=== PATIENT | female | born 1955 | race Caucasian/White ===

== ENCOUNTER 2022-09-15 17:52 | Inpatient (IN) | payer OTHER ==
[2022-09-15 18:30] LABS: Absolute Lymphocytes (CBC) 1.2 K/uL (0.7-4.9); Lymphocytes % 11.6 % (15.3-44.8); MCV 96.9 fL (80-100); MPV 9.4 fL (7.6-11.3)
[2022-09-15 18:31] LABS: Protime INR 0.99
--- NOTE | 2022-09-15 18:42 | RAD REPORT ---
EXAM DESCRIPTION: RAD - Chest Single View - 09/15/2022 6:25 pm CLINICAL HISTORY: COUGH COMPARISON: None TECHNIQUE: AP portable chest image was obtained 09/15/2022 6:25 pm . FINDINGS: Lung volumes are low. Bilateral small a moderate sized pleural effusions are present obscu ring the heart borders and hemidiaphragms. Interstitial opacification is present. Heart size appears to be within range of normal. Upper lobe vasculature also within range of normal. No pneumothorax. No acute bony abnormality seen. No acute aortic findings suspected. IMPRESSION: Small to moderate bilateral pleural effusions with interstitial edema and some patchy al veolar opacification. Pattern is typically failure/volume overload. The heart is not abnormally enlarged and this could be noncardiogenic edema process.
[2022-09-15] MEDS ORDERED: FUROSEMIDE 40 MG/4 ML VIAL ONE (18:49)
[2022-09-15 18:54] LABS: Albumin 3.2 g/dL (3.4-5.0); Bilirubin Direct 0.1 mg/dL (0-0.2); Bilirubin Total 0.4 mg/dL (0.2-1.0); Magnesium 1.9 mg/dL (1.8-2.4); Potassium 4.6 mmol/L (3.5-5.1); Protein, Total 6.3 g/dL (6.4-8.2)
[2022-09-15 18:56] LABS: Troponin High Sensitivity 153.4 pg/mL (<58.9)
[2022-09-15] MEDS ORDERED: FUROSEMIDE 20 MG/ 2ML VIAL ONE (18:59)
--- NOTE | 2022-09-15 19:05 | EDPHYS ---
Physician Documentation [facility] Name: Josselin Rowley Age: 67 yrs Sex: Female : 1955 Arrival Date: 09/15/2022 Time: 17:54 Bed 3 Private MD: Juan Luis Nugent C ED Physician Mj Porter HPI: 09/15 18:32 This 67 yrs old Female presents to ER via Wheelchair with complaints of concepcion Breathing Difficulty, Leg Swelling. 18:32 The patient has shortness of breath at rest, with light activity. Onset: The concepcion symptoms/episode began/occurred 3 day(s) ago. Duration: The symptoms are continuous, and are steadily getting worse. The patient's shortness of breath is aggravated by exertion, light activity, supine position. Associated signs and symptoms: Pertinent positives: non-productive cough, dizziness. Severity of symptoms: At their worst the symptoms were moderate in the emergency department the symptoms are unchanged. The patient has experienced similar episodes in the past, a few times. Historical: - Allergies: 17:57 Sulfa (Sulfonamide Antibiotics); aa5 - PMHx: 17:57 Diabetes mellitus; Kidney problem; Hypertensive disorder; aa5 - Immunization history:: Adult Immunizations unknown. - Social history:: Smoking status: Patient denies any tobacco usage or history of. - Family history:: not pertinent. ROS: 18:35 Constitutional: Negative for fever, chills, and weight loss, Eyes: Negative for injury, concepcion pain, redness, and discharge, ENT: Negative for injury, pain, and discharge, Neck: Negative for injury, pain, and swelling, Abdomen/GI: Negative for abdominal pain, nausea, vomiting, diarrhea, and constipation, Back: Negative for injury and pain, : Negative for injury, bleeding, discharge, and swelling, Skin: Negative for injury, rash, and discoloration, Neuro: Negative for headache, weakness, numbness, tingling, and seizure, Psych: Negative for depression, anxiety, suicide ideation, homicidal ideation, and hallucinations, Allergy/Immunology: Negative for hives, rash, and allergies, Endocrine: Negative for neck swelling, polydipsia, polyuria, polyphagia, and marked weight changes, Hematologic/Lymphatic: Negative for swollen nodes, abnormal bleeding, and unusual bruising. 18:35 Cardiovascular: Positive for edema, palpitations. 18:35 Respiratory: Positive for cough, dyspnea on exertion, orthopnea, shortness of breath, on exertion. 18:35 MS/extremity: Positive for swelling, tenderness. 18:35 Skin: Positive for pallor. Exam: 18:35 Constitutional: This is a well developed, well nourished patient who is awake, alert, concepcion and in no acute distress. Head/Face: Normocephalic, atraumatic. Eyes: Pupils equal round and reactive to light, extra-ocular motions intact. Lids and lashes normal. Conjunctiva and sclera are non-icteric and not injected. Cornea within normal limits. Periorbital areas with no swelling, redness, or edema. ENT: Nares patent. No nasal discharge, no septal abnormalities noted. Tympanic membranes are normal and external auditory canals are clear. Oropharynx with no redness, swelling, or masses, exudates, or evidence of obstruction, uvula midline. Mucous membranes moist. Neck: Trachea midline, no thyromegaly or masses palpated, and no cervical lymphadenopathy. Supple, full range of motion without nuchal rigidity, or vertebral point tenderness. No Meningismus. Chest/axilla: Normal chest wall appearance and motion. Nontender with no deformity. No lesions are appreciated. Cardiovascular: Regular rate and rhythm with a normal S1 and S2. No gallops, murmurs, or rubs. Normal PMI, no JVD. No pulse deficits. Abdomen/GI: Soft, non-tender, with normal bowel sounds. No distension or tympany. No guarding or rebound. No evidence of tenderness throughout. Back: No spinal tenderness. No costovertebral tenderness. Full range of motion. Female : Normal external genitalia. Neuro: Awake and alert, GCS 15, oriented to person, place, time, and situation. Cranial nerves II-XII grossly intact. Motor strength 5/5 in all extremities. Sensory grossly intact. Cerebellar exam normal. Normal gait. Psych: Awake, alert, with orientation to person, place and time. Behavior, mood, and affect are within normal limits. 18:35 ECG was reviewed by the Attending Physician. 18:35 Respiratory: the patient does not display signs of respiratory distress, Respirations: labored breathing, that is mild, Breath sounds: decreased breath sounds, that are moderate, are located in both bases, rhonchi, that are mild, are scattered, stridor, is not appreciated, + upper airway congestion. Respiratory rate: 30 Vital Signs: 17:57 BP 133 / 55; Pulse 81; Resp 34 S; Temp 97.7(TE); Pulse Ox 74% on R/A; Weight 79.38 kg aa5 (R); Height 4 ft. 11 in. (149.86 cm) (R); 17:58 Resp 30 S; Pulse Ox 98% on Non-rebreather mask; aa5 18:00 BP 133 / 50; Pulse 79; Resp 28; Pulse Ox 100% on 15% Non-rebreather mask; mb9 18:30 BP 109 / 71; Pulse 80; Resp 26; Pulse Ox 100% on 15% Non-rebreather mask; mb9 18:53 BP 113 / 69; Pulse 79; Resp 24; Pulse Ox 100% on 15% Non-rebreather mask; mb9 19:00 BP 101 / 63; Pulse 76; Resp 29; Pulse Ox 100% on 15% Non-rebreather mask; mb9 19:32 BP 119 / 58; Pulse 74; Resp 20 A; Pulse Ox 99% on BiPAP; Pain 0/10; aa9 17:57 Body Mass Index 35.35 (79.38 kg, 149.86 cm) aa5 MDM: 17:57 Patient medically screened. concepcion 18:38 Differential diagnosis: Anemia Anxiety Reaction asthma, Bronchitis CHF exacerbation, concepcion Myocardial Infarction pneumonia, Pneumothorax pulmonary edema, reactive airway disease. Antibiotic administration: Not indicated, the patient does not have an appreciated infiltrate. The patient's Wells Deep Vein Thrombosis Score was calculated as follows: Total Score: 0-2 Pts- Low Risk. The patient's pulmonary embolism risk score was calculated as follows: Total Score: 0-2 points. This patient was found to be at low risk for a pulmonary embolism by using the Well's assessment criteria. Immunization status: Pneumococcal vaccine: Influenza vaccine: Data reviewed: vital signs, nurses notes, lab test result(s), EKG, radiologic studies, CT scan, plain films. Data interpreted: surveillance monitor: rate is 30 beats/min, rhythm is regular, Pulse oximetry: on room air is 98 %. Test interpretation: by ED physician or midlevel provider: ECG, plain radiologic studies. Counseling: I had a detailed discussion with the patient and/or guardian regarding: the historical points, exam findings, and any diagnostic results supporting the discharge/admit diagnosis, lab results, radiology results, the need for further work-up and treatment in the hospital. 09/15 18:11 Order name: Basic Metabolic Panel; Complete Time: 18:57 [facility] 09/15 18:11 Order name: CBC with Diff; Complete Time: 18:57 [facility] 09/15 18:11 Order name: LFT's; Complete Time: 18:57 [facility] 09/15 18:11 Order name: Magnesium; Complete Time: 18:57 [facility] 09/15 18:11 Order name: NT PRO-BNP; Complete Time: 18:57 [facility] 09/15 18:11 Order name: PT-INR; Complete Time: 18:57 [facility] 09/15 18:11 Order name: Troponin HS; Complete Time: 18:57 [facility] 09/15 18:11 Order name: XRAY Chest (1 view); Complete Time: 18:57 [facility] 09/15 18:11 Order name: SARS-COV-2 RT PCR (Document "Date of Onset" if Symptomatic); Complete Time: [facility] 20:25 09/15 18:11 Order name: Lipase; Complete Time: 18:57 [facility] 09/15 18:57 Order name: BIPAP [facility] 09/15 18:11 Order name: EKG; Complete Time: 18:12 [facility] 09/15 18:11 Order name: Cardiac monitoring; Complete Time: 18:22 [facility] 09/15 18:11 Order name: EKG - Nurse/Tech; Complete Time: 18:31 [facility] 09/15 18:11 Order name: IV Saline Lock; Complete Time: 18:22 [facility] 09/15 18:11 Order name: Labs collected and sent; Complete Time: 18:22 [facility] 09/15 18:11 Order name: O2 Per Protocol; Complete Time: 18:22 [facility] 09/15 18:11 Order name: O2 Sat Monitoring; Complete Time: 18:22 [facility] 09/15 18:32 Order name: [place]; Complete Time: 18:58 [facility] 09/15 19:19 Order name: CONS Physician Consult EDMS EC:35 Rate is 78 beats/min. Rhythm is regular. QRS [place] is Normal. ID interval is normal. QRS concepcion interval is normal. QT interval is normal. No Q waves. T waves are Normal. No ST changes noted. Clinical impression: NSR w/ Non-specific ST/T Changes and No evidence of ischemia. Interpreted by me. Reviewed by me. Administered Medications: 19:12 Drug: Lasix (furosemide) 40 mg Route: IVP; Site: left antecubital; mb9 19:19 Follow up: Response: No adverse reaction mb9 19:12 CANCELLED (Physician Discretion): Lasix (furosemide) 20 mg IVP once; give over 2 minutesmb9 20:06 Drug: Lovenox (enoxaparin) 40 mg Route: Sub-Q; Site: right lower abdomen; jb4 Disposition Summary: 09/15/22 19:05 Hospitalization Ordered Hospitalization Status: Inpatient Admission concepcion Provider: Juan Luis Nugent cha Location: Telemetry/MedSurg (Inpatient) concepcion Condition: Fair concepcion Problem: new concepcion Symptoms: have improved concepcion Bed/Room Type: Standard concepcion Room Assignment: 208(09/15/22 20:46) vc1 Diagnosis - Dyspnea concepcion - Unspecified combined systolic (congestive) and diastolic (congestive) heart failure concepcion - Hypoxemia concepcion - Acute kidney failure, unspecified concepcion - Anemia, unspecified concepcion - Type 1 diabetes mellitus with hyperglycemia concepcion - Essential (primary) hypertension concepcion - Abnormal serum enzyme level, unspecified - ELEVATED TROPONIN concepcion Forms: - Medication Reconciliation Form concepcion - SBAR form concepcion Signatures: Dispatcher [employer] EDMj Donohue MD MD cha Nieto, Roman, MD MD rn Calderon, Audri, RN RN aa5 Dario Delgado RN RN jb4 Pearl Spicer RN RN vc1 Mee Hsu PA-C PA-C sb4 Keeley Preston RN RN mb9 Corrections: (The following items were deleted from the chart) 19:12 18:57 Lasix (furosemide) 20 mg IVP once; give over 2 minutes ordered. concepcion mb9 20:46 19:05 concepcion vc1
--- NOTE | 2022-09-15 19:05 | ER ---
Nurse's Notes [facility] Name: Josselin Rowley Age: 67 yrs Sex: Female : 1955 Arrival Date: 09/15/2022 Time: 17:54 Bed 3 Private MD: Juan Luis Nugent C Diagnosis: Dyspnea;Unspecified combined systolic (congestive) and diastolic (congestive) heart failure;Hypoxemia;Acute kidney failure, unspecified;Anemia, unspecified;Type 1 diabetes mellitus with hyperglycemia;Essential (primary) hypertension;Abnormal serum enzyme level, unspecified-ELEVATED TROPONIN Presentation: 09/15 17:57 Acuity: DAVID 1 aa5 17:57 Chief complaint: Patient states: SOB "for a few days", pt states "I saw Dr. Nugent a few aa5 days ago and he put me on Lasix". Pt 74% O2 sat. Pt reports slight dry cough, denies fever. Swelling to christiana legs noted. Coronavirus screen: shortness of breath. Ebola Screen: Patient denies travel to an Ebola-affected area in the 21 days before illness onset. Initial Sepsis Screen: Does the patient meet any 2 criteria? No. Patient's initial sepsis screen is negative. Does the patient have a suspected source of infection? No. Patient's initial sepsis screen is negative. Risk Assessment: Do you want to hurt yourself or someone else? Patient reports no desire to harm self or others. Onset of symptoms was September 2022. 17:57 Method Of Arrival: Wheelchair aa5 Historical: - Allergies: 17:57 Sulfa (Sulfonamide Antibiotics); aa5 - PMHx: 17:57 Diabetes mellitus; Kidney problem; Hypertensive disorder; aa5 - Immunization history:: Adult Immunizations unknown. - Social history:: Smoking status: Patient denies any tobacco usage or history of. - Family history:: not pertinent. Screenin:47 Abuse screen: Denies threats or abuse. Nutritional screening: No deficits noted. vc1 Tuberculosis screening: No symptoms or risk factors identified. Fall Risk None identified. Assessment: 18:00 General: Appears distressed, uncomfortable, Behavior is cooperative, appropriate for mb9 age, anxious. 18:00 Pain: Denies pain. Neuro: Level of Consciousness is awake, alert, obeys commands, mb9 Oriented to person, place, time, situation, Appropriate for age Plater Supervisor are equal bilaterally. Cardiovascular: Reports fatigue, shortness of breath, Heart tones S1 S2 present Rhythm is regular Chest pain is denied. Respiratory: Airway is patent Respiratory effort is labored, Respiratory pattern is tachypnea Breath sounds are clear bilaterally. Parent/caregiver reports the patient having shortness of breath cough that is since the past couple days. GI: Abdomen is round Bowel sounds present X 4 quads. Abd is soft and non tender X 4 quads. Reports nausea. : No signs and/or symptoms were reported regarding the genitourinary system. EENT: No signs and/or symptoms were reported regarding the EENT system. Derm: Skin is intact, Skin is clammy, Skin is pale, Skin temperature is cool. Musculoskeletal: Range of motion: intact in all extremities. 18:00 Reassessment: pt placed on non-rebreather 15 L/min. mb9 19:06 Reassessment: RT at bedside placing pt on bipap. 9 19:18 Reassessment: gave report to oncoming nurse EMMA Pollock. mb9 19:28 General: Appears uncomfortable, obese, Behavior is calm, cooperative, appropriate for aa9 age. Pain: Denies pain. Neuro: Level of Consciousness is awake, alert, obeys commands, Oriented to person, place, time, situation, Appropriate for age. Cardiovascular: Patient's skin is warm and dry. Edema is 1+ to left midcalf, left ankle, left foot, left toes, right midcalf, right ankle, right foot and right toes. Respiratory: Airway is patent Respiratory effort is even, unlabored, Patient placed on BiPAP:. GI: Abdomen is obese. : Corado in place. EENT: No signs and/or symptoms were reported regarding the EENT system. Derm: Skin is intact. Musculoskeletal: Range of motion: intact in all extremities. Vital Signs: 17:57 BP 133 / 55; Pulse 81; Resp 34 S; Temp 97.7(TE); Pulse Ox 74% on R/A; Weight 79.38 kg aa5 (R); Height 4 ft. 11 in. (149.86 cm) (R); 17:58 Resp 30 S; Pulse Ox 98% on Non-rebreather mask; aa5 18:00 BP 133 / 50; Pulse 79; Resp 28; Pulse Ox 100% on 15% Non-rebreather mask; mb9 18:30 BP 109 / 71; Pulse 80; Resp 26; Pulse Ox 100% on 15% Non-rebreather mask; mb9 18:53 BP 113 / 69; Pulse 79; Resp 24; Pulse Ox 100% on 15% Non-rebreather mask; mb9 19:00 BP 101 / 63; Pulse 76; Resp 29; Pulse Ox 100% on 15% Non-rebreather mask; mb9 19:32 BP 119 / 58; Pulse 74; Resp 20 A; Pulse Ox 99% on BiPAP; Pain 0/10; aa9 17:57 Body Mass Index 35.35 (79.38 kg, 149.86 cm) aa5 ED Course: 17:54 Patient arrived in ED. am2 17:55 Juan Luis Nugent MD is Private Physician. am2 17:57 Mj Porter MD is Attending Physician. concepcion 17:57 Arm band placed on. aa5 17:57 Patient has correct armband on for positive identification. Placed in gown. Bed in low aa5 position. Call light in reach. Side rails up X2. Client placed on continuous cardiac and pulse oximetry monitoring. NIBP monitoring applied. 18:21 Triage completed. aa5 18:21 Keeley Preston, RN is Primary Nurse. mb9 18:21 Inserted saline lock: 20 gauge in left antecubital area, using aseptic technique. Blood mb9 collected. 18:22 Basic Metabolic Panel Sent. mb9 18:22 CBC with Diff Sent. mb9 18:22 LFT's Sent. mb9 18:22 Magnesium Sent. mb9 18:22 NT PRO-BNP Sent. mb9 18:22 PT-INR Sent. mb9 18:22 Troponin HS Sent. mb9 18:22 Lipase Sent. mb9 18:27 XRAY Chest (1 view) In Process Unspecified. EDMS 18:37 EKG done, by ED staff, reviewed by Mj Porter MD. mb9 19:01 Corado cath inserted, using sterile technique, 16 Fr., by ak, balloon inflated, to mb9 gravity drainage, clamped. returned clear yellow urine. Patient tolerated well. 19:03 Juna Luis Nugent MD is Hospitalizing Provider. concepcion 19:19 SARS-COV-2 RT PCR (Document "Date of Onset" if Symptomatic) Sent. mb9 19:19 BIPAP Sent. 9 21:47 No provider procedures requiring assistance completed. Patient admitted, IV remains in vc1 place. Administered Medications: 19:12 Drug: Lasix (furosemide) 40 mg Route: IVP; Site: left antecubital; mb9 19:19 Follow up: Response: No adverse reaction 9 19:12 CANCELLED (Physician Discretion): Lasix (furosemide) 20 mg IVP once; give over 2 minutes9 20:06 Drug: Lovenox (enoxaparin) 40 mg Route: Sub-Q; Site: right lower abdomen; jb4 Medication: 21:48 VIS not applicable for this client. 1 Outcome: 19:05 Decision to Hospitalize by Provider. concepcion 21:47 Admitted to Med/surg accompanied by tech, via stretcher, room 208, Report called to 1 EMMA Vargas 21:47 Condition: good 21:47 Instructed on the need for admit. 21:48 Patient left the ED. [facility] Signatures: Dispatcher [employer] EDMS Mj Porter MD MD cha Calderon, Audri, RN RN connie5 Dario Delgado RN RN jb4 Lima Moreira Vanessa, RN RN vc1 Maia Brice RN RN connie9 Keeley Preston RN RN mb9 Corrections: (The following items were deleted from the chart) 18:28 17:54 Chief complaint: Patient states: SOB "for a few days", pt states "I saw Dr. Jovanna sood a few days ago and he put me on Lasix". Pt 74% O2 sat. aa5 18:31 17:54 Acuity: DAVID 1 aa5 aa5 18:31 17:54 Chief complaint: Patient states: SOB "for a few days", pt states "I saw Dr. Jovanna sood a few days ago and he put me on Lasix". Pt 74% O2 sat. Pt reports slight dry cough, denies fever. Swelling to christiana legs noted. aa5 18:31 17:54 Risk Assessment: Do you want to hurt yourself or someone else? Patient reports no aa5 desire to harm self or others. aa5 18:31 17:54 Initial Sepsis Screen: Does the patient meet any 2 criteria? No. Patient's aa5 initial sepsis screen is negative. Does the patient have a suspected source of infection? No. Patient's initial sepsis screen is negative. [facility] 18: 17:54 Onset of symptoms was September 2022 [place] [id number] : 17:54 Ebola Screen: Patient denies travel to an Ebola-affected area in the 21 days [facility] before illness onset. [facility] 18: 17:54 Coronavirus screen: shortness of breath, [place] [id number] 18: 17:54 Method Of Arrival: Wheelchair [place] [id number] 18: 17:54 BP 133 / 55; Pulse 81bpm; Resp 34bpm; Spontaneous; Pulse Ox 74% RA; Temp 97.7F [facility] Temporal; 79.38 kg Reported; Height 4 ft. 11 in. Reported; BMI: 35.3; [facility] : 17:55 Resp 30bpm; Spontaneous; Pulse Ox 98% Non-rebreather mask; [place] [address] 18: 17:57 Resp 30bpm; Spontaneous; Pulse Ox 98% Non-rebreather mask; [place] [address] 19:04 19:01 General: Appears distressed, uncomfortable, Behavior is cooperative, appropriate mb9 for age, anxious, mb9 19:06 19:01 General: Appears distressed, uncomfortable, Behavior is cooperative, appropriate mb9 for age, anxious, mb9 19: 19:02 Pain: Denies pain. mb9 mb9 19: 19:02 Neuro: Level of Consciousness is awake, alert, obeys commands, Oriented to mb9 person, place, time, situation, Appropriate for age Plater Supervisor are equal bilaterally mb9 19: 19:02 Cardiovascular: Heart tones S1 S2 present Rhythm is regular Chest pain is denied mb9 mb9 19:06 19:02 Respiratory: Airway is patent Respiratory effort is labored, Respiratory pattern mb9 is tachypnea Breath sounds are clear bilaterally. Parent/caregiver reports the patient having shortness of breath cough that is since the past couple days mb9 19: 19:02 GI: Abdomen is round Bowel sounds present X 4 quads. Abd is soft and non tender X mb9 4 quads. Reports nausea, mb9 19: 19:02 : No signs and/or symptoms were reported regarding the genitourinary system. [id number] 19: 19:02 EENT: No signs and/or symptoms were reported regarding the EENT system. [place] [address] 19:02 Derm: Skin is intact, Skin is clammy, Skin is pale, Skin temperature is cool [place] [address] 19:02 Musculoskeletal: Range of motion: intact in all extremities, [place] [address] 18:00 Cardiovascular: Heart tones S1 S2 present Rhythm is regular Chest pain is denied [place] [id number]
[2022-09-15] MEDS ORDERED: ENOXAPARIN 40 MG/0.4 ML SQ ONE (20:04)
[2022-09-15] MEDS ORDERED: ALBUTEROL 2.5 MG/3 ML NEB SOL NEB PRN (22:32)
[2022-09-15] MEDS ORDERED: GLUCAGON 1 MG/VIAL IM PRN (22:32)
[2022-09-15] MEDS: lisinopriL 5 MG TAB PO SCH (22:32)
[2022-09-15] MEDS ORDERED: ACETAMINOPHEN 500 MG TAB PO PRN (22:32)
[2022-09-15] MEDS: INSULIN -REGULAR HUMAN 50 UNIT/0.5 ML ML SQ SCH (22:32)
[2022-09-15] MEDS ORDERED: D50W 25 GM/50 ML SYRINGE IV PRN (22:32)
[2022-09-15] MEDS ORDERED: IPRATROPIUM BROM 0.5MG/2.5ML NEB PRN (22:32)
[2022-09-15] MEDS ORDERED: D10W 125 ML IV PRN (22:47)
[2022-09-15] MEDS ORDERED: FAMOTIDINE 20 MG/2 ML VIAL IV ONE (23:00)
[2022-09-16] MEDS: ACETAMINOPHEN 325 MG TABLET PO PRN ×2 (00:09→21:17)
[2022-09-16 04:11] LABS: Absolute Lymphocytes (CBC) 1.3 K/uL (0.7-4.9); Hematocrit 29.1 % (36.0-45.0); Lymphocytes % 13.7 % (15.3-44.8); MCV 97.7 fL (80-100); RBC Red Blood Cell Count 2.98 M/uL (3.86-4.86)
[2022-09-16 04:26] LABS: Potassium 4.5 mmol/L (3.5-5.1)
[2022-09-16] MEDS: carvediloL 12.5 MG TAB PO SCH ×2 (06:00→17:27)
[2022-09-16] MEDS: INSULIN -REGULAR HUMAN 50 UNIT/0.5 ML ML SQ SCH ×4 (07:30→21:00)
[2022-09-16 07:48] LABS: Ferritin 37.1 ng/mL (8-388); Folic Acid, (Folate) 16.4 ng/mL (3.1-17.5); Thyroid Stimulating Hormone 1.89 uIU/mL (0.360-3.740)
[2022-09-16 07:51] LABS: Troponin High Sensitivity 690.9 pg/mL (<58.9)
--- NOTE | 2022-09-16 07:55 | RAD REPORT ---
EXAM DESCRIPTION: RAD - Chest Single View - 09/16/2022 6:37 am CLINICAL HISTORY: Chest Pain COMPARISON: Portable 09/15/2022 TECHNIQUE: AP portable chest image was obtained 09/16/2022 6:37 am . FINDINGS: Lung volumes remain low. Bilateral pleural effusions are still present. Interstitial edema or infiltrate pattern has improved. Heart size remains normal range. No pneumothorax. IMPRESSION: Interval decrease in the interstitial edema or infiltrate pattern seen on prior day imag ing. Bilateral pleural effusions remain.
[2022-09-16] MEDS ORDERED: FAMOTIDINE 20 MG/2 ML VIAL IV SCH (09:00)
[2022-09-16] MEDS ORDERED: FUROSEMIDE 20 MG/ 2ML VIAL IV SCH (09:00)
[2022-09-16] MEDS: lisinopriL 5 MG TAB PO SCH ×2 (09:05→21:14)
[2022-09-16] MEDS: ENOXAPARIN 30 MG/0.3 ML SQ SCH (09:05)
[2022-09-16] MEDS: POTASSIUM 25 MEQ EFFERV TAB PO SCH (09:05)
[2022-09-16] MEDS: FUROSEMIDE 40 MG/4 ML VIAL IV SCH ×2 (09:05→16:39)
[2022-09-16] MEDS: AMLODIPINE 5 MG TAB PO SCH (09:05)
[2022-09-16] MEDS ORDERED: ASPIRIN EC 81 MG TAB PO ONE (11:22)
--- NOTE | 2022-09-16 14:15 | EKG ---
Test Date: 2022-09-16 Test Time: 09:21:50 [employer] Head: LULY MEASUREMENT RESULTS: Intervals: Rate: 79 PA: 124 QRSD: 82 QT: 370 QTc: 424 [place]: P: 53 PA: 124 QRS: 48 T: 36 INTERPRETIVE STATEMENTS: Normal sinus rhythm Nonspecific ST and T wave abnormality Abnormal ECG Compared to ECG 09/15/2022 18:32:10 No significant changes Electronically Signed On 09-16-22 14:14:58 CDT by Jaxson Grover
--- NOTE | 2022-09-16 14:17 | EKG ---
Test Date: 2022-09-15 Test Time: 18:32:10 Contact Center Director: MB MEASUREMENT RESULTS: Intervals: Rate: 78 NH: 136 QRSD: 82 QT: 388 QTc: 442 [place]: P: 52 NH: 136 QRS: 52 T: 35 INTERPRETIVE STATEMENTS: Normal sinus rhythm Nonspecific ST and T wave abnormality Abnormal ECG Compared to ECG 02/24/2009 09:27:15 ST (T wave) deviation now present Electronically Signed On 09-16-22 14:16:14 CDT by Jaxson Grover
[2022-09-16] MEDS ORDERED: IPRATROPIUM BROM 0.5MG/2.5ML NEB PRN (15:00)
[2022-09-16] MEDS ORDERED: ALBUTEROL 2.5 MG/3 ML NEB SOL NEB PRN (15:00)
[2022-09-16] MEDS: ATORVASTATIN 80 MG TAB PO SCH (21:14)
[2022-09-17 06:05] LABS: Magnesium 2.3 mg/dL (1.8-2.4); Potassium 4.1 mmol/L (3.5-5.1)
[2022-09-17 06:08] LABS: Troponin High Sensitivity 529.9 pg/mL (<58.9)
[2022-09-17] MEDS: carvediloL 12.5 MG TAB PO SCH ×2 (06:08→17:04)
--- NOTE | 2022-09-17 06:54 | ECHO ---
HEIGHT: 4 ft 11 in WEIGHT: 175 lb 0 oz DATE OF STUDY: 09/16/[address]: Mj Porter MD 2-DIMENSIONAL: YES M.MODE: YES DOPPLER: YES COLOR FLOW: YES TDS: PORTABLE: YES DEFINITY: BUBBLE STUDY: DIAGNOSIS: CONGESTIVE HEART FAILURE CARDIAC HISTORY: CATHERIZATION: SURGERY: PROSTHETIC VALVE: PACEMAKER: MEASUREMENTS (cm) DIASTOLIC (NORMALS) SYSTOLIC (NORMALS) IVSd 1.1 (0.6-1.2) LA Diam 3.9 (1.9-4.0) LVEF 59% LVIDd 4.5 (3.5-5.7) LVIDs 3.1 (2.0-3.5) %FS 31% LVPWd 1.1 (0.6-1.2) Ao Diam 2.5 (2.0-3.7) 2 DIMENSIONAL ASSESSMENT: RIGHT ATRIUM: NORMAL LEFT ATRIUM: ENLARGED RIGHT VENTRICLE: NORMAL LEFT VENTRICLE: NORMAL TRICUSPID VALVE: NORMAL MITRAL VALVE: MODERATE MITRAL REGURGITATION PULMONIC VALVE: NORMAL AORTIC VALVE: NORMAL PERICARDIAL EFFUSION: NONE AORTIC ROOT: NORMAL LEFT VENTRICULAR WALL MOTION: NORMAL DOPPLER/COLOR FLOW: SEE BELOW COMMENTS: NORMAL LEFT VENTRICULAR EJECTION FRACTION 55-60% WITH NORMAL WALL MOTION. LEFT ATRIAL ENLARGEMENT. MODERATE MITRAL REGURGITATION. MODERATE DIASTOLIC DYSFUNCTION. TECHNOLOGIST: MIRZA LOPEZ
[2022-09-17] MEDS: INSULIN -REGULAR HUMAN 50 UNIT/0.5 ML ML SQ SCH ×4 (07:30→20:23)
[2022-09-17] MEDS: POTASSIUM 25 MEQ EFFERV TAB PO SCH (08:43)
[2022-09-17] MEDS: FUROSEMIDE 40 MG/4 ML VIAL IV SCH ×2 (08:43→17:04)
[2022-09-17] MEDS: ASPIRIN EC 81 MG TAB PO SCH (08:43)
[2022-09-17] MEDS: AMLODIPINE 5 MG TAB PO SCH (08:44)
[2022-09-17] MEDS: lisinopriL 5 MG TAB PO SCH ×2 (08:44→20:18)
[2022-09-17] MEDS: ENOXAPARIN 30 MG/0.3 ML SQ SCH (08:45)
--- NOTE | 2022-09-17 14:00 | PN ---
Date of Progress Note: 09/17/2022 Subjective: Patient was seen this morning for followup. No new complaints, problems reported by her . She was on BiPAP all night until this morning. It was changed to nasal cannula oxygen and when I saw her, she was on 5 L/minute nasal cannula oxygen. She was maintaining adequate oxygenation around 95% to 96% while I was in the room with her. Patient overall feels better. She has a Corado cathete r, which is draining clear yellow urine. Objective: Vital Signs: Reviewed. HEENT: Unremarkable. Lungs: Bilateral good equal air entry with diminished air entry in the lower lung merlos, not using any accessory muscles of respiration. Heart: Sounds normal. Abdomen: Soft. Bowel sounds normal. No guarding, rigidity, tenderness, distention. Extremities: Bilateral leg edema, less today compared to yesterday. Laboratory Data: Sodium 134, potassium 4.1, chloride 103, bicarb 24, BUN 44, creatinine 2.30. Tropo maria luisa today 529, yesterday was 690. Upon admission was 153. Her triglyceride today 117, total cholest sunny 152, LDL 83, HDL 46. Her vitamin B12 from yesterday was 280, folic acid 16.4. TSH 1.89 and her hemoglobin A1c was 6.5. Echocardiogram shows normal ejection fraction with diastolic dysfunction. Impression: 1.Chronic diastolic heart failure, with acute exacerbation. 2.Acute pulmonary edema. 3.Chronic kidney disease, stage 4. 4.Insulin-dependent diabetes mellitus. 5.Anemia due to chronic kidney disease. 6.Hypertension. Plan: I did review echocardiogram and lab findings with the patient. Her baseline creatinine is asaf und 1.5-1.6 and current hospital admission creatinine is ranging between 2.0-2.3. Her troponin level today looks better compared to yesterday, so we really believe that this is demand ischemia and not necessarily myocardial infarction at this point. We will continue to follow up with tool maker apprentice. Luma matos likely has probably some underlying coronary artery disease in view of her longstanding histor y of diabetes mellitus and other comorbidities including hypertension, hyperlipidemia, and chronic ki dney disease, so we did discuss about all those details today and we talked about 2 different ways to evaluate it. One is to do nuclear stress test, which is not most accurate or 100% sure way to deter mine the extent of the problem which is coronary artery disease that we are concerned about, that daphney ht be safer option for her instead of doing coronary angiogram, which puts her at risk of worsening o f the renal failure, but again decide all details that we have discussed with her today. I did discu ss all those details with Dr. Momin and we will continue to follow with tool maker apprentice to get recomme ndation as the time goes on. We will continue current diuretic therapy. Remove Corado catheter and w e will repeat blood work tomorrow. I will see her tomorrow for followup. GURJIT/MODL Voice ID: [id number] Report ID: [id number]
[2022-09-17] MEDS: ACETAMINOPHEN 325 MG TABLET PO PRN (15:59)
[2022-09-17] MEDS: ONDANSETRON 4 MG/2 ML VIAL IV PRN (15:59)
[2022-09-17] MEDS: ATORVASTATIN 80 MG TAB PO SCH (20:19)
--- NOTE | 2022-09-17 21:20 | CON ---
Date of Consultation: 09/16/2022 Reason For Consultation: Shortness of breath. History Of Present Illness: Ms. Rowley is 67 and has had a history of hypertension, diabetes, and ch ronic renal disease. Came in with congestive heart failure and she follows up with Dr. Nugent for her primary care. She also sees Dr. Gaytan for her renal failure. Came in with dyspnea on exertion. No chest pain reported, some diaphoresis. No nausea or vomiting. Has had some PND, orthopnea, and peda l edema. When I saw her, she had 99% O2 saturation, on CPAP, and she is already feeling better after gentle diuresis. Past Medical History: As stated above. Allergies: BACTRIM. Review of Systems: Negative. Social History: Negative. Family History: Noncontributory. Medications: At home include aspirin, Norvasc, Lipitor, Coreg, and Zestril. Physical Examination: General: She was very pleasant, in no acute distress. Sinus rhythm. Adequate O2 saturation, on gopal al cannula now. HEENT: Negative. Neck: Supple without any bruit, lymphadenopathy, JVD, or thyromegaly. Chest: Reveals some mild crackles. Cardiac: Regular rhythm and rate with S4 gallop. No murmurs or rubs. Abdomen: Benign. Extremities: Trace edema. Diagnostic Data: Showed her EKG was nonspecific. Chest x-ray showed mild failure. Hemoglobin is 9. 8. Sodium is 131. BNP was 11,000. Troponin was 153. Impression And Plan: 1.Acute congestive heart failure on chronic diastolic. Echocardiogram is pending. Continue present regimen. 2.Elevated troponin, probably secondary to demand ischemia from renal failure and congestive heart f ailure. 3.Hyponatremia, secondary to congestive heart failure. 4.Elevated BNP, secondary to congestive heart failure. 5.Mild anemia. 6.Chronic renal disease. 7.Diabetes, controlled. 8.Hypertension. She is presently now on inhalers, Norvasc, Coreg, Lovenox, Lasix, lisinopril, and p otassium. Echocardiogram is pending. I agree with her present regimen. The case was discussed with Dr. Nugent. If her creatinine is greater than 2 to see how she does with diuresis case was discussed with Dr. Nugent. I will continue to follow her. I will see what her echocardiogram shows. NB/NAN Voice ID: [id number] Report ID: [id number]
[2022-09-18 05:59] LABS: Absolute Lymphocytes (CBC) 1.3 K/uL (0.7-4.9); Hematocrit 27.6 % (36.0-45.0); Lymphocytes % 14.5 % (15.3-44.8); MCV 97.9 fL (80-100); MPV 9.3 fL (7.6-11.3); RBC Red Blood Cell Count 2.82 M/uL (3.86-4.86)
[2022-09-18 06:13] LABS: Magnesium 2.1 mg/dL (1.8-2.4); Potassium 4.7 mmol/L (3.5-5.1)
[2022-09-18] MEDS: carvediloL 12.5 MG TAB PO SCH ×2 (06:16→17:00)
[2022-09-18] MEDS: INSULIN -REGULAR HUMAN 50 UNIT/0.5 ML ML SQ SCH ×4 (07:30→20:48)
[2022-09-18] MEDS: ASPIRIN EC 81 MG TAB PO SCH (08:22)
[2022-09-18] MEDS: POTASSIUM 25 MEQ EFFERV TAB PO SCH (08:22)
[2022-09-18] MEDS: FUROSEMIDE 40 MG/4 ML VIAL IV SCH ×2 (08:23→17:00)
[2022-09-18] MEDS: AMLODIPINE 5 MG TAB PO SCH (08:23)
[2022-09-18] MEDS: ENOXAPARIN 30 MG/0.3 ML SQ SCH (08:23)
[2022-09-18] MEDS: lisinopriL 5 MG TAB PO SCH ×2 (08:23→20:44)
[2022-09-18] MEDS ORDERED: METOLAZONE 5 MG TABLET PO SCH (10:00)
[2022-09-18] MEDS: FLUTICASONE 50MCG NASAL SPRAY NAS SCH ×2 (10:13→20:44)
--- NOTE | 2022-09-18 10:57 | PN ---
Date of Progress Note: 09/17/2022 Ms. Rowley is a patient of Dr. Nugent, who came in with acute congestive heart failure, chronic diastol ic. Elevated troponin, presumably secondary to demand ischemia from renal failure and congestive hea rt failure. She also had hyponatremia, anemia, diabetes, hypertension, elevated BNP. Echocardiogram showed normal left ventricular ejection fraction with normal left ventricular size, moderate mitral regurgitation, and moderate diastolic dysfunction. Her ejection fraction was 59%. On 09/17/2022, al l vital signs were stable she was afebrile. Her last glucose was 172. O2 saturation was 94% on the nasal cannula. Creatinine, however, had gone up to 2.3. Her last troponin had come down from 690 to 529. Last medical regimen includes amlodipine, aspirin, Lipitor, Lovenox, Lasix, carvedilol, lisino pril. I will discuss the case further with Dr. Nugent, but I agree with her present regimen for now. Again, we may consider stopping the lisinopril because of her renal function. Again, I feel more com fortable down the road to do a Lexiscan and only do a heart catheterization if it is absolutely neces josue because of her renal function, but I will discuss the case further with Dr. Nugent. She can go ho me whenever it is okay with him. JARRELL/NAN Voice ID: [id number] Report ID: [id number]
--- NOTE | 2022-09-18 12:09 | PN ---
Date of Progress Note: 09/18/2022 Subjective: Patient was seen this morning for followup. No new complaints or problems reported. Reji nixon has not used any BiPAP since night before last. All day yesterday and last night, she remained on nasal cannula oxygen at 5 L/minute. Patient says last night while she was sleeping, respiratory ther apist and nurse woke her up because her oxygen saturation was around 83% and after asking her to take some deep breaths, her oxygen saturation did come back up. This morning when I saw her, she was sit ting in the chair with nasal cannula oxygen at 5 L/minute and throughout the time while I was in the room talking to her, her oxygen saturation has remained anywhere between 95% to 97% Physical Examination: Vital Signs: Reviewed. Weight: Today, her weight is 167 pounds. HEENT: Unremarkable. Lungs: Bilateral good equal air entry. Not using any accessory muscles of respiration. Diminished air entry with rales noted in lower lung merlos unchanged from yesterday. Heart: Sounds normal. Abdomen: Soft. Bowel sounds normal. No guarding, rigidity, tenderness, distention. Extremities: Bilateral leg edema, which is better compared to before. It is now about grade 1 pedal edema and about grade 2 edema of the dorsum feet. Laboratory Data: White count 9, hemoglobin 9.3, platelets 305. Sodium 134, potassium 4.7, chloride 102, bicarb 25, BUN 46, creatinine 2.21, glucose 200. Magnesium 2.1. Impression: 1.Congestive heart failure, chronic, diastolic, with acute exacerbation. 2.Chronic kidney disease, stage 4. 3.Insulin-dependent diabetes mellitus. 4.Hypertension. 5.Hyperlipidemia. 6.Anemia due to chronic kidney disease. 7.Probable coronary artery disease. Plan: We will go ahead and continue to follow with cake knocker. Continue aspirin. Continue curren t Lovenox for DVT prophylaxis. We will discontinue potassium. Continue IV Lasix 40 mg 2 times a day and give 1 dose of metolazone 2.5 mg p.o. x1 dose today. We will see her tomorrow for followup. Po ssible discharge to go home on Tuesday and by that time, we will decide whether she needs to go home w ith oxygen or not. We will repeat blood work tomorrow morning. GURJIT/MODL Voice ID: [id number] Report ID: [id number]
[2022-09-18] MEDS: ACETAMINOPHEN 325 MG TABLET PO PRN (15:49)
[2022-09-18] MEDS: ATORVASTATIN 80 MG TAB PO SCH (20:44)
[2022-09-19] MEDS: ACETAMINOPHEN 325 MG TABLET PO PRN (01:00)
[2022-09-19] MEDS: carvediloL 12.5 MG TAB PO SCH ×2 (05:26→17:13)
[2022-09-19 06:30] LABS: Magnesium 2.3 mg/dL (1.8-2.4); Potassium 4.3 mmol/L (3.5-5.1)
[2022-09-19] MEDS: INSULIN -REGULAR HUMAN 50 UNIT/0.5 ML ML SQ SCH ×4 (07:30→21:00)
[2022-09-19] MEDS: FLUTICASONE 50MCG NASAL SPRAY NAS SCH ×2 (08:19→21:34)
[2022-09-19] MEDS: ENOXAPARIN 30 MG/0.3 ML SQ SCH (08:19)
[2022-09-19] MEDS: lisinopriL 5 MG TAB PO SCH ×2 (08:20→21:38)
[2022-09-19] MEDS: FUROSEMIDE 40 MG/4 ML VIAL IV SCH ×2 (08:20→17:13)
[2022-09-19] MEDS: AMLODIPINE 5 MG TAB PO SCH (08:20)
[2022-09-19] MEDS: ASPIRIN EC 81 MG TAB PO SCH (08:20)
[2022-09-19] MEDS ORDERED: METOLAZONE 5 MG TABLET PO SCH (10:00)
--- NOTE | 2022-09-19 12:38 | PN ---
Date of Progress Note: 09/19/2022 Subjective: Patient was seen this morning for followup. Overall, she feels better. She is on nasal cannula oxygen at 3 L/minute as of yesterday morning and maintaining adequate oxygenation. When I w as in the room visiting her today, her oxygen saturation remained between 97% to 98% on 3 L nasal can nula oxygen. She reports that with fluticasone nasal spray, her nasal congestion problem has improve d. Intake and output records reviewed. Objective: Vital Signs: Reviewed. HEENT: Unremarkable. Lungs: Bilateral good equal air entry. No rales. Diminished air entry in the lung bases, but overa ll lung findings are better than before. Heart: Sounds normal. Abdomen: Soft. Bowel sounds normal. No guarding, rigidity, tenderness, distention. Extremities: Bilateral leg edema, unchanged from yesterday. Laboratory Data: Sodium 133, potassium 4.3, chloride 99, bicarb 27, BUN 48, creatinine 2.35, glucose 204. Magnesium 2.3. Impression: 1.Congestive heart failure, chronic, diastolic, with acute exacerbation. 2.Probable coronary artery disease. 3.Chronic kidney disease, stage 4. 4.Hypertension. 5.Type 1 diabetes mellitus. Plan: We will go ahead and continue current IV Lasix. Patient received 1 dose of metolazone 2.5 mg yesterday and we will give second dose today. Monitor intake, output, daily weight. We will repeat blood work tomorrow morning. I did lower her oxygen from 3 L down to 2 L/minute nasal cannula and in formed nurse that in about an hour or so as long as her oxygen saturation is more than 90%, try to we an off the oxygen today if possible. I will see her tomorrow morning for followup. Our plan is to p ossibly discharge her to go home tomorrow. Patient informed me that she is really not interested in any further cardiac intervention when I started talking to her about concern about underlying coronar y artery disease concerns. I informed her that Dr. Momin is planning to do stress test on an elect smiley outpatient basis, but she tells me that she really does not want to undergo any kind of further c ardiac intervention like stent placement or bypass surgery and I did inform her that obviously, she h as time to think about all those things and if she has normal stress test, that will give us more com fort, but if her stress test comes back abnormal, obviously she is left with 3 choices, one is medica l management trial with medications alone. Second option will be to do cardiac cath, which is defini tely riskier in her case because of the kidney disorder and there is a possibility that IV dye can ca use worsening of the chronic kidney disease including worsening to the extent that may require dialys is, but on other hand, if we do not do any of intervention and if she has underlying significant [place] artery disease and if she does not undergo any intervention like stent placement or bypass surge ry, then that in itself carries a risk of myocardial infarction or sudden cardiac . All these d etails were discussed with her and I informed her that ultimately she is the one who has to decide wh ich treatment she wants to go through and we will have to respect her decision. But, I want her to m deo informed decision and that is why all the details were provided to her today in presence of her kimmie dunlap. I will see her tomorrow for followup. GURJIT/MODL Voice ID: [id number] Report ID: [id number]
[2022-09-19] MEDS: ATORVASTATIN 80 MG TAB PO SCH (21:34)
[2022-09-20] MEDS: ACETAMINOPHEN 325 MG TABLET PO PRN (01:56)
[2022-09-20 04:13] LABS: Magnesium 2.2 mg/dL (1.8-2.4); Potassium 4.1 mmol/L (3.5-5.1)
[2022-09-20] MEDS: carvediloL 12.5 MG TAB PO SCH (06:37)
[2022-09-20] MEDS: ONDANSETRON 4 MG/2 ML VIAL IV PRN (06:38)
[2022-09-20] MEDS: INSULIN -REGULAR HUMAN 50 UNIT/0.5 ML ML SQ SCH ×2 (07:30→11:30)
[2022-09-20] MEDS: AMLODIPINE 5 MG TAB PO SCH (08:06)
[2022-09-20] MEDS: ASPIRIN EC 81 MG TAB PO SCH (08:06)
[2022-09-20] MEDS: ENOXAPARIN 30 MG/0.3 ML SQ SCH (08:06)
[2022-09-20] MEDS: lisinopriL 5 MG TAB PO SCH (08:06)
[2022-09-20] MEDS: FUROSEMIDE 40 MG/4 ML VIAL IV SCH (08:06)
[2022-09-20] MEDS: FLUTICASONE 50MCG NASAL SPRAY NAS SCH (08:07)
--- NOTE | 2022-09-20 08:39 | HP ---
Date of Admission: 09/16/2022 Chief Complaint: Shortness of breath. History Of Present Illness: This is a 67-year-old female patient who came into office on 09/14/2022 with 2 weeks history of leg swelling and about 5 days' history of shortness of breath with activity and at times having shortness of breath at rest as well. Denies any chest pain. After she was evaluated at the office, she was diagnosed as having congestive heart failure problem and I requested her to be admitted to the hospital, but the patient refused, so she was started on Lasix 40 mg daily and plan was to do outpatient workup including echocardiogram, Cardiology consult, and she was advised to come back to see me in 1 week and instruction to go to the emergency room if she feels worse. Yesterday, she called office and reported that she was not feeling any better with her symptoms and she was advised to come to emergency room. After she was evaluated in the ER, she was admitted to the hospital. Her oxygen saturation was in the 80% range in the emergency room and she was started on BiPAP for acute respiratory failure with hypoxia and she was admitted to the hospital. This morning, I saw her and her was present with her at bedside. Allergies: TO SULFA, CAUSING SHORTNESS OF BREATH. Medications: Atorvastatin 40 mg daily at bedtime, amlodipine 10 mg daily, aspirin 81 mg daily, Caltrate plus D 1 tablet 2 times a day, furosemide 40 mg daily, carvedilol 25 mg 2 times a day, NovoLog insulin, lisinopril 5 mg 2 times a day. Review of Systems: Respiratory: As mentioned above. Cardiovascular: As mentioned above. All other systems reviewed and negative. Past Medical History: Significant for glaucoma, diabetic retinopathy, type 1 diabetes diagnosed in 1962 when she was 8 years old, hypertension, hyperlipidemia, peripheral vascular disease, chronic kidney disease with baseline creatinine around 1.5. Past Surgical History: Cataract surgeries and hysterectomy. Family History: Father had diabetes and cancer of esophagus. Mother, heart disease. Social History: Negative for smoking. No alcohol use. Physical Examination: Vital Signs: Height 4 feet 11 inches, weight 175 pounds. Temperature 97.5, pulse 77, respiratory rate 18, blood pressure 136/54, oxygen saturation 97% on 40% FiO2, on BiPAP. General: Awake, alert, oriented, not in distress. HEENT: Head atraumatic, normocephalic. Conjunctivae nonerythematous. Sclerae white. Mouth, no thrush or edema noted. Ears/Nose, no mass, lesion, discharge noted. Neck: Supple. No JVD, lymph nodes, bruit, thyromegaly noted. Lungs: Bilateral good equal air entry. Not using any accessory muscles of respiration. The patient has diminished air entry with some rales in lower lung merlos. Heart: Normal heart sounds, no murmur or gallop. Abdomen: Soft, bowel sounds normal. No guarding, rigidity, tenderness, mass, hepatosplenomegaly, distention, or bruit noted. Extremities: Bilateral 2+ leg edema. Skin: No rash, ulcer, cellulitis. Lymphatics: No lymph node enlargement in neck, supraclavicular, infraclavicular region. Neuro: No focal neurological deficit. Chest: Unremarkable. External Genitalia: Deferred. Rectal: Deferred. Laboratory Data: Yesterday white count 10.10, hemoglobin is 10.5, platelets 354. This morning white count 9.2, hemoglobin 9.8, platelets 320. Yesterday sodium 131, potassium 4.6, chloride 101, bicarb 21, BUN 31, creatinine 2.09, glucose 180. Liver function tests unremarkable. Troponin 153. ProBNP 9603 and this morning, ProBNP 11,102. Sodium 131, potassium 4.5, chloride 100, bicarb 19, BUN 36, creatinine 2.09, glucose 193. Troponin 600. Chest x-ray shows [id number] bilateral pleural effusion with interstitial edema and patchy alveolar opacification. Impression: 1. Pulmonary edema. 2. Congestive heart failure. 3. Chronic kidney disease, stage 4. 4. Anemia due to chronic kidney disease. 5. Hypertension. 6. Type 1 diabetes mellitus with diabetic retinopathy. 7. Type 1 diabetes mellitus with diabetic chronic kidney disease. 8. Hyperlipidemia. 9. Peripheral vascular disease. Plan: We will go ahead and admit the patient to hospital for further evaluation and management of this problem. The patient is appropriate for inpatient and is expected to spend 2 midnights in hospital. We will consult triage nurse, Dr. Momin, and I did discuss details with him. We will continue aspirin. Patient is on Lovenox 40 mg subcutaneous injection daily and at this time, Dr. Momin, will decide further cardiac intervention whether to do cardiac cath or stress test depending on patient's condition, but at this point, he has asked me not to start any Plavix. In case, if patient needs any bypass surgery or any intervention like that, then, she will have to wait for about 10 days in case if she is on Plavix and he does not suggest any higher dose of Lovenox at this point, so we will continue current medical management per order. Continue high- dose statin therapy aspirin, IV Lasix will be given at 40 mg 2 times a day per order. Monitor intake, output, daily weight. We will monitor electrolyte, renal function. Diabetes will be managed with sliding scale insulin. Echo with Doppler will be done. We will follow up on that. I will see her tomorrow for followup. Plan of treatment discussed with her who was at bedside. GURJIT/NAN Voice ID: [id number]
[2022-09-20] MEDS ORDERED: METOLAZONE 2.5 MG TABLET PO SCH (10:00)
[2022-09-20 10:59] VITALS: BMI 34.2
[2022-09-20 12:09] VITALS: BP 117/52; TEMP 97.6
[2022-09-20 13:09] VITALS: O2SAT 92
--- NOTE | 2022-09-21 08:41 | DS ---
Date of Discharge: 09/20/2022 Disposition: Discharged to go home. Physical Examination: HEENT: Unremarkable. Lungs: Clear to auscultation. No wheezing. No rales. Heart: Sounds normal. Abdomen: Soft. Bowel sounds normal. No guarding, rigidity, tenderness, distention. Extremities: Bilateral trace to grade 1 pedal edema. Laboratory Data: Echocardiogram done during this hospitalization shows ejection fraction 59%. Initi al CBC upon admission; white count was 10.10, hemoglobin was 10.5, platelets 354. Last CBC from 03/2022; white count 9, hemoglobin 9.3, platelets 305. Initial chemistry upon admission; sodium 131, potassium 4.6, chloride 101, bicarb 21, BUN 31, creatinine 2.09, glucose 180. Liver function tests u nremarkable. Initial troponin 153.4, second troponin 690.9, third troponin 529.9. Last chemistry to day; sodium 133, potassium 4.1, chloride 98, bicarb 28, BUN 51, creatinine 2.36, glucose 207, magnesi um 2.2. Hospital Course: This is a 67-year-old pleasant female patient, came into emergency room with compla ints of shortness of breath and leg swelling. Please see dictated H and P for more information. Aft er the patient was evaluated in the emergency room, she was admitted to the hospital with congestive heart failure. Her cardiac enzyme was elevated and this cardiac enzyme was followed up and second se t was higher than the first set, but then third set started to show improvement. Cardiology consulta tion was requested. The patient did not have any chest pain and this elevated cardiac enzyme was lik bebo due to demand ischemia. The patient has a history of type 1 diabetes mellitus ever since she was 8 years old and in view of that, she probably does have underlying coronary artery disease and Dr. Angela cat evaluated her at this point. He has suggested medical management and on outpatient basis he w ill do stress test at his office. The patient was started on IV Lasix. Intake, output, and daily we ight were monitored. Overall, her condition has improved, shortness of breath is improved. The mima ent continued to require oxygen replacement therapy and we tried to wean her off the oxygen, but her oxygen saturation as I was talking to her today on room air was going down to as low as 86% while she was sitting and talking to me. Social Service was consulted to make arrangements for home oxygen. Once all these arrangements completed today, she was discharged [facility] medications and instructions. Discharge Medications: 1.Continue all prior home medications except change furosemide 40 mg, take 1 tablet by mouth 2 times a day. 2.Follow up at my office next week. 3.Follow with Dr. Momin in 1-2 weeks. Final Diagnoses: 1.Congestive heart failure, chronic, diastolic, with acute exacerbation. 2.Acute respiratory failure with hypoxia. 3.Probable coronary artery disease. 4.Hypertension. 5.Type 1 diabetes mellitus. 6.Chronic kidney disease, stage 4. 7.Anemia due to chronic kidney disease. 8.Hyponatremia. GURJIT/MODL Voice ID: [id number] Report ID: [id number]
== END 2022-09-20 14:01 | disposition home or self-care (01) | DRG 291 ==
LOC: ER 17:52 → ERHOLD 19:14 → 2ND 22:02
PROVIDERS: ADMIT Internal Medicine; ATTEND Internal Medicine
PROC: 5A09557 Assistance with Respiratory Ventilation, Greater than 96 Consecutive Hours, Continuous Positive Airway Pressure (ICD-10-PCS; principal; 2022-09-15)
DX: I13.0 Hypertensive heart and chronic kidney disease with heart failure and stage 1 through stage 4 chronic kidney disease, or unspecified chronic kidney disease (principal); I50.33 Acute on chronic diastolic (congestive) heart failure; J96.01 Acute respiratory failure with hypoxia; N17.9 Acute kidney failure, unspecified; E87.1 Hypo-osmolality and hyponatremia; N18.4 Chronic kidney disease, stage 4 (severe); I24.8 Other forms of acute ischemic heart disease; E10.22 Type 1 diabetes mellitus with diabetic chronic kidney disease; E10.319 Type 1 diabetes mellitus with unspecified diabetic retinopathy without macular edema; E10.51 Type 1 diabetes mellitus with diabetic peripheral angiopathy without gangrene; E10.69 Type 1 diabetes mellitus with other specified complication; E78.5 Hyperlipidemia, unspecified; I25.10 Atherosclerotic heart disease of native coronary artery without angina pectoris; D63.1 Anemia in chronic kidney disease; R77.8 Other specified abnormalities of plasma proteins; Z88.1 Allergy status to other antibiotic agents; Z79.4 Long term (current) use of insulin; Z79.82 Long term (current) use of aspirin; Z79.899 Other long term (current) drug therapy; Z90.710 Acquired absence of both cervix and uterus; Z20.822 Contact with and (suspected) exposure to COVID-19
CPT/HCPCS: 36415; 51702; 71045; 80048; 80061; 80076; 82607; 82728; 82746; 83036; 83540; 83690; 83735; 83880; 84132; 84443; 84466; 84484; 85025; 85610; 93005; 93306; 94660; 94760; 96372; 96374; 99291; J1650; J1940; J2405; U0003

== ENCOUNTER 2022-10-07 08:15 | Inpatient (IN) | payer OTHER ==
--- OUTSIDE RECORDS SUMMARY | 2022-10-07 08:20 | XMS REPORT | Continuity of Care Document ---
:1955 Author Organization [facility] t Address [address] [place] [address] [address]. [address] [place] [address] Care Team Providers Name Role Phone Benito Nugent Corby Primary Care Physician Alessandro Yeboah MD Attending Clinician Doctor Unassigned, [place] Attending Clinician Unavailable ALESSANDRO YEBOAH Attending Clinician Unavailable [facility]- DNP, Sylvester Coker Attending Clinician [phone] Elida ADEN, Paty Mitchell Attending Clinician Unavailable Payers Payer Name Policy Type Policy Number Effective Date Expiration Date S ource [facility] - [id number] 2012 00:00:00 OUT OF STATE Problems Condition Condition Condition Status Onset Resolution Last Treating Co mments Source Name Details Category Date Date Treatment Clinician Date Hypoglycem Hypoglycem Disease Active U nivers ia ia 9-28 ity of 00:00: [address] Vitamin D Vitamin D Disease Active Uni vers deficiency deficiency 2-20 it y of 00:00: [address] Insulin Insulin Disease Active 2015-11 Univers pump pump 2-05 ity of titration titration 00:00: [facility] [address] [place] [address] Insulin Insulin Disease Active 2015-11 Univers pump pump 2-05 ity of status status 00:00: [address] CKD CKD Disease Active 2015-11 Univers (chronic (chronic 2-05 ity of kidney kidney 00:00: [place] disease) disease) 00 Medica l stage 3, stage 3, Branch GFR 30-59 GFR 30-59 ml/min ml/min Hyperkalem Hyperkalem Disease Active 2015-11 U nivers ia ia 2-05 ity of 00:00: [place] 00 Medical Branch CKD CKD Disease Active Univers (chronic (chronic 9-29 ity of kidney kidney 00:00: [place] disease) disease) 00 Medica l Branch Cough Cough Disease Active Univers 3-02 ity of 00:00: [place] 00 Medical Branch Renal Renal Disease Active Univers insufficie insufficie 5-13 it y of ncy ncy 00:00: [place] 00 Medical Branch Diabetes Diabetes Disease Active Overview: Un krishan mellitus mellitus 18 Formattin ity of with with 00:00: g of this [place] background background 00 note Me dical retinopath retinopath might be Branch y y different from the original. ICD10 Diagnosis Term Test Skein Winder Utility Type I Type I Disease Active Overview: Univer s diabetes diabetes 08-01 Formattin ity of mellitus mellitus 00:00: g of this [place] as with with 00 note Medical ophthalmic ophthalmic might be Branch manifestat manifestat different ions, ions, from the uncontroll uncontroll original. ed ed Dx in 1961 Essential Essential Disease Active Uni vers hypertensi hypertensi it y of on, benign [place], benign [place] [facility] HLD HLD Disease Active Overview: Univer s (hyperlipi (hyperlipi Formattin ity of demia) demia) g of this [place] note Medical might be Branch different from the original. ICD10 Diagnosis Term Test Skein Winder Utility Allergies, Adverse Reactions, Alerts Allergy Allergy Status Severity Reaction(s) Onset Inactive Treating Comm ents Source Name Type Date Date Clinician Codeine Propensi Active Nausea Only Un krishan ty to 9-18 ity of adverse 00:00: [place] reaction 00 Medical s Branch Sulfa Propensi Active Shortness of swelling Univers (Sulfona ty to Breath -18 ity of mide adverse 00:00: [place] Antibiot reaction 00 Medica l ics) s Branch Social History Social Habit Start Date Stop Date Quantity Comments Source Exposure to 2022-05-30 2022-06-09 Not sure University of SARS-CoV-2 00:00:00 09:09:00 [place] [facility] (event) Branch Alcohol intake 2022-06-09 2022-06-09 Current University of 00:00:00 00:00:00 non-drinker of [facility] alcohol (finding) [place] Tobacco use and 2022-06-09 2022-06-09 Smokeless tobacco Un iversity of exposure 00:00:00 00:00:00 non-user [facility] History of 1994-08-01 Cigarette Smoker Universi ty of tobacco use 00:00:00 [facility] Sex [birth year] Universit y of 00:00:00 00:00:00 [facility] Smoking Status Start Date Stop Date Source Ex-smoker 2022-06-09 00:00:00 2022-06-09 00:00:00 [facility] Medications Ordered Filled Start Stop Current Ordering Indication Dosage Frequency Signature Comments Components Source Medication Medication Date Date Medication? Clinician (SIG) Name Name insulin 2021-11 Yes [id number] USE IN [facility] ers aspart 0-17 INSULIN ity of RAPID 00:00: PUMP, [facility] (NOVOLOG 00 TO 50 Medical U-100 UNITS [place] INSULIN DAILY ASPART) 100 unit/mL injection insulin 2021-11 Yes [id number] USE IN [facility] ers aspart 0-17 INSULIN ity of RAPID 00:00: PUMP, [facility] (NOVOLOG 00 TO 50 Medical U-100 UNITS [place] INSULIN DAILY ASPART) 100 unit/mL injection insulin Yes 1{each} inject 1 Uni vers pump 8-10 Each under ity of cart,auto,B 00:00: [place] [facility] 00 SEE-INSTRU Medical (OMNIPOD 5 CTIONS. Branch G6 INTRO KIT, GEN 5,) Crtg insulin Yes 1{each} inject 1 Uni vers pump 8-10 Each under ity of cart,automa 00:00: [place] merlene,BT 00 every 72 Medical (OMNIPOD 5 (seventy-t Bra nch G6 POD, GEN wo) hours. 5,) Crtg insulin Yes 1{each} inject 1 Uni vers pump 8-10 Each under ity of cart,auto,B 00:00: the skin [place] [facility] 00 SEE-INSTRU Medical (OMNIPOD 5 CTIONS. Branch G6 INTRO KIT, GEN 5,) Crtg insulin Yes 1{each} inject 1 Uni vers pump 8-10 Each under ity of cart,automa 00:00: [place] merlene,BT 00 every 72 Medical (OMNIPOD 5 (seventy-t Bra nch G6 POD, GEN wo) hours. 5,) Crtg insulin Yes 1{each} inject 1 Uni vers pump 8-10 Each under ity of cart,auto,B 00:00: the skin [place] [facility] 00 SEE-INSTRU Medical (OMNIPOD 5 CTIONS. Branch G6 INTRO KIT, GEN 5,) Crtg insulin Yes 1{each} inject 1 Uni vers pump 8-10 Each under ity of cart,automa 00:00: [place] skin [place] merlene,BT 00 every 72 Medical (OMNIPOD 5 (seventy-t Bra sdh G6 POD, GEN wo) hours. 5,) Crtg insulin Yes 1{each} inject 1 Uni vers pump 8-10 Each under ity of cart,auto,B 00:00: the skin [place] [facility] 00 SEE-INSTRU Medical (OMNIPOD 5 CTIONS. Branch G6 INTRO KIT, GEN 5,) Crtg insulin Yes 1{each} inject 1 Uni vers pump 8-10 Each under ity of cart,automa 00:00: [place] skin [place] emrlene,BT 00 every 72 Medical (OMNIPOD 5 (seventy-t Bra sdh G6 POD, GEN wo) hours. 5,) Crtg insulin Yes 1{each} inject 1 Uni vers pump 8-10 Each under ity of cart,auto,B 00:00: the skin [place] [facility] 00 SEE-INSTRU Medical (OMNIPOD 5 CTIONS. Branch G6 INTRO KIT, GEN 5,) Crtg insulin Yes 1{each} inject 1 Uni vers pump 8-10 Each under ity of cart,automa 00:00: the skin [place] merlene,BT 00 every 72 Medical (OMNIPOD 5 (seventy-t Bra nch G6 POD, GEN wo) hours. 5,) Crtg FREESTYLE Yes [id number] 1{each} Apply 1 Univers FABIENNE 2 7-27 Each to ity of SENSOR Kit 00:00: skin every [place] 00 14 Medical (fourteen) Branch days. Dx E11.65 FREESTYLE 2021-0 Yes [id number] 1{each} Apply 1 Univers FABIENNE 2 7-27 Each to ity of SENSOR Kit 00:00: skin every [place] 00 14 Medical (fourteen) Branch days. Dx E11.65 FREESTYLE 2021-0 Yes [id number] 1{each} Apply 1 Univers FABIENNE 2 7-27 Each to ity of SENSOR Kit 00:00: skin every [place] 00 14 Medical (fourteen) Branch days. Dx E11.65 FREESTYLE 2022-0 Yes [id number] 1{each} Apply 1 Univers FABIENNE 2 7-27 Each to ity of SENSOR Kit 00:00: skin every [place] 00 14 Medical (fourteen) Branch days. Dx E11.65 FREESTYLE 2021-0 Yes [id number] 1{each} Apply 1 Univers FABIENNE 2 7-27 Each to ity of SENSOR Kit 00:00: skin every [place] 00 14 Medical (fourteen) Branch days. Dx E11.65 insulin 2021-0 Yes [id number] USE IN Univ ers aspart 4-26 INSULIN ity of RAPID 00:00: PUMP, UP [place] (NOVOLOG 00 TO 50 Medical U-100 UNITS Branch INSULIN DAILY ASPART) 100 unit/mL injection insulin 2021-0 Yes [id number] USE IN Univ ers aspart 4-26 INSULIN ity of RAPID 00:00: PUMP, UP [place] (NOVOLOG 00 TO 50 Medical U-100 UNITS Branch INSULIN DAILY ASPART) 100 unit/mL injection insulin 2021-0 Yes [id number] USE IN Univ ers aspart 4-26 INSULIN ity of RAPID 00:00: PUMP, UP [place] (NOVOLOG 00 TO 50 Medical U-100 UNITS Branch INSULIN DAILY ASPART) 100 unit/mL injection insulin 2021-0 Yes [id number] USE IN Univ ers aspart 4-26 INSULIN ity of RAPID 00:00: PUMP, UP [place] (NOVOLOG 00 TO 50 Medical U-100 UNITS Branch INSULIN DAILY ASPART) 100 unit/mL injection insulin 2021-0 2021- No [id number] USE IN Uni vers aspart 4-26 10-17 INSULIN ity of RAPID 00:00: 00:00 PUMP, UP [place] (NOVOLOG 00 :00 TO 50 Medical U-100 UNITS Branch INSULIN DAILY ASPART) 100 unit/mL injection blood sugar 2020-11 Yes [id number] USE Univers diagnostic 2-07 DIRECTED ity o f (FREESTYLE 00:00: [place] TEST) strip 00 [facility] blood sugar 2020-11 Yes [id number] USE Univers diagnostic 2-07 DIRECTED ity o f (FREESTYLE 00:00: [place] TEST) strip 00 [facility] blood sugar 2020-11 Yes [id number] USE Univers diagnostic 2-07 DIRECTED ity o f (FREESTYLE 00:00: [place] TEST) strip 00 [facility] blood sugar 2020-11 Yes [id number] USE Univers diagnostic 2-07 DIRECTED ity o f (FREESTYLE 00:00: [place] TEST) strip 00 [facility] blood sugar 2020-11 Yes [id number] USE Univers diagnostic 2-07 DIRECTED ity o f (FREESTYLE 00:00: [place] TEST) strip 00 [facility] blood sugar 2020-11 Yes [id number] USE Univers diagnostic 2-07 DIRECTED ity o f (FREESTYLE 00:00: [place] TEST) strip 00 [facility] blood sugar 2020-11 Yes [id number] USE Univers diagnostic 2-07 DIRECTED ity o f (FREESTYLE 00:00: [place] TEST) strip 00 [facility] Diclofenac 0 Yes APPLY TO Uni vers Sodium 1 % 9-21 AFFECTED ity o f gel 00:00: JOINT [place] 00 THREE Medical TIMES A Branch DAY NEEDED Diclofenac 2020-0 Yes APPLY TO Uni vers Sodium 1 % 9-21 AFFECTED ity o f gel 00:00: JOINT [place] 00 THREE Medical TIMES A Branch DAY NEEDED Diclofenac 0 Yes APPLY TO Uni vers Sodium 1 % 9-21 AFFECTED ity o f gel 00:00: JOINT [place] 00 THREE Medical TIMES A Branch DAY NEEDED Diclofenac 2020-0 Yes APPLY TO Uni vers Sodium 1 % 9-21 AFFECTED ity o f gel 00:00: JOINT [place] 00 THREE Medical TIMES A Branch DAY NEEDED Diclofenac 2020-0 Yes APPLY TO Uni vers Sodium 1 % 9-21 AFFECTED ity o f gel 00:00: JOINT [place] 00 THREE Medical TIMES A Branch DAY NEEDED Diclofenac 2020-0 Yes APPLY TO Uni vers Sodium 1 % 9-21 AFFECTED ity o f gel 00:00: JOINT [place] 00 THREE Medical TIMES A Branch DAY NEEDED Diclofenac 2020-0 Yes APPLY TO Uni vers Sodium 1 % 9-21 AFFECTED ity o f gel 00:00: JOINT [place] 00 THREE Medical TIMES A Branch DAY NEEDED carvediloL 1-0 Yes 25mg Take 25 mg U nivers 25 mg 8-02 by mouth 2 ity of tablet 00:00: (two) [place] 00 times Medical daily. Branch carvediloL 2021-0 Yes 25mg Take 25 mg U nivers 25 mg 8-02 by mouth 2 ity of tablet 00:00: (two) [place] 00 times Medical daily. Branch carvediloL 2021-0 Yes 25mg Take 25 mg U nivers 25 mg 8-02 by mouth 2 ity of tablet 00:00: (two) [place] 00 times Medical daily. Branch carvediloL 2021-0 Yes 25mg Take 25 mg U nivers 25 mg 8-02 by mouth 2 ity of tablet 00:00: (two) [place] 00 times Medical daily. Branch carvediloL 2021-0 Yes 25mg Take 25 mg U nivers 25 mg 8-02 by mouth 2 ity of tablet 00:00: (two) [place] 00 times Medical daily. Branch carvediloL 1-0 Yes 25mg Take 25 mg U nivers 25 mg 8-02 by mouth 2 ity of tablet 00:00: (two) [place] 00 times Medical daily. Branch carvediloL 1-0 Yes 25mg Take 25 mg U nivers 25 mg 8-02 by mouth 2 ity of tablet 00:00: (two) [place] 00 times Medical daily. Branch flash 2020-0 Yes 1{each} 1 Each Univers glucose 6-02 SEE-INSTRU ity of scanning 00:00: CTIONS. [place] reader 00 Medical (FREESTYLE Branch FABIENNE 2 READER) Misc flash 2020-0 Yes 1{each} 1 Each Univers glucose 6-02 SEE-INSTRU ity of scanning 00:00: CTIONS. [place] reader 00 Medical (FREESTYLE Branch FABIENNE 2 READER) Misc flash 2020-0 Yes 1{each} 1 Each Univers glucose 6-02 SEE-INSTRU ity of scanning 00:00: CTIONS. [place] reader 00 Medical (FREESTYLE Branch FABIENNE 2 READER) Misc flash 2020-0 Yes 1{each} 1 Each Univers glucose 6-02 SEE-INSTRU ity of scanning 00:00: CTIONS. [place] reader 00 Medical (FREESTYLE Branch FABIENNE 2 READER) [facility] [place] [facility] flash 0 Yes 1{each} 1 Each Univers glucose 6-02 SEE-INSTRU ity of scanning 00:00: CTIONS. [place] reader 00 Medical (FREESTYLE Branch FABIENNE 2 READER) [facility] [place] [facility] flash 0 Yes 1{each} 1 Each Univers glucose 6-02 SEE-INSTRU ity of scanning 00:00: CTIONS. [place] reader 00 Medical (FREESTYLE Branch FABIENNE 2 READER) [facility] [place] [facility] flash Yes 1{each} 1 Each Univers glucose 6-02 SEE-INSTRU ity of scanning 00:00: CTIONS. [place] reader 00 Medical (FREESTYLE Branch FABIENNE 2 READER) [facility] [place] [facility] aspirin 81 2019-11 Yes 81mg Take 81 mg U nivers mg chewable 2-22 by mouth ity of tablet 11:48: daily. Medical Branch methazolami 2019-11 Yes 50mg Take 50 mg Univers de 2-22 by mouth ity of (NEPTAZANE) 11:48: daily. [place] 50 mg 00 Medical tablet Branch dorzolamide 2019-[address] in Un krishan HCl 2-22 each eye. ity of (DORZOLAMID 11:48: [place] E 00 Medical OPHTHALMIC) Branch aspirin 81 2019-11 Yes 81mg Take 81 mg U nivers mg chewable 2-22 by mouth ity of tablet 11:48: daily. Medical Branch methazolami 2019-11 Yes 50mg Take 50 mg Univers de 2-22 by mouth ity of (NEPTAZANE) 11:48: daily. [place] 50 mg 00 Medical tablet Branch dorzolamide 2019-[address] in Un krishan HCl 2-22 each eye. ity of (DORZOLAMID 11:48: [place] E 00 Medical OPHTHALMIC) Branch aspirin 81 2019-11 Yes 81mg Take 81 mg U nivers mg chewable 2-22 by mouth ity of tablet 11:48: daily. Medical Branch methazolami 2019-11 Yes 50mg Take 50 mg Univers de 2-22 by mouth ity of (NEPTAZANE) 11:48: daily. [place] 50 mg 00 Medical tablet Branch dorzolamide 2019-[address] in Un krishan HCl 2-22 each eye. ity of (DORZOLAMID 11:48: [place] E Medical OPHTHALMIC) Branch aspirin 81 2019-11 Yes 81mg Take 81 mg U nivers mg chewable 2-22 by mouth ity of tablet 11:48: daily. Medical Branch methazolami 2019-11 Yes 50mg Take 50 mg Univers de 2-22 by mouth ity of (NEPTAZANE) 11:48: daily. [place] 50 mg 00 Medical tablet Branch dorzolamide 2019-[address] in Un krishan HCl 2-22 each eye. ity of (DORZOLAMID 11:48: Medical OPHTHALMIC) Branch aspirin 81 2019-11 Yes 81mg Take 81 mg U nivers mg chewable 2-22 by mouth ity of tablet 11:48: daily. Medical Branch methazolami 2019-11 Yes 50mg Take 50 mg Univers de 2-22 by mouth ity of (NEPTAZANE) 11:48: daily. [place] 50 mg 00 Medical tablet Branch dorzolamide 2019-[address] in Un krishan HCl 2-22 each eye. ity of (DORZOLAMID 11:48: Medical OPHTHALMIC) Branch aspirin 81 2019-11 Yes 81mg Take 81 mg U nivers mg chewable 2-22 by mouth ity of tablet 11:48: daily. Medical Branch methazolami 2019-11 Yes 50mg Take 50 mg Univers de 2-22 by mouth ity of (NEPTAZANE) 11:48: daily. [place] 50 mg 00 Medical tablet Branch dorzolamide 2019-[address] in Un krishan HCl 2-22 each eye. ity of (DORZOLAMID 11:48: Medical OPHTHALMIC) Branch aspirin 81 2019-11 Yes 81mg Take 81 mg U nivers mg chewable 2-22 by mouth ity of tablet 11:48: daily. Medical Branch methazolami 2019-11 Yes 50mg Take 50 mg Univers de 2-22 by mouth ity of (NEPTAZANE) 11:48: daily. [place] 50 mg 00 Medical tablet Branch dorzolamide 2019-[address] in Un krishan HCl 2-22 each eye. ity of (DORZOLAMID 11:48: Medical OPHTHALMIC) Branch glucagon 2020-0 Yes [id number] 1mg 1 mg by U nivers (GLUCAGON 8-18 Intramuscu ity of EMERGENCY 00:00: lar route [place] KIT, 00 as needed Medical HUMAN,) 1 (hypoglyce Bran ch mg padma and injection unconsciou s). glucagon 2020-0 Yes [id number] 1mg 1 mg by U nivers (GLUCAGON 8-18 Intramuscu ity of EMERGENCY 00:00: lar route [place] KIT, 00 as needed Medical HUMAN,) 1 (hypoglyce Bran ch mg padma and injection unconsciou s). glucagon 2020-0 Yes [id number] 1mg 1 mg by U nivers (GLUCAGON 8-18 Intramuscu ity of EMERGENCY 00:00: lar route [place] KIT, 00 as needed Medical HUMAN,) 1 (hypoglyce Bran ch mg padma and injection unconsciou s). glucagon 2020-0 Yes [id number] 1mg 1 mg by U nivers (GLUCAGON 8-18 Intramuscu ity of EMERGENCY 00:00: lar route [place] KIT, 00 as needed Medical HUMAN,) 1 (hypoglyce Bran ch mg padma and injection unconsciou s). glucagon 2020-0 Yes [id number] 1mg 1 mg by U nivers (GLUCAGON 8-18 Intramuscu ity of EMERGENCY 00:00: lar route [place] KIT, 00 as needed Medical HUMAN,) 1 (hypoglyce Bran ch mg padma and injection unconsciou s). glucagon 2020-0 Yes [id number] 1mg 1 mg by U nivers (GLUCAGON 8-18 Intramuscu ity of EMERGENCY 00:00: lar route [place] KIT, 00 as needed Medical HUMAN,) 1 (hypoglyce Bran ch mg padma and injection unconsciou s). glucagon 2020-0 Yes [id number] 1mg 1 mg by U nivers (GLUCAGON 8-18 Intramuscu ity of EMERGENCY 00:00: lar route [place] KIT, 00 as needed Medical HUMAN,) 1 (hypoglyce Bran ch mg padma and injection unconsciou s). TRAVATAN Z Yes PUT 1 DROP U nivers 0.004 % 2-05 INTO BOTH ity of ophthalmic 00:00: EYES AT [place] drops 00 BEDTIME Medical Branch TRAVATAN Z Yes PUT 1 DROP U nivers 0.004 % 2-05 INTO BOTH ity of ophthalmic 00:00: EYES AT [place] drops 00 BEDTIME Medical Branch TRAVATAN Z Yes PUT 1 DROP U nivers 0.004 % 2-05 INTO BOTH ity of ophthalmic 00:00: EYES AT [place] drops 00 BEDTIME Medical Branch TRAVJIMN Z Yes PUT 1 DROP U nivers 0.004 % 2-05 INTO BOTH ity of ophthalmic 00:00: EYES AT [place] drops 00 BEDTIME Medical Branch TRAVJIMN Z Yes PUT 1 DROP U nivers 0.004 % 2-05 INTO BOTH ity of ophthalmic 00:00: EYES AT [place] drops 00 BEDTIME Medical Branch TRAVJIMN Z Yes PUT 1 DROP U nivers 0.004 % 2-05 INTO BOTH ity of ophthalmic 00:00: EYES AT [place] drops 00 BEDTIME Medical Branch TRAVJIMN Z Yes PUT 1 DROP U nivers 0.004 % 2-05 INTO BOTH ity of ophthalmic 00:00: [place] [facility] Blood 2015-11 Yes Use as Univers Glucose 2-20 directed, ity of Control, 00:00: DX:E11.9 [place] Normal 00 Medical (GLUCOSE Branch CONTROL) Sol Blood 2015-11 Yes Use as Univers Glucose 2-20 directed, ity of Control, 00:00: DX:E11.9 [facility] 00 Medical (GLUCOSE Branch CONTROL) Sol Blood 2015-11 Yes Use as Univers Glucose 2-20 directed, ity of Control, 00:00: DX:E11.9 [place] Normal 00 Medical (GLUCOSE Branch CONTROL) Soln Blood 2016 Yes Use as Univers Glucose 2-20 directed, ity of Control, 00:00: DX:E11.9 [place] Normal 00 Medical (GLUCOSE Branch CONTROL) Soln Blood 2015-11 Yes Use as Univers Glucose 2-20 directed, ity of Control, 00:00: DX:E11.9 [place] Normal 00 Medical (GLUCOSE Branch CONTROL) Soln Blood 2016- Yes Use as Univers Glucose 2-20 directed, ity of Control, 00:00: DX:E11.9 [facility] 00 Medical (GLUCOSE Branch CONTROL) Soln Blood 2015- Yes Use as Univers Glucose 2-20 directed, ity of Control, 00:00: DX:E11.9 [facility] 00 Medical (GLUCOSE Branch CONTROL) Soln atorvastati 2015- Yes [id number] 40mg Take 1 Univers n (LIPITOR) 2-05 tablet by ity of 40 mg 00:00: mouth at [place] tablet 00 bedtime. Medical Branch atorvastati 2015-11 Yes [id number] 40mg Take 1 Univers n (LIPITOR) 2-05 tablet by ity of 40 mg 00:00: mouth at [place] tablet 00 bedtime. Medical Branch atorvastati 2015-11 Yes [id number] 40mg Take 1 Univers n (LIPITOR) 2-05 tablet by ity of 40 mg 00:00: mouth at [place] tablet 00 bedtime. Medical Branch atorvastati 2015-11 Yes [id number] 40mg Take 1 Univers n (LIPITOR) 2-05 tablet by ity of 40 mg 00:00: mouth at [place] tablet 00 bedtime. Medical Branch atorvastati 2015-11 Yes [id number] 40mg Take 1 Univers n (LIPITOR) 2-05 tablet by ity of 40 mg 00:00: mouth at [place] tablet 00 bedtime. Medical Branch atorvastati 2015-11 Yes [id number] 40mg Take 1 Univers n (LIPITOR) 2-05 tablet by ity of 40 mg 00:00: mouth at [place] tablet 00 bedtime. Medical Branch atorvastati 2015-11 Yes [id number] 40mg Take 1 Univers n (LIPITOR) 2-05 tablet by ity of 40 mg 00:00: mouth at [place] tablet 00 bedtime. Medical Branch amLODIPine 2015-11 Yes [id number] 10mg Take 1 U nivers (NORVASC) 0-26 tablet by ity o f 10 mg 00:00: mouth [place] tablet 00 daily. Medical Branch amLODIPine 2015-11 Yes [id number] 10mg Take 1 U nivers (NORVASC) 0-26 tablet by ity o f 10 mg 00:00: mouth [place] tablet 00 daily. Medical Branch amLODIPine 2015-11 Yes [id number] 10mg Take 1 U nivers (NORVASC) 0-26 tablet by ity o f 10 mg 00:00: mouth [place] tablet 00 daily. Medical Branch amLODIPine 2015-11 Yes [id number] 10mg Take 1 U nivers (NORVASC) 0-26 tablet by ity o f 10 mg 00:00: mouth [place] tablet 00 daily. Medical Branch amLODIPine 2015-11 Yes [id number] 10mg Take 1 U nivers (NORVASC) 0-26 tablet by ity o f 10 mg 00:00: mouth [place] tablet 00 daily. Medical Branch amLODIPine 2015-11 Yes [id number] 10mg Take 1 U nivers (NORVASC) 0-26 tablet by ity o f 10 mg 00:00: mouth [place] tablet 00 daily. Medical Branch amLODIPine 2015-11 Yes [id number] 10mg Take 1 U nivers (NORVASC) 0-26 tablet by ity o f 10 mg 00:00: mouth [place] tablet [address] [facility] lisinopril Yes [id number] 20mg Take 1 U nivers (PRINIVIL,Z 9-07 tablet by ity of ESTRIL) 20 00:00: mouth [place] mg tablet [address] [facility] lisinopril Yes [id number] 20mg Take 1 U nivers (PRINIVIL,Z 9-07 tablet by ity of ESTRIL) 20 00:00: mouth [place] mg tablet 00 daily. Medical Branch lisinopril Yes [id number] 20mg Take 1 U nivers (PRINIVIL,Z 9-07 tablet by ity of ESTRIL) 20 00:00: mouth [place] mg tablet [address] [facility] lisinopril Yes [id number] 20mg Take 1 U nivers (PRINIVIL,Z 9-07 tablet by ity of ESTRIL) 20 00:00: mouth [place] mg tablet [address] [facility] lisinopril Yes [id number] 20mg Take 1 U nivers (PRINIVIL,Z 9-07 tablet by ity of ESTRIL) 20 00:00: mouth [place] mg tablet [address] [facility] lisinopril Yes [id number] 20mg Take 1 U nivers (PRINIVIL,Z 9-07 tablet by ity of ESTRIL) 20 00:00: mouth [place] mg tablet [address] [facility] lisinopril Yes [id number] 20mg Take 1 U nivers (PRINIVIL,Z 9-07 tablet by ity of ESTRIL) 20 00:00: mouth [place] mg tablet [address] [facility] DIABETIC Yes use 5-6 Univer s SUPPLIES, 3-01 times ity of MISCELLAN. 00:00: daily as [place] IN VITRO 00 directed. Medica l SOL Branch DIABETIC Yes use 5-6 Univer s SUPPLIES, 3-01 times ity of MISCELLAN. 00:00: daily as [place] IN VITRO 00 directed. [facility] DIABETIC Yes use 5-6 Univer s SUPPLIES, 3-01 times ity of MISCELLAN. 00:00: daily as [place] IN VITRO 00 directed. [facility] DIABETIC Yes use 5-6 Univer s SUPPLIES, 3-01 times ity of MISCELLAN. 00:00: daily as [place] IN VITRO 00 directed. [facility] DIABETIC Yes use 5-6 Univer s SUPPLIES, 3-01 times ity of MISCELLAN. 00:00: daily as [place] as IN VITRO 00 directed. [facility] DIABETIC Yes use 5-6 Univer s SUPPLIES, 3-01 times ity of MISCELLAN. 00:00: daily as [place] as IN VITRO 00 directed. [facility] DIABETIC Yes use 5-6 Univer s SUPPLIES, 3-01 times ity of MISCELLAN. 00:00: daily as [place] IN VITRO 00 directed. [facility] Immunizations Ordered Filled Immunization Date Status Comments [facility] e Immunization Name Name SARS-COV-2 COVID-19 2021-01-17 Completed Unive rsity of MODERNA VACCINE 00:00:00 [facility] SARS-COV-2 COVID-19 2021-01-17 Completed Unive rsity of MODERNA VACCINE 00:00:00 [facility] SARS-COV-2 COVID-19 2021-01-17 Completed Unive rsity of MODERNA VACCINE 00:00:00 [facility] ical Branch SARS-COV-2 COVID-19 2021-01-17 Completed Unive rsity of MODERNA VACCINE 00:00:[address] [facility] [place] SARS-COV-2 COVID-19 2021-01-17 Completed Unive rsity of MODERNA VACCINE 00:00:00 [facility] ical [place] SARS-COV-2 COVID-19 2021-01-17 Completed Unive rsity of MODERNA 12+ YRS 00:00:00 [facility] SARS-COV-2 COVID-19 2021-01-17 Completed Unive rsity of MODERNA 12+ YRS 00:00:00 [facility] VACCINE Branch SARS-COV-2 COVID-19 2020-12-20 Completed Unive rsity of [place] VACCINE 00:00:00 [facility] Branch SARS-COV-2 COVID-19 2020-12-20 Completed Unive rsity of [place] VACCINE 00:00:00 [facility] SARS-COV-2 COVID-19 2020-12-20 Completed Unive rsity of [place] VACCINE 00:00:00 [facility] Branch SARS-COV-2 COVID-19 2020-12-20 Completed Unive rsity of [place] VACCINE 00:00:00 [facility] SARS-COV-2 COVID-19 2020-12-20 Completed Unive rsity of [place] VACCINE 00:00:00 [facility] SARS-COV-2 COVID-19 2020-12-20 Completed Unive rsity of MODERNA 12+ YRS 00:00:00 [facility] VACCINE Branch SARS-COV-2 COVID-19 2020-12-20 Completed Unive rsity of MODERNA 12+ YRS 00:00:00 [facility] VACCINE Branch Influenza Virus 2020-07-02 Completed Universit y of Vaccine Quad .5 mL 00:00:00 [facility] 6+ MO Branch Influenza Virus 2020-07-02 Completed Universit y of Vaccine Quad .5 mL 00:00:00 [facility] 6+ MO Branch Influenza Virus 2020-07-02 Completed Universit y of Vaccine Quad .5 mL 00:00:00 [facility] 6+ MO Branch Influenza Virus 2020-07-02 Completed Universit y of Vaccine Quad .5 mL 00:00:00 [facility] 6+ MO Branch Influenza Virus 2020-07-02 Completed Universit y of Vaccine Quad .5 mL 00:00:00 [facility] 6+ MO Branch Influenza Virus 2020-07-02 Completed Universit y of Vaccine Quad .5 mL 00:00:00 [facility] 6+ MO Branch Influenza Virus 2020-07-02 Completed Universit y of Vaccine Quad .5 mL 00:00:00 [facility] 6+ MO Branch Procedures Procedure Date / Time Performing Clinician Source Performed INSURANCE CORRESPONDENCE 2022-06-24 05:01:00 Doctor Unassigned, [facility] [place] [facility] SCANNED LAB RESULTS 2022-04-05 05:01:00 Enid Sherman [facility] [place] [facility] SCANNED LAB RESULTS 2022-03-04 05:01:00 Enid Sherman [facility] [place] [facility] Encounters Start End Encounter Admission Attending Care Care Encounter Source Date/Time Date/Time Type Type Clinicians Facility Department ID 2022-09-09 2022-09-09 Telephone Alfonso [facility] [id number] Univers 00:00:00 00:00:00 NullPointer 350.1.13.10 it y of [place] 4.2.7.2.686 Pablo as NICOLAS?BLEA [phone] [address] MEDICAL OFFICE BUILDING 2022-08-29 2022-08-29 Refill Alfonso [facility] 1.2.840.114 [id number] Univers 00:00:00 00:00:00 ITDatabasekennan [employer] 350.1.13.10 it y of [place] 4.2.7.2.686 Pablo as NICOLAS?BLEA [phone] [address] MEDICAL OFFICE BUILDING 2022-07-08 2022-07-08 Patient Alfonso [facility] 1.2.840.114 [id number] Univers 00:00:00 00:00:00 Secure Msg [facility] MULTISPEC 350.1.13.10 [place] [id number] [address] [facility]ETES CLINIC 2022-06-24 2022-06-24 Orders Doctor OWEN 1.2.840.114 [id number] Univers 00:00:00 00:00:00 Only Unassigned, CIERRA 350.1.13.10 ity of [place] [facility] 4.2.7.2.686 Pablo as [phone] [place] [address] Branch 2022-06-23 2022-06-23 Patient Alfonso ARRAJI 1.2.840.114 [id number] Univers 00:00:00 00:00:00 Secure Msg Wentong MULTISPEC 350.1.13.10 [place] [id number] [address] DIABETES CLINIC 2022-06-09 2022-06-[address] [facility] [id number] Univers 09:30:00 10:46:39 [facility] 2022-06-09 2022-06-09 [facility] 1.2.840.114 [id number] Univers 09:30:00 10:46:39 Visit [facility] 350.1.13.10 it y of [place] 4.2.7.2.686 Pablo as NICOLAS?BLEA [phone] [address] MEDICAL OFFICE BUILDING 2022-06-09 2022-06-09 [facility] [id number] Univers 09:30:00 09:30:00 [facility] 2022-06-09 2022-06-09 Orders Doctor BRAYDEN 1.2.840.114 [id number] Univers 00:00:00 00:00:00 Only Unassigned, CIERRA 350.1.13.10 ity of [place] [facility] 4.2.7.2.686 Pablo as [id number] [place] [address] Branch 2022-04-22 2022-04-22 Telephone [facility] 1.2.954.876 [id number] Univers 00:00:00 00:00:00 [facility] HEALTH 350.1.13.10 it y of [place] 4.2.7.2.686 Pablo as NICOLAS?BLEA [phone] [address] MEDICAL OFFICE [facility] 2022-04-16 2022-04-16 [facility] 1.2.122.442 [id number] Univers 00:00:00 00:00:00 [facility] HEALTH 350.1.13.10 it y of [place] 4.2.7.2.686 Pablo as NICOLAS?BLEA [phone] [address] MEDICAL OFFICE BUILDING 2022-04-05 2022-04-05 Orders Doctor BRAYDEN 1.2.840.114 [id number] Univers 00:00:00 00:00:00 Only Unassigned, CIERRA 350.1.13.10 ity of [place] [facility] 4.2.7.2.686 Pablo as [phone] [facility] 009 Branch 2022-03-29 2022-03-29 Patient Yeboah, [facility] 1.2.840.114 [id number] Univers 00:00:00 00:00:00 Secure Msg Jennyong MULTISPEC 350.1.13.10 [place] [id number] [address] DIABETES CLINIC 2022-03-29 2022-03-29 Telephone Yeboah, [facility] 1.2.628.531 [id number] Univers 00:00:00 00:00:00 Wentong HEALTH 350.1.13.10 it y of [place] 4.2.7.2.686 Pablo as NICOLAS?BLEA [id number] [address] MEDICAL OFFICE [facility] 2022-03-29 2022-03-29 Patient Yeboah, [facility] 1.2.840.114 [id number] Univers 00:00:00 00:00:00 Secure Msg Jennyong MULTISPEC 350.1.13.10 [place] [phone] [address] DIABETES CLINIC 2022-03-16 2022-03-16 Telephone Yeboah, [facility] 1.2.254.684 [id number] Univers 00:00:00 00:00:00 ITDatabaseong HEALTH 350.1.13.10 it y of [place] 4.2.7.2.686 Pablo as NICOLAS?BLEA [phone] [address] MEDICAL OFFICE [facility] 2022-03-09 2022-03-09 Refill Yeboah, [facility] 1.2.840.114 [id number] Univers 00:00:00 00:00:00 Wentong [place] 350.1.13.10 i ty of [place].7.2.[place] [id number] [address] 2022-03-09 2022-03-09 Refill Yeboah, [facility] 1.2.840.114 [id number] Univers 00:00:00 00:00:00 Wentong [place] 350.1.13.10 i ty of [place] 4.2.7.2.[place] [id number] [address] 2022-03-09 2022-03-09 Refill Alfonso [facility] 1.2.840.114 [id number] Univers 00:00:00 00:00:00 Wentmaria teresa [place] 350.1.13.10 i ty of [place] 4.2.7.2.[place] [id number] [address] 2022-03-09 2022-03-09 [facility] 1.2.840.114 [id number] Univers 00:00:00 00:00:00 [facility] 350.1.13.10 i ty of [place] 4.2.7.2.[place] [phone] [address] 2022-03-04 2022-03-04 Orders Doctor BRAYDEN 1.2.840.114 [id number] Univers 00:00:00 00:00:00 Only Unassigned, CIERRA 350.1.13.10 ity of [place] [facility] 4.2.7.2.686 Pablo as [phone] [address] 2021-12-22 2021-12-22 Outpatient R ALFONSO [facility] [id number] Univers 12:00:00 13:18:36 [facility] 2021-12-22 2021-12-22 [facility] 1.2.840.114 [id number] Univers 12:00:00 13:18:36 Visit [facility] 350.1.13.10 it y of [place] 4.2.7.2.686 Pablo as NICOLAS?BLEA [phone] [address] MEDICAL OFFICE BUILDING 2021-12-22 2021-12-22 Orders Doctor BRAYDEN 1.2.840.114 [id number] Univers 00:00:00 00:00:00 Only Unassigned, CIERRA 350.1.13.10 ity of [place] [facility] 4.2.7.2.686 Pablo as [phone] [address] 2021-10-20 2021-10-20 Andria Montenegro [facility] 1.2.840.114 [id number] Univers 00:00:00 00:00:00 Sylvester TORRES 350.1.13.10 ity of [place]2.7.2.[place] [id number] [facility] AND [address] DIABETES CLINIC 2021-09-25 2021-09-25 Refthierno Yeboah [facility] 1.2.840.114 [id number] Univers 00:00:00 00:00:00 Alessandro [place] 350.1.13.10 i ty of [facility] 4.2.7.2.686 [place] [id number] [address] 2021-09-25 2021-09-25 Andria Yeboah [facility] 1.2.840.114 [id number] Univers 00:00:00 00:00:00 Alessandro [place] 350.1.13.10 i ty of [facility] 4.2.7.2.686 [place] [id number] [address] 2021-09-22 2021-09-22 [facility] 1.2.840.114 [id number] Univers 00:00:00 00:00:00 Alessandro [place] 350.1.13.10 i ty of [place] 4.2.7.2.686 [place] [phone] [address] 2021-08-11 2021-08-11 Outpatient R ALFONSO [facility] [id number] Univers 16:00:00 16:00:00 [facility] ity [facility] 2021-08-11 2021-08-11 [facility] 1.2.840.114 [id number] Univers 12:47:49 14:19:45 Visit [facility] 350.1.13.10 it y of [place] 4.2.7.2.686 Pablo as Nicolas?Blea [phone] [address] Medical Office Building 2021-08-11 2021-08-11 Orders Doctor OWEN 1.2.840.114 [id number] Univers 00:00:00 00:00:00 Only Unassigned, CIERRA 350.1.13.10 ity of [place] [facility] 4.2.7.2.686 Pablo as [phone] [facility] 009 Branch 2021-08-11 2021-08-11 [facility] 1.2.883.363 [id number] Univers 00:00:00 00:00:00 Wentong [facility] 350.1.13.10 it y of [place] 4.2.7.2.686 Pablo as Nicolas?Blea [id number] [address] Medical Office Building 2021-07-28 2021-07-28 Outpatient R ALFONSO [facility] [id number] Univers 10:30:00 10:30:00 WENTONG ity of [facility] 2021-05-08 2021-05-08 [facility] 1.2.840.114 [id number] Univers 00:00:00 00:00:00 Secure Msg Wentong MULTISPEC 350.1.13.10 it[place] 4[place]2.7.2.686 [place] [phone] [facility] AND [address] DIABETES CLINIC 2021-04-09 2021-04-09 Orders Doctor BRAYDEN 1.2.840.114 [id number] Univers 00:00:00 00:00:00 Only Unassigned, CIERRA 350.1.13.10 ity of [place] [facility] 4.2.7.2.686 Pablo as [id number] [address] 2021-04-06 2021-04-06 [facility] 1.2.010.103 [id number] Univers 00:00:00 00:00:00 Wentong [place] 350.1.13.10 i ty of [place].2.[place].2.[place] [phone] [facility] 220 Branch [facility] 2021-04-01 2021-04-01 [facility] 1.2.840.114 [id number] Univers 00:00:00 00:00:00 Secure Msg Wentong [place] 350.1.13.10 ity of [place] 4.2.7.2.[place] [phone] [address] 2021-03-30 2021-03-30 [facility] 1.2.840.114 [id number] Univers 00:00:00 00:00:00 Alessandro Castro 350.1.13.10 i ty of [place] 4[place]2.7.2.[place] [id number] [address] 2021-03-27 2021-03-27 [facility] 1.2.840.114 [id number] Univers 00:00:00 00:00:00 Secure Msg Jennymaria teresa MULTISPEC 350.1.13.10 [facility] 4.2.7.2.[place] [phone] [facility] AND [address] DIABETES CLINIC 2021-03-26 2021-03-26 [facility] 1.2.840.114 [id number] Univers 00:00:00 00:00:00 Alessandro [place] 350.1.13.10 i ty of [place] 4.2.7.2.[place] [phone] [address] 2021-03-26 2021-03-26 [facility] 1.2.623.401 [id number] Univers 00:00:00 00:00:00 Alessandro [place] 350.1.13.10 i ty of [place] 4.2.7.2.[place] [phone] [address] 2021-03-25 2021-03-25 [facility] 1.2.840.114 [id number] Univers 10:45:02 12:10:14 Visit Alessandro [place] 350.1.13.10 i ty of [place] 4.2.7.2.[place] [phone] [address] 2021-03-25 2021-03-25 [facility] [id number] Univers 11:00:00 11:00:00 WENTONG ity of [facility] 2021-03-25 2021-03-25 Orders Doctor OWEN 1.2.840.114 [id number] Univers 00:00:00 00:00:00 Only Unassigned, CIERRA 350.1.13.10 ity of [place] [facility] 4.2.7.2.686 Pablo as [phone] [place] [address] Branch 2021-03-13 2021-03-13 Orders Doctor BRAYDEN 1.2.840.114 [id number] Univers 00:00:00 00:00:00 Only Unassigned, CIERRA 350.1.13.10 ity of [place] [facility] 4.2.7.2.686 Pablo as [phone] [place] [address] Branch 2021-03-12 2021-03-12 [facility] 1.2.948.415 [id number] Univers 00:00:00 00:00:00 Wentong MULTISPEC 350.1.13.10 [place] of [place]2.[place].2.[place] [phone] [facility] AND [place] [address] DIABETES CLINIC 2021-01-17 2021-01-17 Outpatient [facility] [id number] Univers 08:10:00 08:10:00 ity of [facility] 2020-12-20 2020-12-20 Outpatient [facility] [id number] Univers 08:00:00 08:00:00 ity of [facility] 2020-11-04 2020-11-04 [facility] 1.2.840.114 [id number] Univers 11:20:30 12:25:53 Visit Alessandro Castro 350.1.13.10 i ty of [place]2.[place].2.[place] [phone] [facility] 2020-11-04 2020-11-04 Outpatient [facility] [id number] Univers 11:30:00 11:30:00 JENNYONG ity of [facility] 2020-11-04 2020-11-04 Orders Doctor BRAYDEN 1.2.840.114 [id number] Univers 00:00:00 00:00:00 Only Unassigned, CIERRA 350.1.13.10 ity of [place] [facility] 4.2.7.2.686 Pablo as [id number] [address] 2020-10-31 2020-10-31 Telephone [facility] 1.2.150.542 [id number] Univers 00:00:00 00:00:00 Wentong [place] 350.1.13.10 i ty of [place] 4.2.7.2.[place] [phone] [address] 2020-10-29 2020-10-29 [facility] 1.2.840.114 [id number] Univers 00:00:00 00:00:00 Wentong [place] 350.1.13.10 i ty of [place] 4.2.7.2.[place] [phone] [address] 2020-10-17 2020-10-17 [facility] 1.2.840.114 [id number] Univers 00:00:00 00:00:00 Wentong [place] 350.1.13.10 i ty of [place] 4.2.7.2.[place] [phone] [address] 2020-07-01 2020-07-01 Outpatient [facility] [id number] Univers 11:00:00 11:00:00 WENTONG ity [facility] 2020-07-01 2020-07-01 Telemedici [facility] 1.2.840.114 [id number] Univers 08:08:16 08:38:16 ne Visit Alessandro [place] 350.1.13.10 ity of [place] 4.2.7.2.[place] [phone] [address] 2020-07-01 2020-07-01 Orders Doctor BRAYDEN 1.2.840.114 [id number] Univers 00:00:00 00:00:00 Only Unassigned, CIERRA 350.1.13.10 ity of [place] [facility] 4.2.7.2.686 Pablo as [id number] [address] 2020-05-07 2020-05-07 [facility] 1.2.553.465 [id number] Univers 00:00:00 00:00:00 Wentong [place] 350.1.13.10 i ty of [place] 4.2.7.2.[place] [phone] [address] 2020-03-25 2020-03-26 Telemedici [facility] 1.2.840.114 [id number] Univers 08:07:43 08:25:32 ne Visit Alessandro Castro 350.1.13.10 ity of [place] 4.2.7.2.[place] [phone] [address] 2020-03-26 2020-03-26 Telephone [facility] 1.2.417.472 [id number] Univers 00:00:00 00:00:00 Alessandro [place] 350.1.13.10 i ty of [place] 4.2.7.2.[place] [phone] [address] 2020-03-26 2020-03-26 Orders Doctor BRAYDEN 1.2.840.114 [id number] Univers 00:00:00 00:00:00 Only Unassigned, CIERRA 350.1.13.10 ity of [place] [facility] 4.2.7.2.686 Pablo as [id number] [address] 2020-03-25 2020-03-25 Outpatient [facility] [id number] Univers 15:30:00 15:30:00 WENTONG ity [facility] 2020-03-12 2020-03-12 Telephone [facility] 1.2.373.657 [id number] Univers 00:00:00 00:00:00 Alessandro [place] 350.1.13.10 i ty of [place] 4[place]2.[place].2.[place] [phone] [address] 2020-03-11 2020-03-11 Telephone [facility] 1.2.642.535 [id number] Univers 00:00:00 00:00:00 Jennyong [place] 350.1.13.10 i ty of [place] 4.2.7.2.[place] [phone] [address] 2020-03-10 2020-03-10 Orders Doctor BRAYDEN 1.2.840.114 [id number] Univers 00:00:00 00:00:00 Only Unassigned, CIERRA 350.1.13.10 ity of [place] [facility] 4.2.7.2.686 Pablo as [phone] [facility] 009 Branch 2020-03-06 2020-03-06 Telephone Yeboah, [facility] 1.2.392.036 [id number] Univers 00:00:00 00:00:00 Wentong [place] 350.1.13.10 i ty of [place] 4[place]2.7.2.[place] [phone] [facility] 2020-03-04 2020-03-04 Telephone Yeboah, [facility] 1.2.546.670 [id number] Univers 00:00:00 00:00:00 Wentong [place] 350.1.13.10 i ty of [place] 4.2.7.2.[place] [phone] [facility] 220 [facility] 2020-02-28 2020-02-28 Refill Doctor [facility] 1.2.840.114 [id number] Univers 00:00:00 00:00:00 Unassigned, [place] 350.1.13.10 [place]y of [place] 4.2.7.2.[place] [phone] [facility] 220 [facility] 2020-01-22 2020-01-22 Refill Elida [facility] 1.2.840.114 [id number] Univers 00:00:00 00:00:00 Paty MULTISPEC 350.1.13.10 ity of [place] 4[place]2.7.2.[place] [phone] [facility] AND ALVARADO [address] DIABETES CLINIC 2020-01-22 2020-01-22 Refill Alfonso, [facility] 1.2.840.114 [id number] Univers 00:00:00 00:00:00 Wentong [place] 350.1.13.10 i ty of [place] 4.2.7.2.[place] [phone] [facility] 2019-12-18 2019-12-18 Refill Alfonso, [facility] 1.2.840.114 [id number] Univers 00:00:00 00:00:00 Alessandro [place] 350.1.13.10 i ty of [place]2.7.2.[place] [phone] Ia dical nal 220 [address] Building 2019-07-12 2019-07-12 Andria Marrero [facility] 1.2.840.114 [id number] Univers 00:00:00 00:00:00 Paty [place] 350.1.13.10 i ty of [place] [phone] [facility] 220 Branch [facility] Results This patient has no known results.
[2022-10-07] MEDS ORDERED: FUROSEMIDE 40 MG/4 ML VIAL ONE (08:37)
[2022-10-07] MEDS ORDERED: ONDANSETRON 4 MG/2 ML VIAL ONE ×3 (08:43→16:47)
[2022-10-07 08:49] LABS: Absolute Lymphocytes (CBC) 0.7 K/uL (0.7-4.9); Hematocrit 29.1 % (36.0-45.0); Lymphocytes % 7.7 % (15.3-44.8); MCV 95.6 fL (80-100); MPV 9.6 fL (7.6-11.3); RBC Red Blood Cell Count 3.04 M/uL (3.86-4.86)
[2022-10-07] MEDS ORDERED: FENTANYL CITR 100 MCG/2 ML ONE ×2 (09:03→19:53)
[2022-10-07] MEDS ORDERED: IPRATROPIUM BROM 0.5MG/2.5ML ONE ×3 (09:22→10:17)
[2022-10-07] MEDS ORDERED: ALBUTEROL 2.5 MG/3 ML NEB SOL ONE ×3 (09:22→10:17)
[2022-10-07] MEDS ORDERED: MAGNESIUM SULFATE 1 gm IVPB 1 GM/100 ML BAG IV ONE ×2 (09:22→09:27)
[2022-10-07] MEDS ORDERED: NA CHLORIDE 0.9% 1,000 ML ONE (09:26)
--- NOTE | 2022-10-07 09:38 | ER ---
Nurse's Notes [facility] Name: Josselin Rowley Age: 67 yrs Sex: Female : 1955 Arrival Date: 10/07/2022 Time: 08:19 Bed 15 Private MD: Diagnosis: Unspecified combined systolic (congestive) and diastolic (congestive) heart failure;Hypoxia;Hyponatremia;Acute on chronic renal failure Presentation: 10/07 08:20 Chief complaint: Patient states: shortness of breath that began 1 month ago, but became ss worse over the past 3 days. Also reports increased leg swelling x 3 days. Coronavirus screen: Client denies travel out of the [place] in the last 14 days. Ebola Screen: Patient denies exposure to infectious person. Patient denies travel to an Ebola-affected area in the 21 days before illness onset. 08:20 Method Of Arrival: Ambulatory ss 08:34 Initial Sepsis Screen: Does the patient meet any 2 criteria? No. Patient's initial ss sepsis screen is negative. Does the patient have a suspected source of infection? No. Patient's initial sepsis screen is negative. 08:34 Risk Assessment: Do you want to hurt yourself or someone else? Patient reports no ss desire to harm self or others. Onset of symptoms was October 04, 2022. 08:34 Acuity: DAVID 2 ss Triage Assessment: 08:20 General: Appears distressed, uncomfortable, Behavior is cooperative, anxious, restless. jl7 Respiratory: Respiratory: the patient has moderate shortness of breath. Historical: - Allergies: 08:34 Sulfa (Sulfonamide Antibiotics); ss 08:34 Codeine; ss - PMHx: 08:34 diabetes mellitus; Hypertensive disorder; kidney problem; ss - Immunization history:: Client reports receiving the 2nd dose of the Covid vaccine. - Social history:: Smoking status: Patient denies any tobacco usage or history of. Screenin:55 Abuse screen: Denies threats or abuse. Denies injuries from another. Nutritional jl7 screening: No deficits noted. Tuberculosis screening: No symptoms or risk factors identified. Fall Risk IV access (20 points). Total Sahu Fall Scale indicates No Risk (0-24 pts). Assessment: 08:30 General: Appears distressed, uncomfortable, Behavior is cooperative, appropriate for jl7 age, anxious, restless. Pain: Complains of pain in right upper quadrant and left upper quadrant and ESCOBEDO Pain currently is 10 out of 10 on a pain scale. Pain began 0200 this morning Is continuous. Neuro: Level of Consciousness is awake, alert, obeys commands, Oriented to person, place, time, situation. Cardiovascular: Reports shortness of breath, Denies chest pain, Rhythm is regular. Respiratory: Reports shortness of breath Airway is patent Respiratory effort is even, labored, with retractions, Respiratory pattern is symmetrical, tachypnea Breath sounds are diminished bilaterally. GI: Abdomen is round non-distended. Derm: Skin is dry, Skin is pale, Skin temperature is warm. 09:11 Reassessment: Pt reports continued nausea and is requesting pain medication for ESCOBEDO and jl7 abdominal pain, CONSUMER LENDER Rekha notified, VO for 25 mcg fentanyl and 4 mg Zofran IVP, pt medicated as ordered. 09:40 Reassessment: Pt reports pain is decreased to 8/10 and is still very uncomfortable, jl7 pt's BP is 99/52, ERP notified. Due to BP no new orders received at this time. Pt updated and verbalizes understanding. 10:38 Reassessment: Patient appears in no apparent distress at this time. Patient and/or jl7 family updated on plan of care and expected duration. Pain level reassessed. Pt continues to have headache, ERP notified, VO for 25 mcg Fentanyl IVP, pt medicated as ordered. 10:45 Reassessment: Dr. Nugent at bedside discussing POC. jl7 12:05 Reassessment: Pt assisted to bedside commode, pt voided, when assisting pt back to bed, aa5 pt c/o increased SOB and generalized weakness, O2 sat noted to be 80% via 4 L NC, pt placed back in bed and SOB improved, O2 sat currently 92% via 4 L NC. . 13:07 Reassessment: Pt moved from ED room 4 to ED room 6 and put in hospital bed for comfort. jl7 Vital Signs: 08:20 BP 133 / 69; Pulse 71; Resp 20; Temp 97.0; Pulse Ox 84% 3 lpm ; Weight 77.11 kg; Height ss 4 ft. 11 in. (149.86 cm); Pain 10/10; 08:34 Pulse Ox 93% on 4 lpm NC; ss 08:41 BP 92 / 58; Pulse 69; Resp 24; Pulse Ox 98% 4 lpm ; mb9 08:55 BP 102 / 53; Pulse 69; Resp 21; Pulse Ox 91% ; jl7 09:42 BP 99 / 52; Pulse 65; Resp 24; Pulse Ox 93% on 4 lpm NC; Pain 8/10; jl7 10:25 BP 111 / 72; Pulse 68; Resp 20; Pulse Ox 93% ; Pain 8/10; jl7 11:00 BP 105 / 54; Pulse 64; Resp 26; Pulse Ox 97% on 4 lpm NC; Pain 7/10; jl7 11:30 BP 105 / 55; Pulse 65; Resp 19; Pulse Ox 94% on 4 lpm NC; jl7 08:20 Body Mass Index 34.34 (77.11 kg, 149.86 cm) ED Course: 08:19 Patient arrived in ED. rg4 08:20 Rekha Altamirano FNP-C is PHCP. kb 08:20 Shiva Lind DO is Attending Physician. kb 08:20 Placed in gown. Bed in low position. Call light in reach. Side rails up X 1. Client mb9 placed on continuous cardiac and pulse oximetry monitoring. NIBP monitoring applied. monitor car operator on. 08:22 Saulo Alejandro, RN is Primary Nurse. jl7 08:25 Missed attempt(s): 20 gauge in left antecubital area. Bleeding controlled, band aid jl7 applied, catheter tip intact. 08:30 Initial lab(s) drawn, by oh, sent to lab. jl7 08:34 Triage completed. ss 08:34 Arm band placed on right wrist. ss 08:37 EKG done, by ED staff, reviewed by Saulo Alejandro RN. mb9 08:37 Inserted saline lock: 20 gauge in left antecubital area, using aseptic technique. Blood mb9 collected. done by EMMA Vernon. 08:38 Basic Metabolic Panel Sent. mb9 08:38 CBC with Diff Sent. mb9 08:38 NT PRO-BNP Sent. mb9 08:38 Troponin HS Sent. mb9 08:56 XRAY Chest (1 view) In Process Unspecified. EDMS 09:37 Benito Nugent MD is Hospitalizing Provider. kb 09:52 COVID swab sent to lab. jl7 13:00 No provider procedures requiring assistance completed. Patient admitted, IV remains in jl7 place. intact, No redness/swelling at site. 10/08 00:25 Notified Nurse Practitioner and/or Physician Scoop Machine Operator of a critical lab result(s), PTT tw5 156. Administered Medications: 10/07 08:35 Drug: Lasix (furosemide) 40 mg Route: IVP; Site: right antecubital; jl7 10:40 Follow up: Response: No adverse reaction jl7 08:50 Drug: Zofran (Ondansetron) 4 mg Route: IVP; Site: right antecubital; jl7 09:05 Follow up: Response: No adverse reaction; Nausea unchanged jl7 09:06 Drug: Zofran (Ondansetron) 4 mg Route: IVP; Site: right antecubital; jl7 09:30 Follow up: Response: No adverse reaction; Nausea is decreased jl7 09:08 Drug: fentaNYL (PF) 25 mcg Route: IVP; Site: right antecubital; jl7 09:30 Follow up: Response: No adverse reaction; Pain is decreased jl7 10:40 Drug: fentaNYL (PF) 25 mcg Route: IVP; Site: right antecubital; jl7 11:00 Follow up: Response: No adverse reaction; Pain is decreased jl7 Medication: 08:30 VIS not applicable for this client. jl7 Outcome: 09:38 Decision to Hospitalize by Provider. kb 13:00 Admitted to ER Hold. Please see [facility] for further documentation. jl7 13:00 Condition: stable 13:00 Discharge instructions given to patient, Instructed on the need for admit, Demonstrated understanding of instructions. 10/09 13:14 Admitted to ICU accompanied by nurse, accompanied by tech, family with patient, via bp stretcher, room 6, with oxygen, on monitor, with chart, Report called to JAMESON CARTER 13:50 Patient left the ED. kj1 Signatures: Dispatcher [employer] EDMS Rekha Altamirano, MAX REID-Sharmila Diop, RN RN aa5 Zeny Francis RN RN Jeannie Luke4 Saulo Alejandro RN RN jl7 Marco Antonio Child RN RN bp Jackson, Kandis kj1 Loyda Yan tw5 Keeley Preston, RN RN mb9 Corrections: (The following items were deleted from the chart) 10/08 00:26 00:25 Notified Nurse Practitioner and/or Physician Scoop Machine Operator of a critical lab tw5 result(s), PTT tw5
--- NOTE | 2022-10-07 09:38 | EDPHYS ---
Physician Documentation [facility] Name: Josselin Rowley Age: 67 yrs Sex: Female : 1955 Arrival Date: 10/07/2022 Time: 08:19 Bed 15 Private MD: ED Physician Shiva Lind HPI: 10/07 08:58 This 67 yrs old Female presents to ER via Ambulatory with complaints of Leg Swelling, kb Breathing Difficulty. 08:58 The patient has shortness of breath at rest. Onset: The symptoms/episode began/occurred kb 1 month(s) ago, and became worse 3 day(s) ago. Duration: The symptoms are continuous. The patient's shortness of breath is aggravated by exertion, light activity, supine position, is alleviated by nothing. Associated signs and symptoms: Pertinent positives: lower extremity edema. Severity of symptoms: At their worst the symptoms were severe in the emergency department the symptoms are unchanged. The patient has experienced similar episodes in the past. The patient has been recently seen by a physician:. 09:12 Pt reports shortness of breath for the month of September, worse over the last [address] Nugent started her on lasix 40mg daily at the beginning of the month. She took 2 last night because the swelling and shortness of breath was so bad, but it didn't improve symptoms. Historical: - Allergies: 08:34 Sulfa (Sulfonamide Antibiotics); ss 08:34 Codeine; ss - PMHx: 08:34 diabetes mellitus; Hypertensive disorder; kidney problem; ss - Immunization history:: Client reports receiving the 2nd dose of the Covid vaccine. - Social history:: Smoking status: Patient denies any tobacco usage or history of. ROS: 08:46 Constitutional: Negative for fever, chills, and weight loss. kb 08:46 Cardiovascular: Positive for edema. 08:46 Respiratory: Positive for dyspnea on exertion, shortness of breath. 08:46 All other systems are negative. Exam: 08:36 ECG was reviewed by the Attending Physician. kb 08:46 Constitutional: This is a well developed, well nourished patient who is awake, alert, kb and in no acute distress. Head/Face: Normocephalic, atraumatic. ENT: Moist Mucous membranes Cardiovascular: Regular rate and rhythm with a normal S1 and S2. No gallops, murmurs, or rubs. No pulse deficits. Abdomen/GI: Soft, non-tender. No distention Skin: Warm, dry with normal turgor. Normal color. MS/ Extremity: Pulses equal, no cyanosis. Neurovascular intact. Full, normal range of motion. Neuro: Awake and alert, GCS 15, oriented to person, place, time, and situation. Moves all extremities. Normal gait. 08:46 Cardiovascular: Edema: 3+ edema to level of left foot and right foot. 08:46 Respiratory: moderate respiratory distress is noted, Respirations: labored breathing, Breath sounds: decreased breath sounds, are located in both bases. Vital Signs: 08:20 BP 133 / 69; Pulse 71; Resp 20; Temp 97.0; Pulse Ox 84% 3 lpm ; Weight 77.11 kg; Height ss 4 ft. 11 in. (149.86 cm); Pain 10/10; 08:34 Pulse Ox 93% on 4 lpm NC; ss 08:41 BP 92 / 58; Pulse 69; Resp 24; Pulse Ox 98% 4 lpm ; mb9 08:55 BP 102 / 53; Pulse 69; Resp 21; Pulse Ox 91% ; jl7 09:42 BP 99 / 52; Pulse 65; Resp 24; Pulse Ox 93% on 4 lpm NC; Pain 8/10; jl7 10:25 BP 111 / 72; Pulse 68; Resp 20; Pulse Ox 93% ; Pain 8/10; jl7 11:00 BP 105 / 54; Pulse 64; Resp 26; Pulse Ox 97% on 4 lpm NC; Pain 7/10; jl7 11:30 BP 105 / 55; Pulse 65; Resp 19; Pulse Ox 94% on 4 lpm NC; jl7 08:20 Body Mass Index 34.34 (77.11 kg, 149.86 cm) MDM: 08:29 Patient medically screened. kb 08:51 Data reviewed: vital signs, nurses notes. Data interpreted: Pulse oximetry: on 3L(s) kb per nasal canula, home o2 is 84 %. Interpretation: hypoxia. 08:51 Counseling: I had a detailed discussion with the patient and/or guardian regarding: the kb historical points, exam findings, and any diagnostic results supporting the discharge/admit diagnosis, the need for further work-up and treatment in the hospital. 10:01 Physician consultation: Benito Nugent MD was contacted at 10:02, regarding admission, to the ICU, patient's condition, and will see patient in unit. 10:11 Physician consultation: Jaxson Grover MD was contacted at 10:11, regarding consult, patient's condition. 10:11 Physician consultation: Dia Ann MD was contacted at 10:12, regarding consult, patient's condition, and will see patient in ED, shortly. 10/07 08:30 Order name: Basic Metabolic Panel; Complete Time: 10:34 kb 10/07 08:30 Order name: CBC with Diff; Complete Time: 08:52 kb 10/07 08:30 Order name: NT PRO-BNP; Complete Time: 10:34 kb 10/07 08:30 Order name: Troponin HS; Complete Time: 10:34 kb 10/07 09:19 Order name: COVID-19 SARS RT PCR; Complete Time: 10:53 kj1 10/07 10:02 Order name: SARS RAPID 10/07 10:29 Order name: COVID-19/FLU A+B 10/07 10:56 Order name: COVID-19/FLU A+B; Complete Time: 10:57 EDMS 10/07 14:10 Order name: Uric Acid; Complete Time: 14:11 EDMS 10/07 14:14 Order name: Electrolytes; Complete Time: 14:21 EDMS 10/07 14:25 Order name: PTH Intact; Complete Time: 14:29 EDMS 10/07 14:58 Order name: Vitamin D, 25 (OH), TOTAL EDMS 10/07 15:01 Order name: Osmolality, Serum EDMS 10/07 16:03 Order name: UR SODIUM EDMS 10/07 16:03 Order name: UR POTASSIUM EDMS 10/07 16:16 Order name: Urinalysis W/Microscopic EDMS 10/07 16:17 Order name: Creatine Phosphokinase EDMS 10/07 16:17 Order name: Troponin High Sensitivity EDMS 10/07 16:31 Order name: Glucose, Ancillary Testing EDMS 10/07 16:50 Order name: Osmolality, Urine EDMS 10/07 19:16 Order name: PTT, Activated Partial Thromb EDMS 10/07 21:38 Order name: Glucose, Ancillary Testing EDMS 10/07 23:45 Order name: Ptt, Activated wm 10/08 00:20 Order name: Electrolytes EDMS 10/08 00:25 Order name: PTT, Activated Partial Thromb EDMS 10/08 00:35 Order name: Phosphorus EDMS 10/08 00:35 Order name: Troponin High Sensitivity EDMS 10/08 00:35 Order name: Magnesium EDMS 10/08 06:54 Order name: CBC with Automated Diff EDMS 10/08 06:57 Order name: PTT, Activated Partial Thromb EDMS 10/07 08:30 Order name: XRAY Chest (1 view); Complete Time: 10:48 kb 10/07 08:30 Order name: EKG; Complete Time: 08:30 kb 10/07 08:30 Order name: Cardiac monitoring; Complete Time: 08:35 kb 10/07 08:30 Order name: EKG - Nurse/Tech; Complete Time: 08:35 kb 10/08 07:10 Order name: Electrolytes EDMS 10/08 07:10 Order name: Liver (Hepatic) Function EDMS 10/08 07:13 Order name: Basic Metabolic Panel EDMS 10/08 07:13 Order name: NT PRO-BNP EDMS 10/08 07:13 Order name: Magnesium EDMS 10/08 08:19 Order name: Glucose, Ancillary Testing EDMS 10/08 09:21 Order name: US EDAR 10/08 12:49 Order name: PTT, Activated Partial Thromb EDMS 10/08 15:48 Order name: Electrolytes EDMS 10/08 16:07 Order name: Glucose, Ancillary Testing EDMS 10/08 18:32 Order name: PTT, Activated Partial Thromb EDMS 10/08 18:44 Order name: Electrolytes EDMS 10/08 19:17 Order name: Troponin High Sensitivity EDMS 10/08 22:59 Order name: PTT, Activated Partial Thromb EDMS 10/08 23:01 Order name: Electrolytes EDMS 10/09 04:34 Order name: PTT, Activated Partial Thromb EDMS 10/09 04:47 Order name: Renal Panel EDMS 10/09 04:47 Order name: Magnesium EDMS 10/09 07:46 Order name: Urine Culture EDMS 10/09 08:17 Order name: Glucose, Ancillary Testing EDMS 10/09 12:05 Order name: PTT, Activated Partial Thromb EDMS 10/09 12:19 Order name: Troponin High Sensitivity EDMS 10/09 12:24 Order name: Electrolytes EDMS 10/07 08:30 Order name: IV Saline Lock; Complete Time: 08:38 kb 10/07 08:30 Order name: Labs collected and sent; Complete Time: 08:38 kb 10/07 08:30 Order name: O2 Per Protocol; Complete Time: 08:35 kb 10/07 08:30 Order name: O2 Sat Monitoring; Complete Time: 08:36 kb EC:36 Rate is 69 beats/min. Rhythm is regular. QRS [place] is Normal. DE interval is normal at kb 126 msec. QRS interval is normal at 88 msec. QT interval is normal at 430 msec. Administered Medications: 08:35 Drug: Lasix (furosemide) 40 mg Route: IVP; Site: right antecubital; jl7 10:40 Follow up: Response: No adverse reaction jl7 08:50 Drug: Zofran (Ondansetron) 4 mg Route: IVP; Site: right antecubital; jl7 09:05 Follow up: Response: No adverse reaction; Nausea unchanged jl7 09:06 Drug: Zofran (Ondansetron) 4 mg Route: IVP; Site: right antecubital; jl7 09:30 Follow up: Response: No adverse reaction; Nausea is decreased jl7 09:08 Drug: fentaNYL (PF) 25 mcg Route: IVP; Site: right antecubital; jl7 09:30 Follow up: Response: No adverse reaction; Pain is decreased jl7 10:40 Drug: fentaNYL (PF) 25 mcg Route: IVP; Site: right antecubital; jl7 11:00 Follow up: Response: No adverse reaction; Pain is decreased jl7 Disposition: 08:30 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 HPI: 67-year-old female ms3 presents for 1 month of swelling and shortness of breath. Patient states her shortness of breath became worse over the last 3 days and patient states she was unable to sleep last night. Patient states she increased her oxygen to 3 L nasal cannula. My personal exam of patient reveals: Patient is alert and oriented x4, in no apparent distress, nontoxic appearing. Heart rate and rhythm are regular without murmurs rubs or gallops. Lung sounds are diminished posteriorly. Patient with bilateral pedal edema. No rashes, no diaphoresis. 15:15 Co-signature as Attending Physician, Shiva Lind DO. ms3 Disposition Summary: 11/24/22 09:38 Hospitalization Ordered Hospitalization Status: Inpatient Admission kb Provider: Benito Nugent Condition: Fair kb Problem: an acute exacerbation kb Symptoms: are unchanged kb Bed/Room Type: Standard kb Location: Intensive Care Unit(10/09/22 12:46) kj1 Room Assignment: 6-(10/09/22 12:46) kj1 Diagnosis - Unspecified combined systolic (congestive) and diastolic (congestive) heart failure kb - Hypoxia kb - Hyponatremia kb - Acute on chronic renal failure kb Forms: - Medication Reconciliation Form kb - SBAR form kb Signatures: Dispatcher [employer] EDMS Rekha Altamirano, Zeny Haro RN RN ss Saulo Alejandro RN RN jl7 Danyell Altamirano kj1 Shiva Lind DO DO ms3 Corrections: (The following items were deleted from the chart) 09:30 09:12 Pt reports shortness of breath for the month of September, worse over the last 3 kb days. kb 10:13 09:38 Telemetry/MedSurg (Inpatient) kb kb 10:13 09:38 kb kb 14:22 10:13 Intensive Care Unit kb jl7 14:22 10:13 kb jl7 15:16 15:15 Critical Care: ms3 ms3 15:16 15:15 Critical care time: Bedside Care: 35 minutes, Consultation: 10 minutes. Total ms3 time: 45 minutes ms3 10/09 12:46 10/07 14:22 [facility] ER HOLD jl7 kj1 10/09 12:46 11 14:22 ERHOLD- jl7 kj1
[2022-10-07 10:31] LABS: Potassium 4.8 mmol/L (3.5-5.1)
[2022-10-07 10:34] LABS: Troponin High Sensitivity 1066.7 (<58.9)
--- NOTE | 2022-10-07 10:41 | P.CNS ---
Date of Consult: 10/07/22 Reason for Consult: Hyponatremia Requesting Physician: Benito Nugent History of Present Illness: 67F w/ PMHx of chronic hyponatremia, CKD 3-4, recent SCr 2.1 as of 09/16/2022, Htn, DM2, chronic diastolic HF, who p/w worsening BLE edema + SOB, found to have severe hyponatremia 120. She reports current symptoms have been ongoing for a month, & worse over the past couple of days. She has been taking salt tablets at home for her low serum Na. She is admitted for acute on chronic CHF w/ severe hyponatremia. She has 1+ BLE edema on exam. CXR +pulmo edema, +B/L pleural effusion. She is started on IV lasix. Urine chem showed secondary hyperaldosteronism physiology. SCr increased to 3.1 on adm. Allergies Sulfa (Sulfonamide Antibiotics) Allergy (Verified 09/15/22 22:27) Shortness of breath sulfamethoxazole [From Bactrim] Allergy (Verified 09/15/22 22:27) Shortness of breath trimethoprim [From Bactrim] Allergy (Verified 09/15/22 22:27) Shortness of breath Home Medications: Amlodipine [Norvasc] 10 mg PO DAILY 09/15/22 Aspirin [Vazalore] 81 mg PO DAILY 09/15/22 Atorvastatin Calcium 40 mg PO BID 09/15/22 Carvedilol [Coreg] 25 mg PO BID 09/15/22 Dorzolamide HCl/Timolol Maleat [Dorzolamide-Timolol Eye Drops] 1 ml OPTH BID 09/15/22 Flaxseed Oil 1,400 mg pe DAILY 09/15/22 Lisinopril [Zestril] 5 mg PO BID 09/15/22 Travoprost 2.5 ml OP DAILY 09/15/22 - Past Medical/Surgical History Diabetic: Yes - Social History Smoking Status: Never smoker Alcohol use: No CD- Drugs: No Caffeine use: Yes Review of Systems General: Weakness Eyes: Unremarkable ENT: Unremarkable Respiratory: Shortness of Breath, SOB with Excertion Cardiovascular: Unremarkable Gastrointestinal: Unremarkable Genitourinary: Unremarkable Musculoskeletal: Pedal edema Integumentary: Unremarkable Neurological: Unremarkable Lymphatics: Unremarkable Physical Examination General: Mild distress HEENT: Atraumatic, Normocephalic Neck: Supple Respiratory: Other (Symmetric chest expansion) Cardiovascular: No rubs, No murmurs Gastrointestinal: Soft and benign, No guarding Integumentary: No warmth Neurological: Normal speech, Normal tone Urinary: Other (No bladder distention) External genitalia: Deferred Rectal: Deferred Laboratory Data (last 24 hrs) 10/07/22 08:38: WBC 9.40, Hgb 9.8 L, Hct 29.1 L, Plt Count 378 10/07/22 08:38: Sodium 120 L, Potassium 4.8, BUN 43 H, Creatinine 3.10 H, Glucose 243 H Conclusions/Impression: # Hypotonic, hypervolemic, chronic, symptomatic, severe hyponatremia 2/2 high ADH state from acute cardiorespiratory issues + renal dysfxn +/- low solute state Serum Na 120 on adm F/u serum uric acid + osmolality Urine chem showed secondary hyperaldosteronism, high ADH physiology likely hiding in the background. Unable to start deborah bernadette / jordin d/t high normal serum K from renal failure. Give Tolvaptan 15 mg po x 1 now. Start Demeclocycline 150 mg po bid, as Tolvaptan is not immediately available She is already very Na overloaded. Avoid further Na load po or IV. Avoid NaCl tabs. Avoid LR, NS or any other Na-containing IV fluid. Fluid restriction 1.2L/d until serum Na consistently > 130 meq/L BNP sig elevated, CXR +pulmo edema +B/L pleural effusion L>R Lasix 80 mg IV q6 Keep serum K at 4.0 or higher Avoid hypoMg Check electrolyte profile q6h Long-term serum Na goal > 130 meq/L, to prevent imbalance/falls # OTONIEL 2/2 CRS1, on CKD 3-4 Serum Cr 3.1 on admission Recent SCr 2.1 as of 09/16/2022, F/u urinalysis, random urine chem, upcr, CPK, renal US Lasix IV as above # Acute on chronic diastolic HF Recent TTE showed normal LVEF, +DD, mod mitral regurg 1+ BLE edema CXR +pulmo edema, +B/L pleural effusion BNP sig elevated Lasix IV as above On O2 support Insert babcock now # Htn BP variable, monitor # DM2 Mngt per primary team
--- NOTE | 2022-10-07 10:45 | RAD REPORT ---
EXAM DESCRIPTION: Corey Single View10/07/2022 8:54 am CLINICAL HISTORY: sob COMPARISON: September FINDINGS: Small to moderate bilateral pleural effusions with bibasilar atelectasis Mild bilateral interstitial lung opacities. Heart is enlarged IMPRESSION: These findings probably indicate CHF
[2022-10-07 10:56] LABS: SARS-COV-2 RT PCR NEGATIVE (NEGATIVE)
[2022-10-07] MEDS ORDERED: AZITHROMYCIN 500 MG INJ IVPB ONE (11:11)
[2022-10-07] MEDS ORDERED: NA CHLORIDE 0.9% 250 ML ONE (11:11)
[2022-10-07] MEDS ORDERED: CEFTRIAXONE 1000 MG/VIAL ONE (11:11)
[2022-10-07] MEDS ORDERED: ALBUTEROL 2.5 MG/3 ML NEB SOL NEB PRN (13:07)
[2022-10-07] MEDS ORDERED: IPRATROPIUM BROM 0.5MG/2.5ML NEB PRN (13:07)
[2022-10-07] MEDS ORDERED: GLUCAGON 1 MG/VIAL IM PRN (13:24)
[2022-10-07] MEDS ORDERED: D10W 250 ML BAG IV PRN (13:35)
[2022-10-07] MEDS ORDERED: ASPIRIN EC 81 MG TAB PO ONE (14:00)
[2022-10-07] MEDS ORDERED: FUROSEMIDE 100 MG/10 ML VIAL IV ONE ×2 (14:03→20:28)
[2022-10-07 14:14] LABS: Potassium 4.8 mmol/L (3.5-5.1)
[2022-10-07] MEDS: FUROSEMIDE 40 MG/4 ML VIAL IV SCH ×2 (14:18→20:36)
[2022-10-07] MEDS ORDERED: ASPIRIN 81 MG CHEWABLE TABLET ONE (14:28)
[2022-10-07 15:57] LABS: Renal Epithelial <5 /HPF (None Seen); Specific Gravity 1.013 (1.005-1.030); Urine Bacteria >50 /HPF (<20); Urine Bilirubin NEGATIVE (Negative); Urine Blood Trace (Negative); Urine Clarity Turbid (Clear); Urine Color Yellow (Yellow); Urine Glucose NEGATIVE (Negative); Urine Mucus Slight /HPF (None Seen); Urine Protein 2+ (Negative); Urine Urobilinogen Normal (Normal); Urine WBC Clump Moderate /HPF (None Seen); Urine pH 5.5 (5.0-7.0)
[2022-10-07 16:17] LABS: Troponin High Sensitivity 1516.9 pg/mL (<58.9)
[2022-10-07] MEDS: INSULIN -REGULAR HUMAN 50 UNIT/0.5 ML ML SQ SCH ×2 (16:30→21:00)
[2022-10-07] MEDS ORDERED: FUROSEMIDE 20 MG/ 2ML VIAL IV SCH (17:00)
--- NOTE | 2022-10-07 18:06 | HP ---
Date of Admission: 10/07/2022 Chief Complaint: Shortness of breath, headache, and nausea. History Of Present Illness: This is a 67-year-old female patient who came into emergency room today with worsening shortness of breath, worsening leg swelling. She has been having some nausea lately which has not gotten any worse. No vomiting. She is also having some headache and nasal congestion. She takes her medications regularly, and last night, the patient says that she really had hard time breathing. She could not sleep at all. Every time she would try to lie down, she would have more shortness of breath, so she spent most of the night either sitting upright or standing. Early this morning, she came into emergency room. After she was evaluated in the ER, she was admitted to the hospital, and I saw her in the emergency room. Her was with her at bedside. Allergies: TO SULFA, CAUSING SHORTNESS OF BREATH. Medications: Atorvastatin 40 mg daily at bedtime, amlodipine 10 mg daily, aspirin 81 mg daily, Caltrate Plus D 1 tablet 2 times a day, furosemide 40 mg daily, carvedilol 25 mg 2 times a day, NovoLog insulin. She is also taking sodium bicarbonate 1 tablet daily 325 mg, fluticasone nasal spray 1 spray each nostril 2 times a day, azelastine nasal spray 1 spray each nostril 2 times a day, and Zofran 4 mg tablet 4 times a day as needed for nausea. Review of Systems: Cardiovascular: Has leg swelling, shortness of breath, paroxysmal nocturnal dyspnea and orthopnea. GI: Has some nausea. 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 ENT: Has a nasal and sinus congestion. All other systems reviewed and negative. Past Medical History: Significant for glaucoma, diabetic retinopathy, type 1 diabetes mellitus which was diagnosed in 1962 when she was 8 years old, hypertension, hyperlipidemia, peripheral vascular disease, probable coronary artery disease, chronic kidney disease. Her baseline creatinine used to be around 1.5, but as of this month, her creatinine is around 2.3-2.5 range. Past Surgical History: Cataract surgery, hysterectomy. Family History: Father had diabetes, cancer of esophagus. Mother had heart disease. Social History: Negative for smoking and alcohol use. Physical Examination: Vital signs: Temperature 97, pulse 71, respiratory rate 20, blood pressure 133/69, oxygen saturation was 84% on 3 L nasal cannula oxygen when she first arrived, and she was given 4 L nasal cannula oxygen and her oxygen saturation now is adequate around 93-94%. Height 4 feet 8 inches, weight 170 pounds. General: The patient appears weaker than normal, tired, not using accessory muscles of respiration at rest, but she has some difficulty breathing when she talks. HEENT: Head atraumatic, normocephalic. Conjunctivae nonerythematous. Sclerae white. Mouth, no thrush or edema noted. Ears/Nose, no mass, lesion, discharge noted. Neck: Supple. No JVD, lymph nodes, bruit, thyromegaly noted. Lungs: Bilateral equal air entry with diminished air entry in the lower lung merlos with presence of rales in lower lung merlos. Heart: JVD present. Heart sounds normal. No gallop. Abdomen: Soft, bowel sounds normal. No guarding, rigidity, tenderness, mass, hepatosplenomegaly, distention, or bruit noted. Extremities: Bilateral grade 2 to grade 3 pedal edema. Skin: No rash, ulcer, cellulitis. Lymphatics: No lymph node enlargement in neck, supraclavicular, infraclavicular region. Neuro: No focal neurological deficit. Chest: Unremarkable. External Genitalia: Deferred. Rectal: Deferred. Laboratory Data: White count 9.4, hemoglobin 9.8, platelets 378. Sodium 120, potassium 4.8, chloride 85, bicarb 25, BUN 43, creatinine 3.10, glucose 243. Calcium 9. Troponin 1066. ProBNP 13,570. The patient had echocardiogram done during last hospital admission on September 16, 2022, showed moderate diastolic dysfunction. Ejection fraction of 59%, left atrial enlargement with moderate mitral regurgitation. Impression: 1. Chronic diastolic heart failure with acute exacerbation. 2. Hyponatremia. 3. Chronic kidney disease stage 4. 4. Probable coronary artery disease. 5. Anemia due to chronic kidney disease. 6. Hypertension. 7. Type 1 diabetes mellitus with diabetic retinopathy. 8. Type 1 diabetes mellitus with diabetic chronic kidney disease. 9. Hyperlipidemia. 10. Peripheral vascular disease. Plan: We will admit the patient to hospital for further evaluation and management of this problem. The patient is appropriate for inpatient and is expected to spend 2 midnights in hospital. For her hypertension, we will continue her antihypertensive medications amlodipine and carvedilol per order. For her hyperlipidemia, continue her statin therapy. The patient probably has underlying coronary artery disease which has never been studied as for long time I kept on asking her to visit flask cleaner and she was not willing to do that and now her renal function is lot worse than the baseline, so doing cardiac cath will definitely put her at risk of permanent renal failure requiring hemodialysis, so noninvasive way of investigating and medical management is probably the best way to handle it at this point unless flask cleaner has different recommendation. We will consult flask cleaner for their input. Continue aspirin therapy. We will also give her heparin 5000 units subcutaneous injection 2 times a day for DVT prophylaxis. For renal failure and hyponatremia, we will consult her linoleum layer helper, Dr. Solano. 40 mg Lasix IV was given in the emergency room for her congestive heart failure, and we will continue that 2 times a day. Monitor intake, output, daily weight, and we will monitor renal function and electrolytes on a daily basis. Our plan is to admit her to intensive care unit for close monitoring, and I also discussed with her in presence of her regarding advance directives. She has not given any thoughts about it. Has not made any decision, so I did encourage her that she should communicate with her regarding this important decision and she was told that as a default, she will remain full code unless she has different decisions or different opinion, and then, she needs to inform me about that. Overall, prognosis is poor. I will see her tomorrow for followup. GURJIT/MODL Voice ID: [id number] ADITHYA
[2022-10-07] MEDS ORDERED: MAGNESIUM HYDROXIDE 8% 30 ML PO ONE (18:08)
[2022-10-07] MEDS: DEMECLOCYCLINE HCL 150 MG TABLET PO SCH ×2 (18:41→21:00)
[2022-10-07] MEDS ORDERED: HEPARIN/D5W 25,000 UNIT/500 ML BAG IV SCH ×2 (19:00)
[2022-10-07] MEDS ORDERED: ATORVASTATIN 20 MG TAB ONE (19:53)
[2022-10-07] MEDS ORDERED: HEPARIN/D5W 25,000 UNIT/500 ML BAG IV ONE (19:54)
[2022-10-07] MEDS ORDERED: MAGNESIUM HYDROXIDE 8% 30 ML ONE (19:54)
[2022-10-07] MEDS ORDERED: DIAZEPAM 10 MG/2 ML INJ SYRINGE ONE (19:57)
[2022-10-07] MEDS ORDERED: HEPARIN 5000 UNIT/ML 1 ML VIAL ONE (20:28)
[2022-10-07] MEDS: carvediloL 12.5 MG TAB PO SCH (20:36)
[2022-10-07] MEDS: AMLODIPINE 5 MG TAB PO SCH (20:37)
[2022-10-07] MEDS: ATORVASTATIN 40 MG TAB PO SCH (21:00)
[2022-10-07] MEDS ORDERED: HEPARIN 5000 UNIT/ML 1 ML VIAL SQ SCH (21:00)
[2022-10-07] MEDS: FLUTICASONE 50MCG NASAL SPRAY NAS SCH (21:00)
[2022-10-07] MEDS: AZELASTINE NASAL SPRAY 30 ML NAS SCH (21:00)
[2022-10-07] MEDS: FENTANYL CITR 100 MCG/2 ML IV PRN (21:00)
[2022-10-08 00:20] LABS: Potassium 4.7 mmol/L (3.5-5.1)
[2022-10-08 00:30] LABS: Magnesium 2.3 mg/dL (1.8-2.4); Phosphorus 5.9 mg/dL (2.5-4.9)
[2022-10-08 00:35] LABS: Troponin High Sensitivity 1762.8 pg/mL (<58.9)
[2022-10-08] MEDS ORDERED: ALBUTEROL 2.5 MG/3 ML NEB SOL ONE (03:40)
[2022-10-08] MEDS ORDERED: IPRATROPIUM BROM 0.5MG/2.5ML ONE (03:41)
[2022-10-08] MEDS ORDERED: FUROSEMIDE 100 MG/10 ML VIAL IV ONE (03:54)
[2022-10-08] MEDS: FUROSEMIDE 40 MG/4 ML VIAL IV SCH ×4 (03:59→22:00)
[2022-10-08 06:53] LABS: Absolute Lymphocytes (CBC) 0.6 K/uL (0.7-4.9); Hematocrit 27.9 % (36.0-45.0); Lymphocytes % 5.5 % (15.3-44.8); MCV 94.9 fL (80-100); MPV 9.6 fL (7.6-11.3); RBC Red Blood Cell Count 2.94 M/uL (3.86-4.86)
[2022-10-08 07:10] LABS: Albumin 3.3 g/dL (3.4-5.0); Bilirubin Direct 0.2 mg/dL (0-0.2); Bilirubin Total 0.4 mg/dL (0.2-1.0); Potassium 4.6 mmol/L (3.5-5.1)
[2022-10-08 07:13] LABS: Magnesium 2.6 mg/dL (1.8-2.4); Potassium 4.6 mmol/L (3.5-5.1)
[2022-10-08] MEDS: INSULIN -REGULAR HUMAN 50 UNIT/0.5 ML ML SQ SCH ×4 (07:30→21:00)
[2022-10-08] MEDS ORDERED: PNEUMOCOCCAL VACCINE 0.5 ML IMVAC ONE ×2 (08:00→08:52)
[2022-10-08] MEDS ORDERED: ASPIRIN EC 81 MG TAB PO ONE (08:41)
[2022-10-08] MEDS: AZELASTINE NASAL SPRAY 30 ML NAS SCH ×2 (08:58→21:00)
[2022-10-08] MEDS: ASPIRIN EC 81 MG TAB PO SCH (08:58)
[2022-10-08] MEDS: carvediloL 12.5 MG TAB PO SCH ×2 (08:58→21:00)
[2022-10-08] MEDS: FLUTICASONE 50MCG NASAL SPRAY NAS SCH ×2 (08:59→21:00)
[2022-10-08] MEDS: AMLODIPINE 5 MG TAB PO SCH ×2 (08:59→21:00)
--- NOTE | 2022-10-08 09:20 | RAD REPORT ---
EXAM DESCRIPTION: US - Renal Ultrasound-Complete - 10/08/2022 8:43 am CLINICAL HISTORY: Acute renal failure COMPARISON: 2020 FINDINGS: The right kidney measures 10 cm with an increased echotexture. Mild renal cortical thinnin g. The left kidney measures 11 cm with an increased echotexture. Hydronephrosis is not seen. Corado catheter is present within a collapsed bladder IMPRESSION: Mildly increased renal echotexture may indicate parenchymal disease No hydronephrosis
[2022-10-08] MEDS: ONDANSETRON 4 MG/2 ML VIAL IV PRN ×2 (10:45→20:06)
[2022-10-08] MEDS: FENTANYL CITR 100 MCG/2 ML IV PRN ×2 (10:45→21:42)
[2022-10-08] MEDS ORDERED: ONDANSETRON 4 MG/2 ML VIAL ONE ×2 (10:49→20:00)
[2022-10-08] MEDS ORDERED: FENTANYL CITR 100 MCG/2 ML ONE ×2 (10:49→21:30)
[2022-10-08] MEDS ORDERED: TOLVAPTAN 15 MG TABLET PO ONE (12:00)
[2022-10-08] MEDS ORDERED: FUROSEMIDE 40 MG/4 ML VIAL ONE ×2 (12:28→17:44)
--- NOTE | 2022-10-08 14:44 | P.PN ---
Subjective Date of Service: 10/08/22 Subjective: Other (Reports having SOB.) Physical Examination - Vital Signs Temperature: 98 F Blood Pressure: 108/82 Pulse: 70 Respirations: 18 Pulse Ox (%): 96 - Physical Exam General: Mild distress HEENT: Atraumatic, Normocephalic Neck: Supple Respiratory: Other (Symmetric chest expansion) Cardiovascular: No rubs, No murmurs Gastrointestinal: Soft and benign, No guarding Musculoskeletal: Swelling Integumentary: No warmth Neurological: Normal speech, Normal tone Urinary: Babcock catheter, Other (No bladder distention) External genitalia: Deferred Rectal: Deferred Assessment And Plan - Plan # Hypotonic, hypervolemic, chronic, symptomatic, severe hyponatremia 2/2 high ADH state from acute cardiorespiratory issues + renal dysfxn +/- low solute st ate Serum Na 120 on adm, at 121 today Urine chem showed secondary hyperaldosteronism, high ADH physiology likely hiding in the background. Unable to start deborah bernadette / jordin d/t high normal serum K from renal failure. Give Tolvaptan 15 mg po x 1 now. Received tolvaptan this pm Start Demeclocycline 150 mg po bid, as Tolvaptan is not easily available She is already very Na overloaded. Avoid further Na load po or IV. Avoid NaCl tabs. Avoid LR, NS or any other Na-containing IV fluid. Cont fluid restriction 1.2L/d until serum Na consistently > 130 meq/L BNP sig elevated, CXR +pulmo edema +B/L pleural effusion L>R Lasix 40 mg IV q6 x 4 doses Keep serum K at 4.0 or higher Avoid hypoMg Check electrolyte profile q6h Long-term serum Na goal > 130 meq/L, to prevent imbalance/falls # OTONIEL 2/2 CRS1, on CKD 3-4 Serum Cr 3.1 on admission Recent SCr 2.1 as of 09/16/2022, Urinalysis +proteinuria/hematuria/pyuria random urine chem +secondary hyperaldo Renal US unremarkable CPK wnl, no rhabdo Lasix IV as above # Acute on chronic diastolic HF Recent TTE showed normal LVEF, +DD, mod mitral regurg 1+ BLE edema CXR +pulmo edema, +B/L pleural effusion BNP sig elevated Lasix IV as above On O2 support Cont babcock # Htn BP variable, monitor # DM2 Mngt per primary team # Hyperuricemia Monitor for now
[2022-10-08 15:45] LABS: Potassium 5.1 mmol/L (3.5-5.1)
[2022-10-08 18:42] LABS: Potassium 4.9 mmol/L (3.5-5.1)
--- NOTE | 2022-10-08 19:17 | CON ---
Date of Consultation: 10/07/2022 Reason For Consultation: Shortness of breath. History Of Present Illness: This 67-year-old female presented to the emergency room with worsening s hortness of breath, lower extremity edema as well as orthopnea and nausea. No chest pain. The patie nt is not known to have any history of cardiac disease. Denies having any exertional chest pain or d iaphoresis or dysuria. There are no other complaints. Past Medical History: As outlined above in the HPI. She has a history off diabetes type 1 that was diagnosed in 1962, hypertension, dyslipidemia, peripheral vascular disease, coronary artery disease, and chronic kidney disease. Medications: Refer to reconciliation sheet for detailed list. Allergies: SULFA AND BACTRIM. Family History: No premature coronary artery disease or cancer. Social History: She does not smoke or drink. Does not use any drugs. Review of Systems: All systems reviewed and they were negative except for mentioned in HPI. Physical Examination: Vital Signs: Reviewed. Head And Neck: Pupils are equal and reactive to light. Positive JVD. No cervical lymphadenopathy. Neck is supple. Thyroid is not enlarged. Lungs: Clear to auscultation bilaterally. No rhonchi, wheezing, or crackles. No accessory muscle u se. Heart: Regular rate and rhythm. No extra sounds. Abdomen: Soft, nontender. Bowel sounds positive. No organomegaly. No masses or hernia. No rigidi ty or rebound. Extremities: No clubbing or cyanosis. Intact pulses. Positive edema. Skin: No rash. No nodules. Neurologic: Alert, awake, and oriented x3. No acute focal deficits appreciated. Lymph Nodes. No cervical or axillary lymphadenopathy. Investigations: Troponins 17 and 62. BUN is 49, creatinine 3.35, sodium is 121. Chest x-ray with C HF. Assessment And Recommendation: 1.Acute congestive heart failure and fluid overload with advanced kidney disease. I agree with Lasi x IV and monitor electrolytes, BUN, and creatinine. Likely her sodium level is low due to significan t fluid retention status. Nephrology is on board and I will follow the patient with you. 2.Elevated troponin. There is no chest pain. Definitely coronary artery disease and ischemia is a possibility; however, patient does not have any chest pain, but she has diabetes for a long time, so this could be still an acute coronary syndrome. I recommend to start her on IV heparin and baby aspi rin and obtain an echocardiogram. This patient will need coronary angiogram as soon as her fluid sta tus is more stable. 3.Advanced kidney disease, likely due to longstanding diabetes history. Nephrology is on board. At this point, my recommendation for ischemia workup would be a stress test due to advanced kidney fail ure and coronary angiogram, only if the stress test is abnormal. I will discuss this further with Dr Telma Nugent and Nephrology. /JOHNL Voice ID: [id number] Report ID: [id number]
--- NOTE | 2022-10-08 19:56 | PN ---
Date of Progress Note: 10/08/2022 Subjective: Seen by bedside. She is clinically slightly better, requiring BiPAP while asleep. Review of Systems: Positive for shortness of breath, orthopnea, and lower extremity edema. No nausea, vomiting, or diar spencer. No dysuria, polyuria, or urinary urgency. All other systems reviewed and they are negative. Physical Examination: Vital signs: Reviewed. Head and Neck: Pupils are equal and reactive to light. Intact eye movements. Positive JVD. No cer vical lymphadenopathy. Neck is supple. Thyroid is not enlarged. Lungs: Decreased breathing sounds with crackles in both bases. No accessory muscle use or muscle re traction. Heart: Irregular. No extra sounds. Abdomen: Soft, nontender. Bowel sounds positive. No organomegaly. No masses or hernia. No rigidi ty or rebound. Extremities: 1 to 2+ pitting edema bilaterally. No clubbing or cyanosis. Intact pulses. Skin: No rashes. Neurologic: Alert and awake. No acute focal deficits appreciated. Investigations: Sodium 121, BUN 49, and creatinine 3.35. Assessment And Recommendation: 1.Acute decompensated congestive heart failure, improving slowly. I agree with BiPAP and aggressive diuresis. This patient has advanced kidney disease, however, and she might require dialysis in the near future. 2.Elevated troponin. This could be acute coronary syndrome. Please trend troponin further until it trends down and obtain echocardiogram. Continue IV heparin and aspirin. Obtain a nuclear stress te st once feasible to determine the further workup plan, trying to avoid left heart catheterization unless she has grossly abnormal stress test and that is du e to advanced kidney disease. /JOHNL Voice ID: [id number] Report ID: [id number]
[2022-10-08] MEDS: ATORVASTATIN 40 MG TAB PO SCH (21:00)
[2022-10-08] MEDS ORDERED: DEMECLOCYCLINE HCL 150 MG TABLET PO SCH (21:00)
[2022-10-08] MEDS ORDERED: ATORVASTATIN 20 MG TAB ONE (22:17)
[2022-10-09] MEDS ORDERED: FUROSEMIDE 40 MG/4 ML VIAL ONE ×2 (00:53→05:13)
[2022-10-09] MEDS: DEMECLOCYCLINE HCL 150 MG TABLET PO SCH ×3 (01:00→21:29)
[2022-10-09] MEDS ORDERED: FENTANYL CITR 100 MCG/2 ML ONE ×2 (02:28→09:30)
[2022-10-09] MEDS: FENTANYL CITR 100 MCG/2 ML IV PRN ×3 (02:34→15:18)
[2022-10-09 04:46] LABS: Albumin 3.2 g/dL (3.4-5.0); Magnesium 2.4 mg/dL (1.8-2.4); Phosphorus 5.6 mg/dL (2.5-4.9); Potassium 4.8 mmol/L (3.5-5.1)
[2022-10-09] MEDS ORDERED: HEPARIN/D5W 25,000 UNIT/500 ML BAG IV ONE (05:13)
[2022-10-09] MEDS: FUROSEMIDE 40 MG/4 ML VIAL IV SCH ×4 (05:15→21:29)
[2022-10-09] MEDS: INSULIN -REGULAR HUMAN 50 UNIT/0.5 ML ML SQ SCH ×4 (07:30→20:48)
[2022-10-09] MEDS ORDERED: ASPIRIN EC 81 MG TAB PO ONE (08:51)
[2022-10-09] MEDS: FLUTICASONE 50MCG NASAL SPRAY NAS SCH ×2 (08:58→20:47)
[2022-10-09] MEDS: ASPIRIN EC 81 MG TAB PO SCH (08:58)
[2022-10-09] MEDS: AZELASTINE NASAL SPRAY 30 ML NAS SCH ×2 (08:58→20:46)
[2022-10-09] MEDS: ONDANSETRON 4 MG/2 ML VIAL IV PRN ×3 (09:30→18:54)
[2022-10-09] MEDS ORDERED: ONDANSETRON 4 MG/2 ML VIAL ONE (09:36)
--- NOTE | 2022-10-09 09:41 | P.CNS ---
Date of Consult: 10/09/22 Reason for Consult: Respiratory failure bilateral effusions Chief Complaint: Hypoxemia shortness of breath History of Present Illness: Patient is 67 years of age with end-stage renal disease and diastolic heart failure admitted with worsening dyspnea has severe bilateral pleural effusion was recently discharged on oxygen Allergies Sulfa (Sulfonamide Antibiotics) Allergy (Verified 09/15/22 22:27) Shortness of breath sulfamethoxazole [From Bactrim] Allergy (Verified 09/15/22 22:27) Shortness of breath trimethoprim [From Bactrim] Allergy (Verified 09/15/22 22:27) Shortness of breath Home Medications: Amlodipine [Norvasc] 10 mg PO DAILY 09/15/22 Aspirin [Vazalore] 81 mg PO DAILY 09/15/22 Atorvastatin Calcium 40 mg PO BID 09/15/22 Carvedilol [Coreg] 25 mg PO BID 09/15/22 Dorzolamide HCl/Timolol Maleat [Dorzolamide-Timolol Eye Drops] 1 ml OPTH BID 09/15/22 Flaxseed Oil 1,400 mg pe DAILY 09/15/22 Lisinopril [Zestril] 5 mg PO BID 09/15/22 Travoprost 2.5 ml OP DAILY 09/15/22 - Past Medical/Surgical History Diabetic: Yes -: DM -: HTN -: Renal Failure - Social History Smoking Status: Never smoker Alcohol use: No CD- Drugs: No Caffeine use: Yes Place of Residence: Home Review of Systems General: Weakness Respiratory: Shortness of Breath Physical Examination Temp Pulse Resp BP Pulse Ox 98 F 75 27 H 126/71 92 10/09/22 06:22 10/09/22 09:00 10/09/22 09:00 10/09/22 09:00 10/09/22 09:00 General: Alert, Oriented x3, Mild distress Respiratory: Crackles/rales Cardiovascular: No edema, Regular rate/rhythm, Normal S1 S2 Gastrointestinal: Normal bowel sounds, Soft and benign - Problems (1) Respiratory failure Current Visit: Yes Status: Acute Plan: Patient is 67 years of age admitted with acute on chronic diastolic heart failure stage renal disease in addition patient also has hyponatremia currently seen by nephrology is on demeclocycline and Lasix T scan shows bilateral pleural effusion patient is troponins were in the thousands we will order an arterial blood gas continue with diuresis patient has symmetrical bilateral pleural effusions no indications for thoracentesis right now continue with high flow oxygen Qualifiers: Chronicity: acute on chronic
[2022-10-09 12:24] LABS: Potassium 4.8 mmol/L (3.5-5.1)
--- NOTE | 2022-10-09 14:05 | P.PN ---
Subjective Date of Service: 10/09/22 Chief Complaint: Hypoxemia shortness of breath Subjective: Other (C/o persistent SOB.) Physical Examination - Vital Signs Temperature: 98 F Blood Pressure: 124/65 Pulse: 70 Respirations: 19 Pulse Ox (%): 99 - Physical Exam General: Mild distress HEENT: Atraumatic, Normocephalic Neck: Supple Respiratory: Other (Symmetric chest expansion) Cardiovascular: No rubs, No murmurs Gastrointestinal: Soft and benign, No guarding Musculoskeletal: Swelling Integumentary: No warmth Neurological: Normal speech, Normal tone Urinary: Other (No bladder distention) External genitalia: Deferred Rectal: Deferred Assessment And Plan - Plan # Hypotonic, hypervolemic, chronic, symptomatic, severe hyponatremia 2/2 high ADH state from acute cardiorespiratory issues + renal dysfxn +/- low solute state Serum Na 120 on adm Serum Na unimproved at 120. Given ongoing secondary hyperaldo & low GFR, would be difficult to correct hypoNa w/ tolvaptan or demeclocycline alone & unable to give jordin. Insert PICC. Start 3% saline gtt 50 cc/hr. Check lytes q4h Resume IV lasix 40 mg IV q6h x 8 doses to avoid further Na overload from hypertonic saline Keep serum K at 4.0 or higher Avoid hypoMg Encourage po solid food intake Start Demeclocycline 150 mg po bid, plan long-term Check electrolyte profile q6h Long-term serum Na goal > 130 meq/L, to prevent imbalance/falls # OTONIEL 2/2 CRS1, on CKD 3-4 Serum Cr 3.1 on admission, at 3.5 today Recent SCr 2.1 as of 09/16/2022, Urinalysis +proteinuria/hematuria/pyuria random urine chem +secondary hyperaldo Renal US unremarkable CPK wnl, no rhabdo Lasix IV as above # Acute on chronic diastolic HF Recent TTE showed normal LVEF, +DD, mod mitral regurg 1+ BLE edema CXR +pulmo edema, +B/L pleural effusion BNP sig elevated Lasix IV as above On O2 support Cont babcock # Htn BP variable, monitor # DM2 Mngt per primary team # Hyperuricemia Monitor for now
[2022-10-09] MEDS: NA CHLORIDE 3% 500 ML IV SCH ×2 (14:45→17:00)
[2022-10-09] MEDS ORDERED: INSULIN GLARGINE 100 UNIT/ML SQ ONE (15:00)
--- NOTE | 2022-10-09 15:24 | RAD REPORT ---
EXAM DESCRIPTION: CTAbdomen Pelvis Wo Contrast - 10/09/2022 3:06 pm CLINICAL HISTORY: Abdominal Pain COMPARISON: Renal Ultrasound-Complete dated 10/08/2022; Renal Ultrasound-Complete dated 06/17/2021 TECHNIQUE: CT of the abdomen and pelvis was performed. All CT scans are performed using dose optimization technique as appropriate and may include automated exposure control or mA/KV adjustment according to patient size. FINDINGS: Lower chest: Mild to moderate pleural effusions. Underlying atelectasis. Coronary artery c alcifications. Liver: Hypoattenuating lesion in the right hepatic lobe measuring 3.4 cm. Biliary: No biliary ductal dilatation. Cholelithiasis. Stomach: No significant focal abnormality. Duodenum: No significant focal abnormality. Pancreas: No significant abnormality. Spleen: No significant abnormality. Adrenal: No suspicious lesions. Kidney/ureter: No hydronephrosis. No renal calculi. Renal cortical thinning. Retroperitoneum: No retroperitoneal adenopathy. Vascular: No aneurysm. Advanced atherosclerosis. Bowel: No significant focal abnormality. Peritoneum: Small volume of ascites. Body wall edema. Hypoattenuating structure with anterior to the right hepatic lobe measuring 1.7 cm is of uncertain etiology. Bladder: Grossly unremarkable. Reproductive: No adnexal masses. Bones: No acute fracture. Multilevel degenerative changes are present in the spine. Other: n/a IMPRESSION: 1. Anasarca with effusions and ascites. 2. Right hepatic lobe lesion that is indeterminate. If the patient cannot have contrast, recommend ul trasound further evaluation. 3. Hypoattenuating structure along the anterior aspect of the right hepatic lobe. This is of uncertai n etiology. It has a similar density to gallstones in the gallbladder but does not appear contiguous. Correlate with LFTs. It may be of little clinical significance.
[2022-10-09 16:19] LABS: Potassium 5.4 mmol/L (3.5-5.1)
--- NOTE | 2022-10-09 17:12 | RAD REPORT ---
EXAM DESCRIPTION: RAD - Chest Single View - 10/09/2022 5:03 pm CLINICAL HISTORY: central line placement COMPARISON: Chest Single View dated 10/07/2022; Chest Single View dated 09/16/2022; Chest Single View dated 09/15/2022; Thorax Wo Con dated 10/09/2022 FINDINGS: Lines: PICC with tip overlying the right atrium. Lungs: Probable edema. Atelectasis as a result of the effusions. Pleural: Moderate pleural effusions. Cardiac: Cardiomegaly. Mediastinum: Within normal limits. Bones: No acute fractures. Other: None IMPRESSION: 1. Pulmonary edema with moderate effusions. 2. PICC tip overlying the low right atrium. Suggest retracting by 4.5 cm for more optimal positioning .
[2022-10-09] MEDS ORDERED: NA CHLORIDE 3% 500 ML IV SCH ×2 (17:13→21:20)
[2022-10-09 18:29] LABS: Blood O2 Saturation 92.2 % (92-98.5)
[2022-10-09] MEDS: ATORVASTATIN 40 MG TAB PO SCH (20:46)
--- NOTE | 2022-10-09 21:45 | PN ---
Date of Progress Note: 10/09/2022 Subjective: Patient was seen this morning for followup. She was lying in bed in emergency room, sti ll waiting for ICU bed to be available and her was with her. Today, she was not feeling good . Yesterday, she requested as her breathing got worse, after I saw her, to be placed on BiPAP, which initially she had refused it when she first came into the hospital, but after she agreed yesterday a nd her difficulty breathing got worse, she was placed on BiPAP. This morning when I saw her, she was back on nasal cannula oxygen. She appeared very uncomfortable, not using any accessory muscles of r espiration, but just reported that she is just not feeling good and has generalized aches and pain. Has nausea, but no vomiting. Objective: Vital Signs: Reviewed. HEENT: Unremarkable. Lungs: Bilateral equal air entry with diminished to absent breath sounds in lower lung merlos. Heart: Sounds normal. Abdomen: Soft. Bowel sounds normal. No guarding, rigidity, tenderness, or distention. Extremity: Trace leg edema. Laboratory Data: Sodium 121, potassium 4.8, chloride 82, bicarb 26, BUN 55, creatinine 3.45, estimat ed GFR 14, and glucose 224. Impression: 1.Chronic diastolic heart failure with acute exacerbation. 2.Probable coronary artery disease. 3.Chronic kidney disease stage 4. 4.Hypertension. 5.Diabetes mellitus, type 1. 6.Acute respiratory failure with hypoxia. Plan: We will go ahead and continue oxygen replacement therapy. Continue to use BiPAP as needed. W e will continue heparin drip per order of outreach liaison and follow up with outreach liaison. We will also continue to follow with bath mixer. When I saw the patient, her glucose level was 119 as checked by the patient's with her glucometer and the patient's and the patient as well as I w as concerned about further drop in the glucose level because she really has very poor appetite and th is morning before I saw her, she only had couple of spoons of food and after that she refused to eat. The patient is on continuous insulin pump, which is being managed by her secretary administrative assistant, Dr. Yeboah. I reviewed her basal insulin rate setting on the pump and as I was there in the room, subsequently d ropped down to 97. Today her insulin pump was due to be changed and she changes it every 3 days. So after talking to patient's and the patient, my concern was hypoglycemia in view of continuou s use of insulin pump and poor oral intake, so we decided to discontinue insulin pump and plan was to manage her diabetes with subcutaneous insulin injection. Subsequently as ICU bed became available, the patient was transferred upstairs to ICU and her sugars started to go up, so this afternoon we gav e her 10 units of Lantus insulin subcutaneous injection x1 dose and she did have some Glucerna late t his morning, early afternoon and her glucose went up to 297 around 04:30 to 5 p.m. and the patient wa s not feeling comfortable not going back on insulin and I agreed to put her back on insulin pump and her brought her insulin pump from home and the patient will place her new pump today with bas al rate only, no bolus to be given. Overall prognosis is guarded in view of her kidney failure and h eart disease that we are concerned about along with congestive heart failure. She may run into troub le with IV access so I have asked nursing staff to communicate with the bath mixer to see what kind of central access the bath mixer would prefer in case if they plan to start hemodialysis in future . GURJIT/MODL Voice ID: [id number] Report ID: [id number]
--- NOTE | 2022-10-09 21:48 | PN ---
Date of Progress Note: 10/08/2022 Subjective: Patient was seen this morning for followup. No new complaints or problems reported by marcelo shawna except she was just not comfortable. She has generalized discomfort and obviously shortness o f breath, which has actually improved compared to yesterday and she overall looks a little better tod ay compared to yesterday and not in any respiratory distress. Objective: Vital Signs: Reviewed. HEENT: Unremarkable. Lungs: Bilateral equal air entry with diminished air entry to absent breath sounds in lower lung fie lds. Not using any accessory muscles of respiration. Heart: Sounds normal. Abdomen: Soft. Bowel sounds normal. No guarding, rigidity, tenderness, or distention. Extremities: Bilateral trace leg edema. Laboratory Data: White count 11.6, hemoglobin 9.3, and platelets 332. Sodium 121, potassium 4.6, ch loride 85, bicarb 24, BUN 49, creatinine 3.35, estimated GFR 15, and glucose 172. Impression: 1.Congestive heart failure, chronic, diastolic, with acute exacerbation. 2.Chronic kidney disease stage 4. 3.Type 1 diabetes mellitus. 4.Hyponatremia. 5.Hypertension. 6.Probable coronary artery disease. Plan: We will go ahead and continue to follow up with early childhood lead teacher, who is managing patient's hypona tremia and renal failure problem. The patient is on IV Lasix per early childhood lead teacher and we will continue t hat. She is also on IV heparin drip and we will continue to follow up with Cardiology Service. [facility] patient's electrolyte and renal function. For diabetes management, she is on insulin pump and we will continue that. She is still in the emergency room as we are waiting for ICU room. GURJIT/MODL Voice ID: [id number] Report ID: [id number]
[2022-10-10 00:41] LABS: Potassium 4.9 mmol/L (3.5-5.1)
--- NOTE | 2022-10-10 01:48 | PN ---
Date of Progress Note: 10/09/2022 Subjective: Seen by bedside. Doing slightly better. Review of Systems: No chest pain, but has shortness of breath. Some lower extremity edema that is gradually improving. Physical Examination: Vital Signs: Reviewed. Head and Neck: Pupils are equal, reactive to light. Intact eye movements. Positive JVD. No cervic al lymphadenopathy. Neck is supple. Thyroid is not enlarged. Lungs: Rhonchi bilaterally with faint crackles in bases. No accessory muscle use or muscle retracti on. Heart: Irregular. No extra sounds. Abdomen: Soft, nontender. Bowel sounds positive. No organomegaly. No masses or hernia. No rigidi ty or rebound. Extremities: Edema bilaterally. No clubbing or cyanosis. Intact pulses. Skin: No rash. Neurologic: Alert, awake. No acute focal deficits appreciated. Investigations: Labs were reviewed. Assessment And Recommendations: 1.Non-ST elevation myocardial infarction versus demand ischemia. Recommend to continue IV heparin d rip for therapeutic PTT and continue aspirin. Once her condition is stable, the patient will need co ronary angiogram. 2.Acute hypoxic respiratory failure with congestive heart failure likely a cause. The patient will need diuresis; however, her sodium is very low, so tolvaptan will probably be a good option. We will check with the pharmacy and see if the medication and plan for starting it along with IV diuresis. 3.Advanced kidney failure, probably her and the congestive heart failure. Nephrology is on board and the patient might require dialysis. SR/MODL Voice ID: [id number] Report ID: [id number]
[2022-10-10] MEDS ORDERED: NA CHLORIDE 3% 500 ML ONE (02:06)
[2022-10-10] MEDS ORDERED: NA CHLORIDE 3% 500 ML IV SCH ×2 (03:13→07:19)
[2022-10-10] MEDS: FUROSEMIDE 40 MG/4 ML VIAL IV SCH ×4 (03:20→21:17)
[2022-10-10 06:32] LABS: Absolute Lymphocytes (CBC) 0.6 K/uL (0.7-4.9); Hematocrit 25.6 % (36.0-45.0); Lymphocytes % 6.2 % (15.3-44.8); MCV 95.1 fL (80-100); MPV 9.9 fL (7.6-11.3); RBC Red Blood Cell Count 2.69 M/uL (3.86-4.86)
[2022-10-10 06:46] LABS: Albumin 2.7 g/dL (3.4-5.0); Magnesium 2.5 mg/dL (1.8-2.4); Phosphorus 4.8 mg/dL (2.5-4.9); Potassium 4.3 mmol/L (3.5-5.1)
[2022-10-10] MEDS: INSULIN -REGULAR HUMAN 50 UNIT/0.5 ML ML SQ SCH ×4 (07:30→21:00)
--- NOTE | 2022-10-10 08:05 | P.PN ---
Subjective Date of Service: 10/10/22 Chief Complaint: Hypoxemia shortness of breath Subjective: Other (Reports no inc in SOB.) Physical Examination - Vital Signs Temperature: 98 F Blood Pressure: 124/65 Pulse: 70 Respirations: 19 Pulse Ox (%): 99 - Physical Exam General: Mild distress, Other (Appears as her stated age) HEENT: Atraumatic, Normocephalic Neck: Supple Respiratory: Other (Symmetric chest expansion) Cardiovascular: No rubs, No murmurs Gastrointestinal: Soft and benign, No guarding Musculoskeletal: No clubbing Integumentary: No warmth Neurological: Normal speech, Normal tone Urinary: Babcock catheter, Other (No bladder distention) External genitalia: Deferred Rectal: Deferred Assessment And Plan - Plan # Hypotonic, hypervolemic, chronic, symptomatic, severe hyponatremia 2/2 high ADH state from acute cardiorespiratory issues + renal dysfxn +/- low solute state Serum Na 120 on adm, improved to 132 today Dc hypertonic saline gtt Resume IV lasix 40 mg IV q6h x 5 more doses Keep serum K at 4.0 or higher Avoid hypoMg Encourage po solid food intake Advised on drinking fluid via 'obey your thirst' strategy Start Demeclocycline 150 mg po bid, plan long-term Long-term serum Na goal > 130 meq/L, to prevent imbalance/falls # OTONIEL 2/2 CRS1, on CKD 3-4 Serum Cr 3.1 on admission, at 3.5 today, improved to 3.2 today Recent SCr 2.1 as of 09/16/2022 Urinalysis +proteinuria/hematuria/pyuria random urine chem +secondary hyperaldo Renal US unremarkable CPK wnl, no rhabdo Lasix IV as above # Acute respi failure 2/2 acute on chronic diastolic HF w/ bilateral pleural effusion Recent TTE showed normal LVEF, +DD, mod mitral regurg 1+ BLE edema CXR +pulmo edema, +B/L pleural effusion Chest CT on 10/08 showed pulmo edema, mod bilat pleural effusion, no pulmo fibrosis, no pulmo htn Recommend incentive/diagnostic thoracentesis L or R if it can be arranged Incentive spirometry q2h when awake BNP sig elevated Lasix IV as above On O2 support Cont babcock # HyperMg Monitor # E coli UTI On ceftriaxone # Htn BP variable, monitor # DM2 Mngt per primary team # Hyperuricemia Monitor for now
[2022-10-10] MEDS: ASPIRIN EC 81 MG TAB PO SCH (08:45)
[2022-10-10] MEDS: DEMECLOCYCLINE HCL 150 MG TABLET PO SCH ×2 (08:45→21:17)
[2022-10-10] MEDS: AZELASTINE NASAL SPRAY 30 ML NAS SCH ×2 (08:46→21:17)
[2022-10-10] MEDS: FLUTICASONE 50MCG NASAL SPRAY NAS SCH ×2 (08:46→21:17)
[2022-10-10] MEDS: ONDANSETRON 4 MG/2 ML VIAL IV PRN ×2 (09:54→15:29)
[2022-10-10] MEDS: CEFTRIAXONE 1,000 MG in NA CHLORIDE 0.9% 50 ML IVPB SCH (09:57)
--- NOTE | 2022-10-10 12:00 | RAD REPORT ---
EXAM DESCRIPTION: CT - Thorax Wo Bhupinder - 10/09/2022 6:54 am CLINICAL HISTORY: 67 years, Female, SOB, assess for pulmo edema, pleural effusion COMPARISON: None. FINDINGS: Multiple transaxial tomograms of the chest were obtained from the lung apices through the adrenal glands, utilizing 5 mm slice thickness at 5 mm interval reconstruction without the administra tion of IV contrast. Multiplanar reformats in the sagittal and coronal plane were generated and reviewed. This exam was performed according to our departmental dose-optimization protocol, which includes auto mated exposure control, adjustment of the mA and/or kV according to patient size and/or use of iterat smiley reconstruction technique. The lungs parenchyma demonstrate small to moderate bilateral pleural effusions with compressive atele ctatic changes/or infiltrates. Otherwise the lung demonstrate to be clear. The trachea mainstem bronchus demonstrate to be normal. There is no significant pleural and/or perica rdial effusions. The thoracic aorta demonstrate minimal intimal calcification of the aortic arch and descending thorac ic aorta. The heart is not enlarged. There are coronary artery calcifications. The pulmonary vasculat ure is normal distribution. There is no significant mediastinal and/or hilar lymphadenopathy. The axillary regions demonstrate to be clear. The bone windows demonstrate no significant skeletal lesions. Visualized portions of the upper abdomen demonstrate to be unremarkable. IMPRESSION: Small to moderate bilateral pleural effusions with compressive atelectatic changes/or in filtrates. Coronary artery calcifications. Electronically signed by: Frantz Gallagher MD 10/09/2022 3:16 AM MOVIE PRODUCER Due to temporary technical issues with the PACS/Fluency reporting system, reports are being signed by the in house radiologists without review as a courtesy to insure prompt reporting. The interpreting radiologist is fully responsible for the content of the report.
[2022-10-10 12:56] LABS: Potassium 4.6 mmol/L (3.5-5.1)
[2022-10-10] MEDS: HEPARIN/D5W 25,000 UNIT/500 ML BAG IV PRN (16:42)
[2022-10-10] MEDS: ATORVASTATIN 40 MG TAB PO SCH (21:16)
--- NOTE | 2022-10-10 22:30 | PN ---
Date of Progress Note: 10/10/2022 Subjective: Patient was seen this morning for followup. She was in ICU, lying in bed, not in any di stress. Overall, she feels slightly better today than yesterday. Objective: Vital Signs: Reviewed. Intake and output records reviewed. General: Her was present with her at bedside. HEENT: Examination unremarkable. Lungs: Diminished air entry in approximately lower half of both lower lung merlos. Not using access ory muscles of respiration at rest. Heart: Sounds normal. Abdomen: Soft. Bowel sounds normal. No guarding, rigidity, tenderness, or distention. Extremities: Bilateral trace leg edema. Laboratory Data: White count 9.2, hemoglobin 8.6, platelets 310. Sodium 131, potassium 4.3, chlorid e 95, bicarb 28, BUN 62, creatinine 3.23. Glucose 219. Impression: 1.Congestive heart failure, chronic, diastolic, with acute exacerbation. 2.Hypertension. 3.Type 1 diabetes mellitus. 4.Acute kidney injury. 5.Hyponatremia. 6.Anemia, unspecified. 7.Urinary tract infection. Plan: Patient's urine culture is growing E coli and it is sensitive to ceftriaxone and we will start her on that antibiotic. Continue to follow with Skip Load Driver. Her CAT scan of the abdomen and pelv is done yesterday was unremarkable except it shows anasarca with bilateral pleural effusion and ascit es. Right hepatic lobe has about 3.4 cm hypoattenuating lesion, etiology unknown and possibility of gallstone. We will get a right upper quadrant abdominal ultrasound for further evaluation of these 2 abnormalities. Patient will continue to receive Lasix per Skip Load Driver. She is on demeclocycline. I will start her on IV ceftriaxone. She has some underlying coronary artery disease as we are franky rned about on basis of clinical picture as well as CAT scan of the abdomen and pelvis has shown some coronary artery calcification consistent with coronary artery disease. Patient is at high risk from cardiac cath type of procedure as it will push her into renal failure, requiring hemodialysis. So ca rdiologist is trying to evaluate her with noninvasive testing like stress test. Details and plan of treatment discussed with the patient and patient's . I will see her tomorrow for followup. GURJIT/MODL Voice ID: [id number] Report ID: [id number]
[2022-10-11] MEDS: FUROSEMIDE 40 MG/4 ML VIAL IV SCH ×3 (03:09→14:29)
[2022-10-11 05:25] LABS: Absolute Lymphocytes (CBC) 0.7 K/uL (0.7-4.9); Hematocrit 26.3 % (36.0-45.0); Lymphocytes % 6.3 % (15.3-44.8); MPV 9.7 fL (7.6-11.3); RBC Red Blood Cell Count 2.73 M/uL (3.86-4.86)
[2022-10-11 05:32] LABS: Magnesium 2.8 mg/dL (1.8-2.4); Phosphorus 4.4 mg/dL (2.5-4.9); Potassium 4.3 mmol/L (3.5-5.1)
[2022-10-11] MEDS: INSULIN -REGULAR HUMAN 50 UNIT/0.5 ML ML SQ SCH ×4 (07:30→21:00)
[2022-10-11] MEDS: AZELASTINE NASAL SPRAY 30 ML NAS SCH ×2 (08:34→20:41)
[2022-10-11] MEDS: FLUTICASONE 50MCG NASAL SPRAY NAS SCH ×2 (08:35→20:41)
[2022-10-11] MEDS: ASPIRIN EC 81 MG TAB PO SCH (08:36)
[2022-10-11] MEDS: DEMECLOCYCLINE HCL 150 MG TABLET PO SCH ×2 (08:36→20:43)
--- NOTE | 2022-10-11 08:42 | RAD REPORT ---
EXAM DESCRIPTION: US - Liver Only - 10/11/2022 5:18 am CLINICAL HISTORY: abdominal distention COMPARISON: Abdomen Pelvis Wo Contrast dated 10/09/2022 FINDINGS: Mildly heterogenous liver parenchymal pattern is seen. Liver size is small.Small hypoechoi c lesions seen in the liver presumably related to assess but somewhat difficult to fully assess but u ltrasound.No evidence of portal vein thrombosis. Mild ascites. Cholelithiasis. IMPRESSION: Heterogenous liver parenchymal pattern is observed. This is potentially related to under lying cirrhosis or fatty infiltration. Vague hypoechoic lesions in the liver parenchyma are nonspeci fic but may represent cysts. Cholelithiasis.
[2022-10-11] MEDS: CEFTRIAXONE 1,000 MG in NA CHLORIDE 0.9% 50 ML IVPB SCH (09:21)
--- NOTE | 2022-10-11 09:27 | RAD REPORT ---
EXAM DESCRIPTION: RAD - Chest Single View - 10/11/2022 6:00 am CLINICAL HISTORY: resassess pleural effusion's Chest pain. COMPARISON: Chest Single View dated 10/09/2022; Chest Single View dated 10/07/2022; Chest Single Vie w dated 09/16/2022; Chest Single View dated 09/15/2022; Liver Only dated 10/11/2022 FINDINGS: Portable technique limits examination quality. Right-sided PICC line has tip in the SVC. Hazy opacification in both lung bases with moderate bibasil ar pleural effusions noted. Overall, basilar lung aeration appears similar to the prior study. The he art is mildly enlarged in size.
--- NOTE | 2022-10-11 12:39 | P.PN ---
Subjective Date of Service: 10/11/22 Chief Complaint: Hypoxemia shortness of breath Subjective: Improving (Patient is improving renal function is also improving patient requesting BiPAP) Review of Systems General: Weakness Respiratory: Shortness of Breath Physical Examination - Vital Signs Temperature: 98 F Blood Pressure: 116/42 Pulse: 70 Respirations: 19 Pulse Ox (%): 99 - Physical Exam General: Alert, Oriented x3, Mild distress Respiratory: Crackles/rales (Crackles at the bases) Cardiovascular: Regular rate/rhythm, Normal S1 S2, Edema Assessment And Plan - Current Problems (Diagnosis) (1) Respiratory failure Current Visit: Yes Status: Acute Plan: And admitted with respiratory failure suspect is from diastolic dysfunction bilateral pleural effusions chest x-ray still shows bilateral pleural effusions patient is on ceftriaxone hyponatremia is also improved urine culture shows E. coli which is pansensitive continue to wean down on the oxygen and use high flow instead of BiPAP thoracentesis not indicated right now Qualifiers: Chronicity: acute on chronic
--- NOTE | 2022-10-11 12:59 | EKG ---
Test Date: 2022-10-07 Test Time: 08:33:07 Machine Records Units Supervisor: MB MEASUREMENT RESULTS: Intervals: Rate: 69 CT: 126 QRSD: 88 QT: 402 QTc: 430 [place]: P: 55 CT: 126 QRS: 68 T: -90 INTERPRETIVE STATEMENTS: Normal sinus rhythm ST & T wave abnormality, consider inferolateral ischemia Abnormal ECG Compared to ECG 09/16/2022 09:21:50 Possible ischemia now present ST (T wave) deviation still present Electronically Signed On 10-11-22 12:53:[address] by Jaxson Grover
--- NOTE | 2022-10-11 13:50 | ECHO ---
HEIGHT: 4 ft 8 in WEIGHT: 170 lb 9.6 oz DATE OF STUDY: 10/11/[address]: Jaxson Grover 2-DIMENSIONAL: YES M.MODE: YES DOPPLER: YES COLOR FLOW: YES TDS: PORTABLE: YES DEFINITY: BUBBLE STUDY: DIAGNOSIS: ELEVATED TROPONIN CARDIAC HISTORY: CATHERIZATION: NO SURGERY: NO PROSTHETIC VALVE: NO PACEMAKER: NO MEASUREMENTS (cm) DIASTOLIC (NORMALS) SYSTOLIC (NORMALS) IVSd 1.0 (0.6-1.2) LA Diam 2.7 (1.9-4.0) LVEF 55-60% LVIDd 5.3 (3.5-5.7) LVIDs 3.9 (2.0-3.5) %FS 26% LVPWd 1.0 (0.6-1.2) Ao Diam 2.3 (2.0-3.7) 2 DIMENSIONAL ASSESSMENT: RIGHT ATRIUM: NORMAL LEFT ATRIUM: ENLARGED RIGHT VENTRICLE: NORMAL LEFT VENTRICLE: NORMAL TRICUSPID VALVE: MILD TRICUSPID REGURGITATION MITRAL VALVE: MODERATE MITRAL REGURGITATION PULMONIC VALVE: NORMAL AORTIC VALVE: NORMAL PERICARDIAL EFFUSION: NONE AORTIC ROOT: NORMAL LEFT VENTRICULAR WALL MOTION: NORMAL DOPPLER/COLOR FLOW: SEE BELOW COMMENTS: [*] 1. NORMAL LEFT VENTRICULAR EJECTION FRACTION 55-60% WITH NORMAL WALL MOTION 2. MODERATE TO SEVERE MITRAL REGURGITATION 3. DIASTOLIC DYSFUNCTION 4. LEFT ATRIAL ENLARGEMENT 5. MILD TRICUSPID REGURGITATION 6. SEVERE PULMONARY HYPERTENSION WITH RIGHT VENTRICULAR SYSTOLIC PRESSURE GREATER THAN 60 mmHg TECHNOLOGIST: SUMIT BERGERON
--- NOTE | 2022-10-11 20:21 | PN ---
Date of Progress Note: 10/11/2022 Subjective: Seen by bedside. She appears to be more stable. Review of Systems: No chest pain. She has shortness of breath, orthopnea, and lower extremity edema. No nausea, vomiti ng, diarrhea. No dysuria, polyuria, or urinary urgency. All other systems reviewed are negative. Physical Examination: Vital Signs: Reviewed. Head and Neck: Pupils are equal, reactive to light. Intact eye movements. Mild JVD. No cervical l ymphadenopathy. Neck is supple. Thyroid is not enlarged. Lungs: Crackles in both bases. No accessory muscle use. Heart: Regular rate and rhythm. No extra sounds. Abdomen: Soft, nontender. Bowel sounds positive. No organomegaly. No masses or hernia. No rigidi ty or rebound. Extremities: 3+ pitting edema bilaterally. No clubbing, cyanosis. Intact pulses. Skin: No rash. Neurologic: Alert, awake, and oriented x3. No acute focal deficits appreciated. Investigations: BUN 62, creatinine 2.73. Assessment And Recommendations: 1.Elevated troponin, which could be demand versus inr-FS-[id number] myocardial infarction. Her eject ion fraction on echo was normal. No wall motion abnormalities. Recommend a Lexiscan nuclear stress test once her condition is stable and determine the need for a coronary angiogram. We will try to av oid coronary angiogram due to advanced chronic kidney disease unless the stress test is grossly abnor mal. Meanwhile, continue current medications with aspirin and diuresis. 2.Advanced kidney failure with fluid retention and acute exacerbation of heart failure on echo. Her filling blood pressures are very high. This patient will need aggressive diuretics. 3.Dyslipidemia. Continue statin. SR/MODL Voice ID: [id number] Report ID: [id number]
[2022-10-11] MEDS: ATORVASTATIN 40 MG TAB PO SCH ×2 (20:41→20:42)
[2022-10-12] MEDS: HEPARIN/D5W 25,000 UNIT/500 ML BAG IV PRN (00:08)
--- NOTE | 2022-10-12 00:17 | PN ---
Date of Progress Note: 10/11/2022 Chief Complaint: Qylca-oi-hwgizxo kidney injury. Subjective: Patient is admitted to this hospital for hypoxemic respiratory failure. Review of Systems: Unobtainable due to patient's condition. Physical Examination: Lungs: Coarse breath sounds bilaterally. Heart: S1, S2. Abdomen: Soft. Extremities: No edema. Assessment And Plan: The patient has multiple medical problems. 1.She was found to have hyponatremia. On presentation to the hospital, sodium level was 120 and gra dually improved. Over last 24 hours, sodium level improved from 131 to 135. The patient was found t o have severe hyponatremia secondary to high ADH state from acute cardiorespiratory condition with un derlying renal dysfunction and low solutes. Serum sodium level on admission was 120 and it has gradu ally improved. The patient primarily was started on hypertonic saline drip. Patient was resumed on Lasix 40 mg IV every 6 hours. Patient will continue potassium and magnesium replacement. The patien t was advised to avoid excessive p.o. fluid intake. The patient was started on demeclocycline 150 mg twice a day. Continue to monitor electrolytes and advised about p.o. fluid intake according to sodi um level. 2.Acute kidney injury secondary to cardiorenal syndrome on advanced chronic kidney disease stage 3. Serum creatinine is somewhat improved over last 24 hours. Urinalysis showed proteinuria, hematuria, and pyuria. Patient had renal ultrasound, which did not show hydronephrosis. CPK was within normal limits and rhabdomyolysis was ruled out. 3.Acute respiratory failure secondary to gxyfc-vr-cddgeuo diastolic congestive heart failure associa merlene with bilateral pleural effusion and edema fluid overload. CT scan of the chest showed pulmonary edema, moderate bilateral pleural effusion, and now fibrosis and pulmonary hypertension. Patient may need diagnostic paracenteses to rule out empyema. The patient will continue IV Lasix for volume ove rload. 4.Urinary tract infection with Escherichia coli, continue ceftriaxone and monitor urine culture. 5.Diabetes mellitus. Avoid metformin. Continue to adjust medication. EB/MODL Voice ID: [id number] Report ID: [id number]
[2022-10-12 06:17] LABS: Magnesium 2.5 mg/dL (1.8-2.4); Potassium 3.9 mmol/L (3.5-5.1)
--- NOTE | 2022-10-12 06:21 | PN ---
Date of Progress Note: 10/11/2022 Subjective: Patient was seen this morning for followup. She was in ICU, lying in bed, not in any di stress. Overall feels a little better today, compared to yesterday. Intake, output records reviewed . Objective: Vital Signs: Reviewed. HEENT: Unremarkable. Lungs: Bilateral equal air entry with diminished air entry in the lower lung merlos. Not using acce ssory muscles of respiration at rest. Heart: Sounds normal. Abdomen: Soft. Bowel sounds normal. No guarding, rigidity, tenderness, distention. Extremities: Trace leg edema. Laboratory Data: White count 11.1, hemoglobin 8.6, platelets 299. Sodium 135, potassium 4.3, chlori de 99, bicarb 30, BUN 62, creatinine 2.73, which is slightly better today than yesterday. Glucose 16 2. Impression: 1.Congestive heart failure, chronic, diastolic, with acute exacerbation. 2.Coronary artery disease. 3.Acute kidney injury. 4.Hypertension. 5.Type 1 diabetes mellitus. 6.Anemia, unspecified. 7.Generalized weakness. 8.Debility. Plan: We will go ahead and continue current antibiotic for urinary tract infection. Continue to mon itor intake, output, electrolyte, renal function. Continue to follow up with sand molder. Patient is getting IV Lasix per sand molder. The patient is also on heparin and I will see her tomorrow for yue alicia. GURJIT/MODL Voice ID: [id number] Report ID: [id number]
[2022-10-12] MEDS: INSULIN -REGULAR HUMAN 50 UNIT/0.5 ML ML SQ SCH ×4 (07:30→21:00)
[2022-10-12] MEDS: CEFTRIAXONE 1,000 MG in NA CHLORIDE 0.9% 50 ML IVPB SCH (08:39)
[2022-10-12] MEDS: ASPIRIN EC 81 MG TAB PO SCH (08:40)
[2022-10-12] MEDS: FLUTICASONE 50MCG NASAL SPRAY NAS SCH ×2 (08:41→20:59)
[2022-10-12] MEDS: AZELASTINE NASAL SPRAY 30 ML NAS SCH ×2 (08:41→20:58)
[2022-10-12] MEDS: DEMECLOCYCLINE HCL 150 MG TABLET PO SCH ×2 (08:41→20:59)
--- NOTE | 2022-10-12 11:55 | P.PN ---
Subjective Date of Service: 10/12/22 Chief Complaint: Respiratory failure requiring BiPAP Subjective: Improving (Patient is feeling better not tolerate high flow) Review of Systems General: Weakness Respiratory: Shortness of Breath Physical Examination - Vital Signs Temperature: 97.7 F Blood Pressure: 116/52 Pulse: 74 Respirations: 17 Pulse Ox (%): 93 - Physical Exam General: Alert, In no apparent distress, Mild distress Respiratory: Diminished (Bilateral) Cardiovascular: Regular rate/rhythm, Normal S1 S2, Edema Assessment And Plan - Current Problems (Diagnosis) (1) Respiratory failure Current Visit: Yes Status: Acute Plan: Patient admitted with respiratory failure renal function is steadily improving patient tolerates a bubbler instead of a high flow requests BiPAP White count is mildly elevated troponins are still elevated patient is on Rocephin hyponatremia corrected Qualifiers: Chronicity: acute on chronic
[2022-10-12] MEDS: FUROSEMIDE 40 MG/4 ML VIAL IV SCH ×2 (14:13→20:59)
--- NOTE | 2022-10-12 18:42 | PN ---
Date of Progress Note: 10/12/2022 Subjective: The patient was admitted with acute kidney injury, anasarca. Her acute kidney injury was to cardiorenal syndrome. The patient was started on diuresis. The patient responded very well. Kidney function started being improving. Physical Examination: Vital Signs: Blood pressure 115/58, pulse of 81, afebrile. Chest: Crackles bilateral. Heart: S1, S2. Systolic murmur. Abdomen: Soft, nontender. Extremities: +2 edema. Neurologic: Alert, no focality. Lab Data: Sodium 136, potassium 3.9, bicarb 32, BUN 63, creatinine 2.3. Continue to improve. Calcium 8.8, phosphorus 4.4, magnesium 2.2, albumin 2.7, corrected calcium 9.6. Urinalysis: wbc's more than 50, +2 protein. PTH 176. Renal ultrasound normal size kidney 08/24, increased echogenicity. Current Medications: The patient on ceftriaxone, demeclocycline, Lasix 40 mg every 6 hours, atorvastatin, Zofran, fentanyl. Assessment And Plan: 1. Acute kidney injury secondary to cardiorenal syndrome. I am going to continue the patient on the diuresis. The patient being nonoliguric responding very well with negative balance, but still significant over volume. I am going to continue current diuresis dose. If possible we will need to switch her to Lasix drip to achieve better fluid status on the patient. 2. Hyponatremia dilutional. Sodium has been trending up nicely. We will continue demeclocycline. No need for any salt tablet. No need for any tolvaptan for the time being. 3. Anasarca secondary to cardiorenal. I am going to go ahead and send for protein creatinine and we will send for TSH. Continue diuresis. We will try to optimize fluid status. 4. Secondary hyperparathyroidism. No need for any calcitriol. I am going to send for vitamin D. 5. Congestive heart failure with exacerbation. We will try to establish better volume control on the patient. Time spent examining the patient [id number], reviewing data, lab and radiology, discussing the case with the patient, discussing the case with steam and gas turbines assembler including nursing and hospitalist more than 35 minutes KENDY Voice ID: [id number] Report ID: [id number] MTDRaymond
[2022-10-13] MEDS: FUROSEMIDE 40 MG/4 ML VIAL IV SCH ×4 (01:52→20:27)
[2022-10-13 05:24] LABS: Hematocrit 25.1 % (36.0-45.0); Lymphocytes % 11.3 % (15.3-44.8); MCV 96.5 fL (80-100); MPV 9.4 fL (7.6-11.3)
[2022-10-13 05:44] LABS: Albumin 2.2 g/dL (3.4-5.0); Magnesium 2.3 mg/dL (1.8-2.4); Phosphorus 4.5 mg/dL (2.5-4.9); Potassium 4.2 mmol/L (3.5-5.1); Thyroid Stimulating Hormone 2.02 uIU/mL (0.360-3.740)
[2022-10-13] MEDS: INSULIN -REGULAR HUMAN 50 UNIT/0.5 ML ML SQ SCH ×4 (07:30→20:52)
[2022-10-13] MEDS: DEMECLOCYCLINE HCL 150 MG TABLET PO SCH ×2 (07:49→20:28)
[2022-10-13] MEDS: CEFTRIAXONE 1,000 MG in NA CHLORIDE 0.9% 50 ML IVPB SCH (07:49)
[2022-10-13] MEDS: ASPIRIN EC 81 MG TAB PO SCH (07:49)
[2022-10-13] MEDS: AZELASTINE NASAL SPRAY 30 ML NAS SCH ×2 (07:50→20:26)
[2022-10-13] MEDS: FLUTICASONE 50MCG NASAL SPRAY NAS SCH ×2 (07:51→20:26)
[2022-10-13] MEDS ORDERED: ACETAMINOPHEN 500 MG TAB PO PRN (08:17)
[2022-10-13] MEDS ORDERED: HEPARIN 5000 UNIT/ML 1 ML VIAL IV SCH (09:00)
--- NOTE | 2022-10-13 10:33 | PN ---
Date of Progress Note: 10/12/2022 Subjective: The patient was seen this morning for followup. She was lying in bed in ICU. Denies an y new complaints. No nausea, vomiting, abdominal pain. Remains on oxygen replacement per nasal [place]ia adarsh. Intake, output records reviewed. Vital signs reviewed. Physical Examination: HEENT: Unremarkable. Lungs: Bilateral good equal air entry and air entry in the lower lung merlos better compared to befo re. Diminished air entry in the lung bases, but overall it is better than before. Heart: Sounds normal. Abdomen: Soft. Bowel sounds normal. No guarding, rigidity, tenderness, distention. Extremities: Trace leg edema. Laboratory Data: Sodium 136, potassium 3.9, chloride 99, bicarb 32, BUN 63, creatinine 2.37, glucose 138. Impression: 1.Congestive heart failure, chronic, diastolic, with acute exacerbation. 2.Coronary artery disease. 3.Acute kidney injury. 4.Type 1 diabetes mellitus. 5.Anemia. 6.Generalized weakness. 7.Debility. Plan: We will go ahead and continue to follow with workforce management coordinator and quality control operator. The patient remai ns on ceftriaxone for urinary tract infection and she remains on heparin. Drier Take Off Tender is managing t he patient's diuretic therapy. Renal function has improved compared to a few days ago. I will see her tomorrow for followup. GURJIT/MODL Voice ID: [id number] Report ID: [id number]
--- NOTE | 2022-10-13 13:36 | RAD REPORT ---
EXAM DESCRIPTION: RAD - Chest Single View - 10/13/2022 1:19 pm CLINICAL HISTORY: COPD COMPARISON: <Comparisons> FINDINGS: Lines: PICC with tip overlying the SVC. Lungs: Bilateral interstitial and airspace disease. Pleural: Small effusions. Cardiac: Cardiomegaly. Mediastinum: Within normal limits. Bones: No acute fractures. Other: None IMPRESSION: Bilateral interstitial and airspace disease that may represent either edema or multifoca l pneumonia.
--- NOTE | 2022-10-13 16:39 | PN ---
Date of Progress Note: 10/13/2022 Subjective: The patient was admitted to the hospital with acute kidney injury, anasarca. Her acute kidney injury is secondary to cardiorenal. The patient was started on diuresis. Yesterday, we resumed diuresis as every 6 hours. The patient had more significant urine output yesterday. The patient down today, has been taking of BiPAP, started eating. Physical Examination: Vital Signs: Blood pressure 115/41, pulse of 71, afebrile. The patient had good urine output of 1700, negative of 500. Today morning has already 1400 in the last 7 hours. Chest: Faint crackles bilateral. Heart: S1, S2. Systolic murmur. Abdomen: Soft, nontender. Extremity: +1 edema. Neurological: Alert, oriented x3. No focal. Laboratory Data: WBC 8.8, H and H 8.4/25.1. Sodium 136, potassium 4.2, bicarb 29, BUN 61, creatinine down to 2.1, GFR of 25, calcium 8.5, phosphorus 4.5, magnesium 2.3, albumin 2.2. Corrected calcium is 10.1. Current Medications: The patient on include ceftriaxone, demeclocycline, breathing treatment, atorvastatin, Lasix 40 every 6 hours, Zofran, fentanyl. Assessment And Plan: 1. Acute kidney injury secondary to cardiorenal. The patient still looked to me on the over volume side. Started responding better on current dose of Lasix. Blood pressure still maintained okay. I am going to go ahead and continue Lasix every 6 hours for the time being and we will follow up response. 2. Dilutional hyponatremia secondary to congestive heart failure. Continue diuresis. 3. Anasarca secondary to cardiorenal. Hypothyroidism has been ruled out. Still pending PC ratio. I am going to continue current diuresis dose. 4. Congestive heart failure with exacerbation as above. We will follow up with Cardiology. Time spent examining the patient [id number], reviewing data, lab and radiology, discussing the case with the patient, discussing the case with steamer blocker including nursing and hospitalist more than 35 minutes KENDY Voice ID: [id number] Report ID: [id number] ADITHYA
[2022-10-13] MEDS: HEPARIN/D5W 25,000 UNIT/500 ML BAG IV PRN (19:06)
[2022-10-13 20:05] LABS: UR PROTEIN 36.7 mg/dL (<11.9); Urine Protein/Creatinine Ratio 1.05 ratio (<0.15)
[2022-10-13] MEDS: ATORVASTATIN 40 MG TAB PO SCH (20:28)
[2022-10-13] MEDS ORDERED: HOME MED 1 EA UNK (Dorzolamide Hcl/Timolol Maleat [Dorzolamide-Timolol Eye Drops] 10 ML Dr OPTH SCH (21:00)
[2022-10-13] MEDS ORDERED: TRAVOPROST 0.004% 2.5ML OPTH OPTH SCH (21:00)
--- NOTE | 2022-10-13 22:00 | PN ---
Date of Progress Note: 10/13/2022 Subjective: Patient was seen this morning for followup. She was in ICU on BiPAP, feeling a lot bett er and actually she looks a lot better. This is the best that I have seen her for this hospital admi ssion. Her voice appears lot more stronger. She appears lot more awake, alert; not tired-looking at all. Objective: Vital Signs: Reviewed. Intake and output records reviewed. HEENT: Unremarkable. Lungs: Clear to auscultation. Diminished air entry in the lung bases. Overall, lung findings are b mathew than before. Heart: Sounds normal. Abdomen: Soft. Bowel sounds normal. No guarding, rigidity, tenderness, distention. Extremities: Trace leg edema. Laboratory Data: White count 8.8, hemoglobin 8.4, platelets 290. Sodium 136, potassium 4.2, chlorid e 102, bicarb 29, BUN 61, creatinine 2.16, glucose 191. Impression: 1.Congestive heart failure, chronic, diastolic, with acute exacerbation. 2.Acute kidney injury. 3.Acute respiratory failure with hypoxia. 4.Type 1 diabetes mellitus. 5.Anemia. Plan: We will go ahead and continue to followup with agricultural engineering technician. The patient is on IV Lasix per n ephrologist. The patient is also on IV heparin per sheet heater orders. She probably does have unde rlying coronary artery disease on basis of the clinical picture that we are dealing with right now. We will continue to monitor her renal function and electrolytes. Continue current antibiotic for uri nary tract infection. The patient is medically stable for transfer out of ICU to regular medical floor and see copy of transfer order for more details. I will see her tomorro w for followup. GURJIT/MODL Voice ID: [id number] Report ID: [id number]
[2022-10-14] MEDS: FUROSEMIDE 40 MG/4 ML VIAL IV SCH ×4 (03:53→20:55)
[2022-10-14 05:14] LABS: Albumin 2.1 g/dL (3.4-5.0); Phosphorus 4.2 mg/dL (2.5-4.9); Potassium 3.9 mmol/L (3.5-5.1)
[2022-10-14 07:07] VITALS: BMI 35.4
[2022-10-14] MEDS: INSULIN -REGULAR HUMAN 50 UNIT/0.5 ML ML SQ SCH ×4 (07:30→21:00)
[2022-10-14] MEDS: CEFTRIAXONE 1,000 MG in NA CHLORIDE 0.9% 50 ML IVPB SCH (08:09)
[2022-10-14] MEDS: ASPIRIN EC 81 MG TAB PO SCH (08:10)
[2022-10-14] MEDS: DEMECLOCYCLINE HCL 150 MG TABLET PO SCH (08:10)
[2022-10-14] MEDS: AZELASTINE NASAL SPRAY 30 ML NAS SCH ×2 (08:10→20:56)
[2022-10-14] MEDS: FLUTICASONE 50MCG NASAL SPRAY NAS SCH ×2 (08:11→20:56)
[2022-10-14] MEDS: LACTOSE-REDUCED FOOD 330 ML LIQUID PO SCH (09:00)
[2022-10-14] MEDS: HEPARIN 5000 UNIT/ML 1 ML VIAL SQ SCH ×2 (09:00→16:41)
[2022-10-14] MEDS: HOME MED 1 EA UNK (Dorzolamide Hcl/Timolol Maleat [Dorzolamide-Timolol Eye Drops] 10 ML Dr OPTH SCH ×2 (09:14→17:58)
--- NOTE | 2022-10-14 12:23 | P.PN ---
Subjective Date of Service: 10/14/22 Chief Complaint: Respiratory failure requiring BiPAP Subjective: Improving (Patient is improving doing better renal function is improving swelling decreased) Review of Systems General: Weakness Respiratory: Shortness of Breath Physical Examination - Vital Signs Temperature: 98.1 F Blood Pressure: 127/48 Pulse: 74 Respirations: 25 Pulse Ox (%): 97 - Physical Exam General: Alert, In no apparent distress, Oriented x3 Neck: Supple Respiratory: Clear to auscultation bilaterally, Diminished Assessment And Plan - Current Problems (Diagnosis) (1) Respiratory failure Current Visit: Yes Status: Acute Plan: Patient's condition is steadily improved renal function improving negative fluid balance oxygenation satisfactory she feels better on BiPAP at night night we will try her off the BiPAP to observe for desaturation patient is on high dose of Lasix can DC Rocephin as she has been on 7 days of IV antibiotics for UTI Qualifiers: Chronicity: acute on chronic
[2022-10-14] MEDS ORDERED: FUROSEMIDE 40 MG/4 ML VIAL IV ONE (14:00)
[2022-10-14] MEDS ORDERED: FUROSEMIDE 40 MG/4 ML VIAL IV SCH (15:00)
--- NOTE | 2022-10-14 17:43 | PN ---
Date of Progress Note: 10/14/2022 Subjective: The patient was admitted with acute kidney injury secondary to cardiorenal, over volume. The patient was being diuresed aggressively. The patient had good urine output. Kidney function started being improving. Physical Examination: Vital Signs: When I saw the patient; blood pressure 132/50, pulse of 75, afebrile. The patient had good urine output of 2400, negative of 1700. Chest: Crackles bilateral base. Heart: S1, S2. Systolic murmur. Abdomen: Soft, nontender. Extremities: +2 edema. Neurologic: Alert. No focality. Laboratory Data: Hemoglobin 8.5, WBC 8.8. Sodium 139, potassium 3.9, bicarb 35, BUN 61, creatinine down to 1.9, GFR 28, calcium 8.7, phosphorus 4.2. Current Medications: The patient on include; 1. Aspirin. 2. Ceftriaxone. 3. Demeclocycline. 4. Heparin. 5. Atorvastatin. 6. Lasix 40 every 6. 7. Lactulose. 8. Flucytosine. 9. Zofran. 10. Insulin. 11. Fentanyl. Laboratory Data: Chest x-ray; cardiomegaly with congestion bilateral. No significant improvement. Assessment And Plan: 1. Acute kidney injury secondary to cardiorenal. The patient still looked to me on the over volume side. I am going to go ahead and increase Lasix to 60 mg and every 6 hours, we will give this next dose 80 mg and I am going to add metolazone to synergize diuresis for the patient. I am going to go ahead and discontinue demeclocycline and we will follow up. 2. Hypertension. We will continue to utilize blood pressure for more diuresis. 3. Hyponatremia, dilutional, improving, recovered, resolved. Discontinue demeclocycline. 4. Congestive heart failure with exacerbation as above. 5. Respiratory failure, multifactorial secondary to congestive heart failure exacerbation/pneumonia/pulmonary hypertension. We are going to try to continue optimizing fluid status for the patient. We added metolazone. I am going to add Aldactone. We will consider adding calcium channel bernadette also, and we will follow up the patient closely. Time spent examining the patient [id number], reviewing data, lab and radiology, discussing the case with the patient, discussing the case with steamfitter supervisor including nursing and hospitalist more than 35 minutes KENDY Voice ID: [id number] Report ID: [id number] ADITHYA
[2022-10-14] MEDS: ATORVASTATIN 40 MG TAB PO SCH (20:56)
[2022-10-14] MEDS: TRAVOPROST OPTH SCH (20:56)
[2022-10-15] MEDS: FUROSEMIDE 40 MG/4 ML VIAL IV SCH ×4 (01:45→21:09)
[2022-10-15] MEDS: HEPARIN 5000 UNIT/ML 1 ML VIAL SQ SCH ×3 (01:45→17:00)
[2022-10-15 05:03] LABS: Absolute Lymphocytes (CBC) 1.6 K/uL (0.7-4.9); Hematocrit 26.5 % (36.0-45.0); Lymphocytes % 21.9 % (15.3-44.8); MCV 95.7 fL (80-100); MPV 9.1 fL (7.6-11.3); RBC Red Blood Cell Count 2.77 M/uL (3.86-4.86)
[2022-10-15 05:19] LABS: Albumin 2.3 g/dL (3.4-5.0); Phosphorus 4.2 mg/dL (2.5-4.9); Potassium 3.5 mmol/L (3.5-5.1)
--- NOTE | 2022-10-15 06:06 | PN ---
Date of Progress Note: 10/14/2022 Subjective: The patient was seen this morning for followup. No new complaints or problems reported by patient. She was lying in bed, not in distress in ICU, waiting for her medical floor bed to be av ailable in order for her to get transferred. Feeling much better on nasal cannula oxygen. Objective: Vital Signs: Reviewed. HEENT: Examination unremarkable. Lungs: Bilateral good equal air entry. Clear to auscultation, except diminished air entry with some rales in the lower lung merlos. Not using accessory muscles of respiration. Cardiac: Heart sounds normal. Abdomen: Soft, bowel sounds normal. No guarding, rigidity, tenderness, distention. Extremities: On exam, trace leg edema. Laboratory Data: Sodium 139, potassium 3.9, chloride 98, bicarb 35, BUN 61, creatinine 1.94, glucose 207. Impression: 1.Acute kidney injury. 2.Chronic kidney disease, stage 3A. 3.Diastolic heart failure, chronic, with acute exacerbation. 4.Insulin-dependent diabetes mellitus. 5.Hypertension. 6.Coronary artery disease. 7.Urinary tract infection. Plan: We will go ahead and continue current antibiotic and continue current Lasix. The patient is o n IV heparin drip, and I have lost nurse to communicate with metal hanging supervisor to see whether he wants to still continue IV heparin drip or discontinue that and start her on Lovenox 40 mg subcutaneous inject ion daily. We will continue to follow with body recall instructor and metal hanging supervisor. I will see her tomorrow f or followup. We will repeat blood work tomorrow morning, and the patient will be transferred to the medical floor as soon as a bed becomes available. GURJIT/MODL Voice ID: [id number] Report ID: [id number]
[2022-10-15] MEDS ORDERED: HYDROCODONE/APAP 5/325 MG TAB PO PRN (06:52)
[2022-10-15] MEDS: INSULIN -REGULAR HUMAN 50 UNIT/0.5 ML ML SQ SCH ×4 (07:30→21:00)
[2022-10-15] MEDS: LACTOSE-REDUCED FOOD 330 ML LIQUID PO SCH (08:55)
[2022-10-15] MEDS: HOME MED 1 EA UNK (Dorzolamide Hcl/Timolol Maleat [Dorzolamide-Timolol Eye Drops] 10 ML Dr OPTH SCH ×2 (09:00→21:11)
[2022-10-15] MEDS: CEFTRIAXONE 1,000 MG in NA CHLORIDE 0.9% 50 ML IVPB SCH (09:09)
[2022-10-15] MEDS: ASPIRIN EC 81 MG TAB PO SCH (09:09)
[2022-10-15] MEDS: SPIRONOLACTONE 25 MG TABLET PO SCH (09:09)
[2022-10-15] MEDS: METOLAZONE 2.5 MG TABLET PO SCH (09:09)
[2022-10-15] MEDS: AZELASTINE NASAL SPRAY 30 ML NAS SCH ×2 (09:11→21:10)
[2022-10-15] MEDS: FLUTICASONE 50MCG NASAL SPRAY NAS SCH ×2 (09:11→21:10)
--- NOTE | 2022-10-15 14:00 | P.PN ---
Subjective Date of Service: 10/15/22 Chief Complaint: Respiratory failure requiring BiPAP Physical Examination - Vital Signs Temperature: 98.2 F Blood Pressure: 127/59 Pulse: 76 Respirations: 16 Pulse Ox (%): 97 Assessment And Plan - Plan # Hypotonic, hypervolemic, chronic, symptomatic, severe hyponatremia 2/2 high ADH state from acute cardiorespiratory issues + renal dysfxn +/- low solute state Serum Na 120 on adm, improved to 139 [place] po fluid intake Encourage po solid food intake Long-term serum Na goal > 130 meq/L, to prevent imbalance/falls # OTONIEL 2/2 CRS1, on CKD 3b Serum Cr 3.1 on admission, improved to 1.7 today Recent SCr 2.1 as of 09/16/2022 Urinalysis +proteinuria/hematuria/pyuria random urine chem +secondary hyperaldo Renal US unremarkable CPK wnl, no rhabdo Lasix IV as above # Acute respi failure 2/2 acute on chronic diastolic HF w/ bilateral pleural effusion Recent TTE showed normal LVEF, +DD, mod mitral regurg Cont diuretics. Switch lasix to 80 mg po bid starting tomorrow. Incentive spirometry q2h when awake # HyperMg Improved, monitor # E coli UTI Received abx # Htn BP variable, monitor # DM2 Mngt per primary team # Hyperuricemia Monitor for now
--- NOTE | 2022-10-15 20:27 | PN ---
Date of Progress Note: 10/15/2022 Subjective: Patient was seen this morning for followup. She was lying in bed on medical floor on nasal cannula oxygen at 7 L/minute. Overall, feels a lot better and started asking me when she can go home. Objective: Vital Signs: Reviewed. HEENT: Unremarkable. Lungs: Bilateral good equal air entry. Clear to auscultation except lower 1/3 to lower 1/4 of both lungs with diminished air entry and some rales. Overall lung findings are better than before. Not using any accessory muscles of respiration. Heart: Sounds normal. Abdomen: Soft. Bowel sounds normal. No guarding, rigidity, tenderness, distention. Extremities: Trace leg edema. Laboratory Data: White count 7.4, hemoglobin 9.1, platelets 261. Sodium 139, potassium 3.5, chloride 97, bicarb 36, BUN 61, creatinine 1.74. Impression: 1. Acute kidney injury. 2. Anemia. 3. Hypertension. 4. Type 1 diabetes mellitus. 5. Coronary artery disease. 6. Urinary tract infection. Plan: We will continue current antibiotic. Continue to follow up with jewel hole finish opener and lumber bearer. She is on heparin 5000 unit 3 times a day for DVT prophylaxis now. We will continue to follow with jewel hole finish opener who is managing her diuretic therapy. Currently she is on Lasix IV 40 mg every 6 hours as well as oral metolazone. I will see her tomorrow for followup. The patient was made aware that we might discharge her over next 2 to 3 days, but it will not be possible today and she understands that. I will see her tomorrow morning for followup. We will repeat blood work in the morning. GURJIT/MODL Voice ID: [id number] Report ID: [id number] ADITHYA
[2022-10-15] MEDS: ATORVASTATIN 40 MG TAB PO SCH (21:08)
[2022-10-15] MEDS: TRAVOPROST OPTH SCH (21:11)
[2022-10-16] MEDS: HEPARIN 5000 UNIT/ML 1 ML VIAL SQ SCH ×2 (01:40→08:41)
[2022-10-16] MEDS: FUROSEMIDE 40 MG/4 ML VIAL IV SCH (01:44)
[2022-10-16 05:08] LABS: Albumin 2.6 g/dL (3.4-5.0); Phosphorus 5.1 mg/dL (2.5-4.9); Potassium 3.4 mmol/L (3.5-5.1)
[2022-10-16] MEDS ORDERED: FUROSEMIDE 40 MG TABLET PO SCH (06:00)
[2022-10-16] MEDS: INSULIN -REGULAR HUMAN 50 UNIT/0.5 ML ML SQ SCH ×2 (07:30→11:30)
[2022-10-16] MEDS: CEFTRIAXONE 1,000 MG in NA CHLORIDE 0.9% 50 ML IVPB SCH (08:41)
[2022-10-16] MEDS: SPIRONOLACTONE 25 MG TABLET PO SCH (08:42)
[2022-10-16] MEDS: METOLAZONE 2.5 MG TABLET PO SCH (08:42)
[2022-10-16] MEDS: ASPIRIN EC 81 MG TAB PO SCH (08:42)
[2022-10-16] MEDS: AZELASTINE NASAL SPRAY 30 ML NAS SCH (08:43)
[2022-10-16] MEDS: LACTOSE-REDUCED FOOD 330 ML LIQUID PO SCH (08:44)
[2022-10-16] MEDS: FLUTICASONE 50MCG NASAL SPRAY NAS SCH (08:44)
[2022-10-16] MEDS: HOME MED 1 EA UNK (Dorzolamide Hcl/Timolol Maleat [Dorzolamide-Timolol Eye Drops] 10 ML Dr OPTH SCH (08:45)
[2022-10-16 08:53] VITALS: BP 116/57
[2022-10-16 09:15] VITALS: TEMP 97.7
--- NOTE | 2022-10-16 12:49 | P.PN ---
Subjective Date of Service: 10/16/22 Chief Complaint: Respiratory failure requiring BiPAP Subjective no overnight events cr stable cleared for discharge from nehrology point of view Physical exam General: AAOx3, NAD, HEENT PERRLA, moist mucose membrane neck: supple, no elevated JVD CHEST; mild basal rales HEART : RRR. Normal S1,2 no murmur or rub Abd: soft, Nt Ext: no edema Skin : No rash # Hypotonic, hypervolemic, chronic, symptomatic, severe hyponatremia 2/2 high ADH state from acute cardiorespiratory issues + renal dysfxn +/- low solute state Serum Na 120 on adm, improved to 139 [place] po fluid intake Encourage po solid food intake Long-term serum Na goal > 130 meq/L, to prevent imbalance/falls # OTONIEL 2/2 CRS1, on CKD 3b Serum Cr 3.1 on admission, improved to 1.7 Recent SCr 2.1 as of 09/16/2022 Urinalysis +proteinuria/hematuria/pyuria random urine chem +secondary hyperaldo Renal US unremarkable CPK wnl, no rhabdo Lasix IV as above # Acute respi failure 2/2 acute on chronic diastolic HF w/ bilateral pleural effusion Recent TTE showed normal LVEF, +DD, mod mitral regurg Cont diuretics. Switch lasix to 80 mg po bid starting tomorrow. Incentive spirometry q2h when awake # HyperMg Improved, monitor # E coli UTI Received abx # Htn BP variable, monitor # DM2 Mngt per primary team # Hyperuricemia Monitor for now Total time spent 45 minutes including documentation, reviewing labs , placing orders and discussing with medical team Cleared for discharge from Nephrology point of view Physical Examination - Vital Signs Temperature: 97.7 F Blood Pressure: 116/57 Pulse: 76 Respirations: 18 Pulse Ox (%): 96
[2022-10-16 14:18] LABS: Vitamin D 1,25-Dihydroxy Total 29 pg/mL (18-72); Vitamin D,1,25-OH2, D2 <8 pg/mL
[2022-10-16 16:26] VITALS: O2SAT 99
--- NOTE | 2022-10-16 17:45 | DS ---
Date of Discharge: 10/16/2022 Disposition: Discharged to go home. Physical Examination: HEENT: Unremarkable. Lungs: Clear to auscultation. No wheezing. No rales. Not in any respiratory distress. Heart: Sounds normal. Abdomen: Soft. Bowel sounds normal. No guarding, rigidity, tenderness, distention. Extremities: No leg edema. Discharge Medications And Instructions: 1.The patient was given instruction to use her oxygen that she has at home 2 L/minute nasal cannula all the time and to eat low-salt diet as advised by regional hr manager and to continue to eat her diabetic diet. 2.Take medications as below: a.Atorvastatin 40 mg, 1 tablet daily at bedtime. b.Aspirin 81 mg, take 1 tablet by mouth daily with food. c.Caltrate plus D, take 1 tablet by mouth 2 times a day. d.Furosemide 40 mg, take 2 tablets by mouth 2 times a day. e.Metolazone 2.5 mg, take 1 tablet by mouth daily. f.Continue insulin pump and eyedrops as prescribed by a specialist. g.Fluticasone nasal spray 1 spray each nostril 2 times a day as needed for nasal congestion. h.Azelastine nasal spray 1 spray each nostril 2 times a day as needed for nasal congestion. i.Zofran 4 mg take 1 tablet by mouth 4 times a day as needed for nausea. j.Spironolactone 25 mg take 1 tablet by mouth daily. k.Cipro 250 mg take 1 tablet by mouth 2 times a day for 5 days. 3.Stop following medications: a.Amlodipine. b.Carvedilol. c.Sodium bicarbonate. 4.Follow up at my office next week on Tuesday or Tuesday and patient will call for appointment. 5.Follow up with Dr. Sierra in [address] Momin in 2 weeks. Laboratory Data: Last CBC yesterday; white count 7.4, hemoglobin 9.1, platelets 261 and when she was admitted to the hospital; white count 9.4, hemoglobin 9.8, platelets 378. Urine culture grew E coli and it is sensitive to Cipro and ceftriaxone. Her initial creatinine was 3.1. The highest creatini ne during this hospitalization was 3.4 and yesterday creatinine was 1.7. Today, it is 1.8. Her init ial sodium level was low, but now her sodium level has been normal during this hospitalization. Hospital Course: This is a 67-year-old very pleasant female patient admitted to the hospital with co mplaints of shortness of breath and nausea. Please see dictated H and P for more information. The p atient also had some associated headache. She was admitted to intensive care unit for further evalua tion and management of this problem. Nephrology and Cardiology consultation were obtained. Oxygen r eplacement therapy was used for her respiratory failure with hypoxia problem. The patient's hyponatr emia was thought to be due to underlying congestive heart failure. She was given very aggressive IV diuretic therapy. Intake/output records were monitored and overall her condition started to improve. Once she was stable, then she was transferred out of ICU to regular room. She does have urinary tr act infection and she was given ceftriaxone. Outsole Compressor will perform stress test on outpatient bas is for further evaluation of coronary artery disease and depending on stress test results, they will determine further plan of treatment, but goal is to try to avoid cardiac catheterization if possible because of her renal dysfunction problem and concerns about iodine dye causing worsening of the renal failure requiring hemodialysis. All these details were discussed with her. Overall, her condition has improved so well that last couple of days she has felt very well and today she denies any complai nts at all. No nausea. No headache and patient will be discharged to go home in stable condition. Final Diagnoses: 1.Chronic diastolic heart failure with acute exacerbation. 2.Hyponatremia. 3.Chronic kidney disease stage 3B. 4.Acute kidney injury. 5.Coronary artery disease. 6.Anemia due to chronic kidney disease. 7.Hypertension. 8.Diabetes mellitus with diabetic retinopathy. 9.Diabetes mellitus with diabetic chronic kidney disease. 10.Hyperlipidemia. 11.Peripheral vascular disease. 12.Urinary tract infection. GURJIT/MODL Voice ID: [id number] Report ID: [id number]
== END 2022-10-16 12:52 | disposition home or self-care (01) | DRG 291 ==
LOC: ER 08:15 → ERHOLD 10:03 → 3RD-ICU 10-09 13:14 → 4TH 10-14 21:52
PROVIDERS: ADMIT Internal Medicine; ATTEND Internal Medicine
PROC: 5A09557 Assistance with Respiratory Ventilation, Greater than 96 Consecutive Hours, Continuous Positive Airway Pressure (ICD-10-PCS; principal; 2022-10-08)
PROC: 02H633Z Insertion of Infusion Device into Right Atrium, Percutaneous Approach (ICD-10-PCS; 2022-10-09)
DX: I13.0 Hypertensive heart and chronic kidney disease with heart failure and stage 1 through stage 4 chronic kidney disease, or unspecified chronic kidney disease (principal); I50.33 Acute on chronic diastolic (congestive) heart failure; J96.21 Acute and chronic respiratory failure with hypoxia; E87.1 Hypo-osmolality and hyponatremia; N17.9 Acute kidney failure, unspecified; N39.0 Urinary tract infection, site not specified; N18.32 Chronic kidney disease, stage 3b; E11.22 Type 2 diabetes mellitus with diabetic chronic kidney disease; E11.51 Type 2 diabetes mellitus with diabetic peripheral angiopathy without gangrene; E11.319 Type 2 diabetes mellitus with unspecified diabetic retinopathy without macular edema; E26.1 Secondary hyperaldosteronism; E78.5 Hyperlipidemia, unspecified; I27.20 Pulmonary hypertension, unspecified; I25.10 Atherosclerotic heart disease of native coronary artery without angina pectoris; B96.20 Unspecified Escherichia coli [E. coli] as the cause of diseases classified elsewhere; R31.9 Hematuria, unspecified; R53.81 Other malaise; R77.8 Other specified abnormalities of plasma proteins; Z23 Encounter for immunization; Z79.4 Long term (current) use of insulin; Z88.1 Allergy status to other antibiotic agents; Z79.82 Long term (current) use of aspirin; Z79.899 Other long term (current) drug therapy; Z90.710 Acquired absence of both cervix and uterus; Z20.822 Contact with and (suspected) exposure to COVID-19
CPT/HCPCS: 0240U; 36415; 36569; 71045; 71250; 74176; 76705; 76770; 80048; 80051; 80069; 80076; 81001; 82306; 82550; 82570; 82627; 82652; 82805; 82947; 83735; 83880; 83930; 83935; 83970; 84100; 84132; 84156; 84300; 84443; 84484; 84550; 85025; 85730; 87077; 87086; 87088; 87186; 90471; 90732; 93005; 93306; 94002; 94010; 94640; 94660; 96374; 96375; 97116; 97161; 97165; 97530; 99285; J0456; J1644; J1815; J1940; J2405; J3010; J3360; J3475; J7030; J7050; J7131; J7613; J7644; J8499

== ENCOUNTER 2022-10-26 09:21 | Inpatient (IN) | payer OTHER ==
--- OUTSIDE RECORDS SUMMARY | 2022-10-26 09:26 | XMS REPORT | Continuity of Care Document ---
:1955 Author Organization Formerly [facility] t Address [address] [place] [address] Dr. Jones [address] [place] [address] Care Team Providers Name Role Phone Benito Nugent Corby Primary Care Physician Alessandro Yeboah MD Attending Clinician Doctor Unassigned, [place] Attending Clinician Unavailable ALESSANDRO YEBOAH Attending Clinician Unavailable [facility]- DNP, Sylvester Coker Attending Clinician [phone] Elida ADEN, Paty Mitchell Attending Clinician Unavailable Payers Payer Name Policy Type Policy Number Effective Date Expiration Date S ource [facility] - [id number] 2012 00:00:00 OUT OF STATE Problems Condition Condition Condition Status Onset Resolution Last Treating Co mments Source Name Details Category Date Date Treatment Clinician Date Hypoglycem Hypoglycem Disease Active U nivers ia ia 9-28 ity of 00:00: [address] Vitamin D Vitamin D Disease Active Uni vers deficiency deficiency 2-20 it y of 00:00: [address] Insulin Insulin Disease Active 2015-11 Univers pump pump 2-05 ity [facility] tit[facility] [address] [place] [address] Insulin Insulin Disease Active 2015-11 Univers pump pump 2-05 ity of status status 00:00: [address] CKD CKD Disease Active 2015-11 Univers (chronic (chronic 2-05 ity of kidney kidney 00:00: [place] disease) disease) 00 Medica l stage 3, [...] of with with 00:00: g of this [place] background background 00 note Me dical retinopath retinopath might be Branch y y different from the original. ICD10 Diagnosis Term Acting Instructor Utility Type I Type I Disease Active [...] different from the original. ICD10 Diagnosis Term Acting Instructor Utility Allergies, Adverse Reactions, Alerts Allergy Allergy [...] Not sure University of SARS-CoV-2 00:00:00 09:09:00 [place] Medical (event) Branch Alcohol intake 2022-06-09 2022-06-09 Current University of 00:00:00 00:00:00 non-drinker of [facility] [place] [facility] alcohol (finding) [place] Tobacco use and 2022-06-09 2022-06-09 Smokeless tobacco Un iversity of exposure 00:00:00 00:00:00 non-user [facility] History of 1994-08-01 Cigarette Smoker Universi ty of tobacco use 00:00:00 [facility] Sex [birth year] Universit y of 00:00:00 00:00:00 [facility] Smoking Status Start Date Stop Date Source Ex-smoker 2022-06-09 00:00:00 2022-06-09 00:00:00 [facility] Medications Ordered Filled Start Stop Current Ordering Indication Dosage Frequency Signature Comments Components Source Medication Medication Date Date Medication? Clinician (SIG) Name Name insulin 2021-11 Yes [id number] USE IN [facility] ers aspart 0-17 INSULIN ity of RAPID 00:00: PUMP, [facility] (NOVOLOG 00 TO 50 Medical U-100 UNITS [place] INSULIN DAILY ASPART) 100 unit/mL injection insulin 2021-11 Yes [id number] USE IN [facility] ers aspart 0-17 INSULIN ity of RAPID 00:00: PUMP, [facility] (NOVOLOG 00 TO 50 Medical U-100 UNITS [place] INSULIN DAILY ASPART) 100 unit/mL injection insulin [...] every 72 Medical (OMNIPOD 5 (seventy-t Bra wyh G6 POD, GEN wo) hours. 5,) Crtg [...] every 72 Medical (OMNIPOD 5 (seventy-t Bra wyh G6 POD, GEN wo) hours. 5,) Crtg [...] GEN wo) hours. 5,) Crtg FREESTYLE Yes [id number] 1{each} Apply 1 Univers FABIENNE 2 7-27 Each to ity of SENSOR Kit 00:00: skin every [place] 00 14 Medical (fourteen) Branch days. Dx E11.65 FREESTYLE 2021-0 Yes [id number] 1{each} Apply 1 Univers FABIENNE 2 7-27 Each to ity of SENSOR Kit 00:00: skin every [place] 00 14 Medical (fourteen) Branch days. Dx E11.65 FREESTYLE 2021-0 Yes [id number] 1{each} Apply 1 Univers FABIENNE 2 7-27 Each to ity of SENSOR Kit 00:00: skin every [place] 00 14 Medical (fourteen) Branch days. Dx E11.65 FREESTYLE 2022-0 Yes [id number] 1{each} Apply 1 Univers FABIENNE 2 7-27 Each to ity of SENSOR Kit 00:00: skin every [place] 00 14 Medical (fourteen) Branch days. Dx E11.65 FREESTYLE 2021-0 Yes [id number] 1{each} Apply 1 Univers FABIENNE 2 7-27 Each to ity of SENSOR Kit 00:00: skin every [place] 00 14 Medical (fourteen) Branch days. Dx E11.65 insulin 2021-0 Yes [id number] USE IN Univ ers aspart 4-26 INSULIN ity of RAPID 00:00: PUMP, UP [place] (NOVOLOG 00 TO 50 Medical U-100 UNITS Branch INSULIN DAILY ASPART) 100 unit/mL injection insulin 2021-0 Yes [id number] USE IN Univ ers aspart 4-26 INSULIN ity of RAPID 00:00: PUMP, UP [place] (NOVOLOG 00 TO 50 Medical U-100 UNITS Branch INSULIN DAILY ASPART) 100 unit/mL injection insulin 2021-0 Yes [id number] USE IN Univ ers aspart 4-26 INSULIN ity of RAPID 00:00: PUMP, UP [place] (NOVOLOG 00 TO 50 Medical U-100 UNITS Branch INSULIN DAILY ASPART) 100 unit/mL injection insulin 2021-0 Yes [id number] USE IN Univ ers aspart 4-26 INSULIN ity of RAPID 00:00: PUMP, UP [place] (NOVOLOG 00 TO 50 Medical U-100 UNITS Branch INSULIN DAILY ASPART) 100 unit/mL injection insulin 2021-0 2021- No [id number] USE IN Uni vers aspart 4-26 10-17 INSULIN ity of RAPID 00:00: 00:00 PUMP, UP [place] (NOVOLOG 00 :00 TO 50 Medical U-100 UNITS Branch INSULIN DAILY ASPART) 100 unit/mL injection blood sugar 2020-11 Yes [id number] USE Univers diagnostic 2-07 DIRECTED ity o f (FREESTYLE 00:00: [place] TEST) strip [address] [facility] blood sugar 2020-11 Yes [id number] USE Univers diagnostic 2-07 DIRECTED ity o f (FREESTYLE 00:00: [place] TEST) strip [address] [facility] blood sugar 2020-11 Yes [id number] USE Univers diagnostic 2-07 DIRECTED ity o f (FREESTYLE 00:00: [place] TEST) strip [address] [facility] blood sugar 2020-11 Yes [id number] USE Univers diagnostic 2-07 DIRECTED ity o f (FREESTYLE 00:00: [place] TEST) strip [address] [facility] blood sugar 2020-11 Yes [id number] USE Univers diagnostic 2-07 DIRECTED ity o f (FREESTYLE 00:00: [place] TEST) strip [address] [facility] blood sugar 2020-11 Yes [id number] USE Univers diagnostic 2-07 DIRECTED ity o f (FREESTYLE 00:00: [place] TEST) strip [address] [facility] blood sugar 2020-11 Yes [id number] USE Univers diagnostic 2-07 DIRECTED ity o f (FREESTYLE 00:00: [place] TEST) strip 00 [facility] Branch Diclofenac 0 Yes APPLY TO Uni [...] AFFECTED ity o f gel 00:00: JOINT [place] 00 THREE Medical TIMES A Branch DAY NEEDED carvediloL 1-0 Yes 25mg Take 25 mg U nivers 25 mg 8-02 by mouth 2 ity of tablet 00:00: (two) [place] 00 times Medical daily. Branch carvediloL 2021-0 Yes 25mg Take 25 mg U nivers 25 mg 8-02 by mouth 2 ity of tablet 00:00: (two) [place] 00 times Medical daily. Branch carvediloL 2021-0 Yes 25mg Take 25 mg U nivers 25 mg 8-02 by mouth 2 ity of tablet 00:00: (two) [place] 00 times Medical daily. Branch carvediloL 2021-0 Yes 25mg Take 25 mg U nivers 25 mg 8-02 by mouth 2 ity of tablet 00:00: (two) [place] 00 times Medical daily. Branch carvediloL 2021-0 Yes 25mg Take 25 mg U nivers 25 mg 8-02 by mouth 2 ity of tablet 00:00: (two) [place] 00 times Medical daily. Branch carvediloL 1-0 Yes 25mg Take 25 mg U nivers 25 mg 8-02 by mouth 2 ity of tablet 00:00: (two) [place] 00 times Medical daily. Branch carvediloL 1-0 Yes 25mg Take 25 mg U nivers 25 mg 8-02 by mouth 2 ity of tablet 00:00: (two) [place] 00 times Medical daily. Branch flash 2020-0 [...] 00 Medical (FREESTYLE Branch FABIENNE 2 READER) [facility] flash 0 Yes 1{each} 1 Each Univers glucose 6-02 SEE-INSTRU ity of scanning 00:00: CTIONS. [place] reader 00 Medical (FREESTYLE Branch FABIENNE 2 READER) [facility] flash 0 Yes 1{each} 1 Each Univers glucose 6-02 SEE-INSTRU ity of scanning 00:00: CTIONS. [place] reader 00 Medical (FREESTYLE Branch FABIENNE 2 READER) [facility] flash Yes 1{each} 1 Each Univers glucose 6-02 SEE-INSTRU ity of scanning 00:00: CTIONS. [place] reader 00 Medical (FREESTYLE Branch FABIENNE 2 READER) [facility] aspirin 81 2019-11 Yes 81mg Take 81 [...] 11:48: Medical OPHTHALMIC) Branch glucagon 2020-0 Yes [id number] 1mg 1 mg by U nivers (GLUCAGON 8-18 Intramuscu ity of EMERGENCY 00:00: lar route [place] as KIT, 00 as needed Medical HUMAN,) 1 (hypoglyce Bran ch mg padma and injection unconsciou s). glucagon 2020-0 Yes [id number] 1mg 1 mg by U nivers (GLUCAGON 8-18 Intramuscu ity of EMERGENCY 00:00: lar route [place] KIT, 00 as needed Medical HUMAN,) 1 (hypoglyce Bran ch mg padma and injection unconsciou s). glucagon 2020-0 Yes [id number] 1mg 1 mg by U nivers (GLUCAGON 8-18 Intramuscu ity of EMERGENCY 00:00: lar route [place] KIT, 00 as needed Medical HUMAN,) 1 (hypoglyce Bran ch mg padma and injection unconsciou s). glucagon 2020-0 Yes [id number] 1mg 1 mg by U nivers (GLUCAGON 8-18 Intramuscu ity of EMERGENCY 00:00: lar route [place] KIT, 00 as needed Medical HUMAN,) 1 (hypoglyce Bran ch mg padma and injection unconsciou s). glucagon 2020-0 Yes [id number] 1mg 1 mg by U nivers (GLUCAGON 8-18 Intramuscu ity of EMERGENCY 00:00: lar route [place] KIT, 00 as needed Medical HUMAN,) 1 (hypoglyce Bran ch mg padma and injection unconsciou s). glucagon 2020-0 Yes [id number] 1mg 1 mg by U nivers (GLUCAGON 8-18 Intramuscu ity of EMERGENCY 00:00: lar route [place] KIT, 00 as needed Medical HUMAN,) 1 (hypoglyce Bran ch mg padma and injection unconsciou s). glucagon 2020-0 Yes [id number] 1mg 1 mg by U nivers (GLUCAGON [...] 00:00: [place] drops 00 [facility] Medical Branch Blood 2015-11 Yes Use as Univers Glucose 2-20 directed, ity of Control, 00:00: DX:E11.9 [place] Normal 00 Medical (GLUCOSE Branch CONTROL) Sol Blood 2015-11 Yes Use as Univers Glucose 2-20 directed, ity of Control, 00:00: DX:E11.9 [facility] 00 Medical (GLUCOSE Branch CONTROL) Sol Blood 2015-11 Yes Use as Univers Glucose 2-20 directed, ity of Control, 00:00: DX:E11.9 [place] Normal 00 Medical (GLUCOSE Branch CONTROL) Soln Blood 2016 Yes Use as Univers Glucose 2-20 directed, ity of Control, 00:00: DX:E11.9 [place] Normal 00 Medical (GLUCOSE Branch CONTROL) Soln Blood 2015-11 Yes Use as Univers Glucose 2-20 directed, ity of Control, 00:00: DX:E11.9 [place] Normal 00 Medical (GLUCOSE Branch CONTROL) Soln Blood 2016- Yes Use as Univers Glucose 2-20 directed, ity of Control, 00:00: DX:E11.9 [facility] 00 Medical (GLUCOSE Branch CONTROL) Soln Blood 2015- Yes Use as Univers Glucose 2-20 directed, ity of Control, 00:00: DX:E11.9 [facility] 00 Medical (GLUCOSE Branch CONTROL) Soln atorvastati 2015- Yes [id number] 40mg Take 1 Univers n (LIPITOR) 2-05 tablet by ity of 40 mg 00:00: mouth at [place] tablet 00 bedtime. Medical Branch atorvastati 2015-11 Yes [id number] 40mg Take 1 Univers n (LIPITOR) 2-05 tablet by ity of 40 mg 00:00: mouth at [place] tablet 00 bedtime. Medical Branch atorvastati 2015-11 Yes [id number] 40mg Take 1 Univers n (LIPITOR) 2-05 tablet by ity of 40 mg 00:00: mouth at [place] tablet 00 bedtime. Medical Branch atorvastati 2015-11 Yes [id number] 40mg Take 1 Univers n (LIPITOR) 2-05 tablet by ity of 40 mg 00:00: mouth at [place] tablet 00 bedtime. Medical Branch atorvastati 2015-11 Yes [id number] 40mg Take 1 Univers n (LIPITOR) 2-05 tablet by ity of 40 mg 00:00: mouth at [place] tablet 00 bedtime. Medical Branch atorvastati 2015-11 Yes [id number] 40mg Take 1 Univers n (LIPITOR) 2-05 tablet by ity of 40 mg 00:00: mouth at [place] tablet 00 bedtime. Medical Branch atorvastati 2015-11 Yes [id number] 40mg Take 1 Univers n (LIPITOR) 2-05 tablet by ity of 40 mg 00:00: mouth at [place] tablet 00 bedtime. Medical Branch amLODIPine 2015-11 Yes [id number] 10mg Take 1 U nivers (NORVASC) 0-26 tablet by ity o f 10 mg 00:00: mouth [place] tablet 00 daily. Medical Branch amLODIPine 2015-11 Yes [id number] 10mg Take 1 U nivers (NORVASC) 0-26 tablet by ity o f 10 mg 00:00: mouth [place] tablet 00 daily. Medical Branch amLODIPine 2015-11 Yes [id number] 10mg Take 1 U nivers (NORVASC) 0-26 tablet by ity o f 10 mg 00:00: mouth [place] tablet 00 daily. Medical Branch amLODIPine 2015-11 Yes [id number] 10mg Take 1 U nivers (NORVASC) 0-26 tablet by ity o f 10 mg 00:00: mouth [place] tablet 00 daily. Medical Branch amLODIPine 2015-11 Yes [id number] 10mg Take 1 U nivers (NORVASC) 0-26 tablet by ity o f 10 mg 00:00: mouth [place] tablet 00 daily. Medical Branch amLODIPine 2015-11 Yes [id number] 10mg Take 1 U nivers (NORVASC) 0-26 tablet by ity o f 10 mg 00:00: mouth [place] tablet 00 daily. Medical Branch amLODIPine 2015-11 Yes [id number] 10mg Take 1 U nivers (NORVASC) 0-26 tablet by ity o f 10 mg 00:00: mouth [place] tablet 00 daily. [facility] Branch lisinopril Yes [id number] 20mg Take 1 U nivers (PRINIVIL,Z 9-07 tablet by ity of ESTRIL) 20 00:00: mouth [place] mg tablet 00 daily. [facility] Branch lisinopril Yes [id number] 20mg Take 1 U nivers (PRINIVIL,Z 9-07 tablet by ity of ESTRIL) 20 00:00: mouth [place] mg tablet 00 daily. Medical Branch lisinopril Yes [id number] 20mg Take 1 U nivers (PRINIVIL,Z 9-07 tablet by ity of ESTRIL) 20 00:00: mouth [place] mg tablet 00 daily. [facility] Branch lisinopril Yes [id number] 20mg Take 1 U nivers (PRINIVIL,Z 9-07 tablet by ity of ESTRIL) 20 00:00: mouth [place] mg tablet 00 daily. [facility] Branch lisinopril Yes [id number] 20mg Take 1 U nivers (PRINIVIL,Z 9-07 tablet by ity of ESTRIL) 20 00:00: mouth [place] mg tablet 00 daily. [facility] Branch lisinopril Yes [id number] 20mg Take 1 U nivers (PRINIVIL,Z 9-07 tablet by ity of ESTRIL) 20 00:00: mouth [place] mg tablet 00 daily. [facility] Branch lisinopril Yes [id number] 20mg Take 1 U nivers (PRINIVIL,Z 9-07 tablet by ity of ESTRIL) 20 00:00: mouth [place] mg tablet 00 daily. [facility] Branch DIABETIC Yes use 5-6 Univer s SUPPLIES, 3-01 times ity of MISCELLAN. 00:00: daily as [place] as IN VITRO 00 directed. Medica l SOL Branch DIABETIC Yes use 5-6 Univer s SUPPLIES, 3-01 times ity of MISCELLAN. 00:00: daily as [place] IN VITRO [address] [facility] DIABETIC Yes use 5-6 Univer s SUPPLIES, 3-01 times ity of MISCELLAN. 00:00: daily as [place] as IN VITRO [address] [facility] DIABETIC Yes use 5-6 Univer s SUPPLIES, 3-01 times ity of MISCELLAN. 00:00: daily as [place] as IN VITRO [address] [facility] DIABETIC Yes use 5-6 Univer s SUPPLIES, 3-01 times ity of MISCELLAN. 00:00: daily as [place] as IN VITRO [address] [facility] DIABETIC Yes use 5-6 Univer s SUPPLIES, 3-01 times ity of MISCELLAN. 00:00: daily as [place] as IN VITRO [address] [facility] DIABETIC Yes use 5-6 Univer s SUPPLIES, 3-01 times ity of MISCELLAN. 00:00: daily as [place] IN VITRO [address] [facility] Immunizations Ordered Filled Immunization Date Status Comments [facility] Immunization Name Name SARS-COV-2 COVID-19 2021-01-17 Completed Unive rsity of MODERNA VACCINE 00:00:00 [facility] SARS-COV-2 COVID-19 2021-01-17 Completed Unive rsity of MODERNA VACCINE 00:00:00 [facility] SARS-COV-2 COVID-19 2021-01-17 Completed Unive rsity of MODERNA VACCINE 00:00:00 [facility] ical Branch SARS-COV-2 COVID-19 2021-01-17 Completed Unive rsity of MODERNA VACCINE 00:00:00 [facility] [place] SARS-COV-2 COVID-19 2021-01-17 Completed Unive rsity of MODERNA VACCINE 00:00:00 [facility] ical [place] SARS-COV-2 COVID-19 2021-01-17 Completed Unive rsity of MODERNA 12+ YRS 00:00:00 [facility] Branch SARS-COV-2 COVID-19 2021-01-17 Completed Unive rsity of MODERNA 12+ YRS 00:00:[address] [facility] VACCINE Branch SARS-COV-2 COVID-19 2020-12-20 Completed Unive rsity of MODERNA VACCINE 00:00:[address] [facility] Branch SARS-COV-2 COVID-19 2020-12-20 Completed Unive rsity of MODERNA VACCINE 00:00:00 [facility] SARS-COV-2 COVID-19 2020-12-20 Completed Unive rsity of MODERNA VACCINE 00:00:[address] [facility] Branch SARS-COV-2 COVID-19 2020-12-20 Completed Unive rsity of MODERNA VACCINE 00:00:00 [facility] SARS-COV-2 COVID-19 2020-12-20 Completed Unive rsity of MODERNA VACCINE 00:00:00 [facility] SARS-COV-2 COVID-19 2020-12-20 Completed Unive rsity of MODERNA 12+ YRS 00:00:[address] [facility] VACCINE Branch SARS-COV-2 COVID-19 2020-12-20 Completed Unive rsity of MODERNA 12+ YRS 00:00:[address] [facility] VACCINE Branch Influenza Virus 2020-07-02 Completed Universit y of Vaccine Quad .5 mL 00:00:00 [facility] 6+ MO Branch Influenza Virus 2020-07-02 Completed Universit y of Vaccine [place] .5 mL 00:00:00 [facility] 6+ MO Branch Influenza Virus 2020-07-02 Completed Universit y of Vaccine [place] .5 mL 00:00:00 [facility] 6+ MO Branch Influenza Virus 2020-07-02 Completed Universit y of Vaccine [place] .5 mL 00:00:00 [facility] 6+ MO Branch Influenza Virus 2020-07-02 Completed Universit y of Vaccine [place] .5 mL 00:00:00 [facility] 6+ MO Branch Influenza Virus 2020-07-02 Completed Universit y of Vaccine [place] .5 mL 00:00:00 [facility] 6+ MO Branch Influenza Virus 2020-07-02 Completed Universit y of Vaccine [place] .5 mL 00:00:00 [facility] 6+ MO Branch Procedures Procedure Date / Time Performing Clinician Source Performed INSURANCE CORRESPONDENCE 2022-06-24 05:01:00 Doctor Unassigned, [facility] [place] Medical Branch SCANNED LAB RESULTS 2022-04-05 05:01:00 Enid Sherman [facility] [place] Medical Branch SCANNED LAB RESULTS 2022-03-04 05:01:00 Enid Sherman [facility] [place] Medical Branch Encounters Start End Encounter Admission Attending Care Care Encounter Source Date/Time Date/Time Type Type Clinicians Facility Department ID 2022-09-09 2022-09-09 Telephone Alfonso [facility] [id number] Univers 00:00:00 00:00:00 Factual 350.1.13.10 it y of [place] 4.2.7.2.686 [place] as NICOLAS?BLEA [phone] [address] MEDICAL OFFICE BUILDING 2022-08-29 2022-08-29 Refill Alfonso [facility] [id number] Univers 00:00:00 00:00:00 Sopsy.commount [facility] Unified Inbox 350.1.13.10 it y of [place] 4.2.7.2.686 [place] as NICOLAS?BLEA [phone] [address] MEDICAL OFFICE BUILDING 2022-07-08 2022-07-08 Patient Alfonso [facility] [id number] Univers 00:00:00 00:00:00 Secure Msg [facility] MULTISPEC [id number] ity of [place] 4[place]2.[place]2.686 [place] [phone] [address] DIABETES CLINIC 2022-06-24 2022-06-24 Orders Doctor OWEN [id number] Univers 00:00:00 00:00:00 Only Unassigned, CIERRA 350.1.13.10 ity of [place] [facility] 4.2.7.2.686 [place] as [phone] [place] [address] Branch 2022-06-23 2022-06-23 Patient Alfonso MORAJI [id number] Univers 00:00:00 00:00:00 Secure Msg [place] MULTISPEC 350.1.13.10 ity of [place]2.[place] [phone] [address] DIABETES CLINIC 2022-06-09 2022-06-09 Outpatient R [facility] [id number] Univers 09:30:00 10:46:39 [facility] 2022-06-09 2022-06-09 [facility] [id number] Univers 09:30:00 10:46:39 Visit [facility] 350.1.13.10 it y of [place] 4.2.7.2.686 [place] as NICOLAS?BLEA [id number] [address] MEDICAL OFFICE BUILDING 2022-06-09 2022-06-09 [facility] [id number] Univers 09:30:00 09:30:00 [facility] 2022-06-09 2022-06-09 Orders Doctor BRAYDEN [id number] Univers 00:00:00 00:00:00 Only Unassigned, CIERRA 350.1.13.10 ity of [place] [facility] 4.2.7.2.686 [place] as [phone] [place] [address] Branch 2022-04-22 2022-04-22 Telephone [facility] [id number] Univers 00:00:00 00:00:00 [facility] HEALTH 350.1.13.10 it y of [place] 4.2.7.2.686 [place] as NICOLAS?BLEA [id number] [address] MEDICAL OFFICE [facility] 2022-04-16 2022-04-16 [facility] [id number] Univers 00:00:00 00:00:00 [facility] HEALTH 350.1.13.10 it y of [place] 4.2.7.2.686 [place] as NICOLAS?BLEA [phone] [address] MEDICAL OFFICE BUILDING 2022-04-05 2022-04-05 Orders Doctor BRAYDEN [id number] Univers 00:00:00 00:00:00 Only Unassigned, CIERRA 350.1.13.10 ity of [place] [facility] 4.2.7.2.686 [place] as [id number] [facility] 009 Branch 2022-03-29 2022-03-29 Patient Yeboah, MOMB [id number] Univers 00:00:00 00:00:00 Secure Msg [place] MULTISPEC 350.1.13.10 ity [place] [id number] [address] DIABETES CLINIC 2022-03-29 2022-03-29 Telephone Yeboah, [facility] [id number] Univers 00:00:00 00:00:00 [place] HEALTH 350.1.13.10 it y of [place] 4.2.7.2.686 [place] as NICOLAS?BLEA [phone] [address] MEDICAL OFFICE [facility] 2022-03-29 2022-03-29 Patient Yeboah, MOMB [id number] Univers 00:00:00 00:00:00 Secure Msg [place] MULTISPEC 350.1.13.10 ity [place].2.[place] [id number] [address] DIABETES CLINIC 2022-03-16 2022-03-16 Telephone Yeboah, [facility] [id number] Univers 00:00:00 00:00:00 Sopsy.comong HEALTH 350.1.13.10 it y of [place] 4.2.7.2.686 [place] as NICOLAS?BLEA [id number] [address] MEDICAL OFFICE [facility] 2022-03-09 2022-03-09 Refill Yeboah, [facility] [id number] Univers 00:00:00 00:00:00 [place] 350.1.13.10 i ty of [place] 4.2.7.2.686 [place] PROFESS[place] [phone] [address] 2022-03-09 2022-03-09 Refill Yeboah, [facility] 1.2.840.114 [id number] Univers 00:00:00 00:00:00 [place] 350.1.13.10 i ty of [place] 4.2.7.2.686 [place] PROFESS[place] [id number] [address] 2022-03-09 2022-03-09 Refill Alfonso [facility] 1.2.840.114 [id number] Univers 00:00:00 00:00:00 Went[place]ia teresa [place] 350.1.13.10 i ty [place] 4.2.7.2.686 [place] PROFESS[place] [phone] [address] 2022-03-09 2022-03-09 [facility] 1.2.840.114 [id number] Univers 00:00:00 00:00:00 [facility] 350.1.13.10 i ty of [place] 4.2.7.2.[place] PROFESS[place] [id number] [address] 2022-03-04 2022-03-04 Orders Doctor BRAYDEN [id number] [id number] Univers 00:00:00 00:00:00 Only Unassigned, CI[place] 350.1.13.10 ity of [place] [facility] 4.2.7.2.686 Pablo as [phone] [address] 2021-12-22 2021-12-22 Outpatient R ALFONSO [facility] [id number] Univers 12:00:00 13:18:36 [facility] 2021-12-22 2021-12-22 [facility] 1.2.840.114 [id number] Univers 12:00:00 13:18:36 Visit [facility] 350.1.13.10 it y of [place] 4.2.7.2.686 [place] as NICOLAS?BLEA [phone] [address] MEDICAL OFFICE BUILDING 2021-12-22 2021-12-22 Orders Doctor BRAYDEN 1.2.840.114 [id number] Univers 00:00:00 00:00:00 Only Unassigned, CIERRA 350.1.13.10 ity of [place] [facility] 4.2.7.2.686 [place] as [id number] [address] 2021-10-20 2021-10-20 Andria Montenegro [facility] 1.2.840.114 [id number] Univers 00:00:00 00:00:00 Sylvester TORRES 350.1.13.10 ity of [place] 4.2.7.2.686 [place] CENTER [phone] [facility] AND [address] DIABETES CLINIC 2021-09-25 2021-09-25 Refthierno Yeboah [facility] 1.2.840.114 [id number] Univers 00:00:00 00:00:00 Alessandro RIVERSIDE 350.1.13.10 i ty of [facility] [place] [phone] [address] 2021-09-25 2021-09-25 Andria Yeboah [facility] 1.2.840.114 [id number] Univers 00:00:00 00:00:00 Alessandro RIVERSIDE 350.1.13.10 i ty of [facility] [place] [phone] [address] 2021-09-22 2021-09-22 [facility] 1.2.840.114 [id number] Univers 00:00:00 00:00:00 Alessandro RIVERSIDE 350.1.13.10 [place] [phone] [address] 2021-08-11 2021-08-11 Outpatient R ALFONSO [facility] [id number] Univers 16:00:00 16:00:00 [facility] ity [facility] 2021-08-11 2021-08-11 Office [facility] 1.2.840.114 [id number] Univers 12:47:49 14:19:45 Visit [facility] 350.1.13.10 it y of [place] 4.2.7.2.686 Pablo as Nicolas?Blea [phone] [address] Medical Office Building 2021-08-11 2021-08-11 Orders Doctor OWEN 1.2.840.114 [id number] Univers 00:00:00 00:00:00 Only Unassigned, CIERRA 350.1.13.10 ity of [place] [facility] 4.2.7.2.686 Pablo as [phone] [facility] [address] 2021-08-11 2021-08-11 Telephone [facility] 1.2.456.912 [id number] Univers 00:00:00 00:00:00 [facility] 350.1.13.10 it y of [place] 4.2.7.2.686 Pablo as Nicolas?Blea [phone] [address] Medical Office Building 2021-07-28 2021-07-28 Outpatient R ALFONSO [facility] [id number] Univers 10:30:00 10:30:00 WENTONG ity of [facility] 2021-05-08 2021-05-08 [facility] 1.2.840.114 [id number] Univers 00:00:00 00:00:00 Secure Msg Wentong MULTISPEC 350.1.13.10 ity [place] [phone] [facility] AND [address] DIABETES CLINIC 2021-04-09 2021-04-09 Orders Doctor BRAYDEN 1.2.840.114 [id number] Univers 00:00:00 00:00:00 Only Unassigned, CIERRA 350.1.13.10 ity of [place] [facility] 4.2.7.2.686 Pablo as [phone] [address] 2021-04-06 2021-04-06 [facility] 1.2.180.508 [id number] Univers 00:00:00 00:00:00 [place] 350.1.13.10 i [place] [phone] [facility] [address] [facility] 2021-04-01 2021-04-01 [facility] 1.2.840.114 [id number] Univers 00:00:00 00:00:00 Secure Msg Went[place] 350.1.13.10 it[place] [phone] [address] 2021-03-30 2021-03-30 [facility] 1.2.840.114 [id number] Univers 00:00:00 00:00:00 Alessandro Castro 350.1.13.10 i [place] [phone] [address] 2021-03-27 2021-03-27 [facility] 1.2.840.114 [id number] Univers 00:00:00 00:00:00 Secure Msg Jennymaria teresa MULTISPEC 350.1.13.10 it[facility] 4.2.7.2.[place] [phone] [facility] AND [address] DIABETES CLINIC 2021-03-26 2021-03-26 [facility] 1.2.840.114 [id number] Univers 00:00:00 00:00:00 Alessandro Castro 350.1.13.10 [place] [phone] [address] 2021-03-26 2021-03-26 [facility] 1.2.385.516 [id number] Univers 00:00:00 00:00:00 Alessandro Castro 350.1.13.10 [place] [phone] [address] 2021-03-25 2021-03-25 [facility] 1.2.840.114 [id number] Univers 10:45:02 12:10:14 Visit Alessandro Castro 350.1.13.10 i [place] [phone] [address] 2021-03-25 2021-03-25 [facility] [id number] Univers 11:00:00 11:00:00 WENTONG ity of [facility] 2021-03-25 2021-03-25 Orders Doctor OWEN 1.2.840.114 [id number] Univers 00:00:00 00:00:00 Only Unassigned, CIERRA 350.1.13.10 ity of [place] [facility] 4.2.7.2.686 Pablo as [phone] [place] [address] [address] 2021-03-13 2021-03-13 Orders Doctor BRAYDEN 1.2.840.114 [id number] Univers 00:00:00 00:00:00 Only Unassigned, CIERRA 350.1.13.10 ity of [place] [facility] 4.2.7.2.686 Pablo as [phone] [place] [address] [address] 2021-03-12 2021-03-12 [facility] [id number] Univers 00:00:00 00:00:00 Wentong MULTISPEC 350.1.13.10 ity [place] [phone] [facility] AND MOBILE [address] [place] DIABETES CLINIC 2021-01-17 2021-01-17 Outpatient [facility] [id number] Univers 08:10:00 08:10:00 ity of [facility] 2020-12-20 2020-12-20 Outpatient [facility] [id number] Univers 08:00:00 08:00:00 ity of [facility] 2020-11-04 2020-11-04 Office [facility] 1.2.840.114 [id number] Univers 11:20:30 12:25:53 Visit Alessandro Castro 350.1.13.10 i [place] Profess[place] [phone] [facility] 2020-11-04 2020-11-04 [facility] [id number] Univers 11:30:00 11:30:00 JENNYONG ity of [facility] 2020-11-04 2020-11-04 Orders Doctor BRAYDEN 1.2.840.114 [id number] Univers 00:00:00 00:00:00 Only Unassigned, CIERRA 350.1.13.10 ity of [place] [facility] 4.2.7.2.686 Pablo as [phone] [address] 2020-10-31 2020-10-31 [facility] 1.2.149.505 [id number] Univers 00:00:00 00:00:00 [place] 350.1.13.10 i [place] [phone] [address] 2020-10-29 2020-10-29 [facility] 1.2.840.114 [id number] Univers 00:00:00 00:00:00 Went[place] 350.1.13.10 i ty [place]2.[place] [phone] [address] 2020-10-17 2020-10-17 [facility] 1.2.840.114 [id number] Univers 00:00:00 00:00:00 Went[place] 350.1.13.10 i ty [place]2.[place].2.[place] Profess[place] [phone] [address] 2020-07-01 2020-07-01 Outpatient [facility] [id number] Univers 11:00:00 11:00:00 WENTONG ity [facility] 2020-07-01 2020-07-01 Telemedici [facility] 1.2.840.114 [id number] Univers 08:08:16 08:38:16 ne Visit Alessandro [place] 350.1.13.10 ity [place] [phone] [address] 2020-07-01 2020-07-01 Orders Doctor BRAYDEN 1.2.840.114 [id number] Univers 00:00:00 00:00:00 Only Unassigned, CIERRA 350.1.13.10 ity of [place] [facility] 4.2.7.2.686 Pablo as [phone] [address] 2020-05-07 2020-05-07 [facility] 1.2.713.576 [id number] Univers 00:00:00 00:00:00 Wentong [place] 350.1.13.10 i ty [place]2.[place] [phone] [address] 2020-03-25 2020-03-26 [facility]ici [facility] 1.2.840.114 [id number] Univers 08:07:43 08:25:32 ne Visit Alessandro Castro 350.1.13.10 ity of [place]2.[place] [phone] [address] 2020-03-26 2020-03-26 Telephone [facility] 1.2.034.592 [id number] Univers 00:00:00 00:00:00 Alessandro [place] 350.1.13.10 i [place] [phone] [address] 2020-03-26 2020-03-26 Orders Doctor BRAYDEN 1.2.840.114 [id number] Univers 00:00:00 00:00:00 Only Unassigned, CIERRA 350.1.13.10 ity of [place] [facility] 4.2.7.2.686 Pablo as [phone] [address] 2020-03-25 2020-03-25 Outpatient [facility] [id number] Univers 15:30:00 15:30:00 WENTONG ity [facility] 2020-03-12 2020-03-12 Telephone [facility] [id number] Univers 00:00:00 00:00:00 Alessandro Castro 350.1.13.10 i [place] [phone] [address] 2020-03-11 2020-03-11 [facility] 1.2.236.402 [id number] Univers 00:00:00 00:00:00 Jennyong [place] 350.1.13.10 i ty [place]2.[place].2.[place] [phone] [address] 2020-03-10 2020-03-10 Orders Doctor BRAYDEN 1.2.840.114 [id number] Univers 00:00:00 00:00:00 Only Unassigned, CIERRA 350.1.13.10 ity of [place] [facility] 4.2.7.2.686 Pablo as [phone] [facility] [address] 2020-03-06 2020-03-06 Telephone Yeboah, [facility] 1.2.012.468 [id number] Univers 00:00:00 00:00:00 Wentong [place] 350.1.13.10 [place]2.[place] [phone] [facility] 2020-03-04 2020-03-04 Telephone Yeboah, [facility] 1.2.429.336 [id number] Univers 00:00:00 00:00:00 Went[place] 350.1.13.10 i [place]2.[place] [phone] [facility] 220 [facility] 2020-02-28 2020-02-28 Refill Doctor [facility] 1.2.840.114 [id number] Univers 00:00:00 00:00:00 Unassigned, [place] 350.1.13.10 ity of [place]2.7.2.[place] Profess[place] [phone] [facility] 220 [facility] 2020-01-22 2020-01-22 Refill Elida [facility] 1.2.840.114 [id number] Univers 00:00:00 00:00:00 Paty MULTISPEC 350.1.13.10 ity of [place]2.[place] C[place] [phone] [facility] AND ALVARADO [address] DIABETES CLINIC 2020-01-22 2020-01-22 Refill Alfonso, [facility] 1.2.840.114 [id number] Univers 00:00:00 00:00:00 Went[place] 350.1.13.10 i ty [place].2.[place] [phone] [facility] 2019-12-18 2019-12-18 Refill Alfonso, [facility] 1.2.840.114 [id number] Univers 00:00:00 00:00:00 Alessnadro Castro 350.1.13.10 i ty of [place].2.[place] [phone] Ak dical nal [address] Building 2019-07-12 2019-07-12 Andria Marrero [facility] 1.2.840.114 [id number] Univers 00:00:00 00:00:00 Paty Castro 350.1.13.10 i ty of [place] [phone] [facility] [address] [facility] Results This patient has no known results.
[2022-10-26 10:19] LABS: Absolute Lymphocytes (CBC) 1.2 K/uL (0.7-4.9); Hematocrit 31.2 % (36.0-45.0); Lymphocytes % 14.7 % (15.3-44.8); MCV 91.4 fL (80-100); MPV 10.7 fL (7.6-11.3); RBC Red Blood Cell Count 3.42 M/uL (3.86-4.86)
[2022-10-26 10:27] LABS: Protime INR 0.91
[2022-10-26] MEDS ORDERED: NA CHLORIDE 0.9% 1,000 ML ONE ×2 (10:28→16:42)
[2022-10-26] MEDS ORDERED: NA CHLORIDE 0.9% 500 ML ONE (10:28)
--- NOTE | 2022-10-26 10:55 | RAD REPORT ---
EXAM DESCRIPTION: CT - Abdomen Pelvis Wo Contrast - 10/26/2022 10:36 am CLINICAL HISTORY: renal failure , multiple falls, vomiting COMPARISON: Abdomen Pelvis Wo Contrast dated 10/09/2022; Liver Only dated 10/11/2022 TECHNIQUE: Axial [address] imaging of the abdomen and pelvis was performed without IV contrast. No IV contrast was given because of allergy, abnormal renal function, patient refusal or physician re quest. No oral contrast administered. All CT scans are performed using dose optimization technique as appropriate and may include automated exposure control or mA/KV adjustment according to patient size. FINDINGS: Small left-sided and trace right-sided pleural effusions. No cardiomegaly or pericardial e ffusion. In the midline left lobe a vague 16 x 16 rounded low-density masses seen. In the inferior right lobe a 3.4 cm AP x 2.4 cm TR low-density mass is present. These were present on the recent October 09 daryn dy. These do not have simple cyst characteristics. A more aggressive liver lesion cannot be excluded. The patient has a slightly mottled attenuation pattern on this noncontrast study. No splenomegaly or focal splenic finding. No pancreatic or peripancreatic acute process. Gallbladder is filled with multiple gallstones. Acute gallbladder process is not seen. No biliary tr ee dilatation. No hydronephrosis or suspicious renal mass. Bilateral adrenal gland fullness matches recent imaging. Isodense renal masses and pyelonephritis cannot be excluded in the absence of IV contrast. The urina ry bladder is without significant finding. Hysterectomy status is uncertain. There is a 2.6 centimete r focus of soft tissue along the right-side of what appears to be the vaginal cuff. An 18 millimeter cyst is present at this site as well. This could be atrophic uterus. Right ovary with ovarian cyst is possible. Left ovary is not identified and may be atrophic or surgically absent. Small hiatal hernia is present. No acute gastric finding identifiable. No outlet obstruction. Small b owel is unremarkable. No appendicitis findings. Patient has a mobile cecum configuration. There is a large amount of stool distending the colon from cecum to splenic flexure. Stool volume is more modera te in the descending colon with the sigmoid colon decompressed. Rectal stool is minimal. A primary co rolando process is not suspected. The trace pleural effusion in the subcutaneous fatty tissue fluid retention seen in September is no l onger present. Pleural effusions have decreased substantially since October 09 imaging. No free air, free fluid or inflammatory stranding. No hernia, mass or bulky lymphadenopathy. No suspicious bony findings. IMPRESSION: Non-contrast enhanced CT abdomen and pelvis imaging show no acute or emergent finding. The patient has rounded low-density lesion in the midline left lobe and an irregularly-shaped 3.4 gee timeter mass in the inferior right lobe. These are stable from short interval October 09 study. Liver lesions are nonspecific. Neoplastic process cannot be excluded. Large amount of stool is present distending the colon from cecum to splenic flexure.
--- NOTE | 2022-10-26 10:58 | RAD REPORT ---
EXAM DESCRIPTION: CT - CTHCSPWOC - 10/26/2022 10:36 am CLINICAL HISTORY: fall, head and neck injury COMPARISON: No comparisons TECHNIQUE: Axial 5 mm thick images of the head were obtained. Axial 2 mm thick images of the cervic al spine were obtained with sagittal and coronal reconstruction images generated and reviewed. All CT scans are performed using dose optimization technique as appropriate and may include automated exposure control or mA/KV adjustment according to patient size. FINDINGS: No intracranial hemorrhage, mass, edema or acute intracranial finding. No suspicion for ac redding infarction. Mild atrophy and chronic ischemic changes seen. Ventricles are normal the amount of v olume loss. Arterial and physiologic calcifications are present. Mastoid air cells are clear. Chronic right maxillary sinusitis present. No globe or orbit abnormality seen. No skull fracture. Cervical body height and alignment are normal. C6-7 disc space narrowing present with endplate spurri ng. No fracture or acute bony abnormality. No pathologic bone process. Arterial calcifications are pr esent. Mild bony foraminal encroachment at C6-7. Central canal detail is inherently limited. No paraspinal mass or hematoma. IMPRESSION: Negative CT head examination for acute or significant finding. Negative CT cervical spine examination for acute or significant finding. Incidental note of chronic right maxillary sinusitis.
--- NOTE | 2022-10-26 10:59 | RAD REPORT ---
EXAM DESCRIPTION: RAD - Chest Single View - 10/26/2022 10:46 am CLINICAL HISTORY: SOB COMPARISON: Portable 10/13/2022 TECHNIQUE: AP portable chest image was obtained 10/26/2022 10:46 am . FINDINGS: No focal mass or consolidation. No failure or volume overload finding seen. Right-side PIC C line has been removed since the prior examination. Heart and vasculature are normal. No pneumothora x is present. No large pleural effusion. Minimal or small bilateral pleural effusions cannot be exclu ded. Posterior gutter assessment is limited on portable imaging. No acute bony abnormality seen. No a cute aortic findings suspected. IMPRESSION: No acute cardiopulmonary process.
[2022-10-26 11:12] LABS: Albumin 3.4 g/dL (3.4-5.0); Bilirubin Total 0.6 mg/dL (0.2-1.0); Magnesium 2.4 mg/dL (1.6-2.4); Phosphorus 4.1 mg/dL (2.5-4.9); Protein, Total 6.4 g/dL (6.4-8.2); Troponin High Sensitivity 34.4 pg/mL (<58.9)
[2022-10-26 11:19] LABS: Albumin 3.4 g/dL (3.4-5.0); Bilirubin Direct 0.2 mg/dL (0-0.2); Bilirubin Total 0.5 mg/dL (0.2-1.0); Protein, Total 6.4 g/dL (6.4-8.2)
[2022-10-26 11:27] LABS: Ferritin 113.7 ng/mL (8-388); Thyroid Stimulating Hormone 2.62 uIU/mL (0.358-3.740)
[2022-10-26 11:50] LABS: Urine Blood Negative (Negative); Urine Glucose Negative (Negative); Urine Protein 2+ (Negative); Urine Specific Gravity 1.015 (1.005-1.030)
--- NOTE | 2022-10-26 13:35 | ER ---
Nurse's Notes [facility] Name: Josselin Rowley Age: 67 yrs Sex: Female : 1955 Arrival Date: 10/26/2022 Time: 09:25 Bed 8 Private MD: Diagnosis: Hypo-osmolality and hyponatremia;Diastolic (congestive) heart failure;Chronic kidney disease, stage 4 (severe) Presentation: 10/26 09:38 Chief complaint: Patient states: sent by due to abnormal labs; cant hold jh5 anything down food coronel and doesn't want to eat since she was discharged...has been falling multiple times over the last couple days. Coronavirus screen: Vaccine status: Patient reports receiving the 2nd dose of the covid vaccine. Client denies travel out of the [place] in the last 14 days. Ebola Screen: Patient negative for fever greater than or equal to 101.5 degrees Fahrenheit, and additional compatible Ebola Virus Disease symptoms Patient denies exposure to infectious person. Patient denies travel to an Ebola-affected area in the 21 days before illness onset. Initial Sepsis Screen: Does the patient meet any 2 criteria? No. Patient's initial sepsis screen is negative. Does the patient have a suspected source of infection? No. Patient's initial sepsis screen is negative. Risk Assessment: Do you want to hurt yourself or someone else? Patient reports no desire to harm self or others. 09:38 Method Of Arrival: Wheelchair [facility] er 09:38 Acuity: DAVID 2 5 Triage Assessment: 09:39 General: Appears uncomfortable, Behavior is calm, cooperative, appropriate for age. 5 Pain: Denies pain. Historical: - Allergies: 09:39 Codeine; jh5 09:39 Sulfa (Sulfonamide Antibiotics); jh5 - PMHx: 09:39 diabetes mellitus; Hypertensive disorder; kidney problem; 5 - Immunization history:: Adult Immunizations up to date. - Social history:: Smoking status: Patient/guardian denies using tobacco. Screenin:11 Abuse screen: Denies threats or abuse. Denies injuries from another. Nutritional iw screening: No deficits noted. Tuberculosis screening: No symptoms or risk factors identified. Assessment: 11:11 General: Appears in no apparent distress. Behavior is calm, cooperative. Neuro: Level iw of Consciousness is awake, alert, obeys commands, Oriented to person, place, time, situation, Moves all extremities. Cardiovascular: Patient's skin is warm and dry. Respiratory: Respiratory effort is even, unlabored, Respiratory pattern is regular. 11:50 Reassessment: Patient appears in no apparent distress at this time. babcock in place, iw warm blankets given, placed back on monitor, call light in reach. 13:25 Reassessment: Patient appears in no apparent distress at this time. pt repositioned in iw bed, warm blanket given. 14:37 Reassessment: Patient appears in no apparent distress at this time. Patient and/or iw family updated on plan of care and expected duration. Pain level reassessed. Patient is alert, oriented x 3, equal unlabored respirations, skin warm/dry/pink. pt given wilbur crackers and water , potassium infusing to LAC. Vital Signs: 09:38 BP 98 / 44; Pulse 78; Resp 16; Temp 98.6; Pulse Ox 100% ; Weight 69.4 kg; Height 4 ft. jh5 8 in. (142.24 cm); 11:11 BP 130 / 65; Pulse 72; Resp 16; Pulse Ox 100% on R/A; iw 12:03 BP 119 / 47; Pulse 82; Resp 16; Pulse Ox 99% on R/A; iw 14:37 BP 121 / 50; Pulse 89; Resp 16; Pulse Ox 100% on R/A; iw 09:38 Body Mass Index 34.30 (69.40 kg, 142.24 cm) jh5 ED Course: 09:25 Patient arrived in ED. rg4 09:37 Shiva Lind DO is Attending Physician. ms3 09:39 Triage completed. jh5 09:39 Arm band placed on right wrist. jh5 09:54 Amber Dyer FNP-C is PHCP. ms3 10:00 Alana Boyer, RN is Primary Nurse. iw 10:38 CT Abd/Pelvis - Without Contrast In Process Unspecified. EDMS 10:38 Head C Spine Mpr Wo Con In Process Unspecified. EDMS 10:46 Chest Single View XRAY In Process Unspecified. EDMS 11:22 No provider procedures requiring assistance completed. iw 11:51 Babcock cath inserted, using sterile technique, 16 Fr., by front tender, balloon inflated, iw returned clear yellow urine. Patient tolerated well. 13:33 Juan Luis Nugent MD is Hospitalizing Provider. snw Administered Medications: 11:00 Drug: NS 0.9% 500 ml Volume: 500 ml; Route: IV; Rate: 1 bolus; Site: right antecubital; iw 11:15 Drug: NS 0.9% 1000 ml Route: IV; Rate: 75 ml/hr; Site: right antecubital; iw 11:45 Drug: NS 0.9% 500 ml Route: IV; Rate: bolus; Site: right antecubital; iw 14:04 CANCELLED (Physician Discretion): NS 0.9% with KCl 40 mEq/L 1000 ml IV at 80 ml/hr snw continuous 14:30 Drug: Potassium Effervescent Tablet 50 mEq Route: PO; iw 14:30 Drug: Potassium Chloride 20 mEq Route: IV; Rate: calculated rate; Site: right iw antecubital; 17:06 Drug: Potassium Chloride 20 mEq Route: IV; Rate: calculated rate; Site: right iw antecubital; Outcome: 13:34 Decision to Hospitalize by Provider. snw 18:31 Patient left the ED. iw Signatures: Dispatcher [employer] EDMS Amber Dyer, COLLEGE INSTRUCTOR-C COLLEGE INSTRUCTOR-Csnw Alana Boyer RN RN iw Jeannie Alvarez rg4 Shiva Lind DO DO ms3 Keyonna Grijalva, EMMA RN jh5 Corrections: (The following items were deleted from the chart) 09:39 09:38 Chief complaint: Patient states: sent by due to abnormal labs [place] [id number]
--- NOTE | 2022-10-26 13:35 | EDPHYS ---
Physician Documentation [facility] Name: Josselin Rowley Age: 67 yrs Sex: Female : 1955 Arrival Date: 10/26/2022 Time: 09:25 Bed 8 Private MD: ED Physician Shiva Lind HPI: 10/26 10:15 This 67 yrs old Female presents to ER via Wheelchair with complaints of Abnormal Lab snw Results. 10:[address] Nugent, she has a history of diastolic heart failure, renal failure, DM, snw hyponatremia. Pt had an extensive workup last month. For the past two days pt has had N/V, weakness, has fallen at least twice. Outpatient labs reveal sodium of 114 and a creatinine close to 4. Dr. Momin was consulted in the ED today prior to pt's arrival. Dr. Grover consulted on her last month and ECHO was performed. . Onset: The symptoms/episode began/occurred acutely. Severity of symptoms: At their worst the symptoms were moderate in the emergency department the symptoms are unchanged. The patient has experienced a previous episode. as ntoed. Historical: - Allergies: 09:39 Codeine; jh5 09:39 Sulfa (Sulfonamide Antibiotics); jh5 - PMHx: 09:39 diabetes mellitus; Hypertensive disorder; kidney problem; jh5 - Immunization history:: Adult Immunizations up to date. - Social history:: Smoking status: Patient/guardian denies using tobacco. ROS: 10:12 Eyes: Negative for injury, pain, redness, and discharge, ENT: Negative for injury, snw pain, and discharge, Neck: Negative for injury, pain, and swelling, Cardiovascular: Negative for chest pain, palpitations, and edema, Respiratory: Negative for shortness of breath, cough, wheezing, and pleuritic chest pain. 10:12 Back: Negative for injury and pain, : Negative for injury, bleeding, discharge, and swelling, MS/Extremity: Negative for injury and deformity, Skin: Negative for injury, rash, and discoloration. 10:12 Constitutional: Positive for body aches, poor PO intake, generalized weakness. 10:12 Abdomen/GI: Positive for nausea, vomiting. 10:12 Neuro: Positive for weakness, pt's Spouse states pt does semi okay in the mornings and then by the afternoon she appears weak, drunk. Exam: 10:11 Head/Face: Normocephalic, atraumatic. Eyes: Pupils equal round and reactive to light, snw extra-ocular motions intact. Lids and lashes normal. Conjunctiva and sclera are non-icteric and not injected. Cornea within normal limits. Periorbital areas with no swelling, redness, or edema. ENT: Nares patent. No nasal discharge, no septal abnormalities noted. Tympanic membranes are normal and external auditory canals are clear. Oropharynx with no redness, swelling, or masses, exudates, or evidence of obstruction, uvula midline. Mucous membranes moist. Neck: Trachea midline, no thyromegaly or masses palpated, and no cervical lymphadenopathy. Supple, full range of motion without nuchal rigidity, or vertebral point tenderness. No Meningismus. Chest/axilla: Normal chest wall appearance and motion. Nontender with no deformity. No lesions are appreciated. Cardiovascular: Regular rate and rhythm with a normal S1 and S2. No gallops, murmurs, or rubs. Normal PMI, no JVD. No pulse deficits. Respiratory: Lungs have equal breath sounds bilaterally, clear to auscultation and percussion. No rales, rhonchi or wheezes noted. No increased work of breathing, no retractions or nasal flaring. Abdomen/GI: Soft, non-tender, with normal bowel sounds. No distension or tympany. No guarding or rebound. No evidence of tenderness throughout. Back: No spinal tenderness. No costovertebral tenderness. Full range of motion. MS/ Extremity: Pulses equal, no cyanosis. Neurovascular intact. Full, normal range of motion. 10:11 Constitutional: The patient appears awake, frail, obviously ill. 10:11 Skin: Appearance: Color: dusky. 10:11 Neuro: Orientation: is normal, Mentation: slow to respond, mildly slurred speech. 11:49 ECG was reviewed by the Attending Physician. snw Vital Signs: 09:38 BP 98 / 44; Pulse 78; Resp 16; Temp 98.6; Pulse Ox 100% ; Weight 69.4 kg; Height 4 ft. jh5 8 in. (142.24 cm); 11:11 BP 130 / 65; Pulse 72; Resp 16; Pulse Ox 100% on R/A; iw 12:03 BP 119 / 47; Pulse 82; Resp 16; Pulse Ox 99% on R/A; iw 14:37 BP 121 / 50; Pulse 89; Resp 16; Pulse Ox 100% on R/A; iw 09:38 Body Mass Index 34.30 (69.40 kg, 142.24 cm) jh5 MDM: 09:30 Physician consultation: Dmitriy Momin MD was contacted at 09:30, Dr Momin consulted snw on pt condition and will see pt in inpatient unit. 09:54 Patient medically screened. ms3 13:34 Data reviewed: vital signs, nurses notes. Data interpreted: Pulse oximetry: on room air snw is 99 %. Interpretation: normal. Counseling: I had a detailed discussion with the patient and/or guardian regarding: the historical points, exam findings, and any diagnostic results supporting the discharge/admit diagnosis, lab results, radiology results, the need for further work-up and treatment in the hospital. Physician consultation: A Jovanna ADEN regarding admission, to the ICU, would like consultation with Dr. Dr. Momin for CHF, done from ED. Dr. Sierra for management of renal failure and hyponatremia. 10/26 09:51 Order name: CBC with Diff; Complete Time: 10:38 snw 10/26 09:51 Order name: CMP; Complete Time: 11:32 snw 10/26 09:51 Order name: Phosphorus; Complete Time: 11:32 snw 10/26 09:51 Order name: Magnesium; Complete Time: 11:32 snw 10/26 09:51 Order name: Hepatitis Panel snw 10/26 09:51 Order name: Osmolality, Serum; Complete Time: 11:36 snw 10/26 09:51 Order name: Urine Potassium Random; Complete Time: 12:21 snw 10/26 09:51 Order name: Urine Sodium Random; Complete Time: 12:21 snw 10/26 09:51 Order name: Urine Osmolality; Complete Time: 12:57 snw 10/26 09:51 Order name: Lipid Profile; Complete Time: 11:32 snw 10/26 09:51 Order name: CK; Complete Time: 11:32 snw 10/26 09:51 Order name: Troponin High Sensitivity; Complete Time: 11:32 snw 10/26 09:51 Order name: BNP; Complete Time: 11:32 snw 10/26 09:59 Order name: TSH; Complete Time: 11:29 snw 10/26 09:59 Order name: Ferritin; Complete Time: 11:29 snw 10/26 09:59 Order name: PT-INR; Complete Time: 10:38 snw 10/26 09:59 Order name: Ptt, Activated; Complete Time: 10:38 snw 10/26 10:15 Order name: LFT's; Complete Time: 11:20 snw 10/26 11:51 Order name: Urine Dipstick-Ancillary; Complete Time: 11:52 EDMS 10/26 12:59 Order name: Chem 7; Complete Time: 14:03 snw 10/26 13:11 Order name: SARS RAPID; Complete Time: 13:42 aa5 10/26 15:49 Order name: CBC with Automated Diff EDMS 10/26 15:49 Order name: Magnesium EDMS 10/26 15:49 Order name: Phosphorus EDMS 10/26 15:49 Order name: Basic Metabolic Panel EDMS 10/26 15:49 Order name: Basic Metabolic Panel; Complete Time: 18:41 EDMS 10/26 15:49 Order name: Basic Metabolic Panel EDMS 10/26 09:44 Order name: EKG; Complete Time: 09:44 [facility] 10/26 09:44 Order name: Cardiac monitoring; Complete Time: 10:17 [facility] 10/26 09:44 Order name: EKG - Nurse/Tech; Complete Time: 10:24 [facility] 10/26 09:44 Order name: IV Saline Lock; Complete Time: 10:17 [facility] 10/26 09:44 Order name: Labs collected and sent; Complete Time: 10:17 [facility] 10/26 09:44 Order name: O2 Per Protocol; Complete Time: 10:17 [facility] 10/26 09:44 Order name: O2 Sat Monitoring; Complete Time: 10:17 [facility] 10/26 09:51 Order name: [place]; Complete Time: 11:51 snw 10/26 09:51 Order name: EKG; Complete Time: 09:52 w 10/26 10:10 Order name: CT Abd/Pelvis - Without Contrast; Complete Time: 10:58 snw 10/26 10:11 Order name: CT Head C Spine snw 10/26 10:14 Order name: Chest Single View XRAY; Complete Time: 11:03 snw 10/26 10:16 Order name: Head C Spine Mpr Wo Con; Complete Time: 11:03 EDMS 10/26 15:49 Order name: CONS Physician Consult EDMS 10/26 15:49 Order name: CONS Physician Consult EDMS 10/26 15:49 Order name: Full Liquid EDMS 10/26 15:49 Order name: Basic Metabolic Panel EDMS 10/26 16:42 Order name: Glucose, Ancillary Testing; Complete Time: 16:43 EDMS EC:49 Rate is 76 beats/min. Rhythm is regular. QRS [place] is Normal. IA interval is normal. QRS snw interval is normal. QT interval is normal. Clinical impression: Normal ECG. Administered Medications: 11:00 Drug: NS 0.9% 500 ml Volume: 500 ml; Route: IV; Rate: 1 bolus; Site: right antecubital; iw 11:15 Drug: NS 0.9% 1000 ml Route: IV; Rate: 75 ml/hr; Site: right antecubital; iw 11:45 Drug: NS 0.9% 500 ml Route: IV; Rate: bolus; Site: right antecubital; iw 14:04 CANCELLED (Physician Discretion): NS 0.9% with KCl 40 mEq/L 1000 ml IV at 80 ml/hr snw continuous 14:30 Drug: Potassium Effervescent Tablet 50 mEq Route: PO; iw 14:30 Drug: Potassium Chloride 20 mEq Route: IV; Rate: calculated rate; Site: right iw antecubital; 17:06 Drug: Potassium Chloride 20 mEq Route: IV; Rate: calculated rate; Site: right iw antecubital; Disposition: 12:42 Co-signature as Attending Physician, Shiva TENA was immediately available onsite ms3 in the emergency department for consultation in the care of the patient. Disposition Summary: 10/26/22 13:34 Hospitalization Ordered Hospitalization Status: Inpatient Admission snw Provider: Juan Luis Nugent Location: Intensive Care Unit snw Condition: Stable snw Problem: an acute exacerbation snw Symptoms: have worsened snw Bed/Room Type: Standard snw Room Assignment: 3-(10/26/22 16:54) bd Diagnosis - Hypo-osmolality and hyponatremia snw - Diastolic (congestive) heart failure snw - Chronic kidney disease, stage 4 (severe) snw Forms: - Medication Reconciliation Form snw - SBAR form snw Signatures: Dispatcher [employer] EDMS Kacy Rod bd Amber Dyer, GRADE FOREMAN-C GRADE FOREMAN-Csnw Alana Boyer, RN RN iw Shiva Lind, DO ms3 Keyonna Grijalva RN RN jh5 Corrections: (The following items were deleted from the chart) 10:17 09:51 EKG - Nurse/Tech ordered. snw iw 10: 09:44 BASIC METABOLIC PANEL+C.LAB.BRZ ordered. EDMS EDMS 10: 09:44 CBC+H.LAB.BRZ ordered. EDMS EDMS 10: 09:44 Troponin High Sensitivity+C.LAB.BRZ ordered. EDMS EDMS 14:04 14:03 NS 0.9% with KCl 40 mEq/L 1000 ml IV at 80 ml/hr continuous ordered. snw snw 16:54 13:34 snw bd
[2022-10-26 13:41] LABS: SARS-CoV-2 Antigen Rapid Res Negative (Negative)
[2022-10-26 14:02] LABS: Potassium 2.9 mmol/L (3.5-5.1)
[2022-10-26] MEDS ORDERED: KCL 20 MEQ/100 mL IVPB 100 ML IV ONE ×2 (14:20→16:57)
[2022-10-26] MEDS ORDERED: POTASSIUM CL SA 10 MEQ TAB PO ONE (14:20)
--- NOTE | 2022-10-26 14:34 | EKG ---
Test Date: 2022-10-26 Test Time: 10:20:58 Brewery Pumper: RYLAN MEASUREMENT RESULTS: Intervals: Rate: 76 DE: 138 QRSD: 90 QT: 412 QTc: 463 [place]: P: 74 DE: 138 QRS: 24 T: 68 INTERPRETIVE STATEMENTS: Normal sinus rhythm Normal ECG Compared to ECG 10/07/2022 08:33:07 ST (T wave) deviation no longer present Possible ischemia no longer present Electronically Signed On 10-26-22 14:33:18 TICKET BROKER by Jaxson Grover
[2022-10-26] MEDS ORDERED: PROMETHAZINE 25 MG/SUPP PR PRN (15:36)
[2022-10-26] MEDS: INSULIN -REGULAR HUMAN 50 UNIT/0.5 ML ML SQ SCH ×2 (16:30→20:07)
[2022-10-26] MEDS: NA CHLORIDE 0.9% 1,000 ML IV SCH (17:10)
[2022-10-26 18:32] LABS: Potassium 3.6 mmol/L (3.5-5.1)
[2022-10-26] MEDS: ATORVASTATIN 40 MG TAB PO SCH (20:06)
[2022-10-26] MEDS: CALCIUM CARB 500MG/VIT D 200 IU TAB PO SCH (20:06)
[2022-10-26 20:49] LABS: Specific Gravity 1.005 (1.005-1.030); Urine Bacteria <20 /HPF (<20); Urine Bilirubin NEGATIVE (Negative); Urine Blood Negative (Negative); Urine Clarity Clear (Clear); Urine Color Colorless (Yellow); Urine Glucose NEGATIVE (Negative); Urine Protein TRACE (Negative); Urine RBC <5 /HPF (None Seen); Urine Urobilinogen Normal (Normal)
[2022-10-26 21:02] LABS: Potassium 3.9 mmol/L (3.5-5.1); Uric Acid 13.9 mg/dL (2.6-6.0)
[2022-10-26 22:08] VITALS: BMI 34.7
[2022-10-27 01:56] LABS: Absolute Lymphocytes (CBC) 1.2 K/uL (0.7-4.9); Lymphocytes % 18.5 % (15.3-44.8); MCV 92.5 fL (80-100); MPV 10.6 fL (7.6-11.3)
[2022-10-27 02:05] LABS: Magnesium 2.2 mg/dL (1.6-2.4); Phosphorus 3.7 mg/dL (2.5-4.9)
[2022-10-27] MEDS: NA CHLORIDE 0.9% 1,000 ML IV SCH ×4 (04:04→20:13)
--- NOTE | 2022-10-27 07:04 | HP ---
Date of Admission: 10/26/2022 Chief Complaint: Abnormal blood test, nausea, vomiting. History Of Present Illness: This is a 67-year-old very pleasant female patient, who has multiple com orbidities, recently has been in hospital couple of times, with diastolic heart failure and renal juvenal lure and hyponatremia problem. During her last hospital admission, she was treated aggressively with diuretic therapy and Nephrology and Cardiology consultation was obtained. The patient responded tiffanie y well to diuretic therapy and she was discharged to go home on Lasix 80 mg twice a day, metolazone 2 .5 mg daily, and spironolactone 25 mg daily, and she was doing very well on this combination of treat ment while she was in the hospital and in fact that is what provided her clinical improvement during her last hospital stay. After she went home, I saw her at office for followup and outpatient labs do ne over a week ago showed creatinine went up from her baseline around 1.5 to 2 range up to 3.1 and so dium level had dropped down to 125 or so, so at that time we discontinued her metolazone, spironolact one, and reduced her Lasix from 80 mg b.i.d. to 40 mg b.i.d., and patient was instructed to get repea t blood work done in 1 week, which was done on 10/25/2022, and that blood work showed sodium level 114 with creatinine 4.1, and early this morning patient was contacted with this abnormal labs a nd she was instructed to come to emergency room. The patient also reported that for last 2 days, she has stopped taking her Lasix completely because she was having nausea and vomiting. After I talked to her, details were discussed with her ER provider and the patient was evaluated in the emergency ro om and admitted to the hospital to ICU with Nephrology and Cardiology consultation. I have discussed details with schedule checker, Dr. Momin. Allergies: TO SULFA, CAUSING SHORTNESS OF BREATH. Medications: Aspirin 81 mg daily, atorvastatin 40 mg daily at bedtime, famotidine 40 mg daily at bed time, fluticasone nasal spray 1 spray each nostril 2 times a day, Azelastine nasal spray 1 spray each nostril 2 times a day, Zofran 4 mg 4 times a day as needed for nausea and vomiting. She uses insuli n pump for her diabetes management. She uses eyedrops for her glaucoma. Other medication includes C altrate plus D, 1 tablet 2 times a day. Review of Systems: GI: As mentioned above. All other systems reviewed and negative. Past Medical History: Significant for glaucoma, diabetic retinopathy, type 1 diabetes mellitus diagn osed at age 8 years in 1963, hypertension, hyperlipidemia, peripheral vascular disease, probable [place]ary artery disease, chronic kidney disease. Past Surgical History: Cataract surgery, vitrectomy, and hysterectomy. Family History: Father had cancer of esophagus and diabetes and mother had heart disease. Social History: Negative for smoking and alcohol use. Physical Examination: Vital Signs: When she first came to emergency room, temperature 98.6, pulse 78, respiratory rate 16, blood pressure 98/44, oxygen saturation 100%, height 4 feet 8 inches, weight 155 pounds. General: Awake, alert, oriented, not in distress. HEENT: Head atraumatic, normocephalic. Conjunctivae nonerythematous. Sclerae white. Mouth, no thr ush or edema noted. Ears/Nose, no mass, lesion, discharge noted. Neck: Supple. No JVD, lymph nodes, bruit, thyromegaly noted. Lungs: Bilateral good equal air entry. Clear to auscultation. No rhonchi. No rales. Heart: Normal heart sounds, no murmur or gallop. Abdomen: Soft, bowel sounds normal. No guarding, rigidity, tenderness, mass, hepatosplenomegaly, dis tention, or bruit noted. Extremities: No leg edema. No calf tenderness. Skin: No rash, ulcer, cellulitis. Lymphatics: No lymph node enlargement in neck, supraclavicular, infraclavicular region. Neuro: No focal neurological deficit. Chest: Unremarkable. External Genitalia: Deferred. Rectal: Deferred. Laboratory Data: White count 8.2, hemoglobin 11, platelets 454. COVID-19 test negative. Sodium 112 , potassium 3, chloride 70, bicarb 30, BUN 82, creatinine 3.97, glucose 218. Liver function tests un remarkable. Serum osmolality 272, and urine osmolality 207. Urine sodium 25. TSH 2.6. Troponin 34 .4. BNP 9522. Chest x-ray, no acute cardiopulmonary changes. CAT scan of the head and cervical spi ne no acute intracranial or cervical spine changes. CAT scan of the abdomen and pelvis was unremarka ble except 2 lesions in the liver, 3.4 cm and 2.4 cm, unchanged from the prior CAT scan, which was ab out 2 weeks ago and during last hospital stay, we also did a liver ultrasound for further evaluation of this abnormal liver lesion. Definite etiology of this liver lesion is unknown, but as per radiolo gist report, a more aggressive process cannot be ruled out. Impression: 1.Acute kidney injury. 2.Volume depletion. 3.Hyponatremia. 4.Hypokalemia. 5.Anemia due to chronic kidney disease. 6.Probable coronary artery disease. 7.Chronic diastolic heart failure. 8.Hypertension. 9.Hyperlipidemia. 10.Peripheral vascular disease. 11.Type 1 diabetes mellitus. Plan: We will go ahead and admit the patient to hospital for further evaluation and management of th is problem. The patient is appropriate for inpatient and is [facility]. Nephrology and Cardiology consultation will be requested. Details were discussed with Dr. Jazmín an. Her echocardiogram was done during her past admission, so no need to repeat another echocardiogra m. She has diastolic dysfunction and mitral regurgitation and will continue to follow with cardiolog ist for further recommendation. At this time, there is no evidence of any congestive heart failure o n clinical exam and on basis of current lab finding, it appears that she is more volume depleted than anything else at this point. Nephrology consultation is appreciated and hammer mill operator is managing he r hyponatremia and volume status. She is currently getting IV fluid and we will continue to monitor electrolytes and renal function closely. She does not seem to have any difficulty breathing at all. No evidence of leg swelling, but at some point, if she shows any signs or symptoms of congestive hea rt failure, then we will have to initiate diuretic therapy at that time. Her liver lesion will need to be evaluated on an elective outpatient basis, but at this time, we will keep her in ICU. I will s ee her tomorrow morning for followup. Details were discussed with the patient's , who was at bedside. We will continue her symptomatic treatment for nausea. Continue famotidine per order and c ontinue her statin therapy. For diabetes, we will continue her insulin pump that she is using. GURJIT/MODL Voice ID: [id number]
[2022-10-27] MEDS: INSULIN -REGULAR HUMAN 50 UNIT/0.5 ML ML SQ SCH ×4 (07:30→20:14)
[2022-10-27] MEDS ORDERED: ACETAMINOPHEN 500 MG TAB PO PRN (07:30)
[2022-10-27 08:33] LABS: Potassium 3.7 mmol/L (3.5-5.1)
[2022-10-27] MEDS: ASPIRIN EC 81 MG TAB PO SCH (08:57)
[2022-10-27] MEDS: FAMOTIDINE 20 MG TAB PO SCH (08:57)
[2022-10-27] MEDS: HEPARIN 5000 UNIT/ML 1 ML VIAL SQ SCH ×2 (08:57→20:14)
[2022-10-27] MEDS ORDERED: AMLODIPINE 10 MG TAB PO SCH (09:00)
[2022-10-27] MEDS ORDERED: FUROSEMIDE 40 MG TABLET PO SCH (09:00)
[2022-10-27] MEDS: CALCIUM CARB 500MG/VIT D 200 IU TAB PO SCH ×2 (09:35→20:18)
[2022-10-27] MEDS ORDERED: POTASSIUM CL SA 10 MEQ TAB PO ONE (11:09)
--- NOTE | 2022-10-27 12:45 | CON ---
Date of Consultation: 10/27/2022 Reason For Consultation: Acute kidney injury, hyponatremia. 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 The patient recently admitted to the hospital, was released from the hospital almost 2 weeks ago. At that time, the patient was discharged on Lasix 80 mg b.i.d., spironolactone, and metolazone 2.5 daily. The patient was doing very well, discharged with good kidney function, good sodium. Her admission was also for hyponatremia and acute kidney injury with anasarca. Her hyponatremia was secondary to dilutional secondary to cardiorenal syndrome, also her acute kidney injury. The patient released from the hospital on that regimen, was doing very well, but apparently the patient started feeling sick gradually, followed up with Dr. Nugent at that time because of elevation in BUN and creatinine, and hyponatremia. Her Lasix has been decreased to 40 b.i.d. Metolazone and spironolactone were discontinued. The patient advised to follow up in 1 week. Repeated chemistry showed worsening kidney function, creatinine up to 4.1, and her sodium down to 114. For that reason, the patient was called to be admitted to the hospital. Since this Tuesday because she started feeling sick with nausea and vomiting, she stopped also the Lasix completely. The patient mentioned that she had been intentionally drinking plenty of water more than 64 ounces daily. The patient denied any diarrhea. Denied taking any nonsteroidal. No other changes in her medication. The patient denied any shortness of breath. Denied any chest pain. Denied any orthopnea. Denies any leg swelling. Over the night, the patient when arrived to the hospital; sodium 112, creatinine was elevated up to 3.9 with GFR down to the 12. The patient was started on IV hydration of the normal saline at 100 per hour. Over the last 22 hours, the patient's sodium nelson to 123, which is 11 point and creatinine dropped to 3, GFR of 17. The patient still feeling well. No shortness of breath. Past Medical History: Includes; 1. Diabetes complicated with neuropathy, retinopathy, and nephropathy. 2. Chronic kidney disease, stage 3B/4, proteinuric, nonnephrotic, normal size kidney, secondary to diabetes nephropathy and cardiorenal syndrome. 3. Hypertension. 4. Hyperlipidemia. 5. Glaucoma. 6. CAD complicated with congestive heart failure, diastolic dysfunction with preserved ejection fraction. Has echocardiogram in September 2022. 7. Pulmonary hypertension, severe. 8. Hypertension. 9. Hyperlipidemia. Past Surgical History: Includes cataract vitrectomy, hysterectomy. Family History: Positive for cancer, diabetes. Social History: Denied smoking, denied drinking, denied drugs abuse. Allergies: TO SULFA. Home Medications: Include aspirin, atorvastatin, Pepcid, Flonase, Zofran. As I mentioned, spironolactone and metolazone were discontinued 1 week ago. Lasix was decreased to 40 mg b.i.d., then was stopped since Tuesday. Review of Systems: Head and Neck: No red eye. No ear pain. Has headache. GI: Has nausea, vomiting, poor intake. : No polyuria. No dysuria. No hematuria. Glue Machine Operator: No vaginal discharge. Respiratory: No shortness of breath. Cardiovascular: No orthopnea. No leg swelling. Endocrine: No polydipsia. Skin: No rash. Neuro: Has neuropathy. Musculoskeletal: Generalized fatigue. Physical Examination: Vital Signs: Upon admission to the hospital; blood pressure was down to 98, currently blood pressure 134/43, pulse of 81, afebrile. The patient had good urine output of 800. Chest: Clear to auscultation. Heart: S1, S2. Systolic murmur. Abdomen: Soft, nontender. Extremity: No edema. Neurologic: Alert, oriented x3. No focal. No tremor. Laboratory Data: Yesterday upon admission to the hospital at 10 o'clock in the morning; sodium 112, potassium 3, bicarb 30, BUN 82, creatinine 3.9, GFR of 12. Latest lab data at 8 o'clock; sodium 123, potassium 3.7, bicarb 28, BUN 68, creatinine 3, GFR of 17, calcium 8.2, phosphorus 3.7, uric acid 13.5, PTH before was 176. Urinalysis yesterday; specific gravity 1.015, currently specific gravity 1.005, sodium 29, and potassium of 10. Current Medications: The patient on include aspirin, promethazine, calcium carbonate, atorvastatin, Pepcid, insulin, normal saline at 100 per hour. Assessment And Plan: 1. Hyponatremia, depletional secondary to over diuresis, superimposed with polydipsia. Has appropriate correction since yesterday. Over the last 24 hours, the patient nelson around 11 point, which is appropriate correction. I am going to go ahead and decrease IV fluid to 50 per hour. I had long discussion with the patient in the presence of the about fluid restriction to decrease to maximum between 25 to 30 ounces daily. The patient verbalized understanding. We will follow up. I agree with holding the diuresis for the time being and we will follow up the patient. I am going to go ahead and repeat lab in 6 hours including sodium serum and UA with urine sodium and potassium. We will continue fluid restriction and I's and O's for the patient. 2. Hypertension, currently hypotension. Because it was depleted, we will hold all diuresis for the time being. We will monitor the patient closely. 3. Hypokalemia. I will supplement. 4. Acute kidney injury on advanced chronic kidney disease, mostly secondary to prerenal, over diuresis secondary to the use of the diuretic, superimposed with poor intake. Currently, the patient looked to me still on the dry side given the history of diastolic congestive heart failure. I am going to go ahead and keep holding the diuresis. We will decrease IV fluid to 50 and we will continue to monitor the patient cautiously. 5. Hypotension/shock secondary to hypovolemic shock. As I mentioned above, we decreased IV fluid. Currently blood pressure stabilized. Keep holding blood pressure medications holding diuresis, decrease IV fluid to 50 per hour and we will monitor. 6. Diabetes as by primary. 7. Secondary hyperparathyroidism, stable. No need for vitamin D analog, calcitriol for the time being. 8. Congestive heart failure, currently the patient on the normal to dry side. Hold diuresis. Thank you, Dr. Nugent for allowing us to participate in the care of your patient. Time spent examining the patient [id number], reviewing data, discussing the case with the patient, reviewing lab and radiology, discussing the case with the steam clothes press operator including nursing staff, discussing the case with hospitalist more than 65 minutes. KENDY Voice ID: [id number] Report ID: [id number] ADITHYA
[2022-10-27 18:09] LABS: Specific Gravity < 1.005 (1.005-1.030); Urine Bacteria <20 /HPF (<20); Urine Bilirubin NEGATIVE (Negative); Urine Blood Negative (Negative); Urine Clarity Clear (Clear); Urine Color Colorless (Yellow); Urine Glucose 1+ (Negative); Urine Protein TRACE (Negative); Urine RBC <5 /HPF (None Seen); Urine Urobilinogen Normal (Normal)
[2022-10-27 18:10] LABS: Potassium 4.1 mmol/L (3.5-5.1)
[2022-10-27] MEDS: ATORVASTATIN 40 MG TAB PO SCH (20:14)
[2022-10-28 05:28] LABS: Albumin 2.6 g/dL (3.4-5.0); Phosphorus 2.7 mg/dL (2.5-4.9); Potassium 4.1 mmol/L (3.5-5.1); Uric Acid 11.6 mg/dL (2.6-6.0)
[2022-10-28] MEDS: NA CHLORIDE 0.9% 1,000 ML IV SCH (06:46)
[2022-10-28] MEDS: INSULIN -REGULAR HUMAN 50 UNIT/0.5 ML ML SQ SCH ×4 (07:30→21:59)
[2022-10-28] MEDS: CALCIUM CARB 500MG/VIT D 200 IU TAB PO SCH (08:10)
[2022-10-28] MEDS: FAMOTIDINE 20 MG TAB PO SCH (08:10)
[2022-10-28] MEDS: HEPARIN 5000 UNIT/ML 1 ML VIAL SQ SCH ×2 (08:11→21:56)
[2022-10-28] MEDS: ASPIRIN EC 81 MG TAB PO SCH (08:11)
--- NOTE | 2022-10-28 10:28 | PN ---
Date of Progress Note: 10/27/2022 Subjective: The patient was seen this morning for followup. No new complaints or problems reported. No shortness of breath. Objective: Vital Signs: Reviewed. HEENT: Unremarkable. Lungs: Clear to auscultation. Heart: Sounds normal. Abdomen: Soft. Bowel sounds normal. No guarding, rigidity, tenderness, distention. Extremities: No leg edema. Laboratory Data: White count 6.4, hemoglobin 8.3, platelets 347. Sodium 119, potassium 4, chloride 85, bicarb 26, BUN 73, creatinine 3.11, glucose 278. Impression: 1.Acute kidney injury. 2.Volume depletion. 3.Chronic diastolic heart failure. 4.Mitral regurgitation. 5.Hypertension. 6.Diabetes mellitus, type 1. 7.Anemia due to chronic kidney disease. Plan: We will go ahead and continue IV fluid, continue to monitor electrolyte and renal function, an d talent development manager is managing volume status as well as the patient's renal function as well as electroly nelson. We will continue to follow with anchor tacker. I will see her tomorrow for followup and the pat iegenaro does not have any signs or symptoms of any congestive heart failure at this time. Continue to manage diabetes with insulin p ump that she is using. GURJIT/MODL Voice ID: [id number] Report ID: [id number]
--- NOTE | 2022-10-28 13:16 | PN ---
Date of Progress Note: 10/28/2022 Subjective: The patient doing better, more awake, eating well. No nausea. No vomiting. The patient was admitted with acute kidney injury. The patient denied any nausea, any vomiting. Admitted with acute kidney injury and hyponatremia, recovered. The patient follows up with her fluid restriction. Physical Examination: Vital Signs: Blood pressure 107/54, pulse of 85. The patient had good urine output of 3900. The patient negative of 900. The patient doing well. Chest: Clear to auscultation. Heart: S1, S2. Regular. Abdomen: Soft, nontender. Extremities: No edema. Neurologic: Alert. No focality. Laboratory Data: Hemoglobin 8.3. Sodium 131, potassium 4.1, bicarb 26, BUN 54, creatinine 2.4, GFR of 21, uric acid still elevated at 11.6, calcium 8.9, phosphorus 2.7, magnesium of 2, albumin 2.6. Corrected calcium is 10.1. Current Medications: The patient on include aspirin, promethazine, atorvastatin, calcium carbonate with vitamin D, Pepcid, IV fluid of normal saline at 75 per hour, KCl. Assessment And Plan: 1. Acute kidney injury secondary to prerenal, over diurese. Continued to recover, looked to me normal volume. I am going to go ahead and discontinue IV fluid to avoid any for further worsening volume status and we will watch the patient in the next 24 hours to evaluate the patient. Continue fluid restriction of 30 ounce a day. I am going to go ahead and repeat the urine electrolyte to evaluate the sodium clearance again for the patient as the patient is still polyuric with diluted urine up to yesterday. We will follow up. 2. Hypertension, controlled, optimal. Continue current medication. Keep holding diuresis for the time being. 3. Congestive heart failure, currently normal volume. I am going to keep holding the diuresis. 4. Hypokalemia, status post supplement, resolved. 5. Acute kidney injury secondary to prerenal, on advanced chronic kidney disease secondary to diabetes nephropathy. The patient currently normal volume, as above discontinue IV fluid. 6. Hypotension with shock secondary to hypovolemic shock, recovered. Time spent examining the patient [id number], placing orders, reviewing data, lab and radiology, discussing the case with the patient and by bedside, discussing the case with the java development team lead including ICU, nursing and hospitalist more than 35 minutes. KENDY Voice ID: [id number] Report ID: [id number] ADITHYA
[2022-10-28 13:19] LABS: Potassium 4.4 mmol/L (3.5-5.1)
[2022-10-28 14:08] LABS: Specific Gravity 1.009 (1.005-1.030); Transitional Epithelial <5 /HPF (None Seen); Urine Bacteria <20 /HPF (<20); Urine Bilirubin NEGATIVE (Negative); Urine Blood Negative (Negative); Urine Clarity Clear (Clear); Urine Color Light-Yellow (Yellow); Urine Glucose 2+ (Negative); Urine Mucus Slight /HPF (None Seen); Urine Protein 1+ (Negative); Urine Urobilinogen Normal (Normal); Urine pH 5.5 (5.0-7.0)
[2022-10-28] MEDS: ATORVASTATIN 40 MG TAB PO SCH (21:59)
[2022-10-29 05:32] LABS: Albumin 2.7 g/dL (3.4-5.0); Magnesium 1.9 mg/dL (1.6-2.4); Phosphorus 3.2 mg/dL (2.5-4.9); Potassium 4.2 mmol/L (3.5-5.1)
[2022-10-29] MEDS: INSULIN -REGULAR HUMAN 50 UNIT/0.5 ML ML SQ SCH (07:25)
[2022-10-29] MEDS: ASPIRIN EC 81 MG TAB PO SCH (07:59)
[2022-10-29] MEDS: HEPARIN 5000 UNIT/ML 1 ML VIAL SQ SCH (07:59)
[2022-10-29] MEDS: FAMOTIDINE 20 MG TAB PO SCH (07:59)
--- NOTE | 2022-10-29 08:15 | RAD REPORT ---
EXAM DESCRIPTION: Corey Single View10/29/2022 8:09 am CLINICAL HISTORY: COPD COMPARISON: October 26, 2022 FINDINGS: The lungs appear clear of acute infiltrate. The heart is normal size IMPRESSION: No acute abnormalities displayed
[2022-10-29 09:58] VITALS: O2SAT 97
[2022-10-29 11:44] VITALS: BP 128/57; TEMP 97.3
--- NOTE | 2022-10-29 18:16 | PN ---
Date of Progress Note: 10/28/2022 Subjective: The patient was seen this morning for followup. She was lying in bed on room air, not u sing any oxygen and maintaining oxygen saturation around 99%. Denies any chest pain or shortness of breath. Nausea is better. Overall, she feels better. Intake, output records reviewed. Objective: Vital Signs: Reviewed. HEENT: Unremarkable. Lungs: Clear to auscultation. No wheezing. No rales. Heart: Sounds normal. Abdomen: Soft. Bowel sounds normal. No guarding, rigidity, tenderness, distention. Extremities: No leg edema. Laboratory Data: Sodium 131, potassium 4.1, chloride 101, bicarb 26, BUN 54, creatinine 2.44, glucos e 177. Impression: 1.Acute kidney injury. 2.Chronic diastolic heart failure. 3.Diabetes mellitus, insulin dependent. 4.Hyponatremia. 5.Acute kidney injury. Plan: The patient's renal function has improved very well. Hyponatremia also has improved. Overall , she is feeling much better. So far, there has not been any signs of volume overload or congestive heart failure and she has responded well to IV fluid. We will repeat another blood work this afterno on. Possible discharge to go home either later today or tomorrow. Currently, she is getting IV flui d at 75 cc/hour. Details and plan of treatment discussed with her. We will continue her diabetes management with her insulin pump. The patient does not require any antihy pertensive medication. GURJIT/MODL Voice ID: [id number] Report ID: [id number]
--- NOTE | 2022-10-31 08:34 | DS ---
Date of Discharge: 10/29/2022 Disposition: Discharged to go home. Physical Examination: HEENT: Unremarkable. Lungs: Clear to auscultation. No wheezing. No rales. Not in respiratory distress. Heart: Sounds normal. Abdomen: Soft. Bowel sounds normal. No guarding, rigidity, tenderness, distention. Extremities: No leg edema. Discharge Medications And Instructions: Take medications as below; 1.Atorvastatin 40 mg, take 1 tablet by mouth daily at bedtime. 2.Aspirin 81 mg, take 1 tablet by mouth daily with food. 3.Caltrate plus D, take 1 tablet by mouth 2 times a day. 4.Furosemide 40 mg, take 1 tablet by mouth daily as needed for shortness of breath or leg swelling. 5.Continue insulin pump and eye drops as prescribed by your specialist. 6.Fluticasone nasal spray, take 1 spray in each nostril 2 times a day as needed for nasal congestion . 7.Azelastine nasal spray, take 1 spray in each nostril 2 times a day as needed for nasal congestion. 8.Zofran 4 mg, take 1 tablet by mouth 4 times a day as needed for nausea. 9.Famotidine 40 mg, take 1 tablet by mouth daily at bedtime. 10.Do not take metolazone and spironolactone. 11.Come to Dr. Nugent's office next week on Tuesday for blood test. No need for fasting. 12.Follow up with Dr. Nugent during first week of November 2022. 13.Follow with Dr. Sierra next month as per your appointment. 14.Follow up with Dr. Momin in 1-2 weeks. Laboratory Data: Upon admission on 10/26/2022; white count was 8.2, hemoglobin 11, platelets 454. D ay after admission; white count 6.4, hemoglobin 8.3, platelets 347. Last chemistry today; sodium 136 , potassium 4.2, chloride 104, bicarb 26, BUN 50, creatinine 2.34, glucose 239. Upon admission; sodi um 112, potassium 3, chloride 70, bicarb 30, BUN 82, creatinine 3.97, glucose 218. Liver function te sts unremarkable. ProBNP 9522. Hospital Course: This is a 67-year-old female patient, who had abnormal blood test on outpatient bas is and she was advised to come to emergency room. Please see dictated H and P for more information. After the patient arrived into emergency room, further evaluation was done, blood test was repeated and the patient was admitted to intensive care unit with acute kidney injury, volume depletion, low s odium, low potassium. Nephrology and Cardiology consultation were requested. Movement Assembler started t he patient on IV fluid normal saline at 100 cc/hour and monitored her electrolytes and renal function closely and over a period of this hospitalization, the patient's condition improved. Yesterday, her IV fluid was discontinued and in the last 24 hours prior to discharge, she has not received any IV f luid. Her renal function has steadily improved during this hospitalization. Last time when she was discharged from the hospital, her creatinine was 1.8. She has not shown any signs symptoms of conges tive heart failure. Knowing how she behaved with her diuretic therapy after her last hospital discha rge, we will not give any diuretic therapy on a daily basis and the patient to use her furosemide onl y as needed for signs symptoms of either leg swelling or shortness of breath and all these details we re discussed with her. Final Diagnoses: 1.Acute kidney injury. 2.Volume depletion. 3.Hyponatremia. 4.Hypokalemia. 5.Anemia due to chronic kidney disease. 6.Probable coronary artery disease. 7.Chronic diastolic heart failure. 8.Hypertension. 9.Hyperlipidemia. 10.Peripheral vascular disease. 11.Type 1 diabetes mellitus. GURJIT/MODL Voice ID: [id number] Report ID: [id number]
[2022-11-01 03:06] LABS: HBsAG Nonreactive (Nonreactive)
== END 2022-10-29 11:45 | disposition home or self-care (01) | DRG 683 ==
LOC: ER 09:21 → ERHOLD 15:35 → 3RD-ICU 17:58
PROVIDERS: ADMIT Internal Medicine; ATTEND Internal Medicine
DX: N17.9 Acute kidney failure, unspecified (principal); E87.1 Hypo-osmolality and hyponatremia; I13.0 Hypertensive heart and chronic kidney disease with heart failure and stage 1 through stage 4 chronic kidney disease, or unspecified chronic kidney disease; I50.32 Chronic diastolic (congestive) heart failure; E10.51 Type 1 diabetes mellitus with diabetic peripheral angiopathy without gangrene; E10.319 Type 1 diabetes mellitus with unspecified diabetic retinopathy without macular edema; D63.1 Anemia in chronic kidney disease; E10.22 Type 1 diabetes mellitus with diabetic chronic kidney disease; N18.4 Chronic kidney disease, stage 4 (severe); E87.6 Hypokalemia; I25.10 Atherosclerotic heart disease of native coronary artery without angina pectoris; E78.5 Hyperlipidemia, unspecified; Z20.822 Contact with and (suspected) exposure to COVID-19
CPT/HCPCS: 36415; 51702; 70450; 71045; 72125; 74176; 80048; 80053; 80061; 80069; 80074; 80076; 81001; 81003; 82550; 82728; 82947; 83735; 83880; 83930; 83935; 84100; 84132; 84300; 84443; 84484; 84550; 85025; 85610; 85730; 87086; 87088; 87811; 93005; 96374; 99284; J1644; J3480; J7030; J7040

== ENCOUNTER 2022-11-05 12:55 | Inpatient (IN) | payer OTHER ==
--- OUTSIDE RECORDS SUMMARY | 2022-11-05 13:01 | XMS REPORT | Continuity of Care Document ---
:1955 Author Organization [facility] t Address [address] [place] [address] [address]. [address] [place] [address] Care Team Providers Name Role Phone IVONNE LOMELI Primary Care Physician Unavailable ALESSANDRO YEBOAH Attending Clinician Unavailable Alfonso ADEN, Alessandro Attending Clinician Doctor Unassigned, [place] Attending Clinician Unavailable Lan [facility]- Sylvester ONEILL Attending Clinician Elida ADEN, Paty Mitchell Attending Clinician Unavailable Payers Payer Name Policy Type Policy Number Effective Date Expiration Date S mercy MEDICARE PART A [id number] 2022 \\T\\ B 00:00:00 [employer] INDEMNITY [id number] 2022 00:00:00 BCBS [facility] - [id number] 2012 OUT OF STATE 00:00:00 Problems Condition Condition Condition Status Onset Resolution Last Treating Co mments Source Name Details Category Date Date Treatment Clinician Date Hypoglycem Hypoglycem Disease Active U nivers ia ia 9-28 ity of 00:00: [address] Vitamin D Vitamin D Disease Active Uni vers deficiency deficiency 2-20 it y of 00:00: [address] Insulin Insulin Disease Active 2015-11 Univers pump pump 2-05 ity [facility] Insulin Insulin Disease Active 2015-11 Univers pump pump 2-05 ity of status status 00:00: [place] 00 Medical Branch CKD CKD Disease Active 2015-11 Univers (chronic (chronic 2-05 ity of kidney kidney 00:00: [place] disease) disease) 00 Medica l stage 3, [...] Disease Active Overview: Un krishan mellitus mellitus 08-01 Formattin ity of with with 00:00: g of this [place] background background 00 note Me dical retinopath retinopath might be Branch y y different from the original. ICD10 Diagnosis Term Plumbing Service Technician Utility Type I Type I Disease Active [...] different from the original. ICD10 Diagnosis Term Plumbing Service Technician Utility Allergies, Adverse Reactions, Alerts Allergy Allergy Status Severity Reaction(s) Onset Inactive Treating Comm ents Source Name Type Date Date Clinician Codeine Propensi Active Nausea Only Un krishan ty to 9-18 ity of adverse 00:00: [place] reaction 00 Medical s Branch Sulfa Propensi Active Shortness of swelling Univers (Sulfona ty to Breath 18 ity of mide adverse 00:00: [place] Antibiot reaction 00 Medica l ics) s Branch CODEINE DRUG Active NAUSEA ONLY Univ ers INGREDI 9-18 ity of 00:00: [place] 00 Medical Branch SULFA Drug Active SOB 2008- Univers (SULFONA Class 9-18 ity of MIDE 00:00: [place] ANTIBIOT 00 Medical ICS) Branch Social History Social Habit Start Date Stop Date Quantity Comments Source Exposure to 2022-10-23 2022-11-02 Not sure [facility] SARS-CoV-2 00:00:00 12:53:00 [facility] (event) Branch Alcohol intake 2022-06-09 2022-06-09 Current University 00:00:00 00:00:00 non-drinker of [facility] alcohol (finding) Branch Tobacco use and 2022-06-09 2022-06-09 Smokeless tobacco Un iversity of exposure 00:00:00 00:00:00 non-user [facility] History of 1994-08-01 Cigarette Smoker Universi ty of tobacco use 00:00:00 [facility] Sex [birth year] Universit y of 00:00:00 00:00:00 [facility] Smoking Status Start Date Stop Date Source Ex-smoker 2022-06-09 00:00:00 2022-06-09 00:00:00 Universi ty of [facility] Medications Ordered Filled Start Stop Current Ordering Indication Dosage Frequency Signature Comments Components Source Medication Medication Date Date Medication? Clinician (SIG) Name Name insulin 2021-11 Yes [id number] 1{each} inject 1 Univers pump 2-20 Each under ity of cart,cont 00:00: [place] inf,RF 00 every 72 Medical (OMNIPOD (seventy-t Branc h CLASSIC wo) hours. PODS, GEN E10.65 3,) Crtg insulin 2021-11 Yes [id number] 1{each} inject 1 Univers pump 2-20 Each under ity of cart,cont 00:00: [place] inf,RF 00 every 72 Medical (OMNIPOD (seventy-t Branc h CLASSIC wo) hours. PODS, GEN E10.65 3,) Crtg TOUJEO 2021-11 Yes [id number] 16U inject 16 Un krishan SOLOSTAR 2-17 Units ity of U-300 00:00: under the [place] INSULIN 300 00 skin in Medic al unit/mL the Branch (1.5 mL) morning. InPn E10.65 insulin 2021-11 Yes [id number] Take Univer s aspart 2-17 novolog ity of U-100 00:00: 4-6 units [place] (NOVOLOG 00 before Medical FLEXPEN each meal Branch U-100 per INSULIN) sliding 100 unit/mL scale up (3 mL) to 20 injection units per day Insulin 2021-11 Yes [id number] Use as Univ ers [place], 2-17 directed 4 ity o f Disposable, 00:00: times a [place] as (BD FIORELLA Medic al 2ND GEN PEN Branch NEEDLE) 32 gauge x 5/32" Ndle flash 2021-11 Yes 1{each} Apply 1 Univer s glucose 2-17 Each to ity of sensor 00:00: skin every (FREESTYLE 00 14 Medical FABIENNE 2 (fourteen) Branch SENSOR) Kit days. Dx UJEO 2021-11 Yes [id number] 16U inject 16 Un krishan SOLOSTAR 2-17 Units ity of U-300 00:00: under the [place] INSULIN 300 00 skin in Medic al unit/mL the Branch (1.5 mL) morning. InPn insulin 2021-11 Yes [id number] Take Univer s aspart 2-17 novolog ity of U-100 00:00: 4-6 units [place] (NOVOLOG 00 before Medical FLEXPEN each meal Branch U-100 per INSULIN) sliding 100 unit/mL scale up (3 mL) to 20 injection units per day Insulin 2021-11 Yes [id number] Use as Univ ers [place], 2-17 directed 4 ity o f Disposable, 00:00: times a [place] as (BD FIORELLA Medic al 2ND GEN PEN Branch NEEDLE) 32 gauge x 5/32" Ndle flash 2021-11 Yes 1{each} Apply 1 Univer s glucose 2-17 Each to ity of sensor 00:00: skin every [place] (FREESTYLE 00 14 Medical FABIENNE 2 (fourteen) Branch SENSOR) Kit days. Dx [id number] 2021-11 Yes [id number] 16U inject 16 Un krishan SOLOSTAR 2-17 Units ity of U-300 00:00: under the [place] INSULIN 300 00 skin in Medic al unit/mL the Branch (1.5 mL) morning. InPn insulin 2021-11 Yes [id number] Take Univer s aspart 2-17 novolog ity of U-100 00:00: 4-6 units [place] (NOVOLOG 00 before Medical FLEXPEN each meal Branch U-100 per INSULIN) sliding 100 unit/mL scale up (3 mL) to 20 injection units per day Insulin 2021-11 Yes [id number] Use as Univ ers [place], 2-17 directed 4 ity o f Disposable, 00:00: times a [place] as (BD FIORELLA Medic al 2ND GEN PEN Branch NEEDLE) 32 gauge x 5/32" Ndle flash 2021-11 Yes 1{each} Apply 1 Univer s glucose 2-17 Each to ity of sensor 00:00: skin every (FREESTYLE 00 14 Medical FABIENNE 2 (fourteen) Branch SENSOR) Kit days. Dx E11 TOUJEO 2021-11 Yes [id number] 16U inject 16 Un krishan SOLOSTAR 2-17 Units ity of U-300 00:00: under the [place] INSULIN 300 00 skin in Medic al unit/mL the Branch (1.5 mL) morning. InPn insulin 2021-11 Yes [id number] Take Univer s aspart 2-17 novolog ity of U-100 00:00: 4-6 units [place] (NOVOLOG 00 before Medical FLEXPEN each meal Branch U-100 per INSULIN) sliding 100 unit/mL scale up (3 mL) to 20 injection units per day Insulin 2021-11 Yes [id number] Use as Univ ers [place], 2-17 directed 4 ity o f Disposable, 00:00: times a [place] (BD FIORELLA Medic al 2ND GEN PEN Branch NEEDLE) 32 gauge x 5/32" Ndle flash 2021-11 Yes 1{each} Apply 1 Univer s glucose 2-17 Each to ity of sensor 00:00: skin every [place] (FREESTYLE 00 14 Medical FABIENNE 2 (fourteen) Branch SENSOR) Kit days. Dx E11 insulin 2021-11 Yes [id number] USE IN Univ ers aspart 0-17 INSULIN ity of RAPID 00:00: PUMP, UP [place] (NOVOLOG 00 TO 50 Medical U-100 UNITS Branch INSULIN DAILY ASPART) 100 unit/mL injection insulin 2021-11 Yes [id number] USE IN Univ ers aspart 0-17 INSULIN ity of RAPID 00:00: PUMP, UP [place] (NOVOLOG 00 TO 50 Medical U-100 UNITS Branch INSULIN DAILY ASPART) 100 unit/mL injection insulin 2021-11 Yes [id number] USE IN Univ ers aspart 0-17 INSULIN ity of RAPID 00:00: PUMP, UP [place] (NOVOLOG 00 TO 50 Medical U-100 UNITS Branch INSULIN DAILY ASPART) 100 unit/mL injection insulin 2021-11 Yes [id number] USE IN Univ ers aspart 0-17 INSULIN ity of RAPID 00:00: PUMP, UP [place] (NOVOLOG 00 TO 50 Medical U-100 UNITS Branch INSULIN DAILY ASPART) 100 unit/mL injection insulin 2021-11 Yes [id number] USE IN Univ ers aspart 0-17 INSULIN ity of RAPID 00:00: PUMP, UP [place] (NOVOLOG 00 TO 50 Medical U-100 UNITS Branch INSULIN DAILY ASPART) 100 unit/mL injection insulin 2021-11 Yes [id number] USE IN Univ ers aspart 0-17 INSULIN ity of RAPID 00:00: PUMP, UP [place] (NOVOLOG 00 TO 50 Medical U-100 UNITS Branch INSULIN DAILY ASPART) 100 unit/mL injection insulin 2021-11 Yes [id number] USE IN Univ ers aspart 0-17 INSULIN ity of RAPID 00:00: PUMP, UP [place] (NOVOLOG 00 TO 50 Medical U-100 UNITS Branch INSULIN DAILY ASPART) 100 unit/mL injection insulin 2021-11 Yes [id number] USE IN Univ ers aspart 0-17 INSULIN ity of RAPID 00:00: PUMP, UP [place] (NOVOLOG 00 TO 50 Medical U-100 UNITS Branch INSULIN DAILY ASPART) 100 unit/mL injection insulin 2021-11 Yes [id number] USE IN Univ ers aspart 0-17 INSULIN ity of RAPID 00:00: PUMP, UP [place] (NOVOLOG 00 TO 50 Medical U-100 UNITS Branch INSULIN DAILY ASPART) 100 unit/mL injection insulin 2021-11 Yes [id number] USE IN Univ ers aspart 0-17 INSULIN ity of RAPID 00:00: PUMP, UP [place] (NOVOLOG 00 TO 50 Medical U-100 UNITS Branch INSULIN DAILY ASPART) 100 unit/mL injection insulin 2021-11 Yes [id number] USE IN Univ ers aspart 0-17 INSULIN ity of RAPID 00:00: PUMP, UP [place] (NOVOLOG 00 TO 50 Medical U-100 UNITS Branch INSULIN DAILY ASPART) 100 unit/mL injection insulin Yes 1{each} inject 1 Uni vers pump 8-10 Each under ity of cart,auto,B 00:00: [place] skin [place] T-cntr 00 SEE-INSTRU Medical (OMNIPOD 5 CTIONS. Branch G6 INTRO KIT, GEN 5,) Crtg insulin 0 Yes 1{each} inject 1 Uni vers pump 8-10 Each under ity of cart,automa 00:00: [place] merlene,BT 00 every 72 Medical (OMNIPOD 5 (seventy-t [facility] G6 POD, GEN wo) hours. 5,) Crtg insulin 2021-0 Yes 1{each} inject 1 Uni vers pump 8-10 Each under ity of cart,auto,B 00:00: the skin [place] T-cntr 00 SEE-INSTRU Medical (OMNIPOD 5 CTIONS. Branch G6 INTRO KIT, GEN 5,) Crtg insulin Yes 1{each} inject 1 Uni vers pump 8-10 Each under ity of cart,automa 00:00: the skin [place] merlene,BT 00 every 72 Medical (OMNIPOD 5 (seventy-t [facility] G6 POD, GEN wo) hours. 5,) Crtg [...] every 72 Medical (OMNIPOD 5 (seventy-t [facility] G6 POD, GEN wo) hours. 5,) Crtg insulin 2021-0 Yes 1{each} inject 1 Uni vers pump [...] every 72 Medical (OMNIPOD 5 (seventy-t [facility] G6 POD, GEN wo) hours. 5,) Crtg [...] every 72 Medical (OMNIPOD 5 (seventy-t [facility] G6 POD, GEN wo) hours. 5,) Crtg [...] every 72 Medical (OMNIPOD 5 (seventy-t [facility] G6 POD, GEN wo) hours. 5,) Crtg insulin Yes 1{each} inject 1 Uni vers pump 8-10 Each under ity of cart,auto,B 00:00: the skin [place] T-cntr 00 SEE-INSTRU Medical (OMNIPOD 5 CTIONS. Branch G6 INTRO KIT, GEN 5,) Crtg insulin 0 Yes 1{each} inject 1 Uni vers pump 8-10 Each under ity of cart,automa 00:00: the skin [place] merlene,BT 00 every 72 Medical (OMNIPOD 5 (seventy-t Bra nch G6 POD, GEN wo) hours. 5,) Crtg insulin 2021-0 Yes 1{each} inject 1 Uni vers pump 8-10 Each under ity of cart,auto,B 00:00: the skin [place] T-cntr 00 SEE-INSTRU Medical (OMNIPOD 5 CTIONS. Branch G6 INTRO KIT, GEN 5,) Crtg insulin 2021-0 Yes 1{each} inject 1 Uni vers pump 8-10 Each under ity of cart,automa 00:00: the skin [place] merlene,BT 00 every 72 Medical (OMNIPOD 5 (seventy-t Bra txh G6 POD, GEN wo) hours. 5,) Crtg insulin 2021- Yes 1{each} inject 1 Uni vers pump 8-10 Each under ity of cart,auto,B 00:00: the skin [place] T-cntr 00 SEE-INSTRU Medical (OMNIPOD 5 CTIONS. Branch G6 INTRO KIT, GEN 5,) Crtg insulin 2021-0 Yes 1{each} inject 1 Uni vers pump 8-10 Each under ity of cart,automa 00:00: the skin [place] merlene,BT 00 every 72 Medical (OMNIPOD 5 (seventy-t Bra txh G6 POD, GEN wo) hours. 5,) Crtg insulin 2021-0 Yes 1{each} inject 1 Uni vers pump 8-10 Each under ity of cart,auto,B 00:00: the skin [place] T-cntr 00 SEE-INSTRU Medical (OMNIPOD 5 CTIONS. Branch G6 INTRO KIT, GEN 5,) Crtg insulin 2021-0 Yes 1{each} inject 1 Uni vers pump 8-10 Each under ity of cart,automa 00:00: the skin [place] merlene,BT 00 every 72 Medical (OMNIPOD 5 (seventy-t Bra nch G6 POD, GEN wo) hours. 5,) Crtg insulin 0 Yes 1{each} inject 1 Uni vers pump [...] POD, GEN wo) hours. 5,) Crtg insulin 2021- No 1{each} inject 1 Un krishan pump 8-10 12-20 Each under ity of cart,auto,B 00:00: 00:00 [place] skin [place] T-cntr 00 :00 SEE-INSTRU Medical (OMNIPOD 5 CTIONS. Branch G6 INTRO KIT, GEN 5,) Crtg insulin 2021- No 1{each} inject 1 Un krishan pump 8-10 12-20 Each under ity of cart,automa 00:00: 00:00 [place] skin [place] merlene,BT 00 :00 every 72 Medical (OMNIPOD 5 (seventy-t Bra nch G6 POD, GEN wo) hours. 5,) Crtg insulin 2021- No 1{each} inject 1 Un krishan pump 8-10 12-20 Each under ity of cart,auto,B 00:00: 00:00 the skin [place] T-cntr 00 :00 SEE-INSTRU Medical (OMNIPOD 5 CTIONS. Branch G6 INTRO KIT, GEN 5,) Crtg insulin 2021- No 1{each} inject 1 Un krishan pump 8-10 12-20 Each under ity of cart,automa 00:00: 00:00 the skin [place] merlene,BT 00 :00 every 72 Medical (OMNIPOD 5 (seventy-t Bra nch G6 POD, GEN wo) hours. 5,) Crtg FREESTYLE 2021-0 Yes [id number] 1{each} Apply 1 Univers FABIENNE 2 7-27 Each to ity of SENSOR Kit 00:00: skin every [place] 00 14 Medical (fourteen) Branch days. Dx E11.65 FREESTYLE 2021-0 Yes [id number] 1{each} Apply 1 Univers FABIENNE 2 7-27 Each to ity of SENSOR Kit 00:00: skin every [place] 00 14 Medical (fourteen) Branch days. Dx E11.65 FREESTYLE 2022-0 Yes [id number] 1{each} Apply 1 Univers FABIENNE 2 7-27 Each to ity of SENSOR Kit 00:00: skin every [place] 00 14 Medical (fourteen) Branch days. Dx E11.65 FREESTYLE 2022-0 Yes [id number] 1{each} Apply 1 Univers FABIENNE 2 7-27 Each to ity of SENSOR Kit 00:00: skin every [place] 00 14 Medical (fourteen) Branch days. Dx E11.65 FREESTYLE 2022-0 Yes [id number] 1{each} Apply 1 Univers FABIENNE 2 7-27 Each to ity of SENSOR Kit 00:00: skin every [place] 00 14 Medical (fourteen) Branch days. Dx E11.65 FREESTYLE 2022-0 Yes [id number] 1{each} Apply 1 Univers FABIENNE 2 7-27 Each to ity of SENSOR Kit 00:00: skin every [place] 00 14 Medical (fourteen) Branch days. Dx E11.65 FREESTYLE 2022-0 Yes [id number] 1{each} Apply 1 Univers FABIENNE 2 7-27 Each to ity of SENSOR Kit 00:00: skin every [place] 00 14 Medical (fourteen) Branch days. Dx E11.65 FREESTYLE 2022-0 Yes [id number] 1{each} Apply 1 Univers FABIENNE 2 7-27 Each to ity of SENSOR Kit 00:00: skin every [place] 00 14 Medical (fourteen) Branch days. Dx E11.65 FREESTYLE 2022-0 Yes [id number] 1{each} Apply 1 Univers FABIENNE 2 7-27 Each to ity of SENSOR Kit 00:00: skin every [place] 00 14 Medical (fourteen) Branch days. Dx E11.65 FREESTYLE 2022-0 Yes [id number] 1{each} Apply 1 Univers FABIENNE 2 7-27 Each to ity of SENSOR Kit 00:00: skin every [place] 00 14 Medical (fourteen) Branch days. Dx E11.65 FREESTYLE 2022-0 2022- No [id number] 1{each} Apply 1 Univers FABIENNE 2 7-27 12-17 Each to ity of SENSOR Kit 00:00: 00:00 skin every [place] 00 :00 14 Medical (fourteen) Branch days. Dx E11.65 insulin Yes [id number] USE IN Univ ers aspart 4-26 INSULIN ity of RAPID 00:00: PUMP, UP [place] (NOVOLOG 00 TO 50 Medical U-100 UNITS Branch INSULIN DAILY ASPART) 100 unit/mL injection insulin Yes [id number] USE IN Univ ers aspart 4-26 INSULIN ity of RAPID 00:00: PUMP, UP [place] (NOVOLOG 00 TO 50 Medical U-100 UNITS Branch INSULIN DAILY ASPART) 100 unit/mL injection insulin Yes [id number] USE IN Univ ers aspart 4-26 INSULIN ity of RAPID 00:00: PUMP, UP [place] (NOVOLOG 00 TO 50 Medical U-100 UNITS Branch INSULIN DAILY ASPART) 100 unit/mL injection insulin Yes [id number] USE IN Univ ers aspart 4-26 INSULIN ity of RAPID 00:00: PUMP, UP [place] (NOVOLOG 00 TO 50 Medical U-100 UNITS Branch INSULIN DAILY ASPART) 100 unit/mL injection insulin 2021- No [id number] USE IN Uni vers aspart -08 09-17 INSULIN ity of RAPID 00:00: 00:00 PUMP, UP [place] (NOVOLOG 00 :00 TO 50 Medical U-100 UNITS Branch INSULIN DAILY ASPART) 100 unit/mL injection blood sugar 2020-11 Yes [id number] USE Univers diagnostic 2-07 DIRECTED ity o f (FREESTYLE 00:00: [place] TEST) strip [facility] Branch blood sugar 2020-11 Yes [id number] USE Univers diagnostic 2-07 DIRECTED ity o f (FREESTYLE 00:00: [place] TEST) strip [facility] Branch blood sugar 2020-11 Yes [id number] USE Univers diagnostic 2-07 DIRECTED ity o f (FREESTYLE 00:00: [place] TEST) strip Medical Branch blood sugar 2020-11 Yes [id number] USE Univers diagnostic 2-07 DIRECTED ity o f (FREESTYLE 00:00: [place] TEST) strip [facility] Branch blood sugar 2020-11 Yes [id number] USE Univers diagnostic 2-07 DIRECTED ity o f (FREESTYLE 00:00: [place] TEST) strip [facility] Branch blood sugar 2020-11 Yes [id number] USE Univers diagnostic 2-07 DIRECTED ity o f (FREESTYLE 00:00: [place] TEST) strip [facility] Branch blood sugar 2020-11 Yes [id number] USE Univers diagnostic 2-07 DIRECTED ity o f (FREESTYLE 00:00: [place] TEST) strip 00 Medical Branch blood sugar 2020-11 Yes [id number] USE Univers diagnostic 2-07 DIRECTED ity o f (FREESTYLE 00:00: [place] TEST) strip 00 Medical Branch blood sugar 2020-11 Yes [id number] USE Univers diagnostic 2-07 DIRECTED ity o f (FREESTYLE 00:00: [place] TEST) strip 00 Medical Branch blood sugar 2020-11 Yes [id number] USE Univers diagnostic 2-07 DIRECTED ity o f (FREESTYLE 00:00: [place] TEST) strip 00 Medical Branch blood sugar 2020-11 Yes [id number] USE Univers diagnostic 2-07 DIRECTED ity o f (FREESTYLE 00:00: [place] TEST) strip 00 Medical Branch blood sugar 2020-11 Yes [id number] USE Univers diagnostic 2-07 DIRECTED ity o f (FREESTYLE 00:00: [place] TEST) strip 00 Medical Branch blood sugar 2020-11 Yes [id number] USE Univers diagnostic 2-07 DIRECTED ity o f (FREESTYLE 00:00: [place] TEST) strip 00 Medical Branch blood sugar 2020-11 Yes [id number] USE Univers diagnostic 2-07 DIRECTED ity o f (FREESTYLE 00:00: [place] TEST) strip 00 Medical Branch blood sugar 2020-11 Yes [id number] USE Univers diagnostic 2-07 DIRECTED ity o f (FREESTYLE 00:00: [place] TEST) strip 00 Medical Branch blood sugar 2020-11 Yes [id number] USE Univers diagnostic 2-07 DIRECTED ity o f (FREESTYLE 00:00: [place] TEST) strip 00 Medical Branch Diclofenac Yes APPLY TO Uni vers Sodium 1 % 9-21 AFFECTED ity o f gel 00:00: JOINT [place] 00 THREE Medical TIMES A Branch DAY NEEDED Diclofenac Yes APPLY TO Uni vers Sodium 1 % 9-21 AFFECTED ity o f gel 00:00: JOINT [place] 00 THREE Medical TIMES A Branch DAY NEEDED Diclofenac Yes APPLY TO Uni vers Sodium 1 % 9-21 AFFECTED ity o f gel 00:00: JOINT [place] 00 THREE Medical TIMES A Branch DAY NEEDED Diclofenac Yes APPLY TO Uni vers Sodium 1 [...] TIMES A Branch DAY NEEDED Diclofenac 2020-0 2021- No APPLY TO Un krishan Sodium 1 % 9-21 12-20 AFFECTED ity of gel 00:00: 00:00 JOINT [place] 00 :00 THREE Medical TIMES A Branch DAY NEEDED Diclofenac 2020-0 2021- No APPLY TO Un krishan Sodium 1 % 9-21 12-20 AFFECTED ity of gel 00:00: 00:00 JOINT [place] 00 :00 THREE Medical TIMES A Branch DAY NEEDED carvediloL 2020-0 Yes 25mg Take 25 mg U nivers 25 mg 8-02 by mouth 2 ity of tablet 00:00: (two) [place] 00 times Medical daily. Branch carvediloL 2021-0 Yes 25mg Take 25 mg U nivers 25 mg 8-02 by mouth 2 ity of tablet 00:00: (two) [place] 00 times Medical daily. Branch carvediloL 2021-0 Yes 25mg Take 25 mg U nivers 25 mg 8-02 by mouth 2 ity of tablet 00:00: (two) [place] 00 times Medical daily. Branch carvediloL 2021-0 Yes 25mg Take 25 mg U nivers 25 mg 8-02 by mouth 2 ity of tablet 00:00: (two) [place] 00 times Medical daily. Branch carvediloL 2021-0 Yes 25mg Take 25 mg U nivers 25 mg 8-02 by mouth 2 ity of tablet 00:00: (two) [place] 00 times Medical daily. Branch carvediloL 2021-0 Yes 25mg Take 25 mg U nivers 25 mg 8-02 by mouth 2 ity of tablet 00:00: (two) [place] 00 times Medical daily. Branch carvediloL 2021-0 Yes 25mg Take 25 mg U nivers 25 mg 8-02 by mouth 2 ity of tablet 00:00: (two) [place] 00 times Medical daily. Branch carvediloL 2021-0 Yes 25mg Take 25 mg U nivers 25 mg 8-02 by mouth 2 ity of tablet 00:00: (two) [place] 00 times Medical daily. Branch carvediloL 2021-0 Yes 25mg Take 25 mg U nivers 25 mg 8-02 by mouth 2 ity of tablet 00:00: (two) [place] 00 times Medical daily. Branch carvediloL 2021-0 Yes 25mg Take 25 mg U nivers 25 mg 8-02 by mouth 2 ity of tablet 00:00: (two) [place] 00 times Medical daily. Branch carvediloL 2021-0 Yes 25mg Take 25 mg U nivers 25 mg 8-02 by mouth 2 ity of tablet 00:00: (two) [place] 00 times Medical daily. Branch carvediloL 2021-0 Yes 25mg Take 25 mg U nivers 25 mg 8-02 by mouth 2 ity of tablet 00:00: (two) [place] 00 times Medical daily. Branch carvediloL 1-0 Yes 25mg Take 25 mg U nivers 25 mg 8-02 by mouth 2 ity of tablet 00:00: (two) 00 times Medical daily. Branch carvediloL 2021-0 Yes 25mg Take 25 mg U nivers 25 mg 8-02 by mouth 2 ity of tablet 00:00: (two) 00 times Medical daily. Branch carvediloL 2021-0 Yes 25mg Take 25 mg U nivers 25 mg 8-02 by mouth 2 ity of tablet 00:00: (two) [place] 00 times Medical daily. Branch carvediloL 2021-0 Yes 25mg Take 25 mg U nivers 25 mg 8-02 by mouth 2 ity of tablet 00:00: (two) [place] 00 times Medical daily. Branch flash 0 Yes 1{each} 1 Each Univers glucose 6-02 SEE-INSTRU ity of scanning 00:00: CTIONS. [place] reader 00 Medical (FREESTYLE Branch FABIENNE 2 READER) Misc flash 2020- Yes 1{each} 1 Each Univers glucose 6-02 [...] (FREESTYLE Branch FABIENNE 2 READER) Misc flash Yes 1{each} 1 Each Univers glucose 6-02 SEE-INSTRU ity of scanning 00:00: CTIONS. [place] reader 00 Medical (FREESTYLE Branch FABIENNE 2 READER) Misc flash Yes 1{each} 1 Each Univers glucose 6-02 SEE-INSTRU ity of scanning 00:00: CTIONS. [place] reader 00 Medical (FREESTYLE Branch FABIENNE 2 READER) Misc flash Yes 1{each} 1 Each Univers glucose 6-02 SEE-INSTRU ity of scanning 00:00: CTIONS. [place] reader 00 Medical (FREESTYLE Branch FABIENNE 2 READER) Misc flash Yes 1{each} 1 Each Univers glucose 6-02 SEE-INSTRU ity of scanning 00:00: CTIONS. [place] reader 00 Medical (FREESTYLE Branch FABIENNE 2 READER) Misc flash Yes 1{each} 1 Each Univers glucose 6-02 SEE-INSTRU ity of scanning 00:00: CTIONS. [place] reader 00 Medical (FREESTYLE Branch FABIENNE 2 READER) Misc flash Yes 1{each} 1 Each Univers glucose 6-02 SEE-INSTRU ity of scanning 00:00: CTIONS. [place] reader 00 Medical (FREESTYLE Branch FABIENNE 2 READER) Misc flash Yes 1{each} 1 Each Univers glucose 6-02 SEE-INSTRU ity of scanning 00:00: CTIONS. [place] reader 00 Medical (FREESTYLE Branch FABIENNE 2 READER) Misc flash Yes 1{each} 1 Each Univers glucose 6-02 SEE-INSTRU ity of scanning 00:00: CTIONS. [place] reader 00 Medical (FREESTYLE Branch FABIENNE 2 READER) Misc flash Yes 1{each} 1 Each Univers glucose 6-02 SEE-INSTRU ity of scanning 00:00: CTIONS. [place] reader 00 Medical (FREESTYLE Branch FABIENNE 2 READER) Mis aspirin 81 2019-11 Yes 81mg Take 81 mg U nivers mg chewable 2-22 by mouth ity of tablet 11:48: daily. [place] 00 Medical Branch methazolami 2019-11 Yes 50mg Take [...] of tablet 11:48: daily. Medical Branch methazolami 2019- Yes 50mg Take 50 mg Univers de 2-22 by mouth ity of (NEPTAZANE) 11:48: daily. [place] 50 mg 00 Medical tablet Branch dorzolamide 2019-[address] krishan HCl 2-22 each eye. ity of (DORZOLAMID 11:48: E Medical OPHTHALMIC) Branch aspirin 81 2019-11 [...] of (DORZOLAMID 11:48: Medical OPHTHALMIC) Branch glucagon 2019-0 Yes [id number] 1mg 1 mg by U nivers (GLUCAGON 8-18 Intramuscu ity of EMERGENCY 00:00: lar route [place] KIT, 00 as needed Medical HUMAN,) 1 (hypoglyce Bran ch mg padma and injection unconsciou s). glucagon 2019-0 Yes [id number] 1mg 1 mg by U nivers (GLUCAGON 8-18 Intramuscu ity of EMERGENCY 00:00: lar route [place] KIT, 00 as needed Medical HUMAN,) 1 (hypoglyce Bran ch mg padma and injection unconsciou s). glucagon 2019-0 Yes [id number] 1mg 1 mg by U nivers (GLUCAGON 8-18 Intramuscu ity of EMERGENCY 00:00: lar route [place] KIT, 00 as needed Medical HUMAN,) 1 (hypoglyce Bran ch mg padma and injection unconsciou s). glucagon 2020-0 Yes [id number] 1mg 1 mg by U nivers (GLUCAGON 8-18 Intramuscu ity of EMERGENCY 00:00: lar route [place] as KIT, 00 as needed Medical HUMAN,) 1 (hypoglyce Bran ch mg padma and injection unconsciou s). glucagon 2020-0 Yes [id number] 1mg 1 mg by U nivers (GLUCAGON 8-18 Intramuscu ity of EMERGENCY 00:00: lar route [place] KIT, 00 as needed Medical HUMAN,) 1 (hypoglyce Bran ch mg padma and injection unconsciou s). glucagon 2020-0 Yes [id number] 1mg 1 mg by U nivers (GLUCAGON 8-18 Intramuscu ity of EMERGENCY 00:00: lar route [place] KIT, 00 as needed Medical HUMAN,) 1 (hypoglyce Bran ch mg padma and injection unconsciou s). glucagon 2020-0 Yes [id number] 1mg 1 mg by U nivers (GLUCAGON 8-18 Intramuscu ity of EMERGENCY 00:00: lar route [place] KIT, 00 as needed Medical HUMAN,) 1 (hypoglyce Bran ch mg padma and injection unconsciou s). glucagon 2020-0 Yes [id number] 1mg 1 mg by U nivers (GLUCAGON 8-18 Intramuscu ity of EMERGENCY 00:00: lar route [place] KIT, 00 as needed Medical HUMAN,) 1 (hypoglyce Bran ch mg padma and injection unconsciou s). glucagon 2020-0 Yes [id number] 1mg 1 mg by U nivers (GLUCAGON 8-18 Intramuscu ity of EMERGENCY 00:00: lar route [place] KIT, 00 as needed Medical HUMAN,) 1 (hypoglyce Bran ch mg padma and injection unconsciou s). glucagon 2020-0 Yes [id number] 1mg 1 mg by U nivers (GLUCAGON 8-18 Intramuscu ity of EMERGENCY 00:00: lar route [place] KIT, 00 as needed Medical HUMAN,) 1 (hypoglyce Bran ch mg padma and injection unconsciou s). glucagon 2020-0 Yes [id number] 1mg 1 mg by U nivers (GLUCAGON 8-18 Intramuscu ity of EMERGENCY 00:00: lar route [place] KIT, 00 as needed Medical HUMAN,) 1 (hypoglyce Bran ch mg padma and injection unconsciou s). glucagon 2020-0 Yes [id number] 1mg 1 mg by U nivers (GLUCAGON 8-18 Intramuscu ity of EMERGENCY 00:00: lar route [place] KIT, 00 as needed Medical HUMAN,) 1 (hypoglyce Bran ch mg padma and injection unconsciou s). glucagon 2020-0 Yes [id number] 1mg 1 mg by U nivers (GLUCAGON 8-18 Intramuscu ity of EMERGENCY 00:00: lar route [place] KIT, 00 as needed Medical HUMAN,) 1 (hypoglyce Bran ch mg padma and injection unconsciou s). glucagon 2020-0 Yes [id number] 1mg 1 mg by U nivers (GLUCAGON 8-18 Intramuscu ity of EMERGENCY 00:00: lar route [place] KIT, 00 as needed Medical HUMAN,) 1 (hypoglyce Bran ch mg padma and injection unconsciou s). glucagon 2020-0 Yes [id number] 1mg 1 mg by U nivers (GLUCAGON 8-18 Intramuscu ity of EMERGENCY 00:00: lar route [place] KIT, 00 as needed Medical HUMAN,) 1 (hypoglyce Bran ch mg padma and injection unconsciou s). glucagon 2020-0 Yes [id number] 1mg 1 mg by U nivers (GLUCAGON [...] drops 00 BEDTIME Medical Branch TRAVATAN Z 2018-0 Yes PUT 1 DROP U nivers 0.004 % 2-05 INTO BOTH it[place] of ophthalmic [place] [facility] Yes PUT 1 DROP U nivers 0.004 % 2-05 INTO BOTH ity of ophthalmic 00:[place] [facility] Yes PUT 1 DROP U nivers 0.004 % 2-05 INTO BOTH ity of ophthalmic 00:[place] [facility] Yes PUT 1 DROP U nivers 0.004 % 2-05 INTO BOTH ity of ophthalmic 00:[place] [facility] Yes PUT 1 DROP U nivers 0.004 % 2-05 INTO BOTH ity of ophthalmic 00:[place] [facility] Yes PUT 1 DROP U nivers 0.004 % 2-05 INTO BOTH ity of ophthalmic 00:00[place] 00 [facility] Yes PUT 1 DROP U nivers 0.004 % 2-05 INTO BOTH ity of ophthalmic 00:00[place] 00 [facility] Yes PUT 1 DROP U nivers 0.004 % 2-05 INTO BOTH ity of ophthalmic 00:00: [place] 00 [facility] Yes PUT 1 DROP U nivers 0.004 % 2-05 INTO BOTH ity of ophthalmic 00:00: [place] 00 [facility] Yes PUT 1 DROP U nivers 0.004 % 2-05 INTO BOTH ity of ophthalmic 00:00: [place] 00 [facility] Yes PUT 1 DROP U nivers 0.004 % 2-05 INTO BOTH ity of ophthalmic 00:00: [place] 00 [facility] Yes PUT 1 DROP U nivers 0.004 % 2-05 INTO BOTH ity of ophthalmic 00:00: [place] drops 00 [facility] Blood 2015-1 Yes Use as Univers Glucose 2-20 directed, ity of Control, 00:00: DX:E11.9 [facility] Medical (GLUCOSE Branch CONTROL) Soln Blood 2016- Yes Use as Univers Glucose 2-20 directed, ity of Control, 00:00: DX:E11.9 [facility] Medical (GLUCOSE Branch CONTROL) Soln Blood 2016- Yes Use as Univers Glucose 2-20 directed, ity of Control, 00:00: DX:E11.9 [facility] Medical (GLUCOSE Branch CONTROL) Soln Blood 2016- Yes Use as Univers Glucose 2-20 directed, ity of Control, 00:00: DX:E11.9 [facility] Medical (GLUCOSE Branch CONTROL) Soln Blood 2016- Yes Use as Univers Glucose 2-20 directed, ity of Control, 00:00: DX:E11.9 [facility] Medical (GLUCOSE Branch CONTROL) Soln Blood 2016- Yes Use as Univers Glucose 2-20 directed, ity of Control, 00:00: DX:E11.9 [facility] Medical (GLUCOSE Branch CONTROL) Soln Blood 2016- Yes Use as Univers Glucose 2-20 directed, ity of Control, 00:00: DX:E11.9 [facility] Medical (GLUCOSE Branch CONTROL) Soln Blood 2016- Yes Use as Univers Glucose 2-20 directed, ity of Control, 00:00: DX:E11.9 [facility] Medical (GLUCOSE Branch CONTROL) Soln Blood 2016- Yes Use as Univers Glucose 2-20 directed, ity of Control, 00:00: DX:E11.9 [facility] Medical (GLUCOSE Branch CONTROL) Soln Blood 2016- Yes Use as Univers Glucose 2-20 directed, ity of Control, 00:00: DX:E11.9 [facility] Medical (GLUCOSE Branch CONTROL) Soln Blood 2016- Yes Use as Univers Glucose 2-20 directed, ity of Control, 00:00: DX:E11.9 [facility] Medical (GLUCOSE Branch CONTROL) Soln Blood 2016- Yes Use as Univers Glucose 2-20 directed, ity of Control, 00:00: DX:E11.9 [facility] Medical (GLUCOSE Branch CONTROL) Soln Blood 2016- Yes Use as Univers Glucose 2-20 directed, ity of Control, 00:00: DX:E11.9 [facility] Medical (GLUCOSE Branch CONTROL) Soln Blood 2016- Yes Use as Univers Glucose 2-20 directed, ity of Control, 00:00: DX:E11.9 [place] Normal 00 Medical (GLUCOSE Branch CONTROL) [facility] Blood 2015-11 Yes Use as Univers Glucose 2-20 directed, ity of Control, 00:00: DX:E11.9 [place] Normal 00 Medical (GLUCOSE Branch CONTROL) [facility] Blood 2015-11 Yes Use as Univers Glucose 2-20 directed, ity of Control, 00:00: DX:E11.9 [place] Normal 00 Medical (GLUCOSE Branch CONTROL) [facility] atorvastati 2015-11 Yes [id number] 40mg Take 1 Univers n (LIPITOR) 2-05 tablet by ity of 40 mg 00:00: mouth at [place] tablet 00 bedtime. [facility] atorvastati 2015-11 Yes [id number] 40mg Take 1 Univers n (LIPITOR) 2-05 tablet by ity of 40 mg 00:00: mouth at [place] tablet 00 bedtime. [facility] atorvastati 2015-11 Yes [id number] 40mg Take 1 Univers n (LIPITOR) 2-05 tablet by ity of 40 mg 00:00: mouth at [place] tablet 00 bedtime. [facility] atorvasta 2015-11 Yes [id number] 40mg Take 1 Univers n (LIPITOR) 2-05 tablet by ity of 40 mg 00:00: mouth at [place] tablet 00 bedtime. [facility] atorvasta 2015-11 Yes [id number] 40mg Take 1 Univers n (LIPITOR) 2-05 tablet by ity of 40 mg 00:00: mouth at [place] tablet 00 bedtime. [facility] atorvastati 2015-11 Yes [id number] 40mg Take 1 Univers n (LIPITOR) 2-05 tablet by ity of 40 mg 00:00: mouth at [place] tablet 00 bedtime. [facility] atorvasta 2015-11 Yes [id number] 40mg Take 1 Univers n (LIPITOR) 2-05 tablet by ity of 40 mg 00:00: mouth at [place] tablet 00 bedtime. [facility] atorvasta 2015-11 Yes [id number] 40mg Take 1 Univers n (LIPITOR) 2-05 tablet by ity of 40 mg 00:00: mouth at [place] tablet 00 bedtime. [facility] atorvastati 2015-11 Yes [id number] 40mg Take 1 Univers n (LIPITOR) 2-05 tablet by ity of 40 mg 00:00: mouth at [place] tablet 00 bedtime. Medical Branch atorvastati 2015-11 Yes [id number] 40mg Take 1 Univers n (LIPITOR) 2-05 tablet by ity of 40 mg 00:00: mouth at [place] tablet 00 bedtime. Medical Branch atorvastati 2015-11 Yes [id number] 40mg Take 1 Univers n (LIPITOR) 2-05 tablet by ity of 40 mg 00:00: mouth at [place] tablet 00 bedtime. Medical Branch atorvastati 2015-11 Yes [id number] 40mg Take 1 Univers n (LIPITOR) 2-05 tablet by ity of 40 mg 00:00: mouth at [place] tablet 00 bedtime. Medical Branch atorvastati 2015-11 Yes [id number] 40mg Take 1 Univers n (LIPITOR) 2-05 tablet by ity of 40 mg 00:00: mouth at [place] tablet 00 bedtime. Medical Branch atorvastati 2015-11 Yes [id number] 40mg Take 1 Univers n (LIPITOR) 2-05 tablet by ity of 40 mg 00:00: mouth at [place] tablet 00 bedtime. Medical Branch atorvastati 2015-11 Yes [id number] 40mg Take 1 Univers n (LIPITOR) 2-05 tablet by ity of 40 mg 00:00: mouth at [place] tablet 00 bedtime. Medical Branch atorvastati 2015-11 Yes [id number] 40mg Take 1 Univers n (LIPITOR) 2-05 tablet by ity of 40 mg 00:00: mouth at [place] tablet 00 bedtime. Medical Branch amLODIPine 2015-11 Yes [id number] 10mg Take 1 U nivers (NORVASC) 0-26 tablet by ity o f 10 mg 00:00: mouth [place] tablet 00 daily. Medical Branch amLODIPine 2015-11 Yes [id number] 10mg Take 1 U nivers (NORVASC) 0-26 tablet by ity o f 10 mg 00:00: mouth [place] tablet 00 daily. Medical Branch amLODIPine 2015-11 Yes [id number] 10mg Take 1 U nivers (NORVASC) 0-26 tablet by ity o f 10 mg 00:00: mouth [place] tablet 00 daily. Medical Branch amLODIPine 2015-11 Yes [id number] 10mg Take 1 U nivers (NORVASC) 0-26 tablet by ity o f 10 mg 00:00: mouth [place] tablet 00 daily. Medical Branch amLODIPine 2015-11 Yes [id number] 10mg Take 1 U nivers (NORVASC) 0-26 tablet by ity o f 10 mg 00:00: mouth [place] tablet 00 daily. Medical Branch amLODIPine 2015-11 Yes [id number] 10mg Take 1 U nivers (NORVASC) 0-26 tablet by ity o f 10 mg 00:00: mouth [place] tablet 00 daily. Medical Branch amLODIPine 2015-11 Yes [id number] 10mg Take 1 U nivers (NORVASC) 0-26 tablet by ity o f 10 mg 00:00: mouth [place] tablet 00 daily. Medical Branch amLODIPine 2015-11 Yes [id number] 10mg Take 1 U nivers (NORVASC) 0-26 tablet by ity o f 10 mg 00:00: mouth [place] tablet 00 daily. Medical Branch amLODIPine 2015-11 Yes [id number] 10mg Take 1 U nivers (NORVASC) 0-26 tablet by ity o f 10 mg 00:00: mouth [place] tablet 00 daily. Medical Branch amLODIPine 2015-11 Yes [id number] 10mg Take 1 U nivers (NORVASC) 0-26 tablet by ity o f 10 mg 00:00: mouth [place] tablet 00 daily. Medical Branch amLODIPine 2015-11 Yes [id number] 10mg Take 1 U nivers (NORVASC) 0-26 tablet by ity o f 10 mg 00:00: mouth [place] tablet 00 daily. Medical Branch amLODIPine 2015-11 Yes [id number] 10mg Take 1 U nivers (NORVASC) 0-26 tablet by ity o f 10 mg 00:00: mouth [place] tablet 00 daily. Medical Branch amLODIPine 2015-11 Yes [id number] 10mg Take 1 U nivers (NORVASC) 0-26 tablet by ity o f 10 mg 00:00: mouth [place] tablet 00 daily. Medical Branch amLODIPine 2015-11 Yes [id number] 10mg Take 1 U nivers (NORVASC) 0-26 tablet by ity o f 10 mg 00:00: mouth [place] tablet 00 daily. Medical Branch amLODIPine 2015-11- No [id number] 10mg Take 1 Univers (NORVASC) 0-26 12-20 tablet by ity of 10 mg 00:00: 00:00 mouth [place] tablet 00 :00 daily. Medical Branch amLODIPine 2015-11- No [id number] 10mg Take 1 Univers (NORVASC) 0-26 12-20 tablet by ity of 10 mg 00:00: 00:00 mouth [place] tablet 00 :00 daily. Medical Branch lisinopril 2015-0 Yes [id number] 20mg Take 1 U nivers (PRINIVIL,Z 9-07 tablet by ity of ESTRIL) 20 00:00: mouth [place] mg tablet 00 daily. Medical Branch lisinopril 0 Yes [id number] 20mg Take 1 U nivers (PRINIVIL,Z 9-07 tablet by ity of ESTRIL) 20 00:00: mouth [place] mg tablet 00 daily. Medical Branch lisinopril Yes [id number] 20mg Take 1 U nivers (PRINIVIL,Z 9-07 tablet by ity of ESTRIL) 20 00:00: mouth [place] mg tablet 00 daily. Medical Branch lisinopril Yes [id number] 20mg Take 1 U nivers (PRINIVIL,Z 9-07 tablet by ity of ESTRIL) 20 00:00: mouth [place] mg tablet 00 daily. Medical Branch lisinopril Yes [id number] 20mg Take 1 U nivers (PRINIVIL,Z 9-07 tablet by ity of ESTRIL) 20 00:00: mouth [place] mg tablet 00 daily. Medical Branch lisinopril 2015- Yes [id number] 20mg Take 1 U nivers (PRINIVIL,Z 9-07 tablet by ity of ESTRIL) 20 00:00: mouth [place] mg tablet 00 daily. Medical Branch lisinopril 0 Yes [id number] 20mg Take 1 U nivers (PRINIVIL,Z 9-07 tablet by ity of ESTRIL) 20 00:00: mouth [place] mg tablet 00 daily. Medical Branch lisinopril 2015-0 Yes [id number] 20mg Take 1 U nivers (PRINIVIL,Z 9-07 tablet by ity of ESTRIL) 20 00:00: mouth [place] mg tablet 00 daily. Medical Branch lisinopril 2015-0 Yes [id number] 20mg Take 1 U nivers (PRINIVIL,Z 9-07 tablet by ity of ESTRIL) 20 00:00: mouth [place] mg tablet 00 daily. [facility] lisinopril Yes [id number] 20mg Take 1 U nivers (PRINIVIL,Z 9-07 tablet by ity of ESTRIL) 20 00:00: mouth [place] mg tablet 00 daily. [facility] lisinopril Yes [id number] 20mg Take 1 U nivers (PRINIVIL,Z 9-07 tablet by ity of ESTRIL) 20 00:00: mouth [place] mg tablet 00 daily. [facility] lisinopril Yes [id number] 20mg Take 1 U nivers (PRINIVIL,Z 9-07 tablet by ity of ESTRIL) 20 00:00: mouth [place] mg tablet 00 daily. [facility] lisinopril Yes [id number] 20mg Take 1 U nivers (PRINIVIL,Z 9-07 tablet by ity of ESTRIL) 20 00:00: mouth [place] mg tablet 00 daily. [facility] lisinopril Yes [id number] 20mg Take 1 U nivers (PRINIVIL,Z 9-07 tablet by ity of ESTRIL) 20 00:00: mouth [place] mg tablet 00 daily. [facility] lisinopril 2022- No [id number] 20mg Take 1 Univers (PRINIVIL,Z 9-07 12-20 tablet by it y of ESTRIL) 20 00:00: 00:00 mouth [place] mg tablet 00 :00 daily. [facility] lisinopril 2022- No [id number] 20mg Take 1 Univers (PRINIVIL,Z 9-07 12-20 tablet by it y of ESTRIL) 20 00:00: 00:00 mouth [place] mg tablet 00 :00 daily. [facility] DIABETIC Yes use 5-6 Univer s SUPPLIES, 3-01 times ity of MISCELLAN. 00:00: daily as [place] as IN VITRO 00 directed. [facility]ica l [facility] DIABETIC Yes use 5-6 Univer s SUPPLIES, 3-01 times ity of MISCELLAN. 00:00: daily as [place] as IN VITRO 00 directed. [facility]ica l [facility] DIABETIC Yes use 5-6 Univer s SUPPLIES, 3-01 times ity of MISCELLAN. 00:00: daily as [place] as IN VITRO 00 directed. [facility] DIABETIC Yes use 5-6 Univer s SUPPLIES, 3-01 times ity of MISCELLAN. 00:00: daily as [place] as IN VITRO 00 directed. Medica l [facility] DIABETIC Yes use 5-6 Univer s SUPPLIES, 3-01 times ity of MISCELLAN. 00:00: daily as [place] as IN VITRO 00 [facility]. [facility] Univer s SUPPLIES, 3-01 times ity of MISCELLAN. 00:00: daily as [place] as IN VITRO 00 [facility]. [facility] use [facility]-6 Univer s SUPPLIES, 3-01 times ity of MISCELLAN. 00:00: daily as [place] as IN VITRO 00 [facility]. [facility] use 5-6 Univer s SUPPLIES, 3-01 times ity of MISCELLAN. 00:00: daily as [place] as IN VITRO 00 directed. [facility] DIABETIC Yes use 5-6 Univer s SUPPLIES, 3-01 times ity of MISCELLAN. 00:00: daily as [place] as IN VITRO 00 [facility]. [facility] use [facility]-6 Univer s SUPPLIES, 3-01 times ity of MISCELLAN. 00:00: daily as [place] as IN VITRO 00 directed. [facility] DIABETIC Yes use 5-6 Univer s SUPPLIES, 3-01 times ity of MISCELLAN. 00:00: daily as [place] as IN VITRO 00 [facility]. [facility] use 5-6 Univer s SUPPLIES, 3-01 times ity of MISCELLAN. 00:00: daily as [place] as IN VITRO 00 directed. [facility] DIABETIC Yes use 5-6 Univer s SUPPLIES, 3-01 times ity of MISCELLAN. 00:00: daily as [place] as IN VITRO 00 directed. [facility] DIABETIC Yes use 5-6 Univer s SUPPLIES, 3-01 times ity of MISCELLAN. 00:00: daily as [place] as IN VITRO 00 [facility]. [facility] use 5-6 Univer s SUPPLIES, 3-01 times ity of MISCELLAN. 00:00: daily as [place] as IN VITRO 00 directed. [facility] DIABETIC 2010-0 Yes use 5-6 Univer s SUPPLIES, 3-01 times ity of MISCELLAN. 00:00: daily as [place] as IN VITRO 00 directed. [facility] Immunizations Ordered Filled Immunization Date Status Comments [facility] e Immunization Name Name SARS-COV-2 COVID-19 [...] Unive rsity of MODERNA VACCINE 00:00:00 [place] [facility] ical Branch SARS-COV-2 COVID-19 2021-01-17 Completed Unive rsity of MODERNA 12+ YRS 00:00:00 [place] Med ical VACCINE Branch SARS-COV-2 COVID-19 2021-01-17 Completed Unive rsity of MODERNA 12+ YRS 00:00:00 [place] Med ical VACCINE Branch SARS-COV-2 COVID-19 2021-01-17 Completed Unive rsity of MODERNA 12+ YRS 00:00:00 [place] Med ical VACCINE Branch SARS-COV-2 COVID-19 2021-01-17 Completed Unive rsity of MODERNA 12+ YRS 00:00:00 [place] Med ical VACCINE Branch SARS-COV-2 COVID-19 2021-01-17 Completed Unive rsity of MODERNA 12+ YRS 00:00:00 [place] Med ical VACCINE Branch SARS-COV-2 COVID-19 2021-01-17 Completed Unive rsity of MODERNA 12+ YRS 00:00:00 [place] Med ical VACCINE Branch SARS-COV-2 COVID-19 2021-01-17 Completed Unive rsity of MODERNA 12+ YRS 00:00:00 [place] Med ical VACCINE Branch SARS-COV-2 COVID-19 2021-01-17 Completed Unive rsity of MODERNA 12+ YRS 00:00:00 [place] Med ical VACCINE Branch SARS-COV-2 COVID-19 2021-01-17 Completed Unive rsity of MODERNA 12+ YRS 00:00:00 [place] Med ical VACCINE Branch SARS-COV-2 COVID-19 2021-01-17 Completed Unive rsity of MODERNA 12+ YRS 00:00:00 [place] Med ical VACCINE Branch SARS-COV-2 COVID-19 2021-01-17 Completed Unive rsity of MODERNA 12+ YRS 00:00:00 [place] Med ical VACCINE Branch SARS-COV-2 COVID-19 2020-12-20 Completed Unive rsity of MODERNA VACCINE 00:00:00 [place] [facility] ical Branch SARS-COV-2 COVID-19 2020-12-20 Completed Unive rsity of MODERNA VACCINE 00:00:00 [place] [facility] ical Branch SARS-COV-2 COVID-19 2020-12-20 Completed Unive rsity of MODERNA VACCINE 00:00:00 [place] [facility] ical Branch SARS-COV-2 COVID-19 2020-12-20 Completed Unive rsity of MODERNA VACCINE 00:00:00 [place] [facility] ical Branch SARS-COV-2 COVID-19 2020-12-20 Completed Unive rsity of MODERNA VACCINE 00:00:00 [place] [facility] ical Branch SARS-COV-2 COVID-19 2020-12-20 Completed Unive rsity of MODERNA 12+ YRS 00:00:00 [place] Med ical VACCINE Branch SARS-COV-2 COVID-19 2020-12-20 Completed Unive rsity of MODERNA 12+ YRS 00:00:00 [place] Med ical VACCINE Branch SARS-COV-2 COVID-19 2020-12-20 Completed Unive rsity of MODERNA 12+ YRS 00:00:00 [place] Med ical VACCINE Branch SARS-COV-2 COVID-19 2020-12-20 Completed Unive rsity of MODERNA 12+ YRS 00:00:00 [place] Med ical VACCINE Branch SARS-COV-2 COVID-19 2020-12-20 Completed Unive rsity of MODERNA 12+ YRS 00:00:00 [place] Med ical VACCINE Branch SARS-COV-2 COVID-19 2020-12-20 Completed Unive rsity of MODERNA 12+ YRS 00:00:00 [place] Med ical VACCINE Branch SARS-COV-2 COVID-19 2020-12-20 Completed Unive rsity of MODERNA 12+ YRS 00:00:00 [place] Med ical VACCINE Branch SARS-COV-2 COVID-19 2020-12-20 Completed Unive rsity of MODERNA 12+ YRS 00:00:00 [place] Med ical VACCINE Branch SARS-COV-2 COVID-19 2020-12-20 Completed Unive rsity of MODERNA 12+ YRS 00:00:00 [place] Med ical VACCINE Branch SARS-COV-2 COVID-19 2020-12-20 Completed Unive rsity of MODERNA 12+ YRS 00:00:00 [place] Med ical VACCINE Branch SARS-COV-2 COVID-19 2020-12-20 Completed Unive rsity of MODERNA 12+ YRS 00:00:00 [place] [facility] ical VACCINE Branch Influenza Virus 2020-07-02 Completed Universit y of Vaccine Quad .5 mL 00:00:00 [place] [facility] IM 6+ MO Branch Influenza Virus 2020-07-02 Completed Universit y of Vaccine Quad .5 mL 00:00:00 [place] [facility] IM 6+ MO Branch Influenza Virus 2020-07-02 Completed Universit y of Vaccine Quad .5 mL 00:00:00 [place] [facility] IM 6+ MO Branch Influenza Virus 2020-07-02 Completed Universit y of Vaccine Quad .5 mL 00:00:00 [place] [facility] IM 6+ MO Branch Influenza Virus 2020-07-02 Completed Universit y of Vaccine Quad .5 mL 00:00:00 [place] [facility] IM 6+ MO Branch Influenza Virus 2020-07-02 Completed Universit y of Vaccine Quad .5 mL 00:00:00 [place] [facility] IM 6+ MO Branch Influenza Virus 2020-07-02 Completed Universit y of Vaccine Quad .5 mL 00:00:00 [place] [facility] IM 6+ MO Branch Influenza Virus 2020-07-02 Completed Universit y of Vaccine [place] .5 mL 00:00:00 [place] [facility] IM 6+ MO Branch Influenza Virus 2020-07-02 Completed Universit y of Vaccine Quad .5 mL 00:00:00 [place] [facility] IM 6+ MO Branch Influenza Virus 2020-07-02 Completed Universit y of Vaccine Quad .5 mL 00:00:00 [place] [facility] IM 6+ MO Branch Influenza Virus 2020-07-02 Completed Universit y of Vaccine Quad .5 mL 00:00:00 [place] [facility] IM 6+ MO Branch Influenza Virus 2020-07-02 Completed Universit y of Vaccine Quad .5 mL 00:00:00 [place] [facility] IM 6+ MO Branch Influenza Virus 2020-07-02 Completed Universit y of Vaccine [facility] .5 mL 00:00:00 [place] [facility] IM 6+ MO Branch Influenza Virus 2020-07-02 Completed Universit y of Vaccine [facility] .5 mL 00:00:00 [place] [facility] IM 6+ MO Branch Influenza Virus 2020-07-02 Completed Universit y of Vaccine Quad .5 mL 00:00:00 [place] [facility] IM 6+ MO Branch Influenza Virus 2020-07-02 Completed Universit y of Vaccine Quad .5 mL 00:00:00 [facility] IM 6+ MO Branch Vital Signs Vital Name Observation Time Observation Value Comments Source Systolic blood 2022-11-02 19:17:00 92 mm[Hg] [facility] pressure [facility] Diastolic blood 2022-11-02 19:17:00 62 mm[Hg] [facility] pressure [facility] Heart rate 2022-11-02 19:17:00 87 /min [facility] Body height 2022-11-02 19:17:00 142.2 cm [facility] Body weight 2022-11-02 19:17:00 71.215 kg [facility] BMI 2022-11-02 19:17:00 35.20 kg/m2 [facility] Oxygen saturation 2022-11-02 19:17:00 96 /min [facility] in Arterial blood Medical Br anch by Pulse oximetry Procedures Procedure Date / Time Performing Clinician Source Performed POCT HEMOGLOBIN A1C TEST 2022-11-02 19:22:00 Alessandro Yeboah Uni [facility] [place] [facility] INSURANCE CORRESPONDENCE 2022-06-24 05:01:00 Doctor Unassigned, [facility] SCANNED LAB RESULTS 2022-04-05 05:01:00 Doctor Unasukhdeep [facility] Name [facility] [place] SCANNED LAB RESULTS 2022-03-04 05:01:00 Doctor UnassignedEnid [facility] Encounters Start End Encounter Admission Attending Care Care Encounter Source Date/Time Date/Time Type Type Clinicians Facility Department ID 2022-11-02 2022-11-02 Outpatient R ALFONSO IDRAJI [facility] [id number] Univers 13:30:00 14:17:35 WENTMULLIKEN ity of [facility] 2022-11-02 2022-11-02 Office Alfonso [facility] [id number] Univers 13:30:00 14:17:35 Visit [facility] [employer] [id number] it y of [place] [id number] [place] as NICOLAS?BLEA [phone] [address] MEDICAL OFFICE BUILDING 2022-10-30 2022-10-30 Patient Alfonso [facility] [id number] Univers 00:00:00 00:00:00 Secure [facility] [id number] ity of [place] [id number] [place] as NICOLAS?BLEA [phone] [address] MEDICAL OFFICE BUILDING 2022-10-30 2022-10-30 Patient Alfonso [facility] [id number] Univers 00:00:00 00:00:00 Secure [facility] [id number] ity of [place] [id number] [place] as NICOLAS?BLEA [id number] [address] MEDICAL OFFICE BUILDING 2022-10-30 2022-10-30 Refill Alfonso [facility] [id number] Univers 00:00:00 00:00:00 [facility] [employer] 350.1.13.10 it y of [place] 4.2.7.2.686 Pablo as NICOLAS?BLEA [phone] [address] MEDICAL OFFICE BUILDING 2022-10-28 2022-10-28 Patient Alfonso [facility] 1.2.840.114 [id number] Univers 00:00:00 00:00:00 Secure [facility] 350.1.13.10 ity of [place] 4.2.7.2.686 Pablo as NICOLAS?BLEA [phone] Ia janie ARMSTRONG [address] MEDICAL OFFICE BUILDING 2022-10-15 2022-10-15 Telephone Yeboah, [facility] 1.2.018.880 [id number] Univers 00:00:00 00:00:00 [employer] 350.1.13.10 it y of [place] 4.2.7.2.686 Pablo as NICOLAS?BLEA [phone] Ia janie ARMSTRONG [address] MEDICAL OFFICE [facility] 2022-09-09 2022-09-09 Telephone Yeboah, [facility] 1.2.230.454 [id number] Univers 00:00:00 00:00:00 [employer] 350.1.13.10 it y of [place] 4.2.7.2.686 Pablo as NICOLAS?BLEA [phone] Ia janie ARMSTRONG [address] [facility] OFFICE [facility] 2022-08-29 2022-08-29 Refill Yeboah, [facility] 1.2.840.114 [id number] Univers 00:00:00 00:00:00 [employer] 350.1.13.10 it y of [place] 4.2.7.2.686 Pablo as NICOLAS?BLEA [phone] [facility] [address] [facility] OFFICE [facility] 2022-07-08 2022-07-08 Patient Yeboah, [facility] 1.2.840.114 [id number] Univers 00:00:00 00:00:00 Secure Msg RUSBASEong MULTISPEC 350.1.13.10 ity [facility] [place].2.[place].2.[place] [phone] [facility] AND ALVARADO [address] [facility] 2022-06-24 2022-06-24 Orders Doctor BRAYDEN 1.2.840.114 [id number] Univers 00:00:00 00:00:00 Only Unassigned, CIERRA 350.1.13.[address] [place] [facility] 4.2.7.2.686 Pablo as [phone] [facility] [address] 2022-06-23 2022-06-23 Patient Yeboah, [facility] 1.2.840.114 [id number] Univers 00:00:00 00:00:00 Secure Msg Wentong MULTISPEC 350.1.13.10 [place] [phone] [facility] [place] [address] [facility] 2022-06-09 2022-06-09 Outpatient R [facility] [id number] Univers 09:30:00 10:46:39 [facility] ity [facility] 2022-06-09 2022-06-09 Office [facility] 1.2.840.114 [id number] Univers 09:30:00 10:46:39 Visit [facility] 350.1.13.10 it y of [place] 4.2.7.2.686 Pablo as NICOLAS?BLEA [phone] [address] OFFICE [facility] 2022-06-09 2022-06-09 [facility] [id number] Univers 09:30:00 09:30:00 [facility] ity [facility] 2022-06-09 2022-06-09 Orders Doctor OWEN 1.2.840.114 [id number] Univers 00:00:00 00:00:00 Only Unassigned, CIERRA 350.1.13.[address] [place] [facility] 4.2.7.2.686 Pablo as [phone] [address] 2022-04-22 2022-04-22 Telephone [facility] 1.2.865.679 [id number] Univers 00:00:00 00:00:00 [facility] 350.1.13.10 it y of [place] 4.2.7.2.686 Pablo as NICOLAS?BLEA [phone] [address] MEDICAL OFFICE [facility] 2022-04-16 2022-04-16 Telephone [facility] 1.2.177.856 [id number] Univers 00:00:00 00:00:00 [facility] 350.1.13.10 it y of [place] 4.2.7.2.686 Pablo as NICOLAS?BLEA [phone] [address] MEDICAL OFFICE BUILDING 2022-04-05 2022-04-05 Orders Doctor OWEN 1.2.840.114 [id number] Univers 00:00:00 00:00:00 Only Unassigned, CIERRA 350.1.13.[address] [place] [facility] 4.2.7.2.686 Pablo as [phone] [place] [address] [address] 2022-03-29 2022-03-29 Patient Yeboah, [facility] 1.2.840.114 [id number] Univers 00:00:00 00:00:00 Secure Msg Wentong MULTISPEC 350.1.13.10 [place].2.[place] [phone] [address] [facility] 2022-03-29 2022-03-29 Telephone Yeboah, [facility] 1.2.843.707 [id number] Univers 00:00:00 00:00:00 [facility] HEALTH 350.1.13.10 [facility] 4.2.7.2.686 [place] as NICOLAS?BLEA [phone] [address] MEDICAL OFFICE BUILDING 2022-03-29 2022-03-29 Patient Yeboah, [facility] 1.2.840.114 [id number] Univers 00:00:00 00:00:00 Secure Msg [facility] MULTISPEC 350.1.13.10 [place] [phone] [address] [facility] 2022-03-16 2022-03-16 Telephone Yeboah, [facility] 1.2.108.738 [id number] Univers 00:00:00 00:00:00 [facility] HEALTH 350.1.13.10 it [facility] 4.2.7.2.686 [place] as NICOLAS?BLEA [phone] [address] MEDICAL OFFICE BUILDING 2022-03-09 2022-03-09 Refill Yeboah, [facility] 1.2.840.114 [id number] Univers 00:00:00 00:00:00 Wentong [place] 350.1.13.10 i ty of [place] 4.2.7.2.686 [place] PROF[place] [phone] [address] 2022-03-09 2022-03-09 Refill Yeboah, [facility] 1.2.840.114 [id number] Univers 00:00:00 00:00:00 Davidong [place] 350.1.13.10 i ty of [place] 4.2.7.2.686 [place] [phone] [address] 2022-03-09 2022-03-09 [facility] 1.2.840.114 [id number] Univers 00:00:00 00:00:00 [facility] 350.1.13.10 i ty [place] 4.2.7.2.[place] [phone] [address] 2022-03-09 2022-03-09 [facility] 1.2.840.114 [id number] Univers 00:00:00 00:00:00 Wentong [place] 350.1.13.10 i ty of [place] 4.2.7.2.[place] [phone] [address] 2022-03-04 2022-03-04 Orders Doctor BRAYDEN 1.2.840.114 [id number] Univers 00:00:00 00:00:00 Only Unassigned, CIERRA 350.1.13.10 [place] of [place] [facility] 4.2.7.2.686 Pablo as [phone] [address] 2021-12-22 2021-12-22 Outpatient R ALFONSO [facility] [id number] Univers 12:00:00 13:18:36 [facility] 2021-12-22 2021-12-22 Office [facility] 1.2.840.114 [id number] Univers 12:00:00 13:18:36 Visit [facility] 350.1.13.10 it y of [place] 4.2.7.2.686 Pablo as NICOLAS?BLEA [phone] [address] 2021-12-22 2021-12-22 Orders Doctor BRAYDEN 1.2.840.114 [id number] Univers 00:00:00 00:00:00 Only Unassigned, CIERRA 350.1.13.10 [place] of [place] [facility] 4.2.7.2.686 Pablo as [phone] [facility] [address] 2021-10-20 2021-10-20 Refthierno Montenegro [facility] 1.2.840.114 [id number] Univers 00:00:00 00:00:00 Sylvesterrayray TORRES 350.1.13.10 ity of [facility] 4.2.7.2.686 [place] [phone] [facility] [place] [address] [facility] 2021-09-25 2021-09-25 Refthierno Yeboah [facility] 1.2.840.114 [id number] Univers 00:00:00 00:00:00 Alessandro [place] 350.1.13.10 i ty of [place] 4.2.7.2.686 [place] [phone] [address] 2021-09-25 2021-09-25 Refthierno Yeboah [facility] 1.2.840.114 [id number] Univers 00:00:00 00:00:00 [facility] 350.1.13.10 i ty of [place] 4.2.7.2.686 [place] [phone] [address] 2021-09-22 2021-09-22 Andria Yeboah [facility] 1.2.840.114 [id number] Univers 00:00:00 00:00:00 Alessandro [place] 350.1.13.10 i ty of [place] 4.2.7.2.686 [place] [phone] [address] 2021-08-11 2021-08-11 Outpatient R ALFONSO [facility] [id number] Univers 16:00:00 16:00:00 [facility] of [facility] 2021-08-11 2021-08-11 Office [facility] 1.2.840.114 [id number] Univers 12:47:49 14:19:45 Visit [facility] 350.1.13.10 it y of [place] 4.2.7.2.686 Pablo as Nicolas?Blea [phone] [address] Medical Office Building 2021-08-11 2021-08-11 Orders Doctor BRAYDEN 1.2.840.114 [id number] Univers 00:00:00 00:00:00 Only Unassigned, CIERRA 350.1.13.10 [place] of [place] [facility] 4.2.7.2.686 Pablo as [phone] [address] 2021-08-11 2021-08-11 Telephone [facility] 1.2.289.038 [id number] Univers 00:00:00 00:00:00 [facility] 350.1.13.10 it y of [place] 4.2.7.2.686 Pablo as Nicolas?Blea [phone] [address] Medical Office Building 2021-07-28 2021-07-28 Outpatient [facility] [id number] Univers 10:30:00 10:30:00 WENTONG ity of [facility] 2021-05-08 2021-05-08 Patient [facility] 1.2.840.114 [id number] Univers 00:00:00 00:00:00 [facility] 350.1.13.10 ity of [facility] 4.2.7.2.[place] [phone] [facility] AND CHRISTIANO [address] [facility] 2021-04-09 2021-04-09 Orders Doctor BRAYDEN 1.2.840.114 [id number] Univers 00:00:00 00:00:00 Only Unassigned, CIERRA 350.1.13.10 [place] of [place] [facility] 4.2.7.2.686 Pablo as [phone] [address] 2021-04-06 2021-04-06 Telephone [facility] 1.2.506.644 [id number] Univers 00:00:00 00:00:00 Wentong [place] 350.1.13.10 i ty of [place] 4.2.7.2.686 [place] [phone] [facility] [address] Building 2021-04-01 2021-04-01 Patient Alfonso, [facility] 1.2.840.114 [id number] Univers 00:00:00 00:00:00 Secure Msg Wentong [place] 350.1.13.10 ity of [place] 4.2.7.2.686 [place] [phone] Ia dical nal 220 [facility] 2021-03-30 2021-03-30 Refill [facility] 1.2.840.114 [id number] Univers 00:00:00 00:00:00 Davidong [place] 350.1.13.10 i ty of [place] 4.2.7.2.686 [place] [phone] Ia dical nal 220 [facility] 2021-03-27 2021-03-27 Patient [facility] 1.2.840.114 [id number] Univers 00:00:00 00:00:00 Secure Msg Alessandro MULTISPEC 350.1.13.10 ity of [place]2.7.2.686 [place] [phone] [facility] [place] [address] [facility] 2021-03-26 2021-03-26 Refill [facility] 1.2.840.114 [id number] Univers 00:00:00 00:00:00 Alessandro [place] 350.1.13.10 i ty of [place] 4.2.7.2.[place] [phone] Ia dical nal [address] [place] [address] 2021-03-26 2021-03-26 Telephone [facility] 1.2.881.334 [id number] Univers 00:00:00 00:00:00 Alessandro Castro 350.1.13.10 i ty of [place] 4.2.7.2.[place] [phone] Ia dical nal 220 [facility] 2021-03-25 2021-03-25 Office [facility] 1.2.840.114 [id number] Univers 10:45:02 12:10:14 Visit Alessandro Castro 350.1.13.10 i ty of [place] 4.2.7.2.686 [place] [phone] Ia dical nal 220 [facility] 2021-03-25 2021-03-25 Outpatient R ALFONSO [facility] [id number] Univers 11:00:00 11:00:00 ALESSANDRO ity of [facility] 2021-03-25 2021-03-25 Orders Doctor BRAYDEN 1.2.840.114 [id number] Univers 00:00:00 00:00:00 Only Unassigned, CIERRA 350.1.13.10 ity of [place] [facility] 4.2.7.2.686 Pablo as [phone] [facility] [address] 2021-03-13 2021-03-13 Orders Doctor BRAYDEN 1.2.840.114 [id number] Univers 00:00:00 00:00:00 Only Unassigned, CIERRA 350.1.13.10 ity of [place] [facility] 4.2.7.2.686 Pablo as [phone] [facility] [address] 2021-03-12 2021-03-12 Telephone Alfonso IDRAJI 1.2.651.685 [id number] Univers 00:00:00 00:00:00 [facility] MULTISPEC 350.1.13.10 ity of [facility] 4.2.7.2.686 [place] [phone] [facility] [place] [address] [facility]IC 2021-01-17 2021-01-17 Outpatient [facility] [id number] Univers 08:10:00 08:10:00 ity of [facility] 2020-12-20 2020-12-20 Outpatient [facility] [id number] Univers 08:00:00 08:00:00 ity of [facility] 2020-11-04 2020-11-04 Office Alfonso IDRAJI 1.2.840.114 [id number] Univers 11:20:30 12:25:53 Visit Alessandro Castro 350.1.13.10 i ty of [place] 4.2.7.2.686 [place] [facility] [phone] [address] 2020-11-04 2020-11-04 Outpatient R ALFONSO [facility] [id number] Univers 11:30:00 11:30:00 [facility] 2020-11-04 2020-11-04 Orders Doctor OWEN 1.2.840.114 [id number] Univers 00:00:00 00:00:00 Only Unassigned, CIERRA 350.1.13.10 ity of [place] [facility] 4.2.7.2.686 Pablo as [phone] [address] 2020-10-31 2020-10-31 Telephone [facility] 1.2.329.252 [id number] Univers 00:00:00 00:00:00 Davidong [place] 350.1.13.10 i ty of [place] 4.2.7.2.[place] [phone] [address] 2020-10-29 2020-10-29 Refill [facility] 1.2.840.114 [id number] Univers 00:00:00 00:00:00 Wentong [place] 350.1.13.10 i ty of [place] 4.2.7.2.686 [place] [phone] [address] 2020-10-17 2020-10-17 Refill [facility] 1.2.840.114 [id number] Univers 00:00:00 00:00:00 Davidong [place] 350.1.13.10 i ty of [place] 4.2.7.2.686 [place] [phone] [address] 2020-07-01 2020-07-01 Outpatient R ALFONSO [facility] [id number] Univers 11:00:00 11:00:00 WENTONG ity of [facility] 2020-07-01 2020-07-01 Telemedici [facility] 1.2.840.114 [id number] Univers 08:08:16 08:38:16 ne Visit Davidmaria teresa [place] 350.1.13.10 ity of [place] 4.2.7.2.686 [place] [phone] [address] 2020-07-01 2020-07-01 Orders Doctor BRAYDEN 1.2.840.114 [id number] Univers 00:00:00 00:00:00 Only Unassigned, CIERRA 350.1.13.10 ity of [place] [facility] 4.2.7.2.686 Pablo as [phone] [address] 2020-05-07 2020-05-07 Telephone [facility] 1.2.146.944 [id number] Univers 00:00:00 00:00:00 Wentong [place] 350.1.13.10 i ty of [place] 4.2.7.2.686 [place] [phone] [address] 2020-03-25 2020-03-26 Telemedici [facility] 1.2.840.114 [id number] Univers 08:07:43 08:25:32 ne Visit Wentong [place] 350.1.13.10 ity of [place] 4.2.7.2.686 [place] [phone] [address] 2020-03-26 2020-03-26 Telephone [facility] 1.2.960.655 [id number] Univers 00:00:00 00:00:00 Wentong [place] 350.1.13.10 i ty of [place] 4.2.7.2.686 [place] [phone] [address] 2020-03-26 2020-03-26 Orders Doctor BRAYDEN 1.2.840.114 [id number] Univers 00:00:00 00:00:00 Only Unassigned, CIERRA 350.1.13.[address] [place] [facility] 4.2.7.2.686 Pablo as [phone] [address] 2020-03-25 2020-03-25 Outpatient [facility] [id number] Univers 15:30:00 15:30:[address] [facility] 2020-03-12 2020-03-12 Telephone [facility] 1.2.039.185 [id number] Univers 00:00:00 00:00:00 Wentong [place] 350.1.13.10 i ty of [place] 4.2.7.2.686 [place] [phone] [address] 2020-03-11 2020-03-11 Telephone [facility] 1.2.246.699 [id number] Univers 00:00:00 00:00:00 Wentong [place] 350.1.13.10 i ty of [place] 4.2.7.2.[place] [phone] Ia dical [facility] 220 [facility] 2020-03-10 2020-03-10 Orders Doctor BRAYDEN 1.2.840.114 [id number] Univers 00:00:00 00:00:00 Only Unassigned, CIERRA 350.1.13.[address] [place] [facility] 4.2.7.2.686 Pablo as [phone] [facility] [address] 2020-03-06 2020-03-06 Telephone [facility] 1.2.682.767 [id number] Univers 00:00:00 00:00:00 Wentong [place] 350.1.13.10 i ty of [place] 4.2.7.2.[place] [phone] [facility] 220 [facility] 2020-03-04 2020-03-04 Telephone Yeboah, [facility] 1.2.270.045 [id number] Univers 00:00:00 00:00:00 Wentong [place] 350.1.13.10 i ty of [place] 4.2.7.2.[place] [phone] [facility] 220 [facility] 2020-02-28 2020-02-28 Refill Doctor [facility] 1.2.840.114 [id number] Univers 00:00:00 00:00:00 Unassigned, [place] 350.1.13.10 [place] 4.2.7.2.[place] [phone] [address] 2020-01-22 2020-01-22 Refill Elida [facility] 1.2.840.114 [id number] Univers 00:00:00 00:00:00 Paty MULTISPEC 350.1.13.10 ity of [place] 4.2.7.2.686 [place] [phone] [facility] [address] [facility] 2020-01-22 2020-01-22 Refill Alfonso, [facility] 1.2.840.114 [id number] Univers 00:00:00 00:00:00 Wentong [place] 350.1.13.10 i ty of [place] 4.2.7.2.[place] [phone] [address] 2019-12-18 2019-12-18 Refthierno [facility] 1.2.840.114 [id number] Univers 00:00:00 00:00:00 Alessandro Castro 350.1.13.10 i ty of [place] 4[place]2.7.2.686 [place] [phone] [address] 2019-07-12 2019-07-12 Refthierno [facility] 1.2.840.114 [id number] Univers 00:00:00 00:00:00 Paty Castro 350.1.13.10 i ty of [place] 4.2.7.2.686 [place] [phone] [address] Results Test Description Test Time Test Comments Results Result Comments Source POCT HEMOGLOBIN A1C TEST 2022-11-02 19:22:00 Test Item Value Reference Range Interpretation Comme nts POCT HBA1C (test code = 4548-4) 7.4 % 4-6 A Lab Interpretation (test code = 30966-7) [facility] [id number] 19:22:00 Test Item Value Reference Range Interpretation Comments POCT HBA1C (test code = 4548-4) 7.4 % 4-6 A Lab Interpretation (test code = Abnormal 40561-7) [facility]
[2022-11-05 13:45] LABS: Absolute Lymphocytes (CBC) 1.3 K/uL (0.7-4.9); Hematocrit 27.5 % (36.0-45.0); Lymphocytes % 14.2 % (15.3-44.8); MCV 94.3 fL (80-100); MPV 8.8 fL (7.6-11.3); RBC Red Blood Cell Count 2.91 M/uL (3.86-4.86)
[2022-11-05 13:53] LABS: Potassium 4.2 mmol/L (3.5-5.1)
[2022-11-05] MEDS ORDERED: ONDANSETRON 4 MG/2 ML VIAL ONE (14:17)
--- NOTE | 2022-11-05 14:45 | EDPHYS ---
Physician Documentation [facility] Name: Josselin Rowley Age: 67 yrs Sex: Female : 1955 Arrival Date: 11/05/2022 Time: 12:58 Bed 5 Private MD: ED Physician Shiva Lind HPI: 11/05 13:38 This 67 yrs old Female presents to ER via Wheelchair with complaints of Abnormal Lab ms3 Results. 13:39 Patient states her labs were drawn yesterday showing hyponatremia and an elevated ms3 creatinine. Onset: The symptoms/episode began/occurred 1 day(s) ago. Severity of symptoms: At their worst the symptoms were mild in the emergency department the symptoms are unchanged Pain is currently a 0 / 10. The patient has experienced similar episodes in the past, 3 recent admissions. The patient has been recently seen by a physician: the patient's primary care provider, Dr. Nugent. Historical: - Allergies: 13:16 Codeine; kb3 13:16 Sulfa (Sulfonamide Antibiotics); kb3 - Home Meds: 13:16 Cholesterol medication [Active]; aspirin 81 mg Oral chew 1 tab once daily [Active]; kb3 Calcium [Active]; - PMHx: 13:16 diabetes mellitus; Hypertensive disorder; Hypercholesterolemia; Kidney disease; kb3 - PSHx: 13:16 None; kb3 - Immunization history:: Adult Immunizations up to date, Client reports receiving the 2nd dose of the Covid vaccine, Last tetanus immunization: > 10 years ago. - Social history:: Smoking status: Patient denies any tobacco usage or history of. ROS: 13:39 Constitutional: Negative for fever, and chills. Neck: Negative for injury, pain, and ms3 swelling, Cardiovascular: Negative for chest pain, and palpitations. Respiratory: Negative for shortness of breath, cough, wheezing, and pleuritic chest pain, Abdomen/GI: Negative for abdominal pain, nausea, vomiting, diarrhea, and constipation, MS/Extremity: Negative for injury and deformity, Skin: Negative for injury, rash, and discoloration, Neuro: Negative for headache, weakness, numbness, tingling. 13:39 All other systems are negative. Exam: 13:39 Constitutional: This is a well developed, well nourished patient who is awake, alert, ms3 and in no acute distress. Head/Face: Normocephalic, atraumatic. Neck: Trachea midline, no cervical lymphadenopathy. Supple, full range of motion without nuchal rigidity, or vertebral point tenderness. No Meningismus. Chest/axilla: Normal chest wall appearance and motion. Nontender with no deformity. Cardiovascular: Regular rate and rhythm with a normal S1 and S2. No gallops, murmurs, or rubs. Normal PMI, no JVD. No pulse deficits. Respiratory: Lungs have equal breath sounds bilaterally, clear to auscultation and percussion. No rales, rhonchi or wheezes noted. No increased work of breathing, no retractions or nasal flaring. Abdomen/GI: Soft, non-tender, with normal bowel sounds. No distension or tympany. No guarding or rebound. No evidence of tenderness throughout. Skin: Warm, dry with normal turgor. Normal color with no rashes, no lesions, and no evidence of cellulitis. MS/ Extremity: Pulses equal, no cyanosis. Neurovascular intact. Full, normal range of motion. Vital Signs: 13:15 BP 114 / 49; Pulse 96; Resp 18; Temp 98; Pulse Ox 100% ; Weight 70.31 kg; Height 4 ft. kb3 8 in. (142.24 cm); Pain 0/10; 15:00 BP 124 / 60; Pulse 91; Resp 19; Pulse Ox 96% on R/A; ld1 16:00 BP 126 / 60; Pulse 90; Resp 20; Pulse Ox 97% on R/A; vg1 13:15 Body Mass Index 34.75 (70.31 kg, 142.24 cm) kb3 MDM: 13:13 Patient medically screened. ms3 13:39 Differential Diagnosis hyponatremia vs otoniel vs anemia. ms3 14:54 Data reviewed: vital signs, nurses notes, lab test result(s), and as a result, I will ms3 admit patient. Counseling: I had a detailed discussion with the patient and/or guardian regarding: the historical points, exam findings, and any diagnostic results supporting the discharge/admit diagnosis, lab results, the need for further work-up and treatment in the hospital. ED course: Discussed case with Dr Angulo and he accepts patient. All questions answered. Patient and her understand/ agree with plan.. 11/05 13:12 Order name: CBC with Diff; Complete Time: 14:03 ms3 11/05 13:12 Order name: BMP; Complete Time: 14:03 ms3 11/05 14:56 Order name: SARS RAPID eb Administered Medications: 14:23 Drug: Zofran (Ondansetron) 4 mg Route: IVP; Site: right antecubital; vg1 16:19 Follow up: Response: No adverse reaction vg1 Disposition Summary: 11/05/22 14:44 Hospitalization Ordered Hospitalization Status: Inpatient Admission ms3 Provider: Jorge Angulo ms3 Location: Telemetry/[facility] (Inpatient) ms3 Condition: Stable ms3 Problem: new ms3 Symptoms: are unchanged ms3 Bed/Room Type: Standard ms3 Room Assignment: 221(11/05/22 15:52) eb Diagnosis - Hyponatremia ms3 - OTONIEL on CKD ms3 - Anemia, unspecified ms3 Forms: - Medication Reconciliation Form ms3 - SBAR form ms3 Signatures: Dispatcher [employer] EDMargaux Andrew Victoria, RN RN vg1 Shiva Lind DO DO ms3 Doreen Zamora, RN RN kb3 Corrections: (The following items were deleted from the chart) 13:18 13:16 PMHx: kidney problem; kb3 kb3 13:18 13:16 PMHx: Hypertensive disorder; kb3 kb3 15:52 14:44 ms3 eb
--- NOTE | 2022-11-05 14:45 | ER ---
Nurse's Notes [facility] Name: Josselin Rowley Age: 67 yrs Sex: Female : 1955 Arrival Date: 11/05/2022 Time: 12:58 Bed 5 Private MD: Diagnosis: Hyponatremia;OTONIEL on CKD;Anemia, unspecified Presentation: 11/05 13:15 Chief complaint: Patient states: she was sent by Dr Nugent for low sodium level from [place] routine lab draw yesterday. Coronavirus screen: Vaccine status: Patient reports receiving the 2nd dose of the covid vaccine. Client denies travel out of the [place] in the last 14 days. Ebola Screen: Patient negative for fever greater than or equal to 101.5 degrees Fahrenheit, and additional compatible Ebola Virus Disease symptoms Patient denies exposure to infectious person. Patient denies travel to an Ebola-affected area in the 21 days before illness onset. No symptoms or risks identified at this time. Initial Sepsis Screen: Does the patient meet any 2 criteria? No. Patient's initial sepsis screen is negative. Does the patient have a suspected source of infection? No. Patient's initial sepsis screen is negative. Risk Assessment: Do you want to hurt yourself or someone else? Patient reports no desire to harm self or others. Onset of symptoms was November 04, 2022. 13:15 Method Of Arrival: Wheelchair banner 13:15 Acuity: DAVID 3 kb3 Triage Assessment: 13:16 General: Appears in no apparent distress. Behavior is calm, cooperative. Pain: Denies kb3 pain. Historical: - Allergies: 13:16 Codeine; kb3 13:16 Sulfa (Sulfonamide Antibiotics); kb3 - Home Meds: 13:16 Cholesterol medication [Active]; aspirin 81 mg Oral chew 1 tab once daily [Active]; kb3 Calcium [Active]; - PMHx: 13:16 diabetes mellitus; Hypertensive disorder; Hypercholesterolemia; Kidney disease; kb3 - PSHx: 13:16 None; kb3 - Immunization history:: Adult Immunizations up to date, Client reports receiving the 2nd dose of the Covid vaccine, Last tetanus immunization: > 10 years ago. - Social history:: Smoking status: Patient denies any tobacco usage or history of. Screenin:24 [facility] ED Fall Risk Assessment (Adult) History of falling in the last 3 months, vg1 including since admission No falls in past 3 months (0 pts) Confusion or Disorientation No (0 pts) Intoxicated or Sedated No (0 pts) Impaired Gait No (0 pts) Mobility Assist Device Used No (0 pt) Altered Elimination No (0 pt) Score/Fall Risk Level 0 - 2 = Low Risk Oriented to surroundings, Maintained a safe environment, Educated pt \T\ family on fall prevention, incl call for assistance when getting out of bed, Assessed \T\ reinforced patient's understanding of fall precautions. Abuse screen: Denies threats or abuse. Nutritional screening: No deficits noted. Tuberculosis screening: No symptoms or risk factors identified. Assessment: 13:24 General: Appears in no apparent distress. comfortable, Behavior is calm, cooperative. vg1 Pain: Denies pain. Neuro: Level of Consciousness is awake, alert, obeys commands, Oriented to person, place, time, situation. Cardiovascular: Capillary refill < 3 seconds in bilateral fingers Patient's skin is warm and dry. Respiratory: Airway is patent Respiratory effort is even, unlabored. GI: Abdomen is flat, non-distended, Reports nausea, Patient currently denies diarrhea, vomiting. : No signs and/or symptoms were reported regarding the genitourinary system. EENT: No signs and/or symptoms were reported regarding the EENT system. Derm: Skin is pink, warm \T\ dry. Musculoskeletal: Circulation, motion, and sensation intact. 15:00 Reassessment: Patient appears in no apparent distress at this time. No changes from ld1 previously documented assessment. Patient and/or family updated on plan of care and expected duration. Pain level reassessed. Patient is alert, oriented x 3, equal unlabored respirations, skin warm/dry/pink. Vital Signs: 13:15 BP 114 / 49; Pulse 96; Resp 18; Temp 98; Pulse Ox 100% ; Weight 70.31 kg; Height 4 ft. kb3 8 in. (142.24 cm); Pain 0/10; 15:00 BP 124 / 60; Pulse 91; Resp 19; Pulse Ox 96% on R/A; ld1 16:00 BP 126 / 60; Pulse 90; Resp 20; Pulse Ox 97% on R/A; vg1 13:15 Body Mass Index 34.75 (70.31 kg, 142.24 cm) kb3 ED Course: 12:58 Patient arrived in ED. as 13:02 Oksana Alvarez, RN is Primary Nurse. vg1 13:03 Shiva Lind DO is Attending Physician. ms3 13:16 Triage completed. kb3 13:16 Arm band placed on right wrist. Patient placed in an exam room, on a stretcher. kb3 13:22 Initial lab(s) drawn, by me, sent to lab. Inserted saline lock: 20 gauge in right vg1 antecubital area, using aseptic technique. Blood collected. 13:24 Patient has correct armband on for positive identification. Placed in gown. Bed in low vg1 position. Call light in reach. Side rails up X 1. Adult w/ patient. 14:43 Jorge Angulo MD is Hospitalizing Provider. ms3 16:17 No provider procedures requiring assistance completed. Patient admitted, IV remains in vg1 place. Administered Medications: 14:23 Drug: Zofran (Ondansetron) 4 mg Route: IVP; Site: right antecubital; vg1 16:19 Follow up: Response: No adverse reaction vg1 Medication: 13:24 VIS not applicable for this client. vg1 Outcome: 14:44 Decision to Hospitalize by Provider. ms3 16:16 Admitted to Med/surg accompanied by tech, room 221, with chart, Report called to 1 Ami CARTER 16:16 Condition: good 16:16 Instructed on the need for admit. 16:23 Patient left the ED. eb Signatures: Felicita Tomlinson Elizabeth eb Garcia, Victoria, RN RN vg1 Shiva Lind DO DO ms3 Roshni Mcallister, RN RN ld1 Doreen Zamora, RN RN kb3 Corrections: (The following items were deleted from the chart) 13:18 13:16 PMHx: kidney problem; kb3 kb3 13:18 13:16 PMHx: Hypertensive disorder; kb3 kb3
[2022-11-05] MEDS ORDERED: ACETAMINOPHEN 500 MG TAB PO PRN (15:12)
[2022-11-05 15:41] LABS: SARS-CoV-2 Antigen Rapid Res Negative (Negative)
[2022-11-05 16:48] VITALS: BMI 34.7
[2022-11-05] MEDS: ONDANSETRON 4 MG/2 ML VIAL IV PRN (18:41)
[2022-11-05 19:36] LABS: Specific Gravity 1.007 (1.005-1.030); Urine Bacteria <20 /HPF (<20); Urine Bilirubin NEGATIVE (Negative); Urine Blood Negative (Negative); Urine Clarity Clear (Clear); Urine Color Light-Yellow (Yellow); Urine Glucose NEGATIVE (Negative); Urine Protein 1+ (Negative); Urine RBC <5 /HPF (None Seen); Urine Urobilinogen Normal (Normal)
--- NOTE | 2022-11-05 19:48 | CON ---
Date of Consultation: 11/05/2022 Reason For Consultation: Congestive heart failure management and low sodium. History Of Present Illness: This is a 67-year-old female with past medical history of diastolic hear t failure, diabetes, hypertension, dyslipidemia, chronic kidney disease, and peripheral vascular dise ase who was sent by primary care physician due to low sodium. I evaluated her by bedside. She said she feels generally weak. She does not have necessarily any shortness of breath or lower extremity e brittney or orthopnea or any chest pain. No other complaints. The patient is being followed by Nephrolo gy. Past Medical History: As outlined above in the HPI. Medications: Refer to reconciliation sheet for detailed list. Allergies: SULFA ANTIBIOTICS. Family History: No premature coronary artery disease or cancer. Social History: Does not smoke or drink. Does not use any drugs. Review of Systems: All systems reviewed and they were negative except as mentioned in HPI. Physical Examination: Vital Signs: Temperature is 97.6, pulse 97, breathing at 18, blood pressure is 131/66, and saturatin g 95% on room air. General: Pleasant middle-aged female, in no apparent distress. Head and Neck: Pupils are equal and reactive to light. Intact eye movements. No JVD. No cervical lymphadenopathy. Neck is supple. Thyroid is not enlarged. Lungs: Clear to auscultation bilaterally. No rhonchi, wheezing, or crackles. No accessory muscle u se. Heart: Regular. No extra sounds. Abdomen: Soft, nontender. Bowel sounds positive. No organomegaly. No masses or hernia. No rigidi ty or rebound. Extremities: No edema, clubbing, or cyanosis. Intact pulses. Skin: No rash. Neurologic: Alert, awake, and oriented x3. No acute focal deficits appreciated. Investigations: Sodium 122, BUN is 60, and creatinine 3.24. Hemoglobin is 9. Assessment And Recommendations: 1.Congestive heart failure, chronic history and she has diastolic dysfunction. There are no signs o f fluid overload clinically at this point. Continue home medications. 2.Hyponatremia. Definitely this is related to advanced kidney disease. Recommend to consult Nephro logy. Thank you for the consult. /NAN Voice ID: [id number] Report ID: [id number]
--- NOTE | 2022-11-05 20:05 | P.HP ---
Certification for Inpatient Patient admitted to: Inpatient With expected LOS: >2 Midnights Patient will require the following post-hospital care: None Practitioner: I am a practitioner with admitting privileges, knowledge of patient current condition, hospital course, and medical plan of care. Services: Services provided to patient in accordance with Admission requirements found in Title 42 Section 412.3 of the Code of Federal Regulations <Kelechi Graves - Last Filed: 11/05/22 20:00> Patient History Date of Service: 11/05/22 Primary Care Provider: Jovanna Reason for admission: Hyponatremia, elevated creatinine History of Present Illness: This is a 67-year-old with past medical history of HTN, DM type 1 insulin dependen, renal failure and CHF. Patient presents to the ER for abnormal lab results. Patient states that she had lab work done yesterday and her PCP, Dr. Nugent, instructed her to go to the ER due to abnormal results. Patient was recently discharged from the hospital on 10/26/22 for CHF exacerbation, hyponatremia and hypokalemia. She had multiple recent admissions with similar symptoms. Her lab work showed sodium of 122, creatinine 3.24, BUN 60, GFR 15. Patient denies any contributory symptoms except for nausea and diarrhea. She reports having diarrhea for 4-5 days with 5 small stools per day. Patient also states that she stopped taking her Lasix a week ago per her PCPs recommendation. The patient was evaluated in the emergency room and admitted to the hospital with Nephrology and Cardiology consultation. - Past Medical/Surgical History Has patient received pneumonia vaccine in the past: Yes Diabetic: Yes -: DM -: HTN -: Renal Failure -: CHF -: Eye surgery - Family History Father -: Diabetes Mother -: Heart disease - Social History Smoking Status: Never smoker Alcohol use: No CD- Drugs: No Caffeine use: Yes Place of Residence: Home <Kelechi Graves - Last Filed: 11/05/22 20:00> Date of Service: 11/05/22 <Jorge Angulo - Last Filed: 11/05/22 20:37> Allergies Sulfa (Sulfonamide Antibiotics) Allergy (Verified 10/10/22 10:09) Anaphylaxis sulfamethoxazole [From Bactrim] Allergy (Verified 10/10/22 10:09) Anaphylaxis trimethoprim [From Bactrim] Allergy (Verified 09/15/22 22:27) Shortness of breath codeine Adverse Reaction (Verified 10/10/22 10:09) nausea Home Medications: Aspirin [Vazalore] 81 mg PO BEDTIME 09/15/22 Atorvastatin Calcium 40 mg PO BEDTIME 09/15/22 Calcium Carbonate/Vitamin D3 [Caltrate 600 Plus D3 Tablet] 1 tab PO BID 10/26/22 Ondansetron [Zofran] 4 mg PO Q6H PRN 10/26/22 Review of Systems 10-point ROS is otherwise unremarkable Gastrointestinal: Nausea, Diarrhea <Kelechi Graves - Last Filed: 11/05/22 20:00> Physical Examination - Vital Signs Temperature: 97.6 F Blood Pressure: 124/60 Pulse: 90 Respirations: 20 Pulse Ox (%): 98 - Physical Exam General: Alert, In no apparent distress, Oriented x3 HEENT: Atraumatic, PERRLA, Mucous membr. moist/pink, EOMI, Sclerae nonicteric Neck: Supple, 2+ carotid pulse no bruit, JVD not distended, No LAD, Without JVD or thyroid abnormality Respiratory: Clear to auscultation bilaterally, Normal air movement Cardiovascular: Normal pulses, Regular rate/rhythm, Normal S1 S2, Edema Capillary refill: <2 Seconds Gastrointestinal: Normal bowel sounds, No tenderness Musculoskeletal: No tenderness, Swelling Integumentary: No rashes Neurological: Normal speech, Normal strength at 5/5 x4 extr, Normal tone, Normal affect Lymphatics: No axilla or inguinal lymphadenopathy - Studies Laboratory Data (last 24 hrs) 11/05/22 13:22: Sodium 122 L, Potassium 4.2, BUN 60 H, Creatinine 3.24 H, Glucose 251 H 11/05/22 13:22: WBC 9.50, Hgb 9.0 L, Hct 27.5 L, Plt Count 519 H <Kelechi Graves - Last Filed: 11/05/22 20:00> - Studies Laboratory Data (last 24 hrs) 11/05/22 13:22: Sodium 122 L, Potassium 4.2, BUN 60 H, Creatinine 3.24 H, Glucose 251 H 11/05/22 13:22: WBC 9.50, Hgb 9.0 L, Hct 27.5 L, Plt Count 519 H <Jorge Angulo - Last Filed: 11/05/22 20:37> Assessment and Plan - Plan Assessment Hypervolemic Hyponatremia 2/2 renal dysfunction Acute on Chronic Diastolic CHF OTONIEL on CKD3 DM type 1- insulin dependent Nausea HLD Plan Hypervolemic Hyponatremia 2/2 renal dysfunction -Sodium 122 -Nephrology consulted- follow recommendations - Urine osmolality, creatinine, sodium, potassium, BMP -Gently hydration Acute on Chronic Diastolic CHF -ECHO on 10/11/22 1. NORMAL LEFT VENTRICULAR EJECTION FRACTION 55-60% WITH NORMAL WALL MOTION 2. MODERATE TO SEVERE MITRAL REGURGITATION 3. DIASTOLIC DYSFUNCTION 4. LEFT ATRIAL ENLARGEMENT 5. MILD TRICUSPID REGURGITATION 6. SEVERE PULMONARY HYPERTENSION WITH RIGHT VENTRICULAR SYSTOLIC PRESSURE -Cardiology consulted- follow recommendations -Patient stopped her Lasix regimen 1 week ago -BNP ordered -1+ BLE edema OTONIEL on CKD3 -Creatinine 3.24, BUN 60, GFR 15 - Nephrology consulted, follow up with recommendations - Avoid nephrotoxic agents, pharmacy to renally dose medications DM type 1- insulin dependent -Patient with insulin pump, continue -Continue Freestyle Rachid for glucose monitoring Nausea- Zofran PRN HLD- continue statin Discharge Plan: Home Plan to discharge in: Greater than 2 days - Advance Directives Does patient have a Living Will: No Does patient have a Durable POA for Healthcare: Yes - Code Status/Comfort Care Code Status Assessed: Yes (Full code) Time Spent Managing Pts Care (In Minutes): 55 <Kelechi Graves - Last Filed: 11/05/22 20:00> Physician Review: Patient Assessed, Agree with Above Assessment and Plan <Jorge Angulo - Last Filed: 11/05/22 20:37>
[2022-11-05] MEDS: CALCIUM CARB 500MG/VIT D 200 IU TAB PO SCH (20:14)
[2022-11-05] MEDS: ATORVASTATIN 40 MG TAB PO SCH (20:14)
[2022-11-05] MEDS ORDERED: PANTOPRAZOLE 40 MG INJ IVP ONE (20:36)
[2022-11-05] MEDS ORDERED: SODIUM CHLORIDE 0.9% 10ML INJ IV PRN (20:36)
[2022-11-05] MEDS ORDERED: CALCIUM CARBONATE CHEW 500MG TAB PO PRN (20:36)
[2022-11-06 04:29] LABS: Absolute Lymphocytes (CBC) 1.8 K/uL (0.7-4.9); Hematocrit 26.3 % (36.0-45.0); Lymphocytes % 19.3 % (15.3-44.8); MCV 94.5 fL (80-100); MPV 8.7 fL (7.6-11.3); RBC Red Blood Cell Count 2.79 M/uL (3.86-4.86)
[2022-11-06 04:48] LABS: Magnesium 2.2 mg/dL (1.6-2.4); Phosphorus 4.3 mg/dL (2.5-4.9); Potassium 3.7 mmol/L (3.5-5.1)
[2022-11-06] MEDS: ONDANSETRON 4 MG/2 ML VIAL IV PRN ×3 (06:05→20:28)
[2022-11-06] MEDS: ASPIRIN EC 81 MG TAB PO SCH (08:27)
[2022-11-06] MEDS: CALCIUM CARB 500MG/VIT D 200 IU TAB PO SCH ×2 (08:27→20:23)
[2022-11-06] MEDS ORDERED: POTASSIUM CL SA 10 MEQ TAB PO ONE (09:00)
[2022-11-06 10:06] LABS: UR PROTEIN 18.8 mg/dL (<11.9); Urine Protein/Creatinine Ratio 0.4 ratio (<0.15)
--- NOTE | 2022-11-06 10:22 | RAD REPORT ---
EXAM DESCRIPTION: US - Renal Ultrasound-Complete - 11/06/2022 9:33 am CLINICAL HISTORY: brando, ckd, assess for hydronephrosis, ckd changes COMPARISON: Renal Ultrasound-Complete dated 10/08/2022; Chest Single View dated 10/29/2022 FINDINGS: There is renal cortical thinning bilaterally. Mild increased echogenicity of both kidneys. The right kidney measures 8.3 x 4.8 x 4.0 cm. No hydronephrosis, focal mass or perinephric fluid. The left kidney measures 8.9 x 4.5 x 4.3 cm.. No hydronephrosis, focal mass or perinephric fluid. The urinary bladder is incompletely distended without gross abnormality seen. IMPRESSION: Echogenic kidneys bilaterally with thin cortex compatible with underlying medical renal disease.
[2022-11-06] MEDS: FAMOTIDINE 20 MG TAB PO SCH (10:50)
[2022-11-06 11:56] LABS: Magnesium 2.1 mg/dL (1.6-2.4); Potassium 4.9 mmol/L (3.5-5.1)
--- NOTE | 2022-11-06 13:19 | P.PN ---
Subjective Date of Service: 11/06/22 Primary Care Provider: Jovanna Chief Complaint: Hyponatremia, elevated creatinine No acute events overnight. She denies any chest pain, shortness of breath, orthopnea, or palpitations. She denies any noticeable change in urine output. Review of Systems 10-point ROS is otherwise unremarkable Physical Examination - Vital Signs Temperature: 97.4 F Blood Pressure: 109/59 Pulse: 82 Respirations: 18 Pulse Ox (%): 94 - Physical Exam General: Alert, In no apparent distress, Oriented x3 HEENT: Atraumatic, Mucous membr. moist/pink, EOMI, Sclerae nonicteric Neck: JVD not distended Respiratory: Clear to auscultation bilaterally, Normal air movement Cardiovascular: Regular rate/rhythm, Normal S1 S2, No gallops, No rubs, No murmurs, Edema (trace BLE) Gastrointestinal: Normal bowel sounds, Soft and benign, Non-distended, No tenderness, No rebound, No guarding Musculoskeletal: No clubbing Integumentary: No rashes Neurological: Normal speech, Cranial nerves 3-12 intact, Normal affect - Studies Laboratory Data (last 24 hrs) 11/05/22 13:22: Sodium 122 L, Potassium 4.2, BUN 60 H, Creatinine 3.24 H, Glucose 251 H 11/05/22 13:22: WBC 9.50, Hgb 9.0 L, Hct 27.5 L, Plt Count 519 H Assessment And Plan - Plan # Suspect Euvolemic vs Hypovolemic Hyponatremia Differential diagnoses include, but are not limited to euvolemic hyponatremia (i.e. syndrome of inappropriate anti-diuretic hormone secretion [SIADH], hypothyroidism) or hypovolemic hyponatremia (i.e. inadequate oral intake). - Nephrology consulted - recommendations appreciated - Sodium: 122 -> 125 -> 126 - Ordered TSH, urine osmolality - Serum osmolality = 277 - Urine sodium = 22 - IV fluids vs fluid restriction based on above results # KDIGO Stage I Acute Kidney Injury on Chronic Kidney Disease Stage III - Nephrology consulted - recommendations appreciated - Creatinine = 3.24 -> 3.17 (creatinine as low as 1.74 on 10/15/2022) - Urinalysis = 25 leukocyte esterase, 1+ protein, trace yeast - Renal ultrasound = "echogenic kidneys bilaterally with thin cortex compatible with underlying medical renal disease." - Monitor creatinine and urine output - Renally dose medications # Type I Diabetes Mellitus on Insulin Pump - Discussed with Dr. Nugent - he reports that she is very reliable managing her own insulin pump. He advised to keep her insulin pump on her as she has had poor glycemic control in the past once the pump was discontinued. - Monitor glucose levels # Chronic Compensated Diastolic Congestive Heart Failure with Preserved Ejection Fraction # Hypertension She does not appear to be in an acute CHF exacerbation. - Cardiology consulted - recommendations appreciated - Diuresis per Nephrology - Resume home medications once verified - Daily weights - Strict I/O # Hyperlipidemia - Continue home atorvastatin Jorge Angulo M.D.
--- NOTE | 2022-11-06 15:25 | P.CNS ---
Date of Consult: 11/06/22 Reason for Consult: OTONIEL , Hyponatremia Primary Care Provider: Jovanna Chief Complaint: Hyponatremia, elevated creatinine History of Present Illness: 67F w/ PMHx of chronic hyponatremia, CKD 3-4, recent SCr 2.3 , Htn, DM2, chronic diastolic HF, and pulmonary HTN Pt was sent for abnormal labs pt had multiple hospitalization over last 2 months , on september admitted for CHF exacerbation and hyponatremia, symptoms improved on diuretcs , then readmitted again for OTONIEL Cr 3.9 and hyponatremia NA 112 , that improved on IVF , pt was not feeling well recently , reported poor oral intake and diarrhea, Dr Nugent instructed pt to hold diuretics, labs showed low Na 121 and Cr 3.2 , pt instructed to come to ER ROS General : denies fever, chills, WT change weakness, insomnia HEENT: Denies dry, vision changes and headache Resp: denies SOB, cough or wheezes Cardiovascular: : denies chest pain, palpitation GI: nausea, diarrhea : denies dysuria, urgency, foamy urine or blood tinged urine Muscloskeltal: denies muscle aches, joint pain Endo: denies polyuria and and polydipsia Extre: denies pain numbness and swelling Physical exam General: AAOx3, NAD, obese CHEST; CTAB, no wheezes or rales HEART : RRR. Normal S1,2 no murmur or rub Abd: soft, Nt Ext: no edema Skin : No rash #Hyponatremia possibly due to poor solute intake High uric acid will order urine lytes and Osmol will start gentle hydration will add gulcerna #OTONIEL possibly due to drhydration US no hydronephrosis cont to hold lasix renal diet renal dose medications avoid NSAID and contrast #DM SSI #HTN BP controlled time spend exam the patient face to face , discussing with patient , reviewing la and radiology date, placing order , discussing the case with staff and with other team consultan and hospitalist 65 min. Allergies Sulfa (Sulfonamide Antibiotics) Allergy (Verified 10/10/22 10:09) Anaphylaxis sulfamethoxazole [From Bactrim] Allergy (Verified 10/10/22 10:09) Anaphylaxis trimethoprim [From Bactrim] Allergy (Verified 09/15/22 22:27) Shortness of breath codeine Adverse Reaction (Verified 10/10/22 10:09) nausea Home Medications: Aspirin [Vazalore] 81 mg PO BEDTIME 09/15/22 Atorvastatin Calcium 40 mg PO BEDTIME 09/15/22 Calcium Carbonate/Vitamin D3 [Caltrate 600 Plus D3 Tablet] 1 tab PO BID 10/26/22 Ondansetron [Zofran] 4 mg PO Q6H PRN 10/26/22 - Past Medical/Surgical History Diabetic: Yes -: DM -: HTN -: Renal Failure -: CHF -: Eye surgery - Family History Father Medical History: Diabetes Mother Medical History: Heart disease - Social History Smoking Status: Never smoker Alcohol use: No CD- Drugs: No Caffeine use: Yes Place of Residence: Home Physical Examination Temp Pulse Resp BP Pulse Ox 97.4 F 82 18 109/59 L 94 11/06/22 13:35 11/06/22 13:35 11/06/22 13:35 11/06/22 13:35 11/06/22 13:35
[2022-11-06] MEDS: NA CHLORIDE 0.9% 1,000 ML IV SCH (16:29)
[2022-11-06] MEDS: ATORVASTATIN 40 MG TAB PO SCH (20:23)
[2022-11-07] MEDS: ONDANSETRON 4 MG/2 ML VIAL IV PRN ×3 (01:42→20:48)
[2022-11-07 05:11] LABS: Potassium 4.3 mmol/L (3.5-5.1); Thyroid Stimulating Hormone 3.28 uIU/mL (0.358-3.740)
[2022-11-07] MEDS: ASPIRIN EC 81 MG TAB PO SCH (08:42)
[2022-11-07] MEDS: CALCIUM CARB 500MG/VIT D 200 IU TAB PO SCH ×2 (08:42→20:48)
[2022-11-07] MEDS: FAMOTIDINE 20 MG TAB PO SCH (08:43)
[2022-11-07] MEDS ORDERED: CALCIUM CARBONATE CHEW 500MG TAB PO ONE (13:20)
[2022-11-07] MEDS: NA CHLORIDE 0.9% 1,000 ML IV SCH (13:27)
--- NOTE | 2022-11-07 15:19 | P.PN ---
Subjective Date of Service: 11/07/22 Primary Care Provider: Jovanna Chief Complaint: Hyponatremia, elevated creatinine No acute events overnight. This morning, she reports that her primary concern is indigestion. She tried famotidine with partial relief. She is requesting Tums. She denies any chest pain, shortness of breath, orthopnea, or palpitations. Review of Systems 10-point ROS is otherwise unremarkable Gastrointestinal: Other (indigestion) Physical Examination - Vital Signs Temperature: 97.4 F Blood Pressure: 114/57 Pulse: 87 Respirations: 18 Pulse Ox (%): 96 Assessment And Plan - Plan - Physical Exam General: Alert, In no apparent distress, Oriented x3 HEENT: Atraumatic, Mucous membr. moist/pink, EOMI, Sclerae nonicteric Neck: JVD not distended Respiratory: Clear to auscultation bilaterally, Normal air movement Cardiovascular: Regular rate/rhythm, Normal S1 S2, No gallops, No rubs, No murmurs, Edema (trace BLE) Gastrointestinal: Normal bowel sounds, Soft and benign, Non-distended, No tenderness, No rebound, No guarding Musculoskeletal: No clubbing Integumentary: No rashes Neurological: Normal speech, Cranial nerves 3-12 intact, Normal affect # Suspect Euvolemic vs Hypovolemic Hyponatremia Differential diagnoses include, but are not limited to euvolemic hyponatremia vs hypovolemic hyponatremia (i.e. inadequate oral intake). - Nephrology consulted and spoke with Dr. Siddiqui - recommendations appreciated - He states volume status is difficult to determine, but he suspects hypovolemia - so will fluid challenge and re-assess - Sodium: 122 -> 125 -> 126 -> 127 - Evaluation thus far: - Serum osmolality = 277 - Urine osmolality = 188 - Urine sodium = 22 - TSH = 3.28 # KDIGO Stage I Acute Kidney Injury on Chronic Kidney Disease Stage III - Nephrology consulted - recommendations appreciated - Creatinine = 3.24 -> 3.17 -> 2.96 (creatinine as low as 1.74 on 10/15/2022) - Urinalysis = 25 leukocyte esterase, 1+ protein, trace yeast - Renal ultrasound = "echogenic kidneys bilaterally with thin cortex compatible with underlying medical renal disease." - Monitor creatinine and urine output - Renally dose medications # Type I Diabetes Mellitus on Insulin Pump - Discussed with Dr. Nugent - he reports that she is very reliable managing her own insulin pump. He advised to keep her insulin pump on her as she has had poor glycemic control in the past once the pump was discontinued. - Monitor glucose levels # Chronic Compensated Diastolic Congestive Heart Failure with Preserved Ejection Fraction # Hypertension She does not appear to be in an acute CHF exacerbation. - Cardiology consulted - recommendations appreciated - Diuresis per Nephrology - Resume home medications once verified - Daily weights - Strict I/O # Hyperlipidemia - Continue home atorvastatin Jorge Angulo M.D.
--- NOTE | 2022-11-07 15:21 | P.PN ---
Subjective Date of Service: 11/07/22 Primary Care Provider: Jovanna Chief Complaint: Hyponatremia, elevated creatinine 67F w/ PMHx of chronic hyponatremia, CKD 3-4, recent SCr 2.3 , Htn, DM2, chronic diastolic HF, and pulmonary HTN Pt was sent for abnormal labs pt had multiple hospitalization over last 2 months , on september admitted for CHF exacerbation and hyponatremia, symptoms improved on diuretcs , then readmitted again for OTONIEL Cr 3.9 and hyponatremia NA 112 , that improved on IVF , pt was not feeling well recently , reported poor oral intake and diarrhea, Dr Nugent instructed pt to hold diuretics, labs showed low Na 121 and Cr 3.2 , pt instructed to come to ER Today no overnight events pt showing signs of fluid overload will dc IVF ,will start LAsix will add glucerna Physical exam General: AAOx3, NAD, obese CHEST; CTAB, no wheezes or rales HEART : RRR. Normal S1,2 no murmur or rub Abd: soft, Nt Ext: edema Skin : No rash #Hyponatremia possibly due to poor solute intake and fluid overload , mildly elevated urine osmol , with low urine sodium and serum osmol of 188 High uric acid did not improve on IVF and showing signs of fluid overload mildly elevated urine osmol , with low urine sodium and serum osmol of 188 gulcerna will start on laaisx will add glucerna F/U SPEP , UPEP #OTONIEL possibly due to cardiorenal renal syndome US no hydronephrosis cont to hold lasix renal diet renal dose medications avoid NSAID and contrast #DM SSI #HTN BP controlled time spend exam the patient face to face , discussing with patient , reviewing la and radiology date, placing order , discussing the case with staff and with other team consultan and hospitalist 45 min. Physical Examination - Vital Signs Temperature: 97.4 F Blood Pressure: 114/57 Pulse: 87 Respirations: 18 Pulse Ox (%): 96 Assessment And Plan Physician Review: Patient Assessed, Agree with Above Assessment and Plan
[2022-11-07] MEDS: PANTOPRAZOLE 40MG TABLET PO SCH (17:03)
[2022-11-07] MEDS: FUROSEMIDE 40 MG/4 ML VIAL IV SCH ×2 (17:03→20:49)
--- NOTE | 2022-11-07 17:47 | RAD REPORT ---
EXAM DESCRIPTION: RAD - Chest Single View - 11/07/2022 5:21 pm CLINICAL HISTORY: CHF Chest pain. COMPARISON: Chest Single View dated 10/29/2022; Chest Single View dated 10/26/2022; Chest Single Vie w dated 10/13/2022; Chest Single View dated 10/11/2022 FINDINGS: Portable technique limits examination quality. Mild pulmonary edema is present. Small bilateral pleural effusions noted. The heart is moderately enl arged. No displaced fractures. IMPRESSION: Mild to moderate CHF versus volume overload pattern.
[2022-11-07] MEDS: GLUCERNA SHAKE 237 ML CAN PO SCH (20:48)
[2022-11-07] MEDS: ATORVASTATIN 40 MG TAB PO SCH (20:48)
[2022-11-08] MEDS ORDERED: PROMETHAZINE INJ 25 MG/ML AMP IV ONE (02:07)
[2022-11-08 04:13] LABS: Potassium 4.4 mmol/L (3.5-5.1)
[2022-11-08] MEDS: PANTOPRAZOLE 40MG TABLET PO SCH (06:33)
[2022-11-08] MEDS: CALCIUM CARB 500MG/VIT D 200 IU TAB PO SCH ×2 (08:40→21:19)
[2022-11-08] MEDS: ASPIRIN EC 81 MG TAB PO SCH (08:40)
[2022-11-08] MEDS: FAMOTIDINE 20 MG TAB PO SCH (08:41)
[2022-11-08] MEDS: GLUCERNA SHAKE 237 ML CAN PO SCH ×2 (08:41→21:00)
[2022-11-08] MEDS: FUROSEMIDE 40 MG/4 ML VIAL IV SCH ×2 (08:41→21:00)
[2022-11-08] MEDS: ATORVASTATIN 40 MG TAB PO SCH (21:18)
--- NOTE | 2022-11-08 21:40 | PN ---
Date of Progress Note: 11/08/2022 Chief Complaint: Hyponatremia, elevated serum creatinine level. Subjective: The patient has history of chronic hyponatremia. She presented to the hospital because of generalized weakness. Patient has history of CKD 3 advancing to stage 4. Recent serum creatinine level was 2.3. Patient has underlying history of hypertension, diabetes mellitus type 2, chronic di astolic congestive heart failure, pulmonary hypertension. Patient was sent to the hospital because o f abnormal labs. She was complaining of generalized weakness. She was found to have CHF exacerbatio n and hyponatremia. Symptoms improved on diuretic. Patient was admitted for acute kidney injury wit h serum creatinine of 3.9 and at that time, serum sodium level was 112 and patient received IV fluids for hyponatremia. In the recent past, lab work showed sodium was 121 and serum creatinine of 3.2. Patient was instructed to come to the emergency room. Review of Systems: Patient denies complaints. Physical Examination: Lungs: Clear to auscultation bilaterally. Heart: S1 and S2. Abdomen: Soft, benign. Extremities: No edema. Impression And Plan: 1.Hyponatremia, hypoosmolar. Patient had poor solute intake and fluid overload, mildly elevated uri ne osmolality with low urine sodium and serum osmolality of 188 as per labs on admission. There is h igh uric acid level. There is combination factors causing hyponatremia including congestive heart fa ilure exacerbation and low solute intake and hypervolemia. The patient was started on Lasix. Patien t will start high-protein diet to improve control of hyponatremia. 2.Acute kidney injury, possible due to cardiorenal syndrome in combination of low solute intake. Rosalio ugarte will continue Lasix. Plan is to avoid HCTZ. Continue renal dose of medication. Avoid nonster oidal anti-inflammatory medication. Avoid IV contrast due to acute and chronic kidney injury and car diorenal syndrome. 3.Diabetes mellitus. Continue insulin. 4.Hypertension. Blood pressure controlled. EB/MODL Voice ID: [id number] Report ID: [id number]
[2022-11-09] MEDS: PANTOPRAZOLE 40MG TABLET PO SCH (05:58)
[2022-11-09 06:18] LABS: Potassium 4.5 mmol/L (3.5-5.1)
[2022-11-09 06:43] LABS: Absolute Lymphocytes (CBC) 1.6 K/uL (0.7-4.9); Hematocrit 30.5 % (36.0-45.0); Lymphocytes % 20.9 % (15.3-44.8); MCV 94.7 fL (80-100); MPV 8.2 fL (7.6-11.3); RBC Red Blood Cell Count 3.22 M/uL (3.86-4.86)
[2022-11-09] MEDS: GLUCERNA SHAKE 237 ML CAN PO SCH ×2 (09:57→21:00)
[2022-11-09] MEDS: CALCIUM CARB 500MG/VIT D 200 IU TAB PO SCH ×2 (09:57→21:43)
[2022-11-09] MEDS: FUROSEMIDE 40 MG/4 ML VIAL IV SCH ×2 (09:57→21:42)
[2022-11-09] MEDS: ASPIRIN EC 81 MG TAB PO SCH (09:57)
[2022-11-09] MEDS ORDERED: LOPERAMIDE HCL 2 MG CAPSULE PO STA (10:15)
--- NOTE | 2022-11-09 10:43 | P.PN ---
Subjective Date of Service: 11/09/22 Primary Care Provider: Jovanna Chief Complaint: Hyponatremia, elevated creatinine 67F w/ PMHx of chronic hyponatremia, CKD 3-4, recent SCr 2.3 , Htn, DM2, chronic diastolic HF, and pulmonary HTN Pt was sent for abnormal labs pt had multiple hospitalization over last 2 months , on september admitted for CHF exacerbation and hyponatremia, symptoms improved on diuretcs , then readmitted again for OTONIEL Cr 3.9 and hyponatremia NA 112 , that improved on IVF , pt was not feeling well recently , reported poor oral intake and diarrhea, Dr Nugent instructed pt to hold diuretics, labs showed low Na 121 and Cr 3.2 , pt instructed to come to ER Today no overnight events na dropped to 127 pt receiveing lasix once daily , skipped night dose due to hypotension will start midodrine will start lamotil and cholyesteramine Physical exam General: AAOx3, NAD, obese CHEST; CTAB, no wheezes or rales HEART : RRR. Normal S1,2 no murmur or rub Abd: soft, Nt Ext: edema Skin : No rash #Hyponatremia possibly due to poor solute intake and fluid overload , mildly elevated urine osmol , with low urine sodium and serum osmol of 188 High uric acid did not improve on IVF and showing signs of fluid overload mildly elevated urine osmol , with low urine sodium and serum osmol of 188 gulcerna will start on laaisx will add glucerna F/U SPEP , UPEP #OTONIEL possibly due to cardiorenal renal syndome US no hydronephrosis cont to hold lasix renal diet renal dose medications avoid NSAID and contrast #DM SSI #HTN BP controlled #Diarrhea will send for C.Diff will start Imodium and cholyesteramine time spend exam the patient face to face , discussing with patient , reviewing la and radiology date, placing order , discussing the case with staff and with other team consultan and hospitalist 45 min. Physical Examination - Vital Signs Temperature: 97 F Blood Pressure: 119/58 Pulse: 94 Respirations: 14 Pulse Ox (%): 98 Assessment And Plan Physician Review: Patient Assessed, Agree with Above Assessment and Plan
[2022-11-09] MEDS: MIDODRINE HCL 5 MG TABLET PO SCH ×2 (14:17→21:43)
[2022-11-09] MEDS: CHOLESTYRAMINE/ASP 4 GM/PKT PO SCH (16:19)
[2022-11-09] MEDS ORDERED: FAMOTIDINE 20 MG/2 ML VIAL IV ONE (21:29)
[2022-11-09] MEDS: ATORVASTATIN 40 MG TAB PO SCH (21:43)
[2022-11-10] MEDS: ONDANSETRON 4 MG/2 ML VIAL IV PRN (01:00)
[2022-11-10 06:06] VITALS: O2SAT 95
[2022-11-10] MEDS: PANTOPRAZOLE 40MG TABLET PO SCH (06:11)
[2022-11-10] MEDS: CALCIUM CARB 500MG/VIT D 200 IU TAB PO SCH ×2 (08:42→20:21)
[2022-11-10] MEDS: CHOLESTYRAMINE/ASP 4 GM/PKT PO SCH ×2 (08:42→16:47)
[2022-11-10] MEDS: ASPIRIN EC 81 MG TAB PO SCH (08:42)
[2022-11-10] MEDS: MIDODRINE HCL 5 MG TABLET PO SCH ×3 (08:42→20:21)
[2022-11-10] MEDS: FUROSEMIDE 40 MG/4 ML VIAL IV SCH ×2 (08:42→20:21)
[2022-11-10] MEDS: GLUCERNA SHAKE 237 ML CAN PO SCH ×2 (08:43→19:45)
[2022-11-10 11:28] LABS: Absolute Lymphocytes (CBC) 1.2 K/uL (0.7-4.9); Hematocrit 27.7 % (36.0-45.0); Lymphocytes % 12.2 % (15.3-44.8); MCV 93.6 fL (80-100); MPV 7.8 fL (7.6-11.3); RBC Red Blood Cell Count 2.96 M/uL (3.86-4.86)
[2022-11-10 11:42] LABS: Potassium 4.6 mmol/L (3.5-5.1)
--- NOTE | 2022-11-10 13:57 | P.PN ---
Subjective Date of Service: 11/10/22 Primary Care Provider: Jovanna Chief Complaint: Hyponatremia, elevated creatinine 67F w/ PMHx of chronic hyponatremia, CKD 3-4, recent SCr 2.3 , Htn, DM2, chronic diastolic HF, and pulmonary HTN Pt was sent for abnormal labs pt had multiple hospitalization over last 2 months , on september admitted for CHF exacerbation and hyponatremia, symptoms improved on diuretcs , then readmitted again for OTONIEL Cr 3.9 and hyponatremia NA 112 , that improved on IVF , pt was not feeling well recently , reported poor oral intake and diarrhea, Dr Nugent instructed pt to hold diuretics, labs showed low Na 121 and Cr 3.2 , pt instructed to come to ER Today no overnight events Corectd sodium ~130 Cr stable Cont fluid restriction 40-50oz daily Pt can be discharged tomorrow from nephrology point of view , if sodium and cr remains stable to be discharged on lasix 80mg bid and midodrine monitor wt at home and incrase lasix to tid if wt gain > 4lbs Physical exam General: AAOx3, NAD, obese CHEST; CTAB, no wheezes or rales HEART : RRR. Normal S1,2 no murmur or rub Abd: soft, Nt Ext: edema Skin : No rash #Hyponatremia possibly due to poor solute intake and fluid overload , mildly elevated urine osmol , with low urine sodium and serum osmol of 188 High uric acid did not improve on IVF and showing signs of fluid overload mildly elevated urine osmol , with low urine sodium and serum osmol of 188 gulcerna Cont lasix and glucerna Cont Midodrine F/U SPEP , UPEP #OTONIEL possibly due to cardiorenal renal syndome US no hydronephrosis cont to hold lasix renal diet renal dose medications avoid NSAID and contrast #DM SSI #HTN BP controlled #Diarrhea F/U C.Diff Cont Imodium and cholyesteramine time spend exam the patient face to face , discussing with patient , reviewing la and radiology date, placing order , discussing the case with staff and with other team consultan and hospitalist 45 min. Physical Examination - Vital Signs Temperature: 97.9 F Blood Pressure: 113/53 Pulse: 86 Respirations: 14 Pulse Ox (%): 97 Assessment And Plan Physician Review: Patient Assessed, Agree with Above Assessment and Plan
[2022-11-10] MEDS ORDERED: LOPERAMIDE HCL 2 MG CAPSULE PO STA ×2 (16:33→20:44)
[2022-11-10] MEDS ORDERED: ALBUMIN HUMAN 25% 100 ML IV ONE (17:00)
[2022-11-10] MEDS: ATORVASTATIN 40 MG TAB PO SCH (20:21)
[2022-11-11] MEDS: PANTOPRAZOLE 40MG TABLET PO SCH (05:40)
[2022-11-11 06:30] LABS: Absolute Lymphocytes (CBC) 1.5 K/uL (0.7-4.9); MCV 94.2 fL (80-100); MPV 7.8 fL (7.6-11.3); RBC Red Blood Cell Count 2.55 M/uL (3.86-4.86)
[2022-11-11 06:50] LABS: Albumin 3.2 g/dL (3.4-5.0); Bilirubin Total 0.5 mg/dL (0.2-1.0); Magnesium 2.1 mg/dL (1.6-2.4); Potassium 3.8 mmol/L (3.5-5.1); Protein, Total 5.8 g/dL (6.4-8.2)
[2022-11-11] MEDS: FUROSEMIDE 40 MG/4 ML VIAL IV SCH (09:05)
[2022-11-11] MEDS: ASPIRIN EC 81 MG TAB PO SCH (09:06)
[2022-11-11] MEDS: CALCIUM CARB 500MG/VIT D 200 IU TAB PO SCH (09:06)
[2022-11-11] MEDS: MIDODRINE HCL 5 MG TABLET PO SCH (09:06)
[2022-11-11] MEDS: GLUCERNA SHAKE 237 ML CAN PO SCH (09:07)
[2022-11-11] MEDS: CHOLESTYRAMINE/ASP 4 GM/PKT PO SCH (09:07)
--- NOTE | 2022-11-11 10:17 | P.PN ---
Subjective Date of Service: 11/08/22 She states that she is feeling a little bit better. Having some diarrhea which is minimal. Denies any other complaints. She is just trying to figure out why her kidneys suddenly decompensated while she is developed a really low sodium level. Review of Systems 10-point ROS is otherwise unremarkable Physical Examination - Vital Signs Temperature: 97.7 F Blood Pressure: 131/57 Pulse: 59 Respirations: 16 Pulse Ox (%): 96 - Physical Exam General: Alert, In no apparent distress, Oriented x3 Respiratory: Clear to auscultation bilaterally, Normal air movement Cardiovascular: Regular rate/rhythm, Normal S1 S2, No murmurs Gastrointestinal: Normal bowel sounds, Soft and benign, Non-distended, No tenderness Musculoskeletal: No clubbing, No swelling, No tenderness Neurological: Sensation intact, Cranial nerves 3-12 intact - Studies Medications List Reviewed: Yes Assessment & Plan - Problems (Diagnosis) (1) OTONIEL (acute kidney injury) Current Visit: Yes Status: Acute (2) CKD (chronic kidney disease) stage 3, GFR 30-59 ml/min Current Visit: Yes Status: Acute (3) Hyponatremia Current Visit: Yes Status: Acute (4) Type 1 diabetes mellitus Current Visit: Yes Status: Acute (5) Neuropathy Current Visit: Yes Status: Acute (6) Diarrhea Current Visit: Yes Status: Acute (7) Diastolic CHF Current Visit: Yes Status: Acute (8) Severe pulmonary hypertension Current Visit: Yes Status: Acute (9) Moderate to severe mitral regurgitation Current Visit: Yes Status: Acute (10) Cardiorenal syndrome with renal failure Current Visit: Yes Status: Acute - Plan 1. Monitor volume status closely 2. Check sodium level 3. Monitor renal function 4. Blood sugar control 5. Cardiology follow-up for multiple cardiac issues including diastolic heart failure, severe pulmonary hypertension, and moderate to severe mitral regurgitation 6. Monitor labs closely 7. Out of bed and ambulate 8. GI and DVT prophylaxis Discharge Plan: Home Plan to discharge in: Greater than 2 days - Advance Directives Does patient have a Living Will: No Does patient have a Durable POA for Healthcare: Yes - Code Status/Comfort Care Code Status Assessed: Yes Code Status: Full Code Physician Review: Patient Assessed, Agree with Above Assessment and Plan Critical Care: No Time Spent Managing PTS Care (In Minutes): 35
--- NOTE | 2022-11-11 10:20 | P.PN ---
Date of Service: 11/09/22 Subjective Continues to improve. Diarrhea has gotten a little worse. Sodium level has fluctuated as his renal function. Appreciate nephrology consultation. Physical Examination - Vital Signs Reviewed - Physical Exam General: Alert, In no apparent distress, Oriented x3 Respiratory: Clear to auscultation bilaterally, Normal air movement Cardiovascular: Regular rate/rhythm, Normal S1 S2, No murmurs Gastrointestinal: Normal bowel sounds, Soft and benign, Non-distended, No tenderness Musculoskeletal: No clubbing, No swelling, No tenderness Neurological: Sensation intact, Cranial nerves 3-12 intact Assessment & Plan - Problems (Diagnosis) (1) OTONIEL (acute kidney injury) Current Visit: Yes Status: Acute (2) CKD (chronic kidney disease) stage 3, GFR 30-59 ml/min Current Visit: Yes Status: Acute (3) Hyponatremia Current Visit: Yes Status: Acute (4) Type 1 diabetes mellitus Current Visit: Yes Status: Acute (5) Neuropathy Current Visit: Yes Status: Acute (6) Diarrhea Current Visit: Yes Status: Acute (7) Diastolic CHF Current Visit: Yes Status: Acute (8) Severe pulmonary hypertension Current Visit: Yes Status: Acute (9) Moderate to severe mitral regurgitation Current Visit: Yes Status: Acute (10) Cardiorenal syndrome with renal failure Current Visit: Yes Status: Acute - Plan Continue with plan of care as mentioned below: 1. Monitor hydration 2. Monitor sodium level 3. Monitor renal function 4. Strict blood sugar control 5. Cardiology follow-up for multiple cardiac issues including diastolic heart failure, severe pulmonary hypertension, and moderate to severe mitral regurgitation 6. Monitor labs closely 7. Out of bed and ambulate 8. GI and DVT prophylaxis
--- NOTE | 2022-11-11 10:21 | P.PN ---
Date of Service: 11/10/22 Subjective Physical Examination - Vital Signs Reviewed - Physical Exam General: Alert, In no apparent distress, Oriented x3 Respiratory: Clear to auscultation bilaterally, Normal air movement Cardiovascular: Regular rate/rhythm, Normal S1 S2, No murmurs Gastrointestinal: Normal bowel sounds, Soft and benign, Non-distended, No t enderness Musculoskeletal: No clubbing, No swelling, No tenderness Neurological: Sensation intact, Cranial nerves 3-12 intact Assessment & Plan - Problems (Diagnosis) (1) OTONIEL (acute kidney injury) Current Visit: Yes Status: Acute (2) CKD (chronic kidney disease) stage 3, GFR 30-59 ml/min Current Visit: Yes Status: Acute (3) Hyponatremia Current Visit: Yes Status: Acute (4) Type 1 diabetes mellitus Current Visit: Yes Status: Acute (5) Neuropathy Current Visit: Yes Status: Acute (6) Diarrhea Current Visit: Yes Status: Acute (7) Diastolic CHF Current Visit: Yes Status: Acute (8) Severe pulmonary hypertension Current Visit: Yes Status: Acute (9) Moderate to severe mitral regurgitation Current Visit: Yes Status: Acute (10) Cardiorenal syndrome with renal failure Current Visit: Yes Status: Acute - Plan Continue with plan of care as mentioned below: 1. Monitor hydration 2. Monitor sodium level 3. Monitor renal function 4. Strict blood sugar control 5. Cardiology follow-up for multiple cardiac issues including diastolic heart failure, severe pulmonary hypertension, and moderate to severe mitral regurgitation 6. Monitor labs closely 7. Out of bed and ambulate 8. GI and DVT prophylaxis
[2022-11-11 13:08] VITALS: BP 125/56; TEMP 97.1
== END 2022-11-11 13:41 | disposition home health service (06) | DRG 682 ==
LOC: ER 12:55 → ERHOLD 14:48 → 2ND 16:17
PROVIDERS: ADMIT Internal Medicine; ATTEND Hospitalist
DX: N17.9 Acute kidney failure, unspecified (principal); I50.33 Acute on chronic diastolic (congestive) heart failure; I13.0 Hypertensive heart and chronic kidney disease with heart failure and stage 1 through stage 4 chronic kidney disease, or unspecified chronic kidney disease; E87.1 Hypo-osmolality and hyponatremia; E10.29 Type 1 diabetes mellitus with other diabetic kidney complication; E10.40 Type 1 diabetes mellitus with diabetic neuropathy, unspecified; E10.22 Type 1 diabetes mellitus with diabetic chronic kidney disease; I27.20 Pulmonary hypertension, unspecified; N18.30 Chronic kidney disease, stage 3 unspecified; E78.5 Hyperlipidemia, unspecified; R19.7 Diarrhea, unspecified; I34.0 Nonrheumatic mitral (valve) insufficiency; Z96.41 Presence of insulin pump (external) (internal); Z20.822 Contact with and (suspected) exposure to COVID-19
CPT/HCPCS: 36415; 71045; 76770; 80048; 80051; 80053; 80061; 81001; 82570; 83735; 83880; 83930; 83935; 84100; 84132; 84156; 84300; 84443; 84550; 85025; 86334; 87811; 96374; 99285; C9113; J1940; J2405; J2550; J7030; P9047

== ENCOUNTER 2023-06-23 09:00 | Day surgery (SDC) | payer OTHER ==
[2023-06-21 12:09] LABS: Absolute Lymphocytes (CBC) 1.3 K/uL (0.7-4.9); Hematocrit 35.5 % (36.0-45.0); Lymphocytes % 14.8 % (15.3-44.8); MCV 102.8 fL (80-100); MPV 8.3 fL (7.6-11.3); Platelets 459 thou/uL (152-406); RBC Red Blood Cell Count 3.45 M/uL (3.86-4.86)
[2023-06-21 12:19] LABS: Protime INR 0.98
--- NOTE | 2023-06-21 12:23 | RAD REPORT ---
EXAM DESCRIPTION: RAD - Chest Pa And Lat (2 Views) - 06/21/2023 12:15 pm CLINICAL HISTORY: pre op pending heart cath/abdominal angiogram Chest pain. COMPARISON: Chest Single View dated 02/13/2023; Chest Single View dated 02/11/2023; Chest Single View d ated 02/09/2023; Chest Single View dated 11/07/2022 FINDINGS: The lungs are clear. The heart is normal in size. No displaced fractures. Right-sided veno us catheter tip in the SVC. IMPRESSION: No acute or concerning finding suspected. The USPSTF recommends annual screening for lung cancer with low-dose CT (LDCT) in adults aged 50 to 8 0 years who have a 20 pack-year smoking history and currently smoke or have quit within the past 15 y ears.
--- NOTE | 2023-06-22 18:11 | EKG ---
Test Date: 2023-06-21 Test Time: 11:55:40 Ironer Hand: MIKAELA MEASUREMENT RESULTS: Intervals: Rate: 75 NH: 142 QRSD: 82 QT: 388 QTc: 433 [place]: P: 66 NH: 142 QRS: 60 T: -85 INTERPRETIVE STATEMENTS: Normal sinus rhythm ST & T wave abnormality, consider inferolateral ischemia Abnormal ECG Compared to ECG 10/26/2022 10:20:58 ST (T wave) deviation now present Possible ischemia now present Electronically Signed On 06-22-23 18:09:59 CDT by Jaxson Grover
[2023-06-23] MEDS ORDERED: NA CHLORIDE 0.9% 500 ML ONE (09:37)
[2023-06-23 10:01] VITALS: BP 111/68; TEMP 97.5; O2SAT 100
[2023-06-23] MEDS ORDERED: LIDOCAINE 1% 20 ML MDV ONE (10:42)
[2023-06-23] MEDS ORDERED: HEPARIN 5000 UNIT/ML 1 ML VIAL ONE (10:42)
[2023-06-23] MEDS ORDERED: HEPA 1000U/500MLS 2,000 UNIT/1,000 ML BAG IV ONE (10:42)
[2023-06-23] MEDS ORDERED: MIDAZOLAM HCL 2 MG/2 ML INJ ONE (10:42)
[2023-06-23] MEDS ORDERED: ASPIRIN 325 MG TAB ONE (10:43)
[2023-06-23] MEDS ORDERED: ATROPINE SULF 1 MG/10 ML SYR IV ONE (10:43)
[2023-06-23] MEDS ORDERED: CLOPIDOGREL 75 MG TABLET ONE (10:43)
[2023-06-23] MEDS ORDERED: VERAPAMIL HCL 10 MG/4 ML VIAL IV ONE (10:43)
[2023-06-23] MEDS ORDERED: TICAGRELOR 90 MG TABLET PO ONE (10:43)
[2023-06-23] MEDS ORDERED: HEPARIN 10,000 UNIT/10 ML VIAL IV ONE (10:43)
[2023-06-23] MEDS ORDERED: FENTANYL CITR 100 MCG/2 ML ONE (10:44)
[2023-06-23] MEDS ORDERED: HEPA 1000U/500MLS 1,000 UNIT/500 ML BAG IV ONE (11:32)
== END 2023-06-23 12:15 | disposition home or self-care (01) ==
LOC: CCL 09:00
PROVIDERS: ATTEND Internal Medicine
DX: R94.39 Abnormal result of other cardiovascular function study (principal); I70.223 Atherosclerosis of native arteries of extremities with rest pain, bilateral legs; Z53.8 Procedure and treatment not carried out for other reasons
CPT/HCPCS: 36415; 71046; 80048; 85025; 85610; 85730; 93005; J0461; J1644; J2001; J2250; J3010; J7040

== ENCOUNTER 2023-06-29 10:00 | Day surgery (SDC) | payer OTHER ==
[2023-06-29 11:25] VITALS: TEMP 98.2
[2023-06-29] MEDS ORDERED: LIDOCAINE 1% 20 ML MDV ONE (11:39)
[2023-06-29] MEDS ORDERED: HEPARIN 5000 UNIT/ML 1 ML VIAL ONE (11:39)
[2023-06-29] MEDS ORDERED: MIDAZOLAM HCL 2 MG/2 ML INJ ONE (11:39)
[2023-06-29] MEDS ORDERED: FENTANYL CITR 100 MCG/2 ML ONE (11:39)
[2023-06-29] MEDS ORDERED: HEPA 1000U/500MLS 2,000 UNIT/1,000 ML BAG IV ONE (11:39)
[2023-06-29] MEDS ORDERED: VERAPAMIL HCL 10 MG/4 ML VIAL IV ONE (11:39)
[2023-06-29] MEDS ORDERED: ATROPINE SULF 1 MG/10 ML SYR IV ONE (11:40)
[2023-06-29] MEDS ORDERED: NITROGLYCERIN 100 MCG/ML SYR (for cath lab use only) IV ONE (11:40)
[2023-06-29 15:54] VITALS: BP 130/59; O2SAT 99
--- NOTE | 2023-06-29 20:12 | OP ---
Date of Procedure: 06/29/2023 Surgeon: MILLIE BENNETT Procedures Planned: Coronary angiogram and peripheral angiogram. Description Of Procedure: After risks, benefits, alternatives were explained, patient agreed to proc eed, and signed informal consent. Patient was brought into the cardiac catheterization laboratory, p repped and draped in a sterile fashion and then I tried to get a radial access. She has heavily calc ified artery and I could not pass any catheter through and also she has severe peripheral vascular di sease in both common femoral arteries, I accessed the right one and I could not pass any wires, so pr ocedure was canceled due to inability to obtain an adequate access. /NAN Voice ID: [id number] Report ID: [id number]
== END 2023-06-29 15:41 | disposition home or self-care (01) ==
LOC: CCL 10:00
PROVIDERS: ATTEND Internal Medicine
DX: I25.10 Atherosclerotic heart disease of native coronary artery without angina pectoris (principal); I73.9 Peripheral vascular disease, unspecified; Z53.8 Procedure and treatment not carried out for other reasons; Z88.2 Allergy status to sulfonamides; Z88.3 Allergy status to other anti-infective agents; Z88.5 Allergy status to narcotic agent
CPT/HCPCS: 75630; 93458; 76937; C1893; Q9966; J1644; J2001; J2250; J3010; J0461

== ENCOUNTER 2024-03-26 21:22 | Emergency (ER) | payer OTHER ==
--- OUTSIDE RECORDS SUMMARY | 2024-03-26 21:29 | XMS REPORT | Continuity of Care Document ---
Author Name Unknown Address [address] [facility] [place] [address] [facility] thconnect Address [address] [facility] [address] [place] [address] Care Team Providers Care Clutch Mechanic Name Role Phone Benito Nugent Primary Care Physician [phone] ALESSANDRO YEBOAH Attending Clinician Unavailable Luis Carlos Huggins Attending Clinician UnavailAlessandro Shah MD Attending Clinician [phone] Doctor Unassigned, [place] Chip Attending Clinician Luis Eduardo Montenegro [facility] Sylvester ONEILL Attending Clinician Donna Tam Attending Clinician Unavailable Tanvir Prasad Attending Clinician Unavailable Paty Marrero MD Attending Clinician Benito Cevallos Admitting Clinician Unavailable Donna Tam Admitting Clinician Unavailable Tanvir Prasad Admitting Clinician Unavailable Payers Payer Name Policy Type Policy Number Effective Date Expirati on Date Source [employer] MANAGED MEDICARE [id number] 2022 00:00:00 BC[facility] [id number] 2012 00:00:00 Problems Condition Name Condition Details Condition Category Status Onset Date Resolution Date Last Treatment Date Treating Clinician Comments Source Hypoglycem ia Hypoglycem ia Disease Active 08-11 00:00: 00 [facility] Vitamin D deficiency Vitamin D deficiency Disease Active 01-03 00:00: 00 [facility] Insulin pump titration Insulin pump titration Disease Active 2015-11 00:00: 00 [facility] Insulin pump status Insulin pump status Disease Active 2015-11 00:00: 00 [facility] CKD (chronic kidney disease) stage 3, GFR 30-59 ml/min CKD (chronic kidney disease) stage 3, GFR 30-59 ml/min Disease Active 2015-11 00:00: 00 [facility] Hyperkalem ia Hyperkalem ia Disease Active 2015-11 00:00: 00 [facility] CKD (chronic kidney disease) CKD (chronic kidney disease) Disease Active 08-12 00:00: 00 [facility] Cough Cough Disease Active 01-13 00:00: 00 [facility] Renal insufficie ncy Renal insufficie ncy Disease Active 03-26 00:00: 00 [facility] Diabetes mellitus with background retinopath y Diabetes mellitus with background retinopath y Disease Active 08-01 00:00: 00 Overview: Formattin g of this note might be different from the original. 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 Dx in 1961 [facility] Essential hypertensi on, benign Essential hypertensi on, benign Disease Active [facility] HLD (hyperlipi demia) HLD (hyperlipi demia) Disease Active Overview: Formattin g of this note might be different from the original. ICD10 Diagnosis Term V[employer]er [employer] Utility [facility] Allergies, Adverse Reactions, Alerts Allergy Name Allergy Type Status Severity Reaction(s) Onset Date Inactive Date Treating Clinician Comments Source codeine DA Active PR NAUSEA 2022-11 0 00:00: 00 [facility] sulfamet hoxazole DA Active SV ANAPHYLAXIS 2022-11 0 00:00: 00 [facility] trimetho prim DA Active SV ANAPHYLAXIS 2022-11 0 00:00: 00 [facility] Sulfa (Sulfona mide Antibiot ics) DA Active SV rash 07-11 00:00: 00 [facility] codeine DA Active MO NAUSEA 07-11 00:00: 00 [facility] Codeine Propensi ty to adverse reaction s Active Nausea Only 08-01 00:00: 00 [facility] Sulfa (Sulfona mide Antibiot ics) Propensi ty to adverse reaction s Active Shortness of Breath 08-01 00:00: 00 swelling [facility] CODEINE DRUG INGREDI Active NAUSEA ONLY 08-01 00:00: 00 [facility] SULFA (SULFONA MIDE ANTIBIOT ICS) Drug Class Active SOB 08-01 00:00: 00 [facility] Social History Social Habit Start Date Stop Date Quantity Comments Source Gender identity [facility] Alcohol intake 2024-02-21 00:00:00 2024-02-21 00:00:00 Current non-drinker of alcohol (finding) [facility] History of Social function 2024-02-21 00:00:00 2024-02-21 00:00:00 [facility] Exposure to SARS-CoV-2 (event) 2023-03-12 00:00:00 2023-03-22 11:32:00 Not sure [facility] Tobacco use and exposure 2022-06-09 00:00:00 2022-06-09 00:00:00 Smokeless tobacco non-user [facility] History of tobacco use 1994-08-01 00:00:00 Cigarette Smoker [facility] Sex Assigned At 1955 00:00:00 1955 00:00:00 [facility] Smoking Status Start Date Stop Date Source Ex-smoker 2022-06-09 00:00:00 2022-06-09 00:00:[address] [facility] Medications Ordered Medication Name Filled Medication Name Start Date Stop Date Current Medication? Ordering Clinician Indication Dosage Frequency Signature (SIG) Comments Components Source insulin pump cart,cont inf,RF (OMNIPOD CLASSIC PODS, GEN 3,) [facility] 02-20 00:00: 00 Yes [id number] 1{kit} inject 1 Kit under the skin every 72 (seventy-t wo) hours. [facility] Blood-Gluco se Sensor (FREESTYLE FABIENNE 3 SENSOR) Alayna 02-20 00:00: 00 Yes [id number] Use as directed every 2 weeks E10.65 [facility] Blood-Gluco se Meter,Dieudonne nuous (FREESTYLE FABIENNE 3 READER) Misc 02-20 00:00: 00 02-21 04:59 :00 Yes [id number] 1{each} inject 1 Each under the skin once now for 1 dose. Use as directed with sensor E10.65 [facility] insulin aspart, niacinamide , (FIASP U-100 INSULIN) 100 unit/mL Soln 11-16 00:00: 00 Yes [id number] 50U inject 50 Units under the skin in the morning. Use via insulin pump. Max daily dose 50 units [facility] blood sugar diagnostic (FREESTYLE TEST) strip 2022-11 00:00: 00 Yes [id number] USE DIRECTED TIDAC DX:E10.39 [facility] flash glucose sensor (FREESTYLE FABIENNE 2 SENSOR) Kit 2022-11 00:00: 00 02-20 00:00 :00 No 1{each} Apply 1 Each to skin every 14 (fourteen) days. Dx E11.65 [facility] insulin pump cart,cont inf,RF (OMNIPOD CLASSIC PODS, GEN 3,) [facility] 2022-11 0- 00:00: 02-20 00:00 :00 No [id number] 1{kit} inject 1 Kit under the skin every 72 (seventy-t wo) hours. [facility] flash glucose sensor (FREESTYLE FABIENNE 2 SENSOR) Kit -04 00:00: 00 10-24 00:00 :00 No 1{each} Apply 1 Each to skin every 14 (fourteen) days. Dx E11.65 [facility] insulin lispro, human, (HUMALOG U-100 INSULIN) 100 unit/mL injection 03-27 00:00: 00 11-16 00:00 :00 No [id number] Use via insulin pump. Max daily dose 50 units [facility] insulin aspart RAPID (NOVOLOG U-100 INSULIN ASPART) 100 unit/mL injection 03-22 00:00: 00 03-27 00:00 :00 No [id number] USE IN INSULIN PUMP, UP TO 50 UNITS DAILY [facility] OMNIPOD CLASSIC PODS, GEN 3, Crtg 03-09 00:00: 00 Yes [id number] USE 1 POD SUBCUTANEO USLY EVERY 72 HOURS [facility] OMNIPOD CLASSIC PODS, GEN 3, Crtg 03-09 00:00: 00 09-13 00:00 :00 No [id number] USE 1 POD SUBCUTANEO USLY EVERY 72 HOURS [facility] insulin aspart RAPID (NOVOLOG U-100 INSULIN ASPART) 100 unit/mL injection 03-06 00:00: 00 03-22 00:00 :00 No [id number] USE IN INSULIN PUMP, UP TO 50 UNITS DAILY [facility] insulin aspart RAPID (NOVOLOG U-100 INSULIN ASPART) 100 unit/mL injection 02-21 00:00: 00 03-06 00:00 :00 No [id number] USE IN INSULIN PUMP, UP TO 50 UNITS DAILY [facility] famotidine 40 mg tablet 4-07 00:00: 00 Yes 40mg Take 1 tablet by mouth at bedtime. [facility] bumetanide 2 mg tablet 01-25 00:00: 00 Yes TAKE 1.5 TABLET TWICE DAILY [facility] midodrine 5 mg tablet 01-25 00:00: 00 Yes 5mg Take 1 tablet by mouth in the morning and 1 tablet at noon and 1 tablet in the evening. [facility] flash glucose scanning reader (FREESTYLE FABIENNE 2 READER) Misc 11-20 00:00: 00 02-20 00:00 :00 No 1{each} 1 Each SEE-INSTRU CTIONS. [facility] flash glucose sensor (FREESTYLE FABIENNE 2 SENSOR) Kit 11-20 00:00: 00 04-17 00:00 :00 No 1{each} Apply 1 Each to skin every 14 (fourteen) days. Dx E11.65 [facility] insulin pump cart,cont inf,RF (OMNIPOD CLASSIC PODS, GEN 3,) Crtg 2021-11 00:00: 00 03-09 00:00 :00 No [id number] 1{each} inject 1 Each under the skin every 72 (seventy-t wo) hours. E10.65 [facility] TOUJEO SOLOSTAR U-300 INSULIN 300 unit/mL (1.5 mL) InPn 2021-11 00:00: 00 Yes [id number] 16U inject 16 Units under the skin in the morning. E10.65 [facility] Insulin [place], Disposable, (BD FIORELLA 2ND GEN PEN NEEDLE) 32 gauge x 5/32" Ndle 2021-11 00:00: 00 Yes [id number] Use as directed 4 times a day E10.65 [facility] Insulin [place], Disposable, (BD FIORELLA 2ND GEN PEN NEEDLE) 32 gauge x 5/32" Ctle 2021-11 00:00: 00 Yes [id number] Use as directed 4 times a day E10.65 [facility] insulin aspart U-100 (NOVOLOG FLEXPEN U-100 INSULIN) 100 unit/mL (3 mL) injection 2021-11 00:00: 00 03-27 00:00 :00 No [id number] Take novolog 4-6 units before each meal per sliding scale up to 20 units per day E10.65 [facility] flash glucose sensor (FREESTYLE FABIENNE 2 SENSOR) Kit 2021-11 00:00: 00 11-20 00:00 :00 No 1{each} Apply 1 Each to skin every 14 (fourteen) days. Dx E11.65 [facility] insulin aspart RAPID (NOVOLOG U-100 INSULIN ASPART) 100 unit/mL injection 2021-11 00:00: 00 02-21 00:00 :00 No [id number] USE IN INSULIN PUMP, UP TO 50 UNITS DAILY [facility] insulin pump cart,auto,B T-cntr (OMNIPOD 5 G6 INTRO KIT, GEN 5,) [facility] 8 00:00: 00 11-02 00:00 :00 No 1{each} inject 1 Each under the skin SEE-INSTRU CTIONS. [facility] insulin pump cart,automa merlene,BT (OMNIPOD 5 G6 POD, GEN 5,) [facility] 06-23 00:00: 00 11-02 00:00 :00 No 1{each} inject 1 Each under the skin every 72 (seventy-t wo) hours. [facility] FREESTYLE FABIENNE 2 SENSOR Kit 7-27 00:00: 00 10-30 00:00 :00 No [id number] 1{each} Apply 1 Each to skin every 14 (fourteen) days. Dx E11.65 [facility] insulin aspart RAPID (NOVOLOG U-100 INSULIN ASPART) 100 unit/mL injection 4-26 00:00: 00 08-30 00:00 :00 No [id number] USE IN INSULIN PUMP, UP TO 50 UNITS DAILY [facility] blood sugar diagnostic (FREESTYLE TEST) strip 2020-11 00:00: 00 Yes [id number] USE DIRECTED [facility] blood sugar diagnostic (FREESTYLE TEST) strip 2020-11 00:00: 00 10-24 00:00 :00 No [id number] USE DIRECTED [facility] Diclofenac Sodium 1 % gel 9 00:00: 00 11-02 00:00 :00 No APPLY TO AFFECTED JOINT THREE TIMES A DAY NEEDED [facility] carvediloL 25 mg tablet 06-15 00:00: 00 02-20 00:00 :00 No 25mg Take 25 mg by mouth 2 (two) times daily. [facility] flash glucose scanning reader (FREESTYLE FABIENNE 2 READER) Misc 04-15 00:00: 00 11-20 00:00 :00 No 1{each} 1 Each SEE-INSTRU CTIONS. [facility] flash glucose sensor (FREESTYLE FABIENNE 2 SENSOR) Kit 04-15 00:00: 00 09-25 00:00 :00 No 1{each} 1 Each every 14 (fourteen) days. [facility] insulin aspart RAPID (NOVOLOG U-100 INSULIN ASPART) 100 unit/mL injection 03-27 00:00: 00 09-25 00:00 :00 No [id number] US IN INSULIN PUMP, UP TO 50 UNITS DAILY [facility] DEXCOM G6 SENSOR Alayna 03-25 00:00: 00 06-09 00:00 :00 No [id number] Use as directed one for 10 days [facility] DEXCOM G6 TRANSMITTER Alayna 03-25 00:00: 00 06-09 00:00 :00 No [id number] Use as directed One for 3 months [facility] aspirin 81 mg chewable tablet 2019-11 11:48: 00 Yes 81mg Take 81 mg by mouth daily. [facility] methazolami de (NEPTAZANE) 50 mg tablet 2019-11 11:48: 00 Yes 50mg Take 50 mg by mouth daily. [facility] dorzolamide HCl (DORZOLAMID E OPHTHALMIC) 2019-11 11:48: [address] in each eye. [facility] glucagon (GLUCAGON EMERGENCY KIT, HUMAN,) 1 mg injection 07-01 00:00: 00 Yes [id number] 1mg 1 mg by Intramuscu lar route as needed (hypoglyce padma and unconsciou s). [facility] blood sugar diagnostic (FREESTYLE TEST) strip 01-22 00:00: 00 10-20 00:00 :00 No [id number] Use as directed [facility] TRAVATAN Z 0.004 % ophthalmic drops 12-19 00:00: 00 Yes PUT 1 DROP INTO BOTH EYES AT BEDTIME [facility] Blood Glucose Control, Normal (GLUCOSE CONTROL) [facility] 2015-11 00:00: 00 Yes Use as directed, DX:E11.9 [facility] Blood Glucose Control, Normal (GLUCOSE CONTROL) [facility] 2015-11 00:00: 00 Yes Use as directed, DX:E11.9 [facility] atorvastati n (LIPITOR) 40 mg tablet 2015-11 00:00: 00 Yes [id number] 40mg Take 1 tablet by mouth at bedtime. [facility] amLODIPine (NORVASC) 10 mg tablet 2015-11 00:00: 00 11-02 00:00 :00 No [id number] 10mg Take 1 tablet by mouth daily. [facility] lisinopril (PRINIVIL,Z ESTRIL) 20 mg tablet 07-21 00:00: 00 11-02 00:00 :00 No [id number] 20mg Take 1 tablet by mouth daily. [facility] DIABETIC SUPPLIES, MISCELLAN. IN VITRO SOLN 01-12 00:00: 00 Yes use 5-6 times daily as directed. [facility] DIABETIC SUPPLIES, MISCELLAN. IN VITRO SOLN 01-12 00:00: 00 Yes use 5-6 times daily as directed. [facility] Immunizations Ordered Immunization Name Filled Immunization Name Date Status Comments Source SARS-COV-2 COVID-19 MODERNA VACCINE 2021-01-17 00:00:00 Completed [facility] SARS-COV-2 COVID-19 MODERNA VACCINE 2021-01-17 00:00:00 Completed [facility] SARS-COV-2 COVID-19 MODERNA VACCINE 2021-01-17 00:00:00 Completed [facility] SARS-COV-2 COVID-19 MODERNA VACCINE 2021-01-17 00:00:00 Completed [facility] SARS-COV-2 COVID-19 MODERNA VACCINE 2021-01-17 00:00:00 Completed [facility] SARS-COV-2 COVID-19 MODERNA 12+ YRS VACCINE 2021-01-17 00:00:00 Completed [facility] SARS-COV-2 COVID-19 MODERNA 12+ YRS VACCINE 2021-01-17 00:00:00 Completed [facility] SARS-COV-2 COVID-19 MODERNA 12+ YRS VACCINE 2021-01-17 00:00:00 Completed [facility] SARS-COV-2 COVID-19 MODERNA 12+ YRS VACCINE 2021-01-17 00:00:00 Completed [facility] SARS-COV-2 COVID-19 MODERNA 12+ YRS VACCINE 2021-01-17 00:00:00 Completed [facility] SARS-COV-2 COVID-19 MODERNA 12+ YRS VACCINE 2021-01-17 00:00:00 Completed [facility] SARS-COV-2 COVID-19 MODERNA 12+ YRS VACCINE 2021-01-17 00:00:00 Completed [facility] SARS-COV-2 COVID-19 MODERNA 12+ YRS VACCINE 2021-01-17 00:00:00 Completed [facility] SARS-COV-2 COVID-19 MODERNA 12+ YRS VACCINE 2021-01-17 00:00:00 Completed [facility] SARS-COV-2 COVID-19 MODERNA 12+ YRS VACCINE 2021-01-17 00:00:00 Completed [facility] SARS-COV-2 COVID-19 MODERNA 12+ YRS VACCINE 2021-01-17 00:00:00 Completed [facility] SARS-COV-2 COVID-19 MODERNA 12+ YRS VACCINE 2021-01-17 00:00:00 Completed [facility] SARS-COV-2 COVID-19 MODERNA 12+ YRS VACCINE 2021-01-17 00:00:00 Completed [facility] SARS-COV-2 COVID-19 MODERNA 12+ YRS VACCINE 2021-01-17 00:00:00 Completed [facility] SARS-COV-2 COVID-19 MODERNA 12+ YRS VACCINE 2021-01-17 00:00:00 Completed [facility] SARS-COV-2 COVID-19 MODERNA 12+ YRS VACCINE 2021-01-17 00:00:00 Completed [facility] SARS-COV-2 COVID-19 MODERNA 12+ YRS VACCINE 2021-01-17 00:00:00 Completed [facility] SARS-COV-2 COVID-19 MODERNA 12+ YRS VACCINE 2021-01-17 00:00:00 Completed [facility] SARS-COV-2 COVID-19 MODERNA 12+ YRS VACCINE 2021-01-17 00:00:00 Completed [facility] SARS-COV-2 COVID-19 MODERNA 12+ YRS VACCINE 2021-01-17 00:00:00 Completed [facility] SARS-COV-2 COVID-19 MODERNA 12+ YRS VACCINE 2021-01-17 00:00:00 Completed [facility] SARS-COV-2 COVID-19 MODERNA 12+ YRS VACCINE 2021-01-17 00:00:00 Completed [facility] SARS-COV-2 COVID-19 MODERNA 12+ YRS VACCINE 2021-01-17 00:00:00 Completed [facility] SARS-COV-2 COVID-19 MODERNA 12+ YRS VACCINE 2021-01-17 00:00:00 Completed [facility] SARS-COV-2 COVID-19 MODERNA 12+ YRS VACCINE 2021-01-17 00:00:00 Completed [facility] SARS-COV-2 COVID-19 MODERNA 12+ YRS VACCINE 2021-01-17 00:00:00 Completed [facility] SARS-COV-2 COVID-19 MODERNA 12+ YRS VACCINE 2021-01-17 00:00:00 Completed [facility] SARS-COV-2 COVID-19 MODERNA 12+ YRS VACCINE 2021-01-17 00:00:00 Completed [facility] SARS-COV-2 COVID-19 MODERNA 12+ YRS VACCINE 2021-01-17 00:00:00 Completed [facility] SARS-COV-2 COVID-19 MODERNA VACCINE 2020-12-20 00:00:00 Completed [facility] SARS-COV-2 COVID-19 MODERNA VACCINE 2020-12-20 00:00:00 Completed [facility] SARS-COV-2 COVID-19 MODERNA VACCINE 2020-12-20 00:00:00 Completed [facility] SARS-COV-2 COVID-19 MODERNA VACCINE 2020-12-20 00:00:00 Completed [facility] SARS-COV-2 COVID-19 MODERNA VACCINE 2020-12-20 00:00:00 Completed [facility] SARS-COV-2 COVID-19 MODERNA 12+ YRS VACCINE 2020-12-20 00:00:00 Completed [facility] SARS-COV-2 COVID-19 MODERNA 12+ YRS VACCINE 2020-12-20 00:00:00 Completed [facility] SARS-COV-2 COVID-19 MODERNA 12+ YRS VACCINE 2020-12-20 00:00:00 Completed [facility] SARS-COV-2 COVID-19 MODERNA 12+ YRS VACCINE 2020-12-20 00:00:00 Completed [facility] SARS-COV-2 COVID-19 MODERNA 12+ YRS VACCINE 2020-12-20 00:00:00 Completed [facility] SARS-COV-2 COVID-19 MODERNA 12+ YRS VACCINE 2020-12-20 00:00:00 Completed [facility] SARS-COV-2 COVID-19 MODERNA 12+ YRS VACCINE 2020-12-20 00:00:00 Completed [facility] SARS-COV-2 COVID-19 MODERNA 12+ YRS VACCINE 2020-12-20 00:00:00 Completed [facility] SARS-COV-2 COVID-19 MODERNA 12+ YRS VACCINE 2020-12-20 00:00:00 Completed [facility] SARS-COV-2 COVID-19 MODERNA 12+ YRS VACCINE 2020-12-20 00:00:00 Completed [facility] SARS-COV-2 COVID-19 MODERNA 12+ YRS VACCINE 2020-12-20 00:00:00 Completed [facility] SARS-COV-2 COVID-19 MODERNA 12+ YRS VACCINE 2020-12-20 00:00:00 Completed [facility] SARS-COV-2 COVID-19 MODERNA 12+ YRS VACCINE 2020-12-20 00:00:00 Completed [facility] SARS-COV-2 COVID-19 MODERNA 12+ YRS VACCINE 2020-12-20 00:00:00 Completed [facility] SARS-COV-2 COVID-19 MODERNA 12+ YRS VACCINE 2020-12-20 00:00:00 Completed [facility] SARS-COV-2 COVID-19 MODERNA 12+ YRS VACCINE 2020-12-20 00:00:00 Completed [facility] SARS-COV-2 COVID-19 MODERNA 12+ YRS VACCINE 2020-12-20 00:00:00 Completed [facility] SARS-COV-2 COVID-19 MODERNA 12+ YRS VACCINE 2020-12-20 00:00:00 Completed [facility] SARS-COV-2 COVID-19 MODERNA 12+ YRS VACCINE 2020-12-20 00:00:00 Completed [facility] SARS-COV-2 COVID-19 MODERNA 12+ YRS VACCINE 2020-12-20 00:00:00 Completed [facility] SARS-COV-2 COVID-19 MODERNA 12+ YRS VACCINE 2020-12-20 00:00:00 Completed [facility] SARS-COV-2 COVID-19 MODERNA 12+ YRS VACCINE 2020-12-20 00:00:00 Completed [facility] SARS-COV-2 COVID-19 MODERNA 12+ YRS VACCINE 2020-12-20 00:00:00 Completed [facility] SARS-COV-2 COVID-19 MODERNA 12+ YRS VACCINE 2020-12-20 00:00:00 Completed [facility] SARS-COV-2 COVID-19 MODERNA 12+ YRS VACCINE 2020-12-20 00:00:00 Completed [facility] SARS-COV-2 COVID-19 MODERNA 12+ YRS VACCINE 2020-12-20 00:00:00 Completed [facility] SARS-COV-2 COVID-19 MODERNA 12+ YRS VACCINE 2020-12-20 00:00:00 Completed [facility] SARS-COV-2 COVID-19 MODERNA 12+ YRS VACCINE 2020-12-20 00:00:00 Completed [facility] SARS-COV-2 COVID-19 MODERNA 12+ YRS VACCINE 2020-12-20 00:00:00 Completed [facility] Influenza Virus Vaccine Quad .5 mL IM 6+ MO 2020-07-02 00:00:00 Completed [facility] Influenza Virus Vaccine Quad .5 mL IM 6+ MO 2020-07-02 00:00:00 Completed [facility] Influenza Virus Vaccine Quad .5 mL IM 6+ MO 2020-07-02 00:00:00 Completed [facility] Influenza Virus Vaccine Quad .5 mL IM 6+ MO 2020-07-02 00:00:00 Completed [facility] Influenza Virus Vaccine Quad .5 mL IM 6+ MO 2020-07-02 00:00:00 Completed [facility] Influenza Virus Vaccine Quad .5 mL IM 6+ MO 2020-07-02 00:00:00 Completed [facility] Influenza Virus Vaccine Quad .5 mL IM 6+ MO 2020-07-02 00:00:00 Completed [facility] Influenza Virus Vaccine Quad .5 mL IM 6+ MO 2020-07-02 00:00:00 Completed [facility] Influenza Virus Vaccine Quad .5 mL IM 6+ MO 2020-07-02 00:00:00 Completed [facility] Influenza Virus Vaccine Quad .5 mL IM 6+ MO 2020-07-02 00:00:00 Completed [facility] Influenza Virus Vaccine Quad .5 mL IM 6+ MO 2020-07-02 00:00:00 Completed [facility] Influenza Virus Vaccine Quad .5 mL IM 6+ MO 2020-07-02 00:00:00 Completed [facility] Influenza Virus Vaccine Quad .5 mL IM 6+ MO 2020-07-02 00:00:00 Completed [facility] Influenza Virus Vaccine Quad .5 mL IM 6+ MO 2020-07-02 00:00:00 Completed [facility] Influenza Virus Vaccine Quad .5 mL IM 6+ MO 2020-07-02 00:00:00 Completed [facility] Influenza Virus Vaccine Quad .5 mL IM 6+ MO 2020-07-02 00:00:00 Completed [facility] Influenza Virus Vaccine Quad .5 mL IM 6+ MO 2020-07-02 00:00:00 Completed [facility] Influenza Virus Vaccine Quad .5 mL IM 6+ MO 2020-07-02 00:00:00 Completed [facility] Influenza Virus Vaccine Quad .5 mL IM 6+ MO 2020-07-02 00:00:00 Completed [facility] Influenza Virus Vaccine Quad .5 mL IM 6+ MO 2020-07-02 00:00:00 Completed [facility] Influenza Virus Vaccine Quad .5 mL IM 6+ MO 2020-07-02 00:00:00 Completed [facility] Influenza Virus Vaccine Quad .5 mL IM 6+ MO 2020-07-02 00:00:00 Completed [facility] Influenza Virus Vaccine Quad .5 mL IM 6+ MO 2020-07-02 00:00:00 Completed [facility] Influenza Virus Vaccine Quad .5 mL IM 6+ MO 2020-07-02 00:00:00 Completed [facility] Influenza Virus Vaccine Quad .5 mL IM 6+ MO 2020-07-02 00:00:00 Completed [facility] Influenza Virus Vaccine Quad .5 mL IM 6+ MO 2020-07-02 00:00:00 Completed [facility] Influenza Virus Vaccine Quad .5 mL IM 6+ MO 2020-07-02 00:00:00 Completed [facility] Influenza Virus Vaccine Quad .5 mL IM 6+ MO 2020-07-02 00:00:00 Completed [facility] Influenza Virus Vaccine Quad .5 mL IM 6+ MO 2020-07-02 00:00:00 Completed [facility] Influenza Virus Vaccine Quad .5 mL IM 6+ MO 2020-07-02 00:00:00 Completed [facility] Influenza Virus Vaccine Quad .5 mL IM 6+ MO 2020-07-02 00:00:00 Completed [facility] Influenza Virus Vaccine Quad .5 mL IM 6+ MO 2020-07-02 00:00:00 Completed [facility] Influenza Virus Vaccine Quad .5 mL IM 6+ MO 2020-07-02 00:00:00 Completed [facility] Influenza Virus Vaccine Quad .5 mL IM 6+ MO 2020-07-02 00:00:00 Completed [facility] Influenza Virus Vaccine Quad .5 mL IM 6+ MO (FLUZONE/FLULAVAL/F LUARIX) Unknown Completed [facility] SARS-COV-2 COVID-19 MODERNA 12+ YRS VACCINE Unknown Completed [facility] SARS-COV-2 COVID-19 MODERNA 12+ YRS VACCINE Unknown Completed [facility] Influenza Virus Vaccine Quad .5 mL IM 6+ MO (FLUZONE/FLULAVAL/F LUARIX) Unknown Completed [facility] SARS-COV-2 COVID-19 MODERNA 12+ YRS VACCINE Unknown Completed [facility] SARS-COV-2 COVID-19 MODERNA 12+ YRS VACCINE Unknown Completed [facility] Influenza Virus Vaccine Quad .5 mL IM 6+ MO (FLUZONE/FLULAVAL/F LUARIX) Unknown Completed [facility] SARS-COV-2 COVID-19 MODERNA 12+ YRS VACCINE Unknown Completed [facility] SARS-COV-2 COVID-19 MODERNA 12+ YRS VACCINE Unknown Completed [facility] Influenza Virus Vaccine Quad .5 mL IM 6+ MO (FLUZONE/FLULAVAL/F LUARIX) Unknown Completed [facility] SARS-COV-2 COVID-19 MODERNA 12+ YRS VACCINE Unknown Completed [facility] SARS-COV-2 COVID-19 MODERNA 12+ YRS VACCINE Unknown Completed [facility] Influenza Virus Vaccine Quad .5 mL IM 6+ MO (FLUZONE/FLULAVAL/F LUARIX) Unknown Completed [facility] SARS-COV-2 COVID-19 MODERNA 12+ YRS VACCINE Unknown Completed [facility] SARS-COV-2 COVID-19 MODERNA 12+ YRS VACCINE Unknown Completed [facility] Influenza Virus Vaccine Quad .5 mL IM 6+ MO (FLUZONE/FLULAVAL/F LUARIX) Unknown Completed [facility] SARS-COV-2 COVID-19 MODERNA 12+ YRS VACCINE Unknown Completed [facility] SARS-COV-2 COVID-19 MODERNA 12+ YRS VACCINE Unknown Completed [facility] Influenza Virus Vaccine Quad .5 mL IM 6+ MO (FLUZONE/FLULAVAL/F LUARIX) Unknown Completed [facility] SARS-COV-2 COVID-19 MODERNA 12+ YRS VACCINE Unknown Completed [facility] SARS-COV-2 COVID-19 MODERNA 12+ YRS VACCINE Unknown Completed [facility] Influenza Virus Vaccine Quad .5 mL IM 6+ MO (FLUZONE/FLULAVAL/F LUARIX) Unknown Completed [facility] SARS-COV-2 COVID-19 MODERNA 12+ YRS VACCINE Unknown Completed [facility] SARS-COV-2 COVID-19 MODERNA 12+ YRS VACCINE Unknown Completed [facility] Influenza Virus Vaccine Quad .5 mL IM 6+ MO (FLUZONE/FLULAVAL/F LUARIX) Unknown Completed [facility] SARS-COV-2 COVID-19 MODERNA 12+ YRS VACCINE Unknown Completed [facility] SARS-COV-2 COVID-19 MODERNA 12+ YRS VACCINE Unknown Completed [facility] Influenza Virus Vaccine Quad .5 mL IM 6+ MO (FLUZONE/FLULAVAL/F LUARIX) Unknown Completed [facility] SARS-COV-2 COVID-19 MODERNA 12+ YRS VACCINE Unknown Completed [facility] SARS-COV-2 COVID-19 MODERNA 12+ YRS VACCINE Unknown Completed [facility] Influenza Virus Vaccine Quad .5 mL IM 6+ MO (FLUZONE/FLULAVAL/F LUARIX) Unknown Completed [facility] SARS-COV-2 COVID-19 MODERNA 12+ YRS VACCINE Unknown Completed [facility] SARS-COV-2 COVID-19 MODERNA 12+ YRS VACCINE Unknown Completed [facility] Influenza Virus Vaccine Quad .5 mL IM 6+ MO (FLUZONE/FLULAVAL/F LUARIX) Unknown Completed [facility] SARS-COV-2 COVID-19 MODERNA 12+ YRS VACCINE Unknown Completed [facility] SARS-COV-2 COVID-19 MODERNA 12+ YRS VACCINE Unknown Completed [facility] Influenza Virus Vaccine Quad .5 mL IM 6+ MO (FLUZONE/FLULAVAL/F LUARIX) Unknown Completed [facility] SARS-COV-2 COVID-19 MODERNA 12+ YRS VACCINE Unknown Completed [facility] SARS-COV-2 COVID-19 MODERNA 12+ YRS VACCINE Unknown Completed [facility] Influenza Virus Vaccine Quad .5 mL IM 6+ MO (FLUZONE/FLULAVAL/F LUARIX) Unknown Completed [facility] SARS-COV-2 COVID-19 MODERNA 12+ YRS VACCINE Unknown Completed [facility] SARS-COV-2 COVID-19 MODERNA 12+ YRS VACCINE Unknown Completed [facility] Influenza Virus Vaccine Quad .5 mL IM 6+ MO (FLUZONE/FLULAVAL/F LUARIX) Unknown Completed [facility] SARS-COV-2 COVID-19 MODERNA 12+ YRS VACCINE Unknown Completed [facility] SARS-COV-2 COVID-19 MODERNA 12+ YRS VACCINE Unknown Completed [facility] Vital Signs Vital Name Observation Time Observation Value Comments S ource Systolic blood pressure 2024-02-21 17:36:00 100 mm[Hg] [facility] Diastolic blood pressure 2024-02-21 17:36:00 63 mm[Hg] [facility] Heart rate 2024-02-21 17:36:00 73 /min Unive [facility] Respiratory rate 2024-02-21 17:36:00 18 /min [facility] Body height 2024-02-21 17:36:00 142.2 cm [facility] Body weight 2024-02-21 17:36:00 59.966 kg [facility] BMI 2024-02-21 17:36:00 29.64 kg/m2 [facility] Oxygen saturation in Arterial blood by Pulse oximetry 2024-02-21 17:36:00 100 /min [facility] Systolic blood pressure 2023-09-13 16:25:00 115 mm[Hg] [facility] Diastolic blood pressure 2023-09-13 16:25:00 69 mm[Hg] [facility] Heart rate 2023-09-13 16:25:00 74 /min [facility] Body weight 2023-09-13 16:25:00 58.242 kg [facility] BMI 2023-09-13 16:25:00 28.79 kg/m2 [facility] Oxygen saturation in Arterial blood by Pulse oximetry 2023-09-13 16:25:00 100 /min [facility] Systolic blood pressure 2023-03-22 16:49:00 103 mm[Hg] [facility] Diastolic blood pressure 2023-03-22 16:49:00 66 mm[Hg] [facility] Heart rate 2023-03-22 16:49:00 85 /min Unive [facility] Respiratory rate 2023-03-22 16:49:00 17 /min [facility] Body height 2023-03-22 16:49:00 142.2 cm [facility] Body weight 2023-03-22 16:49:00 60.691 kg [facility] BMI 2023-03-22 16:49:00 30.00 kg/m2 [facility] Oxygen saturation in Arterial blood by Pulse oximetry 2023-03-22 16:49:00 100 /min [facility] Systolic blood pressure 2022-11-02 19:17:00 92 mm[Hg] [facility] Diastolic blood pressure 2022-11-02 19:17:00 62 mm[Hg] [facility] Heart rate 2022-11-02 19:17:00 87 /min Unive [facility] Body height 2022-11-02 19:17:00 142.2 cm [facility] Body weight 2022-11-02 19:17:00 71.215 kg [facility] BMI 2022-11-02 19:17:00 35.20 kg/m2 [facility] Oxygen saturation in Arterial blood by Pulse oximetry 2022-11-02 19:17:00 96 /min [facility] Procedures Procedure Date / Time Performed Performing Clinician Source POCT HEMOGLOBIN A1C TEST 2024-02-21 17:52:00 David Yeboah [facility] POCT HEMOGLOBIN A1C TEST 2023-09-13 16:25:00 David Yeboah [facility] CONSENT/REFUSAL FOR DIAGNOSIS AND TREATMENT 2023-09-13 16:00:41 Doctor Unassigned, [place] [facility] [id number] 2023-07-25 00:00:00 [facility] [id number] 2023-07-22 00:00:00 CHAAB.01 [facility] [id number] 2023-07-22 00:00:00 CHAAB.01 [facility] [id number] 2023-07-22 00:00:00 [facility] [id number] 2023-07-22 00:00:00 CHAAB.01 [facility] [id number] 2023-07-21 00:00:00 ALDMO [facility] [id number] 2023-07-21 00:00:00 [facility] [id number] 2023-07-21 00:00:00 ALDMO [facility] [id number] 2023-07-21 00:00:00 CHAAB.01 [facility] [id number] 2023-07-21 00:00:00 CHAAB.01 [facility] [id number] 2023-07-20 00:00:00 [facility] [id number] 2023-07-18 00:00:00 [facility] [id number] 2023-07-16 00:00:00 [facility] [id number] 2023-07-15 00:00:00 [facility] [id number] 2023-07-14 00:00:00 [facility] [id number] 2023-07-12 00:00:00 [facility] [id number] 2023-07-12 00:00:00 [facility] [id number] 2023-07-12 00:00:00 [facility] [id number] 2023-07-12 00:00:00 [facility] EXTERNAL PROVIDER RECORDS 2023-05-18 05:01:00 Do ctor Unassigned, [place] [facility] POCT HEMOGLOBIN A1C TEST 2023-03-22 17:03:00 David Yeboah [facility] DIABETES TESTING REPORTS 2023-03-22 05:01:00 Doc kamar Unassigned, [place] [facility] INSURANCE CORRESPONDENCE 2022-11-06 06:01:00 Doc kamar Unassigned, [place] [facility] POCT HEMOGLOBIN A1C TEST 2022-11-02 19:22:00 David Yeboah [facility] INSURANCE CORRESPONDENCE 2022-06-24 05:01:00 Doc kamar Unassigned, [place] [facility] SCANNED LAB RESULTS 2022-04-05 05:01:00 Doctor Luis Eduardo cornelius, [place] [facility] SCANNED LAB RESULTS 2022-03-04 05:01:00 Doctor Luis Eduardo cornelius, [place] [facility] Encounters Start Date/Time End Date/Time Encounter Type Admission Type Attending [facility] Care Department Encounter ID Source 2024-03-22 05:12:00 2024-03-22 05:12:00 Outpatient Luis Carlos Grover [facility] DAYS [id number] [facility] 2024-02-21 13:00:00 2024-02-21 15:30:49 [id number] 2024-02-21 13:00:00 2024-02-21 15:30:49 [facility] 1.2.840.114 350.1.13.10 4.2.7.2.686 [id number] 220 [id number] [facility] 2024-01-26 05:16:00 2024-01-26 05:16:00 Outpatient Luis Carlos Grover [facility] DAYS [id number] [facility] 2023-11-12 00:00:00 2023-11-12 00:00:00 Patient Secure Msg Doctor Unassigned, [place] [facility] 1.2.840.114 350.1.13.10 4.2.7.2.686 [id number] 220 [id number] [facility] 2023-11-02 00:00:00 2023-11-02 00:00:00 [facility] 1.2.840.114 350.1.13.10 4.2.7.2.686 [id number] 220 [id number] [facility] 2023-11-01 00:00:00 2023-11-01 00:00:00 Telephone [facility] NICOLAS?[facility]ARGARITA [facility] 1.2.840.114 350.1.13.10 4.2.7.2.686 [id number] 220 [id number] [facility] 2023-10-27 00:00:00 2023-10-27 00:00:00 [facility] 1.2.840.114 350.1.13.10 4.2.7.2.686 [id number] [facility] 2023-10-24 00:00:00 2023-10-24 00:00:00 Refill [facility] 1.2.840.114 350.1.13.10 4.2.7.2.686 [id number] [id number] [facility] 2023-10-24 00:00:00 2023-10-24 00:00:00 RefSylvester Ashton [facility] 1.2.840.114 350.1.13.10 4.2.7.2.686 [id number] 220 [id number] [facility] 2023-09-15 05:29:00 2023-09-15 05:29:00 Outpatient Luis Carlos Grover [facility] DAYS [id number] [facility] 2023-09-14 00:00:00 2023-09-14 00:00:00 Refill Ob[place]na [facility] 1.84114 350.1.13.10 4.2.7.2.686 [id number] 220 [id number] [facility] 2023-09-14 00:00:00 2023-09-14 00:00:00 Patient Secure Msg Obinna [facility] 1.114 350.1.13.10 4.2.7.2.686 [id number] 220 [id number] [facility] 2023-09-13 11:30:00 2023-09-13 12:25:13 Outpatient R OBINNA [facility] [id number] [facility] 2023-09-13 11:30:00 2023-09-13 12:25:13 Office Visit Obinna [facility] 1.84.114 350.1.13.10 4.2.7.2.686 [id number] 220 [id number] [facility] 2023-09-13 00:00:00 2023-09-13 00:00:00 Orders Only Doctor Unassigned, [place] [facility] 1.114 350.1.13.10 4.2.7.2.686 [id number] [id number] [facility] 2023-09-01 05:28:00 2023-09-02 09:43:00 Inpatient Donna Ramirez [facility] MEDI.01 [id number] [facility] 2023-07-12 12:07:00 2023-07-26 11:20:00 Inpatient Tanvir Bacon [facility] INTE [id number] [facility] 2023-05-31 00:00:00 2023-05-31 00:00:00 Patient Secure Msg Doctor Unassigned, [place] [facility] 1.2.840.114 350.1.13.10 4.2.7.2.686 [id number] 220 [id number] [facility] 2023-05-18 00:00:00 2023-05-18 00:00:00 Orders Only Doctor Unassigned, [place] [facility] 1.2840.114 350.1.13.10 4.2.7.2.686 [id number] [id number] [facility] 2023-04-17 00:00:00 2023-04-17 00:00:00 [facility] 1.2840.114 350.1.13.10 4.2.7.2.686 [id number] [facility] 2023-03-22 12:00:00 2023-03-22 13:02:19 Outpatient R YEBOAH [facility] [id number] [facility] 2023-03-22 12:00:00 2023-03-22 13:02:19 Office Visit Obinna [facility] 1.2840.114 350.1.13.10 4.2.7.2.686 [id number] 220 [id number] [facility] 2023-03-22 00:00:00 2023-03-22 00:00:00 Refill Obinna [facility] 1.2840.114 350.1.13.10 4.2.7.2.686 [id number] 220 [id number] [facility] 2023-03-22 00:00:00 2023-03-22 00:00:00 Orders Only Doctor Unassigned, [place] [facility] 1.2840.114 350.1.13.10 4.2.7.2.686 [id number] [facility] 2023-03-08 00:00:00 2023-03-08 00:00:00 Refill [facility]ICOL[facility]ARGARITA [facility] BUILDING 1.2840.114 350.1.13.10 4.2.7.2.686 [id number] 220 [id number] [facility] 2023-03-06 00:00:00 2023-03-06 00:00:00 Patient Secure Msg [facility] NICOLAS?[facility] 1.2840.114 350.1.13.10 4.2.7.2.686 [id number] 220 [id number] [facility] 2023-03-01 00:00:00 2023-03-01 00:00:00 Refill [facility] 1.840.114 350.1.13.10 4.2.7.2.686 [id number] 220 [id number] [facility] 2023-03-01 00:00:00 2023-03-01 00:00:00 Patient Secure Msg Doctor Unassigned, [place] [facility] 1.840.114 350.1.13.10 4.2.7.2.686 [id number] [facility] 2023-02-23 00:00:00 2023-02-23 00:00:00 Refill [facility] 1.284.114 350.1.13.10 4.2.7.2.686 [id number] [facility] 2023-02-21 00:00:00 2023-02-21 00:00:00 Telephone [facility] N[facility]OL[facility] 1.2840.114 350.1.13.10 4.2.7.2.686 [id number] 220 [id number] [facility] 2022-11-20 00:00:00 2022-11-20 00:00:00 Refill [facility] 1.2.840.114 350.1.13.10 4.2.7.2.686 [id number] [facility] 2022-11-20 00:00:00 2022-11-20 00:00:00 Refill [facility] 1.2.840.114 350.1.13.10 4.2.7.2.686 [id number] 220 [id number] [facility] 2022-11-20 00:00:00 2022-11-20 00:00:00 Patient Secure Msg [facility] 1.2840.114 350.1.13.10 4.2.7.2.686 [id number] 220 [id number] [facility] 2022-11-16 00:00:00 2022-11-16 00:00:00 Telephone [facility] 1.2840.114 350.1.13.10 4.2.7.2.686 [id number] 220 [id number] [facility] 2022-11-06 00:00:00 2022-11-06 00:00:00 Patient [facility] 1.2840.114 350.1.13.10 4.2.7.2.686 [id number] 220 [id number] [facility] 2022-11-06 00:00:00 2022-11-06 00:00:00 Orders Only Doctor Unassigned, [place] [facility] 1.2840.114 350.1.13.10 4.2.7.2.686 [id number] [id number] [facility] 2022-11-02 13:30:00 2022-11-02 14:17:35 Outpatient R OBINNA [facility] [id number] [facility] 2022-11-02 13:30:00 2022-11-02 14:17:35 [facility] BUILD[facility] 1.2.840.114 350.1.13.10 4.2.7.2.686 [id number] 220 [id number] [facility] 2022-10-30 00:00:00 2022-10-30 00:00:00 Patient Secure Msg [facility] NICOLAS?[facility]ILD[facility] 1.2840.114 350.1.13.10 4.2.7.2.686 [id number] 220 [id number] [facility] 2022-10-30 00:00:00 2022-10-30 00:00:00 Patient Secure M[facility] 1.2840.114 350.1.13.10 4.2.7.2.686 [id number] 220 [id number] [facility] 2022-10-30 00:00:00 2022-10-30 00:00:00 [facility] 1.2840.114 350.1.13.10 4.2.7.2.686 [id number] 220 [id number] [facility] 2022-10-28 00:00:00 2022-10-28 00:00:00 Patient Secure M[facility] 1.2840.114 350.1.13.10 4.2.7.2.686 [id number] [facility] 2022-10-15 00:00:00 2022-10-15 00:00:00 [facility] 1.2.840.114 350.1.13.10 4.2.7.2.686 [id number] 220 [id number] [facility] 2022-09-09 00:00:00 2022-09-09 00:00:00 Telephone Obinna [facility] OFF[facility] BUILDING 1.2840.114 350.1.13.10 4.2.7.2.686 [id number] 220 [id number] [facility] 2022-08-29 00:00:00 2022-08-29 00:00:00 Refill Obinna [facility] 1.0.114 350.1.13.10 4.2.7.2.686 [id number] 220 [id number] [facility] 2022-07-08 00:00:00 2022-07-08 00:00:00 [facility] 1.840.114 350.1.13.10 4.2.7.2.686 [id number] [facility] 2022-06-24 00:00:00 2022-06-24 00:00:00 Orders Only Doctor Unassigned, [place] [facility] 1.2.840.114 350.1.13.10 4.2.7.2.686 [id number] [facility] 2022-06-23 00:00:00 2022-06-23 00:00:00 [facility] 1.0.114 350.1.13.10 4.2.7.2.686 [id number] 220 [id number] [facility] 2022-06-09 09:30:00 2022-06-09 10:46:39 [facility] [id number] [facility] 2022-06-09 09:30:00 2022-06-09 10:46:39 Office Visit Obinna [facility] 1.2840.114 350.1.13.10 4.2.7.2.686 [id number] [facility] 2022-06-09 09:30:00 2022-06-09 09:30:00 Outpatient R OBINNA [facility] [id number] [facility] 2022-06-09 00:00:00 2022-06-09 00:00:00 Orders Only Doctor Unassigned, [place] [facility] 1.2840.114 350.1.13.10 4.2.7.2.686 [id number] [facility] 2022-04-22 00:00:00 2022-04-22 00:00:00 Telephone Ob[place]na [facility]ILD[facility] 1.2840.114 350.1.13.10 4.2.7.2.686 [id number] 220 [id number] [facility] 2022-04-16 00:00:00 2022-04-16 00:00:00 Telephone Ob[place]na [facility] 1.2840.114 350.1.13.10 4.2.7.2.686 [id number] 220 [id number] [facility] 2022-04-05 00:00:00 2022-04-05 00:00:00 Orders Only Doctor Unassigned, [place] [facility] 1.2840.114 350.1.13.10 4.2.7.2.686 [id number] [facility] 2022-03-29 00:00:00 2022-03-29 00:00:00 [facility] 1.0.114 350.1.13.10 4.2.7.2.686 [id number] [facility] 2022-03-29 00:00:00 2022-03-29 00:00:00 Telephone Ob[place]na [facility] OFF[facility] BUILD[facility] 1.2.840.114 350.1.13.10 4.2.7.2.686 [id number] [facility] 2022-03-29 00:00:00 2022-03-29 00:00:00 Patient Secure Msg Obinna, [facility] 1.2.840.114 350.1.13.10 4.2.7.2.686 [id number] 220 [id number] [facility] 2022-03-16 00:00:00 2022-03-16 00:00:00 Telephone Ob[place]na [facility]ARGARITA [facility] OFF[facility]ILD[facility] 1.2.840.114 350.1.13.10 4.2.7.2.686 [id number] 220 [id number] [facility] 2022-03-09 00:00:00 2022-03-09 00:00:00 Refill Obinna [facility] BUILDING 1.2.840.114 350.1.13.10 4.2.7.2.686 [id number] 220 [id number] [facility] 2022-03-09 00:00:00 2022-03-09 00:00:00 Refill Obinna [facility] BUILDING 1.2.840.114 350.1.13.10 4.2.7.2.686 [id number] 220 [id number] [facility] 2022-03-09 00:00:00 2022-03-09 00:00:00 Refill Obinna [facility] BUILDING 1.2.840.114 350.1.13.10 4.2.7.2.686 [id number] 220 [id number] [facility] 2022-03-09 00:00:00 2022-03-09 00:00:00 Refill Yeboah [facility] BUILDING 1.114 350.1.13.10 4.2.7.2.686 [id number] 220 [id number] [facility] 2022-03-04 00:00:00 2022-03-04 00:00:00 Orders Only Doctor Unassigned, [place] [facility] 1.114 350.1.13.10 4.2.7.2.686 [id number] [facility] 2021-12-22 12:00:00 2021-12-22 13:18:36 Outpatient [facility] [id number] [facility] 2021-12-22 12:00:00 2021-12-22 13:18:36 Office Visit Obinna [facility]?MARGARITA [facility] 1.114 350.1.13.10 4.2.7.2.686 [id number] 220 [id number] [facility] 2021-12-22 00:00:00 2021-12-22 00:00:00 Orders Only Doctor Unassigned, [place] [facility] 1.114 350.1.13.10 4.2.7.2.686 [id number] [facility] 2021-10-20 00:00:00 2021-10-20 00:00:00 Refill Sylvester Montenegro [facility] 1.114 350.1.13.10 4.2.7.2.686 [id number] 220 [id number] [facility] 2021-09-25 00:00:00 2021-09-25 00:00:00 Refill Obinna [facility] BUILDING 1.2.840.114 350.1.13.10 4.2.7.2.686 [id number] 220 [id number] [facility] 2021-09-25 00:00:00 2021-09-25 00:00:00 Refill Obinna [facility] N[facility] BUILDING 1.2.840.114 350.1.13.10 4.2.7.2.686 [id number] 220 [id number] [facility] 2021-09-22 00:00:00 2021-09-22 00:00:00 Refill Obinna [facility] BUILDING 1.2.840.114 350.1.13.10 4.2.7.2.686 [id number] 220 [id number] [facility] 2021-08-11 16:00:00 2021-08-11 16:00:00 Outpatient R OBINNA [facility] [id number] [facility] 2021-08-11 12:47:49 2021-08-11 14:19:45 Office Visit Obinna [facility] Medical [facility] Building 1.2.840.114 350.1.13.10 4.2.7.2.686 [id number] 220 [id number] [facility] 2021-08-11 00:00:00 2021-08-11 00:00:00 Orders Only Doctor Unassigned, [place] [facility] 1.2840.114 350.1.13.10 4.2.7.2.686 [id number] 009 [id number] [facility] 2021-08-11 00:00:00 2021-08-11 00:00:00 Telephone Obinna [facility] Medical Office Building 1.2.840.114 350.1.13.10 4.2.7.2.686 [id number] 220 [id number] [facility] 2021-07-28 10:30:2021-07-28 10:30:00 Outpatient R ALESSANDRO YEBOAH [facility] [id number] [facility] 2021-05-08 00:00:00 2021-05-08 00:00:00 Patient Secure Msg Obinna [facility] BUILDING 1.2.840.114 350.1.13.10 4.2.7.2.686 [id number] 220 [id number] [facility] 2021-05-08 00:00:00 2021-05-08 00:00:00 Patient Secure Msg Obinna [facility] 1.2.840.114 350.1.13.10 4.2.7.2.686 [id number] 220 [id number] [facility] 2021-04-09 00:00:00 2021-04-09 00:00:00 Orders Only Doctor Unassigned, [place] [facility] 1.2.840.114 350.1.13.10 4.2.7.2.686 [id number] 009 [id number] [facility] 2021-04-06 00:00:00 2021-04-06 00:00:00 Telephone Obinna [facility] Building 1.2.840.114 350.1.13.10 4.2.7.2.686 [id number] 220 [id number] [facility] 2021-04-01 00:00:00 2021-04-01 00:00:00 Patient Secure Msg Obinna [facility] Building 1.2.840.114 350.1.13.10 4.2.7.2.686 [id number] 220 [id number] [facility] 2021-03-30 00:00:00 2021-03-30 00:00:00 Refill Obinna [facility] Building 1.2.840.114 350.1.13.10 4.2.7.2.686 [id number] 220 [id number] [facility] 2021-03-27 00:00:00 2021-03-27 00:00:00 Patient Secure Msg Obinna [facility] 1.2.840.114 350.1.13.10 4.2.7.2.686 [id number] 220 [id number] [facility] 2021-03-26 00:00:00 2021-03-26 00:00[facility] 1.2.840.114 350.1.13.10 4.2.7.2.686 [id number] 220 [id number] [facility] 2021-03-26 00:00:00 2021-03-26 00:00:00 [facility] 1.2.840.114 350.1.13.10 4.2.7.2.686 [id number] 220 [id number] [facility] 2021-03-25 10:45:02 2021-03-25 12:10:14 [facility] 1.2.840.114 350.1.13.10 4.2.7.2.686 [id number] 220 [id number] [facility] 2021-03-25 11:00:00 2021-03-25 11:00:00 Outpatient R OBINNA [facility] [id number] [facility] 2021-03-25 00:00:00 2021-03-25 00:00:00 Orders Only Doctor Unassigned, [place] [facility] 1.2.840.114 350.1.13.10 4.2.7.2.686 [id number] 009 [id number] [facility] 2021-03-13 00:00:00 2021-03-13 00:00:00 Orders Only Doctor Unassigned, [place] [facility] 1.2.840.114 350.1.13.10 4.2.7.2.686 [id number] 009 [id number] [facility] 2021-03-12 00:00:00 2021-03-12 00:00:00 Telephone Alessandro [facility]eb[facility] 1.2840.114 350.1.13.10 4.2.7.2.686 [id number] 220 [id number] [facility] 2021-01-17 08:10:00 2021-01-17 08:10:00 Outpatient [facility] [id number] [facility] 2020-12-20 08:00:00 2020-12-20 08:00:00 Outpatient [facility] [id number] [facility] 2020-11-04 11:20:30 2020-11-04 12:25:53 [facility] 1.840.114 350.1.13.10 4.2.7.2.686 [id number] 220 [id number] [facility] 2020-11-04 11:30:00 2020-11-04 11:30:00 Outpatient R OBINNA [facility] [id number] [facility] 2020-11-04 00:00:00 2020-11-04 00:00:00 Orders Only Doctor Unassigned, [place] [facility] 1.20.114 350.1.13.10 4.2.7.2.686 [id number] 009 [id number] [facility] 2020-10-31 00:00:00 2020-10-31 00:00:00 [facility] 1.2840.114 350.1.13.10 4.2.7.2.686 [id number] 220 [id number] [facility] 2020-10-29 00:00:00 2020-10-29 00:00:00 Refill Obinna [facility] 1.2.840.114 350.1.13.10 4.2.7.2.686 [id number] 220 [id number] [facility] 2020-10-17 00:00:00 2020-10-17 00:00:00 Refill Obinna [facility] 1.2.840.114 350.1.13.10 4.2.7.2.686 [id number] 220 [id number] [facility] 2020-07-01 11:00:00 2020-07-01 11:00:00 Outpatient R OBINNA [facility] [id number] [facility] 2020-07-01 08:08:16 2020-07-01 08:38:16 Telemedici ne Visit Obinna [facility] 1.2.840.114 350.1.13.10 4.2.7.2.686 [id number] 220 [id number] [facility] 2020-07-01 00:00:00 2020-07-01 00:00:00 Orders Only Doctor Unassigned, [place] [facility] 1.2.840.114 350.1.13.10 4.2.7.2.686 [id number] 009 [id number] [facility] 2020-05-07 00:00:00 2020-05-07 00:00:00 Telephone Obinna [facility] 1.2.840.114 350.1.13.10 4.2.7.2.686 [id number] 220 [id number] [facility] 2020-03-25 08:07:43 2020-03-26 08:25:32 Telemedici ne Visit Obinna [facility] 1.2.840.114 350.1.13.10 4.2.7.2.686 [id number] 220 [id number] [facility] 2020-03-26 00:00:00 2020-03-26 00:00:00 Telephone Obinna [facility] 1.2.840.114 350.1.13.10 4.2.7.2.686 [id number] 220 [id number] [facility] 2020-03-26 00:00:00 2020-03-26 00:00:00 Orders Only Doctor Unassigned, [place] [facility] 1.2.840.114 350.1.13.10 4.2.7.2.686 [id number] 009 [id number] [facility] 2020-03-25 15:30:00 2020-03-25 15:30:00 Outpatient R OBINNA [facility] [id number] [facility] 2020-03-12 00:00:00 2020-03-12 00:00:00 Telephone Yeboah [facility] 1.2.840.114 350.1.13.10 4.2.7.2.686 [id number] 220 [id number] [facility] 2020-03-11 00:00:00 2020-03-11 00:00:00 Telephone Obinna [facility] 1.2.840.114 350.1.13.10 4.2.7.2.686 [id number] 220 [id number] [facility] 2020-03-10 00:00:00 2020-03-10 00:00:00 Orders Only Doctor Unassigned, [place] [facility] 1.2.840.114 350.1.13.10 4.2.7.2.686 [id number] 009 [id number] [facility] 2020-03-06 00:00:00 2020-03-06 00:00:00 Telephone Obinna [facility] 1.2.840.114 350.1.13.10 4.2.7.2.686 [id number] 220 [id number] [facility] 2020-03-04 00:00:00 2020-03-04 00:00:00 Telephone Alessandro Yeboah [facility] 1.2.840.114 350.1.13.10 4.2.7.2.686 [id number] 220 [id number] [facility] 2020-02-28 00:00:00 2020-02-28 00:00:00 Refill Doctor Unassigned, [place] [facility] 1.2.840.114 350.1.13.10 4.2.7.2.686 [id number] 220 [id number] [facility] 2020-01-22 00:00:00 2020-01-22 00:00:00 Refill Pat[facility] 1.2.840.114 350.1.13.10 4.2.7.2.686 [id number] 220 [id number] [facility] 2020-01-22 00:00:00 2020-01-22 00:00:00 [facility] 1.2.840.114 350.1.13.10 4.2.7.2.686 [id number] 220 [id number] [facility] 2019-12-18 00:00:00 2019-12-18 00:00:00 Refill Alessandro Yeboah [facility] 1.2.840.114 350.1.13.10 4.2.7.2.686 [id number] 220 [id number] [facility] 2019-07-12 00:00:00 2019-07-12 00:00:00 Refill Paty Marrero [facility] 1.2.840.114 350.1.13.10 4.2.7.2.686 [id number] 220 [id number] [facility] Results Test Description Test Time Test Comments Results Result Co mments Source BASIC METABOLIC [id number] 11:05:00* Test Item Value Reference Range Interpretation Comme nts SODIUM (test code = NA) 134 mEq/L 134-147 N POTASSIUM (test code = K) 4.6 mEq/L 3.4-5.0 N CHLORIDE (test code = CL) 99 mEq/L 100-108 L CARBON DIOXIDE (test code = CO2) 26 mEq/l 21-33 N ANION GAP (test code = GAP) 14 0-20 N GLUCOSE (test code = GLU) 221 mg/dL 77-141 H BLOOD UREA NITROGEN (test code = BUN) 25 mg/dL 7-25 N GLOMERULAR FILTRATION RATE (test code = GFR) 12.1 80-90 L The Glomerular Filtration Rate is a calculated parameterbased on serum Creatinine, patient age and sex. GFR valuesless than 60 mL/min/1.73 square meters are indicative ofChronic Kidney Disease. Values less than 15 mL/min/1.73square meters indicate Kidney failure. The calculation forGFR is based on the CKD-EPI (202) calculation. This formulais race indifferent and is the recommended formula for GFRby the National Kidney Foundation for Adults.The GFR will not calculate if the sex is unknown or if thepatient's age is <18 years. CREATININE (test code = CREAT) 3.9 mg/dL 0.6-1.3 H CALCIUM (test code = CA) 10.4 mg/dL 8.0-10.5 N CBC W/AUTO [id number] 10:44:00* Test Item Value Reference Range Interpretation Comme nts WHITE BLOOD CELL (test code = WBC) 7.7 x10 3/uL 4.5-11.0 N RED BLOOD CELL (test code = RBC) 3.74 x10 6/uL 3.54-5.02 N HEMOGLOBIN (test code = HGB) 13.0 g/dL 11.0-15.0 N HEMATOCRIT (test code = HCT) 42.5 % 33.0-45.0 N MEAN CELL VOLUME (test code = MCV) 113.6 fL 81.0-99.0 H MEAN CELL HGB (test code = MCH) 34.8 pg 27.0-33.0 H MEAN CELL HGB CONCETRATION (test code = MCHC) 30.6 g/dL 33.0-37.0 L RED CELL DISTRIBUTION WIDTH CV (test code = RDW) 15.8 % 11.5-14.5 H RED CELL DISTRIBUTION WIDTH SD (test code = RDW-SD) 67.0 fL 37.0-54.0 H PLATELET COUNT (test code = PLT) 333 x10 3/uL 150-400 N MEAN PLATELET VOLUME (test c ode = MPV) 10.6 fL 7.0-9.0 H NEUTROPHIL % (test code = NT%) 68.7 % 56.0-77.0 N IMMATURE GRANULOCYTE % (test code = IG%) 0.3 % 0.0-2.0 N LYMPHOCYTE % (test code = LY%) 18.1 % 14.0-32.0 N MONOCYTE % (test code = MO%) 11.1 % 4.8-9.0 H EOSINOPHIL % (test code = EO%) 1.3 % 0.3-3.7 N BASOPHIL % (test code = BA%) 0.5 % 0.0-2.0 N NUCLEATED RBC % (test code = NRBC%) 0.0 % 0-0 N NEUTROPHIL # (test code = NT#) 5.30 x10 3/uL 2.0-7.6 N IMMATURE GRANULOCYTE # (test code = IG#) 0.02 x10 3/uL 0.00-0.03 N LYMPHOCYTE # (test code = LY#) 1.40 x10 3/uL 1.0-3.8 N MONOCYTE # (test code = MO#) 0.86 x10 3/uL 0.1-0.8 H EOSINOPHIL # (test code = EO#) 0.10 x10 3/uL 0.0-0.2 N BASOPHIL # (test code = BA#) 0.04 x10 3/uL 0.0-0.2 N NUCLEATED RBC # (test code = NRBC#) 0.00 x10 3/uL 0.0-0.1 N GLUCOSE [id number] 10:44:00* Test Item Value Reference Range Interpretation Comme nts GLUCOSE BEDSIDE (test code = GLUBED) 204 MG/DL 70-110 H Performed by cer tified cad operator at [facility] BASIC METABOLIC [id number] 12:41:00* Test Item Value Reference Range Interpretation Comme nts SODIUM (test code = NA) 134 mEq/L 134-147 N POTASSIUM (test code = K) 3.9 mEq/L 3.4-5.0 N CHLORIDE (test code = CL) 98 mEq/L 100-108 L CARBON DIOXIDE (test code = CO2) 26 mEq/l 21-33 N ANION GAP (test code = GAP) 14 0-20 N GLUCOSE (test code = GLU) 160 mg/dL 77-141 H BLOOD UREA NITROGEN (test code = BUN) 24 mg/dL 7-25 N GLOMERULAR FILTRATION RATE (test code = GFR) 11.0 80-90 L The Glomerular Filtration Rate is a calculated parameterbased on serum Creatinine, patient age and sex. GFR valuesless than 60 mL/min/1.73 square meters are indicative ofChronic Kidney Disease. Values less than 15 mL/min/1.73square meters indicate Kidney failure. The calculation forGFR is based on the CKD-EPI (2020) calculation. This formulais race indifferent and is the recommended formula for GFRby the National Kidney Foundation for Adults.The GFR will not calculate if the sex is unknown or if thepatient's age is <18 years. CREATININE (test code = CREAT) 4.2 mg/dL 0.6-1.3 H CALCIUM (test code = CA) 9.8 mg/dL 8.0-10.5 N CBC W/AUTO [id number] 12:37:00* Test Item Value Reference Range Interpretation Comme nts WHITE BLOOD CELL (test code = WBC) 6.0 x10 3/uL 4.5-11.0 N RED BLOOD CELL (test code = RBC) 3.39 x10 6/uL 3.54-5.02 L HEMOGLOBIN (test code = HGB) 11.9 g/dL 11.0-15.0 N HEMATOCRIT (test code = HCT) 37.9 % 33.0-45.0 N MEAN CELL VOLUME (test code = MCV) 111.8 fL 81.0-99.0 H MEAN CELL HGB (test code = MCH) 35.1 pg 27.0-33.0 H MEAN CELL HGB CONCETRATION (test code = MCHC) 31.4 g/dL 33.0-37.0 L RED CELL DISTRIBUTION WIDTH CV (test code = RDW) 15.8 % 11.5-14.5 H RED CELL DISTRIBUTION WIDTH SD (test code = RDW-SD) 63.8 fL 37.0-54.0 H PLATELET COUNT (test code = PLT) 323 x10 3/uL 150-400 N MEAN PLATELET VOLUME (test c ode = MPV) 11.0 fL 7.0-9.0 H NEUTROPHIL % (test code = NT%) 66.9 % 56.0-77.0 N IMMATURE GRANULOCYTE % (test code = IG%) 0.3 % 0.0-2.0 N LYMPHOCYTE % (test code = LY%) 17.6 % 14.0-32.0 N MONOCYTE % (test code = MO%) 13.5 % 4.8-9.0 H EOSINOPHIL % (test code = EO%) 1.2 % 0.3-3.7 N BASOPHIL % (test code = BA%) 0.5 % 0.0-2.0 N NUCLEATED RBC % (test code = NRBC%) 0.0 % 0-0 N NEUTROPHIL # (test code = NT#) 4.00 x10 3/uL 2.0-7.6 N IMMATURE GRANULOCYTE # (test code = IG#) 0.02 x10 3/uL 0.00-0.03 N LYMPHOCYTE # (test code = LY#) 1.05 x10 3/uL 1.0-3.8 N MONOCYTE # (test code = MO#) 0.81 x10 3/uL 0.1-0.8 H EOSINOPHIL # (test code = EO#) 0.07 x10 3/uL 0.0-0.2 N BASOPHIL # (test code = BA#) 0.03 x10 3/uL 0.0-0.2 N NUCLEATED RBC # (test code = NRBC#) 0.00 x10 3/uL 0.0-0.1 N RBC [id number] 12:37:00* Test Item Value Reference Range Interpretation Comme nts ANISOCYTOSIS (test code = ANISO) 1+ POLYCHROMASIA (test code = POLC) 2+ MACROCYTOSIS (test code = MACR) 2+ PROTHROMBIN [id number] 12:07:00* Test Item Value Reference Range Interpretation Comme nts PROTHROMBIN TIME PATIENT (test code = PTP) 12.0 SECONDS 9.3-12.9 N INTERNATIONAL NORMAL RATIO (test code = INR) 1.1 0.8-1.2 N TARGET INR BY INDICATION Indication INR1. Prophylaxis of venous thrombosis 2.0 - 3.0 (orthopedic surgery), Prophylaxis of venous thrombosis (other than high-risk surgery), Treatment of Deep Vein Thrombosis/Pulmonary Embolism, Prevention of systemic embolism - Tissue heart valves, Acute Myocardial Infarction (to prevent systemic embolism), Valvular heart disease, Atrial Fibrillation, Bileaflet mechanical valve in aortic position.2. Mechanical prosthetic valves (high risk), 2.5 - 3.5 Presence of Lupus Anticoagulant or Antiphospholipid Antibodies, Prevention of systemic embolism - Acute Myocardial Infarction (to prevent recurrent infarct). POCT Hemoglobin A1C [id number] 17:52:00* Test Item Value Reference Range Interpretation Comme [facility] POCT HBA1C (test code = 4548-4) 6.7 % 4-6 A Lab Interpretation (test cod e = 94175-8) [facility] [id number] 17:52:00* Test Item Value Reference Range Interpretation Comme [facility] POCT HBA1C (test code = 4548-4) 6.7 % 4-6 A Lab Interpretation (test cod e = 38611-6) [facility] [id number] 12:01:00* Test Item Value Reference Range Interpretation Comme [facility] GLUCOSE BEDSIDE (test code = GLUBED) 242 MG/DL 70-110 H Performed by cer tified cad operator at [facility] GLUCOSE [id number] 11:29:00* Test Item Value Reference Range Interpretation Comme [facility] GLUCOSE BEDSIDE (test code = GLUBED) 220 MG/DL 70-110 H Performed by [employer]oma Pharm[employer]ied cad operator at [facility] GLUCOSE [id number] 07:05:00* Test Item Value Reference Range Interpretation Comme [facility] GLUCOSE BEDSIDE (test code = GLUBED) 251 MG/DL 70-110 H Performed by [employer] cad operator at [facility] BASIC METABOLIC [id number] 07:00:00* Test Item Value Reference Range Interpretation Comme nts SODIUM (test code = NA) 134 mEq/L 134-147 N POTASSIUM (test code = K) 4.4 mEq/L 3.4-5.0 N CHLORIDE (test code = CL) 101 mEq/L 100-108 N CARBON DIOXIDE (test code = CO2) 23 mEq/l 21-33 N ANION GAP (test code = GAP) 14 0-20 N GLUCOSE (test code = GLU) 253 mg/dL 77-141 H BLOOD UREA NITROGEN (test code = BUN) 21 mg/dL 7-25 N GLOMERULAR FILTRATION RATE (test code = GFR) 13.7 80-90 L The Glomerular Filtration Rate is a calculated parameterbased on serum Creatinine, patient age and sex. GFR valuesless than 60 mL/min/1.73 square meters are indicative ofChronic Kidney Disease. Values less than 15 mL/min/1.73square meters indicate Kidney failure. The calculation forGFR is based on the CKD-EPI (2020) calculation. This formulais race indifferent and is the recommended formula for GFRby the National Kidney Foundation for Adults.The GFR will not calculate if the sex is unknown or if thepatient's age is <18 years. CREATININE (test code = CREAT) 3.5 mg/dL 0.6-1.3 H CALCIUM (test code = CA) 9.6 mg/dL 8.0-10.5 N CBC W/AUTO [id number] 06:44:00* Test Item Value Reference Range Interpretation Comme nts WHITE BLOOD CELL (test code = WBC) 10.0 x10 3/uL 4.5-11.0 N RED BLOOD CELL (test code = RBC) 3.15 x10 6/uL 3.54-5.02 L HEMOGLOBIN (test code = HGB) 10.9 g/dL 11.0-15.0 L HEMATOCRIT (test code = HCT) 35.5 % 33.0-45.0 N MEAN CELL VOLUME (test code = MCV) 112.7 fL 81.0-99.0 H MEAN CELL HGB (test code = MCH) 34.6 pg 27.0-33.0 H MEAN CELL HGB CONCETRATION (test code = MCHC) 30.7 g/dL 33.0-37.0 L RED CELL DISTRIBUTION WIDTH CV (test code = RDW) 13.0 % 11.5-14.5 N RED CELL DISTRIBUTION WIDTH SD (test code = RDW-SD) 54.2 fL 37.0-54.0 H PLATELET COUNT (test code = PLT) 350 x10 3/uL 150-400 N MEAN PLATELET VOLUME (test c ode = MPV) 10.3 fL 7.0-9.0 H NEUTROPHIL % (test code = NT%) 71.9 % 56.0-77.0 N IMMATURE GRANULOCYTE % (test code = IG%) 0.3 % 0.0-2.0 N LYMPHOCYTE % (test code = LY%) 16.0 % 14.0-32.0 N MONOCYTE % (test code = MO%) 9.9 % 4.8-9.0 H EOSINOPHIL % (test code = EO%) 1.5 % 0.3-3.7 N BASOPHIL % (test code = BA%) 0.4 % 0.0-2.0 N NUCLEATED RBC % (test code = NRBC%) 0.0 % 0-0 N NEUTROPHIL # (test code = NT#) 7.17 x10 3/uL 2.0-7.6 N IMMATURE GRANULOCYTE # (test code = IG#) 0.03 x10 3/uL 0.00-0.03 N LYMPHOCYTE # (test code = LY#) 1.60 x10 3/uL 1.0-3.8 N MONOCYTE # (test code = MO#) 0.99 x10 3/uL 0.1-0.8 H EOSINOPHIL # (test code = EO#) 0.15 x10 3/uL 0.0-0.2 N BASOPHIL # (test code = BA#) 0.04 x10 3/uL 0.0-0.2 N NUCLEATED RBC # (test code = NRBC#) 0.00 x10 3/uL 0.0-0.1 N CBC W/AUTO [id number] 21:30:00* Test Item Value Reference Range Interpretation Comme nts WHITE BLOOD CELL (test code = WBC) 8.7 x10 3/uL 4.5-11.0 N RED BLOOD CELL (test code = RBC) 3.36 x10 6/uL 3.54-5.02 L HEMOGLOBIN (test code = HGB) 11.9 g/dL 11.0-15.0 N HEMATOCRIT (test code = HCT) 38.7 % 33.0-45.0 N MEAN CELL VOLUME (test code = MCV) 115.2 fL 81.0-99.0 H MEAN CELL HGB (test code = MCH) 35.4 pg 27.0-33.0 H MEAN CELL HGB CONCETRATION (test code = MCHC) 30.7 g/dL 33.0-37.0 L RED CELL DISTRIBUTION WIDTH CV (test code = RDW) 13.2 % 11.5-14.5 N RED CELL DISTRIBUTION WIDTH SD (test code = RDW-SD) 56.4 fL 37.0-54.0 H PLATELET COUNT (test code = PLT) 417 x10 3/uL 150-400 H MEAN PLATELET VOLUME (test c ode = MPV) 10.6 fL 7.0-9.0 H NEUTROPHIL % (test code = NT%) 72.7 % 56.0-77.0 N IMMATURE GRANULOCYTE % (test code = IG%) 0.2 % 0.0-2.0 N LYMPHOCYTE % (test code = LY%) 15.2 % 14.0-32.0 N MONOCYTE % (test code = MO%) 10.1 % 4.8-9.0 H EOSINOPHIL % (test code = EO%) 1.5 % 0.3-3.7 N BASOPHIL % (test code = BA%) 0.3 % 0.0-2.0 N NUCLEATED RBC % (test code = NRBC%) 0.0 % 0-0 N NEUTROPHIL # (test code = NT#) 6.31 x10 3/uL 2.0-7.6 N IMMATURE GRANULOCYTE # (test code = IG#) 0.02 x10 3/uL 0.00-0.03 N LYMPHOCYTE # (test code = LY#) 1.32 x10 3/uL 1.0-3.8 N MONOCYTE # (test code = MO#) 0.88 x10 3/uL 0.1-0.8 H EOSINOPHIL # (test code = EO#) 0.13 x10 3/uL 0.0-0.2 N BASOPHIL # (test code = BA#) 0.03 x10 3/uL 0.0-0.2 N NUCLEATED RBC # (test code = NRBC#) 0.00 x10 3/uL 0.0-0.1 N RBC [id number] 21:30:00* Test Item Value Reference Range Interpretation Comme nts ANISOCYTOSIS (test code = ANISO) 1+ MACROCYTOSIS (test code = MACR) 1+ BASIC METABOLIC [id number] 14:44:00* Test Item Value Reference Range Interpretation Comme nts SODIUM (test code = NA) 137 mEq/L 134-147 N POTASSIUM (test code = K) 3.9 mEq/L 3.4-5.0 N CHLORIDE (test code = CL) 99 mEq/L 100-108 L CARBON DIOXIDE (test code = CO2) 26 mEq/l 21-33 N ANION GAP (test code = GAP) 16 0-20 N GLUCOSE (test code = GLU) 244 mg/dL 77-141 H BLOOD UREA NITROGEN (test code = BUN) 30 mg/dL 7-25 H GLOMERULAR FILTRATION RATE (test code = GFR) 13.3 80-90 L The Glomerular Filtration Rate is a calculated parameterbased on serum Creatinine, patient age and sex. GFR valuesless than 60 mL/min/1.73 square meters are indicative ofChronic Kidney Disease. Values less than 15 mL/min/1.73square meters indicate Kidney failure. The calculation forGFR is based on the CKD-EPI (2020) calculation. This formulais race indifferent and is the recommended formula for GFRby the National Kidney Foundation for Adults.The GFR will not calculate if the sex is unknown or if thepatient's age is <18 years. CREATININE (test code = CREAT) 3.6 mg/dL 0.6-1.3 H CALCIUM (test code = CA) 9.7 mg/dL 8.0-10.5 N PROTHROMBIN [id number] 14:44:00* Test Item Value Reference Range Interpretation Comme nts PROTHROMBIN TIME PATIENT (test code = PTP) 10.9 SECONDS 9.3-12.9 N INTERNATIONAL NORMAL RATIO (test code = INR) 1.0 0.8-1.2 N TARGET INR BY INDICATION Indication INR1. Prophylaxis of venous thrombosis 2.0 - 3.0 (orthopedic surgery), Prophylaxis of venous thrombosis (other than high-risk surgery), Treatment of Deep Vein Thrombosis/Pulmonary Embolism, Prevention of systemic embolism - Tissue heart valves, Acute Myocardial Infarction (to prevent systemic embolism), Valvular heart disease, Atrial Fibrillation, Bileaflet mechanical valve in aortic position.2. Mechanical prosthetic valves (high risk), 2.5 - 3.5 Presence of Lupus Anticoagulant or Antiphospholipid Antibodies, Prevention of systemic embolism - Acute Myocardial Infarction (to prevent recurrent infarct). - XR CHEST 2 [id number] 13:52:00 [facility] SYLWIA ISAACSName: JOSEPH ROWLEY : 1955 Sex: F FAX: Benito Jeronimo MD [phone] [place]: St: PRE FAX: Luis Carlos Hernandez [phone] FAX: Tawnya Guidry Name: JOSEPH ROWLEY [facility] Sylwia Isaacs : 1955 Age/S: 69/F [address] [place] [address] Unit #: [id number] Loc: [place] [address] Phys: Tawnya Guidry [employer] Acct: [id number] Dis Date: Status: PRE [facility] [place] PHONE #: [phone] Exam Date: 01/24/2024 1253 FAX #: [phone] Reason: PRE OP EXAMS: CPT CODE: [id number] XR CHEST 2 V [id number] Location Code: S17 EXAMINATION: - XR CHEST 2 V CLINICAL INDICATION: Female, 69 years year old with PRE OP COMPARISON: Chest x-ray July 21, 2023. FINDINGS: 2 view(s) of the chest submitted. Support Devices: Right-sided central venous catheter tip is projected over the cavoatrial junction. Heart: Cardiac silhouette is stable in size. Mediastinum: Mediastinalcontours are unchanged. Lungs: Pulmonary vessels are normal in size. No evidence of focal consolidation. 1 Pleura: No pleural effusion is identified. No pneumothorax is present. Bones: Visualized skeleton is stable in appearance. IMPRESSION: No acute cardiopulmonary disease. at 1352 Reported and signed by: Eric Vallecillo M.D. CC: Benito Nugent MD; Luis Carlos Huggins MD; Tawnya Guidry NP Technologist: RT Bar(R) TrnscrdDate/Time/By: 01/24/2024 (6522) : By: [email or web address] Orig Print D/T: S: 01/24/2024 (9096) PAGE 1 SignedReportBASIC METABOLIC [id number] 14:45:00* Test Item Value Reference Range Interpretation Comme nts SODIUM (test code = NA/ABG) 136 mmol/L 134-147 N POTASSIUM (test code = K/ABG) 3.8 mmol/L 3.4-5.0 N CHLORIDE (test code = CL/ABG) 104 mmol/L 100-108 N CREATININE ABG (test code = CREAABG) 3.1 mg/dL 0.6-1.0 H POC IONIZED CALCIUM (test co de = POCCA) 1.14 MMOL/L 1.12-1.32 N POC GLUCOSE (test code = POCGLU) 178 MG/DL 70-110 H HEMOGLOBIN [id number] 14:45:00* Test Item Value Reference Range Interpretation Comme nts HEMOGLOBIN ABG (test code = HGB/ABG) 16.6 G/DL 11.0-15.0 H [id number] 14:45:00* Test Item Value Reference Range Interpretation Comme nts HEMATOCRIT (test code = HCT/ABG) 49 % 33.0-45.0 H POC LACTIC [id number] 14:45:00* Test Item Value Reference Range Interpretation Comme nts POC LACTIC ACID (test code = POCLAC) 0.9 mmol/l 0.9-1.7 N POC VENOUS BLOOD [id number] 14:45:00* Test Item Value Reference Range Interpretation Comme nts POC VENOUS BLOOD GAS PH (nelson t code = POCPHV) 7.359 7.33-7.45 N POC VENOUS BLOOD GAS PCO2 (t est code = VZNVFA2B) 43.5 mmHg 43-47 N POC VENOUS BLOOD GAS PO2 (te st code = OBLKU6R) 44.8 mmHG 10-50 N POC TCO2 VENOUS (test code = WBAWCX8O) 25.8 POC HCO3 VENOUS (test code = ROIGXH0U) 24.5 MMOL/L 22-27 N POC BASE EXCESS VENOUS (test code = POCBEV) -1.3 MMOL/L -4.0-4.0 N POC O2 SATURATION VENOUS (te st code = ZIUC3ML) 78.4 % 60-80 N GLUCOSE [id number] 18:11:00* Test Item Value Reference Range Interpretation Comme nts GLUCOSE BEDSIDE (test code = GLUBED) 229 MG/DL 70-110 H Performed by cer [place] cad operator at [facility] CBC W/AUTO [id number] 08:39:00* Test Item Value Reference Range Interpretation Comme nts WHITE BLOOD CELL (test code = WBC) 7.6 x10 3/uL 4.5-11.0 N RED BLOOD CELL (test code = RBC) 4.22 x10 6/uL 3.54-5.02 N HEMOGLOBIN (test code = HGB) 14.5 g/dL 11.0-15.0 N HEMATOCRIT (test code = HCT) 46.6 % 33.0-45.0 H MEAN CELL VOLUME (test code = MCV) 110.4 fL 81.0-99.0 H MEAN CELL HGB (test code = MCH) 34.4 pg 27.0-33.0 H MEAN CELL HGB CONCETRATION (test code = MCHC) 31.1 g/dL 33.0-37.0 L RED CELL DISTRIBUTION WIDTH CV (test code = RDW) 18.2 % 11.5-14.5 H RED CELL DISTRIBUTION WIDTH SD (test code = RDW-SD) 71.4 fL 37.0-54.0 H PLATELET COUNT (test code = PLT) 234 x10 3/uL 150-400 N MEAN PLATELET VOLUME (test c ode = MPV) 10.6 fL 7.0-9.0 H NEUTROPHIL % (test code = NT%) 64.2 % 56.0-77.0 N IMMATURE GRANULOCYTE % (test code = IG%) 0.3 % 0.0-2.0 N LYMPHOCYTE % (test code = LY%) 22.8 % 14.0-32.0 N MONOCYTE % (test code = MO%) 10.3 % 4.8-9.0 H EOSINOPHIL % (test code = EO%) 1.9 % 0.3-3.7 N BASOPHIL % (test code = BA%) 0.5 % 0.0-2.0 N NUCLEATED RBC % (test code = NRBC%) 0.0 % 0-0 N NEUTROPHIL # (test code = NT#) 4.86 x10 3/uL 2.0-7.6 N IMMATURE GRANULOCYTE # (test code = IG#) 0.02 x10 3/uL 0.00-0.03 N LYMPHOCYTE # (test code = LY#) 1.72 x10 3/uL 1.0-3.8 N MONOCYTE # (test code = MO#) 0.78 x10 3/uL 0.1-0.8 N EOSINOPHIL # (test code = EO#) 0.14 x10 3/uL 0.0-0.2 N BASOPHIL # (test code = BA#) 0.04 x10 3/uL 0.0-0.2 N NUCLEATED RBC # (test code = NRBC#) 0.00 x10 3/uL 0.0-0.1 N BASIC METABOLIC [id number] 07:57:00* Test Item Value Reference Range Interpretation Comme nts SODIUM (test code = NA) 133 mEq/L 134-147 L POTASSIUM (test code = K) 4.5 mEq/L 3.4-5.0 N CHLORIDE (test code = CL) 96 mEq/L 100-108 L CARBON DIOXIDE (test code = CO2) 22 mEq/l 21-33 N ANION GAP (test code = GAP) 19 0-20 N GLUCOSE (test code = GLU) 159 mg/dL 77-141 H NOTE: NEW NORMAL RANGE BLOOD UREA NITROGEN (test code = BUN) 21 mg/dL 7-25 N NOTE: NEW NORM AL RANGE GLOMERULAR FILTRATION RATE (test code = GFR) 16.6 80-90 L The Glomerular Filtration Rate is a calculated parameterbased on serum Creatinine, patient age and sex. GFR valuesless than 60 mL/min/1.73 square meters are indicative ofChronic Kidney Disease. Values less than 15 mL/min/1.73square meters indicate Kidney failure. The calculation forGFR is based on the CKD-EPI (2020) calculation. This formulais race indifferent and is the recommended formula for GFRby the National Kidney Foundation for Adults.The GFR will not calculate if the sex is unknown or if thepatient's age is <18 years. CREATININE (test code = CREAT) 3.0 mg/dL 0.6-1.3 H CALCIUM (test code = CA) 10.2 mg/dL 8.0-10.5 N POCT HEMOGLOBIN A1C [id number] 16:26:00* Test Item Value Reference Range Interpretation Comme [facility] POCT HBA1C (test code = 4548-4) 6.7 % 4-6 A Lab Interpretation (test cod e = 28241-5) Abnormal [facility] HEMOGLOBIN A1C [id number] 16:26:00* Test Item Value Reference Range Interpretation Comme [facility] POCT HBA1C (test code = 4548-4) 6.7 % 4-6 A Lab Interpretation (test cod e = 01264-7) [facility] [id number] 06:12:00* Test Item Value Reference Range Interpretation Comme [facility] AB HEPATITIS B SURFACE (test code = HBSAB) < 3.1 mIU/mL See_Comment L Status of Immuni ty Anti-HBs Level Inconsi stent with Immunity 0.0 - 9.9Consistent with Immunity >9.9Performed At: [facility] [address] [id number] Kyle L MD Ph:[phone] [Automated message] The system which generated this result transmitted reference range: Immunity>9.9. The reference range was not used to interpret this result as normal/abnormal. GLUCOSE [id number] 08:06:00* Test Item Value Reference Range Interpretation Comme [facility] GLUCOSE BEDSIDE (test code = GLUBED) 198 MG/DL 70-110 H Performed by cer [place] cad operator at [facility] BASIC METABOLIC [id number] 04:28:00* Test Item Value Reference Range Interpretation Comme nts SODIUM (test code = NA) 134 mEq/L 134-147 N POTASSIUM (test code = K) 3.9 mEq/L 3.4-5.0 N CHLORIDE (test code = CL) 97 mEq/L 100-108 L CARBON DIOXIDE (test code = CO2) 24 mEq/l 21-33 N ANION GAP (test code = GAP) 16 0-20 N GLUCOSE (test code = GLU) 454 mg/dL 77-141 HH Critical result called to JOSEPH Roe.[facility].KAF at 0428 09/02/23Nurse read back resut and tech confirmed it's correct? YNOTE: NEW NORMAL RANGE BLOOD UREA NITROGEN (test code = BUN) 31 mg/dL 7-25 H NOTE: NEW NORM AL RANGE GLOMERULAR FILTRATION RATE (test code = GFR) 22.9 80-90 L The Glomerular Filtration Rate is a calculated parameterbased on serum Creatinine, patient age and sex. GFR valuesless than 60 mL/min/1.73 square meters are indicative ofChronic Kidney Disease. Values less than 15 mL/min/1.73square meters indicate Kidney failure. The calculation forGFR is based on the CKD-EPI (202) calculation. This formulais race indifferent and is the recommended formula for GFRby the National Kidney Foundation for Adults.The GFR will not calculate if the sex is unknown or if thepatient's age is <18 years. CREATININE (test code = CREAT) 2.3 mg/dL 0.6-1.3 H CALCIUM (test code = CA) 8.7 mg/dL 8.0-10.5 N CBC W/AUTO [id number] 03:58:00* Test Item Value Reference Range Interpretation Comme nts WHITE BLOOD CELL (test code = WBC) 10.6 x10 3/uL 4.5-11.0 N RED BLOOD CELL (test code = RBC) 3.28 x10 6/uL 3.54-5.02 L HEMOGLOBIN (test code = HGB) 11.0 g/dL 11.0-15.0 N HEMATOCRIT (test code = HCT) 36.0 % 33.0-45.0 N MEAN CELL VOLUME (test code = MCV) 109.8 fL 81.0-99.0 H MEAN CELL HGB (test code = MCH) 33.5 pg 27.0-33.0 H MEAN CELL HGB CONCETRATION (test code = MCHC) 30.6 g/dL 33.0-37.0 L RED CELL DISTRIBUTION WIDTH CV (test code = RDW) 17.9 % 11.5-14.5 H RED CELL DISTRIBUTION WIDTH SD (test code = RDW-SD) 74.3 fL 37.0-54.0 H PLATELET COUNT (test code = PLT) 329 x10 3/uL 150-400 N MEAN PLATELET VOLUME (test c ode = MPV) 11.2 fL 7.0-9.0 H NEUTROPHIL % (test code = NT%) 74.8 % 56.0-77.0 N IMMATURE GRANULOCYTE % (test code = IG%) 0.3 % 0.0-2.0 N LYMPHOCYTE % (test code = LY%) 9.8 % 14.0-32.0 L MONOCYTE % (test code = MO%) 14.2 % 4.8-9.0 H EOSINOPHIL % (test code = EO%) 0.6 % 0.3-3.7 N BASOPHIL % (test code = BA%) 0.3 % 0.0-2.0 N NUCLEATED RBC % (test code = NRBC%) 0.0 % 0-0 N NEUTROPHIL # (test code = NT#) 7.90 x10 3/uL 2.0-7.6 H IMMATURE GRANULOCYTE # (test code = IG#) 0.03 x10 3/uL 0.00-0.03 N LYMPHOCYTE # (test code = LY#) 1.04 x10 3/uL 1.0-3.8 N MONOCYTE # (test code = MO#) 1.50 x10 3/uL 0.1-0.8 H EOSINOPHIL # (test code = EO#) 0.06 x10 3/uL 0.0-0.2 N BASOPHIL # (test code = BA#) 0.03 x10 3/uL 0.0-0.2 N NUCLEATED RBC # (test code = NRBC#) 0.00 x10 3/uL 0.0-0.1 N GLUCOSE [id number] 20:55:00* Test Item Value Reference Range Interpretation Comme nts GLUCOSE BEDSIDE (test code = GLUBED) 254 MG/DL 70-110 H Performed by cer tified cad operator at [facility] GLUCOSE [id number] 19:56:00* Test Item Value Reference Range Interpretation Comme nts GLUCOSE BEDSIDE (test code = GLUBED) 405 MG/DL 70-110 H Performed by cer tified cad operator at [facility] GLUCOSE [id number] 19:56:00* Test Item Value Reference Range Interpretation Comme nts GLUCOSE BEDSIDE (test code = GLUBED) 347 MG/DL 70-110 H Performed by cer tified cad operator at [facility] GLUCOSE [id number] 17:26:00* Test Item Value Reference Range Interpretation Comme nts GLUCOSE BEDSIDE (test code = GLUBED) 149 MG/DL 70-110 H Performed by cer tified cad operator at [facility] ACUTE HEPATITIS [id number] 16:31:00* Test Item Value Reference Range Interpretation Comme nts AB HEPATITIS A IGM (test code = HAVMAB) NON REACTIVE INDEX NON REACT. AG HEPATITIS B SURFACE (test code = HBSAG) NON REACTIVE INDEX NonReactive AB HEPATITIS B CORE IGM (test code = HBCMAB) NON REACTIVE INDEX NON REACT. AB HEPATITIS C (test code = HCVAB) NON REACTIVE INDEX NON REACT. PROTHROMBIN [id number] 15:49:00* Test Item Value Reference Range Interpretation Comme [facility] PROTHROMBIN TIME PATIENT (test code = PTP) 11.8 SECONDS 9.3-12.9 N INTERNATIONAL NORMAL RATIO (test code = INR) 1.1 0.8-1.2 N TARGET INR BY INDICATION Indication INR1. Prophylaxis of venous thrombosis 2.0 - 3.0 (orthopedic surgery), Prophylaxis of venous thrombosis (other than high-risk surgery), Treatment of Deep Vein Thrombosis/Pulmonary Embolism, Prevention of systemic embolism - Tissue heart valves, Acute Myocardial Infarction (to prevent systemic embolism), Valvular heart disease, Atrial Fibrillation, Bileaflet mechanical valve in aortic position.2. Mechanical prosthetic valves (high risk), 2.5 - 3.5 Presence of Lupus Anticoagulant or Antiphospholipid Antibodies, Prevention of systemic embolism - Acute Myocardial Infarction (to prevent recurrent infarct). CBC W/AUTO [id number] 15:39:00* Test Item Value Reference Range Interpretation Comme nts WHITE BLOOD CELL (test code = WBC) 8.2 x10 3/uL 4.5-11.0 N RED BLOOD CELL (test code = RBC) 3.50 x10 6/uL 3.54-5.02 L HEMOGLOBIN (test code = HGB) 12.0 g/dL 11.0-15.0 N HEMATOCRIT (test code = HCT) 39.1 % 33.0-45.0 N MEAN CELL VOLUME (test code = MCV) 111.7 fL 81.0-99.0 H MEAN CELL HGB (test code = MCH) 34.3 pg 27.0-33.0 H MEAN CELL HGB CONCETRATION (test code = MCHC) 30.7 g/dL 33.0-37.0 L RED CELL DISTRIBUTION WIDTH CV (test code = RDW) 18.1 % 11.5-14.5 H RED CELL DISTRIBUTION WIDTH SD (test code = RDW-SD) 74.6 fL 37.0-54.0 H PLATELET COUNT (test code = PLT) 326 x10 3/uL 150-400 N MEAN PLATELET VOLUME (test c ode = MPV) 10.9 fL 7.0-9.0 H NEUTROPHIL % (test code = NT%) 95.4 % 56.0-77.0 H IMMATURE GRANULOCYTE % (test code = IG%) 0.4 % 0.0-2.0 N LYMPHOCYTE % (test code = LY%) 3.4 % 14.0-32.0 L MONOCYTE % (test code = MO%) 0.7 % 4.8-9.0 L EOSINOPHIL % (test code = EO%) 0.0 % 0.3-3.7 L BASOPHIL % (test code = BA%) 0.1 % 0.0-2.0 N NUCLEATED RBC % (test code = NRBC%) 0.0 % 0-0 N NEUTROPHIL # (test code = NT#) 7.78 x10 3/uL 2.0-7.6 H IMMATURE GRANULOCYTE # (test code = IG#) 0.03 x10 3/uL 0.00-0.03 N LYMPHOCYTE # (test code = LY#) 0.28 x10 3/uL 1.0-3.8 L MONOCYTE # (test code = MO#) 0.06 x10 3/uL 0.1-0.8 L EOSINOPHIL # (test code = EO#) 0.00 x10 3/uL 0.0-0.2 N BASOPHIL # (test code = BA#) 0.01 x10 3/uL 0.0-0.2 N NUCLEATED RBC # (test code = NRBC#) 0.00 x10 3/uL 0.0-0.1 N BASIC METABOLIC [id number] 08:00:00* Test Item Value Reference Range Interpretation Comme nts SODIUM (test code = NA/ABG) 140 mmol/L 134-147 N POTASSIUM (test code = K/ABG) 3.6 mmol/L 3.4-5.0 N CHLORIDE (test code = CL/ABG) 103 mmol/L 100-108 N CREATININE ABG (test code = CREAABG) 3.2 mg/dL 0.6-1.0 H POC IONIZED CALCIUM (test co de = POCCA) 1.20 MMOL/L 1.12-1.32 N POC GLUCOSE (test code = POCGLU) 219 MG/DL 70-110 H HEMOGLOBIN [id number] 08:00:00* Test Item Value Reference Range Interpretation Comme nts HEMOGLOBIN ABG (test code = HGB/ABG) 14.4 G/DL 11.0-15.0 N [id number] 08:00:00* Test Item Value Reference Range Interpretation Comme nts HEMATOCRIT (test code = HCT/ABG) 42 % 33.0-45.0 N POC LACTIC [id number] 08:00:00* Test Item Value Reference Range Interpretation Comme nts POC LACTIC ACID (test code = POCLAC) 0.7 mmol/l 0.9-1.7 L POC VENOUS BLOOD [id number] 08:00:00* Test Item Value Reference Range Interpretation Comme nts POC VENOUS BLOOD GAS PH (nelson t code = POCPHV) 7.383 7.33-7.45 N POC VENOUS BLOOD GAS PCO2 (t est code = NFDCUX2V) 44.1 mmHg 43-47 N POC VENOUS BLOOD GAS PO2 (te st code = JJCTK0J) 43.7 mmHG 10-50 N POC TCO2 VENOUS (test code = VSQCEM1O) 27.6 POC HCO3 VENOUS (test code = NXCVEF6N) 26.3 MMOL/L 22-27 N POC BASE EXCESS VENOUS (test code = POCBEV) 0.8 MMOL/L -4.0-4.0 N POC O2 SATURATION VENOUS (te st code = XFIT7MF) 78.3 % 60-80 N BASIC METABOLIC [id number] 07:55:00* Test Item Value Reference Range Interpretation Comme nts SODIUM (test code = NA) 135 mEq/L 134-147 N POTASSIUM (test code = K) 4.4 mEq/L 3.4-5.0 N CHLORIDE (test code = CL) 100 mEq/L 100-108 N CARBON DIOXIDE (test code = CO2) 23 mEq/l 21-33 N ANION GAP (test code = GAP) 16 0-20 N GLUCOSE (test code = GLU) 210 mg/dL 77-141 H NOTE: NEW NORMAL RANGE BLOOD UREA NITROGEN (test code = BUN) 28 mg/dL 7-25 H NOTE: NEW NORM AL RANGE GLOMERULAR FILTRATION RATE (test code = GFR) 17.3 80-90 L The Glomerular Filtration Rate is a calculated parameterbased on serum Creatinine, patient age and sex. GFR valuesless than 60 mL/min/1.73 square meters are indicative ofChronic Kidney Disease. Values less than 15 mL/min/1.73square meters indicate Kidney failure. The calculation forGFR is based on the CKD-EPI (2020) calculation. This formulais race indifferent and is the recommended formula for GFRby the National Kidney Foundation for Adults.The GFR will not calculate if the sex is unknown or if thepatient's age is <18 years. CREATININE (test code = CREAT) 2.9 mg/dL 0.6-1.3 H CALCIUM (test code = CA) 9.5 mg/dL 8.0-10.5 N CBC W/AUTO [id number] 16:04:00* Test Item Value Reference Range Interpretation Comme nts WHITE BLOOD CELL (test code = WBC) 8.2 x10 3/uL 4.5-11.0 N RED BLOOD CELL (test code = RBC) 3.94 x10 6/uL 3.54-5.02 N HEMOGLOBIN (test code = HGB) 13.4 g/dL 11.0-15.0 N HEMATOCRIT (test code = HCT) 44.2 % 33.0-45.0 N MEAN CELL VOLUME (test code = MCV) 112.2 fL 81.0-99.0 H MEAN CELL HGB (test code = MCH) 34.0 pg 27.0-33.0 H MEAN CELL HGB CONCETRATION (test code = MCHC) 30.3 g/dL 33.0-37.0 L RED CELL DISTRIBUTION WIDTH CV (test code = RDW) 18.5 % 11.5-14.5 H RED CELL DISTRIBUTION WIDTH SD (test code = RDW-SD) 78.5 fL 37.0-54.0 H PLATELET COUNT (test code = PLT) 334 x10 3/uL 150-400 N MEAN PLATELET VOLUME (test c ode = MPV) 10.7 fL 7.0-9.0 H NEUTROPHIL % (test code = NT%) 70.1 % 56.0-77.0 N IMMATURE GRANULOCYTE % (test code = IG%) 0.1 % 0.0-2.0 N LYMPHOCYTE % (test code = LY%) 17.1 % 14.0-32.0 N MONOCYTE % (test code = MO%) 10.5 % 4.8-9.0 H EOSINOPHIL % (test code = EO%) 1.8 % 0.3-3.7 N BASOPHIL % (test code = BA%) 0.4 % 0.0-2.0 N NUCLEATED RBC % (test code = NRBC%) 0.0 % 0-0 N NEUTROPHIL # (test code = NT#) 5.73 x10 3/uL 2.0-7.6 N IMMATURE GRANULOCYTE # (test code = IG#) 0.01 x10 3/uL 0.00-0.03 N LYMPHOCYTE # (test code = LY#) 1.40 x10 3/uL 1.0-3.8 N MONOCYTE # (test code = MO#) 0.86 x10 3/uL 0.1-0.8 H EOSINOPHIL # (test code = EO#) 0.15 x10 3/uL 0.0-0.2 N BASOPHIL # (test code = BA#) 0.03 x10 3/uL 0.0-0.2 N NUCLEATED RBC # (test code = NRBC#) 0.00 x10 3/uL 0.0-0.1 N RBC [id number] 16:04:00* Test Item Value Reference Range Interpretation Comme nts ANISOCYTOSIS (test code = ANISO) 1+ MACROCYTOSIS (test code = MACR) 1+ BASIC METABOLIC [id number] 14:45:00* Test Item Value Reference Range Interpretation Comme nts SODIUM (test code = NA) 134 mEq/L 134-147 N POTASSIUM (test code = K) 4.1 mEq/L 3.4-5.0 N CHLORIDE (test code = CL) 100 mEq/L 100-108 N CARBON DIOXIDE (test code = CO2) 21 mEq/l 21-33 N ANION GAP (test code = GAP) 18 0-20 N GLUCOSE (test code = GLU) 288 mg/dL 77-141 H NOTE: NEW NORMAL RANGE BLOOD UREA NITROGEN (test code = BUN) 37 mg/dL 7-25 H NOTE: NEW NORM AL RANGE GLOMERULAR FILTRATION RATE (test code = GFR) 13.8 80-90 L The Glomerular Filtration Rate is a calculated parameterbased on serum Creatinine, patient age and sex. GFR valuesless than 60 mL/min/1.73 square meters are indicative ofChronic Kidney Disease. Values less than 15 mL/min/1.73square meters indicate Kidney failure. The calculation forGFR is based on the CKD-EPI (2020) calculation. This formulais race indifferent and is the recommended formula for GFRby the National Kidney Foundation for Adults.The GFR will not calculate if the sex is unknown or if thepatient's age is <18 years. CREATININE (test code = CREAT) 3.5 mg/dL 0.6-1.3 H CALCIUM (test code = CA) 9.5 mg/dL 8.0-10.5 N PROTHROMBIN [id number] 14:34:00* Test Item Value Reference Range Interpretation Comme nts PROTHROMBIN TIME PATIENT (test code = PTP) 11.0 SECONDS 9.3-12.9 N INTERNATIONAL NORMAL RATIO (test code = INR) 1.0 0.8-1.2 N TARGET INR BY INDICATION Indication INR1. Prophylaxis of venous thrombosis 2.0 - 3.0 (orthopedic surgery), Prophylaxis of venous thrombosis (other than high-risk surgery), Treatment of Deep Vein Thrombosis/Pulmonary Embolism, Prevention of systemic embolism - Tissue heart valves, Acute Myocardial Infarction (to prevent systemic embolism), Valvular heart disease, Atrial Fibrillation, Bileaflet mechanical valve in aortic position.2. Mechanical prosthetic valves (high risk), 2.5 - 3.5 Presence of Lupus Anticoagulant or Antiphospholipid Antibodies, Prevention of systemic embolism - Acute Myocardial Infarction (to prevent recurrent infarct). BASIC METABOLIC [id number] 04:15:00* Test Item Value Reference Range Interpretation Comme nts SODIUM (test code = NA) 135 mEq/L 134-147 N POTASSIUM (test code = K) 3.7 mEq/L 3.4-5.0 CHLORIDE (test code = CL) 100 mEq/L 100-108 N CARBON DIOXIDE (test code = CO2) 30 mEq/l 21-33 N ANION GAP (test code = GAP) 9 0-20 N GLUCOSE (test code = GLU) 140 mg/dL 77-141 N NOTE: NEW NORMAL RANGE BLOOD UREA NITROGEN (test code = BUN) 20 mg/dL 7-25 N NOTE: NEW NORM AL RANGE GLOMERULAR FILTRATION RATE (test code = GFR) 22.9 80-90 L The Glomerular Filtration Rate is a calculated parameterbased on serum Creatinine, patient age and sex. GFR valuesless than 60 mL/min/1.73 square meters are indicative ofChronic Kidney Disease. Values less than 15 mL/min/1.73square meters indicate Kidney failure. The calculation forGFR is based on the CKD-EPI (2020) calculation. This formulais race indifferent and is the recommended formula for GFRby the National Kidney Foundation for Adults.The GFR will not calculate if the sex is unknown or if thepatient's age is <18 years. CREATININE (test code = CREAT) 2.3 mg/dL 0.6-1.3 H CALCIUM (test code = CA) 8.1 mg/dL 8.0-10.5 N [id number] 04:15:00* Test Item Value Reference Range Interpretation Comme nts PHOSPHOROUS (test code = PHOS) 3.1 MG/DL 2.5-4.9 [id number] 04:15:00* Test Item Value Reference Range Interpretation Comme nts MAGNESIUM (test code = MAG) 2.08 mg/dL 1.6-2.6 N NOTE: NEW NORMAL RANGE CALCIUM [id number] 04:15:00* Test Item Value Reference Range Interpretation Comme nts CALCIUM IONIZED (test code = ALONZO) 1.09 MMOL/L 1.09-1.30 N CBC W/AUTO [id number] 03:24:00* Test Item Value Reference Range Interpretation Comme nts WHITE BLOOD CELL (test code = WBC) 12.9 x10 3/uL 4.5-11.0 H RED BLOOD CELL (test code = RBC) 2.86 x10 6/uL 3.54-5.02 L HEMOGLOBIN (test code = HGB) 9.3 g/dL 11.0-15.0 L HEMATOCRIT (test code = HCT) 29.2 % 33.0-45.0 L MEAN CELL VOLUME (test code = MCV) 102.1 fL 81.0-99.0 H MEAN CELL HGB (test code = MCH) 32.5 pg 27.0-33.0 N MEAN CELL HGB CONCETRATION (test code = MCHC) 31.8 g/dL 33.0-37.0 L RED CELL DISTRIBUTION WIDTH CV (test code = RDW) 25.4 % 11.5-14.5 H RED CELL DISTRIBUTION WIDTH SD (test code = RDW-SD) 78.1 fL 37.0-54.0 H PLATELET COUNT (test code = PLT) 217 x10 3/uL 150-400 N MEAN PLATELET VOLUME (test c ode = MPV) 12.0 fL 7.0-9.0 H NEUTROPHIL % (test code = NT%) 76.4 % 56.0-77.0 N IMMATURE GRANULOCYTE % (test code = IG%) 0.3 % 0.0-2.0 N LYMPHOCYTE % (test code = LY%) 8.6 % 14.0-32.0 L MONOCYTE % (test code = MO%) 13.6 % 4.8-9.0 H EOSINOPHIL % (test code = EO%) 0.9 % 0.3-3.7 N BASOPHIL % (test code = BA%) 0.2 % 0.0-2.0 N NUCLEATED RBC % (test code = NRBC%) 0.2 % 0-0 H NEUTROPHIL # (test code = NT#) 9.86 x10 3/uL 2.0-7.6 H IMMATURE GRANULOCYTE # (test code = IG#) 0.04 x10 3/uL 0.00-0.03 H LYMPHOCYTE # (test code = LY#) 1.11 x10 3/uL 1.0-3.8 N MONOCYTE # (test code = MO#) 1.76 x10 3/uL 0.1-0.8 H EOSINOPHIL # (test code = EO#) 0.12 x10 3/uL 0.0-0.2 N BASOPHIL # (test code = BA#) 0.03 x10 3/uL 0.0-0.2 N NUCLEATED RBC # (test code = NRBC#) 0.03 x10 3/uL 0.0-0.1 N MANUAL DIFF REQUIRED (test c ode = MDIFF) NO - DUP VEIN UNI/[id number] 14:23:00 [facility] : 1955 Sex: F Name: JOSEPH ROWLEY [facility] : 1955 Age/S: 68 / F [address] [place] [address] Unit #: [id number] Loc: [place] [address] Phys: Darrel Jang MD Acct: [id number] Dis Date: Status: ADM IN PHONE #: [phone] Exam Date: 07/25/2023 1415 FAX #: [phone] Reason: R/O DVT/ARTERIAL CLOT RIGHT ARM EXAMS: CPT CODE: [id number] DUP VEIN UNI/LTD [id number] EXAM: Right upper extremity duplex venous ultrasound Dictation location: C3 INDICATION: Peripheral arterial disease, CHF, coronary artery disease, rule out DVT/retroclival and right arm COMPARISON: None DISCUSSION: Cormier scale, color Doppler,and spectral waveform analysis images of the right upper extremity deep venous system were performed. The right subclavian artery is unable to be visualized due to bandaging. The cephalic vein is unable to be visualized. The right basilic vein appears thrombosed. The internal jugular vein, axillary, brachial, radial, and ulnar veins are patent and compressible where appropriate. IMPRESSION: 1. Superficial venous thrombosis in the right basilic vein. 2. No evidence of deep venous thrombosis inthe right upper extremity. The right subclavian vein is unable to be evaluated due to overlying bandaging. at 1423 Reported and signed by: Marco Antonio Jenkins M.D. CC: Tanvir Prasad MD; Benito Nugent MD; Darrel Jang MD; Jaxson Grover MD Technologist: Roshni Ramirez [facility] Date/Time: 07/25/2023 (1423) [id number] Orig PrintD/T: S: 07/25/2023 (2442) Probe: PAGE 1 Signed ReportBASIC METABOLIC PANEL 2023-07-25 08:48:00* Test Item Value Reference Range Interpretation Comme nts SODIUM (test code = NA) 127 mEq/L 134-147 L POTASSIUM (test code = K) 5.2 mEq/L 3.4-5.0 H CHLORIDE (test code = CL) 95 mEq/L 100-108 L CARBON DIOXIDE (test code = CO2) 27 mEq/l 21-33 N ANION GAP (test code = GAP) 10 0-20 N GLUCOSE (test code = GLU) 127 mg/dL 77-141 N NOTE: NEW NORMAL RANGE BLOOD UREA NITROGEN (test code = BUN) 32 mg/dL 7-25 H NOTE: NEW NORM AL RANGE GLOMERULAR FILTRATION RATE (test code = GFR) 15.4 80-90 L The Glomerular Filtration Rate is a calculated parameterbased on serum Creatinine, patient age and sex. GFR valuesless than 60 mL/min/1.73 square meters are indicative ofChronic Kidney Disease. Values less than 15 mL/min/1.73square meters indicate Kidney failure. The calculation forGFR is based on the CKD-EPI (2020) calculation. This formulais race indifferent and is the recommended formula for GFRby the National Kidney Foundation for Adults.The GFR will not calculate if the sex is unknown or if thepatient's age is <18 years. CREATININE (test code = CREAT) 3.2 mg/dL 0.6-1.3 H CALCIUM (test code = CA) 8.6 mg/dL 8.0-10.5 N [id number] 08:48:00* Test Item Value Reference Range Interpretation Comme nts PHOSPHOROUS (test code = PHOS) 5.3 MG/DL 2.5-4.9 H [id number] 08:48:00* Test Item Value Reference Range Interpretation Comme nts MAGNESIUM (test code = MAG) 2.25 mg/dL 1.6-2.6 N NOTE: NEW NORMAL RANGE CALCIUM [id number] 08:48:00* Test Item Value Reference Range Interpretation Comme nts CALCIUM IONIZED (test code = ALONZO) 1.08 MMOL/L 1.09-1.30 L CBC W/AUTO [id number] 03:43:00* Test Item Value Reference Range Interpretation Comme nts WHITE BLOOD CELL (test code = WBC) 12.8 x10 3/uL 4.5-11.0 H RED BLOOD CELL (test code = RBC) 2.92 x10 6/uL 3.54-5.02 L HEMOGLOBIN (test code = HGB) 9.0 g/dL 11.0-15.0 L HEMATOCRIT (test code = HCT) 29.8 % 33.0-45.0 L MEAN CELL VOLUME (test code = MCV) 102.1 fL 81.0-99.0 H MEAN CELL HGB (test code = MCH) 30.8 pg 27.0-33.0 N MEAN CELL HGB CONCETRATION (test code = MCHC) 30.2 g/dL 33.0-37.0 L RED CELL DISTRIBUTION WIDTH CV (test code = RDW) 24.6 % 11.5-14.5 H RED CELL DISTRIBUTION WIDTH SD (test code = RDW-SD) 77.5 fL 37.0-54.0 H PLATELET COUNT (test code = PLT) 204 x10 3/uL 150-400 N MEAN PLATELET VOLUME (test c ode = MPV) 12.1 fL 7.0-9.0 H NEUTROPHIL % (test code = NT%) 76.3 % 56.0-77.0 N IMMATURE GRANULOCYTE % (test code = IG%) 0.8 % 0.0-2.0 N LYMPHOCYTE % (test code = LY%) 9.9 % 14.0-32.0 L MONOCYTE % (test code = MO%) 12.7 % 4.8-9.0 H EOSINOPHIL % (test code = EO%) 0.2 % 0.3-3.7 L BASOPHIL % (test code = BA%) 0.1 % 0.0-2.0 N NUCLEATED RBC % (test code = NRBC%) 0.8 % 0-0 H NEUTROPHIL # (test code = NT#) 9.77 x10 3/uL 2.0-7.6 H IMMATURE GRANULOCYTE # (test code = IG#) 0.10 x10 3/uL 0.00-0.03 H LYMPHOCYTE # (test code = LY#) 1.27 x10 3/uL 1.0-3.8 N MONOCYTE # (test code = MO#) 1.63 x10 3/uL 0.1-0.8 H EOSINOPHIL # (test code = EO#) 0.03 x10 3/uL 0.0-0.2 N BASOPHIL # (test code = BA#) 0.01 x10 3/uL 0.0-0.2 N NUCLEATED RBC # (test code = NRBC#) 0.10 x10 3/uL 0.0-0.1 N MANUAL DIFF REQUIRED (test c ode = MDIFF) NO GLUCOSE [id number] 17:18:00* Test Item Value Reference Range Interpretation Comme [facility] GLUCOSE BEDSIDE (test code = GLUBED) 84 MG/DL 70-110 N Performed by cer tified cad operator at [facility] GLUCOSE [id number] 17:18:00* Test Item Value Reference Range Interpretation Comme [facility] GLUCOSE BEDSIDE (test code = GLUBED) 70 MG/DL 70-110 N Performed by cer tified cad operator at [facility] BASIC METABOLIC [id number] 07:44:00* Test Item Value Reference Range Interpretation Comme nts SODIUM (test code = NA) 130 mEq/L 134-147 L POTASSIUM (test code = K) 4.4 mEq/L 3.4-5.0 N CHLORIDE (test code = CL) 96 mEq/L 100-108 L CARBON DIOXIDE (test code = CO2) 28 mEq/l 21-33 N ANION GAP (test code = GAP) 11 0-20 N GLUCOSE (test code = GLU) 142 mg/dL 77-141 H NOTE: NEW NORMAL RANGE BLOOD UREA NITROGEN (test code = BUN) 23 mg/dL 7-25 NOTE: NEW NORM AL RANGE GLOMERULAR FILTRATION RATE (test code = GFR) 18.9 80-90 L The Glomerular Filtration Rate is a calculated parameterbased on serum Creatinine, patient age and sex. GFR valuesless than 60 mL/min/1.73 square meters are indicative ofChronic Kidney Disease. Values less than 15 mL/min/1.73square meters indicate Kidney failure. The calculation forGFR is based on the CKD-EPI (202) calculation. This formulais race indifferent and is the recommended formula for GFRby the National Kidney Foundation for Adults.The GFR will not calculate if the sex is unknown or if thepatient's age is <18 years. CREATININE (test code = CREAT) 2.7 mg/dL 0.6-1.3 H CALCIUM (test code = CA) 8.6 mg/dL 8.0-10.5 N [id number] 07:44:00* Test Item Value Reference Range Interpretation Comme nts PHOSPHOROUS (test code = PHOS) 4.6 MG/DL 2.5-4.9 N [id number] 07:44:00* Test Item Value Reference Range Interpretation Comme nts MAGNESIUM (test code = MAG) 2.16 mg/dL 1.6-2.6 N NOTE: NEW NORMAL RANGE CALCIUM [id number] 07:44:00* Test Item Value Reference Range Interpretation Comme nts CALCIUM IONIZED (test code = ALONZO) 1.10 MMOL/L 1.09-1.30 N CBC W/AUTO [id number] 07:26:00* Test Item Value Reference Range Interpretation Comme nts WHITE BLOOD CELL (test code = WBC) 16.3 x10 3/uL 4.5-11.0 H RED BLOOD CELL (test code = RBC) 2.60 x10 6/uL 3.54-5.02 L HEMOGLOBIN (test code = HGB) 8.3 g/dL 11.0-15.0 L HEMATOCRIT (test code = HCT) 25.8 % 33.0-45.0 L MEAN CELL VOLUME (test code = MCV) 99.2 fL 81.0-99.0 H MEAN CELL HGB (test code = MCH) 31.9 pg 27.0-33.0 N MEAN CELL HGB CONCETRATION (test code = MCHC) 32.2 g/dL 33.0-37.0 L RED CELL DISTRIBUTION WIDTH CV (test code = RDW) 24.0 % 11.5-14.5 H RED CELL DISTRIBUTION WIDTH SD (test code = RDW-SD) 75.2 fL 37.0-54.0 H PLATELET COUNT (test code = PLT) 194 x10 3/uL 150-400 N MEAN PLATELET VOLUME (test code = MPV) 12.4 fL 7.0-9.0 H NEUTROPHIL % (test code = NT%) 84.7 % 56.0-77.0 H IMMATURE GRANULOCYTE % (test code = IG%) 0.7 % 0.0-2.0 N LYMPHOCYTE % (test code = LY%) 6.1 % 14.0-32.0 L MONOCYTE % (test code = MO%) 8.4 % 4.8-9.0 N EOSINOPHIL % (test code = EO%) 0.0 % 0.3-3.7 L BASOPHIL % (test code = BA%) 0.1 % 0.0-2.0 N NUCLEATED RBC % (test code = NRBC%) 0.9 % 0-0 H NEUTROPHIL # (test code = NT#) 13.81 x10 3/uL 2.0-7.6 H IMMATURE GRANULOCYTE # (test code = IG#) 0.11 x10 3/uL 0.00-0.03 H LYMPHOCYTE # (test code = LY#) 1.00 x10 3/uL 1.0-3.8 N MONOCYTE # (test code = MO#) 1.37 x10 3/uL 0.1-0.8 H EOSINOPHIL # (test code = EO#) 0.00 x10 3/uL 0.0-0.2 N BASOPHIL # (test code = BA#) 0.01 x10 3/uL 0.0-0.2 N NUCLEATED RBC # (test code = NRBC#) 0.15 x10 3/uL 0.0-0.1 H MANUAL DIFF REQUIRED (test code = MDIFF) NO GLUCOSE [id number] 09:39:00* Test Item Value Reference Range Interpretation Comme nts GLUCOSE BEDSIDE (test code = GLUBED) 205 MG/DL 70-110 H Performed by cer tified cad operator at [facility] BASIC METABOLIC [id number] 04:37:00* Test Item Value Reference Range Interpretation Comme nts SODIUM (test code = NA) 134 mEq/L 134-147 N POTASSIUM (test code = K) 4.1 mEq/L 3.4-5.0 N CHLORIDE (test code = CL) 98 mEq/L 100-108 L CARBON DIOXIDE (test code = CO2) 29 mEq/l 21-33 N ANION GAP (test code = GAP) 11 0-20 N GLUCOSE (test code = GLU) 215 mg/dL 77-141 H NOTE: NEW NORMAL RANGE BLOOD UREA NITROGEN (test code = BUN) 15 mg/dL 7-25 N NOTE: NEW NORM AL RANGE GLOMERULAR FILTRATION RATE (test code = GFR) 28.8 80-90 L The Glomerular Filtration Rate is a calculated parameterbased on serum Creatinine, patient age and sex. GFR valuesless than 60 mL/min/1.73 square meters are indicative ofChronic Kidney Disease. Values less than 15 mL/min/1.73square meters indicate Kidney failure. The calculation forGFR is based on the CKD-EPI (202) calculation. This formulais race indifferent and is the recommended formula for GFRby the National Kidney Foundation for Adults.The GFR will not calculate if the sex is unknown or if thepatient's age is <18 years. CREATININE (test code = CREAT) 1.9 mg/dL 0.6-1.3 H CALCIUM (test code = CA) 8.4 mg/dL 8.0-10.5 N [id number] 04:37:00* Test Item Value Reference Range Interpretation Comme nts PHOSPHOROUS (test code = PHOS) 3.7 MG/DL 2.5-4.9 N [id number] 04:37:00* Test Item Value Reference Range Interpretation Comme nts MAGNESIUM (test code = MAG) 1.95 mg/dL 1.6-2.6 N NOTE: NEW NORMAL RANGE CALCIUM [id number] 04:37:00* Test Item Value Reference Range Interpretation Comme nts CALCIUM IONIZED (test code = ALONZO) 1.11 MMOL/L 1.09-1.30 N CBC W/AUTO [id number] 04:24:00* Test Item Value Reference Range Interpretation Comme nts WHITE BLOOD CELL (test code = WBC) 14.0 x10 3/uL 4.5-11.0 H RED BLOOD CELL (test code = RBC) 2.84 x10 6/uL 3.54-5.02 L HEMOGLOBIN (test code = HGB) 9.0 g/dL 11.0-15.0 L HEMATOCRIT (test code = HCT) 28.0 % 33.0-45.0 L MEAN CELL VOLUME (test code = MCV) 98.6 fL 81.0-99.0 N MEAN CELL HGB (test code = MCH) 31.7 pg 27.0-33.0 N MEAN CELL HGB CONCETRATION (test code = MCHC) 32.1 g/dL 33.0-37.0 L RED CELL DISTRIBUTION WIDTH CV (test code = RDW) 23.7 % 11.5-14.5 H RED CELL DISTRIBUTION WIDTH SD (test code = RDW-SD) 75.8 fL 37.0-54.0 H PLATELET COUNT (test code = PLT) 203 x10 3/uL 150-400 N MEAN PLATELET VOLUME (test code = MPV) 12.3 fL 7.0-9.0 H NEUTROPHIL % (test code = NT%) 88.9 % 56.0-77.0 H IMMATURE GRANULOCYTE % (test code = IG%) 0.5 % 0.0-2.0 N LYMPHOCYTE % (test code = LY%) 5.8 % 14.0-32.0 L MONOCYTE % (test code = MO%) 4.6 % 4.8-9.0 L EOSINOPHIL % (test code = EO%) 0.1 % 0.3-3.7 L BASOPHIL % (test code = BA%) 0.1 % 0.0-2.0 N NUCLEATED RBC % (test code = NRBC%) 0.4 % 0-0 H NEUTROPHIL # (test code = NT#) 12.44 x10 3/uL 2.0-7.6 H IMMATURE GRANULOCYTE # (test code = IG#) 0.07 x10 3/uL 0.00-0.03 H LYMPHOCYTE # (test code = LY#) 0.81 x10 3/uL 1.0-3.8 L MONOCYTE # (test code = MO#) 0.64 x10 3/uL 0.1-0.8 N EOSINOPHIL # (test code = EO#) 0.01 x10 3/uL 0.0-0.2 N BASOPHIL # (test code = BA#) 0.02 x10 3/uL 0.0-0.2 N NUCLEATED RBC # (test code = NRBC#) 0.05 x10 3/uL 0.0-0.1 N MANUAL DIFF REQUIRED (test code = MDIFF) NO CBC W/AUTO [id number] 13:56:00* Test Item Value Reference Range Interpretation Comme nts WHITE BLOOD CELL (test code = WBC) 11.8 x10 3/uL 4.5-11.0 H RED BLOOD CELL (test code = RBC) 2.71 x10 6/uL 3.54-5.02 L HEMOGLOBIN (test code = HGB) 8.6 g/dL 11.0-15.0 L HEMATOCRIT (test code = HCT) 26.3 % 33.0-45.0 L MEAN CELL VOLUME (test code = MCV) 97.0 fL 81.0-99.0 MEAN CELL HGB (test code = MCH) 31.7 pg 27.0-33.0 N MEAN CELL HGB CONCETRATION (test code = MCHC) 32.7 g/dL 33.0-37.0 L RED CELL DISTRIBUTION WIDTH CV (test code = RDW) 22.6 % 11.5-14.5 H RED CELL DISTRIBUTION WIDTH SD (test code = RDW-SD) 71.6 fL 37.0-54.0 H PLATELET COUNT (test code = PLT) 173 x10 3/uL 150-400 N MEAN PLATELET VOLUME (test c ode = MPV) 11.9 fL 7.0-9.0 H NEUTROPHIL % (test code = NT%) 73.6 % 56.0-77.0 N IMMATURE GRANULOCYTE % (test code = IG%) 0.5 % 0.0-2.0 N LYMPHOCYTE % (test code = LY%) 8.8 % 14.0-32.0 L MONOCYTE % (test code = MO%) 13.4 % 4.8-9.0 H EOSINOPHIL % (test code = EO%) 3.4 % 0.3-3.7 N BASOPHIL % (test code = BA%) 0.3 % 0.0-2.0 N NUCLEATED RBC % (test code = NRBC%) 0.3 % 0-0 H NEUTROPHIL # (test code = NT#) 8.65 x10 3/uL 2.0-7.6 H IMMATURE GRANULOCYTE # (test code = IG#) 0.06 x10 3/uL 0.00-0.03 H LYMPHOCYTE # (test code = LY#) 1.03 x10 3/uL 1.0-3.8 N MONOCYTE # (test code = MO#) 1.58 x10 3/uL 0.1-0.8 H EOSINOPHIL # (test code = EO#) 0.40 x10 3/uL 0.0-0.2 H BASOPHIL # (test code = BA#) 0.03 x10 3/uL 0.0-0.2 N NUCLEATED RBC # (test code = NRBC#) 0.04 x10 3/uL 0.0-0.1 N MANUAL DIFF REQUIRED (test c ode = MDIFF) NO THROMBOPLASTIN TIME [id number] 09:58:00* Test Item Value Reference Range Interpretation Comme [facility] THROMBOPLASTIN TIME PARTIAL (test code = PTT) 29.7 Seconds 25.0-39.5 N Therapeutic Rang e: 50.4 - 88.3 Seconds Effective 02/27/2019 THROMBOPLASTIN TIME [id number] 04:51:00* Test Item Value Reference Range Interpretation Comme nts THROMBOPLASTIN TIME PARTIAL (test code = PTT) 32.6 Seconds 25.0-39.5 N Therapeutic Rang e: 50.4 - 88.3 Seconds Effective 02/27/2019 BASIC METABOLIC [id number] 04:47:00* Test Item Value Reference Range Interpretation Comme nts SODIUM (test code = NA) 129 mEq/L 134-147 L POTASSIUM (test code = K) 4.1 mEq/L 3.4-5.0 N CHLORIDE (test code = CL) 93 mEq/L 100-108 L CARBON DIOXIDE (test code = CO2) 28 mEq/l 21-33 N ANION GAP (test code = GAP) 12 0-20 N GLUCOSE (test code = GLU) 176 mg/dL 77-141 H NOTE: NEW NORMAL RANGE BLOOD UREA NITROGEN (test code = BUN) 26 mg/dL 7-25 H NOTE: NEW NORM AL RANGE GLOMERULAR FILTRATION RATE (test code = GFR) 18.9 80-90 L The Glomerular Filtration Rate is a calculated parameterbased on serum Creatinine, patient age and sex. GFR valuesless than 60 mL/min/1.73 square meters are indicative ofChronic Kidney Disease. Values less than 15 mL/min/1.73square meters indicate Kidney failure. The calculation forGFR is based on the CKD-EPI (202) calculation. This formulais race indifferent and is the recommended formula for GFRby the National Kidney Foundation for Adults.The GFR will not calculate if the sex is unknown or if thepatient's age is <18 years. CREATININE (test code = CREAT) 2.7 mg/dL 0.6-1.3 H CALCIUM (test code = CA) 7.7 mg/dL 8.0-10.5 L [id number] 04:47:00* Test Item Value Reference Range Interpretation Comme nts PHOSPHOROUS (test code = PHOS) 4.1 MG/DL 2.5-4.9 [id number] 04:47:00* Test Item Value Reference Range Interpretation Comme nts MAGNESIUM (test code = MAG) 1.84 mg/dL 1.6-2.6 N NOTE: NEW NORMAL RANGE CALCIUM [id number] 04:47:00* Test Item Value Reference Range Interpretation Comme nts CALCIUM IONIZED (test code = ALONZO) 1.05 MMOL/L 1.09-1.30 L CBC W/AUTO [id number] 04:29:00* Test Item Value Reference Range Interpretation Comme nts WHITE BLOOD CELL (test code = WBC) 12.5 x10 3/uL 4.5-11.0 H RED BLOOD CELL (test code = RBC) 1.73 x10 6/uL 3.54-5.02 L HEMOGLOBIN (test code = HGB) 5.8 g/dL 11.0-15.0 LL Critical result called to INDIRA OWENS at 0425 07/22/23Nurse read back resut and tech confirmed it's correct? Y HEMATOCRIT (test code = HCT) 18.8 % 33.0-45.0 L MEAN CELL VOLUME (test code = MCV) 108.7 fL 81.0-99.0 H MEAN CELL HGB (test code = MCH) 33.5 pg 27.0-33.0 H MEAN CELL HGB CONCETRATION (test code = MCHC) 30.9 g/dL 33.0-37.0 L RED CELL DISTRIBUTION WIDTH CV (test code = RDW) 18.8 % 11.5-14.5 H RED CELL DISTRIBUTION WIDTH SD (test code = RDW-SD) 65.4 fL 37.0-54.0 H PLATELET COUNT (test code = PLT) 190 x10 3/uL 150-400 N MEAN PLATELET VOLUME (test code = MPV) 12.0 fL 7.0-9.0 H NEUTROPHIL % (test code = NT%) 78.1 % 56.0-77.0 H IMMATURE GRANULOCYTE % (test code = IG%) 0.7 % 0.0-2.0 N LYMPHOCYTE % (test code = LY%) 9.4 % 14.0-32.0 L MONOCYTE % (test code = MO%) 9.8 % 4.8-9.0 H EOSINOPHIL % (test code = EO%) 1.8 % 0.3-3.7 N BASOPHIL % (test code = BA%) 0.2 % 0.0-2.0 N NUCLEATED RBC % (test code = NRBC%) 0.4 % 0-0 H NEUTROPHIL # (test code = NT#) 9.78 x10 3/uL 2.0-7.6 H IMMATURE GRANULOCYTE # (test code = IG#) 0.09 x10 3/uL 0.00-0.03 H LYMPHOCYTE # (test code = LY#) 1.18 x10 3/uL 1.0-3.8 N MONOCYTE # (test code = MO#) 1.23 x10 3/uL 0.1-0.8 H EOSINOPHIL # (test code = EO#) 0.23 x10 3/uL 0.0-0.2 H BASOPHIL # (test code = BA#) 0.02 x10 3/uL 0.0-0.2 N NUCLEATED RBC # (test code = NRBC#) 0.05 x10 3/uL 0.0-0.1 N MANUAL DIFF REQUIRED (test code = MDIFF) NO THROMBOPLASTIN TIME [id number] 01:02:00* Test Item Value Reference Range Interpretation Comme nts THROMBOPLASTIN TIME PARTIAL (test code = PTT) 34.4 Seconds 25.0-39.5 Therapeutic Rang e: 50.4 - 88.3 Seconds Effective 02/27/2019 THROMBOPLASTIN TIME [id number] 23:04:00* Test Item Value Reference Range Interpretation Comme nts THROMBOPLASTIN TIME PARTIAL (test code = PTT) 55.1 Seconds 25.0-39.5 H Therapeutic Rang e: 50.4 - 88.3 Seconds Effective 02/27/2019 - XR CHEST 1 [id number] 21:53:00 [facility] : 1955 Sex: F FAX: Tanvir Ann MD [phone] Ranger: St: ADM FAX: Benito Jeronimo MD [phone] FAX: Fanny Chawla AP FAX: Jaxson Woody MD [phone] Name: JOSEPH ROWLEY [facility] : 1955 Age/S: 68/F [address] [place] [address] Unit #: [id number] Loc: [address] [place] [address] Phys: Fanny Chawla APRNNP Acct: [id number] Dis Date: Status: ADM IN PHONE #: [phone] Exam Date: 07/21/20232034 FAX #: [phone] Reason: SOB EXAMS: CPT CODE: [id number] XR CHEST 1 V [id number] EXAM: - XR CHEST 1 V COMPARISON: 07/11/2023 LOCATION: H47 HISTORY: SOB FINDINGS: Single view of the chest. The ventricular assistdevice noted. The right IJ CVC tip overlies the cavoatrial junction. No pneumothorax. Trace bilateral pleural effusions. Mild central pulmonary edema. The mediastinal contours are unremarkable/unchanged. No acute osseous findings are present. IMPRESSION: As above. at 2153 Reported and signed by: Jorgito Novak M.D. CC: Tanvir Barrett MD; Benito Nugent MD; Fanny Chawla; Jaxson Grover MD Technologist: Natasha Casas,RT(R); Jensen Addison RT(R) Trnscrd Date/Time/By: 07/21/2023 (2152) : By: [email or web address] Orig Print D/T: S: 07/21/2023 (2155) PAGE 1 Signed ReportTHROMBOPLASTIN TIME [id number] 21:52:00* Test Item Value Reference Range Interpretation Comme nts THROMBOPLASTIN TIME PARTIAL (test code = PTT) 126.9 Seconds 25.0-39.5 H Therapeutic Rang e: 50.4 - 88.3 Seconds Effective 02/27/2019 PROTHROMBIN [id number] 21:52:00* Test Item Value Reference Range Interpretation Comme nts PROTHROMBIN TIME PATIENT (test code = PTP) 19.4 SECONDS 9.3-12.9 H INTERNATIONAL NORMAL RATIO (test code = INR) 1.7 0.8-1.2 H TARGET INR BY INDICATION Indication INR1. Prophylaxis of venous thrombosis 2.0 - 3.0 (orthopedic surgery), Prophylaxis of venous thrombosis (other than high-risk surgery), Treatment of Deep Vein Thrombosis/Pulmonary Embolism, Prevention of systemic embolism - Tissue heart valves, Acute Myocardial Infarction (to prevent systemic embolism), Valvular heart disease, Atrial Fibrillation, Bileaflet mechanical valve in aortic position.2. Mechanical prosthetic valves (high risk), 2.5 - 3.5 Presence of Lupus Anticoagulant or Antiphospholipid Antibodies, Prevention of systemic embolism - Acute Myocardial Infarction (to prevent recurrent infarct). HGB [id number] 21:13:00* Test Item Value Reference Range Interpretation Comme nts HEMOGLOBIN (test code = HGB) 7.2 g/dL 11.0-15.0 L HEMATOCRIT (test code = HCT) 22.2 % 33.0-45.0 L LACTIC ACID [id number] 20:42:00* Test Item Value Reference Range Interpretation Comme nts LACTIC ACID REPEAT (test cod e = LACTR) 1.5 mmol/l 0.4-1.9 N BASIC METABOLIC [id number] 20:32:00* Test Item Value Reference Range Interpretation Comme nts SODIUM (test code = NA) 128 mEq/L 134-147 L POTASSIUM (test code = K) 4.4 mEq/L 3.4-5.0 N CHLORIDE (test code = CL) 93 mEq/L 100-108 L CARBON DIOXIDE (test code = CO2) 25 mEq/l 21-33 N ANION GAP (test code = GAP) 14 0-20 N GLUCOSE (test code = GLU) 187 mg/dL 77-141 H NOTE: NEW NORMAL RANGE BLOOD UREA NITROGEN (test code = BUN) 21 mg/dL 7-25 N NOTE: NEW NORM AL RANGE GLOMERULAR FILTRATION RATE (test code = GFR) 20.7 80-90 L The Glomerular Filtration Rate is a calculated parameterbased on serum Creatinine, patient age and sex. GFR valuesless than 60 mL/min/1.73 square meters are indicative ofChronic Kidney Disease. Values less than 15 mL/min/1.73square meters indicate Kidney failure. The calculation forGFR is based on the CKD-EPI (2020) calculation. This formulais race indifferent and is the recommended formula for GFRby the National Kidney Foundation for Adults.The GFR will not calculate if the sex is unknown or if thepatient's age is <18 years. CREATININE (test code = CREAT) 2.5 mg/dL 0.6-1.3 H CALCIUM (test code = CA) 7.6 mg/dL 8.0-10.5 L [id number] 20:32:00* Test Item Value Reference Range Interpretation Comme nts PHOSPHOROUS (test code = PHOS) 3.2 MG/DL 2.5-4.9 N [id number] 20:32:00* Test Item Value Reference Range Interpretation Comme nts MAGNESIUM (test code = MAG) 1.88 mg/dL 1.6-2.6 N NOTE: NEW NORMAL RANGE CALCIUM [id number] 20:32:00* Test Item Value Reference Range Interpretation Comme nts CALCIUM IONIZED (test code = ALONZO) 1.01 MMOL/L 1.09-1.30 L CBC W/AUTO [id number] 18:36:00* Test Item Value Reference Range Interpretation Comme nts WHITE BLOOD CELL (test code = WBC) 13.4 x10 3/uL 4.5-11.0 H RED BLOOD CELL (test code = RBC) 2.28 x10 6/uL 3.54-5.02 L HEMOGLOBIN (test code = HGB) 7.8 g/dL 11.0-15.0 L HEMATOCRIT (test code = HCT) 24.5 % 33.0-45.0 L MEAN CELL VOLUME (test code = MCV) 107.5 fL 81.0-99.0 H MEAN CELL HGB (test code = MCH) 34.2 pg 27.0-33.0 H MEAN CELL HGB CONCETRATION (test code = MCHC) 31.8 g/dL 33.0-37.0 L RED CELL DISTRIBUTION WIDTH CV (test code = RDW) 18.6 % 11.5-14.5 H RED CELL DISTRIBUTION WIDTH SD (test code = RDW-SD) 66.3 fL 37.0-54.0 H PLATELET COUNT (test code = PLT) 248 x10 3/uL 150-400 N MEAN PLATELET VOLUME (test code = MPV) 12.2 fL 7.0-9.0 H NEUTROPHIL % (test code = NT%) 78.6 % 56.0-77.0 H IMMATURE GRANULOCYTE % (test code = IG%) 1.1 % 0.0-2.0 N LYMPHOCYTE % (test code = LY%) 9.8 % 14.0-32.0 L MONOCYTE % (test code = MO%) 9.3 % 4.8-9.0 H EOSINOPHIL % (test code = EO%) 1.1 % 0.3-3.7 N BASOPHIL % (test code = BA%) 0.1 % 0.0-2.0 N NUCLEATED RBC % (test code = NRBC%) 1.0 % 0-0 H NEUTROPHIL # (test code = NT#) 10.56 x10 3/uL 2.0-7.6 H IMMATURE GRANULOCYTE # (test code = IG#) 0.15 x10 3/uL 0.00-0.03 H LYMPHOCYTE # (test code = LY#) 1.31 x10 3/uL 1.0-3.8 N MONOCYTE # (test code = MO#) 1.25 x10 3/uL 0.1-0.8 H EOSINOPHIL # (test code = EO#) 0.15 x10 3/uL 0.0-0.2 N BASOPHIL # (test code = BA#) 0.01 x10 3/uL 0.0-0.2 N NUCLEATED RBC # (test code = NRBC#) 0.13 x10 3/uL 0.0-0.1 H MANUAL DIFF REQUIRED (test code = MDIFF) NO LACTIC [id number] 18:29:00* Test Item Value Reference Range Interpretation Comme nts LACTIC ACID (test code = LACT) 2.4 mmol/L 0.4-1.9 H PROTHROMBIN [id number] 18:28:00* Test Item Value Reference Range Interpretation Comme [facility] PROTHROMBIN TIME PATIENT (test code = PTP) 20.2 SECONDS 9.3-12.9 H INTERNATIONAL NORMAL RATIO (test code = INR) 1.8 0.8-1.2 H TARGET INR BY INDICATION Indication INR1. Prophylaxis of venous thrombosis 2.0 - 3.0 (orthopedic surgery), Prophylaxis of venous thrombosis (other than high-risk surgery), Treatment of Deep Vein Thrombosis/Pulmonary Embolism, Prevention of systemic embolism - Tissue heart valves, Acute Myocardial Infarction (to prevent systemic embolism), Valvular heart disease, Atrial Fibrillation, Bileaflet mechanical valve in aortic position.2. Mechanical prosthetic valves (high risk), 2.5 - 3.5 Presence of Lupus Anticoagulant or Antiphospholipid Antibodies, Prevention of systemic embolism - Acute Myocardial Infarction (to prevent recurrent infarct). POC ARTERIAL BLOOD [id number] 16:08:00* Test Item Value Reference Range Interpretation Comme [facility] POC ARTERIAL BLOOD GAS PH (test code = POCPHA) 7.556 7.35-7.45 HH POC ARTERIAL BLOOD GAS PCO2 (test code = [id number]) 29.3 mmHg 35.0-45 LL POC TCO2 ARTERIAL (test code = POCTCO2) 26.9 POC ARTERIAL BLOOD GAS PO2 (test code = IICBT1O) 451.3 mmHg 80-100.0 HH POC HCO3 ARTERIAL (test code = SOUMZW0S) 26.0 MMOL/L 22.0-26.0 N POC BASE EXCESS (test code = POCBEA) 3.7 MMOL/L -4.0-4.0 N POC O2 SATURATION (test code = POCO2S) 100.0 % 90-100 N FIO2 (test code = FIO2A) 100 % PaO2/FiO2 (test code = [id number]) 451.30 mm/Hg ABG DELIVERY (test code = AKASH) Adult Vent ABG VENT MODE (test code = MODEA) anesthesia vent. ABG SITE (test code = SITEA) Central Line [id number] 16:03:00* Test Item Value Reference Range Interpretation Comme nts ACT-ISTAT (test code = ACTI) 287 SEC [id number] H Performed by cer tified cad operator at [facility] [id number] 15:20:00* Test Item Value Reference Range Interpretation Comme nts ACT-ISTAT (test code = ACTI) 329 SEC 74-137 H Performed by cer tified cad operator at [facility] [id number] 15:20:00* Test Item Value Reference Range Interpretation Comme nts ACT-ISTAT (test code = ACTI) 299 SEC 74-137 H Performed by cer tified cad operator at [facility] [id number] 15:20:00* Test Item Value Reference Range Interpretation Comme nts ACT-ISTAT (test code = ACTI) 263 SEC 74-137 H Performed by cer tified cad operator at [facility] [id number] 14:42:00* Test Item Value Reference Range Interpretation Comme nts ACT-ISTAT (test code = ACTI) 203 SEC 74-137 H Performed by cer tified cad operator at [facility] GLUCOSE [id number] 10:56:00* Test Item Value Reference Range Interpretation Comme nts GLUCOSE BEDSIDE (test code = GLUBED) 141 MG/DL 70-110 H Performed by cer [place] cad operator at [facility] BASIC METABOLIC [id number] 10:14:00* Test Item Value Reference Range Interpretation Comme nts SODIUM (test code = NA) 131 mEq/L 134-147 L POTASSIUM (test code = K) 3.8 mEq/L 3.4-5.0 N CHLORIDE (test code = CL) 94 mEq/L 100-108 L CARBON DIOXIDE (test code = CO2) 30 mEq/l 21-33 N ANION GAP (test code = GAP) 11 0-20 N GLUCOSE (test code = GLU) 143 mg/dL 77-141 H NOTE: NEW NORMAL RANGE BLOOD UREA NITROGEN (test code = BUN) 19 mg/dL 7-25 N NOTE: NEW NORM AL RANGE GLOMERULAR FILTRATION RATE (test code = GFR) 20.7 80-90 L The Glomerular Filtration Rate is a calculated parameterbased on serum Creatinine, patient age and sex. GFR valuesless than 60 mL/min/1.73 square meters are indicative ofChronic Kidney Disease. Values less than 15 mL/min/1.73square meters indicate Kidney failure. The calculation forGFR is based on the CKD-EPI (202) calculation. This formulais race indifferent and is the recommended formula for GFRby the National Kidney Foundation for Adults.The GFR will not calculate if the sex is unknown or if thepatient's age is <18 years. CREATININE (test code = CREAT) 2.5 mg/dL 0.6-1.3 H CALCIUM (test code = CA) 8.4 mg/dL 8.0-10.5 N COMMENTS: To be done morning of Heart CathCBC W/AUTO [id number] 10:11:00* Test Item Value Reference Range Interpretation Comme nts WHITE BLOOD CELL (test code = WBC) 11.7 x10 3/uL 4.5-11.0 H RED BLOOD CELL (test code = RBC) 2.67 x10 6/uL 3.54-5.02 L HEMOGLOBIN (test code = HGB) 9.0 g/dL 11.0-15.0 L HEMATOCRIT (test code = HCT) 28.8 % 33.0-45.0 L MEAN CELL VOLUME (test code = MCV) 107.9 fL 81.0-99.0 H MEAN CELL HGB (test code = MCH) 33.7 pg 27.0-33.0 H MEAN CELL HGB CONCETRATION (test code = MCHC) 31.3 g/dL 33.0-37.0 L RED CELL DISTRIBUTION WIDTH CV (test code = RDW) 18.7 % 11.5-14.5 H RED CELL DISTRIBUTION WIDTH SD (test code = RDW-SD) 66.5 fL 37.0-54.0 H PLATELET COUNT (test code = PLT) 248 x10 3/uL 150-400 N MEAN PLATELET VOLUME (test c ode = MPV) 12.3 fL 7.0-9.0 H NEUTROPHIL % (test code = NT%) 73.3 % 56.0-77.0 N IMMATURE GRANULOCYTE % (test code = IG%) 0.6 % 0.0-2.0 N LYMPHOCYTE % (test code = LY%) 12.6 % 14.0-32.0 L MONOCYTE % (test code = MO%) 11.2 % 4.8-9.0 H EOSINOPHIL % (test code = EO%) 2.1 % 0.3-3.7 N BASOPHIL % (test code = BA%) 0.2 % 0.0-2.0 N NUCLEATED RBC % (test code = NRBC%) 0.9 % 0-0 H NEUTROPHIL # (test code = NT#) 8.58 x10 3/uL 2.0-7.6 H IMMATURE GRANULOCYTE # (test code = IG#) 0.07 x10 3/uL 0.00-0.03 H LYMPHOCYTE # (test code = LY#) 1.48 x10 3/uL 1.0-3.8 N MONOCYTE # (test code = MO#) 1.31 x10 3/uL 0.1-0.8 H EOSINOPHIL # (test code = EO#) 0.24 x10 3/uL 0.0-0.2 H BASOPHIL # (test code = BA#) 0.02 x10 3/uL 0.0-0.2 N NUCLEATED RBC # (test code = NRBC#) 0.10 x10 3/uL 0.0-0.1 N MANUAL DIFF REQUIRED (test c ode = MDIFF) NO COMMENTS: To be done morning of Heart CathGLUCOSE [id number] 16:57:00* Test Item Value Reference Range Interpretation Comme nts GLUCOSE BEDSIDE (test code = GLUBED) 91 MG/DL 70-110 N Performed by cer tified cad operator at [facility] GLUCOSE [id number] 17:01:00* Test Item Value Reference Range Interpretation Comme nts GLUCOSE BEDSIDE (test code = GLUBED) 96 MG/DL 70-110 N Performed by cer tified cad operator at [facility] BASIC METABOLIC [id number] 12:57:00* Test Item Value Reference Range Interpretation Comme nts SODIUM (test code = NA) 128 mEq/L 134-147 L POTASSIUM (test code = K) 4.6 mEq/L 3.4-5.0 N CHLORIDE (test code = CL) 93 mEq/L 100-108 L CARBON DIOXIDE (test code = CO2) 20 mEq/l 21-33 L ANION GAP (test code = GAP) 20 0-20 N GLUCOSE (test code = GLU) 160 mg/dL 77-141 H NOTE: NEW NORMAL RANGE BLOOD UREA NITROGEN (test code = BUN) 32 mg/dL 7-25 H NOTE: NEW NORM AL RANGE GLOMERULAR FILTRATION RATE (test code = GFR) 11.1 80-90 L The Glomerular Filtration Rate is a calculated parameterbased on serum Creatinine, patient age and sex. GFR valuesless than 60 mL/min/1.73 square meters are indicative ofChronic Kidney Disease. Values less than 15 mL/min/1.73square meters indicate Kidney failure. The calculation forGFR is based on the CKD-EPI (202) calculation. This formulais race indifferent and is the recommended formula for GFRby the National Kidney Foundation for Adults.The GFR will not calculate if the sex is unknown or if thepatient's age is <18 years. CREATININE (test code = CREAT) 4.2 mg/dL 0.6-1.3 H CALCIUM (test code = CA) 9.1 mg/dL 8.0-10.5 N [id number] 12:57:00* Test Item Value Reference Range Interpretation Comme nts PHOSPHOROUS (test code = PHOS) 4.5 MG/DL 2.5-4.9 N CBC W/AUTO [id number] 12:37:00* Test Item Value Reference Range Interpretation Comme nts WHITE BLOOD CELL (test code = WBC) 13.0 x10 3/uL 4.5-11.0 H RED BLOOD CELL (test code = RBC) 2.47 x10 6/uL 3.54-5.02 L HEMOGLOBIN (test code = HGB) 8.3 g/dL 11.0-15.0 L HEMATOCRIT (test code = HCT) 27.8 % 33.0-45.0 L MEAN CELL VOLUME (test code = MCV) 112.6 fL 81.0-99.0 H MEAN CELL HGB (test code = MCH) 33.6 pg 27.0-33.0 H MEAN CELL HGB CONCETRATION (test code = MCHC) 29.9 g/dL 33.0-37.0 L RED CELL DISTRIBUTION WIDTH CV (test code = RDW) 17.2 % 11.5-14.5 H RED CELL DISTRIBUTION WIDTH SD (test code = RDW-SD) 68.8 fL 37.0-54.0 H PLATELET COUNT (test code = PLT) 271 x10 3/uL 150-400 N MEAN PLATELET VOLUME (test c ode = MPV) 12.3 fL 7.0-9.0 H NEUTROPHIL % (test code = NT%) 76.0 % 56.0-77.0 N IMMATURE GRANULOCYTE % (test code = IG%) 0.9 % 0.0-2.0 N LYMPHOCYTE % (test code = LY%) 9.2 % 14.0-32.0 L MONOCYTE % (test code = MO%) 11.8 % 4.8-9.0 H EOSINOPHIL % (test code = EO%) 1.7 % 0.3-3.7 N BASOPHIL % (test code = BA%) 0.4 % 0.0-2.0 N NUCLEATED RBC % (test code = NRBC%) 0.4 % 0-0 H NEUTROPHIL # (test code = NT#) 9.87 x10 3/uL 2.0-7.6 H IMMATURE GRANULOCYTE # (test code = IG#) 0.12 x10 3/uL 0.00-0.03 H LYMPHOCYTE # (test code = LY#) 1.20 x10 3/uL 1.0-3.8 N MONOCYTE # (test code = MO#) 1.54 x10 3/uL 0.1-0.8 H EOSINOPHIL # (test code = EO#) 0.22 x10 3/uL 0.0-0.2 H BASOPHIL # (test code = BA#) 0.05 x10 3/uL 0.0-0.2 N NUCLEATED RBC # (test code = NRBC#) 0.05 x10 3/uL 0.0-0.1 N MANUAL DIFF REQUIRED (test c ode = MDIFF) NO GLUCOSE [id number] 19:42:00* Test Item Value Reference Range Interpretation Comme nts GLUCOSE BEDSIDE (test code = GLUBED) 91 MG/DL 70-110 N Performed by cer tified cad operator at [facility] GLUCOSE [id number] 17:56:00* Test Item Value Reference Range Interpretation Comme nts GLUCOSE BEDSIDE (test code = GLUBED) 45 MG/DL 70-110 L Performed by cer tified cad operator at [facility] GLUCOSE [id number] 12:34:00* Test Item Value Reference Range Interpretation Comme nts GLUCOSE BEDSIDE (test code = GLUBED) 163 MG/DL 70-110 H Performed by cer tified cad operator at [facility] B-TYPE NATRIURETIC [id number] 09:00:00* Test Item Value Reference Range Interpretation Comme [facility] B-TYPE NATRIURETIC PEPTIDE (test code = BNP) > 5000.0 PG/ML 0-100 H HGBA1C%2023-07-17 08:22:00* Test Item Value Reference Range Interpretation Comme [facility] HGBA1C% (test code = HGBA1C%) 7.5 %A1C 4.8-6.0 H BASIC METABOLIC [id number] 08:16:00* Test Item Value Reference Range Interpretation Comme nts SODIUM (test code = NA) 134 mEq/L 134-147 N POTASSIUM (test code = K) 4.5 mEq/L 3.4-5.0 N CHLORIDE (test code = CL) 96 mEq/L 100-108 L CARBON DIOXIDE (test code = CO2) 21 mEq/l 21-33 N ANION GAP (test code = GAP) 21 0-20 H GLUCOSE (test code = GLU) 241 mg/dL 77-141 H NOTE: NEW NORMAL RANGE BLOOD UREA NITROGEN (test code = BUN) 21 mg/dL 7-25 N NOTE: NEW NORM AL RANGE GLOMERULAR FILTRATION RATE (test code = GFR) 18.9 80-90 L The Glomerular Filtration Rate is a calculated parameterbased on serum Creatinine, patient age and sex. GFR valuesless than 60 mL/min/1.73 square meters are indicative ofChronic Kidney Disease. Values less than 15 mL/min/1.73square meters indicate Kidney failure. The calculation forGFR is based on the CKD-EPI (2020) calculation. This formulais race indifferent and is the recommended formula for GFRby the National Kidney Foundation for Adults.The GFR will not calculate if the sex is unknown or if thepatient's age is <18 years. CREATININE (test code = CREAT) 2.7 mg/dL 0.6-1.3 H CALCIUM (test code = CA) 9.3 mg/dL 8.0-10.5 N LIPID PROFILE (CORONARY RISK)2023-07-17 08:16:00* Test Item Value Reference Range Interpretation Comme nts TRIGLYCERIDES (test code = TRIG) 158 mg/dL 40-150 H CHOLESTEROL (test code = CHOL) 122 mg/dL <200 CHOLESTEROL/HDL RATIO (test code = CHOLHDL) 5.30 RATIO 3.27-4.44 H RISK ASSOCIATED WITH CHOL/HDL RATIOS: RISK MALE FEMALE1/2 AVERAGE 3.43 3.27AVERAGE 4.97 4.442X AVERAGE 9.55 7.053X AVERAGE 23.39 11.04 NOTE THAT THE REFERENCE VALUE IS RELATEDTO RISK LEVELS RECOMMENDED BY THE NATL.HEART, LUNG, AND BLOOD INST. HDL CHOLESTEROL (test code = HDL) 23.0 MG/DL 40-60 L Note change in REFERENCE RANGE due to change in REAGENT.HDL Interpretation < 40.0 mg/dL Low (undesirable, high risk)> 60.0 mg/dL High (desirable, low risk) Reference interval for healthy adults was established by theNational Cholesterol Education Program (NCEP). LIPOPROTEIN LDL (test code = LDL) 77.0 mg/dL 0-100 N <100 XPHOPMK01 0-129 NEAR OPTIMAL/ABOVE [id number] HIGH>VD=836 VERY HIGH*Guidelines provided by the National Cholesterol EducationProgram Adult Treatment Panel III [id number] 08:16:00* Test Item Value Reference Range Interpretation Comme nts MAGNESIUM (test code = MAG) 2.09 mg/dL 1.6-2.6 N NOTE: NEW NORMAL RANGE CBC W/AUTO [id number] 07:07:00* Test Item Value Reference Range Interpretation Comme nts WHITE BLOOD CELL (test code = WBC) 11.6 x10 3/uL 4.5-11.0 H RED BLOOD CELL (test code = RBC) 2.48 x10 6/uL 3.54-5.02 L HEMOGLOBIN (test code = HGB) 8.2 g/dL 11.0-15.0 L HEMATOCRIT (test code = HCT) 26.4 % 33.0-45.0 L MEAN CELL VOLUME (test code = MCV) 106.5 fL 81.0-99.0 H MEAN CELL HGB (test code = MCH) 33.1 pg 27.0-33.0 H MEAN CELL HGB CONCETRATION (test code = MCHC) 31.1 g/dL 33.0-37.0 L RED CELL DISTRIBUTION WIDTH CV (test code = RDW) 16.9 % 11.5-14.5 H RED CELL DISTRIBUTION WIDTH SD (test code = RDW-SD) 65.3 fL 37.0-54.0 H PLATELET COUNT (test code = PLT) 279 x10 3/uL 150-400 N MEAN PLATELET VOLUME (test c ode = MPV) 11.9 fL 7.0-9.0 H NEUTROPHIL % (test code = NT%) 78.3 % 56.0-77.0 H IMMATURE GRANULOCYTE % (test code = IG%) 0.3 % 0.0-2.0 N LYMPHOCYTE % (test code = LY%) 11.4 % 14.0-32.0 L MONOCYTE % (test code = MO%) 9.5 % 4.8-9.0 H EOSINOPHIL % (test code = EO%) 0.3 % 0.3-3.7 N BASOPHIL % (test code = BA%) 0.2 % 0.0-2.0 N NUCLEATED RBC % (test code = NRBC%) 0.0 % 0-0 N NEUTROPHIL # (test code = NT#) 9.07 x10 3/uL 2.0-7.6 H IMMATURE GRANULOCYTE # (test code = IG#) 0.04 x10 3/uL 0.00-0.03 H LYMPHOCYTE # (test code = LY#) 1.32 x10 3/uL 1.0-3.8 N MONOCYTE # (test code = MO#) 1.10 x10 3/uL 0.1-0.8 H EOSINOPHIL # (test code = EO#) 0.03 x10 3/uL 0.0-0.2 N BASOPHIL # (test code = BA#) 0.02 x10 3/uL 0.0-0.2 N NUCLEATED RBC # (test code = NRBC#) 0.00 x10 3/uL 0.0-0.1 N MANUAL DIFF REQUIRED (test c ode = MDIFF) NO GLUCOSE [id number] 19:15:00* Test Item Value Reference Range Interpretation Comme nts GLUCOSE BEDSIDE (test code = GLUBED) 98 MG/DL 70-110 N Performed by cer tified cad operator at [facility] GLUCOSE [id number] 08:35:00* Test Item Value Reference Range Interpretation Comme nts GLUCOSE BEDSIDE (test code = GLUBED) 226 MG/DL 70-110 H Performed by cer tified cad operator at [facility] - CTA ABD PEL W [id number] 21:58:00 [facility] 1955 Sex: F Name: JOSEPH ROWLEY [facility] : 1955 Age/S: 68 / F [address] [address] Unit #: [id number] Loc: LALI Perez [address] Phys: Kimberly Pak MD Acct: [id number] Dis Date: Status: ADM IN PHONE #: [phone] Exam Date: 07/15/2023 1156 FAX #: [phone] Reason: MESENTRIC ARTERIES. EXAMS:CPT CODE: [id number] CTA ABD PEL W CONT 85994 H 20 TIME OF STUDY: 07/15/2023 10:04 AM REASON FOR EXAM: CHECK SUBCLAVIAN and mesenteric ARTERIES COMPARISON: None TECHNIQUE: Pre and postcontrast enhanced thin section helical images were obtained through the chest, abdomen and pelvis with the bolus of contrast timed for the optimal opacification of the arterial structures per departmental CTA protocol; Post- processing, retro reconstruction, and interpretation of angiographic images of the vessels was performed. MIP reconstructions were performed on an independent workstation and reviewed One or more of the following radiation dose reduction techniques was used: automated exposure control, adjustment of mA and/or KV according to patient size, and/or utilization of iterative reconstruction techn ique. FINDINGS: CTA chest: The thoracic aorta is normal in course and caliber. There is mild to moderate diffuse atherosclerotic intimal calcification seen. However, there is no evidence of aneurysm or dissection. Ascending aorta, descending aorta, and pulmonary artery are normal in course and caliber. The arch vessels are unremarkable. There is no evidence of subclavian stenosis. Retropharyngealcourse of the common carotid arteries noted. A right chest tunneled dialysis catheter is in place. The heart size is within normal limits. There is coronary atherosclerosis. No pericardial effusion is seen. There is pleural effusions are present. There is no axillary, mediastinal, or hilar adenopathy. Lung windows demonstrate no consolidation, nodules, or other parenchymal abnormality. Osseous structures demonstrate age appropriate changes without focal lytic or blastic lesions. PAGE 1 Signed Report (CONTINUED) Name: JOSEPH ROWLEY [facility] : 1955 Age/S: 68 / F [address] [place] [address] Unit #: [id number] Loc: LALI Perez [address] Phys: Kimberly Pak MD Acct: [id number] Dis Date: Status: ADM IN PHONE #: [phone] Exam Date: 07/15/2023 1156 FAX #: [phone] Reason: MESENTRIC ARTERIES. EXAMS: CPT CODE: [id number] CTA ABD PEL W CONT 03181 (Continued) CTA abdomen: There is atherosclerosis of the abdominal aorta without aneurysm or dissection. The celiac axis, the superior and inferior mesenteric arteries are patent. There are single renal arteries bilaterally. There is no evidence of stones, hydronephrosis, or other parenchymal abnormality . Small atherosclerotic plaques are noted at the origins of the renal arteries bilaterally. There is however, no significant stenosis. There is cholelithiasis present. No retroperitoneal mass or fluid collection is seen. Thereis no adenopathy. The liver, spleen, pancreas and adrenal glands are unremarkable. There is no bowel obstruction or free intraperitoneal air. CTA of pelvis: There is calcific atherosclerosis of the i liac arteries. 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 The bilateral internal iliac arteries are patent. There is reconstitution of the common femoral arteries bilaterally via collaterals from the internal iliac arteries, circumflex iliac arteries, and inferior epigastric arteries. IMPRESSION: 1. No evidence of aneurysm or dissection involving the thoracic or abdominal aorta. 2. No evidence of carotid or subclavian stenosis. 3. 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 4. Cholelithiasis. at 2158 Reported and signed by: Jordy Mitchell M.D. CC: Kimberly Pak MD; Tanvir Prasad MD; Benito Nugent MD; Cinthya Leiva MD; Jaxson Grover MD Technologist:Christiano Coburn Jr, RT(R)(CT) CTDI: DLP: Trnscb Date/Time: 07/15/2023 (2157) [email or web address] Orig Print D/T: S: 07/15/2023 (2200) PAGE 2 Signed Report- CT ANGIO [id number] 21:58:00 [facility] : 1955 Sex: F Name: JOSEPH ROWLEY : 1955 Age/S: 68 / F [address] [place] [address] Unit #: [id number] Loc: LALI Perez [address] Phys: Kimberly Pak MD Acct: [id number] Dis Date: Status: ADM IN PHONE #: [phone] Exam Date: 07/15/2023 1156 FAX #: [phone] Reason: CHECK SUBCLAVIAN ARTERIESEXAMS: CPT CODE: [id number] CT ANGIO CHEST 32417 H 20 TIME OF STUDY: 07/15/2023 10:04 AM REASON FOR EXAM: CHECK SUBCLAVIAN and mesenteric ARTERIES COMPARISON: None TECHNIQUE: Pre and postcontrast enhanced thin section helical images were obtained through the chest, abdomen and pelvis with the bolus ofcontrast timed for the optimal opacification of the arterial structures per departmental CTA protocol; Post- processing, retro reconstruction, and interpretation of angiographic images of the vessels was performed. MIP reconstructions were performed on an independent workstation and reviewed One or more of the following radiation dose reduction techniques was used: automated exposure control, adjustment of mA and/or KV according to patient size, and/or utilization of iterative reconstruction tech nique. FINDINGS: CTA chest: The thoracic aorta is normal in course and caliber. There is mild to moderate diffuse atherosclerotic intimal calcification seen. However, there is no evidence of aneurysmor dissection. Ascending aorta, descending aorta, and pulmonary artery are normal in course and caliber. The arch vessels are unremarkable. There is no evidence of subclavian stenosis. Retropharyngeal course of the common carotid arteries noted. A right chest tunneled dialysis catheter is in place. The heart size is within normal limits. There is coronary atherosclerosis. No pericardial effusionis seen. There is pleural effusions are present. There is no axillary, mediastinal, or hilar adenopathy. Lung windows demonstrate no consolidation, nodules, or other parenchymal abnormality. Osseous structures demonstrate age appropriate changes without focal lytic or blastic lesions. PAGE 1 SignedReport (CONTINUED) Name: JOSEPH ROWLEY : 1955 Age/S: 68 / F [address] [place] [address] Unit #: [id number] Loc: LALI Perez [address] Phys: Kimberly Pak MD Acct: [id number] Dis Date: Status: ADM IN PHONE #: [phone] Exam Date: 07/15/2023 1156 FAX #: [phone] Reason: CHECK SUBCLAVIAN ARTERIES EXAMS: CPT CODE: [id number] CT ANGIO CHEST 21150 (Continued) CTA abdomen: There is atherosclerosis of the abdominal aorta without aneurysm or dissection. The celiac axis, the superior and inferior mesenteric arteries are patent. There are single renal arteries bilaterally. There is no evidence of stones, hydronephrosis, or other parenchymal abnormality . Small atherosclerotic plaques are noted at the origins of the renal arteries bilaterally. There is however, no significant stenosis. There is cholelithiasis present. No retroperitoneal mass or fluid collection is seen. There is no adenopathy. The liver, spleen, pancreas and adrenal glands are unremarkable. There is no bowel obstruction or free intraperitoneal air. CTA of pelvis: There is calcific atherosclerosis of the iliac arteries. 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 The bilateral internal iliac arteries are patent. There is reconstitution of the common femoral arteries bilaterally via collaterals from the internal iliacarteries, circumflex iliac arteries, and inferior epigastric arteries. IMPRESSION: 1. No evidence of aneurysm or dissection involving the thoracic or abdominal aorta. 2. No evidence of carotid or subclavian stenosis. 3. 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 4. Cholelithiasis. at 2158 Reported and signed by: Jordy Mitchell M.D. CC: Kimberly Pak MD; Tanvir Prasad MD; Benito Nugent MD; Cinthya Leiva MD; Jaxson Grover MD Technologist:Christiano Coburn Jr, RT(R)(CT) CTDI: DLP: Trnscb Date/Time: 07/15/2023 (2157) [email or web address] Orig Print D/T: S: 07/15/2023(2200) PAGE 2 Signed Report- CT ANGIO [id number] 21:12:00 [facility] SYLWIA ISAACSName: JOSEPH ROWLEY : 1955 Sex: F Name: JOSEPH ROWLEY [facility] : 1955 Age/S: 68 / F [address] Unit #: [id number] Loc: ChrisLALI [address] Phys: Kimberly Pak MD Acct: [id number] Dis Date: Status: ADM IN PHONE #: [phone] Exam Date: 07/15/2023 115 FAX #: [phone] Reason: CAROTID STENOSIS ReportHas Been Amended EXAMS: CPT CODE: [id number] CT ANGIO NECK 17509 Addendum - 07/15/2023 SIGNED 07/15/2023 ADDENDUM: [id number] CT/CTANNKWWO Addendum: Findings were discussed with Kimberly Pak MD on 07/15/2023 9:11 PM approximately. FOR INTERNAL CODING PURPOSES ONLY RESULT CODE: CVR at 2112 Reported and signed by: Jordy Mitchell M.D. Report H 20 EXAM: - CTA HEAD, - CT ANGIO NECK HISTORY: CAROTID STENOSIS TECHNIQUE: CTA head: Axial CT images were obtained from the skull base to the vertex after intravenous contrast utilizing CTA protocol. Coronal and sagittal maximum intensity projection images areprovided. CTA neck: Axial CT images were obtained from the aortic arch to the skull base after intravenous contrast utilizing CTA protocol. Coronal and sagittal maximum intensity projection images are provided. There is significant motion degradation of images. One or more of the following radiation dose reduction techniques was used: automated exposure control, adjustment of mA and/or KV according to patient size, and/or utilization of iterative reconstruction technique. COMPARISON: None available time of interpretation. FINDINGS: PAGE 1 Signed Report (CONTINUED) Name: JOSEPH ROWLEY : 1955 Age/S: 68 / F [address] [place] [address] Unit #: [id number] Loc: [place] [address] Phys: Kimberly Pak MD Acct: [id number] Dis Date: Status: ADM IN PHONE #: [phone] Exam Date: 07/15/2023 1157 FAX #: [phone] Reason: CAROTID STENOSIS Report Has Been Amended EXAMS: CPT CODE: [id number] CT ANGIO NECK 11265 (Continued) For the purposes of this dictation, hemodynamically significant stenosis is characterized as greater than 50%. CTA head: The petrous, cavernous,and clinoid internal carotid arteries do not demonstrate hemodynamically significant stenoses. The anterior and left middle cerebral arteries do not demonstrate hemodynamically significant stenoses. There are multiple filling defects noted in the right M1. [place] of both vertebral arteries intothe basilar. Basilar artery and posterior cerebral arteries are do not demonstrate hemodynamically s ignificant stenoses. The dural venous sinuses are patent. CTA neck: The origins of the great vessels from the aortic arch do not demonstrate hemodynamically significant stenoses. The bilateral common carotid arteries and bulbs are without hemodynamically significant stenosis. The internal carotid arteries do not demonstrate hemodynamically significant stenosis. The left vertebral artery is dominant. No incidental soft tissue findings. IMPRESSION: 1. Multiple filling defects in the right M1 segment suspicious for thrombus. These are of uncertain chronicity. Correlate with symptoms and consider further evaluation with conventional angiogram and MRI of the brain. 2. No evidence of carotid st enosis. PAGE 2 Signed Report (CONTINUED) Name: JOSEPH ROWLEY : 1955 Age/S: 68 / F [address] [place] [address] Unit #: [id number] Loc: [place] [address] Phys: Kimberly Pak MD Acct: [id number] Dis Date: Status: ADM IN PHONE #: [phone] Exam Date: 07/15/20231156 FAX #: [phone] Reason: CAROTID STENOSIS Report Has Been Amended EXAMS: CPT CODE: [id number] CT ANGIO NECK 05786 (Continued) at 2054 Reported and signed by: Jordy Mitchell M.D. CC: Kimberly Pak MD; Tanvir Prasad MD; Benito Nugent MD; Cinthya Leiva MD; Jaxson Grover MD Technologist:Christiano Coburn Jr, RT(R)(CT) CTDI: DLP: Trnscb Date/Time: 07/15/2023 (2054) [email or web address] Orig Print D/T: S: 07/15/2023 (2058) PAGE 3 Signed Report- CTA [id number] 21:12:00 [facility] : 1955 Sex: F Name: JOSEPH ROWLEY [facility] : 1955 Age/S: 68 / F [address] [place] [address] Unit #: [id number] Loc: [place] [address] Phys: Kimberly Pak MD Acct: [id number] Dis Date: Status: ADM IN PHONE #: [phone] Exam Date: 07/15/20231156 FAX #: [phone] Reason: CAROTID STENOSIS Report Has Been Amended EXAMS: CPT CODE: [id number] CTA HEAD 63058 Addendum - 07/15/2023 SIGNED 07/15/2023 ADDENDUM: [id number] CT/CTANHDWWO Addendum: Findings were discussed with Kimberly Pak MD on 07/15/2023 9:11 PM approximately. FOR INTERNAL CODING PURPOSES ONLY RESULT CODE: CVR at 2112 Reported and signed by: Jordy Mitchell M.D. Report H 20 EXAM: - CTA HEAD, - CT ANGIO NECK HISTORY: CAROTID STENOSIS T ECHNIQUE: CTA head: Axial CT images were obtained from the skull base to the vertex after intravenous contrast utilizing CTA protocol. Coronal and sagittal maximum intensity projection images are provided. CTA neck: Axial CT images were obtained from the aortic arch to the skull base after intravenous contrast utilizing CTA protocol. Coronal and sagittal maximum intensity projection images are provided. There is significant motion degradation of images. One or more of the following radiation dose reduction techniques was used: automated exposure control, adjustment of mA and/or KV according to patient size, and/or utilization of iterative reconstruction technique. COMPARISON: None available time of interpretation. FINDINGS: PAGE 1 Signed Report (CONTINUED) Name: JOSEPH ROWLEY [facility] : 1955 Age/S: 68 / F [address] [place] [address] Unit #: [id number] Loc: [place] [address] Phys: [place]ly Pak MD Acct: [id number] Dis Date: Status: ADM IN PHONE #: [phone] Exam Date: 07/15/2023 1157 FAX #: [phone] Reason: CAROTID STENOSIS Report Has Been Amended EXAMS:CPT CODE: [id number] CTA HEAD 78171 (Continued) For the purposes of this dictation, hemodynamically significant stenosis is characterized as greater than 50%. CTA head: The petrous, cavernous, and clinoid internal carotid arteries do not demonstrate hemodynamically significant stenoses. The anterior and left middle cerebral arteries do not demonstrate hemodynamically significant stenoses. There are multiple filling defects noted in the right M1. [place] of both vertebral arteries into the basilar. Basilar artery and posterior cerebral arteries are do not demonstrate hemodynamically significant stenoses. The dural venous sinuses are patent. CTA neck: The origins of the great vessels from the aortic arch do not demonstrate hemodynamically significant stenoses. The bilateral common carotidarteries and bulbs are without hemodynamically significant stenosis. The internal carotid arteries do not demonstrate hemodynamically significant stenosis. The left vertebral artery is dominant. No incidental soft tissue findings. IMPRESSION: 1. Multiple filling defects in the right M1 segment suspicious for thrombus. These are of uncertain chronicity. Correlate with symptoms and consider furtherevaluation with conventional angiogram and MRI of the brain. 2. No evidence of carotid stenosis. PAGE 2 Signed Report (CONTINUED) Name: JOSEPH ROWLEY [facility] : 1955 Age/S: 68 / F [address] [place] [address] Unit #: [id number] Loc: [place] [address] Phys: [place]ly Pak MD Acct: [id number] Dis Date: Status: ADM IN PHONE #: [phone] Exam Date: 07/15/2023 1157 FAX #: [phone]: CAROTID STENOSIS Report Has Been Amended EXAMS: CPT CODE: [id number] CTA HEAD 10433 (Continued) at 2054 Reported and signedby: Jordy Mitchell M.D. CC: [place]ly Pak MD; Tanvir Prasad MD; Benito Nugent MD; Cinthya Leiva MD; Jaxson Grover MD Technologist:Christiano Coburn Jr, RT(R)(CT) CTDI: DLP: Trnscb Date/Time: 07/15/2023 (2054) t.SDR.SI1 Orig Print D/T: S: 07/15/2023 (2058) PAGE 3 Signed ReportCB W/AUTO [id number] 08:11:00* Test Item Value Reference Range Interpretation Comme nts WHITE BLOOD CELL (test code = WBC) 10.8 x10 3/uL 4.5-11.0 N RED BLOOD CELL (test code = RBC) 2.69 x10 6/uL 3.54-5.02 L HEMOGLOBIN (test code = HGB) 8.9 g/dL 11.0-15.0 L HEMATOCRIT (test code = HCT) 28.5 % 33.0-45.0 L MEAN CELL VOLUME (test code = MCV) 105.9 fL 81.0-99.0 H MEAN CELL HGB (test code = MCH) 33.1 pg 27.0-33.0 H MEAN CELL HGB CONCETRATION (test code = MCHC) 31.2 g/dL 33.0-37.0 L RED CELL DISTRIBUTION WIDTH CV (test code = RDW) 17.0 % 11.5-14.5 H RED CELL DISTRIBUTION WIDTH SD (test code = RDW-SD) 65.1 fL 37.0-54.0 H PLATELET COUNT (test code = PLT) 337 x10 3/uL 150-400 N MEAN PLATELET VOLUME (test c ode = MPV) 11.4 fL 7.0-9.0 H NEUTROPHIL % (test code = NT%) 71.8 % 56.0-77.0 N IMMATURE GRANULOCYTE % (test code = IG%) 0.4 % 0.0-2.0 N LYMPHOCYTE % (test code = LY%) 13.7 % 14.0-32.0 L MONOCYTE % (test code = MO%) 13.4 % 4.8-9.0 H EOSINOPHIL % (test code = EO%) 0.5 % 0.3-3.7 N BASOPHIL % (test code = BA%) 0.2 % 0.0-2.0 N NUCLEATED RBC % (test code = NRBC%) 0.0 % 0-0 N NEUTROPHIL # (test code = NT#) 7.79 x10 3/uL 2.0-7.6 H IMMATURE GRANULOCYTE # (test code = IG#) 0.04 x10 3/uL 0.00-0.03 H LYMPHOCYTE # (test code = LY#) 1.48 x10 3/uL 1.0-3.8 N MONOCYTE # (test code = MO#) 1.45 x10 3/uL 0.1-0.8 H EOSINOPHIL # (test code = EO#) 0.05 x10 3/uL 0.0-0.2 N BASOPHIL # (test code = BA#) 0.02 x10 3/uL 0.0-0.2 N NUCLEATED RBC # (test code = NRBC#) 0.00 x10 3/uL 0.0-0.1 N MANUAL DIFF REQUIRED (test c ode = MDIFF) NO BASIC METABOLIC [id number] 07:12:00* Test Item Value Reference Range Interpretation Comme nts SODIUM (test code = NA) 135 mEq/L 134-147 N POTASSIUM (test code = K) 3.5 mEq/L 3.4-5.0 N CHLORIDE (test code = CL) 98 mEq/L 100-108 L CARBON DIOXIDE (test code = CO2) 28 mEq/l 21-33 N ANION GAP (test code = GAP) 13 0-20 N GLUCOSE (test code = GLU) 82 mg/dL 77-141 NOTE: NEW NORMAL RANGE BLOOD UREA NITROGEN (test code = BUN) 23 mg/dL 7-25 N NOTE: NEW NORM AL RANGE GLOMERULAR FILTRATION RATE (test code = GFR) 17.3 80-90 L The Glomerular Filtration Rate is a calculated parameterbased on serum Creatinine, patient age and sex. GFR valuesless than 60 mL/min/1.73 square meters are indicative ofChronic Kidney Disease. Values less than 15 mL/min/1.73square meters indicate Kidney failure. The calculation forGFR is based on the CKD-EPI (2020) calculation. This formulais race indifferent and is the recommended formula for GFRby the National Kidney Foundation for Adults.The GFR will not calculate if the sex is unknown or if thepatient's age is <18 years. CREATININE (test code = CREAT) 2.9 mg/dL 0.6-1.3 H CALCIUM (test code = CA) 9.3 mg/dL 8.0-10.5 N [id number] 07:12:00* Test Item Value Reference Range Interpretation Comme nts MAGNESIUM (test code = MAG) 2.09 mg/dL 1.6-2.6 N NOTE: NEW NORMAL RANGE AB HEPATITIS B [id number] 06:12:00* Test Item Value Reference Range Interpretation Comme nts AB HEPATITIS B SURFACE (test code = HBSAB) < 3.1 mIU/mL See_Comment L Status of Immuni ty Anti-HBs Level Inconsi stent with Immunity 0.0 - 9.9Consistent with Immunity >9.9Performed At: [facility] [address] [place], [place] [id number] Skip Carter MD Ph:[phone] [Automated message] The system which generated this result transmitted reference range: Immunity>9.9. The reference range was not used to interpret this result as normal/abnormal. BASIC METABOLIC [id number] 05:21:00* Test Item Value Reference Range Interpretation Comme nts SODIUM (test code = NA) 130 mEq/L 134-147 L POTASSIUM (test code = K) 3.9 mEq/L 3.4-5.0 N CHLORIDE (test code = CL) 95 mEq/L 100-108 L CARBON DIOXIDE (test code = CO2) 24 mEq/l 21-33 N ANION GAP (test code = GAP) 15 0-20 N GLUCOSE (test code = GLU) 144 mg/dL 77-141 H NOTE: NEW NORMAL RANGE BLOOD UREA NITROGEN (test code = BUN) 41 mg/dL 7-25 H NOTE: NEW NORM AL RANGE GLOMERULAR FILTRATION RATE (test code = GFR) 10.5 80-90 L The Glomerular Filtration Rate is a calculated parameterbased on serum Creatinine, patient age and sex. GFR valuesless than 60 mL/min/1.73 square meters are indicative ofChronic Kidney Disease. Values less than 15 mL/min/1.73square meters indicate Kidney failure. The calculation forGFR is based on the CKD-EPI (2020) calculation. This formulais race indifferent and is the recommended formula for GFRby the National Kidney Foundation for Adults.The GFR will not calculate if the sex is unknown or if thepatient's age is <18 years. CREATININE (test code = CREAT) 4.4 mg/dL 0.6-1.3 H CALCIUM (test code = CA) 9.4 mg/dL 8.0-10.5 N [id number] 05:21:00* Test Item Value Reference Range Interpretation Comme nts MAGNESIUM (test code = MAG) 2.09 mg/dL 1.6-2.6 N NOTE: NEW NORMAL RANGE CBC W/AUTO [id number] 04:59:00* Test Item Value Reference Range Interpretation Comme nts WHITE BLOOD CELL (test code = WBC) 13.3 x10 3/uL 4.5-11.0 H RED BLOOD CELL (test code = RBC) 2.86 x10 6/uL 3.54-5.02 L HEMOGLOBIN (test code = HGB) 9.6 g/dL 11.0-15.0 L HEMATOCRIT (test code = HCT) 30.5 % 33.0-45.0 L MEAN CELL VOLUME (test code = MCV) 106.6 fL 81.0-99.0 H MEAN CELL HGB (test code = MCH) 33.6 pg 27.0-33.0 H MEAN CELL HGB CONCETRATION (test code = MCHC) 31.5 g/dL 33.0-37.0 L RED CELL DISTRIBUTION WIDTH CV (test code = RDW) 16.3 % 11.5-14.5 H RED CELL DISTRIBUTION WIDTH SD (test code = RDW-SD) 62.7 fL 37.0-54.0 H PLATELET COUNT (test code = PLT) 385 x10 3/uL 150-400 N MEAN PLATELET VOLUME (test code = MPV) 11.5 fL 7.0-9.0 H NEUTROPHIL % (test code = NT%) 78.5 % 56.0-77.0 H IMMATURE GRANULOCYTE % (test code = IG%) 0.6 % 0.0-2.0 N LYMPHOCYTE % (test code = LY%) 11.4 % 14.0-32.0 L MONOCYTE % (test code = MO%) 9.2 % 4.8-9.0 H EOSINOPHIL % (test code = EO%) 0.1 % 0.3-3.7 L BASOPHIL % (test code = BA%) 0.2 % 0.0-2.0 N NUCLEATED RBC % (test code = NRBC%) 0.0 % 0-0 N NEUTROPHIL # (test code = NT#) 10.40 x10 3/uL 2.0-7.6 H IMMATURE GRANULOCYTE # (test code = IG#) 0.08 x10 3/uL 0.00-0.03 H LYMPHOCYTE # (test code = LY#) 1.51 x10 3/uL 1.0-3.8 N MONOCYTE # (test code = MO#) 1.22 x10 3/uL 0.1-0.8 H EOSINOPHIL # (test code = EO#) 0.01 x10 3/uL 0.0-0.2 N BASOPHIL # (test code = BA#) 0.03 x10 3/uL 0.0-0.2 N NUCLEATED RBC # (test code = NRBC#) 0.00 x10 3/uL 0.0-0.1 N MANUAL DIFF REQUIRED (test code = MDIFF) NO CBC W/AUTO [id number] 06:59:00* Test Item Value Reference Range Interpretation Comme nts WHITE BLOOD CELL (test code = WBC) 13.6 x10 3/uL 4.5-11.0 H RED BLOOD CELL (test code = RBC) 2.68 x10 6/uL 3.54-5.02 L HEMOGLOBIN (test code = HGB) 9.0 g/dL 11.0-15.0 L HEMATOCRIT (test code = HCT) 28.2 % 33.0-45.0 L MEAN CELL VOLUME (test code = MCV) 105.2 fL 81.0-99.0 H MEAN CELL HGB (test code = MCH) 33.6 pg 27.0-33.0 H MEAN CELL HGB CONCETRATION (test code = MCHC) 31.9 g/dL 33.0-37.0 L RED CELL DISTRIBUTION WIDTH CV (test code = RDW) 16.0 % 11.5-14.5 H RED CELL DISTRIBUTION WIDTH SD (test code = RDW-SD) 62.0 fL 37.0-54.0 H PLATELET COUNT (test code = PLT) 351 x10 3/uL 150-400 N MEAN PLATELET VOLUME (test code = MPV) 11.2 fL 7.0-9.0 H NEUTROPHIL % (test code = NT%) 81.7 % 56.0-77.0 H IMMATURE GRANULOCYTE % (test code = IG%) 0.6 % 0.0-2.0 N LYMPHOCYTE % (test code = LY%) 9.0 % 14.0-32.0 L MONOCYTE % (test code = MO%) 8.5 % 4.8-9.0 N EOSINOPHIL % (test code = EO%) 0.1 % 0.3-3.7 L BASOPHIL % (test code = BA%) 0.1 % 0.0-2.0 N NUCLEATED RBC % (test code = NRBC%) 0.0 % 0-0 N NEUTROPHIL # (test code = NT#) 11.07 x10 3/uL 2.0-7.6 H IMMATURE GRANULOCYTE # (test code = IG#) 0.08 x10 3/uL 0.00-0.03 H LYMPHOCYTE # (test code = LY#) 1.22 x10 3/uL 1.0-3.8 N MONOCYTE # (test code = MO#) 1.15 x10 3/uL 0.1-0.8 H EOSINOPHIL # (test code = EO#) 0.01 x10 3/uL 0.0-0.2 N BASOPHIL # (test code = BA#) 0.02 x10 3/uL 0.0-0.2 N NUCLEATED RBC # (test code = NRBC#) 0.00 x10 3/uL 0.0-0.1 N MANUAL DIFF REQUIRED (test code = MDIFF) NO UA RFLX MICR CULT IF [id number] 02:01:00* Test Item Value Reference Range Interpretation Comme nts UA COLOR (test code = COLU) YELLOW YEL/STRAW UA APPEARANCE (test code = APPU) CLOUDY CLEAR A UA GLUCOSE DIPSTICK (test co de = DGLUU) NEGATIVE NEGATIVE UA BILIRUBIN DIPSTICK (test code = BILU) NEGATIVE NEGATIVE UA KETONE DIPSTICK (test cod e = KETU) NEGATIVE NEGATIVE UA SPECIFIC GRAVITY (test co de = SGU) 1.010 1.005-1.030 N UA BLOOD DIPSTICK (test code = MARIA T) 4+ NEGATIVE A UA PH DIPSTICK (test code = ALEJANDRO) 6.0 5.0-7.0 N UA PROTEIN DIPSTICK (test co de = PROU) 3+ NEGATIVE A UA UROBILINIOGEN DIPSTICK (t est code = URO) 0.2 mg/dL 0.2-1.0 UA NITRITE DIPSTICK (test co de = KACEY) NEGATIVE NEGATIVE UA LEUKOCYTE ESTERASE DIPSTI CK (test code = LEUU) 3+ NEGATIVE A UA WBC (test code = WBCU) >50 WBC/HPF 0-3 A UA RBC (test code = RBCU) 21-50 RBC/HPF 0-3 UA WBC NO REFLEX (test code = WBCUCL) >50 WBC/HPF 0-3 A UA BACTERIA (test code = BACU) TRACE /HPF NONE SEEN UA SQUAMOUS CELLS (test code = SQU) 0-5 /HPF NONE SEEN Indication for culture: Temperature > 100.4 FSpecimen Description: MID STREAM- DUP VEIN [id number] 00:00:00 [facility] 1955 Sex: F Name: JOSEPH ROWLEY [facility] : 1955 Age/S: 68 / F [address] [place], [place] [address] Unit #: [id number] Loc: [place] [address] Phys: Trudy Colindres Acct: [id number] Dis Date: Status: ADM IN PHONE #: [phone] Exam Date: 07/13/2023 0656 FAX #: [phone] Reason: BLE EXAMS: CPT CODE:[id number] DUP VEIN SHEKHAR 08436 PROCEDURE INFORMATION: Exam: US Duplex Lower Extremity Veins; Vein mapping Exam date and time: 07/13/2023 4:52 AM Age: 68 years old Clinical indication: Screening exam; Pre op for cabg; Additional info: Ble TECHNIQUE: Imaging protocol: Real-time duplex ultrasound of theextremities with 2-D cormier scale, color Doppler flow and spectral waveform analysis including responses to compression and other maneuvers (when performed) with image documentation. Complete exam focused on the bilateral lower extremity veins for vein mapping. COMPARISON: No relevant prior studies available. FINDINGS: Right superficial veins: Normal compressibility. Greater saphenous vein is patent. Right greater saphenous vein-upper thigh: 4.2 mm Right greater saphenous vein-mid thigh: 3 mm Right greater saphenous vein-lower thigh: 2.7 mm Right greater saphenous vein- upper le.6 mm Right greater saphenous vein-mid le.6 mm Right greater saphenous vein-lower le.1 mm Left superficial veins: Normal compressibility. Greater saphenous vein is patent. Left greater saphenous vein-upper thigh: 3.3 mm Left greater saphenous vein-mid thigh: 3.6 mm Left greater saphenous vein- lower thigh: 3.3 mm Left greater saphenous vein-upper le mm Left greater saphenous vein-mid le.4 mm Left greater saphenous vein-lower le mm Soft tissues: Unremarkable. IMPRESSION: Greater saphenous vein is patent. Vein mapping as described. Electronically Signed by Wai Martell on at 0719 Reported and signed by: Leonardo Martell M.D. CC: Tanvir Prasad MD; Benito Nugent MD; Jaxson Grover MD; Trudy Colindres Technologist: Cici Valentine RDMS(AB)(OB) Trnscb Date/Time:07/13/2023 (718) [email or web address].[email or web address].[email or web address] Orig Print D/T: S: 07/13/2023 (718) Probe: PAGE 1 Signed Report- DUP EXTRACRANIAL SHEKHAR 2023-07-13 00:00:00 [facility] : 1955 Sex: F Name: JOSEPH ROWLEY [facility] : 1955 Age/S: 68 / F [address] [place] [address] Unit #: [id number] Loc: [place] [address] Phys: Trudy Colindres Physic Acct: [id number] Dis Date: Status: ADM IN PHONE #: [phone] Exam Date: 07/13/2023 0611 FAX #: [phone] Reason: R/O Carotid stenosisEXAMS: CPT CODE: [id number] DUP EXTRACRANIAL SHEKHAR 00489 PROCEDURE INFORMATION: Exam: US Duplex Bilateral Extracranial Arteries; Complete; Carotid Arteries Exam date and time: 07/13/2023 4:43 AM Age: 68 years old Clinical indication: Screening exam; Patient HX: Pre op for cabg; Additional info: R/O carotid stenosis TECHNIQUE: Imaging protocol: Real-time duplex ultrasound scan of the bilateral extracranial arteries combining cormier scale, color Doppler and spectral waveform analysis with image documentation. Complete exam. Exam focused on the carotid arteries. COMPARISON: No relevant prior studies available. TECHNIQUE: Cormier-scale, color Doppler and spectral Doppler of the carotid arteries was performed. Any reported ICA stenoses indirectly reference the distal internal carotid diameter as the denominator for the stenosis measurement, utilizing consensus panel criteria. FINDINGS: RIGHT: No significant plaque ICA PSV 65 cm/sec CCA PSV 47 cm/sec ICA/CCA ratio 1.4 Vertebral flow is antegrade . External carotid artery is patent. LEFT: No significant plaque ICA PSV 62 cm/sec CCA PSV 75 cm/sec ICA/CCA ratio 0.8 Vertebral flow is antegrade . External carotid artery is patent. IMPRESSION: 1. No ultrasound evidence for hemodynamically significant stenosis to either carotid artery. Consensus panel Doppler US criteria for diagnosis of ICA stenosis: Stenosis (%) ICA PSV (cm/sec) ICA/CCA ratio --- <50 <180 <2.050-69 180-230 2.0-4.0 >70 but less than >230 >4.0 near occlusion PAGE 1 Signed Report (CONTINUED) Name: JOSEPH ROWLEY [facility] : 1955 Age/S: 68 / F [address] [place] [address] Blvd Unit #: [id number] Loc: [place] [address] Phys: Trudy Colindres Acct: [id number] Dis Date: Status: ADM IN PHONE #: [phone] Exam Date: 07/13/2023 0656 FAX #: [phone] Reason: R/O Carotid stenosis EXAMS: CPT CODE: [id number] DUP EXTRACRANIAL SHEKHAR 12585 (Continued) Near occlusion High, low, or Variable undetectable at 0948 Reported and signed by: David Liao M.D. CC: Tanvir Prasad MD; Benito Nugent MD; Jaxson Grover MD; Trudy Colindres Technologist: Cici Valentine RDMS(AB)(OB) Trnwvb Date/Time: 07/13/2023 (947) IqraR.CS18 Orig Print D/T: S: 07/13/2023 (947) Probe: PAGE 2 Signed Report- CT CHEST W/O [id number] 00:00:00[facility] : 1955 Sex: F Name: JOSEPH ROWLEY [facility] : 1955 Age/S: 68 / F [address] [place] [address] Unit #: [id number] Loc: [place] [address] Phys: Trudy Colindres Physic Acct: [id number] Dis Date: Status: ADM IN PHONE #: [phone] Exam Date: 07/13/2023 1446 FAX #: [phone] Reason: CAD, PVD EXAMS: CPT CODE: [id number] CT CHEST W/O CONTRAST 99228 PROCEDURE INFORMATION: Exam: CT Chest Without Contrast; Diagnostic Exam date and time: 07/13/2023 2:31 PM Age: 68 years old Clinical indication: Other: Cad, pvd TECHNIQUE: Imaging protocol: Diagnostic computed tomography of the chest without contrast. Radiation optimization: All CT scans at this facility use at least one of these dose optimization technique s: automated exposure control; mA and/or kV adjustment per patient size (includes targeted exams where dose is matched to clinical indication); or iterative reconstruction. REPORTING DATA: Count of CT and Cardiac NM exams in prior 12 months: This patient has received 0 known CTs and 0 known cardiac nuclear medicine studies in the 12 months prior to the current study. COMPARISON: DX XR CHEST 2 V 07/11/2023 11:57 AM FINDINGS: Tubes, catheters and devices: Right dialysis catheter tip at the atrialcaval junction. Trachea: Central bronchi are patent. Lungs: Bilateral lower lobe atelectasis. Mucous plugging and inflammation posterior right upper lobe. Nonspecific 3 mm right upper lobe pulmonary nodule (series 4, image 20). Pleural spaces: No pneumothorax. Bilateral small pleural effusions. Heart: Heart size is enlarged. No pericardial effusion. Coronary arteries: Severe coronary artery calcif ication. Lymph nodes: No enlarged lymph nodes. Vasculature: Moderate atherosclerotic calcification of the aortic arch and descending thoracic aorta. Atherosclerotic calcification at the origins of the great vessels of the aortic arch. No thoracic aortic aneurysm. Severe abdominal vascular calcification. Bones/joints: Degenerative changes of the spine. Soft tissues: Unremarkable. IMPRESSION: 1. Right upper lobe inflammatory changes. 2. Nonspecific 3 mm right upper lobe pulmonary nodule for patients at low risk (minimal or absent history of smoking and of other known risk factors), no routine follow-up is indicated. For patients at high risk (history of smoking or of other known risk factors), consider optional CT Chest at 12 months. PAGE 1 Signed Report (CONTINUED) Name: JOSEPH ROWLEY [facility] : 1955 Age/S: 68 / F [address] [place] [address] Unit #: [id number] Loc: [place] [address] Phys: Trudy Colindres Physic Acct: [id number] Dis Date: Status: ADM IN PHONE #: [phone] Exam Date: 07/13/2023 1448 FAX #: [phone] Reason: CAD, PVD EXAMS: CPT CODE: [id number] CT CHEST W/O CONTRAST 92992 (Continued) (Reference: Tony) 3. Atherosclerotic disease. 4. Bilateral small pleural effusions. REFERENCES: Tony Angel et al. Guidelines for Management of Incidental Pulmonary Nodules Detected on CT Images: From the Fleischner Society 2017. Radiology. 2017;284(1):228-243. at 1740 Reported and signed by: Francesca Meyer M.D. CC: Tanvir Prasad MD; Benito Nugent MD; Jaxson Grover MD; Trudy Colindres Technologist:Christiano Coburn Jr, RT(R)(CT) CTDI: DLP: Trnscb Date/Time: 07/13/2023 (174) [id number].[id number] Orig Print D/T: S: 07/13/2023 (174) PAGE 2 Signed ReportACUTE HEPATITIS PANEL 2023-07-12 19:16:00* Test Item Value Reference Range Interpretation Comme nts AB HEPATITIS A IGM (test code = HAVMAB) NON REACTIVE INDEX NON REACT. AG HEPATITIS B SURFACE (test code = HBSAG) NON REACTIVE INDEX NonReactive AB HEPATITIS B CORE IGM (test code = HBCMAB) NON REACTIVE INDEX NON REACT. AB HEPATITIS C (test code = HCVAB) NON REACTIVE INDEX NON REACT. BASIC METABOLIC [id number] 18:40:00* Test Item Value Reference Range Interpretation Comme nts SODIUM (test code = NA) 133 mEq/L 134-147 L POTASSIUM (test code = K) 3.5 mEq/L 3.4-5.0 N CHLORIDE (test code = CL) 99 mEq/L 100-108 L CARBON DIOXIDE (test code = CO2) 25 mEq/l 21-33 N ANION GAP (test code = GAP) 13 0-20 N GLUCOSE (test code = GLU) 149 mg/dL 77-141 H NOTE: NEW NORMAL RANGE BLOOD UREA NITROGEN (test code = BUN) 52 mg/dL 7-25 H NOTE: NEW NORM AL RANGE GLOMERULAR FILTRATION RATE (test code = GFR) 14.3 80-90 L The Glomerular Filtration Rate is a calculated parameterbased on serum Creatinine, patient age and sex. GFR valuesless than 60 mL/min/1.73 square meters are indicative ofChronic Kidney Disease. Values less than 15 mL/min/1.73square meters indicate Kidney failure. The calculation forGFR is based on the CKD-EPI (2021) calculation. This formulais race indifferent and is the recommended formula for GFRby the National Kidney Foundation for Adults.The GFR will not calculate if the sex is unknown or if thepatient's age is <18 years. CREATININE (test code = CREAT) 3.4 mg/dL 0.6-1.3 H CALCIUM (test code = CA) 9.2 mg/dL 8.0-10.5 N [id number] 14:05:00* Test Item Value Reference Range Interpretation Comme [facility] ACT-ISTAT (test code = ACTI) 119 SEC 74-137 N Performed by cer tified cad operator at [facility] [id number] 12:39:00* Test Item Value Reference Range Interpretation Comme [facility] ACT-ISTAT (test code = ACTI) 161 SEC 74-137 H Performed by cer tified cad operator at [facility] GLUCOSE [id number] 08:46:00* Test Item Value Reference Range Interpretation Comme [facility] GLUCOSE BEDSIDE (test code = GLUBED) 164 MG/DL 70-110 H Performed by cer tified cad operator at [facility] CBC W/AUTO [id number] 14:10:00* Test Item Value Reference Range Interpretation Comme [facility] WHITE BLOOD CELL (test code = WBC) 16.4 x10 3/uL 4.5-11.0 H RED BLOOD CELL (test code = RBC) 2.82 x10 6/uL 3.54-5.02 L HEMOGLOBIN (test code = HGB) 9.6 g/dL 11.0-15.0 L HEMATOCRIT (test code = HCT) 30.6 % 33.0-45.0 L MEAN CELL VOLUME (test code = MCV) 108.5 fL 81.0-99.0 H MEAN CELL HGB (test code = MCH) 34.0 pg 27.0-33.0 H MEAN CELL HGB CONCETRATION (test code = MCHC) 31.4 g/dL 33.0-37.0 L RED CELL DISTRIBUTION WIDTH CV (test code = RDW) 15.9 % 11.5-14.5 H RED CELL DISTRIBUTION WIDTH SD (test code = RDW-SD) 62.9 fL 37.0-54.0 H PLATELET COUNT (test code = PLT) 364 x10 3/uL 150-400 N MEAN PLATELET VOLUME (test code = MPV) 11.0 fL 7.0-9.0 H NEUTROPHIL % (test code = NT%) 84.7 % 56.0-77.0 H IMMATURE GRANULOCYTE % (test code = IG%) 0.7 % 0.0-2.0 N LYMPHOCYTE % (test code = LY%) 7.1 % 14.0-32.0 L MONOCYTE % (test code = MO%) 7.1 % 4.8-9.0 N EOSINOPHIL % (test code = EO%) 0.2 % 0.3-3.7 L BASOPHIL % (test code = BA%) 0.2 % 0.0-2.0 N NUCLEATED RBC % (test code = NRBC%) 0.0 % 0-0 N NEUTROPHIL # (test code = NT#) 13.89 x10 3/uL 2.0-7.6 H IMMATURE GRANULOCYTE # (test code = IG#) 0.12 x10 3/uL 0.00-0.03 H LYMPHOCYTE # (test code = LY#) 1.16 x10 3/uL 1.0-3.8 N MONOCYTE # (test code = MO#) 1.17 x10 3/uL 0.1-0.8 H EOSINOPHIL # (test code = EO#) 0.04 x10 3/uL 0.0-0.2 N BASOPHIL # (test code = BA#) 0.03 x10 3/uL 0.0-0.2 N NUCLEATED RBC # (test code = NRBC#) 0.00 x10 3/uL 0.0-0.1 N MANUAL DIFF REQUIRED (test code = MDIFF) NO RBC WNQZLUOPKZ0304-80-64 14:10:00* Test Item Value Reference Range Interpretation Comme nts ANISOCYTOSIS (test code = ANISO) 2+ MACROCYTOSIS (test code = MACR) 2+ BASIC METABOLIC [id number] 12:07:00* Test Item Value Reference Range Interpretation Comme nts SODIUM (test code = NA) 130 mEq/L 134-147 L POTASSIUM (test code = K) 4.1 mEq/L 3.4-5.0 N CHLORIDE (test code = CL) 95 mEq/L 100-108 L CARBON DIOXIDE (test code = CO2) 25 mEq/l 21-33 N ANION GAP (test code = GAP) 14 0-20 N GLUCOSE (test code = GLU) 221 mg/dL 77-141 H NOTE: NEW NORMAL RANGE BLOOD UREA NITROGEN (test code = BUN) 47 mg/dL 7-25 H NOTE: NEW NORM AL RANGE GLOMERULAR FILTRATION RATE (test code = GFR) 11.8 80-90 L The Glomerular Filtration Rate is a calculated parameterbased on serum Creatinine, patient age and sex. GFR valuesless than 60 mL/min/1.73 square meters are indicative ofChronic Kidney Disease. Values less than 15 mL/min/1.73square meters indicate Kidney failure. The calculation forGFR is based on the CKD-EPI (2020) calculation. This formulais race indifferent and is the recommended formula for GFRby the National Kidney Foundation for Adults.The GFR will not calculate if the sex is unknown or if thepatient's age is <18 years. CREATININE (test code = CREAT) 4.0 mg/dL 0.6-1.3 H CALCIUM (test code = CA) 9.6 mg/dL 8.0-10.5 N PROTHROMBIN [id number] 11:59:00* Test Item Value Reference Range Interpretation Comme nts PROTHROMBIN TIME PATIENT (test code = PTP) 12.5 SECONDS 9.3-12.9 N INTERNATIONAL NORMAL RATIO (test code = INR) 1.1 0.8-1.2 N TARGET INR BY INDICATION Indication INR1. Prophylaxis of venous thrombosis 2.0 - 3.0 (orthopedic surgery), Prophylaxis of venous thrombosis (other than high-risk surgery), Treatment of Deep Vein Thrombosis/Pulmonary Embolism, Prevention of systemic embolism - Tissue heart valves, Acute Myocardial Infarction (to prevent systemic embolism), Valvular heart disease, Atrial Fibrillation, Bileaflet mechanical valve in aortic position.2. Mechanical prosthetic valves (high risk), 2.5 - 3.5 Presence of Lupus Anticoagulant or Antiphospholipid Antibodies, Prevention of systemic embolism - Acute Myocardial Infarction (to prevent recurrent infarct). - XR CHEST 2 [id number] 00:00:00 [facility] [place] : 1955 Sex: F FAX: Benito Jeronimo MD [phone] Ranger: St: PRE FAX: Jaxson Woody MD [phone] Name: JOSEPH ROWLEY [facility] : 1955 Age/S: 68/F [address] [place] [address] Unit #: [id number] Loc: [place] [address] Phys: Jaxson Grover MD Acct: [id number] Dis Date: Status: PRE [facility] PHONE #: [phone] Exam Date: 07/11/2023 1223 FAX #: [phone] Reason: PREOP EXAMS: CPT CODE: [id number] XR CHEST 2 V 11419 PROCEDURE INFORMATION: Exam: XR Chest Exam date and time: 07/11/2023 11:57 AM Age: 68 years old Clinical indication: Screening exam; Pre-operative exam; Cardiovascular screening; Additional info: Preop TECHNIQUE: Imaging protocol: Radiologic exam of the chest. Views: 2 views. PA and Lateral COMPARISON: No relevant prior studies available. FINDINGS: Lungs: There are normal lung volumes without consolidation or interstitial opacities. A right IJ dialysis catheter is present with tip in the region of the distal SVC. Pleural spaces: There is a very small left pleural effusion. No pneumothorax. Heart/Mediastinum: The heart size is normal. The pulmonary vasculature is normal. The mediastinal contour is normal. The trachea is midline. Bones/joints: No acute abnormality seen. IMPRESSION: Findings consistent with a very small left pleural effusion. at 1243 Reported and signed by: Christopher Vines M.D. CC: Benito Nugent MD; Jaxson Grover MD Technologist: RT Hugo(R) Trnscrd Date/Time/By: 07/11/2023 (975) : By: Jeet Orig Print D/T: S: 07/11/2023 (7081) PAGE 1 Signed ReportPOCT HEMOGLOBIN A1C [id number] 17:03:00* Test Item Value Reference Range Interpretation Comme [facility] POCT HBA1C (test code = 4548-4) 6.3 % 4-6 A Lab Interpretation (test cod e = 53717-0) Abnormal [facility] HEMOGLOBIN A1C [id number] 17:03:00* Test Item Value Reference Range Interpretation Comme [facility] POCT HBA1C (test code = 4548-4) 6.3 % 4-6 A Lab Interpretation (test cod e = 48420-9) Abnormal [facility] HEMOGLOBIN A1C [id number] 19:22:00* Test Item Value Reference Range Interpretation Comme [facility] POCT HBA1C (test code = 4548-4) 7.4 % 4-6 A Lab Interpretation (test cod e = 74911-6) Abnormal [facility] HEMOGLOBIN A1C [id number] 19:22:00* Test Item Value Reference Range Interpretation Comme [facility] POCT HBA1C (test code = 4548-4) 7.4 % 4-6 A Lab Interpretation (test cod e = 55651-9) Abnormal [facility] Notes Date/Time Note Provider Source 2024-03-22 15:41:00 [id number]4A jBe/PI NcKp6pWHr4ovf94qlR0O8paTx8qyDE4270-01-39Z86:41 :00 [facility] ([facility])Operative Note - FullREPORT#:[id number] REPORT STATUS: SignedREPORT INITIALIZATION DATE:03/22/24 TIME: 154 PATIENT: JOSEPH ROWLEY UNIT #: [id number]#: [id number] ROOM/BED:: 57 AGE: 69 SEX: F ATTEND: Luis Carlos Huggins MDADM AUTHOR: Luis Carlos Huggins MDREPT SERVICE DT/TIME: 03/22/24 1541* ALL edits or amendments must be made on the electronic/computer document * Operative ReportORM Surgeries: Surgery Date and Time: 03/22/2024 1100 Primary Procedure: LUE CREATION AV GRAFT CEPHALIC Start date: 03/22/24Start time: 1330Pre-procedure diagnosis:End-stage renal diseasePost-procedure diagnosis:SameProcedures performed:End-stage renal diseaseTechnique/Procedure:The patient was brought into the operative room and prepped and draped in the usual sterile manner. Ultrasound evaluation was completed of the left upper extremity. This demonstrated an outflow brachial vein that was adequate for distal anastomosis. Incision was made overlying the brachial artery and brachial vein just before the axilla and carried down with sharp section electrocautery. The brachial artery was controlled proximal and distal to the previous anastomosis to her occluded basilic vein transposition. The incision before the axilla was carried down with sharp dissection and electrocautery and the brachial vein was isolated and controlled proximally distally with bulldogs. A 4 mm to 7 mm propatent tapered graft was then tunneled between the 2 incisions through the lateral subdermal space. The 4 mm portion was beveled andanastomosed to the arteriotomy made to the previous anastomosis along for a venous cath. Patient was heparinized with 3000 units of heparin. 6-0 Prolene stitch was then used to anastomose the graft to the artery and vein cuff in running fashion. Good flows noted on completion. Gelfoam and thrombin was usedadjunctively for hemostasis as needed. The outflow graft was then anastomosed to the venotomy in the outflow brachial vein after was beveled with a running 6-0 Prolene stitch. This was flushed before completion. Hemostasis was obtained. Gelfoam thrombin was used adjunctively for hemostasis. Wounds were then copiously irrigated. Surgicel was placed in the antecubital wound. Subcutaneous patient then closed with 3-0 Vicryl stitch in running fashion for both incisions. The skin was closed with 4-0 Monocryl stitch in a subcuticular fashion. The patient taught the procedure well. There are no complications. The patient was stable and discharged to the PACU.Primary Surgeon: Dr. Luis Carlos HugginsAssistant(s): noneAnesthesia: combined spinal/epiOperative findings:Good flow through the graft on completionComplications: noneEstimated blood loss in ml's: 100 ccSpecimens removed/altered: noneImplant(s): propaten at 1548 RPT #:[id number] OF REPORTOPOperative icboul5546-89-63D46:41:00G.[id number] Available for patient vrlfSEDCXAADLQPIMK6369-41-71L16:48:17 [facility] 2024-03-22 15:39:00 [id number]/pTspf/FbYM/im56AcrQ5/Focwb zmXxJt rfriJxzWcH1zCklWuNqRjd53FUHN2B3484-39-11L10:39 :00 [facility]rief Op NoteREPORT#:[id number] REPORT STATUS: SignedREPORT INITIALIZATION DATE:03/22/24 TIME: 1538 PATIENT: JOSEPH ROWLEY UNIT #: [id number]#: [id number] ROOM/BED:: 57 AGE: 69 SEX: F ATTEND: Luis Carlos Huggins MDADM AUTHOR: Luis Carlos Huggins MDREPT SERVICE DT/TIME: 03/22/241538* ALL edits or amendments must be made on the electronic/computer document * Op/Inv Proc Note - BriefORM Surgeries: Surgery Date and Time: 03/22/2024 1100 Primary Procedure: LUE CREATION AV GRAFT CEPHALIC Pre-procedure diagnosis:End-stage renal diseasePost-procedure diagnosis: same as pre procedure dxProcedures performed:Creation of left upper arm arteriovenous graft with ptfe, propaten creation, brachial brachial 50339Jmkreuq Surgeon:Dr. Luis Carlos HugginsAssistant(s): noneAnesthesia: general anesthesiaFindings:Good flow through the graft on completionComplications: noneEstimated blood loss in ml's: 100 ccSpecimens removed/altered: none at 1548 RPT #:[id number] OF REPORTOPOperative mtzkqt9028-67-88Q54:39:00G.[id number] Available for patient dnrfMACFRTHEXAZIJB7275-59-60P25:48:27 [facility] 2024-03-22 12:16:00 [id number] CkQpVy qCjRIq6fpwBJS1FnBbqYbyPNytGcIk7374-74-33A82:16 :00 [facility] ([facility])Brief Discharge Note w/Med RecREPORT#:[id number] REPORT STATUS: SignedREPORT INITIALIZATION DATE:03/22/24 TIME: 1216 PATIENT: JOSEPH ROWLEY UNIT #: [id number]#: [id number] ROOM/BED:: 57 AGE: 69 SEX: F ATTEND: Luis Carlos Huggins MDADM AUTHOR: Luis Carlos Huggins MDREPT SERVICE DT/TIME: 03/22/24 1216* ALL edits or amendments must be made on the electronic/computer document * Med Rec Med RecDischarge meds:Continue taking these medications:TRAVOPROST (TRAVOPROST 0.004% OPHTH) 0.004 % OPHTH.SOLN 1 DROPS LEFT EYE BEDTIME. DORZOLAMIDE/TIMOLOL (COSOPT 2%-0.5% OPHTH) 22.3 MG-6.8 MG/ML OPHTH.SOLN 1 DROPS EACH EYE EVERY 12 HOURS. CLOPIDOGREL (PLAVIX) 75 MG TAB 75 MILLIGRAM ORAL DAILY. MIDODRINE (PROAMATINE) 5 MG TAB 5 MILLIGRAM ORAL THREE TIMES A DAY. [FIASP INSULIN PUMP] (Unknown Strength) Unknown Dose SUBCUTANEOUS NETARSUDIL (RHOPRESSA 0.02% OPHTH) 0.02 % DROPS 1 DROPS EACH EYE EVERY EVENING. [AZOLAMIDE] 250 MILLIGRAM ORAL M,W,F Instructions: PT SAYS SHE TAKES AFTER DIALYSIS FOR GLAUCOMA. ATORVASTATIN (LIPITOR) 40 MG TAB 40 MILLIGRAM ORAL BEDTIME. FAMOTIDINE (PEPCID) 40 MG TAB 40 MILLIGRAM ORAL BEDTIME. ASPIRIN EC (ECOTRIN) 81 MG TAB.EC 81 MILLIGRAM ORAL DAILY. CALCIUM CARBONATE (TUMS) 200 MG CALCIUM (500 MG) TAB.CHEW 1,000 MILLIGRAM ORAL BEFORE MEALS. BUMETANIDE (BUMEX) 2 MG TAB 2 MILLIGRAM ORAL TWICE DAILY. METOPROLOL SUCC XL (TOPROL XL) 25 MG TAB.SR.24H 25 MILLIGRAM ORAL DAILY. Objective ResultsFindings/Data:Laboratory Tests: 03/22 03/22 1030 1018 Chemistry Sodium (134 - 147 mEq/L) 134 Potassium (3.4 - 5.0 mEq/L) 4.6 Chloride (100 - 108 mEq/L) 99 L Carbon Dioxide (21 - 33 mEq/l) 26 Anion Gap (0 - 20) 14 BUN (7 - 25 mg/dL) 25 Creatinine (0.6 - 1.3 mg/dL) 3.9 H Glomerular Filtr Rate (80 - 90) 12.1 L Glucose (77 - 141 mg/dL) 221 H POC Glucose (70 - 110 MG/DL) 204 H Calcium (8.0 - 10.5 mg/dL) 10.4 Hematology WBC (4.5 - 11.0 x10 3/uL) 7.7 RBC (3.54 - 5.02 x10 6/uL) 3.74 Hgb (11.0 - 15.0 g/dL) 13.0 Hct (33.0 - 45.0 %) 42.5 MCV (81.0 - 99.0 fL) 113.6 H MCH (27.0 - 33.0 pg) 34.8 H MCHC (33.0 - 37.0 g/dL) 30.6 L RDW (11.5 - 14.5 %) 15.8 H Plt Count (150 - 400 x10 3/uL) 333 MPV (7.0 - 9.0 fL) 10.6 H Neut % (Auto) (56.0 - 77.0 %) 68.7 Lymph % (Auto) (14.0 - 32.0 %) 18.1 [place] % (Auto) (4.8 - 9.0 %) 11.1 H Eos % (Auto) (0.3 - 3.7 %) 1.3 Baso % (Auto) (0.0 - 2.0 %) 0.5 Neut # (Auto) (2.0 - 7.6 x10 3/uL) 5.30 Lymph # (Auto) (1.0 - 3.8 x10 3/uL) 1.40 [place] # (Auto) (0.1 - 0.8 x10 3/uL) 0.86 H Eos # (Auto) (0.0 - 0.2 x10 3/uL) 0.10 Baso # (Auto) (0.0 - 0.2 x10 3/uL) 0.04 Abs Immat Gran (auto) (0.00 - 0.03 x10 3/uL) 0.02 Immature Gran % (0.0 - 2.0 %) 0.3 Nucleated RBC % (0 - 0 %) 0.0 Nucleated RBCs # (Man) (0.0 - 0.1 x10 3/uL) 0.00 Brief Discharge Note w/Med RecProblem List/A P: 1. ESRD (end stage renal disease) on dialysis Discharge to: Home/Self CareDischarge diagnosis:end stage renal diseasePt. condition on discharge: stableAdditional Discharge Routines: Attending Follow-Up, Wound/Dressing CareDiet: Resume Home Diet/FeedsActivity: No Strenuous ActivityWound/dressing care: Clean wound daily, Do not submerge incision, Keep wound clean and dry, OK to shower tomorrow Follow-up AppointmentsAttending Physician: Attending Physician: Luis Carlos Huggins MD Attending physician follow up timeframe: In 1-2 weeks at 1217 RPT #:[id number] OF REPORTDSDischarge ihyxouc9386-38-80L11:16:00G.TFLW90242180-2052M VAvailable for patient lbcySACHADPSBKJNZP8515-10-23O88:18:11 [facility] 2024-01-26 07:54:00 [id number]mOBO IVVs0C Yzvy8Q3+JubycOUfsk0bLRmPqYtFZQ1384-09-90Q05:54 :00 [facility] ([facility])Operative Note - FullREPORT#:[id number] REPORT STATUS: SignedREPORT INITIALIZATION DATE:01/26/24 TIME: 753 PATIENT: JOSEPH ROWLEY UNIT #: [id number]#: [id number] ROOM/BED:: 57 AGE: 69 SEX: F ATTEND: Luis Carlos Huggins MDADM AUTHOR: Luis Carlos Huggins MDREPT SERVICE DT/TIME: 01/26/24 0754* ALL edits or amendments must be made on the electronic/computer document * Operative ReportORM Surgeries: Surgery Date and Time: 01/26/2024 0730 Primary Procedure: CREATION AV FISTULA LEFT ARM Start date: 01/26/24Start time: 0815Pre-procedure diagnosis:End stage renal diseasePost-procedure diagnosis:sameProcedures performed:1. Creation of left upper arm upper extremity brachiocephalic [place] [address] transposition2. Left upper extremity unilateral venous ultrasound 02469Xztgtiico/Procedure:The patient was brought into the op room and prepped and draped in usual sterilemanner. Left lower extremity lateral ultrasound was completed. Skip incisions were made overlying the upper arm cephalic vein after was marked on the skin and this was carried down with sharp dissection and electrocautery as needed and the vein was dissected throughout its course in the upper arm and all branches were ligated and transected. The distal extent of the vein was then ligated and transected and was mobilized from the its vascular bed. The vein was flushed and marked on the anterior surface. Medial incision was then made overlying the brachial artery and carried out withsharp section electrocautery and and this was dissected free circumferentially and all intervening branches were ligated. The vein was then tunneled through asuperficial tunnel to the artery and transposed. The patient was heparinized with 3000 units of heparin. The vessels were pulled up on the artery and the vein was spatulated and arteriotomy was made and end-to-side anastomosis was completed with a running 6-0 Prolene stitch and flushed before completion. Goodthrill was noted on the fistula on completion. Gelfoam and thrombin were used adjunctively as needed for hemostasis. All wounds were copiously irrigated. The subcutaneous layer was closed with running 3-0 Vicryl stitch. The skin was closed with 4-0 Monocryl stitch in a subcuticular fashion. The patient tolerated procedure well. There are no complications. The patient was stable and discharged to the PACU.Primary Surgeon: Dr. Luis Carlos HugginsAssistant(s): noneAnesthesia: general anesthesiaOperative findings:Left upper extremity unilateral venous ultrasoundVessel diameterForearmCephalic vein 2.8 mm, proximal sclerotic -likely occluded with antecubital vein outflowBasilic vein 1.4 mmRadial artery 1.0 mm, not palpable Upper armCephalic vein 3.2 mmBasilic vein 4.6 mmBrachial artery 4.0 mmAll veins are compressible except as noted above.Complications: noneEstimated blood loss in ml's: 35 ccSpecimens removed/altered: noneImplant(s): none at 1105 [facility] #:[id number] OF REPORTOPOperative miohhs6228-92-03H85:54:00G.LFIJ27216733-6039VZ Available for patient bstqFZZZUMPOVSQYYI0843-12-82G32:05:55 [facility] 2024-01-26 07:52:00 [id number]+ApvdjrU166//jH9 VAegs9 x/ULKA3mhZu7cqfq/615DpZRCJYUhL3385-37-55V00:52 :00 [facility] ([facility])Brief Op NoteREPORT#:[id number] REPORT STATUS: SignedREPORT INITIALIZATION DATE:01/26/24 TIME: 751 PATIENT: JOSEPH ROWLEY UNIT #: [id number]#: [id number] ROOM/BED:: 57 AGE: 69 SEX: F ATTEND: Luis Carlos Huggins MDADM AUTHOR: Luis Carlos Hgugins MDREPT SERVICE DT/TIME: 01/26/24751* ALL edits or amendments must be made on the electronic/computer document * Op/Inv Proc Note - BriefORM Surgeries: Surgery Date and Time: 01/26/2024729 Primary Procedure: CREATION AV FISTULA LEFT ARM Pre-procedure diagnosis:End stage renal diseasePost-procedure diagnosis: same as pre procedure dxProcedures performed:1. Creation of left upper arm upper extremity brachiocephalic arteriovenous fistula with 17626 transposition2. Left upper extremity unilateral venous ultrasound 14749Vyklcux Surgeon:Dr. Luis Carlos HugginsAssistant(s): noneAnesthesia: general anesthesiaFindings:Left upper extremity unilateral venous ultrasoundVessel diameterForearmCephalic vein 2.8 mm, proximal sclerotic -likely occluded with antecubital vein outflowBasilic vein 1.4 mmRadial artery 1.0 mm, not palpable Upper armCephalic vein 3.2 mmBasilic vein 4.6 mmBrachial artery 4.0 mmAll veins are compressible except as noted above.Complications: noneEstimated blood loss in ml's: 35 ccSpecimens removed/altered: none at 1105 RPT #:[id number] OF REPORTOPOperative qnficr3985-50-39C55:52:00G.[id number] Available for patient xswsIICIKXDFEADQXG7543-13-91Z75:06:05 [facility] 2024-01-26 07:50:00 [id number]ntUs ZzLfPl 4QDDU1S5Echum66XAOqK3kwO7NSTGh8097-37-22X93:50 :00 [facility] ([facility])Brief Discharge Note w/Med RecREPORT#:[id number] REPORT STATUS: SignedREPORT INITIALIZATION DATE:01/26/24 TIME: 075 PATIENT: JOSEPH ROWLEY UNIT #: [id number]#: [id number] ROOM/BED:: 57 AGE: 69 SEX: F ATTEND: Luis Carlos Huggins MDADM AUTHOR: Luis Carlos Huggins MDREPT SERVICE DT/TIME: 01/26/24749* ALL edits or amendments must be made on the electronic/computer document * Med Rec Med RecDischarge meds:Continue taking these medications:TRAVOPROST (TRAVATAN-Z 0.004% OPHTH) 0.004 % OPHTH.SOLN 1 DROPS LEFT EYE BEDTIME. DORZOLAMIDE/TIMOLOL (COSOPT 2%-0.5% OPHTH) 22.3 MG-6.8 MG/ML OPHTH.SOLN 1 DROPS EACH EYE EVERY 12 HOURS. CLOPIDOGREL (PLAVIX) 75 MG TAB 75 MILLIGRAM ORAL DAILY. MIDODRINE (PROAMATINE) 5 MG TAB 5 MILLIGRAM ORAL THREE TIMES A DAY. [FIASP INSULIN PUMP] (Unknown Strength) Unknown Dose SUBCUTANEOUS NETARSUDIL (RHOPRESSA 0.02% OPHTH) 0.02 % DROPS 1 DROPS EACH EYE EVERY EVENING. [AZOLAMIDE] 40 MILLIGRAM ORAL M,W,F Instructions: PT SAYS SHE TAKES AFTER DIALYSIS FOR GLAUCOMA. ATORVASTATIN (LIPITOR) 40 MG TAB 40 MILLIGRAM ORAL BEDTIME. FAMOTIDINE (PEPCID) 40 MG TAB 40 MILLIGRAM ORAL BEDTIME. ASPIRIN EC (ECOTRIN) 81 MG TAB.EC 81 MILLIGRAM ORAL DAILY. CALCIUM CARBONATE (TUMS) 200 MG CALCIUM (500 MG) TAB.CHEW 1,000 MILLIGRAM ORAL BEFORE MEALS. BUMETANIDE (BUMEX) 2 MG TAB 2 MILLIGRAM ORAL DAILY. METOPROLOL SUCC XL (TOPROL XL) 25 MG TAB.SR.24H 25 MILLIGRAM ORAL DAILY. Start taking the following new medications:ACETAMINOPHEN/CODEINE (TYLENOL WITH CODEINE #3 300/30 MG) 300 MG-30 MG TAB 1 TABLET ORAL EVERY 4 HOURS NEEDED. as needed for ACUTE PAIN Qty = 30 No Refills Objective ResultsFindings/Data:Laboratory Tests: 01/25 01/25 01/25 0628 0627 0625 Chemistry Sodium (134 - 147 mEq/L) 134 Potassium (3.4 - 5.0 mEq/L) 4.4 Chloride (100 - 108 mEq/L) 101 Carbon Dioxide (21 - 33 mEq/l) 23 Anion Gap (0 - 20) 14 BUN (7 - 25 mg/dL) 21 Creatinine (0.6 - 1.3 mg/dL) 3.5 H Glomerular Filtr Rate (80 - 90) 13.7 L Glucose (77 - 141 mg/dL) 253 H POC Glucose (70 - 110 MG/DL) 251 H Calcium (8.0 - 10.5 mg/dL) 9.6 Hematology WBC (4.5 - 11.0 x10 3/uL) 10.0 RBC (3.54 - 5.02 x10 6/uL) 3.15 L Hgb (11.0 - 15.0 g/dL) 10.9 L Hct (33.0 - 45.0 %) 35.5 MCV (81.0 - 99.0 fL) 112.7 H MCH (27.0 - 33.0 pg) 34.6 H MCHC (33.0 - 37.0 g/dL) 30.7 L RDW (11.5 - 14.5 %) 13.0 Plt Count (150 - 400 x10 3/uL) 350 MPV (7.0 - 9.0 fL) 10.3 H Neut % (Auto) (56.0 - 77.0 %) 71.9 Lymph % (Auto) (14.0 - 32.0 %) 16.0 [place] % (Auto) (4.8 - 9.0 %) 9.9 H Eos % (Auto) (0.3 - 3.7 %) 1.5 Baso % (Auto) (0.0 - 2.0 %) 0.4 Neut # (Auto) (2.0 - 7.6 x10 3/uL) 7.17 Lymph # (Auto) (1.0 - 3.8 x10 3/uL) 1.60 [place] # (Auto) (0.1 - 0.8 x10 3/uL) 0.99 H Eos # (Auto) (0.0 - 0.2 x10 3/uL) 0.15 Baso # (Auto) (0.0 - 0.2 x10 3/uL) 0.04 Abs Immat Gran (auto) (0.00 - 0.03 x10 3/uL) 0.03 Immature Gran % (0.0 - 2.0 %) 0.3 Nucleated RBC % (0 - 0 %) 0.0 Nucleated RBCs # (Man) (0.0 - 0.1 x10 3/uL) 0.00 Brief Discharge Note w/Med RecProblem List/A P: 1. ESRD (end stage renal disease) on dialysis Discharge to: Home/Self CareDischarge diagnosis:End stage renal diseasePt. condition on discharge: stableAdditional Discharge Routines: Attending Follow-Up, Wound/Dressing CareDiet: Resume Home Diet/FeedsActivity: No St Act, squeeze left hand regularly to promote maturationWound/dressing care: Clean wound daily, Do not submerge incision, Keep wound clean and dry, OK to shower tomorrow Follow-up AppointmentsAttending Physician: Attending Physician: Luis Carlos Huggins MD Attending physician follow up timeframe: In 1-[facility] weeks at [facility] #:[id number] OF REPORTDSDischarge qaeuula0087-16-45X52:50:00G.GJJX21040255-7870I VAvailable for patient zbhwAEFQPSQBVHHAVQ0827-45-92H61:51:22 [facility] 2024-01-24 12:43:00 [id number]/0c9xi6jpp9UQMAQp8wL14nyhZW 9GEOLR ngNx+6EGjQ53VVkP+oirK/omJE1bh71747-56-30H82:43 :[address] [address] PATIENT NAME: JOSEPH ROWLEY ADMIT DATE: ACCOUNT NO: [id number] ROOM NO: AGE: 69 REPORT TYPE: eELECTROCARDIOGRAM REPORT SEX: F ADMITTING PHYSICIAN: ATTENDING PHYSICIAN:Luis Carlos Huggins MD Order:[id number] Reason : PREOP Test Date/Time Stamp:TueJan 24 2024 12:43:21Blood Pressure : / mmHGVent. Rate : 082 BPM Atrial Rate : 082 BPM P-R Int : 132 ms QRS Dur : 074 ms QT Int : 382 ms P-R-T Axes : 057 -20 074 degrees QTc Int : 446 ms Normal sinus rhythmLeft axis deviationBorderline ECGPRE_OPConfirmed by NADEGE CHAPIN MD ([id number]) on 01/24/2024 1:05:27 PM Referred By: Luis Carlos Huggins Confirmed by:NADEGE CHAPIN MD at 1305 PATIENT NAME: JOSEPH ROWLEY .[id number] for patient yggwBFYPWBFUKAEEMD5505-60-63U29:05:48 [facility] 2023-11-16 08:59:11 rxPNVH6ksSnxKmlCzWzlB5e7Fdfkw2BLTN7LraKS Yeq7E1 dFL4rf4a8cBBg0nnVd5674-13-51O90:59:11Formattin g of this note might be different from the original.Please review and advise on change of medication. 07715-5Rauvwqopg encounter ScxtRI3974-04-09Y56:59:39Telephone encounter NoteTXT1.2.840.532962.1.13.104.2.7.2.050649|19 [id number] for patient myjq88798-6LpcsZFKLPSLNLHYCsnwoujja C-CDA narrative [id number] [place] [address]Gi[id number] JLQHXMJJLUCU9306-82-39B15:59:391.2.840.223730. 1.72.3.15|1.2.840.439318.1.13.104.2.7.2.740176 _[id number] Bertha Delacruz RN [facility] 2023-11-07 15:36:58 NE6dBaYOWEKnZi1Eu/Euks0zcDXbYtfiLBfz8TPD 3kn2qC EVMgsipRpnD5gW2qAH3756-33-98Y88:36:58Formattin g of this note might be different from the original.Request for Pods was sent to Catherine (SCOTT) please see next encounter. Kavitha Mullen MA 11/07/2023 3:37 PM 88144-6Tkbcdtihh encounter QwqkBV4891-24-56G10:37:28Telephone encounter NoteTXT1.2.840.558601.1.13.104.2.7.2.640458|19 [id number] for patient wxrp00000-9FqjdKXBNXXXKQPNNixsgzgwk C-CDA narrative [id number] Sanchez MA[address]HrtpMfnsusedbElwrqmlryOTGS8827368463QIDHECHJYW IGHRNKUJKEQG5029-97-15Z52:37:281.2.840.500823. 1.72.3.15|1.2.840.387784.1.13.104.2.7.2.508391 _[id number] Kavitha Mullen MA [facility] 2023-10-25 18:53:04 /7y1w9UrfjrgX5qtuYsFhU+wzCF2/4ikYyCyJCXn OAq9JW 12kJWo7xsU5u6VuK6J6902-12-42K10:53:04Formattin g of this note might be different from the original.Refill for freestyle lite strip was sentPlease follow up with patient for update information regarding her PODs for insulin pumpHAY Falkision of Endocrinology and Metabolism 09864-2Oyttgtprx encounter LqbiVS3071-12-05W10:54:38Telephone encounter NoteTXT1.2.840.430520.1.13.104.2.7.2.947051|19 [id number] for patient saoj53609-5YcvgLLQTZPNUBDLKegzhxbwd C-CDA narrative textUT[address] FgqlZtjsblgfsBzsznaljcJYRU7398219307NXFQSZSKHW BCMECZADKQUB1703-42-04L93:54:381.2.840.862319. 1.72.3.15|1.2.840.043916.1.13.104.2.7.2.710705 _[id number] [facility] 2023-10-25 11:55:55 XreIPECwFSz0mF0rI/SZkSWOEwlxALWCsmcLfhuX ZrXI2b 6kPCJ2jLG98Dc6YBT06990-69-76F79:55:55Formattin g of this note might be different from the original.IRVING-09/13/23NOV-02/21/24- continue CGM and current pump settings- POCT HEMOGLOBIN A1C TEST- insulin pump cart,cont inf,RF (OMNIPOD CLASSIC PODS, GEN 3,) Crtg; inject 1 Kit under the skin every 72 (seventy-two) hours. Dispense: 30 Each; Refill: 1Pt requesting as back up to CGM. I am unable to fill due to DX being deleted. [place] [address]-7Upipcltph encounter DzgzHR3594-29-96O19:05:49Telephone encounter NoteTXT1.2.840.154319.1.13.104.2.7.2.435192|19 [id number] for patient vosz86659-3GtkbEFNCUTPLLULKvysfhmpv C-CDA narrative [id number] Cano RN[address] VehaGnvszeykwGmqvnkbraSKER4450942638VPCKPHHDQW BZRERPBAFZWK2094-70-81T01:05:491.2.840.932915. 1.72.3.15|1.2.840.739442.1.13.104.2.7.2.055596 _[id number] Viridiana Hernandez RN [facility] 2023-09-15 10:41:00 [id number]/HSCNcNDL4Nus7PiOFF 53IMd4 TTuulZVwFGifXCTBhTIz/bDrl2AzJq4576-86-83W09:41 :00 [facility] ([facility])Operative Note - FullREPORT#:[id number] REPORT STATUS: SignedREPORT INITIALIZATION DATE:09/15/23 TIME: 104 PATIENT: JOSEPH ROWLEY UNIT #: [id number]#: [id number] ROOM/BED:: 57 AGE: 68 SEX: F ATTEND: Luis Carlos Huggins MDADM AUTHOR: Luis Carlos Huggins MDREPT SERVICE DT/TIME: 09/15/23 1041* ALL edits or amendments must be made on the electronic/computer document * Operative ReportORM Surgeries: Surgery Date and Time: 09/15/2023 0730 Primary Procedure: LLE ARTERIOGRAM, POSSIBLE ANGIOPLASTY, Start date: 09/15/23Start time: 1100Pre-procedure diagnosis:Atherosclerosis of kaguy[place] arteries left leg with arterial occlusion and heeland tow ulcersLeft leg Critical limb ischemiaPost-procedure diagnosis:sameProcedures performed:1. Percutaneous ultrasound-guided active access right common femoral artery with images maintained [place] record [id number], 2. Bilateral lower extremity arteriogram 037351. Left superficial femoral artery to popliteal artery 5 mm x 25 cm Viabahn stent graft and 6 mm X 40 mm Alluvia drug stent with 5 mm balloon angioplasty ofthe entire vessel extending to the popliteal artery [id number]. Left posterior tibial artery angioplasty, 0.9 laser atherectomy with 2.0 mm balloon angioplasty and placement of 3.0 X 20 mm balloon expandable covered stent, Judit 36769Hkoivjezn/Procedure:The patient was brought into the op room and prepped and draped in usual sterilemanner. Percutaneous ultrasound-guided active access was obtained to right common femoral artery to my catheter system and exchanged over a Glidewire to 6 Martiniquais 10 cm sheath. An Omni Flush cath was placed in the abdominal aorta and aGlidewire was used to extend the catheter down to the left common femoral arteryleft extremity arteriogram was completed. The patient was heparinized with 7000units of heparin. An advantage wire was advanced into the occluded superficial femoral artery and the sheath was exchanged to a 6 Martiniquais 90 cm sheath and advanced through the superficial femoral artery occlusion. The distal occlusivecalcified cap was then crossed with a Enriquez cross catheter and Glidewire and angioplasty was completed of the cap with a 3 mm balloon. The Enriquez cross catheter was then advanced and distal angiography was completed to confirm true luminal flow. The wire was exchanged to a 0.014 wire placed into the occluded plantar artery. The femoral artery occlusion was then treated with a 5 mm x 25 cm Viabahn stent graft deployed through the occlusion to the ostium with addition of a 6 mm x 40 mm Radha self-expanding bare-metal drug-eluting stent at the distal extent secondary to persistent stenosis at the cap with 5 mm post angioplasty. The wire was exchanged to a 0.014 run-through wire and 0.9 laser atherectomy was completed of the entire length of the posterior tibial artery with 2 mm balloon angioplasty. Plantar artery occlusion was then crossed with a014 wire and catheter. Distal angiography was completed to confirm true luminalflow to the plantar arch. The 2 mm balloon was not able to cross the occluded plantar artery distally therefore 1.5 mm balloon angioplasty was completed of the entire plantar vessel. There is extravasation noted at the mid posterior tibial artery. Long inflation time was then maintained with a 2 mm balloon angioplasty. There was persistent extravasation. Considering the patient's anticoagulation was decided at this time to place a covered balloon expandable stent and a Papyrus 3 mm x 20 mm stent was placed with good result. The sheath was then pulled back to the right external iliac artery and right lower extremity arteriogram was completed. Angio-Seal device was then used to close right groin access without difficulty.Primary Surgeon: Dr. Luis Carlos HugginsAssistant(s): noneAnesthesia: general anesthesiaOperative findings:Patent bilateral common femoral arteries to profunda femoris. Left superficial femoral artery is occluded. There is reconstitution of the popliteal artery through profunda collaterals. Distal popliteal artery is patent. Bilateral anterior tibial arteries and tibioperoneal trunks and peroneal arteries are patent. The left posterior tibial artery is patent extending to the distal leg with critical tapering stenosis >80% and occluded plantar arteries. There is severe microvascular disease extending to the distal left foot and distal tibialarteries are not well visualized on retrograde angiography. Right posterior tibial artery is patent to the distal leg. Complications: noneEstimated blood loss in ml's: noneSpecimens removed/altered: noneImplant(s): stent at 1335 RPT #:[id number] OF REPORTOPOperative mbmson9051-30-68B18:41:00G.[id number] Available for patient hpzyGRJVTMQZTEKMFJ9752-34-90D70:35:56 [facility] 2023-09-15 10:35:00 [id number]+QISpppavQYFxhxXXI jPnvHf wJdoNzxmTlpzGBouuiUFeZsSuVG1jw0851-98-67F17:35 :00 [facility] ([facility])Brief Op NoteREPORT#:[id number] REPORT STATUS: SignedREPORT INITIALIZATION DATE:09/15/23 TIME: 1035 PATIENT: JOSEPH ROWLEY UNIT #: [id number]#: [id number] ROOM/BED:: 57 AGE: 68 SEX: F ATTEND: Luis Carlos Huggins [facility] AUTHOR: Luis Carlos Huggins MDREPT SERVICE DT/TIME: 09/15/23 1035* ALL edits or amendments must be made on the electronic/computer document * Op/Inv Proc Note - BriefORM Surgeries: Surgery Date and Time: 09/15/2023 0730 Primary Procedure: LLE ARTERIOGRAM, POSSIBLE ANGIOPLASTY, Pre-procedure diagnosis:Atherosclerosis of kaguyuk arteries left leg with arterial occlusion and heeland tow ulcersLeft leg Critical limb ischemiaPost-procedure diagnosis: same as pre procedure dxProcedures performed:1. Percutaneous ultrasound-guided active access right common femoral artery with images [place] record [id number], 2. Bilateral lower extremity arteriogram 339077. Left superficial femoral artery to popliteal artery 5 mm x 25 cm Viabahn stent graft and 6 mm X 40 mm Alluvia drug stent with 5 mm balloon angioplasty ofthe entire vessel extending to the popliteal artery 673716. Left posterior tibial artery angioplasty, 0.9 laser atherectomy with 2.0 mm balloon angioplasty and placement of 3.0 X 20 mm balloon expandable covered stent, Eddieysrus 12961Dcaezpz Surgeon:Dr. Luis Carlos HugginsAssistant(s): noneFindings:Patent bilateral common femoral arteries to profunda femoris. Left superficial femoral artery is occluded. There is reconstitution of the popliteal artery through profunda collaterals. Distal popliteal artery is patent. Bilateral anterior tibial arteries and tibioperoneal trunks and peroneal arteries are patent. The left posterior tibial artery is patent extending to the distal leg with critical tapering stenosis >80% and occluded plantar arteries. There is severe microvascular disease extending to the distal left foot and distal tibialarteries are not well visualized on retrograde angiography. Right posterior tibial artery is patent to the distal leg. Complications: noneEstimated blood loss in ml's: noneSpecimens removed/altered: none at 1335 RPT #:[id number] OF REPORTOPOperative yrfyij6887-69-31O86:35:00G.[id number] Available for patient rifbJJBNMOVYQKPJBW9719-56-88M25:35:56 [facility] 2023-09-15 10:32:00 [id number]+4bmN1FWw+v q0Vpej liG7ImQFcZjXDNFhycU1RtvASXL73G7909-46-22E00:32 :00 [facility] ([facility])Brief Discharge Note w/Med RecREPORT#:[id number] REPORT STATUS: SignedREPORT INITIALIZATION DATE:09/15/23 TIME: 103 PATIENT: JOSEPH ROWLEY UNIT #: [id number]#: [id number] ROOM/BED:: 57 AGE: 68 SEX: F ATTEND: Luis Carlos Huggins MDADM AUTHOR: Luis Carlos Huggins MDREPT SERVICE DT/TIME: 09/15/23 1032* ALL edits or amendments must be made on the electronic/computer document * Med Rec Med RecDischarge meds:Continue taking these medications:FAMOTIDINE (PEPCID) 40 MG TAB 40 MILLIGRAM ORAL BEDTIME. [NOVOLOG INSULIN PUMP] SUBCUTANEOUS TRAVOPROST (TRAVATAN-Z 0.004% OPHTH) 0.004 % OPHTH.SOLN 1 DROPS LEFT EYE BEDTIME. DORZOLAMIDE/TIMOLOL (COSOPT 2%-0.5% OPHTH) 22.3 MG-6.8 MG/ML OPHTH.SOLN 1 DROPS EACH EYE EVERY 12 HOURS. METOPROLOL SUCC XL (TOPROL XL) 25 MG TAB.SR.24H 25 MILLIGRAM ORAL DAILY. Days = 30 Qty = 30 ATORVASTATIN (LIPITOR) 40 MG TAB 40 MILLIGRAM ORAL BEDTIME. Days = 30 Qty = 30 ASPIRIN EC (ECOTRIN) 81 MG TAB.EC 81 MILLIGRAM ORAL DAILY. Days = 30 Qty = 30 BUMETANIDE (BUMEX) 2 MG TAB 2 MILLIGRAM ORAL TWICE DAILY. CLOPIDOGREL (PLAVIX) 75 MG TAB 75 MILLIGRAM ORAL DAILY. LATANOPROST (XALATAN 0.005% OPHTH SOLN) 0.005 % OPHTH.SOLN 1 DROPS RIGHT EYE BEDTIME. Comments: PATIENT USES VYZULTA MIDODRINE (PROAMATINE) 5 MG TAB 5 MILLIGRAM ORAL THREE TIMES A DAY. Objective ResultsFindings/Data:Laboratory Tests: 09/15 0654 Chemistry Sodium (134 - 147 mEq/L) 133 L Potassium (3.4 - 5.0 mEq/L) 4.5 Chloride (100 - 108 mEq/L) 96 L Carbon Dioxide (21 - 33 mEq/l) 22 Anion Gap (0 - 20) 19 BUN (7 - 25 mg/dL) 21 Creatinine (0.6 - 1.3 mg/dL) 3.0 H Glomerular Filtr Rate (80 - 90) 16.6 L Glucose (77 - 141 mg/dL) 159 H Calcium (8.0 - 10.5 mg/dL) 10.2 Brief Discharge Note w/Med RecProblem List/A P: 1. PAD (peripheral artery disease) Discharge to: Home/Self CareDischarge diagnosis:Atherosclerosis of kaguyuk arteries left leg with arterial occlusion and heeland tow ulcersLeft leg Critical limb ischemiaPt. condition on discharge: stableAdditional Discharge Routines: Attending Follow-Up, Wound/Dressing CareDiet: Resume Home Diet/FeedsActivity: No Strenuous ActivityWound/dressing care: Clean wound daily, Do not submerge incision, Keep wound clean and dry, OK to shower tomorrow Follow-up AppointmentsAttending Physician: Attending Physician: Luis Carlos Huggins MD Attending physician follow up timeframe: In 1-2 weeks at [address] [facility] #:[id number] OF REPORTDSDischarge zlcykwq6263-76-07K50:32:00G.[id number] VAvailable for patient wrdbMKTFONACIEFYLV9488-79-67D69:34:07 [facility] 2023-09-09 15:54:00 [id number]/LPWWYf54ZPNyMYqedO3G WhdfBr TreDoXejfoGZ6DsSkaPqI6TmhVCNwm8916-16-80Q88:54 :[id number] [place] [address] PATIENT NAME: JOSEPH ROWLEY ADMIT DATE: 07/12/23ACCOUNT NO: [id number] ROOM NO: [facility] AGE: 68 REPORT TYPE: OPERATIVE REPORT SEX: F ADMITTING PHYSICIAN:Tanvir Prasad MD ATTENDING PHYSICIAN:Tanvir Prasad MD OPERATION DATE: 07/21/2023 PREOPERATIVE DIAGNOSES: Coronary artery disease, cardiomyopathy. POSTOPERATIVE DIAGNOSES: Coronary artery disease, cardiomyopathy. PROCEDURE: Coronary artery bypass grafting. SURGEON: Miguel Lyon MD. QUALITY INTERNSHIP SURGEON: Greyson Bowen MD. ANESTHESIA: PROCEDURE IN DETAIL: Please refer to the detailed operative note by Dr. Lyon. I assisted Dr. Lyon during all the critical portions of surgery including cardiopulmonary bypass, coronary anastomosis. A second surgeon was needed to complete this complex cardiac procedure safely. Dictated By: Greyson Bowen MD Date Dictated: 09/09/2023 15:54:33Date Transcribed: 09/09/2023 16:02:23KM/Hedy #: [id number] ID: [id number] by Greyson Bowen MD, FACS On 09/13/2023 10:48:07 AM at 1048 PATIENT NAME: JOSEPH ROWLEY xjltof6683-05-19W80:02:00G.[id number] vailable for patient tjrkUFYGFJYIUMQHBQ0437-46-81L43:48:46 [facility] 2023-09-02 08:06:00 [id number]NC6a x/MRkq iuB69H3DuXp2Op0JNN2H3r/nBS4q2J7016-48-11S28:06 :00 [facility] ([facility])Discharge SummaryREPORT#:[id number] REPORT STATUS: SignedREPORT INITIALIZATION DATE:09/02/23 TIME: 805 PATIENT: JOSEPH ROWLEY UNIT #: [id number]#: [id number] [place] [facility]DOB: [birth year] AGE: 68 SEX: F ATTEND: Donna Tam DOADM AUTHOR: Donna Tam DOREPT SERVICE DT/TIME: 09/02/23 0806* ALL edits or amendments must be made on the electronic/computer document * PCP PCPDischarge to: home General InformationDate of admission:Observation Start Date: 09/01/23Date of admission: 09/01/23 Discharge date: 09/02/23Discharge diagnosis:1. Bilateral extremity critical limb ischemia with nonhealing wounds2. Aortic atherosclerosis with bilateral iliac artery occlusions3. Atherosclerosis of bilateral lower extremities with bilateral toe gangrene and right heel gangrene and occlusion of bilateral superficial femoral arteries4. Type I diabetes mellitus with hyperglycemia5. HTN6. ESRD on HDHospital course: Plan:Pt is s/p bilateral abdominal gram and peripheral angio with stents to B common ilac artery, B external iliac artery stents, R superficial femoral artery to popliteal artery stent graft, R post tibial artery angioplasty.- continue Plavix post procedure- follow up wound care as outpatientESRD- pt to get HD tonight prior to going home to [place] tomorrowDM1- pt will be allowed to use her continuous glucose monitor and insulin pump once it is proven to be functional. Give 1 time dose of Insulin lispro 10 unitsx 1 now. HTN- resume home meds 09/02/23Pt wishes to go home early today. Pt received HD last evening. Cleared by Dr. Huggins for d/c today with plans on more procedures next week. Med Rec PCPPCP:PCP: Benito Nugent MD Med RecDischarge meds:Continue taking these medications:FAMOTIDINE (PEPCID) 40 MG TAB 40 MILLIGRAM ORAL BEDTIME. [NOVOLOG INSULIN PUMP] SUBCUTANEOUS TRAVOPROST (TRAVATAN-Z 0.004% OPHTH) 0.004 % OPHTH.SOLN 1 DROPS LEFT EYE BEDTIME. DORZOLAMIDE/TIMOLOL (COSOPT 2%-0.5% OPHTH) 22.3 MG-6.8 MG/ML OPHTH.SOLN 1 DROPS EACH EYE EVERY 12 HOURS. METOPROLOL SUCC XL (TOPROL XL) 25 MG TAB.SR.24H 25 MILLIGRAM ORAL DAILY. Days = 30 Qty = 30 ATORVASTATIN (LIPITOR) 40 MG TAB 40 MILLIGRAM ORAL BEDTIME. Days = 30 Qty = 30 ASPIRIN EC (ECOTRIN) 81 MG TAB.EC 81 MILLIGRAM ORAL DAILY. Days = 30 Qty = 30 MIDODRINE (PROAMATINE) 2.5 MG TAB 2.5 MILLIGRAM ORAL 0800,1200,1600 Qty = 90 BUMETANIDE (BUMEX) 2 MG TAB 2 MILLIGRAM ORAL TWICE DAILY. CLOPIDOGREL (PLAVIX) 75 MG TAB 75 MILLIGRAM ORAL DAILY. LATANOPROST (XALATAN 0.005% OPHTH SOLN) 0.005 % OPHTH.SOLN 1 DROPS RIGHT EYE BEDTIME. Comments: PATIENT USES VYZULTA Discharge Instructions PCPPCP:PCP: Benito Nugent MD )( Discharge to: Home/Self Care Discharge InstructionsAdditional Discharge Routines: Director Of Quality Follow-Up)( Diet: Diabetic)( Activity: As ToleratedPrescriptions: none Follow-up AppointmentsConsulting provider 1: Provider 1: Luis Carlos Huggins MD Specialty: Vascular Surgery Consult follow up timeframe: In 1-2 weeks Special instructions:Follow up next week Quality: Discharge Advanced Care Plan 65 or OlderDiscussed with: patient (full code) Current MedicationsCurrent medication review:I attest that the foregoing medication list in the medical record is true, accurate, and complete to the best of my knowledge. BMI Screening > 25 or < 18.5Patient's BMI:Current BMI: 29.2 BMI status/follow-up: not eligible for plan (phys disability) Tobacco Use/CounselingTobacco use/counseling: non tobacco user, no counseling needed HTN Screening/Follow-upLast documented vitals:Last Documented: Result Date Time Pulse Ox 99 09/02 741 B/P 103/62 09/02 741 B/P Mean 75.2 09/02 741 O2 Delivery Room air 09/02 741 Temp 98.1 09/02 741 Pulse 82 09/02 741 Resp 18 09/02 741 O2 Flow Rate 8 09/01 1215 B/P assess/follow-up: normal B/P, no f/u req at [address] [facility] #:[id number] OF REPORTDSDischarge snyxqmk9457-20-22I51:06:00G.[id number] VAvailable for patient xpdeTURMULOALCDQJY4935-07-45N36:08:41 [facility] 2023-09-02 07:57:00 [id number]Ul1Z WVNX8j WqVd1RXnLGRwUzw42RqUG/2chDOo6t9357-93-24J36:57 :00 [facility])Nephrology Consultation NoteREPORT#:[id number] REPORT STATUS: SignedREPORT INITIALIZATION DATE:09/02/23 TIME: 756 PATIENT: JOSEPH ROWLEY UNIT #: [id number]#: [id number] [address] [birth year] AGE: 68 SEX: F ATTEND: Donna Tam DOADM AUTHOR: Winnie Noyola MDREPT SERVICE DT/TIME: 09/02/23756* ALL edits or amendments must be made on the electronic/computer document * History of Present IllnessReason for consult:ESRDHPI:Patient is a 68-year-old female with past medical history of ESRD on hemodialysis Tuesday, diabetes type 1 since she was 6 years old,hypotension was admitted after peripheral angiogram. Had hemodialysis yesterday. No complaint. Eager to go home. History - Adult longitudinalAdditional medical history:type 1 diabetes from the age of 46 years old, end-stage renal disease, on dialysis since July 2022, hypertensionFamily history:Denies: CAD < 40 yrs old. Additional family history:reviewed and is noncontributory.Alcohol use: Denies EtOH useDrug use: Denies recreational drugsSmoking status for patients 13 years old or older: Former SmokerPacks per day: 1Years smoked: 10Pack years: 10Allergies:Coded Allergies:sulfamethoxazole (From BACTRIM) (Severe, ANAPHYLAXIS 08/30/23)trimethoprim (From BACTRIM) (Severe, ANAPHYLAXIS 08/30/23)codeine (Mild, NAUSEA 08/30/23) Review of SystemsAdditional notes:No new complaint. Objective GeneralVS/I O:Vital Signs:Date Time Temp Pulse Resp B/P B/P Pulse O2 O2 Flow FiO2 Mean Ox Delivery Rate09/02 0741 98.1 82 18 103/62 75.2 99 Room air10/20 0351 98.2 81 14 103/55 71.2 97 Room air10/20 0208 81 96/55 68.710/20 0003 97.9 82 15 81/43 55.3 96 Room air10/19 2021 97.5 93 18 103/63 76.4 97 Room air10/19 1825 97.9 86 19 102/47 99 Room air10/19 1508 97.7 80 20 119/56 99 Room air10/19 1445 80 15 122/58 84340/19 1430 80 16 117/55 91017/19 1415 80 15 115/53 13995/19 1400 78 14 109/54 89809/19 1345 78 14 111/52 53770/19 1330 78 14 111/53 67085/19 1315 78 14 112/54 68687/19 1300 78 14 118/58 72299/19 1248 Simple mask10/19 1245 78 14 116/57 100 Room air10/19 1235 74 14 113/56 05668/19 1230 76 14 110/54 40896/19 1225 72 14 101/52 73688/19 1220 68 14 90/43 29054/19 1215 97.3 66 14 91/42 100 Open 8 mask/diffuser 24 hour I O ending at 0700: 09/02 0700 09/01 1900 Intake Total 120 Output Total 1300 Balance -1180 Intake, Oral 120 Output, 1300 Hemodialysis PATIENT WEIGHT: Weight (lb): 130Weight (oz): 4.37Weight (kg): 59.091 Medications:Active Meds + DC'd Last 24 HrsClopidogrel Bisulfate (Plavix) 75 MG DAILY PO Metoprolol Succinate (TOPROL XL) 25 MG DAILY PO Midodrine (PROAMATINE) 2.5 MG ONCE ONE PO (DC) Atorvastatin Calcium (LIPITOR) 40 MG BEDTIME PO Bumetanide (BUMEX) 2 MG BID PO Famotidine (PEPCID) 40 MG BEDTIME PO Latanoprost (XALATAN 2.5 ML OPHTH SOLN) 1 DROP BEDTIME RIGHT EYE Travoprost (TRAVATAN) 1 DROP BEDTIME LEFT EYE (CAN) Ondansetron HCl (ZOFRAN) 4 MG Q4H PRN PRN IV Midodrine (PROAMATINE) 2.5 MG 0800,1200,1600 PO Albumin Human (ALBUMINAR-25%) 12.5 GM ASDIR PRN IV Aspirin (ASPIRIN) 81 MG DAILY PO Heparin Sodium (Porcine) (HEPARIN SODIUM) 3,000 UNIT ASDIR PRN DIALYSIS Lidocaine HCl (LIDOCAINE HCL/PF) 0.5 ML ASDIR PRN I-DERMAL (CKD) Mannitol (Mannitol 20%) 12.5 GM ASDIR PRN IV Sodium Chloride (SODIUM CHLORIDE 0.9%) 2,000 ML ASDIR PRN IV Sodium Chloride (SODIUM CHLORIDE) 5 ML ASDIR PRN IV Sodium Chloride (SODIUM CHLORIDE) 10 ML ASDIR PRN IV Sodium Chloride (SODIUM CHLORIDE 0.9%) 250 ML ASDIR PRN IV Aspirin (ASPIRIN) 0 .STK-MED ONE PO (DC) Acetaminophen (TYLENOL) 650 MG Q4H PRN PRN PO Docusate Sodium (COLACE) 100 MG BID PRN PRN PO Hydralazine HCl (APRESOLINE) 10 MG Q6H PRN PRN IV Hydrocodone Bitart/Acetaminophen (NORCO 5/325) 1 TAB Q6H PRN PRN PO Patient Own Medication (PT'S OWN INSULIN PUMP) REGULAR INSULIN PUMP TO BE MANAGED BY PATIENT ASDIR SUBQ Zolpidem Tartrate (AMBIEN) 5 MG BEDTIME PRN PRN PO Insulin Human Lispro (HUMALOG) 10 UNIT NOW ONE SUBQ (DC) Insulin Human Lispro (HUMALOG) 0 .STK-MED ONE SUBQ (DC) Insulin Human Lispro (HUMALOG) 0 .STK-MED ONE SUBQ (DC) Clopidogrel Bisulfate (Plavix) 0 .STK-MED ONE .ROUTE (DC) Insulin Human Lispro (HUMALOG) 0 .STK-MED ONE SUBQ (DC) Ondansetron HCl (ZOFRAN) 0 .STK-MED ONE .ROUTE (DC) Clopidogrel Bisulfate (Plavix) 150 MG PACU ONCE ONE PO (DC) Nitroglycerin (NITRO-DUR 0.1MG/HR) 1 PATCH ONCE ONE TRANSDERM (DC) Nitroglycerin (NITRO-DUR 0.1MG/HR) 1 PATCH PACU ONE TRANSDERM (DC) Nitroglycerin (NITRO-DUR 0.1MG/HR) 0 .STK-MED ONE TRANSDERM (DC) Heparin Sodium (HEPARIN SODIUM) 0 .STK-MED ONE .ROUTE (DC) Fentanyl Citrate (SUBLIMAZE) 0 .STK-MED ONE .ROUTE (DC) Diphenhydramine HCl (BENADRYL) 12.5 MG PACU ONCE PRN IV (DC) Fentanyl Citrate (SUBLIMAZE) 100 MCG PACU Q10MIN PRN PRN IV (DC) Fentanyl Citrate (SUBLIMAZE) 50 MCG PACU Q10MIN PRN PRN IV (DC) Hydralazine HCl (APRESOLINE) 5 MG PACU Q10MIN PRN PRN IV (DC) Hydrocodone Bitart/Acetaminophen (NORCO 5/325) 1 TAB PACU ONCE PO (DC) Hydromorphone HCl (DILAUDID) 1 MG PACU Q10MIN PRN PRN IV (DC) Hydromorphone HCl (DILAUDID) 0.5 MG PACU Q5MIN PRN PRN IV (DC) Insulin Human Lispro (HUMALOG) 0 PACU ONCE PRN SUBQ (DC) Labetalol HCl (LABETALOL HCL) 5 MG PACU Q10MIN PRN PRN IV (DC) Meperidine HCl (MEPERIDINE HCL/PF) 12.5 MG PACU ONCE PRN IV (DC) Morphine Sulfate (morphine SULFATE) 2 MG PACU Q10MIN PRN PRN IV (DC) Ondansetron HCl (ZOFRAN) 4 MG PACU ONCE PRN IV (DC) Promethazine HCl (PHENERGAN) 25 MG PACU ONCE PRN PO (DC) Ropivacaine (NAROPIN 0.5% 150 MG/30mL) 150 MG ASDIR PRN LOCAL (DC) Tramadol HCl (ULTRAM) 50 MG PACU ONCE PO (DC) Cefazolin Sodium (KEFZOL OR ANCEF) 2 GM PREOP ONCALL IV (CKD) Sodium Chloride (SODIUM CHLORIDE) 20 ML ASDIR IV Acetaminophen (TYLENOL EXTRA STRENGTH) 1,000 MG PREOP ONCALL PO (DC) Gabapentin (NEURONTIN) 200 MG PREOP ONCALL PO (DC) Lactated Ringer's (LACTATED RINGERS) 1,000 ML PREOP ONCALL IV (DC) Lidocaine HCl (LIDOCAINE HCL/PF) 2 ML PREOP ONCALL LOCAL (DC) Lidocaine HCl (LIDOCAINE HCL/PF) 2 ML PREOP ONCALL LOCAL (DC) Sodium Chloride (SODIUM CHLORIDE 0.9%) 500 ML PREOP ONCALL IV (DC) Sodium Chloride (SODIUM CHLORIDE 0.9%) 500 ML PREOP ONCALL IV (DC) Sodium Chloride (SODIUM CHLORIDE 0.9%) 1,000 ML PREOP ONCALL IV (DC) Sodium Chloride (SODIUM CHLORIDE) 5 ML ASDIR PRN IV (DC) Sodium Chloride (SODIUM CHLORIDE) 10 ML ASDIR PRN IV (DC) Sodium Chloride (SODIUM CHLORIDE 0.9%) 250 ML ASDIR PRN IV (DC) Physical ExamGeneral appearance: alert, awake, oriented, no acute distressHead/eyes: atraumatic, normocephalic, PERRLANeck: no JVD, no lymphadenopathyCardiovascular: normal heart sounds, regular rate and rhythm, no murmur, no rubRespiratory: aerating well, clear to auscultation, no distressAbdomen: non-tender, normal bowel sounds, soft, no reboundGenitourinary: no bladder distention, no flank pain, no urinary catheterExtremities: no edemaNeuro/CREDENTIALS SPECIALIST: alert, oriented X 3, CN II-XII intact, normal speech ResultsFindings/Data:Laboratory Tests 09/02 09/01 09/01 09/01 09/01 0311 2025 1709 1407 1218 Chemistry Sodium (134 - 147 mEq/L) 134 Potassium (3.4 - 5.0 mEq/L) 3.9 Chloride (100 - 108 mEq/L) 97 L Carbon Dioxide (21 - 33 mEq/l) 24 Anion Gap (0 - 20) 16 BUN (7 - 25 mg/dL) 31 H Creatinine (0.6 - 1.3 mg/dL) 2.3 H Glomerular Filtr Rate (80 - 90) 22.9 L Glucose (77 - 141 mg/dL) 454 *H POC Glucose (70 - 110 MG/DL) 254 H 149 H 405 H 347 H Calcium (8.0 - 10.5 mg/dL) 8.7 Laboratory Tests 09/01 1513 Coagulation INR (0.8 - 1.2) 1.1 PT Patient/Control Mix (9.3 - 12.9 SECONDS) 11.8 Laboratory Tests 09/02 09/01 0311 1513 Hematology WBC (4.5 - 11.0 x10 3/uL) 10.6 8.2 RBC (3.54 - 5.02 x10 6/uL) 3.28 L 3.50 L Hgb (11.0 - 15.0 g/dL) 11.0 12.0 Hct (33.0 - 45.0 %) 36.0 39.1 MCV (81.0 - 99.0 fL) 109.8 H 111.7 H MCH (27.0 - 33.0 pg) 33.5 H 34.3 H MCHC (33.0 - 37.0 g/dL) 30.6 L 30.7 L RDW (11.5 - 14.5 %) 17.9 H 18.1 H Plt Count (150 - 400 x10 3/uL) 329 326 MPV (7.0 - 9.0 fL) 11.2 H 10.9 H Neut % (Auto) (56.0 - 77.0 %) 74.8 95.4 H Lymph % (Auto) (14.0 - 32.0 %) 9.8 L 3.4 L [place] % (Auto) (4.8 - 9.0 %) 14.2 H 0.7 L Eos % (Auto) (0.3 - 3.7 %) 0.6 0.0 L Baso % (Auto) (0.0 - 2.0 %) 0.3 0.1 Neut # (Auto) (2.0 - 7.6 x10 3/uL) 7.90 H 7.78 H Lymph # (Auto) (1.0 - 3.8 x10 3/uL) 1.04 0.28 L [place] # (Auto) (0.1 - 0.8 x10 3/uL) 1.50 H 0.06 L Eos # (Auto) (0.0 - 0.2 x10 3/uL) 0.06 0.00 Baso # (Auto) (0.0 - 0.2 x10 3/uL) 0.03 0.01 Abs Immat Gran (auto) (0.00 - 0.03 x10 3/uL) 0.03 0.03 Immature Gran % (0.0 - 2.0 %) 0.3 0.4 Nucleated RBC % (0 - 0 %) 0.0 0.0 Nucleated RBCs # (Man) (0.0 - 0.1 x10 3/uL) 0.00 0.00 Laboratory Tests 09/01 1513 Serology Hepatitis A IgM Ab (NON REACT. INDEX) NON REACTIVE Hep Bs Antigen (NonReactive INDEX) NON REACTIVE Hep B Core IgM Ab (NON REACT. INDEX) NON REACTIVE Hepatitis C Antibody (NON REACT. INDEX) NON REACTIVE Diagnosis, Assessment Plan Free Text DxA P NotesFree text DxA P notes:1. ESRD patient had dialysis yesterday. Continue with Tuesday dialysis schedule as an outpatient. No acute indication for hemodialysis today. 2. Diabetes type 1 and needs better sugar control. Follow-up with PCP 3. Peripheral arterial disease status post angiogram. Vascular surgery follow-up 4. Hypotension on midodrine 5. Anemia of CKD start MATT if hemoglobin less than 10 Discussed with at bedsideDiscussed with primary attendingOkay to ROSIBEL from nephrology Thank you for the consult at 0958 RPT #:[id number] OF REPORTEDOuknmznxuztt1237-15-32W64:57:00G.PD [id number] for patient vgufTLSTKZSGSDNGQN8759-63-66N35:58:42 [facility] [place] 2023-09-01 14:15:00 [id number]+KhbUC3x 3Wc50k rGbe+C8Z+udJ9ZB7QnaXhgf74CkD+j4606-64-13U95:15 :00 [facility] ([facility])Hospitalist History PhysicalREPORT#:[id number] REPORT STATUS: SignedREPORT INITIALIZATION DATE:09/01/23 TIME: 1415 PATIENT: JOSEPH ROWLEY UNIT #: [id number]#: [id number] [address] AGE: 68 SEX: F ATTEND: Donna Tam DOADM AUTHOR: Donna Tam DOREPT SERVICE DT/TIME: 09/01/23 7725* ALL edits or amendments must be made on the electronic/computer document * History of Present Illness HPIChief complaint:limb ischemiaPCP:PCP: Benito Nugent MD HPI:MS. Rowley is a 68 yo female with ESRD on HD, critical limb ischemia with non healing wounds, DM1 diabetes with hyperglycemia, HTN presented today for bilateral peripheral angiogram with stenting with Dr. Huggins. She is being admitted overnight for HD. Pt currently has hyperglycemia as her insulin pump was turned off during surgery. Pt would like to use her continuous glucose monitor and insulin pump while inpt. She is otherwise without complaints.Hx Obtained From Patient, Daughter, Prior medical records History Past Medical Surgical HxAdditional medical history:type 1 diabetes from the age of 46 years old, end-stage renal disease, ondialysis since July 2022, hypertension Family HistoryFamily history:Denies: CAD < 40 yrs old. Additional family history:reviewed and is noncontributory. Social HistoryAlcohol use: Denies EtOH useDrug use: Denies recreational drugsSmoking status for patients 13 years old or older: Former SmokerPacks per day: 1Years smoked: 10Pack years: 10 Medication/Allergy-Vaccine HxAllergies:Coded Allergies:sulfamethoxazole (From BACTRIM) (Severe, ANAPHYLAXIS 08/30/23)trimethoprim (From BACTRIM) (Severe, ANAPHYLAXIS 08/30/23)codeine (Mild, NAUSEA 08/30/23) Review of SystemsSkin:Reports: other (non healing B foot wounds). All systems rev neg: except as noted OBJECTIVEVS/I O:Vital Signs Date Temp Pulse Resp B/P B/P Mean Pulse Ox FiO2 09/01 97.0-97.3 66-83 14-18 91-139/42-60 97-100 Last Documented: Result Date Time O2 Delivery Simple mask 09/01 1248 Pulse Ox 100 09/01 1245 B/P 116/57 09/01 1245 Pulse 78 09/01 1245 Resp 14 09/01 1245 O2 Flow Rate 8 09/01 1215 Temp 97.3 09/01 1215 24 hour I O ending at 0700: 09/01 0700 08/31 1900 Intake Total Output Total Balance Patient 59.091 kg Weight Weight Stated/Reported Measurement Method Patient Weight and BMI Weight (kg): 59.091 BMI: 29.2 Medications:Active Meds + DC'd Last 24 HrsInsulin Human Lispro (HUMALOG) 10 UNIT NOW ONE SUBQ (UNV) Insulin Human Lispro (HUMALOG) 0 .STK-MED ONE SUBQ (DC) Insulin Human Lispro (HUMALOG) 0 .STK-MED ONE SUBQ (DC) Clopidogrel Bisulfate (Plavix) 0 .STK-MED ONE .ROUTE (DC) Insulin Human Lispro (HUMALOG) 0 .STK-MED ONE SUBQ (DC) Ondansetron HCl (ZOFRAN) 0 .STK-MED ONE .ROUTE (DC) Clopidogrel Bisulfate (Plavix) 150 MG PACU ONCE ONE PO (DC) Nitroglycerin (NITRO-DUR 0.1MG/HR) 1 PATCH ONCE ONE TRANSDERM (UNV) Nitroglycerin (NITRO-DUR 0.1MG/HR) 1 PATCH PACU ONE TRANSDERM (UNV) Nitroglycerin (NITRO-DUR 0.1MG/HR) 0 .STK-MED ONE TRANSDERM (DC) Heparin Sodium (HEPARIN SODIUM) 0 .STK-MED ONE .ROUTE (DC) Fentanyl Citrate (SUBLIMAZE) 0 .STK-MED ONE .ROUTE (DC) Diphenhydramine HCl (BENADRYL) 12.5 MG PACU ONCE PRN IV Fentanyl Citrate (SUBLIMAZE) 100 MCG PACU Q10MIN PRN PRN IV Fentanyl Citrate (SUBLIMAZE) 50 MCG PACU Q10MIN PRN PRN IV Hydralazine HCl (APRESOLINE) 5 MG PACU Q10MIN PRN PRN IV Hydrocodone Bitart/Acetaminophen (NORCO 5/325) 1 TAB PACU ONCE PO (CKD) Hydromorphone HCl (DILAUDID) 1 MG PACU Q10MIN PRN PRN IV Hydromorphone HCl (DILAUDID) 0.5 MG PACU Q5MIN PRN PRN IV Insulin Human Lispro (HUMALOG) 0 PACU ONCE PRN SUBQ Labetalol HCl (LABETALOL HCL) 5 MG PACU Q10MIN PRN PRN IV Meperidine HCl (MEPERIDINE HCL/PF) 12.5 MG PACU ONCE PRN IV Morphine Sulfate (morphine SULFATE) 2 MG PACU Q10MIN PRN PRN IV Ondansetron HCl (ZOFRAN) 4 MG PACU ONCE PRN IV Promethazine HCl (PHENERGAN) 25 MG PACU ONCE PRN PO Ropivacaine (NAROPIN 0.5% 150 MG/30mL) 150 MG ASDIR PRN LOCAL Tramadol HCl (ULTRAM) 50 MG PACU ONCE PO (CKD) Cefazolin Sodium (KEFZOL OR ANCEF) 0 .STK-MED ONE .ROUTE (DC) Acetaminophen (TYLENOL EXTRA STRENGTH) 0 .STK-MED ONE .ROUTE (DC) Gabapentin (NEURONTIN) 0 .STK-MED ONE .ROUTE (DC) Fentanyl Citrate (SUBLIMAZE) 0 .STK-MED ONE .ROUTE (DC) Dexamethasone Sodium Phosphate (DECADRON) 0 .STK-MED ONE .ROUTE (DC) Heparin Sodium (HEPARIN SODIUM) 0 .STK-MED ONE .ROUTE (DC) Lidocaine HCl (XYLOCAINE) 0 .STK-MED ONE .ROUTE (DC) Ondansetron HCl (ZOFRAN) 0 .STK-MED ONE .ROUTE (DC) Propofol (DIPRIVAN 200MG/20ML INJECTION) 20 ML .STK-MED ONE IV (DC) Cefazolin Sodium (KEFZOL OR ANCEF) 2 GM PREOP ONCALL IV (CKD) Sodium Chloride (SODIUM CHLORIDE) 20 ML ASDIR IV Acetaminophen (TYLENOL EXTRA STRENGTH) 1,000 MG PREOP ONCALL PO (DC) Gabapentin (NEURONTIN) 200 MG PREOP ONCALL PO (DC) Lactated Ringer's (LACTATED RINGERS) 1,000 ML PREOP ONCALL IV (DC) Lidocaine HCl (LIDOCAINE HCL/PF) 2 ML PREOP ONCALL LOCAL (DC) Lidocaine HCl (LIDOCAINE HCL/PF) 2 ML PREOP ONCALL LOCAL (DC) Sodium Chloride (SODIUM CHLORIDE 0.9%) 500 ML PREOP ONCALL IV (DC) Sodium Chloride (SODIUM CHLORIDE 0.9%) 500 ML PREOP ONCALL IV (DC) Sodium Chloride (SODIUM CHLORIDE 0.9%) 1,000 ML PREOP ONCALL IV (DC) Sodium Chloride (SODIUM CHLORIDE) 5 ML ASDIR PRN IV (DC) Sodium Chloride (SODIUM CHLORIDE) 10 ML ASDIR PRN IV (DC) Sodium Chloride (SODIUM CHLORIDE 0.9%) 250 ML ASDIR PRN IV (DC) General appearance: alert, awake, oriented, no acute distress, pleasant, conversational, mental status normal, no respiratory distressHead/Eyes: atraumatic, EOMI, normocephalic, PERRLAENT: moist mucosal membranes, normal ear left, normal ear right, normal noseNeck: no JVDCardiovascular: normal heart sounds, regular rate rhythmRespiratory: aerating well, clear to auscultation, symmetric expansion, no distressAbdomen: non-tender, normal bowel sounds, soft, no distentionGenitourinary: no bladder distentionExtremities: no edemaMusculoskeletal: bilateral lower extremities have erythematous skin from ankle to foot with woundsNeuro/CREDENTIALS SPECIALIST: alert, oriented X 3, normal speechSkin: as aboveLymphatics: neck normalPsychiatry: normal affect, normal judgment/insight, normal mood ResultsFindings/Data:Laboratory Tests: 09/01 09/01 0757 9829 Blood Gas ABG Hematocrit (33.0 - 45.0 %) 42 ABG Hemoglobin (11.0 - 15.0 G/DL) 14.4 VBG pH (7.33 - 7.45) 7.383 VBG pCO2 (43 - 47 mmHg) 44.1 VBG pO2 (10 - 50 mmHG) 43.7 VBG HCO3 (22 - 27 MMOL/L) 26.3 POC VBG Total CO2 27.6 VBG O2 Saturation (60 - 80 %) 78.3 VBG Base Excess (-4.0 - 4.0 MMOL/L) 0.8 Sodium (134 - 147 mmol/L) 140 Potassium (3.4 - 5.0 mmol/L) 3.6 Chloride (100 - 108 mmol/L) 103 Ionized Calcium (1.12 - 1.32 MMOL/L) 1.20 Lactic Acid (0.9 - 1.7 mmol/l) 0.7 L Chemistry Sodium (134 - 147 mEq/L) 135 Potassium (3.4 - 5.0 mEq/L) 4.4 Chloride (100 - 108 mEq/L) 100 Carbon Dioxide (21 - 33 mEq/l) 23 Anion Gap (0 - 20) 16 BUN (7 - 25 mg/dL) 28 H Creatinine (0.6 - 1.3 mg/dL) 2.9 H POC Creatinine (0.6 - 1.0 mg/dL) 3.2 H Glomerular Filtr Rate (80 - 90) 17.3 L Glucose (77 - 141 mg/dL) 210 H POC Glucose (mg/dL) (70 - 110 MG/DL) 219 H Calcium (8.0 - 10.5 mg/dL) 9.5 Laboratory Tests 09/01/23 0715:[Embedded Image Not Available] Diagnosis, Assessment PlanFree Text A P:1. Bilateral extremity critical limb ischemia with nonhealing wounds2. Aortic atherosclerosis with bilateral iliac artery occlusions3. Atherosclerosis of bilateral lower extremities with bilateral toe gangrene and right heel gangrene and occlusion of bilateral superficial femoral arteries4. Type I diabetes mellitus with hyperglycemia5. HTN6. ESRD on HD Plan:Pt is s/p bilateral abdominal gram and peripheral angio with stents to B common ilac artery, B external iliac artery stents, R superficial femoral artery to popliteal artery stent graft, R post tibial artery angioplasty.- continue Plavix post procedure- follow up wound care as outpatientESRD- pt to get HD tonight prior to going home to [place] tomorrowDM1- pt will be allowed to use her continuous glucose monitor and insulin pump once it is proven to be functional. Give 1 time dose of Insulin lispro 10 unitsx 1 now. HTN- resume home meds at 1432 RPT #:[id number] OF REPORTHPHistory and physical jarcylfasrj8214-98-76J50:15:00G.[id number] for patient mrmsJFJYQEUZYTGSWX1399-19-62H76:33:04 [facility] [place] 2023-09-01 13:08:00 [id number] XriSR3 Kz8bj5x50H5J8niotqlirLNjXjHGm51712-77-76N07:08 :00 [facility] ([facility])Operative Note - FullREPORT#:[id number] REPORT STATUS: SignedREPORT INITIALIZATION DATE:09/01/23 TIME: 1308 PATIENT: JOSEPH ROWLEY UNIT #: [id number]#: [id number] ROOM/BED:: 57 AGE: 68 SEX: F ATTEND: Luis Carlos Huggins MDADM AUTHOR: Luis Carlos Huggins MDREPT SERVICE DT/TIME: 09/01/23 1308* ALL edits or amendments must be made on the electronic/computer document * Operative ReportORM Surgeries: Surgery Date and Time: 09/01/2023 0730 Proposed Primary Procedure: RLE ARTERIOGRAM, POSSIBLE ANGIOPLASTY, Start date: 09/01/23Start time: 829Pre-procedure diagnosis:1. Bilateral extremity critical limb ischemia with nonhealing wounds2. Aortic atherosclerosis with bilateral iliac artery occlusions3. Atherosclerosis of bilateral lower extremities with bilateral toe gangrene and right heel gangrene and occlusion of bilateral superficial femoral arteriesPost-procedure diagnosis:sameProcedures performed:1. Percutaneous ultrasound-guided active access left common femoral artery [place] [address], percutaneous ultrasound-guided active accessright popliteal artery with images maintained for record 763 97 59, percutaneousalso guided active access right posterior tibial artery with images maintained for record 7693 7 592. Abdominal gram [id number]. Bilateral lower extremity arteriogram 228502. Bilateral common iliac artery stents, right 7 mm x 59 mm VBX balloon expandable stent, left 8 mm x 59 mm VBX balloon expandable stent [id number] R, [id number]-[id number]. Bilateral external iliac artery stents, right 6 mm x 7.5 cm Viabahn and 6 mmx 5 cm Viabahn stent grafts, left 7 mm x 79 mm VBX balloon expandable stent [id number] R, 12314-T-657. Right superficial femoral artery to popliteal artery 5 mm x 15 cm Viabahn stent graft with 5 mm drug-coated balloon angioplasty of the entire vessel extending to the popliteal artery 479345. Right posterior tibial artery angioplasty, 2.5 mm balloon [id number]/Procedure:The patient was brought into the operating room prepped and draped in usual sterile manner. Percutaneous also guided active access was obtained to left common femoral artery to my catheter system and the left external iliac artery occlusion was crossed. A Glidewire was placed and a 7 Martiniquais 25 cm sheath was used to cross the distal common iliac artery and eventually across the proximal common iliac artery into the abdominal aorta after passing a Glidewire. Angiography was completed to confirm true luminal flow in the aorta. An Omni Flush catheter was placed and aortogram was completed. The patient was given 6000 units of heparin. An Omni Flush catheter was then used to extend a Glidewire into the right common iliac artery near occlusion and the catheter wasexchanged to a Enriquez cross catheter and the distal external iliac artery occlusion was crossed with a stiff Glidewire. Angiography was completed to confirm true luminal flow in the common femoral artery. The iliac artery occlusion was then treated with a 6 mm x 7.5 cm Viabahn stent graft in the extrailiac artery built up with a 6 mm x 5 cm Viabahn stent graft to the ostium of the external iliac artery. This was post angioplastied with a 6 mm balloon with good result. The right common iliac artery stenosis was treated with a 7 mm x 59 mm VBX balloon expandable stent with good result. The sheath was pulledback in the left common iliac artery occlusions were treated with a 8 mm x 59 mmVBX stent. Finally the sheath was pulled back and a left external iliac artery occlusion was treated with a 8 mm x 79 mm VBX stent. This yielded good result with good flow through the abdominal aorta and iliac arteries. The sheath was then exchanged to a 7 Martiniquais 90 cm sheath advanced to the ostium of the superficial femoral artery. Superficial femoral artery was crossed to Shai's canal. I was not able to extend further and maintain true luminal flow therefore percutaneous ultrasound-guided active access was obtained to the popliteal artery retrograde. I was able to establish a body floss and advanced the sheath further down but was not able to maintain true flow still on antegrade wire access through the Shai's canal occlusion. Therefore percutaneous ultrasound-guided active access was obtained to the right posteriortibial artery at the malleolus with a micropuncture system and a Glidewire was extended retrograde through the posterior tibial artery into the 7 Martiniquais sheathand body floss was again reobtained and the sheath was then advanced through theocclusion into the popliteal artery distally. The wire was exchanged to a 0.018wire and a 5 mm x 15 cm Viabahn stent graft was then deployed across the occluded femoral-popliteal transition. There remaining superficial femoral artery occlusions were treated with a 5 mm drug-coated balloon which was also used to post angioplasty of the stent graft. The outflow posterior tibial artery critical stenosis was treated by advancing a 0.014 wire into the plantar arteries and with postangioplasty with a 2.5 mm balloon. All micropuncture axeswere removed. Good hemostasis was noted. Good flow was noted through all vessels. The sheath was then pulled back to the left external iliac artery leftextremity arteriogram was completed. The patient will have planned return to the operating for treatment of her left superficial femoral artery occlusion forcritical limb ischemia. Angio-Seal device was then used to close left groin access without difficulty. The patient taught the procedure well. There was nocomplications. The patient was stable and discharged to PACU.Primary Surgeon: Dr. Luis Carlos HugginsAssistant(s): noneAnesthesia: general anesthesiaOperative findings:Aortogram demonstrates patent abdominal order with antegrade flow to the celiac trunk, splenic artery, common hepatic artery and gastroduodenal arteries. The superior mesenteric arteries. Antegrade flow. The inferior mesenteric artery is difficult to visualize but appears to be patent. A large meandering artery is noted however in the abdomen and large lumbar shunt noted. There is a aorticstenosis to approximately 30% below the renal arteries. There is bilateral common iliac stenosis with 80% right common iliac stenosis and left common iliacostial occlusion. Bilateral internal iliac arteries are patent. Bilateral external iliac arteries are occluded. There is reconstitution to bilateral common femoral arteries to profunda femoris. Bilateral superficial femorals areoccluded. There is reconstitution of bilateral popliteal arteries through profunda collaterals. Distal popliteal arteries are patent bilaterally. Bilateral anterior tibial arteries and tibioperoneal trunks and peroneal arteries are patent. The right distal posterior tibial artery has tapering stenosis to greater than 80% stenosis extending through the malleolus and plantar artery bifurcation. The left posterior tibial artery is patent extending to the distal leg. There is severe microvascular disease extending tothe distal left foot and distal tibial arteries are not well visualized on retrograde angiography. Complications: noneEstimated blood loss in ml's: noneSpecimens removed/altered: noneImplant(s): stents at 1317 RPT #:[id number] OF REPORTOPOperative [id number]:08:00G.[id number] Available for patient [id number]:17:42 [facility] 2023-09-01 12:55:00 [id number] 6dWKps RUST/XBi2THSpam5rLQj9yKzCRRuz5D6969-98-01W56:55 :00 [facility] ([facility]ENTERBrief Op NoteREPORT#:[id number] REPORT STATUS: SignedREPORT INITIALIZATION DATE:09/01/23 TIME: 1255 PATIENT: JOSEPH ROWLEY UNIT #: [id number]#: [id number] ROOM/BED:: 57 AGE: 68 SEX: F ATTEND: Luis Carlos Huggins MDADM AUTHOR: Luis Carlos Huggins MDREPT SERVICE DT/TIME: 09/01/23 1255* ALL edits or amendments must be made on the electronic/computer document * Op/Inv Proc Note - BriefORM Surgeries: Surgery Date and Time: 09/01/2023 0730 Proposed Primary Procedure: RLE ARTERIOGRAM, POSSIBLE ANGIOPLASTY, Pre-procedure diagnosis:1. Bilateral extremity critical limb ischemia with nonhealing wounds2. Aortic atherosclerosis with bilateral iliac artery occlusions3. Atherosclerosis of bilateral lower extremities with bilateral toe gangrene and right heel gangrene and occlusion of bilateral superficial femoral arteriesPost-procedure diagnosis: same as pre procedure dxProcedures performed:1. Percutaneous ultrasound-guided active access left common femoral artery [place] [address], percutaneous ultrasound-guided active accessright popliteal artery with images maintained for record 763 97 59, percutaneousalso guided active access right posterior tibial artery with images maintained for record 7693 7 592. Abdominal gram 714807. Bilateral lower extremity arteriogram 944402. Bilateral common iliac artery stents, right 7 mm x 59 mm VBX balloon expandable stent, left 8 mm x 59 mm VBX balloon expandable stent 73099 R, 35351-D-630. Bilateral external iliac artery stents, right 6 mm x 7.5 cm Viabahn and 6 mmx 5 cm Viabahn stent grafts, left 7 mm x 79 mm VBX balloon expandable stent 34561 R, 10830-C-935. Right superficial femoral artery to popliteal artery 5 mm x 15 cm Viabahn stent graft with 5 mm drug-coated balloon angioplasty of the entire vessel extending to the popliteal artery 581257. Right posterior tibial artery angioplasty, 2.5 mm balloon [id number] Surgeon:Dr. Luis Carlos HugginsAssistant(s): noneAnesthesia: general anesthesiaFindings:Aortogram demonstrates patent abdominal order with antegrade flow to the celiac trunk, splenic artery, common hepatic artery and gastroduodenal arteries. The superior mesenteric arteries. Antegrade flow. The inferior mesenteric artery is difficult to visualize but appears to be patent. A large meandering artery is noted however in the abdomen and large lumbar shunt noted. There is a aorticstenosis to approximately 30% below the renal arteries. There is bilateral common iliac stenosis with 80% right common iliac stenosis and left common iliacostial occlusion. Bilateral internal iliac arteries are patent. Bilateral external iliac arteries are occluded. There is reconstitution to bilateral common femoral arteries to profunda femoris. Bilateral superficial femorals areoccluded. There is reconstitution of bilateral popliteal arteries through profunda collaterals. Distal popliteal arteries are patent bilaterally. Bilateral anterior tibial arteries and tibioperoneal trunks and peroneal arteries are patent. The right distal posterior tibial artery has tapering stenosis to greater than 80% stenosis extending through the malleolus and plantar artery bifurcation. The left posterior tibial artery is patent extending to the distal leg. There is severe microvascular disease extending tothe distal left foot and distal tibial arteries are not well visualized on retrograde angiography. Complications: noneEstimated blood loss in ml's: noneSpecimens removed/altered: none at 1317 RPT #:[id number] OF REPORTOPOperative [id number]:55:00G.[id number] Available for patient duhtBUHFGIYKIFTTJO7065-41-82I70:17:42 [facility] 2023-07-26 11:32:00 [id number] BpUJNN p8MFTZNkJRzkdS6fSF3mPfP+AVHwyB6204-87-70X08:32 :00 [facility] ([facility]ENTERHospitalist Discharge SummaryREPORT#:[id number] REPORT STATUS: SignedDATE:07/26/23 TIME: 1132 PATIENT: JOSEPH ROWLEY UNIT #: [id number]#: [id number] [address] [birth year] AGE: 68 SEX: F ATTEND: Tanvir Prasad MDADM AUTHOR: Violetta Davis MD * ALL edits or amendments must be made on the electronic/computer document * General InformationDate of admission:Observation Start Date: Date of admission: 07/12/23 Discharge date: 07/26/23Admission diagnosis: Suspected urinary tract infectionSevere three-vessel CADSevere peripheral vascular diseaseDiabetes mellitusEnd-stage renal failure on hemodialysis Nonhealing bilateral heel ulcerationsHypertensionHyperlipidemiaCHF Mitral valve regurgitationDischarge diagnosis: Suspected urinary tract infectionSevere three-vessel CADSevere peripheral vascular diseaseDiabetes mellitusEnd-stage renal failure on hemodialysis Nonhealing bilateral heel ulcerationsHypertensionHyperlipidemiaCHF Mitral valve regurgitationHospital course: Suspected urinary tract infectionSevere three-vessel CADSevere peripheral vascular diseaseDiabetes mellitusEnd-stage renal failure on hemodialysis Nonhealing bilateral heel ulcerationsHypertensionHyperlipidemiaCHF Mitral valve regurgitation Plan and recommendations Patient admitted into medicineVital signs every 4PatientAntiplatelets and statin per cardiologySeen by vascular surgery" CT surgery. Nephrology for hemodialysis. Will do basic lab work include CBC BMP now. Patient is not having significant hypoxia at this timeDVT prophylaxisRestart home medicationsDiscussed management plan in detail with patient's family. 07/13/[address] surgery and vascular surgery plansHemodialysis was done yesterdayHemodialysis per nephrologyMonitor renal functionBlood sugar control with insulin pump. 07/14/2023 Fever spike last night blood cultures on empiric antibiotics for possible UTIAntibiotics changedFollow-up on culturesFollow-up on cardiothoracic surgery and oncology recommendations plan to have discussion tomorrowBlood sugars controlledLab work otherwise stableDVT prophylaxisHemodialysis per nephrology 07/15- take over care from another group -- review all lab and image -- she is seen in the stress test lab . no cp no sob -- urine culture --positive continue rocephin iv -- blood culture -- no grow -- stress test -- pending --continue HD as schedule 07/16 High revascularization risk, will be discussed on Tuesday in clinical conference, ejection fraction 28%, viable tissue except apical scar, continue with dialysis, severe peripheral artery disease with heel ulcers, mitral valve regurgitation. 07/17 conference on Tuesday regarding the decision to proceed with revascularization, depressed, wound care to heels, increase midodrine to 10 mg 3times daily in view of persistent hypotension. 07/18 hyponatremic with sodium of 128, on hemodialysis, blood pressure has improved on midodrine, revascularization decision in a.m., daughter is at bedside, wound care. 07/19- no cp no sob -- family are in the room -- conference decision -pending -- continue current management 07/20- she is weak -- no cp -- spoke to cardiology continue monitor in CV1 will present the case in tuesday conference continue medical treatment 07/21- she is seen in the chemical laboratory assistant --PCI /impella -- afternoon -- lab am 07/22- she was transferred to CCU --post procedure -- HB--5.8 -- 2 units blood transfusion --HD -- today -- she is hemodynamic stable -- may dc impella as CV surgeon -- continue monitor in CCU -- family in the room -- answer all question -- review all lab and notes -- case is discussed with nurse 07/23- rest on the bed -- she feel comfortable -- no cp no sob -- H H--9--post transfusion stable -- BP--on low side -- continue monitor in CCU -- review all lab and image 07/24- she is seen in the CCU -- no cp and sob -- PAD -- vascular surgeon consult -- may need intervention -- foot unheal wound -- wound care and wound care physician consult -- she is hemodynamic stable -- review lab and notes -- continue monitor in ccu 07/25 Continue HD. Vascular surgery to follow-up. Continue wound care. she is doing well . vascular surgeon recommend surgery 2 week later . she is stable to discharge home as cardiology . she will follow up with cardiology and vascular surgeon in 2 weeks Consultants: cardiology, cardiovascular surgery, critical/associate professor physician, nephrology Free Text DxA P NotesFree text DxA P notes:68-year-old female with a past medical history of type 1 diabetes from the age of 46 years old, end-stage renal disease, on dialysis since July 2022, hypertension who presented to her inventory management specialist for evaluation of bilateral nonhealing ulcerations of her bilateral heels for the past 3 months, and shortness of breath with exertion. Left heart catheterization showed significant for severe three-vessel coronary artery disease with severe bilateral occluded SFAs of the lower extremity. Issues as below. Suspected urinary tract infectionSevere three-vessel CADSevere peripheral vascular diseaseDiabetes mellitusEnd-stage renal failure on hemodialysis Nonhealing bilateral heel ulcerationsHypertensionHyperlipidemiaCHF Mitral valve regurgitation Plan and recommendations Patient admitted into medicineVital signs every 4PatientAntiplatelets and statin per cardiologySeen by vascular surgery" CT surgery. Nephrology for hemodialysis. Will do basic lab work include CBC BMP now. Patient is not having significant hypoxia at this timeDVT prophylaxisRestart home medicationsDiscussed management plan in detail with patient's family. 07/13/[address] surgery and vascular surgery plansHemodialysis was done yesterdayHemodialysis per nephrologyMonitor renal functionBlood sugar control with insulin pump. 07/14/2023 Fever spike last night blood cultures on empiric antibiotics for possible UTIAntibiotics changedFollow-up on culturesFollow-up on cardiothoracic surgery and oncology recommendations plan to have discussion tomorrowBlood sugars controlledLab work otherwise stableDVT prophylaxisHemodialysis per nephrology 07/15- take over care from another group -- review all lab and image -- she is seen in the stress test lab . no cp no sob -- urine culture --positive continue rocephin iv -- blood culture -- no grow -- stress test -- pending --continue HD as schedule 07/16 High revascularization risk, will be discussed on Tuesday in clinical conference, ejection fraction 28%, viable tissue except apical scar, continue with dialysis, severe peripheral artery disease with heel ulcers, mitral valve regurgitation. 07/17 conference on Tuesday regarding the decision to proceed with revascularization, depressed, wound care to heels, increase midodrine to 10 mg 3times daily in view of persistent hypotension. 07/18 hyponatremic with sodium of 128, on hemodialysis, blood pressure has improved on midodrine, revascularization decision in a.m., daughter is at bedside, wound care. 07/19- no cp no sob -- family are in the room -- conference decision -pending -- continue current management 07/20- she is weak -- no cp -- spoke to cardiology continue monitor in CV1 will present the case in tuesday conference continue medical treatment 07/21- she is seen in the chemical laboratory assistant --PCI /impella -- afternoon -- lab am 07/22- she was transferred to CCU --post procedure -- HB--5.8 -- 2 units blood transfusion --HD -- today -- she is hemodynamic stable -- may dc impella as CV surgeon -- continue monitor in CCU -- family in the room -- answer all question -- review all lab and notes -- case is discussed with nurse 07/23- rest on the bed -- she feel comfortable -- no cp no sob -- H H--9--post transfusion stable -- BP--on low side -- continue monitor in CCU -- review all lab and image 07/24- she is seen in the CCU -- no cp and sob -- PAD -- vascular surgeon consult -- may need intervention -- foot unheal wound -- wound care and wound care physician consult -- she is hemodynamic stable -- review lab and notes -- continue monitor in ccu 07/25 Continue HD. Vascular surgery to follow-up. Continue wound care. Med Rec Med RecDischarge meds:Stop taking the following medications:BUMETANIDE (BUMEX) 2 MG TAB 2 MILLIGRAM ORAL TWICE DAILY. MIDODRINE (PROAMATINE) 5 MG TAB 5 MILLIGRAM ORAL THREE TIMES A DAY. Continue taking these medications:FAMOTIDINE (PEPCID) 40 MG TAB 40 MILLIGRAM ORAL BEDTIME. [INSULIN PUMP] SUBCUTANEOUS TRAVOPROST (TRAVATAN-Z 0.004% OPHTH) 0.004 % OPHTH.SOLN 1 OPHTHALMIC BEDTIME. DORZOLAMIDE/TIMOLOL (COSOPT 2%-0.5% OPHTH) 22.3 MG-6.8 MG/ML OPHTH.SOLN 1 OPHTHALMIC TWICE DAILY AT 9AM AND 5PM. ATORVASTATIN (LIPITOR) 40 MG TAB 40 MILLIGRAM ORAL BEDTIME. Days = 30 Qty = 30 This prescription has been renewed ASPIRIN EC (ECOTRIN) 81 MG TAB.EC 81 MILLIGRAM ORAL DAILY. Days = 30 Qty = 30 This prescription has been renewed Start taking the following new medications:TICAGRELOR (BRILINTA) 90 MG TAB 90 MILLIGRAM ORAL EVERY 12 HOURS. Days = 30 Qty = 60 Refills = 3 METOPROLOL SUCC XL (TOPROL XL) 25 MG TAB.SR.24H 25 MILLIGRAM ORAL DAILY. Days = 30 Qty = 30 Refills = 3 MIDODRINE (PROAMATINE) 2.5 MG TAB 2.5 MILLIGRAM ORAL 0800,1200,1600 Qty = 90 No Refills SENNOSIDES/DOCUSATE SOD (TAMI-COLACE 8.6/50 MG) 8.6 MG-50 MG TAB 1 TABLET ORAL DAILY. Qty = 30 No Refills ObjectiveVS/I OLast Documented: Result Date Time Temp 36.6 07/26 0730 Pulse Ox 93 / 0500 B/P 135/63 07/26 0500 B/P Mean 90 07/26 0500 Pulse 74 12 0500 Resp 18 07/26 0500 O2 Delivery Room air 07/25 2000 O2 Flow Rate 2 07/23 0000 FiO2 36 07/21 2000 24 hour I O ending at 0700: 07/26 0700 07/25 1900 Intake Total Output Total 3400 Balance -3400 Output, 3400 Hemodialysis General appearance: alert, awake, oriented, no acute distressHead/Eyes: atraumatic, normal conjunctiva/sclera, normal eyelids/periorb.Neck: full range of motionCardiovascular: normal capillary refill, normal heart sounds, regular rate rhythmRespiratory: aerating well, clear to auscultation, symmetric expansion, no distressAbdomen: non-tender, normal bowel sounds, soft, no distentionExtremities: no edemaNeuro/CREDENTIALS SPECIALIST: alert, oriented X 3Ulcer: Type/cause: diabetic (right heel ulcer), arterial Location: foot, heel Laterality: bilateralPsychiatry: depressed ResultsFindings/Data:Laboratory Tests: 07/26 0255 Chemistry Sodium (134 - 147 mEq/L) 135 Potassium (3.4 - 5.0 mEq/L) 3.7 Chloride (100 - 108 mEq/L) 100 Carbon Dioxide (21 - 33 mEq/l) 30 Anion Gap (0 - 20) 9 BUN (7 - 25 mg/dL) 20 Creatinine (0.6 - 1.3 mg/dL) 2.3 H Glomerular Filtr Rate (80 - 90) 22.9 L Glucose (77 - 141 mg/dL) 140 Calcium (8.0 - 10.5 mg/dL) 8.1 Ionized Calcium Stefany (1.09 - 1.30 MMOL/L) 1.09 Phosphorus (2.5 - 4.9 MG/DL) 3.1 Magnesium (1.6 - 2.6 mg/dL) 2.08 Hematology WBC (4.5 - 11.0 x10 3/uL) 12.9 H RBC (3.54 - 5.02 x10 6/uL) 2.86 L Hgb (11.0 - 15.0 g/dL) 9.3 L Hct (33.0 - 45.0 %) 29.2 L MCV (81.0 - 99.0 fL) 102.1 H MCH (27.0 - 33.0 pg) 32.5 MCHC (33.0 - 37.0 g/dL) 31.8 L RDW (11.5 - 14.5 %) 25.4 H Plt Count (150 - 400 x10 3/uL) 217 MPV (7.0 - 9.0 fL) 12.0 H Neut % (Auto) (56.0 - 77.0 %) 76.4 Lymph % (Auto) (14.0 - 32.0 %) 8.6 L [place] % (Auto) (4.8 - 9.0 %) 13.6 H Eos % (Auto) (0.3 - 3.7 %) 0.9 Baso % (Auto) (0.0 - 2.0 %) 0.2 Neut # (Auto) (2.0 - 7.6 x10 3/uL) 9.86 H Lymph # (Auto) (1.0 - 3.8 x10 3/uL) 1.11 [place] # (Auto) (0.1 - 0.8 x10 3/uL) 1.76 H Eos # (Auto) (0.0 - 0.2 x10 3/uL) 0.12 Baso # (Auto) (0.0 - 0.2 x10 3/uL) 0.03 Abs Immat Gran (auto) (0.00 - 0.03 x10 3/uL) 0.04 H Add Manual Diff NO Immature Gran % (0.0 - 2.0 %) 0.3 Nucleated RBC % (0 - 0 %) 0.2 H Nucleated RBCs # (Man) (0.0 - 0.1 x10 3/uL) 0.03 Discharge Instructions PCPDischarge to: Home Health wPlan of CareAdditional Discharge Routines: PCP Follow-Up, Director Of Quality Follow-UpDiet: Diabetic, CardiacActivity: As Tolerated Follow-up AppointmentsPCP follow-up: PCP: Benito Nugent MD PCP follow up timeframe: In 1-2 weeks Special instructions:CALL TO SCHEDULE APPOINTMENTConsulting provider 1: Provider 1: Luis Carlos Huggins MD Specialty: Vascular Surgery Consult follow up timeframe: In 1-2 weeks Special instructions:CALL TO SCHEDULE APPOINTMENT at [address] [facility] #:[id number] OF REPORTDSDischarge [id number]:32:00G.[id number] VAvailable for patient [id number]:26:17 [facility] [place] 2023-07-26 10:45:00 [id number] [id number] [id number]:45 :00 [facility]Neph[facility] Progress NoteREPORT#:[id number] REPORT STATUS: SignedDATE:07/26/23 TIME: 1045 PATIENT: JOSEPH ROWLEY UNIT #: [id number]#: [id number] ROOM/BED: 3306-1DOB: [birth year] AGE: 68 SEX: F ATTEND: Tanvir Prasad MDADM AUTHOR: Winnie oNyola MD * ALL edits or amendments must be made on the electronic/computer document * SubjectiveChief complaint:follow up of ESRDComments:Doing well. Objective GeneralVS/I O:Vital Signs: Date Time Temp Pulse Resp B/P B/P Pulse O2 O2 Flow FiO2 Mean Ox Delivery Rate 07/26 0730 97.8 07/26 0500 74 18 135/63 90 93 07/26 0400 75 15 126/62 89 91 07/26 0300 73 16 139/60 87 100 07/26 0200 72 11 132/63 90 95 07/26 0100 72 23 126/61 88 96 07/26 0000 65 19 118/58 83 95 07/25 2300 77 22 131/81 101 95 07/25 2212 74 26 128/77 97 97 07/25 2100 70 21 120/56 81 93 07/25 2045 64 16 113/55 79 92 07/25 2030 68 23 125/62 88 95 07/25 2015 68 23 126/60 86 96 07/25 2000 98.1 Room air 07/25 2000 70 25 118/58 81 95 07/25 1945 69 20 110/57 78 96 07/25 1930 69 19 110/57 80 95 07/25 1915 67 15 111/58 82 95 07/25 1900 68 21 114/60 82 93 07/25 1800 64 16 113/56 81 94 07/25 1704 74 17 129/69 93 95 07/25 1600 77 19 139/65 93 97 07/25 1530 78 28 141/63 90 98 07/25 1501 73 31 126/59 85 96 07/25 1400 83 19 135/61 88 98 07/25 1300 79 27 138/70 97 98 / 1200 80 21 134/56 88 100 07/25 1100 79 18 135/75 91 99 24 hour I O ending at 0700: 07/26 0700 07/25 1900 Intake Total Output Total 3400 Balance -3400 Output, 3400 Hemodialysis PATIENT WEIGHT: Weight (lb): 156Weight (oz): 15.51Weight (kg): 71.200 MedicationsActive Meds + DC'd Last 24 HrsMidodrine (PROAMATINE) 2.5 MG 0800,1200,1600 PO Midodrine (PROAMATINE) 5 MG 0800,1200,1600 PO (DC) Metoprolol Succinate (TOPROL XL) 25 MG DAILY PO Collagenase (SANTYL 2GM TOPICAL) 1 APPLIC DAILY TOPICAL Ondansetron HCl (ZOFRAN) 4 MG Q6H PRN PRN IV Heparin Sodium (HEPARIN 5000 UNITS/ML) 5,000 UNIT Q8H SUBQ Glucagon (GLUCAGON) 1 MG ASDIR PRN IM Polyethylene Glycol (MIRALAX) 17 GM DAILY PO Bisacodyl (DULCOLAX) 10 MG DAILY PRN PRN RECTAL Ticagrelor (BRILINTA) 90 MG Q12HR PO Dextrose/Water (DEXTROSE 10% IN WATER) 125 ML ASDIR PRN IV (CKD) Dextrose/Water (DEXTROSE 10% IN WATER) 250 ML ASDIR PRN IV (CKD) Glucagon (GLUCAGON) 1 MG ASDIR PRN IM Senna/Docusate Sodium (SENOKOT S) 1 TAB BID 9A 5P PO Mupirocin (BACTROBAN 2% 22 GM OINTMENT) 1 APPLIC BID NASAL (DC) Fentanyl Citrate (SUBLIMAZE) 25 MCG Q2H PRN PRN IV Tramadol HCl (ULTRAM) 50 MG Q6H PRN PRN PO Atropine Sulfate (ATROPINE SULFATE 0.1MG/ML SYR) 0.5 MG ASDIR PRN IV Sodium Chloride (SODIUM CHLORIDE 0.9%) 500 ML ASDIR PRN IV Dorzolamide HCl (TRUSOPT 10 ML OPHTH SOLN) 1 DROP TID EACH EYE Midodrine (PROAMATINE) 7.5 MG 0800,1200,1600 PO (DC) Epoetin Tanner-epbx (RETACRIT) 10,000 UNIT TuThSa@2100 IV Loperamide HCl (IMODIUM CAPSULE) 2 MG QID PRN PRN PO Aspirin (ASPIRIN) 81 MG DAILY PO Acetaminophen (TYLENOL) 650 MG Q6H PRN PRN PO Atorvastatin Calcium (LIPITOR) 40 MG BEDTIME PO Albumin Human (ALBUMINAR-25%) 12.5 GM ASDIR PRN IV Heparin Sodium (Porcine) (HEPARIN SODIUM) 3,000 UNIT ASDIR PRN DIALYSIS Lidocaine HCl (LIDOCAINE HCL/PF) 0.5 ML ASDIR PRN I-DERMAL (CKD) Mannitol (Mannitol 20%) 12.5 GM ASDIR PRN IV Sodium Chloride (SODIUM CHLORIDE 0.9%) 2,000 ML ASDIR PRN IV Sodium Chloride (SODIUM CHLORIDE) 5 ML ASDIR PRN IV Sodium Chloride (SODIUM CHLORIDE) 10 ML ASDIR PRN IV Sodium Chloride (SODIUM CHLORIDE 0.9%) 250 ML ASDIR PRN IV Physical ExamGeneral appearance: alert, awake, orientedHead/eyes: atraumatic, normocephalic, PERRLAENT: moist mucous membranesNeck: no JVD, no lymphadenopathy, no masses or swellingCardiovascular: normal heart sounds, regular rate and rhythm, no murmur, no rubRespiratory: aerating well, clear to auscultation, normal breath sounds, no distressAbdomen: non-tender, normal bowel sounds, soft, no reboundGenitourinary: no bladder distention, no flank pain, no urinary catheterExtremities: no edema, no gangreneNeuro/CREDENTIALS SPECIALIST: alert, oriented X 3, CN II-XII intact, normal speechUlcer: Type/cause: diabetic (right heel ulcer), arterial Location: foot, heel Laterality: bilateral ResultsFindings/Data:Laboratory Tests 07/26 255 Chemistry Sodium (134 - 147 mEq/L) 135 Potassium (3.4 - 5.0 mEq/L) 3.7 Chloride (100 - 108 mEq/L) 100 Carbon Dioxide (21 - 33 mEq/l) 30 Anion Gap (0 - 20) 9 BUN (7 - 25 mg/dL) 20 Creatinine (0.6 - 1.3 mg/dL) 2.3 H Glomerular Filtr Rate (80 - 90) 22.9 L Glucose (77 - 141 mg/dL) 140 Calcium (8.0 - 10.5 mg/dL) 8.1 Ionized Calcium Stefany (1.09 - 1.30 MMOL/L) 1.09 Phosphorus (2.5 - 4.9 MG/DL) 3.1 Magnesium (1.6 - 2.6 mg/dL) 2.08 Laboratory Tests 07/26 255 Hematology WBC (4.5 - 11.0 x10 3/uL) 12.9 H RBC (3.54 - 5.02 x10 6/uL) 2.86 L Hgb (11.0 - 15.0 g/dL) 9.3 L Hct (33.0 - 45.0 %) 29.2 L MCV (81.0 - 99.0 fL) 102.1 H MCH (27.0 - 33.0 pg) 32.5 MCHC (33.0 - 37.0 g/dL) 31.8 L RDW (11.5 - 14.5 %) 25.4 H Plt Count (150 - 400 x10 3/uL) 217 MPV (7.0 - 9.0 fL) 12.0 H Neut % (Auto) (56.0 - 77.0 %) 76.4 Lymph % (Auto) (14.0 - 32.0 %) 8.6 L [place] % (Auto) (4.8 - 9.0 %) 13.6 H Eos % (Auto) (0.3 - 3.7 %) 0.9 Baso % (Auto) (0.0 - 2.0 %) 0.2 Neut # (Auto) (2.0 - 7.6 x10 3/uL) 9.86 H Lymph # (Auto) (1.0 - 3.8 x10 3/uL) 1.11 [place] # (Auto) (0.1 - 0.8 x10 3/uL) 1.76 H Eos # (Auto) (0.0 - 0.2 x10 3/uL) 0.12 Baso # (Auto) (0.0 - 0.2 x10 3/uL) 0.03 Abs Immat Gran (auto) (0.00 - 0.03 x10 3/uL) 0.04 H Add Manual Diff NO Immature Gran % (0.0 - 2.0 %) 0.3 Nucleated RBC % (0 - 0 %) 0.2 H Nucleated RBCs # (Man) (0.0 - 0.1 x10 3/uL) 0.03 Radiology data:Recent Impressions:ULTRASOUND - DUP VEIN UNI/LTD 07/25 5105 Report Impression - Status: SIGNED Entered: 07/25/2023 0229 IMPRESSION: 1. Superficial venous thrombosis in the right basilic vein.2. No evidence of deep venous thrombosis in the right upperextremity. The right subclavian vein is unable to be evaluated due tooverlying bandaging.Impression By: Lamar Jenkins M.D. Diagnosis, Assessment PlanFree Text A P:1. ESRD continue with dialysis Tuesday. 2. Hypotension on midodrine 3. Coronary artery disease status post PCI, 4. Diabetes type 1 per primary team 5. Anemia of CKD on MATT as hemoglobin less than 10, 10,000 unit 3 times a week 6. hyponatremia HD with UF as blood pressure tolerates reinforced p.o. fluid restriction 1.2 L/day.na 135 today Discussed with at bedside at 0813 RPT #:[id number] OF REPORTPRProgress [id number]:45:00G.[id number] ailable for patient [id number]:13:22 [facility] [place] 2023-07-26 09:26:00 [id number] [id number]//[id number]:26 :00 [facility])Cardiology Progress NoteREPORT#:[id number] REPORT STATUS: SignedDATE:07/26/23 TIME: 925 PATIENT: JOSEPH ROWLEY UNIT #: [id number]#: [id number] [address] [birth year] AGE: 68 SEX: F ATTEND: Tanvir Prasad AUTHOR: uYe Barragan * ALL edits or amendments must be made on the electronic/computer document * SubjectivePatient reports:No: complaints, abdominal pain, chest pain, confused, cough, dizziness, fatigue,fever, headache, nausea, palpitations, shortness of breath, swelling. Review of SystemsRespiratory:Denies: SOB. Cardiovascular:Denies: chest pain, edema, orthopnea, palpitations. Objective GeneralVS/I O:24 hour I O ending at 0700: 07/26 0700 07/25 1900 Intake Total Output Total 3400 Balance -3400 Output, 3400 HemodialysisVital Signs Date Temp Pulse Resp B/P B/P Mean Pulse Ox FiO2 07/25-07/26 36.4-36.7 64-83 11-31 110-147/55-81 78-101 91-100 PATIENT WEIGHT: Weight (lb): 156Weight (oz): 15.51Weight (kg): 71.200 Medications:Active Meds + DC'd Last 24 HrsMidodrine (PROAMATINE) 2.5 MG 0800,1200,1600 PO (UNV) Midodrine (PROAMATINE) 5 MG 0800,1200,1600 PO (DCr) Metoprolol Succinate (TOPROL XL) 25 MG DAILY PO Collagenase (SANTYL 2GM TOPICAL) 1 APPLIC DAILY TOPICAL Ondansetron HCl (ZOFRAN) 4 MG Q6H PRN PRN IV Heparin Sodium (HEPARIN 5000 UNITS/ML) 5,000 UNIT Q8H SUBQ Glucagon (GLUCAGON) 1 MG ASDIR PRN IM Polyethylene Glycol (MIRALAX) 17 GM DAILY PO Bisacodyl (DULCOLAX) 10 MG DAILY PRN PRN RECTAL Ticagrelor (BRILINTA) 90 MG Q12HR PO Dextrose/Water (DEXTROSE 10% IN WATER) 125 ML ASDIR PRN IV (CKD) Dextrose/Water (DEXTROSE 10% IN WATER) 250 ML ASDIR PRN IV (CKD) Glucagon (GLUCAGON) 1 MG ASDIR PRN IM Senna/Docusate Sodium (SENOKOT S) 1 TAB BID 9A 5P PO Mupirocin (BACTROBAN 2% 22 GM OINTMENT) 1 APPLIC BID NASAL (DC) Fentanyl Citrate (SUBLIMAZE) 25 MCG Q2H PRN PRN IV Tramadol HCl (ULTRAM) 50 MG Q6H PRN PRN PO Atropine Sulfate (ATROPINE SULFATE 0.1MG/ML SYR) 0.5 MG ASDIR PRN IV Sodium Chloride (SODIUM CHLORIDE 0.9%) 500 ML ASDIR PRN IV Dorzolamide HCl (TRUSOPT 10 ML OPHTH SOLN) 1 DROP TID EACH EYE Midodrine (PROAMATINE) 7.5 MG 0800,1200,1600 PO (DC) Epoetin Tanner-epbx (RETACRIT) 10,000 UNIT TuThSa@2100 IV Loperamide HCl (IMODIUM CAPSULE) 2 MG QID PRN PRN PO Aspirin (ASPIRIN) 81 MG DAILY PO Acetaminophen (TYLENOL) 650 MG Q6H PRN PRN PO Atorvastatin Calcium (LIPITOR) 40 MG BEDTIME PO Albumin Human (ALBUMINAR-25%) 12.5 GM ASDIR PRN IV Heparin Sodium (Porcine) (HEPARIN SODIUM) 3,000 UNIT ASDIR PRN DIALYSIS Lidocaine HCl (LIDOCAINE HCL/PF) 0.5 ML ASDIR PRN I-DERMAL (CKD) Mannitol (Mannitol 20%) 12.5 GM ASDIR PRN IV Sodium Chloride (SODIUM CHLORIDE 0.9%) 2,000 ML ASDIR PRN IV Sodium Chloride (SODIUM CHLORIDE) 5 ML ASDIR PRN IV Sodium Chloride (SODIUM CHLORIDE) 10 ML ASDIR PRN IV Sodium Chloride (SODIUM CHLORIDE 0.9%) 250 ML ASDIR PRN IV Physical ExamGeneral appearance: alert, awakeNeck: non-tender, no JVDCardiovascular: CV assessment: regular rate and rhythm Murmur assessment:heart murmurRespiratory: on oxygen, no distressAbdomen: soft, non-tender, normal bowel sounds, no distentionGenitourinary: no flank pain, no urinary catheterUpper extremity: UE assessment: edema (RUE)Lower extremity: LE assessment: abnormal pedal pulse, abnormal peripheral pulseMusculoskeletal: normal inspectionNeuro/CREDENTIALS SPECIALIST: alert, oriented X 3, normal speechSkin: right heel ulcerUlcer: Type/cause: diabetic (right heel ulcer), arterial Location: foot, heel Laterality: bilateralPsychiatry: normal affect, normal mood ResultsFindings/Data:Laboratory Tests 07/26 0255 Chemistry Sodium (134 - 147 mEq/L) 135 Potassium (3.4 - 5.0 mEq/L) 3.7 Chloride (100 - 108 mEq/L) 100 Carbon Dioxide (21 - 33 mEq/l) 30 Anion Gap (0 - 20) 9 BUN (7 - 25 mg/dL) 20 Creatinine (0.6 - 1.3 mg/dL) 2.3 H Glomerular Filtr Rate (80 - 90) 22.9 L Glucose (77 - 141 mg/dL) 140 Calcium (8.0 - 10.5 mg/dL) 8.1 Ionized Calcium Stefany (1.09 - 1.30 MMOL/L) 1.09 Phosphorus (2.5 - 4.9 MG/DL) 3.1 Magnesium (1.6 - 2.6 mg/dL) 2.08 Laboratory Tests 07/26 0255 Hematology WBC (4.5 - 11.0 x10 3/uL) 12.9 H RBC (3.54 - 5.02 x10 6/uL) 2.86 L Hgb (11.0 - 15.0 g/dL) 9.3 L Hct (33.0 - 45.0 %) 29.2 L MCV (81.0 - 99.0 fL) 102.1 H MCH (27.0 - 33.0 pg) 32.5 MCHC (33.0 - 37.0 g/dL) 31.8 L RDW (11.5 - 14.5 %) 25.4 H Plt Count (150 - 400 x10 3/uL) 217 MPV (7.0 - 9.0 fL) 12.0 H Neut % (Auto) (56.0 - 77.0 %) 76.4 Lymph % (Auto) (14.0 - 32.0 %) 8.6 L [place] % (Auto) (4.8 - 9.0 %) 13.6 H Eos % (Auto) (0.3 - 3.7 %) 0.9 Baso % (Auto) (0.0 - 2.0 %) 0.2 Neut # (Auto) (2.0 - 7.6 x10 3/uL) 9.86 H Lymph # (Auto) (1.0 - 3.8 x10 3/uL) 1.11 [place] # (Auto) (0.1 - 0.8 x10 3/uL) 1.76 H Eos # (Auto) (0.0 - 0.2 x10 3/uL) 0.12 Baso # (Auto) (0.0 - 0.2 x10 3/uL) 0.03 Abs Immat Gran (auto) (0.00 - 0.03 x10 3/uL) 0.04 H Add Manual Diff NO Immature Gran % (0.0 - 2.0 %) 0.3 Nucleated RBC % (0 - 0 %) 0.2 H Nucleated RBCs # (Man) (0.0 - 0.1 x10 3/uL) 0.03 Laboratory Tests 07/26 0255 Chemistry Magnesium (1.6 - 2.6 mg/dL) 2.08 Radiology data:Recent Impressions:ULTRASOUND - DUP VEIN UNI/LTD 07/25 1415 Report Impression - Status: SIGNED Entered: 07/25/2023 0466 IMPRESSION: 1. Superficial venous thrombosis in the right basilic vein.2. No evidence of deep venous thrombosis in the right upperextremity. The right subclavian vein is unable to be evaluated due tooverlying bandaging.Impression By: Lamar Jenkins M.D. Results: labs reviewed, vital signs reviewed, rhythm personally rev'dTelemetry Interpretation:sinus rhythm Diagnosis, Assessment PlanPlan discussed with: patient, spouse/partner, admitting physician, collaboratingMD, nurse Free Text DxA P NotesFree Text DxA P Notes:1. Multivessel CAD* S/p Impella protected PCI to Lcx, then to the mid LAD and then proximal LAD tothe left main using mini crush technique with excellent angiographic results.* continue Brilinta, ASA, statin, add metoprolol succinate 25 mg daily* Echo LVEF improved 40-44%, was <25%* unilateral swelling RUE - no DVT, it showed superficial thrombosis in the R basilic vein 2. Severe PAD with nonhealing foot ulcers* Vascular surgery planning for outpatient intervention 3. Mitral regurgitation* moderate to severe MR on TTE with contrast* JULIA reviewed 4. Severe ischemic cardiomyopathy * volume management per HD* initiate GDMT as BP permits. * continueToprol XL 25 mg daily* BP is stable, decrease midodrine to 2.5 mg TID* no need lifevest as LVEF is improved to 40% post PCI Patient is educated on importance of compliance with Brilinta and ASA. I have instructed her to call me immediately if she cannot get Brilinta from the pharmacy.Case management to arrange homehealthOkay to DC from cardiology.Outpatient follow-up with Dr. Grover next week. MDM by Dr. Doyle. at 1112 at 1904 [facility] #:[id number] OF REPORTPRProgress [id number]:26:00G.[id number] ailable for patient [id number]:12:56 [facility] 2023-07-25 16:12:00 [id number] eDiuTg [id number]:12 :00 [facility] Progress NoteREPORT#:[id number] REPORT STATUS: SignedDATE:07/25/23 TIME: 1612 PATIENT: JOSEPH ROWLEY UNIT #: [id number]#: [id number] [address] [birth year] AGE: 68 SEX: F ATTEND: Tanvir Prasad MDADM AUTHOR: Luis Carlos Huggins MD * ALL edits or amendments must be made on the electronic/computer document * SubjectiveChief complaint:shortness of breath, vicente, heel ulcersHPIPatient doing well s/p high risk PCI with chronic right heel wound ad lower leg pain. On midodrine. Review of SystemsAll systems rev neg: except as marked Objective GeneralVS/I O:Last Documented: Result Date Time Pulse Ox 100 07/25 940 B/P 147/67 07/25 940 O2 Delivery Room air 07/25 940 Temp 97.6 07/25 940 Pulse 80 07/25 940 Resp 18 07/25 940 B/P Mean 85 07/25 700 O2 Flow Rate 2 07/23 0000 FiO2 36 07/21 2000 24 hour I O ending at 0700: 07/25 0700 07/24 1900 Intake Total 480 Output Total 350 Balance 130 Intake, Oral 480 Number Voids 2 Output, Urine 350 PATIENT WEIGHT: Weight (lb): 156Weight (oz): 15.51Weight (kg): 71.200 Physical ExamGeneral appearance: alert, awakeNeck: non-tender, no JVDCardiovascular: regular rate and rhythmRespiratory: on oxygen, no distressAbdomen: soft, non-tender, no distentionGenitourinary: no flank pain, no urinary catheterUpper extremity: edema (RUE)Lower extremity: abnormal pedal pulse, abnormal peripheral pulseMusculoskeletal: normal inspectionNeuro/CREDENTIALS SPECIALIST: alert, oriented X 3, normal speechSkin: right heel ulcerUlcer: Type/cause: diabetic (right heel ulcer), arterial Location: foot, heel Laterality: bilateralPsychiatry: normal affect, normal mood Medications:Active Meds + DC'd Last 24 HrsMidodrine (PROAMATINE) 5 MG 0800,1200,1600 PO Metoprolol Succinate (TOPROL XL) 25 MG DAILY PO Collagenase (SANTYL 2GM TOPICAL) 1 APPLIC DAILY TOPICAL Ondansetron HCl (ZOFRAN) 4 MG Q6H PRN PRN IV Heparin Sodium (HEPARIN 5000 UNITS/ML) 5,000 UNIT Q8H SUBQ Glucagon (GLUCAGON) 1 MG ASDIR PRN IM Polyethylene Glycol (MIRALAX) 17 GM DAILY PO Bisacodyl (DULCOLAX) 10 MG DAILY PRN PRN RECTAL Ticagrelor (BRILINTA) 90 MG Q12HR PO Dextrose/Water (DEXTROSE 10% IN WATER) 125 ML ASDIR PRN IV (CKD) Dextrose/Water (DEXTROSE 10% IN WATER) 250 ML ASDIR PRN IV (CKD) Glucagon (GLUCAGON) 1 MG ASDIR PRN IM Senna/Docusate Sodium (SENOKOT S) 1 TAB BID 9A 5P PO Mupirocin (BACTROBAN 2% 22 GM OINTMENT) 1 APPLIC BID NASAL Fentanyl Citrate (SUBLIMAZE) 25 MCG Q2H PRN PRN IV Tramadol HCl (ULTRAM) 50 MG Q6H PRN PRN PO Atropine Sulfate (ATROPINE SULFATE 0.1MG/ML SYR) 0.5 MG ASDIR PRN IV Sodium Chloride (SODIUM CHLORIDE 0.9%) 500 ML ASDIR PRN IV Dorzolamide HCl (TRUSOPT 10 ML OPHTH SOLN) 1 DROP TID EACH EYE Midodrine (PROAMATINE) 7.5 MG 0800,1200,1600 PO (DC) Epoetin Tanner-epbx (RETACRIT) 10,000 UNIT TuThSa@2100 IV Loperamide HCl (IMODIUM CAPSULE) 2 MG QID PRN PRN PO Aspirin (ASPIRIN) 81 MG DAILY PO Acetaminophen (TYLENOL) 650 MG Q6H PRN PRN PO Atorvastatin Calcium (LIPITOR) 40 MG BEDTIME PO Albumin Human (ALBUMINAR-25%) 12.5 GM ASDIR PRN IV Heparin Sodium (Porcine) (HEPARIN SODIUM) 3,000 UNIT ASDIR PRN DIALYSIS Lidocaine HCl (LIDOCAINE HCL/PF) 0.5 ML ASDIR PRN I-DERMAL (CKD) Mannitol (Mannitol 20%) 12.5 GM ASDIR PRN IV Sodium Chloride (SODIUM CHLORIDE 0.9%) 2,000 ML ASDIR PRN IV Sodium Chloride (SODIUM CHLORIDE) 5 ML ASDIR PRN IV Sodium Chloride (SODIUM CHLORIDE) 10 ML ASDIR PRN IV Sodium Chloride (SODIUM CHLORIDE 0.9%) 250 ML ASDIR PRN IV Ulcer: Type/cause: diabetic (right heel ulcer), arterial Location: foot, heel Laterality: bilateral ResultsFindings/Data:Laboratory Tests 07/25 07/24 07/24 0817 1658 1625 Chemistry Sodium (134 - 147 mEq/L) 127 L Potassium (3.4 - 5.0 mEq/L) 5.2 H Chloride (100 - 108 mEq/L) 95 L Carbon Dioxide (21 - 33 mEq/l) 27 Anion Gap (0 - 20) 10 BUN (7 - 25 mg/dL) 32 H Creatinine (0.6 - 1.3 mg/dL) 3.2 H Glomerular Filtr Rate (80 - 90) 15.4 L Glucose (77 - 141 mg/dL) 127 POC Glucose (70 - 110 MG/DL) 84 70 Calcium (8.0 - 10.5 mg/dL) 8.6 Ionized Calcium Stefany (1.09 - 1.30 MMOL/L) 1.08 L Phosphorus (2.5 - 4.9 MG/DL) 5.3 H Magnesium (1.6 - 2.6 mg/dL) 2.25 Laboratory Tests 07/25 0308 Hematology WBC (4.5 - 11.0 x10 3/uL) 12.8 H RBC (3.54 - 5.02 x10 6/uL) 2.92 L Hgb (11.0 - 15.0 g/dL) 9.0 L Hct (33.0 - 45.0 %) 29.8 L MCV (81.0 - 99.0 fL) 102.1 H MCH (27.0 - 33.0 pg) 30.8 MCHC (33.0 - 37.0 g/dL) 30.2 L RDW (11.5 - 14.5 %) 24.6 H Plt Count (150 - 400 x10 3/uL) 204 MPV (7.0 - 9.0 fL) 12.1 H Neut % (Auto) (56.0 - 77.0 %) 76.3 Lymph % (Auto) (14.0 - 32.0 %) 9.9 L [place] % (Auto) (4.8 - 9.0 %) 12.7 H Eos % (Auto) (0.3 - 3.7 %) 0.2 L Baso % (Auto) (0.0 - 2.0 %) 0.1 Neut # (Auto) (2.0 - 7.6 x10 3/uL) 9.77 H Lymph # (Auto) (1.0 - 3.8 x10 3/uL) 1.27 [place] # (Auto) (0.1 - 0.8 x10 3/uL) 1.63 H Eos # (Auto) (0.0 - 0.2 x10 3/uL) 0.03 Baso # (Auto) (0.0 - 0.2 x10 3/uL) 0.01 Abs Immat Gran (auto) (0.00 - 0.03 x10 3/uL) 0.10 H Add Manual Diff NO Immature Gran % (0.0 - 2.0 %) 0.8 Nucleated RBC % (0 - 0 %) 0.8 H Nucleated RBCs # (Man) (0.0 - 0.1 x10 3/uL) 0.10 Radiology data:Recent Impressions:ULTRASOUND - DUP VEIN UNI/LTD 07/25 1415 Report Impression - Status: SIGNED Entered: 07/25/2023 7840 IMPRESSION: 1. Superficial venous thrombosis in the right basilic vein.2. No evidence of deep venous thrombosis in the right upperextremity. The right subclavian vein is unable to be evaluated due tooverlying bandaging.Impression By: Lamar - Marco Antonio Jenkins M.D. Diagnosis, Assessment PlanProblem List/A P: 1. PAD (peripheral artery disease) 2. ESRD (end stage renal disease) on dialysis 3. Coronary artery disease 4. Mitral regurgitation 5. HFrEF (heart failure with reduced ejection fraction) Free Text A P:Discussed options for revascualrization with the patient and cardiology team. Patient will require either aortobifemoral bypass or bilateral common femoral artery endarterectomies with possible retrograde iliac stents and possible staged right femoral revascualrization. Recommend wainting at least 2 weeks after high risk PCI and time to change antiplatelelts from birlinta to plavix. [facility] Consultants: cardiology, cardiovascular surgery, critical/associate professor physician, nephrology at 1623 RPT #:[id number] OF REPORTPRProgress [id number]:12:00G.[id number] ailable for patient [id number]:23:16 [facility] [place] 2023-07-25 10:52:00 [id number] TM15TU [id number]s5060-39-00F01:52 :00 [facility]oCardiology Progress NoteREPORT#:[id number] REPORT STATUS: SignedDATE:07/25/23 TIME: 1052 PATIENT: JOSEPH ROWLEY UNIT #: [id number]#: [id number] [address] [birth year] AGE: 68 SEX: F ATTEND: Tanvir Prasad AUTHOR: Yue Barragan * ALL edits or amendments must be made on the electronic/computer document * SubjectiveComments:doing well. C/o DORETHA swelling Review of SystemsRespiratory:Denies: SOB. Cardiovascular:Denies: chest pain, VICENTE (dyspnea on exertion), edema, orthopnea, palpitations, parox nocturnal dyspnea, other. Musculoskeletal: Extremity swelling: Reports: right upper. Objective GeneralVS/I O:24 hour I O ending at 0700: 07/25 0700 07/24 1900 Intake Total 480 Output Total 350 Balance 130 Intake, Oral 480 Number Voids 2 Output, Urine 350Vital Signs Date Temp Pulse Resp B/P B/P Mean Pulse Ox FiO2 07/24-07/25 36.4-37.1 65-80 14-30 118-148/59-70 82-101 96-100 PATIENT WEIGHT: Weight (lb): 156Weight (oz): 15.51Weight (kg): 71.200 Medications:Active Meds + DC'd Last 24 HrsMetoprolol Succinate (TOPROL XL) 25 MG DAILY PO Collagenase (SANTYL 2GM TOPICAL) 1 APPLIC DAILY TOPICAL Ondansetron HCl (ZOFRAN) 4 MG Q6H PRN PRN IV Heparin Sodium (HEPARIN 5000 UNITS/ML) 5,000 UNIT Q8H SUBQ Glucagon (GLUCAGON) 1 MG ASDIR PRN IM Polyethylene Glycol (MIRALAX) 17 GM DAILY PO Bisacodyl (DULCOLAX) 10 MG DAILY PRN PRN RECTAL Ticagrelor (BRILINTA) 90 MG Q12HR PO Dextrose/Water (DEXTROSE 10% IN WATER) 125 ML ASDIR PRN IV (CKD) Dextrose/Water (DEXTROSE 10% IN WATER) 250 ML ASDIR PRN IV (CKD) Glucagon (GLUCAGON) 1 MG ASDIR PRN IM Senna/Docusate Sodium (SENOKOT S) 1 TAB BID 9A 5P PO Mupirocin (BACTROBAN 2% 22 GM OINTMENT) 1 APPLIC BID NASAL Fentanyl Citrate (SUBLIMAZE) 25 MCG Q2H PRN PRN IV Tramadol HCl (ULTRAM) 50 MG Q6H PRN PRN PO Atropine Sulfate (ATROPINE SULFATE 0.1MG/ML SYR) 0.5 MG ASDIR PRN IV Sodium Chloride (SODIUM CHLORIDE 0.9%) 500 ML ASDIR PRN IV Dorzolamide HCl (TRUSOPT 10 ML OPHTH SOLN) 1 DROP TID EACH EYE Midodrine (PROAMATINE) 7.5 MG 0800,1200,1600 PO Epoetin Tanner-epbx (RETACRIT) 10,000 UNIT TuThSa@2100 IV Loperamide HCl (IMODIUM CAPSULE) 2 MG QID PRN PRN PO Aspirin (ASPIRIN) 81 MG DAILY PO Acetaminophen (TYLENOL) 650 MG Q6H PRN PRN PO Atorvastatin Calcium (LIPITOR) 40 MG BEDTIME PO Albumin Human (ALBUMINAR-25%) 12.5 GM ASDIR PRN IV Heparin Sodium (Porcine) (HEPARIN SODIUM) 3,000 UNIT ASDIR PRN DIALYSIS Lidocaine HCl (LIDOCAINE HCL/PF) 0.5 ML ASDIR PRN I-DERMAL (CKD) Mannitol (Mannitol 20%) 12.5 GM ASDIR PRN IV Sodium Chloride (SODIUM CHLORIDE 0.9%) 2,000 ML ASDIR PRN IV Sodium Chloride (SODIUM CHLORIDE) 5 ML ASDIR PRN IV Sodium Chloride (SODIUM CHLORIDE) 10 ML ASDIR PRN IV Sodium Chloride (SODIUM CHLORIDE 0.9%) 250 ML ASDIR PRN IV Physical ExamGeneral appearance: alert, awakeNeck: non-tender, no JVDCardiovascular: CV assessment: regular rate and rhythm Murmur assessment:heart murmurRespiratory: on oxygen, no distressAbdomen: soft, non-tender, normal bowel sounds, no distentionGenitourinary: no flank pain, no urinary catheterUpper extremity: UE assessment: edema (RUE)Lower extremity: LE assessment: abnormal pedal pulse, abnormal peripheral pulseMusculoskeletal: normal inspectionNeuro/CREDENTIALS SPECIALIST: alert, oriented X 3, normal speechSkin: right heel ulcerUlcer: Type/cause: diabetic (right heel ulcer), arterial Location: foot, heel Laterality: bilateralPsychiatry: normal affect, normal mood ResultsFindings/Data:Laboratory Tests 07/25 07/24 07/24 0817 1658 1625 Chemistry Sodium (134 - 147 mEq/L) 127 L Potassium (3.4 - 5.0 mEq/L) 5.2 H Chloride (100 - 108 mEq/L) 95 L Carbon Dioxide (21 - 33 mEq/l) 27 Anion Gap (0 - 20) 10 BUN (7 - 25 mg/dL) 32 H Creatinine (0.6 - 1.3 mg/dL) 3.2 H Glomerular Filtr Rate (80 - 90) 15.4 L Glucose (77 - 141 mg/dL) 127 POC Glucose (70 - 110 MG/DL) 84 70 Calcium (8.0 - 10.5 mg/dL) 8.6 Ionized Calcium Stefany (1.09 - 1.30 MMOL/L) 1.08 L Phosphorus (2.5 - 4.9 MG/DL) 5.3 H Magnesium (1.6 - 2.6 mg/dL) 2.25 Laboratory Tests 07/25 0308 Hematology WBC (4.5 - 11.0 x10 3/uL) 12.8 H RBC (3.54 - 5.02 x10 6/uL) 2.92 L Hgb (11.0 - 15.0 g/dL) 9.0 L Hct (33.0 - 45.0 %) 29.8 L MCV (81.0 - 99.0 fL) 102.1 H MCH (27.0 - 33.0 pg) 30.8 MCHC (33.0 - 37.0 g/dL) 30.2 L RDW (11.5 - 14.5 %) 24.6 H Plt Count (150 - 400 x10 3/uL) 204 MPV (7.0 - 9.0 fL) 12.1 H Neut % (Auto) (56.0 - 77.0 %) 76.3 Lymph % (Auto) (14.0 - 32.0 %) 9.9 L [place] % (Auto) (4.8 - 9.0 %) 12.7 H Eos % (Auto) (0.3 - 3.7 %) 0.2 L Baso % (Auto) (0.0 - 2.0 %) 0.1 Neut # (Auto) (2.0 - 7.6 x10 3/uL) 9.77 H Lymph # (Auto) (1.0 - 3.8 x10 3/uL) 1.27 [place] # (Auto) (0.1 - 0.8 x10 3/uL) 1.63 H Eos # (Auto) (0.0 - 0.2 x10 3/uL) 0.03 Baso # (Auto) (0.0 - 0.2 x10 3/uL) 0.01 Abs Immat Gran (auto) (0.00 - 0.03 x10 3/uL) 0.10 H Add Manual Diff NO Immature Gran % (0.0 - 2.0 %) 0.8 Nucleated RBC % (0 - 0 %) 0.8 H Nucleated RBCs # (Man) (0.0 - 0.1 x10 3/uL) 0.10 Laboratory Tests 07/25 0817 Chemistry Magnesium (1.6 - 2.6 mg/dL) 2.25 Results: labs reviewed, vital signs reviewed, rhythm personally rev'dTelemetry Interpretation:sinus rhythm Diagnosis, Assessment PlanPlan discussed with: patient, collaborating MD, nurse Free Text DxA P NotesFree Text DxA P Notes:1. Multivessel CAD* S/p Impella protected PCI to Lcx, then to the mid LAD and then proximal LAD tothe left main using mini crush technique with excellent angiographic results.* continue Brilinta, ASA, statin, add metoprolol succinate 25 mg daily* Echo LVEF improved 40-44%, was <25%* unilateral swelling RUE - will get venous doppler to r/o DVT 2. Severe PAD with nonhealing foot ulcers* Vascular surgery recommendation noted* VAscular surgery can proceed with LE intervention 3. Mitral regurgitation* moderate to severe MR on TTE with contrast* JULIA reviewed 4. Severe ischemic cardiomyopathy * volume management per HD* initiate GDMT as BP permits. add Toprol XL 25 mg daily* Decrease midodrine to 5 mg TID* no need lifevest as LVEF is improved to40% post PCI Doing wellMobilize OOB, PT/OTokay to transfer out of CCU to [address] Doyle. at 1323 at 1723 RPT #:[id number] OF REPORTPRProgress [id number]:52:00G.[id number] ailable for patient [id number]:27:12 [facility] [place] 2023-07-25 10:15:00 [id number] PO6Gjw q2/wy7dDMCvUJ8Gc70zZygxV5LYCQ14737-11-12X54:15 :00 [facility]oHospital[facility] Progress NoteREPORT#:[id number] REPORT STATUS: SignedDATE:07/25/23 TIME: 1015 PATIENT: JOSEPH ROWLEY UNIT #: [id number]#: [id number] ROOM/BED: 3306-1DOB: [birth year] AGE: 68 SEX: F ATTEND: Tanvir Prasad [facility] AUTHOR: Rosy Lou APRN * ALL edits or amendments must be made on the electronic/computer document * SubjectiveChief complaint:Doing ok, nausea/vomiting yesterday, improved today post PCI and impellaHPI:Patient had a fever spike yesterday was started on empiric antibiotics with UA abnormal system of UTI she is less confused and more alert per patient/family atbedside Review of SystemsConstitutional:Denies: chills, fever. Skin:Denies: itching, rash. Respiratory:Denies: SOB, wheezing. Cardiovascular:Denies: chest pain, palpitations. GI:Reports: nausea, vomiting. Endocrine:Reports: other (hypoglycemia). All systems rev neg: except as noted Objective GeneralVS/I O:Vital Signs: Date Time Temp Pulse Resp B/P B/P Pulse O2 O2 Flow FiO2 Mean Ox Delivery Rate 07/25 0800 37.1 07/25 0700 69 18 122/59 85 97 07/25 0600 74 23 130/63 90 100 07/25 0500 72 23 121/63 87 98 07/25 0400 36.7 Room air 07/25 0400 70 23 127/62 89 99 07/25 0300 66 14 123/59 82 97 07/25 0200 67 18 122/63 88 99 / 0100 67 15 130/60 85 97 / 0000 36.6 Room air 07/25 0000 67 20 118/59 85 96 09/10 2300 68 30 133/61 87 99 09/10 2236 71 24 119/61 85 98 09/10 2101 71 15 130/63 91 99 /10 2000 36.4 Room air 07/24 2000 68 26 148/70 101 100 09/10 1900 68 22 134/67 94 100 09/10 1600 36.6 09/10 1600 66 15 139/65 94 100 09/10 1500 65 15 139/65 92 99 09/10 1400 67 21 124/65 89 100 /10 1354 68 22 132/66 92 100 /10 1202 66 11 125/60 87 100 /10 1200 36.6 10 1100 65 25 129/82 102 100 24 hour I O ending at 0700: 07/25 0700 07/24 1900 Intake Total 480 Output Total 350 Balance 130 Intake, Oral 480 Number Voids 2 Output, Urine 350 PATIENT WEIGHT: Weight (lb): 156Weight (oz): 15.51Weight (kg): 71.200 Medications:Active Meds + DC'd Last 24 HrsCollagenase (SANTYL 2GM TOPICAL) 1 APPLIC DAILY TOPICAL Ondansetron HCl (ZOFRAN) 4 MG Q6H PRN PRN IV Heparin Sodium (HEPARIN 5000 UNITS/ML) 5,000 UNIT Q8H SUBQ Glucagon (GLUCAGON) 1 MG ASDIR PRN IM Polyethylene Glycol (MIRALAX) 17 GM DAILY PO Bisacodyl (DULCOLAX) 10 MG DAILY PRN PRN RECTAL Ticagrelor (BRILINTA) 90 MG Q12HR PO Dextrose/Water (DEXTROSE 10% IN WATER) 125 ML ASDIR PRN IV (CKD) Dextrose/Water (DEXTROSE 10% IN WATER) 250 ML ASDIR PRN IV (CKD) Glucagon (GLUCAGON) 1 MG ASDIR PRN IM Senna/Docusate Sodium (SENOKOT S) 1 TAB BID 9A 5P PO Mupirocin (BACTROBAN 2% 22 GM OINTMENT) 1 APPLIC BID NASAL Fentanyl Citrate (SUBLIMAZE) 25 MCG Q2H PRN PRN IV Tramadol HCl (ULTRAM) 50 MG Q6H PRN PRN PO Atropine Sulfate (ATROPINE SULFATE 0.1MG/ML SYR) 0.5 MG ASDIR PRN IV Sodium Chloride (SODIUM CHLORIDE 0.9%) 500 ML ASDIR PRN IV Dorzolamide HCl (TRUSOPT 10 ML OPHTH SOLN) 1 DROP TID EACH EYE Midodrine (PROAMATINE) 7.5 MG 0800,1200,1600 PO Epoetin Tanner-epbx (RETACRIT) 10,000 UNIT TuThSa@2100 IV Loperamide HCl (IMODIUM CAPSULE) 2 MG QID PRN PRN PO Aspirin (ASPIRIN) 81 MG DAILY PO Acetaminophen (TYLENOL) 650 MG Q6H PRN PRN PO Atorvastatin Calcium (LIPITOR) 40 MG BEDTIME PO Albumin Human (ALBUMINAR-25%) 12.5 GM ASDIR PRN IV Heparin Sodium (Porcine) (HEPARIN SODIUM) 3,000 UNIT ASDIR PRN DIALYSIS Lidocaine HCl (LIDOCAINE HCL/PF) 0.5 ML ASDIR PRN I-DERMAL (CKD) Mannitol (Mannitol 20%) 12.5 GM ASDIR PRN IV Sodium Chloride (SODIUM CHLORIDE 0.9%) 2,000 ML ASDIR PRN IV Sodium Chloride (SODIUM CHLORIDE) 5 ML ASDIR PRN IV Sodium Chloride (SODIUM CHLORIDE) 10 ML ASDIR PRN IV Sodium Chloride (SODIUM CHLORIDE 0.9%) 250 ML ASDIR PRN IV Physical ExamGeneral appearance: alert, awake, oriented, no acute distress, mental status normal, no respiratory distressHead/Eyes: atraumatic, normal conjunctiva/sclera, normal eyelids/periorb.Neck: full range of motionCardiovascular: normal capillary refill, normal heart sounds, regular rate rhythmRespiratory: aerating well, clear to auscultation, symmetric expansion, no distressAbdomen: non-tender, normal bowel sounds, soft, no distentionExtremities: no edemaNeuro/CREDENTIALS SPECIALIST: alert, oriented X 3Ulcer: Type/cause: diabetic (right heel ulcer), arterial Location: foot, heel Laterality: bilateralPsychiatry: depressed ResultsFindings/Data:Laboratory Tests 07/25 07/24 07/24 0817 1658 1625 Chemistry Sodium (134 - 147 mEq/L) 127 L Potassium (3.4 - 5.0 mEq/L) 5.2 H Chloride (100 - 108 mEq/L) 95 L Carbon Dioxide (21 - 33 mEq/l) 27 Anion Gap (0 - 20) 10 BUN (7 - 25 mg/dL) 32 H Creatinine (0.6 - 1.3 mg/dL) 3.2 H Glomerular Filtr Rate (80 - 90) 15.4 L Glucose (77 - 141 mg/dL) 127 POC Glucose (70 - 110 MG/DL) 84 70 Calcium (8.0 - 10.5 mg/dL) 8.6 Ionized Calcium Stefany (1.09 - 1.30 MMOL/L) 1.08 L Phosphorus (2.5 - 4.9 MG/DL) 5.3 H Magnesium (1.6 - 2.6 mg/dL) 2.25 Laboratory Tests 07/25 0308 Hematology WBC (4.5 - 11.0 x10 3/uL) 12.8 H RBC (3.54 - 5.02 x10 6/uL) 2.92 L Hgb (11.0 - 15.0 g/dL) 9.0 L Hct (33.0 - 45.0 %) 29.8 L MCV (81.0 - 99.0 fL) 102.1 H MCH (27.0 - 33.0 pg) 30.8 MCHC (33.0 - 37.0 g/dL) 30.2 L RDW (11.5 - 14.5 %) 24.6 H Plt Count (150 - 400 x10 3/uL) 204 MPV (7.0 - 9.0 fL) 12.1 H Neut % (Auto) (56.0 - 77.0 %) 76.3 Lymph % (Auto) (14.0 - 32.0 %) 9.9 L [place] % (Auto) (4.8 - 9.0 %) 12.7 H Eos % (Auto) (0.3 - 3.7 %) 0.2 L Baso % (Auto) (0.0 - 2.0 %) 0.1 Neut # (Auto) (2.0 - 7.6 x10 3/uL) 9.77 H Lymph # (Auto) (1.0 - 3.8 x10 3/uL) 1.27 [place] # (Auto) (0.1 - 0.8 x10 3/uL) 1.63 H Eos # (Auto) (0.0 - 0.2 x10 3/uL) 0.03 Baso # (Auto) (0.0 - 0.2 x10 3/uL) 0.01 Abs Immat Gran (auto) (0.00 - 0.03 x10 3/uL) 0.10 H Add Manual Diff NO Immature Gran % (0.0 - 2.0 %) 0.8 Nucleated RBC % (0 - 0 %) 0.8 H Nucleated RBCs # (Man) (0.0 - 0.1 x10 3/uL) 0.10 Diagnosis, Assessment PlanConsultants: cardiology, cardiovascular surgery, critical/associate professor physician, nephrology Free Text DxA P NotesFree text DxA P notes:68-year-old female with a past medical history of type 1 diabetes from the age of 46 years old, end-stage renal disease, on dialysis since July 2022, hypertension who presented to her inventory management specialist for evaluation of bilateral nonhealing ulcerations of her bilateral heels for the past 3 months, and shortness of breath with exertion. Left heart catheterization showed significant for severe three-vessel coronary artery disease with severe bilateral occluded SFAs of the lower extremity. Issues as below. Suspected urinary tract infectionSevere three-vessel CADSevere peripheral vascular diseaseDiabetes mellitusEnd-stage renal failure on hemodialysis Nonhealing bilateral heel ulcerationsHypertensionHyperlipidemiaCHF Mitral valve regurgitation Plan and recommendations Patient admitted into medicineVital signs every 4PatientAntiplatelets and statin per cardiologySeen by vascular surgery" CT surgery. Nephrology for hemodialysis. Will do basic lab work include CBC BMP now. Patient is not having significant hypoxia at this timeDVT prophylaxisRestart home medicationsDiscussed management plan in detail with patient's family. 07/13/[address] surgery and vascular surgery plansHemodialysis was done yesterdayHemodialysis per nephrologyMonitor renal functionBlood sugar control with insulin pump. 07/14/2023 Fever spike last night blood cultures on empiric antibiotics for possible UTIAntibiotics changedFollow-up on culturesFollow-up on cardiothoracic surgery and oncology recommendations plan to have discussion tomorrowBlood sugars controlledLab work otherwise stableDVT prophylaxisHemodialysis per nephrology 07/15- take over care from another group -- review all lab and image -- she is seen in the stress test lab . no cp no sob -- urine culture --positive continue rocephin iv -- blood culture -- no grow -- stress test -- pending --continue HD as schedule 07/16 High revascularization risk, will be discussed on Tuesday in clinical conference, ejection fraction 28%, viable tissue except apical scar, continue with dialysis, severe peripheral artery disease with heel ulcers, mitral valve regurgitation. 07/17 conference on Tuesday regarding the decision to proceed with revascularization, depressed, wound care to heels, increase midodrine to 10 mg 3times daily in view of persistent hypotension. 07/18 hyponatremic with sodium of 128, on hemodialysis, blood pressure has improved on midodrine, revascularization decision in a.m., daughter is at bedside, wound care. 07/19- no cp no sob -- family are in the room -- conference decision -pending -- continue current management 07/20- she is weak -- no cp -- spoke to cardiology continue monitor in CV1 will present the case in tuesday conference continue medical treatment 07/21- she is seen in the chemical laboratory assistant --PCI /impella -- afternoon -- lab am 07/22- she was transferred to CCU --post procedure -- HB--5.8 -- 2 units blood transfusion --HD -- today -- she is hemodynamic stable -- may dc impella as CV surgeon -- continue monitor in CCU -- family in the room -- answer all question -- review all lab and notes -- case is discussed with nurse 07/23- rest on the bed -- she feel comfortable -- no cp no sob -- H H--9--post transfusion stable -- BP--on low side -- continue monitor in CCU -- review all lab and image 07/24- she is seen in the CCU -- no cp and sob -- PAD -- vascular surgeon consult -- may need intervention -- foot unheal wound -- wound care and wound care physician consult -- she is hemodynamic stable -- review lab and notes -- continue monitor in ccu 07/25 Continue HD. Vascular surgery to follow-up. Continue wound care. at 1038 at 1247 RPT #:[id number] OF REPORTPRProgress [id number] ailable for patient [id number] [facility] [place] 2023-07-25 10:14:00 [id number] hgKjYT 8SIOkoAnMCjZVXp1cgNP2kMSPZNv/[id number]:14 :00 [facility] ([facility]Nephrology Progress NoteREPORT#:[id number] REPORT STATUS: SignedDATE:07/25/23 TIME: 1014 PATIENT: JOSEPH ROWLEY UNIT #: [id number]#: [id number] ROOM/BED: [id number]: [birth year] AGE: 68 SEX: F ATTEND: Tanvir Prasad MDADM AUTHOR: Winnie Noyola MD * ALL edits or amendments must be made on the electronic/computer document * SubjectiveChief complaint:follow up of ESRDComments:On dialysis, tolerating it well Objective GeneralVS/I O:Vital Signs: Date Time Temp Pulse Resp B/P B/P Pulse O2 O2 Flow FiO2 Mean Ox Delivery Rate 07/25 0800 98.8 07/25 0700 69 18 122/59 85 97 07/25 0600 74 23 130/63 90 100 07/25 0500 72 23 121/63 87 98 07/25 0400 98.0 Room air 07/25 0400 70 23 127/62 89 99 / 0300 66 14 123/59 82 97 07/25 0200 67 18 122/63 88 99 / 0100 67 15 130/60 85 97 09/ 0000 97.8 Room air 07/25 0000 67 20 118/59 85 96 09/10 2300 68 30 133/61 87 99 09/10 2236 71 24 119/61 85 98 /10 2101 71 15 130/63 91 99 /10 2000 97.6 Room air 07/24 2000 68 26 148/70 101 100 09/10 1900 68 22 134/67 94 100 09/10 1600 97.8 09/10 1600 66 15 139/65 94 100 09/10 1500 65 15 139/65 92 99 09/10 1400 67 21 124/65 89 100 09/10 1354 68 22 132/66 92 100 09/10 1202 66 11 125/60 87 100 09/10 1200 97.8 09/10 1100 65 25 129/82 102 100 24 hour I O ending at 0700: 07/25 0700 07/24 1900 Intake Total 480 Output Total 350 Balance 130 Intake, Oral 480 Number Voids 2 Output, Urine 350 PATIENT WEIGHT: Weight (lb): 156Weight (oz): 15.51Weight (kg): 71.200 MedicationsActive Meds + DC'd Last 24 HrsCollagenase (SANTYL 2GM TOPICAL) 1 APPLIC DAILY TOPICAL Ondansetron HCl (ZOFRAN) 4 MG Q6H PRN PRN IV Heparin Sodium (HEPARIN 5000 UNITS/ML) 5,000 UNIT Q8H SUBQ Glucagon (GLUCAGON) 1 MG ASDIR PRN IM Polyethylene Glycol (MIRALAX) 17 GM DAILY PO Bisacodyl (DULCOLAX) 10 MG DAILY PRN PRN RECTAL Ticagrelor (BRILINTA) 90 MG Q12HR PO Dextrose/Water (DEXTROSE 10% IN WATER) 125 ML ASDIR PRN IV (CKD) Dextrose/Water (DEXTROSE 10% IN WATER) 250 ML ASDIR PRN IV (CKD) Glucagon (GLUCAGON) 1 MG ASDIR PRN IM Senna/Docusate Sodium (SENOKOT S) 1 TAB BID 9A 5P PO Mupirocin (BACTROBAN 2% 22 GM OINTMENT) 1 APPLIC BID NASAL Fentanyl Citrate (SUBLIMAZE) 25 MCG Q2H PRN PRN IV Tramadol HCl (ULTRAM) 50 MG Q6H PRN PRN PO Atropine Sulfate (ATROPINE SULFATE 0.1MG/ML SYR) 0.5 MG ASDIR PRN IV Sodium Chloride (SODIUM CHLORIDE 0.9%) 500 ML ASDIR PRN IV Dorzolamide HCl (TRUSOPT 10 ML OPHTH SOLN) 1 DROP TID EACH EYE Midodrine (PROAMATINE) 7.5 MG 0800,1200,1600 PO Epoetin Tanner-epbx (RETACRIT) 10,000 UNIT TuThSa@2100 IV Loperamide HCl (IMODIUM CAPSULE) 2 MG QID PRN PRN PO Aspirin (ASPIRIN) 81 MG DAILY PO Acetaminophen (TYLENOL) 650 MG Q6H PRN PRN PO Atorvastatin Calcium (LIPITOR) 40 MG BEDTIME PO Albumin Human (ALBUMINAR-25%) 12.5 GM ASDIR PRN IV Heparin Sodium (Porcine) (HEPARIN SODIUM) 3,000 UNIT ASDIR PRN DIALYSIS Lidocaine HCl (LIDOCAINE HCL/PF) 0.5 ML ASDIR PRN I-DERMAL (CKD) Mannitol (Mannitol 20%) 12.5 GM ASDIR PRN IV Sodium Chloride (SODIUM CHLORIDE 0.9%) 2,000 ML ASDIR PRN IV Sodium Chloride (SODIUM CHLORIDE) 5 ML ASDIR PRN IV Sodium Chloride (SODIUM CHLORIDE) 10 ML ASDIR PRN IV Sodium Chloride (SODIUM CHLORIDE 0.9%) 250 ML ASDIR PRN IV Physical ExamHead/eyes: atraumatic, normocephalic, PERRLAENT: moist mucous membranesNeck: no JVD, no lymphadenopathy, no masses or swellingCardiovascular: normal heart sounds, regular rate and rhythm, no murmur, no rubRespiratory: aerating well, clear to auscultation, normal breath sounds, no distressAbdomen: non-tender, normal bowel sounds, soft, no reboundGenitourinary: no bladder distention, no flank pain, no urinary catheterExtremities: pitting edema, no gangreneNeuro/CREDENTIALS SPECIALIST: alert, oriented X 3, CN II-XII intact, normal speechUlcer: Type/cause: diabetic (right heel ulcer), arterial Location: foot, heel Laterality: bilateral ResultsFindings/Data:Laboratory Tests 07/25 07/24 07/24 0817 1658 1625 Chemistry Sodium (134 - 147 mEq/L) 127 L Potassium (3.4 - 5.0 mEq/L) 5.2 H Chloride (100 - 108 mEq/L) 95 L Carbon Dioxide (21 - 33 mEq/l) 27 Anion Gap (0 - 20) 10 BUN (7 - 25 mg/dL) 32 H Creatinine (0.6 - 1.3 mg/dL) 3.2 H Glomerular Filtr Rate (80 - 90) 15.4 L Glucose (77 - 141 mg/dL) 127 POC Glucose (70 - 110 MG/DL) 84 70 Calcium (8.0 - 10.5 mg/dL) 8.6 Ionized Calcium Stefany (1.09 - 1.30 MMOL/L) 1.08 L Phosphorus (2.5 - 4.9 MG/DL) 5.3 H Magnesium (1.6 - 2.6 mg/dL) 2.25 Laboratory Tests 07/25 0308 Hematology WBC (4.5 - 11.0 x10 3/uL) 12.8 H RBC (3.54 - 5.02 x10 6/uL) 2.92 L Hgb (11.0 - 15.0 g/dL) 9.0 L Hct (33.0 - 45.0 %) 29.8 L MCV (81.0 - 99.0 fL) 102.1 H MCH (27.0 - 33.0 pg) 30.8 MCHC (33.0 - 37.0 g/dL) 30.2 L RDW (11.5 - 14.5 %) 24.6 H Plt Count (150 - 400 x10 3/uL) 204 MPV (7.0 - 9.0 fL) 12.1 H Neut % (Auto) (56.0 - 77.0 %) 76.3 Lymph % (Auto) (14.0 - 32.0 %) 9.9 L [place] % (Auto) (4.8 - 9.0 %) 12.7 H Eos % (Auto) (0.3 - 3.7 %) 0.2 L Baso % (Auto) (0.0 - 2.0 %) 0.1 Neut # (Auto) (2.0 - 7.6 x10 3/uL) 9.77 H Lymph # (Auto) (1.0 - 3.8 x10 3/uL) 1.27 [place] # (Auto) (0.1 - 0.8 x10 3/uL) 1.63 H Eos # (Auto) (0.0 - 0.2 x10 3/uL) 0.03 Baso # (Auto) (0.0 - 0.2 x10 3/uL) 0.01 Abs Immat Gran (auto) (0.00 - 0.03 x10 3/uL) 0.10 H Add Manual Diff NO Immature Gran % (0.0 - 2.0 %) 0.8 Nucleated RBC % (0 - 0 %) 0.8 H Nucleated RBCs # (Man) (0.0 - 0.1 x10 3/uL) 0.10 Diagnosis, Assessment PlanFree Text A P:1. ESRD continue with dialysis Tuesday. Currently on hemodialysis, tolerating it well with 3.5 L UF. 2. Hypotension on midodrine 3. Coronary artery disease status post PCI, 4. Diabetes type 1 per primary team 5. Anemia of CKD on MATT as hemoglobin less than 10, 10,000 unit 3 times a week 6. hyponatremia HD with UF as blood pressure tolerates reinforced p.o. fluid restriction 1.2 L/day. 7. Volume overload looks a lot better today. On room air Discussed with at bedside at 1631 RPT #:[id number] OF REPORTPRProgress [id number]:14:00G.[id number] ailable for patient iwonPLTOIFODKLTAWG1242-42-87Y45:31:28 [facility] 2023-07-24 19:29:00 [id number] 28FYoA kXAnxegFu5yacw7Uh2aismpY1qHxEp0554-63-65P38:29 :00 [facility] Progress NoteREPORT#:[id number] REPORT STATUS: SignedDATE:07/24/23 TIME: 1928 PATIENT: JOSEPH ROWLEY UNIT #: [id number]#: [id number] [address] [birth year] AGE: 68 SEX: F ATTEND: Tanvir Prasad MDADM AUTHOR: Tomasa Feng MD * ALL edits or amendments must be made on the electronic/computer document * SubjectiveChief complaint:follow up of ESRD Review of SystemsConstitutional:Reports: generalized weakness. All systems rev neg: except as marked Objective GeneralVS/I O:Vital Signs: Date Time Temp Pulse Resp B/P B/P Pulse O2 O2 Flow FiO2 Mean Ox Delivery Rate 07/24 1600 97.8 07/24 1600 66 15 139/65 94 100 09/10 1500 65 15 139/65 92 99 09/10 1400 67 21 124/65 89 100 09/10 1354 68 22 132/66 92 100 09/10 1202 66 11 125/60 87 100 09/10 1200 97.8 09/10 1100 65 25 129/82 102 100 09/10 1001 64 30 136/68 96 100 09/10 1000 64 25 100 09/10 0900 60 15 119/58 83 99 09/10 0800 97.8 /10 0800 65 17 133/63 90 100 09/10 0658 98.6 09/10 0600 66 23 139/64 92 97 07/24 0500 59 12 113/56 80 97 07/24 0400 98.3 Room air 07/24 0400 61 13 128/60 87 97 07/24 0300 59 13 131/64 92 99 07/24 0200 58 12 124/60 87 98 07/24 0000 98.5 Room air 07/24 0000 61 27 132/64 92 96 07/23 2300 60 14 117/57 82 96 07/23 2200 65 21 134/62 89 97 07/23 2100 65 28 135/64 92 99 07/23 2001 66 22 135/60 87 97 07/23 2000 98.4 Room air 24 hour I O ending at 0700: 07/24 0700 07/23 1900 Intake Total 480 300 Output Total Balance 480 300 Intake, Oral 480 300 Number 0 Bowel Movements Number Voids 1 Patient 71.2 kg Weight Weight Bed scale Measurement Method PATIENT WEIGHT: Weight (lb): 156Weight (oz): 15.51Weight (kg): 71.200 MedicationsActive Meds + DC'd Last 24 HrsCollagenase (SANTYL 2GM TOPICAL) 1 APPLIC DAILY TOPICAL Ondansetron HCl (ZOFRAN) 4 MG Q6H PRN PRN IV Heparin Sodium (HEPARIN 5000 UNITS/ML) 5,000 UNIT Q8H SUBQ Glucagon (GLUCAGON) 1 MG ASDIR PRN IM Polyethylene Glycol (MIRALAX) 17 GM DAILY PO Bisacodyl (DULCOLAX) 10 MG DAILY PRN PRN RECTAL Ticagrelor (BRILINTA) 90 MG Q12HR PO Dextrose/Water (DEXTROSE 10% IN WATER) 125 ML ASDIR PRN IV (CKD) Dextrose/Water (DEXTROSE 10% IN WATER) 250 ML ASDIR PRN IV (CKD) Glucagon (GLUCAGON) 1 MG ASDIR PRN IM Senna/Docusate Sodium (SENOKOT S) 1 TAB BID 9A 5P PO Mupirocin (BACTROBAN 2% 22 GM OINTMENT) 1 APPLIC BID NASAL Fentanyl Citrate (SUBLIMAZE) 25 MCG Q2H PRN PRN IV Tramadol HCl (ULTRAM) 50 MG Q6H PRN PRN PO Atropine Sulfate (ATROPINE SULFATE 0.1MG/ML SYR) 0.5 MG ASDIR PRN IV Sodium Chloride (SODIUM CHLORIDE 0.9%) 500 ML ASDIR PRN IV Dorzolamide HCl (TRUSOPT 10 ML OPHTH SOLN) 1 DROP TID EACH EYE Midodrine (PROAMATINE) 7.5 MG 0800,1200,1600 PO Epoetin Tanner-epbx (RETACRIT) 10,000 UNIT TuThSa@2100 IV Loperamide HCl (IMODIUM CAPSULE) 2 MG QID PRN PRN PO Aspirin (ASPIRIN) 81 MG DAILY PO Acetaminophen (TYLENOL) 650 MG Q6H PRN PRN PO Atorvastatin Calcium (LIPITOR) 40 MG BEDTIME PO Albumin Human (ALBUMINAR-25%) 12.5 GM ASDIR PRN IV Heparin Sodium (Porcine) (HEPARIN SODIUM) 3,000 UNIT ASDIR PRN DIALYSIS Lidocaine HCl (LIDOCAINE HCL/PF) 0.5 ML ASDIR PRN I-DERMAL (CKD) Mannitol (Mannitol 20%) 12.5 GM ASDIR PRN IV Sodium Chloride (SODIUM CHLORIDE 0.9%) 2,000 ML ASDIR PRN IV Sodium Chloride (SODIUM CHLORIDE) 5 ML ASDIR PRN IV Sodium Chloride (SODIUM CHLORIDE) 10 ML ASDIR PRN IV Sodium Chloride (SODIUM CHLORIDE 0.9%) 250 ML ASDIR PRN IV Physical ExamGeneral appearance: alert, awake, orientedHead/eyes: atraumatic, normocephalic, PERRLAENT: moist mucous membranesNeck: no JVD, no lymphadenopathy, no masses or swellingCardiovascular: normal heart sounds, regular rate and rhythm, no murmur, no rubRespiratory: aerating well, clear to auscultation, normal breath sounds, no distressAbdomen: non-tender, normal bowel sounds, soft, no reboundGenitourinary: no bladder distention, no flank pain, no urinary catheterExtremities: pitting edema, no gangreneNeuro/CREDENTIALS SPECIALIST: alert, oriented X 3, CN II-XII intact, normal speechUlcer: Type/cause: diabetic (right heel ulcer), arterial Location: foot, heel Laterality: bilateral ResultsFindings/Data:Laboratory Tests 07/24 07/24 07/24 9196 2015 8795 Chemistry Sodium (134 - 147 mEq/L) 130 L Potassium (3.4 - 5.0 mEq/L) 4.4 Chloride (100 - 108 mEq/L) 96 L Carbon Dioxide (21 - 33 mEq/l) 28 Anion Gap (0 - 20) 11 BUN (7 - 25 mg/dL) 23 Creatinine (0.6 - 1.3 mg/dL) 2.7 H Glomerular Filtr Rate (80 - 90) 18.9 L Glucose (77 - 141 mg/dL) 142 H POC Glucose (70 - 110 MG/DL) 84 70 Calcium (8.0 - 10.5 mg/dL) 8.6 Ionized Calcium Stefany (1.09 - 1.30 MMOL/L) 1.10 Phosphorus (2.5 - 4.9 MG/DL) 4.6 Magnesium (1.6 - 2.6 mg/dL) 2.16 Laboratory Tests 07/24 0527 Hematology WBC (4.5 - 11.0 x10 3/uL) 16.3 H RBC (3.54 - 5.02 x10 6/uL) 2.60 L Hgb (11.0 - 15.0 g/dL) 8.3 L Hct (33.0 - 45.0 %) 25.8 L MCV (81.0 - 99.0 fL) 99.2 H MCH (27.0 - 33.0 pg) 31.9 MCHC (33.0 - 37.0 g/dL) 32.2 L RDW (11.5 - 14.5 %) 24.0 H Plt Count (150 - 400 x10 3/uL) 194 MPV (7.0 - 9.0 fL) 12.4 H Neut % (Auto) (56.0 - 77.0 %) 84.7 H Lymph % (Auto) (14.0 - 32.0 %) 6.1 L [place] % (Auto) (4.8 - 9.0 %) 8.4 Eos % (Auto) (0.3 - 3.7 %) 0.0 L Baso % (Auto) (0.0 - 2.0 %) 0.1 Neut # (Auto) (2.0 - 7.6 x10 3/uL) 13.81 H Lymph # (Auto) (1.0 - 3.8 x10 3/uL) 1.00 [place] # (Auto) (0.1 - 0.8 x10 3/uL) 1.37 H Eos # (Auto) (0.0 - 0.2 x10 3/uL) 0.00 Baso # (Auto) (0.0 - 0.2 x10 3/uL) 0.01 Abs Immat Gran (auto) (0.00 - 0.03 x10 3/uL) 0.11 H Add Manual Diff NO Immature Gran % (0.0 - 2.0 %) 0.7 Nucleated RBC % (0 - 0 %) 0.9 H Nucleated RBCs # (Man) (0.0 - 0.1 x10 3/uL) 0.15 H Diagnosis, Assessment PlanFree Text A P:1. ESRD continue with dialysis Tuesday. 2. Hypotension on midodrine 3. Coronary artery disease status post PCI, impella dc 4. Diabetes type 1 per primary team 5. Anemia of CKD on MATT as hemoglobin less than 10, 10,000 unit 3 times a week 6. hyponatremia Repeat lab in the morning. P.o. fluid restriction 1.2 L/day. 7. Volume overload reassess in a.m. for ultrafiltration Discussed with brother at bedside Consultants: cardiology, cardiovascular surgery, critical/associate professor physician, nephrology at 1930 RPT #:[id number] OF REPORTPRProgress [id number]:29:00G.[id number] ailable for patient ydiyLKHIESACKOTBJV7619-48-73S34:30:56 [facility] [place] 2023-07-24 12:10:00 [id number] Parminder+ M8FLtOqtjUqaUukkeyG5wXHfiYs3PA1250-82-63U57:10 :00 [facility]oHospital[facility] Progress NoteREPORT#:[id number] REPORT STATUS: SignedDATE:07/24/23 TIME: 1210 PATIENT: JOSEPH ROWLEY UNIT #: [id number]#: [id number] [address] [birth year] AGE: 68 SEX: F ATTEND: Tanvir Prasad AUTHOR: Violetta Davis MD * ALL edits or amendments must be made on the electronic/computer document * SubjectiveChief complaint:rest on the bed . no complaint post PCI and impellaHPI:Patient had a fever spike yesterday was started on empiric antibiotics with UA abnormal system of UTI she is less confused and more alert per patient/family atbedside Review of SystemsAll systems rev neg: except as noted Objective GeneralVS/I O:Vital Signs: Date Time Temp Pulse Resp B/P B/P Pulse O2 O2 Flow FiO2 Mean Ox Delivery Rate 07/24 0900 60 15 119/58 83 99 07/24 0800 65 17 133/63 90 100 09/10 0658 37.0 07/24 0600 66 23 139/64 92 97 / 0500 59 12 113/56 80 97 07/24 0400 36.8 Room air 07/24 0400 61 13 128/60 87 97 07/24 0300 59 13 131/64 92 99 07/24 0200 58 12 124/60 87 98 09/ 0000 36.9 Room air / 0000 61 27 132/64 92 96 07/23 2300 60 14 117/57 82 96 07/23 2200 65 21 134/62 89 97 / 2100 65 28 135/64 92 99 07/23 2001 66 22 135/60 87 97 07/23 2000 36.9 Room air 07/23 1900 68 28 120/58 84 97 / 1804 69 29 124/58 84 99 07/23 1700 65 23 97 07/23 1600 37.1 69 25 98 07/23 1501 67 17 143/64 92 98 07/23 1500 68 25 97 07/23 1400 67 21 96 07/23 1300 72 27 98 24 hour I O ending at 0700: 07/24 0700 07/23 1900 Intake Total 480 300 Output Total Balance 480 300 Intake, Oral 480 300 Number 0 Bowel Movements Number Voids 1 Patient 71.2 kg Weight Weight Bed scale Measurement Method PATIENT WEIGHT: Weight (lb): 156Weight (oz): 15.51Weight (kg): 71.200 Medications:Active Meds + DC'd Last 24 HrsCollagenase (SANTYL 2GM TOPICAL) 1 APPLIC DAILY TOPICAL Heparin Sodium (HEPARIN 5000 UNITS/ML) 5,000 UNIT Q8H SUBQ Glucagon (GLUCAGON) 1 MG ASDIR PRN IM Polyethylene Glycol (MIRALAX) 17 GM DAILY PO Bisacodyl (DULCOLAX) 10 MG DAILY PRN PRN RECTAL Ticagrelor (BRILINTA) 90 MG Q12HR PO Dextrose/Water (DEXTROSE 10% IN WATER) 125 ML ASDIR PRN IV (CKD) Dextrose/Water (DEXTROSE 10% IN WATER) 250 ML ASDIR PRN IV (CKD) Glucagon (GLUCAGON) 1 MG ASDIR PRN IM Senna/Docusate Sodium (SENOKOT S) 1 TAB BID 9A 5P PO Mupirocin (BACTROBAN 2% 22 GM OINTMENT) 1 APPLIC BID NASAL Heparin Sodium (HEPARIN 5000 UNITS/ML) 0 ASDIR PRN IV (DC) Heparin Sodium (Porcine) (HEPARIN 25,000 UNITS/ 1/2NS 500ML) 500 ML ASDIR IV (DC) Sodium Bicarbonate (SODIUM BICARBONATE) 25 ML Q24H IV (DC) Dextrose/Water (DEXTROSE 5% WATER) 1,000 MLFentanyl Citrate (SUBLIMAZE) 25 MCG Q2H PRN PRN IV Tramadol HCl (ULTRAM) 50 MG Q6H PRN PRN PO Atropine Sulfate (ATROPINE SULFATE 0.1MG/ML SYR) 0.5 MG ASDIR PRN IV Sodium Chloride (SODIUM CHLORIDE 0.9%) 500 ML ASDIR PRN IV Dorzolamide HCl (TRUSOPT 10 ML OPHTH SOLN) 1 DROP TID EACH EYE Midodrine (PROAMATINE) 7.5 MG 0800,1200,1600 PO Epoetin Tanner-epbx (RETACRIT) 10,000 UNIT TuThSa@2100 IV Loperamide HCl (IMODIUM CAPSULE) 2 MG QID PRN PRN PO Aspirin (ASPIRIN) 81 MG DAILY PO Acetaminophen (TYLENOL) 650 MG Q6H PRN PRN PO Atorvastatin Calcium (LIPITOR) 40 MG BEDTIME PO Albumin Human (ALBUMINAR-25%) 12.5 GM ASDIR PRN IV Heparin Sodium (Porcine) (HEPARIN SODIUM) 3,000 UNIT ASDIR PRN DIALYSIS Lidocaine HCl (LIDOCAINE HCL/PF) 0.5 ML ASDIR PRN I-DERMAL (CKD) Mannitol (Mannitol 20%) 12.5 GM ASDIR PRN IV Sodium Chloride (SODIUM CHLORIDE 0.9%) 2,000 ML ASDIR PRN IV Sodium Chloride (SODIUM CHLORIDE) 5 ML ASDIR PRN IV Sodium Chloride (SODIUM CHLORIDE) 10 ML ASDIR PRN IV Sodium Chloride (SODIUM CHLORIDE 0.9%) 250 ML ASDIR PRN IV Physical ExamGeneral appearance: alert, awake, orientedHead/Eyes: atraumatic, normal conjunctiva/sclera, normal eyelids/periorb.Neck: full range of motionCardiovascular: normal capillary refill, normal heart sounds, regular rate rhythmRespiratory: aerating well, clear to auscultation, symmetric expansion, no distressAbdomen: non-tender, normal bowel sounds, soft, no distentionExtremities: no edemaNeuro/CREDENTIALS SPECIALIST: alert, oriented X 3Ulcer: Type/cause: diabetic (right heel ulcer), arterial Location: foot, heel Laterality: bilateralPsychiatry: depressed ResultsFindings/Data:Laboratory Tests 07/24 527 Chemistry Sodium (134 - 147 mEq/L) 130 L Potassium (3.4 - 5.0 mEq/L) 4.4 Chloride (100 - 108 mEq/L) 96 L Carbon Dioxide (21 - 33 mEq/l) 28 Anion Gap (0 - 20) 11 BUN (7 - 25 mg/dL) 23 Creatinine (0.6 - 1.3 mg/dL) 2.7 H Glomerular Filtr Rate (80 - 90) 18.9 L Glucose (77 - 141 mg/dL) 142 H Calcium (8.0 - 10.5 mg/dL) 8.6 Ionized Calcium Stefany (1.09 - 1.30 MMOL/L) 1.10 Phosphorus (2.5 - 4.9 MG/DL) 4.6 Magnesium (1.6 - 2.6 mg/dL) 2.16 Laboratory Tests 07/24 527 Hematology WBC (4.5 - 11.0 x10 3/uL) 16.3 H RBC (3.54 - 5.02 x10 6/uL) 2.60 L Hgb (11.0 - 15.0 g/dL) 8.3 L Hct (33.0 - 45.0 %) 25.8 L MCV (81.0 - 99.0 fL) 99.2 H MCH (27.0 - 33.0 pg) 31.9 MCHC (33.0 - 37.0 g/dL) 32.2 L RDW (11.5 - 14.5 %) 24.0 H Plt Count (150 - 400 x10 3/uL) 194 MPV (7.0 - 9.0 fL) 12.4 H Neut % (Auto) (56.0 - 77.0 %) 84.7 H Lymph % (Auto) (14.0 - 32.0 %) 6.1 L [place] % (Auto) (4.8 - 9.0 %) 8.4 Eos % (Auto) (0.3 - 3.7 %) 0.0 L Baso % (Auto) (0.0 - 2.0 %) 0.1 Neut # (Auto) (2.0 - 7.6 x10 3/uL) 13.81 H Lymph # (Auto) (1.0 - 3.8 x10 3/uL) 1.00 [place] # (Auto) (0.1 - 0.8 x10 3/uL) 1.37 H Eos # (Auto) (0.0 - 0.2 x10 3/uL) 0.00 Baso # (Auto) (0.0 - 0.2 x10 3/uL) 0.01 Abs Immat Gran (auto) (0.00 - 0.03 x10 3/uL) 0.11 H Add Manual Diff NO Immature Gran % (0.0 - 2.0 %) 0.7 Nucleated RBC % (0 - 0 %) 0.9 H Nucleated RBCs # (Man) (0.0 - 0.1 x10 3/uL) 0.15 H Diagnosis, Assessment PlanConsultants: cardiology, cardiovascular surgery, critical/associate professor physician, nephrology Free Text DxA P NotesFree text DxA P notes:68-year-old female with a past medical history of type 1 diabetes from the age of 46 years old, end-stage renal disease, on dialysis since July 2022, hypertension who presented to her inventory management specialist for evaluation of bilateral nonhealing ulcerations of her bilateral heels for the past 3 months, and shortness of breath with exertion. Left heart catheterization showed significant for severe three-vessel coronary artery disease with severe bilateral occluded SFAs of the lower extremity. Issues as below. Suspected urinary tract infectionSevere three-vessel CADSevere peripheral vascular diseaseDiabetes mellitusEnd-stage renal failure on hemodialysis Nonhealing bilateral heel ulcerationsHypertensionHyperlipidemiaCHF Mitral valve regurgitation Plan and recommendations Patient admitted into medicineVital signs every 4PatientAntiplatelets and statin per cardiologySeen by vascular surgery" CT surgery. Nephrology for hemodialysis. Will do basic lab work include CBC BMP now. Patient is not having significant hypoxia at this timeDVT prophylaxisRestart home medicationsDiscussed management plan in detail with patient's family. 07/13/[address] surgery and vascular surgery plansHemodialysis was done yesterdayHemodialysis per nephrologyMonitor renal functionBlood sugar control with insulin pump. 07/14/2023 Fever spike last night blood cultures on empiric antibiotics for possible UTIAntibiotics changedFollow-up on culturesFollow-up on cardiothoracic surgery and oncology recommendations plan to have discussion tomorrowBlood sugars controlledLab work otherwise stableDVT prophylaxisHemodialysis per nephrology 07/15- take over care from another group -- review all lab and image -- she is seen in the stress test lab . no cp no sob -- urine culture --positive continue rocephin iv -- blood culture -- no grow -- stress test -- pending --continue HD as schedule 07/16 High revascularization risk, will be discussed on Tuesday in clinical conference, ejection fraction 28%, viable tissue except apical scar, continue with dialysis, severe peripheral artery disease with heel ulcers, mitral valve regurgitation. 07/17 conference on Tuesday regarding the decision to proceed with revascularization, depressed, wound care to heels, increase midodrine to 10 mg 3times daily in view of persistent hypotension. 07/18 hyponatremic with sodium of 128, on hemodialysis, blood pressure has improved on midodrine, revascularization decision in a.m., daughter is at bedside, wound care. 07/19- no cp no sob -- family are in the room -- conference decision -pending -- continue current management 07/20- she is weak -- no cp -- spoke to cardiology continue monitor in CV1 will present the case in tuesday conference continue medical treatment 07/21- she is seen in the chemical laboratory assistant --PCI /impella -- afternoon -- lab am 07/22- she was transferred to CCU --post procedure -- HB--5.8 -- 2 units blood transfusion --HD -- today -- she is hemodynamic stable -- may dc ancaella as CV surgeon -- continue monitor in CCU -- family in the room -- answer all question -- review all lab and notes -- case is discussed with nurse 07/23- rest on the bed -- she feel comfortable -- no cp no sob -- H H--9--post transfusion stable -- BP--on low side -- continue monitor in CCU -- review all lab and image 07/24- she is seen in the CCU -- no cp and sob -- PAD -- vascular surgeon consult -- may need intervention -- foot unheal wound -- wound care and wound care physician consult -- she is hemodynamic stable -- review lab and notes -- continue monitor in ccu at 1729 RPT #:[id number] OF REPORTPRProgress [id number]:10:00G.[id number] ailable for patient dmwnLUPEMDVKZLVEUY5631-11-25A21:29:42 [facility] [place] 2023-07-24 11:28:00 [id number] ZMTtgQ /Tsa2Vtiavb9Vd2Zdpt5bodP+r6vm07982-59-38N58:28 :00 [facility]oCritical Care Progress NoteREPORT#:[id number] REPORT STATUS: SignedDATE:07/24/23 TIME: 1128 PATIENT: JOSEPH ROWLEY UNIT #: [id number]#: [id number] [facility] [place]GE[facility] 68 SEX: F ATTEND: Tanvir Prasad AUTHOR: Enedelia Chu CNP * ALL edits or amendments must be made on the electronic/computer document * SubjectiveChief complaint:S/p PCI with impella.HPI:Joseph Mccullough is a 68-year-old female with a DM1, HTN, severe cardiomyopathy, HFwith EF of 25% as well as severe MR, ESRD, on dialysis since July 2022, whopresented to her inventory management specialist for evaluation of bilateral nonhealing ulcerationsof her bilateral heels for the past 3 months, and shortness of breath with exertion. She underwent elective coronary and peripheral angiogram on 07/12, which revealed multivessel CAD and severe bilateral PAD. she was then evaluated by Vascular and CT surgery. Patient was deemed not a candidtae for CABG surgery. PCI with impella placement was planned with CVsx on standby. Today patient is transferred to CCU room # 3306 post PCI with impella support via R axillary region. Site has surgical dressing in place, some oozing noted. She is drowsy but easy to arouse, she is following commands. Oxygen via face mask, sats 100%. B/p 107/67 (78), HR 78. Reports pain to surgical site. Objective GeneralVS/I OLast Documented: Result Date Time Pulse Ox 99 07/24 09 B/P 119/58 07/24 09 B/P Mean 83 07/24 09 Pulse 60 07/24 0900 Resp 15 07/24 09 Temp 98.6 07/24 0658 O2 Delivery Room air 07/24 0400 O2 Flow Rate 2 07/23 0000 FiO2 36 07/21 2000 24 hour I O ending at 0700: 07/24 0700 07/23 1900 Intake Total 480 300 Output Total Balance 480 300 Intake, Oral 480 300 Number 0 Bowel Movements Number Voids 1 Patient 71.2 kg Weight Weight Bed scale Measurement Method PATIENT WEIGHT: Weight (lb): 156Weight (oz): 15.51Weight (kg): 71.200 Medications:Active Meds + DC'd Last 24 HrsCollagenase (SANTYL 2GM TOPICAL) 1 APPLIC DAILY TOPICAL Heparin Sodium (HEPARIN 5000 UNITS/ML) 5,000 UNIT Q8H SUBQ Glucagon (GLUCAGON) 1 MG ASDIR PRN IM Polyethylene Glycol (MIRALAX) 17 GM DAILY PO Bisacodyl (DULCOLAX) 10 MG DAILY PRN PRN RECTAL Ticagrelor (BRILINTA) 90 MG Q12HR PO Dextrose/Water (DEXTROSE 10% IN WATER) 125 ML ASDIR PRN IV (CKD) Dextrose/Water (DEXTROSE 10% IN WATER) 250 ML ASDIR PRN IV (CKD) Glucagon (GLUCAGON) 1 MG ASDIR PRN IM Senna/Docusate Sodium (SENOKOT S) 1 TAB BID 9A 5P PO Mupirocin (BACTROBAN 2% 22 GM OINTMENT) 1 APPLIC BID NASAL Heparin Sodium (HEPARIN 5000 UNITS/ML) 0 ASDIR PRN IV (DC) Heparin Sodium (Porcine) (HEPARIN 25,000 UNITS/ 1/2NS 500ML) 500 ML ASDIR IV (DC) Sodium Bicarbonate (SODIUM BICARBONATE) 25 ML Q24H IV (DC) Dextrose/Water (DEXTROSE 5% WATER) 1,000 MLFentanyl Citrate (SUBLIMAZE) 25 MCG Q2H PRN PRN IV Tramadol HCl (ULTRAM) 50 MG Q6H PRN PRN PO Atropine Sulfate (ATROPINE SULFATE 0.1MG/ML SYR) 0.5 MG ASDIR PRN IV Sodium Chloride (SODIUM CHLORIDE 0.9%) 500 ML ASDIR PRN IV Dorzolamide HCl (TRUSOPT 10 ML OPHTH SOLN) 1 DROP TID EACH EYE Midodrine (PROAMATINE) 7.5 MG 0800,1200,1600 PO Epoetin Tanner-epbx (RETACRIT) 10,000 UNIT TuThSa@2100 IV Loperamide HCl (IMODIUM CAPSULE) 2 MG QID PRN PRN PO Aspirin (ASPIRIN) 81 MG DAILY PO Acetaminophen (TYLENOL) 650 MG Q6H PRN PRN PO Atorvastatin Calcium (LIPITOR) 40 MG BEDTIME PO Albumin Human (ALBUMINAR-25%) 12.5 GM ASDIR PRN IV Heparin Sodium (Porcine) (HEPARIN SODIUM) 3,000 UNIT ASDIR PRN DIALYSIS Lidocaine HCl (LIDOCAINE HCL/PF) 0.5 ML ASDIR PRN I-DERMAL (CKD) Mannitol (Mannitol 20%) 12.5 GM ASDIR PRN IV Sodium Chloride (SODIUM CHLORIDE 0.9%) 2,000 ML ASDIR PRN IV Sodium Chloride (SODIUM CHLORIDE) 5 ML ASDIR PRN IV Sodium Chloride (SODIUM CHLORIDE) 10 ML ASDIR PRN IV Sodium Chloride (SODIUM CHLORIDE 0.9%) 250 ML ASDIR PRN IV ResultsFindings/data:Laboratory Tests 07/24 527 Chemistry Sodium (134 - 147 mEq/L) 130 L Potassium (3.4 - 5.0 mEq/L) 4.4 Chloride (100 - 108 mEq/L) 96 L Carbon Dioxide (21 - 33 mEq/l) 28 Anion Gap (0 - 20) 11 BUN (7 - 25 mg/dL) 23 Creatinine (0.6 - 1.3 mg/dL) 2.7 H Glomerular Filtr Rate (80 - 90) 18.9 L Glucose (77 - 141 mg/dL) 142 H Calcium (8.0 - 10.5 mg/dL) 8.6 Ionized Calcium Stefany (1.09 - 1.30 MMOL/L) 1.10 Phosphorus (2.5 - 4.9 MG/DL) 4.6 Magnesium (1.6 - 2.6 mg/dL) 2.16 Laboratory Tests 07/24 0527 Hematology WBC (4.5 - 11.0 x10 3/uL) 16.3 H RBC (3.54 - 5.02 x10 6/uL) 2.60 L Hgb (11.0 - 15.0 g/dL) 8.3 L Hct (33.0 - 45.0 %) 25.8 L MCV (81.0 - 99.0 fL) 99.2 H MCH (27.0 - 33.0 pg) 31.9 MCHC (33.0 - 37.0 g/dL) 32.2 L RDW (11.5 - 14.5 %) 24.0 H Plt Count (150 - 400 x10 3/uL) 194 MPV (7.0 - 9.0 fL) 12.4 H Neut % (Auto) (56.0 - 77.0 %) 84.7 H Lymph % (Auto) (14.0 - 32.0 %) 6.1 L [place] % (Auto) (4.8 - 9.0 %) 8.4 Eos % (Auto) (0.3 - 3.7 %) 0.0 L Baso % (Auto) (0.0 - 2.0 %) 0.1 Neut # (Auto) (2.0 - 7.6 x10 3/uL) 13.81 H Lymph # (Auto) (1.0 - 3.8 x10 3/uL) 1.00 [place] # (Auto) (0.1 - 0.8 x10 3/uL) 1.37 H Eos # (Auto) (0.0 - 0.2 x10 3/uL) 0.00 Baso # (Auto) (0.0 - 0.2 x10 3/uL) 0.01 Abs Immat Gran (auto) (0.00 - 0.03 x10 3/uL) 0.11 H Add Manual Diff NO Immature Gran % (0.0 - 2.0 %) 0.7 Nucleated RBC % (0 - 0 %) 0.9 H Nucleated RBCs # (Man) (0.0 - 0.1 x10 3/uL) 0.15 H Laboratory Tests 07/24/23 0527:[Embedded Image Not Available] Free Text Obj NotesFree Text Obj Notes:Physical ExamGeneral appearance: alert, awakeNeck: non-tender, no JVDCardiovascular: CV assessment: regular rate and rhythm Murmur assessment:heart murmurRespiratory: on oxygen, no distressAbdomen: soft, non-tender, normal bowel sounds, no distentionGenitourinary: no flank pain, no urinary catheterUpper extremity: UE assessment: Impella in placeLower extremity: LE assessment: abnormal pedal pulse, abnormal peripheral pulseMusculoskeletal: normal inspectionNeuro/CREDENTIALS SPECIALIST: alert, oriented X 3, normal speechSkin: right heel ulcerUlcer: Type/cause: diabetic (right heel ulcer), arterial Location: foot, heel Laterality: bilateralPsychiatry: normal affect, normal mood Diagnosis, Assessment PlanFree text A P:Joseph Mccullough is a 68-year-old female with a DM1, HTN, severe cardiomyopathy, HFwith EF of 25% as well as severe MR, ESRD, on dialysis since July 2022, whopresented to her inventory management specialist for evaluation of bilateral nonhealing ulcerationsof her bilateral heels for the past 3 months, and shortness of breath with exertion. She underwent elective coronary and peripheral angiogram on 07/12, which revealed multivessel CAD and severe bilateral PAD. she was then evaluated by Vascular and CT surgery. Patient was deemed not a candidtae for CABG surgery. PCI with impella placement was planned with CVsx on standby. Patient is transferred to CCU room # 3306 post PCI with impella support via R axillary region. Site has surgical dressing in place, some oozing noted. She is drowsy but easy to arouse, she is following commands. Oxygen via face mask, gman975%. B/p 107/67 (78), HR 78. Reports pain to surgical site. Plan:07/24/2023 Seen and examined. Neuro:AO x3, no distressAt baselineJudicious pain control CV:Started on heparin 5000 units SQ every 8 hours by Cardio consultMitral regurgitation, severe ischemic cardiomyopathyCAD, multivessel disease - S/P Impella 5.5 protected PCI to LCx, mid LAD, proximal LAD to the left main07/22 DC ImpellaLimited echo done, result notedOn aspirin, statin, BrilintaContinue midodrineSevere PAD with nonhealing foot ulcers - Vascular surgeon consulted, pending recsCardio, vascular and CTS following Resp:Saturating well on room airSupplemental oxygen to keep saturation more than 92% GI/Endo:GFQDowF5E 7.5Glycemic controlDM 1 - patient has her own insulin pump, glucochecks ACHSBowel care :ESRD, on HD - HD per nephrologyRight Tessio HD catheter in placeMonitor renal function, I O, weigh dailyMonitor electrolytes and replete as neededNephro following Heme/ID:AfebrileLeukocytosisOn Retacrit Monitor CBC and transfuse as needed Musc:Foot ulcers - Wound care consulted, pending recsWound care nurse followingFollow wound care recommendationsSkin carePressure injury prevention PT/OTDVT prophylaxis: Heparin subcuDispo: CCU. Patient is full code. I spent 35 minutes of critical care reviewing labs, imaging and discussing plan of care with ICC team, patient, family and nurse.Consultants: cardiology, cardiovascular surgery, critical/associate professor physician, nephrologyCode status: full codePlan discussed with: patient, family, nurse, interdisc care teamCritical care time: Minutes: 35 at 1603 [facility] #:[id number] OF REPORTPRProgress [id number]:28:00G.[id number] ailable for patient [id number]:03:53 [facility] [place] 2023-07-24 08:10:00 [id number] HrIQyl VoV1/NQfQk3yDui8eUkF4Pk+vyb/ee6212-32-21N82:10 :00 [facility]oCardiology Progress NoteREPORT#:[id number] REPORT STATUS: SignedDATE:07/24/23 TIME: 08 PATIENT: JOSEPH ROWLEY UNIT #: [id number]#: [id number] ROOM/BED: 3306-1DOB: [birth year] AGE: 68 SEX: F ATTEND: Tanvir Prasad AUTHOR: Brandy Doyle MD * ALL edits or amendments must be made on the electronic/computer document * Subjective Free Text Subj NotesFree Text Subj Notes:Cardiology progress note Date of service: 3Chief complaint/reason for consult: CAD CHF PCIPatient seen and examined, chart reviewed, questions/concerns addressed with RN.Current medication and vitals reviewed. HPI and interval Hx: Denies any chest pain or shortness of breath. No major events overnight. Plan for hemodialysis today the downgrade to telemetry. Subjective: No chest pain or shortness of breath Objective:Vital Signs Date Temp Pulse Resp B/P B/P Mean Pulse Ox FiO2 07/23-07/24 98.3-98.8 58-72 12-29 88-143/39-64 57-92 96-100GEN: Alert and cooperative, no acute distress.HEENT: NC/AT, EOMICARD: RRR, normal S1/S2, no R/M/G appreciatedLUNGS: CTA w/o added sounds, GBAE.ABD: Soft, nondistended, nontender. Intact BS Assessment, Impression and medical decision making:-Two 8-year-old with hypertension, hyperlipidemia type 1 diabetes mellitus, end-stage renal disease severe multivessel coronary disease with ischemic cardiomyopathy, NSTEMI, chronic combined congestive heart failure status post high risk Impella supported multivessel PCI to left mid LAD/LCx Plan/recommendation:-Hemodynamically stable post Impella explant-Continue with aspirin Brilinta and hypertensive vvcgxl-Vfs-qyyf losartan and continue with metoprolol at 2124 RPT #:[id number] OF REPORTPRProgress [id number]:10:00.[id number] ailable for patient dayaDLCSBELQOYQGST5722-41-79L80:24:39 [facility] [place] 2023-07-23 17:23:00 [id number] [id number]:23 :00 [facility] ([facility]Nephrology Progress NoteREPORT#:[id number] REPORT STATUS: SignedDATE:07/23/23 TIME: 1723 PATIENT: JOSEPH ROWLEY UNIT #: [id number]#: [id number] ROOM[address]DOB: [birth year] AGE: 68 SEX: F ATTEND: Tanvir Prasad MDADM AUTHOR: Tomasa Feng MD * ALL edits or amendments must be made on the electronic/computer document * SubjectiveChief complaint:follow up of ESRD Review of SystemsConstitutional:Reports: generalized weakness. All systems rev neg: except as marked Objective GeneralVS/I O:Vital Signs: Date Time Temp Pulse Resp B/P B/P Pulse O2 O2 Flow FiO2 Mean Ox Delivery Rate 07/23 1700 65 23 97 07/23 1600 69 25 98 07/23 1501 67 17 143/64 92 98 07/23 1500 68 25 97 07/23 1400 67 21 96 07/23 1300 72 27 98 07/23 1200 67 25 88/40 58 100 07/23 1100 64 15 96/46 67 99 07/23 1000 67 22 96/39 57 99 07/23 0921 97 Room air 07/23 0900 68 17 105/47 68 98 07/23 0800 66 17 111/53 77 96 07/23 0730 Room air 07/23 0700 70 24 135/120 128 97 07/23 0400 97.5 Room air 07/23 0400 79 20 119/53 76 95 07/23 0200 66 14 107/49 71 100 07/23 0030 66 14 79/59 69 100 07/23 0000 97.5 Nasal 2 cannula 07/23 0000 66 13 94/44 64 100 09/08 2330 71 21 85/65 75 100 /08 2300 64 13 78/57 67 100 / 2230 67 14 84/63 73 100 / 2200 85/63 74 /08 2200 72 15 91/45 65 100 /08 2130 79 22 94/73 84 100 /08 2100 77 26 83/61 72 100 / 2030 80 23 77/55 65 93 07/22 2000 97.6 Nasal 2 cannula 07/22 2000 Nasal 2 cannula 07/22 2000 119/40 68 07/22 2000 80 23 85/47 55 94 / 1930 80 22 121/40 69 96 07/22 1900 81 23 126/47 78 100 24 hour I O ending at 0700: 07/23 0707/22 1900 Intake Total 480 825.00 Output Total 2300 Balance 480 -1475.00 Intake, IV 375.00 Intake, Oral 480 100 Intake, 350 Packed Cells Number 0 Bowel Movements Number Voids 0 Output, 2300 Hemodialysis PATIENT WEIGHT: Weight (lb): 159Weight (oz): 6.31Weight (kg): 72.300 MedicationsActive Meds + DC'd Last 24 HrsGlucagon (GLUCAGON) 1 MG ASDIR PRN IM Polyethylene Glycol (MIRALAX) 17 GM DAILY PO Bisacodyl (DULCOLAX) 10 MG DAILY PRN PRN RECTAL Ticagrelor (BRILINTA) 90 MG Q12HR PO Sugammadex Sodium (BRIDION) 0 .STK-MED ONE IV (DC) Cefazolin Sodium (KEFZOL OR ANCEF) 0 .STK-MED ONE .ROUTE (DC) Dextrose/Water (DEXTROSE 10% IN WATER) 125 ML ASDIR PRN IV (CKD) Dextrose/Water (DEXTROSE 10% IN WATER) 250 ML ASDIR PRN IV (CKD) Glucagon (GLUCAGON) 1 MG ASDIR PRN IM Clopidogrel Bisulfate (Plavix) 75 MG DAILY PO (DC) Senna/Docusate Sodium (SENOKOT S) 1 TAB BID 9A 5P PO Mupirocin (BACTROBAN 2% 22 GM OINTMENT) 1 APPLIC BID NASAL Heparin Sodium (HEPARIN 5000 UNITS/ML) 0 ASDIR PRN IV (DC) Heparin Sodium (Porcine) (HEPARIN 25,000 UNITS/ 1/2NS 500ML) 500 ML ASDIR IV (DC) Sodium Bicarbonate (SODIUM BICARBONATE) 25 ML Q24H IV (DC) Dextrose/Water (DEXTROSE 5% WATER) 1,000 MLFentanyl Citrate (SUBLIMAZE) 25 MCG Q2H PRN PRN IV Tramadol HCl (ULTRAM) 50 MG Q6H PRN PRN PO Atropine Sulfate (ATROPINE SULFATE 0.1MG/ML SYR) 0.5 MG ASDIR PRN IV Sodium Chloride (SODIUM CHLORIDE 0.9%) 500 ML ASDIR PRN IV Dorzolamide HCl (TRUSOPT 10 ML OPHTH SOLN) 1 DROP TID EACH EYE Midodrine (PROAMATINE) 7.5 MG 0800,1200,1600 PO Epoetin Tanner-epbx (RETACRIT) 10,000 UNIT TuThSa@2100 IV Loperamide HCl (IMODIUM CAPSULE) 2 MG QID PRN PRN PO Aspirin (ASPIRIN) 81 MG DAILY PO Acetaminophen (TYLENOL) 650 MG Q6H PRN PRN PO Atorvastatin Calcium (LIPITOR) 40 MG BEDTIME PO Albumin Human (ALBUMINAR-25%) 12.5 GM ASDIR PRN IV Heparin Sodium (Porcine) (HEPARIN SODIUM) 3,000 UNIT ASDIR PRN DIALYSIS Lidocaine HCl (LIDOCAINE HCL/PF) 0.5 ML ASDIR PRN I-DERMAL (CKD) Mannitol (Mannitol 20%) 12.5 GM ASDIR PRN IV Sodium Chloride (SODIUM CHLORIDE 0.9%) 2,000 ML ASDIR PRN IV Sodium Chloride (SODIUM CHLORIDE) 5 ML ASDIR PRN IV Sodium Chloride (SODIUM CHLORIDE) 10 ML ASDIR PRN IV Sodium Chloride (SODIUM CHLORIDE 0.9%) 250 ML ASDIR PRN IV Physical ExamGeneral appearance: alert, awake, orientedHead/eyes: atraumatic, normocephalic, PERRLAENT: moist mucous membranesNeck: no JVD, no lymphadenopathy, no masses or swellingCardiovascular: normal heart sounds, regular rate and rhythm, no murmur, no rubRespiratory: aerating well, clear to auscultation, normal breath sounds, no distressAbdomen: non-tender, normal bowel sounds, soft, no reboundGenitourinary: no bladder distention, no flank pain, no urinary catheterExtremities: pitting edema, no gangreneNeuro/CREDENTIALS SPECIALIST: alert, oriented X 3, CN II-XII intact, normal speechUlcer: Type/cause: diabetic (right heel ulcer), arterial Location: foot, heel Laterality: bilateral ResultsFindings/Data:Laboratory Tests 07/2327 0258 Chemistry Sodium (134 - 147 mEq/L) 134 Potassium (3.4 - 5.0 mEq/L) 4.1 Chloride (100 - 108 mEq/L) 98 L Carbon Dioxide (21 - 33 mEq/l) 29 Anion Gap (0 - 20) 11 BUN (7 - 25 mg/dL) 15 Creatinine (0.6 - 1.3 mg/dL) 1.9 H Glomerular Filtr Rate (80 - 90) 28.8 L Glucose (77 - 141 mg/dL) 215 H POC Glucose (70 - 110 MG/DL) 205 H Calcium (8.0 - 10.5 mg/dL) 8.4 Ionized Calcium Stefany (1.09 - 1.30 MMOL/L) 1.11 Phosphorus (2.5 - 4.9 MG/DL) 3.7 Magnesium (1.6 - 2.6 mg/dL) 1.95 Laboratory Tests 07/23 025 Hematology WBC (4.5 - 11.0 x10 3/uL) 14.0 H RBC (3.54 - 5.02 x10 6/uL) 2.84 L Hgb (11.0 - 15.0 g/dL) 9.0 L Hct (33.0 - 45.0 %) 28.0 L MCV (81.0 - 99.0 fL) 98.6 MCH (27.0 - 33.0 pg) 31.7 MCHC (33.0 - 37.0 g/dL) 32.1 L RDW (11.5 - 14.5 %) 23.7 H Plt Count (150 - 400 x10 3/uL) 203 MPV (7.0 - 9.0 fL) 12.3 H Neut % (Auto) (56.0 - 77.0 %) 88.9 H Lymph % (Auto) (14.0 - 32.0 %) 5.8 L [place] % (Auto) (4.8 - 9.0 %) 4.6 L Eos % (Auto) (0.3 - 3.7 %) 0.1 L Baso % (Auto) (0.0 - 2.0 %) 0.1 Neut # (Auto) (2.0 - 7.6 x10 3/uL) 12.44 H Lymph # (Auto) (1.0 - 3.8 x10 3/uL) 0.81 L [place] # (Auto) (0.1 - 0.8 x10 3/uL) 0.64 Eos # (Auto) (0.0 - 0.2 x10 3/uL) 0.01 Baso # (Auto) (0.0 - 0.2 x10 3/uL) 0.02 Abs Immat Gran (auto) (0.00 - 0.03 x10 3/uL) 0.07 H Add Manual Diff NO Immature Gran % (0.0 - 2.0 %) 0.5 Nucleated RBC % (0 - 0 %) 0.4 H Nucleated RBCs # (Man) (0.0 - 0.1 x10 3/uL) 0.05 Diagnosis, Assessment PlanFree Text A P:1. ESRD continue with dialysis Tuesday. 2. Hypotension on midodrine 3. Coronary artery disease status post PCI, impella dc today 4. Diabetes type 1 per primary team 5. Anemia of CKD on MATT as hemoglobin less than 10, 10,000 unit 3 times a week 6. hyponatremia Repeat lab in the morning. P.o. fluid restriction 1.2 L/day. 7. Volume overload reassess in a.m. for ultrafiltration Discussed with brother at bedside Consultants: cardiology, cardiovascular surgery, critical/associate professor physician, nephrology at 1725 RPT #:[id number] OF REPORTPRProgress [id number]:23:00G.[id number] ailable for patient [id number]:25:52 [facility] [place] 2023-07-23 11:55:00 [id number] GehDV5 [id number]:55 :00 [facility]oHospital[facility] Progress NoteREPORT#:[id number] REPORT STATUS: SignedDATE:07/23/23 TIME: 1155 PATIENT: JOSEPH ROWLEY UNIT #: [id number]#: [id number] ROOM/BED: 3306-1DOB: [birth year] AGE: 68 SEX: F ATTEND: Tanvir Prasad [facility] AUTHOR: Violetta Davis MD * ALL edits or amendments must be made on the electronic/computer document * SubjectiveChief complaint:rest on the bed . no cp no sob post PCI and impellaHPI:Patient had a fever spike yesterday was started on empiric antibiotics with UA abnormal system of UTI she is less confused and more alert per patient/family atbedside Review of SystemsConstitutional:Reports: generalized weakness. All systems rev neg: except as noted Objective GeneralVS/I O:Vital Signs: Date Time Temp Pulse Resp B/P B/P Pulse O2 O2 Flow FiO2 Mean Ox Delivery Rate 07/23 0921 97 Room air 07/23 0400 36.4 Room air 07/23 0400 79 20 119/53 76 95 / 0200 66 14 107/49 71 100 09/ 0030 66 14 79/59 69 100 / 0000 36.4 Nasal 2 cannula 07/23 0000 66 13 94/44 64 100 09/08 2330 71 21 85/65 75 100 09/08 2300 64 13 78/57 67 100 09/08 2230 67 14 84/63 73 100 /08 2200 85/63 74 09/08 2200 72 15 91/45 65 100 09/08 2130 79 22 94/73 84 100 09/08 2100 77 26 83/61 72 100 09/08 2030 80 23 77/55 65 93 09/08 2000 36.4 Nasal 2 cannula 07/22 2000 Nasal 2 cannula 07/22 2000 119/40 68 /08 1999 80 23 85/47 55 94 09/08 1930 80 22 121/40 69 96 09/08 1900 81 23 126/47 78 100 09/08 1630 74 11 102/52 73 91 09/08 1600 36.4 73 11 111/46 65 93 09/08 1530 69 14 106/53 76 89 09/08 1500 68 18 106/49 70 100 09/08 1430 72 16 103/49 71 100 /08 1402 69 26 100/40 57 100 /08 1400 69 18 96/47 68 100 /08 1330 70 19 95/48 67 100 /08 1300 72 14 95/51 69 100 /08 1230 74 17 88/38 55 100 /08 1200 36.5 71 13 97/47 68 100 24 hour I O ending at 0700: 07/23 0700 07/22 1900 Intake Total 480 825.00 Output Total 2300 Balance 480 -1475.00 Intake, IV 375.00 Intake, Oral 480 100 Intake, 350 Packed Cells Number 0 Bowel Movements Number Voids 0 Output, 2300 Hemodialysis PATIENT WEIGHT: Weight (lb): 159Weight (oz): 6.31Weight (kg): 72.300 Medications:Active Meds + DC'd Last 24 HrsGlucagon (GLUCAGON) 1 MG ASDIR PRN IM Polyethylene Glycol (MIRALAX) 17 GM DAILY PO Bisacodyl (DULCOLAX) 10 MG DAILY PRN PRN RECTAL Ticagrelor (BRILINTA) 90 MG Q12HR PO Sugammadex Sodium (BRIDION) 0 .STK-MED ONE IV (DC) Cefazolin Sodium (KEFZOL OR ANCEF) 0 .STK-MED ONE .ROUTE (DC) Heparin Sodium (HEPARIN SODIUM) 0 .STK-MED ONE .ROUTE (DC) Fentanyl Citrate (SUBLIMAZE) 0 .STK-MED ONE IV (DC) Dexamethasone Sodium Phosphate (DECADRON) 0 .STK-MED ONE .ROUTE (DC) Etomidate (AMIDATE) 0 .STK-MED ONE IV (DC) Lidocaine HCl (XYLOCAINE) 0 .STK-MED ONE .ROUTE (DC) Ondansetron HCl (ZOFRAN) 0 .STK-MED ONE .ROUTE (DC) Rocuronium [place] (ZEMURON) 0 .STK-MED ONE IV (DC) Succinylcholine Chloride (QUELICIN FLIPTOP) 0 .STK-MED ONE IV (DC) Norepinephrine Bitartrate (NOREPINEPHRINE 8 MG/NS 250 ML) 250 ML .STK-MED ONE IV (DC) Cefazolin Sodium (KEFZOL OR ANCEF) 0 .STK-MED ONE .ROUTE (DC) Dextrose/Water (DEXTROSE 10% IN WATER) 125 ML ASDIR PRN IV (CKD) Dextrose/Water (DEXTROSE 10% IN WATER) 250 ML ASDIR PRN IV (CKD) Glucagon (GLUCAGON) 1 MG ASDIR PRN IM Clopidogrel Bisulfate (Plavix) 75 MG DAILY PO (DC) Senna/Docusate Sodium (SENOKOT S) 1 TAB BID 9A 5P PO Mupirocin (BACTROBAN 2% 22 GM OINTMENT) 1 APPLIC BID NASAL Heparin Sodium (HEPARIN 5000 UNITS/ML) 0 ASDIR PRN IV Heparin Sodium (Porcine) (HEPARIN 25,000 UNITS/ 1/2NS 500ML) 500 ML ASDIR IV (CKD) Sodium Bicarbonate (SODIUM BICARBONATE) 25 ML Q24H IV (CKD) Dextrose/Water (DEXTROSE 5% WATER) 1,000 MLFentanyl Citrate (SUBLIMAZE) 25 MCG Q2H PRN PRN IV Tramadol HCl (ULTRAM) 50 MG Q6H PRN PRN PO Atropine Sulfate (ATROPINE SULFATE 0.1MG/ML SYR) 0.5 MG ASDIR PRN IV Sodium Chloride (SODIUM CHLORIDE 0.9%) 500 ML ASDIR PRN IV Dorzolamide HCl (TRUSOPT 10 ML OPHTH SOLN) 1 DROP TID EACH EYE Midodrine (PROAMATINE) 7.5 MG 0800,1200,1600 PO Epoetin Tanner-epbx (RETACRIT) 10,000 UNIT TuThSa@2100 IV Loperamide HCl (IMODIUM CAPSULE) 2 MG QID PRN PRN PO Aspirin (ASPIRIN) 81 MG DAILY PO Acetaminophen (TYLENOL) 650 MG Q6H PRN PRN PO Atorvastatin Calcium (LIPITOR) 40 MG BEDTIME PO Albumin Human (ALBUMINAR-25%) 12.5 GM ASDIR PRN IV Heparin Sodium (Porcine) (HEPARIN SODIUM) 3,000 UNIT ASDIR PRN DIALYSIS Lidocaine HCl (LIDOCAINE HCL/PF) 0.5 ML ASDIR PRN I-DERMAL (CKD) Mannitol (Mannitol 20%) 12.5 GM ASDIR PRN IV Sodium Chloride (SODIUM CHLORIDE 0.9%) 2,000 ML ASDIR PRN IV Sodium Chloride (SODIUM CHLORIDE) 5 ML ASDIR PRN IV Sodium Chloride (SODIUM CHLORIDE) 10 ML ASDIR PRN IV Sodium Chloride (SODIUM CHLORIDE 0.9%) 250 ML ASDIR PRN IV Physical ExamGeneral appearance: alert, awake, orientedHead/Eyes: atraumatic, normal conjunctiva/sclera, normal eyelids/periorb.Neck: full range of motionCardiovascular: normal capillary refill, normal heart sounds, regular rate rhythmRespiratory: aerating well, clear to auscultation, symmetric expansion, no distressAbdomen: non-tender, normal bowel sounds, soft, no distentionExtremities: no edemaNeuro/CREDENTIALS SPECIALIST: alert, oriented X 3Ulcer: Type/cause: diabetic (right heel ulcer), arterial Location: foot, heel Laterality: bilateralPsychiatry: depressed ResultsFindings/Data:Laboratory Tests 07/23 07/23 09 0258 Chemistry Sodium (134 - 147 mEq/L) 134 Potassium (3.4 - 5.0 mEq/L) 4.1 Chloride (100 - 108 mEq/L) 98 L Carbon Dioxide (21 - 33 mEq/l) 29 Anion Gap (0 - 20) 11 BUN (7 - 25 mg/dL) 15 Creatinine (0.6 - 1.3 mg/dL) 1.9 H Glomerular Filtr Rate (80 - 90) 28.8 L Glucose (77 - 141 mg/dL) 215 H POC Glucose (70 - 110 MG/DL) 205 H Calcium (8.0 - 10.5 mg/dL) 8.4 Ionized Calcium Stefany (1.09 - 1.30 MMOL/L) 1.11 Phosphorus (2.5 - 4.9 MG/DL) 3.7 Magnesium (1.6 - 2.6 mg/dL) 1.95 Laboratory Tests 07/23 07/22 0258 1333 Hematology WBC (4.5 - 11.0 x10 3/uL) 14.0 H 11.8 H RBC (3.54 - 5.02 x10 6/uL) 2.84 L 2.71 L Hgb (11.0 - 15.0 g/dL) 9.0 L 8.6 L Hct (33.0 - 45.0 %) 28.0 L 26.3 L MCV (81.0 - 99.0 fL) 98.6 97.0 MCH (27.0 - 33.0 pg) 31.7 31.7 MCHC (33.0 - 37.0 g/dL) 32.1 L 32.7 L RDW (11.5 - 14.5 %) 23.7 H 22.6 H Plt Count (150 - 400 x10 3/uL) 203 173 MPV (7.0 - 9.0 fL) 12.3 H 11.9 H Neut % (Auto) (56.0 - 77.0 %) 88.9 H 73.6 Lymph % (Auto) (14.0 - 32.0 %) 5.8 L 8.8 L [place] % (Auto) (4.8 - 9.0 %) 4.6 L 13.4 H Eos % (Auto) (0.3 - 3.7 %) 0.1 L 3.4 Baso % (Auto) (0.0 - 2.0 %) 0.1 0.3 Neut # (Auto) (2.0 - 7.6 x10 3/uL) 12.44 H 8.65 H Lymph # (Auto) (1.0 - 3.8 x10 3/uL) 0.81 L 1.03 [place] # (Auto) (0.1 - 0.8 x10 3/uL) 0.64 1.58 H Eos # (Auto) (0.0 - 0.2 x10 3/uL) 0.01 0.40 H Baso # (Auto) (0.0 - 0.2 x10 3/uL) 0.02 0.03 Abs Immat Gran (auto) (0.00 - 0.03 x10 3/uL) 0.07 H 0.06 H Add Manual Diff NO NO Immature Gran % (0.0 - 2.0 %) 0.5 0.5 Nucleated RBC % (0 - 0 %) 0.4 H 0.3 H Nucleated RBCs # (Man) (0.0 - 0.1 x10 3/uL) 0.05 0.04 Diagnosis, Assessment PlanConsultants: cardiology, cardiovascular surgery, critical/associate professor physician, nephrology Free Text DxA P NotesFree text DxA P notes:68-year-old female with a past medical history of type 1 diabetes from the age of 46 years old, end-stage renal disease, on dialysis since July 2022, hypertension who presented to her inventory management specialist for evaluation of bilateral nonhealing ulcerations of her bilateral heels for the past 3 months, and shortness of breath with exertion. Left heart catheterization showed significant for severe three-vessel coronary artery disease with severe bilateral occluded SFAs of the lower extremity. Issues as below. Suspected urinary tract infectionSevere three-vessel CADSevere peripheral vascular diseaseDiabetes mellitusEnd-stage renal failure on hemodialysis Nonhealing bilateral heel ulcerationsHypertensionHyperlipidemiaCHF Mitral valve regurgitation Plan and recommendations Patient admitted into medicineVital signs every 4PatientAntiplatelets and statin per cardiologySeen by vascular surgery" CT surgery. Nephrology for hemodialysis. Will do basic lab work include CBC BMP now. Patient is not having significant hypoxia at this timeDVT prophylaxisRestart home medicationsDiscussed management plan in detail with patient's family. 07/13/[address] surgery and vascular surgery plansHemodialysis was done yesterdayHemodialysis per nephrologyMonitor renal functionBlood sugar control with insulin pump. 07/14/2023 Fever spike last night blood cultures on empiric antibiotics for possible UTIAntibiotics changedFollow-up on culturesFollow-up on cardiothoracic surgery and oncology recommendations plan to have discussion tomorrowBlood sugars controlledLab work otherwise stableDVT prophylaxisHemodialysis per nephrology 07/15- take over care from another group -- review all lab and image -- she is seen in the stress test lab . no cp no sob -- urine culture --positive continue rocephin iv -- blood culture -- no grow -- stress test -- pending --continue HD as schedule 07/16 High revascularization risk, will be discussed on Tuesday in clinical conference, ejection fraction 28%, viable tissue except apical scar, continue with dialysis, severe peripheral artery disease with heel ulcers, mitral valve regurgitation. 07/17 conference on Tuesday regarding the decision to proceed with revascularization, depressed, wound care to heels, increase midodrine to 10 mg 3times daily in view of persistent hypotension. 07/18 hyponatremic with sodium of 128, on hemodialysis, blood pressure has improved on midodrine, revascularization decision in a.m., daughter is at bedside, wound care. 07/19- no cp no sob -- family are in the room -- conference decision -pending -- continue current management 07/20- she is weak -- no cp -- spoke to cardiology continue monitor in CV1 will present the case in tuesday conference continue medical treatment 07/21- she is seen in the chemical laboratory assistant --PCI /impella -- afternoon -- lab am 07/22- she was transferred to CCU --post procedure -- HB--5.8 -- 2 units blood transfusion --HD -- today -- she is hemodynamic stable -- may dc impella as CV surgeon -- continue monitor in CCU -- family in the room -- answer all question -- review all lab and notes -- case is discussed with nurse 07/23- rest on the bed -- she feel comfortable -- no cp no sob -- H H--9--post transfusion stable -- BP--on low side -- continue monitor in CCU -- review all lab and image at 1456 RPT #:[id number] OF REPORTPRProgress [id number]:00G.[id number] ailable for patient [id number]:56:33 [facility] [place] 2023-07-23 11:12:00 [id number]:12 :00 [facility] ([facility])Critical Care Progress NoteREPORT#:[id number] REPORT STATUS: SignedDATE:07/23/23 TIME: 1112 PATIENT: JOSEPH ROWLEY UNIT #: [id number]#: [id number] [address] [birth year] AGE: 68 SEX: F ATTEND: Tanvir Prasad AUTHOR: Enedelia Chu CNP * ALL edits or amendments must be made on the electronic/computer document * SubjectiveChief complaint:S/p PCI with impella.HPI:Joseph Mccullough is a 68-year-old female with a DM1, HTN, severe cardiomyopathy, HFwith EF of 25% as well as severe MR, ESRD, on dialysis since July 2022, whopresented to her inventory management specialist for evaluation of bilateral nonhealing ulcerationsof her bilateral heels for the past 3 months, and shortness of breath with exertion. She underwent elective coronary and peripheral angiogram on 07/12, which revealed multivessel CAD and severe bilateral PAD. she was then evaluated by Vascular and CT surgery. Patient was deemed not a candidtae for CABG surgery. PCI with impella placement was planned with CVsx on standby. Today patient is transferred to CCU room # 3306 post PCI with impella support via R axillary region. Site has surgical dressing in place, some oozing noted. She is drowsy but easy to arouse, she is following commands. Oxygen via face mask, sats 100%. B/p 107/67 (78), HR 78. Reports pain to surgical site. Objective GeneralVS/I OLast Documented: Result Date Time Pulse Ox 97 07/23 921 O2 Delivery Room air 07/23 921 Temp 97.5 07/23 0400 B/P 119/53 07/23 0400 B/P Mean 76 07/23 0400 Pulse 79 07/23 0400 Resp 20 07/23 0400 O2 Flow Rate 2 07/23 0000 FiO2 36 07/21 2000 24 hour I O ending at 0700: 07/23 0700 07/22 1900 Intake Total 480 825.00 Output Total 2300 Balance 480 -1475.00 Intake, IV 375.00 Intake, Oral 480 100 Intake, 350 Packed Cells Number 0 Bowel Movements Number Voids 0 Output, 2300 Hemodialysis PATIENT WEIGHT: Weight (lb): 159Weight (oz): 6.31Weight (kg): 72.300 Medications:Active Meds + DC'd Last 24 HrsPolyethylene Glycol (MIRALAX) 17 GM DAILY PO Bisacodyl (DULCOLAX) 10 MG DAILY PRN PRN RECTAL Ticagrelor (BRILINTA) 90 MG Q12HR PO Sugammadex Sodium (BRIDION) 0 .STK-MED ONE IV (DC) Cefazolin Sodium (KEFZOL OR ANCEF) 0 .STK-MED ONE .ROUTE (DC) Heparin Sodium (HEPARIN SODIUM) 0 .STK-MED ONE .ROUTE (DC) Fentanyl Citrate (SUBLIMAZE) 0 .STK-MED ONE IV (DC) Dexamethasone Sodium Phosphate (DECADRON) 0 .STK-MED ONE .ROUTE (DC) Etomidate (AMIDATE) 0 .STK-MED ONE IV (DC) Lidocaine HCl (XYLOCAINE) 0 .STK-MED ONE .ROUTE (DC) Ondansetron HCl (ZOFRAN) 0 .STK-MED ONE .ROUTE (DC) Rocuronium [place] (ZEMURON) 0 .STK-MED ONE IV (DC) Succinylcholine Chloride (QUELICIN FLIPTOP) 0 .STK-MED ONE IV (DC) Norepinephrine Bitartrate (NOREPINEPHRINE 8 MG/NS 250 ML) 250 ML .STK-MED ONE IV (DC) Cefazolin Sodium (KEFZOL OR ANCEF) 0 .STK-MED ONE .ROUTE (DC) Dextrose/Water (DEXTROSE 10% IN WATER) 125 ML ASDIR PRN IV (CKD) Dextrose/Water (DEXTROSE 10% IN WATER) 250 ML ASDIR PRN IV (CKD) Glucagon (GLUCAGON) 1 MG ASDIR PRN IM Clopidogrel Bisulfate (Plavix) 75 MG DAILY PO (DC) Senna/Docusate Sodium (SENOKOT S) 1 TAB BID 9A 5P PO Mupirocin (BACTROBAN 2% 22 GM OINTMENT) 1 APPLIC BID NASAL Heparin Sodium (HEPARIN 5000 UNITS/ML) 0 ASDIR PRN IV Heparin Sodium (Porcine) (HEPARIN 25,000 UNITS/ 1/2NS 500ML) 500 ML ASDIR IV (CKD) Sodium Bicarbonate (SODIUM BICARBONATE) 25 ML Q24H IV (CKD) Dextrose/Water (DEXTROSE 5% WATER) 1,000 MLFentanyl Citrate (SUBLIMAZE) 25 MCG Q2H PRN PRN IV Tramadol HCl (ULTRAM) 50 MG Q6H PRN PRN PO Atropine Sulfate (ATROPINE SULFATE 0.1MG/ML SYR) 0.5 MG ASDIR PRN IV Sodium Chloride (SODIUM CHLORIDE 0.9%) 500 ML ASDIR PRN IV Dorzolamide HCl (TRUSOPT 10 ML OPHTH SOLN) 1 DROP TID EACH EYE Midodrine (PROAMATINE) 7.5 MG 0800,1200,1600 PO Epoetin Tanner-epbx (RETACRIT) 10,000 UNIT TuThSa@2100 IV Loperamide HCl (IMODIUM CAPSULE) 2 MG QID PRN PRN PO Aspirin (ASPIRIN) 81 MG DAILY PO Acetaminophen (TYLENOL) 650 MG Q6H PRN PRN PO Atorvastatin Calcium (LIPITOR) 40 MG BEDTIME PO Albumin Human (ALBUMINAR-25%) 12.5 GM ASDIR PRN IV Heparin Sodium (Porcine) (HEPARIN SODIUM) 3,000 UNIT ASDIR PRN DIALYSIS Lidocaine HCl (LIDOCAINE HCL/PF) 0.5 ML ASDIR PRN I-DERMAL (CKD) Mannitol (Mannitol 20%) 12.5 GM ASDIR PRN IV Sodium Chloride (SODIUM CHLORIDE 0.9%) 2,000 ML ASDIR PRN IV Sodium Chloride (SODIUM CHLORIDE) 5 ML ASDIR PRN IV Sodium Chloride (SODIUM CHLORIDE) 10 ML ASDIR PRN IV Sodium Chloride (SODIUM CHLORIDE 0.9%) 250 ML ASDIR PRN IV ResultsFindings/data:Laboratory Tests 07/23 0258 Chemistry Sodium (134 - 147 mEq/L) 134 Potassium (3.4 - 5.0 mEq/L) 4.1 Chloride (100 - 108 mEq/L) 98 L Carbon Dioxide (21 - 33 mEq/l) 29 Anion Gap (0 - 20) 11 BUN (7 - 25 mg/dL) 15 Creatinine (0.6 - 1.3 mg/dL) 1.9 H Glomerular Filtr Rate (80 - 90) 28.8 L Glucose (77 - 141 mg/dL) 215 H POC Glucose (70 - 110 MG/DL) 205 H Calcium (8.0 - 10.5 mg/dL) 8.4 Ionized Calcium Stefany (1.09 - 1.30 MMOL/L) 1.11 Phosphorus (2.5 - 4.9 MG/DL) 3.7 Magnesium (1.6 - 2.6 mg/dL) 1.95 Laboratory Tests 07/23 07/22 0258 1333 Hematology WBC (4.5 - 11.0 x10 3/uL) 14.0 H 11.8 H RBC (3.54 - 5.02 x10 6/uL) 2.84 L 2.71 L Hgb (11.0 - 15.0 g/dL) 9.0 L 8.6 L Hct (33.0 - 45.0 %) 28.0 L 26.3 L MCV (81.0 - 99.0 fL) 98.6 97.0 MCH (27.0 - 33.0 pg) 31.7 31.7 MCHC (33.0 - 37.0 g/dL) 32.1 L 32.7 L RDW (11.5 - 14.5 %) 23.7 H 22.6 H Plt Count (150 - 400 x10 3/uL) 203 173 MPV (7.0 - 9.0 fL) 12.3 H 11.9 H Neut % (Auto) (56.0 - 77.0 %) 88.9 H 73.6 Lymph % (Auto) (14.0 - 32.0 %) 5.8 L 8.8 L [place] % (Auto) (4.8 - 9.0 %) 4.6 L 13.4 H Eos % (Auto) (0.3 - 3.7 %) 0.1 L 3.4 Baso % (Auto) (0.0 - 2.0 %) 0.1 0.3 Neut # (Auto) (2.0 - 7.6 x10 3/uL) 12.44 H 8.65 H Lymph # (Auto) (1.0 - 3.8 x10 3/uL) 0.81 L 1.03 [place] # (Auto) (0.1 - 0.8 x10 3/uL) 0.64 1.58 H Eos # (Auto) (0.0 - 0.2 x10 3/uL) 0.01 0.40 H Baso # (Auto) (0.0 - 0.2 x10 3/uL) 0.02 0.03 Abs Immat Gran (auto) (0.00 - 0.03 x10 3/uL) 0.07 H 0.06 H Add Manual Diff NO NO Immature Gran % (0.0 - 2.0 %) 0.5 0.5 Nucleated RBC % (0 - 0 %) 0.4 H 0.3 H Nucleated RBCs # (Man) (0.0 - 0.1 x10 3/uL) 0.05 0.04 Laboratory Tests 07/23/23 0258:[Embedded Image Not Available] 07/22/23 1333:[Embedded Image Not Available] Free Text Obj NotesFree Text Obj Notes:Physical ExamGeneral appearance: alert, awakeNeck: non-tender, no JVDCardiovascular: CV assessment: regular rate and rhythm Murmur assessment:heart murmurRespiratory: on oxygen, no distressAbdomen: soft, non-tender, normal bowel sounds, no distentionGenitourinary: no flank pain, no urinary catheterUpper extremity: UE assessment: Impella in placeLower extremity: LE assessment: abnormal pedal pulse, abnormal peripheral pulseMusculoskeletal: normal inspectionNeuro/CREDENTIALS SPECIALIST: alert, oriented X 3, normal speechSkin: right heel ulcerUlcer: Type/cause: diabetic (right heel ulcer), arterial Location: foot, heel Laterality: bilateralPsychiatry: normal affect, normal mood Diagnosis, Assessment PlanFree text A P:Joseph Mccullough is a 68-year-old female with a DM1, HTN, severe cardiomyopathy, HFwith EF of 25% as well as severe MR, ESRD, on dialysis since July 2022, whopresented to her inventory management specialist for evaluation of bilateral nonhealing ulcerationsof her bilateral heels for the past 3 months, and shortness of breath with exertion. She underwent elective coronary and peripheral angiogram on 07/12, which revealed multivessel CAD and severe bilateral PAD. she was then evaluated by Vascular and CT surgery. Patient was deemed not a candidtae for CABG surgery. PCI with impella placement was planned with CVsx on standby. Patient is transferred to CCU room # 3306 post PCI with impella support via R axillary region. Site has surgical dressing in place, some oozing noted. She is drowsy but easy to arouse, she is following commands. Oxygen via face mask, [id number]%. B/p 107/67 (78), HR 78. Reports pain to surgical site. Plan:07/23/2023 Seen and examined. Neuro:AO x3, no distressAt baselineJudicious pain control CV:Mitral regurgitation, severe ischemic cardiomyopathyCAD, multivessel disease - S/P Impella 5.5 protected PCI to LCx, mid LAD, proximal LAD to the left main07/22 DC ImpellaLimited echo done, result notedOn aspirin, statin, BrilintaContinue midodrineSevere PAD with nonhealing foot ulcers - Vascular surgeon consulted, pending recsCardio, vascular and CTS following Resp:Saturating well on room airSupplemental oxygen to keep saturation more than 92% GI/Endo:DEVHzqV6P 7.5Glycemic controlDM 1 - patient has her own insulin pump, glucochecks ACHSSilver Gateel care :ESRD, on HD - HD per nephrologyRight Tessio HD catheter in placeMonitor renal function, I O, weigh dailyMonitor electrolytes and replete as neededNephro following Heme/ID:AfebrileLeukocytosisOn Retacrit Monitor CBC and transfuse as needed Musc:Skin carePressure injury prevention PT/OTDVT prophylaxis: SCDDispo: CCU. Patient is full code. I spent 38 minutes of critical care reviewing labs, imaging and discussing plan of care with ICC team, patient, family and nurse.Consultants: cardiology, cardiovascular surgery, critical/associate professor physician, nephrologyCode status: full codePlan discussed with: patient, family, nurse, interdisc care teamCritical care time: Minutes: 38 at 1613 RPT #:[id number] OF REPORTPRProgress [id number]:12:[id number] ailable for patient [id number]:13:30 [facility] [place] 2023-07-23 10:40:00 [id number]/++[id number]/eHU [id number]:40 :00 [facility] ProgREPORT#:[id number] REPORT STATUS: SignedREPORT INITIALIZATION DATE:07/23/23 TIME: 104 PATIENT: JOSEPH ROWLEY UNIT #: [id number]#: [id number] [address] [birth year] AGE: 68 SEX: F ATTEND: Tanvir Prasad AUTHOR: Trudy Colindres PhysicREPT SERVICE DT/TIME: 07/23/23 1040* ALL edits or amendments must be made on the electronic/computer document * GeneralPost-op: day 1 SubjectiveChief complaint:CAD, eval for CABGPVD nonhealing lower extremity ulcersImpella removed yesterday Review of SystemsConstitutional:Denies: fever, generalized weakness. Skin:Denies: rash, swelling. Allergy/Immun:Denies: itching, rhinorrhea. Eyes:Denies: itching, diplopia. Respiratory:Denies: VICENTE (dyspnea on exertion), hemoptysis. Cardiovascular:Denies: VICENTE (dyspnea on exertion), edema. GI:Denies: constipation, diarrhea. :Denies: dysuria, hematuria. Musculoskeletal:Denies: joint pain, joint swelling. Heme:Denies: bleeding, bruising. Endocrine:Denies: polydipsia, polyuria. Neuro:Denies: confusion, dizziness. All systems rev neg: except as marked Objective GeneralVS/I OLast Documented: Result Date Time Pulse Ox 97 07/23 921 O2 Delivery Room air 07/23 921 Temp 97.5 07/23 0400 B/P 119/53 07/23 0400 B/P Mean 76 07/23 0400 Pulse 79 07/23 0400 Resp 20 07/23 0400 O2 Flow Rate 2 07/23 0000 FiO2 36 07/21 2000 24 hour I O ending at 0700: 07/23 0700 07/22 1900 Intake Total 480 825.00 Output Total 2300 Balance 480 -1475.00 Intake, IV 375.00 Intake, Oral 480 100 Intake, 350 Packed Cells Number 0 Bowel Movements Number Voids 0 Output, 2300 Hemodialysis PATIENT WEIGHT: Weight (lb): 159Weight (oz): 6.31Weight (kg): 72.300 Physical ExamGeneral appearance: alert, awake, orientedHEENT: anicteric, mucosal membranes moistCardiovascular: BP/pulses equal bilat., regular rate rhythmRespiratory: aerating well, clear to auscultationAbdomen: soft, non-tenderExtremities: dry, moves allMusculoskeletal: full range of motion, painless range of motionNeuro/CREDENTIALS SPECIALIST: alert, oriented X 3Skin: dry, intactUlcer: Type/cause: diabetic (right heel ulcer), arterial Location: foot, heel Laterality: bilateral Diagnosis, Assessment PlanHospital course to date: This is a very pleasant 68-year-old female with a past medical history of type 1diabetes from the age of 46 years old, end-stage renal disease, on dialysis sinceSeptember 2021, hypertension who presented to her inventory management specialist for evaluation ofbilateral nonhealing ulcerations of her bilateral heels for the past 3 months, and shortness of breath with exertion. Her last echocardiogram was completed with her inventory management specialist showing an EF 20-25%with mild LVH, severe global hypokinesis, mildly dilated left atrium with moderate aortic sclerosis without stenosis, mitral valve leaflets mildly thickened with severe MR, mild to moderate TR, moderate pulmonary hypertension with an RV systolic pressure 62 mmHg. Patient underwent left heart catheterization today and was found to have severe three-vessel coronary artery disease, with severe bilateral occluded SFAs of thelower extremity. CV surgery consulted for evaluation for coronary artery bypass graft surgery Assessment/plan1. Severe three-vessel CAD2. Type I diabetic3. Severe peripheral vascular disease4. Nonhealing bilateral heel ulcerations5. Hypertension6. Hyperlipidemia7. CHF Documented EF 20-25% in the outpatient setting . Mitral valve regurgitation Noted to be severe on echocardiogram from March 2023 in the outpatient setting Patient with severe multivessel CAD. Patient will be worked up for CAD, Further recs to follow. Thank you for this consult. 07/12/23 Echo Left ventricle: The cavity size is normal. Wall thickness is normal. Systolic function is severely reduced. The estimated ejection fraction is 30-34%. Severe diffuse hypokinesis. Doppler parameters are consistent with restrictive physiology, indicative of decreased left ventricular diastolic compliance and/or increased left atrial pressure. Average global longitudinal strain is -5.7.2. Right ventricle: Systolic function is mildly to moderately reduced. Systolic pressure is severely increased.3. Left atrium: The atrium is dilated. The end-systolic volume index (A-L) is 50 ml/m 2.4. Mitral valve: The annulus is calcified. Prolapse cannot be excluded. There is moderate to severe regurgitation, directed posteriorly and along the left atrial wall. The effective regurgitant orifice (PISA) is 0.39 cm 2. The regurgitant volume (PISA) is 46 ml.5. Tricuspid valve: Estimated right ventricular systolic pressure is 76 mmHg. There is moderate-severe regurgitation directed toward the septum.6. Pericardium, extracardiac: There is a large left pleural effusion.7. Inferior vena cava: The vessel is dilated. The respirophasic diameter changes are blunted (< 50%). Inferior vena cava diameter measures 2.2 cm. 07/13/23Patinet resting comfortable, Denies any new complaints. On room air. Sinus rhythm. AAO x 3Cardiac workup still underway. CTA head, abdomena nd pelvis ordered by cardiology. Patient will be presented in the high risk cardiology conference. Further recs to follow. 07/14/23Patient resting comfortable,Denies chest painsComplains of bilateral heel ulcerationsSinus rhythmOn room airCarotid Doppler showed no carotid artery stenosisPatient is considered high risk due to multiple comorbidities, ESRD, CHF, DMPatient will be discussed in the high risk conferenceFurther recommendations toPatient was seen with Dr. Sousa 07/15/23Patient resting comfortableDenies complaints, denies chest painsRemains on room airSinus rhythmPatient underwent viability study today. Pending resultsOn dialysis, followed by renalPatient STS score estimated at 50%Further recommendations to follow 07/16/23Patient resting comfortable, denies chest painNo new complaintsRemains on room airSinus rhythmPending viability study results.Dialysis per renal.Patient will be discussed in the high risk conference next week. 07/17/23Patient resting comfortable, No complaints. Remains sinus rhythm. on room air. Viability study completed EF 28%Dialysis as per renalMedical management as per cardiologyPatient will be discussed in high risk conference next week. 07/18/23Patient resting comfortableDenies chest painsOn room airDialysis planned for todayRemains sinus rhythmAnemia managed per nephrologyPatient will be discussed in the high risk cardiology conferenceFurther recommendations to follow 07/19/23Patient resting comfortable. Denies chest pains. AAO x 3on room air. Dialysis yesterday. 07/21/23Impella placed by Dr. Lyon for high risk PCI 07/22/23Impella removed 07/23/23Patient resting comfortableDenies complaintsImpella removed yesterday by Dr. Lyon.Vital signs stableSurgical site clean and dry. No hematomaNo right arm pain. Right arm appears well perfusedContinue PT/OTFurther medical management as per cardiology recommendationsPatient was seen and examined by Dr. Lyon Free Text A P:This is a very pleasant 68-year-old female with a past medical history of type 1diabetes from the age of 46 years old, end-stage renal disease, on dialysis sinceSeptember 2021, hypertension who presented to her inventory management specialist for evaluation ofbilateral nonhealing ulcerations of her bilateral heels for the past 3 months, and shortness of breath with exertion. Her last echocardiogram was completed with her inventory management specialist showing an EF 20-25%with mild LVH, severe global hypokinesis, mildly dilated left atrium with moderate aortic sclerosis without stenosis, mitral valve leaflets mildly thickened with severe MR, mild to moderate TR, moderate pulmonary hypertension with an RV systolic pressure 62 mmHg. Patient underwent left heart catheterization today and was found to have severe three-vessel coronary artery disease, with severe bilateral occluded SFAs of thelower extremity. CV surgery consulted for evaluation for coronary artery bypass graft surgery Assessment/plan1. Severe three-vessel CAD2. Type I diabetic3. Severe peripheral vascular disease4. Nonhealing bilateral heel ulcerations5. Hypertension6. Hyperlipidemia7. CHF Documented EF 20-25% in the outpatient setting . Mitral valve regurgitation Noted to be severe on echocardiogram from March 2023 in the outpatient setting Patient with severe multivessel CAD. Patient will be worked up for CAD, Further recs to follow. Thank you for this consult. 07/12/23 Echo Left ventricle: The cavity size is normal. Wall thickness is normal. Systolic function is severely reduced. The estimated ejection fraction is 30-34%. Severe diffuse hypokinesis. Doppler parameters are consistent with restrictive physiology, indicative of decreased left ventricular diastolic compliance and/or increased left atrial pressure. Average global longitudinal strain is -5.7.2. Right ventricle: Systolic function is mildly to moderately reduced. Systolic pressure is severely increased.3. Left atrium: The atrium is dilated. The end-systolic volume index (A-L) is 50 ml/m 2.4. Mitral valve: The annulus is calcified. Prolapse cannot be excluded. There is moderate to severe regurgitation, directed posteriorly and along the left atrial wall. The effective regurgitant orifice (PISA) is 0.39 cm 2. The regurgitant volume (PISA) is 46 ml.5. Tricuspid valve: Estimated right ventricular systolic pressure is 76 mmHg. There is moderate-severe regurgitation directed toward the septum.6. Pericardium, extracardiac: There is a large left pleural effusion.7. Inferior vena cava: The vessel is dilated. The respirophasic diameter changes are blunted (< 50%). Inferior vena cava diameter measures 2.2 cm. 07/13/23Patinet resting comfortable, Denies any new complaints. On room air. Sinus rhythm. AAO x 3Cardiac workup still underway. CTA head, abdomena nd pelvis ordered by cardiology. Patient will be presented in the high risk cardiology conference. Further recs to follow. 07/14/23Patient resting comfortable,Denies chest painsComplains of bilateral heel ulcerationsSinus rhythmOn room airCarotid Doppler showed no carotid artery stenosisPatient is considered high risk due to multiple comorbidities, ESRD, CHF, DMPatient will be discussed in the high risk conferenceFurther recommendations toPatient was seen with Dr. Sousa 07/15/23Patient resting comfortableDenies complaints, denies chest painsRemains on room airSinus rhythmPatient underwent viability study today. Pending resultsOn dialysis, followed by renalPatient STS score estimated at 50%Further recommendations to follow 07/16/23Patient resting comfortable, denies chest painNo new complaintsRemains on room airSinus rhythmPending viability study results.Dialysis per renal.Patient will be discussed in the high risk conference next week. 07/17/23Patient resting comfortable, No complaints. Remains sinus rhythm. on room air. Viability study completed EF 28%Dialysis as per renalMedical management as per cardiologyPatient will be discussed in high risk conference next week. 07/18/23Patient resting comfortableDenies chest painsOn room airDialysis planned for todayRemains sinus rhythmAnemia managed per nephrologyPatient will be discussed in the high risk cardiology conferenceFurther recommendations to follow 07/19/23Patient resting comfortableDenies chest painsComplains of heel painsOn room airSinus rhythmPatient was seen and examined with Dr. Lyon.Patient is high risk for surgical intervention.Dr. Lyon will discuss with cardiology and patient will be discussed in the high risk cardiology conference this week. 07/20/23Patient resting comfortableNo new complaintsOn room airSinus rhythmBilateral heel ulcers. Vascular followingPatient will be discussed in the high risk cardiology conference on TuesdayPatient seen and examined with Dr. Lyon 07/21/23Patient resting comfortable.Denies chest pains. ON room air. sinus rhythm. Wound care follwoing bilateral heal ulcers. Vascular follwoing. Planned for possible PCI today with Impella planned for today. CV surgery will be on standbyPatient considered high risk for CABG surgery. Patient seen and examined at [facility] 07/22/23Patient resting comfortable. Denies chest pains.Impella in place. Turned down to P2BP stable. Vitals stable. Received 2 units of blood todayOn room air. Plans for impella removal today. Patient was seen and examined by Dr. Lyon 07/23/23Patient resting comfortableStatus post Impella removal yesterday.Vital signs stableRight hand warm, full movementPalpable radial pulseNo motor deficitsSurgical site clean and dry. No hematomaPatient was seen and examined by Dr. Cisse medical management as per cardiologyConsultants: cardiology, nephrology at 1233 at 1650 RPT #:[id number] OF REPORTPRProgress fimy8955-67-28D92:40:00G.[id number] ailable for patient swjoIALOMSPFBYAQPD0595-76-05J88:35:20 [facility] [place] 2023-07-23 08:55:00 [id number]/Zx2EIabC Fx+5QD K1WchXBRk/mZSVrMmew1kXvz48erCl2160-63-73F18:55 :00 [facility]Card[facility] Progress NoteREPORT#:[id number] REPORT STATUS: SignedDATE:07/23/23 TIME: 854 PATIENT: JOSEPH ROWLEY UNIT #: [id number]#: [id number] [address] [birth year] AGE: 68 SEX: F ATTEND: Tanvir Prasad AUTHOR: Brandy Doyle MD * ALL edits or amendments must be made on the electronic/computer document * Subjective Free Text Subj NotesFree Text Subj Notes:Cardiology progress note Date of service: 3Chief complaint/reason for consult: CAD CHF PCIPatient seen and examined, chart reviewed, questions/concerns addressed with RN.Current medication and vitals reviewed. HPI and interval Hx: Denies any chest pain or shortness of breath. Impella explanted. Subjective: No chest pain or shortness of breath Objective:Vital Signs Date Temp Pulse Resp B/P B/P Mean Pulse Ox FiO2 07/22-07/23 97.5-97.7 64-81 11-26 77-150/38-73 55-88 89-100 GEN: Alert and cooperative, no acute distress.HEENT: NC/AT, EOMICARD: RRR, normal S1/S2, no R/M/G appreciatedLUNGS: CTA w/o added sounds, GBAE.ABD: Soft, nondistended, nontender. Intact BS Assessment, Impression and medical decision making:-Severe multivessel coronary disease with ischemic cardiomyopathy, NSTEMI, chronic combined congestive heart failure status post high risk Impella supported multivessel PCI to left mid LAD/LCx Plan/recommendation:-Hemodynamically stable post Impella explant-Continue with aspirin Brilinta and hypertensive statin-We will initiate GDMT with beta-blockers and PONCHO inhibitors/ARB once blood pressure stable. at 0706 RPT #:[id number] OF REPORTPRProgress emhz5770-86-40W96:55:00G.[id number] ailable for patient dflwXKDTMGMGCVAUSH9862-99-80T15:06:44 [facility] [place] 2023-07-22 18:52:00 [id number] 7G2nYM vEf+GzDBFUatdZydQBUWZdul3ZWRTq2573-18-17F97:52 :[id number] [address] PATIENT NAME: JOSEPH ROWLEY ADMIT DATE: 07/12/23ACCOUNT NO: [id number] ROOM NO: [facility] AGE: 68 REPORT TYPE: OPERATIVE REPORT SEX: F ADMITTING PHYSICIAN:Tanvir Prasad MD ATTENDING PHYSICIAN:Tanvir Prasad MD OPERATION DATE: 07/22/2023 PREOPERATIVE DIAGNOSES:1. Coronary artery disease.2. Peripheral vascular disease.3. Status post percutaneous coronary intervention with Impella backup via the right axillary artery cutdown. POSTOPERATIVE DIAGNOSES:1. Coronary artery disease.2. Peripheral vascular disease.3. Status post percutaneous coronary intervention with Impella backup via the right axillary artery cutdown. PROCEDURES:1. Explantation of the Impella.2. Excision of the chimney graft to the right axillary artery. SURGEON: Miguel Lyon MD [employer]: Ovidio Byrne. ANESTHESIOLOGIST: Dr. Lizama. ANESTHESIA: General endotracheal anesthesia. ESTIMATED BLOOD LOSS: 5 mL INDICATIONS: Ms. Rowley is a 68-year-old vasculopath with cardiomyopathy and severe coronary artery disease involving the left main. She had Impella backedPCI yesterday. The patient is hemodynamically stable and then decision was madeto remove the Impella. The patient was brought to the operating room today for explantation of the Impella. FINDINGS:1. Impella was discontinued without any hemodynamic compromise.2. The patient had good pulses in the right radial artery at the end of the case. PROCEDURE IN DETAIL: Ms. Rowley was identified in the preoperative holding areaand brought to the operating room and placed supine on the operating table. After induction of general endotracheal anesthesia, the right infraclavicular region was prepped and draped in standard surgical fashion. The Impella was PATIENT NAME: JOSEPH ROWLEY then turned off and pulled back into the chimney graft. Next, the connector wasdisconnected from the chimney graft and the Impella was taken out completely andhanded off the table. Next, a right angle clamp was placed just distal to the chimney graft anastomosis to the axillary artery, this was then tied. The redundant graft was excised and chimney graft was flushed to remove any clot. The graft was then tied with #1 silk and reinforced with 4-0 Prolene suture. Hemostasis was achieved. The patient had good pulses in the right radial artery. The incision was then closed in layers using #1 Vicryl for the pectoralis muscle, 2-0 Vicryl for subcutaneous tissue and 4-0 Vicryl for the skin. The patient was transferred to intensive care unit, intubated in stable condition. Dictated By: Miguel Lyon MD Date Dictated: 07/22/2023 18:52:20Date Transcribed: 07/23/2023 00:25:59AC/SVRJob #: [id number] ID: [id number] by Frida Lyon MD On 07/28/2023 07:26:31 PM at 0726 PATIENT NAME: JOSEPH ROWLEY rgbyzv0617-22-44F05:25:00G.[id number] vailable for patient cykyBADLSSYSYMZUBR8241-00-39N56:01:03 [facility] [place] 2023-07-22 18:40:00 [id number] 12N7xH V0IuXbJIWQ5Ou7wNkUALZkVSslHUlD6981-26-95G76:40 :00 [facility] ([facility])Brief Op NoteREPORT#:[id number] REPORT STATUS: SignedDATE:07/22/23 TIME: 1839 PATIENT: JOSEPH ROWLEY UNIT #: [id number]#: [id number] [address] [birth year] AGE: 68 SEX: F ATTEND: Tanvir Prasad AUTHOR: Miguel Lyon MD * ALL edits or amendments must be made on the electronic/computer document * Op/Inv Proc Note - BriefPre-procedure diagnosis:CADPVDs/p CP impella via right axillary arteryPost-procedure diagnosis: same as pre procedure dxProcedures performed:Explantation of CP ImpellaExcision of the chimney graft to axillary arteryPrimary Surgeon:SonaliAssistant(s): Ovidio ByrneFindings:Good radual pulses at the end of the caseComplications: noneEstimated blood loss in ml's: 5 ccSpecimens removed/altered: CP Impella at 1845 RPT #:[id number] OF REPORTOPOperative mbzbpb2022-64-73R26:40:00G.[id number] Available for patient fozdVOPIPMBQLBTEAZ7069-93-88D43:45:39 [facility] [place] 2023-07-22 13:53:00 [id number]/C8W//hdy45R WXpaa2 tW8HIifmRHcugiUATSiNvBNN6FvCuZ9100-31-99V06:53 :[id number] [place] [address] PATIENT NAME: JOSEPH ROWLEY ADMIT DATE: 07/12/23ACCOUNT NO: [id number] ROOM NO: G.3306 AGE: 68 REPORT TYPE: eECHOCARDIOGRAM REPORT SEX: F ADMITTING PHYSICIAN:Tanvir Prasad MD ATTENDING PHYSICIAN:Tanvir Prasad MD *[place], [place] [address]Phone: Ssl: [phone] Limited Transthoracic Echocardiogram Patient: Laura Rowley Date: 07/22/2023 BP: 88 / 44 [id number] 1955 Age: 68 Height: 46 in / 116.8 cmAccession#: [id number] Gender: F Weight: 158.7 lb / 72.1 kgBMI/BSA: 52.8 kg/m 2 / 1.4 m 2 *Ordering Physician: * Darrel Jang *Interpreting Physician: * Ed Delaney MD*Vice President And Portfolio Manager: * Sulma Parada Indications: IMPELLA PLACEMENT. Study data: Transthoracic echocardiogram, limited study. Procedure:Transthoracic echocardiography was performed. Image quality wasadequate. Limited 2D and limited spectral Doppler. Location: Bedside. Patient status: Inpatient. Patient room number: 3306. Study status:Routine. Findings Left ventricle: The cavity size is normal. Wall thickness is normal.Systolic function is mildly to moderately reduced. The estimatedejection fraction is 40-44%.Right ventricle: The cavity size is normal. Systolic function is mildlyto moderately reduced. Systolic pressure is moderately to severelyincreased.PATIENT NAME: JOSEPH ROWLEY Left atrium: The atrium is dilated.Right atrium: The atrium is normal in size.Aorta: Aortic root: The aortic root is normal in size.Aortic valve: The valve is structurally normal. The valve istrileaflet. There is no evidence of stenosis.Mitral valve: The valve is structurally normal. There is noevidence of stenosis. There is mild to moderate regurgitation.Tricuspid valve: The valve is structurally normal. Estimated rightventricular systolic pressure is 66 mmHg. There is moderate-severeregurgitation.Pulmonic valve: The valve is structurally normal.Pericardium: There is no pericardial effusion.Systemic veins:Inferior vena cava: The vessel is normal in size. Inferior vena cavadiameter measures 16 mm. Measurements Left ventricle Value Ref DONNA, LAX 4.6 cm 3.8 - 5.2 ESD, LAX 3.8 cm 2.2 - 3.5 ESD/bsa, LAX 2.7 cm/m 2 1.3 - 2.1 FS, LAX 18 % 27 - 45 ESD/bsa major ax, A4C 4.8 cm/m 2 --------- DONNA/bsa minor ax, A4C 4.8 cm/m 2 --------- DONNA major ax, A2C 7.3 cm --------- DONNA/bsa major ax, A2C 5.2 cm/m 2 --------- PW, ED 1.2 cm 0.6 - 0.9 IVS/PW, ED 0.97 --------- EF 37 % 54 - 74 Ventricular septum Value Ref IVS, ED 1.2 cm 0.6 - 0.9 Right ventricle Value Ref DONNA, LAX 3.4 cm --------- Pressure, S 58 mm Hg --------- Left atrium Value Ref Vol/bsa, ES, 1-p A4C 71 ml/m 2 11 - 40 Vol, ES, 2-p 103 ml --------- Vol/bsa, ES, 2-p 73 ml/m 2 16 - 34 Vol/bsa, ES, A/L 75 ml/m 2 16 - 34 AP dim, ES MM 4.2 cm 2.7 - 3.8 LA/Ao root ratio, MM 1.41 --------- Aortic valve Value Ref Leaflet sep, MM 1.50 cm --------- Mitral valve Value Ref E-septal separation 0.9 cm --------- E-F slope 0.05 m/sec --------- PATIENT NAME: JOSEPH ROWLEY Tricuspid valve Value Ref TR peak v 3.45 m/sec <=2.8 Peak RV-RA grad, S 48 mm Hg --------- Aortic root Value Ref Root diam, ED MM 2.97 cm --------- Pulmonary artery Value Ref Pressure, S 57.5 mm Hg --------- Systemic veins Value Ref Estimated CVP 10 mm Hg --------- Conclusions Summary: 1. Left ventricle: The cavity size is normal. Wall thickness is normal. IMPELLA catheter is in place and it measurs 3.4 cm from aortic annulus. Systolic function is mildly to moderately reduced. The estimated ejection fraction is 40-44%.2. Right ventricle: Systolic function is mildly to moderately reduced. Systolic pressure is moderately to severely increased.3. Left atrium: The atrium is dilated.4. Mitral valve: There is mild to moderate regurgitation.5. Tricuspid valve: There is moderate-severe regurgitation. Prepared and electronically signed by Ed Delaney MD07/22/2023 13:52 at 1353 PATIENT NAME: JOSEPH ROWLEY :5 3:00G.[id number] for patient dgscWXSCPQEGLLKVHI0456-12-87C70:53:39 [facility] 2023-07-22 13:46:00 [id number]/EtOuoVAna/O6 Eu37Vh OQpKToAW15jBOMiaVqLqp8/JvuWzuJ4887-94-09E18:46 :00 [facility]oCardiology Progress NoteREPORT#:[id number] REPORT STATUS: SignedDATE:07/22/23 TIME: 1346 PATIENT: JOSEPH ROWLEY UNIT #: [id number]#: [id number] ROOM[address]BED: [address]: [birth year] AGE: 68 SEX: F ATTEND: Tanvir Prasad Juliane MDADM AUTHOR: Yue Braragan AGACNP * ALL edits or amendments must be made on the electronic/computer document * See AddendumYue Barragan 07/22/23 1346:SubjectiveComments:Doing well post PCI. Objective GeneralVS/I O:24 hour I O ending at 0700: 07/22 0700 07/21 1900 Intake Total 350 Output Total Balance 350 Intake, 350 Packed Cells Patient 72.3 kg Weight Weight Bed scale Measurement Method Vital Signs: Date Time Temp Pulse Resp B/P B/P Pulse O2 O2 Flow FiO2 Mean Ox Delivery Rate 07/22 1100 71 25 98/42 60 93 09/08 1030 71 17 137/52 76 100 09/08 1009 96 Nasal 4 cannula /08 1000 67 16 132/50 73 100 09/08 0930 67 20 150/64 88 100 09/08 0900 66 15 145/64 87 100 09/08 0841 36.4 66 22 120/57 100 09/08 0830 63 23 141/68 87 100 09/08 0817 36.4 63 22 118/51 94 09/08 0803 36.4 63 20 119/57 100 09/08 0800 63 22 119/57 82 100 09/08 0730 Nasal 2 cannula 09/08 0730 68 24 88/44 64 96 09/08 0700 74 24 133/64 85 100 09/08 0645 72 20 128/60 80 100 09/08 0630 74 20 130/61 82 100 09/08 0615 72 15 114/53 72 100 09/08 0600 36.6 74 21 120/54 100 09/08 0600 36.5 74 21 120/54 74 100 09/08 0545 36.5 74 22 119/55 93 09/08 0545 36.5 74 22 119/55 74 93 09/08 0530 72 22 117/52 71 100 09/08 0515 73 16 107/48 66 100 09/08 0500 75 20 115/52 72 100 09/08 0400 36.4 75 12 133/68 89 100 Nasal 4 cannula 09/08 0400 75 12 133/68 88 100 09/08 0330 71 17 117/59 76 100 09/08 0300 71 17 115/58 75 100 09/08 0230 72 17 111/55 71 100 09/08 0200 75 20 120/59 77 100 09/08 0130 76 14 114/59 75 89 09/08 0100 75 21 107/53 68 90 09/08 0030 72 18 113/57 73 100 09/08 0000 36.1 74 16 107/55 72 100 Nasal 4 cannula 09/08 0000 74 16 107/55 70 87 09/07 2330 78 10 131/65 85 100 09/07 2300 79 15 119/59 78 100 09/07 2230 75 23 109/54 71 100 09/07 2200 74 24 112/58 74 100 09/07 2130 73 14 117/59 76 100 09/07 2100 71 24 123/68 84 100 09/07 2030 72 27 117/65 80 100 09/07 2000 4 09/07 1999 73 26 118/69 83 100 09/07 1999 96 Nasal 4 36 cannula 09/07 1930 72 27 114/66 79 100 09/07 1900 71 25 103/66 75 100 09/07 1822 80 21 107/67 79 100 09/07 1816 92/65 73 09/07 1816 81 30 144/87 97 100 PATIENT WEIGHT: Weight (lb): 159Weight (oz): 6.31Weight (kg): 72.300 Medications:Active Meds + DC'd Last 24 HrsDextrose/Water (DEXTROSE 10% IN WATER) 125 ML ASDIR PRN IV (CKD) Dextrose/Water (DEXTROSE 10% IN WATER) 250 ML ASDIR PRN IV (CKD) Glucagon (GLUCAGON) 1 MG ASDIR PRN IM Clopidogrel Bisulfate (Plavix) 75 MG DAILY PO Senna/Docusate Sodium (SENOKOT S) 1 TAB BID 9A 5P PO Mupirocin (BACTROBAN 2% 22 GM OINTMENT) 1 APPLIC BID NASAL Hydrocodone Bitart/Acetaminophen (NORCO 5/325) 1 TAB ONCE ONE PO (DC) Ticagrelor (BRILINTA) 180 MG ONCE ONE PO (DC) Perflutren Lipid Microsphere (Definity) 0 .STK-MED ONE IV (DC) Albumin Human (ALBUMINAR 25%) 100 ML ONCE ONE IV (DC) Heparin Sodium (HEPARIN 5000 UNITS/ML) 0 ASDIR PRN IV Heparin Sodium (Porcine) (HEPARIN 25,000 UNITS/ 1/2NS 500ML) 500 ML ASDIR IV (CKD) Sodium Bicarbonate (SODIUM BICARBONATE) 25 ML Q24H IV (CKD) Dextrose/Water (DEXTROSE 5% WATER) 1,000 MLFentanyl Citrate (SUBLIMAZE) 25 MCG Q2H PRN PRN IV Tramadol HCl (ULTRAM) 50 MG Q6H PRN PRN PO Sodium Bicarbonate (SODIUM BICARBONATE) 25 ML ASDIR IV (DC) Perflutren Lipid Microsphere (Definity) 0 .STK-MED ONE IV (DC) Atropine Sulfate (ATROPINE SULFATE 0.1MG/ML SYR) 0.5 MG ASDIR PRN IV Sodium Chloride (SODIUM CHLORIDE 0.9%) 500 ML ASDIR PRN IV Heparin Sodium (HEPARIN SODIUM) 0 .STK-MED ONE .ROUTE (DC) Fentanyl Citrate (SUBLIMAZE) 100 MCG PACU Q10MIN PRN PRN IV (DC) Fentanyl Citrate (SUBLIMAZE) 50 MCG PACU Q10MIN PRN PRN IV (DC) Hydralazine HCl (APRESOLINE) 5 MG PACU Q10MIN PRN PRN IV (DC) Hydrocodone Bitart/Acetaminophen (NORCO 5/325) 1 TAB PACU ONCE PO (DC) Insulin Human Lispro (HUMALOG) 0 PACU ONCE PRN SUBQ (DC) Labetalol HCl (LABETALOL HCL) 5 MG PACU Q10MIN PRN PRN IV (DC) Meperidine HCl (MEPERIDINE HCL/PF) 12.5 MG PACU ONCE PRN IV (DC) Ondansetron HCl (ZOFRAN) 4 MG PACU ONCE PRN IV (DC) Ropivacaine (NAROPIN 0.5% 150 MG/30mL) 150 MG ASDIR PRN LOCAL (DC) Sodium Chloride (SODIUM CHLORIDE 0.9%) 1,000 ML .Q24H IV (DC) Tramadol HCl (ULTRAM) 50 MG PACU ONCE PO (DC) Dorzolamide HCl (TRUSOPT 10 ML OPHTH SOLN) 1 DROP TID EACH EYE Midodrine (PROAMATINE) 7.5 MG 0800,1200,1600 PO Epoetin Tanner-epbx (RETACRIT) 10,000 UNIT TuThSa@2100 IV Loperamide HCl (IMODIUM CAPSULE) 2 MG QID PRN PRN PO Aspirin (ASPIRIN) 81 MG DAILY PO Acetaminophen (TYLENOL) 650 MG Q6H PRN PRN PO Atorvastatin Calcium (LIPITOR) 40 MG BEDTIME PO Albumin Human (ALBUMINAR-25%) 12.5 GM ASDIR PRN IV Heparin Sodium (Porcine) (HEPARIN SODIUM) 3,000 UNIT ASDIR PRN DIALYSIS Lidocaine HCl (LIDOCAINE HCL/PF) 0.5 ML ASDIR PRN I-DERMAL (CKD) Mannitol (Mannitol 20%) 12.5 GM ASDIR PRN IV Sodium Chloride (SODIUM CHLORIDE 0.9%) 2,000 ML ASDIR PRN IV Sodium Chloride (SODIUM CHLORIDE) 5 ML ASDIR PRN IV Sodium Chloride (SODIUM CHLORIDE) 10 ML ASDIR PRN IV Sodium Chloride (SODIUM CHLORIDE 0.9%) 250 ML ASDIR PRN IV Physical ExamGeneral appearance: alert, awakeNeck: non-tender, no JVDCardiovascular: CV assessment: regular rate and rhythm Murmur assessment:heart murmurRespiratory: on oxygen, no distressAbdomen: soft, non-tender, normal bowel sounds, no distentionGenitourinary: no flank pain, no urinary catheterUpper extremity: UE assessment: Impella in placeLower extremity: LE assessment: abnormal pedal pulse, abnormal peripheral pulseMusculoskeletal: normal inspectionNeuro/CREDENTIALS SPECIALIST: alert, oriented X 3, normal speechSkin: right heel ulcerUlcer: Type/cause: diabetic (right heel ulcer), arterial Location: foot, heel Laterality: bilateralPsychiatry: normal affect, normal mood ResultsFindings/Data:Laboratory Tests 07/21 1604 Blood Gas Puncture Site Central Line O2 Saturation (90 - 100 %) 100.0 ABG pH (7.35 - 7.45) 7.556 *H ABG pCO2 (35.0 - 45 mmHg) 29.3 *L ABG pO2 (80 - 100.0 mmHg) 451.3 *H ABG PO2/FiO2 Ratio (mm/Hg) 451.30 ABG HCO3 (22.0 - 26.0 MMOL/L) 26.0 ABG Total CO2 26.9 ABG Base Excess (-4.0 - 4.0 MMOL/L) 3.7 O2 Delivery Device Adult Vent Vent Mode anesthesia vent. FiO2 (%) 100 Laboratory Tests 07/22 1803 1803 Chemistry Sodium (134 - 147 mEq/L) 129 L 128 L Potassium (3.4 - 5.0 mEq/L) 4.1 4.4 Chloride (100 - 108 mEq/L) 93 L 93 L Carbon Dioxide (21 - 33 mEq/l) 28 25 Anion Gap (0 - 20) 12 14 BUN (7 - 25 mg/dL) 26 H 21 Creatinine (0.6 - 1.3 mg/dL) 2.7 H 2.5 H Glomerular Filtr Rate (80 - 90) 18.9 L 20.7 L Glucose (77 - 141 mg/dL) 176 H 187 H Lactic Acid (0.4 - 1.9 mmol/l) 1.5 2.4 H Calcium (8.0 - 10.5 mg/dL) 7.7 L 7.6 L Ionized Calcium Stefany (1.09 - 1.30 MMOL/L) 1.05 L 1.01 L Phosphorus (2.5 - 4.9 MG/DL) 4.1 3.2 Magnesium (1.6 - 2.6 mg/dL) 1.84 1.88 Laboratory Tests 07/2216 0 8 2233 2024Coagulation INR (0.8 - 1.2) 1.7 H PTT (Ralf) (25.0 - 39.5 Seconds) 29.7 32.6 34.4 55.1 H 126.9 H PT Patient/Control Mix (9.3 - 12.9 19.4 HSECONDS) 07/21 07/21 07/21 07/21 07/21 1557 1515 1503 1445 1431 Coagulation Activated Coag Time (74 - 137 SEC) 287 H 329 H 299 H 263 H 203 H Laboratory Tests 07/22 1803 Hematology WBC (4.5 - 11.0 x10 3/uL) 12.5 H 13.4 H RBC (3.54 - 5.02 x10 6/uL) 1.73 L 2.28 L Hgb (11.0 - 15.0 g/dL) 5.8 *L 7.2 L 7.8 L Hct (33.0 - 45.0 %) 18.8 L 22.2 L 24.5 L MCV (81.0 - 99.0 fL) 108.7 H 107.5 H MCH (27.0 - 33.0 pg) 33.5 H 34.2 H MCHC (33.0 - 37.0 g/dL) 30.9 L 31.8 L RDW (11.5 - 14.5 %) 18.8 H 18.6 H Plt Count (150 - 400 x10 3/uL) 190 248 MPV (7.0 - 9.0 fL) 12.0 H 12.2 H Neut % (Auto) (56.0 - 77.0 %) 78.1 H 78.6 H Lymph % (Auto) (14.0 - 32.0 %) 9.4 L 9.8 L [place] % (Auto) (4.8 - 9.0 %) 9.8 H 9.3 H Eos % (Auto) (0.3 - 3.7 %) 1.8 1.1 Baso % (Auto) (0.0 - 2.0 %) 0.2 0.1 Neut # (Auto) (2.0 - 7.6 x10 3/uL) 9.78 H 10.56 H Lymph # (Auto) (1.0 - 3.8 x10 3/uL) 1.18 1.31 [place] # (Auto) (0.1 - 0.8 x10 3/uL) 1.23 H 1.25 H Eos # (Auto) (0.0 - 0.2 x10 3/uL) 0.23 H 0.15 Baso # (Auto) (0.0 - 0.2 x10 3/uL) 0.02 0.01 Abs Immat Gran (auto) (0.00 - 0.03 x10 3/uL) 0.09 H 0.15 H Add Manual Diff NO NO Immature Gran % (0.0 - 2.0 %) 0.7 1.1 Nucleated RBC % (0 - 0 %) 0.4 H 1.0 H Nucleated RBCs # (Man) (0.0 - 0.1 x10 3/uL) 0.05 0.13 H Laboratory Tests 07/22 07/21 0401 1803 Chemistry Magnesium (1.6 - 2.6 mg/dL) 1.84 1.88 Radiology data:Recent Impressions:RADIOLOGY - XR CHEST 1 V 09/07 2035 Report Impression - Status: SIGNED Entered: 07/21/20232155 IMPRESSION:As above.Impression By: Rolly - Jorgito Novak M.D. Results: labs reviewed, vital signs reviewed, rhythm personally rev'dTelemetry Interpretation:sinus rhythm Diagnosis, Assessment PlanPlan discussed with: patient, family, collaborating MD, nurse Free Text DxA P NotesFree Text DxA P Notes:68 YO female with MHx of IDDM on insulin pump, nonhealing foot ulcers, ESRD on HD MWF, recent diagnosis of severe cardiomyopathy, HFrEF with LVEF of 25% as well as severe MR. She had elective coronary and peripheral angiogram today, which revealed multivessel CAD and severe bilateral PAD. 1. Multivessel CAD* S/p Impella protected PCI to Lcx, then to the mid LAD and then proximal LAD tothe left main using mini crush technique with excellent angiographic results.* wean down Impella to P2. Plan to DC Impella today by CT surgery* Patient is doing well, hemodynamically stable, no pressors needed* anemic hgb 5.8 up to 8.7 after 2 units PRBC* continue Plavix, ASA, statin, will add BB later if BP can handle it* limited echo today 2. Severe PAD with nonhealing foot ulcers* Vascular surgery recommendation noted 3. Mitral regurgitation* moderate to severe MR on TTE with contrast* JULIA reviewed 4. Severe ischemic cardiomyopathy * volume management per HD* on midodrine d/t chronic hypotension* no ACEI or ARB d/t chronic hypotension requiring midodrine* lifevest ordered, will repeat echo post PCI , if LVEF >35% then she does not need lifevest 5. ESRD - on HD* nephrology following 6. IDDM* per primary team Dr. Edgard Umana covering this weekend. MDM by Dr. Pak. Kimberly Pak 07/23/23 1222:Attestations Physician AttestationAgree w/findings plan:I have seen and examined the pt, I Agree with the findings and plan as documented by Yue Barragan. S/p PCI to LM, LAD and LCx.Impella CP through axillary left in place, plan to goto OR today for Impella removal. Switch Plavix to Brilinta. contiue ASA. discussed case with VAscular surgery and plan for surgical revascularization in 2 -3 weeks likely as out pt. at 1408 at 1225 Addendum 1: 07/22/232052 by Yue Barragan switch Plavix to Brilinta 90 mg BID. Patient was loaded with Brilinta 180 mg last night. at 2054 RPT #:[id number] OF REPORTPRProgress fynn3635-20-87D05:46:00G.[id number] ailable for patient hcowEUBAYWMOTRGNLL8605-84-47L00:09:22 [facility] 2023-07-22 13:33:00 [id number]RrK LBvGvB gneGk1j848TxiQqYG1Nk064i8Z0Lof9791-83-69D06:33 :00 [facility] ProgREPORT#:[id number] REPORT STATUS: SignedREPORT INITIALIZATION DATE:07/22/23 TIME: 1332 PATIENT: JOSEPH ROWLEY UNIT #: [id number]#: [id number] [address] [birth year] AGE: 68 SEX: F ATTEND: Tanvir Prasad AUTHOR: Trudy Colindres PhysicREPT SERVICE DT/TIME: 07/22/23 1333* ALL edits or amendments must be made on the electronic/computer document * SubjectiveChief complaint:CAD, eval for CABGPVD nonhealing lower extremity ulcersPCI with Impella yesterday Review of SystemsConstitutional:Denies: fever, generalized weakness. Skin:Denies: rash, swelling. Allergy/Immun:Denies: itching, rhinorrhea. Eyes:Denies: itching, diplopia. Respiratory:Denies: VICENTE (dyspnea on exertion), hemoptysis. Cardiovascular:Denies: VICENTE (dyspnea on exertion), edema. GI:Denies: constipation, diarrhea. :Denies: dysuria, hematuria. Musculoskeletal:Denies: joint pain, joint swelling. Heme:Denies: bleeding, bruising. Endocrine:Denies: polydipsia, polyuria. Neuro:Denies: confusion, dizziness. All systems rev neg: except as marked Objective GeneralVS/I OLast Documented: Result Date Time Pulse Ox 93 07/22 1100 B/P 98/42 07/22 1100 B/P Mean 60 07/22 1100 Pulse 71 07/22 1100 Resp 25 07/22 1100 O2 Delivery Nasal cannula 07/22 1009 O2 Flow Rate 4 07/22 1009 Temp 97.5 07/22 0841 FiO2 36 07/21 2000 24 hour I O ending at 0700: 07/22 0700 07/21 1900 Intake Total 350 Output Total Balance 350 Intake, 350 Packed Cells Patient 72.3 kg Weight Weight Bed scale Measurement Method PATIENT WEIGHT: Weight (lb): 159Weight (oz): 6.31Weight (kg): 72.300 Physical ExamGeneral appearance: alert, awake, orientedHEENT: anicteric, mucosal membranes moistCardiovascular: BP/pulses equal bilat., regular rate rhythmRespiratory: aerating well, clear to auscultationAbdomen: soft, non-tenderExtremities: dry, moves allMusculoskeletal: full range of motion, painless range of motionNeuro/CREDENTIALS SPECIALIST: alert, oriented X 3Skin: dry, intactUlcer: Type/cause: diabetic (right heel ulcer), arterial Location: foot, heel Laterality: bilateral Diagnosis, Assessment PlanHospital course to date: This is a very pleasant 68-year-old female with a past medical history of type 1diabetes from the age of 46 years old, end-stage renal disease, on dialysis sinceSeptember 2021, hypertension who presented to her inventory management specialist for evaluation ofbilateral nonhealing ulcerations of her bilateral heels for the past 3 months, and shortness of breath with exertion. Her last echocardiogram was completed with her inventory management specialist showing an EF 20-25%with mild LVH, severe global hypokinesis, mildly dilated left atrium with moderate aortic sclerosis without stenosis, mitral valve leaflets mildly thickened with severe MR, mild to moderate TR, moderate pulmonary hypertension with an RV systolic pressure 62 mmHg. Patient underwent left heart catheterization today and was found to have severe three-vessel coronary artery disease, with severe bilateral occluded SFAs of thelower extremity. CV surgery consulted for evaluation for coronary artery bypass graft surgery Assessment/plan1. Severe three-vessel CAD2. Type I diabetic3. Severe peripheral vascular disease4. Nonhealing bilateral heel ulcerations5. Hypertension6. Hyperlipidemia7. CHF Documented EF 20-25% in the outpatient setting . Mitral valve regurgitation Noted to be severe on echocardiogram from March 2023 in the outpatient setting Patient with severe multivessel CAD. Patient will be worked up for CAD, Further recs to follow. Thank you for this consult. 07/12/23 Echo Left ventricle: The cavity size is normal. Wall thickness is normal. Systolic function is severely reduced. The estimated ejection fraction is 30-34%. Severe diffuse hypokinesis. Doppler parameters are consistent with restrictive physiology, indicative of decreased left ventricular diastolic compliance and/or increased left atrial pressure. Average global longitudinal strain is -5.7.2. Right ventricle: Systolic function is mildly to moderately reduced. Systolic pressure is severely increased.3. Left atrium: The atrium is dilated. The end-systolic volume index (A-L) is 50 ml/m 2.4. Mitral valve: The annulus is calcified. Prolapse cannot be excluded. There is moderate to severe regurgitation, directed posteriorly and along the left atrial wall. The effective regurgitant orifice (PISA) is 0.39 cm 2. The regurgitant volume (PISA) is 46 ml.5. Tricuspid valve: Estimated right ventricular systolic pressure is 76 mmHg. There is moderate-severe regurgitation directed toward the septum.6. Pericardium, extracardiac: There is a large left pleural effusion.7. Inferior vena cava: The vessel is dilated. The respirophasic diameter changes are blunted (< 50%). Inferior vena cava diameter measures 2.2 cm. 07/13/23Patinet resting comfortable, Denies any new complaints. On room air. Sinus rhythm. AAO x 3Cardiac workup still underway. CTA head, abdomena nd pelvis ordered by cardiology. Patient will be presented in the high risk cardiology conference. Further recs to follow. 07/14/23Patient resting comfortable,Denies chest painsComplains of bilateral heel ulcerationsSinus rhythmOn room airCarotid Doppler showed no carotid artery stenosisPatient is considered high risk due to multiple comorbidities, ESRD, CHF, DMPatient will be discussed in the high risk conferenceFurther recommendations toPatient was seen with Dr. Sousa 07/15/23Patient resting comfortableDenies complaints, denies chest painsRemains on room airSinus rhythmPatient underwent viability study today. Pending resultsOn dialysis, followed by renalPatient STS score estimated at 50%Further recommendations to follow 07/16/23Patient resting comfortable, denies chest painNo new complaintsRemains on room airSinus rhythmPending viability study results.Dialysis per renal.Patient will be discussed in the high risk conference next week. 07/17/23Patient resting comfortable, No complaints. Remains sinus rhythm. on room air. Viability study completed EF 28%Dialysis as per renalMedical management as per cardiologyPatient will be discussed in high risk conference next week. 07/18/23Patient resting comfortableDenies chest painsOn room airDialysis planned for todayRemains sinus rhythmAnemia managed per nephrologyPatient will be discussed in the high risk cardiology conferenceFurther recommendations to follow 07/19/23Patient resting comfortable. Denies chest pains. AAO x 3on room air. Dialysis yesterday. Free Text A P:This is a very pleasant 68-year-old female with a past medical history of type 1diabetes from the age of 46 years old, end-stage renal disease, on dialysis sinceSept2021, hypertension who presented to her inventory management specialist for evaluation ofbilateral nonhealing ulcerations of her bilateral heels for the past 3 months, and shortness of breath with exertion. Her last echocardiogram was completed with her inventory management specialist showing an EF 20-25%with mild LVH, severe global hypokinesis, mildly dilated left atrium with moderate aortic sclerosis without stenosis, mitral valve leaflets mildly thickened with severe MR, mild to moderate TR, moderate pulmonary hypertension with an RV systolic pressure 62 mmHg. Patient underwent left heart catheterization today and was found to have severe three-vessel coronary artery disease, with severe bilateral occluded SFAs of thelower extremity. CV surgery consulted for evaluation for coronary artery bypass graft surgery Assessment/plan1. Severe three-vessel CAD2. Type I diabetic3. Severe peripheral vascular disease4. Nonhealing bilateral heel ulcerations5. Hypertension6. Hyperlipidemia7. CHF Documented EF 20-25% in the outpatient setting . Mitral valve regurgitation Noted to be severe on echocardiogram from March 2023 in the outpatient setting Patient with severe multivessel CAD. Patient will be worked up for CAD, Further recs to follow. Thank you for this consult. 07/12/23 Echo Left ventricle: The cavity size is normal. Wall thickness is normal. Systolic function is severely reduced. The estimated ejection fraction is 30-34%. Severe diffuse hypokinesis. Doppler parameters are consistent with restrictive physiology, indicative of decreased left ventricular diastolic compliance and/or increased left atrial pressure. Average global longitudinal strain is -5.7.2. Right ventricle: Systolic function is mildly to moderately reduced. Systolic pressure is severely increased.3. Left atrium: The atrium is dilated. The end-systolic volume index (A-L) is 50 ml/m 2.4. Mitral valve: The annulus is calcified. Prolapse cannot be excluded. There is moderate to severe regurgitation, directed posteriorly and along the left atrial wall. The effective regurgitant orifice (PISA) is 0.39 cm 2. The regurgitant volume (PISA) is 46 ml.5. Tricuspid valve: Estimated right ventricular systolic pressure is 76 mmHg. There is moderate-severe regurgitation directed toward the septum.6. Pericardium, extracardiac: There is a large left pleural effusion.7. Inferior vena cava: The vessel is dilated. The respirophasic diameter changes are blunted (< 50%). Inferior vena cava diameter measures 2.2 cm. 07/13/23Patinet resting comfortable, Denies any new complaints. On room air. Sinus rhythm. AAO x 3Cardiac workup still underway. CTA head, abdomena nd pelvis ordered by cardiology. Patient will be presented in the high risk cardiology conference. Further recs to follow. 07/14/23Patient resting comfortable,Denies chest painsComplains of bilateral heel ulcerationsSinus rhythmOn room airCarotid Doppler showed no carotid artery stenosisPatient is considered high risk due to multiple comorbidities, ESRD, CHF, DMPatient will be discussed in the high risk conferenceFurther recommendations toPatient was seen with Dr. Sousa 07/15/23Patient resting comfortableDenies complaints, denies chest painsRemains on room airSinus rhythmPatient underwent viability study today. Pending resultsOn dialysis, followed by renalPatient STS score estimated at 50%Further recommendations to follow 07/16/23Patient resting comfortable, denies chest painNo new complaintsRemains on room airSinus rhythmPending viability study results.Dialysis per renal.Patient will be discussed in the high risk conference next week. 07/17/23Patient resting comfortable, No complaints. Remains sinus rhythm. on room air. Viability study completed EF 28%Dialysis as per renalMedical management as per cardiologyPatient will be discussed in high risk conference next week. 07/18/23Patient resting comfortableDenies chest painsOn room airDialysis planned for todayRemains sinus rhythmAnemia managed per nephrologyPatient will be discussed in the high risk cardiology conferenceFurther recommendations to follow 07/19/23Patient resting comfortableDenies chest painsComplains of heel painsOn room airSinus rhythmPatient was seen and examined with Dr. Lyon.Patient is high risk for surgical intervention.Dr. Lyon will discuss with cardiology and patient will be discussed in the high risk cardiology conference this week. 07/20/23Patient resting comfortableNo new complaintsOn room airSinus rhythmBilateral heel ulcers. Vascular followingPatient will be discussed in the high risk cardiology conference on TuesdayPatient seen and examined with Dr. Lyon 07/21/23Patient resting comfortable.Denies chest pains. ON room air. sinus rhythm. Wound care follwoing bilateral heal ulcers. Vascular follwoing. Planned for possible PCI today with Impella planned for today. CV surgery will be on standbyPatient considered high risk for CABG surgery. Patient seen and examined at [facility] 07/22/23Patient resting comfortable. Denies chest pains.Impella in place. Turned down to P2BP stable. Vitals stable. Received 2 units of blood todayOn room air. Plans for impella removal today. Patient was seen and examined by Dr. Lyon Consultants: cardiology, nephrology at 1336 at 1738 RPT #:[id number] OF REPORTPRProgress [id number]:33:00G.[id number] ailable for patient [id number]:37:15 [facility] [place] 2023-07-22 12:10:00 [id number] [id number]:10 :00 [facility] ([facility])Critical Care Progress NoteREPORT#:[id number] REPORT STATUS: SignedDATE:07/22/23 TIME: 1210 PATIENT: JOSEPH ROWLEY UNIT #: [id number]#: [id number] [address] [birth year] AGE: 68 SEX: F ATTEND: Tanvir Prasad [facility] AUTHOR: Fanny Chawla * ALL edits or amendments must be made on the electronic/computer document * SubjectiveChief complaint:S/p PCI with impella.HPI: Joseph Mccullough is a 68-year-old female with a DM1, HTN, severe cardiomyopathy, HFwith EF of 25% as well as severe MR, ESRD, on dialysis since July 2022, whopresented to her inventory management specialist for evaluation of bilateral nonhealing ulcerationsof her bilateral heels for the past 3 months, and shortness of breath with exertion. She underwent elective coronary and peripheral angiogram on 07/12, which revealed multivessel CAD and severe bilateral PAD. she was then evaluated by Vascular and CT surgery. Patient was deemed not a candidtae for CABG surgery. PCI with impella placement was planned with CVsx on standby. Today patient is transferred to CCU room # 3306 post PCI with impella support via R axillary region. Site has surgical dressing in place, some oozing noted. She is drowsy but easy to arouse, she is following commands. Oxygen via face mask, sats 100%. B/p 107/67 (78), HR 78. Reports pain to surgical site. Objective GeneralVS/I OLast Documented: Result Date Time Pulse Ox 93 07/22 1100 B/P 98/42 07/22 1100 B/P Mean 60 07/22 1100 Pulse 71 / 1100 Resp 25 07/22 1100 O2 Delivery Nasal cannula 09/08 1009 O2 Flow Rate 4 07/22 1009 Temp 97.5 07/22 0841 FiO2 36 07/21 2000 24 hour I O ending at 0700: 07/22 0700 07/21 1900 Intake Total 350 Output Total Balance 350 Intake, 350 Packed Cells Patient 72.3 kg Weight Weight Bed scale Measurement Method PATIENT WEIGHT: Weight (lb): 159Weight (oz): 6.31Weight (kg): 72.300 Medications:Active Meds + DC'd Last 24 HrsClopidogrel Bisulfate (Plavix) 75 MG DAILY PO Senna/Docusate Sodium (SENOKOT S) 1 TAB BID 9A 5P PO Mupirocin (BACTROBAN 2% 22 GM OINTMENT) 1 APPLIC BID NASAL Hydrocodone Bitart/Acetaminophen (NORCO 5/325) 1 TAB ONCE ONE PO (DC) Ticagrelor (BRILINTA) 180 MG ONCE ONE PO (DC) Perflutren Lipid Microsphere (Definity) 0 .STK-MED ONE IV (DC) Albumin Human (ALBUMINAR 25%) 100 ML ONCE ONE IV (DC) Heparin Sodium (HEPARIN 5000 UNITS/ML) 0 ASDIR PRN IV Heparin Sodium (Porcine) (HEPARIN 25,000 UNITS/ 1/2NS 500ML) 500 ML ASDIR IV (CKD) Sodium Bicarbonate (SODIUM BICARBONATE) 25 ML Q24H IV (CKD) Dextrose/Water (DEXTROSE 5% WATER) 1,000 MLFentanyl Citrate (SUBLIMAZE) 25 MCG Q2H PRN PRN IV Tramadol HCl (ULTRAM) 50 MG Q6H PRN PRN PO Sodium Bicarbonate (SODIUM BICARBONATE) 25 ML ASDIR IV (DC) Perflutren Lipid Microsphere (Definity) 0 .STK-MED ONE IV (DC) Atropine Sulfate (ATROPINE SULFATE 0.1MG/ML SYR) 0.5 MG ASDIR PRN IV Sodium Chloride (SODIUM CHLORIDE 0.9%) 500 ML ASDIR PRN IV Heparin Sodium (HEPARIN SODIUM) 0 .STK-MED ONE .ROUTE (DC) Heparin Sodium (HEPARIN SODIUM) 0 .STK-MED ONE .ROUTE (DC) Cefazolin Sodium (KEFZOL OR ANCEF) 0 .STK-MED ONE .ROUTE (DC) Clopidogrel Bisulfate (CLOPIDOGREL BISULFATE) 0 .STK-MED ONE .ROUTE (DC) Fentanyl Citrate (SUBLIMAZE) 100 MCG PACU Q10MIN PRN PRN IV (DC) Fentanyl Citrate (SUBLIMAZE) 50 MCG PACU Q10MIN PRN PRN IV (DC) Hydralazine HCl (APRESOLINE) 5 MG PACU Q10MIN PRN PRN IV (DC) Hydrocodone Bitart/Acetaminophen (NORCO 5/325) 1 TAB PACU ONCE PO (DC) Insulin Human Lispro (HUMALOG) 0 PACU ONCE PRN SUBQ (DC) Labetalol HCl (LABETALOL HCL) 5 MG PACU Q10MIN PRN PRN IV (DC) Meperidine HCl (MEPERIDINE HCL/PF) 12.5 MG PACU ONCE PRN IV (DC) Ondansetron HCl (ZOFRAN) 4 MG PACU ONCE PRN IV (DC) Ropivacaine (NAROPIN 0.5% 150 MG/30mL) 150 MG ASDIR PRN LOCAL (DC) Sodium Chloride (SODIUM CHLORIDE 0.9%) 1,000 ML .Q24H IV (DC) Tramadol HCl (ULTRAM) 50 MG PACU ONCE PO (DC) Thrombin (RECOTHROM) 0 .STK-MED ONE TOPICAL (DC) Heparin Sodium (HEPARIN SODIUM) 0 .STK-MED ONE .ROUTE (DC) Fentanyl Citrate (SUBLIMAZE) 0 .STK-MED ONE .ROUTE (DC) Dorzolamide HCl (TRUSOPT 10 ML OPHTH SOLN) 1 DROP TID EACH EYE Midodrine (PROAMATINE) 7.5 MG 0800,1200,1600 PO Epoetin Tanner-epbx (RETACRIT) 10,000 UNIT TuThSa@2100 IV Loperamide HCl (IMODIUM CAPSULE) 2 MG QID PRN PRN PO Aspirin (ASPIRIN) 81 MG DAILY PO Acetaminophen (TYLENOL) 650 MG Q6H PRN PRN PO Atorvastatin Calcium (LIPITOR) 40 MG BEDTIME PO Albumin Human (ALBUMINAR-25%) 12.5 GM ASDIR PRN IV Heparin Sodium (Porcine) (HEPARIN SODIUM) 3,000 UNIT ASDIR PRN DIALYSIS Lidocaine HCl (LIDOCAINE HCL/PF) 0.5 ML ASDIR PRN I-DERMAL (CKD) Mannitol (Mannitol 20%) 12.5 GM ASDIR PRN IV Sodium Chloride (SODIUM CHLORIDE 0.9%) 2,000 ML ASDIR PRN IV Sodium Chloride (SODIUM CHLORIDE) 5 ML ASDIR PRN IV Sodium Chloride (SODIUM CHLORIDE) 10 ML ASDIR PRN IV Sodium Chloride (SODIUM CHLORIDE 0.9%) 250 ML ASDIR PRN IV Physical ExamHead/eyes: atraumatic, clear cornea, normocephalic, bilateral eye surgeryENT: dry mucosal membrane, poor dentitionNeck: full range of motion, non-tender, no JVD, no masses or swellingCardiovascular: decreased cap refill, pedal edema, normal heart sounds, regular rate and rhythm, normal S1/S2, no ectopyRespiratory: decreased breath sounds, symmetric expansion, no distressAbdomen: soft, non-tender, normal bowel soundsGenitourinary: no bladder distention, no flank pain, DTVExtremities: abnormal capillary refill, decreased range of motion, edema, pedal pulsesMusculoskeletal decreased ROM, no muscle spasmNeuro/CREDENTIALS SPECIALIST: alert, no motor deficits, no sensory deficitsSkin: abnormal color, normal temperature, no rashUlcer: Type/cause: diabetic (right heel ulcer), arterial Location: foot, heel Laterality: bilateralWound/incision: Location:Right axillary impella sitePsychiatry: unable to evaluate ResultsFindings/data:Laboratory Tests 07/21 1604 Blood Gas Puncture Site Central Line O2 Saturation (90 - 100 %) 100.0 ABG pH (7.35 - 7.45) 7.556 *H ABG pCO2 (35.0 - 45 mmHg) 29.3 *L ABG pO2 (80 - 100.0 mmHg) 451.3 *H ABG PO2/FiO2 Ratio (mm/Hg) 451.30 ABG HCO3 (22.0 - 26.0 MMOL/L) 26.0 ABG Total CO2 26.9 ABG Base Excess (-4.0 - 4.0 MMOL/L) 3.7 O2 Delivery Device Adult Vent Vent Mode anesthesia vent. FiO2 (%) 100 Laboratory Tests 07/22 1957 1803 1803 Chemistry Sodium (134 - 147 mEq/L) 129 L 128 L Potassium (3.4 - 5.0 mEq/L) 4.1 4.4 Chloride (100 - 108 mEq/L) 93 L 93 L Carbon Dioxide (21 - 33 mEq/l) 28 25 Anion Gap (0 - 20) 12 14 BUN (7 - 25 mg/dL) 26 H 21 Creatinine (0.6 - 1.3 mg/dL) 2.7 H 2.5 H Glomerular Filtr Rate (80 - 90) 18.9 L 20.7 L Glucose (77 - 141 mg/dL) 176 H 187 H Lactic Acid (0.4 - 1.9 mmol/l) 1.5 2.4 H Calcium (8.0 - 10.5 mg/dL) 7.7 L 7.6 L Ionized Calcium Stefany (1.09 - 1.30 MMOL/L) 1.05 L 1.01 L Phosphorus (2.5 - 4.9 MG/DL) 4.1 3.2 Magnesium (1.6 - 2.6 mg/dL) 1.84 1.88 Laboratory Tests 07/22 07/22 07/22 07/21 0916 0400 0018 2233 Coagulation PTT (Ralf) (25.0 - 39.5 Seconds) 29.7 32.6 34.4 55.1 H 07/214 1557 1515 1503Coagulation INR (0.8 - 1.2) 1.7 H PTT (Ralf) (25.0 - 39.5 Seconds) 126.9 H PT Patient/Control Mix (9.3 - 12.9 SECONDS) 19.4 H Activated Coag Time (74 - 137 SEC) 287 H 329 H 299 H 07/21 07/21 1445 1431 Coagulation Activated Coag Time (74 - 137 SEC) 263 H 203 H Laboratory Tests 07/220 5 1803 Hematology WBC (4.5 - 11.0 x10 3/uL) 12.5 H 13.4 H RBC (3.54 - 5.02 x10 6/uL) 1.73 L 2.28 L Hgb (11.0 - 15.0 g/dL) 5.8 *L 7.2 L 7.8 L Hct (33.0 - 45.0 %) 18.8 L 22.2 L 24.5 L MCV (81.0 - 99.0 fL) 108.7 H 107.5 H MCH (27.0 - 33.0 pg) 33.5 H 34.2 H MCHC (33.0 - 37.0 g/dL) 30.9 L 31.8 L RDW (11.5 - 14.5 %) 18.8 H 18.6 H Plt Count (150 - 400 x10 3/uL) 190 248 MPV (7.0 - 9.0 fL) 12.0 H 12.2 H Neut % (Auto) (56.0 - 77.0 %) 78.1 H 78.6 H Lymph % (Auto) (14.0 - 32.0 %) 9.4 L 9.8 L [place] % (Auto) (4.8 - 9.0 %) 9.8 H 9.3 H Eos % (Auto) (0.3 - 3.7 %) 1.8 1.1 Baso % (Auto) (0.0 - 2.0 %) 0.2 0.1 Neut # (Auto) (2.0 - 7.6 x10 3/uL) 9.78 H 10.56 H Lymph # (Auto) (1.0 - 3.8 x10 3/uL) 1.18 1.31 [place] # (Auto) (0.1 - 0.8 x10 3/uL) 1.23 H 1.25 H Eos # (Auto) (0.0 - 0.2 x10 3/uL) 0.23 H 0.15 Baso # (Auto) (0.0 - 0.2 x10 3/uL) 0.02 0.01 Abs Immat Gran (auto) (0.00 - 0.03 x10 3/uL) 0.09 H 0.15 H Add Manual Diff NO NO Immature Gran % (0.0 - 2.0 %) 0.7 1.1 Nucleated RBC % (0 - 0 %) 0.4 H 1.0 H Nucleated RBCs # (Man) (0.0 - 0.1 x10 3/uL) 0.05 0.13 H Laboratory Tests 07/22/23 0401:[Embedded Image Not Available] 07/22/23 040:[Embedded Image Not Available] 07/21/232024:[Embedded Image Not Available] 07/21/23 1803:[Embedded Image Not Available] Radiology dataRecent Impressions:RADIOLOGY - XR CHEST 1 V 07/21 2035 Report Impression - Status: SIGNED Entered: 07/21/20232155 IMPRESSION:As above.Impression By: Bean2 - Jorgito Novak M.D. Results: labs reviewed, vital signs reviewed, rhythm personally rev'd, x-ray personally reviewed, current med profile rev'd Treatment Prophylaxis Treatment ProphylaxisOxygen: nasal cannulaLines: arterial (Right radial), CVC (Right chest), Impella (R axillary)CVC/PICC documentation:The data below has been imported from nursing documentation. Any exceptions have been noted below under Provider comments. CVC/PICC insertion date/time: CVC multi lumen double Internal jugular Right Inserted 07/12/23535 Dialysis catheter double Chest Right Inserted 07/12/23535 Provider comments on imported nursing data: [] Diagnosis, Assessment PlanFree text A P: Joseph Mccullough is a 68-year-old female with a DM1, HTN, severe cardiomyopathy, HFwith EF of 25% as well as severe MR, ESRD, on dialysis since July 2022, whopresented to her inventory management specialist for evaluation of bilateral nonhealing ulcerationsof her bilateral heels for the past 3 months, and shortness of breath with exertion. She underwent elective coronary and peripheral angiogram on 07/12, which revealed multivessel CAD and severe bilateral PAD. she was then evaluated by Vascular and CT surgery. Patient was deemed not a candidtae for CABG surgery. PCI with impella placement was planned with CVsx on standby. 07/21- Patient is transferred to CCU room # 3306 post PCI with impella support viaR axillary region. Site has surgical dressing in place, some oozing noted. She is drowsy but easy to arouse, she is following commands. Oxygen via face mask, sats 100%. B/p 107/67 (78), HR 78. Reports pain to surgical site. 07/22- Seen and examined. Plan:Neuro intact. Pain control- tramadol, fentanylS/p PCI to LAD, L main and Cirx, impella support P2. 2.2L/minPatient will return to OR today for removal of impellaMonitor site for bleeding, hematoma formation. Sand bag applied to site per .Hemoglobin dropped below 7, she is getting 2 units PRBCs with HD. Holding heparin infusionCheck hgb post transfusionECHO shows- Left ventricle ejection fraction is estimated 35%. There is an IMPELLA catheter noted in the left ventricle. Catheter inlet area is approximately 3.3 to 3.5 cm below the aortic valve.Stable b/p. As needed IVF/Colloid resuscitation, latest lactate 1.5Plavix, ASA per surgeryStatinMonitor renal function, she is on HD, renal on boardHyponatremic- ranging from 128-133, monitorNPO at present for procedure. Patient has own insulin pumpShe received 5-day course of rocephin for Klebsiella PneumoniaePT/OT and wound care.DVT ppx: Holding d/t drop in hemoglobinDispo: CCU. Patient is a full code. I spent 35 minutes of critical care reviewing labs, imaging and discussing plan of care with ICC team. Consultants: cardiology, nephrologyCode status: full codePlan discussed with: patient, family, collaborating MD, consultants, nurse, interdisc care team, pharmacy/pharmacist at 1232 RPT #:[id number] OF REPORTPRProgress [id number]:10:00G.[id number] ailable for patient [id number]:33:22 [facility] [place] 2023-07-22 11:55:00 [id number] ZUQygD aXGSyCfH/fVL4ckseZfE/JVAD79aUk4504-12-79E48:55 :00 [facility]Hospital[facility] Progress NoteREPORT#:[id number] REPORT STATUS: SignedDATE:07/22/23 TIME: 1155 PATIENT: JOSEPH ROWLEY UNIT #: [id number]#: [id number] [address] [birth year] AGE: 68 SEX: F ATTEND: OsmarTanvir Juliane MDADM AUTHOR: Violetta Davis MD * ALL edits or amendments must be made on the electronic/computer document * SubjectiveChief complaint:she is seen in the ccu. she is on HD and blood transfusion in the room . she had PCI yesterday post PCI and impella HPI:Patient had a fever spike yesterday was started on empiric antibiotics with UA abnormal system of UTI she is less confused and more alert per patient/family atbedside Review of SystemsConstitutional:Reports: generalized weakness. Respiratory:Denies: SOB. Cardiovascular:Denies: chest pain, palpitations. GI:Denies: nausea, vomiting. :Denies: hematuria. Neuro:Denies: confusion, dizziness. Objective GeneralVS/I O:Vital Signs: Date Time Temp Pulse Resp B/P B/P Pulse O2 O2 Flow FiO2 Mean Ox Delivery Rate 07/22 1100 71 25 98/42 60 93 09/08 1030 71 17 137/52 76 100 09/08 1009 96 Nasal 4 cannula 09/08 1000 67 16 132/50 73 100 09/08 0930 67 20 150/64 88 100 09/08 0900 66 15 145/64 87 100 09/08 0841 36.4 66 22 120/57 100 09/08 0830 63 23 141/68 87 100 09/08 0817 36.4 63 22 118/51 94 09/08 0803 36.4 63 20 119/57 100 09/08 0800 63 22 119/57 82 100 09/08 0730 68 24 88/44 64 96 09/08 0700 74 24 133/64 85 100 09/08 0645 72 20 128/60 80 100 09/08 0630 74 20 130/61 82 100 09/08 0615 72 15 114/53 72 100 09/08 0600 36.6 74 21 120/54 100 09/08 0600 36.5 74 21 120/54 74 100 09/08 0545 36.5 74 22 119/55 93 09/08 0545 36.5 74 22 119/55 74 93 09/08 0530 72 22 117/52 71 100 09/08 0515 73 16 107/48 66 100 09/08 0500 75 20 115/52 72 100 09/08 0400 36.4 75 12 133/68 89 100 Nasal 4 cannula 09/08 0400 75 12 133/68 88 100 09/08 0330 71 17 117/59 76 100 09/08 0300 71 17 115/58 75 100 09/08 0230 72 17 111/55 71 100 09/08 0200 75 20 120/59 77 100 09/08 0130 76 14 114/59 75 89 09/08 0100 75 21 107/53 68 90 09/08 0030 72 18 113/57 73 100 09/08 0000 36.1 74 16 107/55 72 100 Nasal 4 cannula 09/08 0000 74 16 107/55 70 87 09/07 2330 78 10 131/65 85 100 09/07 2300 79 15 119/59 78 100 09/07 2230 75 23 109/54 71 100 09/07 2200 74 24 112/58 74 100 09/07 2130 73 14 117/59 76 100 09/07 2100 71 24 123/68 84 100 09/07 2030 72 27 117/65 80 100 09/07 1999 4 07/21 2000 73 26 118/69 83 100 09/07 1999 96 Nasal 4 36 cannula 07/21 1930 72 27 114/66 79 100 09/07 1900 71 25 103/66 75 100 09/07 1822 80 21 107/67 79 100 09/07 1816 92/65 73 09/07 1816 81 30 144/87 97 100 24 hour I O ending at 0700: 09/08 0700 07/21 1900 Intake Total 350 Output Total Balance 350 Intake, 350 Packed Cells Patient 72.3 kg Weight Weight Bed scale Measurement Method PATIENT WEIGHT: Weight (lb): 159Weight (oz): 6.31Weight (kg): 72.300 Medications:Active Meds + DC'd Last 24 HrsClopidogrel Bisulfate (Plavix) 75 MG DAILY PO Senna/Docusate Sodium (SENOKOT S) 1 TAB BID 9A 5P PO Mupirocin (BACTROBAN 2% 22 GM OINTMENT) 1 APPLIC BID NASAL Hydrocodone Bitart/Acetaminophen (NORCO 5/325) 1 TAB ONCE ONE PO (DC) Ticagrelor (BRILINTA) 180 MG ONCE ONE PO (DC) Perflutren Lipid Microsphere (Definity) 0 .STK-MED ONE IV (DC) Albumin Human (ALBUMINAR 25%) 100 ML ONCE ONE IV (DC) Heparin Sodium (HEPARIN 5000 UNITS/ML) 0 ASDIR PRN IV Heparin Sodium (Porcine) (HEPARIN 25,000 UNITS/ 1/2NS 500ML) 500 ML ASDIR IV (CKD) Sodium Bicarbonate (SODIUM BICARBONATE) 25 ML Q24H IV (CKD) Dextrose/Water (DEXTROSE 5% WATER) 1,000 MLFentanyl Citrate (SUBLIMAZE) 25 MCG Q2H PRN PRN IV Tramadol HCl (ULTRAM) 50 MG Q6H PRN PRN PO Sodium Bicarbonate (SODIUM BICARBONATE) 25 ML ASDIR IV (DC) Perflutren Lipid Microsphere (Definity) 0 .STK-MED ONE IV (DC) Atropine Sulfate (ATROPINE SULFATE 0.1MG/ML SYR) 0.5 MG ASDIR PRN IV Sodium Chloride (SODIUM CHLORIDE 0.9%) 500 ML ASDIR PRN IV Heparin Sodium (HEPARIN SODIUM) 0 .STK-MED ONE .ROUTE (DC) Heparin Sodium (HEPARIN SODIUM) 0 .STK-MED ONE .ROUTE (DC) Cefazolin Sodium (KEFZOL OR ANCEF) 0 .STK-MED ONE .ROUTE (DC) Clopidogrel Bisulfate (CLOPIDOGREL BISULFATE) 0 .STK-MED ONE .ROUTE (DC) Fentanyl Citrate (SUBLIMAZE) 100 MCG PACU Q10MIN PRN PRN IV (DC) Fentanyl Citrate (SUBLIMAZE) 50 MCG PACU Q10MIN PRN PRN IV (DC) Hydralazine HCl (APRESOLINE) 5 MG PACU Q10MIN PRN PRN IV (DC) Hydrocodone Bitart/Acetaminophen (NORCO 5/325) 1 TAB PACU ONCE PO (DC) Insulin Human Lispro (HUMALOG) 0 PACU ONCE PRN SUBQ (DC) Labetalol HCl (LABETALOL HCL) 5 MG PACU Q10MIN PRN PRN IV (DC) Meperidine HCl (MEPERIDINE HCL/PF) 12.5 MG PACU ONCE PRN IV (DC) Ondansetron HCl (ZOFRAN) 4 MG PACU ONCE PRN IV (DC) Ropivacaine (NAROPIN 0.5% 150 MG/30mL) 150 MG ASDIR PRN LOCAL (DC) Sodium Chloride (SODIUM CHLORIDE 0.9%) 1,000 ML .Q24H IV (DC) Tramadol HCl (ULTRAM) 50 MG PACU ONCE PO (DC) Thrombin (RECOTHROM) 0 .STK-MED ONE TOPICAL (DC) Heparin Sodium (HEPARIN SODIUM) 0 .STK-MED ONE .ROUTE (DC) Fentanyl Citrate (SUBLIMAZE) 0 .STK-MED ONE .ROUTE (DC) Heparin Sodium/Sodium Chloride (HEPARIN 2,000 UNITS/NS 1,000mL) 1,000 ML .STK-MED ONE IV (DC) Heparin Sodium/Sodium Chloride (HEPARIN 1,000 UNITS/NS 500ML) 500 ML .STK-MED ONE IV (DC) Iopamidol (ISOVUE-370 100ML) 0 .STK-MED ONE IV (DC) Dorzolamide HCl (TRUSOPT 10 ML OPHTH SOLN) 1 DROP TID EACH EYE Midodrine (PROAMATINE) 7.5 MG 0800,1200,1600 PO Epoetin Tanner-epbx (RETACRIT) 10,000 UNIT TuThSa@2100 IV Loperamide HCl (IMODIUM CAPSULE) 2 MG QID PRN PRN PO Aspirin (ASPIRIN) 81 MG DAILY PO Acetaminophen (TYLENOL) 650 MG Q6H PRN PRN PO Atorvastatin Calcium (LIPITOR) 40 MG BEDTIME PO Albumin Human (ALBUMINAR-25%) 12.5 GM ASDIR PRN IV Heparin Sodium (Porcine) (HEPARIN SODIUM) 3,000 UNIT ASDIR PRN DIALYSIS Lidocaine HCl (LIDOCAINE HCL/PF) 0.5 ML ASDIR PRN I-DERMAL (CKD) Mannitol (Mannitol 20%) 12.5 GM ASDIR PRN IV Sodium Chloride (SODIUM CHLORIDE 0.9%) 2,000 ML ASDIR PRN IV Sodium Chloride (SODIUM CHLORIDE) 5 ML ASDIR PRN IV Sodium Chloride (SODIUM CHLORIDE) 10 ML ASDIR PRN IV Sodium Chloride (SODIUM CHLORIDE 0.9%) 250 ML ASDIR PRN IV Physical ExamGeneral appearance: alert, awake, orientedHead/Eyes: atraumatic, normal conjunctiva/sclera, normal eyelids/periorb.Neck: full range of motionCardiovascular: normal capillary refill, normal heart sounds, regular rate rhythmRespiratory: aerating well, clear to auscultation, symmetric expansion, no distressAbdomen: non-tender, normal bowel sounds, soft, no distentionExtremities: no edemaNeuro/CREDENTIALS SPECIALIST: alert, oriented X 3Ulcer: Type/cause: diabetic (right heel ulcer), arterial Location: foot, heel Laterality: bilateralPsychiatry: depressed ResultsFindings/Data:Laboratory Tests 07/21 1604 Blood Gas Puncture Site Central Line O2 Saturation (90 - 100 %) 100.0 ABG pH (7.35 - 7.45) 7.556 *H ABG pCO2 (35.0 - 45 mmHg) 29.3 *L ABG pO2 (80 - 100.0 mmHg) 451.3 *H ABG PO2/FiO2 Ratio (mm/Hg) 451.30 ABG HCO3 (22.0 - 26.0 MMOL/L) 26.0 ABG Total CO2 26.9 ABG Base Excess (-4.0 - 4.0 MMOL/L) 3.7 O2 Delivery Device Adult Vent Vent Mode anesthesia vent. FiO2 (%) 100 Laboratory Tests 07/22 07/21 07/21 07/21 0401 1957 1803 1803 Chemistry Sodium (134 - 147 mEq/L) 129 L 128 L Potassium (3.4 - 5.0 mEq/L) 4.1 4.4 Chloride (100 - 108 mEq/L) 93 L 93 L Carbon Dioxide (21 - 33 mEq/l) 28 25 Anion Gap (0 - 20) 12 14 BUN (7 - 25 mg/dL) 26 H 21 Creatinine (0.6 - 1.3 mg/dL) 2.7 H 2.5 H Glomerular Filtr Rate (80 - 90) 18.9 L 20.7 L Glucose (77 - 141 mg/dL) 176 H 187 H Lactic Acid (0.4 - 1.9 mmol/l) 1.5 2.4 H Calcium (8.0 - 10.5 mg/dL) 7.7 L 7.6 L Ionized Calcium Stefany (1.09 - 1.30 MMOL/L) 1.05 L 1.01 L Phosphorus (2.5 - 4.9 MG/DL) 4.1 3.2 Magnesium (1.6 - 2.6 mg/dL) 1.84 1.88 Laboratory Tests 07/22 07/22 07/22 07/21 07/21 0916 0400 0018 2233 2024Coagulation INR (0.8 - 1.2) 1.7 H PTT (Ralf) (25.0 - 39.5 Seconds) 29.7 32.6 34.4 55.1 H 126.9 H PT Patient/Control Mix (9.3 - 12.9 19.4 HSECONDS) 07/21 07/21 07/21 07/21 07/21 1557 1515 1503 1445 1431 Coagulation Activated Coag Time (74 - 137 SEC) 287 H 329 H 299 H 263 H 203 H Laboratory Tests 07/22 07/21 07/21 0400 2025 1803 Hematology WBC (4.5 - 11.0 x10 3/uL) 12.5 H 13.4 H RBC (3.54 - 5.02 x10 6/uL) 1.73 L 2.28 L Hgb (11.0 - 15.0 g/dL) 5.8 *L 7.2 L 7.8 L Hct (33.0 - 45.0 %) 18.8 L 22.2 L 24.5 L MCV (81.0 - 99.0 fL) 108.7 H 107.5 H MCH (27.0 - 33.0 pg) 33.5 H 34.2 H MCHC (33.0 - 37.0 g/dL) 30.9 L 31.8 L RDW (11.5 - 14.5 %) 18.8 H 18.6 H Plt Count (150 - 400 x10 3/uL) 190 248 MPV (7.0 - 9.0 fL) 12.0 H 12.2 H Neut % (Auto) (56.0 - 77.0 %) 78.1 H 78.6 H Lymph % (Auto) (14.0 - 32.0 %) 9.4 L 9.8 L [place] % (Auto) (4.8 - 9.0 %) 9.8 H 9.3 H Eos % (Auto) (0.3 - 3.7 %) 1.8 1.1 Baso % (Auto) (0.0 - 2.0 %) 0.2 0.1 Neut # (Auto) (2.0 - 7.6 x10 3/uL) 9.78 H 10.56 H Lymph # (Auto) (1.0 - 3.8 x10 3/uL) 1.18 1.31 [place] # (Auto) (0.1 - 0.8 x10 3/uL) 1.23 H 1.25 H Eos # (Auto) (0.0 - 0.2 x10 3/uL) 0.23 H 0.15 Baso # (Auto) (0.0 - 0.2 x10 3/uL) 0.02 0.01 Abs Immat Gran (auto) (0.00 - 0.03 x10 3/uL) 0.09 H 0.15 H Add Manual Diff NO NO Immature Gran % (0.0 - 2.0 %) 0.7 1.1 Nucleated RBC % (0 - 0 %) 0.4 H 1.0 H Nucleated RBCs # (Man) (0.0 - 0.1 x10 3/uL) 0.05 0.13 H Radiology data:Recent Impressions:RADIOLOGY - XR CHEST 1 V 07/21 2035 Report Impression - Status: SIGNED Entered: 07/21/20232155 IMPRESSION:As above.Impression By: BeanAmber - Jorgito Novak M.D. Diagnosis, Assessment PlanConsultants: cardiology, nephrology Free Text DxA P NotesFree text DxA P notes:68-year-old female with a past medical history of type 1 diabetes from the age of 46 years old, end-stage renal disease, on dialysis since July 2022, hypertension who presented to her inventory management specialist for evaluation of bilateral nonhealing ulcerations of her bilateral heels for the past 3 months, and shortness of breath with exertion. Left heart catheterization showed significant for severe three-vessel coronary artery disease with severe bilateral occluded SFAs of the lower extremity. Issues as below. Suspected urinary tract infectionSevere three-vessel CADSevere peripheral vascular diseaseDiabetes mellitusEnd-stage renal failure on hemodialysis Nonhealing bilateral heel ulcerationsHypertensionHyperlipidemiaCHF Mitral valve regurgitation Plan and recommendations Patient admitted into medicineVital signs every 4PatientAntiplatelets and statin per cardiologySeen by vascular surgery" CT surgery. Nephrology for hemodialysis. Will do basic lab work include CBC BMP now. Patient is not having significant hypoxia at this timeDVT prophylaxisRestart home medicationsDiscussed management plan in detail with patient's family. 07/13/[address] surgery and vascular surgery plansHemodialysis was done yesterdayHemodialysis per nephrologyMonitor renal functionBlood sugar control with insulin pump. 07/14/2023 Fever spike last night blood cultures on empiric antibiotics for possible UTIAntibiotics changedFollow-up on culturesFollow-up on cardiothoracic surgery and oncology recommendations plan to have discussion tomorrowBlood sugars controlledLab work otherwise stableDVT prophylaxisHemodialysis per nephrology 07/15- take over care from another group -- review all lab and image -- she is seen in the stress test lab . no cp no sob -- urine culture --positive continue rocephin iv -- blood culture -- no grow -- stress test -- pending --continue HD as schedule 07/16 High revascularization risk, will be discussed on Tuesday in clinical conference, ejection fraction 28%, viable tissue except apical scar, continue with dialysis, severe peripheral artery disease with heel ulcers, mitral valve regurgitation. 07/17 conference on Tuesday regarding the decision to proceed with revascularization, depressed, wound care to heels, increase midodrine to 10 mg 3times daily in view of persistent hypotension. 07/18 hyponatremic with sodium of 128, on hemodialysis, blood pressure has improved on midodrine, revascularization decision in a.m., daughter is at bedside, wound care. 07/19- no cp no sob -- family are in the room -- conference decision -pending -- continue current management 07/20- she is weak -- no cp -- spoke to cardiology continue monitor in CV1 will present the case in tuesday conference continue medical treatment 07/21- she is seen in the chemical laboratory assistant --PCI /impella -- afternoon -- lab am 07/22- she was transferred to CCU --post procedure -- HB--5.8 -- 2 units blood transfusion --HD -- today -- she is hemodynamic stable -- may dc impella as CV surgeon -- continue monitor in CCU -- family in the room -- answer all question -- review all lab and notes -- case is discussed with nurse at 1386 RPT #:[id number] OF REPORTPRProgress [id number]:55:00G.[id number] ailable for patient [id number]:48:34 [facility] 2023-07-22 10:30:00 [id number] [facility] [id number]:30 :00 [facility] ([facility])Nephrology Progress NoteREPORT#:[id number] REPORT STATUS: SignedDATE:07/22/23 TIME: 1030 PATIENT: JOSEPH ROWLEY UNIT #: [id number]#: [id number] [address] [birth year] AGE: 68 SEX: F ATTEND: Tanvir Prasad AUTHOR: Winnie Noyola MD * ALL edits or amendments must be made on the electronic/computer document * SubjectiveChief complaint:follow up of ESRDComments:Had PCI yesterday, also has intra-aortic balloon pump on. Currently in CCU. Had dialysis earlier today with 2.3 L UF. Had 2 units of PRBC as had acute anemia post angiogram. Objective GeneralVS/I O:Vital Signs: Date Time Temp Pulse Resp B/P B/P Pulse O2 O2 Flow FiO2 Mean Ox Delivery Rate 07/22 1009 96 Nasal 4 cannula 07/22 0841 97.5 66 22 120/57 100 09/08 0817 97.5 63 22 118/51 94 09/08 0803 97.6 63 20 119/57 100 09/08 0645 72 20 128/60 80 100 09/08 0630 74 20 130/61 82 100 09/08 0615 72 15 114/53 72 100 09/08 0600 97.8 74 21 120/54 100 09/08 0600 97.7 74 21 120/54 74 100 09/08 0545 97.7 74 22 119/55 93 09/08 0545 97.7 74 22 119/55 74 93 09/08 0530 72 22 117/52 71 100 09/08 0515 73 16 107/48 66 100 09/08 0500 75 20 115/52 72 100 09/08 0400 97.6 75 12 133/68 89 100 Nasal 4 cannula 09/08 0400 75 12 133/68 88 100 09/08 0330 71 17 117/59 76 100 09/08 0300 71 17 115/58 75 100 09/08 0230 72 17 111/55 71 100 09/08 0200 75 20 120/59 77 100 09/08 0130 76 14 114/59 75 89 09/08 0100 75 21 107/53 68 90 09/08 0030 72 18 113/57 73 100 09/08 0000 97.0 74 16 107/55 72 100 Nasal 4 cannula 09/08 0000 74 16 107/55 70 87 09/07 2330 78 10 131/65 85 100 09/07 2300 79 15 119/59 78 100 09/07 2230 75 23 109/54 71 100 09/07 2200 74 24 112/58 74 100 09/07 2130 73 14 117/59 76 100 09/07 2100 71 24 123/68 84 100 09/07 2030 72 27 117/65 80 100 09/07 1999 4 07/21 2000 73 26 118/69 83 100 09/07 1999 96 Nasal 4 36 cannula 07/21 1930 72 27 114/66 79 100 09/07 1900 71 25 103/66 75 100 09/07 1822 80 21 107/67 79 100 09/07 1816 92/65 73 09/07 1816 81 30 144/87 97 100 09/07 1130 97.5 64 21 117/55 96 24 hour I O ending at 0700: 09/08 0700 /07 1900 Intake Total 350 Output Total Balance 350 Intake, 350 Packed Cells Patient 72.3 kg Weight Weight Bed scale Measurement Method PATIENT WEIGHT: Weight (lb): 159Weight (oz): 6.31Weight (kg): 72.300 MedicationsActive Meds + DC'd Last 24 HrsClopidogrel Bisulfate (Plavix) 75 MG DAILY PO Senna/Docusate Sodium (SENOKOT S) 1 TAB BID 9A 5P PO Mupirocin (BACTROBAN 2% 22 GM OINTMENT) 1 APPLIC BID NASAL Hydrocodone Bitart/Acetaminophen (NORCO 5/325) 1 TAB ONCE ONE PO (DC) Ticagrelor (BRILINTA) 180 MG ONCE ONE PO (DC) Perflutren Lipid Microsphere (Definity) 0 .STK-MED ONE IV (DC) Albumin Human (ALBUMINAR 25%) 100 ML ONCE ONE IV (DC) Heparin Sodium (HEPARIN 5000 UNITS/ML) 0 ASDIR PRN IV Heparin Sodium (Porcine) (HEPARIN 25,000 UNITS/ 1/2NS 500ML) 500 ML ASDIR IV (CKD) Sodium Bicarbonate (SODIUM BICARBONATE) 25 ML Q24H IV (CKD) Dextrose/Water (DEXTROSE 5% WATER) 1,000 MLFentanyl Citrate (SUBLIMAZE) 25 MCG Q2H PRN PRN IV Tramadol HCl (ULTRAM) 50 MG Q6H PRN PRN PO Sodium Bicarbonate (SODIUM BICARBONATE) 25 ML ASDIR IV (DC) Perflutren Lipid Microsphere (Definity) 0 .STK-MED ONE IV (DC) Atropine Sulfate (ATROPINE SULFATE 0.1MG/ML SYR) 0.5 MG ASDIR PRN IV Sodium Chloride (SODIUM CHLORIDE 0.9%) 500 ML ASDIR PRN IV Heparin Sodium (HEPARIN SODIUM) 0 .STK-MED ONE .ROUTE (DC) Heparin Sodium (HEPARIN SODIUM) 0 .STK-MED ONE .ROUTE (DC) Cefazolin Sodium (KEFZOL OR ANCEF) 0 .STK-MED ONE .ROUTE (DC) Clopidogrel Bisulfate (CLOPIDOGREL BISULFATE) 0 .STK-MED ONE .ROUTE (DC) Fentanyl Citrate (SUBLIMAZE) 100 MCG PACU Q10MIN PRN PRN IV (DC) Fentanyl Citrate (SUBLIMAZE) 50 MCG PACU Q10MIN PRN PRN IV (DC) Hydralazine HCl (APRESOLINE) 5 MG PACU Q10MIN PRN PRN IV (DC) Hydrocodone Bitart/Acetaminophen (NORCO 5/325) 1 TAB PACU ONCE PO (DC) Insulin Human Lispro (HUMALOG) 0 PACU ONCE PRN SUBQ (DC) Labetalol HCl (LABETALOL HCL) 5 MG PACU Q10MIN PRN PRN IV (DC) Meperidine HCl (MEPERIDINE HCL/PF) 12.5 MG PACU ONCE PRN IV (DC) Ondansetron HCl (ZOFRAN) 4 MG PACU ONCE PRN IV (DC) Ropivacaine (NAROPIN 0.5% 150 MG/30mL) 150 MG ASDIR PRN LOCAL (DC) Sodium Chloride (SODIUM CHLORIDE 0.9%) 1,000 ML .Q24H IV (DC) Tramadol HCl (ULTRAM) 50 MG PACU ONCE PO (DC) Thrombin (RECOTHROM) 0 .STK-MED ONE TOPICAL (DC) Heparin Sodium (HEPARIN SODIUM) 0 .STK-MED ONE .ROUTE (DC) Fentanyl Citrate (SUBLIMAZE) 0 .STK-MED ONE .ROUTE (DC) Heparin Sodium/Sodium Chloride (HEPARIN 2,000 UNITS/NS 1,000mL) 1,000 ML .STK-MED ONE IV (DC) Heparin Sodium/Sodium Chloride (HEPARIN 1,000 UNITS/NS 500ML) 500 ML .STK-MED ONE IV (DC) Iopamidol (ISOVUE-370 100ML) 0 .STK-MED ONE IV (DC) Epinephrine HCl (EPINEPHrine 4 mg/D5W 250 mL) 250 ML .STK-MED ONE IV (DC) Norepinephrine Bitartrate (NOREPINEPHRINE 8 MG/NS 250 ML) 250 ML .STK-MED ONE IV (DC) Etomidate (AMIDATE) 0 .STK-MED ONE IV (DC) Rocuronium [place] (ZEMURON) 0 .STK-MED ONE IV (DC) Dorzolamide HCl (TRUSOPT 10 ML OPHTH SOLN) 1 DROP TID EACH EYE Midodrine (PROAMATINE) 7.5 MG 0800,1200,1600 PO Epoetin Tanner-epbx (RETACRIT) 10,000 UNIT TuThSa@2100 IV Loperamide HCl (IMODIUM CAPSULE) 2 MG QID PRN PRN PO Aspirin (ASPIRIN) 81 MG DAILY PO Acetaminophen (TYLENOL) 650 MG Q6H PRN PRN PO Atorvastatin Calcium (LIPITOR) 40 MG BEDTIME PO Albumin Human (ALBUMINAR-25%) 12.5 GM ASDIR PRN IV Heparin Sodium (Porcine) (HEPARIN SODIUM) 3,000 UNIT ASDIR PRN DIALYSIS Lidocaine HCl (LIDOCAINE HCL/PF) 0.5 ML ASDIR PRN I-DERMAL (CKD) Mannitol (Mannitol 20%) 12.5 GM ASDIR PRN IV Sodium Chloride (SODIUM CHLORIDE 0.9%) 2,000 ML ASDIR PRN IV Sodium Chloride (SODIUM CHLORIDE) 5 ML ASDIR PRN IV Sodium Chloride (SODIUM CHLORIDE) 10 ML ASDIR PRN IV Sodium Chloride (SODIUM CHLORIDE 0.9%) 250 ML ASDIR PRN IV Physical ExamGeneral appearance: alert, awake, orientedHead/eyes: atraumatic, normocephalic, PERRLAENT: moist mucous membranesNeck: no JVD, no lymphadenopathy, no masses or swellingCardiovascular: normal heart sounds, regular rate and rhythm, no murmur, no rubRespiratory: aerating well, clear to auscultation, normal breath sounds, no distressAbdomen: non-tender, normal bowel sounds, soft, no reboundGenitourinary: no bladder distention, no flank pain, no urinary catheterExtremities: pitting edema, no gangreneNeuro/CREDENTIALS SPECIALIST: alert, oriented X 3, CN II-XII intact, normal speechUlcer: Type/cause: diabetic (right heel ulcer), arterial Location: foot, heel Laterality: bilateral ResultsFindings/Data:Laboratory Tests 07/21 1604 Blood Gas Puncture Site Central Line O2 Saturation (90 - 100 %) 100.0 ABG pH (7.35 - 7.45) 7.556 *H ABG pCO2 (35.0 - 45 mmHg) 29.3 *L ABG pO2 (80 - 100.0 mmHg) 451.3 *H ABG PO2/FiO2 Ratio (mm/Hg) 451.30 ABG HCO3 (22.0 - 26.0 MMOL/L) 26.0 ABG Total CO2 26.9 ABG Base Excess (-4.0 - 4.0 MMOL/L) 3.7 O2 Delivery Device Adult Vent Vent Mode anesthesia vent. FiO2 (%) 100 Laboratory Tests 07/22 07/21 07/21 07/21 07/21 0401 1957 1803 1803 1046Chemistry Sodium (134 - 147 mEq/L) 129 L 128 L Potassium (3.4 - 5.0 mEq/L) 4.1 4.4 Chloride (100 - 108 mEq/L) 93 L 93 L Carbon Dioxide (21 - 33 mEq/l) 28 25 Anion Gap (0 - 20) 12 14 BUN (7 - 25 mg/dL) 26 H 21 Creatinine (0.6 - 1.3 mg/dL) 2.7 H 2.5 H Glomerular Filtr Rate (80 - 90) 18.9 L 20.7 L Glucose (77 - 141 mg/dL) 176 H 187 H POC Glucose (70 - 110 MG/DL) 141 H Lactic Acid (0.4 - 1.9 mmol/l) 1.5 2.4 H Calcium (8.0 - 10.5 mg/dL) 7.7 L 7.6 L Ionized Calcium Stefany (1.09 - 1.30 MMOL/L) 1.05 L 1.01 L Phosphorus (2.5 - 4.9 MG/DL) 4.1 3.2 Magnesium (1.6 - 2.6 mg/dL) 1.84 1.88 Laboratory Tests 07/2216 0400 0018 2233 2024Coagulation INR (0.8 - 1.2) 1.7 H PTT (Ralf) (25.0 - 39.5 Seconds) 29.7 32.6 34.4 55.1 H 126.9 H PT Patient/Control Mix (9.3 - 12.9 19.4 HSECONDS) 07/21 07/21 07/21 07/21 07/21 1557 1515 1503 1445 1431 Coagulation Activated Coag Time (74 - 137 SEC) 287 H 329 H 299 H 263 H 203 H Laboratory Tests 07/220 5 1803 Hematology WBC (4.5 - 11.0 x10 3/uL) 12.5 H 13.4 H RBC (3.54 - 5.02 x10 6/uL) 1.73 L 2.28 L Hgb (11.0 - 15.0 g/dL) 5.8 *L 7.2 L 7.8 L Hct (33.0 - 45.0 %) 18.8 L 22.2 L 24.5 L MCV (81.0 - 99.0 fL) 108.7 H 107.5 H MCH (27.0 - 33.0 pg) 33.5 H 34.2 H MCHC (33.0 - 37.0 g/dL) 30.9 L 31.8 L RDW (11.5 - 14.5 %) 18.8 H 18.6 H Plt Count (150 - 400 x10 3/uL) 190 248 MPV (7.0 - 9.0 fL) 12.0 H 12.2 H Neut % (Auto) (56.0 - 77.0 %) 78.1 H 78.6 H Lymph % (Auto) (14.0 - 32.0 %) 9.4 L 9.8 L [place] % (Auto) (4.8 - 9.0 %) 9.8 H 9.3 H Eos % (Auto) (0.3 - 3.7 %) 1.8 1.1 Baso % (Auto) (0.0 - 2.0 %) 0.2 0.1 Neut # (Auto) (2.0 - 7.6 x10 3/uL) 9.78 H 10.56 H Lymph # (Auto) (1.0 - 3.8 x10 3/uL) 1.18 1.31 [place] # (Auto) (0.1 - 0.8 x10 3/uL) 1.23 H 1.25 H Eos # (Auto) (0.0 - 0.2 x10 3/uL) 0.23 H 0.15 Baso # (Auto) (0.0 - 0.2 x10 3/uL) 0.02 0.01 Abs Immat Gran (auto) (0.00 - 0.03 x10 3/uL) 0.09 H 0.15 H Add Manual Diff NO NO Immature Gran % (0.0 - 2.0 %) 0.7 1.1 Nucleated RBC % (0 - 0 %) 0.4 H 1.0 H Nucleated RBCs # (Man) (0.0 - 0.1 x10 3/uL) 0.05 0.13 H Radiology data:Recent Impressions:RADIOLOGY - XR CHEST 1 V 07/21 2035 Report Impression - Status: SIGNED Entered: 07/21/20232155 The ventricular assist device noted. The right IJ CVC tip overlies the cavoatrial junction. No pneumothorax. Trace bilateral pleural effusions. Mild central pulmonary edema. The mediastinal contours are unremarkable/unchanged. No acute osseous findings are present.IMPRESSION:As above.Impression By: BeanHV2 - Jorgito Novak M.D. Diagnosis, Assessment PlanFree Text A P:1. ESRD continue with dialysis Tuesday. Status post HD in a.m.2. Hypotension on midodrine 3. Coronary artery disease status post PCI, has intra-aortic balloon pump on, to get it out today. 4. Diabetes type 1 per primary team 5. Anemia of CKD on MATT as hemoglobin less than 10, 10,000 unit 3 times a week 6. hyponatremia Repeat lab in the morning. P.o. fluid restriction 1.2 L/day. 7. Volume overload reassess in a.m. for ultrafiltration Discussed with brother at bedside at 1432 RPT #:[id number] OF REPORTPRProgress [id number]:30:00G.[id number] ailable for patient [id number]:32:48 [facility] 2023-07-22 06:26:00 [id number]:26 [id number] [place] [address] PATIENT NAME: JOSEPH ROWLEY ADMIT DATE: 07/12/23ACCOUNT NO: [id number] ROOM NO: [facility] AGE: 68 REPORT TYPE: eELECTROCARDIOGRAM REPORT SEX: F ADMITTING PHYSICIAN:Tanvir Prasad MD ATTENDING PHYSICIAN:Tanvir Prasad MD Order:[id number] Reason : S/P PCI Test Date/Time Stamp:TueJul 22 2023 06:26:26Blood Pressure : / mmHGVent. Rate : 073 BPM Atrial Rate : 073 BPM P-R Int : 144 ms QRS Dur : 088 ms QT Int : 372 ms P-R-T Axes : 056 061 202 degrees QTc Int : 409 ms Normal sinus rhythmLow voltage QRSST and T wave abnormality, consider anterolateral ischemiaAbnormal ECGWhen compared with ECG of 21-JUL-2023 18:29,No significant change was foundConfirmed by FAREED HEARN MD ([id number]) on 07/22/2023 6:52:45 PM Referred By: Jaxson Grover Confirmed by:FAREED HEARN MD at 1852 PATIENT NAME: JOSEPH ROWLEY .[id number] for patient [id number]:53:10 [facility] [place] 2023-07-21 22:09:00 [id number]/AxoFvN5 zTCutJ 8pFlolh1IAeVhTEvYCMlpEeGPpmStJ9686-92-89V64:09 :[id number] [place] [id number] PATIENT NAME: JOSEPH ROWLEY ADMIT DATE: 07/12/23ACCOUNT NO: [id number] ROOM NO: G.3306 AGE: 68 REPORT TYPE: CARDIAC CATHETERIZATION REPORT SEX: F ADMITTING PHYSICIAN:Tanvir Prasad MD ATTENDING PHYSICIAN:Tanvir Prasad MD PROCEDURE DATE: 07/21/2023 INDICATION FOR PROCEDURE: Acute decompensated heart failure, severe 3-vesseldisease, severe ischemic cardiomyopathy and severe mitral regurgitation. Thepatient was evaluated by CT surgery and was deemed at prohibitive risk forcoronary artery bypass graft with STS score of 50. The patient has nopercutaneous option from the groin as she has occluded bilateral iliac arteries,common femoral arteries, and . The option of medical therapy versushigh-risk percutaneous coronary intervention with Impella support via axillaryaccess with CT Surgery cutdown and chimney placement was discussed with thepatient and her family and with the heart team and the plan was to proceed withthat. Risks and benefits explained to the patient and her family and they werefully aware and they consented to proceed. They understand the risk of limbischemia, stroke, PR, and/or . PROCEDURES PERFORMED:1. Surgical cutdown chimney graft into the right subclavian that was obtainedby CT surgery. Please refer to their report for full details.2. Insertion of Impella cp into the left ventricle.3. Percutaneous coronary intervention with drug-eluting stents into the leftcircumflex.4. Percutaneous coronary intervention with drug-eluting stent into mid leftanterior descending; Synergy 2.5 x 32.5. Percutaneous coronary intervention with drug-eluting stent, Synergy 3.0 x 28mm from the left main into the mid left anterior descending and we did the minicrush technique where we crushed the circumflex stent. DESCRIPTION OF PROCEDURE: After informed consent was obtained, the patient wasbrought into the chemical laboratory assistant. The patient was prepped and draped in sterilefashion. Anesthesia did intubate the patient and general anesthesia wasprovided by anesthesia. Then, the right subclavian artery was accessed bysurgical cutdown and chimney graft [address] by [address] surgery. Then, Iplaced Impella CP 3.5 liters into the left ventricle and then we accessed theImpella, repositioning sheath with micropuncture; then, we had placed the 45 cmDestination sheath 6-Martiniquais and advanced it into the ascending aorta. Then, Iwent with XB 3-0 guide, but the patient waswith a very short roots. I was not able to engage the left main with it, so I exchanged the guide to JL 6- Martiniquais engaged the left main. Then, I went with a Inspector Type 200 with no difficulty. We crossed this DEVELOPMENT ARCHITECT lesion of the left circumflex. Then, we went with a Runthrough wire, placed it in the distal LAD. Then, we went with 1.25 balloon and we did CAMP COUNSELOR to the mid left circumflex. Then, we went with a 2.0 balloon, did CAMP COUNSELOR to the mid left circumflex into the ostium. Then, there was haziness in the left main and LAD, so then we wanted to stabilize the LAD and we PATIENT NAME: JOSEPH ROWLEY did with multiple balloons in mid LAD and we did multiple inflations allthe way to the left main. Then, we went with Synergy drug-eluting stent, 2.5 x32 and we deployed it across the mid LAD at high pressure. Then, we used thestent balloon to predilate the proximal LAD and left main. Then, we went with a balloon into the left circumflex and we did predilation all the way to theostium. Then, we went with Synergy drug-eluting stent, 2.5 x 32 and we advancedit into the mid left circumflex and we had minimal protrusion into the leftmain. Then, we went with x 12 balloon. We placed it into the LAD toperform mini crush and then we deployed the left circumflex stent at a nominalpressure. Then, we crushed the stent with balloon. Then, we went with a x 28 mm Synergy drug-eluting stent and we deployed it from the left maininto the mid LAD overlapping the first stent. Then, we advanced the stentballoon and we inflated the overlapped segment and then we took back the balloonand we flared the ostium of the left main. Then, we went with a 3.5 NC balloonand we did proximal optimization of the left main stent. We tried to re-crossinto the left circumflex to do a final kissing balloons. We tried multiplewires, was not able to. At this time, we decided to not further pursue thekissing balloon as we have excellent results with JUANITO flow 3 in the leftcircumflex and LAD. The patient had better pulsatile pressure at the end of theprocedure. The wires were removed and obtained final pictures, which showedexcellent results. Then, the guide removed and sheath removed. The peel-awaysheath was taking the arch. The graft was cut close to the stent and weadvanced the peel-away sheath and we secured it in place; however, the peel-awaysheath was extended to the subclavian and we had obstruction of the flow intothe right arm. We have to pull back the repositioning sheath and cut two-thirdof it, we had to use multiple techniques to perform that and then we readvancedit to the repositioning sheath and we secured it in place. Then, CT surgerycame and closed the cutdown. The patient was hemodynamically stable at the endof the procedure with good pressure and anesthesia extubated the patient. IMPRESSION: Severe 3-vessel disease with critical left main, left anteriordescending, and left circumflex, status post percutaneous coronary interventionwith 3 drug-eluting stents into the mid left anterior descending, left main, andleft circumflex using mini crush technique. PLAN: Keep the Impella support overnight and wean off tomorrow. The patientwill need to return to the OR to remove it. The patient was given Plavix 600 inthe chemical laboratory assistant through the NG tube and we will give her Brilinta in CCU afterextubation. Dictated By: Kimberly Pak MD Date Dictated: 07/21/2023 22:09:15Date Transcribed: 07/22/2023 00:50:24MA/SVR/LAWTON/Brandon #: [id number] ID: [id number] and Edited by Kimberly Pak MD On 09/15/23 7:46:22 AM at 0747PATIENT NAME: JOSEPH ROWLEY [id number]:50:00G.[id number] ilable for patient gqhpDOURDQGDAONDHE0920-90-39S13:48:14 [facility] 2023-07-21 21:08:00 [id number] V8QlsW BLtHneebecFSyIWR27BcGvFkenXEU91606-53-32C10:08 :[id number] [place] [address] PATIENT NAME: JOSEPH ROWLEY ADMIT DATE: 07/12/23ACCOUNT NO: [id number] ROOM NO: [facility] AGE: 68 REPORT TYPE: OPERATIVE REPORT SEX: F ADMITTING PHYSICIAN:Tanvir Prasad MD ATTENDING PHYSICIAN:Tanvir Prasad MD OPERATION DATE: 07/21/2023 PREOPERATIVE DIAGNOSES: 1. Coronary artery disease.2. Peripheral vascular disease.3. End-stage renal disease.4. Severe cardiomyopathy. POSTOPERATIVE DIAGNOSES: 1. Coronary artery disease.2. Peripheral vascular disease.3. End-stage renal disease.4. Severe cardiomyopathy. PROCEDURES: 1. Exploration of right axillary artery.2. Chimney graft to right axillary artery (8 mm Hemashield graft).3. The tunneling of the chimney graft into the right pectoralis region. SURGEON: Miguel Lyon M.D. QUALITY INTERNSHIP: Ivan JohnsonD. ANESTHESIOLOGIST: Dr. Lizama. ANESTHESIA: General endotracheal anesthesia. ESTIMATED BLOOD LOSS: 20 mL INDICATIONS: Ms. Rowley is a 68-year-old female vasculopath with end-stagerenal disease, on hemodialysis and severe triple-vessel coronary artery diseaseand cardiomyopathy. She was transferred to [place] for PCI. Unfortunately,she had severe peripheral vascular disease and was in need of an Impella supportfor PCI and hence she was brought to the operating room today for right axillarycutdown as no femoral artery was available for placement of Impella, and PCI.Please refer to Dr. Pak's dictation for placement of an Impella and PCI. FINDINGS: Right axillary artery measured about 6 mm in size, slightly diseasedartery. PATIENT NAME: JOSEPH ROWLEY DESCRIPTION OF PROCEDURE: Ms. Rowley was identified in the preoperative holdingarea and brought to the OR and placed supine on the operating table. Afterinduction of general endotracheal anesthesia, the right side of the chest wasprepped and draped in standard surgical fashion. We began by making a 3 cmincision 2 fingerbreadths below the lateral third of the right clavicle.Subcutaneous tissue was divided with Bovie cautery. The pectoralis major musclewas divided along the direction of its fibers. The pectoralis minor muscle wasretracted inferiorly. The right axillary vein was identified and retractedsuperiorly. Next, the right axillary artery was identified, dissected andisolated. The patient was given 6000 units of heparin after waiting for 3minutes. A segment of right axillary artery was isolated between 2 profundaclamps. A longitudinal arteriotomy was performed along the long axis of theartery and was isolated between 2 profunda clamps. Arteriotomy was performedalong the long axis of the artery. An 8 mm Hemashield graft was brought alongsurgical field. It was beveled and anastomosed to the right axillary artery ncaoz-fh-temr fashion using running 5-0 Prolene suture. This graft was thentunneled laterally and was brought out through the skin incision with a lateralpectoral fold. Breakable sheath was then attached to the end of the Hemashieldgraft. Please refer to Dr. Pak's dictation for details of placement ofImpella and PCI. After Dr. Pak finished with his procedure, attention was then shifted back to the right infraclavicular region. Hemostasis was achieved. The muscle was approximated with #1 Vicryl, subcutaneous tissue with 2- 0 Vicryl and skin with talon. The patient was extubated in the chemical laboratory assistant and moved to PACU in stable condition. Dictated By: Miguel Lyon MD Date Dictated: 07/21/2023 21:08:37Date Transcribed: 07/22/2023 01:30:54ALYCIA/KEAGAN/Brandon #: [id number] ID: [id number] and Edited by Frida Lyon MD On 07/30/23 12:24:04 PM at 1224 PATIENT NAME: JOSEPH ROWLEY cqtvpz8987-57-43S60:30:00G.[id number] vailable for patient sddsVYGTUHKIETVLSQ6384-82-19N64:25:52 [facility] [place] 2023-07-21 21:00:00 [id number] D3Ykdc rsS03qSLsawNTaH25SVKoFYiNTwliz8110-43-87M51:00 :00 [facility] ([facility])Brief Op NoteREPORT#:[id number] REPORT STATUS: SignedDATE:07/21/23 TIME: 2099 PATIENT: JOSEPH ROWLEY UNIT #: [id number]#: [id number] [address] [birth year] AGE: 68 SEX: F ATTEND: Tanvir Prasad AUTHOR: Miguel Lyon MD * ALL edits or amendments must be made on the electronic/computer document * Op/Inv Proc Note - BriefPre-procedure diagnosis:CADPVDPost-procedure diagnosis: same as pre procedure dxProcedures performed:Exploration of right Axillary arteryChimney graft to right axillary artery (8mm Hemasheild Graft)Primary Surgeon:Emiliat(s): Estephania Khan:Rt Axillary artery 6 mmComplications: noneEstimated blood loss in ml's: none (20 cc)Specimens removed/altered: none at 2102 RPT #:[id number] OF REPORTOPOperative tctglk0790-34-78H73:00:00G.[id number] Available for patient hihvFWJUBPVOFVGRAB6881-20-32U39:03:09 [facility] 2023-07-21 20:31:00 [id number] 7m/TOA mhdfGyhq9vhatO3dBOTZauJEORArf+1166-80-02U45:31 :[id number] [place] [address] PATIENT NAME: JOSEPH ROWLEY ADMIT DATE: 07/12/23ACCOUNT NO: [id number] ROOM NO: [facility] AGE: 68 REPORT TYPE: eECHOCARDIOGRAM REPORT SEX: F ADMITTING PHYSICIAN:Tanvir Prasad MD ATTENDING PHYSICIAN:Tanvir Prasad MD *[place], [place] [address]Phone: Zzq: [phone] Limited Transthoracic Echocardiogram Patient: Laura Rowley Date: 07/21/2023 BP: 118 / Location: 72URN: [id number] MRN: Account#:: [id number] Age: 68 Height: 55.9 in / 142 cmAccession#: [id number] Gender: F Weight: 147.8 lb / 67.2 kgBMI/BSA: 33.3 kg/m 2 / 1.66 m 2 *Interpreting Physician: * Kimberly Pak MD*Vice President And Portfolio Manager: * Ana Lauar Boone Indications: IMPELLA POSITION. Study data: Transthoracic echocardiogram, limited study. Procedure:Transthoracic echocardiography was performed. Image quality wasadequate. Intravenous contrast (Definity) was administered. Limited 2Dand limited spectral Doppler. Location: CCU Patient status:Inpatient. Patient room number: 3306. Study status: Stat. Rhythm:Normal sinus rhythm. Findings Left ventricle: The cavity size is normal. Wall thickness is normal.Left ventricle ejection fraction is estimated 35%. There is an IMPELLAcatheter noted in the left ventricle. Catheter inlet area isapproximately 3.3 to 3.5 cm below the aortic valve. Severe diffusehypokinesis. Features are consistent with a pseudonormal leftventricular filling pattern, with concomitant abnormal relaxation andPATIENT NAME: JOSEPH ROWLEY increased filling pressure (grade 2 diastolic dysfunction).Right ventricle: Estimated TAPSE is 1.1 cm. The cavity size is normal.Systolic function is mildly to moderately reduced. Systolic pressure ismoderately to severely increased.Left atrium: The atrium is normal in size.Right atrium: The atrium is normal in size.Aorta: Aortic root: The aortic root is normal in size.Aortic valve: The valve is structurally normal. The valve istrileaflet. There is no evidence of stenosis. There is noregurgitation.Mitral valve: The valve is structurally normal. There is noevidence of stenosis. There is mild to moderate regurgitation.Tricuspid valve: Estimated right ventricular systolic pressure is 66mmHg. The valve is structurally normal. There is moderate-severeregurgitation.Pulmonic valve: The valve is structurally normal. There is noregurgitation.Pericardium: There is no pericardial effusion.Pulmonary arteries:The main pulmonary artery is normal-sized.Systemic veins:Inferior vena cava: The vessel is normal in size. The respirophasicdiameter changes are in the normal range (= 50%). Inferior vena cavadiameter measures 16 mm. Conclusions Summary: 1. Left ventricle: The cavity size is normal. Wall thickness is normal. Left ventricle ejection fraction is estimated 35%. There is an IMPELLA catheter noted in the left ventricle. Catheter inlet area is approximately 3.3 to 3.5 cm below the aortic valve. Severe diffuse hypokinesis. Features are consistent with a pseudonormal left ventricular filling pattern, with concomitant abnormal relaxation and increased filling pressure (grade 2 diastolic dysfunction).2. Right ventricle: Estimated TAPSE is 1.1 cm. Systolic function is mildly to moderately reduced. Systolic pressure is moderately to severely increased.3. Mitral valve: There is mild to moderate regurgitation.4. Tricuspid valve: Estimated right ventricular systolic pressure is 66 mmHg. There is moderate-severe regurgitation. Prepared and electronically signed by Kimberly Pak MD07/21/2023 20:31 at 2031PATIENT NAME: JOSEPH ROWLEY :3 1:00G.[id number] for patient tqnhLCWKBXKFCOTFXA3456-99-00I93:51:25 [facility] 2023-07-21 18:29:00 [id number] cWrC RMufwfCPFf8XeXrfc+DpjoIj2M5tLK0889-76-10N90:29 :[id number] [address] PATIENT NAME: JOSEPH ROWLEY ADMIT DATE: 07/12/23ACCOUNT NO: [id number] ROOM NO: [facility] AGE: 68 REPORT TYPE: eELECTROCARDIOGRAM REPORT SEX: F ADMITTING PHYSICIAN:Tanvir Prasad MD ATTENDING PHYSICIAN:Tanvir Prasad MD Order:[id number] Reason : PCI Postprocedure Test Date/Time Stamp:TueJul 21 2023 18:29:57Blood Pressure : / mmHGVent. Rate : 078 BPM Atrial Rate : 078 BPM P-R Int : 136 ms QRS Dur : 082 ms QT Int : 404 ms P-R-T Axes : 077 080 177 degrees QTc Int : 460 ms Normal sinus rhythmLow voltage QRSST and T wave abnormality, consider anterolateral ischemiaAbnormal ECGWhen compared with ECG of 11-JUL-2023 11:12,Significant changes have occurredConfirmed by MD RHETT, ED ([id number]) on 07/22/2023 6:42:42 AM Referred By: Jaxson Grover Confirmed by:ED DELANEY MD at 0642 PATIENT NAME: JOSEPH ROWLEY .[id number] 005AVAvailable for patient zewdLNBUMUIAUESGNJ1153-20-25H21:43:04 [facility] 2023-07-21 18:02:00 [id number] nWqPLc BGV75wWLnjDquVGIkqB/N1OnV4mfXp7770-16-14B56:02 :00 [facility] ([facility])Critical Care Consult NoteREPORT#:[id number] REPORT STATUS: SignedDATE:07/21/23 TIME: 180 PATIENT: JOSEPH ROWLEY UNIT #: [id number]#: [id number] ROOM/BED: [facility]-1DOB: [birth year] AGE: 68 SEX: F ATTEND: Tanvir Prasad MDADM AUTHOR: Fanny Chawla * ALL edits or amendments must be made on the electronic/computer document * History of Present Illness HPIRequesting clinician: Dr. Richards for consult:ICU managementChief complaint:S/p PCI with impella. PCP:PCP: Benito Nugent MD HPI: Joseph Mccullough is a 68-year-old female with a DM1, HTN, severe cardiomyopathy, HFwith EF of 25% as well as severe MR, ESRD, on dialysis since July 2022, whopresented to her inventory management specialist for evaluation of bilateral nonhealing ulcerationsof her bilateral heels for the past 3 months, and shortness of breath with exertion. She underwent elective coronary and peripheral angiogram on 07/12, which revealed multivessel CAD and severe bilateral PAD. she was then evaluated by Vascular and CT surgery. Patient was deemed not a candidtae for CABG surgery. PCI with impella placement was planned with CVsx on standby. Today patient is transferred to CCU room # 3306 post PCI with impella support via R axillary region. Site has surgical dressing in place, some oozing noted. She is drowsy but easy to arouse, she is following commands. Oxygen via face mask, sats 100%. B/p 107/67 (78), HR 78. Reports pain to surgical site. History - Adult longitudinalAdditional medical history:type 1 diabetes from the age of 46 years old, end-stage renal disease, on dialysis since July 2022, hypertensionFamily history:Denies: CAD < 40 yrs old. Additional family history:reviewed and is noncontributory.Alcohol use: Denies EtOH useDrug use: Denies recreational drugsSmoking status for patients 13 years old or older: Never SmokerAllergies:Coded Allergies:Sulfa (Sulfonamide Antibiotics) (Severe, rash 07/11/23)codeine (Intermediate, NAUSEA 07/11/23) Review of Systems ROSAdditional notes:All pertinent positives and negatives mentioned in HPI. Objective Physical ExamVS/I O:Last Documented: Result Date Time Pulse Ox 96 07/21 1130 B/P 117/55 07/21 1130 Temp 97.5 07/21 1130 Pulse 64 07/21 1130 Resp 21 07/21 1130 B/P Mean 0.0 07/21 918 O2 Delivery Room air 07/21 918 FiO2 21 07/20 2230 O2 Flow Rate 5 07/15 1635 24 hour I O ending at 0700: 07/21 0700 07/20 1900 Intake Total 200 600 Output Total 2500 Balance 200 -1900 Intake, Oral 200 600 Number Voids 1 Output, 2500 Hemodialysis Patient 67.2 kg Weight Weight Bed scale Measurement Method Patient Weight and BMI Weight (kg): 67.200 BMI: 33.2 Medications:Active Meds + DC'd Last 24 HrsClopidogrel Bisulfate (Plavix) 75 MG DAILY PO Mupirocin (BACTROBAN 2% 22 GM OINTMENT) 1 APPLIC BID NASAL Sodium Bicarbonate (SODIUM BICARBONATE) 25 ML ASDIR IV (UNV) Perflutren Lipid Microsphere (Definity) 0 .STK-MED ONE IV (DC) Atropine Sulfate (ATROPINE SULFATE 0.1MG/ML SYR) 0.5 MG ASDIR PRN IV Sodium Chloride (SODIUM CHLORIDE 0.9%) 500 ML ASDIR PRN IV Heparin Sodium (HEPARIN SODIUM) 0 .STK-MED ONE .ROUTE (DC) Heparin Sodium (HEPARIN SODIUM) 0 .STK-MED ONE .ROUTE (DC) Cefazolin Sodium (KEFZOL OR ANCEF) 0 .STK-MED ONE .ROUTE (DC) Clopidogrel Bisulfate (CLOPIDOGREL BISULFATE) 0 .STK-MED ONE .ROUTE (DC) Fentanyl Citrate (SUBLIMAZE) 100 MCG PACU Q10MIN PRN PRN IV Fentanyl Citrate (SUBLIMAZE) 50 MCG PACU Q10MIN PRN PRN IV Hydralazine HCl (APRESOLINE) 5 MG PACU Q10MIN PRN PRN IV Hydrocodone Bitart/Acetaminophen (NORCO 5/325) 1 TAB PACU ONCE PO (CKD) Insulin Human Lispro (HUMALOG) 0 PACU ONCE PRN SUBQ Labetalol HCl (LABETALOL HCL) 5 MG PACU Q10MIN PRN PRN IV Meperidine HCl (MEPERIDINE HCL/PF) 12.5 MG PACU ONCE PRN IV Ondansetron HCl (ZOFRAN) 4 MG PACU ONCE PRN IV Ropivacaine (NAROPIN 0.5% 150 MG/30mL) 150 MG ASDIR PRN LOCAL Sodium Chloride (SODIUM CHLORIDE 0.9%) 1,000 ML .Q24H IV Tramadol HCl (ULTRAM) 50 MG PACU ONCE PO (CKD) Thrombin (RECOTHROM) 0 .STK-MED ONE TOPICAL (DC) Heparin Sodium (HEPARIN SODIUM) 0 .STK-MED ONE .ROUTE (DC) Fentanyl Citrate (SUBLIMAZE) 0 .STK-MED ONE .ROUTE (DC) Heparin Sodium/Sodium Chloride (HEPARIN 2,000 UNITS/NS 1,000mL) 1,000 ML .STK-MED ONE IV (DC) Heparin Sodium/Sodium Chloride (HEPARIN 1,000 UNITS/NS 500ML) 500 ML .STK-MED ONE IV (DC) Iopamidol (ISOVUE-370 100ML) 0 .STK-MED ONE IV (DC) Epinephrine HCl (EPINEPHrine 4 mg/D5W 250 mL) 250 ML .STK-MED ONE IV (DC) Norepinephrine Bitartrate (NOREPINEPHRINE 8 MG/NS 250 ML) 250 ML .STK-MED ONE IV (DC) Etomidate (AMIDATE) 0 .STK-MED ONE IV (DC) Rocuronium [place] (ZEMURON) 0 .STK-MED ONE IV (DC) Dorzolamide HCl (TRUSOPT 10 ML OPHTH SOLN) 1 DROP TID EACH EYE Midodrine (PROAMATINE) 7.5 MG 0800,1200,1600 PO Epoetin Tanner-epbx (RETACRIT) 10,000 UNIT TuThSa@2100 IV Loperamide HCl (IMODIUM CAPSULE) 2 MG QID PRN PRN PO Aspirin (ASPIRIN) 81 MG DAILY PO Acetaminophen (TYLENOL) 650 MG Q6H PRN PRN PO Atorvastatin Calcium (LIPITOR) 40 MG BEDTIME PO Albumin Human (ALBUMINAR-25%) 12.5 GM ASDIR PRN IV Heparin Sodium (Porcine) (HEPARIN SODIUM) 3,000 UNIT ASDIR PRN DIALYSIS Lidocaine HCl (LIDOCAINE HCL/PF) 0.5 ML ASDIR PRN I-DERMAL (CKD) Mannitol (Mannitol 20%) 12.5 GM ASDIR PRN IV Sodium Chloride (SODIUM CHLORIDE 0.9%) 2,000 ML ASDIR PRN IV Sodium Chloride (SODIUM CHLORIDE) 5 ML ASDIR PRN IV Sodium Chloride (SODIUM CHLORIDE) 10 ML ASDIR PRN IV Sodium Chloride (SODIUM CHLORIDE 0.9%) 250 ML ASDIR PRN IV General appearance: chronically ill appearing, respiratory support, alert, awake, no acute distress, no respiratory distressHead/Eyes: atraumatic, clear cornea, normocephalic, bilateral eye surgeryENT: dry mucosal membrane, poor dentitionNeck: full range of motion, non-tender, no JVD, no masses or swellingCardiovascular: decreased cap refill, pedal edema, normal heart sounds, regular rate and rhythm, normal S1/S2, no ectopyRespiratory: decreased breath sounds, symmetric expansion, no distressAbdomen: soft, non-tender, normal bowel soundsGenitourinary: no bladder distention, no flank pain, DTVExtremities: abnormal capillary refill, decreased range of motion, edema, pedal pulsesMusculoskeletal: decreased ROM, no muscle spasmNeuro/CREDENTIALS SPECIALIST: alert, no motor deficits, no sensory deficitsSkin: abnormal color, normal temperature, no rashUlcer: Type/cause: diabetic (right heel ulcer), arterial Location: foot, heel Laterality: bilateralWound/incision: Location:Right axillary impella sitePsychiatry: unable to evaluate ResultsFindings/Data:Laboratory Tests 07/21/23 0935:[Embedded Image Not Available]Laboratory Tests 07/21 1604 Blood Gas Puncture Site Central Line O2 Saturation (90 - 100 %) 100.0 ABG pH (7.35 - 7.45) 7.556 *H ABG pCO2 (35.0 - 45 mmHg) 29.3 *L ABG pO2 (80 - 100.0 mmHg) 451.3 *H ABG PO2/FiO2 Ratio (mm/Hg) 451.30 ABG HCO3 (22.0 - 26.0 MMOL/L) 26.0 ABG Total CO2 26.9 ABG Base Excess (-4.0 - 4.0 MMOL/L) 3.7 O2 Delivery Device Adult Vent Vent Mode anesthesia vent. FiO2 (%) 100 Laboratory Tests 07/21 07/21 1046 0935 Chemistry Sodium (134 - 147 mEq/L) 131 L Potassium (3.4 - 5.0 mEq/L) 3.8 Chloride (100 - 108 mEq/L) 94 L Carbon Dioxide (21 - 33 mEq/l) 30 Anion Gap (0 - 20) 11 BUN (7 - 25 mg/dL) 19 Creatinine (0.6 - 1.3 mg/dL) 2.5 H Glomerular Filtr Rate (80 - 90) 20.7 L Glucose (77 - 141 mg/dL) 143 H POC Glucose (70 - 110 MG/DL) 141 H Calcium (8.0 - 10.5 mg/dL) 8.4 Laboratory Tests 07/21 07/21 07/21 07/21 07/21 1557 1515 1503 1445 1431 Coagulation Activated Coag Time (74 - 137 SEC) 287 H 329 H 299 H 263 H 203 H Laboratory Tests 07/21 09 Hematology WBC (4.5 - 11.0 x10 3/uL) 11.7 H RBC (3.54 - 5.02 x10 6/uL) 2.67 L Hgb (11.0 - 15.0 g/dL) 9.0 L Hct (33.0 - 45.0 %) 28.8 L MCV (81.0 - 99.0 fL) 107.9 H MCH (27.0 - 33.0 pg) 33.7 H MCHC (33.0 - 37.0 g/dL) 31.3 L RDW (11.5 - 14.5 %) 18.7 H Plt Count (150 - 400 x10 3/uL) 248 MPV (7.0 - 9.0 fL) 12.3 H Neut % (Auto) (56.0 - 77.0 %) 73.3 Lymph % (Auto) (14.0 - 32.0 %) 12.6 L [place] % (Auto) (4.8 - 9.0 %) 11.2 H Eos % (Auto) (0.3 - 3.7 %) 2.1 Baso % (Auto) (0.0 - 2.0 %) 0.2 Neut # (Auto) (2.0 - 7.6 x10 3/uL) 8.58 H Lymph # (Auto) (1.0 - 3.8 x10 3/uL) 1.48 [place] # (Auto) (0.1 - 0.8 x10 3/uL) 1.31 H Eos # (Auto) (0.0 - 0.2 x10 3/uL) 0.24 H Baso # (Auto) (0.0 - 0.2 x10 3/uL) 0.02 Abs Immat Gran (auto) (0.00 - 0.03 x10 3/uL) 0.07 H Add Manual Diff NO Immature Gran % (0.0 - 2.0 %) 0.6 Nucleated RBC % (0 - 0 %) 0.9 H Nucleated RBCs # (Man) (0.0 - 0.1 x10 3/uL) 0.10 Treatment Prophylaxis Treatment ProphylaxisOxygen: simple maskLines: arterial, CVC (Right chest), Impella (R axillary)CVC/PICC documentation:The data below has been imported from nursing documentation. Any exceptions have been noted below under Provider comments. CVC/PICC insertion date/time: CVC multi lumen double Internal jugular Right Inserted 07/12/23535 Dialysis catheter double Chest Right Inserted 07/12/23535 Provider comments on imported nursing data: [] IV fluids: NS Diagnosis, Assessment Plan Diagnosis, Assessment PlanOrders: Procedure Date/time Status PROTHROMBIN TIME 07/21 1802 Active PHOSPHOROUS 07/21 175 Active MAGNESIUM 07/21 175 Active LACTIC ACID 07/21 175 Active CBC W/AUTO DIFF 07/21 175 Active CALCIUM IONIZED 07/21 175 Active BASIC METABOLIC PANEL 07/21 175 Active Consultants: cardiology, nephrologyPlan discussed with: patient, collaborating MD, nurse Code Status/Resusc. DiscussionCode status: full codeFree text DxA P: Joseph Mccullough is a 68-year-old female with a DM1, HTN, severe cardiomyopathy, HFwith EF of 25% as well as severe MR, ESRD, on dialysis since July 2022, whopresented to her inventory management specialist for evaluation of bilateral nonhealing ulcerationsof her bilateral heels for the past 3 months, and shortness of breath with exertion. She underwent elective coronary and peripheral angiogram on 07/12, which revealed multivessel CAD and severe bilateral PAD. she was then evaluated by Vascular and CT surgery. Patient was deemed not a candidtae for CABG surgery. PCI with impella placement was planned with CVsx on standby. Today patient is transferred to CCU room # 3306 post PCI with impella support via R axillary region. Site has surgical dressing in place, some oozing noted. She is drowsy but easy to arouse, she is following commands. Oxygen via face mask, sats 100%. B/p 107/67 (78), HR 78. Reports pain to surgical site. Plan:Monitor closely in the CCUS/p PCI to LAD, L main and Cirx, impella supportMonitor site for bleeding, hematoma formation. Apply sand bag to site per .Systemic heparin per protocol. PTT ordered.Obtain EKG. CXR. Post op blood workECHO in progressStable b/p. As needed IVF/Colloid resuscitation, check lactatePlavix, ASA per surgeryStatinPain control- tramadol, fentanylMonitor renal function, she is on HD, renal on boardHyponatremic- ranging from 128-133, moniResume pre-op diet, will add bowel care. She received 5-day course of rocephin for Klebsiella PneumoniaePT/OT and wound care.DVT ppx: To start heparin dripNo need for GI ppx.Dispo: CCU. Patient is a full code. Thank you for allowing us to participate in the care of this patient, will follow along during hospital stay.I spent 45 minutes of critical care reviewing labs, imaging and discussing plan of care with ICC team. at 1956 RPT #:[id number] OF REPORTNAZcvobjpnicxa8750-55-01V19:02:00G.PD [id number] for patient bwetDYUPKNPQXREORR0346-43-70W69:57:04 [facility] 2023-07-21 12:05:00 [id number] AVMPB3 RKilk4NnRuSlpibnLXbsZUvRooSzSq1085-09-63D45:05 :00 [facility] ([facility])Hospitalist Progress NoteREPORT#:[id number] REPORT STATUS: SignedDATE:07/21/23 TIME: 1205 PATIENT: JOSEPH ROWLEY UNIT #: [id number]#: [id number] ROOM/BED: 3306-1DOB: [birth year] AGE: 68 SEX: F ATTEND: Tanvir Prasad [facility] AUTHOR: Violetta Davis MD * ALL edits or amendments must be made on the electronic/computer document * SubjectiveChief complaint:she is seen in the chemical laboratory assistant . she will have PCI with impella today . HPI:Patient had a fever spike yesterday was started on empiric antibiotics with UA abnormal system of UTI she is less confused and more alert per patient/family atbedside Review of SystemsAll systems rev neg: except as noted Objective GeneralVS/I O:Vital Signs: Date Time Temp Pulse Resp B/P B/P Pulse O2 O2 Flow FiO2 Mean Ox Delivery Rate 07/21 1130 36.4 64 21 117/55 96 07/21 0918 36.4 63 14 119/60 0.0 100 Room air 07/21 0417 36.7 75 14 120/58 0.0 95 Room air / 0007 37.0 74 14 103/57 0.0 100 Nasal cannula 07/20 2230 92 Room air 21 /06 1903 36.9 75 15 109/53 0.0 92 Room air 07/20 1708 36.2 81 20 128/58 100 Room air 07/20 1634 36.2 80 14 117/58 0.0 94 07/20 1300 36.4 65 16 109/55 100 Room air 24 hour I O ending at 0700: 07/21 0700 07/20 1900 Intake Total 200 600 Output Total 2500 Balance 200 -1900 Intake, Oral 200 600 Number Voids 1 Output, 2500 Hemodialysis Patient 67.2 kg Weight Weight Bed scale Measurement Method PATIENT WEIGHT: Weight (lb): 148Weight (oz): 2.41Weight (kg): 67.200 Medications:Active Meds + DC'd Last 24 HrsHeparin Sodium/Sodium Chloride (HEPARIN 2,000 UNITS/NS 1,000mL) 1,000 ML .STK-MED ONE IV (DC) Heparin Sodium/Sodium Chloride (HEPARIN 1,000 UNITS/NS 500ML) 500 ML .STK-MED ONE IV (DC) Iopamidol (ISOVUE-370 100ML) 0 .STK-MED ONE IV (DC) Epinephrine HCl (EPINEPHrine 4 mg/D5W 250 mL) 250 ML .STK-MED ONE IV (DC) Norepinephrine Bitartrate (NOREPINEPHRINE 8 MG/NS 250 ML) 250 ML .STK-MED ONE IV (DC) Etomidate (AMIDATE) 0 .STK-MED ONE IV (DC) Rocuronium [place] (ZEMURON) 0 .STK-MED ONE IV (DC) Dorzolamide HCl (TRUSOPT 10 ML OPHTH SOLN) 1 DROP TID EACH EYE Midodrine (PROAMATINE) 7.5 MG 0800,1200,1600 PO Epoetin Tanner-epbx (RETACRIT) 10,000 UNIT TuThSa@2100 IV Loperamide HCl (IMODIUM CAPSULE) 2 MG QID PRN PRN PO Aspirin (ASPIRIN) 81 MG DAILY PO Acetaminophen (TYLENOL) 650 MG Q6H PRN PRN PO Atorvastatin Calcium (LIPITOR) 40 MG BEDTIME PO Albumin Human (ALBUMINAR-25%) 12.5 GM ASDIR PRN IV Heparin Sodium (Porcine) (HEPARIN SODIUM) 3,000 UNIT ASDIR PRN DIALYSIS Lidocaine HCl (LIDOCAINE HCL/PF) 0.5 ML ASDIR PRN I-DERMAL (CKD) Mannitol (Mannitol 20%) 12.5 GM ASDIR PRN IV Sodium Chloride (SODIUM CHLORIDE 0.9%) 2,000 ML ASDIR PRN IV Sodium Chloride (SODIUM CHLORIDE) 5 ML ASDIR PRN IV Sodium Chloride (SODIUM CHLORIDE) 10 ML ASDIR PRN IV Sodium Chloride (SODIUM CHLORIDE 0.9%) 250 ML ASDIR PRN IV Physical ExamGeneral appearance: alert, awake, orientedHead/Eyes: atraumatic, normal conjunctiva/sclera, normal eyelids/periorb.Neck: full range of motionCardiovascular: normal capillary refill, normal heart sounds, regular rate rhythmRespiratory: aerating well, clear to auscultation, symmetric expansion, no distressAbdomen: non-tender, normal bowel sounds, soft, no distentionExtremities: no edemaNeuro/CREDENTIALS SPECIALIST: alert, oriented X 3Ulcer: Type/cause: diabetic (right heel ulcer), arterialPsychiatry: depressed ResultsFindings/Data:Laboratory Tests 07/21 07/21 07/20 1046 0935 1632 Chemistry Sodium (134 - 147 mEq/L) 131 L Potassium (3.4 - 5.0 mEq/L) 3.8 Chloride (100 - 108 mEq/L) 94 L Carbon Dioxide (21 - 33 mEq/l) 30 Anion Gap (0 - 20) 11 BUN (7 - 25 mg/dL) 19 Creatinine (0.6 - 1.3 mg/dL) 2.5 H Glomerular Filtr Rate (80 - 90) 20.7 L Glucose (77 - 141 mg/dL) 143 H POC Glucose (70 - 110 MG/DL) 141 H 91 Calcium (8.0 - 10.5 mg/dL) 8.4 Laboratory Tests 07/21 0935 Hematology WBC (4.5 - 11.0 x10 3/uL) 11.7 H RBC (3.54 - 5.02 x10 6/uL) 2.67 L Hgb (11.0 - 15.0 g/dL) 9.0 L Hct (33.0 - 45.0 %) 28.8 L MCV (81.0 - 99.0 fL) 107.9 H MCH (27.0 - 33.0 pg) 33.7 H MCHC (33.0 - 37.0 g/dL) 31.3 L RDW (11.5 - 14.5 %) 18.7 H Plt Count (150 - 400 x10 3/uL) 248 MPV (7.0 - 9.0 fL) 12.3 H Neut % (Auto) (56.0 - 77.0 %) 73.3 Lymph % (Auto) (14.0 - 32.0 %) 12.6 L [place] % (Auto) (4.8 - 9.0 %) 11.2 H Eos % (Auto) (0.3 - 3.7 %) 2.1 Baso % (Auto) (0.0 - 2.0 %) 0.2 Neut # (Auto) (2.0 - 7.6 x10 3/uL) 8.58 H Lymph # (Auto) (1.0 - 3.8 x10 3/uL) 1.48 [place] # (Auto) (0.1 - 0.8 x10 3/uL) 1.31 H Eos # (Auto) (0.0 - 0.2 x10 3/uL) 0.24 H Baso # (Auto) (0.0 - 0.2 x10 3/uL) 0.02 Abs Immat Gran (auto) (0.00 - 0.03 x10 3/uL) 0.07 H Add Manual Diff NO Immature Gran % (0.0 - 2.0 %) 0.6 Nucleated RBC % (0 - 0 %) 0.9 H Nucleated RBCs # (Man) (0.0 - 0.1 x10 3/uL) 0.10 Diagnosis, Assessment PlanConsultants: cardiology, nephrology Free Text DxA P NotesFree text DxA P notes:68-year-old female with a past medical history of type 1 diabetes from the age of 46 years old, end-stage renal disease, on dialysis since July 2022, hypertension who presented to her inventory management specialist for evaluation of bilateral nonhealing ulcerations of her bilateral heels for the past 3 months, and shortness of breath with exertion. Left heart catheterization showed significant for severe three-vessel coronary artery disease with severe bilateral occluded SFAs of the lower extremity. Issues as below. Suspected urinary tract infectionSevere three-vessel CADSevere peripheral vascular diseaseDiabetes mellitusEnd-stage renal failure on hemodialysis Nonhealing bilateral heel ulcerationsHypertensionHyperlipidemiaCHF Mitral valve regurgitation Plan and recommendations Patient admitted into medicineVital signs every 4PatientAntiplatelets and statin per cardiologySeen by vascular surgery" CT surgery. Nephrology for hemodialysis. Will do basic lab work include CBC BMP now. Patient is not having significant hypoxia at this timeDVT prophylaxisRestart home medicationsDiscussed management plan in detail with patient's family. 07/13/[address] surgery and vascular surgery plansHemodialysis was done yesterdayHemodialysis per nephrologyMonitor renal functionBlood sugar control with insulin pump. 07/14/2023 Fever spike last night blood cultures on empiric antibiotics for possible UTIAntibiotics changedFollow-up on culturesFollow-up on cardiothoracic surgery and oncology recommendations plan to have discussion tomorrowBlood sugars controlledLab work otherwise stableDVT prophylaxisHemodialysis per nephrology 07/15- take over care from another group -- review all lab and image -- she is seen in the stress test lab . no cp no sob -- urine culture --positive continue rocephin iv -- blood culture -- no grow -- stress test -- pending --continue HD as schedule 07/16 High revascularization risk, will be discussed on Tuesday in clinical conference, ejection fraction 28%, viable tissue except apical scar, continue with dialysis, severe peripheral artery disease with heel ulcers, mitral valve regurgitation. 07/17 conference on Tuesday regarding the decision to proceed with revascularization, depressed, wound care to heels, increase midodrine to 10 mg 3times daily in view of persistent hypotension. 07/18 hyponatremic with sodium of 128, on hemodialysis, blood pressure has improved on midodrine, revascularization decision in a.m., daughter is at bedside, wound care. 07/19- no cp no sob -- family are in the room -- conference decision -pending -- continue current management 07/20- she is weak -- no cp -- spoke to cardiology continue monitor in CV1 will present the case in tuesday conference continue medical treatment 07/21- she is seen in the chemical laboratory assistant --PCI /impella -- afternoon -- lab am at 1707 RPT #:[id number] OF REPORTPRProgress [id number]:05:00G.[id number] ailable for patient iejySHHRKOOTJGTGEE3462-69-37P22:07:36 [facility] 2023-07-21 09:24:00 [id number]+JZN/ MiKDgO [id number]-92-06W49:24 :00 [facility] ([facility]Nephrology Progress NoteREPORT#:[id number] REPORT STATUS: SignedDATE:07/21/23 TIME: 923 PATIENT: JOSEPH ROWLEY UNIT #: [id number]#: [id number] [address]: [birth year] AGE: 68 SEX: F ATTEND: Tanvir Prasad MDADM AUTHOR: Winnie Noyola MD * ALL edits or amendments must be made on the electronic/computer document * SubjectiveChief complaint:follow up of ESRDComments:Planned for possible PCI today with cardiology. Objective GeneralVS/I O:Vital Signs: Date Time Temp Pulse Resp B/P B/P Pulse O2 O2 Flow FiO2 Mean Ox Delivery Rate 07/21 918 97.5 63 14 119/60 0.0 100 Room air 07/21 0417 98.1 75 14 120/58 0.0 95 Room air 07/21 0007 98.6 74 14 103/57 0.0 100 Nasal cannula 07/20 2230 92 Room air 21 07/20 1903 98.4 75 15 109/53 0.0 92 Room air 07/20 1708 97.2 81 20 128/58 100 Room air 07/20 1634 97.2 80 14 117/58 0.0 94 07/20 1300 97.5 65 16 109/55 100 Room air 07/20 1137 97.3 73 20 118/72 87.3 98 24 hour I O ending at 0700: 07/21 0700 07/20 1900 Intake Total 200 600 Output Total 2500 Balance 200 -1900 Intake, Oral 200 600 Number Voids 1 Output, 2500 Hemodialysis Patient 67.2 kg Weight Weight Bed scale Measurement Method PATIENT WEIGHT: Weight (lb): 148Weight (oz): 2.41Weight (kg): 67.200 MedicationsActive Meds + DC'd Last 24 HrsDorzolamide HCl (TRUSOPT 10 ML OPHTH SOLN) 1 DROP TID EACH EYE Midodrine (PROAMATINE) 7.5 MG 0800,1200,1600 PO Epoetin Tanner-epbx (RETACRIT) 10,000 UNIT TuThSa@2100 IV Loperamide HCl (IMODIUM CAPSULE) 2 MG QID PRN PRN PO Aspirin (ASPIRIN) 81 MG DAILY PO Acetaminophen (TYLENOL) 650 MG Q6H PRN PRN PO Atorvastatin Calcium (LIPITOR) 40 MG BEDTIME PO Albumin Human (ALBUMINAR-25%) 12.5 GM ASDIR PRN IV Heparin Sodium (Porcine) (HEPARIN SODIUM) 3,000 UNIT ASDIR PRN DIALYSIS Lidocaine HCl (LIDOCAINE HCL/PF) 0.5 ML ASDIR PRN I-DERMAL (CKD) Mannitol (Mannitol 20%) 12.5 GM ASDIR PRN IV Sodium Chloride (SODIUM CHLORIDE 0.9%) 2,000 ML ASDIR PRN IV Sodium Chloride (SODIUM CHLORIDE) 5 ML ASDIR PRN IV Sodium Chloride (SODIUM CHLORIDE) 10 ML ASDIR PRN IV Sodium Chloride (SODIUM CHLORIDE 0.9%) 250 ML ASDIR PRN IV Physical ExamGeneral appearance: alert, awake, orientedHead/eyes: atraumatic, normocephalic, PERRLAENT: moist mucous membranesNeck: no JVD, no lymphadenopathy, no masses or swellingCardiovascular: normal heart sounds, regular rate and rhythm, no murmur, no rubRespiratory: aerating well, clear to auscultation, normal breath sounds, no distressAbdomen: non-tender, normal bowel sounds, soft, no reboundGenitourinary: no bladder distention, no flank pain, no urinary catheterExtremities: no edema, no gangreneNeuro/CREDENTIALS SPECIALIST: alert, oriented X 3, CN II-XII intact, normal speechUlcer: Type/cause: diabetic (right heel ulcer), arterial ResultsFindings/Data:Laboratory Tests 07/20 1632 Chemistry POC Glucose (70 - 110 MG/DL) 91 Diagnosis, Assessment PlanFree Text A P:1. ESRD continue with dialysis Tuesday. HD in a.m.2. Hypotension on midodrine 3. Coronary artery disease PCI today 4. Diabetes type 1 per primary team 5. Anemia of CKD on MATT as hemoglobin less than 10, 10,000 unit 3 times a week 6. hyponatremia Repeat lab in the morning. P.o. fluid restriction 1.2 L/day at 1431 [facility] #:[id number] OF REPORTPRProgress [id number]:24:00G.[id number] ailable for patient wkbzTEECUUJSKGFRZO8061-10-07F02:31:18 [facility] [place] 2023-07-21 09:12:00 [id number] fSgP+q HyLZYdC3kH5H/[id number]:12 :00 [facility] ProgREPORT#:[id number] REPORT STATUS: SignedREPORT INITIALIZATION DATE:07/21/23 TIME: 911 PATIENT: JOSEPH ROWLEY UNIT #: [id number]#: [id number] [address] [birth year] AGE: 68 SEX: F ATTEND: Tanvir Prasad MDADM AUTHOR: Trudy Colindres PhysicREPT SERVICE DT/TIME: 07/21/23911* ALL edits or amendments must be made on the electronic/computer document * SubjectiveChief complaint:CAD, eval for CABGPVD nonhealing lower extremity ulcersPatient resting comfortable.Denies chest pain Review of SystemsConstitutional:Denies: fever, generalized weakness. Allergy/Immun:Denies: itching, rhinorrhea. Eyes:Denies: itching, diplopia. Respiratory:Denies: VICENTE (dyspnea on exertion), hemoptysis. Cardiovascular:Denies: VICENTE (dyspnea on exertion), edema. GI:Denies: constipation, diarrhea. Musculoskeletal:Denies: joint pain, joint swelling. Heme:Denies: bleeding, bruising. Endocrine:Denies: polydipsia, polyuria. All systems rev neg: except as marked Objective GeneralVS/I OLast Documented: Result Date Time Pulse Ox 95 07/21 417 B/P 120/58 07/21 417 B/P Mean 0.0 07/21 417 O2 Delivery Room air 07/21 417 Temp 98.1 07/21 417 Pulse 75 07/21 417 Resp 14 07/21 417 FiO2 21 07/20 2230 O2 Flow Rate 5 07/15 1635 24 hour I O ending at 0700: 07/21 0700 07/20 1900 Intake Total 200 600 Output Total 2500 Balance 200 -1900 Intake, Oral 200 600 Number Voids 1 Output, 2500 Hemodialysis Patient 67.2 kg Weight Weight Bed scale Measurement Method PATIENT WEIGHT: Weight (lb): 148Weight (oz): 2.41Weight (kg): 67.200 Physical ExamGeneral appearance: alert, awake, orientedHEENT: anicteric, mucosal membranes moistCardiovascular: BP/pulses equal bilat., regular rate rhythmRespiratory: aerating well, clear to auscultationAbdomen: soft, non-tenderExtremities: dry, moves allMusculoskeletal: full range of motion, painless range of motionNeuro/CREDENTIALS SPECIALIST: alert, oriented X 3Skin: dry, intactUlcer: Type/cause: diabetic (right heel ulcer), arterial Diagnosis, Assessment PlanHospital course to date: This is a very pleasant 68-year-old female with a past medical history of type 1diabetes from the age of 46 years old, end-stage renal disease, on dialysis sinceSept2021, hypertension who presented to her inventory management specialist for evaluation ofbilateral nonhealing ulcerations of her bilateral heels for the past 3 months, and shortness of breath with exertion. Her last echocardiogram was completed with her inventory management specialist showing an EF 20-25%with mild LVH, severe global hypokinesis, mildly dilated left atrium with moderate aortic sclerosis without stenosis, mitral valve leaflets mildly thickened with severe MR, mild to moderate TR, moderate pulmonary hypertension with an RV systolic pressure 62 mmHg. Patient underwent left heart catheterization today and was found to have severe three-vessel coronary artery disease, with severe bilateral occluded SFAs of thelower extremity. CV surgery consulted for evaluation for coronary artery bypass graft surgery Assessment/plan1. Severe three-vessel CAD2. Type I diabetic3. Severe peripheral vascular disease4. Nonhealing bilateral heel ulcerations5. Hypertension6. Hyperlipidemia7. CHF Documented EF 20-25% in the outpatient setting . Mitral valve regurgitation Noted to be severe on echocardiogram from March 2023 in the outpatient setting Patient with severe multivessel CAD. Patient will be worked up for CAD, Further recs to follow. Thank you for this consult. 07/12/23 Echo Left ventricle: The cavity size is normal. Wall thickness is normal. Systolic function is severely reduced. The estimated ejection fraction is 30-34%. Severe diffuse hypokinesis. Doppler parameters are consistent with restrictive physiology, indicative of decreased left ventricular diastolic compliance and/or increased left atrial pressure. Average global longitudinal strain is -5.7.2. Right ventricle: Systolic function is mildly to moderately reduced. Systolic pressure is severely increased.3. Left atrium: The atrium is dilated. The end-systolic volume index (A-L) is 50 ml/m 2.4. Mitral valve: The annulus is calcified. Prolapse cannot be excluded. There is moderate to severe regurgitation, directed posteriorly and along the left atrial wall. The effective regurgitant orifice (PISA) is 0.39 cm 2. The regurgitant volume (PISA) is 46 ml.5. Tricuspid valve: Estimated right ventricular systolic pressure is 76 mmHg. There is moderate-severe regurgitation directed toward the septum.6. Pericardium, extracardiac: There is a large left pleural effusion.7. Inferior vena cava: The vessel is dilated. The respirophasic diameter changes are blunted (< 50%). Inferior vena cava diameter measures 2.2 cm. 07/13/23Patinet resting comfortable, Denies any new complaints. On room air. Sinus rhythm. AAO x 3Cardiac workup still underway. CTA head, abdomena nd pelvis ordered by cardiology. Patient will be presented in the high risk cardiology conference. Further recs to follow. 07/14/23Patient resting comfortable,Denies chest painsComplains of bilateral heel ulcerationsSinus rhythmOn room airCarotid Doppler showed no carotid artery stenosisPatient is considered high risk due to multiple comorbidities, ESRD, CHF, DMPatient will be discussed in the high risk conferenceFurther recommendations toPatient was seen with Dr. Sousa 07/15/23Patient resting comfortableDenies complaints, denies chest painsRemains on room airSinus rhythmPatient underwent viability study today. Pending resultsOn dialysis, followed by renalPatient STS score estimated at 50%Further recommendations to follow 07/16/23Patient resting comfortable, denies chest painNo new complaintsRemains on room airSinus rhythmPending viability study results.Dialysis per renal.Patient will be discussed in the high risk conference next week. 07/17/23Patient resting comfortable, No complaints. Remains sinus rhythm. on room air. Viability study completed EF 28%Dialysis as per renalMedical management as per cardiologyPatient will be discussed in high risk conference next week. 07/18/23Patient resting comfortableDenies chest painsOn room airDialysis planned for todayRemains sinus rhythmAnemia managed per nephrologyPatient will be discussed in the high risk cardiology conferenceFurther recommendations to follow 07/19/23Patient resting comfortable. Denies chest pains. AAO x 3on room air. Dialysis yesterday. Free Text A P:This is a very pleasant 68-year-old female with a past medical history of type 1diabetes from the age of 46 years old, end-stage renal disease, on dialysis sinceSept2021, hypertension who presented to her inventory management specialist for evaluation ofbilateral nonhealing ulcerations of her bilateral heels for the past 3 months, and shortness of breath with exertion. Her last echocardiogram was completed with her inventory management specialist showing an EF 20-25%with mild LVH, severe global hypokinesis, mildly dilated left atrium with moderate aortic sclerosis without stenosis, mitral valve leaflets mildly thickened with severe MR, mild to moderate TR, moderate pulmonary hypertension with an RV systolic pressure 62 mmHg. Patient underwent left heart catheterization today and was found to have severe three-vessel coronary artery disease, with severe bilateral occluded SFAs of thelower extremity. CV surgery consulted for evaluation for coronary artery bypass graft surgery Assessment/plan1. Severe three-vessel CAD2. Type I diabetic3. Severe peripheral vascular disease4. Nonhealing bilateral heel ulcerations5. Hypertension6. Hyperlipidemia7. CHF Documented EF 20-25% in the outpatient setting . Mitral valve regurgitation Noted to be severe on echocardiogram from March 2023 in the outpatient setting Patient with severe multivessel CAD. Patient will be worked up for CAD, Further recs to follow. Thank you for this consult. 07/12/23 Echo Left ventricle: The cavity size is normal. Wall thickness is normal. Systolic function is severely reduced. The estimated ejection fraction is 30-34%. Severe diffuse hypokinesis. Doppler parameters are consistent with restrictive physiology, indicative of decreased left ventricular diastolic compliance and/or increased left atrial pressure. Average global longitudinal strain is -5.7.2. Right ventricle: Systolic function is mildly to moderately reduced. Systolic pressure is severely increased.3. Left atrium: The atrium is dilated. The end-systolic volume index (A-L) is 50 ml/m 2.4. Mitral valve: The annulus is calcified. Prolapse cannot be excluded. There is moderate to severe regurgitation, directed posteriorly and along the left atrial wall. The effective regurgitant orifice (PISA) is 0.39 cm 2. The regurgitant volume (PISA) is 46 ml.5. Tricuspid valve: Estimated right ventricular systolic pressure is 76 mmHg. There is moderate-severe regurgitation directed toward the septum.6. Pericardium, extracardiac: There is a large left pleural effusion.7. Inferior vena cava: The vessel is dilated. The respirophasic diameter changes are blunted (< 50%). Inferior vena cava diameter measures 2.2 cm. 07/13/23Patinet resting comfortable, Denies any new complaints. On room air. Sinus rhythm. AAO x 3Cardiac workup still underway. CTA head, abdomena nd pelvis ordered by cardiology. Patient will be presented in the high risk cardiology conference. Further recs to follow. 07/14/23Patient resting comfortable,Denies chest painsComplains of bilateral heel ulcerationsSinus rhythmOn room airCarotid Doppler showed no carotid artery stenosisPatient is considered high risk due to multiple comorbidities, ESRD, CHF, DMPatient will be discussed in the high risk conferenceFurther recommendations toPatient was seen with Dr. Sousa 07/15/23Patient resting comfortableDenies complaints, denies chest painsRemains on room airSinus rhythmPatient underwent viability study today. Pending resultsOn dialysis, followed by renalPatient STS score estimated at 50%Further recommendations to follow 07/16/23Patient resting comfortable, denies chest painNo new complaintsRemains on room airSinus rhythmPending viability study results.Dialysis per renal.Patient will be discussed in the high risk conference next week. 07/17/23Patient resting comfortable, No complaints. Remains sinus rhythm. on room air. Viability study completed EF 28%Dialysis as per renalMedical management as per cardiologyPatient will be discussed in high risk conference next week. 07/18/23Patient resting comfortableDenies chest painsOn room airDialysis planned for todayRemains sinus rhythmAnemia managed per nephrologyPatient will be discussed in the high risk cardiology conferenceFurther recommendations to follow 07/19/23Patient resting comfortableDenies chest painsComplains of heel painsOn room airSinus rhythmPatient was seen and examined with Dr. Lyon.Patient is high risk for surgical intervention.Dr. Lyon will discuss with cardiology and patient will be discussed in the high risk cardiology conference this week. 07/20/23Patient resting comfortableNo new complaintsOn room airSinus rhythmBilateral heel ulcers. Vascular followingPatient will be discussed in the high risk cardiology conference on TuesdayPatient seen and examined with Dr. Lyon 07/21/23Patient resting comfortable.Denies chest pains. ON room air. sinus rhythm. Wound care follwoing bilateral heal ulcers. Vascular follwoing. Planned for possible PCI today with Impella planned for today. CV surgery will be on standbyPatient considered high risk for CABG surgery. Patient seen and examined at [facility]: cardiology, nephrology at 1620 at 1743 RPT #:[id number] OF REPORTPRProgress [id number]:12:00G.[id number] ailable for patient oqfeIRDHHSLXVYTLWH2787-65-24G89:21:17 [facility] [place] 2023-07-21 07:35:00 [id number]+WJwixJKQypb2X7x zYYWDr +FbAgsVlD1KMBWkzx2/aqiqNO/gqdi2185-77-23J16:35 :00 [facility] ([facility])Cardiology Progress NoteREPORT#:[id number] REPORT STATUS: SignedDATE:07/21/23 TIME: 734 PATIENT: JOSEPH ROWLEY UNIT #: [id number]#: [id number] [address] [birth year] AGE: 68 SEX: F ATTEND: Tanvir Prasad AUTHOR: Yue Barragan AGACNP * ALL edits or amendments must be made on the electronic/computer document * Yue Barragan 07/21/23 0735:SubjectiveComments:no acute cardiac events Objective GeneralVS/I O:24 hour I O ending at 0700: 07/21 0700 07/20 1900 Intake Total 200 600 Output Total 2500 Balance 200 -1900 Intake, Oral 200 600 Number Voids 1 Output, 2500 Hemodialysis Patient 67.2 kg Weight Weight Bed scale Measurement Method Vital Signs: Date Time Temp Pulse Resp B/P B/P Pulse O2 O2 Flow FiO2 Mean Ox Delivery Rate 07/21 0417 36.7 75 14 120/58 0.0 95 Room air 07/21 0007 37.0 74 14 103/57 0.0 100 Nasal cannula 07/20 2230 92 Room air 21 09 1903 36.9 75 15 109/53 0.0 92 Room air 07/20 1708 36.2 81 20 128/58 100 Room air 07/20 1634 36.2 80 14 117/58 0.0 94 07/20 1300 36.4 65 16 109/55 100 Room air 07/20 1137 36.3 73 20 118/72 87.3 98 07/20 0759 36.5 69 19 121/58 0.0 94 PATIENT WEIGHT: Weight (lb): 148Weight (oz): 2.41Weight (kg): 67.200 Medications:Active Meds + DC'd Last 24 HrsDorzolamide HCl (TRUSOPT 10 ML OPHTH SOLN) 1 DROP TID EACH EYE Midodrine (PROAMATINE) 7.5 MG 0800,1200,1600 PO Epoetin Tanner-epbx (RETACRIT) 10,000 UNIT TuThSa@2100 IV Loperamide HCl (IMODIUM CAPSULE) 2 MG QID PRN PRN PO Aspirin (ASPIRIN) 81 MG DAILY PO Acetaminophen (TYLENOL) 650 MG Q6H PRN PRN PO Atorvastatin Calcium (LIPITOR) 40 MG BEDTIME PO Albumin Human (ALBUMINAR-25%) 12.5 GM ASDIR PRN IV Heparin Sodium (Porcine) (HEPARIN SODIUM) 3,000 UNIT ASDIR PRN DIALYSIS Lidocaine HCl (LIDOCAINE HCL/PF) 0.5 ML ASDIR PRN I-DERMAL (CKD) Mannitol (Mannitol 20%) 12.5 GM ASDIR PRN IV Sodium Chloride (SODIUM CHLORIDE 0.9%) 2,000 ML ASDIR PRN IV Sodium Chloride (SODIUM CHLORIDE) 5 ML ASDIR PRN IV Sodium Chloride (SODIUM CHLORIDE) 10 ML ASDIR PRN IV Sodium Chloride (SODIUM CHLORIDE 0.9%) 250 ML ASDIR PRN IV Physical ExamGeneral appearance: alert, awakeNeck: non-tender, no JVDCardiovascular: CV assessment: regular rate and rhythm Murmur assessment:heart murmurRespiratory: clear to auscultation, no distressAbdomen: soft, non-tender, normal bowel sounds, no distentionGenitourinary: no flank pain, no urinary catheterLower extremity: LE assessment: abnormal pedal pulse, abnormal peripheral pulseMusculoskeletal: normal inspectionNeuro/CREDENTIALS SPECIALIST: alert, oriented X 3, normal speechSkin: right heel ulcerUlcer: Type/cause: diabetic (right heel ulcer), arterialPsychiatry: normal affect, normal mood ResultsFindings/Data:Laboratory Tests 07/20 1632 Chemistry POC Glucose (70 - 110 MG/DL) 91 Results: no new labs, vital signs reviewed, vital signs stable, rhythm personally rev'dTelemetry Interpretation:sinus rhythm Free Text Obj NotesFree Text Obj Notes:68 YO female with MHx of IDDM on insulin pump, nonhealing foot ulcers, ESRD on HD MWF, recent diagnosis of severe cardiomyopathy, HFrEF with LVEF of 25% as well as severe MR. She had elective coronary and peripheral angiogram today, which revealed multivessel CAD and severe bilateral PAD. 1. Multivessel CAD* Aspirin, statin* extremely elevated STS risk score about 50%* nuclear viability study reviewed- scar at apex otherwise viable* CTA head, neck, abdomen, pelvis, subclavian artery, carotid arteries, mesenteric arteries reviewed. 2. Severe PAD with nonhealing foot ulcers* Vascular surgery recommendation noted 3. Mitral regurgitation* moderate to severe MR on TTE with contrast* JULIA reviewed 4. Severe ischemic cardiomyopathy - LVEF 25%* volume management per HD* on midodrine d/t chronic hypotension* no ACEI or ARB d/t chronic hypotension requiring midodrine* LifeVest ordered 5. ESRD - on HD* nephrology following 6. IDDM* per primary team Possible Impella protected PCI today. Keep NPO Diagnosis, Assessment PlanPlan discussed with: patient, spouse/partner, healthcare power of atty, collaborating MD, consultants, nurse Free Text DxA P NotesFree Text DxA P Notes:68 YO female with MHx of IDDM on insulin pump, nonhealing foot ulcers, ESRD on HD MWF, recent diagnosis of severe cardiomyopathy, HFrEF with LVEF of 25% as well as severe MR. She had elective coronary and peripheral angiogram today, which revealed multivessel CAD and severe bilateral PAD. 1. Multivessel CAD* Aspirin, statin* extremely elevated STS risk score about 50%* nuclear viability study reviewed- scar at apex otherwise viable* CTA head, neck, abdomen, pelvis, subclavian artery, carotid arteries, mesenteric arteries reviewed. * For Impella-assisted PCI today. 2. Severe PAD with nonhealing foot ulcers* Vascular surgery recommendation noted 3. Mitral regurgitation* moderate to severe MR on TTE with contrast* JULIA reviewed 4. Severe ischemic cardiomyopathy - LVEF 25%* volume management per HD* on midodrine d/t chronic hypotension* no ACEI or ARB d/t chronic hypotension requiring midodrine* LifeVest ordered 5. ESRD - on HD* nephrology following 6. IDDM* per primary team For Impella- assisted PCI today. Discussed with patient and family (POA). MDM by Dr. Pak. Kimberly Pak 07/21/231900:Attestations Physician AttestationAgree w/findings plan:I have seen and examined the pt, I Agree with the findings and plan as documented by Yue Barragan. Patient discussed in heart team fashion with CT surgeon and multiple of my interventional colleagues and heart failure specialist. Also I discussed the case with vascular surgeon. The option of medical therapy versus PCI with Impella support from the axillary axis with CT surgery support versus CABG were discussed with the patient. Patient is at prohibitive risk for CABG so the options were medical therapy versus PCI. The patient had 3 admissions within the last 8 months for heart failure and she has critical limb ischemia that required vascular intervention that will not be feasible unless the patient has coronary revascularization. I had a lengthy discussion with the patient, her niece and her and with the heart team and decision was made to proceed with multivessel PCI with Impella support via axillary access that will be obtained by vascular surgery. Patient was taken to the [facility], CT surgery dida surgical cutdown and the chimney graft placed in the right subclavian vein I went up with Impella CP placed it in the left ventricle. Then we used 45 cm destination sheath placed it in the ascending aorta. Then I went with AL 0.75 guide engaged the left main and I performed multivessel PCI. Did PCI to the left circumflex, then to the mid LAD and then proximal LAD to the left main using mini crush technique. Had excellent results. We will leave the Impella in place monitor overnight and wean off Impella tomorrow. Patient was loaded with Plavix in the [facility] 600 mg, that was given through the NG tube. We willgive her 1 dose of Brilinta in CCU. And from tomorrow we will do aspirin and Plavix. at 1435 at 2136 RPT #:[id number] OF REPORTPRProgress [id number]:35:00G.[id number] ailable for patient yrucWTMOZBSBTRHELH6615-44-62J42:35:45 [facility] [place] 2023-07-20 17:15:00 [id number]+tHPfXop3 0R4CIr 2o9LH7CcCzxvGVt/dcd5W4354EFloI6066-11-20L44:15 :00 [facility] ProgREPORT#:[id number] REPORT STATUS: SignedREPORT INITIALIZATION DATE:07/20/23 TIME: 1714 PATIENT: JOSEPH ROWLEY UNIT #: [id number]#: [id number] [address] [birth year] AGE: 68 SEX: F ATTEND: Tanvir Prasad AUTHOR: Trudy Colindres PhysicREPT SERVICE DT/TIME: 07/20/231714* ALL edits or amendments must be made on the electronic/computer document * SubjectiveChief complaint:CAD, eval for CABG PVD nonhealing lower extremity ulcers Patient resting comfortable. Denies chest pain Review of SystemsConstitutional:Denies: fever, generalized weakness. Skin:Denies: rash, swelling. Allergy/Immun:Denies: itching, rhinorrhea. Eyes:Denies: itching, diplopia. Respiratory:Denies: VICENTE (dyspnea on exertion), hemoptysis. Cardiovascular:Denies: VICENTE (dyspnea on exertion), edema. GI:Denies: constipation, diarrhea. :Denies: dysuria, hematuria. Musculoskeletal:Denies: joint pain, joint swelling. Heme:Denies: bleeding, bruising. Endocrine:Denies: polydipsia, polyuria. Neuro:Denies: confusion, dizziness. All systems rev neg: except as marked Objective GeneralVS/I OLast Documented: Result Date Time Pulse Ox 100 07/20 170 B/P 128/58 07/20 1708 O2 Delivery Room air 07/20 1708 Temp 97.2 07/20 170 Pulse 81 07/20 1708 Resp 20 07/20 170 B/P Mean 0.0 07/20 1634 O2 Flow Rate 5 07/15 1635 24 hour I O ending at 0700: 07/20 0700 07/19 1900 Intake Total 240 Output Total Balance 240 Intake, Oral 240 Number Voids 1 2 PATIENT WEIGHT: Weight (lb): 141Weight (oz): 8.59Weight (kg): 64.200 Physical ExamGeneral appearance: alert, awake, orientedHEENT: anicteric, mucosal membranes moistCardiovascular: BP/pulses equal bilat., regular rate rhythmRespiratory: aerating well, clear to auscultationAbdomen: soft, non-tenderExtremities: dry, moves allMusculoskeletal: full range of motion, painless range of motionNeuro/CREDENTIALS SPECIALIST: alert, oriented X 3Skin: dry, intactUlcer: Type/cause: diabetic (right heel ulcer), arterial Diagnosis, Assessment PlanHospital course to date: This is a very pleasant 68-year-old female with a past medical history of type 1diabetes from the age of 46 years old, end-stage renal disease, on dialysis sinceSept2021, hypertension who presented to her inventory management specialist for evaluation ofbilateral nonhealing ulcerations of her bilateral heels for the past 3 months, and shortness of breath with exertion. Her last echocardiogram was completed with her inventory management specialist showing an EF 20-25%with mild LVH, severe global hypokinesis, mildly dilated left atrium with moderate aortic sclerosis without stenosis, mitral valve leaflets mildly thickened with severe MR, mild to moderate TR, moderate pulmonary hypertension with an RV systolic pressure 62 mmHg. Patient underwent left heart catheterization today and was found to have severe three-vessel coronary artery disease, with severe bilateral occluded SFAs of thelower extremity. CV surgery consulted for evaluation for coronary artery bypass graft surgery Assessment/plan1. Severe three-vessel CAD2. Type I diabetic3. Severe peripheral vascular disease4. Nonhealing bilateral heel ulcerations5. Hypertension6. Hyperlipidemia7. CHF Documented EF 20-25% in the outpatient setting . Mitral valve regurgitation Noted to be severe on echocardiogram from March 2023 in the outpatient setting Patient with severe multivessel CAD. Patient will be worked up for CAD, Further recs to follow. Thank you for this consult. 07/12/23 Echo Left ventricle: The cavity size is normal. Wall thickness is normal. Systolic function is severely reduced. The estimated ejection fraction is 30-34%. Severe diffuse hypokinesis. Doppler parameters are consistent with restrictive physiology, indicative of decreased left ventricular diastolic compliance and/or increased left atrial pressure. Average global longitudinal strain is -5.7.2. Right ventricle: Systolic function is mildly to moderately reduced. Systolic pressure is severely increased.3. Left atrium: The atrium is dilated. The end-systolic volume index (A-L) is 50 ml/m 2.4. Mitral valve: The annulus is calcified. Prolapse cannot be excluded. There is moderate to severe regurgitation, directed posteriorly and along the left atrial wall. The effective regurgitant orifice (PISA) is 0.39 cm 2. The regurgitant volume (PISA) is 46 ml.5. Tricuspid valve: Estimated right ventricular systolic pressure is 76 mmHg. There is moderate-severe regurgitation directed toward the septum.6. Pericardium, extracardiac: There is a large left pleural effusion.7. Inferior vena cava: The vessel is dilated. The respirophasic diameter changes are blunted (< 50%). Inferior vena cava diameter measures 2.2 cm. 07/13/23Patinet resting comfortable, Denies any new complaints. On room air. Sinus rhythm. AAO x 3Cardiac workup still underway. CTA head, abdomena nd pelvis ordered by cardiology. Patient will be presented in the high risk cardiology conference. Further recs to follow. 07/14/23Patient resting comfortable,Denies chest painsComplains of bilateral heel ulcerationsSinus rhythmOn room airCarotid Doppler showed no carotid artery stenosisPatient is considered high risk due to multiple comorbidities, ESRD, CHF, DMPatient will be discussed in the high risk conferenceFurther recommendations toPatient was seen with Dr. Sousa 07/15/23Patient resting comfortableDenies complaints, denies chest painsRemains on room airSinus rhythmPatient underwent viability study today. Pending resultsOn dialysis, followed by renalPatient STS score estimated at 50%Further recommendations to follow 07/16/23Patient resting comfortable, denies chest painNo new complaintsRemains on room airSinus rhythmPending viability study results.Dialysis per renal.Patient will be discussed in the high risk conference next week. 07/17/23Patient resting comfortable, No complaints. Remains sinus rhythm. on room air. Viability study completed EF 28%Dialysis as per renalMedical management as per cardiologyPatient will be discussed in high risk conference next week. 07/18/23Patient resting comfortableDenies chest painsOn room airDialysis planned for todayRemains sinus rhythmAnemia managed per nephrologyPatient will be discussed in the high risk cardiology conferenceFurther recommendations to follow 07/19/23Patient resting comfortable. Denies chest pains. AAO x 3on room air. Dialysis yesterday. Free Text A P:This is a very pleasant 68-year-old female with a past medical history of type 1diabetes from the age of 46 years old, end-stage renal disease, on dialysis sinceSept2021, hypertension who presented to her inventory management specialist for evaluation ofbilateral nonhealing ulcerations of her bilateral heels for the past 3 months, and shortness of breath with exertion. Her last echocardiogram was completed with her inventory management specialist showing an EF 20-25%with mild LVH, severe global hypokinesis, mildly dilated left atrium with moderate aortic sclerosis without stenosis, mitral valve leaflets mildly thickened with severe MR, mild to moderate TR, moderate pulmonary hypertension with an RV systolic pressure 62 mmHg. Patient underwent left heart catheterization today and was found to have severe three-vessel coronary artery disease, with severe bilateral occluded SFAs of thelower extremity. CV surgery consulted for evaluation for coronary artery bypass graft surgery Assessment/plan1. Severe three-vessel CAD2. Type I diabetic3. Severe peripheral vascular disease4. Nonhealing bilateral heel ulcerations5. Hypertension6. Hyperlipidemia7. CHF Documented EF 20-25% in the outpatient setting . Mitral valve regurgitation Noted to be severe on echocardiogram from March 2023 in the outpatient setting Patient with severe multivessel CAD. Patient will be worked up for CAD, Further recs to follow. Thank you for this consult. 07/12/23 Echo Left ventricle: The cavity size is normal. Wall thickness is normal. Systolic function is severely reduced. The estimated ejection fraction is 30-34%. Severe diffuse hypokinesis. Doppler parameters are consistent with restrictive physiology, indicative of decreased left ventricular diastolic compliance and/or increased left atrial pressure. Average global longitudinal strain is -5.7.2. Right ventricle: Systolic function is mildly to moderately reduced. Systolic pressure is severely increased.3. Left atrium: The atrium is dilated. The end-systolic volume index (A-L) is 50 ml/m 2.4. Mitral valve: The annulus is calcified. Prolapse cannot be excluded. There is moderate to severe regurgitation, directed posteriorly and along the left atrial wall. The effective regurgitant orifice (PISA) is 0.39 cm 2. The regurgitant volume (PISA) is 46 ml.5. Tricuspid valve: Estimated right ventricular systolic pressure is 76 mmHg. There is moderate-severe regurgitation directed toward the septum.6. Pericardium, extracardiac: There is a large left pleural effusion.7. Inferior vena cava: The vessel is dilated. The respirophasic diameter changes are blunted (< 50%). Inferior vena cava diameter measures 2.2 cm. 07/13/23Patinet resting comfortable, Denies any new complaints. On room air. Sinus rhythm. AAO x 3Cardiac workup still underway. CTA head, abdomena nd pelvis ordered by cardiology. Patient will be presented in the high risk cardiology conference. Further recs to follow. 07/14/23Patient resting comfortable,Denies chest painsComplains of bilateral heel ulcerationsSinus rhythmOn room airCarotid Doppler showed no carotid artery stenosisPatient is considered high risk due to multiple comorbidities, ESRD, CHF, DMPatient will be discussed in the high risk conferenceFurther recommendations toPatient was seen with Dr. Sousa 07/15/23Patient resting comfortableDenies complaints, denies chest painsRemains on room airSinus rhythmPatient underwent viability study today. Pending resultsOn dialysis, followed by renalPatient STS score estimated at 50%Further recommendations to follow 07/16/23Patient resting comfortable, denies chest painNo new complaintsRemains on room airSinus rhythmPending viability study results.Dialysis per renal.Patient will be discussed in the high risk conference next week. 07/17/23Patient resting comfortable, No complaints. Remains sinus rhythm. on room air. Viability study completed EF 28%Dialysis as per renalMedical management as per cardiologyPatient will be discussed in high risk conference next week. 07/18/23Patient resting comfortableDenies chest painsOn room airDialysis planned for todayRemains sinus rhythmAnemia managed per nephrologyPatient will be discussed in the high risk cardiology conferenceFurther recommendations to follow 07/19/23Patient resting comfortableDenies chest painsComplains of heel painsOn room airSinus rhythmPatient was seen and examined with Dr. Lyon.Patient is high risk for surgical intervention.Dr. Lyon will discuss with cardiology and patient will be discussed in the high risk cardiology conference this week. 07/20/23Patient resting comfortableNo new complaintsOn room airSinus rhythmBilateral heel ulcers. Vascular followingPatient will be discussed in the high risk cardiology conference on TuesdayPatient seen and examined with Dr. Lyon Consultants: cardiology, nephrology at 1717 at 1743 RPT #:[id number] OF REPORTPRProgress [id number]:15:00G.[id number] ailable for patient oociJYLTERGOMCCHTC4829-35-83M59:18:16 [facility] [place] 2023-07-20 14:55:00 [id number] oK4rwc Z/61G4VgUcwv53Mn8pdU1GA0Yax06535-02-16V79:55 :00 [facility] ([facility])Nephrology Progress NoteREPORT#:[id number] REPORT STATUS: SignedDATE:07/20/23 TIME: 1455 PATIENT: JOSEPH ROWLEY UNIT #: [id number]#: [id number] ROOM/BED: 3356-1DOB: [birth year] AGE: 68 SEX: F ATTEND: Tanvir Prasad AUTHOR: Winnie Noyola MD * ALL edits or amendments must be made on the electronic/computer document * SubjectiveChief complaint:follow up of ESRDComments:On dialysis, no complaint Objective GeneralVS/I O:Vital Signs: Date Time Temp Pulse Resp B/P B/P Pulse O2 O2 Flow FiO2 Mean Ox Delivery Rate 07/20 1300 97.5 65 16 109/55 100 Room air 07/20 1137 97.3 73 20 118/72 87.3 98 / 0759 97.7 69 19 121/58 0.0 94 / 0431 98.4 65 18 121/71 87.5 97 / 0000 99.1 71 17 103/67 78.8 96 07/19 2153 94 Room air 07/19 2117 67 07/19 2100 68 / 2000 67 07/19 1956 99.0 69 18 95/64 74.1 90 / 1834 65 24 97 / 1759 67 29 105/56 78 97 /05 1745 68 32 99 /05 1705 97.7 71 12 109/55 0.0 99 Room air 07/19 1659 71 11 109/55 79 99 /05 1645 71 20 97 /05 1545 69 24 99 24 hour I O ending at 0700: 07/20 0700 07/19 1900 Intake Total 240 Output Total Balance 240 Intake, Oral 240 Number Voids 1 2 PATIENT WEIGHT: Weight (lb): 141Weight (oz): 8.59Weight (kg): 64.200 MedicationsActive Meds + DC'd Last 24 HrsDorzolamide HCl (TRUSOPT 10 ML OPHTH SOLN) 1 DROP TID EACH EYE Midodrine (PROAMATINE) 7.5 MG 0800,1200,1600 PO Epoetin Tanner-epbx (RETACRIT) 10,000 UNIT TuThSa@2100 IV Loperamide HCl (IMODIUM CAPSULE) 2 MG QID PRN PRN PO Aspirin (ASPIRIN) 81 MG DAILY PO Acetaminophen (TYLENOL) 650 MG Q6H PRN PRN PO Atorvastatin Calcium (LIPITOR) 40 MG BEDTIME PO Albumin Human (ALBUMINAR-25%) 12.5 GM ASDIR PRN IV Heparin Sodium (Porcine) (HEPARIN SODIUM) 3,000 UNIT ASDIR PRN DIALYSIS Lidocaine HCl (LIDOCAINE HCL/PF) 0.5 ML ASDIR PRN I-DERMAL (CKD) Mannitol (Mannitol 20%) 12.5 GM ASDIR PRN IV Sodium Chloride (SODIUM CHLORIDE 0.9%) 2,000 ML ASDIR PRN IV Sodium Chloride (SODIUM CHLORIDE) 5 ML ASDIR PRN IV Sodium Chloride (SODIUM CHLORIDE) 10 ML ASDIR PRN IV Sodium Chloride (SODIUM CHLORIDE 0.9%) 250 ML ASDIR PRN IV Physical ExamGeneral appearance: alert, awake, orientedHead/eyes: atraumatic, normocephalic, PERRLAENT: moist mucous membranesNeck: no JVD, no lymphadenopathy, no masses or swellingCardiovascular: normal heart sounds, regular rate and rhythm, no murmur, no rubRespiratory: aerating well, clear to auscultation, normal breath sounds, no distressAbdomen: non-tender, normal bowel sounds, soft, no reboundGenitourinary: no bladder distention, no flank pain, no urinary catheterExtremities: no edema, no gangreneNeuro/CREDENTIALS SPECIALIST: alert, oriented X 3, CN II-XII intact, normal speechUlcer: Type/cause: diabetic (right heel ulcer), arterial Diagnosis, Assessment PlanFree Text A P:1. ESRD continue with dialysis Tuesday. Currently HD today, tolerating well with 2.5 L UF2. Hypotension on midodrine 3. Coronary disease needs CABG, CT surgery on case. Await decision regarding the surgery 4. Diabetes type 1 per primary team 5. Anemia of CKD on MATT as hemoglobin less than 10, 10,000 unit 3 times a week 6. hyponatremia Repeat lab in the morning. P.o. fluid restriction 1.2 L/day at 0809 RPT #:[id number] OF REPORTPRProgress keps3144-06-97Q78:55:00G.[id number] ailable for patient vntxLOBRVYPNPMGKJA7879-64-17T71:09:53 [facility] 2023-07-20 12:57:00 [id number]/[id number] UEg1N/ 8JIwqLdy05WieCM2arIz1jb4MwRRoV3442-62-68G29:57 :00 [facility] ([facility])Cardiology Progress NoteREPORT#:[id number] REPORT STATUS: SignedDATE:07/20/23 TIME: 1257 PATIENT: JOSEPH ROWLEY UNIT #: [id number]#: [id number] [address] [birth year] AGE: 68 SEX: F ATTEND: Tanvir Prasad MDADM AUTHOR: Yue Barragan AGACNP * ALL edits or amendments must be made on the electronic/computer document * Yue Barragan 07/20/23 1257:SubjectiveNursing reports:No: chest pain, dizziness, palpitations. Objective GeneralVS/I O:24 hour I O ending at 0700: 07/20 0700 07/19 1900 Intake Total 240 Output Total Balance 240 Intake, Oral 240 Number Voids 1 2 Vital Signs: Date Time Temp Pulse Resp B/P B/P Pulse O2 O2 Flow FiO2 Mean Ox Delivery Rate 07/20 1137 36.3 73 20 118/72 87.3 98 07/20 0759 36.5 69 19 121/58 0.0 94 07/20 0431 36.9 65 18 121/71 87.5 97 / 0000 37.3 71 17 103/67 78.8 96 07/19 2153 94 Room air 07/19 2117 67 / 2100 68 / 2000 67 07/19 1956 37.2 69 18 95/64 74.1 90 / 1834 65 24 97 / 1759 67 29 105/56 78 97 / 1745 68 32 99 / 1705 36.5 71 12 109/55 0.0 99 Room air / 1659 71 11 109/55 79 99 /05 1645 71 20 97 /05 1545 69 24 99 /05 1445 72 33 96 09/05 1358 73 32 100/52 73 97 / 1345 72 31 100 PATIENT WEIGHT: Weight (lb): 141Weight (oz): 8.59Weight (kg): 64.200 Medications:Active Meds + DC'd Last 24 HrsDorzolamide HCl (TRUSOPT 10 ML OPHTH SOLN) 1 DROP TID EACH EYE Midodrine (PROAMATINE) 7.5 MG 0800,1200,1600 PO Epoetin Tanner-epbx (RETACRIT) 10,000 UNIT TuThSa@2100 IV Loperamide HCl (IMODIUM CAPSULE) 2 MG QID PRN PRN PO Aspirin (ASPIRIN) 81 MG DAILY PO Acetaminophen (TYLENOL) 650 MG Q6H PRN PRN PO Atorvastatin Calcium (LIPITOR) 40 MG BEDTIME PO Albumin Human (ALBUMINAR-25%) 12.5 GM ASDIR PRN IV Heparin Sodium (Porcine) (HEPARIN SODIUM) 3,000 UNIT ASDIR PRN DIALYSIS Lidocaine HCl (LIDOCAINE HCL/PF) 0.5 ML ASDIR PRN I-DERMAL (CKD) Mannitol (Mannitol 20%) 12.5 GM ASDIR PRN IV Sodium Chloride (SODIUM CHLORIDE 0.9%) 2,000 ML ASDIR PRN IV Sodium Chloride (SODIUM CHLORIDE) 5 ML ASDIR PRN IV Sodium Chloride (SODIUM CHLORIDE) 10 ML ASDIR PRN IV Sodium Chloride (SODIUM CHLORIDE 0.9%) 250 ML ASDIR PRN IV Physical ExamGeneral appearance: alert, awake, oriented, conversationalNeck: non-tender, no JVDCardiovascular: CV assessment: regular rate and rhythm Murmur assessment:heart murmurRespiratory: clear to auscultation, no distressAbdomen: soft, non-tender, normal bowel sounds, no distentionGenitourinary: no flank pain, no urinary catheterLower extremity: LE assessment: abnormal pedal pulse, abnormal peripheral pulseMusculoskeletal: normal inspectionNeuro/CREDENTIALS SPECIALIST: alert, oriented X 3, normal speechSkin: right heel ulcerUlcer: Type/cause: diabetic (right heel ulcer), arterialPsychiatry: normal affect, normal mood ResultsResults: no new labs, rhythm personally rev'dTelemetry Interpretation:Sinus rhythm Diagnosis, Assessment PlanPlan discussed with: patient, family, admitting physician, collaborating MD, nurse Free Text DxA P NotesFree Text DxA P Notes:68 YO female with MHx of IDDM on insulin pump, nonhealing foot ulcers, ESRD on HD MWF, recent diagnosis of severe cardiomyopathy, HFrEF with LVEF of 25% as well as severe MR. She had elective coronary and peripheral angiogram today, which revealed multivessel CAD and severe bilateral PAD. 1. Multivessel CAD* Aspirin, statin* extremely elevated STS risk score about 50%* nuclear viability study reviewed- scar at apex otherwise viable* CTA head, neck, abdomen, pelvis, subclavian artery, carotid arteries, mesenteric arteries reviewed. 2. Severe PAD with nonhealing foot ulcers* Vascular surgery recommendation noted 3. Mitral regurgitation* moderate to severe MR on TTE with contrast* JULIA reviewed 4. Severe ischemic cardiomyopathy - LVEF 25%* volume management per HD* on midodrine d/t chronic hypotension* no ACEI or ARB d/t chronic hypotension requiring midodrine* LifeVest ordered 5. ESRD - on HD* nephrology following 6. IDDM* per primary team Patient will be presented in the conference on Tuesday to decide on high risk revascularization (likely PCI) vs medical therapy. MDM by Dr. Pak. Kimberly Pak 07/21/237:Attestations Physician AttestationAgree w/findings plan:I have seen and examined the pt, I Agree with the findings and plan as documented by Yue Barragan. I discussed the case with the patient primary inventory management specialist and with CT surgery will plan likely for PCI of the left main, LAD and left circumflex tomorrow withImpella support through axillary access that would be obtained by CT surgery. at 1303 at [phone] RPT #:[id number] OF REPORTPRProgress [id number]:57:00G.[id number] ailable for patient qsmdWCZVJNFIDYLMKX4419-42-00S52:03:42 [facility] [place] 2023-07-20 10:57:00 [id number]+Vujuargs 4aHe7F Hh3IpTSCpU9j2yI6Zza+8OujtwRTnX3801-05-69J98:57 :00 [facility]Hospital[facility] Progress NoteREPORT#:[id number] REPORT STATUS: SignedDATE:07/20/23 TIME: 1057 PATIENT: JOSEPH ROWLEY UNIT #: [id number]#: [id number] [place] [facility] [place]DOB: [birth year] AGE: 68 SEX: F ATTEND: Tanvir Prasad [facility] AUTHOR: Violetta Davis MD * ALL edits or amendments must be made on the electronic/computer document * SubjectiveChief complaint:she sit on the chair . no complaint HPI:Patient had a fever spike yesterday was started on empiric antibiotics with UA abnormal system of UTI she is less confused and more alert per patient/family atbedside Review of SystemsConstitutional:Reports: generalized weakness. All systems rev neg: except as noted Objective GeneralVS/I O:Vital Signs: Date Time Temp Pulse Resp B/P B/P Pulse O2 O2 Flow FiO2 Mean Ox Delivery Rate 07/20 0759 36.5 69 19 121/58 0.0 94 07/20 0431 36.9 65 18 121/71 87.5 97 07/20 0000 37.3 71 17 103/67 78.8 96 07/19 2153 94 Room air 07/19 2117 67 / 2100 68 / 2000 67 07/19 1956 37.2 69 18 95/64 74.1 90 07/19 1834 65 24 97 / 1759 67 29 105/56 78 97 07/19 1745 68 32 99 07/19 1705 36.5 71 12 109/55 0.0 99 Room air 07/19 1659 71 11 109/55 79 99 07/19 1645 71 20 97 / 1545 69 24 99 07/19 1445 72 33 96 07/19 1358 73 32 100/52 73 97 07/19 1345 72 31 100 / 1245 72 27 96 / 1145 73 30 99 24 hour I O ending at 0700: 07/20 0700 07/19 1900 Intake Total 240 Output Total Balance 240 Intake, Oral 240 Number Voids 1 2 PATIENT WEIGHT: Weight (lb): 141Weight (oz): 8.59Weight (kg): 64.200 Medications:Active Meds + DC'd Last 24 HrsDorzolamide HCl (TRUSOPT 10 ML OPHTH SOLN) 1 DROP TID EACH EYE Midodrine (PROAMATINE) 7.5 MG 0800,1200,1600 PO Epoetin Tanner-epbx (RETACRIT) 10,000 UNIT TuThSa@2100 IV Loperamide HCl (IMODIUM CAPSULE) 2 MG QID PRN PRN PO Aspirin (ASPIRIN) 81 MG DAILY PO Acetaminophen (TYLENOL) 650 MG Q6H PRN PRN PO Atorvastatin Calcium (LIPITOR) 40 MG BEDTIME PO Albumin Human (ALBUMINAR-25%) 12.5 GM ASDIR PRN IV Heparin Sodium (Porcine) (HEPARIN SODIUM) 3,000 UNIT ASDIR PRN DIALYSIS Lidocaine HCl (LIDOCAINE HCL/PF) 0.5 ML ASDIR PRN I-DERMAL (CKD) Mannitol (Mannitol 20%) 12.5 GM ASDIR PRN IV Sodium Chloride (SODIUM CHLORIDE 0.9%) 2,000 ML ASDIR PRN IV Sodium Chloride (SODIUM CHLORIDE) 5 ML ASDIR PRN IV Sodium Chloride (SODIUM CHLORIDE) 10 ML ASDIR PRN IV Sodium Chloride (SODIUM CHLORIDE 0.9%) 250 ML ASDIR PRN IV Physical ExamGeneral appearance: alert, awake, orientedHead/Eyes: atraumatic, normal conjunctiva/sclera, normal eyelids/periorb.Neck: full range of motionCardiovascular: normal capillary refill, normal heart sounds, regular rate rhythmRespiratory: aerating well, clear to auscultation, symmetric expansion, no distressAbdomen: non-tender, normal bowel sounds, soft, no distentionExtremities: no edemaNeuro/CREDENTIALS SPECIALIST: alert, oriented X 3Ulcer: Type/cause: diabetic (right heel ulcer), arterialPsychiatry: depressed Diagnosis, Assessment PlanConsultants: cardiology, nephrology Free Text DxA P NotesFree text DxA P notes:68-year-old female with a past medical history of type 1 diabetes from the age of 46 years old, end-stage renal disease, on dialysis since July 2022, hypertension who presented to her inventory management specialist for evaluation of bilateral nonhealing ulcerations of her bilateral heels for the past 3 months, and shortness of breath with exertion. Left heart catheterization showed significant for severe three-vessel coronary artery disease with severe bilateral occluded SFAs of the lower extremity. Issues as below. Suspected urinary tract infectionSevere three-vessel CADSevere peripheral vascular diseaseDiabetes mellitusEnd-stage renal failure on hemodialysis Nonhealing bilateral heel ulcerationsHypertensionHyperlipidemiaCHF Mitral valve regurgitation Plan and recommendations Patient admitted into medicineVital signs every 4PatientAntiplatelets and statin per cardiologySeen by vascular surgery" CT surgery. Nephrology for hemodialysis. Will do basic lab work include CBC BMP now. Patient is not having significant hypoxia at this timeDVT prophylaxisRestart home medicationsDiscussed management plan in detail with patient's family. 07/13/[address] surgery and vascular surgery plansHemodialysis was done yesterdayHemodialysis per nephrologyMonitor renal functionBlood sugar control with insulin pump. 07/14/2023 Fever spike last night blood cultures on empiric antibiotics for possible UTIAntibiotics changedFollow-up on culturesFollow-up on cardiothoracic surgery and oncology recommendations plan to have discussion tomorrowBlood sugars controlledLab work otherwise stableDVT prophylaxisHemodialysis per nephrology 07/15- take over care from another group -- review all lab and image -- she is seen in the stress test lab . no cp no sob -- urine culture --positive continue rocephin iv -- blood culture -- no grow -- stress test -- pending --continue HD as schedule 07/16 High revascularization risk, will be discussed on Tuesday in clinical conference, ejection fraction 28%, viable tissue except apical scar, continue with dialysis, severe peripheral artery disease with heel ulcers, mitral valve regurgitation. 07/17 conference on Tuesday regarding the decision to proceed with revascularization, depressed, wound care to heels, increase midodrine to 10 mg 3times daily in view of persistent hypotension. 07/18 hyponatremic with sodium of 128, on hemodialysis, blood pressure has improved on midodrine, revascularization decision in a.m., daughter is at bedside, wound care. 07/19- no cp no sob -- family are in the room -- conference decision -pending -- continue current management 07/20- she is weak -- no cp -- spoke to cardiology continue monitor in CV1 will present the case in tuesday conference continue medical treatment at [address] [facility] #:[id number] OF REPORTPRProgress [id number]:57:00G.[id number] ailable for patient ncxcRIBZQZPTUWBVDZ0259-33-60S03:12:42 [facility] 2023-07-19 11:10:00 [id number]+r8iSg0 6PAjKn 7SDgxD5lFJV7TqzP9Yl6DlexN1AkmW1508-71-07L56:10 :00 [facility])Hospitalist Progress NoteREPORT#:[id number] REPORT STATUS: SignedDATE:07/19/23 TIME: 1110 PATIENT: JOSEPH ROWLEY UNIT #: [id number]#: [id number] [address] [birth year] AGE: 68 SEX: F ATTEND: Tanvir Prasad AUTHOR: Violetta Davis MD * ALL edits or amendments must be made on the electronic/computer document * SubjectiveChief complaint:No cp, no sobHPI:Patient had a fever spike yesterday was started on empiric antibiotics with UA abnormal system of UTI she is less confused and more alert per patient/family atbedside Review of SystemsAll systems rev neg: except as noted Objective GeneralVS/I O:Vital Signs: Date Time Temp Pulse Resp B/P B/P Pulse O2 O2 Flow FiO2 Mean Ox Delivery Rate 07/19 930 36.6 70 20 98/52 0.0 100 Room air 07/19 0718 37.0 68 19 92/53 65.7 100 / 0634 74 / 0448 37.2 74 14 98/54 0.0 95 Room air 07/19 0445 75 98/54 73 95 / 0400 21 07/19 0200 75 25 109/54 78 98 09/05 0000 79 23 101/52 73 94 / 2357 79 25 98/50 71 96 / 2357 37.0 78 14 98/50 0.0 97 Room air 07/18 2200 72 22 88/52 68 93 /04 2118 76 35 90/50 67 94 09/04 1857 36.6 91 14 102/55 0.0 94 Room air /04 1812 36.8 85 22 102/55 98 Room air /04 1804 86 09/04 1800 86 26 102/55 76 99 09/04 1745 83 28 107/58 79 97 09/04 1730 77 26 106/55 77 98 09/04 1715 81 32 108/56 79 98 09/04 1712 82 32 126/58 83 97 09/04 1613 36.7 80 14 113/58 0.0 100 Room air 09/04 1612 80 23 113/58 84 98 09/04 1600 81 17 111/53 77 100 09/04 1545 80 32 105/55 78 99 09/04 1530 77 33 119/56 80 87 09/04 1515 79 30 111/54 78 98 09/04 1500 73 26 108/53 76 99 09/04 1445 74 22 112/57 77 91 09/04 1439 36.8 68 22 109/54 98 Room air 09/04 1430 71 26 105/59 76 100 09/04 1415 68 25 106/59 79 70 09/04 1403 68 26 109/54 76 88 09/04 1229 69 25 106/54 78 98 24 hour I O ending at 0700: 05 0700 07/18 1900 Intake Total 200 400 Output Total 240 2350 Balance -40 -1950 Intake, Oral 200 400 Output, 2000 Hemodialysis Output, Urine 240 350 Patient 64.2 kg Weight Weight Bed scale Measurement Method PATIENT WEIGHT: Weight (lb): 141Weight (oz): 8.59Weight (kg): 64.200 Medications:Active Meds + DC'd Last 24 HrsMidodrine (PROAMATINE) 7.5 MG 0800,1200,1600 PO Epoetin Tanner-epbx (RETACRIT) 10,000 UNIT TuThSa@2100 IV Loperamide HCl (IMODIUM CAPSULE) 2 MG QID PRN PRN PO Ceftriaxone Sodium (ROCEPHIN 1000MG VIAL) 1,000 MG Q24H IV (DC) Sodium Chloride (SODIUM CHLORIDE) 10 MLAspirin (ASPIRIN) 81 MG DAILY PO Acetaminophen (TYLENOL) 650 MG Q6H PRN PRN PO Atorvastatin Calcium (LIPITOR) 40 MG BEDTIME PO Albumin Human (ALBUMINAR-25%) 12.5 GM ASDIR PRN IV Heparin Sodium (Porcine) (HEPARIN SODIUM) 3,000 UNIT ASDIR PRN DIALYSIS Lidocaine HCl (LIDOCAINE HCL/PF) 0.5 ML ASDIR PRN I-DERMAL (CKD) Mannitol (Mannitol 20%) 12.5 GM ASDIR PRN IV Sodium Chloride (SODIUM CHLORIDE 0.9%) 2,000 ML ASDIR PRN IV Sodium Chloride (SODIUM CHLORIDE) 5 ML ASDIR PRN IV Sodium Chloride (SODIUM CHLORIDE) 10 ML ASDIR PRN IV Sodium Chloride (SODIUM CHLORIDE 0.9%) 250 ML ASDIR PRN IV Physical ExamGeneral appearance: alert, awake, orientedHead/Eyes: atraumatic, normal conjunctiva/sclera, normal eyelids/periorb.Neck: full range of motionCardiovascular: normal capillary refill, normal heart sounds, regular rate rhythmRespiratory: aerating well, clear to auscultation, symmetric expansion, no distressAbdomen: non-tender, normal bowel sounds, soft, no distentionExtremities: no edemaNeuro/CREDENTIALS SPECIALIST: alert, oriented X 3Ulcer: Type/cause: diabetic (right heel ulcer), arterialPsychiatry: depressed ResultsFindings/Data:Laboratory Tests 07/18 1610 Chemistry POC Glucose (70 - 110 MG/DL) 96 Diagnosis, Assessment PlanConsultants: cardiology, nephrology Free Text DxA P NotesFree text DxA P notes:68-year-old female with a past medical history of type 1 diabetes from the age of 46 years old, end-stage renal disease, on dialysis since July 2022, hypertension who presented to her inventory management specialist for evaluation of bilateral nonhealing ulcerations of her bilateral heels for the past 3 months, and shortness of breath with exertion. Left heart catheterization showed significant for severe three-vessel coronary artery disease with severe bilateral occluded SFAs of the lower extremity. Issues as below. Suspected urinary tract infectionSevere three-vessel CADSevere peripheral vascular diseaseDiabetes mellitusEnd-stage renal failure on hemodialysis Nonhealing bilateral heel ulcerationsHypertensionHyperlipidemiaCHF Mitral valve regurgitation Plan and recommendations Patient admitted into medicineVital signs every 4PatientAntiplatelets and statin per cardiologySeen by vascular surgery" CT surgery. Nephrology for hemodialysis. Will do basic lab work include CBC BMP now. Patient is not having significant hypoxia at this timeDVT prophylaxisRestart home medicationsDiscussed management plan in detail with patient's family. 07/13/[address] surgery and vascular surgery plansHemodialysis was done yesterdayHemodialysis per nephrologyMonitor renal functionBlood sugar control with insulin pump. 07/14/2023 Fever spike last night blood cultures on empiric antibiotics for possible UTIAntibiotics changedFollow-up on culturesFollow-up on cardiothoracic surgery and oncology recommendations plan to have discussion tomorrowBlood sugars controlledLab work otherwise stableDVT prophylaxisHemodialysis per nephrology 07/15- take over care from another group -- review all lab and image -- she is seen in the stress test lab . no cp no sob -- urine culture --positive continue rocephin iv -- blood culture -- no grow -- stress test -- pending --continue HD as schedule 07/16 High revascularization risk, will be discussed on Tuesday in clinical conference, ejection fraction 28%, viable tissue except apical scar, continue with dialysis, severe peripheral artery disease with heel ulcers, mitral valve regurgitation. 07/17 conference on Tuesday regarding the decision to proceed with revascularization, depressed, wound care to heels, increase midodrine to 10 mg 3times daily in view of persistent hypotension. 07/18 hyponatremic with sodium of 128, on hemodialysis, blood pressure has improved on midodrine, revascularization decision in a.m., daughter is at bedside, wound care. 07/19- no cp no sob -- family are in the room -- conference decision -pending -- continue current management at [address] [facility] #:[id number] OF REPORTPRProgress [id number]:10:00G.[id number] ailable for patient yvntXFMALOHAWHMZPH4539-41-77C03:42:25 [facility] [place] 2023-07-19 09:46:00 [id number]+/nUMw tGDnvb 3pH6QCS5liTGI5Ew4uDERU+AAchrzF4944-11-84G12:46 :00 [facility]ph[facility] Progress NoteREPORT#:[id number] REPORT STATUS: SignedDATE:07/19/23 TIME: 0946 PATIENT: JOSEPH ROWLEY UNIT #: [id number]#: [id number] ROOM/BED: G3356-1DOB: [birth year] AGE: 68 SEX: F ATTEND: Tanvir Prasad MDADM AUTHOR: Winnie Noyola MD * ALL edits or amendments must be made on the electronic/computer document * SubjectiveChief complaint:follow up of ESRDComments:No complaint Objective GeneralVS/I O:Vital Signs: Date Time Temp Pulse Resp B/P B/P Pulse O2 O2 Flow FiO2 Mean Ox Delivery Rate 07/19 0930 97.9 70 20 98/52 0.0 100 Room air 09/05 0718 98.6 68 19 92/53 65.7 100 09/05 0634 74 09/05 0448 99.0 74 14 98/54 0.0 95 Room air 09/05 0445 75 98/54 73 95 09/05 0400 21 09/05 0200 75 25 109/54 78 98 09/05 0000 79 23 101/52 73 94 09/04 2357 79 25 98/50 71 96 09/04 2357 98.6 78 14 98/50 0.0 97 Room air 09/04 2200 72 22 88/52 68 93 09/04 2118 76 35 90/50 67 94 09/04 1857 97.9 91 14 102/55 0.0 94 Room air 09/04 1812 98.2 85 22 102/55 98 Room air 09/04 1804 86 09/04 1800 86 26 102/55 76 99 09/04 1745 83 28 107/58 79 97 09/04 1730 77 26 106/55 77 98 09/04 1715 81 32 108/56 79 98 09/04 1712 82 32 126/58 83 97 09/04 1613 98.1 80 14 113/58 0.0 100 Room air 09/04 1612 80 23 113/58 84 98 09/04 1600 81 17 111/53 77 100 09/04 1545 80 32 105/55 78 99 09/04 1530 77 33 119/56 80 87 09/04 1515 79 30 111/54 78 98 / 1500 73 26 108/53 76 99 07/18 1445 74 22 112/57 77 91 07/18 1439 98.2 68 22 109/54 98 Room air 07/18 1430 71 26 105/59 76 100 07/18 1415 68 25 106/59 79 70 / 1403 68 26 109/54 76 88 07/18 1229 69 25 106/54 78 98 24 hour I O ending at 0700: 07/19 0700 07/18 1900 Intake Total 200 400 Output Total 240 2350 Balance -40 -1950 Intake, Oral 200 400 Output, 2000 Hemodialysis Output, Urine 240 350 Patient 64.2 kg Weight Weight Bed scale Measurement Method PATIENT WEIGHT: Weight (lb): 141Weight (oz): 8.59Weight (kg): 64.200 MedicationsActive Meds + DC'd Last 24 HrsMidodrine (PROAMATINE) 7.5 MG 0800,1200,1600 PO Epoetin Tanner-epbx (RETACRIT) 10,000 UNIT TuThSa@2100 IV Loperamide HCl (IMODIUM CAPSULE) 2 MG QID PRN PRN PO Ceftriaxone Sodium (ROCEPHIN 1000MG VIAL) 1,000 MG Q24H IV (DC) Sodium Chloride (SODIUM CHLORIDE) 10 MLAspirin (ASPIRIN) 81 MG DAILY PO Acetaminophen (TYLENOL) 650 MG Q6H PRN PRN PO Atorvastatin Calcium (LIPITOR) 40 MG BEDTIME PO Albumin Human (ALBUMINAR-25%) 12.5 GM ASDIR PRN IV Heparin Sodium (Porcine) (HEPARIN SODIUM) 3,000 UNIT ASDIR PRN DIALYSIS Lidocaine HCl (LIDOCAINE HCL/PF) 0.5 ML ASDIR PRN I-DERMAL (CKD) Mannitol (Mannitol 20%) 12.5 GM ASDIR PRN IV Sodium Chloride (SODIUM CHLORIDE 0.9%) 2,000 ML ASDIR PRN IV Sodium Chloride (SODIUM CHLORIDE) 5 ML ASDIR PRN IV Sodium Chloride (SODIUM CHLORIDE) 10 ML ASDIR PRN IV Sodium Chloride (SODIUM CHLORIDE 0.9%) 250 ML ASDIR PRN IV Physical ExamGeneral appearance: alert, awake, orientedHead/eyes: atraumatic, normocephalic, PERRLAENT: moist mucous membranesNeck: no JVD, no lymphadenopathy, no masses or swellingCardiovascular: normal heart sounds, regular rate and rhythm, no murmur, no rubRespiratory: aerating well, clear to auscultation, normal breath sounds, no distressAbdomen: non-tender, normal bowel sounds, soft, no reboundGenitourinary: no bladder distention, no flank pain, no urinary catheterExtremities: no edema, no gangreneNeuro/CREDENTIALS SPECIALIST: alert, oriented X 3, CN II-XII intact, normal speechUlcer: Type/cause: diabetic (right heel ulcer), arterial ResultsFindings/Data:Laboratory Tests 07/18 07/18 1610 1128 Chemistry Sodium (134 - 147 mEq/L) 128 L Potassium (3.4 - 5.0 mEq/L) 4.6 Chloride (100 - 108 mEq/L) 93 L Carbon Dioxide (21 - 33 mEq/l) 20 L Anion Gap (0 - 20) 20 BUN (7 - 25 mg/dL) 32 H Creatinine (0.6 - 1.3 mg/dL) 4.2 H Glomerular Filtr Rate (80 - 90) 11.1 L Glucose (77 - 141 mg/dL) 160 H POC Glucose (70 - 110 MG/DL) 96 Calcium (8.0 - 10.5 mg/dL) 9.1 Phosphorus (2.5 - 4.9 MG/DL) 4.5 Laboratory Tests 07/18 1128 Hematology WBC (4.5 - 11.0 x10 3/uL) 13.0 H RBC (3.54 - 5.02 x10 6/uL) 2.47 L Hgb (11.0 - 15.0 g/dL) 8.3 L Hct (33.0 - 45.0 %) 27.8 L MCV (81.0 - 99.0 fL) 112.6 H MCH (27.0 - 33.0 pg) 33.6 H MCHC (33.0 - 37.0 g/dL) 29.9 L RDW (11.5 - 14.5 %) 17.2 H Plt Count (150 - 400 x10 3/uL) 271 MPV (7.0 - 9.0 fL) 12.3 H Neut % (Auto) (56.0 - 77.0 %) 76.0 Lymph % (Auto) (14.0 - 32.0 %) 9.2 L [place] % (Auto) (4.8 - 9.0 %) 11.8 H Eos % (Auto) (0.3 - 3.7 %) 1.7 Baso % (Auto) (0.0 - 2.0 %) 0.4 Neut # (Auto) (2.0 - 7.6 x10 3/uL) 9.87 H Lymph # (Auto) (1.0 - 3.8 x10 3/uL) 1.20 [place] # (Auto) (0.1 - 0.8 x10 3/uL) 1.54 H Eos # (Auto) (0.0 - 0.2 x10 3/uL) 0.22 H Baso # (Auto) (0.0 - 0.2 x10 3/uL) 0.05 Abs Immat Gran (auto) (0.00 - 0.03 x10 3/uL) 0.12 H Add Manual Diff NO Immature Gran % (0.0 - 2.0 %) 0.9 Nucleated RBC % (0 - 0 %) 0.4 H Nucleated RBCs # (Man) (0.0 - 0.1 x10 3/uL) 0.05 Diagnosis, Assessment PlanFree Text A P:1. ESRD continue with dialysis Tuesday. HD in a.m.2. Hypotension on midodrine 3. Coronary disease needs CABG, CT surgery on case. Await final decision regarding the surgery 4. Diabetes type 1 per primary team 5. Anemia of CKD on MATT as hemoglobin less than 10, 10,000 unit 3 times a week 6. hyponatremia na 128. Repeat lab in the morning. P.o. fluid restriction 1.2 L/day Discussed with and niece at bedside at 1455 RPT #:[id number] OF REPORTPRProgress [id number]:46:00G.[id number] ailable for patient atjhMAOCEKJBCBEQUG5359-10-32I85:55:22 [facility] 2023-07-19 09:18:00 [id number]+/gV5vlP YuhyIL j5dW+yWl4t+qrxlPxwQ7+IGjet/08k0830-48-12X67:18 :00 [facility] ([facility])Cardiology Progress NoteREPORT#:[id number] REPORT STATUS: SignedDATE:07/19/23 TIME: 917 PATIENT: JOSEPH ROWLEY UNIT #: [id number]#: [id number] [address] [birth year] AGE: 68 SEX: F ATTEND: Tanvir Prasad AUTHOR: Yue Barragan AGACNP * ALL edits or amendments must be made on the electronic/computer document * Yue Barragan 07/19/23 0918:SubjectiveComments:No CP or SOB. Objective GeneralVS/I O:24 hour I O ending at 0700: 07/19 0700 07/18 1900 Intake Total 200 400 Output Total 240 2350 Balance -40 -1950 Intake, Oral 200 400 Output, 2000 Hemodialysis Output, Urine 240 350 Patient 64.2 kg Weight Weight Bed scale Measurement MethodVital Signs Date Temp Pulse Resp B/P B/P Mean Pulse Ox FiO2 07/18-07/19 36.6-37.2 68-91 14-35 88-126/50-59 0.0-84 70-100 PATIENT WEIGHT: Weight (lb): 141Weight (oz): 8.59Weight (kg): 64.200 Medications:Active Meds + DC'd Last 24 HrsMidodrine (PROAMATINE) 7.5 MG 0800,1200,1600 PO Epoetin Tanner-epbx (RETACRIT) 10,000 UNIT TuThSa@2100 IV Loperamide HCl (IMODIUM CAPSULE) 2 MG QID PRN PRN PO Ceftriaxone Sodium (ROCEPHIN 1000MG VIAL) 1,000 MG Q24H IV (DC) Sodium Chloride (SODIUM CHLORIDE) 10 MLAspirin (ASPIRIN) 81 MG DAILY PO Acetaminophen (TYLENOL) 650 MG Q6H PRN PRN PO Atorvastatin Calcium (LIPITOR) 40 MG BEDTIME PO Albumin Human (ALBUMINAR-25%) 12.5 GM ASDIR PRN IV Heparin Sodium (Porcine) (HEPARIN SODIUM) 3,000 UNIT ASDIR PRN DIALYSIS Lidocaine HCl (LIDOCAINE HCL/PF) 0.5 ML ASDIR PRN I-DERMAL (CKD) Mannitol (Mannitol 20%) 12.5 GM ASDIR PRN IV Sodium Chloride (SODIUM CHLORIDE 0.9%) 2,000 ML ASDIR PRN IV Sodium Chloride (SODIUM CHLORIDE) 5 ML ASDIR PRN IV Sodium Chloride (SODIUM CHLORIDE) 10 ML ASDIR PRN IV Sodium Chloride (SODIUM CHLORIDE 0.9%) 250 ML ASDIR PRN IV Physical ExamGeneral appearance: alert, awake, oriented, no acute distress, pleasantNeck: non-tender, no JVDCardiovascular: CV assessment: regular rate and rhythm Murmur assessment:heart murmurRespiratory: clear to auscultation, no distressAbdomen: soft, non-tender, normal bowel sounds, no distentionGenitourinary: no flank pain, no urinary catheterLower extremity: LE assessment: abnormal pedal pulse, abnormal peripheral pulseMusculoskeletal: normal inspectionNeuro/CREDENTIALS SPECIALIST: alert, oriented X 3, normal speechSkin: right heel ulcerUlcer: Type/cause: diabetic (right heel ulcer), arterialPsychiatry: normal affect, normal mood ResultsFindings/Data:Laboratory Tests 07/18 07/18 1610 1128 Chemistry Sodium (134 - 147 mEq/L) 128 L Potassium (3.4 - 5.0 mEq/L) 4.6 Chloride (100 - 108 mEq/L) 93 L Carbon Dioxide (21 - 33 mEq/l) 20 L Anion Gap (0 - 20) 20 BUN (7 - 25 mg/dL) 32 H Creatinine (0.6 - 1.3 mg/dL) 4.2 H Glomerular Filtr Rate (80 - 90) 11.1 L Glucose (77 - 141 mg/dL) 160 H POC Glucose (70 - 110 MG/DL) 96 Calcium (8.0 - 10.5 mg/dL) 9.1 Phosphorus (2.5 - 4.9 MG/DL) 4.5 Laboratory Tests 07/18 1128 Hematology WBC (4.5 - 11.0 x10 3/uL) 13.0 H RBC (3.54 - 5.02 x10 6/uL) 2.47 L Hgb (11.0 - 15.0 g/dL) 8.3 L Hct (33.0 - 45.0 %) 27.8 L MCV (81.0 - 99.0 fL) 112.6 H MCH (27.0 - 33.0 pg) 33.6 H MCHC (33.0 - 37.0 g/dL) 29.9 L RDW (11.5 - 14.5 %) 17.2 H Plt Count (150 - 400 x10 3/uL) 271 MPV (7.0 - 9.0 fL) 12.3 H Neut % (Auto) (56.0 - 77.0 %) 76.0 Lymph % (Auto) (14.0 - 32.0 %) 9.2 L [place] % (Auto) (4.8 - 9.0 %) 11.8 H Eos % (Auto) (0.3 - 3.7 %) 1.7 Baso % (Auto) (0.0 - 2.0 %) 0.4 Neut # (Auto) (2.0 - 7.6 x10 3/uL) 9.87 H Lymph # (Auto) (1.0 - 3.8 x10 3/uL) 1.20 [place] # (Auto) (0.1 - 0.8 x10 3/uL) 1.54 H Eos # (Auto) (0.0 - 0.2 x10 3/uL) 0.22 H Baso # (Auto) (0.0 - 0.2 x10 3/uL) 0.05 Abs Immat Gran (auto) (0.00 - 0.03 x10 3/uL) 0.12 H Add Manual Diff NO Immature Gran % (0.0 - 2.0 %) 0.9 Nucleated RBC % (0 - 0 %) 0.4 H Nucleated RBCs # (Man) (0.0 - 0.1 x10 3/uL) 0.05 Results: labs reviewed, vital signs reviewed, rhythm personally rev'dTelemetry Interpretation:sinus rhythm Diagnosis, Assessment PlanPlan discussed with: patient, spouse/partner, healthcare power of atty, collaborating MD, nurse Free Text DxA P NotesFree Text DxA P Notes:68 YO female with MHx of IDDM on insulin pump, nonhealing foot ulcers, ESRD on HD MWF, recent diagnosis of severe cardiomyopathy, HFrEF with LVEF of 25% as well as severe MR. She had elective coronary and peripheral angiogram today, which revealed multivessel CAD and severe bilateral PAD. Vascular surgery and cardiothoracic surgery has been consulted. History provided by the patient and supplemented by niece who is the MPOA. 1. Multivessel CAD* Aspirin, statin* extremely elevated STS risk score about 50%* nuclear viability study reviewed- scar at apex otherwise viable* CTA head, neck, abdomen, pelvis, subclavian artery, carotid arteries, mesenteric arteries reviewed. 2. Severe PAD with nonhealing foot ulcers* Vascular surgery recommendation noted 3. Mitral regurgitation* moderate to severe MR on TTE with contrast* JULIA reviewed 4. Ischemic cardiomyopathy/HFrEF* volume management per HD* on midodrine d/t chronic hypotension* no ACEI or ARB d/t chronic hypotension requiring midodrine 5. ESRD - on HD* nephrology following 6. IDDM* per primary team Patient will be presented in the conference today to decide on high risk revascularization (likely PCI) vs medical therapy. MDM by Dr. Pak. Kimberly Pak 07/21/23 2136:Attestations Physician AttestationAgree w/findings plan:I have seen and examined the pt, I Agree with the findings and plan as documented by Yue Barragan. at 1148 at 2137 RPT #:[id number] OF REPORTPRProgress [id number]:18:00G.[id number] ailable for patient rqfjGALVTSIEFPXFAA4987-11-51H28:48:59 [facility] [place] 2023-07-19 06:41:00 [id number] omT+pc XgfrA1/X17xREnymhwjCFZkpx8pF5l7420-54-76P61:41 :00 [facility] ProgREPORT#:[id number] REPORT STATUS: SignedDATE:07/19/23 TIME: 640 PATIENT: JOSEPH ROWLEY UNIT #: [id number]#: [id number] ROOM/BED: 3356-1DOB: [birth year] AGE: 68 SEX: F ATTEND: Tanvir Prasad Juliane [facility] AUTHOR: Trudy Colindres Physic * ALL edits or amendments must be made on the electronic/computer document * SubjectiveChief complaint:CAD, eval for CABG PVD nonhealing lower extremity ulcers Patient resting comfortable. Denies chest pain Review of SystemsConstitutional:Denies: fever, generalized weakness. Skin:Denies: rash, swelling. Allergy/Immun:Denies: itching, rhinorrhea. Eyes:Denies: itching, diplopia. Respiratory:Denies: VICENTE (dyspnea on exertion), hemoptysis. Cardiovascular:Denies: VICENTE (dyspnea on exertion), edema. GI:Denies: constipation, diarrhea. :Denies: dysuria, hematuria. Musculoskeletal:Denies: joint pain, joint swelling. Heme:Denies: bleeding, bruising. Endocrine:Denies: polydipsia, polyuria. Neuro:Denies: confusion, dizziness. All systems rev neg: except as marked Objective Physical ExamGeneral appearance: alert, awake, orientedHEENT: anicteric, mucosal membranes moistCardiovascular: BP/pulses equal bilat., regular rate rhythmRespiratory: aerating well, clear to auscultationAbdomen: soft, non-tenderExtremities: dry, moves allMusculoskeletal: full range of motion, painless range of motionNeuro/CREDENTIALS SPECIALIST: alert, oriented X 3Skin: dry, intactUlcer: Type/cause: diabetic (right heel ulcer), arterial Diagnosis, Assessment PlanHospital course to date: This is a very pleasant 68-year-old female with a past medical history of type 1diabetes from the age of 46 years old, end-stage renal disease, on dialysis sinceSept2021, hypertension who presented to her inventory management specialist for evaluation ofbilateral nonhealing ulcerations of her bilateral heels for the past 3 months, and shortness of breath with exertion. Her last echocardiogram was completed with her inventory management specialist showing an EF 20-25%with mild LVH, severe global hypokinesis, mildly dilated left atrium with moderate aortic sclerosis without stenosis, mitral valve leaflets mildly thickened with severe MR, mild to moderate TR, moderate pulmonary hypertension with an RV systolic pressure 62 mmHg. Patient underwent left heart catheterization today and was found to have severe three-vessel coronary artery disease, with severe bilateral occluded SFAs of thelower extremity. CV surgery consulted for evaluation for coronary artery bypass graft surgery Assessment/plan1. Severe three-vessel CAD2. Type I diabetic3. Severe peripheral vascular disease4. Nonhealing bilateral heel ulcerations5. Hypertension6. Hyperlipidemia7. CHF Documented EF 20-25% in the outpatient setting . Mitral valve regurgitation Noted to be severe on echocardiogram from March 2023 in the outpatient setting Patient with severe multivessel CAD. Patient will be worked up for CAD, Further recs to follow. Thank you for this consult. 07/12/23 Echo Left ventricle: The cavity size is normal. Wall thickness is normal. Systolic function is severely reduced. The estimated ejection fraction is 30-34%. Severe diffuse hypokinesis. Doppler parameters are consistent with restrictive physiology, indicative of decreased left ventricular diastolic compliance and/or increased left atrial pressure. Average global longitudinal strain is -5.7.2. Right ventricle: Systolic function is mildly to moderately reduced. Systolic pressure is severely increased.3. Left atrium: The atrium is dilated. The end-systolic volume index (A-L) is 50 ml/m 2.4. Mitral valve: The annulus is calcified. Prolapse cannot be excluded. There is moderate to severe regurgitation, directed posteriorly and along the left atrial wall. The effective regurgitant orifice (PISA) is 0.39 cm 2. The regurgitant volume (PISA) is 46 ml.5. Tricuspid valve: Estimated right ventricular systolic pressure is 76 mmHg. There is moderate-severe regurgitation directed toward the septum.6. Pericardium, extracardiac: There is a large left pleural effusion.7. Inferior vena cava: The vessel is dilated. The respirophasic diameter changes are blunted (< 50%). Inferior vena cava diameter measures 2.2 cm. 07/13/23Patinet resting comfortable, Denies any new complaints. On room air. Sinus rhythm. AAO x 3Cardiac workup still underway. CTA head, abdomena nd pelvis ordered by cardiology. Patient will be presented in the high risk cardiology conference. Further recs to follow. 07/14/23Patient resting comfortable,Denies chest painsComplains of bilateral heel ulcerationsSinus rhythmOn room airCarotid Doppler showed no carotid artery stenosisPatient is considered high risk due to multiple comorbidities, ESRD, CHF, DMPatient will be discussed in the high risk conferenceFurther recommendations toPatient was seen with Dr. Sousa 07/15/23Patient resting comfortableDenies complaints, denies chest painsRemains on room airSinus rhythmPatient underwent viability study today. Pending resultsOn dialysis, followed by renalPatient STS score estimated at 50%Further recommendations to follow 07/16/23Patient resting comfortable, denies chest painNo new complaintsRemains on room airSinus rhythmPending viability study results.Dialysis per renal.Patient will be discussed in the high risk conference next week. 07/17/23Patient resting comfortable, No complaints. Remains sinus rhythm. on room air. Viability study completed EF 28%Dialysis as per renalMedical management as per cardiologyPatient will be discussed in high risk conference next week. 07/18/23Patient resting comfortableDenies chest painsOn room airDialysis planned for todayRemains sinus rhythmAnemia managed per nephrologyPatient will be discussed in the high risk cardiology conferenceFurther recommendations to follow 07/19/23Patient resting comfortable. Denies chest pains. AAO x 3on room air. Dialysis yesterday. Free Text A P:This is a very pleasant 68-year-old female with a past medical history of type 1diabetes from the age of 46 years old, end-stage renal disease, on dialysis sinceSeptember 2021, hypertension who presented to her inventory management specialist for evaluation ofbilateral nonhealing ulcerations of her bilateral heels for the past 3 months, and shortness of breath with exertion. Her last echocardiogram was completed with her inventory management specialist showing an EF 20-25%with mild LVH, severe global hypokinesis, mildly dilated left atrium with moderate aortic sclerosis without stenosis, mitral valve leaflets mildly thickened with severe MR, mild to moderate TR, moderate pulmonary hypertension with an RV systolic pressure 62 mmHg. Patient underwent left heart catheterization today and was found to have severe three-vessel coronary artery disease, with severe bilateral occluded SFAs of thelower extremity. CV surgery consulted for evaluation for coronary artery bypass graft surgery Assessment/plan1. Severe three-vessel CAD2. Type I diabetic3. Severe peripheral vascular disease4. Nonhealing bilateral heel ulcerations5. Hypertension6. Hyperlipidemia7. CHF Documented EF 20-25% in the outpatient setting . Mitral valve regurgitation Noted to be severe on echocardiogram from March 2023 in the outpatient setting Patient with severe multivessel CAD. Patient will be worked up for CAD, Further recs to follow. Thank you for this consult. 07/12/23 Echo Left ventricle: The cavity size is normal. Wall thickness is normal. Systolic function is severely reduced. The estimated ejection fraction is 30-34%. Severe diffuse hypokinesis. Doppler parameters are consistent with restrictive physiology, indicative of decreased left ventricular diastolic compliance and/or increased left atrial pressure. Average global longitudinal strain is -5.7.2. Right ventricle: Systolic function is mildly to moderately reduced. Systolic pressure is severely increased.3. Left atrium: The atrium is dilated. The end-systolic volume index (A-L) is 50 ml/m 2.4. Mitral valve: The annulus is calcified. Prolapse cannot be excluded. There is moderate to severe regurgitation, directed posteriorly and along the left atrial wall. The effective regurgitant orifice (PISA) is 0.39 cm 2. The regurgitant volume (PISA) is 46 ml.5. Tricuspid valve: Estimated right ventricular systolic pressure is 76 mmHg. There is moderate-severe regurgitation directed toward the septum.6. Pericardium, extracardiac: There is a large left pleural effusion.7. Inferior vena cava: The vessel is dilated. The respirophasic diameter changes are blunted (< 50%). Inferior vena cava diameter measures 2.2 cm. 07/13/23Patinet resting comfortable, Denies any new complaints. On room air. Sinus rhythm. AAO x 3Cardiac workup still underway. CTA head, abdomena nd pelvis ordered by cardiology. Patient will be presented in the high risk cardiology conference. Further recs to follow. 07/14/23Patient resting comfortable,Denies chest painsComplains of bilateral heel ulcerationsSinus rhythmOn room airCarotid Doppler showed no carotid artery stenosisPatient is considered high risk due to multiple comorbidities, ESRD, CHF, DMPatient will be discussed in the high risk conferenceFurther recommendations toPatient was seen with Dr. Sousa 07/15/23Patient resting comfortableDenies complaints, denies chest painsRemains on room airSinus rhythmPatient underwent viability study today. Pending resultsOn dialysis, followed by renalPatient STS score estimated at 50%Further recommendations to follow 07/16/23Patient resting comfortable, denies chest painNo new complaintsRemains on room airSinus rhythmPending viability study results.Dialysis per renal.Patient will be discussed in the high risk conference next week. 07/17/23Patient resting comfortable, No complaints. Remains sinus rhythm. on room air. Viability study completed EF 28%Dialysis as per renalMedical management as per cardiologyPatient will be discussed in high risk conference next week. 07/18/23Patient resting comfortableDenies chest painsOn room airDialysis planned for todayRemains sinus rhythmAnemia managed per nephrologyPatient will be discussed in the high risk cardiology conferenceFurther recommendations to follow 07/19/23Patient resting comfortableDenies chest painsComplains of heel painsOn room airSinus rhythmPatient was seen and examined with Dr. Lyon.Patient is high risk for surgical intervention.Dr. Lyon will discuss with cardiology and patient will be discussed in the high risk cardiology conference this week.Consultants: cardiology, nephrology at 1545 at 0509 RPT #:[id number] OF REPORTPRProgress [id number]:41:00G.[id number] ailable for patient [id number]:45:36 [facility] [place] 2023-07-18 18:27:00 [id number]/+iL W+VXLO Spu7iLyiFI1p1uOjJxxfPX+YyxdvGH6617-88-27H03:27 :00 [facility]oHospitalist Progress NoteREPORT#:[id number] REPORT STATUS: SignedDATE:07/18/23 TIME: 1826 PATIENT: JOSEPH ROWLEY UNIT #: [id number]#: [id number] [address]: [birth year] AGE: 68 SEX: F ATTEND: Tanvir Prasad AUTHOR: Tanvir Prasad MD * ALL edits or amendments must be made on the electronic/computer document * SubjectiveChief complaint:No cp, no sobHPI:Patient had a fever spike yesterday was started on empiric antibiotics with UA abnormal system of UTI she is less confused and more alert per patient/family atbedside Review of SystemsConstitutional:Reports: generalized weakness. Psych:Reports: depression. All systems rev neg: except as noted Objective GeneralVS/I O:Vital Signs: Date Time Temp Pulse Resp B/P B/P Pulse O2 O2 Flow FiO2 Mean Ox Delivery Rate 07/18 1857 97.9 91 14 102/55 0.0 94 Room air 09/ 1812 98.2 85 22 102/55 98 Room air 09/ 1804 86 09/04 1800 86 26 102/55 76 99 09/04 1745 83 28 107/58 79 97 09/04 1730 77 26 106/55 77 98 09/04 1715 81 32 108/56 79 98 09/04 1712 82 32 126/58 83 97 09/04 1613 98.1 80 14 113/58 0.0 100 Room air 09/04 1612 80 23 113/58 84 98 09/04 1600 81 17 111/53 77 100 09/04 1545 80 32 105/55 78 99 09/04 1530 77 33 119/56 80 87 09/04 1515 79 30 111/54 78 98 09/04 1500 73 26 108/53 76 99 09/04 1445 74 22 112/57 77 91 09/04 1439 98.2 68 22 109/54 98 Room air 09/04 1430 71 26 105/59 76 100 09/04 1415 68 25 106/59 79 70 09/04 1403 68 26 109/54 76 88 09/04 1229 69 25 106/54 78 98 09/04 0626 98.6 76 15 96/60 72.1 95 Room air 09/04 0441 98.6 78 14 103/53 0.0 94 Room air /03 2349 98.4 77 14 96/56 0.0 95 Room air /03 2047 96 Room air 24 hour I O ending at 0700: 07/18 0700 07/17 1900 Intake Total 240 Output Total Balance 240 Intake, Oral 240 Number Voids 1 Output, Emesis Patient 63.9 kg Weight Weight Bed scale Measurement Method PATIENT WEIGHT: Weight (lb): 140Weight (oz): 14.01Weight (kg): 63.900 Medications:Active Meds + DC'd Last 24 HrsMidodrine (PROAMATINE) 7.5 MG 0800,1200,1600 PO Epoetin Tanner-epbx (RETACRIT) 10,000 UNIT TuThSa@2100 IV Loperamide HCl (IMODIUM CAPSULE) 2 MG QID PRN PRN PO Ceftriaxone Sodium (ROCEPHIN 1000MG VIAL) 1,000 MG Q24H IV Sodium Chloride (SODIUM CHLORIDE) 10 MLAspirin (ASPIRIN) 81 MG DAILY PO Midodrine (PROAMATINE) 5 MG 0800,1200,1600 PO (DC) Acetaminophen (TYLENOL) 650 MG Q6H PRN PRN PO Atorvastatin Calcium (LIPITOR) 40 MG BEDTIME PO Albumin Human (ALBUMINAR-25%) 12.5 GM ASDIR PRN IV Heparin Sodium (Porcine) (HEPARIN SODIUM) 3,000 UNIT ASDIR PRN DIALYSIS Lidocaine HCl (LIDOCAINE HCL/PF) 0.5 ML ASDIR PRN I-DERMAL (CKD) Mannitol (Mannitol 20%) 12.5 GM ASDIR PRN IV Sodium Chloride (SODIUM CHLORIDE 0.9%) 2,000 ML ASDIR PRN IV Sodium Chloride (SODIUM CHLORIDE) 5 ML ASDIR PRN IV Sodium Chloride (SODIUM CHLORIDE) 10 ML ASDIR PRN IV Sodium Chloride (SODIUM CHLORIDE 0.9%) 250 ML ASDIR PRN IV Physical ExamGeneral appearance: alert, awake, orientedHead/Eyes: atraumatic, normal conjunctiva/sclera, normal eyelids/periorb.Neck: full range of motionCardiovascular: normal capillary refill, normal heart sounds, regular rate rhythmRespiratory: aerating well, clear to auscultation, symmetric expansion, no distressAbdomen: non-tender, normal bowel sounds, soft, no distentionExtremities: no edemaNeuro/CREDENTIALS SPECIALIST: alert, oriented X 3Ulcer: Type/cause: diabetic (right heel ulcer), arterialPsychiatry: depressed ResultsFindings/Data:Laboratory Tests 07/18 07/18 1610 1128 Chemistry Sodium (134 - 147 mEq/L) 128 L Potassium (3.4 - 5.0 mEq/L) 4.6 Chloride (100 - 108 mEq/L) 93 L Carbon Dioxide (21 - 33 mEq/l) 20 L Anion Gap (0 - 20) 20 BUN (7 - 25 mg/dL) 32 H Creatinine (0.6 - 1.3 mg/dL) 4.2 H Glomerular Filtr Rate (80 - 90) 11.1 L Glucose (77 - 141 mg/dL) 160 H POC Glucose (70 - 110 MG/DL) 96 Calcium (8.0 - 10.5 mg/dL) 9.1 Phosphorus (2.5 - 4.9 MG/DL) 4.5 Laboratory Tests 07/18 1128 Hematology WBC (4.5 - 11.0 x10 3/uL) 13.0 H RBC (3.54 - 5.02 x10 6/uL) 2.47 L Hgb (11.0 - 15.0 g/dL) 8.3 L Hct (33.0 - 45.0 %) 27.8 L MCV (81.0 - 99.0 fL) 112.6 H MCH (27.0 - 33.0 pg) 33.6 H MCHC (33.0 - 37.0 g/dL) 29.9 L RDW (11.5 - 14.5 %) 17.2 H Plt Count (150 - 400 x10 3/uL) 271 MPV (7.0 - 9.0 fL) 12.3 H Neut % (Auto) (56.0 - 77.0 %) 76.0 Lymph % (Auto) (14.0 - 32.0 %) 9.2 L [place] % (Auto) (4.8 - 9.0 %) 11.8 H Eos % (Auto) (0.3 - 3.7 %) 1.7 Baso % (Auto) (0.0 - 2.0 %) 0.4 Neut # (Auto) (2.0 - 7.6 x10 3/uL) 9.87 H Lymph # (Auto) (1.0 - 3.8 x10 3/uL) 1.20 [place] # (Auto) (0.1 - 0.8 x10 3/uL) 1.54 H Eos # (Auto) (0.0 - 0.2 x10 3/uL) 0.22 H Baso # (Auto) (0.0 - 0.2 x10 3/uL) 0.05 Abs Immat Gran (auto) (0.00 - 0.03 x10 3/uL) 0.12 H Add Manual Diff NO Immature Gran % (0.0 - 2.0 %) 0.9 Nucleated RBC % (0 - 0 %) 0.4 H Nucleated RBCs # (Man) (0.0 - 0.1 x10 3/uL) 0.05 Diagnosis, Assessment PlanConsultants: cardiology, nephrology Free Text DxA P NotesFree text DxA P notes:68-year-old female with a past medical history of type 1 diabetes from the age of 46 years old, end-stage renal disease, on dialysis since July 2022, hypertension who presented to her inventory management specialist for evaluation of bilateral nonhealing ulcerations of her bilateral heels for the past 3 months, and shortness of breath with exertion. Left heart catheterization showed significant for severe three-vessel coronary artery disease with severe bilateral occluded SFAs of the lower extremity. Issues as below. Suspected urinary tract infectionSevere three-vessel CADSevere peripheral vascular diseaseDiabetes mellitusEnd-stage renal failure on hemodialysis Nonhealing bilateral heel ulcerationsHypertensionHyperlipidemiaCHF Mitral valve regurgitation Plan and recommendations Patient admitted into medicineVital signs every 4PatientAntiplatelets and statin per cardiologySeen by vascular surgery" CT surgery. Nephrology for hemodialysis. Will do basic lab work include CBC BMP now. Patient is not having significant hypoxia at this timeDVT prophylaxisRestart home medicationsDiscussed management plan in detail with patient's family. 07/13/[address] surgery and vascular surgery plansHemodialysis was done yesterdayHemodialysis per nephrologyMonitor renal functionBlood sugar control with insulin pump. 07/14/2023 Fever spike last night blood cultures on empiric antibiotics for possible UTIAntibiotics changedFollow-up on culturesFollow-up on cardiothoracic surgery and oncology recommendations plan to have discussion tomorrowBlood sugars controlledLab work otherwise stableDVT prophylaxisHemodialysis per nephrology 07/15- take over care from another group -- review all lab and image -- she is seen in the stress test lab . no cp no sob -- urine culture --positive continue rocephin iv -- blood culture -- no grow -- stress test -- pending --continue HD as schedule 07/16 High revascularization risk, will be discussed on Tuesday in clinical conference, ejection fraction 28%, viable tissue except apical scar, continue with dialysis, severe peripheral artery disease with heel ulcers, mitral valve regurgitation. 07/17 conference on Tuesday regarding the decision to proceed with revascularization, depressed, wound care to heels, increase midodrine to 10 mg 3times daily in view of persistent hypotension. 07/18 hyponatremic with sodium of 128, on hemodialysis, blood pressure has improved on midodrine, revascularization decision in a.m., daughter is at bedside, wound care. at 2049 RPT #:[id number] OF REPORTPRProgress [id number]:27:00G.[id number] ailable for patient [id number]:48:16 [facility] [place] 2023-07-18 11:48:00 [id number]/E/L/FQXPgxWiQauF4yT+8ZhG sqws3K CQHJOz5+5A/aMtawkgihP6mnJXxeKx1636-92-33G49:48 :00 [facility])Cardiothoracic Surgery ProgREPORT#:[id number] REPORT STATUS: SignedDATE:07/18/23 TIME: 1148 PATIENT: JOSEPH ROWLEY UNIT #: [id number]#: [id number] [address] [birth year] AGE: 68 SEX: F ATTEND: Tanvir Prasad MDADM AUTHOR: Trudy Colindres Physic * ALL edits or amendments must be made on the electronic/computer document * SubjectiveChief complaint:CAD, eval for CABGPVD nonhealing lower extremity ulcersPatient resting comfortable.Denies chest pain Review of SystemsConstitutional:Denies: fever, generalized weakness. Skin:Denies: rash, swelling. Allergy/Immun:Denies: itching, rhinorrhea. Eyes:Denies: itching, diplopia. Respiratory:Denies: VICENTE (dyspnea on exertion), hemoptysis. Cardiovascular:Denies: VICENTE (dyspnea on exertion), edema. GI:Denies: constipation, diarrhea. :Denies: dysuria, hematuria. Musculoskeletal:Denies: joint pain, joint swelling. Heme:Denies: bleeding, bruising. Endocrine:Denies: polydipsia, polyuria. Neuro:Denies: confusion, dizziness. All systems rev neg: except as marked Objective GeneralVS/I OLast Documented: Result Date Time Pulse Ox 95 07/18 626 B/P 96/60 07/18 626 B/P Mean 72.1 07/18 626 O2 Delivery Room air 07/18 626 Temp 98.6 07/18 626 Pulse 76 07/18 626 Resp 15 07/18 626 O2 Flow Rate 5 07/15 1635 24 hour I O ending at 0700: 07/18 0700 07/17 1900 Intake Total 240 Output Total Balance 240 Intake, Oral 240 Number Voids 1 Output, Emesis Patient 63.9 kg Weight Weight Bed scale Measurement Method PATIENT WEIGHT: Weight (lb): 140Weight (oz): 14.01Weight (kg): 63.900 Physical ExamGeneral appearance: alert, awake, orientedHEENT: anicteric, mucosal membranes moistCardiovascular: BP/pulses equal bilat., regular rate rhythmRespiratory: aerating well, clear to auscultationAbdomen: soft, non-tenderExtremities: dry, moves allMusculoskeletal: full range of motion, painless range of motionNeuro/CREDENTIALS SPECIALIST: alert, oriented X 3Skin: dry, intactUlcer: Type/cause: diabetic (right heel ulcer), arterial Diagnosis, Assessment PlanHospital course to date: This is a very pleasant 68-year-old female with a past medical history of type 1diabetes from the age of 46 years old, end-stage renal disease, on dialysis sinceSept2021, hypertension who presented to her inventory management specialist for evaluation ofbilateral nonhealing ulcerations of her bilateral heels for the past 3 months, and shortness of breath with exertion. Her last echocardiogram was completed with her inventory management specialist showing an EF 20-25%with mild LVH, severe global hypokinesis, mildly dilated left atrium with moderate aortic sclerosis without stenosis, mitral valve leaflets mildly thickened with severe MR, mild to moderate TR, moderate pulmonary hypertension with an RV systolic pressure 62 mmHg. Patient underwent left heart catheterization today and was found to have severe three-vessel coronary artery disease, with severe bilateral occluded SFAs of thelower extremity. CV surgery consulted for evaluation for coronary artery bypass graft surgery Assessment/plan1. Severe three-vessel CAD2. Type I diabetic3. Severe peripheral vascular disease4. Nonhealing bilateral heel ulcerations5. Hypertension6. Hyperlipidemia7. CHF Documented EF 20-25% in the outpatient setting . Mitral valve regurgitation Noted to be severe on echocardiogram from March 2023 in the outpatient setting Patient with severe multivessel CAD. Patient will be worked up for CAD, Further recs to follow. Thank you for this consult. 07/12/23 Echo Left ventricle: The cavity size is normal. Wall thickness is normal. Systolic function is severely reduced. The estimated ejection fraction is 30-34%. Severe diffuse hypokinesis. Doppler parameters are consistent with restrictive physiology, indicative of decreased left ventricular diastolic compliance and/or increased left atrial pressure. Average global longitudinal strain is -5.7.2. Right ventricle: Systolic function is mildly to moderately reduced. Systolic pressure is severely increased.3. Left atrium: The atrium is dilated. The end-systolic volume index (A-L) is 50 ml/m 2.4. Mitral valve: The annulus is calcified. Prolapse cannot be excluded. There is moderate to severe regurgitation, directed posteriorly and along the left atrial wall. The effective regurgitant orifice (PISA) is 0.39 cm 2. The regurgitant volume (PISA) is 46 ml.5. Tricuspid valve: Estimated right ventricular systolic pressure is 76 mmHg. There is moderate-severe regurgitation directed toward the septum.6. Pericardium, extracardiac: There is a large left pleural effusion.7. Inferior vena cava: The vessel is dilated. The respirophasic diameter changes are blunted (< 50%). Inferior vena cava diameter measures 2.2 cm. 07/13/23Patinet resting comfortable, Denies any new complaints. On room air. Sinus rhythm. AAO x 3Cardiac workup still underway. CTA head, abdomena nd pelvis ordered by cardiology. Patient will be presented in the high risk cardiology conference. Further recs to follow. 07/14/23Patient resting comfortable,Denies chest painsComplains of bilateral heel ulcerationsSinus rhythmOn room airCarotid Doppler showed no carotid artery stenosisPatient is considered high risk due to multiple comorbidities, ESRD, CHF, DMPatient will be discussed in the high risk conferenceFurther recommendations toPatient was seen with Dr. Sousa 07/15/23Patient resting comfortableDenies complaints, denies chest painsRemains on room airSinus rhythmPatient underwent viability study today. Pending resultsOn dialysis, followed by renalPatient STS score estimated at 50%Further recommendations to follow 07/16/23Patient resting comfortable, denies chest painNo new complaintsRemains on room airSinus rhythmPending viability study results.Dialysis per renal.Patient will be discussed in the high risk conference next week. 07/17/23Patient resting comfortable, No complaints. Remains sinus rhythm. on room air. Viability study completed EF 28%Dialysis as per renalMedical management as per cardiologyPatient will be discussed in high risk conference next week. 07/18/23Patient resting comfortableDenies chest painsOn room airDialysis planned for todayRemains sinus rhythmAnemia managed per nephrologyPatient will be discussed in the high risk cardiology conferenceFurther recommendations to follow Consultants: cardiology, nephrology at 1150 at 1604 RPT #:[id number] OF REPORTPRProgress [id number]:48:00G.[id number] ailable for patient pseaFWSDXYLDAYWGUN9756-99-49C02:51:17 [facility] [place] 2023-07-18 10:20:00 [id number] RW1h9I AXFADhGuopUXQ9vma3hrNAQQMj0R4y8040-99-53V65:20 :00 [facility] ([facility]Nephrology Progress NoteREPORT#:[id number] REPORT STATUS: SignedDATE:07/18/23 TIME: 1020 PATIENT: AMRIKJOSEPH UNIT #: [id number]#: [id number] ROOM/BED: 3356-1DOB: [birth year] AGE: 68 SEX: F ATTEND: OsmarTanvir Juliane MDADM AUTHOR: Winnie Noyola MD * ALL edits or amendments must be made on the electronic/computer document * SubjectiveComments:On dialysis, tolerating it well Objective GeneralVS/I O:Vital Signs: Date Time Temp Pulse Resp B/P B/P Pulse O2 O2 Flow FiO2 Mean Ox Delivery Rate 07/18 06 98.6 76 15 96/60 72.1 95 Room air 07/18 0441 98.6 78 14 103/53 0.0 94 Room air 07/17 2349 98.4 77 14 96/56 0.0 95 Room air 07/17 2047 96 Room air 07/17 1927 97.3 72 14 97/54 0.0 97 Room air 07/17 1846 71 19 97 /03 1800 71 22 100 /03 1743 97.3 15 99/55 0.0 99 09/03 1735 70 20 99/55 74 97 09/03 1700 70 24 98 09/03 1600 65 21 96 09/03 1500 70 27 98 09/03 1400 71 19 98 /03 1222 85 98 09/03 1221 97.5 81 16 96/61 72.9 98 09/03 1200 84 97 09/03 1100 85 30 100 24 hour I O ending at 0700: 07/18 0700 07/17 1900 Intake Total 240 Output Total Balance 240 Intake, Oral 240 Number Voids 1 Output, Emesis Patient 63.9 kg Weight Weight Bed scale Measurement Method PATIENT WEIGHT: Weight (lb): 140Weight (oz): 14.01Weight (kg): 63.900 MedicationsActive Meds + DC'd Last 24 HrsMidodrine (PROAMATINE) 7.5 MG 0800,1200,1600 PO Epoetin Tanner-epbx (RETACRIT) 10,000 UNIT TuThSa@2100 IV Sterile Water (WATER FOR INJECTION) 2.2 ML ASDIR PRN IV (DC) Sterile Water (WATER FOR INJECTION) 2.2 ML ASDIR PRN IV (DC) Loperamide HCl (IMODIUM CAPSULE) 2 MG QID PRN PRN PO Ceftriaxone Sodium (ROCEPHIN 1000MG VIAL) 1,000 MG Q24H IV Sodium Chloride (SODIUM CHLORIDE) 10 MLAspirin (ASPIRIN) 81 MG DAILY PO Midodrine (PROAMATINE) 5 MG 0800,1200,1600 PO (DC) Acetaminophen (TYLENOL) 650 MG Q6H PRN PRN PO Atorvastatin Calcium (LIPITOR) 40 MG BEDTIME PO Albumin Human (ALBUMINAR-25%) 12.5 GM ASDIR PRN IV Heparin Sodium (Porcine) (HEPARIN SODIUM) 3,000 UNIT ASDIR PRN DIALYSIS Lidocaine HCl (LIDOCAINE HCL/PF) 0.5 ML ASDIR PRN I-DERMAL (CKD) Mannitol (Mannitol 20%) 12.5 GM ASDIR PRN IV Sodium Chloride (SODIUM CHLORIDE 0.9%) 2,000 ML ASDIR PRN IV Sodium Chloride (SODIUM CHLORIDE) 5 ML ASDIR PRN IV Sodium Chloride (SODIUM CHLORIDE) 10 ML ASDIR PRN IV Sodium Chloride (SODIUM CHLORIDE 0.9%) 250 ML ASDIR PRN IV Physical ExamGeneral appearance: alert, awake, orientedHead/eyes: atraumatic, normocephalic, PERRLAENT: moist mucous membranesNeck: no JVD, no lymphadenopathy, no masses or swellingCardiovascular: normal heart sounds, regular rate and rhythm, no murmur, no rubRespiratory: aerating well, clear to auscultation, normal breath sounds, no distressAbdomen: non-tender, normal bowel sounds, soft, no reboundGenitourinary: no bladder distention, no flank pain, no urinary catheterExtremities: no edema, no gangreneNeuro/CREDENTIALS SPECIALIST: alert, oriented X 3, CN II-XII intact, normal speechUlcer: Type/cause: diabetic (right heel ulcer), arterial ResultsFindings/Data:Laboratory Tests 07/17 07/17 07/17 1930 1737 1219 Chemistry POC Glucose (70 - 110 MG/DL) 91 45 L 163 H Diagnosis, Assessment PlanFree Text A P:1. ESRD continue with dialysis Tuesday. Currently on hemodialysis, tolerating it well 2. Hypotension on midodrine 3. Coronary disease needs CABG, CT surgery on case 4. Diabetes type 1 per primary team 5. Anemia of CKD on MATT as hemoglobin less than 10, increase to 10,000 unit 3 times a week Consultants: cardiology, nephrology at 1609 RPT #:[id number] OF REPORTPRProgress [id number]:20:00G.[id number] ailable for patient dhvcBKGYGCVOTZEWUQ8908-47-59O95:10:11 [facility] 2023-07-18 08:12:00 [id number] wp4M+p 0r/2xuk5WBZQyp0f8CLkldC0OMUHab9784-58-42K11:12 :00 [facility] ([facility])Cardiology Progress NoteREPORT#:[id number] REPORT STATUS: SignedDATE:07/18/23 TIME: 08 PATIENT: JOSEPH ROWLEY UNIT #: [id number]#: [id number] [address] [birth year] AGE: 68 SEX: F ATTEND: Tanvir Prasad MDADM AUTHOR: Karmen Byrne NP * ALL edits or amendments must be made on the electronic/computer document * SubjectiveChief complaint:stable Objective GeneralVS/I O:Laboratory Tests 07/18/23 1128:[Embedded Image Not Available] 07/17/23 0410:[Embedded Image Not Available] 07/17/23 0409:[Embedded Image Not Available]Current Medications Sig/Stephan Start time Last Medication Dose Route Stop Time Status Admin Midodrine 7.5 MG 0800,1200,1600 07/18 0800 AC 07/18 PO 08/12 0759 1229 Epoetin Tanner-epbx 10,000 UNIT TuThSa@2100 07/16 2100 AC 07/16 IV 08/13 205 2157 Sterile Water 2.2 ML ASDIR PRN 07/16 1515 DC IV 07/17 1405 Sterile Water 2.2 ML ASDIR PRN 07/16 1515 DC IV 07/17 1406 Loperamide HCl 2 MG QID PRN PRN 07/15 2315 AC 07/17 PO 08/14 2314 1730 Ceftriaxone Sodium 1,000 MG Q24H 07/14 09 AC 07/18 Sodium Chloride 10 ML IV 07/19 0859 0857 Aspirin 81 MG DAILY 07/13 09 AC 07/18 PO 08/12 0859 0857 Midodrine 5 MG 0800,1200,1600 07/13 0800 DC 07/17 PO 08/12 0759 1730 Acetaminophen 650 MG Q6H PRN PRN 07/13 0045 AC 07/13 PO 08/12 0044 0106 Atorvastatin Calcium 40 MG BEDTIME 07/12 2100 AC 07/17 PO 08/11 205 2123 Albumin Human 12.5 GM ASDIR PRN 07/12 1645 AC 07/16 IV 08/12 1633 1715 Heparin Sodium 3,000 UNIT ASDIR PRN 07/12 1645 AC 07/14 (Porcine) DIALYSIS 08/11 1644 1320 Lidocaine HCl 0.5 ML ASDIR PRN 07/12 1645 CKD I-DERMAL 08/12 1633 Mannitol 12.5 GM ASDIR PRN 07/12 1645 AC IV 08/12 1633 Sodium Chloride 2,000 ML ASDIR PRN 07/12 1645 AC 07/14 IV 08/12 1633 0950 Sodium Chloride 5 ML ASDIR PRN 07/12 1645 AC IV 08/11 1644 Sodium Chloride 10 ML ASDIR PRN 07/12 1645 AC IV 08/11 1644 Sodium Chloride 250 ML ASDIR PRN 07/12 1645 AC IV 08/11 1644 24 hour I O ending at 0700: 07/18 0700 07/17 1900 Intake Total 240 Output Total Balance 240 Intake, Oral 240 Number Voids 1 Output, Emesis Patient 63.9 kg Weight Weight Bed scale Measurement Method Vital Signs: Date Time Temp Pulse Resp B/P B/P Pulse O2 O2 Flow FiO2 Mean Ox Delivery Rate 07/18 06 37.0 76 15 96/60 72.1 95 Room air 07/18 0441 37.0 78 14 103/53 0.0 94 Room air 07/17 2349 36.9 77 14 96/56 0.0 95 Room air 07/17 2047 96 Room air 07/17 1927 36.3 72 14 97/54 0.0 97 Room air 07/17 1846 71 19 97 09/03 1800 71 22 100 09/03 1743 36.3 15 99/55 0.0 99 09/03 1735 70 20 99/55 74 97 09/03 1700 70 24 98 09/03 1600 65 21 96 09/03 1500 70 27 98 09/03 1400 71 19 98 PATIENT WEIGHT: Weight (lb): 140Weight (oz): 14.01Weight (kg): 63.900 Physical ExamGeneral appearance: alert, awake, oriented, no acute distress, pleasantNeck: non-tender, no JVDCardiovascular: CV assessment: regular rate and rhythm Murmur assessment:heart murmurRespiratory: clear to auscultation, no distressAbdomen: soft, non-tender, normal bowel sounds, no distentionGenitourinary: no flank pain, no urinary catheterLower extremity: LE assessment: abnormal pedal pulse, abnormal peripheral pulseMusculoskeletal: normal inspectionNeuro/CREDENTIALS SPECIALIST: alert, oriented X 3, normal speechSkin: right heel ulcerUlcer: Type/cause: diabetic (right heel ulcer), arterialPsychiatry: normal affect, normal mood Diagnosis, Assessment PlanProblem List/A P: 1. HFrEF (heart failure with reduced ejection fraction) 2. Coronary artery disease 3. ESRD (end stage renal disease) on dialysis 4. Mitral regurgitation 5. PAD (peripheral artery disease) Consultants: cardiology, nephrology Free Text DxA P NotesFree Text DxA P Notes:68 YO female with MHx of IDDM on insulin pump, nonhealing foot ulcers, ESRD on HD MWF, recent diagnosis of severe cardiomyopathy, HFrEF with LVEF of 25% as well as severe MR. She had elective coronary and peripheral angiogram today, which revealed multivessel CAD and severe bilateral PAD. Vascular surgery and cardiothoracic surgery has been consulted. History provided by the patient and supplemented by niece who is the MPOA. 1. Multivessel CAD* Aspirin, statin* extremely elevated STS risk score about 50%* nuclear viability study reviewed- acar at apex otherwise viable* CTA head, neck, abdomen, pelvis to evaluate subclavian artery, carotid arteries, mesenteric arteries reviewed 2. Severe PAD with nonhealing foot ulcers* Vascular surgery recommendation noted 3. Mitral regurgitation* moderate to severe MR on TTE with contrast* JULIA reviewed 4. Ischemic cardiomyopathy/HFrEF* volume management per HD* on midodrine d/t chronic hypotension* no ACEI or ARB d/t chronic hypotension requiring midodrine 5. ESRD - on HD* nephrology following 6. IDDM* per primary team Patient will be presented in the conference on Tuesday to decide on high risk revascularization (likely PCI) vs medical therapycontinue medical therapyon RA, vs stable MDM by Dr. Scott at 1302 at 1851 RPT #:[id number] OF REPORTPRProgress [id number]:12:00G.[id number] ailable for patient gqzsORZSJXEIGDCQMB6600-35-15Q89:02:38 [facility] [place] 2023-07-17 21:24:00 [id number] gSKZ5h zLauZ9NYJ+sEQwrmc8ob2lUpsUKfTm9480-81-07K13:24 :00 [facility] Progress NoteREPORT#:[id number] REPORT STATUS: SignedDATE:07/17/23 TIME: 2123 PATIENT: JOSEPH ROWLEY UNIT #: [id number]#: [id number] [address] [birth year] AGE: 68 SEX: F ATTEND: Tanvir Prasad AUTHOR: Tanvir Prasad MD * ALL edits or amendments must be made on the electronic/computer document * SubjectiveChief complaint:No cp, no sobHPI:Patient had a fever spike yesterday was started on empiric antibiotics with UA abnormal system of UTI she is less confused and more alert per patient/family atbedside Review of SystemsConstitutional:Reports: generalized weakness. All systems rev neg: except as noted Free Text ROS NotesFree Text ROS Notes:All 14 systems reviewed positive findings indicated above rest of the review systems negative Objective GeneralVS/I O:Vital Signs: Date Time Temp Pulse Resp B/P B/P Pulse O2 O2 Flow FiO2 Mean Ox Delivery Rate 07/17 1927 97.3 72 14 97/54 0.0 97 Room air 07/17 1846 71 19 97 09/03 1800 71 22 100 09/03 1743 97.3 15 99/55 0.0 99 09/03 1735 70 20 99/55 74 97 09/03 1700 70 24 98 09/03 1600 65 21 96 09/03 1500 70 27 98 09/03 1400 71 19 98 09/03 1222 85 98 09/03 1221 97.5 81 16 96/61 72.9 98 09/03 1200 84 97 09/03 1100 85 30 100 09/03 0917 93 97 09/03 0900 85 15 96 09/03 0833 98.2 82 14 97/60 72.7 95 09/03 0800 82 21 92 09/03 0700 84 27 97 09/03 0550 82 95/52 66 94 09/03 0300 93 14 82/46 61 96 09/03 0230 88 23 92/54 68 94 09/02 2330 103 30 113/62 80 99 09/02 2315 96 31 107/56 80 97 24 hour I O ending at 0700: 07/17 0700 07/16 1900 Intake Total 500 Output Total 1200 Balance -1200 500 Intake, Oral 500 Output, 1200 Hemodialysis PATIENT WEIGHT: Weight (lb): 131Weight (oz): 6.33Weight (kg): 59.600 Medications:Active Meds + DC'd Last 24 HrsEpoetin Tanner-epbx (RETACRIT) 10,000 UNIT TuThSa@2100 IV Sterile Water (WATER FOR INJECTION) 2.2 ML ASDIR PRN IV (DC) Sterile Water (WATER FOR INJECTION) 2.2 ML ASDIR PRN IV (DC) Loperamide HCl (IMODIUM CAPSULE) 2 MG QID PRN PRN PO Ceftriaxone Sodium (ROCEPHIN 1000MG VIAL) 1,000 MG Q24H IV Sodium Chloride (SODIUM CHLORIDE) 10 MLAspirin (ASPIRIN) 81 MG DAILY PO Midodrine (PROAMATINE) 5 MG 0800,1200,1600 PO Acetaminophen (TYLENOL) 650 MG Q6H PRN PRN PO Atorvastatin Calcium (LIPITOR) 40 MG BEDTIME PO Albumin Human (ALBUMINAR-25%) 12.5 GM ASDIR PRN IV Heparin Sodium (Porcine) (HEPARIN SODIUM) 3,000 UNIT ASDIR PRN DIALYSIS Lidocaine HCl (LIDOCAINE HCL/PF) 0.5 ML ASDIR PRN I-DERMAL (CKD) Mannitol (Mannitol 20%) 12.5 GM ASDIR PRN IV Sodium Chloride (SODIUM CHLORIDE 0.9%) 2,000 ML ASDIR PRN IV Sodium Chloride (SODIUM CHLORIDE) 5 ML ASDIR PRN IV Sodium Chloride (SODIUM CHLORIDE) 10 ML ASDIR PRN IV Sodium Chloride (SODIUM CHLORIDE 0.9%) 250 ML ASDIR PRN IV Physical ExamGeneral appearance: alert, awake, orientedHead/Eyes: atraumatic, normal conjunctiva/sclera, normal eyelids/periorb.Neck: full range of motionCardiovascular: normal capillary refill, normal heart sounds, regular rate rhythmRespiratory: aerating well, clear to auscultation, symmetric expansion, no distressAbdomen: non-tender, normal bowel sounds, soft, no distentionExtremities: no edemaNeuro/CREDENTIALS SPECIALIST: alert, oriented X 3Ulcer: Type/cause: diabetic (right heel ulcer), arterial ResultsFindings/Data:Laboratory Tests 07/17 07/17 07/17 07/17 07/17 1930 1737 1219 0410 0410Chemistry POC Glucose (70 - 110 MG/DL) 91 45 L 163 H Hemoglobin A1c (4.8 - 6.0 %A1C) 7.5 H B-Natriuretic Peptide (0 - 100 > 5000.0 HPG/ML) 07/17 0409 Chemistry Sodium (134 - 147 mEq/L) 134 Potassium (3.4 - 5.0 mEq/L) 4.5 Chloride (100 - 108 mEq/L) 96 L Carbon Dioxide (21 - 33 mEq/l) 21 Anion Gap (0 - 20) 21 H BUN (7 - 25 mg/dL) 21 Creatinine (0.6 - 1.3 mg/dL) 2.7 H Glomerular Filtr Rate (80 - 90) 18.9 L Glucose (77 - 141 mg/dL) 241 H Calcium (8.0 - 10.5 mg/dL) 9.3 Magnesium (1.6 - 2.6 mg/dL) 2.09 Triglycerides (40 - 150 mg/dL) 158 H Cholesterol (<200 mg/dL) 122 LDL Cholesterol Measurd (0 - 100 mg/dL) 77.0 HDL Cholesterol (40 - 60 MG/DL) 23.0 L Cholesterol/HDL Ratio (3.27 - 4.44 RATIO) 5.30 H Laboratory Tests 07/17 0410 Hematology WBC (4.5 - 11.0 x10 3/uL) 11.6 H RBC (3.54 - 5.02 x10 6/uL) 2.48 L Hgb (11.0 - 15.0 g/dL) 8.2 L Hct (33.0 - 45.0 %) 26.4 L MCV (81.0 - 99.0 fL) 106.5 H MCH (27.0 - 33.0 pg) 33.1 H MCHC (33.0 - 37.0 g/dL) 31.1 L RDW (11.5 - 14.5 %) 16.9 H Plt Count (150 - 400 x10 3/uL) 279 MPV (7.0 - 9.0 fL) 11.9 H Neut % (Auto) (56.0 - 77.0 %) 78.3 H Lymph % (Auto) (14.0 - 32.0 %) 11.4 L [place] % (Auto) (4.8 - 9.0 %) 9.5 H Eos % (Auto) (0.3 - 3.7 %) 0.3 Baso % (Auto) (0.0 - 2.0 %) 0.2 Neut # (Auto) (2.0 - 7.6 x10 3/uL) 9.07 H Lymph # (Auto) (1.0 - 3.8 x10 3/uL) 1.32 [place] # (Auto) (0.1 - 0.8 x10 3/uL) 1.10 H Eos # (Auto) (0.0 - 0.2 x10 3/uL) 0.03 Baso # (Auto) (0.0 - 0.2 x10 3/uL) 0.02 Abs Immat Gran (auto) (0.00 - 0.03 x10 3/uL) 0.04 H Add Manual Diff NO Immature Gran % (0.0 - 2.0 %) 0.3 Nucleated RBC % (0 - 0 %) 0.0 Nucleated RBCs # (Man) (0.0 - 0.1 x10 3/uL) 0.00 Diagnosis, Assessment PlanConsultants: cardiology, nephrology Free Text DxA P NotesFree text DxA P notes:68-year-old female with a past medical history of type 1 diabetes from the age of 46 years old, end-stage renal disease, on dialysis since July 2022, hypertension who presented to her inventory management specialist for evaluation of bilateral nonhealing ulcerations of her bilateral heels for the past 3 months, and shortness of breath with exertion. Left heart catheterization showed significant for severe three-vessel coronary artery disease with severe bilateral occluded SFAs of the lower extremity. Issues as below. Suspected urinary tract infectionSevere three-vessel CADSevere peripheral vascular diseaseDiabetes mellitusEnd-stage renal failure on hemodialysis Nonhealing bilateral heel ulcerationsHypertensionHyperlipidemiaCHF Mitral valve regurgitation Plan and recommendations Patient admitted into medicineVital signs every 4PatientAntiplatelets and statin per cardiologySeen by vascular surgery" CT surgery. Nephrology for hemodialysis. Will do basic lab work include CBC BMP now. Patient is not having significant hypoxia at this timeDVT prophylaxisRestart home medicationsDiscussed management plan in detail with patient's family. 07/13/[address] surgery and vascular surgery plansHemodialysis was done yesterdayHemodialysis per nephrologyMonitor renal functionBlood sugar control with insulin pump. 07/14/2023 Fever spike last night blood cultures on empiric antibiotics for possible UTIAntibiotics changedFollow-up on culturesFollow-up on cardiothoracic surgery and oncology recommendations plan to have discussion tomorrowBlood sugars controlledLab work otherwise stableDVT prophylaxisHemodialysis per nephrology 07/15- take over care from another group -- review all lab and image -- she is seen in the stress test lab . no cp no sob -- urine culture --positive continue rocephin iv -- blood culture -- no grow -- stress test -- pending --continue HD as schedule 07/16 High revascularization risk, will be discussed on Tuesday in clinical conference, ejection fraction 28%, viable tissue except apical scar, continue with dialysis, severe peripheral artery disease with heel ulcers, mitral valve regurgitation. 07/17 conference on Tuesday regarding the decision to proceed with revascularization, depressed, wound care to heels, increase midodrine to 10 mg 3times daily in view of persistent hypotension. at 2129 RPT #:[id number] OF REPORTPRProgress [id number]:24:00G.[id number] ailable for patient iqhzXXICKWNVOMMLUQ6537-31-12O64:30:13 [facility] 2023-07-17 19:28:00 [id number] LO9kYf Tq0mU+utKEBzkq3BCpxGPr1t/jZ/qB8099-45-54F48:28 :00 [facility] Progress NoteREPORT#:[id number] REPORT STATUS: SignedDATE:07/17/23 TIME: 1927 PATIENT: JOSEPH ROWLEY UNIT #: [id number]#: [id number] [address] [birth year] AGE: 68 SEX: F ATTEND: Tanvir Prasad MDADM AUTHOR: Tomasa Feng MD * ALL edits or amendments must be made on the electronic/computer document * SubjectiveChief complaint:follow up of ESRD Review of SystemsConstitutional:Reports: generalized weakness. All systems rev neg: except as marked Objective GeneralVS/I O:Vital Signs: Date Time Temp Pulse Resp B/P B/P Pulse O2 O2 Flow FiO2 Mean Ox Delivery Rate 07/17 1927 97.3 72 14 97/54 0.0 97 Room air 07/17 1846 71 19 97 07/17 1800 71 22 100 07/17 1743 97.3 15 99/55 0.0 99 07/17 1735 70 20 99/55 74 97 07/17 1700 70 24 98 07/17 1600 65 21 96 / 1500 70 27 98 / 1400 71 19 98 07/17 1222 85 98 07/17 1221 97.5 81 16 96/61 72.9 98 07/17 1200 84 97 07/17 1100 85 30 100 07/17 0917 93 97 07/17 0900 85 15 96 07/17 0833 98.2 82 14 97/60 72.7 95 / 0800 82 21 92 07/17 0700 84 27 97 07/17 0550 82 95/52 66 94 07/17 0300 93 14 82/46 61 96 07/17 0230 88 23 92/54 68 94 07/16 2330 103 30 113/62 80 99 07/16 2315 96 31 107/56 80 97 07/16 2100 96 23 112/61 81 99 07/16 2045 104 23 110/55 77 100 07/16 2038 107 19 115/56 81 100 07/16 2015 90 24 86/48 62 98 07/16 2015 97.3 92 21 96/58 98 Room air 07/16 2000 88 27 97/51 70 96 24 hour I O ending at 0700: 07/17 0700 07/16 1900 Intake Total 500 Output Total 1200 Balance -1200 500 Intake, Oral 500 Output, 1200 Hemodialysis PATIENT WEIGHT: Weight (lb): 131Weight (oz): 6.33Weight (kg): 59.600 MedicationsActive Meds + DC'd Last 24 HrsEpoetin Tanner-epbx (RETACRIT) 10,000 UNIT TuThSa@2100 IV Sterile Water (WATER FOR INJECTION) 2.2 ML ASDIR PRN IV (DC) Sterile Water (WATER FOR INJECTION) 2.2 ML ASDIR PRN IV (DC) Loperamide HCl (IMODIUM CAPSULE) 2 MG QID PRN PRN PO Ceftriaxone Sodium (ROCEPHIN 1000MG VIAL) 1,000 MG Q24H IV Sodium Chloride (SODIUM CHLORIDE) 10 MLAspirin (ASPIRIN) 81 MG DAILY PO Midodrine (PROAMATINE) 5 MG 0800,1200,1600 PO Acetaminophen (TYLENOL) 650 MG Q6H PRN PRN PO Atorvastatin Calcium (LIPITOR) 40 MG BEDTIME PO Albumin Human (ALBUMINAR-25%) 12.5 GM ASDIR PRN IV Heparin Sodium (Porcine) (HEPARIN SODIUM) 3,000 UNIT ASDIR PRN DIALYSIS Lidocaine HCl (LIDOCAINE HCL/PF) 0.5 ML ASDIR PRN I-DERMAL (CKD) Mannitol (Mannitol 20%) 12.5 GM ASDIR PRN IV Sodium Chloride (SODIUM CHLORIDE 0.9%) 2,000 ML ASDIR PRN IV Sodium Chloride (SODIUM CHLORIDE) 5 ML ASDIR PRN IV Sodium Chloride (SODIUM CHLORIDE) 10 ML ASDIR PRN IV Sodium Chloride (SODIUM CHLORIDE 0.9%) 250 ML ASDIR PRN IV Physical ExamGeneral appearance: alert, awake, orientedHead/eyes: atraumatic, normocephalic, PERRLAENT: moist mucous membranesNeck: no JVD, no lymphadenopathy, no masses or swellingCardiovascular: normal heart sounds, regular rate and rhythm, no murmur, no rubRespiratory: aerating well, clear to auscultation, normal breath sounds, no distressAbdomen: non-tender, normal bowel sounds, soft, no reboundGenitourinary: no bladder distention, no flank pain, no urinary catheterExtremities: no edema, no gangreneNeuro/CREDENTIALS SPECIALIST: alert, oriented X 3, CN II-XII intact, normal speechUlcer: Type/cause: diabetic (right heel ulcer), arterial ResultsFindings/Data:Laboratory Tests 07/17 07/17 07/17 07/17 07/17 1737 1219 0410 0410 0409Chemistry Sodium (134 - 147 mEq/L) 134 Potassium (3.4 - 5.0 mEq/L) 4.5 Chloride (100 - 108 mEq/L) 96 L Carbon Dioxide (21 - 33 mEq/l) 21 Anion Gap (0 - 20) 21 H BUN (7 - 25 mg/dL) 21 Creatinine (0.6 - 1.3 mg/dL) 2.7 H Glomerular Filtr Rate (80 - 90) 18.9 L Glucose (77 - 141 mg/dL) 241 H POC Glucose (70 - 110 MG/DL) 45 L 163 H Hemoglobin A1c (4.8 - 6.0 %A1C) 7.5 H Calcium (8.0 - 10.5 mg/dL) 9.3 Magnesium (1.6 - 2.6 mg/dL) 2.09 B-Natriuretic Peptide (0 - 100 PG/ML) > 5000.0 H Triglycerides (40 - 150 mg/dL) 158 H Cholesterol (<200 mg/dL) 122 LDL Cholesterol Measurd (0 - 100 77.0mg/dL) HDL Cholesterol (40 - 60 MG/DL) 23.0 L Cholesterol/HDL Ratio (3.27 - 4.44 5.30 HRATIO) Laboratory Tests 07/17 410 Hematology WBC (4.5 - 11.0 x10 3/uL) 11.6 H RBC (3.54 - 5.02 x10 6/uL) 2.48 L Hgb (11.0 - 15.0 g/dL) 8.2 L Hct (33.0 - 45.0 %) 26.4 L MCV (81.0 - 99.0 fL) 106.5 H MCH (27.0 - 33.0 pg) 33.1 H MCHC (33.0 - 37.0 g/dL) 31.1 L RDW (11.5 - 14.5 %) 16.9 H Plt Count (150 - 400 x10 3/uL) 279 MPV (7.0 - 9.0 fL) 11.9 H Neut % (Auto) (56.0 - 77.0 %) 78.3 H Lymph % (Auto) (14.0 - 32.0 %) 11.4 L [place] % (Auto) (4.8 - 9.0 %) 9.5 H Eos % (Auto) (0.3 - 3.7 %) 0.3 Baso % (Auto) (0.0 - 2.0 %) 0.2 Neut # (Auto) (2.0 - 7.6 x10 3/uL) 9.07 H Lymph # (Auto) (1.0 - 3.8 x10 3/uL) 1.32 [place] # (Auto) (0.1 - 0.8 x10 3/uL) 1.10 H Eos # (Auto) (0.0 - 0.2 x10 3/uL) 0.03 Baso # (Auto) (0.0 - 0.2 x10 3/uL) 0.02 Abs Immat Gran (auto) (0.00 - 0.03 x10 3/uL) 0.04 H Add Manual Diff NO Immature Gran % (0.0 - 2.0 %) 0.3 Nucleated RBC % (0 - 0 %) 0.0 Nucleated RBCs # (Man) (0.0 - 0.1 x10 3/uL) 0.00 Diagnosis, Assessment PlanFree Text A P:1. ESRD continue with TTS dialysis this week and then switch her back to Tuesday next week. catheter did not work initially, had to place cathflo on Tuesday and worked ok after that 2. Hypotension on midodrine 3. Coronary disease needs CABG which is planned for next week, CT surgery consulted, work-up in progress 4. Diabetes type 1 per primary team 5. Anemia of CKD on MATT as hemoglobin less than 10, increase to 10,000 unit 3 times a week Consultants: cardiology, nephrology at 1930 RPT #:[id number] OF REPORTPRProgress sphs1505-73-70W40:28:00G.[id number] ailable for patient aqauZQVCKTQOFGQHXK7239-05-56C99:30:29 [facility] [place] 2023-07-17 10:44:00 [id number] [id number] [id number]K69:44 :00 [facility])Cardiology Progress NoteREPORT#:[id number] REPORT STATUS: SignedDATE:07/17/23 TIME: 1044 PATIENT: JOSEPH ROWLEY UNIT #: [id number]#: [id number] [address] [birth year] AGE: 68 SEX: F ATTEND: Tanvir Prasad MDADM AUTHOR: Karmen Byrne [employer] * ALL edits or amendments must be made on the electronic/computer document * SubjectiveChief complaint:visiting with family Objective GeneralVS/I O:Laboratory Tests 07/17/23 0410:[Embedded Image Not Available] 07/17/23 0409:[Embedded Image Not Available]Current Medications Sig/Stephan Start time Last Medication Dose Route Stop Time Status Admin Epoetin Tanner-epbx 10,000 UNIT TuThSa@2100 07/16 2100 AC 07/16 IV 08/13 2059 215 Alteplase, 2 MG ONCE ONE 07/16 1515 DC 07/16 Recombinant IV-CATH 07/16 1516 1530 Alteplase, 2 MG ONCE ONE 07/16 1515 DC 07/16 Recombinant IV-CATH 07/16 1516 1530 Sterile Water 2.2 ML ASDIR PRN 07/16 1515 AC IV 07/17 1405 Sterile Water 2.2 ML ASDIR PRN 07/16 1515 AC IV 07/17 1406 Loperamide HCl 2 MG QID PRN PRN 07/15 2315 AC 07/17 PO 08/14 2314 0842 Ceftriaxone Sodium 1,000 MG Q24H 07/14 09 AC 07/17 Sodium Chloride 10 ML IV 07/19 0859 0842 Aspirin 81 MG DAILY 07/13 09 AC 07/17 PO 08/12 0859 0842 Midodrine 5 MG 0800,1200,1600 07/13 0800 AC 07/17 PO 08/12 0759 0842 Acetaminophen 650 MG Q6H PRN PRN 07/13 0045 AC 07/13 PO 08/12 0044 0106 Atorvastatin Calcium 40 MG BEDTIME 07/12 2100 AC 07/16 PO 08/11 2059 2153 Albumin Human 12.5 GM ASDIR PRN 07/12 1645 AC 07/16 IV 08/12 1633 1715 Heparin Sodium 3,000 UNIT ASDIR PRN 07/12 1645 AC 07/14 (Porcine) DIALYSIS 08/11 1644 1320 Lidocaine HCl 0.5 ML ASDIR PRN 07/12 1645 CKD I-DERMAL 08/12 1633 Mannitol 12.5 GM ASDIR PRN 07/12 1645 AC IV 08/12 1633 Sodium Chloride 2,000 ML ASDIR PRN 07/12 1645 AC 07/14 IV 08/12 1633 0950 Sodium Chloride 5 ML ASDIR PRN 07/12 1645 AC IV 08/11 1644 Sodium Chloride 10 ML ASDIR PRN 07/12 1645 AC IV 08/11 1644 Sodium Chloride 250 ML ASDIR PRN 07/12 1645 AC IV 08/11 1644 24 hour I O ending at 0700: 07/17 0700 07/16 1900 Intake Total 500 Output Total 1200 Balance -1200 500 Intake, Oral 500 Output, 1200 Hemodialysis Vital Signs: Date Time Temp Pulse Resp B/P B/P Pulse O2 O2 Flow FiO2 Mean Ox Delivery Rate 07/17 1221 36.4 81 16 96/61 72.9 98 07/17 0833 36.8 82 14 97/60 72.7 95 07/17 0550 82 95/52 66 94 09/03 0300 93 14 82/46 61 96 09/03 0230 88 23 92/54 68 94 09/02 2330 103 30 113/62 80 99 09/02 2315 96 31 107/56 80 97 09/02 2100 96 23 112/61 81 99 09/02 2045 104 23 110/55 77 100 09/02 2038 107 19 115/56 81 100 09/02 2014 90 24 86/48 62 98 09/02 2014 36.3 92 21 96/58 98 Room air 09/1999 88 27 97/51 70 96 09/02 1845 103 38 93/49 69 96 09/02 1845 36.8 102 27 99/51 0.0 96 09/02 1830 99 40 99/51 73 96 09/02 1815 97 27 99/50 71 96 09/02 1800 96 37 106/52 75 96 09/02 1745 98 41 105/53 76 97 09/02 1730 97 23 107/56 80 96 09/02 1715 95 20 107/52 75 96 09/02 1700 92 25 113/57 82 97 09/02 1657 93 23 116/54 78 97 09/02 1645 87 22 115/58 83 99 09/02 1632 82 24 124/58 83 100 09/02 1630 36.8 81 22 111/53 98 Room air 09/02 1600 76 21 97 09/02 1520 36.8 80 14 114/54 0.0 96 Room air 09/02 1519 80 24 114/54 75 97 09/02 1500 77 20 97 09/02 1417 81 20 111/53 76 100 09/02 1400 79 20 97 09/02 1300 82 29 99 PATIENT WEIGHT: Weight (lb): 131Weight (oz): 6.33Weight (kg): 59.600 Physical ExamGeneral appearance: alert, awake, oriented, no acute distress, pleasantNeck: non-tender, no JVDCardiovascular: CV assessment: regular rate and rhythm Murmur assessment:heart murmurRespiratory: clear to auscultation, no distressAbdomen: soft, non-tender, normal bowel sounds, no distentionGenitourinary: no flank pain, no urinary catheterLower extremity: LE assessment: abnormal pedal pulse, abnormal peripheral pulseMusculoskeletal: normal inspectionNeuro/CREDENTIALS SPECIALIST: alert, oriented X 3, normal speechSkin: right heel ulcerUlcer: Type/cause: diabetic (right heel ulcer), arterialPsychiatry: normal affect, normal mood Diagnosis, Assessment PlanProblem List/A P: 1. HFrEF (heart failure with reduced ejection fraction) 2. Coronary artery disease 3. ESRD (end stage renal disease) on dialysis 4. Mitral regurgitation 5. PAD (peripheral artery disease) Consultants: cardiology, nephrology Free Text DxA P NotesFree Text DxA P Notes:68 YO female with MHx of IDDM on insulin pump, nonhealing foot ulcers, ESRD on HD MWF, recent diagnosis of severe cardiomyopathy, HFrEF with LVEF of 25% as well as severe MR. She had elective coronary and peripheral angiogram today, which revealed multivessel CAD and severe bilateral PAD. Vascular surgery and cardiothoracic surgery has been consulted. History provided by the patient and supplemented by king who is the MPOA. 1. Multivessel CAD* Aspirin, statin* extremely elevated STS risk score about 50%* nuclear viability study reviewed- acar at apex otherwise viable* CTA head, neck, abdomen, pelvis to evaluate subclavian artery, carotid arteries, mesenteric arteries reviewed 2. Severe PAD with nonhealing foot ulcers* Vascular surgery recommendation noted 3. Mitral regurgitation* moderate to severe MR on TTE with contrast* JULIA reviewed 4. Ischemic cardiomyopathy/HFrEF* volume management per HD* on midodrine d/t chronic hypotension* no ACEI or ARB d/t chronic hypotension requiring midodrine 5. ESRD - on HD* nephrology following 6. IDDM* per primary team Patient will be presented in the conference on Tuesday to decide on high risk revascularization (likely PCI) vs medical therapycontinue medical therapyon RA, vs stable MDM by Dr. Scott at 1240 at 7762 RPT #:[id number] OF REPORTPRProgress [id number]:44:00G.[id number] ailable for patient ubddCBPFLWELISHGUO0863-11-79K40:40:29 [facility] 2023-07-17 09:19:00 [id number] gxKRaP r+bzO48IKOB4WZiTWPJJId8pHwPs3Z3528-32-26X97:19 :00 [facility])Cardiothoracic Surgery ProgREPORT#:[id number] REPORT STATUS: SignedDATE:07/17/23 TIME: 918 PATIENT: JOSEPH ROWLEY UNIT #: [id number]#: [id number] [address] [birth year] AGE: 68 SEX: F ATTEND: Tanvir Prasad MDADM AUTHOR: Trudy Colindres Physic * ALL edits or amendments must be made on the electronic/computer document * SubjectiveChief complaint:CAD, eval for CABG PVD nonhealing lower extremity ulcers Patient resting comfortable. Review of SystemsConstitutional:Denies: fever, generalized weakness. Skin:Denies: rash, swelling. Allergy/Immun:Denies: itching, rhinorrhea. Eyes:Denies: itching, diplopia. Respiratory:Denies: VICENTE (dyspnea on exertion), hemoptysis. Cardiovascular:Denies: VICENTE (dyspnea on exertion), edema. GI:Denies: constipation, diarrhea. :Denies: dysuria, hematuria. Musculoskeletal:Denies: joint pain, joint swelling. Heme:Denies: bleeding, bruising. Endocrine:Denies: polydipsia, polyuria. Neuro:Denies: confusion, dizziness. All systems rev neg: except as marked Objective Physical ExamGeneral appearance: alert, awake, orientedHEENT: anicteric, mucosal membranes moistCardiovascular: BP/pulses equal bilat., regular rate rhythmRespiratory: aerating well, clear to auscultationAbdomen: soft, non-tenderExtremities: dry, moves allMusculoskeletal: full range of motion, painless range of motionNeuro/CREDENTIALS SPECIALIST: alert, oriented X 3Skin: dry, intactUlcer: Type/cause: diabetic (right heel ulcer), arterial Diagnosis, Assessment PlanHospital course to date: This is a very pleasant 68-year-old female with a past medical history of type 1diabetes from the age of 46 years old, end-stage renal disease, on dialysis sinceSept2021, hypertension who presented to her inventory management specialist for evaluation ofbilateral nonhealing ulcerations of her bilateral heels for the past 3 months, and shortness of breath with exertion. Her last echocardiogram was completed with her inventory management specialist showing an EF 20-25%with mild LVH, severe global hypokinesis, mildly dilated left atrium with moderate aortic sclerosis without stenosis, mitral valve leaflets mildly thickened with severe MR, mild to moderate TR, moderate pulmonary hypertension with an RV systolic pressure 62 mmHg. Patient underwent left heart catheterization today and was found to have severe three-vessel coronary artery disease, with severe bilateral occluded SFAs of thelower extremity. CV surgery consulted for evaluation for coronary artery bypass graft surgery Assessment/plan1. Severe three-vessel CAD2. Type I diabetic3. Severe peripheral vascular disease4. Nonhealing bilateral heel ulcerations5. Hypertension6. Hyperlipidemia7. CHF Documented EF 20-25% in the outpatient setting . Mitral valve regurgitation Noted to be severe on echocardiogram from March 2023 in the outpatient setting Patient with severe multivessel CAD. Patient will be worked up for CAD, Further recs to follow. Thank you for this consult. 07/12/23 Echo Left ventricle: The cavity size is normal. Wall thickness is normal. Systolic function is severely reduced. The estimated ejection fraction is 30-34%. Severe diffuse hypokinesis. Doppler parameters are consistent with restrictive physiology, indicative of decreased left ventricular diastolic compliance and/or increased left atrial pressure. Average global longitudinal strain is -5.7.2. Right ventricle: Systolic function is mildly to moderately reduced. Systolic pressure is severely increased.3. Left atrium: The atrium is dilated. The end-systolic volume index (A-L) is 50 ml/m 2.4. Mitral valve: The annulus is calcified. Prolapse cannot be excluded. There is moderate to severe regurgitation, directed posteriorly and along the left atrial wall. The effective regurgitant orifice (PISA) is 0.39 cm 2. The regurgitant volume (PISA) is 46 ml.5. Tricuspid valve: Estimated right ventricular systolic pressure is 76 mmHg. There is moderate-severe regurgitation directed toward the septum.6. Pericardium, extracardiac: There is a large left pleural effusion.7. Inferior vena cava: The vessel is dilated. The respirophasic diameter changes are blunted (< 50%). Inferior vena cava diameter measures 2.2 cm. 07/13/23Patinet resting comfortable, Denies any new complaints. On room air. Sinus rhythm. AAO x 3Cardiac workup still underway. CTA head, abdomena nd pelvis ordered by cardiology. Patient will be presented in the high risk cardiology conference. Further recs to follow. 07/14/23Patient resting comfortable,Denies chest painsComplains of bilateral heel ulcerationsSinus rhythmOn room airCarotid Doppler showed no carotid artery stenosisPatient is considered high risk due to multiple comorbidities, ESRD, CHF, DMPatient will be discussed in the high risk conferenceFurther recommendations toPatient was seen with Dr. Sousa 07/15/23Patient resting comfortableDenies complaints, denies chest painsRemains on room airSinus rhythmPatient underwent viability study today. Pending resultsOn dialysis, followed by renalPatient STS score estimated at 50%Further recommendations to follow 07/16/23Patient resting comfortable, denies chest painNo new complaintsRemains on room airSinus rhythmPending viability study results.Dialysis per renal.Patient will be discussed in the high risk conference next week. 07/17/23Patient resting comfortable, No complaints. Remains sinus rhythm. on room air. Viability study completed EF 28%Dialysis as per renalMedical management as per cardiologyPatient will be discussed in high risk conference next week. Consultants: cardiology, nephrology at 0922 at 1604 [facility] #:[id number] OF REPORTPRProgress [id number]:19:00G.[id number] ailable for patient pyhmIIFOLSAWYWGRNH7862-80-12V33:22:23 [facility] [place] 2023-07-16 19:07:00 [id number] pnZelK HNa13v+LIanvJjHLeODzTmqBa9+NmB9559-30-71Q62:07 :00 [facility] ([facility]Nephrology Progress NoteREPORT#:[id number] REPORT STATUS: SignedDATE:07/16/23 TIME: 190 PATIENT: JOSEPH ROWLEY UNIT #: [id number]#: [id number] ROOM/BED: [address]3356-1DOB: [birth year] AGE: 68 SEX: F ATTEND: Tanvir Prasad MDADM AUTHOR: Tomasa Feng MD * ALL edits or amendments must be made on the electronic/computer document * SubjectiveChief complaint:follow up of ESRD Review of SystemsConstitutional:Reports: generalized weakness. All systems rev neg: except as marked Objective GeneralVS/I O:Vital Signs: Date Time Temp Pulse Resp B/P B/P Pulse O2 O2 Flow FiO2 Mean Ox Delivery Rate 07/16 1845 98.2 102 27 99/51 0.0 96 09/02 1830 99 40 99/51 73 96 09/02 1815 97 27 99/50 71 96 09/02 1800 96 37 106/52 75 96 09/02 1745 98 41 105/53 76 97 09/02 1730 97 23 107/56 80 96 09/02 1715 95 20 107/52 75 96 09/02 1700 92 25 113/57 82 97 09/02 1657 93 23 116/54 78 97 09/02 1645 87 22 115/58 83 99 09/02 1632 82 24 124/58 83 100 09/02 1630 98.3 81 22 111/53 98 Room air 09/02 1600 76 21 97 09/02 1520 98.2 80 14 114/54 0.0 96 Room air 09/02 1519 80 24 114/54 75 97 09/02 1500 77 20 97 09/02 1417 81 20 111/53 76 100 09/02 1400 79 20 97 09/02 1300 82 29 99 09/02 1200 73 21 96 09/02 1127 97.9 75 14 104/52 0.0 97 Room air 09/02 1125 75 20 104/52 75 98 09/02 1100 74 20 95 09/02 1000 77 19 95 09/02 0929 99 Room air 09/02 0900 80 28 100 09/02 0800 77 26 99 09/02 0709 97.9 76 14 104/55 0.0 99 Room air 07/16 0708 76 26 104/55 77 99 07/16 0700 77 28 97 / 0512 97.7 84 13 116/57 76.9 98 Room air 07/16 0000 76 20 101/52 73 98 07/15 2339 98.1 77 13 101/51 0.0 99 Room air 07/15 2200 74 19 107/54 77 100 07/15 2014 72 111/51 74 100 07/15 24 hour I O ending at 0700: 07/16 0700 07/15 1900 Intake Total Output Total Balance Number 3 Bowel Movements Number Voids 1 Patient 59.6 kg 57.606 kg Weight PATIENT WEIGHT: Weight (lb): 131Weight (oz): 6.33Weight (kg): 59.600 MedicationsActive Meds + DC'd Last 24 HrsEpoetin Tanner-epbx (RETACRIT) 10,000 UNIT TuThSa@2100 IV Alteplase, Recombinant (CATHFLO ACTIVASE) 2 MG ONCE ONE IV-CATH (DC) Alteplase, Recombinant (CATHFLO ACTIVASE) 2 MG ONCE ONE IV-CATH (DC) Sterile Water (WATER FOR INJECTION) 2.2 ML ASDIR PRN IV Sterile Water (WATER FOR INJECTION) 2.2 ML ASDIR PRN IV Loperamide HCl (IMODIUM CAPSULE) 2 MG QID PRN PRN PO Benzocaine/Butamben/Tetracaine HCl (CETACAINE) 1 APPLIC ASDIR PRN MM (DC) Fentanyl Citrate (SUBLIMAZE) 100 MCG ASDIR PRN IV (DC) Flumazenil (ROMAZICON) 0.2 MG ASDIR PRN IV (DC) Midazolam HCl (VERSED) 2 MG ASDIR PRN IV (DC) Naloxone HCl (NARCAN) 0.4 MG ASDIR PRN IV (DC) Epoetin Tanner-epbx (RETACRIT) 4,000 UNIT TuThSa@2100 IV (DC) Ceftriaxone Sodium (ROCEPHIN 1000MG VIAL) 1,000 MG Q24H IV Sodium Chloride (SODIUM CHLORIDE) 10 MLAspirin (ASPIRIN) 81 MG DAILY PO Midodrine (PROAMATINE) 5 MG 0800,1200,1600 PO Acetaminophen (TYLENOL) 650 MG Q6H PRN PRN PO Atorvastatin Calcium (LIPITOR) 40 MG BEDTIME PO Albumin Human (ALBUMINAR-25%) 12.5 GM ASDIR PRN IV Heparin Sodium (Porcine) (HEPARIN SODIUM) 3,000 UNIT ASDIR PRN DIALYSIS Lidocaine HCl (LIDOCAINE HCL/PF) 0.5 ML ASDIR PRN I-DERMAL (CKD) Mannitol (Mannitol 20%) 12.5 GM ASDIR PRN IV Sodium Chloride (SODIUM CHLORIDE 0.9%) 2,000 ML ASDIR PRN IV Sodium Chloride (SODIUM CHLORIDE) 5 ML ASDIR PRN IV Sodium Chloride (SODIUM CHLORIDE) 10 ML ASDIR PRN IV Sodium Chloride (SODIUM CHLORIDE 0.9%) 250 ML ASDIR PRN IV Physical ExamGeneral appearance: alert, awake, orientedHead/eyes: atraumatic, normocephalic, PERRLAENT: moist mucous membranesNeck: no JVD, no lymphadenopathy, no masses or swellingCardiovascular: normal heart sounds, regular rate and rhythm, no murmur, no rubRespiratory: aerating well, clear to auscultation, normal breath sounds, no distressAbdomen: non-tender, normal bowel sounds, soft, no reboundGenitourinary: no bladder distention, no flank pain, no urinary catheterExtremities: no edema, no gangreneNeuro/CREDENTIALS SPECIALIST: alert, oriented X 3, CN II-XII intact, normal speechUlcer: Type/cause: diabetic (right heel ulcer), arterial ResultsFindings/Data:Laboratory Tests 07/16 0819 Chemistry POC Glucose (70 - 110 MG/DL) 226 H Microbiology Date/Time Procedure - Status Source Growth 07/16 0449 MSSA Surveillance Screen - COMP NASAL Diagnosis, Assessment PlanFree Text A P:1. ESRD continue with TTS dialysis this week and then switch her back to Tuesday next week. getting Hd todaycatheter did not work initially, had to place cathflo and working well now 2. Hypotension on midodrine 3. Coronary disease needs CABG which is planned for next week, CT surgery consulted, work-up in progress 4. Diabetes type 1 per primary team 5. Anemia of CKD on MATT as hemoglobin less than 10, increase to 10,000 unit 3 times a week Consultants: cardiology, nephrology at 1908 RPT #:[id number] OF REPORTPRProgress [id number]:07:00G.[id number] ailable for patient uckcXBMSXCREEBRGPA7780-69-83J44:09:12 [facility] 2023-07-16 15:25:00 [id number]+ubE pghaAY uXkYvZNWl8p+WUSTSwe5BVICSNP/z45017-49-12O36:25 :00 [facility] ([facility])Hospitalist Progress NoteREPORT#:[id number] REPORT STATUS: SignedDATE:07/16/23 TIME: 152 PATIENT: JOSEPH ROWLEY UNIT #: [id number]#: [id number] [address] [birth year] AGE: 68 SEX: F ATTEND: Tanvir Prasad AUTHOR: Tanvir Prasad MD * ALL edits or amendments must be made on the electronic/computer document * SubjectiveChief complaint:she is seen in the stress lab .no cp no sobHPI:Patient had a fever spike yesterday was started on empiric antibiotics with UA abnormal system of UTI she is less confused and more alert per patient/family atbedside Review of Systems Free Text ROS NotesFree Text ROS Notes:All 14 systems reviewed positive findings indicated above rest of the review systems negative Objective Physical ExamHead/Eyes: atraumatic, normal conjunctiva/sclera, normal eyelids/periorb.Neck: full range of motionCardiovascular: normal capillary refill, normal heart sounds, regular rate rhythmRespiratory: aerating well, clear to auscultation, symmetric expansion, no distressAbdomen: non-tender, normal bowel sounds, soft, no distentionNeuro/CREDENTIALS SPECIALIST: alert, oriented X 3Ulcer: Type/cause: diabetic (right heel ulcer), arterial Diagnosis, Assessment PlanConsultants: cardiology, nephrology Free Text DxA P NotesFree text DxA P notes:68-year-old female with a past medical history of type 1 diabetes from the age of 46 years old, end-stage renal disease, on dialysis since July 2022, hypertension who presented to her inventory management specialist for evaluation of bilateral nonhealing ulcerations of her bilateral heels for the past 3 months, and shortness of breath with exertion. Left heart catheterization showed significant for severe three-vessel coronary artery disease with severe bilateral occluded SFAs of the lower extremity. Issues as below. Suspected urinary tract infectionSevere three-vessel CADSevere peripheral vascular diseaseDiabetes mellitusEnd-stage renal failure on hemodialysis Nonhealing bilateral heel ulcerationsHypertensionHyperlipidemiaCHF Mitral valve regurgitation Plan and recommendations Patient admitted into medicineVital signs every 4PatientAntiplatelets and statin per cardiologySeen by vascular surgery" CT surgery. Nephrology for hemodialysis. Will do basic lab work include CBC BMP now. Patient is not having significant hypoxia at this timeDVT prophylaxisRestart home medicationsDiscussed management plan in detail with patient's family. 07/13/[address] surgery and vascular surgery plansHemodialysis was done yesterdayHemodialysis per nephrologyMonitor renal functionBlood sugar control with insulin pump. 07/14/2023 Fever spike last night blood cultures on empiric antibiotics for possible UTIAntibiotics changedFollow-up on culturesFollow-up on cardiothoracic surgery and oncology recommendations plan to have discussion tomorrowBlood sugars controlledLab work otherwise stableDVT prophylaxisHemodialysis per nephrology 07/15- take over care from another group -- review all lab and image -- she is seen in the stress test lab . no cp no sob -- urine culture --positive continue rocephin iv -- blood culture -- no grow -- stress test -- pending --continue HD as schedule 07/16 High revascularization risk, will be discussed on Tuesday in clinical conference, ejection fraction 28%, viable tissue except apical scar, continue with dialysis, severe peripheral artery disease with heel ulcers, mitral valve regurgitation. at 1821 [facility] #:[id number] OF REPORTPRProgress [id number]:25:00G.[id number] ailable for patient qnkoTAPBQCSNKJDRUA0501-48-68Q18:21:43 [facility] 2023-07-16 11:48:00 [id number] /1u4Sa osUmEu5ITV3x28/34ug/uDYVRJXSKU1696-33-96Y05:48 :00 [facility] ([facility])Cardiology Progress NoteREPORT#:[id number] REPORT STATUS: SignedDATE:07/16/23 TIME: 1148 PATIENT: JOSEPH ROWLEY UNIT #: [id number]#: [id number] [address] [birth year] AGE: 68 SEX: F ATTEND: Tanvir Prasad AUTHOR: Karmen Byrne [employer] * ALL edits or amendments must be made on the electronic/computer document * SubjectiveChief complaint:sleepingvs stable Objective GeneralVS/I O:Laboratory Tests 07/15/23 0352:[Embedded Image Not Available] 07/15/23 0351:[Embedded Image Not Available]Current Medications Sig/Stephan Start time Last Medication Dose Route Stop Time Status Admin Epoetin Tanner-epbx 10,000 UNIT TuThSa@2100 07/16 2100 AC IV 08/13 205 Loperamide HCl 2 MG QID PRN PRN 07/15 2315 AC 07/16 PO 08/14 2314 0701 Benzocaine/Butamben/ 0 .STK-MED ONE 07/15 1541 DC Tetracaine HCl MM Etomidate 0 .STK-MED ONE 07/15 1526 DC IV Lidocaine HCl 0 .STK-MED ONE 07/15 1526 DC .ROUTE Propofol 20 ML .STK-MED ONE 07/15 1526 DC IV Iopamidol 100 ML .STK-MED ONE 07/15 1310 DC 07/15 IV 07/15 1311 1310 Iopamidol 100 ML .STK-MED ONE 07/15 1308 DC 07/15 IV 07/15 1309 1308 Benzocaine/Butamben/ 1 APPLIC ASDIR PRN 07/15 0930 DC Tetracaine HCl MM 07/16 0921 Fentanyl Citrate 100 MCG ASDIR PRN 07/15 0930 DC IV 07/16 921 Flumazenil 0.2 MG ASDIR PRN 07/15 930 DC IV 07/16 921 Midazolam HCl 2 MG ASDIR PRN 07/15 930 DC IV 07/16 921 Naloxone HCl 0.4 MG ASDIR PRN 07/15 930 DC IV 07/16 921 Epoetin Tanner-epbx 4,000 UNIT TuThSa@2100 07/14 2100 DC 07/14 IV 07/16 2059 215 Ceftriaxone Sodium 1,000 MG Q24H 07/14 09 AC 07/16 Sodium Chloride 10 ML IV 07/19 0859 0850 Aspirin 81 MG DAILY 07/13 09 AC 07/16 PO 08/12 0859 0850 Midodrine 5 MG 0800,1200,1600 07/13 08 AC 07/16 PO 08/12 0759 0700 Acetaminophen 650 MG Q6H PRN PRN 07/13 0045 AC 07/13 PO 08/12 0044 0106 Atorvastatin Calcium 40 MG BEDTIME 07/12 2100 AC 07/15 PO 08/11 Albumin Human 12.5 GM ASDIR PRN 07/12 1645 AC IV 08/12 1633 Heparin Sodium 3,000 UNIT ASDIR PRN 07/12 1645 AC 07/14 (Porcine) DIALYSIS 08/11 1644 1320 Lidocaine HCl 0.5 ML ASDIR PRN 07/12 1645 CKD I-DERMAL 08/12 1633 Mannitol 12.5 GM ASDIR PRN 07/12 1645 AC IV 08/12 1633 Sodium Chloride 2,000 ML ASDIR PRN 07/12 1645 AC 07/14 IV 08/12 1633 0950 Sodium Chloride 5 ML ASDIR PRN 07/12 1645 AC IV 08/11 1644 Sodium Chloride 10 ML ASDIR PRN 07/12 1645 AC IV 08/11 1644 Sodium Chloride 250 ML ASDIR PRN 07/12 1645 AC IV 08/11 1644 24 hour I O ending at 0700: 07/16 0700 07/15 1900 Intake Total Output Total Balance Number 3 Bowel Movements Number Voids 1 Patient 59.6 kg 57.606 kg Weight Vital Signs: Date Time Temp Pulse Resp B/P B/P Pulse O2 O2 Flow FiO2 Mean Ox Delivery Rate 07/16 1127 36.6 75 14 104/52 0.0 97 Room air 07/16 0709 36.6 76 14 104/55 0.0 99 Room air 07/16 0512 36.5 84 13 116/57 76.9 98 Room air 07/16 0000 76 20 101/52 73 98 07/15 2339 36.7 77 13 101/51 0.0 99 Room air 07/15 2200 74 19 107/54 77 100 07/15 2014 72 111/51 74 100 07/15 2010 22 07/15 1837 36.6 84 13 109/54 0.0 100 Room air 07/15 1801 84 24 89/63 72 97 07/15 1744 83 26 138/55 79 99 07/15 1635 Nasal 5 cannula 07/15 1226 77 27 110/53 76 98 07/15 1151 83 25 112/53 76 99 PATIENT WEIGHT: Weight (lb): 131Weight (oz): 6.33Weight (kg): 59.600 Physical ExamGeneral appearance: sleeping comfortablyNeck: non-tender, no JVDCardiovascular: CV assessment: regular rate and rhythm Murmur assessment:heart murmurRespiratory: clear to auscultation, no distressAbdomen: soft, non-tender, normal bowel sounds, no distentionGenitourinary: no flank pain, no urinary catheterLower extremity: LE assessment: abnormal pedal pulse, abnormal peripheral pulseMusculoskeletal: normal inspectionNeuro/CREDENTIALS SPECIALIST: alert, oriented X 3, normal speechSkin: right heel ulcerUlcer: Type/cause: diabetic (right heel ulcer), arterialPsychiatry: normal affect, normal mood ResultsRadiology data:Recent Impressions:CAT SCAN - CTA ABD PEL W CONT 07/15 115 Report Impression - Status: SIGNED Entered: 07/15/20232200 IMPRESSION: 1. No evidence of aneurysm or dissection involving the thoracic orabdominal aorta.2. No evidence of carotid or subclavian stenosis.3. Occlusion of the bilateral external iliac arteries withreconstitution of common femoral arteries via collaterals as above.4. Cholelithiasis.Impression By: Neelam Mitchell M.D.CAT SCAN - CT ANGIO CHEST 07/15 115 Report Impression - Status: SIGNED Entered: 07/15/20232200 IMPRESSION: 1. No evidence of aneurysm or dissection involving the thoracic orabdominal aorta.2. No evidence of carotid or subclavian stenosis.3. Occlusion of the bilateral external iliac arteries withreconstitution of common femoral arteries via collaterals as above.4. Cholelithiasis.Impression By: Neelam Mitchell M.D.CAT SCAN - CTA HEAD 07/15 1157 Report Impression - Status: SIGNED Entered: 07/15/20232058 IMPRESSION: 1. Multiple filling defects in the right M1 segment suspicious forthrombus. These are of uncertain chronicity. Correlate with symptomsand consider further evaluation with conventional angiogram and MRI ofthe brain.2. No evidence of carotid stenosis.Impression By: Neelam Mitchell M.D.CAT SCAN - CT ANGIO NECK 07/15 1157 Report Impression - Status: SIGNED Entered: 07/15/20232058 IMPRESSION: 1. Multiple filling defects in the right M1 segment suspicious forthrombus. These are of uncertain chronicity. Correlate with symptomsand consider further evaluation with conventional angiogram and MRI ofthe brain.2. No evidence of carotid stenosis.Impression By: Neelam Mitchell M.D. Diagnosis, Assessment PlanProblem List/A P: 1. HFrEF (heart failure with reduced ejection fraction) 2. Coronary artery disease 3. ESRD (end stage renal disease) on dialysis 4. Mitral regurgitation 5. PAD (peripheral artery disease) Consultants: cardiology, nephrology Free Text DxA P NotesFree Text DxA P Notes:68 YO female with MHx of IDDM on insulin pump, nonhealing foot ulcers, ESRD on HD MWF, recent diagnosis of severe cardiomyopathy, HFrEF with LVEF of 25% as well as severe MR. She had elective coronary and peripheral angiogram today, which revealed multivessel CAD and severe bilateral PAD. Vascular surgery and cardiothoracic surgery has been consulted. History provided by the patient and supplemented by niece who is the MPOA. 1. Multivessel CAD* Aspirin, statin* extremely elevated STS risk score about 50%* nuclear viability study reviewed- acar at apex otherwise viable* CTA head, neck, abdomen, pelvis to evaluate subclavian artery, carotid arteries, mesenteric arteries reviewed 2. Severe PAD with nonhealing foot ulcers* Vascular surgery recommendation noted 3. Mitral regurgitation* moderate to severe MR on TTE with contrast* JULIA reviewed 4. Ischemic cardiomyopathy/HFrEF* volume management per HD* on midodrine d/t chronic hypotension* no ACEI or ARB d/t chronic hypotension requiring midodrine 5. ESRD - on HD* nephrology following 6. IDDM* per primary team Patient will be presented in the conference on Tuesday to decide on high risk revascularization (likely PCI) vs medical therapycontinue medical therapy MDM by Dr. Scott at 1340 at 1850 RPT #:[id number] OF REPORTPRProgress [id number]:48:00G.[id number] ailable for patient ouazLLYYNYDTVKMGFV9740-94-58A65:41:17 [facility] 2023-07-16 09:49:00 [id number] [facility]/ /Lntjy0/ba2TA8+I03CSHiCCeueUNT0082-55-65S21:49 :00 [facility] ProgREPORT#:[id number] REPORT STATUS: SignedDATE:07/16/23 TIME: 09 PATIENT: JOSEPH ROWLEY UNIT #: [id number]#: [id number] [address] [birth year] AGE: 68 SEX: F ATTEND: Tanvir Prasad AUTHOR: Trudy Colindres Physic * ALL edits or amendments must be made on the electronic/computer document * SubjectiveChief complaint:CAD, eval for CABGPVD nonhealing lower extremity ulcersPatient resting comfortable. Review of SystemsConstitutional:Denies: fever, generalized weakness. Skin:Denies: rash, swelling. Allergy/Immun:Denies: itching, rhinorrhea. Eyes:Denies: itching, diplopia. Respiratory:Denies: VICENTE (dyspnea on exertion), hemoptysis. Cardiovascular:Denies: VICENTE (dyspnea on exertion), edema. GI:Denies: constipation, diarrhea. :Denies: dysuria, hematuria. Musculoskeletal:Denies: joint pain, joint swelling. Heme:Denies: bleeding, bruising. Endocrine:Denies: polydipsia, polyuria. Neuro:Denies: confusion, dizziness. All systems rev neg: except as marked Objective GeneralVS/I OLast Documented: Result Date Time Pulse Ox 99 07/16 709 B/P 104/55 07/16 709 B/P Mean 0.0 07/16 709 O2 Delivery Room air 07/16 709 Temp 97.9 07/16 07 Pulse 76 07/16 07 Resp 14 07/16 709 O2 Flow Rate 5 07/15 1635 24 hour I O ending at 0700: 07/16 0700 07/15 1900 Intake Total Output Total Balance Number 3 Bowel Movements Number Voids 1 Patient 59.6 kg 57.606 kg Weight PATIENT WEIGHT: Weight (lb): 131Weight (oz): 6.33Weight (kg): 59.600 Physical ExamGeneral appearance: alert, awake, orientedHEENT: anicteric, mucosal membranes moistCardiovascular: BP/pulses equal bilat., regular rate rhythmRespiratory: aerating well, clear to auscultationAbdomen: soft, non-tenderExtremities: dry, moves allMusculoskeletal: full range of motion, painless range of motionNeuro/CREDENTIALS SPECIALIST: alert, oriented X 3Skin: dry, intactUlcer: Type/cause: diabetic (right heel ulcer), arterial Diagnosis, Assessment PlanHospital course to date: This is a very pleasant 68-year-old female with a past medical history of type 1diabetes from the age of 46 years old, end-stage renal disease, on dialysis sinceSept2021, hypertension who presented to her inventory management specialist for evaluation ofbilateral nonhealing ulcerations of her bilateral heels for the past 3 months, and shortness of breath with exertion. Her last echocardiogram was completed with her inventory management specialist showing an EF 20-25%with mild LVH, severe global hypokinesis, mildly dilated left atrium with moderate aortic sclerosis without stenosis, mitral valve leaflets mildly thickened with severe MR, mild to moderate TR, moderate pulmonary hypertension with an RV systolic pressure 62 mmHg. Patient underwent left heart catheterization today and was found to have severe three-vessel coronary artery disease, with severe bilateral occluded SFAs of thelower extremity. CV surgery consulted for evaluation for coronary artery bypass graft surgery Assessment/plan1. Severe three-vessel CAD2. Type I diabetic3. Severe peripheral vascular disease4. Nonhealing bilateral heel ulcerations5. Hypertension6. Hyperlipidemia7. CHF Documented EF 20-25% in the outpatient setting . Mitral valve regurgitation Noted to be severe on echocardiogram from March 2023 in the outpatient setting Patient with severe multivessel CAD. Patient will be worked up for CAD, Further recs to follow. Thank you for this consult. 07/12/23 Echo Left ventricle: The cavity size is normal. Wall thickness is normal. Systolic function is severely reduced. The estimated ejection fraction is 30-34%. Severe diffuse hypokinesis. Doppler parameters are consistent with restrictive physiology, indicative of decreased left ventricular diastolic compliance and/or increased left atrial pressure. Average global longitudinal strain is -5.7.2. Right ventricle: Systolic function is mildly to moderately reduced. Systolic pressure is severely increased.3. Left atrium: The atrium is dilated. The end-systolic volume index (A-L) is 50 ml/m 2.4. Mitral valve: The annulus is calcified. Prolapse cannot be excluded. There is moderate to severe regurgitation, directed posteriorly and along the left atrial wall. The effective regurgitant orifice (PISA) is 0.39 cm 2. The regurgitant volume (PISA) is 46 ml.5. Tricuspid valve: Estimated right ventricular systolic pressure is 76 mmHg. There is moderate-severe regurgitation directed toward the septum.6. Pericardium, extracardiac: There is a large left pleural effusion.7. Inferior vena cava: The vessel is dilated. The respirophasic diameter changes are blunted (< 50%). Inferior vena cava diameter measures 2.2 cm. 07/13/23Patinet resting comfortable, Denies any new complaints. On room air. Sinus rhythm. AAO x 3Cardiac workup still underway. CTA head, abdomena nd pelvis ordered by cardiology. Patient will be presented in the high risk cardiology conference. Further recs to follow. 07/14/23Patient resting comfortable,Denies chest painsComplains of bilateral heel ulcerationsSinus rhythmOn room airCarotid Doppler showed no carotid artery stenosisPatient is considered high risk due to multiple comorbidities, ESRD, CHF, DMPatient will be discussed in the high risk conferenceFurther recommendations toPatient was seen with Dr. Sousa 07/15/23Patient resting comfortableDenies complaints, denies chest painsRemains on room airSinus rhythmPatient underwent viability study today. Pending resultsOn dialysis, followed by renalPatient STS score estimated at 50%Further recommendations to follow 07/16/23Patient resting comfortable, denies chest painNo new complaintsRemains on room airSinus rhythmPending viability study results.Dialysis per renal.Patient will be discussed in the high risk conference next week. Consultants: cardiology, nephrology at 0951 at 1604 RPT #:[id number] OF REPORTPRProgress kslm9664-67-67R60:49:00G.[id number] ailable for patient bzlcSUZTWUBWMHDYQU6093-03-04W42:51:22 [facility] 2023-07-16 07:37:00 [id number]/NSan +ASjvA AAzcVIJP+HhQT7viBI4EJw31kn9yv82944-31-59M55:37 :[id number] [place] [address] PATIENT NAME: JOSEPH ROWLEY ADMIT DATE: 07/12/23ACCOUNT NO: [id number] ROOM NO: G.3356 AGE: 68 REPORT TYPE: eNUCLEAR CARDIOLOGY REPORT SEX: F ADMITTING PHYSICIAN:Tanvir Prasad MD ATTENDING PHYSICIAN:Tanvir Prasad MD *[facility] and [facility]pee[address] [place], [place] [address]Phone: Myocardial Viability Imaging Viability Nitroglycerin Imaging Patient: Joseph Rowley Study Date: 07/15/2023 Height: /URN: Weight: /: 1955 Location: [facility] BMI/BSA:Age: 68 F Account#: *Interpreting Physician: Kimberly Shin MD Indications: CHF. Conclusions Summary: Absent uptake at the apix consistent with scar otherwiseviable myocardium. Study data: Nuclear components: Viability Nitroglycerin Imaging.Consent: The risks, benefits, and alternatives to the procedure wereexplained to the patient and informed consent was obtained. Procedure data: Initial setup. The patient was brought to thelaboratory. A baseline ECG was recorded. Intravenous access wasobtained. ECG and blood pressure measurements were monitored.Nitroglygerin 0.8 mg IV given for Viability study Isotope administration:PATIENT NAME: JOSEPH ROWLEY + + +*Stage *Rest *+ + +*Agent *Tc-99m *+ + +*Injected dose *30 mCi *+ + +*Date *07/15/2023*+ + +*Inject ion time*09:59 AM *+ + +*Route *IV *+ + +*Imaging time *10:02 AM *+ + + Image properties: Gated imaging was performed. Myocardial perfusion imaging: The summed perfusion score measured 11at rest.Rest: LV regional perfusion: Moderately reduced perfusion of theapical anterior, apical inferior, mid inferolateral, apical lateral, andapical myocardium; mildly reduced perfusion of the basal inferolateralmyocardium. Perfusion score: 11. Vascular region quantitation: +----+ + + +------- -----+* *LAD extent*LCx extent*RCA extent*Total extent*+----+ + + + +*Rest*34 *50 *6 *31 *+----+ + + +------ ------+ Gated SPECT: The left ventricular end-diastolic volume is 129 ml. Theleft ventricular end-systolic volume is 93 ml. The cardiac output is 2.8L/min. The calculated left ventricular ejection fraction is 28%. Thecalculated resting left ventricular ejection fraction is 28 %. Prepared and electronically signed by: Kimberly Pak MD07/16/2023 07:37 at 0737 PATIENT NAME: JOSEPH ROWLEY :3 7:00G.[id number] for patient ccwdOTPFMVMYBJGVDL6156-65-88I87:37:37 [facility] 2023-07-16 07:35:00 [id number] gIMx3D XO8pcIw9edkbPtftN3Br/62PnRzK7k0698-76-88I65:35 :[id number] [place] [id number] PATIENT NAME: JOSEPH ROWLEY ADMIT DATE: 07/12/23ACCOUNT NO: [id number] ROOM NO: G.3356 AGE: 68 REPORT TYPE: eTRANSESOPHAGEAL ECHO REPORT SEX: F ADMITTING PHYSICIAN:Tanvir Prasad MD ATTENDING PHYSICIAN:Tanvir Prasad MD *[address] [address]Mxboj: [phone]: [phone] Transesophageal Echocardiogram Patient: Laura Rowley Date: 07/15/2023 BP: 117 / 58 Location: [place]LURN: [id number] : 1955 Age: 68 Height: 56 in / 142.2 cmAccession#: [id number] Gender: F Weight: 126.7 lb / 57.6 kgBMI/BSA: 28.5 kg/m 2 / 1.46 m 2 *Ordering Physician: * Kimberly Pak MD *Interpreting Physician: * Kimberly Pak MD*Vice President And Portfolio Manager: * Sulma Parada Indications: MR, TR. Study data: Consent: The risks, benefits, and alternatives to theprocedure were explained to the patient and informed consent wasobtained. Procedure: Initial setup: The patient was brought to thelaboratory in the fasting state.Intravenous access was obtained. SurfaceECG leads and pulse oximetric signals were monitored. Sedation. Moderatesedation was administered by cardiology staff. Transesophagealechocardiography was performed. Topical anesthesia was obtained usingbenzocaine spray. A transesophageal probe (SN: [id number]) was inserted bythe attending inventory management specialist without difficulty. Patient status:Inpatient. Patient room number: CVPREP 11. Study status: Routine.Study completion: The patient tolerated the procedure well. There wereno complications. FindingsPATIENT NAME: JOSEPH ROWLEY Left ventricle: The cavity size is normal. Wall thickness is normal.Systolic function is severely reduced. The estimated ejection fractionis <20%. Severe diffuse hypokinesis.Right ventricle: The cavity size is normal. Systolic function is mildlyto moderately reduced. Systolic pressure is severely increased.Estimated TAPSE is 1.1 cm.Left atrium: The atrium is dilated.Right atrium: The atrium is severely dilated.Aorta: Aortic root: The aortic root is normal in size.Aortic valve: The valve is structurally normal. The valve istrileaflet. There is no evidence of stenosis. There is noregurgitation.Mitral valve: The annulus is calcified. There is no evidence ofstenosis. There is moderate to severe regurgitation, directedposteriorly and along the left atrial wall. Likely underestimated asblood pressure was low 70s systolic and very low ejection fraction.Tricuspid valve: The valve is structurally normal. Estimated rightventricular systolic pressure is 76 mmHg. There is wide-openregurgitation directed toward the septum.Pulmonic valve: The valve is structurally normal. There is noregurgitation.Pericardium: There is no pericardial effusion. Measurements Mitral valve Value 07/13/2023 MR peak v 3.19 m/sec 4.54 ERO, PISA 0.24 cm 2 0.39 MR vol, PISA 23 ml 46 Conclusions Summary: 1. Left ventricle: The cavity size is normal. Wall thickness is normal. Systolic function is severely reduced. The estimated ejection fraction is <20%. Severe diffuse hypokinesis.2. Right ventricle: Systolic function is mildly to moderately reduced. Systolic pressure is severely increased.3. Left atrium: The atrium is dilated.4. Right atrium: The atrium is severely dilated.5. Mitral valve: The annulus is calcified. There is moderate to severe regurgitation, directed posteriorly and along the left atrial wall. Likely underestimated as blood pressure was low 70s systolic and very low ejection fraction.6. Tricuspid valve: There is wide-open regurgitation directed toward the septum. Prepared and electronically signed by PATIENT NAME: JOSEPH ROWLEY Kimberly Pak MD07/16/2023 07:34 at 0735 PATIENT NAME: JOSEPH ROWLEY [id number]:35:00G.[id number] Available for patient xspkXGUQSRDYGXXBPS1150-94-93X21:35:27 [facility] 2023-07-15 14:56:00 [id number] jYenrS ARcYqR2iy1jgFdLVIoWVkX613drHTb5385-08-98H71:56 :00 [facility] Progress NoteREPORT#:[id number] REPORT STATUS: SignedDATE:07/15/23 TIME: 1455 PATIENT: JOSEPH ROWLEY UNIT #: [id number]#: [id number] ROOM[facility]BED: [facility]DOB: [birth year] AGE: 68 SEX: F ATTEND: Tanvir Prasad AUTHOR: Winnie Noyola MD * ALL edits or amendments must be made on the electronic/computer document * SubjectiveComments:JULIA today Objective GeneralVS/I O:Vital Signs: Date Time Temp Pulse Resp B/P B/P Pulse O2 O2 Flow FiO2 Mean Ox Delivery Rate 07/15 1151 83 25 112/53 76 99 07/15 0713 91 26 109/59 79 95 07/15 0713 98.4 91 14 109/59 0.0 95 Room air 07/15 0458 98.2 79 13 114/57 0.0 97 Room air 07/15 0400 86 20 128/62 87 99 07/15 0300 81 24 122/58 83 98 07/15 0200 79 21 137/63 90 97 07/15 0100 76 22 122/59 85 98 / 0000 73 22 121/60 86 97 07/14 2310 98.1 75 13 106/54 0.0 97 Room air 07/14 2300 71 22 106/54 76 97 07/14 2200 75 26 101/58 74 97 07/14 2100 76 25 109/56 79 98 07/14 2000 80 26 112/55 79 96 07/14 1922 99.0 90 13 104/55 0.0 97 Room air 07/14 1900 79 28 104/55 76 96 07/14 1711 99.5 85 18 118/59 0.0 98 Room air 24 hour I O ending at 0700: 07/15 0700 07/14 1900 Intake Total 630.00 Output Total 2350 Balance -1720.00 Intake, IV 30.00 Intake, Oral 600 Number 0 Bowel Movements Output, 2000 Hemodialysis Output, Urine 350 Patient 57.8 kg Weight PATIENT WEIGHT: Weight (lb): 127Weight (oz): 6.83Weight (kg): 57.606 MedicationsActive Meds + DC'd Last 24 HrsIopamidol (ISOVUE-300 100ML) 100 ML .STK-MED ONE IV (DC) Iopamidol (ISOVUE-370 100ML) 100 ML .STK-MED ONE IV (DC) Benzocaine/Butamben/Tetracaine HCl (CETACAINE) 1 APPLIC ASDIR PRN MM (CKD) Fentanyl Citrate (SUBLIMAZE) 100 MCG ASDIR PRN IV Flumazenil (ROMAZICON) 0.2 MG ASDIR PRN IV Midazolam HCl (VERSED) 2 MG ASDIR PRN IV Naloxone HCl (NARCAN) 0.4 MG ASDIR PRN IV Nitroglycerin (NITROSTAT) 0 .STK-MED ONE SL (DC) Epoetin Tanner-epbx (RETACRIT) 4,000 UNIT TuThSa@2100 IV Ceftriaxone Sodium (ROCEPHIN 1000MG VIAL) 1,000 MG Q24H IV Sodium Chloride (SODIUM CHLORIDE) 10 MLAspirin (ASPIRIN) 81 MG DAILY PO Midodrine (PROAMATINE) 5 MG 0800,1200,1600 PO Acetaminophen (TYLENOL) 650 MG Q6H PRN PRN PO Atorvastatin Calcium (LIPITOR) 40 MG BEDTIME PO Albumin Human (ALBUMINAR-25%) 12.5 GM ASDIR PRN IV Heparin Sodium (Porcine) (HEPARIN SODIUM) 3,000 UNIT ASDIR PRN DIALYSIS Lidocaine HCl (LIDOCAINE HCL/PF) 0.5 ML ASDIR PRN I-DERMAL (CKD) Mannitol (Mannitol 20%) 12.5 GM ASDIR PRN IV Sodium Chloride (SODIUM CHLORIDE 0.9%) 2,000 ML ASDIR PRN IV Sodium Chloride (SODIUM CHLORIDE) 5 ML ASDIR PRN IV Sodium Chloride (SODIUM CHLORIDE) 10 ML ASDIR PRN IV Sodium Chloride (SODIUM CHLORIDE 0.9%) 250 ML ASDIR PRN IV Physical ExamGeneral appearance: alert, awakeHead/eyes: atraumatic, normocephalic, PERRLANeck: no JVD, no lymphadenopathy, no masses or swellingCardiovascular: normal heart sounds, regular rate and rhythm, no murmur, no rubRespiratory: aerating well, clear to auscultation, normal breath sounds, no distressAbdomen: non-tender, normal bowel sounds, soft, no reboundGenitourinary: no bladder distention, no flank pain, no urinary catheterExtremities: no edema, no gangreneNeuro/CREDENTIALS SPECIALIST: alert, oriented X 3, CN II-XII intact, normal speechUlcer: Type/cause: diabetic (right heel ulcer), arterial ResultsFindings/Data:Laboratory Tests 07/15 0352 Chemistry Sodium (134 - 147 mEq/L) 135 Potassium (3.4 - 5.0 mEq/L) 3.5 Chloride (100 - 108 mEq/L) 98 L Carbon Dioxide (21 - 33 mEq/l) 28 Anion Gap (0 - 20) 13 BUN (7 - 25 mg/dL) 23 Creatinine (0.6 - 1.3 mg/dL) 2.9 H Glomerular Filtr Rate (80 - 90) 17.3 L Glucose (77 - 141 mg/dL) 82 Calcium (8.0 - 10.5 mg/dL) 9.3 Magnesium (1.6 - 2.6 mg/dL) 2.09 Laboratory Tests 07/15 0351 Hematology WBC (4.5 - 11.0 x10 3/uL) 10.8 RBC (3.54 - 5.02 x10 6/uL) 2.69 L Hgb (11.0 - 15.0 g/dL) 8.9 L Hct (33.0 - 45.0 %) 28.5 L MCV (81.0 - 99.0 fL) 105.9 H MCH (27.0 - 33.0 pg) 33.1 H MCHC (33.0 - 37.0 g/dL) 31.2 L RDW (11.5 - 14.5 %) 17.0 H Plt Count (150 - 400 x10 3/uL) 337 MPV (7.0 - 9.0 fL) 11.4 H Neut % (Auto) (56.0 - 77.0 %) 71.8 Lymph % (Auto) (14.0 - 32.0 %) 13.7 L [place] % (Auto) (4.8 - 9.0 %) 13.4 H Eos % (Auto) (0.3 - 3.7 %) 0.5 Baso % (Auto) (0.0 - 2.0 %) 0.2 Neut # (Auto) (2.0 - 7.6 x10 3/uL) 7.79 H Lymph # (Auto) (1.0 - 3.8 x10 3/uL) 1.48 [place] # (Auto) (0.1 - 0.8 x10 3/uL) 1.45 H Eos # (Auto) (0.0 - 0.2 x10 3/uL) 0.05 Baso # (Auto) (0.0 - 0.2 x10 3/uL) 0.02 Abs Immat Gran (auto) (0.00 - 0.03 x10 3/uL) 0.04 H Add Manual Diff NO Immature Gran % (0.0 - 2.0 %) 0.4 Nucleated RBC % (0 - 0 %) 0.0 Nucleated RBCs # (Man) (0.0 - 0.1 x10 3/uL) 0.00 Diagnosis, Assessment PlanFree Text A P:1. ESRD continue with TTS dialysis this week and then switch her back to Tuesday next week. HD in a.m. 2. Hypotension on midodrine 3. Coronary disease needs CABG which is planned for next week, CT surgery consulted, work-up in progress 4. Diabetes type 1 per primary team 5. Anemia of CKD on MATT as hemoglobin less than 10, increase to 10,000 unit 3 times a week Discussed with at bedside at 1823 RPT #:[id number] OF REPORTPRProgress [id number]:56:00G.[id number] ailable for patient umquOLXGHOHCBGPPEO6085-70-83V63:23:53 [facility] [place] 2023-07-15 14:51:00 [id number] W+BT0J z8qOqwQKkgJVZrWIudVQ/u+E5kVc8S1131-30-40T32:51 :00 [facility] Progress NoteREPORT#:[id number] REPORT STATUS: SignedDATE:07/15/23 TIME: 1450 PATIENT: JOSEPH ROWLEY UNIT #: [id number]#: [id number] [address] [birth year] AGE: 68 SEX: F ATTEND: Tanvir Prasad MDADM AUTHOR: Winnie Noyola MD * ALL edits or amendments must be made on the electronic/computer document * See AddendumObjective GeneralVS/I O:Vital Signs: Date Time Temp Pulse Resp B/P B/P Pulse O2 O2 Flow FiO2 Mean Ox Delivery Rate 07/15 1151 83 25 112/53 76 99 07/15 0713 91 26 109/59 79 95 07/15 0713 98.4 91 14 109/59 0.0 95 Room air 07/15 0458 98.2 79 13 114/57 0.0 97 Room air 07/15 0400 86 20 128/62 87 99 07/15 0300 81 24 122/58 83 98 07/15 0200 79 21 137/63 90 97 07/15 0100 76 22 122/59 85 98 07/15 0000 73 22 121/60 86 97 07/14 2310 98.1 75 13 106/54 0.0 97 Room air 07/14 2300 71 22 106/54 76 97 07/14 2200 75 26 101/58 74 97 07/14 2100 76 25 109/56 79 98 07/14 2000 80 26 112/55 79 96 07/14 1922 99.0 90 13 104/55 0.0 97 Room air 07/14 1900 79 28 104/55 76 96 07/14 1711 99.5 85 18 118/59 0.0 98 Room air 24 hour I O ending at 0700: 07/15 0700 07/14 1900 Intake Total 630.00 Output Total 2350 Balance -1720.00 Intake, IV 30.00 Intake, Oral 600 Number 0 Bowel Movements Output, 2000 Hemodialysis Output, Urine 350 Patient 57.8 kg Weight PATIENT WEIGHT: Weight (lb): 127Weight (oz): 6.83Weight (kg): 57.606 MedicationsActive Meds + DC'd Last 24 HrsIopamidol (ISOVUE-300 100ML) 100 ML .STK-MED ONE IV (DC) Iopamidol (ISOVUE-370 100ML) 100 ML .STK-MED ONE IV (DC) Benzocaine/Butamben/Tetracaine HCl (CETACAINE) 1 APPLIC ASDIR PRN MM (CKD) Fentanyl Citrate (SUBLIMAZE) 100 MCG ASDIR PRN IV Flumazenil (ROMAZICON) 0.2 MG ASDIR PRN IV Midazolam HCl (VERSED) 2 MG ASDIR PRN IV Naloxone HCl (NARCAN) 0.4 MG ASDIR PRN IV Nitroglycerin (NITROSTAT) 0 .STK-MED ONE SL (DC) Epoetin Tanner-epbx (RETACRIT) 4,000 UNIT TuTa@2100 IV Ceftriaxone Sodium (ROCEPHIN 1000MG VIAL) 1,000 MG Q24H IV Sodium Chloride (SODIUM CHLORIDE) 10 MLAspirin (ASPIRIN) 81 MG DAILY PO Midodrine (PROAMATINE) 5 MG 0800,1200,1600 PO Acetaminophen (TYLENOL) 650 MG Q6H PRN PRN PO Atorvastatin Calcium (LIPITOR) 40 MG BEDTIME PO Albumin Human (ALBUMINAR-25%) 12.5 GM ASDIR PRN IV Heparin Sodium (Porcine) (HEPARIN SODIUM) 3,000 UNIT ASDIR PRN DIALYSIS Lidocaine HCl (LIDOCAINE HCL/PF) 0.5 ML ASDIR PRN I-DERMAL (CKD) Mannitol (Mannitol 20%) 12.5 GM ASDIR PRN IV Sodium Chloride (SODIUM CHLORIDE 0.9%) 2,000 ML ASDIR PRN IV Sodium Chloride (SODIUM CHLORIDE) 5 ML ASDIR PRN IV Sodium Chloride (SODIUM CHLORIDE) 10 ML ASDIR PRN IV Sodium Chloride (SODIUM CHLORIDE 0.9%) 250 ML ASDIR PRN IV Physical ExamHead/eyes: atraumatic, normocephalic, PERRLANeck: no JVD, no lymphadenopathy, no masses or swellingCardiovascular: normal heart sounds, regular rate and rhythm, no murmur, no rubRespiratory: aerating well, clear to auscultation, normal breath sounds, no distressAbdomen: non-tender, normal bowel sounds, soft, no reboundGenitourinary: no bladder distention, no flank pain, no urinary catheterExtremities: pitting edema, no gangreneNeuro/CREDENTIALS SPECIALIST: alert, oriented X 3, CN II-XII intact, normal speechUlcer: Type/cause: diabetic (right heel ulcer), arterial ResultsFindings/Data:Laboratory Tests 07/15 0352 Chemistry Sodium (134 - 147 mEq/L) 135 Potassium (3.4 - 5.0 mEq/L) 3.5 Chloride (100 - 108 mEq/L) 98 L Carbon Dioxide (21 - 33 mEq/l) 28 Anion Gap (0 - 20) 13 BUN (7 - 25 mg/dL) 23 Creatinine (0.6 - 1.3 mg/dL) 2.9 H Glomerular Filtr Rate (80 - 90) 17.3 L Glucose (77 - 141 mg/dL) 82 Calcium (8.0 - 10.5 mg/dL) 9.3 Magnesium (1.6 - 2.6 mg/dL) 2.09 Laboratory Tests 07/15 0351 Hematology WBC (4.5 - 11.0 x10 3/uL) 10.8 RBC (3.54 - 5.02 x10 6/uL) 2.69 L Hgb (11.0 - 15.0 g/dL) 8.9 L Hct (33.0 - 45.0 %) 28.5 L MCV (81.0 - 99.0 fL) 105.9 H MCH (27.0 - 33.0 pg) 33.1 H MCHC (33.0 - 37.0 g/dL) 31.2 L RDW (11.5 - 14.5 %) 17.0 H Plt Count (150 - 400 x10 3/uL) 337 MPV (7.0 - 9.0 fL) 11.4 H Neut % (Auto) (56.0 - 77.0 %) 71.8 Lymph % (Auto) (14.0 - 32.0 %) 13.7 L [place] % (Auto) (4.8 - 9.0 %) 13.4 H Eos % (Auto) (0.3 - 3.7 %) 0.5 Baso % (Auto) (0.0 - 2.0 %) 0.2 Neut # (Auto) (2.0 - 7.6 x10 3/uL) 7.79 H Lymph # (Auto) (1.0 - 3.8 x10 3/uL) 1.48 [place] # (Auto) (0.1 - 0.8 x10 3/uL) 1.45 H Eos # (Auto) (0.0 - 0.2 x10 3/uL) 0.05 Baso # (Auto) (0.0 - 0.2 x10 3/uL) 0.02 Abs Immat Gran (auto) (0.00 - 0.03 x10 3/uL) 0.04 H Add Manual Diff NO Immature Gran % (0.0 - 2.0 %) 0.4 Nucleated RBC % (0 - 0 %) 0.0 Nucleated RBCs # (Man) (0.0 - 0.1 x10 3/uL) 0.00 Diagnosis, Assessment PlanFree Text A P:1. ESRD continue with TTS dialysis this week and then switch her back to Tuesday next week. HD today 2. Hypotension restart midodrine tonight 3. Coronary disease needs CABG, CT surgery consulted 4. Diabetes type 1 per primary team 5. Anemia of CKD check lab and on ESAas hemoglobin less than 106. Hyponatremia UF with HD as tolerated Discussed with at bedside at 1455 Addendum 1: 07/15/23 1455 by Winnie Noyola MD at 1455 Addendum 2: 07/15/23 1455 by Winnie Noyola MD pls disregard this note at 1455 RPT #:[id number] OF REPORTPRProgress [id number]:51:00G.[id number] ailable for patient fusnPHVEBIQOUSASGJ2556-05-40I78:56:04 [facility] [place] 2023-07-15 12:01:00 [id number]/cxBBEkF4 tMoVDw 5atSDJLCoqgiATdJxTi06zphW9XKqa1998-54-78Q32:01 :00 [facility])Cardiothoracic Surgery ProgREPORT#:[id number] REPORT STATUS: SignedDATE:07/15/23 TIME: 1201 PATIENT: JOSEPH ROWLEY UNIT #: [id number]#: [id number] [address] [birth year] AGE: 68 SEX: F ATTEND: Tanvir Prasad AUTHOR: Trudy Colindres Physic * ALL edits or amendments must be made on the electronic/computer document * SubjectiveChief complaint:CAD, PVD nonhealing lower extremity ulcers Patient resting comfortable. Review of SystemsConstitutional:Denies: fever, generalized weakness. Skin:Denies: rash, swelling. Allergy/Immun:Denies: itching, rhinorrhea. Eyes:Denies: itching, diplopia. Respiratory:Denies: VICENTE (dyspnea on exertion), hemoptysis. Cardiovascular:Denies: VICENTE (dyspnea on exertion), edema. GI:Denies: constipation, diarrhea. :Denies: dysuria, hematuria. Musculoskeletal:Denies: joint pain, joint swelling. Heme:Denies: bleeding, bruising. Endocrine:Denies: polydipsia, polyuria. Neuro:Denies: confusion, dizziness. All systems rev neg: except as marked Objective GeneralVS/I OLast Documented: Result Date Time Pulse Ox 95 07/15 713 B/P 109/59 07/15 713 B/P Mean 79 07/15 713 Pulse 91 07/15 713 Resp 26 07/15 713 O2 Delivery Room air 07/15 713 Temp 98.4 07/15 713 24 hour I O ending at 0700: 07/15 0700 07/14 1900 Intake Total 630.00 Output Total 2350 Balance -1720.00 Intake, IV 30.00 Intake, Oral 600 Number 0 Bowel Movements Output, 2000 Hemodialysis Output, Urine 350 Patient 57.8 kg Weight PATIENT WEIGHT: Weight (lb): 127Weight (oz): 6.83Weight (kg): 57.800 Physical ExamGeneral appearance: alert, awake, orientedHEENT: anicteric, mucosal membranes moistCardiovascular: BP/pulses equal bilat., regular rate rhythmRespiratory: aerating well, clear to auscultationAbdomen: soft, non-tenderExtremities: dry, moves allMusculoskeletal: full range of motion, painless range of motionNeuro/CREDENTIALS SPECIALIST: alert, oriented X 3Skin: dry, intactUlcer: Type/cause: diabetic (right heel ulcer), arterial Diagnosis, Assessment PlanHospital course to date: This is a very pleasant 68-year-old female with a past medical history of type 1diabetes from the age of 46 years old, end-stage renal disease, on dialysis sinceSeptember 2021, hypertension who presented to her inventory management specialist for evaluation ofbilateral nonhealing ulcerations of her bilateral heels for the past 3 months, and shortness of breath with exertion. Her last echocardiogram was completed with her inventory management specialist showing an EF 20-25%with mild LVH, severe global hypokinesis, mildly dilated left atrium with moderate aortic sclerosis without stenosis, mitral valve leaflets mildly thickened with severe MR, mild to moderate TR, moderate pulmonary hypertension with an RV systolic pressure 62 mmHg. Patient underwent left heart catheterization today and was found to have severe three-vessel coronary artery disease, with severe bilateral occluded SFAs of thelower extremity. CV surgery consulted for evaluation for coronary artery bypass graft surgery Assessment/plan1. Severe three-vessel CAD2. Type I diabetic3. Severe peripheral vascular disease4. Nonhealing bilateral heel ulcerations5. Hypertension6. Hyperlipidemia7. CHF Documented EF 20-25% in the outpatient setting . Mitral valve regurgitation Noted to be severe on echocardiogram from March 2023 in the outpatient setting Patient with severe multivessel CAD. Patient will be worked up for CAD, Further recs to follow. Thank you for this consult. 07/12/23 Echo Left ventricle: The cavity size is normal. Wall thickness is normal. Systolic function is severely reduced. The estimated ejection fraction is 30-34%. Severe diffuse hypokinesis. Doppler parameters are consistent with restrictive physiology, indicative of decreased left ventricular diastolic compliance and/or increased left atrial pressure. Average global longitudinal strain is -5.7.2. Right ventricle: Systolic function is mildly to moderately reduced. Systolic pressure is severely increased.3. Left atrium: The atrium is dilated. The end-systolic volume index (A-L) is 50 ml/m 2.4. Mitral valve: The annulus is calcified. Prolapse cannot be excluded. There is moderate to severe regurgitation, directed posteriorly and along the left atrial wall. The effective regurgitant orifice (PISA) is 0.39 cm 2. The regurgitant volume (PISA) is 46 ml.5. Tricuspid valve: Estimated right ventricular systolic pressure is 76 mmHg. There is moderate-severe regurgitation directed toward the septum.6. Pericardium, extracardiac: There is a large left pleural effusion.7. Inferior vena cava: The vessel is dilated. The respirophasic diameter changes are blunted (< 50%). Inferior vena cava diameter measures 2.2 cm. 07/13/23Patinet resting comfortable, Denies any new complaints. On room air. Sinus rhythm. AAO x 3Cardiac workup still underway. CTA head, abdomena nd pelvis ordered by cardiology. Patient will be presented in the high risk cardiology conference. Further recs to follow. 07/14/23Patient resting comfortable,Denies chest painsComplains of bilateral heel ulcerationsSinus rhythmOn room airCarotid Doppler showed no carotid artery stenosisPatient is considered high risk due to multiple comorbidities, ESRD, CHF, DMPatient will be discussed in the high risk conferenceFurther recommendations toPatient was seen with Dr. Sousa 07/15/23Patient resting comfortableDenies complaints, denies chest painsRemains on room airSinus rhythmPatient underwent viability study today. Pending resultsOn dialysis, followed by renalPatient STS score estimated at 50%Further recommendations to follow at 1204 at 1603 RPT #:[id number] OF REPORTPRProgress [id number]:01:00G.[id number] ailable for patient gtoqBIIWYZFJPNMXQP1588-47-40Y29:04:32 [facility] [place] 2023-07-15 11:49:00 [id number] NTN8Vv [id number]527-90-12F50:49 :00 [facility]Hospital[facility] Progress NoteREPORT#:[id number] REPORT STATUS: SignedDATE:07/15/23 TIME: 1149 PATIENT: JOSEPH ROWLEY UNIT #: [id number]#: [id number] [address] [birth year] AGE: 68 SEX: F ATTEND: Tanvir Prasad AUTHOR: Violetta Davis MD * ALL edits or amendments must be made on the electronic/computer document * SubjectiveChief complaint:she is seen in the stress lab .no cp no sob HPI:Patient had a fever spike yesterday was started on empiric antibiotics with UA abnormal system of UTI she is less confused and more alert per patient/family atbedside Review of SystemsConstitutional:Reports: fever, generalized weakness. All systems rev neg: except as noted Free Text ROS NotesFree Text ROS Notes:All 14 systems reviewed positive findings indicated above rest of the review systems negative Objective GeneralVS/I O:Vital Signs: Date Time Temp Pulse Resp B/P B/P Pulse O2 O2 Flow FiO2 Mean Ox Delivery Rate 07/15 713 91 26 109/59 79 95 07/15 0713 36.9 91 14 109/59 0.0 95 Room air 07/15 0458 36.8 79 13 114/57 0.0 97 Room air 07/15 0400 86 20 128/62 87 99 07/15 0300 81 24 122/58 83 98 07/15 0200 79 21 137/63 90 97 07/15 0100 76 22 122/59 85 98 07/15 0000 73 22 121/60 86 97 07/14 2310 36.7 75 13 106/54 0.0 97 Room air 07/14 2300 71 22 106/54 76 97 07/14 2200 75 26 101/58 74 97 07/14 2100 76 25 109/56 79 98 07/14 2000 80 26 112/55 79 96 07/14 1922 37.2 90 13 104/55 0.0 97 Room air 07/14 1900 79 28 104/55 76 96 07/14 1711 37.5 85 18 118/59 0.0 98 Room air 07/14 1247 36.8 92 19 117/53 0.0 100 Room air 24 hour I O ending at 0700: 07/15 0700 07/14 1900 Intake Total 630.00 Output Total 2350 Balance -1720.00 Intake, IV 30.00 Intake, Oral 600 Number 0 Bowel Movements Output, 2000 Hemodialysis Output, Urine 350 Patient 57.8 kg Weight PATIENT WEIGHT: Weight (lb): 127Weight (oz): 6.83Weight (kg): 57.800 Medications:Active Meds + DC'd Last 24 HrsBenzocaine/Butamben/Tetracaine HCl (CETACAINE) 1 APPLIC ASDIR PRN MM (CKD) Fentanyl Citrate (SUBLIMAZE) 100 MCG ASDIR PRN IV Flumazenil (ROMAZICON) 0.2 MG ASDIR PRN IV Midazolam HCl (VERSED) 2 MG ASDIR PRN IV Naloxone HCl (NARCAN) 0.4 MG ASDIR PRN IV Nitroglycerin (NITROSTAT) 0 .STK-MED ONE SL (DC) Epoetin Tanner-epbx (RETACRIT) 4,000 UNIT TuThSa@2100 IV Ceftriaxone Sodium (ROCEPHIN 1000MG VIAL) 1,000 MG Q24H IV Sodium Chloride (SODIUM CHLORIDE) 10 MLAspirin (ASPIRIN) 81 MG DAILY PO Midodrine (PROAMATINE) 5 MG 0800,1200,1600 PO Acetaminophen (TYLENOL) 650 MG Q6H PRN PRN PO Atorvastatin Calcium (LIPITOR) 40 MG BEDTIME PO Albumin Human (ALBUMINAR-25%) 12.5 GM ASDIR PRN IV Heparin Sodium (Porcine) (HEPARIN SODIUM) 3,000 UNIT ASDIR PRN DIALYSIS Lidocaine HCl (LIDOCAINE HCL/PF) 0.5 ML ASDIR PRN I-DERMAL (CKD) Mannitol (Mannitol 20%) 12.5 GM ASDIR PRN IV Sodium Chloride (SODIUM CHLORIDE 0.9%) 2,000 ML ASDIR PRN IV Sodium Chloride (SODIUM CHLORIDE) 5 ML ASDIR PRN IV Sodium Chloride (SODIUM CHLORIDE) 10 ML ASDIR PRN IV Sodium Chloride (SODIUM CHLORIDE 0.9%) 250 ML ASDIR PRN IV Physical ExamGeneral appearance: alert, awake, orientedHead/Eyes: atraumatic, normal conjunctiva/sclera, normal eyelids/periorb.Neck: full range of motionCardiovascular: normal capillary refill, normal heart sounds, regular rate rhythmRespiratory: aerating well, clear to auscultation, symmetric expansion, no distressAbdomen: non-tender, normal bowel sounds, soft, no distentionNeuro/CREDENTIALS SPECIALIST: alert, oriented X 3Ulcer: Type/cause: diabetic (right heel ulcer), arterial ResultsFindings/Data:Laboratory Tests 07/15 035 Chemistry Sodium (134 - 147 mEq/L) 135 Potassium (3.4 - 5.0 mEq/L) 3.5 Chloride (100 - 108 mEq/L) 98 L Carbon Dioxide (21 - 33 mEq/l) 28 Anion Gap (0 - 20) 13 BUN (7 - 25 mg/dL) 23 Creatinine (0.6 - 1.3 mg/dL) 2.9 H Glomerular Filtr Rate (80 - 90) 17.3 L Glucose (77 - 141 mg/dL) 82 Calcium (8.0 - 10.5 mg/dL) 9.3 Magnesium (1.6 - 2.6 mg/dL) 2.09 Laboratory Tests 07/15 0351 Hematology WBC (4.5 - 11.0 x10 3/uL) 10.8 RBC (3.54 - 5.02 x10 6/uL) 2.69 L Hgb (11.0 - 15.0 g/dL) 8.9 L Hct (33.0 - 45.0 %) 28.5 L MCV (81.0 - 99.0 fL) 105.9 H MCH (27.0 - 33.0 pg) 33.1 H MCHC (33.0 - 37.0 g/dL) 31.2 L RDW (11.5 - 14.5 %) 17.0 H Plt Count (150 - 400 x10 3/uL) 337 MPV (7.0 - 9.0 fL) 11.4 H Neut % (Auto) (56.0 - 77.0 %) 71.8 Lymph % (Auto) (14.0 - 32.0 %) 13.7 L [place] % (Auto) (4.8 - 9.0 %) 13.4 H Eos % (Auto) (0.3 - 3.7 %) 0.5 Baso % (Auto) (0.0 - 2.0 %) 0.2 Neut # (Auto) (2.0 - 7.6 x10 3/uL) 7.79 H Lymph # (Auto) (1.0 - 3.8 x10 3/uL) 1.48 [place] # (Auto) (0.1 - 0.8 x10 3/uL) 1.45 H Eos # (Auto) (0.0 - 0.2 x10 3/uL) 0.05 Baso # (Auto) (0.0 - 0.2 x10 3/uL) 0.02 Abs Immat Gran (auto) (0.00 - 0.03 x10 3/uL) 0.04 H Add Manual Diff NO Immature Gran % (0.0 - 2.0 %) 0.4 Nucleated RBC % (0 - 0 %) 0.0 Nucleated RBCs # (Man) (0.0 - 0.1 x10 3/uL) 0.00 Diagnosis, Assessment PlanConsultants: cardiology, nephrology Free Text DxA P NotesFree text DxA P notes:68-year-old female with a past medical history of type 1 diabetes from the age of 46 years old, end-stage renal disease, on dialysis since July 2022, hypertension who presented to her inventory management specialist for evaluation of bilateral nonhealing ulcerations of her bilateral heels for the past 3 months, and shortness of breath with exertion. Left heart catheterization showed significant for severe three-vessel coronary artery disease with severe bilateral occluded SFAs of the lower extremity. Issues as below. Suspected urinary tract infectionSevere three-vessel CADSevere peripheral vascular diseaseDiabetes mellitusEnd-stage renal failure on hemodialysis Nonhealing bilateral heel ulcerationsHypertensionHyperlipidemiaCHF Mitral valve regurgitation Plan plan and recommendations Patient admitted into medicineVital signs every 4PatientAntiplatelets and statin per cardiologySeen by vascular surgery" CT surgery. Nephrology for hemodialysis. Will do basic lab work include CBC BMP now. Patient is not having significant hypoxia at this timeDVT prophylaxisRestart home medicationsDiscussed management plan in detail with patient's family. 07/13/[address] surgery and vascular surgery plansHemodialysis was done yesterdayHemodialysis per nephrologyMonitor renal functionBlood sugar control with insulin pump. 07/14/2023 Fever spike last night blood cultures on empiric antibiotics for possible UTIAntibiotics changedFollow-up on culturesFollow-up on cardiothoracic surgery and oncology recommendations plan to have discussion tomorrowBlood sugars controlledLab work otherwise stableDVT prophylaxisHemodialysis per nephrology 07/15- take over care from another group -- review all lab and image -- she is seen in the stress test lab . no cp no sob -- urine culture --positive continue rocephin iv -- blood culture -- no grow -- stress test -- pending --continue HD as schedule at 1622 RPT #:[id number] OF REPORTPRProgress [id number]:49:00G.[id number] ailable for patient szalKJIRTNUUUWLTQB4280-47-14Y31:22:48 [facility] 2023-07-15 09:57:00 [id number] 3mPbth FnwmXwkI7gRo0SxF2kP3j4MO2ghidC9418-07-44F15:57 :00 [facility] ([facility])Cardiology Progress NoteREPORT#:[id number] REPORT STATUS: SignedDATE:07/15/23 TIME: 956 PATIENT: JOSEPH ROWLEY UNIT #: [id number]#: [id number] [address] [birth year] AGE: 68 SEX: F ATTEND: Tanvir Prasad AUTHOR: Yue Barragan AGACNP * ALL edits or amendments must be made on the electronic/computer document * Yue Barragan 07/15/23 0957:SubjectivePatient reports:No: complaints. Objective GeneralVS/I O:24 hour I O ending at 0700: 07/15 0700 07/14 1900 Intake Total 630.00 Output Total 2350 Balance -1720.00 Intake, IV 30.00 Intake, Oral 600 Number 0 Bowel Movements Output, 2000 Hemodialysis Output, Urine 350 Patient 57.8 kg Weight Vital Signs: Date Time Temp Pulse Resp B/P B/P Pulse O2 O2 Flow FiO2 Mean Ox Delivery Rate 07/15 0713 36.9 91 14 109/59 0.0 95 Room air 07/15 0458 36.8 79 13 114/57 0.0 97 Room air 07/15 0400 86 20 128/62 87 99 07/15 0300 81 24 122/58 83 98 07/15 0200 79 21 137/63 90 97 07/15 0100 76 22 122/59 85 98 07/15 0000 73 22 121/60 86 97 07/14 2310 36.7 75 13 106/54 0.0 97 Room air 07/14 2300 71 22 106/54 76 97 07/14 2200 75 26 101/58 74 97 07/14 2100 76 25 109/56 79 98 07/14 2000 80 26 112/55 79 96 07/14 1922 37.2 90 13 104/55 0.0 97 Room air 07/14 1900 79 28 104/55 76 96 07/14 1711 37.5 85 18 118/59 0.0 98 Room air 07/14 1247 36.8 92 19 117/53 0.0 100 Room air 07/14 1022 36.6 84 18 120/70 100 Room air PATIENT WEIGHT: Weight (lb): 127Weight (oz): 6.83Weight (kg): 57.800 Medications:Active Meds + DC'd Last 24 HrsBenzocaine/Butamben/Tetracaine HCl (CETACAINE) 1 APPLIC ASDIR PRN MM (CKD) Fentanyl Citrate (SUBLIMAZE) 100 MCG ASDIR PRN IV Flumazenil (ROMAZICON) 0.2 MG ASDIR PRN IV Midazolam HCl (VERSED) 2 MG ASDIR PRN IV Naloxone HCl (NARCAN) 0.4 MG ASDIR PRN IV Nitroglycerin (NITROSTAT) 0 .STK-MED ONE SL (DC) Epoetin Tanner-epbx (RETACRIT) 4,000 UNIT TuThSa@2100 IV Ceftriaxone Sodium (ROCEPHIN 1000MG VIAL) 1,000 MG Q24H IV Sodium Chloride (SODIUM CHLORIDE) 10 MLAspirin (ASPIRIN) 81 MG DAILY PO Midodrine (PROAMATINE) 5 MG 0800,1200,1600 PO Acetaminophen (TYLENOL) 650 MG Q6H PRN PRN PO Atorvastatin Calcium (LIPITOR) 40 MG BEDTIME PO Albumin Human (ALBUMINAR-25%) 12.5 GM ASDIR PRN IV Heparin Sodium (Porcine) (HEPARIN SODIUM) 3,000 UNIT ASDIR PRN DIALYSIS Lidocaine HCl (LIDOCAINE HCL/PF) 0.5 ML ASDIR PRN I-DERMAL (CKD) Mannitol (Mannitol 20%) 12.5 GM ASDIR PRN IV Sodium Chloride (SODIUM CHLORIDE 0.9%) 2,000 ML ASDIR PRN IV Sodium Chloride (SODIUM CHLORIDE) 5 ML ASDIR PRN IV Sodium Chloride (SODIUM CHLORIDE) 10 ML ASDIR PRN IV Sodium Chloride (SODIUM CHLORIDE 0.9%) 250 ML ASDIR PRN IV Physical ExamGeneral appearance: alert, awake, oriented, no acute distress, pleasantNeck: non-tender, no JVDCardiovascular: CV assessment: regular rate and rhythm Murmur assessment:heart murmurRespiratory: clear to auscultation, no distressAbdomen: soft, non-tender, normal bowel sounds, no distentionGenitourinary: no flank pain, no urinary catheterLower extremity: LE assessment: abnormal pedal pulse, abnormal peripheral pulseMusculoskeletal: normal inspectionNeuro/CREDENTIALS SPECIALIST: alert, oriented X 3, normal speechSkin: right heel ulcerUlcer: Type/cause: diabetic (right heel ulcer), arterialPsychiatry: normal affect, normal mood ResultsFindings/Data:Laboratory Tests 07/15 352 Chemistry Sodium (134 - 147 mEq/L) 135 Potassium (3.4 - 5.0 mEq/L) 3.5 Chloride (100 - 108 mEq/L) 98 L Carbon Dioxide (21 - 33 mEq/l) 28 Anion Gap (0 - 20) 13 BUN (7 - 25 mg/dL) 23 Creatinine (0.6 - 1.3 mg/dL) 2.9 H Glomerular Filtr Rate (80 - 90) 17.3 L Glucose (77 - 141 mg/dL) 82 Calcium (8.0 - 10.5 mg/dL) 9.3 Magnesium (1.6 - 2.6 mg/dL) 2.09 Laboratory Tests 07/15 351 Hematology WBC (4.5 - 11.0 x10 3/uL) 10.8 RBC (3.54 - 5.02 x10 6/uL) 2.69 L Hgb (11.0 - 15.0 g/dL) 8.9 L Hct (33.0 - 45.0 %) 28.5 L MCV (81.0 - 99.0 fL) 105.9 H MCH (27.0 - 33.0 pg) 33.1 H MCHC (33.0 - 37.0 g/dL) 31.2 L RDW (11.5 - 14.5 %) 17.0 H Plt Count (150 - 400 x10 3/uL) 337 MPV (7.0 - 9.0 fL) 11.4 H Neut % (Auto) (56.0 - 77.0 %) 71.8 Lymph % (Auto) (14.0 - 32.0 %) 13.7 L [place] % (Auto) (4.8 - 9.0 %) 13.4 H Eos % (Auto) (0.3 - 3.7 %) 0.5 Baso % (Auto) (0.0 - 2.0 %) 0.2 Neut # (Auto) (2.0 - 7.6 x10 3/uL) 7.79 H Lymph # (Auto) (1.0 - 3.8 x10 3/uL) 1.48 [place] # (Auto) (0.1 - 0.8 x10 3/uL) 1.45 H Eos # (Auto) (0.0 - 0.2 x10 3/uL) 0.05 Baso # (Auto) (0.0 - 0.2 x10 3/uL) 0.02 Abs Immat Gran (auto) (0.00 - 0.03 x10 3/uL) 0.04 H Add Manual Diff NO Immature Gran % (0.0 - 2.0 %) 0.4 Nucleated RBC % (0 - 0 %) 0.0 Nucleated RBCs # (Man) (0.0 - 0.1 x10 3/uL) 0.00 Laboratory Tests 07/15 0352 Chemistry Magnesium (1.6 - 2.6 mg/dL) 2.09 Results: labs reviewed, vital signs reviewed, rhythm personally rev'dTelemetry Interpretation:sinus rhythmEcho results:Summary: 1. Left ventricle: The cavity size is normal. Wall thickness is normal. Systolic function is severely reduced. The estimated ejection fraction is 30-34%. Severe diffuse hypokinesis. Doppler parameters are consistent with restrictive physiology, indicative of decreased left ventricular diastolic compliance and/or increased left atrial pressure. Average global longitudinal strain is -5.7.2. Right ventricle: Systolic function is mildly to moderately reduced. Systolic pressure is severely increased.3. Left atrium: The atrium is dilated. The end-systolic volume index (A-L) is 50 ml/m 2.4. Mitral valve: The annulus is calcified. Prolapse cannot be excluded. There is moderate to severe regurgitation, directed posteriorly and along the left atrial wall. The effective regurgitant orifice (PISA) is 0.39 cm 2. The regurgitant volume (PISA) is 46 ml.5. Tricuspid valve: Estimated right ventricular systolic pressure is 76 mmHg. There is moderate-severe regurgitation directed toward the septum.6. Pericardium, extracardiac: There is a large left pleural effusion.7. Inferior vena cava: The vessel is dilated. The respirophasic diameter changes are blunted (< 50%). Inferior vena cava diameter measures 2.2 cm. Diagnosis, Assessment PlanPlan discussed with: patient, collaborating , nurse Free Text DxA P NotesFree Text DxA P Notes:68 YO female with MHx of IDDM on insulin pump, nonhealing foot ulcers, ESRD on HD MWF, recent diagnosis of severe cardiomyopathy, HFrEF with LVEF of 25% as well as severe MR. She had elective coronary and peripheral angiogram today, which revealed multivessel CAD and severe bilateral PAD. Vascular surgery and cardiothoracic surgery has been consulted. History provided by the patient and supplemented by king who is the MPOA. 1. Multivessel CAD* CTS workup onging for possible CABG plus MVR* Aspirin, statin* extremely elevated STS risk score about 50%* nuclear viability study today* CTA head, neck, abdomen, pelvis to evaluate subclavian artery, carotid arteries, mesenteric arteries pending 2. Severe PAD with nonhealing foot ulcers* Vascular surgery recommendation noted 3. Mitral regurgitation* moderate to severe MR on TTE with contrast* JULIA today* keep NPO 4. Ischemic cardiomyopathy/HFrEF* volume management per HD* on midodrine d/t chronic hypotension* no ACEI or ARB d/t chronic hypotension requiring midodrine 5. ESRD - on HD* nephrology following 6. IDDM* per primary team Workup ongoing for CABG with MVR which is unlikely vs high risk PCI. MDM by Dr. Pak. Kimberly Pak 07/15/23 1704:Attestations Physician AttestationAgree w/findings plan:I have seen and examined the pt, I Agree with the findings and plan as documented by Yue Barragan. JULIA done today and showed moderate MR however less likely severe MR and the severity is underestimated due to low EF, and low blood pressure at the time of the JULIA her systolic was in the 70s at the time of JULIA. She has severe tricuspid regurgitation. Patient with multiple comorbidities including severe peripheral arterial disease with occluded iliac and common femoral arteries bilaterally, severe carotid disease severely reduced ejection fraction. Patientnot a good candidate surgically and high risk for PCI. We will discuss the caseon Tuesday morning and decide for high risk revascularization likely PCI versus medical therapy. Medical therapy is not ideal as the patient has 3 admissions over the last 9 months with very poor functional status at home. at 1148 at 1706 RPT #:[id number] OF REPORTPRProgress [id number]:57:00G.[id number] ailable for patient adsuVNHXZPZIWAMXZC1101-47-17N81:48:59 [facility] [place] 2023-07-14 14:01:00 [id number]/+74vEp9/[place] Qa27q/ MrUF1IIcdfdfcI5A32ecqGh4eJd4+C6860-87-74T59:01 :00 [facility] ProgREPORT#:[id number] REPORT STATUS: SignedDATE:07/14/23 TIME: 1401 PATIENT: JOSEPH ROWLEY UNIT #: [id number]#: [id number] [address] [birth year] AGE: 68 SEX: F ATTEND: Tanvir Prasad [facility] AUTHOR: Trudy Colindres Physic * ALL edits or amendments must be made on the electronic/computer document * SubjectiveChief complaint:CAD, PVD nonhealing lower extremity ulcers Patient resting comfortable. Review of SystemsConstitutional:Denies: fever, generalized weakness. Skin:Denies: rash, swelling. Allergy/Immun:Denies: itching, rhinorrhea. Eyes:Denies: itching, diplopia. Respiratory:Denies: VICENTE (dyspnea on exertion), hemoptysis. Cardiovascular:Denies: VICENTE (dyspnea on exertion), edema. GI:Denies: constipation, diarrhea. :Denies: dysuria, hematuria. Musculoskeletal:Denies: joint pain, joint swelling. Heme:Denies: bleeding, bruising. Endocrine:Denies: polydipsia, polyuria. Neuro:Denies: confusion, dizziness. All systems rev neg: except as marked Objective GeneralVS/I OLast Documented: Result Date Time Pulse Ox 100 07/14 1247 B/P 117/53 07/14 1247 B/P Mean 0.0 07/14 124 O2 Delivery Room air 07/14 124 Temp 98.2 07/14 124 Pulse 92 07/14 124 Resp 19 07/14 124 24 hour I O ending at 0700: 07/14 0700 07/13 1900 Intake Total 740.00 Output Total 200 280 Balance -200 460.00 Intake, IV 140.00 Intake, Oral 600 Number 0 Bowel Movements Number Voids 3 Output, Urine 200 280 Patient 58.1 kg Weight Weight Standing scale Measurement Method PATIENT WEIGHT: Weight (lb): 128Weight (oz): 1.42Weight (kg): 58.100 Physical ExamGeneral appearance: alert, awake, orientedHEENT: anicteric, mucosal membranes moistCardiovascular: BP/pulses equal bilat., regular rate rhythmRespiratory: aerating well, clear to auscultationAbdomen: soft, non-tenderExtremities: dry, moves allMusculoskeletal: full range of motion, painless range of motionNeuro/CREDENTIALS SPECIALIST: alert, oriented X 3Skin: dry, intactUlcer: Type/cause: diabetic (right heel ulcer), arterial Diagnosis, Assessment PlanHospital course to date: This is a very pleasant 68-year-old female with a past medical history of type 1diabetes from the age of 46 years old, end-stage renal disease, on dialysis sinceSeptember 2021, hypertension who presented to her inventory management specialist for evaluation ofbilateral nonhealing ulcerations of her bilateral heels for the past 3 months, and shortness of breath with exertion. Her last echocardiogram was completed with her inventory management specialist showing an EF 20-25%with mild LVH, severe global hypokinesis, mildly dilated left atrium with moderate aortic sclerosis without stenosis, mitral valve leaflets mildly thickened with severe MR, mild to moderate TR, moderate pulmonary hypertension with an RV systolic pressure 62 mmHg. Patient underwent left heart catheterization today and was found to have severe three-vessel coronary artery disease, with severe bilateral occluded SFAs of thelower extremity. CV surgery consulted for evaluation for coronary artery bypass graft surgery Assessment/plan1. Severe three-vessel CAD2. Type I diabetic3. Severe peripheral vascular disease4. Nonhealing bilateral heel ulcerations5. Hypertension6. Hyperlipidemia7. CHF Documented EF 20-25% in the outpatient setting . Mitral valve regurgitation Noted to be severe on echocardiogram from March 2023 in the outpatient setting Patient with severe multivessel CAD. Patient will be worked up for CAD, Further recs to follow. Thank you for this consult. 07/12/23 Echo Left ventricle: The cavity size is normal. Wall thickness is normal. Systolic function is severely reduced. The estimated ejection fraction is 30-34%. Severe diffuse hypokinesis. Doppler parameters are consistent with restrictive physiology, indicative of decreased left ventricular diastolic compliance and/or increased left atrial pressure. Average global longitudinal strain is -5.7.2. Right ventricle: Systolic function is mildly to moderately reduced. Systolic pressure is severely increased.3. Left atrium: The atrium is dilated. The end-systolic volume index (A-L) is 50 ml/m 2.4. Mitral valve: The annulus is calcified. Prolapse cannot be excluded. There is moderate to severe regurgitation, directed posteriorly and along the left atrial wall. The effective regurgitant orifice (PISA) is 0.39 cm 2. The regurgitant volume (PISA) is 46 ml.5. Tricuspid valve: Estimated right ventricular systolic pressure is 76 mmHg. There is moderate-severe regurgitation directed toward the septum.6. Pericardium, extracardiac: There is a large left pleural effusion.7. Inferior vena cava: The vessel is dilated. The respirophasic diameter changes are blunted (< 50%). Inferior vena cava diameter measures 2.2 cm. 07/13/23Patinet resting comfortable, Denies any new complaints. On room air. Sinus rhythm. AAO x 3Cardiac workup still underway. CTA head, abdomena nd pelvis ordered by cardiology. Patient will be presented in the high risk cardiology conference. Further recs to follow. 07/14/23Patient resting comfortable,Denies chest painsComplains of bilateral heel ulcerationsSinus rhythmOn room airCarotid Doppler showed no carotid artery stenosisPatient is considered high risk due to multiple comorbidities, ESRD, CHF, DMPatient will be discussed in the high risk conferenceFurther recommendations toPatient was seen with Dr. Sousa at 1403 at 1603 RPT #:[id number] OF REPORTPRProgress [id number]:01:00G.[id number] ailable for patient ohncFJSJNNZIJLBALK8703-08-24S92:04:00 [facility] 2023-07-14 10:11:00 [id number] KIEoPA C4qgdAW/lIV0hi+S4hJZ2K765TgUa08732-39-27H84:11 :00 [facility]oHospital[facility] Progress NoteREPORT#:[id number] REPORT STATUS: SignedDATE:07/14/23 TIME: 1011 PATIENT: JOSEPH ROWLEY UNIT #: [id number]#: [id number] [address] [birth year] AGE: 68 SEX: F ATTEND: Cinthya Leiva MDA AUTHOR: Cinthya Leiva MD * ALL edits or amendments must be made on the electronic/computer document * SubjectiveChief complaint:CADHPI:Patient had a fever spike yesterday was started on empiric antibiotics with UA abnormal system of UTI she is less confused and more alert per patient/family atbedside Review of SystemsAll systems rev neg: except as noted Free Text ROS NotesFree Text ROS Notes:All 14 systems reviewed positive findings indicated above rest of the review systems negative Objective GeneralVS/I O:Vital Signs: Date Time Temp Pulse Resp B/P B/P Pulse O2 O2 Flow FiO2 Mean Ox Delivery Rate 07/14 0916 37.0 74 18 82/45 57.5 97 Room air 07/14 0432 36.9 81 14 112/53 0.0 97 Room air 07/14 0038 37.4 82 14 126/47 0.0 98 Room air 07/13 2200 80 24 121/58 84 96 07/133 83 24 128/59 85 99 07/13 2024 86 24 134/60 87 97 07/13 1938 36.8 91 14 131/58 0.0 99 Room air 07/13 1649 37.4 07/13 1557 36.7 85 20 133/59 0.0 100 Room air 07/13 1301 36.0 07/13 1153 81 20 105/55 71 100 24 hour I O ending at 0700: 07/14 0700 07/13 1900 Intake Total 740.00 Output Total 200 280 Balance -200 460.00 Intake, IV 140.00 Intake, Oral 600 Number 0 Bowel Movements Number Voids 3 Output, Urine 200 280 Patient 58.1 kg Weight Weight Standing scale Measurement Method PATIENT WEIGHT: Weight (lb): 128Weight (oz): 1.42Weight (kg): 58.100 Medications:Active Meds + DC'd Last 24 HrsEpoetin Tanner-epbx (RETACRIT) 4,000 UNIT TuThSa@2100 IV Ceftriaxone Sodium (ROCEPHIN 1000MG VIAL) 1,000 MG Q24H IV Sodium Chloride (SODIUM CHLORIDE) 10 MLPerflutren Lipid Microsphere (Definity) 0 .STK-MED ONE IV (DC) Aspirin (ASPIRIN) 81 MG DAILY PO Midodrine (PROAMATINE) 5 MG 0800,1200,1600 PO Acetaminophen (TYLENOL) 650 MG Q6H PRN PRN PO Clindamycin Phosphate/Dextrose (Clindamycin 600 MG/D5W 50 ML) 50 ML Q8H IV (DC) Atorvastatin Calcium (LIPITOR) 40 MG BEDTIME PO Albumin Human (ALBUMINAR-25%) 12.5 GM ASDIR PRN IV Heparin Sodium (Porcine) (HEPARIN SODIUM) 3,000 UNIT ASDIR PRN DIALYSIS Lidocaine HCl (LIDOCAINE HCL/PF) 0.5 ML ASDIR PRN I-DERMAL (CKD) Mannitol (Mannitol 20%) 12.5 GM ASDIR PRN IV Sodium Chloride (SODIUM CHLORIDE 0.9%) 2,000 ML ASDIR PRN IV Sodium Chloride (SODIUM CHLORIDE) 5 ML ASDIR PRN IV Sodium Chloride (SODIUM CHLORIDE) 10 ML ASDIR PRN IV Sodium Chloride (SODIUM CHLORIDE 0.9%) 250 ML ASDIR PRN IV Atropine Sulfate (ATROPINE SULFATE 0.1MG/ML SYR) 0.5 MG ASDIR PRN IV (DC) Sodium Chloride (SODIUM CHLORIDE 0.9%) 500 ML ASDIR PRN IV (DC) Physical ExamNeck: full range of motionCardiovascular: normal capillary refill, normal heart sounds, regular rate rhythmRespiratory: aerating well, clear to auscultation, symmetric expansion, no distressAbdomen: non-tender, normal bowel sounds, soft, no distentionNeuro/CREDENTIALS SPECIALIST: alert, oriented X 3Ulcer: Type/cause: diabetic (right heel ulcer), arterial ResultsFindings/Data:Laboratory Tests 07/14 356 Chemistry Sodium (134 - 147 mEq/L) 130 L Potassium (3.4 - 5.0 mEq/L) 3.9 Chloride (100 - 108 mEq/L) 95 L Carbon Dioxide (21 - 33 mEq/l) 24 Anion Gap (0 - 20) 15 BUN (7 - 25 mg/dL) 41 H Creatinine (0.6 - 1.3 mg/dL) 4.4 H Glomerular Filtr Rate (80 - 90) 10.5 L Glucose (77 - 141 mg/dL) 144 H Calcium (8.0 - 10.5 mg/dL) 9.4 Magnesium (1.6 - 2.6 mg/dL) 2.09 Laboratory Tests 07/14 356 Hematology WBC (4.5 - 11.0 x10 3/uL) 13.3 H RBC (3.54 - 5.02 x10 6/uL) 2.86 L Hgb (11.0 - 15.0 g/dL) 9.6 L Hct (33.0 - 45.0 %) 30.5 L MCV (81.0 - 99.0 fL) 106.6 H MCH (27.0 - 33.0 pg) 33.6 H MCHC (33.0 - 37.0 g/dL) 31.5 L RDW (11.5 - 14.5 %) 16.3 H Plt Count (150 - 400 x10 3/uL) 385 MPV (7.0 - 9.0 fL) 11.5 H Neut % (Auto) (56.0 - 77.0 %) 78.5 H Lymph % (Auto) (14.0 - 32.0 %) 11.4 L [place] % (Auto) (4.8 - 9.0 %) 9.2 H Eos % (Auto) (0.3 - 3.7 %) 0.1 L Baso % (Auto) (0.0 - 2.0 %) 0.2 Neut # (Auto) (2.0 - 7.6 x10 3/uL) 10.40 H Lymph # (Auto) (1.0 - 3.8 x10 3/uL) 1.51 [place] # (Auto) (0.1 - 0.8 x10 3/uL) 1.22 H Eos # (Auto) (0.0 - 0.2 x10 3/uL) 0.01 Baso # (Auto) (0.0 - 0.2 x10 3/uL) 0.03 Abs Immat Gran (auto) (0.00 - 0.03 x10 3/uL) 0.08 H Add Manual Diff NO Immature Gran % (0.0 - 2.0 %) 0.6 Nucleated RBC % (0 - 0 %) 0.0 Nucleated RBCs # (Man) (0.0 - 0.1 x10 3/uL) 0.00 Radiology data:Recent Impressions:CAT SCAN - CT CHEST W/O CONTRAST 07/13 6806 Report Impression - Status: SIGNED Entered: 07/13/2023 7096 IMPRESSION: 1. Right upper lobe inflammatory changes. 2. Nonspecific 3 mm right upper lobe pulmonary nodule for patients at low risk (minimal or absent history of smoking and of other known risk factors), no routine follow-up is indicated. For patients at high risk (history of smoking or of other known risk factors), consider optional CT Chest at 12 months. (Reference: Tony) 3. Atherosclerotic disease.4. Bilateral small pleural effusions.REFERENCES: Tony Angel, et al. Guidelines for Management of Incidental Pulmonary Nodules Detected on CT Images: From the Fleischner Society 2017. Radiology. 2017;284(1):228-243. Impression By: [id number] - Francesca Meyer M.D. Diagnosis, Assessment Plan Free Text DxA P NotesFree text DxA P notes:68-year-old female with a past medical history of type 1 diabetes from the age of 46 years old, end-stage renal disease, on dialysis since July 2022, hypertension who presented to her inventory management specialist for evaluation of bilateral nonhealing ulcerations of her bilateral heels for the past 3 months, and shortness of breath with exertion. Left heart catheterization showed significant for severe three-vessel coronary artery disease with severe bilateral occluded SFAs of the lower extremity. Issues as below. Suspected urinary tract infectionSevere three-vessel CADSevere peripheral vascular diseaseDiabetes mellitusEnd-stage renal failure on hemodialysis Nonhealing bilateral heel ulcerationsHypertensionHyperlipidemiaCHF Mitral valve regurgitation Plan plan and recommendations Patient admitted into medicineVital signs every 4PatientAntiplatelets and statin per cardiologySeen by vascular surgery" CT surgery. Nephrology for hemodialysis. Will do basic lab work include CBC BMP now. Patient is not having significant hypoxia at this timeDVT prophylaxisRestart home medicationsDiscussed management plan in detail with patient's family. 07/13/[address] surgery and vascular surgery plansHemodialysis was done yesterdayHemodialysis per nephrologyMonitor renal functionBlood sugar control with insulin pump. 07/14/2023 Fever spike last night blood cultures on empiric antibiotics for possible UTIAntibiotics changedFollow-up on culturesFollow-up on cardiothoracic surgery and oncology recommendations plan to have discussion tomorrowBlood sugars controlledLab work otherwise stableDVT prophylaxisHemodialysis per nephrology at 1013 RPT #:[id number] OF REPORTPRProgress [id number]:11:00G.[id number] ailable for patient yfqyVFMUCEVATPYIBR5010-22-93P10:13:52 [facility] [place] 2023-07-14 09:29:00 [id number] jHE2WT Jf/RV7EvwpP/iFStntXcBM64jjibBP9716-83-72S34:29 :00 [facility]oNeph[facility] Progress NoteREPORT#:[id number] REPORT STATUS: SignedDATE:07/14/23 TIME: 928 PATIENT: JOSEPH ROWLEY UNIT #: [id number]#: [id number] ROOM/BED: 3356-1DOB: [birth year] AGE: 68 SEX: F ATTEND: Tanvir Prasad AUTHOR: Winnie Noyola MD * ALL edits or amendments must be made on the electronic/computer document * SubjectiveComments:HD today Objective GeneralVS/I O:Vital Signs: Date Time Temp Pulse Resp B/P B/P Pulse O2 O2 Flow FiO2 Mean Ox Delivery Rate 07/14 0916 98.6 74 18 82/45 57.5 97 Room air 07/14 0432 98.4 81 14 112/53 0.0 97 Room air 07/14 0038 99.3 82 14 126/47 0.0 98 Room air 07/13 2200 80 24 121/58 84 96 07/13 2053 83 24 128/59 85 99 07/13 2024 86 24 134/60 87 97 07/13 1938 98.2 91 14 131/58 0.0 99 Room air 07/13 1649 99.3 07/13 1557 98.1 85 20 133/59 0.0 100 Room air 07/13 1301 96.8 07/13 1153 81 20 105/55 71 100 24 hour I O ending at 0700: 07/14 0700 07/13 1900 Intake Total 740.00 Output Total 200 280 Balance -200 460.00 Intake, IV 140.00 Intake, Oral 600 Number 0 Bowel Movements Number Voids 3 Output, Urine 200 280 Patient 58.1 kg Weight Weight Standing scale Measurement Method PATIENT WEIGHT: Weight (lb): 128Weight (oz): 1.42Weight (kg): 58.100 Medications Active Meds + DC'd Last 24 HrsEpoetin Tanner-epbx (RETACRIT) 4,000 UNIT TuThSa@2100 IV Ceftriaxone Sodium (ROCEPHIN 1000MG VIAL) 1,000 MG Q24H IV Sodium Chloride (SODIUM CHLORIDE) 10 MLPerflutren Lipid Microsphere (Definity) 0 .STK-MED ONE IV (DC) Aspirin (ASPIRIN) 81 MG DAILY PO Midodrine (PROAMATINE) 5 MG 0800,1200,1600 PO Acetaminophen (TYLENOL) 650 MG Q6H PRN PRN PO Clindamycin Phosphate/Dextrose (Clindamycin 600 MG/D5W 50 ML) 50 ML Q8H IV (DC) Atorvastatin Calcium (LIPITOR) 40 MG BEDTIME PO Albumin Human (ALBUMINAR-25%) 12.5 GM ASDIR PRN IV Heparin Sodium (Porcine) (HEPARIN SODIUM) 3,000 UNIT ASDIR PRN DIALYSIS Lidocaine HCl (LIDOCAINE HCL/PF) 0.5 ML ASDIR PRN I-DERMAL (CKD) Mannitol (Mannitol 20%) 12.5 GM ASDIR PRN IV Sodium Chloride (SODIUM CHLORIDE 0.9%) 2,000 ML ASDIR PRN IV Sodium Chloride (SODIUM CHLORIDE) 5 ML ASDIR PRN IV Sodium Chloride (SODIUM CHLORIDE) 10 ML ASDIR PRN IV Sodium Chloride (SODIUM CHLORIDE 0.9%) 250 ML ASDIR PRN IV Atropine Sulfate (ATROPINE SULFATE 0.1MG/ML SYR) 0.5 MG ASDIR PRN IV (DC) Sodium Chloride (SODIUM CHLORIDE 0.9%) 500 ML ASDIR PRN IV (DC) Physical ExamGeneral appearance: alert, awake, orientedHead/eyes: atraumatic, normocephalic, PERRLANeck: no JVD, no lymphadenopathy, no masses or swellingCardiovascular: normal heart sounds, regular rate and rhythm, no murmur, no rubRespiratory: aerating well, clear to auscultation, normal breath sounds, no distressAbdomen: non-tender, normal bowel sounds, soft, no reboundGenitourinary: no bladder distention, no flank pain, no urinary catheterExtremities: pitting edema, no gangreneNeuro/CREDENTIALS SPECIALIST: alert, oriented X 3, CN II-XII intact, normal speechUlcer: Type/cause: diabetic (right heel ulcer), arterial ResultsFindings/Data:Laboratory Tests 07/14 356 Chemistry Sodium (134 - 147 mEq/L) 130 L Potassium (3.4 - 5.0 mEq/L) 3.9 Chloride (100 - 108 mEq/L) 95 L Carbon Dioxide (21 - 33 mEq/l) 24 Anion Gap (0 - 20) 15 BUN (7 - 25 mg/dL) 41 H Creatinine (0.6 - 1.3 mg/dL) 4.4 H Glomerular Filtr Rate (80 - 90) 10.5 L Glucose (77 - 141 mg/dL) 144 H Calcium (8.0 - 10.5 mg/dL) 9.4 Magnesium (1.6 - 2.6 mg/dL) 2.09 Laboratory Tests 07/14 356 Hematology WBC (4.5 - 11.0 x10 3/uL) 13.3 H RBC (3.54 - 5.02 x10 6/uL) 2.86 L Hgb (11.0 - 15.0 g/dL) 9.6 L Hct (33.0 - 45.0 %) 30.5 L MCV (81.0 - 99.0 fL) 106.6 H MCH (27.0 - 33.0 pg) 33.6 H MCHC (33.0 - 37.0 g/dL) 31.5 L RDW (11.5 - 14.5 %) 16.3 H Plt Count (150 - 400 x10 3/uL) 385 MPV (7.0 - 9.0 fL) 11.5 H Neut % (Auto) (56.0 - 77.0 %) 78.5 H Lymph % (Auto) (14.0 - 32.0 %) 11.4 L [place] % (Auto) (4.8 - 9.0 %) 9.2 H Eos % (Auto) (0.3 - 3.7 %) 0.1 L Baso % (Auto) (0.0 - 2.0 %) 0.2 Neut # (Auto) (2.0 - 7.6 x10 3/uL) 10.40 H Lymph # (Auto) (1.0 - 3.8 x10 3/uL) 1.51 [place] # (Auto) (0.1 - 0.8 x10 3/uL) 1.22 H Eos # (Auto) (0.0 - 0.2 x10 3/uL) 0.01 Baso # (Auto) (0.0 - 0.2 x10 3/uL) 0.03 Abs Immat Gran (auto) (0.00 - 0.03 x10 3/uL) 0.08 H Add Manual Diff NO Immature Gran % (0.0 - 2.0 %) 0.6 Nucleated RBC % (0 - 0 %) 0.0 Nucleated RBCs # (Man) (0.0 - 0.1 x10 3/uL) 0.00 Radiology data:Recent Impressions:CAT SCAN - CT CHEST W/O CONTRAST 07/13 7666 Report Impression - Status: SIGNED Entered: 07/13/2023 0667 IMPRESSION: 1. Right upper lobe inflammatory changes. 2. Nonspecific 3 mm right upper lobe pulmonary nodule for patients at low risk (minimal or absent history of smoking and of other known risk factors), no routine follow-up is indicated. For patients at high risk (history of smoking or of other known risk factors), consider optional CT Chest at 12 months. (Reference: Tony) 3. Atherosclerotic disease.4. Bilateral small pleural effusions.REFERENCES: Tony H, et al. Guidelines for Management of Incidental Pulmonary Nodules Detected on CT Images: From the Fleischner Society 2017. Radiology. 2017;284(1):228-243. Impression By: [email or web address] Meyer M.D. Diagnosis, Assessment PlanFree Text A P:1. ESRD continue with TTS dialysis this week and then switch her back to Tuesday next week. HD today 2. Hypotension restart midodrine tonight 3. Coronary disease needs CABG, CT surgery consulted 4. Diabetes type 1 per primary team 5. Anemia of CKD check lab and on ESAas hemoglobin less than 106. Hyponatremia UF with HD as tolerated Discussed with at bedside at 1456 RPT #:[id number] OF REPORTPRProgress [id number]:29:00G.[id number] ailable for patient nlsfGSJIYYIPMGTDFB9877-12-07A32:57:04 [facility] [place] 2023-07-14 07:38:00 [id number]/RVa4+jWn5eJy Zp/TTP xV6h4Oz5Pbn/jE5IcMrDsYl8lVh1Q/5336-51-56H82:38 :00 [facility]oCardiology Progress NoteREPORT#:[id number] REPORT STATUS: SignedDATE:07/14/23 TIME: 737 PATIENT: JOSEPH ROWLEY UNIT #: [id number]#: [id number] [place]OM[place] [facility] [place]DOB: [birth year] AGE: 68 SEX: F ATTEND: Tanvir Prasad MDADM AUTHOR: Yue Barragan AGACNP * ALL edits or amendments must be made on the electronic/computer document * Yue Barragan 07/14/23 0738:SubjectiveComments:No CP or SOB. Resting comfortably. Objective GeneralVS/I O:24 hour I O ending at 0700: 07/14 0700 07/13 1900 Intake Total 740.00 Output Total 200 280 Balance -200 460.00 Intake, IV 140.00 Intake, Oral 600 Number 0 Bowel Movements Number Voids 3 Output, Urine 200 280 Patient 58.1 kg Weight Weight Standing scale Measurement Method Vital Signs: Date Time Temp Pulse Resp B/P B/P Pulse O2 O2 Flow FiO2 Mean Ox Delivery Rate 07/14 0432 36.9 81 14 112/53 0.0 97 Room air 07/14 0038 37.4 82 14 126/47 0.0 98 Room air 07/13 2200 80 24 121/58 84 96 07/13 2053 83 24 128/59 85 99 07/13 2024 86 24 134/60 87 97 07/13 1938 36.8 91 14 131/58 0.0 99 Room air 07/13 1649 37.4 07/13 1557 36.7 85 20 133/59 0.0 100 Room air 07/13 1301 36.0 07/13 1153 81 20 105/55 71 100 PATIENT WEIGHT: Weight (lb): 128Weight (oz): 1.42Weight (kg): 58.100 Medications:Active Meds + DC'd Last 24 HrsEpoetin Tanner-epbx (RETACRIT) 4,000 UNIT TuThSa@2100 IV Perflutren Lipid Microsphere (Definity) 0 .STK-MED ONE IV (DC) Aspirin (ASPIRIN) 81 MG DAILY PO Midodrine (PROAMATINE) 5 MG 0800,1200,1600 PO Acetaminophen (TYLENOL) 650 MG Q6H PRN PRN PO Clindamycin Phosphate/Dextrose (Clindamycin 600 MG/D5W 50 ML) 50 ML Q8H IV Atorvastatin Calcium (LIPITOR) 40 MG BEDTIME PO Albumin Human (ALBUMINAR-25%) 12.5 GM ASDIR PRN IV Heparin Sodium (Porcine) (HEPARIN SODIUM) 3,000 UNIT ASDIR PRN DIALYSIS Lidocaine HCl (LIDOCAINE HCL/PF) 0.5 ML ASDIR PRN I-DERMAL (CKD) Mannitol (Mannitol 20%) 12.5 GM ASDIR PRN IV Sodium Chloride (SODIUM CHLORIDE 0.9%) 2,000 ML ASDIR PRN IV Sodium Chloride (SODIUM CHLORIDE) 5 ML ASDIR PRN IV Sodium Chloride (SODIUM CHLORIDE) 10 ML ASDIR PRN IV Sodium Chloride (SODIUM CHLORIDE 0.9%) 250 ML ASDIR PRN IV Atropine Sulfate (ATROPINE SULFATE 0.1MG/ML SYR) 0.5 MG ASDIR PRN IV (DC) Sodium Chloride (SODIUM CHLORIDE 0.9%) 500 ML ASDIR PRN IV (DC) Physical ExamGeneral appearance: frail, alert, awakeNeck: non-tender, no JVDCardiovascular: CV assessment: regular rate and rhythm Murmur assessment:heart murmurRespiratory: clear to auscultation, no distressAbdomen: soft, non-tender, normal bowel sounds, no distentionGenitourinary: no flank pain, no urinary catheterLower extremity: LE assessment: abnormal pedal pulse, abnormal peripheral pulseMusculoskeletal: normal inspectionNeuro/CREDENTIALS SPECIALIST: alert, oriented X 3, normal speechSkin: right heel ulcerUlcer: Type/cause: diabetic (right heel ulcer), arterialPsychiatry: normal affect, normal mood ResultsFindings/Data:Laboratory Tests 07/14 356 Chemistry Sodium (134 - 147 mEq/L) 130 L Potassium (3.4 - 5.0 mEq/L) 3.9 Chloride (100 - 108 mEq/L) 95 L Carbon Dioxide (21 - 33 mEq/l) 24 Anion Gap (0 - 20) 15 BUN (7 - 25 mg/dL) 41 H Creatinine (0.6 - 1.3 mg/dL) 4.4 H Glomerular Filtr Rate (80 - 90) 10.5 L Glucose (77 - 141 mg/dL) 144 H Calcium (8.0 - 10.5 mg/dL) 9.4 Magnesium (1.6 - 2.6 mg/dL) 2.09 Laboratory Tests 07/14 356 Hematology WBC (4.5 - 11.0 x10 3/uL) 13.3 H RBC (3.54 - 5.02 x10 6/uL) 2.86 L Hgb (11.0 - 15.0 g/dL) 9.6 L Hct (33.0 - 45.0 %) 30.5 L MCV (81.0 - 99.0 fL) 106.6 H MCH (27.0 - 33.0 pg) 33.6 H MCHC (33.0 - 37.0 g/dL) 31.5 L RDW (11.5 - 14.5 %) 16.3 H Plt Count (150 - 400 x10 3/uL) 385 MPV (7.0 - 9.0 fL) 11.5 H Neut % (Auto) (56.0 - 77.0 %) 78.5 H Lymph % (Auto) (14.0 - 32.0 %) 11.4 L [place] % (Auto) (4.8 - 9.0 %) 9.2 H Eos % (Auto) (0.3 - 3.7 %) 0.1 L Baso % (Auto) (0.0 - 2.0 %) 0.2 Neut # (Auto) (2.0 - 7.6 x10 3/uL) 10.40 H Lymph # (Auto) (1.0 - 3.8 x10 3/uL) 1.51 [place] # (Auto) (0.1 - 0.8 x10 3/uL) 1.22 H Eos # (Auto) (0.0 - 0.2 x10 3/uL) 0.01 Baso # (Auto) (0.0 - 0.2 x10 3/uL) 0.03 Abs Immat Gran (auto) (0.00 - 0.03 x10 3/uL) 0.08 H Add Manual Diff NO Immature Gran % (0.0 - 2.0 %) 0.6 Nucleated RBC % (0 - 0 %) 0.0 Nucleated RBCs # (Man) (0.0 - 0.1 x10 3/uL) 0.00 Laboratory Tests 07/14 0356 Chemistry Magnesium (1.6 - 2.6 mg/dL) 2.09 Radiology data:Recent Impressions:CAT SCAN - CT CHEST W/O CONTRAST 07/13 1446 Report Impression - Status: SIGNED Entered: 07/13/2023 8115 IMPRESSION: 1. Right upper lobe inflammatory changes. 2. Nonspecific 3 mm right upper lobe pulmonary nodule for patients at low risk (minimal or absent history of smoking and of other known risk factors), no routine follow-up is indicated. For patients at high risk (history of smoking or of other known risk factors), consider optional CT Chest at 12 months. (Reference: Tony) 3. Atherosclerotic disease.4. Bilateral small pleural effusions.REFERENCES: Tony Angel, et al. Guidelines for Management of Incidental Pulmonary Nodules Detected on CT Images: From the Fleischner Society 2017. Radiology. 2017;284(1):228-243. Impression By: [id number] Ozzy Meyer M.D. Results: labs reviewed, vital signs reviewed, rhythm personally rev'dTelemetry Interpretation:sinus rhythm Diagnosis, Assessment PlanPlan discussed with: patient, collaborating MD Free Text DxA P NotesFree Text DxA P Notes:68 YO female with MHx of IDDM on insulin pump, nonhealing foot ulcers, ESRD on HD MWF, recent diagnosis of severe cardiomyopathy, HFrEF with LVEF of 25% as well as severe MR. She had elective coronary and peripheral angiogram today, which revealed multivessel CAD and severe bilateral PAD. Vascular surgery and cardiothoracic surgery has been consulted. History provided by the patient and supplemented by niece who is the MPOA. 1. Multivessel CAD* CTS workup onging for CABG plus MVR* Aspirin, statin* extremely elevated STS risk score about 50%* nuclear viability study* CTA head, neck, abdomen, pelvis to evaluate subclavian artery, carotid arteries, mesenteric arteries* case will be presented at the CV high risk conference tomorrow 2. Severe PAD with nonhealing foot ulcers* Vascular surgery recommendation noted 3. Mitral regurgitation* CTS eval for MVR* repeat echo with contrast 4. Ischemic cardiomyopathy/HFrEF* volume management per HD* on midodrine d/t chronic hypotension* no ACEI or ARB d/t chronic hypotension requiring midodrine 5. ESRD - on HD* nephrology following 6. IDDM* per primary team MDM by Dr. Pak. Kimberly Pak 07/15/23 1712:Attestations Physician AttestationAgree w/findings plan:I have seen and examined the pt, I Agree with the findings and plan as documented by Yue Barragan. at 1354 at 1712 RPT #:[id number] OF REPORTPRProgress [id number]:38:00G.[id number] ailable for patient [id number]:54:29 [facility] [place] 2023-07-13 18:26:00 [id number] kxWIih [id number]:26 :00 [facility] ProgREPORT#:[id number] REPORT STATUS: SignedDATE:07/13/23 TIME: 1825 PATIENT: JOSEPH ROWLEY UNIT #: [id number]#: [id number] ROOM/BED: 3356-1DOB: [birth year] AGE: 68 SEX: F ATTEND: Tanvir Prasad MDADM AUTHOR: Trudy Colindres Physic * ALL edits or amendments must be made on the electronic/computer document * SubjectiveChief complaint:CAD,PVD nonhealing lower extremity ulcersPatient resting comfortable. Review of SystemsConstitutional:Denies: fever, generalized weakness. Skin:Denies: rash, swelling. Allergy/Immun:Denies: itching, rhinorrhea. Eyes:Denies: itching, diplopia. Respiratory:Denies: VICENTE (dyspnea on exertion), hemoptysis. Cardiovascular:Denies: VICENTE (dyspnea on exertion), edema. GI:Denies: constipation, diarrhea. :Denies: dysuria, hematuria. Musculoskeletal:Denies: joint pain, joint swelling. Heme:Denies: bleeding, bruising. Endocrine:Denies: polydipsia, polyuria. Neuro:Denies: confusion, dizziness. All systems rev neg: except as marked Objective GeneralVS/I OLast Documented: Result Date Time Temp 99.3 07/13 1649 Pulse Ox 100 07/13 1557 B/P 133/59 07/13 1557 B/P Mean 0.0 07/13 1557 O2 Delivery Room air 07/13 1557 Pulse 85 07/13 1557 Resp 20 07/13 1557 24 hour I O ending at 0700: 07/13 0700 07/12 1900 Intake Total Output Total 2600 Balance -2600 Number 2 Bowel Movements Output, 2500 Hemodialysis Output, Urine 100 Patient 57.1 kg Weight Weight Standing scale Measurement Method PATIENT WEIGHT: Weight (lb): 125Weight (oz): 14.14Weight (kg): 57.100 Physical ExamGeneral appearance: alert, awake, orientedHEENT: anicteric, mucosal membranes moistCardiovascular: BP/pulses equal bilat., regular rate rhythmRespiratory: aerating well, clear to auscultationAbdomen: soft, non-tenderExtremities: dry, moves allMusculoskeletal: full range of motion, painless range of motionNeuro/CREDENTIALS SPECIALIST: alert, oriented X 3Skin: dry, intactUlcer: Type/cause: diabetic (right heel ulcer), arterial Diagnosis, Assessment PlanHospital course to date: This is a very pleasant 68-year-old female with a past medical history of type 1diabetes from the age of 46 years old, end-stage renal disease, on dialysis sinceSept2021, hypertension who presented to her inventory management specialist for evaluation ofbilateral nonhealing ulcerations of her bilateral heels for the past 3 months, and shortness of breath with exertion. Her last echocardiogram was completed with her inventory management specialist showing an EF 20-25%with mild LVH, severe global hypokinesis, mildly dilated left atrium with moderate aortic sclerosis without stenosis, mitral valve leaflets mildly thickened with severe MR, mild to moderate TR, moderate pulmonary hypertension with an RV systolic pressure 62 mmHg. Patient underwent left heart catheterization today and was found to have severe three-vessel coronary artery disease, with severe bilateral occluded SFAs of thelower extremity. CV surgery consulted for evaluation for coronary artery bypass graft surgery Assessment/plan1. Severe three-vessel CAD2. Type I diabetic3. Severe peripheral vascular disease4. Nonhealing bilateral heel ulcerations5. Hypertension6. Hyperlipidemia7. CHF Documented EF 20-25% in the outpatient setting . Mitral valve regurgitation Noted to be severe on echocardiogram from March 2023 in the outpatient setting Patient with severe multivessel CAD. Patient will be worked up for CAD, Further recs to follow. Thank you for this consult. 07/12/23 Echo Left ventricle: The cavity size is normal. Wall thickness is normal. Systolic function is severely reduced. The estimated ejection fraction is 30-34%. Severe diffuse hypokinesis. Doppler parameters are consistent with restrictive physiology, indicative of decreased left ventricular diastolic compliance and/or increased left atrial pressure. Average global longitudinal strain is -5.7.2. Right ventricle: Systolic function is mildly to moderately reduced. Systolic pressure is severely increased.3. Left atrium: The atrium is dilated. The end-systolic volume index (A-L) is 50 ml/m 2.4. Mitral valve: The annulus is calcified. Prolapse cannot be excluded. There is moderate to severe regurgitation, directed posteriorly and along the left atrial wall. The effective regurgitant orifice (PISA) is 0.39 cm 2. The regurgitant volume (PISA) is 46 ml.5. Tricuspid valve: Estimated right ventricular systolic pressure is 76 mmHg. There is moderate-severe regurgitation directed toward the septum.6. Pericardium, extracardiac: There is a large left pleural effusion.7. Inferior vena cava: The vessel is dilated. The respirophasic diameter changes are blunted (< 50%). Inferior vena cava diameter measures 2.2 cm. 07/13/23Patinet resting comfortable, Denies any new complaints. On room air. Sinus rhythm. AAO x 3Cardiac workup still underway. CTA head, abdomena nd pelvis ordered by cardiology. Patient will be presented in the high risk cardiology conference. Further recs to follow. at 1831 at 1603 RPT #:[id number] OF REPORTPRProgress [id number]:26:00G.[id number] ailable for patient [id number]:31:18 [facility] [place] 2023-07-13 15:16:00 [id number]/hxeOt/ ULpFSo [id number]:16 :[id number] [place] [address] PATIENT NAME: JOSEPH ROWLEY ADMIT DATE: 07/12/23ACCOUNT NO: [id number] ROOM NO: .3356 AGE: 68 REPORT TYPE: eECHOCARDIOGRAM REPORT SEX: F ADMITTING PHYSICIAN:Tanvir Prasad MD ATTENDING PHYSICIAN:Cinthya Leiva MD *[address] [address]Ukvlq: [phone]: [phone] Transthoracic Echocardiogram Patient: Sae Rowleyudleslie Date: 07/13/2023 BP: 105 / 55 [facility] [id number] : 1955 Age: 68 Height: 57 in / 144.8 cmAccession#: [id number] Gender: F Weight: 124.7 lb / 56.7 kgBMI/BSA: 27 kg/m 2 / 1.47 m 2 *Ordering Physician: * Kimberly Pak MD *Interpreting Physician: * Kimberly Pak MD*Vice President And Portfolio Manager: * Ana Laura Boone Indications: Severe MR, assess ejection fraction. Study data: Transthoracic echocardiogram. Procedure: Transthoracicechocardiography was performed. Image quality was adequate. Intravenouscontrast (Definity) was administered. Complete 2D, complete spectralDoppler, and color Doppler. Location: Bedside. Patient status:Inpatient. Patient room number: 3356. Study status: Routine. Rhythm:Normal sinus rhythm. Findings Left ventricle: The cavity size is normal. Wall thickness is normal.Systolic function is severely reduced. The estimated ejection fractionis 30-34%. Severe diffuse hypokinesis. Average global longitudinalstrain is -5.7. Doppler parameters are consistent with restrictivephysiology, indicative of decreased left ventricular diastolicPATIENT NAME: JOSEPH ROWLEY compliance and/or increased left atrial pressure.Right ventricle: Estimated TAPSE is 1.1 cm. The cavity size is normal.Systolic function is mildly to moderately reduced. Systolic pressure isseverely increased.Left atrium: The atrium is dilated.Right atrium: The atrium is normal in size.Aorta: Aortic root: The aortic root is normal in size.Aortic valve: The valve is structurally normal. The valve istrileaflet. There is no evidence of stenosis. There is noregurgitation.Mitral valve: The annulus is calcified. Prolapse cannot be excluded.There is no evidence of stenosis. There is moderate to severeregurgitation, directed posteriorly and along the left atrial wall.Tricuspid valve: Estimated right ventricular systolic pressure is 76mmHg. The valve is structurally normal. There is moderate-severeregurgitation directed toward the septum.Pulmonic valve: The valve is structurally normal. There is noregurgitation.Pericardium: There is no pericardial effusion. There is a large leftpleural effusion.Pulmonary arteries:The main pulmonary artery is normal-sized.Systemic veins:Inferior vena cava: The vessel is dilated. The respirophasic diameterchanges are blunted (< 50%). Inferior vena cava diameter measures 2.2cm. Measurements Left ventricle Value Ref GLS, 2D -9 % --------- DONNA, LAX 5.0 cm 3.8 - 5.2 ESD, LAX 4.1 cm 2.2 - 3.5 ESD/bsa, LAX 2.8 cm/m 2 1.3 - 2.1 FS, LAX 18 % 27 - 45 ESD/bsa major 4.9 cm/m 2 --------- ax, A4C DONNA/bsa minor 4.9 cm/m 2 --------- ax, A4C DONNA major ax, 8.3 cm --------- A2C ESD major ax, 7.5 cm --------- A2C DONNA/bsa major 5.6 cm/m 2 --------- ax, A2C ESD/bsa major 5.1 cm/m 2 --------- ax, A2C PW, ED 0.6 cm 0.6 - 0.9 IVS/PW, ED 1.35 --------- EF 37 % 54 - 74 E', lat emilee, 7.6 cm/sec >=10.0 TDI E/e', lat emilee, 13 ---------PATIENT NAME: JOSEPH ROWLEY TDI E', med emilee, 5.2 cm/sec >=7.0 TDI E/e', med emilee, 19 --------- TDI E', avg, TDI 6.4 cm/sec --------- E/e', avg, TDI 16 <=14 LVOT Value Ref Diam, S 1.52 cm --------- Area 1.8 cm 2 --------- Peak katia, S 0.5 m/sec --------- Mean katia, S 0.37 m/sec --------- VTI, S 8.3 cm --------- Peak grad, S 1 mm Hg --------- Mean grad, S 1 mm Hg --------- SV 15 ml --------- Qs 1.32 L/min --------- Qs/bsa 0.9 L/(min-m 2) --------- SV/bsa 10 ml/m 2 --------- Ventricular septum Value Ref IVS, ED 0.8 cm 0.6 - 0.9 Right ventricle Value Ref DONNA, LAX 2.5 cm --------- TAPSE, MM 1.1 cm 1.7 - 3.1 S' lateral 8.9 cm/sec 6.0 - 13.4 RVOT Value Ref Peak v, S 0.59 m/sec --------- Peak grad, S 1 mm Hg --------- Left atrium Value Ref AP dim, ES 4.43 cm 2.70 - 3.80 Vol/bsa, ES, 46 ml/m 2 11 - 40 1-p A4C Vol, ES, 2-p 60 ml --------- Vol/bsa, ES, 41 ml/m 2 16 - 34 2-p Vol/bsa, ES, 50 ml/m 2 16 - 34 A/L AP dim, ES MM 3.8 cm 2.7 - 3.8 LA/Ao root 1.45 --------- ratio, MM Right atrium Value Ref Area, ES 14 cm 2 10 - 18 SI dim, ES, A4C 4.2 cm 3.4 - 5.3 SI dim/bsa, ES, 2.9 cm/m 2 1.9 - 3.1 A4C Vol, ES, A/L 40 ml ---------PATIENT NAME: JOSEPH ROWLEY Vol, ES, 1-p 40 ml --------- A4C Vol/bsa, ES, 27 ml/m 2 9 - 33 1-p A4C Aortic valve Value Ref TANA, plan 1.29 cm 2 --------- TANA/bsa, plan 0.88 cm 2/m 2 --------- Leaflet sep, MM 1.43 cm --------- Peak v, S 1.23 m/sec --------- Mean v, S 0.87 m/sec --------- VTI, S 17.4 cm --------- Mean grad, S 3.4 mm Hg --------- Peak grad, S 6.0 mm Hg --------- LVOT/AV, VTI 0.47 --------- ratio TANA, VTI 0.86 cm 2 --------- LVOT/AV, Vpeak 0.41 --------- ratio TANA, Vmax 0.75 cm 2 --------- Mitral valve Value Ref MVA, planimetry 3.5 cm 2 --------- Peak E 1 m/sec --------- Peak A 0.4 m/sec --------- Mean v, D 0.6 m/sec --------- VTI leaflet 23.5 cm --------- coapt Decel time 113 ms --------- PHT 58 ms --------- Mean grad, D 1.7 mm Hg --------- Peak grad, D 4.0 mm Hg --------- Peak E/A ratio 2.47 --------- MVA, PHT 3.8 cm 2 --------- MR peak v 4.54 m/sec --------- ERO, PISA 0.39 cm 2 --------- MR vol, PISA 46 ml --------- MR fraction, 75 % --------- PISA Pulmonic valve Value Ref LA v, ED 0.88 m/sec --------- Tricuspid valve Value Ref TR peak v 3.82 m/sec <=2.8 Peak RV-RA 58 mm Hg --------- grad, S ERO, PISA 0.23 cm 2 --------- Aortic root Value Ref Root diam, ED 2.62 cm --------- MM PATIENT NAME: JSOEPH ROWLEY Conclusions Summary: 1. Left ventricle: The cavity size is normal. Wall thickness is normal. Systolic function is severely reduced. The estimated ejection fraction is 30-34%. Severe diffuse hypokinesis. Doppler parameters are consistent with restrictive physiology, indicative of decreased left ventricular diastolic compliance and/or increased left atrial pressure. Average global longitudinal strain is -5.7.2. Right ventricle: Systolic function is mildly to moderately reduced. Systolic pressure is severely increased.3. Left atrium: The atrium is dilated. The end-systolic volume index (A-L) is 50 ml/m 2.4. Mitral valve: The annulus is calcified. Prolapse cannot be excluded. There is moderate to severe regurgitation, directed posteriorly and along the left atrial wall. The effective regurgitant orifice (PISA) is 0.39 cm 2. The regurgitant volume (PISA) is 46 ml.5. Tricuspid valve: Estimated right ventricular systolic pressure is 76 mmHg. There is moderate-severe regurgitation directed toward the septum.6. Pericardium, extracardiac: There is a large left pleural effusion.7. Inferior vena cava: The vessel is dilated. The respirophasic diameter changes are blunted (< 50%). Inferior vena cava diameter measures 2.2 cm. Prepared and electronically signed by Kimberly Pak MD07/13/2023 15:16 at 1516 PATIENT NAME: JOSEPH ROWLEY :1 6:00G.[id number] for patient [id number]:17:22 [facility] [place] 2023-07-13 14:31:00 [id number]:31 :00 [facility] Progress NoteREPORT#:[id number] REPORT STATUS: SignedDATE:07/13/23 TIME: 1431 PATIENT: JOSEPH ROWLEY UNIT #: [id number]#: [id number] [address] [birth year] AGE: 68 SEX: F ATTEND: Cinthya Leiva [facility] AUTHOR: Winnie Noyola MD * ALL edits or amendments must be made on the electronic/computer document * SubjectiveComments:No complaint Objective GeneralVS/I O:Vital Signs: Date Time Temp Pulse Resp B/P B/P Pulse O2 O2 Flow FiO2 Mean Ox Delivery Rate 07/13 1301 96.8 07/13 1153 81 20 105/55 71 100 07/13 0703 97.7 72 20 124/58 0.0 100 Room air 07/13 0356 97.9 73 14 107/54 0.0 97 Room air 07/13 0201 86 101/65 78 97 07/13 0007 101.7 93 14 116/44 0.0 96 Room air 07/13 0003 96 07/12 2230 97 22 152/71 97 98 07/12 2215 87 19 134/62 89 96 07/12 2200 97.7 86 16 126/50 07/12 2200 91 20 126/58 83 97 07/12 2145 92 22 117/54 78 98 07/12 2130 97 20 117/57 82 98 07/125 99 22 118/55 79 99 07/12 2100 90 21 143/64 92 99 07/125 89 19 148/60 87 100 07/12 2032 96 28 149/67 97 99 07/12 2015 95 21 109/58 80 100 07/12 2001 94 22 106/58 77 99 07/12 1947 92 22 140/56 80 100 07/12 1933 90 25 131/66 81 100 07/12 1925 88 18 100 07/12 1922 97.9 91 14 131/55 0.0 100 Room air 07/12 1920 91 25 131/55 79 100 07/12 1916 87 20 146/56 81 100 07/12 1900 87 28 121/55 79 100 07/12 1845 84 23 120/54 78 100 07/12 1830 82 23 137/55 79 100 07/12 1825 82 31 100 07/12 1815 81 26 148/59 85 100 07/12 1810 81 23 131/53 77 100 07/12 1745 74 30 97/44 64 100 07/12 1730 73 23 91/41 53 99 07/12 1725 74 20 98 07/12 1716 75 23 99/52 75 99 07/12 1715 97.9 75 20 99/52 07/12 1702 78 27 105/55 72 99 07/12 1625 83 27 119/56 80 100 24 hour I O ending at 0700: 07/13 0700 07/12 1900 Intake Total Output Total 2600 Balance -2600 Number 2 Bowel Movements Output, 2500 Hemodialysis Output, Urine 100 Patient 57.1 kg Weight Weight Standing scale Measurement Method PATIENT WEIGHT: Weight (lb): 125Weight (oz): 14.14Weight (kg): 57.100 MedicationsActive Meds + DC'd Last 24 HrsAspirin (ASPIRIN) 81 MG DAILY PO Midodrine (PROAMATINE) 5 MG 0800,1200,1600 PO Acetaminophen (TYLENOL) 650 MG Q6H PRN PRN PO Clindamycin Phosphate/Dextrose (Clindamycin 600 MG/D5W 50 ML) 50 ML Q8H IV Atorvastatin Calcium (LIPITOR) 40 MG BEDTIME PO Famotidine (PEPCID) 40 MG BEDTIME PO (DC) Midodrine (PROAMATINE) 5 MG STAT STA PO (DC) Albumin Human (ALBUMINAR-25%) 12.5 GM ASDIR PRN IV Heparin Sodium (Porcine) (HEPARIN SODIUM) 3,000 UNIT ASDIR PRN DIALYSIS Lidocaine HCl (LIDOCAINE HCL/PF) 0.5 ML ASDIR PRN I-DERMAL (CKD) Mannitol (Mannitol 20%) 12.5 GM ASDIR PRN IV Sodium Chloride (SODIUM CHLORIDE 0.9%) 2,000 ML ASDIR PRN IV Sodium Chloride (SODIUM CHLORIDE) 5 ML ASDIR PRN IV Sodium Chloride (SODIUM CHLORIDE) 10 ML ASDIR PRN IV Sodium Chloride (SODIUM CHLORIDE 0.9%) 250 ML ASDIR PRN IV Atropine Sulfate (ATROPINE SULFATE 0.1MG/ML SYR) 0.5 MG ASDIR PRN IV (DC) Sodium Chloride (SODIUM CHLORIDE 0.9%) 1,000 ML .[id number] IV (DC) Sodium Chloride (SODIUM CHLORIDE 0.9%) 500 ML ASDIR PRN IV (DC) Physical ExamGeneral appearance: alert, awake, orientedHead/eyes: atraumatic, normocephalic, PERRLANeck: no JVD, no lymphadenopathy, no masses or swellingCardiovascular: normal heart sounds, regular rate and rhythm, no murmur, no rubRespiratory: aerating well, clear to auscultation, normal breath sounds, no distressAbdomen: non-tender, normal bowel sounds, soft, no reboundGenitourinary: no bladder distention, no flank pain, no urinary catheterExtremities: pitting edema, no gangreneNeuro/CREDENTIALS SPECIALIST: alert, oriented X 3, CN II-XII intact, normal speech ResultsFindings/Data:Laboratory Tests 07/12 1802 Chemistry Sodium (134 - 147 mEq/L) 133 L Potassium (3.4 - 5.0 mEq/L) 3.5 Chloride (100 - 108 mEq/L) 99 L Carbon Dioxide (21 - 33 mEq/l) 25 Anion Gap (0 - 20) 13 BUN (7 - 25 mg/dL) 52 H Creatinine (0.6 - 1.3 mg/dL) 3.4 H Glomerular Filtr Rate (80 - 90) 14.3 L Glucose (77 - 141 mg/dL) 149 H Calcium (8.0 - 10.5 mg/dL) 9.2 Laboratory Tests 07/13 0426 Hematology WBC (4.5 - 11.0 x10 3/uL) 13.6 H RBC (3.54 - 5.02 x10 6/uL) 2.68 L Hgb (11.0 - 15.0 g/dL) 9.0 L Hct (33.0 - 45.0 %) 28.2 L MCV (81.0 - 99.0 fL) 105.2 H MCH (27.0 - 33.0 pg) 33.6 H MCHC (33.0 - 37.0 g/dL) 31.9 L RDW (11.5 - 14.5 %) 16.0 H Plt Count (150 - 400 x10 3/uL) 351 MPV (7.0 - 9.0 fL) 11.2 H Neut % (Auto) (56.0 - 77.0 %) 81.7 H Lymph % (Auto) (14.0 - 32.0 %) 9.0 L [place] % (Auto) (4.8 - 9.0 %) 8.5 Eos % (Auto) (0.3 - 3.7 %) 0.1 L Baso % (Auto) (0.0 - 2.0 %) 0.1 Neut # (Auto) (2.0 - 7.6 x10 3/uL) 11.07 H Lymph # (Auto) (1.0 - 3.8 x10 3/uL) 1.22 [place] # (Auto) (0.1 - 0.8 x10 3/uL) 1.15 H Eos # (Auto) (0.0 - 0.2 x10 3/uL) 0.01 Baso # (Auto) (0.0 - 0.2 x10 3/uL) 0.02 Abs Immat Gran (auto) (0.00 - 0.03 x10 3/uL) 0.08 H Add Manual Diff NO Immature Gran % (0.0 - 2.0 %) 0.6 Nucleated RBC % (0 - 0 %) 0.0 Nucleated RBCs # (Man) (0.0 - 0.1 x10 3/uL) 0.00 Laboratory Tests 07/12 1802 Serology Hepatitis A IgM Ab (NON REACT. INDEX) NON REACTIVE Hep Bs Antigen (NonReactive INDEX) NON REACTIVE Hep B Core IgM Ab (NON REACT. INDEX) NON REACTIVE Hepatitis C Antibody (NON REACT. INDEX) NON REACTIVE Laboratory Tests 07/13 0104 Urines Urine Color (YEL/STRAW) YELLOW Urine Appearance (CLEAR) CLOUDY H Urine pH (5.0 - 7.0) 6.0 Ur Specific [place] (1.005 - 1.030) 1.010 Urine Protein (NEGATIVE) 3+ H Urine Glucose (UA) (NEGATIVE) NEGATIVE Urine Ketones (NEGATIVE) NEGATIVE Urine Blood (NEGATIVE) 4+ H Urine Nitrite (NEGATIVE) NEGATIVE Urine Bilirubin (NEGATIVE) NEGATIVE Urine Urobilinogen (0.2 - 1.0 mg/dL) 0.2 Ur Leukocyte Esterase (NEGATIVE) 3+ H Urine RBC (0 - 3 RBC/HPF) 21-50 Urine WBC (0 - 3 WBC/HPF) >50 H Ur Squamous Epith Cells (NONE SEEN /HPF) 0-5 Urine Bacteria (NONE SEEN /HPF) TRACE Radiology data:Recent Impressions:ULTRASOUND - DUP VEIN SHEKHAR 07/13 0656 Report Impression - Status: SIGNED Entered: 07/13/2023 0719 IMPRESSION: Greater saphenous vein is patent. Vein mapping as described. Impression By: [id number] - Leonardo Martell M.D.ULTRASOUND - DUP EXTRACRANIAL SHEKHAR 07/13 656 Report Impression - Status: SIGNED Entered: 07/13/2023 0948 IMPRESSION:1. No ultrasound evidence for hemodynamically significant stenosis to either carotid artery.Consensus panel Doppler US criteria for diagnosis of ICA stenosis:Stenosis (%) ICA PSV (cm/sec) ICA/CCA ratio <50 <180 <2.050-69 180-230 2.0-4.0>70 but less than >230 >4.0 near occlusionNear occlusion High, low, or Variable undetectableImpression By: [id number] - David Liao M.D. Diagnosis, Assessment PlanFree Text A P:1. ESRD continue with TTS dialysis this week and then switch her back to Tuesday next week. HD 2. Hypotension restart midodrine tonight 3. Coronary disease needs CABG, CT surgery consulted 4. Diabetes type 1 prior primary team 5. Anemia of CKD check lab and start ESAas hemoglobin less than 10 Discussed with at bedside at 1730 RPT #:[id number] OF REPORTPRProgress [id number]:31:00G.[id number] ailable for patient zrfnGDOJMRNKYQRUTZ0410-48-21K18:30:59 HCACL 2023-07-13 10:44:00 [id number]+ Fv3TgM 59mnyEPcFKj6EYdVMRmAzkkDE5Vh+[id number]:44 :00 [facility] ([facility])Hospitalist Progress NoteREPORT#:[id number] REPORT STATUS: SignedDATE:07/13/23 TIME: 1044 PATIENT: JOSEPH ROWLEY UNIT #: [id number]#: [id number] [address] [birth year] AGE: 68 SEX: F ATTEND: Cinthya Leiva MDA AUTHOR: Cinthya Leiva MD * ALL edits or amendments must be made on the electronic/computer document * SubjectiveChief complaint:CADHPI:She is feeling well Review of SystemsAll systems rev neg: except as noted Objective GeneralVS/I O:Vital Signs: Date Time Temp Pulse Resp B/P B/P Pulse O2 O2 Flow FiO2 Mean Ox Delivery Rate 07/13 0703 36.5 72 20 124/58 0.0 100 Room air 07/13 0356 36.6 73 14 107/54 0.0 97 Room air 07/13 0201 86 101/65 78 97 07/13 0007 38.7 93 14 116/44 0.0 96 Room air 07/13 0003 96 07/12 2230 97 22 152/71 97 98 07/12 2215 87 19 134/62 89 96 07/12 2200 36.5 86 16 126/50 07/12 2200 91 20 126/58 83 97 07/12 2145 92 22 117/54 78 98 07/120 97 20 117/57 82 98 07/12 2115 99 22 118/55 79 99 07/12 2100 90 21 143/64 92 99 07/125 89 19 148/60 87 100 07/12 2032 96 28 149/67 97 99 07/12 2015 95 21 109/58 80 100 07/12 2001 94 22 106/58 77 99 07/127 92 22 140/56 80 100 07/12 1933 90 25 131/66 81 100 07/12 1925 88 18 100 07/12 1922 36.6 91 14 131/55 0.0 100 Room air 07/12 1920 91 25 131/55 79 100 07/12 1916 87 20 146/56 81 100 07/12 1900 87 28 121/55 79 100 07/12 1845 84 23 120/54 78 100 07/12 1830 82 23 137/55 79 100 07/12 1825 82 31 100 07/12 1815 81 26 148/59 85 100 07/12 1810 81 23 131/53 77 100 07/12 1745 74 30 97/44 64 100 07/12 1730 73 23 91/41 53 99 07/12 1725 74 20 98 07/12 1716 75 23 99/52 75 99 07/12 1715 36.6 75 20 99/52 07/12 1702 78 27 105/55 72 99 07/12 1625 83 27 119/56 80 100 24 hour I O ending at 0700: 07/13 0700 07/12 1900 Intake Total Output Total 2600 Balance -2600 Number 2 Bowel Movements Output, 2500 Hemodialysis Output, Urine 100 Patient 57.1 kg Weight Weight Standing scale Measurement Method PATIENT WEIGHT: Weight (lb): 125Weight (oz): 14.14Weight (kg): 57.100 Medications:Active Meds + DC'd Last 24 HrsAspirin (ASPIRIN) 81 MG DAILY PO Midodrine (PROAMATINE) 5 MG 0800,1200,1600 PO Acetaminophen (TYLENOL) 650 MG Q6H PRN PRN PO Clindamycin Phosphate/Dextrose (Clindamycin 600 MG/D5W 50 ML) 50 ML Q8H IV Atorvastatin Calcium (LIPITOR) 40 MG BEDTIME PO Famotidine (PEPCID) 40 MG BEDTIME PO (DC) Famotidine (PEPCID) 40 MG BEDTIME PO (CAN) Midodrine (PROAMATINE) 5 MG STAT STA PO (DC) Bumetanide (BUMEX) 2 MG BID 9A 5P PO (CAN) Albumin Human (ALBUMINAR-25%) 12.5 GM ASDIR PRN IV Heparin Sodium (Porcine) (HEPARIN SODIUM) 3,000 UNIT ASDIR PRN DIALYSIS Lidocaine HCl (LIDOCAINE HCL/PF) 0.5 ML ASDIR PRN I-DERMAL (CKD) Mannitol (Mannitol 20%) 12.5 GM ASDIR PRN IV Sodium Chloride (SODIUM CHLORIDE 0.9%) 2,000 ML ASDIR PRN IV Sodium Chloride (SODIUM CHLORIDE) 5 ML ASDIR PRN IV Sodium Chloride (SODIUM CHLORIDE) 10 ML ASDIR PRN IV Sodium Chloride (SODIUM CHLORIDE 0.9%) 250 ML ASDIR PRN IV Atropine Sulfate (ATROPINE SULFATE 0.1MG/ML SYR) 0 .STK-MED ONE IV (DC) Atropine Sulfate (ATROPINE SULFATE 0.1MG/ML SYR) 0.5 MG ASDIR PRN IV Sodium Chloride (SODIUM CHLORIDE 0.9%) 1,000 ML .[id number] IV (DC) Sodium Chloride (SODIUM CHLORIDE 0.9%) 500 ML ASDIR PRN IV Heparin Sodium/Sodium Chloride (HEPARIN 1,000 UNITS/NS 500ML) 500 ML .STK-MED ONE IV (DC) Lidocaine HCl (LIDOCAINE HCL/PF) 0 .STK-MED ONE .ROUTE (DC) Heparin Sodium/Sodium Chloride (HEPARIN 2,000 UNITS/NS 1,000mL) 1,000 ML .STK-MED ONE IV (DC) Iopamidol (ISOVUE-370 100ML) 0 .STK-MED ONE IV (DC) Fentanyl Citrate (SUBLIMAZE) 0 .STK-MED ONE IV (DC) Midazolam HCl (VERSED) 0 .STK-MED ONE IV (DC) Heparin Sodium (HEPARIN SODIUM) 0 .STK-MED ONE .ROUTE (DC) Nitroglycerin/Dextrose (NITROGLYCERIN 50,000MCG/D5W 250ML) 250 ML .STK-MED ONE IV (DC) Verapamil HCl (ISOPTIN) 0 .STK-MED ONE IV (DC) Physical ExamNeck: full range of motionCardiovascular: normal capillary refill, normal heart sounds, regular rate rhythmRespiratory: aerating well, clear to auscultation, symmetric expansion, no distressAbdomen: non-tender, normal bowel sounds, soft, no distentionNeuro/CREDENTIALS SPECIALIST: alert, oriented X 3Ulcer: Type/cause: diabetic (right heel ulcer), arterial ResultsFindings/Data:Laboratory Tests 07/12 1802 Chemistry Sodium (134 - 147 mEq/L) 133 L Potassium (3.4 - 5.0 mEq/L) 3.5 Chloride (100 - 108 mEq/L) 99 L Carbon Dioxide (21 - 33 mEq/l) 25 Anion Gap (0 - 20) 13 BUN (7 - 25 mg/dL) 52 H Creatinine (0.6 - 1.3 mg/dL) 3.4 H Glomerular Filtr Rate (80 - 90) 14.3 L Glucose (77 - 141 mg/dL) 149 H Calcium (8.0 - 10.5 mg/dL) 9.2 Laboratory Tests 07/12 07/12 1356 1232 Coagulation Activated Coag Time (74 - 137 SEC) 119 161 H Laboratory Tests 07/13 0426 Hematology WBC (4.5 - 11.0 x10 3/uL) 13.6 H RBC (3.54 - 5.02 x10 6/uL) 2.68 L Hgb (11.0 - 15.0 g/dL) 9.0 L Hct (33.0 - 45.0 %) 28.2 L MCV (81.0 - 99.0 fL) 105.2 H MCH (27.0 - 33.0 pg) 33.6 H MCHC (33.0 - 37.0 g/dL) 31.9 L RDW (11.5 - 14.5 %) 16.0 H Plt Count (150 - 400 x10 3/uL) 351 MPV (7.0 - 9.0 fL) 11.2 H Neut % (Auto) (56.0 - 77.0 %) 81.7 H Lymph % (Auto) (14.0 - 32.0 %) 9.0 L [place] % (Auto) (4.8 - 9.0 %) 8.5 Eos % (Auto) (0.3 - 3.7 %) 0.1 L Baso % (Auto) (0.0 - 2.0 %) 0.1 Neut # (Auto) (2.0 - 7.6 x10 3/uL) 11.07 H Lymph # (Auto) (1.0 - 3.8 x10 3/uL) 1.22 [place] # (Auto) (0.1 - 0.8 x10 3/uL) 1.15 H Eos # (Auto) (0.0 - 0.2 x10 3/uL) 0.01 Baso # (Auto) (0.0 - 0.2 x10 3/uL) 0.02 Abs Immat Gran (auto) (0.00 - 0.03 x10 3/uL) 0.08 H Add Manual Diff NO Immature Gran % (0.0 - 2.0 %) 0.6 Nucleated RBC % (0 - 0 %) 0.0 Nucleated RBCs # (Man) (0.0 - 0.1 x10 3/uL) 0.00 Laboratory Tests 07/12 1802 Serology Hepatitis A IgM Ab (NON REACT. INDEX) NON REACTIVE Hep Bs Antigen (NonReactive INDEX) NON REACTIVE Hep B Core IgM Ab (NON REACT. INDEX) NON REACTIVE Hepatitis C Antibody (NON REACT. INDEX) NON REACTIVE Laboratory Tests 07/13 0104 Urines Urine Color (YEL/STRAW) YELLOW Urine Appearance (CLEAR) CLOUDY H Urine pH (5.0 - 7.0) 6.0 Ur Specific [place] (1.005 - 1.030) 1.010 Urine Protein (NEGATIVE) 3+ H Urine Glucose (UA) (NEGATIVE) NEGATIVE Urine Ketones (NEGATIVE) NEGATIVE Urine Blood (NEGATIVE) 4+ H Urine Nitrite (NEGATIVE) NEGATIVE Urine Bilirubin (NEGATIVE) NEGATIVE Urine Urobilinogen (0.2 - 1.0 mg/dL) 0.2 Ur Leukocyte Esterase (NEGATIVE) 3+ H Urine RBC (0 - 3 RBC/HPF) 21-50 Urine WBC (0 - 3 WBC/HPF) >50 H Ur Squamous Epith Cells (NONE SEEN /HPF) 0-5 Urine Bacteria (NONE SEEN /HPF) TRACE Radiology data:Recent Impressions:ULTRASOUND - DUP VEIN SHEKHAR 07/13 656 Report Impression - Status: SIGNED Entered: 07/13/2023 0719 IMPRESSION: Greater saphenous vein is patent. Vein mapping as described. Impression By: [id number] - Leonardo Martell M.D.ULTRASOUND - DUP EXTRACRANIAL SHEKHAR 07/13 656 Report Impression - Status: SIGNED Entered: 07/13/2023 0948 IMPRESSION:1. No ultrasound evidence for hemodynamically significant stenosis to either carotid artery.Consensus panel Doppler US criteria for diagnosis of ICA stenosis:Stenosis (%) ICA PSV (cm/sec) ICA/CCA ratio <50 <180 <2.050-69 180-230 2.0-4.0>70 but less than >230 >4.0 near occlusionNear occlusion High, low, or Variable undetectableImpression By: [email or web address] Ozzy Liao M.D. Diagnosis, Assessment Plan Free Text DxA P NotesFree text DxA P notes:68-year-old female with a past medical history of type 1 diabetes from the age of 46 years old, end-stage renal disease, on dialysis since July 2022, hypertension who presented to her inventory management specialist for evaluation of bilateral nonhealing ulcerations of her bilateral heels for the past 3 months, and shortness of breath with exertion. Left heart catheterization showed significant for severe three-vessel coronary artery disease with severe bilateral occluded SFAs of the lower extremity. Issues as below. Severe three-vessel CADSevere peripheral vascular diseaseDiabetes mellitusEnd-stage renal failure on hemodialysis Nonhealing bilateral heel ulcerationsHypertensionHyperlipidemiaCHF Documented EF 20-25% in the outpatient setting . Mitral valve regurgitation Noted to be severe on echocardiogram from March 2023 in the outpatient setting Plan plan and recommendations Patient admitted into medicineVital signs every 4PatientAntiplatelets and statin per cardiologySeen by vascular surgery" CT surgery. Nephrology for hemodialysis. Will do basic lab work include CBC BMP now. Patient is not having significant hypoxia at this timeDVT prophylaxisRestart home medicationsDiscussed management plan in detail with patient's family. 07/13/[address] surgery and vascular surgery plansHemodialysis was done yesterdayHemodialysis per nephrologyMonitor renal functionBlood sugar control with insulin pump. at 1044 [facility] #:[id number] OF REPORTPRProgress [id number]:44:00G.[id number] ailable for patient fvztMHEPHPHLWRVSKF0800-94-37T44:45:20 HCACL 2023-07-13 07:38:00 [id number] eWUUy5 gViAO[id number]:38 :00 [facility] ([facility])Cardiology Progress NoteREPORT#:[id number] REPORT STATUS: SignedDATE:07/13/23 TIME: 07 PATIENT: JOSEPH ROWLEY UNIT #: [id number]#: [id number] [address] [birth year] AGE: 68 SEX: F ATTEND: Tanvir Prasad MDADM AUTHOR: Yue Barragan AGACNP * ALL edits or amendments must be made on the electronic/computer document * Yue Barragan 07/13/23 0738:SubjectivePatient reports:No: complaints. Review of SystemsRespiratory:Denies: SOB. Cardiovascular:Denies: chest pain. Objective GeneralVS/I O:24 hour I O ending at 0700: 07/13 0700 07/12 1900 Intake Total Output Total 2600 Balance -2600 Number 2 Bowel Movements Output, 2500 Hemodialysis Output, Urine 100 Patient 57.1 kg Weight Weight Standing scale Measurement MethodVital Signs Date Temp Pulse Resp B/P B/P Mean Pulse Ox FiO2 07/12-07/13 36.0-38.7 72-99 14-31 91-152/41-71 0.0-97 96-100 PATIENT WEIGHT: Weight (lb): 125Weight (oz): 14.14Weight (kg): 57.100 Medications:Active Meds + DC'd Last 24 HrsAspirin (ASPIRIN) 81 MG DAILY PO Midodrine (PROAMATINE) 5 MG 0800,1200,1600 PO Acetaminophen (TYLENOL) 650 MG Q6H PRN PRN PO Clindamycin Phosphate/Dextrose (Clindamycin 600 MG/D5W 50 ML) 50 ML Q8H IV Atorvastatin Calcium (LIPITOR) 40 MG BEDTIME PO Famotidine (PEPCID) 40 MG BEDTIME PO (DC) Famotidine (PEPCID) 40 MG BEDTIME PO (CAN) Midodrine (PROAMATINE) 5 MG STAT STA PO (DC) Bumetanide (BUMEX) 2 MG BID 9A 5P PO (CAN) Albumin Human (ALBUMINAR-25%) 12.5 GM ASDIR PRN IV Heparin Sodium (Porcine) (HEPARIN SODIUM) 3,000 UNIT ASDIR PRN DIALYSIS Lidocaine HCl (LIDOCAINE HCL/PF) 0.5 ML ASDIR PRN I-DERMAL (CKD) Mannitol (Mannitol 20%) 12.5 GM ASDIR PRN IV Sodium Chloride (SODIUM CHLORIDE 0.9%) 2,000 ML ASDIR PRN IV Sodium Chloride (SODIUM CHLORIDE) 5 ML ASDIR PRN IV Sodium Chloride (SODIUM CHLORIDE) 10 ML ASDIR PRN IV Sodium Chloride (SODIUM CHLORIDE 0.9%) 250 ML ASDIR PRN IV Atropine Sulfate (ATROPINE SULFATE 0.1MG/ML SYR) 0 .STK-MED ONE IV (DC) Atropine Sulfate (ATROPINE SULFATE 0.1MG/ML SYR) 0.5 MG ASDIR PRN IV Sodium Chloride (SODIUM CHLORIDE 0.9%) 1,000 ML .[id number] IV (DC) Sodium Chloride (SODIUM CHLORIDE 0.9%) 500 ML ASDIR PRN IV Heparin Sodium/Sodium Chloride (HEPARIN 1,000 UNITS/NS 500ML) 500 ML .STK-MED ONE IV (DC) Lidocaine HCl (LIDOCAINE HCL/PF) 0 .STK-MED ONE .ROUTE (DC) Heparin Sodium/Sodium Chloride (HEPARIN 2,000 UNITS/NS 1,000mL) 1,000 ML .STK-MED ONE IV (DC) Iopamidol (ISOVUE-370 100ML) 0 .STK-MED ONE IV (DC) Fentanyl Citrate (SUBLIMAZE) 0 .STK-MED ONE IV (DC) Midazolam HCl (VERSED) 0 .STK-MED ONE IV (DC) Heparin Sodium (HEPARIN SODIUM) 0 .STK-MED ONE .ROUTE (DC) Nitroglycerin/Dextrose (NITROGLYCERIN 50,000MCG/D5W 250ML) 250 ML .STK-MED ONE IV (DC) Verapamil HCl (ISOPTIN) 0 .STK-MED ONE IV (DC) Physical ExamGeneral appearance: alert, awake, orientedNeck: non-tender, no JVDCardiovascular: CV assessment: regular rate and rhythm Murmur assessment:heart murmurRespiratory: clear to auscultation, no distressAbdomen: soft, non-tender, normal bowel sounds, no distentionGenitourinary: no flank pain, no urinary catheterLower extremity: LE assessment: abnormal pedal pulse, abnormal peripheral pulseMusculoskeletal: normal inspectionNeuro/CREDENTIALS SPECIALIST: alert, oriented X 3, normal speechSkin: right heel ulcerUlcer: Type/cause: diabetic (right heel ulcer), arterialPsychiatry: normal affect, normal mood ResultsFindings/Data:Laboratory Tests 07/12 07/12 1802 0834 Chemistry Sodium (134 - 147 mEq/L) 133 L Potassium (3.4 - 5.0 mEq/L) 3.5 Chloride (100 - 108 mEq/L) 99 L Carbon Dioxide (21 - 33 mEq/l) 25 Anion Gap (0 - 20) 13 BUN (7 - 25 mg/dL) 52 H Creatinine (0.6 - 1.3 mg/dL) 3.4 H Glomerular Filtr Rate (80 - 90) 14.3 L Glucose (77 - 141 mg/dL) 149 H POC Glucose (70 - 110 MG/DL) 164 H Calcium (8.0 - 10.5 mg/dL) 9.2 Laboratory Tests 07/12 07/12 1356 1232 Coagulation Activated Coag Time (74 - 137 SEC) 119 161 H Laboratory Tests 07/13 0426 Hematology WBC (4.5 - 11.0 x10 3/uL) 13.6 H RBC (3.54 - 5.02 x10 6/uL) 2.68 L Hgb (11.0 - 15.0 g/dL) 9.0 L Hct (33.0 - 45.0 %) 28.2 L MCV (81.0 - 99.0 fL) 105.2 H MCH (27.0 - 33.0 pg) 33.6 H MCHC (33.0 - 37.0 g/dL) 31.9 L RDW (11.5 - 14.5 %) 16.0 H Plt Count (150 - 400 x10 3/uL) 351 MPV (7.0 - 9.0 fL) 11.2 H Neut % (Auto) (56.0 - 77.0 %) 81.7 H Lymph % (Auto) (14.0 - 32.0 %) 9.0 L [place] % (Auto) (4.8 - 9.0 %) 8.5 Eos % (Auto) (0.3 - 3.7 %) 0.1 L Baso % (Auto) (0.0 - 2.0 %) 0.1 Neut # (Auto) (2.0 - 7.6 x10 3/uL) 11.07 H Lymph # (Auto) (1.0 - 3.8 x10 3/uL) 1.22 [place] # (Auto) (0.1 - 0.8 x10 3/uL) 1.15 H Eos # (Auto) (0.0 - 0.2 x10 3/uL) 0.01 Baso # (Auto) (0.0 - 0.2 x10 3/uL) 0.02 Abs Immat Gran (auto) (0.00 - 0.03 x10 3/uL) 0.08 H Add Manual Diff NO Immature Gran % (0.0 - 2.0 %) 0.6 Nucleated RBC % (0 - 0 %) 0.0 Nucleated RBCs # (Man) (0.0 - 0.1 x10 3/uL) 0.00 Laboratory Tests 07/12 1802 Serology Hepatitis A IgM Ab (NON REACT. INDEX) NON REACTIVE Hep Bs Antigen (NonReactive INDEX) NON REACTIVE Hep B Core IgM Ab (NON REACT. INDEX) NON REACTIVE Hepatitis C Antibody (NON REACT. INDEX) NON REACTIVE Laboratory Tests 07/13 0104 Urines Urine Color (YEL/STRAW) YELLOW Urine Appearance (CLEAR) CLOUDY H Urine pH (5.0 - 7.0) 6.0 Ur Specific [place] (1.005 - 1.030) 1.010 Urine Protein (NEGATIVE) 3+ H Urine Glucose (UA) (NEGATIVE) NEGATIVE Urine Ketones (NEGATIVE) NEGATIVE Urine Blood (NEGATIVE) 4+ H Urine Nitrite (NEGATIVE) NEGATIVE Urine Bilirubin (NEGATIVE) NEGATIVE Urine Urobilinogen (0.2 - 1.0 mg/dL) 0.2 Ur Leukocyte Esterase (NEGATIVE) 3+ H Urine RBC (0 - 3 RBC/HPF) 21-50 Urine WBC (0 - 3 WBC/HPF) >50 H Ur Squamous Epith Cells (NONE SEEN /HPF) 0-5 Urine Bacteria (NONE SEEN /HPF) TRACE Radiology data:Recent Impressions:ULTRASOUND - DUP VEIN SHEKHAR 07/13 0656 Report Impression - Status: SIGNED Entered: 07/13/2023 6700 IMPRESSION: Greater saphenous vein is patent. Vein mapping as described. Impression By: Elpidio Martell M.D. Telemetry Interpretation:sinus rhythm Diagnosis, Assessment PlanPlan discussed with: patient, healthcare power of atty, family, admitting physician, collaborating MD, consultants Free Text DxA P NotesFree Text DxA P Notes:68 YO female with MHx of IDDM on insulin pump, nonhealing foot ulcers, ESRD on HD MWF, recent diagnosis of severe cardiomyopathy, HFrEF with LVEF of 25% as well as severe MR. She had elective coronary and peripheral angiogram today, which revealed multivessel CAD and severe bilateral PAD. Vascular surgery and cardiothoracic surgery has been consulted. History provided by the patient and supplemented by niece who is the MPOA. 1. Multivessel CAD* CTS workup onging for CABG plus MVR* Aspirin, statin* extremely elevated STS risk score about 50%* CTA head, neck, abdomen, pelvis to evaluate subclavian artery, carotid arteries, mesenteric arteries* case will be presented at the CV high risk conference on Tuesday 2. Severe PAD with nonhealing foot ulcers* Vascular surgery recommendation noted 3. Mitral regurgitation* CTS eval for MVR* repeat echo with contrast 4. Ischemic cardiomyopathy/HFrEF* volume management per HD* on midodrine d/t chronic hypotension* no ACEI or ARB d/t chronic hypotension requiring midodrine 5. ESRD - on HD* nephrology following 6. IDDM* per primary team Case discussed in depth with patient, niece (MPOA), spouse. MDM by Dr. Pak. Kimberly Pak 07/15/23 1706:Attestations Physician AttestationAgree w/findings plan:I have seen and examined the pt, I Agree with the findings and plan as documented by Yue Barragan. Patient with diabetes type 1 for 60 years, end-stage renal disease on hemodialysis for about 9 months, extensive peripheral arterial disease includingoccluded iliac arteries and common femoral arteries, severely reduced ejection fraction with moderate to severe MR. Patient STS is very high and she is extreme high risk/prohibitive risk for surgery. We will need to check viability, will do JULIA for persistent MR severity and discussed in the complex coronary conference for revascularization options. at 1417 at 1711 [facility] #:[id number] OF REPORTPRProgress [id number]:38:00G.[id number] ailable for patient ijpxZQZPBBNPORUFCO6315-11-12C93:17:25 HCACL 2023-07-12 17:23:00 [id number] [facility] [id number]+YZWhiOTNLe2442-19-80I77:23 :00 [facility])Nephrology Consultation NoteREPORT#:[id number] REPORT STATUS: SignedDATE:07/12/23 TIME: 1723 PATIENT: JOSEPH ROWLEY UNIT #: [id number]#: [id number] [address] [birth year] AGE: 68 SEX: F ATTEND: Cinthya Leiva [facility] AUTHOR: Winnie Noyola MD * ALL edits or amendments must be made on the electronic/computer document * History of Present IllnessReason for consult:ESRDHPI:Patient is a 68-year-old female with past medical history of ESRD on hemodialysis Tuesday, diabetes type 1 since she was 6 years old,hypotension was admitted after coronary angiogram as needing CABG. Last dialysis was Tuesday. Denies having any complaint. History - Adult longitudinalAdditional medical history:type 1 diabetes from the age of 46 years old, end-stage renal disease, on dialysis since July 2022, hypertensionFamily history:Denies: CAD < 40 yrs old. Additional family history:reviewed and is noncontributory.Alcohol use: Denies EtOH useDrug use: Denies recreational drugsSmoking status for patients 13 years old or older: Never SmokerAllergies:Coded Allergies:Sulfa (Sulfonamide Antibiotics) (Severe, rash 07/11/23)codeine (Intermediate, NAUSEA 07/11/23) Review of SystemsConstitutional:Denies: chills, fatigue, fever, generalized weakness, lethargy, malaise, recent wt loss, other. Skin:Denies: abrasion, bruising, contusion, diaphoresis, ecchymosis, itching, laceration, rash, swelling, other. Eyes:Denies: redness, discharge, visual loss/blurred, itching, diplopia, eye pain, photophobia, swelling, other. ENT:Denies: ear drainage, ear ringing, earache, hearing loss, mouth pain, nasal congestion, nose bleeding, sinus problem, sore throat, throat pain, throat swelling, tongue pain, tongue swelling, toothache, voice change, other. Respiratory:Denies: VICENTE (dyspnea on exertion), hemoptysis, non productive cough, parox nocturnal dyspnea, pleurisy, pleuritic pain, pneumonia, productive cough (sputum), SOB, wheezing, other. Cardiovascular:Denies: chest pain, VICENTE (dyspnea on exertion), edema, orthopnea, palpitations, parox nocturnal dyspnea, other. GI:Denies: abdominal pain, anorexia, constipation, diarrhea, dysphagia, GERD, hematemesis, hematochezia, hiatal hernia, melena, nausea, rectal pain, vomiting,other. :Denies: dysuria, flank pain, frequency, hematuria, nocturia, pelvic pain, , urgency, urinary retention, vaginal bleeding, vaginal discharge, other. Endocrine:Denies: cold intolerance, heat intolerance, polydipsia, polyphagia, polyuria, weight gain, weight loss, other. Neuro:Denies: bladder dysfunction, bowel dysfunction, change in LOC, confusion, dizziness, focal weakness, gait problem, headache, lightheaded, numbness, seizure, slurred speech, spinning sensation, syncope, unable to speak, vision change, weakness, other. Objective GeneralVS/I O:Vital Signs: Date Time Temp Pulse Resp B/P B/P Pulse O2 O2 Flow FiO2 Mean Ox Delivery Rate 07/12 1716 75 23 99/52 75 99 07/12 1702 78 27 105/55 72 99 07/12 1625 83 27 119/56 80 100 24 hour I O ending at 0700: 07/12 0700 07/11 1900 Intake Total Output Total Balance Patient 57.273 kg Weight Weight Standing scale Measurement Method PATIENT WEIGHT: Weight (lb): 126Weight (oz): 4.25Weight (kg): 57.273 Medications:Active Meds + DC'd Last 24 HrsAspirin (ASPIRIN) 81 MG DAILY PO Midodrine (PROAMATINE) 5 MG 0800,1200,1600 PO Atorvastatin Calcium (LIPITOR) 40 MG BEDTIME PO Famotidine (PEPCID) 40 MG BEDTIME PO (DC) Famotidine (PEPCID) 40 MG BEDTIME PO (CAN) Bumetanide (BUMEX) 2 MG BID 9A 5P PO (CAN) Albumin Human (ALBUMINAR-25%) 12.5 GM ASDIR PRN IV Heparin Sodium (Porcine) (HEPARIN SODIUM) 3,000 UNIT ASDIR PRN DIALYSIS Lidocaine HCl (LIDOCAINE HCL/PF) 0.5 ML ASDIR PRN I-DERMAL (CKD) Mannitol (Mannitol 20%) 12.5 GM ASDIR PRN IV Sodium Chloride (SODIUM CHLORIDE 0.9%) 2,000 ML ASDIR PRN IV Sodium Chloride (SODIUM CHLORIDE) 5 ML ASDIR PRN IV Sodium Chloride (SODIUM CHLORIDE) 10 ML ASD[facility] PRN IV Sodium Chloride (SODIUM CHLORIDE 0.9%) 250 ML [facility] PRN IV Atropine Sulfate (ATROPINE SULFATE 0.1MG/ML SYR) 0 .STK-MED ONE IV (DC) Atropine Sulfate (ATROPINE SULFATE 0.1MG/ML SYR) 0.5 MG ASDIR PRN IV Sodium Chloride (SODIUM CHLORIDE 0.9%) 1,000 ML .[id number] IV Sodium Chloride (SODIUM CHLORIDE 0.9%) 500 ML [facility] PRN IV Heparin Sodium/Sodium Chloride (HEPARIN 1,000 UNITS/NS 500ML) 500 ML .STK-MED ONE IV (DC) Lidocaine HCl (LIDOCAINE HCL/PF) 0 .STK-MED ONE .ROUTE (DC) Heparin Sodium/Sodium Chloride (HEPARIN 2,000 UNITS/NS 1,000mL) 1,000 ML .STK-MED ONE IV (DC) Iopamidol ([id number] 100ML) 0 .STK-MED ONE IV (DC) Fentanyl Citrate (SUBLIMAZE) 0 .STK-MED ONE IV (DC) Midazolam HCl (VERSED) 0 .STK-MED ONE IV (DC) Heparin Sodium (HEPARIN SODIUM) 0 .STK-MED ONE .ROUTE (DC) Nitroglycerin/Dextrose (NITROGLYCERIN 50,000MCG/D5W 250ML) 250 ML .STK-MED ONE IV (DC) Verapamil HCl (ISOPTIN) 0 .STK-MED ONE IV (DC) Physical ExamGeneral appearance: alert, awake, orientedHead/eyes: atraumatic, normocephalic, PERRLANeck: no JVD, no lymphadenopathyCardiovascular: normal heart sounds, regular rate and rhythm, no murmur, no rubRespiratory: aerating well, clear to auscultation, normal breath sounds, symmetric expansion, no distressAbdomen: non-tender, normal bowel sounds, soft, no reboundExtremities: pitting edema, no gangreneNeuro/CREDENTIALS SPECIALIST: alert, oriented X 3, CN II-XII intact, normal speech ResultsFindings/Data:Laboratory Tests 07/12 0834 Chemistry POC Glucose (70 - 110 MG/DL) 164 H Laboratory Tests 07/12 07/12 1356 1232 Coagulation Activated Coag Time (74 - 137 SEC) 119 161 H Diagnosis, Assessment Plan Free Text DxA P NotesFree text DxA P notes:1. ESRD continue with TTS dialysis this week and then switch her back to Tuesday next week. HD today. 2. Hypotension restart midodrine tonight 3. Coronary disease needs CABG, CT surgery consulted 4. Diabetes type 1 prior primary team 5. Anemia of CKD check lab and start MATT if hemoglobin less than 10 Discussed with and daughter at bedside Thank you for the consult at 1728 RPT #:[id number] OF REPORTAZYehljqlyxvzw3627-07-84H56:23:00G.PD [id number] for patient xqaqHCFWHLYEGPMPKX4703-68-23F31:29:09 [facility] 2023-07-12 15:21:00 [id number]//5vdX tcOF2g xNfC3iegblnBuut6T5igpuDFou/Nfd5001-82-77E80:21 :00 [facility] ([facility])Vascular Surgery Consult NoteREPORT#:[id number] REPORT STATUS: SignedDATE:07/12/23 TIME: 152 PATIENT: JOSEPH RWOLEY UNIT #: [id number]#: [id number] [address]DOB: [birth year] AGE: 68 SEX: F ATTEND: Cinthya Leiva [facility] AUTHOR: Luis Carlos Huggins MD * ALL edits or amendments must be made on the electronic/computer document * History of Present IllnessRequesting Clinician: Dr. Leone for consult:Severe bilateral aortolilic and peripheral arterial disease, bilateral heel ulcersChief complaint:shortness of breath, vicente, heel ulcersHPI:68-year-old female with a past medical history of type 1 diabetes from the age of 46 years old, end-stage renal disease, on dialysis since July 2022, hypertension, mitral valve regurgitation, presented to her inventory management specialist for evaluation of nonhealing ulcerations of her bilateral heels for the past 3 months, and shortness of breath with exertion. Her last echocardiogram was completed with her inventory management specialist showing an EF 20-25%with mild LVH, severe global hypokinesis, mildly dilated left atrium with moderate aortic sclerosis without stenosis, mitral valve leaflets mildly thickened with severe MR, mild to moderate TR, moderate pulmonary hypertension with an RV systolic pressure 62 mmHg. Patient underwent left heart catheterization today and was found to have severe three-vessel coronary artery disease, with distal a.ortic stenosis, bilateral common iliac artery stenosis, bilateral external iliac artery occlusion and common femoral artery and bilateral superficial femoral artery occlusions of thelower extremity. CV surgery consulted for evaluation for coronary artery bypass graft surgery History - Adult longitudinalSmoking status for patients 13 years old or older: Never SmokerMedications:Home Medications: Medication Dose/Rte/Freq Days Qty Entered Last Max Daily Dose Reviewed BUMETANIDE (BUMEX) 2 MG PO BID 07/11/23 Strength: 2 MG TAB 1151 ASPIRIN EC (ECOTRIN) 81 MG PO DAILY 07/11/23 Strength: 81 MG TAB.EC 1151 MIDODRINE (PROAMATINE) 5 MG PO TID 07/11/23 Strength: 5 MG TAB 1151 ATORVASTATIN (LIPITOR) 40 MG PO BEDTIME 07/11/23 Strength: 40 MG TAB 1151 FAMOTIDINE (PEPCID) 40 MG PO BEDTIME 07/11/23 Strength: 40 MG TAB 1151 [INSULIN PUMP] 07/11/23 Strength: 1152 Current Hospital Medications:Autonomic Drugs Sig/Stephan Start time Last Medication Dose Route Stop Time Status Admin Midodrine 5 MG 0800,1200,1600 07/13 0800 AC (PROAMATINE) PO 08/12 0759 Atropine Sulfate 0 .STK-MED ONE 07/12 1400 DC (ATROPINE SULFATE IV 0.1MG/ML SYR) Atropine Sulfate 0.5 MG ASDIR PRN 07/12 1215 AC (ATROPINE SULFATE IV 07/13 1206 0.1MG/ML SYR) Blood Formation,Coagulation Sig/Stephan Start time Last Medication Dose Route Stop Time Status Admin Heparin Sodium/ 500 ML .STK-MED ONE 07/12 1134 DC 07/12 Sodium Chloride IV 1139 (HEPARIN 1,000 UNITS/ NS 500ML) Heparin Sodium/ 1,000 ML .STK-MED ONE 07/12 1133 DC 07/12 Sodium Chloride IV 1139 (HEPARIN 2,000 UNITS/ NS 1,000mL) Heparin Sodium 0 .STK-MED ONE 07/12 1047 DC 07/12 (HEPARIN SODIUM) .ROUTE 1132 Cardiovascular Drugs Sig/Stephan Start time Last Medication Dose Route Stop Time Status Admin Atorvastatin Calcium 40 MG BEDTIME 07/12 2100 AC (LIPITOR) PO 08/11 2059 Lidocaine HCl 0 .STK-MED ONE 07/12 1134 DC 07/12 (LIDOCAINE HCL/PF) .ROUTE 1139 Nitroglycerin/ 250 ML .STK-MED ONE 07/12 1047 DC 07/12 Dextrose IV 1132 (NITROGLYCERIN 50,000MCG/D5W 250ML) Verapamil HCl 0 .STK-MED ONE 07/12 1047 DC 07/12 (ISOPTIN) IV 1132 Central Nervous System Agents Sig/Stephan Start time Last Medication Dose Route Stop Time Status Admin Aspirin 81 MG DAILY 07/13 0900 AC (ASPIRIN) PO 08/12 0859 Fentanyl Citrate 0 .STK-MED ONE 07/12 1102 DC (SUBLIMAZE) IV Midazolam HCl 0 .STK-MED ONE 07/12 1102 DC (VERSED) IV Diagnostic Agents Sig/Stephan Start time Last Medication Dose Route Stop Time Status Admin Iopamidol 0 .STK-MED ONE 07/12 1133 DC 07/12 (ISOVUE-370 100ML) IV 1139 Electrolytic, Caloric, And Tyree Sig/Stephan Start time Last Medication Dose Route Stop Time Status Admin Bumetanide 2 MG BID 9A 5P 07/12 1700 CAN (BUMEX) PO 08/11 1659 Sodium Chloride 1,000 ML .[id number] 07/12 1215 AC (SODIUM CHLORIDE IV 07/13 0134 0.9%) Sodium Chloride 500 ML ASDIR PRN 07/12 1215 AC (SODIUM CHLORIDE IV 07/13 1206 0.9%) Gastrointestinal Drugs Sig/Stephan Start time Last Medication Dose Route Stop Time Status Admin Famotidine 40 MG BEDTIME 07/12 2100 DC (PEPCID) PO 08/11 2059 Famotidine 40 MG BEDTIME 07/12 2100 CAN (PEPCID) PO 08/11 2059 Review of Systems:Constitutional: Negative for fever, chills, weight loss Skin positive for bilateral heel ulcersHEENT: Denies hearing loss denies any ear ringing denies any earache denies any sore throat denies any throat pain Respiratory: Positive for shortness of breath with exertionCardiac: Denies chest pain, denies palpitations denies orthopnea GI: Denies constipation denies diarrhea : Denies hematuria denies dysuria denies flank pain Musculoskeletal: Denies any joint pain denies any joint swelling denies any myalgia Hematologic: Denies any easy bruising, denies any bleeding Endocrine: Positive for type 1 diabetes since the age of 6Neurologic: Denies any lightheaded denies any headache denies any confusion denies any dizziness Allergies:Coded Allergies:Sulfa (Sulfonamide Antibiotics) (Severe, rash 07/11/23)codeine (Intermediate, NAUSEA 07/11/23) ObjectiveVS/I O:Last Documented: Result Date Time Pulse Ox 100 07/11 1111 B/P 127/58 07/11 1111 Temp 97.5 07/11 1111 Pulse 72 07/11 1111 24 hour I O ending at 0700: 07/12 0700 07/11 1900 Intake Total Output Total Balance Patient 57.273 kg Weight Weight Standing scale Measurement Method PATIENT WEIGHT: Weight (lb): 126Weight (oz): 4.25Weight (kg): 57.273 General: well nourished, well groomed, no acute distress. HEENT: conjunctiva clear, extraocular movement intact, PE, EOMINeck: no, JVD, trachea midline, no, lymphadenopathy, neck supple, normal ROM. Respiratory: Symmetrical chest rise, no distress. Cardiovascular: regular rate and rhythm, S1, S2, Abdomen: Soft, non tender. non distention Extremities: Bilateral heel dressing in placeMusculoskeletal: Full range of motion, no CVA tenderness, no muscle spasm Skin: warm, dry, no, lesions, rash. Neurologic: Alert and oriented x3. Psychiatric: affect and demeanor normal Findings/Data:Laboratory Tests 07/12 834 Chemistry POC Glucose (70 - 110 MG/DL) 164 H Laboratory Tests 07/12 07/12 1356 1232 Coagulation Activated Coag Time (74 - 137 SEC) 119 161 H Diagnosis, Assessment PlanProblem List/A P: 1. PAD (peripheral artery disease) 2. ESRD (end stage renal disease) on dialysis 3. Coronary artery disease 4. Mitral regurgitation 5. HFrEF (heart failure with reduced ejection fraction) Free Text A P:Patient is a poor endovascualr candidate with bilateral common femoral artery occlusion. Broad Top treatment would be aorto-bifemoral bypass with bilateral commonfemoral endarterectomies with possible popliteal bypass versus stent placement, however the patient has severe CAD and MVR making her high risk for anesthesia required. Her heel ulcers and ESRD increase morbifdity of CABG with cardiothoracic surgery on board for evaulation and management/recommendations. Consider bilateral bka as least morbid/mortal life-saving measure. Otherwise canattempt bilateral common femoral endarterectomy under local with sedation with retrograde aorto-ilic stent if possible and antegrade femoral stents for limb salvage with significant mortality risk. at 1601 RPT #:[id number] OF REPORTEQIzqdsaujyjfy4172-83-52U52:21:00G.PD [id number] for patient odueUNMMIVISDTSAAC1556-36-41O44:02:04 [facility] 2023-07-12 14:46:00 [id number]+sa5q6Ln D76yJ3 KyraeMRpW/JYpmXADH3gNnCOz1yg+9389-30-16C06:46 :00 [facility] ([facility]Hospital[facility] History PhysicalREPORT#:[id number] REPORT STATUS: SignedDATE:07/12/23 TIME: 1446 PATIENT: JOSEPH ROWLEY UNIT #: [id number]#: [id number] [address] [birth year] AGE: 68 SEX: F ATTEND: Cinthya Leiva MDADM AUTHOR: Cinthya Leiva MD * ALL edits or amendments must be made on the electronic/computer document * History of Present Illness HPIChief complaint:CADHPI:68-year-old female with a past medical history of type 1 diabetes from the age of 46 years old, end-stage renal disease, on dialysis since July 2022, hypertension who presented to her inventory management specialist for evaluation of bilateral nonhealing ulcerations of her bilateral heels for the past 3 months, and shortness of breath with exertion. Her last echocardiogram was completed with her inventory management specialist showing an EF 20-25%with mild LVH, severe global hypokinesis, mildly dilated left atrium with moderate aortic sclerosis without stenosis, mitral valve leaflets mildly thickened with severe MR, mild to moderate TR, moderate pulmonary hypertension with an RV systolic pressure 62 mmHg. Patient underwent left heart catheterization today and was found to have severe three-vessel coronary artery disease, with severe bilateral occluded SFAs of thelower extremity. History Past Medical Surgical HxAdditional medical history:type 1 diabetes from the age of 46 years old, end-stage renal disease, on dialysis since July 2022, hypertension Family HistoryAdditional family history:reviewed and is noncontributory. Social HistorySmoking status for patients 13 years old or older: Never Smoker Medication/Allergy-Vaccine HxAllergies:Coded Allergies:Sulfa (Sulfonamide Antibiotics) (Severe, rash 07/11/23)codeine (Intermediate, NAUSEA 07/11/23) Review of SystemsAll systems rev neg: except as noted OBJECTIVEVS/I O:Last Documented: Result Date Time Pulse Ox 100 07/11 1111 B/P 127/58 07/11 1111 Temp 36.4 07/11 1111 Pulse 72 07/11 1111 24 hour I O ending at 0700: 07/12 0700 07/11 1900 Intake Total Output Total Balance Patient 57.273 kg Weight Weight Standing scale Measurement Method Patient Weight and BMI Weight (kg): 57.273 BMI: 28.3 Medications:Active Meds + DC'd Last 24 HrsAspirin (ASPIRIN) 81 MG DAILY PO Midodrine (PROAMATINE) 5 MG 0800,1200,1600 PO Atorvastatin Calcium (LIPITOR) 40 MG BEDTIME PO Famotidine (PEPCID) 40 MG BEDTIME PO (DC) Famotidine (PEPCID) 40 MG BEDTIME PO (CAN) Bumetanide (BUMEX) 2 MG BID 9A 5P PO (CAN) Atropine Sulfate (ATROPINE SULFATE 0.1MG/ML SYR) 0 .STK-MED ONE IV (DC) Atropine Sulfate (ATROPINE SULFATE 0.1MG/ML SYR) 0.5 MG ASDIR PRN IV Sodium Chloride (SODIUM CHLORIDE 0.9%) 1,000 ML .[id number] IV Sodium Chloride (SODIUM CHLORIDE 0.9%) 500 ML ASDIR PRN IV Heparin Sodium/Sodium Chloride (HEPARIN 1,000 UNITS/NS 500ML) 500 ML .STK-MED ONE IV (DC) Lidocaine HCl (LIDOCAINE HCL/PF) 0 .STK-MED ONE .ROUTE (DC) Heparin Sodium/Sodium Chloride (HEPARIN 2,000 UNITS/NS 1,000mL) 1,000 ML .STK-MED ONE IV (DC) Iopamidol (ISOVUE-370 100ML) 0 .STK-MED ONE IV (DC) Fentanyl Citrate (SUBLIMAZE) 0 .STK-MED ONE IV (DC) Midazolam HCl (VERSED) 0 .STK-MED ONE IV (DC) Heparin Sodium (HEPARIN SODIUM) 0 .STK-MED ONE .ROUTE (DC) Nitroglycerin/Dextrose (NITROGLYCERIN 50,000MCG/D5W 250ML) 250 ML .STK-MED ONE IV (DC) Verapamil HCl (ISOPTIN) 0 .STK-MED ONE IV (DC) General appearance: alert, awakeNeck: full range of motionCardiovascular: normal capillary refill, normal heart sounds, regular rate rhythmRespiratory: aerating well, clear to auscultation, symmetric expansion, no distressAbdomen: non-tender, normal bowel sounds, soft, no distentionNeuro/CREDENTIALS SPECIALIST: alert, oriented X 3 ResultsFindings/Data:Laboratory Tests: 07/12 07/12 07/12 1356 1232 0834 Chemistry POC Glucose (70 - 110 MG/DL) 164 H Coagulation Activated Coag Time (74 - 137 SEC) 119 161 H Diagnosis, Assessment PlanFree Text A P:68-year-old female with a past medical history of type 1 diabetes from the age of 46 years old, end-stage renal disease, on dialysis since July 2022, hypertension who presented to her inventory management specialist for evaluation of bilateral nonhealing ulcerations of her bilateral heels for the past 3 months, and shortness of breath with exertion. Left heart catheterization showed significant for severe three-vessel coronary artery disease with severe bilateral occluded SFAs of the lower extremity. Issues as below. Severe three-vessel CADSevere peripheral vascular diseaseDiabetes mellitusEnd-stage renal failure on hemodialysis Nonhealing bilateral heel ulcerationsHypertensionHyperlipidemiaCHF Documented EF 20-25% in the outpatient setting . Mitral valve regurgitation Noted to be severe on echocardiogram from March 2023 in the outpatient setting Plan plan and recommendations Patient admitted into medicineVital signs every 4PatientAntiplatelets and statin per cardiologySeen by vascular surgery" CT surgery. Nephrology for hemodialysis. Will do basic lab work include CBC BMP now. Patient is not having significant hypoxia at this timeDVT prophylaxisRestart home medicationsDiscussed management plan in detail with patient's family. at 1609 RPT #:[id number] OF REPORTHPHistory and physical hjypeyrurcx5564-10-48J81:46:00G.[id number] 104AVAvailable for patient wtsyYUQKVILYRKIFPO0908-19-10U16:10:15 [facility] 2023-07-12 13:43:00 [id number]/4ppWzzQ+YM9RzvkQ p1Ndjo sUIFDIkqOGMP7DRwHQUeC5iL5whcQ53354-16-47L40:43 :00 [facility])Cardiology ConsultationREPORT#:[id number] REPORT STATUS: SignedDATE:07/12/23 TIME: 134 PATIENT: JOSEPH ROWLEY UNIT #: [id number]#: [id number] [place]OM[place] [facility] [place]DOB: [birth year] AGE: 68 SEX: F ATTEND: Tanvir Prasad MDADM AUTHOR: Yue Barragan AGACNP * ALL edits or amendments must be made on the electronic/computer document * Yue Barragan 07/12/23 1343:History of Present Illness HPIRequesting Clinician: Dr. Leone for consult:CAD, PAD, CHFChief complaint:Generalized weaknessa and nonhealing left foot ulcerPCP:PCP: Benito Nugent MD HPI:68 YO female with MHx of IDDM on insulin pump, nonhealing foot ulcers, ESRD on HD MWF, recent diagnosis of severe cardiomyopathy, HFrEF with LVEF of 25% as well as severe MR. She had elective coronary and peripheral angiogram today, which revealed multivessel CAD and severe bilateral PAD. Vascular surgery and cardiothoracic surgery has been consulted. History provided by the patient and supplemented by niece who is the MPOA.Hx Obtained From Patient, Family (MPOA - niece) History - Adult longitudinalAdditional medical history:1. IDDM - on insulin pump2. Hypertension3. ESRD on HD4. Nonhealing foot ulcers5. Severe cardiomyopathy6. Severe MRFamily history:Denies: CAD < 40 yrs old. Alcohol use: Denies EtOH useDrug use: Denies recreational drugsSmoking status for patients 13 years old or older: Former SmokerHome medications:Home Medications:BUMETANIDE (BUMEX) 2 MG PO BID ASPIRIN EC (ECOTRIN) 81 MG PO DAILY MIDODRINE (PROAMATINE) 5 MG PO TID ATORVASTATIN (LIPITOR) 40 MG PO BEDTIME FAMOTIDINE (PEPCID) 40 MG PO BEDTIME [INSULIN PUMP] Allergies:Coded Allergies:Sulfa (Sulfonamide Antibiotics) (Severe, rash 07/11/23)codeine (Intermediate, NAUSEA 07/11/23) Review of SystemsConstitutional:generalized weakness. Respiratory:Denies: SOB. Cardiovascular:Denies: chest pain. GI:Denies: abdominal pain, nausea, vomiting. :Denies: dysuria. Musculoskeletal:extremity pain. Neuro:Denies: dizziness. Objective GeneralVS/I O:24 hour I O ending at 0700: 07/12 0700 07/11 1900 Intake Total Output Total Balance Patient 57.273 kg Weight Weight Standing scale Measurement Method PATIENT WEIGHT: Weight (lb): 126Weight (oz): 4.25Weight (kg): 57.273 Medications:Active Meds + DC'd Last 24 HrsAspirin (ASPIRIN) 81 MG DAILY PO Midodrine (PROAMATINE) 5 MG 0800,1200,1600 PO Atorvastatin Calcium (LIPITOR) 40 MG BEDTIME PO Famotidine (PEPCID) 40 MG BEDTIME PO (DC) Famotidine (PEPCID) 40 MG BEDTIME PO (CAN) Bumetanide (BUMEX) 2 MG BID 9A 5P PO (CAN) Atropine Sulfate (ATROPINE SULFATE 0.1MG/ML SYR) 0 .STK-MED ONE IV (DC) Atropine Sulfate (ATROPINE SULFATE 0.1MG/ML SYR) 0.5 MG ASDIR PRN IV Sodium Chloride (SODIUM CHLORIDE 0.9%) 1,000 ML .[id number] IV Sodium Chloride (SODIUM CHLORIDE 0.9%) 500 ML ASDIR PRN IV Heparin Sodium/Sodium Chloride (HEPARIN 1,000 UNITS/NS 500ML) 500 ML .STK-MED ONE IV (DC) Lidocaine HCl (LIDOCAINE HCL/PF) 0 .STK-MED ONE .ROUTE (DC) Heparin Sodium/Sodium Chloride (HEPARIN 2,000 UNITS/NS 1,000mL) 1,000 ML .STK-MED ONE IV (DC) Iopamidol (ISOVUE-370 100ML) 0 .STK-MED ONE IV (DC) Fentanyl Citrate (SUBLIMAZE) 0 .STK-MED ONE IV (DC) Midazolam HCl (VERSED) 0 .STK-MED ONE IV (DC) Heparin Sodium (HEPARIN SODIUM) 0 .STK-MED ONE .ROUTE (DC) Nitroglycerin/Dextrose (NITROGLYCERIN 50,000MCG/D5W 250ML) 250 ML .STK-MED ONE IV (DC) Verapamil HCl (ISOPTIN) 0 .STK-MED ONE IV (DC) Physical ExamGeneral appearance: alert, awake, oriented, no acute distress, pleasant, conversationalNeck: non-tender, no JVDCardiovascular: CV assessment: regular rate and rhythm Murmur assessment:heart murmurRespiratory: clear to auscultation, no distressAbdomen: soft, non-tender, normal bowel sounds, no distentionGenitourinary: no flank pain, no urinary catheterLower extremity: LE assessment: abnormal pedal pulse, abnormal peripheral pulseMusculoskeletal: normal inspectionNeuro/CREDENTIALS SPECIALIST: alert, oriented X 3, normal speechSkin: right heel ulcerUlcer: Type/cause: diabetic (right heel ulcer), arterialPsychiatry: normal affect, normal mood ResultsFindings/Data:Laboratory Tests 07/12 0834 Chemistry POC Glucose (70 - 110 MG/DL) 164 H Laboratory Tests 07/12 07/12 1356 1232 Coagulation Activated Coag Time (74 - 137 SEC) 119 161 H Results: labs reviewed, vital signs reviewed, rhythm personally rev'dTelemetry Interpretation:sinus rhythm Diagnosis, Assessment PlanProblem List/A P: 1. HFrEF (heart failure with reduced ejection fraction) 2. Coronary artery disease 3. ESRD (end stage renal disease) on dialysis 4. Mitral regurgitation 5. PAD (peripheral artery disease) Plan discussed with: patient, spouse/partner, healthcare power of atty, collaborating MD, consultants (nephrology), nurse Free Text DxA P NotesFree Text DxA P Notes:68 YO female with MHx of IDDM on insulin pump, nonhealing foot ulcers, ESRD on HD MWF, recent diagnosis of severe cardiomyopathy, HFrEF with LVEF of 25% as well as severe MR. She had elective coronary and peripheral angiogram today, which revealed multivessel CAD and severe bilateral PAD. Vascular surgery and cardiothoracic surgery has been consulted. History provided by the patient and supplemented by niece who is the MPOA. 1. Multivessel CAD* CTS consult for CABG plus MVR* Aspirin, statin 2. Severe PAD with nonhealing foot ulcer* Vascular surgery consultation 3. Mitral regurgitation* CTS eval for MVR 4. Ischemic cardiomyopathy/HFrEF* does not appear volume overloaded on exam* volume management per HD* on midodrine d/t chronic hypotension* will add ACEi or ARB, and BB if BP can handle it 5. ESRD - on HD* nephrology consult 6. IDDM* per primary team Appreciate the referral. MDM by Dr. Pak. Kimberly Pak 07/15/23 1706:Attestations Physician AttestationAgree w/findings plan:I have seen and examined the pt, I Agree with the findings and plan as documented by Yue Barragan. at 1528 at 1706 RPT #:[id number] OF REPORTUFOybpinsspdmb7040-09-17B23:43:00G.PD [id number] for patient tlveZFQTRZWBEFJYWT8944-81-74A52:28:36 [facility] [place] 2023-07-12 12:54:00 [id number] PvZMzm xZOWUejMKIt8ZIz14D6blxk3za+4Vy2196-31-24T61:54 :00 [facility] ([facility])Cardiothoracic Surgery ConsultREPORT#:[id number] REPORT STATUS: SignedDATE:07/12/23 TIME: 1254 PATIENT: JOSEPH ROWLEY UNIT #: [id number]#: [id number] [address] [birth year] AGE: 68 SEX: F ATTEND: Tanvir Prasad MDADM AUTHOR: Trudy Colindres Physic * ALL edits or amendments must be made on the electronic/computer document * History of Present Illness HPIChief complaint:CAD, PVD nonhealing lower extremity ulcersShortness of breath, fatigueRequesting ClinicianDr RaslanHPI:This is a very pleasant 68-year-old female with a past medical history of type 1diabetes from the age of 46 years old, end-stage renal disease, on dialysis sinceSept2021, hypertension who presented to her inventory management specialist for evaluation ofbilateral nonhealing ulcerations of her bilateral heels for the past 3 months, and shortness of breath with exertion. Her last echocardiogram was completed with her inventory management specialist showing an EF 20-25%with mild LVH, severe global hypokinesis, mildly dilated left atrium with moderate aortic sclerosis without stenosis, mitral valve leaflets mildly thickened with severe MR, mild to moderate TR, moderate pulmonary hypertension with an RV systolic pressure 62 mmHg. Patient underwent left heart catheterization today and was found to have severe three-vessel coronary artery disease, with severe bilateral occluded SFAs of thelower extremity. CV surgery consulted for evaluation for coronary artery bypass graft surgery HistorySmoking status for patients 13 years old or older: Never SmokerAllergies:Coded Allergies:Sulfa (Sulfonamide Antibiotics) (Severe, rash 07/11/23)codeine (Intermediate, NAUSEA 07/11/23) Review of Systems Free Text ROS NotesFree Text ROS Notes:Constitutional: Negative for fever, chills, weight loss Skin positive for bilateral heel ulcersHEENT: Denies hearing loss denies any ear ringing denies any earache denies any sore throat denies any throat pain Respiratory: Positive for shortness of breath with exertionCardiac: Denies chest pain, denies palpitations denies orthopnea GI: Denies constipation denies diarrhea : Denies hematuria denies dysuria denies flank pain Musculoskeletal: Denies any joint pain denies any joint swelling denies any myalgia Hematologic: Denies any easy bruising, denies any bleeding Endocrine: Positive for type 1 diabetes since the age of 6Neurologic: Denies any lightheaded denies any headache denies any confusion denies any dizziness Objective Physical ExamVS/I O:Last Documented: Result Date Time Pulse Ox 100 07/11 1111 B/P 127/58 07/11 1111 Temp 97.5 07/11 1111 Pulse 72 07/11 1111 24 hour I O ending at 0700: 07/12 0700 07/11 1900 Intake Total Output Total Balance Patient 57.273 kg Weight Weight Standing scale Measurement Method PATIENT WEIGHT: Weight (lb): 126Weight (oz): 4.25Weight (kg): 57.273 General: well nourished, well groomed, no acute distress. HEENT: conjunctiva clear, extraocular movement intact, PERRLA, Neck: no, JVD, trachea midline, no, lymphadenopathy, neck supple, normal ROM. Respiratory: Clear to auscultation, no distress. Cardiovascular: regular rate and rhythm, S1, S2, Abdomen: Soft, non tender. No rebound. No guarding Extremities: Bilateral heel dressing in placeMusculoskeletal: Full range of motion, no CVA tenderness, no muscle spasm Skin: warm, dry, no, lesions, rash. Neurologic: Alert and oriented x3. Psychiatric: affect and demeanor normal Diagnosis, Assessment PlanFree Text A P:This is a very pleasant 68-year-old female with a past medical history of type 1diabetes from the age of 46 years old, end-stage renal disease, on dialysis sinceSept2021, hypertension who presented to her inventory management specialist for evaluation ofbilateral nonhealing ulcerations of her bilateral heels for the past 3 months, and shortness of breath with exertion. Her last echocardiogram was completed with her inventory management specialist showing an EF 20-25%with mild LVH, severe global hypokinesis, mildly dilated left atrium with moderate aortic sclerosis without stenosis, mitral valve leaflets mildly thickened with severe MR, mild to moderate TR, moderate pulmonary hypertension with an RV systolic pressure 62 mmHg. Patient underwent left heart catheterization today and was found to have severe three-vessel coronary artery disease, with severe bilateral occluded SFAs of thelower extremity. CV surgery consulted for evaluation for coronary artery bypass graft surgery Assessment/plan1. Severe three-vessel CAD2. Type I diabetic3. Severe peripheral vascular disease4. Nonhealing bilateral heel ulcerations5. Hypertension6. Hyperlipidemia7. CHF Documented EF 20-25% in the outpatient setting . Mitral valve regurgitation Noted to be severe on echocardiogram from March 2023 in the outpatient setting Patient with severe multivessel CAD. Patient will be worked up for CAD, Further recs to follow. Thank [place] for [place] consult. at 4793 at [phone] RPT #:[id number] OF [id number]:54:00G.PD [id number] for patient [id number]:25:57 HCACL 2023-07-11 11:12:00 [id number] gNlqeS [id number]:12 :[id number] [place] [id number] PATIENT NAME: JOSEPH ROWLEY ADMIT DATE: 07/12/23ACCOUNT NO: [id number] ROOM NO: EZEKIEL AGE: 68 REPORT TYPE: eELECTROCARDIOGRAM REPORT SEX: F ADMITTING PHYSICIAN:Tanvir Prasad MD ATTENDING PHYSICIAN:Tanvir Prasad MD Order:[id number] Reason : PRE OP Test Date/Time Stamp:TueJul 11 2023 11:12:24Blood Pressure : / mmHGVent. Rate : 078 BPM Atrial Rate : 078 BPM P-R Int : 136 ms QRS Dur : 084 ms QT Int : 348 ms P-R-T Axes : 072 073 240 degrees QTc Int : 396 ms Normal sinus rhythmSeptal infarct , age undeterminedST and T wave abnormality, consider inferolateral ischemiaAbnormal ECGNo previous ECGs availableConfirmed by FAREED HEARN MD ([id number]) on 07/12/2023 1:45:28 PM Referred By: Jaxson Grover Confirmed by:FAREED HEARN MD at 1345 PATIENT NAME: JOSEPH ROWLEY .[id number] for patient [id number]:45:43 HCACL
[2024-03-26] MEDS ORDERED: NA CHLORIDE 0.9% 250 ML ONE (21:48)
--- NOTE | 2024-03-26 22:06 | RAD REPORT ---
EXAM DESCRIPTION: CT - Head C Spine Cap Wo Con - 03/26/2024 9:44 pm CLINICAL HISTORY: Trauma, head and neck injury. Chest, abdomen and pelvis pain. TRAUMA COMPARISON: Abdomen Pelvis Wo Contrast dated 02/13/2023 TECHNIQUE: CT head without contrast. CT cervical spine without contrast with coronal and sagittal reformatted images. CT chest, abdomen and pelvis with coronal and sagittal reformatted images of the spine. All CT scans are performed using dose optimization technique as appropriate and may include automated exposure control or mA/KV adjustment according to patient size. FINDINGS: CT HEAD WITHOUT CONTRAST: No intracranial hemorrhage, hydrocephalus or extra-axial fluid collection. No acute large vascular te rritory infarct. Opacified right maxillary sinus and right anterior ethmoid air cells which is likely due to chronic s inusitis. The calvarium is intact. Right mastoid fluid. CT CERVICAL SPINE WITHOUT CONTRAST: No fracture or subluxation. Right IJ approach dialysis catheter. Severe disc height loss at C6-7. Mod erate right neural foraminal narrowing at the C6-7 level. No high-grade central spinal stenosis. The prevertebral soft tissues are normal in thickness. CT CHEST, ABDOMEN, PELVIS: Thorax: Chest Wall: No abnormal mass Lungs: Small cluster of nodules in the right upper lobe on image 22, series 401 is likely benign. Pleura: No effusions or pneumothorax. Karo/Mediastinum: No lymphadenopathy. Aorta/Pulmonary Arteries: Unremarkable Heart: Normal size. Aortic valve and coronary artery calcifications. Abdomen/Pelvis: Liver: No acute abnormality or suspicious lesions. Biliary: Cholelithiasis. No CT evidence of acute cholecystitis . Stomach: No significant focal abnormality. Duodenum: No significant focal abnormality. Pancreas: No significant abnormality. Spleen: No significant abnormality. Adrenal: No suspicious lesions. Kidney/ureter: No hydronephrosis. No renal calculi. Retroperitoneum: No retroperitoneal adenopathy. Vascular: No aneurysm. Aortoiliac atherosclerosis. Probable iliac artery stents. Bowel: Moderate stool in the colon.. Peritoneum: No ascites or free air. Bladder: Grossly unremarkable. Reproductive: Hysterectomy. Bones: No acute fracture. Other: Gas present at the left axilla. This may be from vascular access. A dialysis fistula is presen t in the left upper extremity. IMPRESSION: Negative for acute traumatic findings. Left axillary gas could be from vascular access or trauma. No source identified, however.
[2024-03-26] MEDS ORDERED: ALBUMIN HUMAN 25% 100 ML IV ONE (22:11)
[2024-03-26 22:14] LABS: Absolute Basophils 0.1 K/uL (0-0.5); Absolute Eosinophils 0.1 K/uL (0-0.5); Absolute Lymphocytes (CBC) 0.7 K/uL (0.7-4.9); Absolute Monocytes 1.2 K/uL (0.1-1.3); Basophils % 0.7 % (0-1.3); Eosinophils % 0.8 % (0-4.4); Hematocrit 31.2 % (36.0-45.0); Lymphocytes % 7.7 % (15.3-44.8); MCH 35.4 pg (27.0-35.0); MCHC 32.2 g/dL (32.0-36.0); MPV 9.6 fL (7.6-11.3); Monocytes % 13.3 % (3.3-12.3); Neutrophils % 77.5 % (41.7-73.7); Platelets 209 thou/uL (152-406); RBC Red Blood Cell Count 2.84 M/uL (3.86-4.86)
[2024-03-26 22:23] LABS: Anion Gap 10.6 mEq/L (5.0-15.0)
[2024-03-26 22:25] LABS: Potassium 2.6 mEq/L (3.5-5.1)
[2024-03-26 22:50] LABS: PT Prothrombin Time 12.6 SECONDS (9.5-12.5); PTT, Activated Partial Thromb 27.4 SECONDS (24.3-36.9); Protime INR 1.15
[2024-03-26] MEDS ORDERED: POTASSIUM 25 MEQ EFFERV TAB ONE (22:53)
[2024-03-26] MEDS ORDERED: MIDODRINE HCL 5 MG TABLET ONE (22:53)
--- NOTE | 2024-03-26 23:47 | EDPHYS ---
Physician Documentation [facility] Name: Josselin Rowley Age: 69 yrs Sex: Female : 1955 Arrival Date: 03/26/2024 Time: 21:22 Bed 19 Private MD: ED Physician Deep Foss HPI: 03/26 21:29 This 69 yrs old Female presents to ER via Unassigned with complaints of fall, sb4 hypoglycemia. 21:42 patient states she was in her room walking and somehow fell down. family said she was sb4 barely responsive and called EMS. EMS noted her to have a blood sugar of 27, administered glucagon and D10. patient did fall and hit the back of her head and sustained abrasions to her right arm, she is on plavix. She has no complaints at this time. Blood sugar has improved. Historical: - Allergies: 21:42 Codeine; me1 21:42 Sulfa (Sulfonamide Antibiotics); me1 - PMHx: 21:35 diabetes mellitus; Hypercholesterolemia; Hypertensive disorder; End stage renal disease;ll1 - Immunization history:: Adult Immunizations up to date. - Immunization history: Last tetanus immunization: - up to date. - Infectious Disease History:: Denies. - Social history:: Smoking status: Patient denies any tobacco usage or history of. ROS: 21:44 Constitutional: Negative for fever, chills, and weight loss, sb4 03/27 00:33 All other systems are negative, sb4 Exam: 00:33 Constitutional: This is a well developed, well nourished patient who is awake, alert, sb4 and in no acute distress. Head/Face: Normocephalic, atraumatic. Eyes: Extra-ocular motions intact. Periorbital areas with no swelling, redness, or edema. ENT: Mucous membranes moist. 00:33 Cardiovascular: Regular rate and rhythm with a normal S1 and S2. Respiratory: Lungs have equal breath sounds bilaterally, clear to auscultation and percussion. No rales, rhonchi or wheezes noted. No increased work of breathing, no retractions or nasal flaring. Abdomen/GI: Soft, non-tender, no distension. 00:33 Skin: extensive bruising noted to left upper extremity with recent incision for fistula formation. abrasions noted to right forearm, wrapped. Vital Signs: 03/26 21:29 BP 101 / 50; Pulse 68; Resp 18; Temp 98.1(O); Pulse Ox 100% on R/A; Weight 60.78 kg; me1 Height 4 ft. 8 in. ; Pain 6/10; 22:00 BP 85 / 40; Pulse 60; Resp 14 S; Pulse Ox 100% on R/A; ha1 22:37 BP 89 / 42; Pulse 60; Resp 18 S; Pulse Ox 99% on R/A; ha1 22:45 BP 91 / 59; Pulse 62; Resp 17 S; Pulse Ox 100% on R/A; ha1 23:05 BP 93 / 47; Pulse 61; Resp 17 S; Pulse Ox 100% on R/A; ha1 23:45 BP 93 / 50; Pulse 62; Resp 17 S; Temp 97.9; Pulse Ox 99% on R/A; ha1 03/27 00:00 BP 97 / 49; Pulse 61; Resp 17 S; Pulse Ox 99% on R/A; ha1 03/26 21:29 Body Mass Index 30.04 (60.78 kg, 142.24 cm) ne1 03/26 21:29 Pain Scale: Adult me1 Sameer Coma Score: 03/26 21:44 Eye Response: spontaneous(4). Motor Response: obeys commands(6). Verbal Response: me1 oriented(5). Total: 15. Trauma Score (Adult): 21:44 Eye Response: spontaneous(1); Verbal Response: oriented(1); Motor Response: obeys me1 commands(2); Systolic BP: > 89 mm Hg(4); Respiratory Rate: 10 to 29 per min(4); Somers Score: 15; Trauma Score: 12 MDM: 21:26 Patient medically screened. sb4 23:20 Refusal of service: The patient/guardian displays adequate decision making capability sb4 and despite a detailed discussion of alternatives, benefits, risks, and consequences refuses: Admission to the hospital for further work-up and treatment, Medications. 03/27 00:33 ED course: Dr. Foss and I both discussed with patient and our sb4 recommendation to admit her to hospital overnight for observation as her blood sugar was severely low and her blood pressure has also been low while she has been here. She adamantly refuses, is set on going home. Additionally, she refused to take supplemental potassium. 00:36 Data reviewed: vital signs, nurses notes, EMS record, lab test result(s), radiologic sb4 studies, I have discussed the patient's presentation/case with the attending Emergency Department Physician; and as a result, I will discharge patient. 03/26 21:27 Order name: Basic Metabolic Panel; Complete Time: 22:27 sb4 03/26 21:27 Order name: CBC with Diff sb4 03/26 21:27 Order name: PT-INR; Complete Time: 22:51 sb4 03/26 21:27 Order name: Ptt, Activated; Complete Time: 22:51 sb4 03/26 22:18 Order name: CBC Smear Scan EDMS 03/26 23:52 Order name: Glucose, Ancillary Testing; Complete Time: 23:52 EDMS 03/26 21:26 Order name: CT Traumagram (Head C Spine CAP wo con); Complete Time: 22:09 sb4 03/26 21:27 Order name: Labs collected and sent; Complete Time: 22:01 sb4 Administered Medications: 03/26 22:01 Drug: NS 0.9% IV 250 ml IV at bolus once Route: IV; Rate: bolus; Site: right hand; ll1 23:00 Follow up: Response: No adverse reaction; IV Status: Completed infusion; IV Intake: ha1 250ml 22:12 Drug: Albumin IVPB 25 grams 100 ml IVPB once; (Note: Albumin 25% concentration) Volume: ha1 100 ml; Route: IVPB; Site: right hand; 22:45 Follow up: Response: No adverse reaction; Marked relief of symptoms ha1 22:45 Follow up: Response: No adverse reaction; Marked relief of symptoms; IV Status: ha1 Completed infusion; IV Intake: 50ml 22:27 CANCELLED (Physician Discretion): potassiumeffervescent tablet 50 meq PO once; dissolve sb4 in 4 ounces of water or juice 22:48 Drug: midodrine 5 mg PO once Route: PO; ha1 23:40 Follow up: Response: No adverse reaction; Blood pressure is elevated ha1 23:04 Not Given (Patient Refused): potassiumeffervescent tablet 25 meq PO once; dissolve in 4 ha1 ounces of water or juice Disposition: 05/14 03:37 Co-signature as Attending Physician, Deep Foss MD I agree with the assessment sp4 and plan of care. I reviewed the patient's care provided by the Advanced Practice Provider and agree with the diagnosis and treatment plan. Disposition Summary: 03/26/24 23:46 Discharge Ordered Notes: Location: Home sb4 Problem: new sb4 Symptoms: have improved sb4 Condition: Stable sb4 Diagnosis - Fall on same level, unspecified sb4 - Type 2 diabetes mellitus with hypoglycemia without coma sb4 Followup: sb4 - With: Emergency Department - When: As needed - Reason: Trouble breathing, Worsening of condition Discharge Instructions: - Discharge Summary Sheet sb4 - Fall Prevention in the Home, Adult, [id number] sb4 - Hypoglycemia, [id number] sb4 Forms: - Patient Portal Instructions sb4 - Leadership Thank You Letter sb4 Signatures: Dispatcher [employer] Carlton Larry RN RN ll1 Mitzi Persaud RN RN ha1 Mee Hsu, PAOzzyC PA-[place] sb4 Deep Foss MD MD sp4 Kamryn Person RN RN me1 Corrections: (The following items were deleted from the chart) 03/26 21:36 21:35 PMHx: kidney disease; 1 1 22:27 22:27 Potassium PO Effervescent Tablet 50 mEq PO once; dissolve in 4 ounces of water or sb4 juice ordered. sb4 22:58 21:35 Allergies: Codeine; 1 me1 22:58 21:35 Allergies: Sulfa (Sulfonamide Antibiotics); 1 me1 22:58 21:35 Immunization history: Adult Immunizations up to date, [facility] 22:58 21:35 Infectious Disease History: Denies. [facility] me1 22:58 21:35 Social history: Smoking status: Patient denies any tobacco usage or history of. me1 ll1 22:58 21:45 Immunization history Last tetanus immunization: - up to date. 1 me1
--- NOTE | 2024-03-26 23:47 | ER ---
Nurse's Notes [facility] Name: Josselin Rowley Age: 69 yrs Sex: Female : 1955 Arrival Date: 03/26/2024 Time: 21:22 Bed 19 Private MD: Diagnosis: Fall on same level, unspecified;Type 2 diabetes mellitus with hypoglycemia without coma Presentation: 03/26 21:29 Method Of Arrival: EMS: [facility] me1 21:29 Acuity: DAVID 2 me1 21:29 Chief complaint: EMS states: toned out for fall. Unwitnessed fall with a low blood me1 sugar. On EMS arrival patient was unresponsive to painful stimuli with BGL of 27. Established 24g IV to right hand, administered glucagon 1mg and D10 200ml. BLG on arrival to ER 226. A\\T\\Ox4. Insulin pump to abdomen with no way to control it but spouse is bringing it. c/o pain to posterior head (on plavix) and skin tears to right forearm. Dialysis patient with AV fistula to Left upper arm and tunnel cath to W. Coronavirus screen: Vaccine status: Patient reports receiving the 1st dose of the Covid vaccine. Ebola Screen: No symptoms or risks identified at this time. Initial Sepsis Screen: Does the patient meet any 2 criteria? No. Patient's initial sepsis screen is negative. Does the patient have a suspected source of infection? No. Patient's initial sepsis screen is negative. Risk Assessment: Do you want to hurt yourself or someone else? Patient reports no desire to harm self or others. Onset of symptoms was March 26, 2024. 21:42 Care prior to arrival: Medication(s) given: Glucagon, D10 IV initiated. in the right me1 hand, 24g Glucose check: 27 glucose airplane captain 266. 21:45 Mechanism of Injury: Fall unwitnessed fall when patient walked into bedroom. Trauma me1 event details: Injury occurred in the [facility]. 22:00 Care prior to arrival: medications given by EMS. ha1 Triage Assessment: 21:35 General: Appears uncomfortable, well developed, well nourished, Behavior is calm, ll1 cooperative, appropriate for age, Reports unwitnessed fall with low blood sugar. Hit posterior head (on plavix), skin tears to RFA. Pain: Complains of pain in back of head Pain does not radiate. Pain currently is 5 out of 10 on a pain scale. Quality of pain is described as aching, Pain began suddenly, Is continuous. EENT: No signs and/or symptoms were reported regarding the EENT system. Neuro: Level of Consciousness is awake, alert, obeys commands, Oriented to person, place, time, situation, Appropriate for age. Cardiovascular: Patient's skin is warm and dry. Respiratory: Airway is patent Respiratory effort is even, unlabored, Respiratory pattern is regular, symmetrical. GI: No signs and/or symptoms were reported involving the gastrointestinal system. : No signs and/or symptoms were reported regarding the genitourinary system. Derm: Wound noted dorsal aspect of right forearm Wound is skin tear. 21:35 Derm: Wound noted back of head Wound is contusion. Derm: Wound noted left tricep Wound ll1 is surgical incision. 21:35 Musculoskeletal: No signs and/or symptoms reported regarding the musculoskeletal ll1 system. Injury Description: fall. 21:51 Derm: Wound noted heel of right foot Wound is chronic wound. ll1 Trauma Activation: Physician: ED Physician; Name: ; Notified At: ; Arrived At: Physician: General Surgeon; Name: ; Notified At: ; Arrived At: Physician: Radiology; Name: ; Notified At: ; Arrived At: Physician: Respiratory; Name: ; Notified At: ; Arrived At: Physician: Lab; Name: ; Notified At: ; Arrived At: 21:47 at 21:26 me1 Historical: - Allergies: 21:42 Codeine; me1 21:42 Sulfa (Sulfonamide Antibiotics); me1 - PMHx: 21:35 diabetes mellitus; Hypercholesterolemia; Hypertensive disorder; End stage renal disease;ll1 - Immunization history:: Adult Immunizations up to date. - Immunization history: Last tetanus immunization: - up to date. - Infectious Disease History:: Denies. - Social history:: Smoking status: Patient denies any tobacco usage or history of. Screenin:39 [facility] ED Fall Risk Assessment (Adult) History of falling in the last 3 months, me1 including since admission Yes- single mechanical fall (1 pt) Confusion or Disorientation No (0 pts) Intoxicated or Sedated No (0 pts) Impaired Gait No (0 pts) Mobility Assist Device Used No (0 pt) Altered Elimination No (0 pt) Score/Fall Risk Level 0 - 2 = Low Risk Maintained a safe environment, Provided non-skid footwear, Hourly rounding (assess needs \\T\\ fall precautionary measures) done. Abuse screen: Denies threats or abuse. Nutritional screening: No deficits noted. Tuberculosis screening: No symptoms or risk factors identified. Primary Survey: 21:44 NO uncontrolled hemorrhage observed. A: The client is awake and alert. The airway is me1 patent. The client is alert. Breathing/Chest: Spontaneous respiratory effort, equal unlabored respirations, breath sounds clear bilaterally, regular pattern, symmetrical chest rise and fall. Respiratory effort: spontaneous, unlabored, Breath sounds: clear, Respiratory pattern: regular, Chest inspection: symmetrical rise and fall of the chest. Disability Pupils are equal, round, reactive to light and accommodation. Client is alert. Exposure/Environment: There is no evidence of uncontrolled external bleeding. Obvious injury(ies) are noted at this time: contusion to posterior head, skin tears to RFA. 21:44 Circulation: No external hemorrhage present. Regular and strong central pulse, skin me1 warm/dry/normal color. Hemorrhage: No external hemorrhage noted. Pulses: palpable right radial artery, right posterior tibial artery, left radial artery and left posterior tibial artery. Skin color: pink, Skin temperature: warm, dry, Heart tones present. 22:00 Reassessment Alertness and Airway: Awake and alert. The airway is patent. Breathing: ha1 Spontaneous respiratory effort, equal unlabored respirations, breath sounds clear bilaterally, regular pattern with symmetrical chest rise and fall. Respiratory effort Spontaneous. Assessment: 21:39 General: See triage assessment. . me1 21:41 General: trauma alert called at 21:26. me1 21:45 General: Appears uncomfortable, well groomed, well developed, well nourished. me1 22:00 Neuro: Level of Consciousness is awake, alert, obeys commands, Oriented to person, ha1 place, time, situation. Cardiovascular: Patient's skin is warm and dry. Respiratory: Airway is patent Respiratory effort is even, unlabored, Respiratory pattern is regular, symmetrical. GI: had dialysis today. : No signs and/or symptoms were reported regarding the genitourinary system. Derm: Skin is fragile, Skin is dry. Injury Description: Abrasion sustained to right arm is wrap with Kerlix . no bleeding noticed. dressing clean and dry. 22:00 General: Appears comfortable, Behavior is calm, cooperative. Pain: Complains of pain in mo1 right arm and back of head Pain does not radiate. Pain currently is 5 out of 10 on a pain scale. Quality of pain is described as aching, Pain began suddenly. 22:00 Reassessment: Notified care provider Shadi. [facility] 22:15 Reassessment: patient requesting to be discharge. patient states "my blood pressure is ha1 always low I am ready to go home. " Notified care provider. 23:00 Reassessment: Patient and/or family updated on plan of care and expected duration. Pain ha1 level reassessed. Patient is alert, oriented x 3, equal unlabored respirations, skin warm/dry/pink. 03/27 00:00 Reassessment: Patient and/or family updated on plan of care and expected duration. Pain ha1 level reassessed. Patient is alert, oriented x 3, equal unlabored respirations, skin warm/dry/pink. Patient states feeling better. Patient states symptoms have improved. Vital Signs: 03/26 21:29 BP 101 / 50; Pulse 68; Resp 18; Temp 98.1(O); Pulse Ox 100% on R/A; Weight 60.78 kg; mo1 Height 4 ft. 8 in. ; Pain 6/10; 22:00 BP 85 / 40; Pulse 60; Resp 14 S; Pulse Ox 100% on R/A; ha1 22:37 BP 89 / 42; Pulse 60; Resp 18 S; Pulse Ox 99% on R/A; ha1 22:45 BP 91 / 59; Pulse 62; Resp 17 S; Pulse Ox 100% on R/A; ha1 23:05 BP 93 / 47; Pulse 61; Resp 17 S; Pulse Ox 100% on R/A; ha1 23:45 BP 93 / 50; Pulse 62; Resp 17 S; Temp 97.9; Pulse Ox 99% on R/A; ha1 03/27 00:00 BP 97 / 49; Pulse 61; Resp 17 S; Pulse Ox 99% on R/A; ha1 03/26 21:29 Body Mass Index 30.04 (60.78 kg, 142.24 cm) [facility] 03/26 21:29 Pain Scale: Adult me1 Sameer Coma Score: 03/26 21:44 Eye Response: spontaneous(4). Motor Response: obeys commands(6). Verbal Response: me1 oriented(5). Total: 15. Trauma Score (Adult): 21:44 Eye Response: spontaneous(1); Verbal Response: oriented(1); Motor Response: obeys me1 commands(2); Systolic BP: > 89 mm Hg(4); Respiratory Rate: 10 to 29 per min(4); Sameer Score: 15; Trauma Score: 12 ED Course: 21:25 Patient arrived in ED. ty 21:26 Mee Hsu PA-C is PHCP. sb4 21:26 Deep Foss MD is Attending Physician. sb4 21:35 Triage completed. me1 21:35 Arm band placed on Patient placed in an exam room. me1 21:39 Patient has correct armband on for positive identification. Bed in low position. Call me1 light in reach. Side rails up X2. Provided Education on: POC. Verbalized understanding. . Client placed on continuous cardiac and pulse oximetry monitoring. NIBP monitoring applied. manager monitoring on. Pulse ox on. NIBP on. 21:39 No provider procedures requiring assistance completed. me1 21:44 O2 via room air. me1 21:45 CT Traumagram (Head C Spine CAP wo con) In Process Unspecified. EDMS 21:47 Thermoregulation: warm blanket given to patient. me1 22:01 Maintain EMS IV. Dressing intact. Good blood return noted. Site clean \\T\\ dry. Gauge \\T\\ me 1 site: 24g right hand. Basic Metabolic Panel Sent, CBC with Diff, Ptt, Activated, PT-INR Sent. 22:02 Initial lab(s) drawn, by mo, sent to lab. mo1 03/27 00:08 IV discontinued, intact, bleeding controlled, No redness/swelling at site. Pressure ha1 dressing applied. Administered Medications: 03/26 22:01 Drug: NS 0.9% IV 250 ml IV at bolus once Route: IV; Rate: bolus; Site: right hand; 1 23:00 Follow up: Response: No adverse reaction; IV Status: Completed infusion; IV Intake: ha1 250ml 22:12 Drug: Albumin IVPB 25 grams 100 ml IVPB once; (Note: Albumin 25% concentration) Volume: ha1 100 ml; Route: IVPB; Site: right hand; 22:45 Follow up: Response: No adverse reaction; Marked relief of symptoms ha1 22:45 Follow up: Response: No adverse reaction; Marked relief of symptoms; IV Status: ha1 Completed infusion; IV Intake: 50ml 22:27 CANCELLED (Physician Discretion): potassiumeffervescent tablet 50 meq PO once; dissolve sb4 in 4 ounces of water or juice 22:48 Drug: midodrine 5 mg PO once Route: PO; ha1 23:40 Follow up: Response: No adverse reaction; Blood pressure is elevated ha1 23:04 Not Given (Patient Refused): potassiumeffervescent tablet 25 meq PO once; dissolve in 4 ha1 ounces of water or juice Medication: 21:39 VIS not applicable for this client. me1 Intake: 22:45 IV: 50ml; Total: 50ml. ha1 23:00 IV: 250ml; Total: 300ml. ha1 21:44 n/a me1 Outcome: 23:46 Discharge ordered by MD. stephenson 03/27 00:14 Patient left the ED. ha1 00:14 Discharged to home via wheelchair, with family, ha1 00:14 Condition: stable 00:14 Discharge instructions given to patient, family, Instructed on discharge instructions, follow up and referral plans. Demonstrated understanding of instructions, follow-up care, Signatures: Dispatcher [employer] EDCarlton Garcia RN RN ll1 Mitzi Persaud RN RN ha1 Mee Hsu PA-C PA-C sb4 Eddleman, Michelle, RN RN me1 Jose Guadalupe Choi Corrections: (The following items were deleted from the chart) 03/26 21:36 21:35 PMHx: kidney disease; ll1 ll1 21:42 21:29 Chief complaint: EMS states: toned out for fall. Unwitnessed fall with a low ll1 blood sugar. On EMS arrival patient was unresponsive to painful stimuli with BGL of 27. Established 24g IV to right hand, administered glucagon 1mg and D10 200ml. BLG on arrival to ER 226. A\\T\\Ox4. Insulin pump to abdomen with no way to control it but spouse is bringing it. c/o pain to posterior head (on plavix) and skin tears to right forearm. Dialysis patient with AV fistula to Left upper arm and tunnel cath to LCW. [facility] : 21:29 Coronavirus screen: Vaccine status: Patient reports receiving the 1st dose of the mo1 Covid vaccine. [facility] 21:29 Ebola Screen: No symptoms or risks identified at this time. [place] [id number] 22: 21:29 Initial Sepsis Screen: Does the patient meet any 2 criteria? No. Patient's [facility] initial sepsis screen is negative. Does the patient have a suspected source of infection? No. Patient's initial sepsis screen is negative. [facility] : 21:29 Risk Assessment: Do you want to hurt yourself or someone else? Patient reports no [facility] desire to harm self or others. [facility] 21:29 Onset of symptoms was March 26, 2024 [place] [address] 21:29 Chief complaint: EMS states: toned out for fall. Unwitnessed fall with a low [facility] blood sugar. On EMS arrival patient was unresponsive to painful stimuli with BGL of 27. Established 24g IV to right hand, administered glucagon 1mg and D10 200ml. BLG on arrival to ER 226. A\\T\\Ox4. Insulin pump to abdomen with no way to control it but spouse is bringing it. c/o pain to posterior head (on plavix) and skin tears to right forearm. Dialysis patient with AV fistula to Left upper arm and tunnel cath to LCW. [facility] : 21:29 Method Of Arrival: EMS: [facility] [place] [id number] :56 21:29 BP 101 / 50; Pulse 68bpm; Resp 18bpm; Pulse Ox 100% RA; Temp 98.1F Oral; 60.78 me1 kg; Height 4 ft. 8 in.; BMI: 30.0; Pain 6/10, Adult; [facility] : 21:29 Acuity: DAVID 2 [place] [address] 22:56 21:42 Care prior to arrival: Medication(s) given: Glucagon, D10 IV initiated. in the [facility] right hand, 24g Glucose check: 27 glucose airplane captain 266 [facility] 22:56 21:45 Mechanism of Injury: Fall unwitnessed fall when patient walked into bedroom [place] [id number] 22:56 21:45 Trauma event details: Injury occurred in the [facility], [place] [address] 22:56 21:47 at 21:26 [place] [address] :57 21:39 General: See triage assessment. . [place] [address] :57 21:41 General: trauma alert called at 21:26. [place] [address] :57 21:45 General: Appears uncomfortable, well groomed, well developed, well nourished, [place] [address] :57 22:00 Reassessment: Notified care provider Shadi [place] [id number] :57 22:00 General: Appears comfortable, Behavior is calm, cooperative, [place] [id number] :57 22:00 Pain: Complains of pain in right arm and back of head Pain does not radiate. Pain mo1 currently is 5 out of 10 on a pain scale. Quality of pain is described as aching, Pain began suddenly, [facility] 22:58 21:35 Allergies: Codeine; [place] [address] 22:58 21:35 Allergies: Sulfa (Sulfonamide Antibiotics); [place] [address] 22:58 21:35 Immunization history: Adult Immunizations up to date, [place] [address] :58 21:35 Infectious Disease History: Denies. [place] [address] 22:58 21:35 Social history: Smoking status: Patient denies any tobacco usage or history of. [place] [id number] 22:58 21:45 Immunization history Last tetanus immunization: - up to date. [place] [address] 22:59 21:44 NO uncontrolled hemorrhage observed [place] [address] 22:59 21:44 A: The client is awake and alert. The airway is patent. The client is alert. [place] [address] 22:59 21:44 Breathing/Chest: Spontaneous respiratory effort, equal unlabored respirations, [facility] breath sounds clear bilaterally, regular pattern, symmetrical chest rise and fall. Respiratory effort: spontaneous, unlabored, Breath sounds: clear, Respiratory pattern: regular, Chest inspection: symmetrical rise and fall of the chest, [facility] 22:59 21:44 Circulation: No external hemorrhage present. Regular and strong central pulse, mo1 skin warm/dry/normal color. Hemorrhage: No external hemorrhage noted. Pulses: palpable right radial artery, right posterior tibial artery, left radial artery and left posterior tibial artery. Skin color: pink, Skin temperature: warm, dry, Heart tones present. [facility] 22:59 21:44 Disability Pupils are equal, round, reactive to light and accommodation. Client mo1 is alert. [facility] :59 21:44 Exposure/Environment: There is no evidence of uncontrolled external bleeding. [facility] Obvious injury(ies) are noted at this time: contusion to posterior head, skin tears to RFA. [facility] :59 21:44 Wheatcroft Score=15, Trauma Score=12, [place] [address] :59 21:44 GCS: 15, [place] [address] :59 21:44 Note:n/a. [place] [address] : 21:35 Arm band placed on Patient placed in an exam room, [place] [address] 23: 21:39 Patient has correct armband on for positive identification. Bed in low position. [facility] Call light in reach. Side rails up X2. [facility] 23: 21:39 Provided Education on: POC. Verbalized understanding. . [place] [address] 23: 21:39 Client placed on continuous cardiac and pulse oximetry monitoring. NIBP [facility] monitoring applied. manager monitoring on. Pulse ox on. NIBP on. [facility] 23: 21:39 VIS not applicable for this client. [place] [address] 23:00 21:39 [facility] ED Fall Risk Assessment (Adult) History of falling in the last 3 months, [facility] including since admission Yes- single mechanical fall (1 pt) Confusion or Disorientation No (0 pts) Intoxicated or Sedated No (0 pts) Impaired Gait No (0 pts) Mobility Assist Device Used No (0 pt) Altered Elimination No (0 pt) Score/Fall Risk Level 0 - 2 = Low Risk Maintained a safe environment, Provided non-skid footwear, Hourly rounding (assess needs \\T\\ fall precautionary measures) done, [facility] 23:00 21:39 Abuse screen: Denies threats or abuse. [place] [address] 23:00 21:39 Nutritional screening: No deficits noted. [place] [address] 23:00 21:39 Tuberculosis screening: No symptoms or risk factors identified. [place] [address] 23:01 21:39 No provider procedures requiring assistance completed. [place] [address] 23: 21:44 O2 via room air [place] [address] 23: 21:47 Thermoregulation: warm blanket given to patient. [place] [address] 23: 22:01 BASIC METABOLIC PANEL+C.LAB.BRZ drawn and sent. [place] [address] 23: 22:01 CBC+H.LAB.BRZ drawn and sent. [place] [address] 22:01 PTT, ACTIVATED+COAG.LAB.BRZ drawn and sent. [place] [address] 22:01 PROTIME (+INR)+COAG.LAB.BRZ drawn and sent. [place] [address] : 22:01 Maintain EMS IV. Dressing intact. Good blood return noted. Site clean \\T\\ dry. [facility] Gauge \\T\\ site: 24g right hand. [facility] : 22:02 Initial lab(s) drawn, by me, sent to lab. [place] [address] 21:28 Carlton Sweet, EMMA is Primary Nurse. [place] [address] : 21:35 Triage completed. [place] [address] 03/27 04:14 00:16 Patient left the ED. ha1 ha1
[2024-03-27 00:22] LABS: Blood Morphology Comment NOTED (NOT SEEN); Macrocytosis 1+; Platelet Estimate ADEQ; White Blood Cell Scan OK (OK)
[2024-03-27 00:39] VITALS: BP 93/50; TEMP 97.9; O2SAT 99
== END 2024-03-27 00:16 | disposition home or self-care (01) ==
LOC: ER 21:22
DX: E11.649 Type 2 diabetes mellitus with hypoglycemia without coma (principal); W18.30XA Fall on same level, unspecified, initial encounter; E11.22 Type 2 diabetes mellitus with diabetic chronic kidney disease; I12.0 Hypertensive chronic kidney disease with stage 5 chronic kidney disease or end stage renal disease; N18.6 End stage renal disease; Z88.2 Allergy status to sulfonamides; Z88.5 Allergy status to narcotic agent
CPT/HCPCS: 96365; 85025; 80048; 36415; 85610; 82947; 85730; 70450; 71250; 72125; 99285; P9047; J7050

== ENCOUNTER 2024-07-09 10:13 | Emergency (ER) | payer OTHER ==
--- OUTSIDE RECORDS SUMMARY | 2024-07-09 10:25 | XMS REPORT | Continuity of Care Document ---
Author Name Unknown Address [address] [facility] [place] [address] [facility] thconnect Address [address] [facility] [address] [place] [address] Care Team Providers Care Pharmacy Affairs Assistant Name Role Phone Benito Nugent Primary Care Physician [phone] ALESSANDRO YEBOAH Attending Clinician Unavailable Alessandro Yeboah MD Attending Clinician [phone] Kenzie Gordillo Attending Clinician Unavailable Cici Hahn Attending Clinician [phone] Luis Carlos Huggins Attending Clinician Unavailab le Doctor Unassigned, Radium Attending Clinician U mili Montenegro [facility] Sylvester ONEILL Attending Clinician Donna Tam Attending Clinician Unavailable Tanvir Prasad Attending Clinician Unavailable Paty Marrero MD Attending Clinician Donna Zendejas Admitting Clinician Unavailable Benito Nugent Admitting Clinician Unavailable Donna Tam Admitting Clinician Unavailable Tanvir Prasad Admitting Clinician Unavailable Payers Payer Name Policy Type Policy Number Effective Date Expirati on Date Source [employer] [place] - OUT OF [place] [id number] 2012 00:00:00 Problems Condition Name Condition Details Condition Category Status Onset Date Resolution Date Last Treatment Date Treating Clinician Comments Source Hypoglycem ia Hypoglycem ia Disease Active 08-11 00:00: 00 [facility] Vitamin D deficiency Vitamin D deficiency Disease Active 01-03 00:00: 00 [facility] Insulin pump titration Insulin pump titration Disease Active 2015-11 00:00: 00 [facility] Insulin pump status Insulin pump status Disease Active 2015-11 00:00: 00 [facility] CKD (chronic kidney disease) stage 3, GFR 30-59 ml/min CKD (chronic kidney disease) stage 3, GFR 30-59 ml/min Disease Active 2015-11 00:00: 00 [facility] Hyperkalem ia Hyperkalem ia Disease Active 2015-11 00:00: 00 [facility] CKD (chronic kidney disease) CKD (chronic kidney disease) Disease Active 08-12 00:00: 00 [facility] Cough Cough Disease Active 01-13 00:00: 00 [facility] Renal insufficie ncy Renal insufficie ncy Disease Active 03-26 00:00: 00 [facility] Diabetes mellitus with background retinopath y Diabetes mellitus with background retinopath y Disease Active 08-01 00:00: 00 Overview: Formattin g of this note might be different from the original. 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 Dx in 1961 [facility] Essential hypertensi on, benign Essential hypertensi on, benign Disease Active [facility] HLD (hyperlipi demia) HLD (hyperlipi demia) Disease Active Overview: Formattin g of this note might be different from the original. ICD10 Diagnosis Term Rayon Winder Utility [facility] Allergies, Adverse Reactions, Alerts Allergy Name Allergy Type Status Severity Reaction(s) Onset Date Inactive Date Treating Clinician Comments Source sulfamet hoxazole DA Active [place] ANAPHYLAXIS 624 00:00: 00 [facility] trimetho prim DA Active SV ANAPHYLAXIS 624 00:00: 00 [facility] codeine DA Active [place] NAUSEA 624 00:00: 00 [facility] codeine DA Active [place] NAUSEA 2022-11 017 00:00: 00 [facility] sulfamet hoxazole DA Active SV ANAPHYLAXIS 2022-11 017 00:00: 00 [facility] trimetho prim DA Active SV ANAPHYLAXIS 2022-11 017 00:00: 00 [facility] Sulfa (Sulfona mide Antibiot ics) DA Active SV rash 828 00:00: 00 [facility] codeine DA Active [place] NAUSEA 828 00:00: 00 [facility] Codeine Propensi ty to adverse reaction s Active Nausea Only 08-01 00:00: 00 [facility] Sulfa (Sulfona mide Antibiot ics) Propensi ty to adverse reaction s Active Shortness of Breath 08-01 00:00: 00 swelling [facility] CODEINE DRUG INGREDI Active NAUSEA ONLY 08-01 00:00: 00 [facility] SULFA (SULFONA MIDE ANTIBIOT ICS) Drug Class Active SOB 08-01 00:00: 00 [facility] Social History Social Habit Start Date Stop Date Quantity Comments Source [facility] intake 2024-02-21 00:00:00 2024-02-21 00:00:00 Current non-drinker of alcohol (finding) [facility] History of Social function 2024-02-21 00:00:00 2024-02-21 00:00:00 [facility] Alcoholic beverage intake 2024-02-21 00:00:00 2024-02-21 00:00:00 Current non-drinker of alcohol (finding) [facility] Exposure to SARS-CoV-2 (event) 2023-03-12 00:00:00 2023-03-22 11:32:00 Not sure [facility] Tobacco use and exposure 2022-06-09 00:00:00 2022-06-09 00:00:00 Smokeless tobacco non-user [facility] History of tobacco use 1994-08-01 00:00:00 Cigarette Smoker [facility] Sex assigned at 1955 00:00:00 1955 00:00:00 [facility] Smoking Status Start Date Stop Date Source Ex-smoker 2022-06-09 00:00:00 2022-06-09 00:00:[facility] Medications Ordered Medication Name Filled Medication Name Start Date Stop Date Current Medication? Ordering Clinician Indication Dosage Frequency Signature (SIG) Comments Components Source insulin pump cart,cont BT-cntr (OMNIPOD DASH INTRO KIT, GEN 4,) [facility] 05-11 00:00: 00 Yes [id number] 1{each} inject 1 Each under the skin every 72 (seventy-t wo) hours. [facility] insulin pump cart,cont inf,BT (OMNIPOD DASH PODS, GEN 4,) [facility] 05-11 00:00: 00 Yes [id number] 1{each} inject 1 Each under the skin every 72 (seventy-t wo) hours. [facility] glucagon (GVOKE HYPOPEN 2-PACK) 0.5 mg/0.1 mL [facility] 05-04 00:00: 00 Yes [id number] 1{pen} 1 Pen by Intramuscu lar route as needed (hypoglyce padma). [facility] insulin aspart, niacinamide , (FIASP U-100 INSULIN) 100 unit/mL Soln 04-30 00:00: 00 Yes [id number] 50U inject 50 Units under the skin in the morning. Use via insulin pump. Max daily dose 50 units [facility] flash glucose sensor (FREESTYLE MICKEY 2 SENSOR) Kit 5-21 00:00: 00 Yes Use as directed to check blood sugars. Change sensor every 14 days. DX E10.39 [facility] Blood-Gluco se Sensor (FREESTYLE MICKEY 3 SENSOR) [facility]ayna - 00:00: 00 Yes [id number] Use as directed every 2 weeks E10.65 [facility] insulin pump cart,cont inf,RF (OMNIPOD CLASSIC PODS, GEN 3,) [facility] 4-09 00:00: 00 Yes [id number] 1{kit} inject 1 Kit under the skin every 72 (seventy-t wo) hours. [facility] Blood-Gluco se Meter,Dieudonne nuous (FREESTYLE MICKEY 3 READER) [facility] [place] 00:[place]: 00 02-21 04:59 :00 No [id number] 1{each} inject 1 Each under the skin once now for 1 dose. Use as directed with sensor E10.65 [facility] insulin aspart, niacinamide , (FIASP U-100 INSULIN) 100 unit/mL Soln 1-03 00:00: 00 04-29 00:00 :00 No [id number] 50U inject 50 Units under the skin in the morning. Use via insulin pump. Max daily dose 50 units [facility] blood sugar diagnostic (FREESTYLE TEST) strip 2022-11- 00:00: 00 Yes [id number] USE DIRECTED TIDAC DX:E10.39 [facility] flash glucose sensor (FREESTYLE MICKEY 2 SENSOR) Kit 2022-11 2- 00:00: 00 02-20 00:00 :00 No 1{each} Apply 1 Each to skin every 14 (fourteen) days. Dx E11.65 [facility] insulin pump cart,cont inf,RF (OMNIPOD CLASSIC PODS, GEN 3,) [facility] 2022-11 0-31 00:00: 00 02-20 00:00 :00 No [id number] 1{kit} inject 1 Kit under the skin every 72 (seventy-t wo) hours. [facility] flash glucose sensor (FREESTYLE MICKEY 2 SENSOR) Kit 6-04 00:00: 00 10-24 00:00 :00 No 1{each} Apply 1 Each to skin every 14 (fourteen) days. Dx E11.65 [facility] insulin lispro, human, (HUMALOG U-100 INSULIN) 100 unit/mL injection 03-27 00:00: 00 11-16 00:00 :00 No [id number] Use via insulin pump. Max daily dose 50 units [facility] insulin aspart RAPID (NOVOLOG U-100 INSULIN ASPART) 100 unit/mL injection 03-22 00:00: 00 03-27 00:00 :00 No [id number] USE IN INSULIN PUMP, UP TO 50 UNITS DAILY [facility] OMNIPOD CLASSIC PODS, GEN 3, Crtg 03-09 00:00: 00 Yes [id number] USE 1 POD SUBCUTANEO USLY EVERY 72 HOURS [facility] OMNIPOD CLASSIC PODS, GEN 3, Crtg 03-09 00:00: 00 09-13 00:00 :00 No [id number] USE 1 POD SUBCUTANEO USLY EVERY 72 HOURS [facility] insulin aspart RAPID (NOVOLOG U-100 INSULIN ASPART) 100 unit/mL injection 03-06 00:00: 00 03-22 00:00 :00 No [id number] USE IN INSULIN PUMP, UP TO 50 UNITS DAILY [facility] insulin aspart RAPID (NOVOLOG U-100 INSULIN ASPART) 100 unit/mL injection 02-21 00:00: 00 03-06 00:00 :00 No [id number] USE IN INSULIN PUMP, UP TO 50 UNITS DAILY [facility] famotidine 40 mg tablet -07 00:00: 00 Yes 40mg Take 1 tablet by mouth at bedtime. [facility] bumetanide 2 mg tablet 01-25 00:00: 00 Yes TAKE 1.5 TABLET TWICE DAILY [facility] midodrine 5 mg tablet 2023-0 3-14 00:00: 00 Yes 5mg Take 1 tablet by mouth in the morning and 1 tablet at noon and 1 tablet in the evening. [facility] flash glucose scanning reader (FREESTYLE MICKEY 2 READER) [facility] 11-20 00:00: 00 02-20 00:00 :00 No 1{each} 1 Each SEE-INSTRU CTIONS. [facility] flash glucose sensor (FREESTYLE MICKEY 2 SENSOR) Kit 11-20 00:00: 00 04-17 00:00 :00 No 1{each} Apply 1 Each to skin every 14 (fourteen) days. Dx E11.65 [facility] insulin pump cart,cont inf,RF (OMNIPOD CLASSIC PODS, GEN 3,) Crtg 2021-11 00:00: 00 03-09 00:00 :00 No [id number] 1{each} inject 1 Each under the skin every 72 (seventy-t wo) hours. E10.65 [facility] TOUJEO SOLOSTAR U-300 INSULIN 300 unit/mL (1.5 mL) InPn 2021-11 00:00: 00 Yes [id number] 16U inject 16 Units under the skin in the morning. E10.65 [facility] Insulin Standard, Disposable, (BD FIORELLA 2ND GEN PEN NEEDLE) 32 gauge x 5/32" Ndle 2021-11 00:00: 00 Yes [id number] Use as directed 4 times a day E10.65 [facility] Insulin Standard, Disposable, (BD FIORELLA 2ND GEN PEN NEEDLE) 32 gauge x 5/32" Ndle 2021-11 00:00: 00 Yes [id number] Use as directed 4 times a day E10.65 [facility] insulin aspart U-100 (NOVOLOG FLEXPEN U-100 INSULIN) 100 unit/mL (3 mL) injection 2021-11 00:00: 00 03-27 00:00 :00 No [id number] Take novolog 4-6 units before each meal per sliding scale up to 20 units per day E10.65 [facility] flash glucose sensor (FREESTYLE IMCKEY 2 SENSOR) Kit 2021-11 217 00:00: 00 11-20 00:00 :00 No 1{each} Apply 1 Each to skin every 14 (fourteen) days. Dx E11.65 [facility] insulin aspart RAPID (NOVOLOG U-100 INSULIN ASPART) 100 unit/mL injection 2021-11 017 00:00: 00 02-21 00:00 :00 No [id number] USE IN INSULIN PUMP, UP TO 50 UNITS DAILY [facility] insulin pump cart,auto,B T-cntr (OMNIPOD 5 G6 INTRO KIT, GEN 5,) [facility] 8- 00:00: 00 11-02 00:00 :00 No 1{each} inject 1 Each under the skin SEE-INSTRU CTIONS. [facility] insulin pump cart,automa merlene,BT (OMNIPOD 5 G6 POD, GEN 5,) [facility] 06-23 00:00: 00 11-02 00:00 :00 No 1{each} inject 1 Each under the skin every 72 (seventy-t wo) hours. [facility] FREESTYLE MICKEY 2 SENSOR Kit 7-27 00:00: 00 10-30 00:00 :00 No [id number] 1{each} Apply 1 Each to skin every 14 (fourteen) days. Dx E11.65 [facility] insulin aspart RAPID (NOVOLOG U-100 INSULIN ASPART) 100 unit/mL injection 4-26 00:00: 00 08-30 00:00 :00 No [id number] USE IN INSULIN PUMP, UP TO 50 UNITS DAILY [facility] blood sugar diagnostic (FREESTYLE TEST) strip 2020-11 2 00:00: 00 Yes [id number] USE DIRECTED [facility] blood sugar diagnostic (FREESTYLE TEST) strip 2020-11 00:00: 00 10-24 00:00 :00 No [id number] USE DIRECTED [facility] Diclofenac Sodium 1 % gel 9- 00:00: 00 11-02 00:00 :00 No APPLY TO AFFECTED JOINT THREE TIMES A DAY NEEDED [facility] carvediloL 25 mg tablet 06-15 00:00: 00 02-20 00:00 :00 No 25mg Take 25 mg by mouth 2 (two) times daily. [facility] flash glucose scanning reader (FREESTYLE MICKEY 2 READER) Misc 04-15 00:00: 00 11-20 00:00 :00 No 1{each} 1 Each SEE-INSTRU CTIONS. [facility] flash glucose sensor (FREESTYLE MICKEY 2 SENSOR) Kit 04-15 00:00: 00 09-25 00:00 :00 No 1{each} 1 Each every 14 (fourteen) days. [facility] insulin aspart RAPID (NOVOLOG U-100 INSULIN ASPART) 100 unit/mL injection 03-27 00:00: 00 09-25 00:00 :00 No [id number] US IN INSULIN PUMP, UP TO 50 UNITS DAILY [facility] DEXCOM G6 SENSOR [facility] 03-25 00:00: 00 06-09 00:00 :00 No [id number] Use as directed one for 10 days [facility] DEXCOM G6 TRANSMITTER [facility] 03-25 00:00: 00 06-09 00:00 :00 No [id number] Use as directed One for 3 months [facility] aspirin 81 mg chewable tablet 2019-11 11:48: 00 Yes 81mg Take 81 mg by mouth daily. [facility] methazolami de (NEPTAZANE) 50 mg tablet 2019-11 11:48: 00 Yes 50mg Take 50 mg by mouth daily. [facility] dorzolamide HCl (DORZOLAMID E OPHTHALMIC) 2019-11 11:48: [address] in each eye. [facility] glucagon (GLUCAGON EMERGENCY KIT, HUMAN,) 1 mg injection 07-01 00:00: 00 Yes [id number] 1mg 1 mg by Intramuscu lar route as needed (hypoglyce padma and unconsciou s). [facility] blood sugar diagnostic (FREESTYLE TEST) strip 01-22 00:00: 00 10-20 00:00 :00 No [id number] Use as directed [facility] TRAVATAN Z 0.004 % ophthalmic drops 12-19 00:00: 00 Yes PUT 1 DROP INTO BOTH EYES AT BEDTIME [facility] Blood Glucose Control, Normal (GLUCOSE CONTROL) [facility] 2015-11 00:00: 00 Yes Use as directed, DX:E11.9 [facility] Blood Glucose Control, Normal (GLUCOSE CONTROL) [facility] 2015-11 00:00: 00 Yes Use as directed, DX:E11.9 [facility] atorvastati n (LIPITOR) 40 mg tablet 2015-11 00:00: 00 Yes [id number] 40mg Take 1 tablet by mouth at bedtime. [facility] amLODIPine (NORVASC) 10 mg tablet 2015-11 00:00: 00 11-02 00:00 :00 No [id number] 10mg Take 1 tablet by mouth daily. [facility] lisinopril (PRINIVIL,Z ESTRIL) 20 mg tablet 07-21 00:00: 00 11-02 00:00 :00 No [id number] 20mg Take 1 tablet by mouth daily. [facility] DIABETIC SU[facility]:00: 00 Yes use 5-6 times daily as directed. [facility] DIABETIC SUPPLIES, MISCELLAN. IN VITRO SOLN 01-12 00:00: 00 Yes use 5-6 times daily as directed. [facility] Immunizations Ordered Immunization Name Filled Immunization Name Date Status Comments Source SARS-COV-2 COVID-19 MODERNA VACCINE 2021-01-17 00:00:00 Completed [facility] SARS-COV-2 COVID-19 MODERNA VACCINE 2021-01-17 00:00:00 Completed [facility] SARS-COV-2 COVID-19 MODERNA VACCINE 2021-01-17 00:00:00 Completed [facility] SARS-COV-2 COVID-19 MODERNA VACCINE 2021-01-17 00:00:00 Completed [facility] SARS-COV-2 COVID-19 MODERNA VACCINE 2021-01-17 00:00:00 Completed [facility] SARS-COV-2 COVID-19 MODERNA 12+ YRS VACCINE 2021-01-17 00:00:00 Completed [facility] SARS-COV-2 COVID-19 MODERNA 12+ YRS VACCINE 2021-01-17 00:00:00 Completed [facility] SARS-COV-2 COVID-19 MODERNA 12+ YRS VACCINE 2021-01-17 00:00:00 Completed [facility] SARS-COV-2 COVID-19 MODERNA 12+ YRS VACCINE 2021-01-17 00:00:00 Completed [facility] SARS-COV-2 COVID-19 MODERNA 12+ YRS VACCINE 2021-01-17 00:00:00 Completed [facility] SARS-COV-2 COVID-19 MODERNA 12+ YRS VACCINE 2021-01-17 00:00:00 Completed [facility] SARS-COV-2 COVID-19 MODERNA 12+ YRS VACCINE 2021-01-17 00:00:00 Completed [facility] SARS-COV-2 COVID-19 MODERNA 12+ YRS VACCINE 2021-01-17 00:00:00 Completed [facility] SARS-COV-2 COVID-19 MODERNA 12+ YRS VACCINE 2021-01-17 00:00:00 Completed [facility] SARS-COV-2 COVID-19 MODERNA 12+ YRS VACCINE 2021-01-17 00:00:00 Completed [facility] SARS-COV-2 COVID-19 MODERNA 12+ YRS VACCINE 2021-01-17 00:00:00 Completed [facility] SARS-COV-2 COVID-19 MODERNA 12+ YRS VACCINE 2021-01-17 00:00:00 Completed [facility] SARS-COV-2 COVID-19 MODERNA 12+ YRS VACCINE 2021-01-17 00:00:00 Completed [facility] SARS-COV-2 COVID-19 MODERNA 12+ YRS VACCINE 2021-01-17 00:00:00 Completed [facility] SARS-COV-2 COVID-19 MODERNA 12+ YRS VACCINE 2021-01-17 00:00:00 Completed [facility] SARS-COV-2 COVID-19 MODERNA 12+ YRS VACCINE 2021-01-17 00:00:00 Completed [facility] SARS-COV-2 COVID-19 MODERNA 12+ YRS VACCINE 2021-01-17 00:00:00 Completed [facility] SARS-COV-2 COVID-19 MODERNA 12+ YRS VACCINE 2021-01-17 00:00:00 Completed [facility] SARS-COV-2 COVID-19 MODERNA 12+ YRS VACCINE 2021-01-17 00:00:00 Completed [facility] SARS-COV-2 COVID-19 MODERNA 12+ YRS VACCINE 2021-01-17 00:00:00 Completed [facility] SARS-COV-2 COVID-19 MODERNA 12+ YRS VACCINE 2021-01-17 00:00:00 Completed [facility] SARS-COV-2 COVID-19 MODERNA 12+ YRS VACCINE 2021-01-17 00:00:00 Completed [facility] SARS-COV-2 COVID-19 MODERNA 12+ YRS VACCINE 2021-01-17 00:00:00 Completed [facility] SARS-COV-2 COVID-19 MODERNA 12+ YRS VACCINE 2021-01-17 00:00:00 Completed [facility] SARS-COV-2 COVID-19 MODERNA 12+ YRS VACCINE 2021-01-17 00:00:00 Completed [facility] SARS-COV-2 COVID-19 MODERNA 12+ YRS VACCINE 2021-01-17 00:00:00 Completed [facility] SARS-COV-2 COVID-19 MODERNA 12+ YRS VACCINE 2021-01-17 00:00:00 Completed [facility] SARS-COV-2 COVID-19 MODERNA 12+ YRS VACCINE 2021-01-17 00:00:00 Completed [facility] SARS-COV-2 COVID-19 MODERNA 12+ YRS VACCINE 2021-01-17 00:00:00 Completed [facility] SARS-COV-2 COVID-19 MODERNA VACCINE 2020-12-20 00:00:00 Completed [facility] SARS-COV-2 COVID-19 MODERNA VACCINE 2020-12-20 00:00:00 Completed [facility] SARS-COV-2 COVID-19 MODERNA VACCINE 2020-12-20 00:00:00 Completed [facility] SARS-COV-2 COVID-19 MODERNA VACCINE 2020-12-20 00:00:00 Completed [facility] SARS-COV-2 COVID-19 MODERNA VACCINE 2020-12-20 00:00:00 Completed [facility] SARS-COV-2 COVID-19 MODERNA 12+ YRS VACCINE 2020-12-20 00:00:00 Completed [facility] SARS-COV-2 COVID-19 MODERNA 12+ YRS VACCINE 2020-12-20 00:00:00 Completed [facility] SARS-COV-2 COVID-19 MODERNA 12+ YRS VACCINE 2020-12-20 00:00:00 Completed [facility] SARS-COV-2 COVID-19 MODERNA 12+ YRS VACCINE 2020-12-20 00:00:00 Completed [facility] SARS-COV-2 COVID-19 MODERNA 12+ YRS VACCINE 2020-12-20 00:00:00 Completed [facility] SARS-COV-2 COVID-19 MODERNA 12+ YRS VACCINE 2020-12-20 00:00:00 Completed [facility] SARS-COV-2 COVID-19 MODERNA 12+ YRS VACCINE 2020-12-20 00:00:00 Completed [facility] SARS-COV-2 COVID-19 MODERNA 12+ YRS VACCINE 2020-12-20 00:00:00 Completed [facility] SARS-COV-2 COVID-19 MODERNA 12+ YRS VACCINE 2020-12-20 00:00:00 Completed [facility] SARS-COV-2 COVID-19 MODERNA 12+ YRS VACCINE 2020-12-20 00:00:00 Completed [facility] SARS-COV-2 COVID-19 MODERNA 12+ YRS VACCINE 2020-12-20 00:00:00 Completed [facility] SARS-COV-2 COVID-19 MODERNA 12+ YRS VACCINE 2020-12-20 00:00:00 Completed [facility] SARS-COV-2 COVID-19 MODERNA 12+ YRS VACCINE 2020-12-20 00:00:00 Completed [facility] SARS-COV-2 COVID-19 MODERNA 12+ YRS VACCINE 2020-12-20 00:00:00 Completed [facility] SARS-COV-2 COVID-19 MODERNA 12+ YRS VACCINE 2020-12-20 00:00:00 Completed [facility] SARS-COV-2 COVID-19 MODERNA 12+ YRS VACCINE 2020-12-20 00:00:00 Completed [facility] SARS-COV-2 COVID-19 MODERNA 12+ YRS VACCINE 2020-12-20 00:00:00 Completed [facility] SARS-COV-2 COVID-19 MODERNA 12+ YRS VACCINE 2020-12-20 00:00:00 Completed [facility] SARS-COV-2 COVID-19 MODERNA 12+ YRS VACCINE 2020-12-20 00:00:00 Completed [facility] SARS-COV-2 COVID-19 MODERNA 12+ YRS VACCINE 2020-12-20 00:00:00 Completed [facility] SARS-COV-2 COVID-19 MODERNA 12+ YRS VACCINE 2020-12-20 00:00:00 Completed [facility] SARS-COV-2 COVID-19 MODERNA 12+ YRS VACCINE 2020-12-20 00:00:00 Completed [facility] SARS-COV-2 COVID-19 MODERNA 12+ YRS VACCINE 2020-12-20 00:00:00 Completed [facility] SARS-COV-2 COVID-19 MODERNA 12+ YRS VACCINE 2020-12-20 00:00:00 Completed [facility] SARS-COV-2 COVID-19 MODERNA 12+ YRS VACCINE 2020-12-20 00:00:00 Completed [facility] SARS-COV-2 COVID-19 MODERNA 12+ YRS VACCINE 2020-12-20 00:00:00 Completed [facility] SARS-COV-2 COVID-19 MODERNA 12+ YRS VACCINE 2020-12-20 00:00:00 Completed [facility] SARS-COV-2 COVID-19 MODERNA 12+ YRS VACCINE 2020-12-20 00:00:00 Completed [facility] SARS-COV-2 COVID-19 MODERNA 12+ YRS VACCINE 2020-12-20 00:00:00 Completed [facility] Influenza Virus Vaccine Quad .5 mL IM 6+ MO 2020-07-02 00:00:00 Completed [facility] Influenza Virus Vaccine Quad .5 mL IM 6+ MO 2020-07-02 00:00:00 Completed [facility] Influenza Virus Vaccine Quad .5 mL IM 6+ MO 2020-07-02 00:00:00 Completed [facility] Influenza Virus Vaccine Quad .5 mL IM 6+ MO 2020-07-02 00:00:00 Completed [facility] Influenza Virus Vaccine Quad .5 mL IM 6+ MO 2020-07-02 00:00:00 Completed [facility] Influenza Virus Vaccine Quad .5 mL IM 6+ MO 2020-07-02 00:00:00 Completed [facility] Influenza Virus Vaccine Quad .5 mL IM 6+ MO 2020-07-02 00:00:00 Completed [facility] Influenza Virus Vaccine Quad .5 mL IM 6+ MO 2020-07-02 00:00:00 Completed [facility] Influenza Virus Vaccine Quad .5 mL IM 6+ MO 2020-07-02 00:00:00 Completed [facility] Influenza Virus Vaccine Quad .5 mL IM 6+ MO 2020-07-02 00:00:00 Completed [facility] Influenza Virus Vaccine Quad .5 mL IM 6+ MO 2020-07-02 00:00:00 Completed [facility] Influenza Virus Vaccine Quad .5 mL IM 6+ MO 2020-07-02 00:00:00 Completed [facility] Influenza Virus Vaccine Quad .5 mL IM 6+ MO 2020-07-02 00:00:00 Completed [facility] Influenza Virus Vaccine Quad .5 mL IM 6+ MO 2020-07-02 00:00:00 Completed [facility] Influenza Virus Vaccine Quad .5 mL IM 6+ MO 2020-07-02 00:00:00 Completed [facility] Influenza Virus Vaccine Quad .5 mL IM 6+ MO 2020-07-02 00:00:00 Completed [facility] Influenza Virus Vaccine Quad .5 mL IM 6+ MO 2020-07-02 00:00:00 Completed [facility] Influenza Virus Vaccine Quad .5 mL IM 6+ MO 2020-07-02 00:00:00 Completed [facility] Influenza Virus Vaccine Quad .5 mL IM 6+ MO 2020-07-02 00:00:00 Completed [facility] Influenza Virus Vaccine Quad .5 mL IM 6+ MO 2020-07-02 00:00:00 Completed [facility] Influenza Virus Vaccine Quad .5 mL IM 6+ MO 2020-07-02 00:00:00 Completed [facility] Influenza Virus Vaccine Quad .5 mL IM 6+ MO 2020-07-02 00:00:00 Completed [facility] Influenza Virus Vaccine Quad .5 mL IM 6+ MO 2020-07-02 00:00:00 Completed [facility] Influenza Virus Vaccine Quad .5 mL IM 6+ MO 2020-07-02 00:00:00 Completed [facility] Influenza Virus Vaccine Quad .5 mL IM 6+ MO 2020-07-02 00:00:00 Completed [facility] Influenza Virus Vaccine Quad .5 mL IM 6+ MO 2020-07-02 00:00:00 Completed [facility] Influenza Virus Vaccine Quad .5 mL IM 6+ MO 2020-07-02 00:00:00 Completed [facility] Influenza Virus Vaccine Quad .5 mL IM 6+ MO 2020-07-02 00:00:00 Completed [facility] Influenza Virus Vaccine Quad .5 mL IM 6+ MO 2020-07-02 00:00:00 Completed [facility] Influenza Virus Vaccine Quad .5 mL IM 6+ MO 2020-07-02 00:00:00 Completed [facility] Influenza Virus Vaccine Quad .5 mL IM 6+ MO 2020-07-02 00:00:00 Completed [facility] Influenza Virus Vaccine Quad .5 mL IM 6+ MO 2020-07-02 00:00:00 Completed [facility] Influenza Virus Vaccine Quad .5 mL IM 6+ MO 2020-07-02 00:00:00 Completed [facility] Influenza Virus Vaccine Quad .5 mL IM 6+ MO 2020-07-02 00:00:00 Completed [facility] SARS-COV-2 COVID-19 MODERNA 12+ YRS VACCINE Unknown Completed [facility] SARS-COV-2 COVID-19 MODERNA 12+ YRS VACCINE Unknown Completed [facility] Influenza Virus Vaccine Quad .5 mL IM 6+ MO (FLUZONE/FLULAVAL/F LUARIX) Unknown Completed [facility] SARS-COV-2 COVID-19 MODERNA 12+ YRS VACCINE Unknown Completed [facility] SARS-COV-2 COVID-19 MODERNA 12+ YRS VACCINE Unknown Completed [facility] Influenza Virus Vaccine Quad .5 mL IM 6+ MO (FLUZONE/FLULAVAL/F LUARIX) Unknown Completed [facility] SARS-COV-2 COVID-19 MODERNA 12+ YRS VACCINE Unknown Completed [facility] SARS-COV-2 COVID-19 MODERNA 12+ YRS VACCINE Unknown Completed [facility] Influenza Virus Vaccine Quad .5 mL IM 6+ MO (FLUZONE/FLULAVAL/F LUARIX) Unknown Completed [facility] SARS-COV-2 COVID-19 MODERNA 12+ YRS VACCINE Unknown Completed [facility] SARS-COV-2 COVID-19 MODERNA 12+ YRS VACCINE Unknown Completed [facility] Influenza Virus Vaccine Quad .5 mL IM 6+ MO (FLUZONE/FLULAVAL/F LUARIX) Unknown Completed [facility] SARS-COV-2 COVID-19 MODERNA 12+ YRS VACCINE Unknown Completed [facility] SARS-COV-2 COVID-19 MODERNA 12+ YRS VACCINE Unknown Completed [facility] Influenza Virus Vaccine Quad .5 mL IM 6+ MO (FLUZONE/FLULAVAL/F LUARIX) Unknown Completed [facility] SARS-COV-2 COVID-19 MODERNA 12+ YRS VACCINE Unknown Completed [facility] SARS-COV-2 COVID-19 MODERNA 12+ YRS VACCINE Unknown Completed [facility] Influenza Virus Vaccine Quad .5 mL IM 6+ MO (FLUZONE/FLULAVAL/F LUARIX) Unknown Completed [facility] SARS-COV-2 COVID-19 MODERNA 12+ YRS VACCINE Unknown Completed [facility] SARS-COV-2 COVID-19 MODERNA 12+ YRS VACCINE Unknown Completed [facility] Influenza Virus Vaccine Quad .5 mL IM 6+ MO (FLUZONE/FLULAVAL/F LUARIX) Unknown Completed [facility] SARS-COV-2 COVID-19 MODERNA 12+ YRS VACCINE Unknown Completed [facility] SARS-COV-2 COVID-19 MODERNA 12+ YRS VACCINE Unknown Completed [facility] Influenza Virus Vaccine Quad .5 mL IM 6+ MO (FLUZONE/FLULAVAL/F LUARIX) Unknown Completed [facility] SARS-COV-2 COVID-19 MODERNA 12+ YRS VACCINE Unknown Completed [facility] SARS-COV-2 COVID-19 MODERNA 12+ YRS VACCINE Unknown Completed [facility] Influenza Virus Vaccine Quad .5 mL IM 6+ MO (FLUZONE/FLULAVAL/F LUARIX) Unknown Completed [facility] SARS-COV-2 COVID-19 MODERNA 12+ YRS VACCINE Unknown Completed [facility] SARS-COV-2 COVID-19 MODERNA 12+ YRS VACCINE Unknown Completed [facility] Influenza Virus Vaccine Quad .5 mL IM 6+ MO (FLUZONE/FLULAVAL/F LUARIX) Unknown Completed [facility] SARS-COV-2 COVID-19 MODERNA 12+ YRS VACCINE Unknown Completed [facility] SARS-COV-2 COVID-19 MODERNA 12+ YRS VACCINE Unknown Completed [facility] Influenza Virus Vaccine Quad .5 mL IM 6+ MO (FLUZONE/FLULAVAL/F LUARIX) Unknown Completed [facility] SARS-COV-2 COVID-19 MODERNA 12+ YRS VACCINE Unknown Completed [facility] SARS-COV-2 COVID-19 MODERNA 12+ YRS VACCINE Unknown Completed [facility] Influenza Virus Vaccine Quad .5 mL IM 6+ MO (FLUZONE/FLULAVAL/F LUARIX) Unknown Completed [facility] SARS-COV-2 COVID-19 MODERNA 12+ YRS VACCINE Unknown Completed [facility] SARS-COV-2 COVID-19 MODERNA 12+ YRS VACCINE Unknown Completed [facility] Influenza Virus Vaccine Quad .5 mL IM 6+ MO (FLUZONE/FLULAVAL/F LUARIX) Unknown Completed [facility] SARS-COV-2 COVID-19 MODERNA 12+ YRS VACCINE Unknown Completed [facility] SARS-COV-2 COVID-19 MODERNA 12+ YRS VACCINE Unknown Completed [facility] Influenza Virus Vaccine Quad .5 mL IM 6+ MO (FLUZONE/FLULAVAL/F LUARIX) Unknown Completed [facility] SARS-COV-2 COVID-19 MODERNA 12+ YRS VACCINE Unknown Completed [facility] SARS-COV-2 COVID-19 MODERNA 12+ YRS VACCINE Unknown Completed [facility] Influenza Virus Vaccine Quad .5 mL IM 6+ MO (FLUZONE/FLULAVAL/F LUARIX) Unknown Completed [facility] SARS-COV-2 COVID-19 MODERNA 12+ YRS VACCINE Unknown Completed [facility] SARS-COV-2 COVID-19 MODERNA 12+ YRS VACCINE Unknown Completed [facility] Influenza Virus Vaccine Quad .5 mL IM 6+ MO (FLUZONE/FLULAVAL/F LUARIX) Unknown Completed [facility] SARS-COV-2 COVID-19 MODERNA 12+ YRS VACCINE Unknown Completed [facility] SARS-COV-2 COVID-19 MODERNA 12+ YRS VACCINE Unknown Completed [facility] Influenza Virus Vaccine Quad .5 mL IM 6+ MO (FLUZONE/FLULAVAL/F LUARIX) Unknown Completed [facility] SARS-COV-2 COVID-19 MODERNA 12+ YRS VACCINE Unknown Completed [facility] SARS-COV-2 COVID-19 MODERNA 12+ YRS VACCINE Unknown Completed [facility] Influenza Virus Vaccine Quad .5 mL IM 6+ MO (FLUZONE/FLULAVAL/F LUARIX) Unknown Completed [facility] SARS-COV-2 COVID-19 MODERNA 12+ YRS VACCINE Unknown Completed [facility] SARS-COV-2 COVID-19 MODERNA 12+ YRS VACCINE Unknown Completed [facility] Influenza Virus Vaccine Quad .5 mL IM 6+ MO (FLUZONE/FLULAVAL/F LUARIX) Unknown Completed [facility] SARS-COV-2 COVID-19 MODERNA 12+ YRS VACCINE Unknown Completed [facility] SARS-COV-2 COVID-19 MODERNA 12+ YRS VACCINE Unknown Completed [facility] Influenza Virus Vaccine Quad .5 mL IM 6+ MO (FLUZONE/FLULAVAL/F LUARIX) Unknown Completed [facility] SARS-COV-2 COVID-19 MODERNA 12+ YRS VACCINE Unknown Completed [facility] SARS-COV-2 COVID-19 MODERNA 12+ YRS VACCINE Unknown Completed [facility] Influenza Virus Vaccine Quad .5 mL IM 6+ MO (FLUZONE/FLULAVAL/F LUARIX) Unknown Completed [facility] SARS-COV-2 COVID-19 MODERNA 12+ YRS VACCINE Unknown Completed [facility] SARS-COV-2 COVID-19 MODERNA 12+ YRS VACCINE Unknown Completed [facility] Influenza Virus Vaccine Quad .5 mL IM 6+ MO (FLUZONE/FLULAVAL/F LUARIX) Unknown Completed [facility] SARS-COV-2 COVID-19 MODERNA 12+ YRS VACCINE Unknown Completed [facility] SARS-COV-2 COVID-19 MODERNA 12+ YRS VACCINE Unknown Completed [facility] Influenza Virus Vaccine Quad .5 mL IM 6+ MO (FLUZONE/FLULAVAL/F LUARIX) Unknown Completed [facility] SARS-COV-2 COVID-19 MODERNA 12+ YRS VACCINE Unknown Completed [facility] SARS-COV-2 COVID-19 MODERNA 12+ YRS VACCINE Unknown Completed [facility] Influenza Virus Vaccine Quad .5 mL IM 6+ MO (FLUZONE/FLULAVAL/F LUARIX) Unknown Completed [facility] SARS-COV-2 COVID-19 MODERNA 12+ YRS VACCINE Unknown Completed [facility] SARS-COV-2 COVID-19 MODERNA 12+ YRS VACCINE Unknown Completed [facility] Influenza Virus Vaccine Quad .5 mL IM 6+ MO (FLUZONE/FLULAVAL/F LUARIX) Unknown Completed [facility] Vital Signs Vital Name Observation Time Observation Value Comments S ource Systolic blood pressure 2024-02-21 17:36:00 100 mm[Hg] [facility] Diastolic blood pressure 2024-02-21 17:36:00 63 mm[Hg] [facility] Heart rate 2024-02-21 17:36:00 73 /min Un[facility] Respiratory rate 2024-02-21 17:36:00 18 /min [facility] Body height 2024-02-21 17:36:00 142.2 cm [facility] Body weight 2024-02-21 17:36:00 59.966 kg [facility] BMI 2024-02-21 17:36:00 29.64 kg/m2 [facility] Oxygen saturation in Arterial blood by Pulse oximetry 2024-02-21 17:36:00 100 /min [facility] Systolic blood pressure 2023-09-13 16:25:00 115 mm[Hg] [facility] Diastolic blood pressure 2023-09-13 16:25:00 69 mm[Hg] [facility] Heart rate 2023-09-13 16:25:00 74 /min Unive [facility] Body weight 2023-09-13 16:25:00 58.242 [facility] BMI 2023-09-13 16:25:00 28.79 kg/m2 [facility] Oxygen saturation in Arterial blood by Pulse oximetry 2023-09-13 16:25:00 100 /min [facility] Systolic blood pressure 2023-03-22 16:49:00 103 mm[Hg] [facility] Diastolic blood pressure 2023-03-22 16:49:00 66 mm[Hg] [facility] Heart rate 2023-03-22 16:49:00 85 /[facility] Respiratory rate 2023-03-22 16:49:00 17 /min [facility] Body height 2023-03-22 16:49:00 142.2 cm [facility] Body weight 2023-03-22 16:49:00 60.691 kg [facility] BMI 2023-03-22 16:49:00 30.00 kg/m2 [facility] Oxygen saturation in Arterial blood by Pulse oximetry 2023-03-22 16:49:00 100 /min [facility] Systolic blood pressure 2022-11-02 19:17:00 92 mm[Hg] [facility] Diastolic blood pressure 2022-11-02 19:17:00 62 mm[Hg] [facility] Heart rate 2022-11-02 19:17:00 87 /min [facility] Body height 2022-11-02 19:17:00 142.2 cm [facility] Body weight 2022-11-02 19:17:00 71.215 kg [facility] BMI 2022-11-02 19:17:00 35.20 kg/m2 [facility] Oxygen saturation in Arterial blood by Pulse oximetry 2022-11-02 19:17:00 96 /min [facility] Procedures Procedure Date / Time Performed Performing Clinician Source [id number] 2024-05-08 00:00:00 [facility] [id number] 2024-05-08 00:00:00 [facility] [id number] 2024-05-08 00:00:00 [facility] [id number] 2024-05-08 00:00:00 [facility] [id number] 2024-05-08 00:00:00 [facility] [id number] 2024-05-08 00:00:00 [facility] POCT HEMOGLOBIN A1C TEST 2024-02-21 17:52:00 David Yeboah [facility] POCT HEMOGLOBIN A1C TEST 2023-09-13 16:25:00 David Yeboah [facility] CONSENT/REFUSAL FOR DIAGNOSIS AND TREATMENT 2023-09-13 16:00:41 Doctor Unassigned, [facility] [id number] 2023-07-25 00:00:00 [facility] [id number] 2023-07-22 00:00:00 CHAAB.01 [facility] [id number] 2023-07-22 00:00:00 CHAAB.01 [facility] [id number] 2023-07-22 00:00:00 MARIANA [facility] [id number] 2023-07-22 00:00:00 CHAAB.01 [facility] [id number] 2023-07-21 00:00:00 ALDMO [facility] [id number] 2023-07-21 [id number] 2023-07-21 00:00:00 ALDMO [facility] [id number] 2023-07-21 00:00:00 CHAAB.01 [facility] [id number] 2023-07-21 00:00:00 CHAAB.01 [facility] [id number] 2023-07-20 00:00:00 [facility] [id number] 2023-07-18 00:00:00 [facility] [id number] 2023-07-16 00:00:00 [facility] [id number] 2023-07-15 00:00:00 [facility] [id number] 2023-07-14 00:00:00 [facility] [id number] 2023-07-12 00:00:00 [facility] [id number] 2023-07-12 00:00:00 [facility] [id number] 2023-07-12 00:00:00 [facility] [id number] 2023-07-12 00:00:00 [facility] EXTERNAL PROVIDER RECORDS 2023-05-18 05:01:00 Do ctor Unassigned, [facility] POCT HEMOGLOBIN A1C TEST 2023-03-22 17:03:00 David Yeboah [facility] DIABETES TESTING REPORTS 2023-03-22 05:01:00 Doc tor Unassigned, [facility] INSURANCE CORRESPONDENCE 2022-11-06 06:01:00 Doc tor Unassigned, [facility] POCT HEMOGLOBIN A1C TEST 2022-11-02 19:22:00 David Yeboah [facility] INSURANCE CORRESPONDENCE 2022-06-24 05:01:00 Doc tor Unassigned, [facility] SCANNED LAB RESULTS 2022-04-05 05:01:00 Doctor Luis Eduardo cornelius, [facility] SCANNED LAB RESULTS 2022-03-04 05:01:00 Doctor Luis Eduardo cornelius, [facility] Encounters Start Date/Time End Date/Time Encounter Type Admission Type Attending [facility] Facility Care Department Encounter ID Source 2024-05-15 00:00:00 2024-05-18 08:15:34 Telephone [facility] 1.2840.114 350.1.13.10 4.2.7.2.686 [id number] 220 [id number] [facility] 2024-05-17 00:00:00 2024-05-17 00:00:00 Patient Secure Msg Obinna [facility] EDVIN?[facility] 1.2.840.114 350.1.13.10 4.2.7.2.686 [id number] 220 [id number] [facility] 2024-05-12 00:00:00 2024-05-15 10:07:05 Refill bOinna [facility] EDVIN?[facility] 1.2.840.114 350.1.13.10 4.2.7.2.686 [id number] 220 [id number] [facility] 2024-05-10 00:00:00 2024-05-14 14:38:44 Telephone Obinna [facility] EDVIN?[facility] 1.2.840.114 350.1.13.10 4.2.7.2.686 [id number] 220 [id number] [facility] 2024-05-12 00:00:00 2024-05-12 00:00:00 Refill Obinna [facility] EDVIN?[facility] 1.2.840.114 350.1.13.10 4.2.7.2.686 [id number] 220 [id number] [facility] 2024-05-11 00:00:00 2024-05-11 09:54:07 Refill Obinna [facility] EDVIN?[facility] 1.2.840.114 350.1.13.10 4.2.7.2.686 [id number] 220 [id number] [facility] 2024-05-08 19:33:00 2024-05-09 17:23:00 Inpatient Kenzie Victoria [facility] MEDI.01 [id number] 84 [facility] 2024-05-08 00:00:00 2024-05-08 00:00:00 Refill Obinna [facility] EDVIN?[facility] 1.2.840.114 350.1.13.10 4.2.7.2.686 [id number] 220 [id number] [facility] 2024-05-04 00:00:00 2024-05-04 11:07:30 Refill Kennedykaryn Cici [facility] EDVIN?[facility] 1..840.114 350.1.13.10 4.2.7.2.686 [id number] 220 [id number] [facility] 2024-04-29 00:00:00 2024-04-30 11:26:53 Refill [facility] 1.2.840.114 350.1.13.10 4.2.7.2.686 [id number] 220 [id number] [facility] 2024-04-19 05:24:00 2024-04-19 05:24:00 Outpatient JANET OakleyemaLuis Carlos [facility] DAYS [id number] 93 [facility] 2024-04-03 00:00:00 2024-04-03 10:34:37 Telephone Yeboah [facility] EDVIN?[facility] 1.2.840.114 350.1.13.10 4.2.7.2.686 [id number] 220 [id number] [facility] 2024-03-22 05:12:00 2024-03-22 05:12:00 Outpatient Luis Carlos Grover [facility] DAYS [id number] 83 [facility] 2024-02-21 13:00:00 2024-02-21 15:30:49 Outpatient R OBINNA [facility] [id number] [facility] 2024-02-21 13:00:00 2024-02-21 15:30:49 Office Visit Obinna [facility] 1.2.840.114 350.1.13.10 4.2.7.2.686 [id number] 220 [id number] [facility] 2024-01-26 05:16:00 2024-01-26 05:16:00 Outpatient Luis Carlos Grover [facility] DAYS [id number] 24 [facility] 2023-11-12 00:00:00 2023-11-12 00:00:00 Patient Secure Msg Doctor Unassigned, [facility] 1.2.840.114 350.1.13.10 4.2.7.2.686 [id number] 220 [id number] [facility] 2023-11-02 00:00:00 2023-11-02 00:00:00 Telephone Obinna [facility] 1.2.840.114 350.1.13.10 4.2.7.2.686 [id number] 220 [id number] [facility] 2023-11-01 00:00:00 2023-11-01 00:00:00 Telephone Obinna [facility] 1.2.840.114 350.1.13.10 4.2.7.2.686 [id number] 220 [id number] [facility] 2023-10-27 00:00:00 2023-10-27 00:00:00 Refill Obinna [facility] EDVIN?[facility] 1.2.840.114 350.1.13.10 4.2.7.2.686 [id number] [facility] 2023-10-24 00:00:00 2023-10-24 00:00:00 Refill Obinna [facility] EDVIN?[facility] 1.284.114 350.1.13.10 4.2.7.2.686 [id number] [facility] 2023-10-24 00:00:00 2023-10-24 00:00:00 Refill Sylvester Montenegro [facility] 1..840.114 350.1.13.10 4.2.7.2.686 [id number] 220 [id number] [facility] 2023-09-15 05:29:00 2023-09-15 05:29:00 Outpatient JANET Heaven Luis Carlos [facility]AC[facility] DAYS [id number] 52 [facility] 2023-09-14 00:00:00 2023-09-14 00:00:00 Refthierno Yeboah [facility] EDVIN?[facility] 1.840.114 350.1.13.10 4.2.7.2.686 [id number] 220 [id number] [facility] 2023-09-14 00:00:00 2023-09-14 00:00:00 Patient Secure Msg Obinna [facility] EDVIN?[facility] 1.284.114 350.1.13.10 4.2.7.2.686 [id number] 220 [id number] [facility] 2023-09-13 11:30:00 2023-09-13 12:25:13 Outpatient R OBINNA [facility] [id number] [facility] 2023-09-13 11:30:00 2023-09-13 12:25:13 Office Visit Obinna [facility] 1.2.114 350.1.13.10 4.2.7.2.686 [id number] 220 [id number] [facility] 2023-09-13 00:00:00 2023-09-13 00:00:00 Orders Only Doctor Unassigned, [facility] 1.0.114 350.1.13.10 4.2.7.2.686 [id number] [facility] 2023-09-01 05:28:00 2023-09-02 09:43:00 Inpatient Donna Ramirez [facility] MEDI.01 [id number] 30 [facility] 2023-07-12 12:07:00 2023-07-26 11:20:00 Inpatient Tanvir Bacon [facility] [id number] 33 [facility] 2023-05-31 00:00:00 2023-05-31 00:00:00 Patient Secure Msg Doctor Unassigned, [facility] 1.114 350.1.13.10 4.2.7.2.686 [id number] 220 [id number] [facility] 2023-05-18 00:00:00 2023-05-18 00:00:00 Orders Only Doctor Unassigned, [facility] 1.2.114 350.1.13.10 4.2.7.2.686 [id number] [facility] 2023-04-17 00:00:00 2023-04-17 00:00:00 Refill Obinna [facility] 1.2114 350.1.13.10 4.2.7.2.686 [id number] [facility] 2023-03-22 12:00:00 2023-03-22 13:02:19 Outpatient R OBINNA [facility] [id number] [facility] 2023-03-22 12:00:00 2023-03-22 13:02:19 Office Visit [facility] [place] [place] 1.2840.114 350.1.13.10 4.2.7.2.686 [id number] 220 [id number] [facility] 2023-03-22 00:00:00 2023-03-22 00:00:00 Refill Obinna [facility] EDVIN?[facility] 1.2840.114 350.1.13.10 4.2.7.2.686 [id number] 220 [id number] [facility] 2023-03-22 00:00:00 2023-03-22 00:00:00 Orders Only Doctor Unassigned, [facility] 1.2840.114 350.1.13.10 4.2.7.2.686 [id number] [facility] 2023-03-08 00:00:00 2023-03-08 00:00:00 Refill Obinna [facility] EDVIN?[facility] 1.840.114 350.1.13.10 4.2.7.2.686 [id number] 220 [id number] [facility] 2023-03-06 00:00:00 2023-03-06 00:00:00 Patient Secure Msg bOinna [facility] EDVIN?[facility] 1.284.114 350.1.13.10 4.2.7.2.686 [id number] 220 [id number] [facility] 2023-03-01 00:00:00 2023-03-01 00:00:00 Refill Obinna [facility] EDVIN?[facility] 1.2840.114 350.1.13.10 4.2.7.2.686 [id number] 220 [id number] [facility] 2023-03-01 00:00:00 2023-03-01 00:00:00 Patient Secure Msg Doctor Unassigned, [facility] 1.2840.114 350.1.13.10 4.2.7.2.686 [id number] [facility] 2023-02-23 00:00:00 2023-02-23 00:00:00 Refill Yeboah, [facility] EDVIN?[facility] 1.2840.114 350.1.13.10 4.2.7.2.686 [id number] [facility] 2023-02-21 00:00:00 2023-02-21 00:00:00 Telephone Yeboah [facility] EDVIN?[facility] 1.2840.114 350.1.13.10 4.2.7.2.686 [id number] [facility] 2022-11-20 00:00:00 2022-11-20 00:00:00 Refill Yeboah, [facility] EDVIN?[facility] 1.2840.114 350.1.13.10 4.2.7.2.686 [id number] [facility] 2022-11-20 00:00:00 2022-11-20 00:00:00 Refill Yeboah, [facility] EDVIN?[facility] 1.2840.114 350.1.13.10 4.2.7.2.686 [id number] [facility] 2022-11-20 00:00:00 2022-11-20 00:00:00 Patient Secure Msg Obinna, [facility] EDVIN?[facility] 1.0.114 350.1.13.10 4.2.7.2.686 [id number] [facility] 2022-11-16 00:00:00 2022-11-16 00:00:00 Telephone Obinna [facility] EDVIN?[facility] 1.840.114 350.1.13.10 4.2.7.2.686 [id number] [facility] 2022-11-06 00:00:00 2022-11-06 00:00:00 [facility] 1.0.114 350.1.13.10 4.2.7.2.686 [id number] 220 [id number] [facility] 2022-11-06 00:00:00 2022-11-06 00:00:00 Orders Only Doctor Unassigned, [facility] 1.0.114 350.1.13.10 4.2.7.2.686 [id number] [facility] 2022-11-02 13:30:00 2022-11-02 14:17:35 Outpatient R [facility]INNA [facility] [id number] [facility] 2022-11-02 13:30:00 2022-11-02 14:17:35 Office Visit [facility] 1.0.114 350.1.13.10 4.2.7.2.686 [id number] 220 [id number] [facility] 2022-10-30 00:00:00 2022-10-30 00:00:00 Patient Secure Msg [facility] 1.0.114 350.1.13.10 4.2.7.2.686 [id number] 220 [id number] [facility] 2022-10-30 00:00:00 2022-10-30 00:00:00 Patient Secure Msg Obinna [facility] EDVIN?[facility] 1.2.840.114 350.1.13.10 4.2.7.2.686 [id number] 220 [id number] [facility] 2022-10-30 00:00:00 2022-10-30 00:00:00 Refill Obinna [facility] EDVIN?MARGARITA [facility] 1.2.840.114 350.1.13.10 4.2.7.2.686 [id number] 220 [id number] [facility] 2022-10-28 00:00:00 2022-10-28 00:00:00 Patient Secure Msg Obinna [facility]IN[facility] 1.2.840.114 350.1.13.10 4.2.7.2.686 [id number] [id number] [facility] 2022-10-15 00:00:00 2022-10-15 00:00:00 Telephone Obinna [facility] EDVIN?[facility] MED[facility] OFFICE BUILD[facility] 1.2.840.114 350.1.13.10 4.2.7.2.686 [id number] 220 [id number] [facility] 2022-09-09 00:00:00 2022-09-09 00:00:00 Telephone [facility]na [facility] [place] [place] 1.2.840.114 350.1.13.10 4.2.7.2.686 [id number] 220 [id number] [facility] 2022-08-29 00:00:00 2022-08-29 00:00:00 Refill Obinna [facility] [place] [place]?MARGARITA [facility] OFF[facility] 1.2.840.114 350.1.13.10 4.2.7.2.686 [id number] 220 [id number] [facility] 2022-07-08 00:00:00 2022-07-08 00:00:00 [facility] 1..114 350.1.13.10 4.2.7.2.686 [id number] 220 [id number] [facility] 2022-06-24 00:00:00 2022-06-24 00:00:00 Orders Only Doctor Unassigned, Radium [facility] 1..114 350.1.13.10 4.2.7.2.686 [id number] 009 [id number] [facility] 2022-06-23 00:00:00 2022-06-23 00:00:00 [facility] 1.114 350.1.13.10 4.2.7.2.686 [id number] 220 [id number] [facility] 2022-06-09 09:30:00 2022-06-09 10:46:39 Outpatient R OBINNA [facility] [id number] [facility] 2022-06-09 09:30:00 2022-06-09 10:46:39 Office Visit Yeboah [facility] [place]?[facility] MEDICAL OFFICE BUILDING 1.84.114 350.1.13.10 4.2.7.2.686 [id number] 220 [id number] [facility] 2022-06-09 09:30:00 2022-06-09 09:30:00 [facility] [id number] [facility] 2022-06-09 00:00:00 2022-06-09 00:00:00 Orders Only Doctor Unassigned, Radium [facility] 1.0.114 350.1.13.10 4.2.7.2.686 [id number] 009 [id number] [facility] 2022-04-22 00:00:00 2022-04-22 00:00:00 Telephone Ob[facility]na [facility] 1.2840.114 350.1.13.10 4.2.7.2.686 [id number] 220 [id number] [facility] 2022-04-16 00:00:00 2022-04-16 00:00:00 Telephone [facility] 1.2840.114 350.1.13.10 4.2.7.2.686 [id number] 220 [id number] [facility] 2022-04-05 00:00:00 2022-04-05 00:00:00 Orders Only Doctor Unassigned, Radium [facility] 1.2.840.114 350.1.13.10 4.2.7.2.686 [id number] 009 [id number] [facility] 2022-03-29 00:00:00 2022-03-29 00:00:00 Patient Secure Msg [facility] 1.840.114 350.1.13.10 4.2.7.2.686 [id number] 220 [id number] [facility] 2022-03-29 00:00:00 2022-03-29 00:00:00 Telephone Ob[facility]na [facility] 1.2840.114 350.1.13.10 4.2.7.2.686 [id number] 220 [id number] [facility] 2022-03-29 00:00:00 2022-03-29 00:00:00 Patient Secure Msg [facility] 1.2840.114 350.1.13.10 4.2.7.2.686 [id number] 220 [id number] [facility] 2022-03-16 00:00:00 2022-03-16 00:00:00 Telephone Obinna [facility] EMMANUEL [facility] 1.2.840.114 350.1.13.10 4.2.7.2.686 [id number] 220 [id number] [facility] 2022-03-09 00:00:00 2022-03-09 00:00:00 Refill Obinna [facility] BUILDING 1.2.840.114 350.1.13.10 4.2.7.2.686 [id number] 220 [id number] [facility] 2022-03-09 00:00:00 2022-03-09 00:00:00 Refill Obinna [facility] BUILDING 1.2.840.114 350.1.13.10 4.2.7.2.686 [id number] 220 [id number] [facility] 2022-03-09 00:00:00 2022-03-09 00:00:00 Refill Obinna [facility] 1.2.840.114 350.1.13.10 4.2.7.2.686 [id number] 220 [id number] [facility] 2022-03-09 00:00:00 2022-03-09 00:00:00 Refill Obinna [facility] 1.2.840.114 350.1.13.10 4.2.7.2.686 [id number] 220 [id number] [facility] 2022-03-04 00:00:00 2022-03-04 00:00:00 Orders Only Doctor Unassigned, Radium [facility] 1.2.840.114 350.1.13.10 4.2.7.2.686 [id number] 009 [id number] [facility] 2021-12-22 12:00:00 2021-12-22 13:18:36 Outpatient R OBINNA [facility] [id number] [facility] 2021-12-22 12:00:00 2021-12-22 13:18:36 Office Visit Obinna [facility] EMMANUEL [facility] 1.2840.114 350.1.13.10 4.2.7.2.686 [id number] 220 [id number] [facility] 2021-12-22 00:00:00 2021-12-22 00:00:00 Orders Only Doctor Unassigned, Radium [facility] 1.2840.114 350.1.13.10 4.2.7.2.686 [id number] 009 [id number] [facility] 2021-10-20 00:00:00 2021-10-20 00:00:00 Sylvester [facility] 1.840.114 350.1.13.10 4.2.7.2.686 [id number] 220 [id number] [facility] 2021-09-25 00:00:00 2021-09-25 00:00:00 Refill Obinna [facility] 1.2840.114 350.1.13.10 4.2.7.2.686 [id number] 220 [id number] [facility] 2021-09-25 00:00:00 2021-09-25 00:00:00 Refill Obinna [facility] BUILDING 1.2840.114 350.1.13.10 4.2.7.2.686 [id number] 220 [id number] [facility] 2021-09-22 00:00:00 2021-09-22 00:00:00 Refill Obinna [facility] BUILDING 1.2840.114 350.1.13.10 4.2.7.2.686 [id number] 220 [id number] [facility] 2021-08-11 16:00:00 2021-08-11 16:00:00 Outpatient R OBINNA [facility] [id number] [facility] 2021-08-11 12:47:49 2021-08-11 14:19:45 Office Visit [facility]na [facility]ita [facility] Medical Office Building 1.840.114 350.1.13.10 4.2.7.2.686 [id number] 220 [id number] [facility] 2021-08-11 00:00:00 2021-08-11 00:00:00 Orders Only Doctor Unassigned, Radium [facility] 1.114 350.1.13.10 4.2.7.2.686 [id number] 009 [id number] [facility] 2021-08-11 00:00:00 2021-08-11 00:00:00 Telephone [facility] Office Building 1.84.114 350.1.13.10 4.2.7.2.686 [id number] 220 [id number] [facility] 2021-07-28 10:30:00 2021-07-28 10:30:00 Outpatient R OBINNA [facility] [id number] [facility] 2021-05-08 00:00:00 2021-05-08 00:00:00 Patient Secure Msg Obinna [facility] BUILDING 1.84.114 350.1.13.10 4.2.7.2.686 [id number] 220 [id number] [facility] 2021-05-08 00:00:00 2021-05-08 00:00:00 Patient Secure [facility] 1.114 350.1.13.10 4.2.7.2.686 [id number] 220 [id number] [facility] 2021-04-09 00:00:00 2021-04-09 00:00:00 Orders Only Doctor Unassigned, Radium [facility] 1.2.840.114 350.1.13.10 4.2.7.2.686 [id number] 009 [id number] [facility] 2021-04-06 00:00:00 2021-04-06 00:00:00 Telephone Obinna [facility] 1.2.840.114 350.1.13.10 4.2.7.2.686 [id number] 220 [id number] [facility] 2021-04-01 00:00:00 2021-04-01 00:00:00 Patient Secure Msg Ob[facility]na [facility] 1.2.840.114 350.1.13.10 4.2.7.2.686 [id number] 220 [id number] [facility] 2021-03-30 00:00:00 2021-03-30 00:00:00 Refill Ob[facility] 1.2.840.114 350.1.13.10 4.2.7.2.686 [id number] 220 [id number] [facility] 2021-03-27 00:00:00 2021-03-27 00:00:00 Patient Secure [facility] 1.2.840.114 350.1.13.10 4.2.7.2.686 [id number] 220 [id number] [facility] 2021-03-26 00:00:00 2021-03-26 00:00:00 Refill [facility] 1.2.840.114 350.1.13.10 4.2.7.2.686 [id number] 220 [id number] [facility] 2021-03-26 00:00:00 2021-03-26 00:00:00 Telephone Obinna [facility] 1.2.840.114 350.1.13.10 4.2.7.2.686 [id number] 220 [id number] [facility] 2021-03-25 10:45:02 2021-03-25 12:10:14 Office Visit Obinna [facility] 1.2.840.114 350.1.13.10 4.2.7.2.686 [id number] 220 [id number] [facility] 2021-03-25 11:00:00 2021-03-25 11:00:00 Outpatient R OBINNA [facility] [id number] [facility] 2021-03-25 00:00:00 2021-03-25 00:00:00 Orders Only Doctor Unassigned, Radium [facility] 1.2.840.114 350.1.13.10 4.2.7.2.686 [id number] [id number] [facility] 2021-03-13 00:00:00 2021-03-13 00:00:00 Orders Only Doctor Unassigned, Radium [facility] 1.2.840.114 350.1.13.10 4.2.7.2.686 [id number] 009 [id number] [facility] 2021-03-12 00:00:00 2021-03-12 00:00:00 Telephone Obinna [facility] 1.2.840.114 350.1.13.10 4.2.7.2.686 [id number] 220 [id number] [facility] 2021-01-17 08:10:00 2021-01-17 08:10:00 Outpatient [facility] [id number] [facility] 2020-12-20 08:00:00 2020-12-20 08:00:00 Outpatient [facility] [id number] [facility] 2020-11-04 11:20:30 2020-11-04 12:25:53 Office Visit Alessandro Yeboah [facility] 1.2.840.114 350.1.13.10 4.2.7.2.686 [id number] 220 [id number] [facility] 2020-11-04 11:30:00 2020-11-04 11:30:00 Outpatient R OBINNA [facility] [id number] [facility] 2020-11-04 00:00:00 2020-11-04 00:00:00 Orders Only Doctor Unassigned, Radium [facility] 1.2.840.114 350.1.13.10 4.2.7.2.686 [id number] 009 [id number] [facility] 2020-10-31 00:00:00 2020-10-31 00:00:00 Telephone Obinna [facility] 1.2.840.114 350.1.13.10 4.2.7.2.686 [id number] 220 [id number] [facility] 2020-10-29 00:00:00 2020-10-29 00:00:00 Refill Obinna [facility] 1.2.840.114 350.1.13.10 4.2.7.2.686 [id number] 220 [id number] [facility] 2020-10-17 00:00:00 2020-10-17 00:00:00 Refill Obinna [facility] 1.2.840.114 350.1.13.10 4.2.7.2.686 [id number] 220 [id number] [facility] 2020-07-01 11:00:00 2020-07-01 11:00:00 Outpatient R YEBOAH [facility] [id number] [facility] 2020-07-01 08:08:16 2020-07-01 08:38:16 Telemedici ne Visit Yeboah, [facility] 1.2.840.114 350.1.13.10 4.2.7.2.686 [id number] 220 [id number] [facility] 2020-07-01 00:00:00 2020-07-01 00:00:00 Orders Only Doctor Unassigned, Radium [facility] 1.2.840.114 350.1.13.10 4.2.7.2.686 [id number] 009 [id number] [facility] 2020-05-07 00:00:00 2020-05-07 00:00:00 Telephone Obinna [facility] 1.2.840.114 350.1.13.10 4.2.7.2.686 [id number] 220 [id number] [facility] 2020-03-25 08:07:43 2020-03-26 08:25:32 Telemedici ne Visit Obinna [facility] 1.2.840.114 350.1.13.10 4.2.7.2.686 [id number] 220 [id number] [facility] 2020-03-26 00:00:00 2020-03-26 00:00:00 Telephone Obinna [facility] 1.2.840.114 350.1.13.10 4.2.7.2.686 [id number] 220 [id number] [facility] 2020-03-26 00:00:00 2020-03-26 00:00:00 Orders Only Doctor Unassigned, Radium [facility] 1.2.840.114 350.1.13.10 4.2.7.2.686 [id number] 009 [id number] [facility] 2020-03-25 15:30:00 2020-03-25 15:30:00 Outpatient R OBINNA [facility] [id number] [facility] 2020-03-12 00:00:00 2020-03-12 00:00:00 Telephone Yeboah, [facility] 1.2840.114 350.1.13.10 4.2.7.2.686 [id number] 220 [id number] [facility] 2020-03-11 00:00:00 2020-03-11 00:00:00 Telephone Yeboah, [facility] 1.2840.114 350.1.13.10 4.2.7.2.686 [id number] 220 [id number] [facility] 2020-03-10 00:00:00 2020-03-10 00:00:00 Orders Only Doctor Unassigned, Radium [facility] 1.20.114 350.1.13.10 4.2.7.2.686 [id number] 009 [id number] [facility] 2020-03-06 00:00:00 2020-03-06 00:00:00 Telephone Yeboah, [facility] 1.2840.114 350.1.13.10 4.2.7.2.686 [id number] 220 [id number] [facility] 2020-03-04 00:00:00 2020-03-04 00:00:00 Telephone Yeboah, [facility] 1.840.114 350.1.13.10 4.2.7.2.686 [id number] 220 [id number] [facility] 2020-02-28 00:00:00 2020-02-28 00:00:00 Refill Doctor Unassigned, Radium [facility] 1.2840.114 350.1.13.10 4.2.7.2.686 [id number] 220 [id number] [facility] 2020-01-22 00:00:00 2020-01-22 00:00:00 [facility] 1.20.114 350.1.13.10 4.2.7.2.686 [id number] 220 [id number] [facility] 2020-01-22 00:00:00 2020-01-22 00:00:00 Refill [facility]essandro [facility] 1..840.114 350.1.13.10 4.2.7.2.686 [id number] 220 [id number] [facility] 2019-12-18 00:00:00 2019-12-18 00:00:[address] [facility] 1..840.114 350.1.13.10 4.2.7.2.686 [id number] 220 [id number] [facility] 2019-07-12 00:00:00 2019-07-12 00:00:00 Refill Paty Marrero [facility] 1..840.114 350.1.13.10 4.2.7.2.686 [id number] 220 [id number] [facility] Results Test Description Test Time Test Comments Results Result Co mments Source GLUCOSE [id number] 12:22:00* Test Item Value Reference Range Interpretation Comme [facility] GLUCOSE BEDSIDE (test code = GLUBED) 208 MG/DL 70-110 H Performed by cer tified timing machine operator at [facility] GLUCOSE [id number] 07:50:00* Test Item Value Reference Range Interpretation Comme [facility] GLUCOSE BEDSIDE (test code = GLUBED) 228 MG/DL 70-110 H Performed by cer tified timing machine operator at [facility] CBC W/AUTO [id number] 07:17:00* Test Item Value Reference Range Interpretation Comme nts WHITE BLOOD CELL (test code = WBC) 12.9 x10 3/uL 4.5-11.0 H RED BLOOD CELL (test code = RBC) 2.78 x10 6/uL 3.54-5.02 L HEMOGLOBIN (test code = HGB) 10.1 g/dL 11.0-15.0 L HEMATOCRIT (test code = HCT) 32.8 % 33.0-45.0 L MEAN CELL VOLUME (test code = MCV) 118.0 fL 81.0-99.0 H MEAN CELL HGB (test code = MCH) 36.3 pg 27.0-33.0 H MEAN CELL HGB CONCETRATION (test code = MCHC) 30.8 g/dL 33.0-37.0 L RED CELL DISTRIBUTION WIDTH CV (test code = RDW) 15.9 % 11.5-14.5 H RED CELL DISTRIBUTION WIDTH SD (test code = RDW-SD) 70.3 fL 37.0-54.0 H PLATELET COUNT (test code = PLT) 200 x10 3/uL 150-400 N MEAN PLATELET VOLUME (test code = MPV) 11.7 fL 7.0-9.0 H NEUTROPHIL % (test code = NT%) 84.4 % 56.0-77.0 H IMMATURE GRANULOCYTE % (test code = IG%) 0.4 % 0.0-2.0 N LYMPHOCYTE % (test code = LY%) 5.1 % 14.0-32.0 L MONOCYTE % (test code = MO%) 9.9 % 4.8-9.0 H EOSINOPHIL % (test code = EO%) 0.0 % 0.3-3.7 L BASOPHIL % (test code = BA%) 0.2 % 0.0-2.0 N NUCLEATED RBC % (test code = NRBC%) 0.0 % 0-0 N NEUTROPHIL # (test code = NT#) 10.91 x10 3/uL 2.0-7.6 H IMMATURE GRANULOCYTE # (test code = IG#) 0.05 x10 3/uL 0.00-0.03 H LYMPHOCYTE # (test code = LY#) 0.66 x10 3/uL 1.0-3.8 L MONOCYTE # (test code = MO#) 1.28 x10 3/uL 0.1-0.8 H EOSINOPHIL # (test code = EO#) 0.00 x10 3/uL 0.0-0.2 N BASOPHIL # (test code = BA#) 0.02 x10 3/uL 0.0-0.2 N NUCLEATED RBC # (test code = NRBC#) 0.00 x10 3/uL 0.0-0.1 N MANUAL DIFF REQUIRED (test code = MDIFF) YES WBC [id number] 07:17:00* Test Item Value Reference Range Interpretation Comme nts BAND NEUTROPHIL (test code = BAND) 12.7 % 0.0-10.0 H ANISOCYTOSIS (test code = ANISO) 2+ PLATELET ESTIMATE (test code = PLTEST) Adequate THOUSAND ADEQUATE SEGMENTED NEUTROPHILS (test code = SEG) 71.8 % 37-69 H LYMPHOCYTE (test code = LYMPH) 7.3 % 23-55 L MONOCYTE (test code = MON) 7.3 % 0-10 N METAMYELOCYTE (test code = META) 0.9 % 0.0-0.0 H POLYCHROMASIA (test code = POLC) 1+ MACROCYTOSIS (test code = MACR) 2+ BASIC METABOLIC [id number] 06:55:00* Test Item Value Reference Range Interpretation Comme nts SODIUM (test code = NA) 133 mEq/L 134-147 L POTASSIUM (test code = K) 4.4 mEq/L 3.4-5.0 CHLORIDE (test code = CL) 102 mEq/L 100-108 N CARBON DIOXIDE (test code = CO2) 16 mEq/l 21-33 L ANION GAP (test code = GAP) 19 0-20 N GLUCOSE (test code = GLU) 257 mg/dL 77-141 H BLOOD UREA NITROGEN (test code = BUN) 30 mg/dL 7-25 H GLOMERULAR FILTRATION RATE (test code = GFR) 10.2 80-90 L The Glomerular Filtration Rate is [...] <18 years. CREATININE (test code = CREAT) 4.5 mg/dL 0.6-1.3 H CALCIUM (test code = CA) 8.4 mg/dL 8.0-10.5 N GLUCOSE [id number] 22:28:00* Test Item Value Reference Range Interpretation Comme nts GLUCOSE BEDSIDE (test code = GLUBED) 206 MG/DL 70-110 H Performed by cer tified timing machine operator at [facility] GLUCOSE [id number] 17:43:00* Test Item Value Reference Range Interpretation Comme nts GLUCOSE BEDSIDE (test code = GLUBED) 176 MG/DL 70-110 H Performed by cer tified timing machine operator at [facility] GLUCOSE [id number] 14:31:00* Test Item Value Reference Range Interpretation Comme nts GLUCOSE BEDSIDE (test code = GLUBED) 213 MG/DL 70-110 H Performed by cer tified timing machine operator at [facility] CBC W/AUTO [id number] 10:08:00* Test Item Value Reference Range Interpretation Comme nts WHITE BLOOD CELL (test code = WBC) 17.9 x10 3/uL 4.5-11.0 H RED BLOOD CELL (test code = RBC) 3.49 x10 6/uL 3.54-5.02 L HEMOGLOBIN (test code = HGB) 12.5 g/dL 11.0-15.0 N HEMATOCRIT (test code = HCT) 40.4 % 33.0-45.0 N MEAN CELL VOLUME (test code = MCV) 115.8 fL 81.0-99.0 H MEAN CELL HGB (test code = MCH) 35.8 pg 27.0-33.0 H MEAN CELL HGB CONCETRATION (test code = MCHC) 30.9 g/dL 33.0-37.0 L RED CELL DISTRIBUTION WIDTH CV (test code = RDW) 16.1 % 11.5-14.5 H RED CELL DISTRIBUTION WIDTH SD (test code = RDW-SD) 69.0 fL 37.0-54.0 H PLATELET COUNT (test code = PLT) 273 x10 3/uL 150-400 N MEAN PLATELET VOLUME (test code = MPV) 11.1 fL 7.0-9.0 H NEUTROPHIL % (test code = NT%) 84.3 % 56.0-77.0 H IMMATURE GRANULOCYTE % (test code = IG%) 0.6 % 0.0-2.0 N LYMPHOCYTE % (test code = LY%) 5.5 % 14.0-32.0 L MONOCYTE % (test code = MO%) 9.4 % 4.8-9.0 H EOSINOPHIL % (test code = EO%) 0.0 % 0.3-3.7 L BASOPHIL % (test code = BA%) 0.2 % 0.0-2.0 N NUCLEATED RBC % (test code = NRBC%) 0.0 % 0-0 N NEUTROPHIL # (test code = NT#) 15.08 x10 3/uL 2.0-7.6 H IMMATURE GRANULOCYTE # (test code = IG#) 0.11 x10 3/uL 0.00-0.03 H LYMPHOCYTE # (test code = LY#) 0.99 x10 3/uL 1.0-3.8 L MONOCYTE # (test code = MO#) 1.68 x10 3/uL 0.1-0.8 H EOSINOPHIL # (test code = EO#) 0.00 x10 3/uL 0.0-0.2 N BASOPHIL # (test code = BA#) 0.03 x10 3/uL 0.0-0.2 N NUCLEATED RBC # (test code = NRBC#) 0.00 x10 3/uL 0.0-0.1 N RBC [id number] 10:08:00* Test Item Value Reference Range Interpretation Comme nts ANISOCYTOSIS (test code = ANISO) 2+ MACROCYTOSIS (test code = MACR) 2+ BASIC METABOLIC [id number] 09:49:00* Test Item Value Reference Range Interpretation Comme nts SODIUM (test code = NA) 134 mEq/L 134-147 N POTASSIUM (test code = K) 3.5 mEq/L 3.4-5.0 N CHLORIDE (test code = CL) 99 mEq/L 100-108 L CARBON DIOXIDE (test code = CO2) 20 mEq/l 21-33 L ANION GAP (test code = GAP) 18 0-20 N GLUCOSE (test code = GLU) 210 mg/dL 77-141 H BLOOD UREA NITROGEN (test code = BUN) 24 mg/dL 7-25 N GLOMERULAR FILTRATION RATE (test code = GFR) 14.7 80-90 L The Glomerular Filtration Rate is [...] <18 years. CREATININE (test code = CREAT) 3.3 mg/dL 0.6-1.3 H CALCIUM (test code = CA) 9.5 mg/dL 8.0-10.5 N PROTHROMBIN [id number] 09:37:00* Test Item Value Reference Range Interpretation Comme nts PROTHROMBIN TIME PATIENT (test code = PTP) 14.8 SECONDS 9.3-12.9 H INTERNATIONAL NORMAL RATIO (test code = INR) 1.3 0.8-1.2 H TARGET INR BY INDICATION Indication [...] Acute Myocardial Infarction (to prevent recurrent infarct). GLUCOSE [id number] 09:33:00* Test Item Value Reference Range Interpretation Comme [facility] GLUCOSE BEDSIDE (test code = GLUBED) 184 MG/DL 70-110 H Performed by [facility] tified timing machine operator at [facility] GLUCOSE [id number] 15:14:00* Test Item Value Reference Range Interpretation Comme nts GLUCOSE BEDSIDE (test code = GLUBED) 137 MG/DL 70-110 H Performed by [facility] tified timing machine operator at [facility] GLUCOSE [id number] 08:10:00* Test Item Value Reference Range Interpretation Comme [facility] GLUCOSE BEDSIDE (test code = GLUBED) 167 MG/DL 70-110 H Performed by [facility] NoDaysOff timing machine operator at [facility] BASIC METABOLIC [id number] 08:05:00* Test Item Value Reference Range Interpretation Comme nts SODIUM (test code = NA) 134 mEq/L 134-147 N POTASSIUM (test code = K) 4.7 mEq/L 3.4-5.0 SPECIMEN 1+ HEMOLYZED.Results known to be adversely affected by hemolysis are: Potassium Magnesium LDH Phosphorus CHLORIDE (test code = CL) 99 mEq/L 100-108 L CARBON DIOXIDE (test code = CO2) 26 mEq/l 21-33 N ANION GAP (test code = GAP) 14 0-20 N GLUCOSE (test code = GLU) 168 mg/dL 77-141 H BLOOD UREA NITROGEN (test code = BUN) 26 mg/dL 7-25 H GLOMERULAR FILTRATION RATE (test code = GFR) 15.3 80-90 L The Glomerular Filtration Rate is [...] code = CA) 9.4 mg/dL 8.0-10.5 N PROTHROMBIN [id number] 08:02:00* Test Item Value Reference Range Interpretation Comme nts PROTHROMBIN TIME PATIENT (test code = PTP) 15.5 SECONDS 9.3-12.9 H INTERNATIONAL NORMAL RATIO (test code = INR) 1.4 0.8-1.2 H TARGET INR BY INDICATION Indication [...] Infarction (to prevent recurrent infarct). CBC W/AUTO [id number] 07:53:00* Test Item Value Reference Range Interpretation Comme nts WHITE BLOOD CELL (test code = WBC) 8.2 x10 3/uL 4.5-11.0 N RED BLOOD CELL (test code = RBC) 3.22 x10 6/uL 3.54-5.02 L HEMOGLOBIN (test code = HGB) 11.6 g/dL 11.0-15.0 N HEMATOCRIT (test code = HCT) 36.8 % 33.0-45.0 N MEAN CELL VOLUME (test code = MCV) 114.3 fL 81.0-99.0 H MEAN CELL HGB (test code = MCH) 36.0 pg 27.0-33.0 H MEAN CELL HGB CONCETRATION (test code = MCHC) 31.5 g/dL 33.0-37.0 L RED CELL DISTRIBUTION WIDTH CV (test code = RDW) 16.3 % 11.5-14.5 H RED CELL DISTRIBUTION WIDTH SD (test code = RDW-SD) 69.5 fL 37.0-54.0 H PLATELET COUNT (test code = PLT) 293 x10 3/uL 150-400 N MEAN PLATELET VOLUME (test c ode = MPV) 11.3 fL 7.0-9.0 H NEUTROPHIL % (test code = NT%) 65.0 % 56.0-77.0 N IMMATURE GRANULOCYTE % (test code = IG%) 0.2 % 0.0-2.0 N LYMPHOCYTE % (test code = LY%) 17.1 % 14.0-32.0 N MONOCYTE % (test code = MO%) 15.0 % 4.8-9.0 H EOSINOPHIL % (test code = EO%) 2.0 % 0.3-3.7 N BASOPHIL % (test code = BA%) 0.7 % 0.0-2.0 N NUCLEATED RBC % (test code = NRBC%) 0.0 % 0-0 N NEUTROPHIL # (test code = NT#) 5.30 x10 3/uL 2.0-7.6 N IMMATURE GRANULOCYTE # (test code = IG#) 0.02 x10 3/uL 0.00-0.03 N LYMPHOCYTE # (test code = LY#) 1.39 x10 3/uL 1.0-3.8 N MONOCYTE # (test code = MO#) 1.22 x10 3/uL 0.1-0.8 H EOSINOPHIL # (test code = EO#) 0.16 x10 3/uL 0.0-0.2 N BASOPHIL # (test code = BA#) 0.06 x10 3/uL 0.0-0.2 N NUCLEATED RBC # (test code = NRBC#) 0.00 x10 3/uL 0.0-0.1 N PROTHROMBIN [id number] 10:23:00* Test Item Value Reference Range Interpretation Comme nts PROTHROMBIN TIME PATIENT (test code = PTP) 15.6 SECONDS 9.3-12.9 H INTERNATIONAL NORMAL RATIO (test code = INR) 1.4 0.8-1.2 H TARGET INR BY INDICATION Indication [...] Infarction (to prevent recurrent infarct). BASIC METABOLIC [id number] 10:18:00* Test Item Value Reference Range Interpretation Comme nts SODIUM (test code = NA) 133 mEq/L 134-147 L POTASSIUM (test code = K) 3.9 mEq/L 3.4-5.0 N CHLORIDE (test code = CL) 98 mEq/L 100-108 L CARBON DIOXIDE (test code = CO2) 26 mEq/l 21-33 N ANION GAP (test code = GAP) 13 0-20 N GLUCOSE (test code = GLU) 356 mg/dL 77-141 H BLOOD UREA NITROGEN (test code = BUN) 34 mg/dL 7-25 H GLOMERULAR FILTRATION RATE (test [...] 0.6-1.3 H CALCIUM (test code = CA) 9.0 mg/dL 8.0-10.5 N CBC W/AUTO [id number] 10:09:00* Test Item Value Reference Range Interpretation Comme nts WHITE BLOOD CELL (test code = WBC) 6.3 x10 3/uL 4.5-11.0 N RED BLOOD CELL (test code = RBC) 3.11 x10 6/uL 3.54-5.02 L HEMOGLOBIN (test code = HGB) 11.0 g/dL 11.0-15.0 N HEMATOCRIT (test code = HCT) 36.0 % 33.0-45.0 N MEAN CELL VOLUME (test code = MCV) 115.8 fL 81.0-99.0 H MEAN CELL HGB (test code = MCH) 35.4 pg 27.0-33.0 H MEAN CELL HGB CONCETRATION (test code = MCHC) 30.6 g/dL 33.0-37.0 L RED CELL DISTRIBUTION WIDTH CV (test code = RDW) 16.5 % 11.5-14.5 H RED CELL DISTRIBUTION WIDTH SD (test code = RDW-SD) 70.0 fL 37.0-54.0 H PLATELET COUNT (test code = PLT) 252 x10 3/uL 150-400 N MEAN PLATELET VOLUME (test c ode = MPV) 11.1 fL 7.0-9.0 H NEUTROPHIL % (test code = NT%) 69.3 % 56.0-77.0 N IMMATURE GRANULOCYTE % (test code = IG%) 0.3 % 0.0-2.0 N LYMPHOCYTE % (test code = LY%) 14.4 % 14.0-32.0 N MONOCYTE % (test code = MO%) 13.8 % 4.8-9.0 H EOSINOPHIL % (test code = EO%) 1.7 % 0.3-3.7 N BASOPHIL % (test code = BA%) 0.5 % 0.0-2.0 N NUCLEATED RBC % (test code = NRBC%) 0.0 % 0-0 N NEUTROPHIL # (test code = NT#) 4.36 x10 3/uL 2.0-7.6 N IMMATURE GRANULOCYTE # (test code = IG#) 0.02 x10 3/uL 0.00-0.03 N LYMPHOCYTE # (test code = LY#) 0.91 x10 3/uL 1.0-3.8 L MONOCYTE # (test code = MO#) 0.87 x10 3/uL 0.1-0.8 H EOSINOPHIL # (test code = EO#) 0.11 x10 3/uL 0.0-0.2 N BASOPHIL # (test code = BA#) 0.03 x10 3/uL 0.0-0.2 N NUCLEATED RBC # (test code = NRBC#) 0.00 x10 3/uL 0.0-0.1 N GLUCOSE [id number] 15:03:00* Test Item Value Reference Range Interpretation Comme nts GLUCOSE BEDSIDE (test code = GLUBED) 196 MG/DL 70-110 H Performed by cer tified timing machine operator at [facility] BASIC METABOLIC [id number] 11:05:00* Test Item Value Reference Range Interpretation [...] CA) 10.4 mg/dL 8.0-10.5 N CBC W/AUTO [id number] 10:44:00* Test Item Value Reference Range Interpretation [...] NRBC#) 0.00 x10 3/uL 0.0-0.1 N GLUCOSE [id number] 10:44:00* Test Item Value Reference Range Interpretation Comme nts GLUCOSE BEDSIDE (test code = GLUBED) 204 MG/DL 70-110 H Performed by cer [place] timing machine operator at [facility] BASIC METABOLIC [id number] 12:41:00* Test Item Value Reference Range Interpretation [...] CA) 9.8 mg/dL 8.0-10.5 N CBC W/AUTO [id number] 12:37:00* Test Item Value Reference Range Interpretation [...] NRBC#) 0.00 x10 3/uL 0.0-0.1 N RBC [id number] 12:37:00* Test Item Value Reference Range Interpretation Comme nts ANISOCYTOSIS (test code = ANISO) 1+ POLYCHROMASIA (test code = POLC) 2+ MACROCYTOSIS (test code = MACR) 2+ PROTHROMBIN [id number] 12:07:00* Test Item Value Reference Range Interpretation [...] (to prevent recurrent infarct). POCT Hemoglobin A1C [id number] 17:52:00* Test Item Value Reference Range Interpretation Comme [facility] POCT HBA1C (test code = 4548-4) 6.7 % 4-6 A Lab Interpretation (test cod e = 94932-8) [facility] [id number] 17:52:00* Test Item Value Reference Range Interpretation Comme nts POCT HBA1C (test code = 4548-4) 6.7 % 4-6 A Lab Interpretation (test cod e = 30707-3) [facility] [id number] 12:01:00* Test Item Value Reference Range Interpretation Comme nts GLUCOSE BEDSIDE (test code = GLUBED) 242 MG/DL 70-110 H Performed by cer tified timing machine operator at [facility] GLUCOSE [id number] 11:29:00* Test Item Value Reference Range Interpretation Comme nts GLUCOSE BEDSIDE (test code = GLUBED) 220 MG/DL 70-110 H Performed by cer tified timing machine operator at [facility] GLUCOSE [id number] 07:05:00* Test Item Value Reference Range Interpretation Comme nts GLUCOSE BEDSIDE (test code = GLUBED) 251 MG/DL 70-110 H Performed by cer tified timing machine operator at [facility] BASIC METABOLIC [id number] 07:00:00* Test Item Value Reference Range Interpretation [...] CA) 9.6 mg/dL 8.0-10.5 N CBC W/AUTO [id number] 06:44:00* Test Item Value Reference Range Interpretation [...] 0.00 x10 3/uL 0.0-0.1 N CBC W/AUTO [id number] 21:30:00* Test Item Value Reference Range Interpretation [...] NRBC#) 0.00 x10 3/uL 0.0-0.1 N RBC [id number] 21:30:00* Test Item Value Reference Range Interpretation Comme nts ANISOCYTOSIS (test code = ANISO) 1+ MACROCYTOSIS (test code = MACR) 1+ BASIC METABOLIC [id number] 14:44:00* Test Item Value Reference Range Interpretation [...] = CA) 9.7 mg/dL 8.0-10.5 N PROTHROMBIN [id number] 14:44:00* Test Item Value Reference Range Interpretation [...] prevent recurrent infarct). - XR CHEST 2 [id number] 13:52:00 [facility] : 1955 Sex: F FAX: Benito Jeronimo MD [phone] [facility]: St: PRE FAX: Luis Carlos Hernandez [phone] FAX: Tawnya Guidry Name: JOSEPH ROWLEY [facility] [place] : 1955 Age/S: 69/F [address] [place] [address] Unit #: [id number] Loc: [place] [address] Phys: Tawnya Guidry MANAGER WELLNESS Acct: [id number] Dis Date: Status: PRE SDC PHONE #: [phone] Exam Date: 01/24/2024 1253 FAX #: [phone] Reason: PRE OP EXAMS: CPT CODE: [id number] XR CHEST 2 V 20023 Location Code: S17 EXAMINATION: - XR CHEST [...] Benito Nugent MD; Luis Carlos Huggins MD; Twanya Guidry NP Technologist: RT Bar(R) TrnscrdDate/Time/By: 01/24/2024 (2422) : By: [email or web address] Orig Print D/T: S: 01/24/2024 (9179) PAGE 1 SignedReportBASIC METABOLIC [id number] 14:45:00* Test Item Value Reference Range Interpretation [...] = POCGLU) 178 MG/DL 70-110 H HEMOGLOBIN [id number] 14:45:00* Test Item Value Reference Range Interpretation Comme nts HEMOGLOBIN ABG (test code = HGB/ABG) 16.6 G/DL 11.0-15.0 H [id number] 14:45:00* Test Item Value Reference Range Interpretation Comme nts HEMATOCRIT (test code = HCT/ABG) 49 % 33.0-45.0 H POC LACTIC [id number] 14:45:00* Test Item Value Reference Range Interpretation Comme nts POC LACTIC ACID (test code = POCLAC) 0.9 mmol/l 0.9-1.7 N POC VENOUS BLOOD [id number] 14:45:00* Test Item Value Reference Range Interpretation Comme nts POC VENOUS BLOOD GAS PH (nelson t code = POCPHV) 7.359 7.33-7.45 N POC VENOUS BLOOD GAS PCO2 (t est code = VOCNOH6R) 43.5 mmHg 43-47 N POC VENOUS BLOOD GAS PO2 (te st code = IQCRA0D) 44.8 mmHG 10-50 N POC TCO2 VENOUS (test code = CKXOVE1U) 25.8 POC HCO3 VENOUS (test code = WGUOGV8K) 24.5 MMOL/L 22-27 N POC BASE EXCESS VENOUS (test code = POCBEV) -1.3 MMOL/L -4.0-4.0 N POC O2 SATURATION VENOUS (te st code = AGZZ0BN) 78.4 % 60-80 N GLUCOSE [id number] 18:11:00* Test Item Value Reference Range Interpretation Comme nts GLUCOSE BEDSIDE (test code = GLUBED) 229 MG/DL 70-110 H Performed by cer tified timing machine operator at [facility] CBC W/AUTO [id number] 08:39:00* Test Item Value Reference Range Interpretation [...] 0.00 x10 3/uL 0.0-0.1 N BASIC METABOLIC [id number] 07:57:00* Test Item Value Reference Range Interpretation [...] 10.2 mg/dL 8.0-10.5 N POCT HEMOGLOBIN A1C [id number] 16:26:00* Test Item Value Reference Range Interpretation Comme [facility] POCT HBA1C (test code = 4548-4) 6.7 % 4-6 A Lab Interpretation (test cod e = 36596-4) [facility] H[facility] A1C [id number] 16:26:00* Test Item Value Reference Range Interpretation Comme [facility] POCT HBA1C (test code = 4548-4) 6.7 % 4-6 A Lab Interpretation (test cod e = 65305-1) [facility] [id number] 06:12:00* Test Item Value Reference Range Interpretation Comme nts AB HEPATITIS B SURFACE (test code = HBSAB) < 3.1 mIU/mL See_Comment L Status of Immuni ty Anti-HBs Level Inconsi stent with Immunity 0.0 - 9.9Consistent with Immunity >9.9Performed At: [facility] [address] [id number] Kyle L MD Ph:[phone] [Automated message] The system which generated this result transmitted reference range: Immunity>9.9. The reference range was not used to interpret this result as normal/abnormal. GLUCOSE [id number] 08:06:00* Test Item Value Reference Range Interpretation Comme nts GLUCOSE BEDSIDE (test code = GLUBED) 198 MG/DL 70-110 H Performed by cer tified timing machine operator at [facility] BASIC METABOLIC [id number] 04:28:00* Test Item Value Reference Range Interpretation [...] 77-141 HH Critical result called to JOSEPH Doan MARIXA.SLAVA at 0428 09/02/23Nurse read back resut and [...] CA) 8.7 mg/dL 8.0-10.5 N CBC W/AUTO [id number] 03:58:00* Test Item Value Reference Range Interpretation [...] NRBC#) 0.00 x10 3/uL 0.0-0.1 N GLUCOSE [id number] 20:55:00* Test Item Value Reference Range Interpretation Comme nts GLUCOSE BEDSIDE (test code = GLUBED) 254 MG/DL 70-110 H Performed by cer tified timing machine operator at [facility] GLUCOSE [id number] 19:56:00* Test Item Value Reference Range Interpretation Comme nts GLUCOSE BEDSIDE (test code = GLUBED) 405 MG/DL 70-110 H Performed by cer tified timing machine operator at [facility] GLUCOSE [id number] 19:56:00* Test Item Value Reference Range Interpretation Comme nts GLUCOSE BEDSIDE (test code = GLUBED) 347 MG/DL 70-110 H Performed by cer tified timing machine operator at [facility] GLUCOSE [id number] 17:26:00* Test Item Value Reference Range Interpretation Comme nts GLUCOSE BEDSIDE (test code = GLUBED) 149 MG/DL 70-110 H Performed by cer NoDaysOff timing machine operator at [facility] ACUTE HEPATITIS [id number] 16:31:00* Test Item Value Reference Range Interpretation Comme nts AB HEPATITIS A IGM (test code = HAVMAB) NON REACTIVE INDEX NON REACT. AG HEPATITIS B SURFACE (test code = HBSAG) NON REACTIVE INDEX NonReactive AB HEPATITIS B CORE IGM (test code = HBCMAB) NON REACTIVE INDEX NON REACT. AB HEPATITIS C (test code = HCVAB) NON REACTIVE INDEX NON REACT. PROTHROMBIN [id number] 15:49:00* Test Item Value Reference Range Interpretation [...] Infarction (to prevent recurrent infarct). CBC W/AUTO [id number] 15:39:00* Test Item Value Reference Range Interpretation [...] 0.00 x10 3/uL 0.0-0.1 N BASIC METABOLIC [id number] 08:00:00* Test Item Value Reference Range Interpretation [...] = POCGLU) 219 MG/DL 70-110 H HEMOGLOBIN [id number] 08:00:00* Test Item Value Reference Range Interpretation Comme nts HEMOGLOBIN ABG (test code = HGB/ABG) 14.4 G/DL 11.0-15.0 N [id number] 08:00:00* Test Item Value Reference Range Interpretation Comme nts HEMATOCRIT (test code = HCT/ABG) 42 % 33.0-45.0 N POC LACTIC [id number] 08:00:00* Test Item Value Reference Range Interpretation Comme nts POC LACTIC ACID (test code = POCLAC) 0.7 mmol/l 0.9-1.7 L POC VENOUS BLOOD [id number] 08:00:00* Test Item Value Reference Range Interpretation Comme nts POC VENOUS BLOOD GAS PH (nelson t code = POCPHV) 7.383 7.33-7.45 N POC VENOUS BLOOD GAS PCO2 (t est code = KVNFAT1H) 44.1 mmHg 43-47 N POC VENOUS BLOOD GAS PO2 (te st code = DUFJJ4C) 43.7 mmHG 10-50 N POC TCO2 VENOUS (test code = PPJVRZ9A) 27.6 POC HCO3 VENOUS (test code = KRHRPN9H) 26.3 MMOL/L 22-27 N POC BASE EXCESS VENOUS (test code = POCBEV) 0.8 MMOL/L -4.0-4.0 N POC O2 SATURATION VENOUS (te st code = LRZU0OW) 78.3 % 60-80 N BASIC METABOLIC [id number] 07:55:00* Test Item Value Reference Range Interpretation [...] CA) 9.5 mg/dL 8.0-10.5 N CBC W/AUTO [id number] 16:04:00* Test Item Value Reference Range Interpretation [...] NRBC#) 0.00 x10 3/uL 0.0-0.1 N RBC [id number] 16:04:00* Test Item Value Reference Range Interpretation Comme nts ANISOCYTOSIS (test code = ANISO) 1+ MACROCYTOSIS (test code = MACR) 1+ BASIC METABOLIC [id number] 14:45:00* Test Item Value Reference Range Interpretation [...] = CA) 9.5 mg/dL 8.0-10.5 N PROTHROMBIN [id number] 14:34:00* Test Item Value Reference Range Interpretation [...] Infarction (to prevent recurrent infarct). BASIC METABOLIC [id number] 04:15:00* Test Item Value Reference Range Interpretation [...] code = CA) 8.1 mg/dL 8.0-10.5 N [id number] 04:15:00* Test Item Value Reference Range Interpretation Comme nts PHOSPHOROUS (test code = PHOS) 3.1 MG/DL 2.5-4.9 [id number] 04:15:00* Test Item Value Reference Range Interpretation Comme nts MAGNESIUM (test code = MAG) 2.08 mg/dL 1.6-2.6 N NOTE: NEW NORMAL RANGE CALCIUM [id number] 04:15:00* Test Item Value Reference Range Interpretation Comme nts CALCIUM IONIZED (test code = ALONZO) 1.09 MMOL/L 1.09-1.30 N CBC W/AUTO [id number] 03:24:00* Test Item Value Reference Range Interpretation [...] ode = MDIFF) NO - DUP VEIN UNI/[id number] 14:23:00 [facility] : 1955 Sex: F Name: JOSEPH ROWLEY [facility] [place] : 1955 Age/S: 68 / F [address] [place] [address] Blvd Unit #: [id number] Loc: [place] [address] Phys: Darrel Jang MD Acct: [id number] Dis Date: Status: ADM IN PHONE #: [phone] Exam Date: 07/25/2023 1415 FAX #: [phone] Reason: R/O DVT/ARTERIAL CLOT RIGHT ARM EXAMS: CPT CODE: [id number] DUP VEIN UNI/LTD 21273 EXAM: Right upper extremity duplex venous ultrasound Dictation location: C3 INDICATION: Peripheral arterial disease, CHF, coronary artery disease, rule out DVT/retroclival and right arm COMPARISON: None DISCUSSION: Cormier scale, color Doppler, and spectral waveform analysis images of the right upper extremity deep venous system were performed. The right subclavian artery is unable to be visualized due to bandaging. The cephalic vein is unable to be visualized. The right basilic vein appears thrombosed. The internal jugular vein, axillary,brachial, radial, and ulnar veins are patent and compressible where appropriate. IMPRESSION: 1. Superficial venous thrombosis in the right basilic vein. 2. No evidence of deep venous thrombosis in the right upper extremity. The right subclavian vein is unable to be evaluated due to overlying bandaging. at 1423 Reported and signed by: Marco Antonio Jenkins M.D. CC: Tanvir Prasad MD; Benito Nugent MD; Darrel Jang MD; Jaxson Grover MD Technologist: Roshni Ramirez Trngab Date/Time: 07/25/2023 (1422) t.SDR.BC0 Orig PrintD/T: S: 07/25/2023 (7416) Probe: PAGE 1 Signed ReportBASIC METABOLIC PANEL [...] code = CA) 8.6 mg/dL 8.0-10.5 N [id number] 08:48:00* Test Item Value Reference Range Interpretation Comme nts PHOSPHOROUS (test code = PHOS) 5.3 MG/DL 2.5-4.9 H [id number] 08:48:00* Test Item Value Reference Range Interpretation Comme nts MAGNESIUM (test code = MAG) 2.25 mg/dL 1.6-2.6 N NOTE: NEW NORMAL RANGE CALCIUM [id number] 08:48:00* Test Item Value Reference Range Interpretation Comme nts CALCIUM IONIZED (test code = ALONZO) 1.08 MMOL/L 1.09-1.30 L CBC W/AUTO [id number] 03:43:00* Test Item Value Reference Range Interpretation [...] (test c ode = MDIFF) NO GLUCOSE [id number] 17:18:00* Test Item Value Reference Range Interpretation Comme nts GLUCOSE BEDSIDE (test code = GLUBED) 84 MG/DL 70-110 N Performed by cer tified timing machine operator at [facility] GLUCOSE [id number] 17:18:00* Test Item Value Reference Range Interpretation Comme nts GLUCOSE BEDSIDE (test code = GLUBED) 70 MG/DL 70-110 N Performed by cer tified timing machine operator at [facility] BASIC METABOLIC [id number] 07:44:00* Test Item Value Reference Range Interpretation [...] code = CA) 8.6 mg/dL 8.0-10.5 N [id number] 07:44:00* Test Item Value Reference Range Interpretation Comme nts PHOSPHOROUS (test code = PHOS) 4.6 MG/DL 2.5-4.9 N [id number] 07:44:00* Test Item Value Reference Range Interpretation Comme nts MAGNESIUM (test code = MAG) 2.16 mg/dL 1.6-2.6 N NOTE: NEW NORMAL RANGE CALCIUM [id number] 07:44:00* Test Item Value Reference Range Interpretation Comme nts CALCIUM IONIZED (test code = ALONZO) 1.10 MMOL/L 1.09-1.30 N CBC W/AUTO [id number] 07:26:00* Test Item Value Reference Range Interpretation [...] REQUIRED (test code = MDIFF) NO GLUCOSE [id number] 09:39:00* Test Item Value Reference Range Interpretation Comme nts GLUCOSE BEDSIDE (test code = GLUBED) 205 MG/DL 70-110 H Performed by cer tified timing machine operator at [facility] BASIC METABOLIC [id number] 04:37:00* Test Item Value Reference Range Interpretation [...] code = CA) 8.4 mg/dL 8.0-10.5 N [id number] 04:37:00* Test Item Value Reference Range Interpretation Comme nts PHOSPHOROUS (test code = PHOS) 3.7 MG/DL 2.5-4.9 N [id number] 04:37:00* Test Item Value Reference Range Interpretation Comme nts MAGNESIUM (test code = MAG) 1.95 mg/dL 1.6-2.6 N NOTE: NEW NORMAL RANGE CALCIUM [id number] 04:37:00* Test Item Value Reference Range Interpretation Comme nts CALCIUM IONIZED (test code = ALONZO) 1.11 MMOL/L 1.09-1.30 N CBC W/AUTO [id number] 04:24:00* Test Item Value Reference Range Interpretation [...] (test code = MDIFF) NO CBC W/AUTO [id number] 13:56:00* Test Item Value Reference Range Interpretation [...] c ode = MDIFF) NO THROMBOPLASTIN TIME [id number] 09:58:00* Test Item Value Reference Range Interpretation Comme nts THROMBOPLASTIN TIME PARTIAL (test code = PTT) 29.7 Seconds 25.0-39.5 N Therapeutic Rang e: 50.4 - 88.3 Seconds Effective 02/27/2019 THROMBOPLASTIN TIME [id number] 04:51:00* Test Item Value Reference Range Interpretation Comme nts THROMBOPLASTIN TIME PARTIAL (test code = PTT) 32.6 Seconds 25.0-39.5 N Therapeutic Rang e: 50.4 - 88.3 Seconds Effective 02/27/2019 BASIC METABOLIC [id number] 04:47:00* Test Item Value Reference Range Interpretation [...] code = CA) 7.7 mg/dL 8.0-10.5 L [id number] 04:47:00* Test Item Value Reference Range Interpretation Comme nts PHOSPHOROUS (test code = PHOS) 4.1 MG/DL 2.5-4.9 [id number] 04:47:00* Test Item Value Reference Range Interpretation Comme nts MAGNESIUM (test code = MAG) 1.84 mg/dL 1.6-2.6 N NOTE: NEW NORMAL RANGE CALCIUM [id number] 04:47:00* Test Item Value Reference Range Interpretation Comme nts CALCIUM IONIZED (test code = ALONZO) 1.05 MMOL/L 1.09-1.30 L CBC W/AUTO [id number] 04:29:00* Test Item Value Reference Range Interpretation Comme nts WHITE BLOOD CELL (test code = WBC) 12.5 x10 3/uL 4.5-11.0 H RED BLOOD CELL (test code = RBC) 1.73 x10 6/uL 3.54-5.02 L HEMOGLOBIN (test code = HGB) 5.8 g/dL 11.0-15.0 LL Critical result called to INDIRA Doan .LAB.KA at 0422 07/22/23Nurse read back resut and tech confirmed [...] (test code = MDIFF) NO THROMBOPLASTIN TIME [id number] 01:02:00* Test Item Value Reference Range Interpretation Comme nts THROMBOPLASTIN TIME PARTIAL (test code = PTT) 34.4 Seconds 25.0-39.5 Therapeutic Rang e: 50.4 - 88.3 Seconds Effective 02/27/2019 THROMBOPLASTIN TIME [id number] 23:04:00* Test Item Value Reference Range Interpretation Comme nts THROMBOPLASTIN TIME PARTIAL (test code = PTT) 55.1 Seconds 25.0-39.5 H Therapeutic Rang e: 50.4 - 88.3 Seconds Effective 02/27/2019 - XR CHEST 1 [id number] 21:53:00 [facility] : 1955 Sex: F FAX: Tanvir Ann MD [phone] [facility]: St: ADM FAX: Benito Jeronimo MD [phone] FAX: Fanny Chawla FAX: Jaxson Woody MD [phone] Name: JOSEPH ROWLEY [facility] : 1955 Age/S: 68/F [address] [place] [address] Unit #: [id number] Loc: [address] [place] [address] Phys: Fanny Chawla Acct: [id number] Dis Date: Status: ADM IN PHONE #: [phone] Exam Date: 07/21/20232034 FAX #: [phone] Reason: SOB EXAMS: CPT CODE: [id number] XR CHEST 1 V 49133 EXAM: - XR CHEST 1 V COMPARISON: [...] signed by: Jorgito Novak M.D. CC: Tanvir Prasad MD; Benito Nugent MD; Fanny Chawla; Jaxson Grover MD Technologist: Natasha Casas, RT(R); Jensen Addison, RT(R) Trngard Date/Time/By: 07/21/2023 (2152) : By: BeanHV2 Orig Print D/T: S: 07/21/2023 (4182) PAGE 1 Signed ReportTHROMBOPLASTIN TIME [id number] 21:52:00* Test Item Value Reference Range Interpretation Comme [facility] THROMBOPLASTIN TIME PARTIAL (test code = PTT) 126.9 Seconds 25.0-39.5 H Therapeutic Rang e: 50.4 - 88.3 Seconds Effective 02/27/2019 PROTHROMBIN [id number] 21:52:00* Test Item Value Reference Range Interpretation Comme [facility] PROTHROMBIN TIME PATIENT (test code = PTP) [...] Myocardial Infarction (to prevent recurrent infarct). HGB [id number] 21:13:00* Test Item Value Reference Range Interpretation Comme [facility] HEMOGLOBIN (test code = HGB) 7.2 g/dL 11.0-15.0 L HEMATOCRIT (test code = HCT) 22.2 % 33.0-45.0 L LACTIC ACID [id number] 20:42:00* Test Item Value Reference Range Interpretation Comme [facility] LACTIC ACID REPEAT (test cod e = LACTR) 1.5 mmol/l 0.4-1.9 N BASIC METABOLIC [id number] 20:32:00* Test Item Value Reference Range Interpretation [...] code = CA) 7.6 mg/dL 8.0-10.5 L [id number] 20:32:00* Test Item Value Reference Range Interpretation Comme nts PHOSPHOROUS (test code = PHOS) 3.2 MG/DL 2.5-4.9 N [id number] 20:32:00* Test Item Value Reference Range Interpretation Comme nts MAGNESIUM (test code = MAG) 1.88 mg/dL 1.6-2.6 N NOTE: NEW NORMAL RANGE CALCIUM [id number] 20:32:00* Test Item Value Reference Range Interpretation Comme nts CALCIUM IONIZED (test code = ALONZO) 1.01 MMOL/L 1.09-1.30 L CBC W/AUTO [id number] 18:36:00* Test Item Value Reference Range Interpretation [...] REQUIRED (test code = MDIFF) NO LACTIC [id number] 18:29:00* Test Item Value Reference Range Interpretation Comme nts LACTIC ACID (test code = LACT) 2.4 mmol/L 0.4-1.9 H PROTHROMBIN [id number] 18:28:00* Test Item Value Reference Range Interpretation Comme [facility] PROTHROMBIN TIME PATIENT (test code = PTP) [...] (to prevent recurrent infarct). POC ARTERIAL BLOOD [id number] 16:08:00* Test Item Value Reference Range Interpretation Comme [facility] POC ARTERIAL BLOOD GAS PH (test code = POCPHA) 7.556 7.35-7.45 HH POC ARTERIAL BLOOD GAS PCO2 (test code = RVDQET6Y) 29.3 mmHg 35.0-45 LL POC TCO2 ARTERIAL (test code = POCTCO2) 26.9 POC ARTERIAL BLOOD GAS PO2 (test code = CBCAJ0P) 451.3 mmHg 80-100.0 HH POC HCO3 ARTERIAL (test code = HRRLVG5O) 26.0 MMOL/L 22.0-26.0 N POC BASE EXCESS (test code = POCBEA) 3.7 MMOL/L -4.0-4.0 N POC O2 SATURATION (test code = POCO2S) 100.0 % 90-100 N FIO2 (test code = FIO2A) 100 % PaO2/FiO2 (test code = YKG8HLN0) 451.30 mm/Hg ABG DELIVERY (test code = AKASH) Adult Vent ABG VENT MODE (test code = MODEA) anesthesia vent. ABG SITE (test code = SITEA) Central Line [id number] 16:03:00* Test Item Value Reference Range Interpretation Comme [facility] ACT-ISTAT (test code = ACTI) 287 SEC 74-137 H Performed by cer tified timing machine operator at [facility] [id number] 15:20:00* Test Item Value Reference Range Interpretation Comme nts ACT-ISTAT (test code = ACTI) 329 SEC 74-137 H Performed by cer tified timing machine operator at [facility] [id number] 15:20:00* Test Item Value Reference Range Interpretation Comme nts ACT-ISTAT (test code = ACTI) 299 SEC 74-137 H Performed by cer tified timing machine operator at [facility] [id number] 15:20:00* Test Item Value Reference Range Interpretation Comme nts ACT-ISTAT (test code = ACTI) 263 SEC 74-137 H Performed by cer tified timing machine operator at [facility] [id number] 14:42:00* Test Item Value Reference Range Interpretation Comme nts ACT-ISTAT (test code = ACTI) 203 SEC 74-137 H Performed by cer tified timing machine operator at [facility] GLUCOSE [id number] 10:56:00* Test Item Value Reference Range Interpretation Comme nts GLUCOSE BEDSIDE (test code = GLUBED) 141 MG/DL 70-110 H Performed by cer tified timing machine operator at [facility] BASIC METABOLIC [id number] 10:14:00* Test Item Value Reference Range Interpretation [...] be done morning of Heart CathCBC W/AUTO [id number] 10:11:00* Test Item Value Reference Range Interpretation [...] To be done morning of Heart CathGLUCOSE [id number] 16:57:00* Test Item Value Reference Range Interpretation Comme [facility] GLUCOSE BEDSIDE (test code = GLUBED) 91 MG/DL 70-110 N Performed by cer tified timing machine operator at [facility] GLUCOSE [id number] 17:01:00* Test Item Value Reference Range Interpretation Comme [facility] GLUCOSE BEDSIDE (test code = GLUBED) 96 MG/DL 70-110 N Performed by Phoneplus tified timing machine operator at [facility] BASIC METABOLIC [id number] 12:57:00* Test Item Value Reference Range Interpretation Comme [facility] SODIUM (test code = NA) 128 mEq/L [...] code = CA) 9.1 mg/dL 8.0-10.5 N [id number] 12:57:00* Test Item Value Reference Range Interpretation Comme nts PHOSPHOROUS (test code = PHOS) 4.5 MG/DL 2.5-4.9 N CBC W/AUTO [id number] 12:37:00* Test Item Value Reference Range Interpretation [...] (test c ode = MDIFF) NO GLUCOSE [id number] 19:42:00* Test Item Value Reference Range Interpretation Comme nts GLUCOSE BEDSIDE (test code = GLUBED) 91 MG/DL 70-110 N Performed by cer tified timing machine operator at [facility] GLUCOSE [id number] 17:56:00* Test Item Value Reference Range Interpretation Comme nts GLUCOSE BEDSIDE (test code = GLUBED) 45 MG/DL 70-110 L Performed by cer tified timing machine operator at [facility] GLUCOSE [id number] 12:34:00* Test Item Value Reference Range Interpretation Comme nts GLUCOSE BEDSIDE (test code = GLUBED) 163 MG/DL 70-110 H Performed by cer tified timing machine operator at [facility] B-TYPE NATRIURETIC [id number] 09:00:00* Test Item Value Reference Range Interpretation Comme nts B-TYPE NATRIURETIC PEPTIDE (test code = BNP) > 5000.0 PG/ML 0-100 H [id number]%2023-07-17 08:22:00* Test Item Value Reference Range Interpretation Comme nts HGBA1C% (test code = HGBA1C%) 7.5 %A1C 4.8-6.0 H BASIC METABOLIC [id number] 08:16:00* Test Item Value Reference Range Interpretation [...] = LDL) 77.0 mg/dL 0-100 N <100 MKMXDDY52 0-129 NEAR OPTIMAL/ABOVE [id number] [id number] HIGH>HG=325 VERY HIGH*Guidelines provided by the National Cholesterol EducationProgram Adult Treatment Panel III [id number] 08:16:00* Test Item Value Reference Range Interpretation Comme nts MAGNESIUM (test code = MAG) 2.09 mg/dL 1.6-2.6 N NOTE: NEW NORMAL RANGE CBC W/AUTO [id number] 07:07:00* Test Item Value Reference Range Interpretation [...] (test c ode = MDIFF) NO GLUCOSE [id number] 19:15:00* Test Item Value Reference Range Interpretation Comme [facility] GLUCOSE BEDSIDE (test code = GLUBED) 98 MG/DL 70-110 N Performed by cer tified timing machine operator at [facility] GLUCOSE [id number] 08:35:00* Test Item Value Reference Range Interpretation Comme nts GLUCOSE BEDSIDE (test code = GLUBED) 226 MG/DL 70-110 H Performed by cer tified timing machine operator at [facility] - CTA ABD PEL W [id number] 21:58:[address] [facility] SYLWIA ISAACSName: JOSEPH ROWLEY : 1955 Sex: F Name: JOSEPH ROWLEY [facility] [place] : 1955 Age/S: 68 / F [address] [facility] [address] Unit #: [id number] Loc: [place] [address] Phys: Kimbrely Pak MD Acct: [id number] Dis Date: Status: ADM IN PHONE #: [phone] Exam Date: 07/15/2023 1156 FAX #: [phone] Reason: MESENTRIC ARTERIES. EXAMS: CPT CODE: [id number] CTA ABD PEL W CONT 59190 H 20 TIME OF STUDY: 07/15/2023 10:04 AM REASON FOR EXAM: CHECK SUBCLAVIAN and mesenteric ARTERIES COMPARISON: None TECHNIQUE: Pre and postcontrast enhancedthin section helical images were obtained through the [...] right chest tunneled dialysis catheter is in place.The heart size is within normal limits. There is coronary atherosclerosis. No pericardial effusion is seen. There is pleural effusions are present. There is no axillary, mediastinal, or hilar adenopathy. Lung windows demonstrate no consolidation, nodules, or other parenchymal abnormality. Osseous structures demonstrate age appropriate changes without focal lytic or blastic lesions. PAGE 1 Signed Report (CONTINUED) Name: JOSEPH [facility]OW[facility] : 1955 Age/S: 68 / F [address] [place] [address] Blvd Unit #: [id number] Loc: [place] [address] Phys: Kimberly Pak MD Acct: [id number] Dis Date: Status: ADM IN PHONE #: [phone] Exam Date: 07/15/2023 1156 FAX #: [phone] Reason: MESENTRIC ARTERIES. EXAMS: CPT CODE: [id number] CTA ABD PEL W CONT 23201 (Continued) CTA abdomen: There is atherosclerosis of [...] Leiva MD; Jaxson Grover MD Technologist:Christiano Coburn Jr,RT(R)(CT) CTDI: DLP: Trnscb Date/Time: 07/15/2023 (2157) [email or web address] Orig Print D/T: S: 07/15/2023 (2200) PAGE 2 Signed Report- CT ANGIO [id number] 21:58:00 [facility] : 1955 Sex: F Name: JOSEPH ROWLEY [facility] : 1955 Age/S: 68 / F [address] [place] [address] Blvd Unit #: [id number] Loc: [place] [address] Phys: Kimberly Pak MD Acct: [id number] Dis Date: Status: ADM IN PHONE #: [phone] Exam Date: 07/15/2023 1156 FAX #: [phone] Reason: CHECK SUBCLAVIAN ARTERIES EXAMS: CPT CODE: [id number] CT ANGIO CHEST 41166 H 20 TIME OF STUDY: 07/15/2023 10:04 [...] 1 Signed Report (CONTINUED) Name: JOSEPH ROWLEY [facility] : 1955 Age/S: 68 / F [address] [place] [address] Blvd Unit #: [id number] Loc: [place] [address] Phys: Kimberly Pak MD Acct: [id number] Dis Date: Status: ADM IN PHONE #: [phone] Exam Date: 07/15/2023 1156 FAX #: [phone] Reason: CHECK SUBCLAVIAN ARTERIES EXAMS: CPT CODE: [id number] CT ANGIO CHEST 51450 (Continued) CTA abdomen: There is atherosclerosis of [...] The bilateral internal iliac arteries are patent. Thereis reconstitution of the common femoral arteries bilaterally [...] MD; Cinthya Leiva MD; Jaxson Grover MD Technologist:Chirstiano Monson RT(R)(CT) CTDI: DLP: Trnscb Date/Time: 07/15/2023 (2157) [email or web address] Orig Print D/T: S: 07/15/2023 (2200) PAGE 2 Signed Report- CT ANGIO [id number] 21:12:00 [facility] : 1955 Sex: F Name: JOSEPH ROWLEY [facility] : 1955 Age/S: 68 / F [address] [facility] Unit #: [id number] Loc: [place] [address] Phys: Kimberly Pak MD Acct: [id number] Dis Date: Status: ADM IN PHONE #: [phone] Exam Date: 07/15/2023 1157 FAX #: [phone] Reason: CAROTID STENOSIS Report Has Been Amended EXAMS: CPT CODE: [id number] CT ANGIO NECK 43979 Addendum - 07/15/2023 SIGNED 07/15/2023 ADDENDUM: [id number] CT/CTANNKWWO Addendum: Findings were discussed with Yelena Davis 07/15/2023 9:11 PM approximately. FOR INTERNAL CODING [...] 1 Signed Report (CONTINUED) Name: JOSEPH ROWLEY [facility] : 1955 Age/S: 68 / F [address] [place] [address] Unit #: [id number] Loc: [place] [address] Phys: Kimberly Pak MD Acct: [id number] Dis Date: Status: ADM IN PHONE #: [phone] ExamDate: 07/15/2023 1157 FAX #: [phone] Reason: CAROTID STENOSIS Report Has Been Amended EXAMS: CPT CODE: [id number] CT ANGIO NECK 21585 (Continued) For the purposes of this dictation, hemodynamically significant stenosis is characterized as greater than 50%. CTA head: The petrous, cavernous, and clinoid internal carotid arteries do not demonstrate hemodynamically significant stenoses. The anterior and left middle cerebral arteries do not demonstrate hemodynamically significant stenoses. There are multiple filling defects noted in the right M1. [place] of both vertebral arteries into the basilar. [...] 2 Signed Report (CONTINUED) Name: JOSEPH ROWLEY [facility] : 1955 Age/S:68 / F [address] [place] [address] Unit #: [id number] Loc: [place] [address] Phys: Kimberly Pak MD Acct: [id number] Dis Date: Status: ADM IN PHONE #: [phone] Exam Date: 07/15/20237 FAX #: [phone] Reason: CAROTID STENOSIS Report Has Been Amended EXAMS: CPT CODE: [id number] CT ANGIO NECK 97377 (Continued) at 2054 Reported and signed by: Jordy Mitchell M.D. CC: Kimberly Pak MD; Tanvir Prasad MD; Benito Nugent MD; Cinthya Leiva MD; Jaxson Grover MD Technologist:Christiano Coburn Jr, RT(R)(CT) CTDI: DLP: Trnscb Date/Time: 07/15/2023 (2054) [email or web address] Orig Print D/T: S: 07/15/2023 (2058) PAGE 3 Signed Report- CTA [id number] 21:12:00 [facility] : 1955 Sex: F Name: JOSEPH ROWLEY [facility] : 1955 Age/S: 68 / F [address] [place] [address] Blvd Unit #: [id number] Loc: [place] [address] Phys: Kimberly Pak MD Acct: [id number] Dis Date: Status: ADM IN PHONE #: [phone] Exam Date: 07/15/20231156 FAX #: [phone] Reason: CAROTID STENOSIS Report Has Been Amended EXAMS: CPT CODE: [id number] CTA HEAD 20685 Addendum - 07/15/2023 SIGNED 07/15/2023 ADDENDUM: [id number] CT/CTANHDWWO Addendum: Findings were discussed with Kimberly Pak MD on 07/15/2023 9:11 PM approximately. FOR INTERNAL CODING PURPOSES ONLYRESULT CODE: CVR at 2112 Reported and signed [...] exposure control, adjustment of mA and/or KV accordingto patient size, and/or utilization of iterative reconstruction technique. COMPARISON: None available time of interpretation. FINDINGS: PAGE 1 Signed Report (CONTINUED) Name: JOSEPH ROWLEY : 1955 Age/S: 68 / F [address] [facility] Unit #: [id number] Loc: [place] [address] Phys: Kimberly Pak MD Acct: [id number] Dis Date: Status: ADM IN PHONE #: [phone] Exam Date: 07/15/20231156 FAX #: [phone] Reason: CAROTID STENOSIS Report Has Been Amended EXAMS: CPT CODE: [id number] CTA HEAD 71320 (Continued) For the purposes of this dictation, hemodynamically significant stenosis is characterized as greater than 50%. CTA head: The petrous, cavernous, and clinoid internal carotid arteries do not demonstrate hemodynamically significant stenoses. The anterior and left middle cerebral arteries do not demonstrate hemodynamically significant stenoses. There are multiple filling defects noted in the right M1. [place] of both vertebral arteries into the basilar. Basilar artery and posterior cerebral arteries are do not demonstrate hemodynamically significant stenoses. The dural venous sinuses are patent. CTA neck: The origins of the great vessels fromthe aortic arch do not demonstrate hemodynamically significant stenoses. The bilateral common carotid arteries and bulbs are without hemodynamically significant stenosis. The internal carotid arteries do not demonstrate hemodynamically significant stenosis. The left vertebral artery is dominant. Noincidental soft tissue findings. IMPRESSION: 1. Multiple filling defects in the right M1 segment bangura spicious for thrombus. These are of uncertain chronicity. Correlate with symptoms and consider further evaluation with conventional angiogram and MRI of the brain. 2. No evidence of carotid stenosis.PAGE 2 Signed Report (CONTINUED) Name: JOSEPH ROWLEY : 1955 Age/S: 68 / F [address] [facility] Unit #: [id number] Loc: [place] [address] Phys: Kimberly Pak MD Acct: [id number] Dis Date: Status: ADM IN PHONE #: [phone] Exam Date: 07/15/20231156 FAX #: [phone] Reason: CAROTID STENOSIS Report Has Been Amended EXAMS: CPT CODE: [id number] CTA HEAD 79864 (Continued) at 2054 Reported and signed by: Jordy Mitchell M.D. CC: Kimberly Pak MD; Tanvir Prasad MD; Benito Nugent MD; Cinthya Mercado; Jaxson Grover MD Technologist:Christiano Coburn Jr, RT(R)(CT) CTDI: DLP: Trnscb Date/Time: 07/15/2023 (2054) [email or web address] Orig Print D/T: S: 07/15/2023 (2058) PAGE 3 Signed ReportCBC W/AUTO [id number] 08:11:00 * Test Item Value Reference Range Interpretation Comme [...] c ode = MDIFF) NO BASIC METABOLIC [id number] 07:12:00* Test Item Value Reference Range Interpretation [...] code = CA) 9.3 mg/dL 8.0-10.5 N [id number] 07:12:00* Test Item Value Reference Range Interpretation Comme nts MAGNESIUM (test code = MAG) 2.09 mg/dL 1.6-2.6 N NOTE: NEW NORMAL RANGE AB HEPATITIS B [id number] 06:12:00* Test Item Value Reference Range Interpretation Comme nts AB HEPATITIS B SURFACE (test code = HBSAB) < 3.1 mIU/mL See_Comment L Status of Immuni ty Anti-HBs Level Inconsi stent with Immunity 0.0 - 9.9Consistent with Immunity >9.9Performed At: [facility] [address] [id number] Skip Carter MD Ph:[phone] [Automated message] The system which generated this result transmitted reference range: Immunity>9.9. The reference range was not used to interpret this result as normal/abnormal. BASIC METABOLIC [id number] 05:21:00* Test Item Value Reference Range Interpretation [...] code = CA) 9.4 mg/dL 8.0-10.5 N [id number] 05:21:00* Test Item Value Reference Range Interpretation Comme nts MAGNESIUM (test code = MAG) 2.09 mg/dL 1.6-2.6 N NOTE: NEW NORMAL RANGE CBC W/AUTO [id number] 04:59:00* Test Item Value Reference Range Interpretation [...] (test code = MDIFF) NO CBC W/AUTO [id number] 06:59:00* Test Item Value Reference Range Interpretation [...] MDIFF) NO UA RFLX MICR CULT IF [id number] 02:01:00* Test Item Value Reference Range Interpretation [...] 100.4 FSpecimen Description: MID STREAM- DUP VEIN [id number] 00:00:00 [facility] : 1955 Sex: F Name: JOSEPH ROWLEY [facility] : 1955 Age/S: 68 / F [address] [place], [place] [address]vd Unit #: [id number] Loc: [place] [address] Phys: Trudy Colindres Acct: [id number] Dis Date: Status: ADM IN PHONE #: [phone] Exam Date: 07/13/2023 0656 FAX #: [phone] Reason: BLE EXAMS: CPT CODE:[id number] DUP VEIN SHEKHAR 83138 PROCEDURE INFORMATION: Exam: US Duplex Lower Extremity Veins; Vein mapping Exam date and time: 07/13/2023 4:52 AM Age: 68 years old Clinical indication: Screening exam; Pre op for cabg; Additional info: Ble TECHNIQUE: Imaging protocol: Real-time duplex ultrasound of the extremities with 2-D cormier scale, color Doppler flow [...] saphenous vein is patent. Left greater saphenous vein-upperthigh: 3.3 mm Left greater saphenous vein-mid thigh: 3.6 mm Left greater saphenous vein-lower thigh: 3.3 mm Left greater saphenous vein-upper le mm Left greater saphenous vein-mid le.4 mm Left greater saphenous vein-lower le mm Soft tissues: Unremarkable. IMPRESSION: Greater saphenous vein is patent. Vein mapping as described. at 0719 Reported and signed by: Leonardo Martell M.D. CC: Tanvir Prasad MD; Benito Nugent MD; Jaxson Grover MD; Trudy Colindres Technologist: Cici Valentine RDMS(AB)(OB) Trnscb Date/Time:07/13/2023 (718) BeanAB53 Orig Print D/T: S: 07/13/2023 (718) Probe: PAGE 1 Signed Report- DUP EXTRACRANIAL [id number] 00:00:00[facility] SYLWIA ISAACSName: JOSEPH ROWLEY : 1955 Sex: F Name: JOSEPH ROWLEY [facility] [place] : 1955 Age/S: 68 / F [address] [facility] [address] Unit #: [id number] Loc: [place] [address] Phys: Trudy Colindres Acct: [id number] Dis Date: Status: ADM INPHONE #: [phone] Exam Date: 07/13/2023 0656 FAX #: [phone] Reason: R/O Carotid stenosis EXAMS: CPT CODE: [id number] DUP EXTRACRANIAL SHEKHAR 01235 PROCEDURE INFORMATION: Exam: US Duplex Bilateral Extracranial [...] significant stenosis to either carotid artery. Consensus panelDoppler US criteria for diagnosis of ICA stenosis: Stenosis (%) ICA PSV (cm/sec) ICA/CCA ratio ----- <50 <180 <2.0 50-69 180-230 2.0-4.0 >70 but less than >230 >4.0 near occlusion PAGE 1 Signed Report (CONTINUED) Name: JOSEPH ROWLEY [facility] [place] : 1955 Age/S: 68 / F [address] [place] [address] Bl Unit #: [id number] Loc: [place] [address] Phys: Trudy Colindres Acct: [id number] Dis Date: Status: ADM IN PHONE #: [phone] Exam Date: 07/13/2023 0656 FAX #: [phone] Reason: R/O Carotidstenosis EXAMS: CPT CODE: [id number] DUP EXTRACRANIAL SHEKHAR 98758 (Continued) Near occlusion High, low, or Variable undetectable at 0948 Reported and signed by: David Liao M.D. CC: Tanvir Prasad MD; Benito Nugent MD; Jaxson Grover MD; Trudy Colindres Technologist: Cici Valentine RDMS(AB)(OB) Trnscb Date/Time: 07/13/2023 (947) BeanCS18 Orig Print D/T: S: 07/13/2023 (947) Probe: PAGE 2 Signed Report- CT CHEST W/O CONTRAST 2023-07-13 00:00:00 [facility] : 1955 Sex: F Name: JOSEPH ROWLEY [facility] : 1955 Age/S: 68 / F [address] [place] [address] Blvd Unit #: [id number] Loc: [place] [address] Phys: Trudy Colindres Physic Acct: [id number] Dis Date: Status: ADM IN PHONE #: [phone] Exam Date: 07/13/2023 1446 FAX #: [phone] Reason: CAD, PVD EXAMS: CPT CODE: [id number] CT CHEST W/O CONTRAST 46253 PROCEDURE INFORMATION: Exam: CT Chest Without Contrast; Diagnostic Exam date and time: 07/13/2023 2:31 PM Age: 68 years old Clinical indication: Other: Cad, pvd TECHNIQUE: Imaging protocol: Diagnostic computed tomography of the chest without contrast. Radiation optimization: All CT scans at this facility use at least one of these dose optimization techniqu es: automated exposure control; mA and/or kV adjustment [...] current study. COMPARISON: DX XR CHEST 2 V07/11/2023 11:57 AM FINDINGS: Tubes, catheters and devices: Right dialysis catheter tip at the atrial caval junction. Trachea: Central bronchi are patent. Lungs: Bilateral lower lobe atelectasis. Mucous plugging and inflammation posterior right upper lobe. Nonspecific 3 mm right upper lobe pulmonarynodule (series 4, image 20). Pleural spaces: No pneumothorax. Bilateral small pleural effusions. Heart: Heart size is enlarged. No pericardial effusion. Coronary arteries: Severe coronary artery calci fication. Lymph nodes: No enlarged lymph nodes. Vasculature: Moderate atherosclerotic calcificationof the aortic arch and descending thoracic aorta. [...] 1 Signed Report (CONTINUED) Name: JOSEPH ROWLEY [facility] : 1955 Age/S: 68 / F [address] [place] [address] Unit #: [id number] Loc: [place] [address] Phys: Trudy Colindres Acct: [id number] Dis Date: Status: ADM IN PHONE #: [phone] Exam Date: 07/13/2023 [facility] FAX #: [phone] Reason: CAD, PVD EXAMS: CPT CODE: [id number] CT CHEST W/O CONTRAST 47675 (Continued) (Reference: Tony) 3. Atherosclerotic disease. 4. Bilateral small pleural effusions. REFERENCES: Tony Angel, et al. Guidelines for Management of Incidental Pulmonary Nodules Detected on CT Images: From the Fleischner Society 2017. Radiology. 2017;284(1):228-243. at 1740 Reportedand signed by: Francesca Meyer M.D. CC: Tanvir Prasad MD; Benito Nugent MD; Jaxson Nicole; Trudy Carter Physic Jens Technologist:Christiano Coburn Jr, RT(R)(CT) CTDI: DLP: Trnscb Date/Time: 07/13/2023 (1739) t.DARIONR.M913 Orig Print D/T: S: 07/13/2023 (174) PAGE [...] NON REACTIVE INDEX NON REACT. BASIC METABOLIC [id number] 18:40:00* Test Item Value Reference Range Interpretation [...] code = CA) 9.2 mg/dL 8.0-10.5 N [id number] 14:05:00* Test Item Value Reference Range Interpretation Comme nts ACT-ISTAT (test code = ACTI) 119 SEC 74-137 N Performed by cer tified timing machine operator at [facility] [id number] 12:39:00* Test Item Value Reference Range Interpretation Comme nts ACT-ISTAT (test code = ACTI) 161 SEC 74-137 H Performed by cer tified timing machine operator at [facility] GLUCOSE [id number] 08:46:00* Test Item Value Reference Range Interpretation Comme nts GLUCOSE BEDSIDE (test code = GLUBED) 164 MG/DL 70-110 H Performed by cer tr[place] timing machine operator at [facility] CBC W/AUTO [id number] 14:10:00* Test Item Value Reference Range Interpretation [...] REQUIRED (test code = MDIFF) NO RBC [id number] 14:10:00* Test Item Value Reference Range Interpretation Comme nts ANISOCYTOSIS (test code = ANISO) 2+ MACROCYTOSIS (test code = MACR) 2+ BASIC METABOLIC [id number] 12:07:00* Test Item Value Reference Range Interpretation [...] = CA) 9.6 mg/dL 8.0-10.5 N PROTHROMBIN [id number] 11:59:00* Test Item Value Reference Range Interpretation [...] prevent recurrent infarct). - XR CHEST 2 [id number] 00:00:00 [facility] : 1955 Sex: F FAX: Benito Jeronimo MD [phone] [facility]: St: PRE FAX: Jaxson Woody MD [phone] Name: JOSEPH ROWLEY [facility] Sylwai Isaacs : 1955 Age/S: 68/F [address] [place] [address] Unit #: [id number] Loc: [place] [address] Phys: Jaxson Grover MD Acct: [id number] Dis Date: Status: PRE SDC PHONE #: [phone] Exam Date: 07/11/2023 1223 FAX #: [phone] Reason: PREOP EXAMS: CPT CODE: [id number] XR CHEST 2 V 23915 PROCEDURE INFORMATION: Exam: XR Chest Exam date and time: 07/11/2023 11:57 AM Age: 68 years old Clinical indication: Screening exam; Pre- operative exam; Cardiovascular screening; Additional info: Preop TECHNIQUE: [...] very small left pleural effusion. No pneumothorax. H eart/Mediastinum: The heart size is normal. The pulmonary vasculature is normal. The mediastinal contour is normal. The trachea is midline. Bones/joints: No acute abnormality seen. IMPRESSION: Findings consistent with a very small left pleural effusion. at 1243 Reported and signed by: Christopher Vines M.D. CC: Benito Nugent MD; Jaxson Grover MD Technologist: Tamy Dimas RT(R) Trnscrd Date/Time/By: 07/11/2023 (5833) :By: BeanTDO Orig Print D/T: S: 07/11/2023 (8172) PAGE 1 Signed ReportPOCT HEMOGLOBIN A1C [id number] 17:03:00* Test Item Value Reference Range Interpretation Comme nts POCT HBA1C (test code = 4548-4) 6.3 % 4-6 A Lab Interpretation (test cod e = 57230-2) [facility] [id number] 17:03:00* Test Item Value Reference Range Interpretation Comme nts POCT HBA1C (test code = 4548-4) 6.3 % 4-6 A Lab Interpretation (test cod e = 53150-0) [facility] [id number] 19:22:00* Test Item Value Reference Range Interpretation Comme nts POCT HBA1C (test code = 4548-4) 7.4 % 4-6 A Lab Interpretation (test cod e = 79799-8) [facility] HEMOGLOBIN A1C [id number] 19:22:00* Test Item Value Reference Range Interpretation Comme nts POCT HBA1C (test code = 4548-4) 7.4 % 4-6 A Lab Interpretation (test cod e = 81373-6) [facility] Notes Date/Time Note Provider Source 2024-05-18 08:13:51 Called to speak with patient. She states she believes [facility] was sending her a new Omnipod and she was unsure of how to use. She would like the Omnipod Dash. Reviewed chart and RX and Dr. Yeboah sent for Omnipod Dash. She states she will be able to use this one. Patient also has HH who I advised may be able to help. Patient verbalized understanding. If she does not receive Omnipod Dash or needs a different prescription, patient will contact the clinic. No further needs or questions at this time. Patient agreed with plan of care. Pearl Floyd RN [facility] 2024-05-16 12:53:32 Attempted to contact patient. No answer at this time. Voicemail left. ulieth [facility] 2024-05-15 18:13:50 Already called patient and sent alternative device on 05/11/24 Alessandro Yeboah MD Division of Endocrinology and Metabolism [facility] 2024-05-15 16:55:26 Joseph Rowley is a 69 year old female Pt is calling to speak with nurse Pearl regarding dash, Pt states, she called Omnipod and they mentioned she needs to have training before the dash, Pt states, she has dialysis tomorrow morning at 10:00 am, Please advise (home) Zoila Mata [facility] 2024-05-15 16:50:55 Attempted to contact patient. No answer at this time. Voicemail left. Pearl Floyd RN [facility] 2024-05-15 10:06:52 Refilled on 05/11/2024, duplicate request. Pearl Floyd RN [facility] 2024-05-14 14:37:51 Duplicate encounters regarding same issue. Have attempted to contact patient x3 in regards to which omnipod is preferred. Pearl Floyd RN [facility] 2024-05-14 08:01:06 Rerouting for completion and closure. Hina Sahu [facility] 2024-05-11 12:52:18 Addended by: ALESSANDRO YEBOAH MD on: 05/11/2024 12:52 PM Modules accepted: Orders [facility] 2024-05-11 12:48:34 Called patient and she decided switching to Omnipod DASH pod RX was sent Alessandro Yeboah MD Division of Endocrinology and Metabolism T [facility] 2024-05-11 09:54:33 Attempted to contact patient in regards to requested change of prescription. No answer at this time. Voicemail left. [facility] 2024-05-11 09:53:56 Disregard - see previous encounter. [facility] Pearl Floyd RN [facility] 2024-05-11 09:37:43 Refill Request: Requested Prescriptions Pending Prescriptions Disp Refills insulin pump cart,cont inf,RF (OMNIPOD CLASSIC PODS, GEN 3,) Crtg 30 Each 1 Sig: inject 1 Kit under the skin every 72 (seventy-two) hours. Last office visit: 02/21/2024 Last refill date: 02/21/2024 Patient was given a 6 month supply. Contacted pharmacy who stated this was not for a refill request, but the prescription is for an older omnipod and they are set to be discontinued. They are requesting a new prescription for the newer version. Routing to Dr. Yeboah for review. [facility] 2024-05-10 17:54:50 Please call patient to update and ask which option she want to switch? Patient was aware the Omnipod 3 is going to be discontinued Alessandro Yeboah MD Division of Endocrinology and Metabolism [facility] 2024-05-10 16:41:37 [facility] calling states the insulin pump cart,cont inf,RF (OMNIPOD CLASSIC PODS, GEN 3,) Crtg is about to be discontinued. They will need a new Rx. Callback [phone] Ref # [id number] [facility] 2024-05-10 15:54:17 Rx #: [id number] Pharmacy comment: OMNIPOD CLASSIC 5 PACK ndc [id number] (older version) is unavailable, set to be discontinued. To prescribe an alternate please respond with appropriate changes. FYI, the newer versions are available. OMNIPOD CLASSIC 5 PACK ndc [id number] (older version) is unavailable, set to be discontinued. To prescribe an alternate please respond with appropriate changes. FYI, the newer versions are available. Caro Ford MA [facility] 2024-05-09 12:35:00 [facility] Hospitalist History Physical REPORT#:[id number] REPORT STATUS: Signed REPORT INITIALIZATION DATE:05/09/24 TIME: 1234 PATIENT: JOSEPH ROWLEY UNIT #: [id number] ROOM/BED: [place] [address] : 57 AGE: 69 SEX: F ATTEND: Kenzie Gordillo MD ADM AUTHOR: Kenzie Gordillo MD REPT SERVICE DT/TIME: 05/09/24 1235 * ALL edits or amendments must be made on the electronic/computer document * History of Present Illness HPI Chief complaint: Hypotension PCP: PCP: Benito Nugent MD HPI: This is a 69-year-old female with past medical history of type 1 diabetes mellitus, end-stage renal disease on hemodialysis has been admitted to the hospital to get thrombectomy with angioplasty of the peripheral dialysis segment and placement of stents. Patient postprocedure patient was noted to be hypotensive so she was admitted to the hospital. At bedside patient is doing okay she started on midodrine. Patient Assist use on Tuesday. History Additional medical history: type 1 diabetes from the age of 46 years old, end-stage renal disease, on dialysis since July 2022, hypertension Family history: Denies: CAD < 40 yrs old. Additional family history: reviewed and is noncontributory. Alcohol use: Denies EtOH use Drug use: Denies recreational drugs Smoking status for patients 13 years old or older: Never Smoker Medication/Allergy-Vaccine Hx Allergies: Coded Allergies: sulfamethoxazole (From BACTRIM) (Severe, ANAPHYLAXIS 05/07/24) trimethoprim (From BACTRIM) (Severe, ANAPHYLAXIS 05/07/24) codeine (Mild, NAUSEA 05/07/24) Review of Systems All systems rev neg: except as marked Objective General Medications: Active Meds + DC'd Last 24 Hrs Acetaminophen (TYLENOL EXTRA STRENGTH) 1,000 MG PREOP ONCE PO (CKD) Clopidogrel Bisulfate (Plavix) 75 MG DAILY PO Acetaminophen (TYLENOL) 650 MG Q6H PRN PRN PO Hydromorphone HCl (DILAUDID) 1 MG Q8H PRN PRN IV Midodrine (PROAMATINE) 5 MG TID PO Ondansetron HCl (ZOFRAN ODT) 4 MG Q6H PRN PRN PO Albumin Human (ALBUMINAR-25%) 50 ML ONCE ONE IV (DC) Albumin Human (ALBUMINAR-25%) 50 ML .STK-MED ONE IV (DC) Albumin Human (ALBUMINAR-25%) 50 ML ONCE ONE IV (DC) Clopidogrel Bisulfate (Plavix) 0 .STK-MED ONE PO (DC) Albumin Human (ALBUMINAR-25%) 50 ML .STK-MED ONE IV (DC) Midodrine (PROAMATINE) 5 MG ONCE ONE PO (DC) Clopidogrel Bisulfate (Plavix) 75 MG PACU ONCE ONE PO (DC) Ondansetron HCl (ZOFRAN ODT) 4 MG Q6H PRN PRN PO (DC) Heparin Sodium (HEPARIN SODIUM) 0 .STK-MED ONE .ROUTE (DC) Cefazolin Sodium (KEFZOL OR ANCEF) 0 .STK-MED ONE .ROUTE (DC) Alteplase, Recombinant (CATHFLO ACTIVASE) 0 .STK-MED ONE .ROUTE (DC) Fentanyl Citrate [...] PACU ONCE PRN SUBQ (DC) Labetalol HCl (labetalol) 5 MG PACU Q10MIN PRN PRN IV (DC) Meperidine HCl (MEPERIDINE HCL/PF) 12.5 MG PACU ONCE PRN IV (DC) Morphine Sulfate (morphine SULFATE) 2 MG PACU Q10MIN PRN PRN IV (DC) Ondansetron HCl (ZOFRAN) 4 MG PACU ONCE PRN IV (DC) Ropivacaine (NAROPIN 0.5% 150 MG/30mL) 150 MG ASDIR PRN LOCAL (DC) Tramadol HCl (ULTRAM) 50 MG PACU ONCE PO (DC) Dexamethasone Sodium Phosphate (DECADRON) 0 .STK-MED ONE .ROUTE (DC) Fentanyl Citrate (SUBLIMAZE) 0 .STK-MED ONE .ROUTE (DC) Lidocaine HCl (XYLOCAINE) 0 .STK-MED ONE .ROUTE (DC) Midazolam HCl (VERSED) 0 .STK-MED ONE .ROUTE (DC) Ondansetron HCl (ZOFRAN) 0 .STK-MED ONE .ROUTE (DC) Propofol (DIPRIVAN 200MG/20ML INJECTION) 0 .STK-MED ONE IV (DC) Physical Exam General appearance: alert, awake Head/Eyes: atraumatic, clear cornea, EOMI, normal conjunctiva/sclera, normal eyelids/periorb., normocephalic, PERRL ENT: normal dentition, normal ear left, normal ear right, normal nose, normal pharynx, normal sinus Neck: full range of motion, non-tender, normal thyroid, supple/no meningismus, no bruit/NL carotids, no JVD, no masses or swelling Cardiovascular: normal capillary refill, regular rate rhythm Respiratory: clear to auscultation, no distress Abdomen: non-tender, normal bowel sounds, soft, no distention, no guarding, no hernia, no mass/organomegaly, no rebound Extremities: moves all, normal capillary refill, normal range of motion, no edema Musculoskeletal: normal inspection Neuro/DEMURRAGE AGENT: alert, oriented X 3 Psychiatry: normal affect, normal judgment/insight, normal mood, not homicidal, not suicidal, no hallucinations Diagnosis, Assessment Plan Free Text DxA P Notes Free Text DxA P Notes: Hypotension Status post thrombectomy of the thrombosed left arm AV graft End-stage renal disease hemodialysis Type 1 diabetes mellitus Plan Patient noted to be hypotensive postprocedure Patient states her blood pressure runs in the 100s Patient started on midodrine 5 mg 3 times daily Continue monitor blood pressure closely, will obtain orthostatic blood pressure Resume dialysis per nephrology Continue home insulin dose DVT prophylaxis: SCDs at 1238 RPT #:[id number] END OF REPORT [facility] 2024-05-08 17:51:00 [facility] ([facility] Operative Note - Full REPORT#:[id number] REPORT STATUS: Signed REPORT INITIALIZATION DATE:05/08/24 TIME: 1750 PATIENT: JOSEPH ROWLEY UNIT #: [id number] ROOM/BED: : 57 AGE: 69 SEX: F ATTEND: Luis Carlos Huggins MD ADM AUTHOR: Luis Carlos Huggins MD REPT SERVICE DT/TIME: 05/08/241750 * ALL edits or amendments must be made on the electronic/computer document * Operative Report ORM Surgeries: Surgery Date and Time: 05/08/2024 133 Primary Procedure: FISTULOGRAM Start date: 05/08/24 Start time: 1630 Pre-procedure diagnosis: Thrombosed left arm arteriovenous graft Malfunction of left arm arteriovenous graft End-stage renal disease Post-procedure diagnosis: same Procedures performed: 1. Percutaneous ultrasound-guided active access left upper extremity arteriovenous graft with percutaneous pharmacomechanical thrombectomy with angioplasty of peripheral dialysis segment and placement of stents, 7 mm x 5 cm, 8 mm x 2.5 cm and 8 mm x 5 cm Viabahn's in the peripheral dialysis segment 30467 2. Left upper remedy unilateral arteriogram with selective catheter placement in the left subclavian and axillary arteries 16060 Technique/Procedure: The patient was brought into the operating room and prepped and draped in the usual sterile manner. tPA, 10 mg was placed throughout the thrombosed arteriovenous graft. Percutaneous ultrasound-guided active access was obtained near the arterial graft anastomosis with a micropuncture system and initial graftogram was completed. This was exchanged over a Glidewire to a 6 [place] 10 cm sheath and a glide catheter was advanced to the outflow brachial artery just past the venous anastomosis and venogram was completed of the outflow portion of the graft and central dialysis segment. A stiff Glidewire was then placed to the inferior vena cava under fluoroscopic guidance. A 6 mm balloon was then used to macerate the clot within the graft and angioplasty of the outflow cephalic vein. This caused bleeding at the critical stenosis just distal to the anastomosis therefore the sheath was exchanged to a 7 [place] 10 cm sheath initially and a centimeter by 5 cm Viabahn stent graft was deployed across the bleeding section at the anastomosis which stopped the bleeding. Thrombectomy was completed with suction thrombectomy and mechanical thrombectomy of the graft and outflow portion. There remaining stenotic segment was recalcitrant to complete opening therefore an additional 8 x 2.5 and then 8.5 cm Viabahn stent graft was deployed after initial attempted angioplasty with a 7 mm drug-coated balloon. After completion of stents in close significantly improved. Retrograde angiography demonstrated open arterial graft anastomosis with concern for thrombus within the inflow segment therefore percutaneous ultrasound-guided active access was obtained retrograde and a 6 [place] sheath was placed and Glidewire was advanced into the brachial artery and axillary artery across the anastomosis. 6 mm balloon was then used to complete a thrombectomy through the arterial graft anastomosis and angioplasty of the inflow graft segment and suction thrombectomy was completed of the remaining intervening graft. This yielded good flow. A glide catheter was advanced to the axillary and subclavian artery and selective angiography was completed pleated initially at subclavian artery and then at the axillary artery of the left upper extremity as described. Good flow was noted throughout the graft. There was spasm in the brachial artery from the glide catheter placement but this was deemed to resolve over time. 2-0 nylon stitch was then used to close the skin at the sheath access site and the sheath were removed. The patient tolerated the procedure well. There are no complications. The patient was stable and discharged to the PACU. Primary Surgeon: Dr. Luis Carlos Huggins Shirt Cleaner(s): none Anesthesia: general anesthesia Operative findings: Left upper extremity graftogram initially demonstrates thrombosis of left upper extremity arteriovenous graft. Placing a glide catheter past the venous anastomosis demonstrates a 7 to 8 cm segment of critical stenosis to greater than 90% in the outflow brachial vein. The outflow actually vein is patent through the subclavian vein to the left brachiocephalic vein to the superior vena cava with flow to the right atrium. Unilateral left lower extremity arteriogram with catheter placed in the subclavian artery demonstrates good flow to the subclavian and left vertebral artery V1 through the 3 segments. The left axillary is patent extending to the brachial artery which is patent to the graft anastomosis. The outflow brachial artery is patent to the radial and ulnar arteries with tapering stenosis to the wrist but patent flow likely secondary to diminutive vessels and spasm and some element of steal syndrome from the graft. Complications: none Estimated blood loss in ml's: none Specimens removed/altered: thrombus Implant(s): stents at 1757 RPT #:[id number] END OF REPORT [facility] 2024-05-08 17:43:00 [facility] ([facility]) Brief Op Note REPORT#:[id number] REPORT STATUS: Signed REPORT INITIALIZATION DATE:05/08/24 TIME: 1742 PATIENT: JOSEPH ROWLEY UNIT #: [id number] ROOM/BED: : 57 AGE: 69 SEX: F ATTEND: Luis Carlos Huggins MD ADM AUTHOR: Luis Carlos Huggins MD REPT SERVICE DT/TIME: 05/08/241742 * ALL edits or amendments must be made on the electronic/computer document * Op/Inv Proc Note - Brief ORM Surgeries: Surgery Date and Time: 05/08/2024 1330 Primary Procedure: FISTULOGRAM Pre-procedure diagnosis: Thrombosed left arm arteriovenous graft Malfunction of left arm arteriovenous graft End-stage renal disease Post-procedure diagnosis: same as pre procedure dx Procedures performed: 1. Percutaneous ultrasound-guided active access left upper extremity arteriovenous graft with percutaneous pharmacomechanical thrombectomy with angioplasty of peripheral dialysis segment and placement of stents, 7 mm x 5 cm, 8 mm x 2.5 cm and 8 mm x 5 cm Viabahn's in the peripheral dialysis segment 46805 2. Left upper remedy unilateral arteriogram with selective catheter placement in the left subclavian and axillary arteries 99902 Primary Surgeon: Dr. Luis Carlos Huggins Shirt Cleaner(s): none Findings: Left upper extremity graftogram initially demonstrates thrombosis of left upper extremity arteriovenous graft. Placing a glide catheter past the venous anastomosis demonstrates a 7 to 8 cm segment of critical stenosis to greater than 90% in the outflow brachial vein. The outflow actually vein is patent through the subclavian vein to the left brachiocephalic vein to the superior vena cava with flow to the right atrium. Unilateral left lower extremity arteriogram with catheter placed in the subclavian artery demonstrates good flow to the subclavian and left vertebral artery V1 through the 3 segments. The left axillary is patent extending to the brachial artery which is patent to the graft anastomosis. The outflow brachial artery is patent to the radial and ulnar arteries with tapering stenosis to the wrist but patent flow likely secondary to diminutive vessels and spasm and some element of steal syndrome from the graft. Complications: none Estimated blood loss in ml's: none Specimens removed/altered: thrombus at 1750 [facility] #:[id number] END OF REPORT [facility] 2024-05-08 17:37:00 [facility] ([facility]) Brief Discharge Note w/Med Rec REPORT#:[id number] REPORT STATUS: Signed REPORT INITIALIZATION DATE:05/08/24 TIME: 1736 PATIENT: JOSEPH ROWLEY UNIT #: [id number] ROOM/BED: : 57 AGE: 69 SEX: F ATTEND: Luis Carlos Huggins MD ADM AUTHOR: Luis Carols Huggins MD REPT SERVICE DT/TIME: 05/08/24 7250 * ALL edits or amendments must be made on the electronic/computer document * Med Rec Med Rec Discharge meds: Continue taking these medications: DORZOLAMIDE/TIMOLOL (COSOPT 2%-0.5% OPHTH) 22.3 MG-6.8 MG/ML OPHTH.SOLN 1 DROPS EACH EYE EVERY 12 HOURS. MIDODRINE (PROAMATINE) 5 MG TAB 5 MILLIGRAM ORAL THREE TIMES A DAY. NETARSUDIL (RHOPRESSA 0.02% OPHTH) 0.02 % DROPS [...] 25 MG TAB.SR.24H 25 MILLIGRAM ORAL DAILY. APIXABAN (ELIQUIS) 2.5 MG TAB 2.5 MILLIGRAM ORAL TWICE DAILY. TRAVOPROST (TRAVOPROST 0.004% OPHTH) 0.004 % OPHTH.SOLN 1 DROPS EACH EYE BEDTIME. SUBQ INSULIN PUMP (INSULIN PUMP - PATIENT OWN) 1 EACH EACH 0 EACH SUBCUTANEOUS DIRECTED. Instructions: FIASP INSULIN Objective Results Findings/Data: Laboratory Tests: 05/08 05/08 05/08 1420 0911 0845 Chemistry Sodium (134 - 147 mEq/L) 134 Potassium (3.4 - 5.0 mEq/L) 3.5 Chloride (100 - 108 mEq/L) 99 L Carbon Dioxide (21 - 33 mEq/l) 20 L Anion Gap (0 - 20) 18 BUN (7 - 25 mg/dL) 24 Creatinine (0.6 - 1.3 mg/dL) 3.3 H Glomerular Filtr Rate (80 - 90) 14.7 L Glucose (77 - 141 mg/dL) 210 H POC Glucose (70 - 110 MG/DL) 213 H 184 H Calcium (8.0 - 10.5 mg/dL) 9.5 Coagulation INR (0.8 - 1.2) 1.3 H PT Patient/Control Mix (9.3 - 12.9 SECONDS) 14.8 H Hematology WBC (4.5 - 11.0 x10 3/uL) 17.9 H RBC (3.54 - 5.02 x10 6/uL) 3.49 L Hgb (11.0 - 15.0 g/dL) 12.5 Hct (33.0 - 45.0 %) 40.4 MCV (81.0 - 99.0 fL) 115.8 H MCH (27.0 - 33.0 pg) 35.8 H MCHC (33.0 - 37.0 g/dL) 30.9 L RDW (11.5 - 14.5 %) 16.1 H Plt Count (150 - 400 x10 3/uL) 273 MPV (7.0 - 9.0 fL) 11.1 H Neut % (Auto) (56.0 - 77.0 %) 84.3 H Lymph % (Auto) (14.0 - 32.0 %) 5.5 L [place] % (Auto) (4.8 - 9.0 %) 9.4 H Eos % (Auto) (0.3 - 3.7 %) 0.0 L Baso % (Auto) (0.0 - 2.0 %) 0.2 Neut # (Auto) (2.0 - 7.6 x10 3/uL) 15.08 H Lymph # (Auto) (1.0 - 3.8 x10 3/uL) 0.99 L [place] # (Auto) (0.1 - 0.8 x10 3/uL) 1.68 H Eos # (Auto) (0.0 - 0.2 x10 3/uL) 0.00 Baso # (Auto) (0.0 - 0.2 x10 3/uL) 0.03 Abs Immat Gran (auto) (0.00 - 0.03 x10 3/uL) 0.11 H Immature Gran % (0.0 - 2.0 %) 0.6 Nucleated RBC % (0 - 0 %) 0.0 Nucleated RBCs # (Man) (0.0 - 0.1 x10 3/uL) 0.00 Anisocytosis 2+ Macrocytosis 2+ VS/I O Last Documented: Result Date Time Pulse Ox 98 05/08 910 B/P 95/47 05/08 0910 Temp 97.7 05/08 910 Pulse 101 05/08 0910 Resp 16 05/08 0910 Brief Discharge Note w/Med Rec Problem List/A P: 1. ESRD (end stage renal disease) on dialysis Discharge to: Home/Self Care Discharge diagnosis: Thrombosed left arm arteriovenous graft Pt. condition on discharge: stable Additional Discharge Routines: Attending Follow-Up, Wound/Dressing Care Diet: Resume Home Diet/Feeds Activity: Resume Normal Activity Wound/dressing care: Clean wound daily, Do not submerge incision, Keep wound clean and dry, OK to shower tomorrow Follow-up Appointments Attending Physician: Attending Physician: Luis Carlos Huggins MD Attending physician follow up timeframe: In 1-2 weeks at 1739 [facility] #:[id number] END OF REPORT [facility] 2024-05-04 10:23:52 Refill Request: Requested Prescriptions Pending Prescriptions Disp Refills Glucagon (GLUCAGON EMERGENCY KIT, HUMAN,) injection Sig: by Intramuscular route as needed (hypoglycemia and unconscious). Last office visit: 02/21/2024 Last refill date: 07/01/2020 Last labs: 02/21/2024 Next appt date: Future Appointments Date Time Provider Department Center 07/17/2024 2:00 PM Alessandro Yeboah MD [id number] [place] - [address] [facility] [address] [place] [address] [facility] 2024-05-04 10:23:42 From: Joseph L Rowley To: Office of Alessandro Yeboah Sent: 04/29/2024 6:07 AM CDT Subject: Medication Renewal Request Refills have been requested for the following medications: glucagon (GLUCAGON EMERGENCY KIT, HUMAN,) 1 mg injection [Alessandro Yeboah] Patient Comment: Need for emergencies Preferred pharmacy: [id number] - [place], [place] - [address] Deliver y method: Pickup [facility] 2024-04-19 10:40:00 [facility] ([facility]) Operative Note - Full REPORT#:[id number] REPORT STATUS: Signed REPORT INITIALIZATION DATE:04/19/24 TIME: 104 PATIENT: JOSEPH ROWLEY UNIT #: [id number] ROOM/BED: : 57 AGE: 69 SEX: F ATTEND: Luis Carlos Huggins MD ADM AUTHOR: Luis Carlos Huggins MD REPT SERVICE DT/TIME: 04/19/24 1040 * ALL edits or amendments must be made on the electronic/computer document * Operative Report ORM Surgeries: Surgery Date and Time: 04/19/2024 1200 Proposed Primary Procedure: RLE ARTERIOGRAM, POSSIBLE ANGIOPLASTY, Start date: 04/19/24 Start time: 1100 Pre-procedure diagnosis: Right superficial femoral and popliteal artery occlusion, atherosclerosis of [place] and [place] arteries right lower extremity with nonhealing wounds Post-procedure diagnosis: same Procedures performed: 1. Percutaneous ultrasound-guided active access left common femoral artery with images maintained for record [id number] 2. Abdominal aortatgram 40755 3. Bilateral lower extremity arteriogram 51289 4. Right superficial femoral artery to popliteal artery stents 5 mm x 25 cm Viabahn stent graft and 5 mm X 7.5 cm 16278 5. Right posterior tibial artery 0.9 laser atherectomy with angioplasty, 2.0 and 2.5 mm balloons 70240 Technique/Procedure: The patient was brought into the operating room prepped and draped in usual sterile manner. Percutaneous also guided active access was obtained to left common femoral artery with a micro catheter system and the sheath was exchanged to a 6 Kitt[place] 10 centimeter sheath. An Omni Flush catheter was placed and aortogram was completed. The patient was given 4000 units of heparin. An Omni Flush catheter was then used to extend a Glidewire into the right common iliac artery the catheter was advanced to the right common femoral artery and distal right lower extremity angiography was completed. The sheath was then exchanged to a 6 [place] 90 cm sheath advanced to the tibioperoneal trunk past the superficial femoral and popliteal artery occlusion with distal angiography to confirm true luminal flow. The outflow posterior tibial artery occlusion was crossed with a 0.014 wire into the plantar arteries and with postangioplasty with distal angiography to confirm true luminal flow and the wire was exchanged to a 0.014 run-through wire with 0.9 laser atherectomy of the entire length of the posterior tibial artery and postangioplasty of the plantar arch extending through the dorsalis pedis with a 2.0 and 2.5 mm balloon serially anteriorly for the entire length of the posterior tibial artery with a 2.0 and 2.5 mm balloons. 600 mcg of nitroglycerin were placed throughout the plantar arch and posterior tibial artery for vasospasm. The femoral-popliteal occlusion was then treated with a 5 mm x 25 cm Viabahn stent graft and built-up with a 5 mm x 7.5 Viabahn stent graft to the ostium of the superficial femoral artery with 4 mm balloon post angioplasty. This was a good result with good flow. The sheath was then pulled back to the left external iliac artery left extremity arteriogram was completed. The patient will have planned return to the operating for treatment of her left popliteal artery stenosis and possible revascularization of her posterior tibial artery if she has nonhealing wounds and for threatened stent. Angio-Seal device was then used to close left groin access without difficulty. The patient taught the procedure well. There was no complications. The patient was stable and discharged to PACU. Primary Surgeon: Dr. Luis Carlos Huggins Shirt Cleaner(s): none Anesthesia: general anesthesia Operative findings: Aortogram demonstrates patent abdominal order with antegrade flow to the celiac trunk, splenic artery, common hepatic artery and gastroduodenal arteries. The superior mesenteric arteries. Antegrade flow but appears stenotic or occluded distally. The inferior mesenteric artery is difficult to visualize but appears to be patent. A large meandering artery is noted however in the abdomen and large lumbar shunt noted. There is a aortic stenosis to approximately 30% below the renal arteries. There is bilateral common iliac stents are patent. Bilateral internal iliac arteries are patent. Bilateral external iliac arteries are patent throught he stents. Patent bilateral common femoral arteries to profunda femoris. The right superficial femoral artery is occluded extending through proximal popliteal artery with reconstitution through profunda collaterals. The right anterior tibial artery is patent to the dorsalis pedis with distal diffuse tapering and stenosis. The tibial trunk is patent to the peroneal artery with diffuse tapering and stenosis. The posterior tibial artery is initially patent but critically stenotic throughout its length with complete occlusion without significant flow noted in the plantar arteries. Severe microvascular disease is noted throughout all vessels distally. The left superficial femoral artery stent grafts are patent extending through the popliteal artery. The there is stenosis in the above-knee popliteal artery extending to just proximal portion of the below-knee portion to approximately 70 % for approximately 4 cm. The left anterior tibial artery is patent with flow extending to the dorsalis pedis. The left tibioperoneal trunk is initially patent but the left posterior tibial artery and left peroneal arteries are occluded. There is severe microvascular disease extending to the distal left foot and distal tibial arteries are not well visualized on retrograde angiography. Complications: none Estimated blood loss in ml's: none Specimens removed/altered: none Implant(s): stents at 1227 RPT #:[id number] END OF REPORT [facility] 2024-04-19 10:36:00 [facility] ([facility]) Brief Op Note REPORT#:[id number] REPORT STATUS: Signed REPORT INITIALIZATION DATE:04/19/24 TIME: 103 PATIENT: JOSEPH ROWLEY UNIT #: [id number] ROOM/BED: : 57 AGE: 69 SEX: F ATTEND: Luis Carlos Huggins MD ADM AUTHOR: Luis Carlos Huggins MD REPT SERVICE DT/TIME: 04/19/24 1036 * ALL edits or amendments must be made on the electronic/computer document * Op/Inv Proc Note - Brief ORM Surgeries: Surgery Date and Time: 04/19/2024 1200 Proposed Primary Procedure: RLE ARTERIOGRAM, POSSIBLE ANGIOPLASTY, Pre-procedure diagnosis: Right superficial femoral and popliteal artery occlusion, atherosclerosis of ass[place]ibo[place] and gros ventre tribes arteries right lower extremity with nonhealing wounds Post-procedure diagnosis: same as pre procedure dx Procedures performed: 1. Percutaneous ultrasound-guided active access left common femoral artery with images maintained for record [id number] 2. Abdominal aortatgram 67475 3. Bilateral lower extremity arteriogram 67968 4. Right superficial femoral artery to popliteal artery stents 5 mm x 25 cm Viabahn stent graft and 5 mm X 7.5 cm 11230 5. Right posterior tibial artery 0.9 laser atherectomy with angioplasty, 2.0 and 2.5 mm balloons [id number] Primary Surgeon: Dr. Luis Carlos Huggins Shirt Cleaner(s): none Anesthesia: general anesthesia Findings: Aortogram demonstrates patent abdominal order with antegrade flow to the celiac trunk, splenic artery, common hepatic artery and gastroduodenal arteries. The superior mesenteric arteries. Antegrade flow but appears stenotic or occluded distally. The inferior mesenteric artery is difficult to visualize but appears to be patent. A large meandering artery is noted however in the abdomen and large lumbar shunt noted. There is a aortic stenosis to approximately 30% below the renal arteries. There is bilateral common iliac stents are patent. Bilateral internal iliac arteries are patent. Bilateral external iliac arteries are patent throught he stents. Patent bilateral common femoral arteries to profunda femoris. The right superficial femoral artery is occluded extending through proximal popliteal artery with reconstitution through profunda collaterals. The right anterior tibial artery is patent to the dorsalis pedis with distal diffuse tapering and stenosis. The tibial trunk is patent to the peroneal artery with diffuse tapering and stenosis. The posterior tibial artery is initially patent but critically stenotic throughout its length with complete occlusion without significant flow noted in the plantar arteries. Severe microvascular disease is noted throughout all vessels distally. The left superficial femoral artery stent grafts are patent extending through the popliteal artery. The there is stenosis in the above-knee popliteal artery extending to just proximal portion of the below-knee portion to approximately 70 % for approximately 4 cm. The left anterior tibial artery is patent with flow extending to the dorsalis pedis. The left tibioperoneal trunk is initially patent but the left posterior tibial artery and left peroneal arteries are occluded. There is severe microvascular disease extending to the distal left foot and distal tibial arteries are not well visualized on retrograde angiography. Complications: none Estimated blood loss in ml's: none Specimens removed/altered: none at 1227 RPT #:[id number] END OF REPORT [facility] 2024-04-19 10:33:00 [facility] ([facility]) Brief Discharge Note w/Med Rec REPORT#:[id number] REPORT STATUS: Signed REPORT INITIALIZATION DATE:04/19/24 TIME: 103 PATIENT: JOSEPH ROWLEY UNIT #: [id number] ROOM/BED: : 57 AGE: 69 SEX: F ATTEND: Luis Carlos Huggins MD ADM AUTHOR: Luis Carlos Huggins MD REPT SERVICE DT/TIME: 04/19/24 1033 * ALL edits or amendments must be made on the electronic/computer document * Med Rec Med Rec Discharge meds: Continue taking these medications: DORZOLAMIDE/TIMOLOL (COSOPT 2%-0.5% OPHTH) 22.3 MG-6.8 MG/ML OPHTH.SOLN 1 DROPS EACH EYE EVERY 12 HOURS. MIDODRINE (PROAMATINE) 5 MG TAB 5 MILLIGRAM ORAL THREE TIMES A DAY. NETARSUDIL (RHOPRESSA 0.02% OPHTH) 0.02 % DROPS [...] 25 MG TAB.SR.24H 25 MILLIGRAM ORAL DAILY. APIXABAN (ELIQUIS) 2.5 MG TAB 2.5 MILLIGRAM ORAL TWICE DAILY. TRAVOPROST (TRAVOPROST 0.004% OPHTH) 0.004 % OPHTH.SOLN 1 DROPS EACH EYE BEDTIME. SUBQ INSULIN PUMP (INSULIN PUMP - PATIENT OWN) 1 EACH EACH 0 EACH SUBCUTANEOUS DIRECTED. Instructions: FIASP INSULIN Objective Results Findings/Data: Laboratory Tests: 04/19 04/19 04/19 0740 0739 0738 Chemistry Sodium (134 - 147 mEq/L) 134 Potassium (3.4 - 5.0 mEq/L) 4.7 Chloride (100 - 108 mEq/L) 99 L Carbon Dioxide (21 - 33 mEq/l) 26 Anion Gap (0 - 20) 14 BUN (7 - 25 mg/dL) 26 H Creatinine (0.6 - 1.3 mg/dL) 3.2 H Glomerular Filtr Rate (80 - 90) 15.3 L Glucose (77 - 141 mg/dL) 168 H POC Glucose (70 - 110 MG/DL) 167 H Calcium (8.0 - 10.5 mg/dL) 9.4 Coagulation INR (0.8 - 1.2) 1.4 H PT Patient/Control Mix (9.3 - 12.9 SECONDS) 15.5 H Hematology WBC (4.5 - 11.0 x10 3/uL) 8.2 RBC (3.54 - 5.02 x10 6/uL) 3.22 L Hgb (11.0 - 15.0 g/dL) 11.6 Hct (33.0 - 45.0 %) 36.8 MCV (81.0 - 99.0 fL) 114.3 H MCH (27.0 - 33.0 pg) 36.0 H MCHC (33.0 - 37.0 g/dL) 31.5 L RDW (11.5 - 14.5 %) 16.3 H Plt Count (150 - 400 x10 3/uL) 293 MPV (7.0 - 9.0 fL) 11.3 H Neut % (Auto) (56.0 - 77.0 %) 65.0 Lymph % (Auto) (14.0 - 32.0 %) 17.1 [place] % (Auto) (4.8 - 9.0 %) 15.0 H Eos % (Auto) (0.3 - 3.7 %) 2.0 Baso % (Auto) (0.0 - 2.0 %) 0.7 Neut # (Auto) (2.0 - 7.6 x10 3/uL) 5.30 Lymph # (Auto) (1.0 - 3.8 x10 3/uL) 1.39 [place] # (Auto) (0.1 - 0.8 x10 3/uL) 1.22 H Eos # (Auto) (0.0 - 0.2 x10 3/uL) 0.16 Baso # (Auto) (0.0 - 0.2 x10 3/uL) 0.06 Abs Immat Gran (auto) (0.00 - 0.03 x10 3/uL) 0.02 Immature Gran % (0.0 - 2.0 %) 0.2 Nucleated RBC % (0 - 0 %) 0.0 Nucleated RBCs # (Man) (0.0 - 0.1 x10 3/uL) 0.00 VS/I O Last Documented: Result Date Time Pulse Ox 97 / 1009 B/P 125/61 / 1009 Pulse 77 / 1009 Brief Discharge Note w/Med Rec Problem List/A P: 1. PAD (peripheral artery disease) Discharge to: Home/Self Care Discharge diagnosis: Right superficial femoral and popliteal artery occlusion, atherosclerosis of ass[place] and gros [place] tribes arteries right lower extremity with nonhealing wounds Pt. condition on discharge: stable Additional Discharge Routines: Attending Follow-Up, Wound/Dressing Care Diet: Resume Home Diet/Feeds Activity: No Strenuous Activity Wound/dressing care: Clean wound daily, Do not submerge incision, Keep wound clean and dry, OK to shower tomorrow Follow-up Appointments Attending Physician: Attending Physician: Luis Carlos Huggins MD Attending physician follow up timeframe: In 1-2 weeks at 1034 RPT #:[id number] END OF REPORT [facility] 2024-04-03 10:32:31 Sending refill for Mickey 2 sensors to pharmacy per patient request Mary Maier LVN [facility] 2024-04-03 08:39:03 Joseph Rowley is a 69 year old female pt is calling because she does not like her mickey 3 and wants to go back to using the mickey 2, she has the machine but just needs approval and a RX for the mickey 2 sensors. Please advise. Josafat Morrison [facility] 2024-03-22 15:41:00 [facility] ([facility]) Operative Note - Full REPORT#:[id number] REPORT STATUS: Signed REPORT INITIALIZATION DATE:03/22/24 TIME: 154 PATIENT: JOSEPH ROWLEY UNIT #: [id number] ROOM/BED: : 57 AGE: 69 SEX: F ATTEND: Luis Carlos Huggins MD ADM AUTHOR: Luis Carlos Huggins MD REPT SERVICE DT/TIME: 03/22/24 1541 * ALL edits or amendments must be made on the electronic/computer document * Operative Report ORM Surgeries: Surgery Date and Time: 03/22/2024 1100 Primary Procedure: LUE CREATION AV GRAFT CEPHALIC Start date: 03/22/24 Start time: 0 Pre-procedure diagnosis: End-stage renal disease Post-procedure diagnosis: Same Procedures performed: End-stage renal disease Technique/Procedure: The patient was brought into the operative room [...] space. The 4 mm portion was beveled and anastomosed to the arteriotomy made to the previous anastomosis along for a venous cath. Patient was heparinized with 3000 units of heparin. 6-0 Prolene stitch was then used to anastomose the graft to the artery and vein cuff in running fashion. Good flows noted on completion. Gelfoam and thrombin was used adjunctively for hemostasis as needed. The outflow graft was then anastomosed to the venotomy in the outflow brachial vein after was beveled with a running 6- 0 Prolene stitch. This was flushed before completion. [...] patient was stable and discharged to the PACU. Primary Surgeon: Dr. Luis Carlos Huggins Shirt Cleaner(s): none Anesthesia: combined spinal/epi Operative findings: Good flow through the graft on completion Complications: none Estimated blood loss in ml's: 100 cc Specimens removed/altered: none Implant(s): propaten at 1548 RPT #:[id number] END OF REPORT [facility] 2024-03-22 15:39:00 [facility] Brief Op Note REPORT#:[id number] REPORT STATUS: Signed REPORT INITIALIZATION DATE:03/22/24 TIME: 1538 PATIENT: JOSEPH ROWLEY UNIT #: [id number] ROOM/BED: : 57 AGE: 69 SEX: F ATTEND: Luis Carlos Huggins MD ADM AUTHOR: Luis Carlos Huggins MD REPT SERVICE DT/TIME: 03/22/241538 * ALL edits or amendments must be made on the electronic/computer document * Op/Inv Proc Note - Brief ORM Surgeries: Surgery Date and Time: 03/22/2024 1100 Primary Procedure: LUE CREATION AV GRAFT CEPHALIC Pre-procedure diagnosis: End-stage renal disease Post-procedure diagnosis: same as pre procedure dx Procedures performed: Creation of left upper arm arteriovenous graft with ptfe, propaten creation, brachial brachial 37371 Primary Surgeon: Dr. Luis Carlos Huggins Shirt Cleaner(s): none Anesthesia: general anesthesia Findings: Good flow through the graft on completion Complications: none Estimated blood loss in ml's: 100 cc Specimens removed/altered: none at 1548 RPT #:[id number] END OF REPORT [facility] 2024-03-22 12:16:00 [facility] ([facility]) Brief Discharge Note w/Med Rec REPORT#:[id number] REPORT STATUS: Signed REPORT INITIALIZATION DATE:03/22/24 TIME: 1215 PATIENT: JOSEPH ROWLEY UNIT #: [id number] ROOM/BED: : 57 AGE: 69 SEX: F ATTEND: Luis Carlos Huggins MD ADM AUTHOR: Luis Carlos Huggins MD REPT SERVICE DT/TIME: 03/22/24 1216 * ALL edits or amendments must be made on the electronic/computer document * Med Rec Med Rec Discharge meds: Continue taking these medications: TRAVOPROST (TRAVOPROST 0.004% OPHTH) 0.004 % OPHTH.SOLN 1 [...] MG TAB.SR.24H 25 MILLIGRAM ORAL DAILY. Objective Results Findings/Data: Laboratory Tests: 03/22 03/22 1030 1018 Chemistry Sodium [...] % (Auto) (14.0 - 32.0 %) 18.1 [place] % (Auto) (4.8 - 9.0 %) 11.1 H Eos % (Auto) (0.3 - 3.7 %) 1.3 Baso % (Auto) (0.0 - 2.0 %) 0.5 Neut # (Auto) (2.0 - 7.6 x10 3/uL) 5.30 Lymph # (Auto) (1.0 - 3.8 x10 3/uL) 1.40 [place] # (Auto) (0.1 - 0.8 x10 3/uL) [...] x10 3/uL) 0.00 Brief Discharge Note w/Med Rec Problem List/A P: 1. ESRD (end stage renal disease) on dialysis Discharge to: Home/Self Care Discharge diagnosis: end stage renal disease Pt. condition on discharge: stable Additional Discharge Routines: Attending Follow-Up, Wound/Dressing Care Diet: Resume Home Diet/Feeds Activity: No Strenuous Activity Wound/dressing care: Clean wound daily, Do not submerge incision, Keep wound clean and dry, OK to shower tomorrow Follow-up Appointments Attending Physician: Attending Physician: Luis Carlos Huggins MD Attending physician follow up timeframe: In 1-2 weeks at 1217 RPT #:[id number] END OF REPORT [facility] 2024-01-26 07:54:00 [facility] ([facility]) Operative Note - Full REPORT#:[id number] REPORT STATUS: Signed REPORT INITIALIZATION DATE:01/26/24 TIME: 753 PATIENT: JOSEPH ROWLEY UNIT #: [id number] ROOM/BED: : 57 AGE: 69 SEX: F ATTEND: Luis Carlos Huggins MD ADM AUTHOR: Luis Carlos Huggins MD REPT SERVICE DT/TIME: 01/26/24 075 * ALL edits or amendments must be made on the electronic/computer document * Operative Report ORM Surgeries: Surgery Date and Time: 01/26/2024 0730 Primary Procedure: CREATION AV FISTULA LEFT ARM Start date: 01/26/24 Start time: 814 Pre-procedure diagnosis: End stage renal disease Post-procedure diagnosis: same Procedures performed: 1. Creation of left upper arm upper extremity brachiocephalic arteriovenous [place] [address] transposition 2. Left upper extremity unilateral venous ultrasound 09369 Technique/Procedure: The patient was brought into the op room and prepped and draped in usual sterile manner. Left lower extremity lateral ultrasound was completed. [...] overlying the brachial artery and carried out with sharp section electrocautery and and this was dissected free circumferentially and all intervening branches were ligated. The vein was then tunneled through a superficial tunnel to the artery and transposed. The patient was heparinized with 3000 units of heparin. The vessels were pulled up on the artery and the vein was spatulated and arteriotomy was made and end-to-side anastomosis was completed with a running 6-0 Prolene stitch and flushed before completion. Good thrill was noted on the fistula on completion. Gelfoam and thrombin were used adjunctively as needed for hemostasis. All wounds were copiously irrigated. The subcutaneous layer was closed with running 3-0 Vicryl stitch. The skin was closed with 4-0 Monocryl stitch in a subcuticular fashion. The patient tolerated procedure well. There are no complications. The patient was stable and discharged to the PACU. Primary Surgeon: Dr. Luis Carlos Huggins Shirt Cleaner(s): none Anesthesia: general anesthesia Operative findings: Left upper extremity unilateral venous ultrasound Vessel diameter Forearm Cephalic vein 2.8 mm, proximal sclerotic -likely occluded with antecubital vein outflow Basilic vein 1.4 mm Radial artery 1.0 mm, not palpable Upper arm Cephalic vein 3.2 mm Basilic vein 4.6 mm Brachial artery 4.0 mm All veins are compressible except as noted above. Complications: none Estimated blood loss in ml's: 35 cc Specimens removed/altered: none Implant(s): none at 1105 RPT #:[id number] END OF REPORT [facility] 2024-01-26 07:52:00 [facility] ([facility]) Brief Op Note REPORT#:[id number] REPORT STATUS: Signed REPORT INITIALIZATION DATE:01/26/24 TIME: 751 PATIENT: JOSEPH ROWLEY UNIT #: [id number] ROOM/BED: : 57 AGE: 69 SEX: F ATTEND: Luis Carlos Huggins MD ADM AUTHOR: Luis Carlos Huggins MD REPT SERVICE DT/TIME: 01/26/24751 * ALL edits or amendments must be made on the electronic/computer document * Op/Inv Proc Note - Brief ORM Surgeries: Surgery Date and Time: 01/26/2024729 Primary Procedure: CREATION AV FISTULA LEFT ARM Pre-procedure diagnosis: End stage renal disease Post-procedure diagnosis: same as pre procedure dx Procedures performed: 1. Creation of left upper arm upper extremity brachiocephalic arteriovenous fistula with 85710 transposition 2. Left upper extremity unilateral venous ultrasound 43422 Primary Surgeon: Dr. Luis Carlos Huggins Shirt Cleaner(s): none Anesthesia: general anesthesia Findings: Left upper extremity unilateral venous ultrasound Vessel diameter Forearm Cephalic vein 2.8 mm, proximal sclerotic -likely occluded with antecubital vein outflow Basilic vein 1.4 mm Radial artery 1.0 mm, not palpable Upper arm Cephalic vein 3.2 mm Basilic vein 4.6 mm Brachial artery 4.0 mm All veins are compressible except as noted above. Complications: none Estimated blood loss in ml's: 35 cc Specimens removed/altered: none at 1105 RPT #:[id number] END OF REPORT [facility] 2024-01-26 07:50:00 [facility] ([facility]) Brief Discharge Note w/Med Rec REPORT#:[id number] REPORT STATUS: Signed REPORT INITIALIZATION DATE:01/26/24 TIME: 749 PATIENT: JOSEPH ROWLEY UNIT #: [id number] ROOM/BED: : 57 AGE: 69 SEX: F ATTEND: Luis Carlos Huggins MD ADM AUTHOR: Luis Carlos Huggins MD REPT SERVICE DT/TIME: 01/26/24749 * ALL edits or amendments must be made on the electronic/computer document * Med Rec Med Rec Discharge meds: Continue taking these medications: TRAVOPROST (TRAVATAN-Z 0.004% OPHTH) 0.004 % OPHTH.SOLN [...] ORAL DAILY. Start taking the following new medications: ACETAMINOPHEN/CODEINE (TYLENOL WITH CODEINE #3 300/30 MG) 300 MG-30 MG TAB 1 TABLET ORAL EVERY 4 HOURS NEEDED. as needed for ACUTE PAIN Qty = 30 No Refills Objective Results Findings/Data: Laboratory Tests: 01/25 01/25 01/25 0628 06 0671 Chemistry Sodium (134 - 147 mEq/L) 134 [...] % (Auto) (14.0 - 32.0 %) 16.0 [place] % (Auto) (4.8 - 9.0 %) 9.9 H Eos % (Auto) (0.3 - 3.7 %) 1.5 Baso % (Auto) (0.0 - 2.0 %) 0.4 Neut # (Auto) (2.0 - 7.6 x10 3/uL) 7.17 Lymph # (Auto) (1.0 - 3.8 x10 3/uL) 1.60 [place] # (Auto) (0.1 - 0.8 x10 3/uL) [...] x10 3/uL) 0.00 Brief Discharge Note w/Med Rec Problem List/A P: 1. ESRD (end stage renal disease) on dialysis Discharge to: Home/Self Care Discharge diagnosis: End stage renal disease Pt. condition on discharge: stable Additional Discharge Routines: Attending Follow-Up, Wound/Dressing Care Diet: Resume Home Diet/Feeds Activity: No St Act, squeeze left hand regularly to promote maturation Wound/dressing care: Clean wound daily, Do not submerge incision, Keep wound clean and dry, OK to shower tomorrow Follow-up Appointments Attending Physician: Attending Physician: Luis Carlos Huggins MD Attending physician follow up timeframe: In 1-2 weeks at 0750 RPT #:[id number] END OF REPORT [facility] 2024-01-24 12:43:00 [id number] [place] [address] PATIENT NAME: JOSEPH ROWLEY ADMIT DATE: ACCOUNT NO: [id number] ROOM NO: AGE: 69 REPORT TYPE: eELECTROCARDIOGRAM REPORT SEX: F ADMITTING PHYSICIAN: ATTENDING PHYSICIAN:Luis Carlos Huggins MD Order: [id number] Test Reason : PREOP Test Date/Time Stamp: TueJan 24 2024 12:43:21 Blood Pressure : / mmHG Vent. Rate : 082 BPM Atrial Rate : 082 BPM P-R Int : 132 ms QRS Dur : 074 ms QT Int : 382 ms P-R-T Axes : 057 -20 074 degrees QTc Int : 446 ms Normal sinus rhythm Left axis deviation Borderline ECG PRE_OP Confirmed by NADEGE CHAPNI MD ([id number]) on 01/24/2024 1:05:27 PM Referred By: Luis Carlos Huggins Confirmed by:NADEGE CHAPIN MD at 1305 PATIENT NAME: JOSEPH ROWLEY [facility] 2023-11-16 08:59:11 Please review and advise on change of medication. ER MACHINE OPERATOR Bertha Delacruz RN [facility] 2023-11-07 15:36:58 Request for Pods was sent to Catherine (DME) please see next encounter. Kavitha Mullen MA 11/07/2023 3:37 PM ER MACHINE OPERATOR Kavitha Mullen MA [facility] 2023-10-25 18:53:04 Refill for freestyle lite strip was sent Please follow up with patient for update information regarding her PODs for insulin pump Alessandro Yeboah MD Division of Endocrinology and Metabolism [facility] 2023-10-25 11:55:55 IRVING-09/13/23 NOV-02/21/24 - continue CGM and current pump settings - POCT HEMOGLOBIN A1C TEST - insulin pump cart,cont inf,RF (OMNIPOD CLASSIC PODS, GEN 3,) Crtg; inject 1 Kit under the skin every 72 (seventy-two) hours. Dispense: 30 Each; Refill: 1 Pt requesting as back up to CGM. I am unable to fill due to DX being deleted. Please advise. Thank you Viridiana Hernandez RN ER MACHINE OPERATOR Viridiana Hernandez RN [facility] 2023-09-15 10:41:00 [facility] ([facility]) Operative Note - Full REPORT#:[id number] REPORT STATUS: Signed REPORT INITIALIZATION DATE:09/15/23 TIME: 104 PATIENT: JOSEPH ROWLEY UNIT #: [id number] ROOM/BED: : 57 AGE: 68 SEX: F ATTEND: Luis Carlos Huggins MD ADM AUTHOR: Luis Carlos Huggins MD REPT SERVICE DT/TIME: 09/15/23 1041 * ALL edits or amendments must be made on the electronic/computer document * Operative Report ORM Surgeries: Surgery Date and Time: 09/15/2023 0730 Primary Procedure: LLE ARTERIOGRAM, POSSIBLE ANGIOPLASTY, Start date: 09/15/23 Start time: 1100 Pre-procedure diagnosis: Atherosclerosis of ass[place] and gros ventre tribes arteries left leg with arterial occlusion and [place] tow ulcers Left leg Critical limb ischemia Post-procedure diagnosis: same Procedures performed: 1. Percutaneous ultrasound-guided active access right common femoral artery with images [place] record [id number], 2. Bilateral lower extremity arteriogram 50380 3. Left superficial femoral artery to popliteal artery 5 mm x 25 cm Viabahn stent graft and 6 mm X 40 mm Alluvia drug stent with 5 mm balloon angioplasty of the entire vessel extending to the popliteal artery 23745 4. Left posterior tibial artery angioplasty, 0.9 laser atherectomy with 2.0 mm balloon angioplasty and placement of 3.0 X 20 mm balloon expandable covered stent, Eddieysrus [id number] Technique/Procedure: The patient was brought into the op room and prepped and draped in usual sterile manner. Percutaneous ultrasound-guided active access was obtained to right common femoral artery to my catheter system and exchanged over a Glidewire to 6 [place] 10 cm sheath. An Omni Flush cath was placed in the abdominal aorta and a Glidewire was used to extend the catheter down to the left common femoral artery left extremity arteriogram was completed. The patient was heparinized with 7000 units of heparin. An advantage wire was advanced into the occluded superficial femoral artery and the sheath was exchanged to a 6 [place] 90 cm sheath and advanced through the superficial femoral artery occlusion. The distal occlusive calcified cap was then crossed with a Enriquez [...] Plantar artery occlusion was then crossed with a 014 wire and catheter. Distal angiography was completed to confirm true luminal flow to the plantar arch. The 2 mm [...] used to close right groin access without difficulty. Primary Surgeon: Dr. Luis Carlos Huggins Shirt Cleaner(s): none Anesthesia: general anesthesia Operative findings: Patent bilateral common femoral arteries to profunda femoris. [...] to the distal left foot and distal tibial arteries are not well visualized on retrograde angiography. Right posterior tibial artery is patent to the distal leg. Complications: none Estimated blood loss in ml's: none Specimens removed/altered: none Implant(s): stent at 1335 RPT #:[id number] END OF REPORT [facility] 2023-09-15 10:35:00 [facility] ([facility]) Brief Op Note REPORT#:[id number] REPORT STATUS: Signed REPORT INITIALIZATION DATE:09/15/23 TIME: 1034 PATIENT: JOSEPH ROWLEY UNIT #: [id number] ROOM/BED: : 57 AGE: 68 SEX: F ATTEND: Luis Carlos Huggins MD ADM AUTHOR: Luis Carlos Huggins MD REPT SERVICE DT/TIME: 09/15/23 1035 * ALL edits or amendments must be made on the electronic/computer document * Op/Inv Proc Note - Brief ORM Surgeries: Surgery Date and Time: 09/15/2023 0730 Primary Procedure: LLE ARTERIOGRAM, POSSIBLE ANGIOPLASTY, Pre-procedure diagnosis: Atherosclerosis of assinibo[place] and gros ventre tribes arteries left leg with arterial occlusion and heeland tow ulcers Left leg Critical limb ischemia Post-procedure diagnosis: same as pre procedure dx Procedures performed: 1. Percutaneous ultrasound-guided active access right common femoral artery with images maintained [place] record 16719, 2. Bilateral lower extremity arteriogram 92313 3. Left superficial femoral artery to popliteal artery 5 mm x 25 cm Viabahn stent graft and 6 mm X 40 mm Alluvia drug stent with 5 mm balloon angioplasty of the entire vessel extending to the popliteal artery 83825 4. Left posterior tibial artery angioplasty, 0.9 laser atherectomy with 2.0 mm balloon angioplasty and placement of 3.0 X 20 mm balloon expandable covered stent, Parysrus [id number] Primary Surgeon: Dr. Luis Carlos Huggins Shirt Cleaner(s): none Findings: Patent bilateral common femoral arteries to profunda femoris. [...] to the distal left foot and distal tibial arteries are not well visualized on retrograde angiography. Right posterior tibial artery is patent to the distal leg. Complications: none Estimated blood loss in ml's: none Specimens removed/altered: none at 1335 RPT #:[id number] END OF REPORT [facility] 2023-09-15 10:32:00 [facility] ([facility]) Brief Discharge Note w/Med Rec REPORT#:[id number] REPORT STATUS: Signed REPORT INITIALIZATION DATE:09/15/23 TIME: 1032 PATIENT: JOSEPH ROWLEY UNIT #: [id number] ROOM/BED: : 57 AGE: 68 SEX: F ATTEND: Luis Carlos Huggins MD ADM AUTHOR: Luis Carlos Huggins MD REPT SERVICE DT/TIME: 09/15/23 1032 * ALL edits or amendments must be made on the electronic/computer document * Med Rec Med Rec Discharge meds: Continue taking these medications: FAMOTIDINE (PEPCID) 40 MG TAB 40 MILLIGRAM [...] MILLIGRAM ORAL THREE TIMES A DAY. Objective Results Findings/Data: Laboratory Tests: 09/15 654 Chemistry Sodium (134 - 147 mEq/L) 133 [...] 10.5 mg/dL) 10.2 Brief Discharge Note w/Med Rec Problem List/A P: 1. PAD (peripheral artery disease) Discharge to: Home/Self Care Discharge diagnosis: Atherosclerosis of assinibo[place] and g[place] tribes arteries left leg with arterial occlusion and heeland tow ulcers Left leg Critical limb ischemia Pt. condition on discharge: stable Additional Discharge Routines: Attending Follow-Up, Wound/Dressing Care Diet: Resume Home Diet/Feeds Activity: No Strenuous Activity Wound/dressing care: Clean wound daily, Do not submerge incision, Keep wound clean and dry, OK to shower tomorrow Follow-up Appointments Attending Physician: Attending Physician: Luis Carlos Huggins MD Attending physician follow up timeframe: In 1-2 weeks at 1033 RPT #:[id number] END OF REPORT [facility] 2023-09-09 15:54:00 [id number] [place] [address] PATIENT NAME: JOSEPH ROWLEY ADMIT DATE: 07/12/23 ACCOUNT NO: [id number] ROOM NO: G.3306 AGE: 68 REPORT TYPE: OPERATIVE REPORT SEX: F ADMITTING PHYSICIAN:Tanvir Prasad MD ATTENDING PHYSICIAN:Tanvir Prasad MD OPERATION DATE: 07/21/2023 PREOPERATIVE DIAGNOSES: Coronary artery disease, cardiomyopathy. POSTOPERATIVE DIAGNOSES: Coronary artery disease, cardiomyopathy. PROCEDURE: Coronary artery bypass grafting. SURGEON: Miguel Lyon MD. PHOTOGRAPHIC PLATEMAKER SURGEON: Greyson Bowen MD. ANESTHESIA: PROCEDURE IN DETAIL: Please refer to the detailed operative note by Dr. Lyon. I assisted Dr. Lyon during all the critical portions of surgery including cardiopulmonary bypass, coronary anastomosis. A second surgeon was needed to complete this complex cardiac procedure safely. Dictated By: Greyson Bowen MD Date Dictated: 09/09/2023 15:54:33 Date Transcribed: 09/09/2023 16:02:23 DIO/WINSTON Receipt ID: [id number] Authenticated by Greyson Bowen MD, FACS On 09/13/2023 10:48:07 AM at 1048 PATIENT NAME: JOSEPH ROWLEY [facility] 2023-09-02 08:06:00 [facility] ([facility]) Discharge Summary REPORT#:[id number] REPORT STATUS: Signed REPORT INITIALIZATION DATE:09/02/23 TIME: 08 PATIENT: JOSEPH ROWLEY UNIT #: [id number] ROOM/BED: [place] [address] : 57 AGE: 68 SEX: F ATTEND: Donna Tam DO ADM AUTHOR: Donna Tam DO REPT SERVICE DT/TIME: 09/02/23 0806 * ALL edits or amendments must be made on the electronic/computer document * PCP PCP Discharge to: home General Information Date of admission: Observation Start Date: 09/01/23 Date of admission: 09/01/23 Discharge date: 09/02/23 Discharge diagnosis: 1. Bilateral extremity critical limb ischemia with nonhealing wounds 2. Aortic atherosclerosis with bilateral iliac artery occlusions 3. 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 Type I diabetes mellitus with hyperglycemia 5. HTN 6. ESRD on HD Hospital course: Plan: Pt is s/p bilateral abdominal gram and peripheral angio with stents to B common ilac artery, B external iliac artery stents, R superficial femoral artery to popliteal artery stent graft, R post tibial artery angioplasty. - continue Plavix post procedure - follow up wound care as outpatient ESRD- pt to get HD tonight prior to going home to [place] tomorrow DM1- pt will be allowed to use her continuous glucose monitor and insulin pump once it is proven to be functional. Give 1 time dose of Insulin lispro 10 units x 1 now. HTN- resume home meds 09/02/23 Pt wishes to go home early today. Pt received HD last evening. Cleared by Dr. Huggins for d/c today with plans on more procedures next week. Med Rec PCP PCP: PCP: Benito Nugent MD Med Rec Discharge meds: Continue taking these medications: FAMOTIDINE (PEPCID) 40 MG TAB 40 MILLIGRAM [...] BEDTIME. Comments: PATIENT USES VYZULTA Discharge Instructions PCP PCP: PCP: Benito Nugent MD )( Discharge to: Home/Self Care Discharge Instructions Additional Discharge Routines: Probate Lawyer Follow-Up )( Diet: Diabetic )( Activity: As Tolerated Prescriptions: none Follow-up Appointments Consulting provider 1: Provider 1: Luis Carlos Huggins MD Specialty: Vascular Surgery Consult follow up timeframe: In 1-2 weeks Special instructions: Follow up next week Quality: Discharge Advanced Care Plan 65 or Older Discussed with: patient (full code) Current Medications Current medication review: I attest that the foregoing medication list in the medical record is true, accurate, and complete to the best of my knowledge. BMI Screening > 25 or < 18.5 Patient's BMI: Current BMI: 29.2 BMI status/follow-up: not eligible for plan (phys disability) Tobacco Use/Counseling Tobacco use/counseling: non tobacco user, no counseling needed HTN Screening/Follow-up Last documented vitals: Last Documented: Result Date Time Pulse Ox 99 09/02 741 B/P 103/62 09/02 741 B/P Mean 75.2 09/02 741 O2 Delivery Room air 09/02 741 Temp 98.1 09/02 741 Pulse 82 09/02 741 Resp 18 09/02 741 O2 Flow Rate 8 09/01 1215 B/P assess/follow-up: normal B/P, no f/u req at 0808 [facility] #:[id number] END OF REPORT [facility] 2023-09-02 07:57:00 [facility] Nephrology Consultation Note REPORT#:[id number] REPORT STATUS: Signed REPORT INITIALIZATION DATE:09/02/23 TIME: 756 PATIENT: JOSEPH ROWLEY UNIT #: [id number] ROOM/BED: [id number] : 57 AGE: 68 SEX: F ATTEND: Donna Tam DO ADM AUTHOR: Winnie Noyola MD REPT SERVICE DT/TIME: 09/02/23756 * ALL edits or amendments must be made on the electronic/computer document * History of Present Illness Reason for consult: ESRD HPI: Patient is a 68-year-old female with past medical history of ESRD on hemodialysis Tuesday, diabetes type 1 since she was 6 years old, hypotension was admitted after peripheral angiogram. Had hemodialysis yesterday. No complaint. Eager to go home. History - Adult longitudinal Additional medical history: type 1 diabetes from the age of 46 years old, end-stage renal disease, on dialysis since July 2022, hypertension Family history: Denies: CAD < 40 yrs old. Additional family history: reviewed and is noncontributory. Alcohol use: Denies EtOH use Drug use: Denies recreational drugs Smoking status for patients 13 years old or older: Former Smoker Packs per day: 1 Years smoked: 10 Pack years: 10 Allergies: Coded Allergies: sulfamethoxazole (From BACTRIM) (Severe, ANAPHYLAXIS 08/30/23) trimethoprim (From BACTRIM) (Severe, ANAPHYLAXIS 08/30/23) codeine (Mild, NAUSEA 08/30/23) Review of Systems Additional notes: No new complaint. Objective General VS/I O: Vital Signs: Date Time Temp Pulse Resp B/P B/P Pulse O2 O2 Flow FiO2 Mean Ox Delivery Rate 09/02 0741 98.1 82 18 103/62 75.2 99 Room air 09/02 0351 98.2 81 14 103/55 71.2 97 Room air 09/02 0208 81 96/55 68.7 09/02 0003 97.9 82 15 81/43 55.3 96 Room air 09/01 2021 97.5 93 18 103/63 76.4 97 Room air 09/01 1825 97.9 86 19 102/47 99 Room air 09/01 1508 97.7 80 20 119/56 99 Room air 09/01 1445 80 15 122/58 100 09/01 1430 80 16 117/55 100 09/01 1415 80 15 115/53 100 09/01 1400 78 14 109/54 100 09/01 1345 78 14 111/52 100 09/01 1330 78 14 111/53 100 09/01 1315 78 14 112/54 100 09/01 1300 78 14 118/58 100 09/01 1248 Simple mask 09/01 1245 78 14 116/57 100 Room air 09/01 1235 74 14 113/56 100 09/01 1230 76 14 110/54 100 09/01 1225 72 14 101/52 100 09/01 1220 68 14 90/43 100 09/01 1215 97.3 66 14 91/42 100 Open 8 mask/diffuser 24 hour I O ending at 0700: 09/02 0700 09/01 1900 Intake Total 120 Output Total 1300 Balance -1180 Intake, Oral 120 Output, 1300 Hemodialysis PATIENT WEIGHT: Weight (lb): 130 Weight (oz): 4.37 Weight (kg): 59.091 Medications: Active Meds + DC'd Last 24 Hrs Clopidogrel Bisulfate (Plavix) 75 MG DAILY PO Metoprolol [...] 250 ML ASDIR PRN IV (DC) Physical Exam General appearance: alert, awake, oriented, no acute distress Head/eyes: atraumatic, normocephalic, PERRLA Neck: no JVD, no lymphadenopathy Cardiovascular: normal heart sounds, regular rate and rhythm, no murmur, no rub Respiratory: aerating well, clear to auscultation, no distress Abdomen: non-tender, normal bowel sounds, soft, no rebound Genitourinary: no bladder distention, no flank pain, no urinary catheter Extremities: no edema Neuro/DEMURRAGE AGENT: alert, oriented X 3, CN II-XII intact, normal speech Results Findings/Data: Laboratory Tests 09/021 2025 1709 1407 1218 Chemistry Sodium (134 [...] - 32.0 %) 9.8 L 3.4 L [place] % (Auto) (4.8 - 9.0 %) 14.2 H 0.7 L Eos % (Auto) (0.3 - 3.7 %) 0.6 0.0 L Baso % (Auto) (0.0 - 2.0 %) 0.3 0.1 Neut # (Auto) (2.0 - 7.6 x10 3/uL) 7.90 H 7.78 H Lymph # (Auto) (1.0 - 3.8 x10 3/uL) 1.04 0.28 L [place] # (Auto) (0.1 - 0.8 x10 3/uL) [...] Diagnosis, Assessment Plan Free Text DxA P Notes Free text DxA P notes: 1. ESRD patient had dialysis yesterday. Continue with Tuesday dialysis schedule as an outpatient. No acute indication for hemodialysis today. 2. Diabetes type 1 and needs better sugar control. Follow-up with PCP 3. Peripheral arterial disease status post angiogram. Vascular surgery follow- up 4. Hypotension on midodrine 5. Anemia of CKD start MATT if hemoglobin less than 10 Discussed with at bedside Discussed with primary attending Zonia villeda DC from nephrology Thank you for the consult at 0958 RPT #:[id number] END OF REPORT [facility] 2023-09-01 14:15:00 [facility] ([facility]) Hospitalist History Physical REPORT#:[id number] REPORT STATUS: Signed REPORT INITIALIZATION DATE:09/01/23 TIME: 1414 PATIENT: JOSEPH ROWLEY UNIT #: [id number] ROOM/BED: [place] [id number] : 57 AGE: 68 SEX: F ATTEND: Donna Tam DO ADM AUTHOR: Donna Tam DO REPT SERVICE DT/TIME: 09/01/23 1415 * ALL edits or amendments must be made on the electronic/computer document * History of Present Illness HPI Chief complaint: limb ischemia PCP: PCP: Benito Nugent MD HPI: MS. Rowley is a 68 yo female with [...] pump while inpt. She is otherwise without complaints. Hx Obtained From Patient, Daughter, Prior medical records History Past Medical Surgical Hx Additional medical history: type 1 diabetes from the age of 46 years old, end-stage renal disease, on dialysis since July 2022, hypertension Family History Family history: Denies: CAD < 40 yrs old. Additional family history: reviewed and is noncontributory. Social History Alcohol use: Denies EtOH use Drug use: Denies recreational drugs Smoking status for patients 13 years old or older: Former Smoker Packs per day: 1 Years smoked: 10 Pack years: 10 Medication/Allergy-Vaccine Hx Allergies: Coded Allergies: sulfamethoxazole (From BACTRIM) (Severe, ANAPHYLAXIS 08/30/23) trimethoprim (From BACTRIM) (Severe, ANAPHYLAXIS 08/30/23) codeine (Mild, NAUSEA 08/30/23) Review of Systems Skin: Reports: other (non healing B foot wounds). All systems rev neg: except as noted OBJECTIVE VS/I O: Vital Signs Date Temp Pulse Resp B/P B/P Mean Pulse Ox FiO2 09/01 97.0-97.3 66-83 14- 91-139/42-60 97-100 Last Documented: Result Date Time [...] and BMI Weight (kg): 59.091 BMI: 29.2 Medications: Active Meds + DC'd Last 24 Hrs Insulin Human Lispro (HUMALOG) 10 UNIT NOW [...] pleasant, conversational, mental status normal, no respiratory distress Head/Eyes: atraumatic, EOMI, normocephalic, PERRLA ENT: moist mucosal membranes, normal ear left, normal ear right, normal nose Neck: no JVD Cardiovascular: normal heart sounds, regular rate rhythm Respiratory: aerating well, clear to auscultation, symmetric expansion, no distress Abdomen: non-tender, normal bowel sounds, soft, no distention Genitourinary: no bladder distention Extremities: no edema Musculoskeletal: bilateral lower extremities have erythematous skin from ankle to foot with wounds Neuro/DEMURRAGE AGENT: alert, oriented X 3, normal speech Skin: as above Lymphatics: neck normal Psychiatry: normal affect, normal judgment/insight, normal mood Results Findings/Data: Laboratory Tests: 09/01 09/01 0754 0768 Blood Gas ABG Hematocrit (33.0 - 45.0 [...] - 10.5 mg/dL) 9.5 Laboratory Tests 09/01/23 0715: [Embedded Image Not Available] Diagnosis, Assessment Plan Free Text A P: 1. Bilateral extremity critical limb ischemia with nonhealing wounds 2. Aortic atherosclerosis with bilateral iliac artery occlusions 3. 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 Type I diabetes mellitus with hyperglycemia 5. HTN 6. ESRD on HD Plan: Pt is s/p bilateral abdominal gram and peripheral angio with stents to B common ilac artery, B external iliac artery stents, R superficial femoral artery to popliteal artery stent graft, R post tibial artery angioplasty. - continue Plavix post procedure - follow up wound care as outpatient ESRD- pt to get HD tonight prior to going home to [place] tomorrow DM1- pt will be allowed to use her continuous glucose monitor and insulin pump once it is proven to be functional. Give 1 time dose of Insulin lispro 10 units x 1 now. HTN- resume home meds at 1432 RPT #:[id number] END OF REPORT [facility] 2023-09-01 13:08:00 [facility] ([facility]) Operative Note - Full REPORT#:[id number] REPORT STATUS: Signed REPORT INITIALIZATION DATE:09/01/23 TIME: 1307 PATIENT: JOSEPH ROWLEY UNIT #: [id number] ROOM/BED: : 57 AGE: 68 SEX: F ATTEND: Luis Carlos Huggins MD ADM AUTHOR: Luis Carlos Huggins MD REPT SERVICE DT/TIME: 09/01/23 1308 * ALL edits or amendments must be made on the electronic/computer document * Operative Report ORM Surgeries: Surgery Date and Time: 09/01/2023 0730 Proposed Primary Procedure: RLE ARTERIOGRAM, POSSIBLE ANGIOPLASTY, Start date: 09/01/23 Start time: 829 Pre-procedure diagnosis: 1. Bilateral extremity critical limb ischemia with nonhealing wounds 2. Aortic atherosclerosis with bilateral iliac artery occlusions 3. Atherosclerosis of bilateral lower extremities with bilateral toe gangrene and right heel gangrene and occlusion of bilateral superficial femoral arteries Post-procedure diagnosis: same Procedures performed: 1. Percutaneous ultrasound-guided active access left common femoral artery [place] 11836, percutaneous ultrasound-guided active access right popliteal artery with images maintained for record 763 97 59, percutaneous also guided active access right posterior tibial artery with images maintained for record 7693 7 59 2. Abdominal gram 86698 3. Bilateral lower extremity arteriogram 56574 4. Bilateral common iliac artery stents, right 7 mm x 59 mm VBX balloon expandable stent, left 8 mm x 59 mm VBX balloon expandable stent [id number] R, 58418- L-50 5. Bilateral external iliac artery stents, right 6 mm x 7.5 cm Viabahn and 6 mm x 5 cm Viabahn stent grafts, left 7 mm x 79 mm VBX balloon expandable stent [id number] R, 12240-Z-[id number] 6. Right superficial femoral artery to popliteal artery 5 mm x 15 cm Viabahn stent graft with 5 mm drug-coated balloon angioplasty of the entire vessel extending to the popliteal artery 66911 7. Right posterior tibial artery angioplasty, 2.5 mm balloon 04549 Technique/Procedure: The patient was brought into the operating room prepped and draped in usual sterile manner. Percutaneous also guided active access was obtained to left common femoral artery to my catheter system and the left external iliac artery occlusion was crossed. A Glidewire was placed and a 7 Kitt[place] 25 cm sheath was used to cross [...] iliac artery near occlusion and the catheter was exchanged to a Enriquez cross catheter and the [...] stent with good result. The sheath was pulled back in the left common iliac artery occlusions were treated with a 8 mm x 59 mm VBX stent. Finally the sheath was pulled back and a left external iliac artery occlusion was treated with a 8 mm x 79 mm VBX stent. This yielded good result with good flow through the abdominal aorta and iliac arteries. The sheath was then exchanged to a 7 Kitt[place] 90 cm sheath advanced to the ostium [...] active access was obtained to the right posterior tibial artery at the malleolus with a micropuncture system and a Glidewire was extended retrograde through the posterior tibial artery into the 7 Kittitian sheath and body floss was again reobtained and the sheath was then advanced through the occlusion into the popliteal artery distally. The wire was exchanged to a 0.018 wire and a 5 mm x 15 cm [...] with a 2.5 mm balloon. All micropuncture axes were removed. Good hemostasis was noted. Good flow was noted through all vessels. The sheath was then pulled back to the left external iliac artery left extremity arteriogram was completed. The patient will have planned return to the operating for treatment of her left superficial femoral artery occlusion for critical limb ischemia. Angio-Seal device was then used to close left groin access without difficulty. The patient taught the procedure well. There was no complications. The patient was stable and discharged to PACU. Primary Surgeon: Dr. Luis Carlos Huggins Shirt Cleaner(s): none Anesthesia: general anesthesia Operative findings: Aortogram demonstrates patent abdominal order with antegrade flow to the celiac trunk, splenic artery, common hepatic artery and gastroduodenal arteries. The superior mesenteric arteries. Antegrade flow. The inferior mesenteric artery is difficult to visualize but appears to be patent. A large meandering artery is noted however in the abdomen and large lumbar shunt noted. There is a aortic stenosis to approximately 30% below the renal arteries. There is bilateral common iliac stenosis with 80% right common iliac stenosis and left common iliac ostial occlusion. Bilateral internal iliac arteries are patent. Bilateral external iliac arteries are occluded. There is reconstitution to bilateral common femoral arteries to profunda femoris. Bilateral superficial femorals are occluded. There is reconstitution of bilateral popliteal arteries [...] leg. There is severe microvascular disease extending to the distal left foot and distal tibial arteries are not well visualized on retrograde angiography. Complications: none Estimated blood loss in ml's: none Specimens removed/altered: none Implant(s): stents at 1317 RPT #:[id number] END OF REPORT [facility] 2023-09-01 12:55:00 [facility] ([facility]) Brief Op Note REPORT#:[id number] REPORT STATUS: Signed REPORT INITIALIZATION DATE:09/01/23 TIME: 1254 PATIENT: JOSEPH ROWLEY UNIT #: [id number] ROOM/BED: : 57 AGE: 68 SEX: F ATTEND: Luis Carlos Huggins MD ADM AUTHOR: Luis Carlos Huggins MD REPT SERVICE DT/TIME: 09/01/23 1255 * ALL edits or amendments must be made on the electronic/computer document * Op/Inv Proc Note - Brief ORM Surgeries: Surgery Date and Time: 09/01/2023 0730 Proposed Primary Procedure: RLE ARTERIOGRAM, POSSIBLE ANGIOPLASTY, Pre-procedure diagnosis: 1. Bilateral extremity critical limb ischemia with nonhealing wounds 2. Aortic atherosclerosis with bilateral iliac artery occlusions 3. Atherosclerosis of bilateral lower extremities with bilateral toe gangrene and right heel gangrene and occlusion of bilateral superficial femoral arteries Post-procedure diagnosis: same as pre procedure dx Procedures performed: 1. Percutaneous ultrasound-guided active access left common femoral artery with images maintained for record 13783, percutaneous ultrasound-guided active access right popliteal artery with images maintained for record 763 97 59, percutaneous also guided active access right posterior tibial artery with images maintained for record 7693 7 59 2. Abdominal gram 62816 3. Bilateral lower extremity arteriogram 84799 4. Bilateral common iliac artery stents, right 7 mm x 59 mm VBX balloon expandable stent, left 8 mm x 59 mm VBX balloon expandable stent [id number] R, 72004- L-50 5. Bilateral external iliac artery stents, right 6 mm x 7.5 cm Viabahn and 6 mm x 5 cm Viabahn stent grafts, left 7 mm x 79 mm VBX balloon expandable stent [id number] R, 42410-G-14 6. Right superficial femoral artery to popliteal artery 5 mm x 15 cm Viabahn stent graft with 5 mm drug-coated balloon angioplasty of the entire vessel extending to the popliteal artery 30271 7. Right posterior tibial artery angioplasty, 2.5 mm balloon [id number] Primary Surgeon: Dr. Luis Carlos Huggins Shirt Cleaner(s): none Anesthesia: general anesthesia Findings: Aortogram demonstrates patent abdominal order with antegrade flow to the celiac trunk, splenic artery, common hepatic artery and gastroduodenal arteries. The superior mesenteric arteries. Antegrade flow. The inferior mesenteric artery is difficult to visualize but appears to be patent. A large meandering artery is noted however in the abdomen and large lumbar shunt noted. There is a aortic stenosis to approximately 30% below the renal arteries. There is bilateral common iliac stenosis with 80% right common iliac stenosis and left common iliac ostial occlusion. Bilateral internal iliac arteries are patent. Bilateral external iliac arteries are occluded. There is reconstitution to bilateral common femoral arteries to profunda femoris. Bilateral superficial femorals are occluded. There is reconstitution of bilateral popliteal arteries [...] leg. There is severe microvascular disease extending to the distal left foot and distal tibial arteries are not well visualized on retrograde angiography. Complications: none Estimated blood loss in ml's: none Specimens removed/altered: none at 1317 RPT #[id number] END OF REPORT [facility] 2023-07-26 11:32:00 [facility] ([facility] Hospitalist Discharge Summary REPORT#:[id number] REPORT STATUS: Signed DATE:07/26/23 TIME: 1132 PATIENT: JOSEPH ROWLEY UNIT #: [id number] ROOM/BED: [place] [id number] : 57 AGE: 68 SEX: F ATTEND: Tanvir Prasad MD ADM AUTHOR: Violetta Davis MD * ALL edits or amendments must be made on the electronic/computer document * General Information Date of admission: Observation Start Date: Date of admission: 07/12/23 Discharge date: 07/26/23 Admission diagnosis: Suspected urinary tract infection Severe three-vessel CAD Severe peripheral vascular disease Diabetes mellitus End-stage renal failure on hemodialysis Nonhealing bilateral heel ulcerations Hypertension Hyperlipidemia CHF Mitral valve regurgitation Discharge diagnosis: Suspected urinary tract infection Severe three-vessel CAD Severe peripheral vascular disease Diabetes mellitus End-stage renal failure on hemodialysis Nonhealing bilateral heel ulcerations Hypertension Hyperlipidemia CHF Mitral valve regurgitation Hospital course: Suspected urinary tract infection Severe three-vessel CAD Severe peripheral vascular disease Diabetes mellitus End-stage renal failure on hemodialysis Nonhealing bilateral heel ulcerations Hypertension Hyperlipidemia CHF Mitral valve regurgitation Plan and recommendations Patient admitted into medicine Vital signs every 4 Patient Antiplatelets and statin per cardiology Seen by vascular surgery" CT surgery. Nephrology for hemodialysis. Will do basic lab work include CBC BMP now. Patient is not having significant hypoxia at this time DVT prophylaxis Restart home medications Discussed management plan in detail with patient's family. 07/13/[address] surgery and vascular surgery plans Hemodialysis was done yesterday Hemodialysis per nephrology Monitor renal function Blood sugar control with insulin pump. 07/14/2023 Fever spike last night blood cultures on empiric antibiotics for possible UTI Antibiotics changed Follow-up on cultures Follow-up on cardiothoracic surgery and oncology recommendations plan to have discussion tomorrow Blood sugars controlled Lab work otherwise stable DVT prophylaxis Hemodialysis per nephrology 07/15- take over care from [...] to heels, increase midodrine to 10 mg 3 times daily in view of persistent hypotension. 07/18 [...] treatment 07/21- she is seen in the cathode washer --PCI /impella -- afternoon -- lab am [...] in 2 weeks Consultants: cardiology, cardiovascular surgery, critical/broommaker, nephrology Free Text DxA P Notes Free text DxA P notes: 68-year-old female with a past medical history of type 1 diabetes from the age of 46 years old, end-stage renal disease, on dialysis since July 2022, hypertension who presented to her research epidemiologist for evaluation of bilateral nonhealing ulcerations of her bilateral heels for the past 3 months, and shortness of breath with exertion. Left heart catheterization showed significant for severe three-vessel coronary artery disease with severe bilateral occluded SFAs of the lower extremity. Issues as below. Suspected urinary tract infection Severe three-vessel CAD Severe peripheral vascular disease Diabetes mellitus End-stage renal failure on hemodialysis Nonhealing bilateral heel ulcerations Hypertension Hyperlipidemia CHF Mitral valve regurgitation Plan and recommendations Patient admitted into medicine Vital signs every 4 Patient Antiplatelets and statin per cardiology Seen by vascular surgery" CT surgery. Nephrology for hemodialysis. Will do basic lab work include CBC BMP now. Patient is not having significant hypoxia at this time DVT prophylaxis Restart home medications Discussed management plan in detail with patient's family. 07/13/[address] surgery and vascular surgery plans Hemodialysis was done yesterday Hemodialysis per nephrology Monitor renal function Blood sugar control with insulin pump. 07/14/2023 Fever spike last night blood cultures on empiric antibiotics for possible UTI Antibiotics changed Follow-up on cultures Follow-up on cardiothoracic surgery and oncology recommendations plan to have discussion tomorrow Blood sugars controlled Lab work otherwise stable DVT prophylaxis Hemodialysis per nephrology 07/15- take over care from [...] to heels, increase midodrine to 10 mg 3 times daily in view of persistent hypotension. 07/18 [...] treatment 07/21- she is seen in the cathode washer --PCI /impella -- afternoon -- lab am [...] follow-up. Continue wound care. Med Rec Med Rec Discharge meds: Stop taking the following medications: BUMETANIDE (BUMEX) 2 MG TAB 2 MILLIGRAM ORAL TWICE DAILY. MIDODRINE (PROAMATINE) 5 MG TAB 5 MILLIGRAM ORAL THREE TIMES A DAY. Continue taking these medications: FAMOTIDINE (PEPCID) 40 MG TAB 40 MILLIGRAM [...] been renewed Start taking the following new medications: TICAGRELOR (BRILINTA) 90 MG TAB 90 MILLIGRAM ORAL [...] ORAL DAILY. Qty = 30 No Refills Objective VS/I O Last Documented: Result Date Time Temp 36.6 07/26 0730 Pulse Ox 93 07/26 0500 B/P 135/63 07/26 0500 B/P Mean 90 07/26 0500 Pulse 74 07/26 0500 Resp 18 07/26 0500 O2 Delivery Room air 07/25 2000 O2 Flow Rate 2 07/23 0000 FiO2 36 07/21 2000 24 hour I O ending at 0700: 07/26 0700 07/25 1900 Intake Total Output Total 3400 Balance -3400 Output, 3400 Hemodialysis General appearance: alert, awake, oriented, no acute distress Head/Eyes: atraumatic, normal conjunctiva/sclera, normal eyelids/periorb. Neck: full range of motion Cardiovascular: normal capillary refill, normal heart sounds, regular rate rhythm Respiratory: aerating well, clear to auscultation, symmetric expansion, no distress Abdomen: non-tender, normal bowel sounds, soft, no distention Extremities: no edema Neuro/DEMURRAGE AGENT: alert, oriented X 3 Ulcer: Type/cause: diabetic (right heel ulcer), arterial Location: foot, heel Laterality: bilateral Psychiatry: depressed Results Findings/Data: Laboratory Tests: 07/26 0255 Chemistry Sodium (134 - [...] (Auto) (14.0 - 32.0 %) 8.6 L [place] % (Auto) (4.8 - 9.0 %) 13.6 H Eos % (Auto) (0.3 - 3.7 %) 0.9 Baso % (Auto) (0.0 - 2.0 %) 0.2 Neut # (Auto) (2.0 - 7.6 x10 3/uL) 9.86 H Lymph # (Auto) (1.0 - 3.8 x10 3/uL) 1.11 [place] # (Auto) (0.1 - 0.8 x10 3/uL) [...] - 0.1 x10 3/uL) 0.03 Discharge Instructions PCP Discharge to: Home Health [facility] Additional Discharge Routines: PCP Follow-Up, Probate Lawyer Follow-Up Diet: Diabetic, Cardiac Activity: As Tolerated Follow-up Appointments PCP follow-up: PCP: Benito Nugent MD PCP follow up timeframe: In 1-2 weeks Special instructions: CALL TO SCHEDULE APPOINTMENT Consulting provider 1: Provider 1: Luis Carlos Huggins MD Specialty: Vascular Surgery Consult follow up timeframe: In 1-2 weeks Special instructions: CALL TO SCHEDULE APPOINTMENT at 1826 RPT #:[id number] END OF REPORT [facility] 2023-07-26 10:45:00 [facility] Nephrology Progress Note REPORT#:[id number] REPORT STATUS: Signed DATE:07/26/23 TIME: 1045 PATIENT: JOSEPH ROWLEY UNIT #: [id number] ROOM/BED: [place] [address] : 57 AGE: 68 SEX: F ATTEND: Tanvir Prasad MD ADM AUTHOR: Winnie Noyola MD * ALL edits or amendments must be made on the electronic/computer document * Subjective Chief complaint: follow up of ESRD Comments: Doing well. Objective General VS/I O: Vital Signs: Date Time Temp Pulse Resp B/P B/P Pulse O2 O2 Flow FiO2 Mean Ox Delivery Rate 07/26 0730 97.8 07/26 0500 74 18 135/63 90 93 07/26 0400 75 15 126/62 89 91 07/26 0300 73 16 139/60 87 100 07/26 0200 72 11 132/63 90 95 / 0100 72 23 126/61 88 96 / 0000 65 19 118/58 83 95 /11 2300 77 22 131/81 101 95 07/25 2212 74 26 128/77 97 97 / 2100 70 21 120/56 81 93 / 2045 64 16 113/55 79 92 /2029 68 23 125/62 88 95 07/25 2015 68 23 126/60 86 96 07/25 2000 98.1 Room air 07/25 2000 70 25 118/58 81 95 07/25 1945 69 20 110/57 78 96 / 1930 69 19 110/57 80 95 07/25 1915 67 15 111/58 82 95 07/25 1900 68 21 114/60 82 93 / 1800 64 16 113/56 81 94 / 1704 74 17 129/69 93 95 / 1600 77 19 139/65 93 97 / 1530 78 28 141/63 90 98 / 1501 73 31 126/59 85 96 / 1400 83 19 135/61 88 98 / 1300 79 27 138/70 97 98 / 1200 80 21 134/56 88 100 /11 1100 79 18 135/75 91 99 24 hour I O ending at 0700: 07/26 0700 07/25 1900 Intake Total Output Total 3400 Balance -3400 Output, 3400 Hemodialysis PATIENT WEIGHT: Weight (lb): 156 Weight (oz): 15.51 Weight (kg): 71.200 Medications Active Meds + DC'd Last 24 Hrs Midodrine (PROAMATINE) 2.5 MG 0800,1200,1600 PO Midodrine (PROAMATINE) [...] 0.9%) 250 ML ASDIR PRN IV Physical Exam General appearance: alert, awake, oriented Head/eyes: atraumatic, normocephalic, PERRLA ENT: moist mucous membranes Neck: no JVD, no lymphadenopathy, no masses or swelling Cardiovascular: normal heart sounds, regular rate and rhythm, no murmur, no rub Respiratory: aerating well, clear to auscultation, normal breath sounds, no distress Abdomen: non-tender, normal bowel sounds, soft, no rebound Genitourinary: no bladder distention, no flank pain, no urinary catheter Extremities: no edema, no gangrene Neuro/DEMURRAGE AGENT: alert, oriented X 3, CN II-XII intact, normal speech Ulcer: Type/cause: diabetic (right heel ulcer), arterial Location: foot, heel Laterality: bilateral Results Findings/Data: Laboratory Tests 07/26 255 Chemistry Sodium (134 - [...] (Auto) (14.0 - 32.0 %) 8.6 L [place] % (Auto) (4.8 - 9.0 %) 13.6 H Eos % (Auto) (0.3 - 3.7 %) 0.9 Baso % (Auto) (0.0 - 2.0 %) 0.2 Neut # (Auto) (2.0 - 7.6 x10 3/uL) 9.86 H Lymph # (Auto) (1.0 - 3.8 x10 3/uL) 1.11 [place] # (Auto) (0.1 - 0.8 x10 3/uL) [...] (0.0 - 0.1 x10 3/uL) 0.03 Radiology data: Recent Impressions: ULTRASOUND - DUP VEIN UNI/LTD 07/25 141 Report Impression - Status: SIGNED Entered: 07/25/2023 1426 IMPRESSION: 1. Superficial venous thrombosis in the right basilic vein. 2. No evidence of deep venous thrombosis in the right upper extremity. The right subclavian vein is unable to be evaluated due to overlying bandaging. Impression By: Lamar - Marco Antonio Jenkins M.D. Diagnosis, Assessment Plan Free Text A P: 1. ESRD continue with dialysis Tuesday. 2. Hypotension [...] Discussed with at bedside at 0813 RPT #:[id number] END OF REPORT [facility] 2023-07-26 09:26:00 [facility] Cardiology Progress Note REPORT#:[id number] REPORT STATUS: Signed DATE:07/26/23 TIME: 925 PATIENT: JOSEPH ROWLEY UNIT #: [id number] [place] [facility] [place] AGE: 68 SEX: F ATTEND: Tanvir Prasad MD ADM AUTHOR: Yue Barragan * ALL edits or amendments must be made on the electronic/computer document * Subjective Patient reports: No: complaints, abdominal pain, chest pain, confused, cough, dizziness, fatigue, fever, headache, nausea, palpitations, shortness of breath, swelling. Review of Systems Respiratory: Denies: SOB. Cardiovascular: Denies: chest pain, edema, orthopnea, palpitations. Objective General VS/I O: 24 hour I O ending at 0700: 07/26 0700 07/25 1900 Intake Total Output Total 3400 Balance -3400 Output, 3400 Hemodialysis Vital Signs Date Temp Pulse Resp B/P B/P Mean Pulse Ox FiO2 07/25-07/26 36.4-36.7 64-83 11-31 110-147/55-81 78-101 91-100 PATIENT WEIGHT: Weight (lb): 156 Weight (oz): 15.51 Weight (kg): 71.200 Medications: Active Meds + DC'd Last 24 Hrs Midodrine (PROAMATINE) 2.5 MG 0800,1200,1600 PO (UNV) Midodrine [...] 0.9%) 250 ML ASDIR PRN IV Physical Exam General appearance: alert, awake Neck: non-tender, no JVD Cardiovascular: CV assessment: regular rate and rhythm Murmur assessment: heart murmur Respiratory: on oxygen, no distress Abdomen: soft, non-tender, normal bowel sounds, no distention Genitourinary: no flank pain, no urinary catheter Upper extremity: UE assessment: edema (RUE) Lower extremity: LE assessment: abnormal pedal pulse, abnormal peripheral pulse Musculoskeletal: normal inspection Neuro/DEMURRAGE AGENT: alert, oriented X 3, normal speech Skin: right heel ulcer Ulcer: Type/cause: diabetic (right heel ulcer), arterial Location: foot, heel Laterality: bilateral Psychiatry: normal affect, normal mood Results Findings/Data: Laboratory Tests 07/26 255 Chemistry Sodium (134 - [...] (Auto) (14.0 - 32.0 %) 8.6 L [place] % (Auto) (4.8 - 9.0 %) 13.6 H Eos % (Auto) (0.3 - 3.7 %) 0.9 Baso % (Auto) (0.0 - 2.0 %) 0.2 Neut # (Auto) (2.0 - 7.6 x10 3/uL) 9.86 H Lymph # (Auto) (1.0 - 3.8 x10 3/uL) 1.11 [place] # (Auto) (0.1 - 0.8 x10 3/uL) [...] Magnesium (1.6 - 2.6 mg/dL) 2.08 Radiology data: Recent Impressions: ULTRASOUND - DUP VEIN UNI/LTD 07/25 141 Report Impression - Status: SIGNED Entered: 07/25/2023 0316 IMPRESSION: 1. Superficial venous thrombosis in the right basilic vein. 2. No evidence of deep venous thrombosis in the right upper extremity. The right subclavian vein is unable to be evaluated due to overlying bandaging. Impression By: [email or web address] - Marco Antonio Jenkins M.D. Results: labs reviewed, vital signs reviewed, rhythm personally rev'd Telemetry Interpretation: sinus rhythm Diagnosis, Assessment Plan Plan discussed with: patient, spouse/partner, admitting physician, collaborating MD, nurse Free Text DxA P Notes Free Text DxA P Notes: 1. Multivessel CAD * S/p Impella protected PCI to Lcx, then to the mid LAD and then proximal LAD to the left main using mini crush technique with excellent angiographic results. * continue Brilinta, ASA, statin, add metoprolol succinate 25 mg daily * Echo LVEF improved 40-44%, was <25% * unilateral swelling RUE - no DVT, it showed superficial thrombosis in the R basilic vein 2. Severe PAD with nonhealing foot ulcers * Vascular surgery planning for outpatient intervention 3. Mitral regurgitation * moderate to severe MR on TTE with contrast * JULIA reviewed 4. Severe ischemic cardiomyopathy * volume management per HD * initiate GDMT as BP permits. * continueToprol XL 25 mg daily * BP is stable, decrease midodrine to 2.5 mg TID * no need lifevest as LVEF is improved to 40% post PCI Patient is educated on importance of compliance with Brilinta and ASA. I have instructed her to call me immediately if she cannot get Brilinta from the pharmacy. Case management to arrange homehealth Okay to DC from cardiology. Outpatient follow-up with Dr. Grover next week. MDM by Dr. Doyle. at 1112 at 1374 RPT #:[id number] END OF REPORT [facility] 2023-07-25 16:12:00 [facility] ([facility]) Vascular Surgery Progress Note REPORT#:[id number] REPORT STATUS: Signed DATE:07/25/23 TIME: 1612 PATIENT: JOSEPH ROWLEY UNIT #: [id number] ROOM/BED: [place] [address] : 57 AGE: 68 SEX: F ATTEND: Tanvir Prasad MD ADM AUTHOR: Luis Carlos Huggins MD * ALL edits or amendments must be made on the electronic/computer document * Subjective Chief complaint: shortness of breath, vicente, heel ulcers HPI Patient doing well s/p high risk PCI with chronic right heel wound ad lower leg pain. On midodrine. Review of Systems All systems rev neg: except as marked Objective General VS/I O: Last Documented: Result Date Time Pulse Ox 100 [...] Output, Urine 350 PATIENT WEIGHT: Weight (lb): 156 Weight (oz): 15.51 Weight (kg): 71.200 Physical Exam General appearance: alert, awake Neck: non-tender, no JVD Cardiovascular: regular rate and rhythm Respiratory: on oxygen, no distress Abdomen: soft, non-tender, no distention Genitourinary: no flank pain, no urinary catheter Upper extremity: edema (RUE) Lower extremity: abnormal pedal pulse, abnormal peripheral pulse Musculoskeletal: normal inspection Neuro/DEMURRAGE AGENT: alert, oriented X 3, normal speech Skin: right heel ulcer Ulcer: Type/cause: diabetic (right heel ulcer), arterial Location: foot, heel Laterality: bilateral Psychiatry: normal affect, normal mood Medications: Active Meds + DC'd Last 24 Hrs Midodrine (PROAMATINE) 5 MG 0800,1200,1600 PO Metoprolol Succinate [...] ulcer), arterial Location: foot, heel Laterality: bilateral Results Findings/Data: Laboratory Tests 07/25 07/24 07/24 0817 1658 1625 [...] (Auto) (14.0 - 32.0 %) 9.9 L [place] % (Auto) (4.8 - 9.0 %) 12.7 H Eos % (Auto) (0.3 - 3.7 %) 0.2 L Baso % (Auto) (0.0 - 2.0 %) 0.1 Neut # (Auto) (2.0 - 7.6 x10 3/uL) 9.77 H Lymph # (Auto) (1.0 - 3.8 x10 3/uL) 1.27 [place] # (Auto) (0.1 - 0.8 x10 3/uL) [...] (0.0 - 0.1 x10 3/uL) 0.10 Radiology data: Recent Impressions: ULTRASOUND - DUP VEIN UNI/LTD 07/25 1415 Report Impression - Status: SIGNED Entered: 07/25/2023 6160 IMPRESSION: 1. Superficial venous thrombosis in the right basilic vein. 2. No evidence of deep venous thrombosis in the right upper extremity. The right subclavian vein is unable to be evaluated due to overlying bandaging. Impression By: Lamar - Marco Antonio Jenkins M.D. Diagnosis, Assessment Plan Problem List/A P: 1. PAD (peripheral artery disease) 2. ESRD (end stage renal disease) on dialysis 3. Coronary artery disease 4. Mitral regurgitation 5. HFrEF (heart failure with reduced ejection fraction) Free Text A P: Discussed options for revascualrization with the patient and cardiology team. Patient will require either aortobifemoral bypass or bilateral common femoral artery endarterectomies with possible retrograde iliac stents and possible staged right femoral revascualrization. Recommend wainting at least 2 weeks after high risk PCI and time to change antiplatelelts from birlinta to plavix. [facility] Consultants: cardiology, cardiovascular surgery, critical/broommaker, nephrology at 1623 RPT #:[id number] END OF REPORT [facility] 2023-07-25 10:52:00 [facility] Cardiology Progress Note REPORT#:[id number] REPORT STATUS: Signed DATE:07/25/23 TIME: 1052 PATIENT: JOSEPH ROWLEY UNIT #: [id number] ROOM/BED: [place] [address] : 57 AGE: 68 SEX: F ATTEND: Tanvir Prasad MD ADM AUTHOR: Yue BarraganCNP * ALL edits or amendments must be made on the electronic/computer document * Subjective Comments: doing well. C/o DORETHA swelling Review of Systems Respiratory: Denies: SOB. Cardiovascular: Denies: chest pain, VICENTE (dyspnea on exertion), edema, orthopnea, palpitations, parox nocturnal dyspnea, other. Musculoskeletal: Extremity swelling: Reports: right upper. Objective General VS/I O: 24 hour I O ending at 0700: 07/25 0700 07/24 1900 Intake Total 480 Output Total 350 Balance 130 Intake, Oral 480 Number Voids 2 Output, Urine 350 Vital Signs Date Temp Pulse Resp B/P B/P Mean Pulse Ox FiO2 07/24-07/25 36.4-37.1 65-80 14-30 118-148/59-70 82-101 96-100 PATIENT WEIGHT: Weight (lb): 156 Weight (oz): 15.51 Weight (kg): 71.200 Medications: Active Meds + DC'd Last 24 Hrs Metoprolol Succinate (TOPROL XL) 25 MG DAILY [...] 0.9%) 250 ML ASDIR PRN IV Physical Exam General appearance: alert, awake Neck: non-tender, no JVD Cardiovascular: CV assessment: regular rate and rhythm Murmur assessment: heart murmur Respiratory: on oxygen, no distress Abdomen: soft, non-tender, normal bowel sounds, no distention Genitourinary: no flank pain, no urinary catheter Upper extremity: UE assessment: edema (RUE) Lower extremity: LE assessment: abnormal pedal pulse, abnormal peripheral pulse Musculoskeletal: normal inspection Neuro/DEMURRAGE AGENT: alert, oriented X 3, normal speech Skin: right heel ulcer Ulcer: Type/cause: diabetic (right heel ulcer), arterial Location: foot, heel Laterality: bilateral Psychiatry: normal affect, normal mood Results Findings/Data: Laboratory Tests 07/25 07/24 07/24 0817 1658 1625 [...] (Auto) (14.0 - 32.0 %) 9.9 L [place] % (Auto) (4.8 - 9.0 %) 12.7 H Eos % (Auto) (0.3 - 3.7 %) 0.2 L Baso % (Auto) (0.0 - 2.0 %) 0.1 Neut # (Auto) (2.0 - 7.6 x10 3/uL) 9.77 H Lymph # (Auto) (1.0 - 3.8 x10 3/uL) 1.27 [place] # (Auto) (0.1 - 0.8 x10 3/uL) [...] labs reviewed, vital signs reviewed, rhythm personally rev'd Telemetry Interpretation: sinus rhythm Diagnosis, Assessment Plan Plan discussed with: patient, collaborating MD, nurse Free Text DxA P Notes Free Text DxA P Notes: 1. Multivessel CAD * S/p Impella protected PCI to Lcx, then to the mid LAD and then proximal LAD to the left main using mini crush technique with excellent angiographic results. * continue Brilinta, ASA, statin, add metoprolol succinate 25 mg daily * Echo LVEF improved 40-44%, was <25% * unilateral swelling RUE - will get venous doppler to r/o DVT 2. Severe PAD with nonhealing foot ulcers * Vascular surgery recommendation noted * VAscular surgery can proceed with LE intervention 3. Mitral regurgitation * moderate to severe MR on TTE with contrast * JULIA reviewed 4. Severe ischemic cardiomyopathy * volume management per HD * initiate GDMT as BP permits. add Toprol XL 25 mg daily * Decrease midodrine to 5 mg TID * no need lifevest as LVEF is improved to40% post PCI Doing well Mobilize OOB, PT/OT okay to transfer out of CCU to [facility] only MDM by Dr. Doyle. at 1323 at 1723 RPT #:[id number] END OF REPORT [facility] 2023-07-25 10:15:00 [facility] ([facility]) Hospitalist Progress Note REPORT#:[id number] REPORT STATUS: Signed DATE:07/25/23 TIME: 1015 PATIENT: JOSEPH ROWLEY UNIT #: [id number] ROOM/BED: [place] [address] : 57 AGE: 68 SEX: F ATTEND: Tanvir Prasad MD ADM AUTHOR: Rosy Lou APRN * ALL edits or amendments must be made on the electronic/computer document * Subjective Chief complaint: Doing ok, nausea/vomiting yesterday, improved today post PCI and impella HPI: Patient had a fever spike yesterday was started on empiric antibiotics with UA abnormal system of UTI she is less confused and more alert per patient/family at bedside Review of Systems Constitutional: Denies: chills, fever. Skin: Denies: itching, rash. Respiratory: Denies: SOB, wheezing. Cardiovascular: Denies: chest pain, palpitations. GI: Reports: nausea, vomiting. Endocrine: Reports: other (hypoglycemia). All systems rev neg: except as noted Objective General VS/I O: Vital Signs: Date Time Temp Pulse Resp B/P B/P Pulse O2 O2 Flow FiO2 Mean Ox Delivery Rate 07/25 0800 37.1 07/25 0700 69 18 122/59 85 97 / 0600 74 23 130/63 90 100 / 0500 72 23 121/63 87 98 09/ 0400 36.7 Room air 07/25 0400 70 23 127/62 89 99 / 0300 66 14 123/59 82 97 / 0200 67 18 122/63 88 99 09/11 0100 67 15 130/60 85 97 09/ 0000 36.6 Room air / 0000 67 20 118/59 85 96 09/10 2300 68 30 133/61 87 99 09/10 2236 71 24 119/61 85 98 09/10 2101 71 15 130/63 91 99 09/10 2000 36.4 Room air / 2000 68 26 148/70 101 100 09/10 1900 68 22 134/67 94 100 09/10 1600 36.6 09/10 1600 66 15 139/65 94 100 09/10 1500 65 15 139/65 92 99 09/10 1400 67 21 124/65 89 100 09/10 1354 68 22 132/66 92 100 09/10 1202 66 11 125/60 87 100 09/10 1200 36.6 09/10 1100 65 25 129/82 102 100 24 hour I O ending at 0700: 07/25 0700 09/ 1900 Intake Total 480 Output Total 350 Balance 130 Intake, Oral 480 Number Voids 2 Output, Urine 350 PATIENT WEIGHT: Weight (lb): 156 Weight (oz): 15.51 Weight (kg): 71.200 Medications: Active Meds + DC'd Last 24 Hrs Collagenase (SANTYL 2GM TOPICAL) 1 APPLIC DAILY [...] 0.9%) 250 ML ASDIR PRN IV Physical Exam General appearance: alert, awake, oriented, no acute distress, mental status normal, no respiratory distress Head/Eyes: atraumatic, normal conjunctiva/sclera, normal eyelids/periorb. Neck: full range of motion Cardiovascular: normal capillary refill, normal heart sounds, regular rate rhythm Respiratory: aerating well, clear to auscultation, symmetric expansion, no distress Abdomen: non-tender, normal bowel sounds, soft, no distention Extremities: no edema Neuro/DEMURRAGE AGENT: alert, oriented X 3 Ulcer: Type/cause: diabetic (right heel ulcer), arterial Location: foot, heel Laterality: bilateral Psychiatry: depressed Results Findings/Data: Laboratory Tests 07/25 07/24 07/24 0817 1658 1625 [...] (Auto) (14.0 - 32.0 %) 9.9 L [place] % (Auto) (4.8 - 9.0 %) 12.7 H Eos % (Auto) (0.3 - 3.7 %) 0.2 L Baso % (Auto) (0.0 - 2.0 %) 0.1 Neut # (Auto) (2.0 - 7.6 x10 3/uL) 9.77 H Lymph # (Auto) (1.0 - 3.8 x10 3/uL) 1.27 [place] # (Auto) (0.1 - 0.8 x10 3/uL) [...] - 0.1 x10 3/uL) 0.10 Diagnosis, Assessment Plan Consultants: cardiology, cardiovascular surgery, critical/broommaker, nephrology Free Text DxA P Notes Free text DxA P notes: 68-year-old female with a past medical history of type 1 diabetes from the age of 46 years old, end-stage renal disease, on dialysis since July 2022, hypertension who presented to her research epidemiologist for evaluation of bilateral nonhealing ulcerations of her bilateral heels for the past 3 months, and shortness of breath with exertion. Left heart catheterization showed significant for severe three-vessel coronary artery disease with severe bilateral occluded SFAs of the lower extremity. Issues as below. Suspected urinary tract infection Severe three-vessel CAD Severe peripheral vascular disease Diabetes mellitus End-stage renal failure on hemodialysis Nonhealing bilateral heel ulcerations Hypertension Hyperlipidemia CHF Mitral valve regurgitation Plan and recommendations Patient admitted into medicine Vital signs every 4 Patient Antiplatelets and statin per cardiology Seen by vascular surgery" CT surgery. Nephrology for hemodialysis. Will do basic lab work include CBC BMP now. Patient is not having significant hypoxia at this time DVT prophylaxis Restart home medications Discussed management plan in detail with patient's family. 07/13/[address] surgery and vascular surgery plans Hemodialysis was done yesterday Hemodialysis per nephrology Monitor renal function Blood sugar control with insulin pump. 07/14/2023 Fever spike last night blood cultures on empiric antibiotics for possible UTI Antibiotics changed Follow-up on cultures Follow-up on cardiothoracic surgery and oncology recommendations plan to have discussion tomorrow Blood sugars controlled Lab work otherwise stable DVT prophylaxis Hemodialysis per nephrology 07/15- take over care from [...] to heels, increase midodrine to 10 mg 3 times daily in view of persistent hypotension. 07/18 [...] treatment 07/21- she is seen in the cathode washer --PCI /impella -- afternoon -- lab am [...] wound care. at 1038 at 1247 RPT #:[id number] END OF REPORT [facility] 2023-07-25 10:14:00 [facility] Nephrology Progress Note REPORT#:[id number] REPORT STATUS: Signed DATE:07/25/23 TIME: 1014 PATIENT: JOSEPH ROWLEY UNIT #: [id number] ROOM/BED: [place] [address] : 57 AGE: 68 SEX: F ATTEND: Tanvir Prasad MD ADM AUTHOR: Winnie Noyola MD * ALL edits or amendments must be made on the electronic/computer document * Subjective Chief complaint: follow up of ESRD Comments: On dialysis, tolerating it well Objective General VS/I O: Vital Signs: Date Time Temp Pulse Resp [...] 07/25 0200 67 18 122/63 88 99 /11 0100 67 15 130/60 85 97 09/11 0000 97.8 Room air 07/25 0000 67 20 118/59 85 96 09/10 2300 68 30 133/61 87 99 09/10 2236 71 24 119/61 85 98 09/10 2101 71 15 130/63 91 99 09/10 2000 97.6 Room air / 2000 68 26 148/70 101 100 09/10 1900 68 22 134/67 94 100 09/10 1600 97.8 09/10 1600 66 15 139/65 94 100 09/10 1500 65 15 139/65 92 99 09/10 1400 67 21 124/65 89 100 09/10 1354 68 22 132/66 92 100 /10 1202 66 11 125/60 87 100 / 1200 97.8 07/24 1100 65 25 129/82 102 100 24 hour I O ending at 0700: 07/25 0700 07/24 1900 Intake Total 480 Output Total 350 Balance 130 Intake, Oral 480 Number Voids 2 Output, Urine 350 PATIENT WEIGHT: Weight (lb): 156 Weight (oz): 15.51 Weight (kg): 71.200 Medications Active Meds + DC'd Last 24 Hrs Collagenase (SANTYL 2GM TOPICAL) 1 APPLIC DAILY [...] 0.9%) 250 ML ASDIR PRN IV Physical Exam Head/eyes: atraumatic, normocephalic, PERRLA ENT: moist mucous membranes Neck: no JVD, no lymphadenopathy, no masses or swelling Cardiovascular: normal heart sounds, regular rate and rhythm, no murmur, no rub Respiratory: aerating well, clear to auscultation, normal breath sounds, no distress Abdomen: non-tender, normal bowel sounds, soft, no rebound Genitourinary: no bladder distention, no flank pain, no urinary catheter Extremities: pitting edema, no gangrene Neuro/DEMURRAGE AGENT: alert, oriented X 3, CN II-XII intact, normal speech Ulcer: Type/cause: diabetic (right heel ulcer), arterial Location: foot, heel Laterality: bilateral Results Findings/Data: Laboratory Tests 07/25 07/24 07/24 0817 1658 1625 [...] (Auto) (14.0 - 32.0 %) 9.9 L [place] % (Auto) (4.8 - 9.0 %) 12.7 H Eos % (Auto) (0.3 - 3.7 %) 0.2 L Baso % (Auto) (0.0 - 2.0 %) 0.1 Neut # (Auto) (2.0 - 7.6 x10 3/uL) 9.77 H Lymph # (Auto) (1.0 - 3.8 x10 3/uL) 1.27 [place] # (Auto) (0.1 - 0.8 x10 3/uL) [...] - 0.1 x10 3/uL) 0.10 Diagnosis, Assessment Plan Free Text A P: 1. ESRD continue with dialysis Tuesday. Currently on [...] Discussed with at bedside at 1631 RPT #:[id number] END OF REPORT [facility] 2023-07-24 19:29:00 [facility] ([facility]) Nephrology Progress Note REPORT#:[id number] REPORT STATUS: Signed DATE:07/24/23 TIME: 1928 PATIENT: JOSEPH ROWLEY UNIT #: [id number] ROOM/BED: [place] [address] : 57 AGE: 68 SEX: F ATTEND: Tanvir Prasad MD ADM AUTHOR: Tomasa Feng MD * ALL edits or amendments must be made on the electronic/computer document * Subjective Chief complaint: follow up of ESRD Review of Systems Constitutional: Reports: generalized weakness. All systems rev neg: except as marked Objective General VS/I O: Vital Signs: Date Time Temp Pulse Resp B/P B/P Pulse O2 O2 Flow FiO2 Mean Ox Delivery Rate 07/24 1600 97.8 / 1600 66 15 139/65 94 100 09/10 [...] 15 119/58 83 99 09/10 0800 97.8 09/10 0800 65 17 133/63 90 100 09/10 0658 98.6 09/10 0600 66 23 139/64 92 97 09/10 0500 59 12 113/56 80 97 09/10 0400 98.3 Room air 07/24 0400 61 [...] scale Measurement Method PATIENT WEIGHT: Weight (lb): 156 Weight (oz): 15.51 Weight (kg): 71.200 Medications Active Meds + DC'd Last 24 Hrs Collagenase (SANTYL 2GM TOPICAL) 1 APPLIC DAILY [...] 0.9%) 250 ML ASDIR PRN IV Physical Exam General appearance: alert, awake, oriented Head/eyes: atraumatic, normocephalic, PERRLA ENT: moist mucous membranes Neck: no JVD, no lymphadenopathy, no masses or swelling Cardiovascular: normal heart sounds, regular rate and rhythm, no murmur, no rub Respiratory: aerating well, clear to auscultation, normal breath sounds, no distress Abdomen: non-tender, normal bowel sounds, soft, no rebound Genitourinary: no bladder distention, no flank pain, no urinary catheter Extremities: pitting edema, no gangrene Neuro/DEMURRAGE AGENT: alert, oriented X 3, CN II-XII intact, normal speech Ulcer: Type/cause: diabetic (right heel ulcer), arterial Location: foot, heel Laterality: bilateral Results Findings/Data: Laboratory Tests 07/24 07/24 07/24 5835 6768 7630 Chemistry Sodium (134 - 147 mEq/L) 130 [...] (Auto) (14.0 - 32.0 %) 6.1 L [place] % (Auto) (4.8 - 9.0 %) 8.4 Eos % (Auto) (0.3 - 3.7 %) 0.0 L Baso % (Auto) (0.0 - 2.0 %) 0.1 Neut # (Auto) (2.0 - 7.6 x10 3/uL) 13.81 H Lymph # (Auto) (1.0 - 3.8 x10 3/uL) 1.00 [place] # (Auto) (0.1 - 0.8 x10 3/uL) [...] 0.1 x10 3/uL) 0.15 H Diagnosis, Assessment Plan Free Text A P: 1. ESRD continue with dialysis Tuesday. 2. Hypotension [...] brother at bedside Consultants: cardiology, cardiovascular surgery, critical/broommaker, nephrology at 1930 RPT #:[id number] END OF REPORT [facility] 2023-07-24 12:10:00 [facility] REPORT#:[id number] REPORT STATUS: Signed DATE:07/24/23 TIME: 1210 PATIENT: JOSEPH ROWLEY UNIT #: [id number] ROOM/BED: [place] [address] : 57 AGE: 68 SEX: F ATTEND: Tanvir Prasad MD ADM AUTHOR: Violetta Davis MD * ALL edits or amendments must be made on the electronic/computer document * Subjective Chief complaint: rest on the bed . no complaint post PCI and impella HPI: Patient had a fever spike yesterday was started on empiric antibiotics with UA abnormal system of UTI she is less confused and more alert per patient/family at bedside Review of Systems All systems rev neg: except as noted Objective General VS/I O: Vital Signs: Date Time Temp Pulse Resp B/P B/P Pulse O2 O2 Flow FiO2 Mean Ox Delivery Rate 07/24 900 60 15 119/58 83 99 07/24 0800 65 17 133/63 90 100 07/24 0658 37.0 07/24 06 66 23 139/64 92 97 09/10 0500 59 12 113/56 80 97 07/24 0400 36.8 Room air 07/24 0400 61 13 128/60 87 97 07/24 0300 59 13 131/64 92 99 07/24 0200 58 12 124/60 87 98 09 0000 36.9 Room air 09 0000 61 27 132/64 92 96 07/23 2300 60 14 117/57 82 96 07/23 2200 65 21 134/62 89 97 07/23 2100 65 28 135/64 92 99 07/23 2001 66 22 135/60 87 97 07/23 2000 36.9 Room air 07/23 1900 68 28 120/58 84 97 07/23 1804 69 29 124/58 84 99 07/23 [...] scale Measurement Method PATIENT WEIGHT: Weight (lb): 156 Weight (oz): 15.51 Weight (kg): 71.200 Medications: Active Meds + DC'd Last 24 Hrs Collagenase (SANTYL 2GM TOPICAL) 1 APPLIC DAILY [...] IV (DC) Dextrose/Water (DEXTROSE 5% WATER) 1,000 ML Fentanyl Citrate (SUBLIMAZE) 25 MCG Q2H PRN [...] 0.9%) 250 ML ASDIR PRN IV Physical Exam General appearance: alert, awake, oriented Head/Eyes: atraumatic, normal conjunctiva/sclera, normal eyelids/periorb. Neck: full range of motion Cardiovascular: normal capillary refill, normal heart sounds, regular rate rhythm Respiratory: aerating well, clear to auscultation, symmetric expansion, no distress Abdomen: non-tender, normal bowel sounds, soft, no distention Extremities: no edema Neuro/DEMURRAGE AGENT: alert, oriented X 3 Ulcer: Type/cause: diabetic (right heel ulcer), arterial Location: foot, heel Laterality: bilateral Psychiatry: depressed Results Findings/Data: Laboratory Tests 07/24 527 Chemistry Sodium (134 - [...] (Auto) (14.0 - 32.0 %) 6.1 L [place] % (Auto) (4.8 - 9.0 %) 8.4 Eos % (Auto) (0.3 - 3.7 %) 0.0 L Baso % (Auto) (0.0 - 2.0 %) 0.1 Neut # (Auto) (2.0 - 7.6 x10 3/uL) 13.81 H Lymph # (Auto) (1.0 - 3.8 x10 3/uL) 1.00 [place] # (Auto) (0.1 - 0.8 x10 3/uL) [...] 0.1 x10 3/uL) 0.15 H Diagnosis, Assessment Plan Consultants: cardiology, cardiovascular surgery, critical/broommaker, nephrology Free Text DxA P Notes Free text DxA P notes: 68-year-old female with a past medical history of type 1 diabetes from the age of 46 years old, end-stage renal disease, on dialysis since July 2022, hypertension who presented to her research epidemiologist for evaluation of bilateral nonhealing ulcerations of her bilateral heels for the past 3 months, and shortness of breath with exertion. Left heart catheterization showed significant for severe three-vessel coronary artery disease with severe bilateral occluded SFAs of the lower extremity. Issues as below. Suspected urinary tract infection Severe three-vessel CAD Severe peripheral vascular disease Diabetes mellitus End-stage renal failure on hemodialysis Nonhealing bilateral heel ulcerations Hypertension Hyperlipidemia CHF Mitral valve regurgitation Plan and recommendations Patient admitted into medicine Vital signs every 4 Patient Antiplatelets and statin per cardiology Seen by vascular surgery" CT surgery. Nephrology for hemodialysis. Will do basic lab work include CBC BMP now. Patient is not having significant hypoxia at this time DVT prophylaxis Restart home medications Discussed management plan in detail with patient's family. 07/13/[address] surgery and vascular surgery plans Hemodialysis was done yesterday Hemodialysis per nephrology Monitor renal function Blood sugar control with insulin pump. 07/14/2023 Fever spike last night blood cultures on empiric antibiotics for possible UTI Antibiotics changed Follow-up on cultures Follow-up on cardiothoracic surgery and oncology recommendations plan to have discussion tomorrow Blood sugars controlled Lab work otherwise stable DVT prophylaxis Hemodialysis per nephrology 07/15- take over care from [...] to heels, increase midodrine to 10 mg 3 times daily in view of persistent hypotension. 07/18 [...] treatment 07/21- she is seen in the cathode washer --PCI /impella -- afternoon -- lab am [...] notes -- continue monitor in ccu at 9754 RPT #:[id number] END OF REPORT [facility] 2023-07-24 11:28:00 [facility] ([facility]) Critical Care Progress Note REPORT#:[id number] REPORT STATUS: Signed DATE:07/24/23 TIME: 112 PATIENT: JOSEPH ROWLEY UNIT #: [id number] ROOM/BED: [place] [address] : 57 AGE: 68 SEX: F ATTEND: Tanvir Prasad MD ADM AUTHOR: Enedelia Chu CNP * ALL edits or amendments must be made on the electronic/computer document * Subjective Chief complaint: S/p PCI with impella. HPI: Joseph Mccullough is a 68-year-old female with a DM1, HTN, severe cardiomyopathy, HF with EF of 25% as well as severe MR, ESRD, on dialysis since July 2022, who presented to her research epidemiologist for evaluation of bilateral nonhealing ulcerations of [...] 78. Reports pain to surgical site. Objective General VS/I O Last Documented: Result Date Time Pulse Ox 99 07/24 900 B/P 119/58 07/24 900 B/P Mean 83 07/24 900 Pulse 60 07/24 900 Resp 15 07/24 900 Temp 98.6 07/24 0658 O2 Delivery Room [...] scale Measurement Method PATIENT WEIGHT: Weight (lb): 156 Weight (oz): 15.51 Weight (kg): 71.200 Medications: Active Meds + DC'd Last 24 Hrs Collagenase (SANTYL 2GM TOPICAL) 1 APPLIC DAILY [...] IV (DC) Dextrose/Water (DEXTROSE 5% WATER) 1,000 ML Fentanyl Citrate (SUBLIMAZE) 25 MCG Q2H PRN [...] CHLORIDE 0.9%) 250 ML ASDIR PRN IV Results Findings/data: Laboratory Tests 07/24 05 Chemistry Sodium (134 - 147 mEq/L) 130 [...] - 2.6 mg/dL) 2.16 Laboratory Tests 07/24 05 Hematology WBC (4.5 - 11.0 x10 3/uL) [...] (Auto) (14.0 - 32.0 %) 6.1 L [place] % (Auto) (4.8 - 9.0 %) 8.4 Eos % (Auto) (0.3 - 3.7 %) 0.0 L Baso % (Auto) (0.0 - 2.0 %) 0.1 Neut # (Auto) (2.0 - 7.6 x10 3/uL) 13.81 H Lymph # (Auto) (1.0 - 3.8 x10 3/uL) 1.00 [place] # (Auto) (0.1 - 0.8 x10 3/uL) [...] x10 3/uL) 0.15 H Laboratory Tests 07/24/23 0527: [Embedded Image Not Available] Free Text Obj Notes Free Text Obj Notes: Physical Exam General appearance: alert, awake Neck: non-tender, no JVD Cardiovascular: CV assessment: regular rate and rhythm Murmur assessment: heart murmur Respiratory: on oxygen, no distress Abdomen: soft, non-tender, normal bowel sounds, no distention Genitourinary: no flank pain, no urinary catheter Upper extremity: UE assessment: Impella in place Lower extremity: LE assessment: abnormal pedal pulse, abnormal peripheral pulse Musculoskeletal: normal inspection Neuro/DEMURRAGE AGENT: alert, oriented X 3, normal speech Skin: right heel ulcer Ulcer: Type/cause: diabetic (right heel ulcer), arterial Location: foot, heel Laterality: bilateral Psychiatry: normal affect, normal mood Diagnosis, Assessment Plan Free text A P: Joseph Mccullough is a 68-year-old female with a DM1, HTN, severe cardiomyopathy, HF with EF of 25% as well as severe MR, ESRD, on dialysis since July 2022, who presented to her research epidemiologist for evaluation of bilateral nonhealing ulcerations of [...] HR 78. Reports pain to surgical site. Plan: 07/24/2023 Seen and examined. Neuro: AO x3, no distress At baseline Judicious pain control CV: Started on heparin 5000 units SQ every 8 hours by Cardio consult Mitral regurgitation, severe ischemic cardiomyopathy CAD, multivessel disease - S/P Impella 5.5 protected PCI to LCx, mid LAD, proximal LAD to the left main 07/22 DC Impella Limited echo done, result noted On aspirin, statin, Brilinta Continue midodrine Severe PAD with nonhealing foot ulcers - Vascular surgeon consulted, pending recs Cardio, vascular and CTS following Resp: Saturating well on room air Supplemental oxygen to keep saturation more than 92% GI/Endo: AARON HgbA1C 7.5 Glycemic control DM 1 - patient has her own insulin pump, glucochecks ACHS Bowel care : ESRD, on HD - HD per nephrology Right Tessio HD catheter in place Monitor renal function, I O, weigh daily Monitor electrolytes and replete as needed Nephro following Heme/ID: Afebrile Leukocytosis On Retacrit Monitor CBC and transfuse as needed Musc: Foot ulcers - Wound care consulted, pending recs Wound care nurse following Follow wound care recommendations Skin care Pressure injury prevention PT/OT DVT prophylaxis: Heparin subcu Dispo: CCU. Patient is full code. I spent 35 minutes of critical care reviewing labs, imaging and discussing plan of care with ICC team, patient, family and nurse. Consultants: cardiology, cardiovascular surgery, critical/broommaker, nephrology Code status: full code Plan discussed with: patient, family, nurse, interdisc care team Critical care time: Minutes: 35 at 1603 RPT #:[id number] END OF REPORT [facility] 2023-07-24 08:10:00 [facility] ([facility]) Cardiology Progress Note REPORT#:[id number] REPORT STATUS: Signed DATE:07/24/23 TIME: 809 PATIENT: JOSEPH ROWLEY UNIT #: [id number] ROOM/BED: 3306-1 : 57 AGE: 68 SEX: F ATTEND: Tanvir Prasad MD ADM AUTHOR: Brandy Doyle MD * ALL edits or amendments must be made on the electronic/computer document * Subjective Free Text Subj Notes Free Text Subj Notes: Cardiology progress note Date of service: 07/24/2023 Chief complaint/reason for consult: CAD CHF PCI Patient seen and examined, chart reviewed, questions/concerns addressed with RN. Current medication and vitals reviewed. HPI and interval Hx: Denies any chest pain or shortness of breath. No major events overnight. Plan for hemodialysis today the downgrade to telemetry. Subjective: No chest pain or shortness of breath Objective: Vital Signs Date Temp Pulse Resp B/P B/P Mean Pulse Ox FiO2 07/23-07/24 98.3-98.8 58-72 12-29 88-143/39-64 57-92 96-100 GEN: Alert and cooperative, no acute distress. HEENT: NC/AT, EOMI CARD: RRR, normal S1/S2, no R/M/G appreciated LUNGS: CTA w/o added sounds, GBAE. ABD: Soft, nondistended, nontender. Intact BS Assessment, Impression and medical decision making: -Two 8-year-old with hypertension, hyperlipidemia type 1 diabetes mellitus, end- stage renal disease severe multivessel coronary disease with ischemic cardiomyopathy, NSTEMI, chronic combined congestive heart failure status post high risk Impella supported multivessel PCI to left mid LAD/LCx Plan/recommendation: -Hemodynamically stable post Impella explant -Continue with aspirin Brilinta and hypertensive statin -Low-dose losartan and continue with metoprolol at 2124 RPT #:[id number] END OF REPORT [facility] 2023-07-23 17:23:00 [facility] ([facility]) Nephrology Progress Note REPORT#:[id number] REPORT STATUS: Signed DATE:07/23/23 TIME: 1723 PATIENT: JOSEPH ROWLEY UNIT #: [id number] ROOM/BED: 3306-1 : 57 AGE: 68 SEX: F ATTEND: Tanvir Prasad MD ADM AUTHOR: Tomasa Feng MD * ALL edits or amendments must be made on the electronic/computer document * Subjective Chief complaint: follow up of ESRD Review of Systems Constitutional: Reports: generalized weakness. All systems rev neg: except as marked Objective General VS/I O: Vital Signs: Date Time Temp Pulse Resp [...] 07/23 1100 64 15 96/46 67 99 / 1000 67 22 96/39 57 99 / 0921 97 Room air 07/23 0900 68 17 105/47 68 98 / 0800 66 17 111/53 77 96 / 0730 Room air 07/23 0700 70 24 135/120 128 97 / 0400 97.5 Room air 07/23 0400 79 20 119/53 76 95 / 0200 66 14 107/49 71 100 / 0030 66 14 79/59 69 100 / 0000 97.5 Nasal 2 cannula 07/23 0000 66 13 94/44 64 100 /08 2330 71 21 85/65 75 100 /08 2300 64 13 78/57 67 100 / 2230 67 14 84/63 73 100 09/08 2200 85/63 74 09/08 2200 72 15 91/45 65 100 09/08 2130 79 22 94/73 84 100 09/08 2100 77 26 83/61 72 100 / 2030 80 23 77/55 65 93 /08 1999 97.6 Nasal 2 cannula 07/22 2000 Nasal 2 cannula 07/22 2000 119/40 68 07/22 2000 80 23 85/47 55 94 07/22 1930 80 22 121/40 69 96 07/22 1900 81 23 126/47 78 100 24 hour I O ending at 0700: 07/23 0700 07/22 1900 Intake Total 480 825.00 Output Total 2300 Balance 480 -1475.00 Intake, IV 375.00 Intake, Oral 480 100 Intake, 350 Packed Cells Number 0 Bowel Movements Number Voids 0 Output, 2300 Hemodialysis PATIENT WEIGHT: Weight (lb): 159 Weight (oz): 6.31 Weight (kg): 72.300 Medications Active Meds + DC'd Last 24 Hrs Glucagon (GLUCAGON) 1 MG ASDIR PRN IM [...] IV (DC) Dextrose/Water (DEXTROSE 5% WATER) 1,000 ML Fentanyl Citrate (SUBLIMAZE) 25 MCG Q2H PRN [...] 0.9%) 250 ML ASDIR PRN IV Physical Exam General appearance: alert, awake, oriented Head/eyes: atraumatic, normocephalic, PERRLA ENT: moist mucous membranes Neck: no JVD, no lymphadenopathy, no masses or swelling Cardiovascular: normal heart sounds, regular rate and rhythm, no murmur, no rub Respiratory: aerating well, clear to auscultation, normal breath sounds, no distress Abdomen: non-tender, normal bowel sounds, soft, no rebound Genitourinary: no bladder distention, no flank pain, no urinary catheter Extremities: pitting edema, no gangrene Neuro/DEMURRAGE AGENT: alert, oriented X 3, CN II-XII intact, normal speech Ulcer: Type/cause: diabetic (right heel ulcer), arterial Location: foot, heel Laterality: bilateral Results Findings/Data: Laboratory Tests 07/23 07/23 0927 0258 Chemistry Sodium (134 - 147 mEq/L) [...] - 2.6 mg/dL) 1.95 Laboratory Tests 07/23 0258 Hematology WBC (4.5 - 11.0 x10 3/uL) [...] (Auto) (14.0 - 32.0 %) 5.8 L [place] % (Auto) (4.8 - 9.0 %) 4.6 L Eos % (Auto) (0.3 - 3.7 %) 0.1 L Baso % (Auto) (0.0 - 2.0 %) 0.1 Neut # (Auto) (2.0 - 7.6 x10 3/uL) 12.44 H Lymph # (Auto) (1.0 - 3.8 x10 3/uL) 0.81 L [place] # (Auto) (0.1 - 0.8 x10 3/uL) [...] - 0.1 x10 3/uL) 0.05 Diagnosis, Assessment Plan Free Text A P: 1. ESRD continue with dialysis Tuesday. 2. Hypotension [...] brother at bedside Consultants: cardiology, cardiovascular surgery, critical/broommaker, nephrology at 1725 RPT #:[id number] END OF REPORT [facility] 2023-07-23 11:55:00 [facility] Hospitalist Progress Note REPORT#:[id number] REPORT STATUS: Signed DATE:07/23/23 TIME: 1155 PATIENT: JOSEPH ROWLEY UNIT #: [id number] ROOM/BED: [place] [address] : 57 AGE: 68 SEX: F ATTEND: Tanvir Prasad MD ADM AUTHOR: Violetta Davis MD * ALL edits or amendments must be made on the electronic/computer document * Subjective Chief complaint: rest on the bed . no cp no sob post PCI and impella HPI: Patient had a fever spike yesterday was started on empiric antibiotics with UA abnormal system of UTI she is less confused and more alert per patient/family at bedside Review of Systems Constitutional: Reports: generalized weakness. All systems rev neg: except as noted Objective General VS/I O: Vital Signs: Date Time Temp Pulse Resp B/P B/P Pulse O2 O2 Flow FiO2 Mean Ox Delivery Rate 07/23 921 97 Room air 07/23 400 36.4 Room air 07/23 400 79 20 119/53 76 95 09/09 0200 66 14 107/49 71 100 09/09 0030 66 14 79/59 69 100 09/09 0000 36.4 Nasal 2 cannula 09/ 0000 66 13 94/44 64 100 09/08 2330 71 21 85/65 75 100 09/08 2300 64 13 78/57 67 100 09/08 2230 67 14 84/63 73 100 09/08 2200 85/63 74 09/08 2200 72 15 91/45 65 100 09/08 2130 79 22 94/73 84 100 09/08 2100 77 26 83/61 72 100 09/08 2030 80 23 77/55 65 93 09/08 1999 36.4 Nasal 2 cannula 07/22 2000 Nasal [...] 09/08 1430 72 16 103/49 71 100 09/08 1402 69 26 100/40 57 100 09/08 1400 69 18 96/47 68 100 09/08 1330 70 19 95/48 67 100 09/08 1300 72 14 95/51 69 100 09/08 1230 74 17 88/38 55 100 09/08 1200 36.5 71 13 97/47 68 100 24 hour I O ending at 0700: 07/23 0700 / 1900 Intake Total 480 825.00 Output Total 2300 Balance 480 -1475.00 Intake, IV 375.00 Intake, Oral 480 100 Intake, 350 Packed Cells Number 0 Bowel Movements Number Voids 0 Output, 2300 Hemodialysis PATIENT WEIGHT: Weight (lb): 159 Weight (oz): 6.31 Weight (kg): 72.300 Medications: Active Meds + DC'd Last 24 Hrs Glucagon (GLUCAGON) 1 MG ASDIR PRN IM [...] (ZOFRAN) 0 .STK-MED ONE .ROUTE (DC) Rocuronium [place] (ZEMURON) 0 .STK-MED ONE IV (DC) Succinylcholine [...] IV (CKD) Dextrose/Water (DEXTROSE 5% WATER) 1,000 ML Fentanyl Citrate (SUBLIMAZE) 25 MCG Q2H PRN [...] 0.9%) 250 ML ASDIR PRN IV Physical Exam General appearance: alert, awake, oriented Head/Eyes: atraumatic, normal conjunctiva/sclera, normal eyelids/periorb. Neck: full range of motion Cardiovascular: normal capillary refill, normal heart sounds, regular rate rhythm Respiratory: aerating well, clear to auscultation, symmetric expansion, no distress Abdomen: non-tender, normal bowel sounds, soft, no distention Extremities: no edema Neuro/DEMURRAGE AGENT: alert, oriented X 3 Ulcer: Type/cause: diabetic (right heel ulcer), arterial Location: foot, heel Laterality: bilateral Psychiatry: depressed Results Findings/Data: Laboratory Tests 07/23 07/23 0927 0258 Chemistry Sodium (134 - 147 mEq/L) [...] - 32.0 %) 5.8 L 8.8 L [place] % (Auto) (4.8 - 9.0 %) 4.6 L 13.4 H Eos % (Auto) (0.3 - 3.7 %) 0.1 L 3.4 Baso % (Auto) (0.0 - 2.0 %) 0.1 0.3 Neut # (Auto) (2.0 - 7.6 x10 3/uL) 12.44 H 8.65 H Lymph # (Auto) (1.0 - 3.8 x10 3/uL) 0.81 L 1.03 [place] # (Auto) (0.1 - 0.8 x10 3/uL) [...] 0.1 x10 3/uL) 0.05 0.04 Diagnosis, Assessment Plan Consultants: cardiology, cardiovascular surgery, critical/broommaker, nephrology Free Text DxA P Notes Free text DxA P notes: 68-year-old female with a past medical history of type 1 diabetes from the age of 46 years old, end-stage renal disease, on dialysis since July 2022, hypertension who presented to her research epidemiologist for evaluation of bilateral nonhealing ulcerations of her bilateral heels for the past 3 months, and shortness of breath with exertion. Left heart catheterization showed significant for severe three-vessel coronary artery disease with severe bilateral occluded SFAs of the lower extremity. Issues as below. Suspected urinary tract infection Severe three-vessel CAD Severe peripheral vascular disease Diabetes mellitus End-stage renal failure on hemodialysis Nonhealing bilateral heel ulcerations Hypertension Hyperlipidemia CHF Mitral valve regurgitation Plan and recommendations Patient admitted into medicine Vital signs every 4 Patient Antiplatelets and statin per cardiology Seen by vascular surgery" CT surgery. Nephrology for hemodialysis. Will do basic lab work include CBC BMP now. Patient is not having significant hypoxia at this time DVT prophylaxis Restart home medications Discussed management plan in detail with patient's family. 07/13/[address] surgery and vascular surgery plans Hemodialysis was done yesterday Hemodialysis per nephrology Monitor renal function Blood sugar control with insulin pump. 07/14/2023 Fever spike last night blood cultures on empiric antibiotics for possible UTI Antibiotics changed Follow-up on cultures Follow-up on cardiothoracic surgery and oncology recommendations plan to have discussion tomorrow Blood sugars controlled Lab work otherwise stable DVT prophylaxis Hemodialysis per nephrology 07/15- take over care from [...] to heels, increase midodrine to 10 mg 3 times daily in view of persistent hypotension. 07/18 [...] treatment 07/21- she is seen in the cathode washer --PCI /impella -- afternoon -- lab am [...] all lab and image at 1456 RPT #:[id number] END OF REPORT [facility] 2023-07-23 11:12:00 [facility] ([facility]) Critical Care Progress Note REPORT#:[id number] REPORT STATUS: Signed DATE:07/23/23 TIME: 1112 PATIENT: JOSEPH ROWLEY UNIT #: [id number] ROOM/BED: [place] [id number] : 57 AGE: 68 SEX: F ATTEND: Tanvir Prasad MD ADM AUTHOR: Enedelia Chu CNP * ALL edits or amendments must be made on the electronic/computer document * Subjective Chief complaint: S/p PCI with impella. HPI: Joseph Mccullough is a 68-year-old female with a DM1, HTN, severe cardiomyopathy, HF with EF of 25% as well as severe MR, ESRD, on dialysis since July 2022, who presented to her research epidemiologist for evaluation of bilateral nonhealing ulcerations of [...] 78. Reports pain to surgical site. Objective General VS/I O Last Documented: Result Date Time Pulse Ox 97 [...] Output, 2300 Hemodialysis PATIENT WEIGHT: Weight (lb): 159 Weight (oz): 6.31 Weight (kg): 72.300 Medications: Active Meds + DC'd Last 24 Hrs Polyethylene Glycol (MIRALAX) 17 GM DAILY PO [...] (ZOFRAN) 0 .STK-MED ONE .ROUTE (DC) Rocuronium [place] (ZEMURON) 0 .STK-MED ONE IV (DC) Succinylcholine [...] IV (CKD) Dextrose/Water (DEXTROSE 5% WATER) 1,000 ML Fentanyl Citrate (SUBLIMAZE) 25 MCG Q2H PRN [...] CHLORIDE 0.9%) 250 ML ASDIR PRN IV Results Findings/data: Laboratory Tests 07/23 0258 Chemistry Sodium (134 - [...] - 32.0 %) 5.8 L 8.8 L [place] % (Auto) (4.8 - 9.0 %) 4.6 L 13.4 H Eos % (Auto) (0.3 - 3.7 %) 0.1 L 3.4 Baso % (Auto) (0.0 - 2.0 %) 0.1 0.3 Neut # (Auto) (2.0 - 7.6 x10 3/uL) 12.44 H 8.65 H Lymph # (Auto) (1.0 - 3.8 x10 3/uL) 0.81 L 1.03 [place] # (Auto) (0.1 - 0.8 x10 3/uL) [...] x10 3/uL) 0.05 0.04 Laboratory Tests 07/23/23 0258: [Embedded Image Not Available] 07/22/23 1333: [Embedded Image Not Available] Free Text Obj Notes Free Text Obj Notes: Physical Exam General appearance: alert, awake Neck: non-tender, no JVD Cardiovascular: CV assessment: regular rate and rhythm Murmur assessment: heart murmur Respiratory: on oxygen, no distress Abdomen: soft, non-tender, normal bowel sounds, no distention Genitourinary: no flank pain, no urinary catheter Upper extremity: UE assessment: Impella in place Lower extremity: LE assessment: abnormal pedal pulse, abnormal peripheral pulse Musculoskeletal: normal inspection Neuro/DEMURRAGE AGENT: alert, oriented X 3, normal speech Skin: right heel ulcer Ulcer: Type/cause: diabetic (right heel ulcer), arterial Location: foot, heel Laterality: bilateral Psychiatry: normal affect, normal mood Diagnosis, Assessment Plan Free text A P: Joseph Mccullough is a 68-year-old female with a DM1, HTN, severe cardiomyopathy, HF with EF of 25% as well as severe MR, ESRD, on dialysis since July 2022, who presented to her research epidemiologist for evaluation of bilateral nonhealing ulcerations of [...] HR 78. Reports pain to surgical site. Plan: 07/23/2023 Seen and examined. Neuro: AO x3, no distress At baseline Judicious pain control CV: Mitral regurgitation, severe ischemic cardiomyopathy CAD, multivessel disease - S/P Impella 5.5 protected PCI to LCx, mid LAD, proximal LAD to the left main 07/22 DC Impella Limited echo done, result noted On aspirin, statin, Brilinta Continue midodrine Severe PAD with nonhealing foot ulcers - Vascular surgeon consulted, pending recs Cardio, vascular and CTS following Resp: Saturating well on room air Supplemental oxygen to keep saturation more than 92% GI/Endo: AARON HgbA1C 7.5 Glycemic control DM 1 - patient has her own insulin pump, glucochecks ACHS Bowel care : ESRD, on HD - HD per nephrology Right Tessio HD catheter in place Monitor renal function, I O, weigh daily Monitor electrolytes and replete as needed Nephro following Heme/ID: Afebrile Leukocytosis On Retacrit Monitor CBC and transfuse as needed Musc: Skin care Pressure injury prevention PT/OT DVT prophylaxis: SCD Dispo: CCU. Patient is full code. I spent 38 minutes of critical care reviewing labs, imaging and discussing plan of care with ICC team, patient, family and nurse. Consultants: cardiology, cardiovascular surgery, critical/broommaker, nephrology Code status: full code Plan discussed with: patient, family, nurse, interdisc care team Critical care time: Minutes: 38 at 1613 RPT #:[id number] END OF REPORT [facility] 2023-07-23 10:40:00 [facility] Cardiothoracic Surgery Prog REPORT#:[id number] REPORT STATUS: Signed REPORT INITIALIZATION DATE:07/23/23 TIME: 104 PATIENT: JOSEPH ROWLEY UNIT #: [id number] [place] [facility] [place] AGE: 68 SEX: F ATTEND: Tanvir Prasad MD ADM AUTHOR: Trudy Colindres Physic REPT SERVICE DT/TIME: 07/23/23 1040 * ALL edits or amendments must be made on the electronic/computer document * General Post-op: day 1 Subjective Chief complaint: CAD, eval for CABG PVD nonhealing lower extremity ulcers Impella removed yesterday Review of Systems Constitutional: Denies: fever, generalized weakness. Skin: Denies: rash, swelling. Allergy/Immun: Denies: itching, rhinorrhea. Eyes: Denies: itching, diplopia. Respiratory: Denies: VICENTE (dyspnea on exertion), hemoptysis. Cardiovascular: Denies: VICENTE (dyspnea on exertion), edema. GI: Denies: constipation, diarrhea. : Denies: dysuria, hematuria. Musculoskeletal: Denies: joint pain, joint swelling. Heme: Denies: bleeding, bruising. Endocrine: Denies: polydipsia, polyuria. Neuro: Denies: confusion, dizziness. All systems rev neg: except as marked Objective General VS/I O Last Documented: Result Date Time Pulse Ox 97 [...] Output, 2300 Hemodialysis PATIENT WEIGHT: Weight (lb): 159 Weight (oz): 6.31 Weight (kg): 72.300 Physical Exam General appearance: alert, awake, oriented HEENT: anicteric, mucosal membranes moist Cardiovascular: BP/pulses equal bilat., regular rate rhythm Respiratory: aerating well, clear to auscultation Abdomen: soft, non-tender Extremities: dry, moves all Musculoskeletal: full range of motion, painless range of motion Neuro/DEMURRAGE AGENT: alert, oriented X 3 Skin: dry, intact Ulcer: Type/cause: diabetic (right heel ulcer), arterial Location: foot, heel Laterality: bilateral Diagnosis, Assessment Plan Hospital course to date: This is a very pleasant 68-year-old female with a past medical history of type 1 diabetes from the age of 46 years old, end-stage renal disease, on dialysis since July 2022, hypertension who presented to her research epidemiologist for evaluation of bilateral nonhealing ulcerations of her bilateral heels for the past 3 months, and shortness of breath with exertion. Her last echocardiogram was completed with her research epidemiologist showing an EF 20-25% with mild LVH, severe global hypokinesis, mildly dilated left atrium with moderate aortic sclerosis without stenosis, mitral valve leaflets mildly thickened with severe MR, mild to moderate TR, moderate pulmonary hypertension with an RV systolic pressure 62 mmHg. Patient underwent left heart catheterization today and was found to have severe three-vessel coronary artery disease, with severe bilateral occluded SFAs of the lower extremity. CV surgery consulted for evaluation for coronary artery bypass graft surgery Assessment/plan 1. Severe three-vessel CAD 2. Type I diabetic 3. Severe peripheral vascular disease 4. Nonhealing bilateral heel ulcerations 5. Hypertension 6. Hyperlipidemia 7. CHF Documented EF 20-25% in the outpatient setting 04/05 8. Mitral valve regurgitation Noted to be severe [...] atrial pressure. Average global longitudinal strain is -5.7. 2. Right ventricle: Systolic function is mildly to moderately reduced. Systolic pressure is severely increased. 3. Left atrium: The atrium is dilated. The end-systolic volume index (A-L) is 50 ml/m 2. 4. Mitral valve: The annulus is calcified. Prolapse cannot be excluded. There is moderate to severe regurgitation, directed posteriorly and along the left atrial wall. The effective regurgitant orifice (PISA) is 0.39 cm 2. The regurgitant volume (PISA) is 46 ml. 5. Tricuspid valve: Estimated right ventricular systolic pressure is 76 mmHg. There is moderate-severe regurgitation directed toward the septum. 6. Pericardium, extracardiac: There is a large left pleural effusion. 7. Inferior vena cava: The vessel is dilated. The respirophasic diameter changes are blunted (< 50%). Inferior vena cava diameter measures 2.2 cm. 07/13/23 Pat[place] resting comfortable, Denies any new complaints. On room air. Sinus rhythm. AAO x 3 Cardiac workup still underway. CTA head, abdomena nd pelvis ordered by cardiology. Patient will be presented in the high risk cardiology conference. Further recs to follow. 07/14/23 Patient resting comfortable, Denies chest pains Complains of bilateral heel ulcerations Sinus rhythm On room air Carotid Doppler showed no carotid artery stenosis Patient is considered high risk due to multiple comorbidities, ESRD, CHF, DM Patient will be discussed in the high risk conference Further recommendations to Patient was seen with Dr. Sousa 07/15/23 Patient resting comfortable Denies complaints, denies chest pains Remains on room air Sinus rhythm Patient underwent viability study today. Pending results On dialysis, followed by renal Patient STS score estimated at 50% Further recommendations to follow 07/16/23 Patient resting comfortable, denies chest pain No new complaints Remains on room air Sinus rhythm Pending viability study results. Dialysis per renal. Patient will be discussed in the high risk conference next week. 07/17/23 Patient resting comfortable, No complaints. Remains sinus rhythm. on room air. Viability study completed EF 28% Dialysis as per renal Medical management as per cardiology Patient will be discussed in high risk conference next week. 07/18/23 Patient resting comfortable Denies chest pains On room air Dialysis planned for today Remains sinus rhythm Anemia managed per nephrology Patient will be discussed in the high risk cardiology conference Further recommendations to follow 07/19/23 Patient resting comfortable. Denies chest pains. AAO x 3 on room air. Dialysis yesterday. 07/21/[address] Lyon for high risk PCI 07/22/23 Impella removed 07/23/23 Patient resting comfortable Denies complaints Impella removed yesterday by Dr. Lyon. Vital signs stable Surgical site clean and dry. No hematoma No right arm pain. Right arm appears well perfused Continue PT/OT Further medical management as per cardiology recommendations Patient was seen and examined by Dr. Lyon Free Text A P: This is a very pleasant 68-year-old female with a past medical history of type 1 diabetes from the age of 46 years old, end-stage renal disease, on dialysis since July 2022, hypertension who presented to her research epidemiologist for evaluation of bilateral nonhealing ulcerations of her bilateral heels for the past 3 months, and shortness of breath with exertion. Her last echocardiogram was completed with her research epidemiologist showing an EF 20-25% with mild LVH, severe global hypokinesis, mildly dilated left atrium with moderate aortic sclerosis without stenosis, mitral valve leaflets mildly thickened with severe MR, mild to moderate TR, moderate pulmonary hypertension with an RV systolic pressure 62 mmHg. Patient underwent left heart catheterization today and was found to have severe three-vessel coronary artery disease, with severe bilateral occluded SFAs of the lower extremity. CV surgery consulted for evaluation for coronary artery bypass graft surgery Assessment/plan 1. Severe three-vessel CAD 2. Type I diabetic 3. Severe peripheral vascular disease 4. Nonhealing bilateral heel ulcerations 5. Hypertension 6. Hyperlipidemia 7. CHF Documented EF 20-25% in the outpatient setting 04/05 8. Mitral valve regurgitation Noted to be severe [...] atrial pressure. Average global longitudinal strain is -5.7. 2. Right ventricle: Systolic function is mildly to moderately reduced. Systolic pressure is severely increased. 3. Left atrium: The atrium is dilated. The end-systolic volume index (A-L) is 50 ml/m 2. 4. Mitral valve: The annulus is calcified. Prolapse cannot be excluded. There is moderate to severe regurgitation, directed posteriorly and along the left atrial wall. The effective regurgitant orifice (PISA) is 0.39 cm 2. The regurgitant volume (PISA) is 46 ml. 5. Tricuspid valve: Estimated right ventricular systolic pressure is 76 mmHg. There is moderate-severe regurgitation directed toward the septum. 6. Pericardium, extracardiac: There is a large left pleural effusion. 7. Inferior vena cava: The vessel is dilated. The respirophasic diameter changes are blunted (< 50%). Inferior vena cava diameter measures 2.2 cm. 07/13/23 Patinet resting comfortable, Denies any new complaints. On room air. Sinus rhythm. AAO x 3 Cardiac workup still underway. CTA head, abdomena nd pelvis ordered by cardiology. Patient will be presented in the high risk cardiology conference. Further recs to follow. 07/14/23 Patient resting comfortable, Denies chest pains Complains of bilateral heel ulcerations Sinus rhythm On room air Carotid Doppler showed no carotid artery stenosis Patient is considered high risk due to multiple comorbidities, ESRD, CHF, DM Patient will be discussed in the high risk conference Further recommendations to Patient was seen with Dr. Sousa 07/15/23 Patient resting comfortable Denies complaints, denies chest pains Remains on room air Sinus rhythm Patient underwent viability study today. Pending results On dialysis, followed by renal Patient STS score estimated at 50% Further recommendations to follow 07/16/23 Patient resting comfortable, denies chest pain No new complaints Remains on room air Sinus rhythm Pending viability study results. Dialysis per renal. Patient will be discussed in the high risk conference next week. 07/17/23 Patient resting comfortable, No complaints. Remains sinus rhythm. on room air. Viability study completed EF 28% Dialysis as per renal Medical management as per cardiology Patient will be discussed in high risk conference next week. 07/18/23 Patient resting comfortable Denies chest pains On room air Dialysis planned for today Remains sinus rhythm Anemia managed per nephrology Patient will be discussed in the high risk cardiology conference Further recommendations to follow 07/19/23 Patient resting comfortable Denies chest pains Complains of heel pains On room air Sinus rhythm Patient was seen and examined with Dr. Lyon. Patient is high risk for surgical intervention. Dr. Lyon will discuss with cardiology and patient will be discussed in the high risk cardiology conference this week. 07/20/23 Patient resting comfortable No new complaints On room air Sinus rhythm Bilateral heel ulcers. Vascular following Patient will be discussed in the high risk cardiology conference on Tuesday Patient seen and examined with Dr. Lyon 07/21/23 Patient resting comfortable. Denies chest pains. ON room air. sinus rhythm. Wound care follwoing bilateral heal ulcers. Vascular follwoing. Planned for possible PCI today with Impella planned for today. CV surgery will be on standby Patient considered high risk for CABG surgery. Patient seen and examined at [facility] 07/22/23 Patient resting comfortable. Denies chest pains. Impella in place. Turned down to P2 BP stable. Vitals stable. Received 2 units of blood today On room air. Plans for impella removal today. Patient was seen and examined by Dr. Lyon 07/23/23 Patient resting comfortable Status post Impella removal yesterday. Vital signs stable Right hand warm, full movement Palpable radial pulse No motor deficits Surgical site clean and dry. No hematoma Patient was seen and examined by Dr. Lyon Further medical management as per clinical aide: cardiology, nephrology at 1233 at 5784 RPT #:[id number] END OF REPORT [facility] 2023-07-23 08:55:00 [facility] ([facility] Cardiology Progress Note REPORT#:[id number] REPORT STATUS: Signed DATE:07/23/23 TIME: 0855 PATIENT: JOSEPH ROWLEY UNIT #: [id number] ROOM/BED: [place] [address] : 57 AGE: 68 SEX: F ATTEND: Tanvir Prasad MD ADM AUTHOR: Brandy Doyle MD * ALL edits or amendments must be made on the electronic/computer document * Subjective Free Text Subj Notes Free Text Subj Notes: Cardiology progress note Date of service: 07/23/2023 Chief complaint/reason for consult: CAD CHF PCI Patient seen and examined, chart reviewed, questions/concerns addressed with RN. Current medication and vitals reviewed. HPI and interval Hx: Denies any chest pain or shortness of breath. Impella explanted. Subjective: No chest pain or shortness of breath Objective: Vital Signs Date Temp Pulse Resp B/P B/P Mean Pulse Ox FiO2 07/22-07/23 97.5-97.7 64-81 11-26 77-150/38-73 55-88 89-100 GEN: Alert and cooperative, no acute distress. HEENT: NC/AT, EOMI CARD: RRR, normal S1/S2, no R/M/G appreciated LUNGS: CTA w/o added sounds, GBAE. ABD: Soft, nondistended, nontender. Intact BS Assessment, Impression and medical decision making: -Severe multivessel coronary disease with ischemic cardiomyopathy, NSTEMI, chronic combined congestive heart failure status post high risk Impella supported multivessel PCI to left mid LAD/LCx Plan/recommendation: -Hemodynamically stable post Impella explant -Continue with aspirin Brilinta and hypertensive statin -We will initiate GDMT with beta-blockers and PONCHO inhibitors/ARB once blood pressure stable. at 0706 RPT #:[id number] END OF REPORT [facility] 2023-07-22 18:52:00 [id number] [address] PATIENT NAME: JOSEPH ROWLEY ADMIT DATE: 07/12/23 ACCOUNT NO: [id number] [place] [facility] [place] 68 REPORT TYPE: OPERATIVE REPORT SEX: F ADMITTING PHYSICIAN:Tanvir Prasad MD ATTENDING PHYSICIAN:Tanvir Prasad MD OPERATION DATE: 07/22/2023 PREOPERATIVE DIAGNOSES: 1. Coronary artery disease. 2. Peripheral vascular disease. 3. Status post percutaneous coronary intervention with Impella backup via the right axillary artery cutdown. POSTOPERATIVE DIAGNOSES: 1. Coronary artery disease. 2. Peripheral vascular disease. 3. Status post percutaneous coronary intervention with Impella backup via the right axillary artery cutdown. PROCEDURES: 1. Explantation of the Impella. 2. Excision of the chimney graft to the right axillary artery. SURGEON: Miguel Lyon MD PHOTOGRAPHIC PLATEMAKER: Ovidio Byrne. ANESTHESIOLOGIST: Dr. Lizama. ANESTHESIA: General endotracheal anesthesia. ESTIMATED BLOOD LOSS: 5 mL INDICATIONS: Ms. Rowley is a 68-year-old vasculopath with cardiomyopathy and severe coronary artery disease involving the left main. She had Impella backed PCI yesterday. The patient is hemodynamically stable and then decision was made to remove the Impella. The patient was brought to the operating room today for explantation of the Impella. FINDINGS: 1. Impella was discontinued without any hemodynamic compromise. 2. The patient had good pulses in the right radial artery at the end of the case. PROCEDURE IN DETAIL: Ms. Rowley was identified in the preoperative holding area and brought to the operating room and placed supine on the operating table. After induction of general endotracheal anesthesia, the right infraclavicular region was prepped and draped in standard surgical fashion. The Impella was PATIENT NAME: JOSEPH ROWLEY then turned off and pulled back into the chimney graft. Next, the connector was disconnected from the chimney graft and the Impella was taken out completely and handed off the table. Next, a right angle [...] By: Miguel Lyon MD Date Dictated: 07/22/2023 18:52:20 Date Transcribed: 07/23/2023 00:25:59 [facility] Receipt ID: [id number] Authenticated by Frida Lyon MD On 07/28/2023 07:26:31 PM at 0726 PATIENT NAME: JOSEPH ROWLEY [facility] 2023-07-22 18:40:00 [facility] ([facility]) Brief Op Note REPORT#:[id number] REPORT STATUS: Signed DATE:07/22/23 TIME: 1839 PATIENT: JOSEPH ROWLEY UNIT #: [id number] ROOM/BED: [place] [address] : 57 AGE: 68 SEX: F ATTEND: Tanvir Prasad MD ADM AUTHOR: Miguel Lyon MD * ALL edits or amendments must be made on the electronic/computer document * Op/Inv Proc Note - Brief Pre-procedure diagnosis: CAD PVD s/p CP impella via right axillary artery Post-procedure diagnosis: same as pre procedure dx Procedures performed: Explantation of CP Impella Excision of the chimney graft to axillary artery Primary Surgeon: Sonali Shirt Cleaner(s): Ovidio Byrne Findings: Good radual pulses at the end of the case Complications: none Estimated blood loss in ml's: 5 cc Specimens removed/altered: CP Impella at 1845 RPT #:[id number] END OF REPORT [facility] 2023-07-22 13:53:00 [id number] [place] [id number] PATIENT NAME: JOSEPH ROWLEY ADMIT DATE: 07/12/23 ACCOUNT NO: [id number] [place] [facility] [place] 68 REPORT TYPE: eECHOCARDIOGRAM REPORT SEX: F ADMITTING PHYSICIAN:Tanvir Prasad MD ATTENDING PHYSICIAN:Tanvir Prasad MD *[place] [address] Limited Transthoracic Echocardiogram Patient: Joseph Rowley Study Date: 07/22/2023 BP: 88 / 44 Location: [facility] URN: [id number] : 1955 Age: 68 Height: 46 in / 116.8 cm Gender: F Weight: 158.7 lb / 72.1 kg BMI/BSA: 52.8 kg/m 2 / 1.4 m 2 *Ordering Physician: * Darrel Jang *Interpreting Physician: * Ed Delaney MD *Results Technician: * Sulma Parada Indications: IMPELLA PLACEMENT. Study data: Transthoracic echocardiogram, limited study. Procedure: Transthoracic echocardiography was performed. Image quality was adequate. Limited 2D and limited spectral Doppler. Location: Bedside. Patient status: Inpatient. Patient room number: 3306. Study status: Routine. Findings Left ventricle: The cavity size is normal. Wall thickness is normal. Systolic function is mildly to moderately reduced. The estimated ejection fraction is 40-44%. Right ventricle: The cavity size is normal. Systolic function is mildly to moderately reduced. Systolic pressure is moderately to severely increased. PATIENT NAME: JOSEPH ROWLEY Left atrium: The atrium is dilated. Right atrium: The atrium is normal in size. Aorta: Aortic root: The aortic root is normal in size. Aortic valve: The valve is structurally normal. The valve is trileaflet. There is no evidence of stenosis. Mitral valve: The valve is structurally normal. There is no evidence of stenosis. There is mild to moderate regurgitation. Tricuspid valve: The valve is structurally normal. Estimated right ventricular systolic pressure is 66 mmHg. There is moderate-severe regurgitation. Pulmonic valve: The valve is structurally normal. Pericardium: There is no pericardial effusion. Systemic veins: Inferior vena cava: The vessel is normal in size. Inferior vena cava diameter measures 16 mm. Measurements Left ventricle Value [...] moderately reduced. The estimated ejection fraction is 40-44%. 2. Right ventricle: Systolic function is mildly to moderately reduced. Systolic pressure is moderately to severely increased. 3. Left atrium: The atrium is dilated. 4. Mitral valve: There is mild to moderate regurgitation. 5. Tricuspid valve: There is moderate-severe regurgitation. Prepared and electronically signed by Ed Delaney MD 07/22/2023 13:52 at 1353 PATIENT NAME: JOSEPH ROWLEY [facility] 2023-07-22 13:46:00 [facility] Cardiology Progress Note REPORT#:[id number] REPORT STATUS: Signed DATE:07/22/23 TIME: 1346 PATIENT: JOSEPH ROWLEY UNIT #: [id number] ROOM/BED: [place] [id number] : 57 AGE: 68 SEX: F ATTEND: Tanvir Prasad MD ADM AUTHOR: Yue Barragan AGACNP * ALL edits or amendments must be made on the electronic/computer document * See Addendum Yue Barragan 07/22/23 1346: Subjective Comments: Doing well post PCI. Objective General VS/I O: 24 hour I O ending at 0700: 07/22 0700 07/21 1900 Intake Total 350 Output Total Balance 350 Intake, 350 Packed Cells Patient 72.3 kg Weight Weight Bed scale Measurement Method Vital Signs: Date Time Temp Pulse Resp B/P B/P Pulse O2 O2 Flow FiO2 Mean Ox Delivery Rate 07/22 1100 71 25 98/42 60 93 07/22 1030 71 17 137/52 76 100 07/22 1009 96 Nasal 4 cannula 07/22 1000 67 16 132/50 73 100 07/22 0930 67 20 150/64 88 100 07/22 0900 66 15 145/64 87 100 09/08 [...] 27 117/65 80 100 09/07 1999 4 09/07 1999 73 26 118/69 83 100 09/07 1999 96 Nasal 4 36 cannula 09/07 1930 72 27 114/66 79 100 09/07 1900 71 25 103/66 75 100 09/07 1822 80 21 107/67 79 100 / 1816 92/65 73 / 1816 81 30 144/87 97 100 PATIENT WEIGHT: Weight (lb): 159 Weight (oz): 6.31 Weight (kg): 72.300 Medications: Active Meds + DC'd Last 24 Hrs Dextrose/Water (DEXTROSE 10% IN WATER) 125 ML [...] IV (CKD) Dextrose/Water (DEXTROSE 5% WATER) 1,000 ML Fentanyl Citrate (SUBLIMAZE) 25 MCG Q2H PRN [...] 0.9%) 250 ML ASDIR PRN IV Physical Exam General appearance: alert, awake Neck: non-tender, no JVD Cardiovascular: CV assessment: regular rate and rhythm Murmur assessment: heart murmur Respiratory: on oxygen, no distress Abdomen: soft, non-tender, normal bowel sounds, no distention Genitourinary: no flank pain, no urinary catheter Upper extremity: UE assessment: Impella in place Lower extremity: LE assessment: abnormal pedal pulse, abnormal peripheral pulse Musculoskeletal: normal inspection Neuro/DEMURRAGE AGENT: alert, oriented X 3, normal speech Skin: right heel ulcer Ulcer: Type/cause: diabetic (right heel ulcer), arterial Location: foot, heel Laterality: bilateral Psychiatry: normal affect, normal mood Results Findings/Data: Laboratory Tests 07/21 1604 Blood Gas Puncture Site [...] 2.6 mg/dL) 1.84 1.88 Laboratory Tests 07/22 0400 0018 2233 2024 Coagulation INR (0.8 - 1.2) 1.7 H PTT (Ralf) (25.0 - 39.5 Seconds) 29.7 32.6 34.4 55.1 H 126.9 H PT Patient/Control Mix (9.3 - 12.9 19.4 H SECONDS) 07/21 07/21 07/21 07/21 07/21 1557 1515 1503 1445 1431 Coagulation Activated Coag Time (74 - 137 SEC) 287 H 329 H 299 H 263 H 203 H Laboratory Tests 07/220 2025 1803 Hematology WBC (4.5 - 11.0 [...] - 32.0 %) 9.4 L 9.8 L [place] % (Auto) (4.8 - 9.0 %) 9.8 H 9.3 H Eos % (Auto) (0.3 - 3.7 %) 1.8 1.1 Baso % (Auto) (0.0 - 2.0 %) 0.2 0.1 Neut # (Auto) (2.0 - 7.6 x10 3/uL) 9.78 H 10.56 H Lymph # (Auto) (1.0 - 3.8 x10 3/uL) 1.18 1.31 [place] # (Auto) (0.1 - 0.8 x10 3/uL) [...] (1.6 - 2.6 mg/dL) 1.84 1.88 Radiology data: Recent Impressions: RADIOLOGY - XR CHEST 1 V 07/21 2035 Report Impression - Status: SIGNED Entered: 07/21/20232155 IMPRESSION: As above. Impression By: [email or web address] - Jorgito Novak M.D. Results: labs reviewed, vital signs reviewed, rhythm personally rev'd Telemetry Interpretation: sinus rhythm Diagnosis, Assessment Plan Plan discussed with: patient, family, collaborating MD, nurse Free Text DxA P Notes Free Text DxA P Notes: 68 YO female with MHx of IDDM on insulin pump, nonhealing foot ulcers, ESRD on HD MWF, recent diagnosis of severe cardiomyopathy, HFrEF with LVEF of 25% as well as severe MR. She had elective coronary and peripheral angiogram today, which revealed multivessel CAD and severe bilateral PAD. 1. Multivessel CAD * S/p Impella protected PCI to Lcx, then to the mid LAD and then proximal LAD to the left main using mini crush technique with excellent angiographic results. * wean down Impella to P2. Plan to DC Impella today by CT surgery * Patient is doing well, hemodynamically stable, no pressors needed * anemic hgb 5.8 up to 8.7 after 2 units PRBC * continue Plavix, ASA, statin, will add BB later if BP can handle it * limited echo today 2. Severe PAD with nonhealing foot ulcers * Vascular surgery recommendation noted 3. Mitral regurgitation * moderate to severe MR on TTE with contrast * JULIA reviewed 4. Severe ischemic cardiomyopathy * volume management per HD * on midodrine d/t chronic hypotension * no ACEI or ARB d/t chronic hypotension requiring midodrine * lifevest ordered, will repeat echo post PCI , if LVEF >35% then she does not need lifevest 5. ESRD - on HD * nephrology following 6. IDDM * per primary team Dr. Edgard Umana covering this weekend. MDM by Dr. Pak. Kimberly Pak 07/23/23 1222: Attestations Physician Attestation Agree w/findings plan: I have seen and examined the pt, I Agree with the findings and plan as documented by Yue Barragan. S/p PCI to LM, LAD and LCx.Impella CP through axillary left in place, plan to go to OR today for Impella removal. Switch Plavix to Brilinta. contiue ASA. discussed case with VAscular surgery and plan for surgical revascularization in 2 -3 weeks likely as out pt. at 1408 at 1225 Addendum 1: 07/22/232052 by Yue Barragan switch Plavix to Brilinta 90 mg BID. Patient was loaded with Brilinta 180 mg last night. at 2054 RPT #:[id number] END OF REPORT [facility] 2023-07-22 13:33:00 [facility] ([facility]) Cardiothoracic Surgery Prog REPORT#:[id number] REPORT STATUS: Signed REPORT INITIALIZATION DATE:07/22/23 TIME: 1333 PATIENT: JOSEPH ROWLEY UNIT #: [id number] ROOM/BED: [place] [address] : 57 AGE: 68 SEX: F ATTEND: Tanvir Prasad MD ADM AUTHOR: Trudy Colindres Physic REPT SERVICE DT/TIME: 07/22/23 1333 * ALL edits or amendments must be made on the electronic/computer document * Subjective Chief complaint: CAD, eval for CABG PVD nonhealing lower extremity ulcers PCI with Impella yesterday Review of Systems Constitutional: Denies: fever, generalized weakness. Skin: Denies: rash, swelling. Allergy/Immun: Denies: itching, rhinorrhea. Eyes: Denies: itching, diplopia. Respiratory: Denies: VICENTE (dyspnea on exertion), hemoptysis. Cardiovascular: Denies: VICENTE (dyspnea on exertion), edema. GI: Denies: constipation, diarrhea. : Denies: dysuria, hematuria. Musculoskeletal: Denies: joint pain, joint swelling. Heme: Denies: bleeding, bruising. Endocrine: Denies: polydipsia, polyuria. Neuro: Denies: confusion, dizziness. All systems rev neg: except as marked Objective General VS/I O Last Documented: Result Date Time Pulse Ox 93 [...] scale Measurement Method PATIENT WEIGHT: Weight (lb): 159 Weight (oz): 6.31 Weight (kg): 72.300 Physical Exam General appearance: alert, awake, oriented HEENT: anicteric, mucosal membranes moist Cardiovascular: BP/pulses equal bilat., regular rate rhythm Respiratory: aerating well, clear to auscultation Abdomen: soft, non-tender Extremities: dry, moves all Musculoskeletal: full range of motion, painless range of motion Neuro/DEMURRAGE AGENT: alert, oriented X 3 Skin: dry, intact Ulcer: Type/cause: diabetic (right heel ulcer), arterial Location: foot, heel Laterality: bilateral Diagnosis, Assessment Plan Hospital course to date: This is a very pleasant 68-year-old female with a past medical history of type 1 diabetes from the age of 46 years old, end-stage renal disease, on dialysis since July 2022, hypertension who presented to her research epidemiologist for evaluation of bilateral nonhealing ulcerations of her bilateral heels for the past 3 months, and shortness of breath with exertion. Her last echocardiogram was completed with her research epidemiologist showing an EF 20-25% with mild LVH, severe global hypokinesis, mildly dilated left atrium with moderate aortic sclerosis without stenosis, mitral valve leaflets mildly thickened with severe MR, mild to moderate TR, moderate pulmonary hypertension with an RV systolic pressure 62 mmHg. Patient underwent left heart catheterization today and was found to have severe three-vessel coronary artery disease, with severe bilateral occluded SFAs of the lower extremity. CV surgery consulted for evaluation for coronary artery bypass graft surgery Assessment/plan 1. Severe three-vessel CAD 2. Type I diabetic 3. Severe peripheral vascular disease 4. Nonhealing bilateral heel ulcerations 5. Hypertension 6. Hyperlipidemia 7. CHF Documented EF 20-25% in the outpatient setting 04/05 8. Mitral valve regurgitation Noted to be severe [...] atrial pressure. Average global longitudinal strain is -5.7. 2. Right ventricle: Systolic function is mildly to moderately reduced. Systolic pressure is severely increased. 3. Left atrium: The atrium is dilated. The end-systolic volume index (A-L) is 50 ml/m 2. 4. Mitral valve: The annulus is calcified. Prolapse cannot be excluded. There is moderate to severe regurgitation, directed posteriorly and along the left atrial wall. The effective regurgitant orifice (PISA) is 0.39 cm 2. The regurgitant volume (PISA) is 46 ml. 5. Tricuspid valve: Estimated right ventricular systolic pressure is 76 mmHg. There is moderate-severe regurgitation directed toward the septum. 6. Pericardium, extracardiac: There is a large left pleural effusion. 7. Inferior vena cava: The vessel is dilated. The respirophasic diameter changes are blunted (< 50%). Inferior vena cava diameter measures 2.2 cm. 07/13/23 [place] resting comfortable, Denies any new complaints. On room air. Sinus rhythm. AAO x 3 Cardiac workup still underway. CTA head, abdomena nd pelvis ordered by cardiology. Patient will be presented in the high risk cardiology conference. Further recs to follow. 07/14/23 Patient resting comfortable, Denies chest pains Complains of bilateral heel ulcerations Sinus rhythm On room air Carotid Doppler showed no carotid artery stenosis Patient is considered high risk due to multiple comorbidities, ESRD, CHF, DM Patient will be discussed in the high risk conference Further recommendations to Patient was seen with Dr. Sousa 07/15/23 Patient resting comfortable Denies complaints, denies chest pains Remains on room air Sinus rhythm Patient underwent viability study today. Pending results On dialysis, followed by renal Patient STS score estimated at 50% Further recommendations to follow 07/16/23 Patient resting comfortable, denies chest pain No new complaints Remains on room air Sinus rhythm Pending viability study results. Dialysis per renal. Patient will be discussed in the high risk conference next week. 07/17/23 Patient resting comfortable, No complaints. Remains sinus rhythm. on room air. Viability study completed EF 28% Dialysis as per renal Medical management as per cardiology Patient will be discussed in high risk conference next week. 07/18/23 Patient resting comfortable Denies chest pains On room air Dialysis planned for today Remains sinus rhythm Anemia managed per nephrology Patient will be discussed in the high risk cardiology conference Further recommendations to follow 07/19/23 Patient resting comfortable. Denies chest pains. AAO x 3 on room air. Dialysis yesterday. Free Text A P: This is a very pleasant 68-year-old female with a past medical history of type 1 diabetes from the age of 46 years old, end-stage renal disease, on dialysis since July 2022, hypertension who presented to her research epidemiologist for evaluation of bilateral nonhealing ulcerations of her bilateral heels for the past 3 months, and shortness of breath with exertion. Her last echocardiogram was completed with her research epidemiologist showing an EF 20-25% with mild LVH, severe global hypokinesis, mildly dilated left atrium with moderate aortic sclerosis without stenosis, mitral valve leaflets mildly thickened with severe MR, mild to moderate TR, moderate pulmonary hypertension with an RV systolic pressure 62 mmHg. Patient underwent left heart catheterization today and was found to have severe three-vessel coronary artery disease, with severe bilateral occluded SFAs of the lower extremity. CV surgery consulted for evaluation for coronary artery bypass graft surgery Assessment/plan 1. Severe three-vessel CAD 2. Type I diabetic 3. Severe peripheral vascular disease 4. Nonhealing bilateral heel ulcerations 5. Hypertension 6. Hyperlipidemia 7. CHF Documented EF 20-25% in the outpatient setting 04/05 8. Mitral valve regurgitation Noted to be severe [...] atrial pressure. Average global longitudinal strain is -5.7. 2. Right ventricle: Systolic function is mildly to moderately reduced. Systolic pressure is severely increased. 3. Left atrium: The atrium is dilated. The end-systolic volume index (A-L) is 50 ml/m 2. 4. Mitral valve: The annulus is calcified. Prolapse cannot be excluded. There is moderate to severe regurgitation, directed posteriorly and along the left atrial wall. The effective regurgitant orifice (PISA) is 0.39 cm 2. The regurgitant volume (PISA) is 46 ml. 5. Tricuspid valve: Estimated right ventricular systolic pressure is 76 mmHg. There is moderate-severe regurgitation directed toward the septum. 6. Pericardium, extracardiac: There is a large left pleural effusion. 7. Inferior vena cava: The vessel is dilated. The respirophasic diameter changes are blunted (< 50%). Inferior vena cava diameter measures 2.2 cm. 07/13/23 [place] resting comfortable, Denies any new complaints. On room air. Sinus rhythm. AAO x 3 Cardiac workup still underway. CTA head, abdomena nd pelvis ordered by cardiology. Patient will be presented in the high risk cardiology conference. Further recs to follow. 07/14/23 Patient resting comfortable, Denies chest pains Complains of bilateral heel ulcerations Sinus rhythm On room air Carotid Doppler showed no carotid artery stenosis Patient is considered high risk due to multiple comorbidities, ESRD, CHF, DM Patient will be discussed in the high risk conference Further recommendations to Patient was seen with Dr. Sousa 07/15/23 Patient resting comfortable Denies complaints, denies chest pains Remains on room air Sinus rhythm Patient underwent viability study today. Pending results On dialysis, followed by renal Patient STS score estimated at 50% Further recommendations to follow 07/16/23 Patient resting comfortable, denies chest pain No new complaints Remains on room air Sinus rhythm Pending viability study results. Dialysis per renal. Patient will be discussed in the high risk conference next week. 07/17/23 Patient resting comfortable, No complaints. Remains sinus rhythm. on room air. Viability study completed EF 28% Dialysis as per renal Medical management as per cardiology Patient will be discussed in high risk conference next week. 07/18/23 Patient resting comfortable Denies chest pains On room air Dialysis planned for today Remains sinus rhythm Anemia managed per nephrology Patient will be discussed in the high risk cardiology conference Further recommendations to follow 07/19/23 Patient resting comfortable Denies chest pains Complains of heel pains On room air Sinus rhythm Patient was seen and examined with Dr. Lyon. Patient is high risk for surgical intervention. Dr. Lyon will discuss with cardiology and patient will be discussed in the high risk cardiology conference this week. 07/20/23 Patient resting comfortable No new complaints On room air Sinus rhythm Bilateral heel ulcers. Vascular following Patient will be discussed in the high risk cardiology conference on Tuesday Patient seen and examined with Dr. Lyon 07/21/23 Patient resting comfortable. Denies chest pains. ON room air. sinus rhythm. Wound care follwoing bilateral heal ulcers. Vascular follwoing. Planned for possible PCI today with Impella planned for today. CV surgery will be on standby Patient considered high risk for CABG surgery. Patient seen and examined at [facility] 07/22/23 Patient resting comfortable. Denies chest pains. Impella in place. Turned down to P2 BP stable. Vitals stable. Received 2 units of blood today On room air. Plans for impella removal today. Patient was seen and examined by Dr. Lyon Consultants: cardiology, nephrology at 1336 at 1737 RPT #:[id number] END OF REPORT [facility] 2023-07-22 12:10:00 [facility] ([facility]) Critical Care Progress Note REPORT#:[id number] REPORT STATUS: Signed DATE:07/22/23 TIME: 1210 PATIENT: JOSEPH ROWLEY UNIT #: [id number] ROOM/BED: [place] [address] : 57 AGE: 68 SEX: F ATTEND: Tanvir Prasad MD ADM AUTHOR: Fanny Chawla * ALL edits or amendments must be made on the electronic/computer document * Subjective Chief complaint: S/p PCI with impella. HPI: Joseph Mccullough is a 68-year-old female with a DM1, HTN, severe cardiomyopathy, HF with EF of 25% as well as severe MR, ESRD, on dialysis since July 2022, who presented to her research epidemiologist for evaluation of bilateral nonhealing ulcerations of [...] 78. Reports pain to surgical site. Objective General VS/I O Last Documented: Result Date Time Pulse Ox 93 [...] scale Measurement Method PATIENT WEIGHT: Weight (lb): 159 Weight (oz): 6.31 Weight (kg): 72.300 Medications: Active Meds + DC'd Last 24 Hrs Clopidogrel Bisulfate (Plavix) 75 MG DAILY PO [...] IV (CKD) Dextrose/Water (DEXTROSE 5% WATER) 1,000 ML Fentanyl Citrate (SUBLIMAZE) 25 MCG Q2H PRN [...] 0.9%) 250 ML ASDIR PRN IV Physical Exam Head/eyes: atraumatic, clear cornea, normocephalic, bilateral eye surgery ENT: dry mucosal membrane, poor dentition Neck: full range of motion, non-tender, no JVD, no masses or swelling Cardiovascular: decreased cap refill, pedal edema, normal heart sounds, regular rate and rhythm, normal S1/S2, no ectopy Respiratory: decreased breath sounds, symmetric expansion, no distress Abdomen: soft, non-tender, normal bowel sounds Genitourinary: no bladder distention, no flank pain, DTV Extremities: abnormal capillary refill, decreased range of motion, edema, pedal pulses Musculoskeletal decreased ROM, no muscle spasm Neuro/DEMURRAGE AGENT: alert, no motor deficits, no sensory deficits Skin: abnormal color, normal temperature, no rash Ulcer: Type/cause: diabetic (right heel ulcer), arterial Location: foot, heel Laterality: bilateral Wound/incision: Location: Right axillary impella site Psychiatry: unable to evaluate Results Findings/data: Laboratory Tests 07/21 1604 Blood Gas Puncture Site [...] 39.5 Seconds) 29.7 32.6 34.4 55.1 H 07/21 07/21 07/21 07/21 2024 1557 1515 1503 Coagulation INR (0.8 - 1.2) 1.7 H PTT (Rush) (25.0 - 39.5 Seconds) 126.9 H PT Patient/Control Mix (9.3 - 12.9 SECONDS) 19.4 H Activated Coag Time (74 - 137 SEC) 287 H 329 H 299 H 07/21 07/21 1445 1431 Coagulation Activated Coag Time (74 - 137 SEC) 263 H 203 H Laboratory Tests 07/220 2025 1803 Hematology WBC (4.5 - 11.0 [...] - 32.0 %) 9.4 L 9.8 L [place] % (Auto) (4.8 - 9.0 %) 9.8 H 9.3 H Eos % (Auto) (0.3 - 3.7 %) 1.8 1.1 Baso % (Auto) (0.0 - 2.0 %) 0.2 0.1 Neut # (Auto) (2.0 - 7.6 x10 3/uL) 9.78 H 10.56 H Lymph # (Auto) (1.0 - 3.8 x10 3/uL) 1.18 1.31 [place] # (Auto) (0.1 - 0.8 x10 3/uL) [...] 3/uL) 0.05 0.13 H Laboratory Tests 07/22/23 0401: [Embedded Image Not Available] 07/22/23 0400: [Embedded Image Not Available] 07/21/232024: [Embedded Image Not Available] 07/21/23 1803: [Embedded Image Not Available] Radiology data Recent Impressions: RADIOLOGY - XR CHEST 1 V 07/21 2035 Report Impression - Status: SIGNED Entered: 07/21/20232155 IMPRESSION: As above. Impression By: Rolly - Jorgito Novak M.D. Results: labs reviewed, vital signs reviewed, rhythm personally rev'd, x-ray personally reviewed, current med profile rev'd Treatment Prophylaxis Treatment Prophylaxis Oxygen: nasal cannula Lines: arterial (Right radial), CVC (Right chest), Impella (R axillary) CVC/PICC documentation: The data below has been imported from nursing documentation. Any exceptions have been noted below under Provider comments. CVC/PICC insertion date/time: CVC multi lumen double Internal jugular Right Inserted 07/12/23535 Dialysis catheter double Chest Right Inserted 07/12/23535 Provider comments on imported nursing data: [] Diagnosis, Assessment Plan Free text A P: Joseph Mccullough is a 68-year-old female with a DM1, HTN, severe cardiomyopathy, HF with EF of 25% as well as severe MR, ESRD, on dialysis since July 2022, who presented to her research epidemiologist for evaluation of bilateral nonhealing ulcerations of [...] to surgical site. 07/22- Seen and examined. Plan: Neuro intact. Pain control- tramadol, fentanyl S/p PCI to LAD, L main and Cirx, impella support P2. 2.2L/min Patient will return to OR today for removal of impella Monitor site for bleeding, hematoma formation. Sand bag applied to site per . Hemoglobin dropped below 7, she is getting 2 units PRBCs with HD. Holding heparin infusion Check hgb post transfusion ECHO shows- Left ventricle ejection fraction is estimated 35%. There is an IMPELLA catheter noted in the left ventricle. Catheter inlet area is approximately 3.3 to 3.5 cm below the aortic valve. Stable b/p. As needed IVF/Colloid resuscitation, latest lactate 1.5 Plavix, ASA per surgery Statin Monitor renal function, she is on HD, renal on board Hyponatremic- ranging from 128-133, monitor NPO at present for procedure. Patient has own insulin pump She received 5-day course of rocephin for Klebsiella Pneumoniae PT/OT and wound care. DVT ppx: Holding d/t drop in hemoglobin Dispo: CCU. Patient is a full code. I spent 35 minutes of critical care reviewing labs, imaging and discussing plan of care with ICC team. Consultants: cardiology, nephrology Code status: full code Plan discussed with: patient, family, collaborating MD, consultants, nurse, interdisc care team, pharmacy/pharmacist at 1232 RPT #:[id number] END OF REPORT [facility] 2023-07-22 11:55:00 [facility] ([facility]) Hospitalist Progress Note REPORT#:[id number] REPORT STATUS: Signed DATE:07/22/23 TIME: 1155 PATIENT: JOSEPH ROWLEY UNIT #: [id number] ROOM/BED: [place] [address] : 57 AGE: 68 SEX: F ATTEND: Tanvir Prasad MD ADM AUTHOR: Violetta Davis MD * ALL edits or amendments must be made on the electronic/computer document * Subjective Chief complaint: she is seen in the ccu. she is on HD and blood transfusion in the room . she had PCI yesterday post PCI and impella HPI: Patient had a fever spike yesterday was started on empiric antibiotics with UA abnormal system of UTI she is less confused and more alert per patient/family at bedside Review of Systems Constitutional: Reports: generalized weakness. Respiratory: Denies: SOB. Cardiovascular: Denies: chest pain, palpitations. GI: Denies: nausea, vomiting. : Denies: hematuria. Neuro: Denies: confusion, dizziness. Objective General VS/I O: Vital Signs: Date Time Temp Pulse Resp B/P B/P Pulse O2 O2 Flow FiO2 Mean Ox Delivery Rate 09/08 1100 71 25 98/42 60 93 09/08 [...] 09/07 2030 72 27 117/65 80 100 07/21 2000 4 07/21 2000 73 26 118/69 83 100 07/21 2000 96 Nasal 4 36 cannula 07/21 193 72 27 114/66 79 100 07/21 1900 71 25 103/66 75 100 07/21 1822 80 21 107/67 79 100 07/216 92/65 73 07/21 181 81 30 144/87 97 100 24 hour I O ending at 0700: 07/22 0707/21 190 Intake Total 350 Output Total Balance 350 Intake, 350 Packed Cells Patient 72.3 kg Weight Weight Bed scale Measurement Method PATIENT WEIGHT: Weight (lb): 159 Weight (oz): 6.31 Weight (kg): 72.300 Medications: Active Meds + DC'd Last 24 Hrs Clopidogrel Bisulfate (Plavix) 75 MG DAILY PO [...] IV (CKD) Dextrose/Water (DEXTROSE 5% WATER) 1,000 ML Fentanyl Citrate (SUBLIMAZE) 25 MCG Q2H PRN [...] Chloride (HEPARIN 1,000 UNITS/NS 500ML) 500 ML .STK- MED ONE IV (DC) Iopamidol (ISOVUE-370 100ML) 0 [...] 0.9%) 250 ML ASDIR PRN IV Physical Exam General appearance: alert, awake, oriented Head/Eyes: atraumatic, normal conjunctiva/sclera, normal eyelids/periorb. Neck: full range of motion Cardiovascular: normal capillary refill, normal heart sounds, regular rate rhythm Respiratory: aerating well, clear to auscultation, symmetric expansion, no distress Abdomen: non-tender, normal bowel sounds, soft, no distention Extremities: no edema Neuro/DEMURRAGE AGENT: alert, oriented X 3 Ulcer: Type/cause: diabetic (right heel ulcer), arterial Location: foot, heel Laterality: bilateral Psychiatry: depressed Results Findings/Data: Laboratory Tests 07/21 1604 Blood Gas Puncture Site [...] 1.88 Laboratory Tests 07/2216 0400 0018 2233 2024 Coagulation INR (0.8 - 1.2) 1.7 H PTT (Ralf) (25.0 - 39.5 Seconds) 29.7 32.6 34.4 55.1 H 126.9 H PT Patient/Control Mix (9.3 - 12.9 19.4 H SECONDS) 07/21 07/21 07/21 07/21 07/21 1557 1515 1503 1445 1431 Coagulation Activated Coag Time (74 - 137 SEC) 287 H 329 H 299 H 263 H 203 H Laboratory Tests 07/220 2025 1803 Hematology WBC (4.5 - 11.0 [...] - 32.0 %) 9.4 L 9.8 L [place] % (Auto) (4.8 - 9.0 %) 9.8 H 9.3 H Eos % (Auto) (0.3 - 3.7 %) 1.8 1.1 Baso % (Auto) (0.0 - 2.0 %) 0.2 0.1 Neut # (Auto) (2.0 - 7.6 x10 3/uL) 9.78 H 10.56 H Lymph # (Auto) (1.0 - 3.8 x10 3/uL) 1.18 1.31 [place] # (Auto) (0.1 - 0.8 x10 3/uL) [...] 0.1 x10 3/uL) 0.05 0.13 H Radiology data: Recent Impressions: RADIOLOGY - XR CHEST 1 V 07/21 2035 Report Impression - Status: SIGNED Entered: 07/21/20232155 IMPRESSION: As above. Impression By: BeanHVAmber - Jorgito Novak M.D. Diagnosis, Assessment Plan Consultants: cardiology, nephrology Free Text DxA P Notes Free text DxA P notes: 68-year-old female with a past medical history of type 1 diabetes from the age of 46 years old, end-stage renal disease, on dialysis since July 2022, hypertension who presented to her research epidemiologist for evaluation of bilateral nonhealing ulcerations of her bilateral heels for the past 3 months, and shortness of breath with exertion. Left heart catheterization showed significant for severe three-vessel coronary artery disease with severe bilateral occluded SFAs of the lower extremity. Issues as below. Suspected urinary tract infection Severe three-vessel CAD Severe peripheral vascular disease Diabetes mellitus End-stage renal failure on hemodialysis Nonhealing bilateral heel ulcerations Hypertension Hyperlipidemia CHF Mitral valve regurgitation Plan and recommendations Patient admitted into medicine Vital signs every 4 Patient Antiplatelets and statin per cardiology Seen by vascular surgery" CT surgery. Nephrology for hemodialysis. Will do basic lab work include CBC BMP now. Patient is not having significant hypoxia at this time DVT prophylaxis Restart home medications Discussed management plan in detail with patient's family. 07/13/[address] surgery and vascular surgery plans Hemodialysis was done yesterday Hemodialysis per nephrology Monitor renal function Blood sugar control with insulin pump. 07/14/2023 Fever spike last night blood cultures on empiric antibiotics for possible UTI Antibiotics changed Follow-up on cultures Follow-up on cardiothoracic surgery and oncology recommendations plan to have discussion tomorrow Blood sugars controlled Lab work otherwise stable DVT prophylaxis Hemodialysis per nephrology 07/15- take over care from [...] to heels, increase midodrine to 10 mg 3 times daily in view of persistent hypotension. 07/18 [...] treatment 07/21- she is seen in the cathode washer --PCI /impella -- afternoon -- lab am [...] -- case is discussed with nurse at 1648 RPT #:[id number] END OF REPORT [facility] 2023-07-22 10:30:00 [facility] ([facility] Nephrology Progress Note REPORT#:[id number] REPORT STATUS: Signed DATE:07/22/23 TIME: 1030 PATIENT: JOSEPH ROWLEY UNIT #: [id number] ROOM/BED: [place] [address] : 57 AGE: 68 SEX: F ATTEND: Tanvir Prasad MD ADM AUTHOR: Winnie Noyola MD * ALL edits or amendments must be made on the electronic/computer document * Subjective Chief complaint: follow up of ESRD Comments: Had PCI yesterday, also has intra-aortic balloon pump on. Currently in CCU. Had dialysis earlier today with 2.3 L UF. Had 2 units of PRBC as had acute anemia post angiogram. Objective General VS/I O: Vital Signs: Date Time Temp Pulse Resp B/P B/P Pulse O2 O2 Flow FiO2 Mean Ox Delivery Rate 07/22 1009 96 Nasal 4 cannula 07/22 841 97.5 66 22 120/57 100 07/22 0817 97.5 63 22 118/51 94 07/22 0803 97.6 63 20 119/57 100 07/22 0645 72 20 128/60 80 100 07/22 0630 74 20 130/61 82 100 07/22 0615 72 15 114/53 72 100 09/08 [...] 27 117/65 80 100 09/07 1999 4 09/07 1999 73 26 118/69 83 [...] scale Measurement Method PATIENT WEIGHT: Weight (lb): 159 Weight (oz): 6.31 Weight (kg): 72.300 Medications Active Meds + DC'd Last 24 Hrs Clopidogrel Bisulfate (Plavix) 75 MG DAILY PO [...] IV (CKD) Dextrose/Water (DEXTROSE 5% WATER) 1,000 ML Fentanyl Citrate (SUBLIMAZE) 25 MCG Q2H PRN [...] Chloride (HEPARIN 1,000 UNITS/NS 500ML) 500 ML .STK- MED ONE IV (DC) Iopamidol (ISOVUE-370 100ML) 0 .STK-MED ONE IV (DC) Epinephrine HCl (EPINEPHrine 4 mg/D5W 250 mL) 250 ML .STK-MED ONE IV (DC ) Norepinephrine Bitartrate (NOREPINEPHRINE 8 MG/NS 250 ML) 250 ML .STK-MED ONE IV (DC) Etomidate (AMIDATE) 0 .STK-MED ONE IV (DC) Rocuronium [place] (ZEMURON) 0 .STK-MED ONE IV (DC) Dorzolamide [...] 0.9%) 250 ML ASDIR PRN IV Physical Exam General appearance: alert, awake, oriented Head/eyes: atraumatic, normocephalic, PERRLA ENT: moist mucous membranes Neck: no JVD, no lymphadenopathy, no masses or swelling Cardiovascular: normal heart sounds, regular rate and rhythm, no murmur, no rub Respiratory: aerating well, clear to auscultation, normal breath sounds, no distress Abdomen: non-tender, normal bowel sounds, soft, no rebound Genitourinary: no bladder distention, no flank pain, no urinary catheter Extremities: pitting edema, no gangrene Neuro/DEMURRAGE AGENT: alert, oriented X 3, CN II-XII intact, normal speech Ulcer: Type/cause: diabetic (right heel ulcer), arterial Location: foot, heel Laterality: bilateral Results Findings/Data: Laboratory Tests 07/21 1604 Blood Gas Puncture Site [...] 07/21 07/21 07/21 0401 1957 1803 1803 1046 Chemistry Sodium (134 - 147 mEq/L) 129 [...] 07/22 07/21 07/21 0916 0400 0018 2233 2024 Coagulation INR (0.8 - 1.2) 1.7 H PTT (Ralf) (25.0 - 39.5 Seconds) 29.7 32.6 34.4 55.1 H 126.9 H PT Patient/Control Mix (9.3 - 12.9 19.4 H SECONDS) 07/21 07/21 07/21 07/21 07/21 1557 1515 [...] - 32.0 %) 9.4 L 9.8 L [place] % (Auto) (4.8 - 9.0 %) 9.8 H 9.3 H Eos % (Auto) (0.3 - 3.7 %) 1.8 1.1 Baso % (Auto) (0.0 - 2.0 %) 0.2 0.1 Neut # (Auto) (2.0 - 7.6 x10 3/uL) 9.78 H 10.56 H Lymph # (Auto) (1.0 - 3.8 x10 3/uL) 1.18 1.31 [place] # (Auto) (0.1 - 0.8 x10 3/uL) [...] 0.1 x10 3/uL) 0.05 0.13 H Radiology data: Recent Impressions: RADIOLOGY - XR CHEST 1 V 07/21 2035 Report Impression - Status: SIGNED Entered: 07/21/20232155 The ventricular assist device noted. The right IJ CVC tip overlies the cavoatrial junction. No pneumothorax. Trace bilateral pleural effusions. Mild central pulmonary edema. The mediastinal contours are unremarkable/unchanged. No acute osseous findings are present. IMPRESSION: As above. Impression By: Rolly - Jorgito Novak M.D. Diagnosis, Assessment Plan Free Text A P: 1. ESRD continue with dialysis Tuesday. Status post HD in a.m. 2. Hypotension on midodrine 3. Coronary artery [...] with brother at bedside at 1432 RPT #:[id number] END OF REPORT [facility] 2023-07-22 06:26:00 [id number] [place] [address] PATIENT NAME: JOSEPH ROWLEY ADMIT DATE: 07/12/23 ACCOUNT NO: [id number] [place] [facility] [place] 68 REPORT TYPE: eELECTROCARDIOGRAM REPORT SEX: F ADMITTING PHYSICIAN:Tanvir Prasad MD ATTENDING PHYSICIAN:Tanvir Prasad MD Order: [id number] Test Reason : S/P PCI Test Date/Time Stamp: TueJul 22 2023 06:26:26 Blood Pressure : / mmHG Vent. Rate : 073 BPM Atrial Rate : 073 BPM P-R Int : 144 ms QRS Dur : 088 ms QT Int : 372 ms P-R-T Axes : 056 061 202 degrees QTc Int : 409 ms Normal sinus rhythm Low voltage QRS ST and T wave abnormality, consider anterolateral ischemia Abnormal ECG When compared with ECG of 21-JUL-2023 18:29, No significant change was found Confirmed by FAREED HEARN MD ([id number]) on 07/22/2023 6:52:45 PM Referred By: Jaxson Grover Confirmed by:FAREED HEARN MD at 4022 PATIENT NAME: JOSEPH ROWLEY [facility] 2023-07-21 22:09:00 [id number] [address] PATIENT NAME: JOSEPH ROWLEY ADMIT DATE: 07/12/23 ACCOUNT NO: [id number] ROOM NO: [id number] AGE: 68 REPORT TYPE: CARDIAC CATHETERIZATION REPORT SEX: F ADMITTING PHYSICIAN:Tanvir Prasad MD ATTENDING PHYSICIAN:Tanvir Prasad MD PROCEDURE DATE: 07/21/2023 INDICATION FOR PROCEDURE: Acute decompensated heart failure, severe 3-vessel disease, severe ischemic cardiomyopathy and severe mitral regurgitation. The patient was evaluated by CT surgery and was deemed at prohibitive risk for coronary artery bypass graft with STS score of 50. The patient has no percutaneous option from the groin as she has occluded bilateral iliac arteries, common femoral arteries, and . The option of medical therapy versus high-risk percutaneous coronary intervention with Impella support via axillary access with CT Surgery cutdown and chimney placement was discussed with the patient and her family and with the heart team and the plan was to proceed with that. Risks and benefits explained to the patient and her family and they were fully aware and they consented to proceed. They understand the risk of limb ischemia, stroke, [place], and/or . PROCEDURES PERFORMED: 1. Surgical cutdown chimney graft into the right subclavian that was obtained by CT surgery. Please refer to their report for full details. 2. Insertion of Impella cp into the left ventricle. 3. Percutaneous coronary intervention with drug-eluting stents into the left circumflex. 4. Percutaneous coronary intervention with drug-eluting stent into mid left anterior descending; Synergy 2.5 x 32. 5. Percutaneous coronary intervention with drug-eluting stent, Synergy 3.0 x 28 mm from the left main into the mid left anterior descending and we did the mini crush technique where we crushed the circumflex stent. DESCRIPTION OF PROCEDURE: After informed consent was obtained, the patient was brought into the cathode washer. The patient was prepped and draped in sterile fashion. Anesthesia did intubate the patient and general anesthesia was provided by anesthesia. Then, the right subclavian artery was accessed by surgical cutdown and chimney graft 8 mm was placed by CT surgery. Then, I placed Impella CP 3.5 liters into the left ventricle and then we accessed the Impella, repositioning sheath with micropuncture; then, we had placed the 45 cm Destination sheath 6-Kittitian and advanced it into the ascending aorta. Then, I went with XB 3-0 guide, but the patient waswith a very short roots. I was not able to engage the left main with it, so I exchanged the guide to JL 6- Kittitian engaged the left main. Then, I went with a Road Boss 200 with no difficulty. We crossed this STOCKFEED MILLER lesion of the left circumflex. Then, we went with a Runthrough wire, placed it in the distal LAD. Then, we went with 1.25 balloon and we did SLIPCOVER CUTTER to the mid left circumflex. Then, we went with a 2.0 balloon, did SLIPCOVER CUTTER to the mid left circumflex into the ostium. Then, there was haziness in the left main and LAD, so then we wanted to stabilize the LAD and we PATIENT NAME: JOSEPH ROWLEY did with multiple balloons in mid LAD and we did multiple inflations all the way to the left main. Then, we went with Synergy drug-eluting stent, 2.5 x 32 and we deployed it across the mid LAD at high pressure. Then, we used the stent balloon to predilate the proximal LAD and left main. Then, we went with a balloon into the left circumflex and we did predilation all the way to the ostium. Then, we went with Synergy drug-eluting stent, 2.5 x 32 and we advanced it into the mid left circumflex and we had minimal protrusion into the left main. Then, we went with x 12 balloon. We placed it into the LAD to perform mini crush and then we deployed the left circumflex stent at a nominal pressure. Then, we crushed the stent with balloon. Then, we went with a x 28 mm Synergy drug-eluting stent and we deployed it from the left main into the mid LAD overlapping the first stent. Then, we advanced the stent balloon and we inflated the overlapped segment and then we took back the balloon and we flared the ostium of the left main. Then, we went with a 3.5 NC balloon and we did proximal optimization of the left main stent. We tried to re-cross into the left circumflex to do a final kissing balloons. We tried multiple wires, was not able to. At this time, we decided to not further pursue the kissing balloon as we have excellent results with JUANITO flow 3 in the left circumflex and LAD. The patient had better pulsatile pressure at the end of the procedure. The wires were removed and obtained final pictures, which showed excellent results. Then, the guide removed and sheath removed. The peel-away sheath was taking the arch. The graft was cut close to the stent and we advanced the peel-away sheath and we secured it in place; however, the peel-away sheath was extended to the subclavian and we had obstruction of the flow into the right arm. We have to pull back the repositioning sheath and cut two-third of it, we had to use multiple techniques to perform that and then we readvanced it to the repositioning sheath and we secured it in place. Then, CT surgery came and closed the cutdown. The patient was hemodynamically stable at the end of the procedure with good pressure and anesthesia extubated the patient. IMPRESSION: Severe 3-vessel disease with critical left main, left anterior descending, and left circumflex, status post percutaneous coronary intervention with 3 drug-eluting stents into the mid left anterior descending, left main, and left circumflex using mini crush technique. PLAN: Keep the Impella support overnight and wean off tomorrow. The patient will need to return to the OR to remove it. The patient was given Plavix 600 in the cathode washer through the NG tube and we will give her Brilinta in CCU after extubation. Dictated By: Kimberly Pak MD Date Dictated: 07/21/2023 22:09:15 Date Transcribed: 07/22/2023 00:50:24 GREY/JANICE/JERED/CASTILLO Receipt ID: [id number] Authenticated and Edited by Kimberly Pak MD On 09/15/23 7:46:22 AM at 0747 PATIENT NAME: JOSEPH ROWLEY [facility] 2023-07-21 21:08:00 [id number] [place] [address] PATIENT NAME: JOSEPH ROWLEY ADMIT DATE: 07/12/23 ACCOUNT NO: [id number] [place] [facility] [place]GE: 68 REPORT TYPE: OPERATIVE REPORT SEX: F ADMITTING PHYSICIAN:Tanvir Prasad MD ATTENDING PHYSICIAN:Tanvir Prasad MD OPERATION DATE: 07/21/2023 PREOPERATIVE DIAGNOSES: 1. Coronary artery disease. 2. Peripheral vascular disease. 3. End-stage renal disease. 4. Severe cardiomyopathy. POSTOPERATIVE DIAGNOSES: 1. Coronary artery disease. 2. Peripheral vascular disease. 3. End-stage renal disease. 4. Severe cardiomyopathy. PROCEDURES: 1. Exploration of right axillary artery. 2. Chimney graft to right axillary artery (8 mm Hemashield graft). 3. The tunneling of the chimney graft into the right pectoralis region. SURGEON: Miguel Lyon M.D. PHOTOGRAPHIC PLATEMAKER: Andrés Rubi M.D. ANESTHESIOLOGIST: Dr. Lizama. ANESTHESIA: General endotracheal anesthesia. ESTIMATED BLOOD LOSS: 20 mL INDICATIONS: Ms. Rowley is a 68-year-old female vasculopath with end-stage renal disease, on hemodialysis and severe triple-vessel coronary artery disease and cardiomyopathy. She was transferred to [place] for PCI. Unfortunately, she had severe peripheral vascular disease and was in need of an Impella support for PCI and hence she was brought to the operating room today for right axillary cutdown as no femoral artery was available for placement of Impella, and PCI. Please refer to Dr. Pak's dictation for placement of an Impella and PCI. FINDINGS: Right axillary artery measured about 6 mm in size, slightly diseased artery. PATIENT NAME: JOSEPH ROWLEY DESCRIPTION OF PROCEDURE: Ms. Rowley was identified in the preoperative holding area and brought to the OR and placed supine on the operating table. After induction of general endotracheal anesthesia, the right side of the chest was prepped and draped in standard surgical fashion. We began by making a 3 cm incision 2 fingerbreadths below the lateral third of the right clavicle. Subcutaneous tissue was divided with Bovie cautery. The pectoralis major muscle was divided along the direction of its fibers. The pectoralis minor muscle was retracted inferiorly. The right axillary vein was identified and retracted superiorly. Next, the right axillary artery was identified, dissected and isolated. The patient was given 6000 units of heparin after waiting for 3 minutes. A segment of right axillary artery was isolated between 2 profunda clamps. A longitudinal arteriotomy was performed along the long axis of the artery and was isolated between 2 profunda clamps. Arteriotomy was performed along the long axis of the artery. An 8 mm Hemashield graft was brought along surgical field. It was beveled and anastomosed to the right axillary artery in end-to-side fashion using running 5-0 Prolene suture. This graft was then tunneled laterally and was brought out through the skin incision with a lateral pectoral fold. Breakable sheath was then attached to the end of the Hemashield graft. Please refer to Dr. Pak's dictation for details of placement of Impella and PCI. After Dr. Pak finished with his procedure, attention was then shifted back to the right infraclavicular region. Hemostasis was achieved. The muscle was approximated with #1 Vicryl, subcutaneous tissue with 2- 0 Vicryl and skin with talon. The patient was extubated in the cathode washer and moved to PACU in stable condition. Dictated By: Miguel Lyon MD Date Dictated: 07/21/2023 21:08:37 Date Transcribed: 07/22/2023 01:30:54 CRISS/CASTILLO Receipt ID: [id number] Authenticated and Edited by Frida Lyon MD On 07/30/23 12:24:04 PM at 1224 PATIENT NAME: JOSEPH ROWLEY [facility] 2023-07-21 21:00:00 [facility] ([facility]) Brief Op Note REPORT#:[id number] REPORT STATUS: Signed DATE:07/21/23 TIME: 2099 PATIENT: JOSEPH ROWLEY UNIT #: [id number] ROOM/BED: [place] [address] : 57 AGE: 68 SEX: F ATTEND: Tanvir Prasad MD ADM AUTHOR: Miguel Lyon MD * ALL edits or amendments must be made on the electronic/computer document * Op/Inv Proc Note - Brief Pre-procedure diagnosis: CAD PVD Post-procedure diagnosis: same as pre procedure dx Procedures performed: Exploration of right Axillary artery Chimney graft to right axillary artery (8mm Hemasheild Graft) Primary Surgeon: Sonali Shirt Cleaner(s): Estephania Alvarez Findings: Rt Axillary artery 6 mm Complications: none Estimated blood loss in ml's: none (20 cc) Specimens removed/altered: none at 2102 RPT #:[id number] END OF REPORT [facility] 2023-07-21 20:31:00 [id number] [place] [address] PATIENT NAME: JOSEPH ROWLEY ADMIT DATE: 07/12/23 ACCOUNT NO: [id number] ROOM NO: [id number] AGE: 68 REPORT TYPE: eECHOCARDIOGRAM REPORT SEX: F ADMITTING PHYSICIAN:Tanvir Prasad MD ATTENDING PHYSICIAN:Tanvir Prasad MD *[place] [address] Limited Transthoracic Echocardiogram Patient: Joseph Rowley Study Date: 07/21/2023 BP: 118 / Location: 72 URN: [id number] MRN: Account#: : 1955 Age: 68 Height: 55.9 in / 142 cm Gender: F Weight: 147.8 lb / 67.2 kg BMI/BSA: 33.3 kg/m 2 / 1.66 m 2 *Interpreting Physician: * Kimberly Pak MD *Results Technician: * Ana Laura Boone Indications: IMPELLA POSITION. Study data: Transthoracic echocardiogram, limited study. Procedure: Transthoracic echocardiography was performed. Image quality was adequate. Intravenous contrast (Definity) was administered. Limited 2D and limited spectral Doppler. Location: CCU Patient status: Inpatient. Patient room number: 3306. Study status: Stat. Rhythm: Normal sinus rhythm. Findings Left ventricle: The cavity size is normal. Wall thickness is normal. Left ventricle ejection fraction is estimated 35%. There is an IMPELLA catheter noted in the left ventricle. Catheter inlet area is approximately 3.3 to 3.5 cm below the aortic valve. Severe diffuse hypokinesis. Features are consistent with a pseudonormal left ventricular filling pattern, with concomitant abnormal relaxation and PATIENT NAME: JOSEPH ROWLEY increased filling pressure (grade 2 diastolic dysfunction). Right ventricle: Estimated TAPSE is 1.1 cm. The cavity size is normal. Systolic function is mildly to moderately reduced. Systolic pressure is moderately to severely increased. Left atrium: The atrium is normal in size. Right atrium: The atrium is normal in size. Aorta: Aortic root: The aortic root is normal in size. Aortic valve: The valve is structurally normal. The valve is trileaflet. There is no evidence of stenosis. There is no regurgitation. Mitral valve: The valve is structurally normal. There is no evidence of stenosis. There is mild to moderate regurgitation. Tricuspid valve: Estimated right ventricular systolic pressure is 66 mmHg. The valve is structurally normal. There is moderate-severe regurgitation. Pulmonic valve: The valve is structurally normal. There is no regurgitation. Pericardium: There is no pericardial effusion. Pulmonary arteries: The main pulmonary artery is normal-sized. Systemic veins: Inferior vena cava: The vessel is normal in size. The respirophasic diameter changes are in the normal range (= 50%). Inferior vena cava diameter measures 16 mm. Conclusions Summary: 1. Left [...] and increased filling pressure (grade 2 diastolic dysfunction). 2. Right ventricle: Estimated TAPSE is 1.1 cm. Systolic function is mildly to moderately reduced. Systolic pressure is moderately to severely increased. 3. Mitral valve: There is mild to moderate regurgitation. 4. Tricuspid valve: Estimated right ventricular systolic pressure is 66 mmHg. There is moderate-severe regurgitation. Prepared and electronically signed by Kimberly Pak MD 07/21/2023 20:31 at 203 PATIENT NAME: JOSEPH ROWLEY [facility] 2023-07-21 18:29:00 [id number] [place] [address] PATIENT NAME: JOSEPH ROWLEY ADMIT DATE: 07/12/23 ACCOUNT NO: [id number] [place] [facility] [place]: 68 REPORT TYPE: eELECTROCARDIOGRAM REPORT SEX: F ADMITTING PHYSICIAN:Tanvir Prasad MD ATTENDING PHYSICIAN:Tanvir Prasad MD Order: [id number] Test Reason : PCI Postprocedure Test Date/Time Stamp: TueJul 21 2023 18:29:57 Blood Pressure : / mmHG Vent. Rate : 078 BPM Atrial Rate : 078 BPM P-R Int : 136 ms QRS Dur : 082 ms QT Int : 404 ms P-R-T Axes : 077 080 177 degrees QTc Int : 460 ms Normal sinus rhythm Low voltage QRS ST and T wave abnormality, consider anterolateral ischemia Abnormal ECG When compared with ECG of 11-JUL-2023 11:12, Significant changes have occurred Confirmed by MD DELANEY GERARD ([id number]) on 07/22/2023 6:42:42 AM Referred By: Jaxson Grover Confirmed by:ED DELANEY MD at 0642 PATIENT NAME: JOSEPH ROWLEY [facility] 2023-07-21 18:02:00 [facility] [place]) Critical Care Consult Note REPORT#:[id number] REPORT STATUS: Signed DATE:07/21/23 TIME: 1801 PATIENT: JOSEPH ROWLEY UNIT #: [id number] ROOM/BED: [place] [id number] : 57 AGE: 68 SEX: F ATTEND: Tanvir Prasad MD ADM AUTHOR: Fanny Chawla * ALL edits or amendments must be made on the electronic/computer document * History of Present Illness HPI Requesting clinician: Dr. Lyon Reason for consult: ICU management Chief complaint: S/p PCI with impella. PCP: PCP: Benito Nugent MD HPI: Joseph Mccullough is a 68-year-old female with a DM1, HTN, severe cardiomyopathy, HF with EF of 25% as well as severe MR, ESRD, on dialysis since July 2022, who presented to her research epidemiologist for evaluation of bilateral nonhealing ulcerations of [...] pain to surgical site. History - Adult longitudinal Additional medical history: type 1 diabetes from the age of 46 years old, end-stage renal disease, on dialysis since July 2022, hypertension Family history: Denies: CAD < 40 yrs old. Additional family history: reviewed and is noncontributory. Alcohol use: Denies EtOH use Drug use: Denies recreational drugs Smoking status for patients 13 years old or older: Never Smoker Allergies: Coded Allergies: Sulfa (Sulfonamide Antibiotics) (Severe, rash 07/11/23) codeine (Intermediate, NAUSEA 07/11/23) Review of Systems ROS Additional notes: All pertinent positives and negatives mentioned in HPI. Objective Physical Exam VS/I O: Last Documented: Result Date Time Pulse Ox 96 07/21 1130 B/P 117/55 07/21 1130 Temp 97.5 07/21 1130 Pulse 64 07/21 1130 Resp 21 07/21 1130 B/P Mean 0.0 07/21 0918 O2 Delivery Room air 07/21 0918 FiO2 21 07/20 2230 O2 Flow Rate 5 07/15 1635 24 hour I O ending at 0700: 07/21 0700 07/20 1900 Intake Total 200 600 Output Total 2500 Balance 200 -1900 Intake, Oral 200 600 Number Voids 1 Output, 2500 Hemodialysis Patient 67.2 kg Weight Weight Bed scale Measurement Method Patient Weight and BMI Weight (kg): 67.200 BMI: 33.2 Medications: Active Meds + DC'd Last 24 Hrs Clopidogrel Bisulfate (Plavix) 75 MG DAILY PO Mupirocin [...] Chloride (HEPARIN 1,000 UNITS/NS 500ML) 500 ML .STK- MED ONE IV (DC) Iopamidol (ISOVUE-370 100ML) 0 .STK-MED ONE IV (DC) Epinephrine HCl (EPINEPHrine 4 mg/D5W 250 mL) 250 ML .STK-MED ONE IV (DC ) Norepinephrine Bitartrate (NOREPINEPHRINE 8 MG/NS 250 ML) 250 ML .STK-MED ONE IV (DC) Etomidate (AMIDATE) 0 .STK-MED ONE IV (DC) Rocuronium [place] (ZEMURON) 0 .STK-MED ONE IV (DC) Dorzolamide [...] appearance: chronically ill appearing, respiratory support, alert, awake , no acute distress, no respiratory distress Head/Eyes: atraumatic, clear cornea, normocephalic, bilateral eye surgery ENT: dry mucosal membrane, poor dentition Neck: full range of motion, non-tender, no JVD, no masses or swelling Cardiovascular: decreased cap refill, pedal edema, normal heart sounds, regular rate and rhythm, normal S1/S2, no ectopy Respiratory: decreased breath sounds, symmetric expansion, no distress Abdomen: soft, non-tender, normal bowel sounds Genitourinary: no bladder distention, no flank pain, DTV Extremities: abnormal capillary refill, decreased range of motion, edema, pedal pulses Musculoskeletal: decreased ROM, no muscle spasm Neuro/DEMURRAGE AGENT: alert, no motor deficits, no sensory deficits Skin: abnormal color, normal temperature, no rash Ulcer: Type/cause: diabetic (right heel ulcer), arterial Location: foot, heel Laterality: bilateral Wound/incision: Location: Right axillary impella site Psychiatry: unable to evaluate Results Findings/Data: Laboratory Tests 07/21/23 0935: [Embedded Image Not Available] Laboratory Tests 07/21 1604 Blood Gas Puncture Site [...] 263 H 203 H Laboratory Tests 07/21 0935 Hematology WBC (4.5 [...] (Auto) (14.0 - 32.0 %) 12.6 L [place] % (Auto) (4.8 - 9.0 %) 11.2 H Eos % (Auto) (0.3 - 3.7 %) 2.1 Baso % (Auto) (0.0 - 2.0 %) 0.2 Neut # (Auto) (2.0 - 7.6 x10 3/uL) 8.58 H Lymph # (Auto) (1.0 - 3.8 x10 3/uL) 1.48 [place] # (Auto) (0.1 - 0.8 x10 3/uL) [...] 0.1 x10 3/uL) 0.10 Treatment Prophylaxis Treatment Prophylaxis Oxygen: simple mask Lines: arterial, CVC (Right chest), Impella (R axillary) CVC/PICC documentation: The data below has been imported from nursing documentation. Any exceptions have been noted below under Provider comments. CVC/PICC insertion date/time: CVC multi lumen double Internal jugular Right Inserted 07/12/23535 Dialysis catheter double Chest Right Inserted 07/12/23535 Provider comments on imported nursing data: [] IV fluids: NS Diagnosis, Assessment Plan Diagnosis, Assessment Plan Orders: Procedure Date/time Status PROTHROMBIN TIME 09/07 1802 Active PHOSPHOROUS 07/21 1756 Active MAGNESIUM 07/21 1756 Active LACTIC ACID 07/21 1756 Active CBC W/AUTO DIFF 07/21 1756 Active CALCIUM IONIZED 07/21 1756 Active BASIC METABOLIC PANEL 07/21 1756 Active Consultants: cardiology, nephrology Plan discussed with: patient, collaborating MD, nurse Code Status/Resusc. Discussion Code status: full code Free text DxA P: Joseph Mccullough is a 68-year-old female with a DM1, HTN, severe cardiomyopathy, HF with EF of 25% as well as severe MR, ESRD, on dialysis since July 2022, who presented to her research epidemiologist for evaluation of bilateral nonhealing ulcerations of [...] HR 78. Reports pain to surgical site. Plan: Monitor closely in the CCU S/p PCI to LAD, L main and Cirx, impella support Monitor site for bleeding, hematoma formation. Apply sand bag to site per . Systemic heparin per protocol. PTT ordered. Obtain EKG. CXR. Post op blood work ECHO in progress Stable b/p. As needed IVF/Colloid resuscitation, check lactate Plavix, ASA per surgery Statin Pain control- tramadol, fentanyl Monitor renal function, she is on HD, renal on board Hyponatremic- ranging from 128-133, lauren Resume pre-op diet, will add bowel care. She received 5-day course of rocephin for Klebsiella Pneumoniae PT/OT and wound care. DVT ppx: To start heparin drip No need for GI ppx. Dispo: CCU. Patient is a full code. Thank you for allowing us to participate in the care of this patient, will follow along during hospital stay. I spent 45 minutes of critical care reviewing labs, imaging and discussing plan of care with ICC team. at 1956 RPT #:[id number] END OF REPORT [facility] 2023-07-21 12:05:00 [facility] ([facility]) Hospitalist Progress Note REPORT#:[id number] REPORT STATUS: Signed DATE:07/21/23 TIME: 1205 PATIENT: JOSEPH ROWLEY UNIT #: [id number] ROOM/BED: [place] [address] : 57 AGE: 68 SEX: F ATTEND: Tanvir Prasad MD ADM AUTHOR: Violetta Davis MD * ALL edits or amendments must be made on the electronic/computer document * Subjective Chief complaint: she is seen in the cathode washer . she will have PCI with impella today . HPI: Patient had a fever spike yesterday was started on empiric antibiotics with UA abnormal system of UTI she is less confused and more alert per patient/family at bedside Review of Systems All systems rev neg: except as noted Objective General VS/I O: Vital Signs: Date Time Temp Pulse Resp B/P B/P Pulse O2 O2 Flow FiO2 Mean Ox Delivery Rate 07/21 1130 36.4 64 21 117/55 96 07/21 0918 36.4 63 14 119/60 0.0 100 Room air 07/21 0417 36.7 75 14 120/58 0.0 95 Room air 07/21 0007 37.0 74 14 103/57 0.0 100 Nasal cannula 07/20 2230 92 Room air 21 07/20 1903 36.9 75 15 109/53 0.0 92 [...] scale Measurement Method PATIENT WEIGHT: Weight (lb): 148 Weight (oz): 2.41 Weight (kg): 67.200 Medications: Active Meds + DC'd Last 24 Hrs Heparin Sodium/Sodium Chloride (HEPARIN 2,000 UNITS/NS 1,000mL) 1,000 ML .STK-MED ONE IV (DC) Heparin Sodium/Sodium Chloride (HEPARIN 1,000 UNITS/NS 500ML) 500 ML .STK- MED ONE IV (DC) Iopamidol (ISOVUE-370 100ML) 0 .STK-MED ONE IV (DC) Epinephrine HCl (EPINEPHrine 4 mg/D5W 250 mL) 250 ML .STK-MED ONE IV (DC ) Norepinephrine Bitartrate (NOREPINEPHRINE 8 MG/NS 250 ML) 250 ML .STK-MED ONE IV (DC) Etomidate (AMIDATE) 0 .STK-MED ONE IV (DC) Rocuronium [place] (ZEMURON) 0 .STK-MED ONE IV (DC) Dorzolamide [...] 0.9%) 250 ML ASDIR PRN IV Physical Exam General appearance: alert, awake, oriented Head/Eyes: atraumatic, normal conjunctiva/sclera, normal eyelids/periorb. Neck: full range of motion Cardiovascular: normal capillary refill, normal heart sounds, regular rate rhythm Respiratory: aerating well, clear to auscultation, symmetric expansion, no distress Abdomen: non-tender, normal bowel sounds, soft, no distention Extremities: no edema Neuro/DEMURRAGE AGENT: alert, oriented X 3 Ulcer: Type/cause: diabetic (right heel ulcer), arterial Psychiatry: depressed Results Findings/Data: Laboratory Tests 07/21 07/21 07/20 1046 0935 1632 [...] (Auto) (14.0 - 32.0 %) 12.6 L [place] % (Auto) (4.8 - 9.0 %) 11.2 H Eos % (Auto) (0.3 - 3.7 %) 2.1 Baso % (Auto) (0.0 - 2.0 %) 0.2 Neut # (Auto) (2.0 - 7.6 x10 3/uL) 8.58 H Lymph # (Auto) (1.0 - 3.8 x10 3/uL) 1.48 [place] # (Auto) (0.1 - 0.8 x10 3/uL) [...] - 0.1 x10 3/uL) 0.10 Diagnosis, Assessment Plan Consultants: cardiology, nephrology Free Text DxA P Notes Free text DxA P notes: 68-year-old female with a past medical history of type 1 diabetes from the age of 46 years old, end-stage renal disease, on dialysis since July 2022, hypertension who presented to her research epidemiologist for evaluation of bilateral nonhealing ulcerations of her bilateral heels for the past 3 months, and shortness of breath with exertion. Left heart catheterization showed significant for severe three-vessel coronary artery disease with severe bilateral occluded SFAs of the lower extremity. Issues as below. Suspected urinary tract infection Severe three-vessel CAD Severe peripheral vascular disease Diabetes mellitus End-stage renal failure on hemodialysis Nonhealing bilateral heel ulcerations Hypertension Hyperlipidemia CHF Mitral valve regurgitation Plan and recommendations Patient admitted into medicine Vital signs every 4 Patient Antiplatelets and statin per cardiology Seen by vascular surgery" CT surgery. Nephrology for hemodialysis. Will do basic lab work include CBC BMP now. Patient is not having significant hypoxia at this time DVT prophylaxis Restart home medications Discussed management plan in detail with patient's family. 07/13/[address] surgery and vascular surgery plans Hemodialysis was done yesterday Hemodialysis per nephrology Monitor renal function Blood sugar control with insulin pump. 07/14/2023 Fever spike last night blood cultures on empiric antibiotics for possible UTI Antibiotics changed Follow-up on cultures Follow-up on cardiothoracic surgery and oncology recommendations plan to have discussion tomorrow Blood sugars controlled Lab work otherwise stable DVT prophylaxis Hemodialysis per nephrology 9/1- take over care from another group -- [...] to heels, increase midodrine to 10 mg 3 times daily in view of persistent hypotension. 07/18 [...] treatment 07/21- she is seen in the cathode washer --PCI /impella -- afternoon -- lab am at 1707 RPT #:[id number] END OF REPORT [facility] 2023-07-21 09:24:00 [facility] Nephrology Progress Note REPORT#:[id number] REPORT STATUS: Signed DATE:07/21/23 TIME: 923 PATIENT: JOSEPH ROWLEY UNIT #: [id number] ROOM/BED: [place] [address] : 57 AGE: 68 SEX: F ATTEND: Tanvir Prasad MD ADM AUTHOR: Winnie Noyola MD * ALL edits or amendments must be made on the electronic/computer document * Subjective Chief complaint: follow up of ESRD Comments: Planned for possible PCI today with cardiology. Objective General VS/I O: Vital Signs: Date Time Temp Pulse Resp [...] scale Measurement Method PATIENT WEIGHT: Weight (lb): 148 Weight (oz): 2.41 Weight (kg): 67.200 Medications Active Meds + DC'd Last 24 Hrs Dorzolamide HCl (TRUSOPT 10 ML OPHTH SOLN) [...] 0.9%) 250 ML ASDIR PRN IV Physical Exam General appearance: alert, awake, oriented Head/eyes: atraumatic, normocephalic, PERRLA ENT: moist mucous membranes Neck: no JVD, no lymphadenopathy, no masses or swelling Cardiovascular: normal heart sounds, regular rate and rhythm, no murmur, no rub Respiratory: aerating well, clear to auscultation, normal breath sounds, no distress Abdomen: non-tender, normal bowel sounds, soft, no rebound Genitourinary: no bladder distention, no flank pain, no urinary catheter Extremities: no edema, no gangrene Neuro/DEMURRAGE AGENT: alert, oriented X 3, CN II-XII intact, normal speech Ulcer: Type/cause: diabetic (right heel ulcer), arterial Results Findings/Data: Laboratory Tests 07/20 1632 Chemistry POC Glucose (70 - 110 MG/DL) 91 Diagnosis, Assessment Plan Free Text A P: 1. ESRD continue with dialysis Tuesday. HD in a.m. 2. Hypotension on midodrine 3. Coronary artery disease PCI today 4. Diabetes type 1 per primary team 5. Anemia of CKD on MATT as hemoglobin less than 10, 10,000 unit 3 times a week 6. hyponatremia Repeat lab in the morning. P.o. fluid restriction 1.2 L/day at 1431 [facility] #:[id number] END OF REPORT [facility] 2023-07-21 09:12:00 [facility]) Cardiothoracic Surgery Prog REPORT#:[id number] REPORT STATUS: Signed REPORT INITIALIZATION DATE:07/21/23 TIME: 911 PATIENT: JOSEPH ROWLEY UNIT #: [id number] ROOM/BED: [place] [address] : 57 AGE: 68 SEX: F ATTEND: Tanvir Prasad MD ADM AUTHOR: Trudy Colindres Physic REPT SERVICE DT/TIME: 07/21/23911 * ALL edits or amendments must be made on the electronic/computer document * Subjective Chief complaint: CAD, eval for CABG PVD nonhealing lower extremity ulcers Patient resting comfortable. Denies chest pain Review of Systems Constitutional: Denies: fever, generalized weakness. Allergy/Immun: Denies: itching, rhinorrhea. Eyes: Denies: itching, diplopia. Respiratory: Denies: VICENTE (dyspnea on exertion), hemoptysis. Cardiovascular: Denies: VICENTE (dyspnea on exertion), edema. GI: Denies: constipation, diarrhea. Musculoskeletal: Denies: joint pain, joint swelling. Heme: Denies: bleeding, bruising. Endocrine: Denies: polydipsia, polyuria. All systems rev neg: except as marked Objective General VS/I O Last Documented: Result Date Time Pulse Ox 95 [...] scale Measurement Method PATIENT WEIGHT: Weight (lb): 148 Weight (oz): 2.41 Weight (kg): 67.200 Physical Exam General appearance: alert, awake, oriented HEENT: anicteric, mucosal membranes moist Cardiovascular: BP/pulses equal bilat., regular rate rhythm Respiratory: aerating well, clear to auscultation Abdomen: soft, non-tender Extremities: dry, moves all Musculoskeletal: full range of motion, painless range of motion Neuro/DEMURRAGE AGENT: alert, oriented X 3 Skin: dry, intact Ulcer: Type/cause: diabetic (right heel ulcer), arterial Diagnosis, Assessment Plan Hospital course to date: This is a very pleasant 68-year-old female with a past medical history of type 1 diabetes from the age of 46 years old, end-stage renal disease, on dialysis since July 2022, hypertension who presented to her research epidemiologist for evaluation of bilateral nonhealing ulcerations of her bilateral heels for the past 3 months, and shortness of breath with exertion. Her last echocardiogram was completed with her research epidemiologist showing an EF 20-25% with mild LVH, severe global hypokinesis, mildly dilated left atrium with moderate aortic sclerosis without stenosis, mitral valve leaflets mildly thickened with severe MR, mild to moderate TR, moderate pulmonary hypertension with an RV systolic pressure 62 mmHg. Patient underwent left heart catheterization today and was found to have severe three-vessel coronary artery disease, with severe bilateral occluded SFAs of the lower extremity. CV surgery consulted for evaluation for coronary artery bypass graft surgery Assessment/plan 1. Severe three-vessel CAD 2. Type I diabetic 3. Severe peripheral vascular disease 4. Nonhealing bilateral heel ulcerations 5. Hypertension 6. Hyperlipidemia 7. CHF Documented EF 20-25% in the outpatient setting 04/05 8. Mitral valve regurgitation Noted to be severe [...] atrial pressure. Average global longitudinal strain is -5.7. 2. Right ventricle: Systolic function is mildly to moderately reduced. Systolic pressure is severely increased. 3. Left atrium: The atrium is dilated. The end-systolic volume index (A-L) is 50 ml/m 2. 4. Mitral valve: The annulus is calcified. Prolapse cannot be excluded. There is moderate to severe regurgitation, directed posteriorly and along the left atrial wall. The effective regurgitant orifice (PISA) is 0.39 cm 2. The regurgitant volume (PISA) is 46 ml. 5. Tricuspid valve: Estimated right ventricular systolic pressure is 76 mmHg. There is moderate-severe regurgitation directed toward the septum. 6. Pericardium, extracardiac: There is a large left pleural effusion. 7. Inferior vena cava: The vessel is dilated. The respirophasic diameter changes are blunted (< 50%). Inferior vena cava diameter measures 2.2 cm. 07/13/23 [place] resting comfortable, Denies any new complaints. On room air. Sinus rhythm. AAO x 3 Cardiac workup still underway. CTA head, abdomena nd pelvis ordered by cardiology. Patient will be presented in the high risk cardiology conference. Further recs to follow. 07/14/23 Patient resting comfortable, Denies chest pains Complains of bilateral heel ulcerations Sinus rhythm On room air Carotid Doppler showed no carotid artery stenosis Patient is considered high risk due to multiple comorbidities, ESRD, CHF, DM Patient will be discussed in the high risk conference Further recommendations to Patient was seen with Dr. Sousa 07/15/23 Patient resting comfortable Denies complaints, denies chest pains Remains on room air Sinus rhythm Patient underwent viability study today. Pending results On dialysis, followed by renal Patient STS score estimated at 50% Further recommendations to follow 07/16/23 Patient resting comfortable, denies chest pain No new complaints Remains on room air Sinus rhythm Pending viability study results. Dialysis per renal. Patient will be discussed in the high risk conference next week. 07/17/23 Patient resting comfortable, No complaints. Remains sinus rhythm. on room air. Viability study completed EF 28% Dialysis as per renal Medical management as per cardiology Patient will be discussed in high risk conference next week. 07/18/23 Patient resting comfortable Denies chest pains On room air Dialysis planned for today Remains sinus rhythm Anemia managed per nephrology Patient will be discussed in the high risk cardiology conference Further recommendations to follow 07/19/23 Patient resting comfortable. Denies chest pains. AAO x 3 on room air. Dialysis yesterday. Free Text A P: This is a very pleasant 68-year-old female with a past medical history of type 1 diabetes from the age of 46 years old, end-stage renal disease, on dialysis since July 2022, hypertension who presented to her research epidemiologist for evaluation of bilateral nonhealing ulcerations of her bilateral heels for the past 3 months, and shortness of breath with exertion. Her last echocardiogram was completed with her research epidemiologist showing an EF 20-25% with mild LVH, severe global hypokinesis, mildly dilated left atrium with moderate aortic sclerosis without stenosis, mitral valve leaflets mildly thickened with severe MR, mild to moderate TR, moderate pulmonary hypertension with an RV systolic pressure 62 mmHg. Patient underwent left heart catheterization today and was found to have severe three-vessel coronary artery disease, with severe bilateral occluded SFAs of the lower extremity. CV surgery consulted for evaluation for coronary artery bypass graft surgery Assessment/plan 1. Severe three-vessel CAD 2. Type I diabetic 3. Severe peripheral vascular disease 4. Nonhealing bilateral heel ulcerations 5. Hypertension 6. Hyperlipidemia 7. CHF Documented EF 20-25% in the outpatient setting 04/05 8. Mitral valve regurgitation Noted to be severe [...] atrial pressure. Average global longitudinal strain is -5.7. 2. Right ventricle: Systolic function is mildly to moderately reduced. Systolic pressure is severely increased. 3. Left atrium: The atrium is dilated. The end-systolic volume index (A-L) is 50 ml/m 2. 4. Mitral valve: The annulus is calcified. Prolapse cannot be excluded. There is moderate to severe regurgitation, directed posteriorly and along the left atrial wall. The effective regurgitant orifice (PISA) is 0.39 cm 2. The regurgitant volume (PISA) is 46 ml. 5. Tricuspid valve: Estimated right ventricular systolic pressure is 76 mmHg. There is moderate-severe regurgitation directed toward the septum. 6. Pericardium, extracardiac: There is a large left pleural effusion. 7. Inferior vena cava: The vessel is dilated. The respirophasic diameter changes are blunted (< 50%). Inferior vena cava diameter measures 2.2 cm. 07/13/23 [place] resting comfortable, Denies any new complaints. On room air. Sinus rhythm. AAO x 3 Cardiac workup still underway. CTA head, abdomena nd pelvis ordered by cardiology. Patient will be presented in the high risk cardiology conference. Further recs to follow. 07/14/23 Patient resting comfortable, Denies chest pains Complains of bilateral heel ulcerations Sinus rhythm On room air Carotid Doppler showed no carotid artery stenosis Patient is considered high risk due to multiple comorbidities, ESRD, CHF, DM Patient will be discussed in the high risk conference Further recommendations to Patient was seen with Dr. Sousa 07/15/23 Patient resting comfortable Denies complaints, denies chest pains Remains on room air Sinus rhythm Patient underwent viability study today. Pending results On dialysis, followed by renal Patient STS score estimated at 50% Further recommendations to follow 07/16/23 Patient resting comfortable, denies chest pain No new complaints Remains on room air Sinus rhythm Pending viability study results. Dialysis per renal. Patient will be discussed in the high risk conference next week. 07/17/23 Patient resting comfortable, No complaints. Remains sinus rhythm. on room air. Viability study completed EF 28% Dialysis as per renal Medical management as per cardiology Patient will be discussed in high risk conference next week. 07/18/23 Patient resting comfortable Denies chest pains On room air Dialysis planned for today Remains sinus rhythm Anemia managed per nephrology Patient will be discussed in the high risk cardiology conference Further recommendations to follow 07/19/23 Patient resting comfortable Denies chest pains Complains of heel pains On room air Sinus rhythm Patient was seen and examined with Dr. Lyon. Patient is high risk for surgical intervention. Dr. Lyon will discuss with cardiology and patient will be discussed in the high risk cardiology conference this week. 07/20/23 Patient resting comfortable No new complaints On room air Sinus rhythm Bilateral heel ulcers. Vascular following Patient will be discussed in the high risk cardiology conference on Tuesday Patient seen and examined with Dr. Lyon 07/21/23 Patient resting comfortable. Denies chest pains. ON room air. sinus rhythm. Wound care follwoing bilateral heal ulcers. Vascular follwoing. Planned for possible PCI today with Impella planned for today. CV surgery will be on standby Patient considered high risk for CABG surgery. Patient seen and examined at [facility] Consultants: cardiology, nephrology at 1620 at 1743 RPT #:[id number] END OF REPORT [facility] 2023-07-21 07:35:00 [facility] ([facility]) Cardiology Progress Note REPORT#:[id number] REPORT STATUS: Signed DATE:07/21/23 TIME: 734 PATIENT: JOSEPH ROWLEY UNIT #: [id number] ROOM/BED: 3306-1 : 57 AGE: 68 SEX: F ATTEND: Tanvir Prasad MD ADM AUTHOR: Yue Barragan * ALL edits or amendments must be made on the electronic/computer document * Yue Barragan 07/21/23 0735: Subjective Comments: no acute cardiac events Objective General VS/I O: 24 hour I O ending at 0700: [...] 2230 92 Room air 21 07/20 1903 36.9 75 15 109/53 0.0 92 Room air 07/20 1708 36.2 81 20 128/58 100 Room air 07/20 1634 36.2 80 14 117/58 0.0 94 07/20 1300 36.4 65 16 109/55 100 Room air 07/20 1137 36.3 73 20 118/72 87.3 98 07/20 0759 36.5 69 19 121/58 0.0 94 PATIENT WEIGHT: Weight (lb): 148 Weight (oz): 2.41 Weight (kg): 67.200 Medications: Active Meds + DC'd Last 24 Hrs Dorzolamide HCl (TRUSOPT 10 ML OPHTH SOLN) [...] 0.9%) 250 ML ASDIR PRN IV Physical Exam General appearance: alert, awake Neck: non-tender, no JVD Cardiovascular: CV assessment: regular rate and rhythm Murmur assessment: heart murmur Respiratory: clear to auscultation, no distress Abdomen: soft, non-tender, normal bowel sounds, no distention Genitourinary: no flank pain, no urinary catheter Lower extremity: LE assessment: abnormal pedal pulse, abnormal peripheral pulse Musculoskeletal: normal inspection Neuro/DEMURRAGE AGENT: alert, oriented X 3, normal speech Skin: right heel ulcer Ulcer: Type/cause: diabetic (right heel ulcer), arterial Psychiatry: normal affect, normal mood Results Findings/Data: Laboratory Tests 07/20 1632 Chemistry POC Glucose (70 - 110 MG/DL) 91 Results: no new labs, vital signs reviewed, vital signs stable, rhythm personally rev'd Telemetry Interpretation: sinus rhythm Free Text Obj Notes Free Text Obj Notes: 68 YO female with MHx of IDDM on insulin pump, nonhealing foot ulcers, ESRD on HD MWF, recent diagnosis of severe cardiomyopathy, HFrEF with LVEF of 25% as well as severe MR. She had elective coronary and peripheral angiogram today, which revealed multivessel CAD and severe bilateral PAD. 1. Multivessel CAD * Aspirin, statin * extremely elevated STS risk score about 50% * nuclear viability study reviewed- scar at apex otherwise viable * CTA head, neck, abdomen, pelvis, subclavian artery, carotid arteries, mesenteric arteries reviewed. 2. Severe PAD with nonhealing foot ulcers * Vascular surgery recommendation noted 3. Mitral regurgitation * moderate to severe MR on TTE with contrast * JULIA reviewed 4. Severe ischemic cardiomyopathy - LVEF 25% * volume management per HD * on midodrine d/t chronic hypotension * no ACEI or ARB d/t chronic hypotension requiring midodrine * LifeVest ordered 5. ESRD - on HD * nephrology following 6. IDDM * per primary team Possible Impella protected PCI today. Keep NPO Diagnosis, Assessment Plan Plan discussed with: patient, spouse/partner, healthcare power of atty, collaborating MD, consultants, nurse Free Text DxA P Notes Free Text DxA P Notes: 68 YO female with MHx of IDDM on insulin pump, nonhealing foot ulcers, ESRD on HD MWF, recent diagnosis of severe cardiomyopathy, HFrEF with LVEF of 25% as well as severe MR. She had elective coronary and peripheral angiogram today, which revealed multivessel CAD and severe bilateral PAD. 1. Multivessel CAD * Aspirin, statin * extremely elevated STS risk score about 50% * nuclear viability study reviewed- scar at apex otherwise viable * CTA head, neck, abdomen, pelvis, subclavian artery, carotid arteries, mesenteric arteries reviewed. * For Impella-assisted PCI today. 2. Severe PAD with nonhealing foot ulcers * Vascular surgery recommendation noted 3. Mitral regurgitation * moderate to severe MR on TTE with contrast * JULIA reviewed 4. Severe ischemic cardiomyopathy - LVEF 25% * volume management per HD * on midodrine d/t chronic hypotension * no ACEI or ARB d/t chronic hypotension requiring midodrine * LifeVest ordered 5. ESRD - on HD * nephrology following 6. IDDM * per primary team For Impella- assisted PCI today. Discussed with patient and family (POA). MDM by Dr. Pak. Kimberly Pak 07/21/23 129: Attestations Physician Attestation Agree w/findings plan: I have seen and examined the pt, I [...] vascular surgery. Patient was taken to the [facility], CT surgery did a surgical cutdown and the chimney graft placed [...] Patient was loaded with Plavix in the [facility] 600 mg, that was given through the NG tube. We will give her 1 dose of Brilinta in CCU. And from tomorrow we will do aspirin and Plavix. at 1435 at 213 RPT #:[id number] END OF REPORT [facility] 2023-07-20 17:15:00 [facility] Cardiothoracic Surgery Prog REPORT#:[id number] REPORT STATUS: Signed REPORT INITIALIZATION DATE:07/20/23 TIME: 1714 PATIENT: JOSEPH ROWLEY UNIT #: [id number] ROOM/BED: [place] [id number] : 57 AGE: 68 SEX: F ATTEND: Tanvir Prasad MD ADM AUTHOR: Trudy Colindres Physic REPT SERVICE DT/TIME: 07/20/231714 * ALL edits or amendments must be made on the electronic/computer document * Subjective Chief complaint: CAD, eval for CABG PVD nonhealing lower extremity ulcers Patient resting comfortable. Denies chest pain Review of Systems Constitutional: Denies: fever, generalized weakness. Skin: Denies: rash, swelling. Allergy/Immun: Denies: itching, rhinorrhea. Eyes: Denies: itching, diplopia. Respiratory: Denies: VICENTE (dyspnea on exertion), hemoptysis. Cardiovascular: Denies: VICENTE (dyspnea on exertion), edema. GI: Denies: constipation, diarrhea. : Denies: dysuria, hematuria. Musculoskeletal: Denies: joint pain, joint swelling. Heme: Denies: bleeding, bruising. Endocrine: Denies: polydipsia, polyuria. Neuro: Denies: confusion, dizziness. All systems rev neg: except as marked Objective General VS/I O Last Documented: Result Date Time Pulse Ox 100 07/20 1708 B/P 128/58 07/20 170 O2 Delivery Room air 07/20 1708 Temp 97.2 07/20 170 Pulse 81 07/20 1708 Resp 20 07/20 170 B/P Mean 0.0 07/20 1634 O2 Flow Rate 5 07/15 1635 24 hour I O ending at 0700: 07/20 0700 07/19 1900 Intake Total 240 Output Total Balance 240 Intake, Oral 240 Number Voids 1 2 PATIENT WEIGHT: Weight (lb): 141 Weight (oz): 8.59 Weight (kg): 64.200 Physical Exam General appearance: alert, awake, oriented HEENT: anicteric, mucosal membranes moist Cardiovascular: BP/pulses equal bilat., regular rate rhythm Respiratory: aerating well, clear to auscultation Abdomen: soft, non-tender Extremities: dry, moves all Musculoskeletal: full range of motion, painless range of motion Neuro/DEMURRAGE AGENT: alert, oriented X 3 Skin: dry, intact Ulcer: Type/cause: diabetic (right heel ulcer), arterial Diagnosis, Assessment Plan Hospital course to date: This is a very pleasant 68-year-old female with a past medical history of type 1 diabetes from the age of 46 years old, end-stage renal disease, on dialysis since July 2022, hypertension who presented to her research epidemiologist for evaluation of bilateral nonhealing ulcerations of her bilateral heels for the past 3 months, and shortness of breath with exertion. Her last echocardiogram was completed with her research epidemiologist showing an EF 20-25% with mild LVH, severe global hypokinesis, mildly dilated left atrium with moderate aortic sclerosis without stenosis, mitral valve leaflets mildly thickened with severe MR, mild to moderate TR, moderate pulmonary hypertension with an RV systolic pressure 62 mmHg. Patient underwent left heart catheterization today and was found to have severe three-vessel coronary artery disease, with severe bilateral occluded SFAs of the lower extremity. CV surgery consulted for evaluation for coronary artery bypass graft surgery Assessment/plan 1. Severe three-vessel CAD 2. Type I diabetic 3. Severe peripheral vascular disease 4. Nonhealing bilateral heel ulcerations 5. Hypertension 6. Hyperlipidemia 7. CHF Documented EF 20-25% in the outpatient setting 04/05 8. Mitral valve regurgitation Noted to be severe [...] atrial pressure. Average global longitudinal strain is -5.7. 2. Right ventricle: Systolic function is mildly to moderately reduced. Systolic pressure is severely increased. 3. Left atrium: The atrium is dilated. The end-systolic volume index (A-L) is 50 ml/m 2. 4. Mitral valve: The annulus is calcified. Prolapse cannot be excluded. There is moderate to severe regurgitation, directed posteriorly and along the left atrial wall. The effective regurgitant orifice (PISA) is 0.39 cm 2. The regurgitant volume (PISA) is 46 ml. 5. Tricuspid valve: Estimated right ventricular systolic pressure is 76 mmHg. There is moderate-severe regurgitation directed toward the septum. 6. Pericardium, extracardiac: There is a large left pleural effusion. 7. Inferior vena cava: The vessel is dilated. The respirophasic diameter changes are blunted (< 50%). Inferior vena cava diameter measures 2.2 cm. 07/13/23 Patinet resting comfortable, Denies any new complaints. On room air. Sinus rhythm. AAO x 3 Cardiac workup still underway. CTA head, abdomena nd pelvis ordered by cardiology. Patient will be presented in the high risk cardiology conference. Further recs to follow. 07/14/23 Patient resting comfortable, Denies chest pains Complains of bilateral heel ulcerations Sinus rhythm On room air Carotid Doppler showed no carotid artery stenosis Patient is considered high risk due to multiple comorbidities, ESRD, CHF, DM Patient will be discussed in the high risk conference Further recommendations to Patient was seen with Dr. Sousa 07/15/23 Patient resting comfortable Denies complaints, denies chest pains Remains on room air Sinus rhythm Patient underwent viability study today. Pending results On dialysis, followed by renal Patient STS score estimated at 50% Further recommendations to follow 07/16/23 Patient resting comfortable, denies chest pain No new complaints Remains on room air Sinus rhythm Pending viability study results. Dialysis per renal. Patient will be discussed in the high risk conference next week. 07/17/23 Patient resting comfortable, No complaints. Remains sinus rhythm. on room air. Viability study completed EF 28% Dialysis as per renal Medical management as per cardiology Patient will be discussed in high risk conference next week. 07/18/23 Patient resting comfortable Denies chest pains On room air Dialysis planned for today Remains sinus rhythm Anemia managed per nephrology Patient will be discussed in the high risk cardiology conference Further recommendations to follow 07/19/23 Patient resting comfortable. Denies chest pains. AAO x 3 on room air. Dialysis yesterday. Free Text A P: This is a very pleasant 68-year-old female with a past medical history of type 1 diabetes from the age of 46 years old, end-stage renal disease, on dialysis since July 2022, hypertension who presented to her research epidemiologist for evaluation of bilateral nonhealing ulcerations of her bilateral heels for the past 3 months, and shortness of breath with exertion. Her last echocardiogram was completed with her research epidemiologist showing an EF 20-25% with mild LVH, severe global hypokinesis, mildly dilated left atrium with moderate aortic sclerosis without stenosis, mitral valve leaflets mildly thickened with severe MR, mild to moderate TR, moderate pulmonary hypertension with an RV systolic pressure 62 mmHg. Patient underwent left heart catheterization today and was found to have severe three-vessel coronary artery disease, with severe bilateral occluded SFAs of the lower extremity. CV surgery consulted for evaluation for coronary artery bypass graft surgery Assessment/plan 1. Severe three-vessel CAD 2. Type I diabetic 3. Severe peripheral vascular disease 4. Nonhealing bilateral heel ulcerations 5. Hypertension 6. Hyperlipidemia 7. CHF Documented EF 20-25% in the outpatient setting 04/05 8. Mitral valve regurgitation Noted to be severe [...] atrial pressure. Average global longitudinal strain is -5.7. 2. Right ventricle: Systolic function is mildly to moderately reduced. Systolic pressure is severely increased. 3. Left atrium: The atrium is dilated. The end-systolic volume index (A-L) is 50 ml/m 2. 4. Mitral valve: The annulus is calcified. Prolapse cannot be excluded. There is moderate to severe regurgitation, directed posteriorly and along the left atrial wall. The effective regurgitant orifice (PISA) is 0.39 cm 2. The regurgitant volume (PISA) is 46 ml. 5. Tricuspid valve: Estimated right ventricular systolic pressure is 76 mmHg. There is moderate-severe regurgitation directed toward the septum. 6. Pericardium, extracardiac: There is a large left pleural effusion. 7. Inferior vena cava: The vessel is dilated. The respirophasic diameter changes are blunted (< 50%). Inferior vena cava diameter measures 2.2 cm. 07/13/23 Patinet resting comfortable, Denies any new complaints. On room air. Sinus rhythm. AAO x 3 Cardiac workup still underway. CTA head, abdomena nd pelvis ordered by cardiology. Patient will be presented in the high risk cardiology conference. Further recs to follow. 07/14/23 Patient resting comfortable, Denies chest pains Complains of bilateral heel ulcerations Sinus rhythm On room air Carotid Doppler showed no carotid artery stenosis Patient is considered high risk due to multiple comorbidities, ESRD, CHF, DM Patient will be discussed in the high risk conference Further recommendations to Patient was seen with Dr. Sousa 07/15/23 Patient resting comfortable Denies complaints, denies chest pains Remains on room air Sinus rhythm Patient underwent viability study today. Pending results On dialysis, followed by renal Patient STS score estimated at 50% Further recommendations to follow 07/16/23 Patient resting comfortable, denies chest pain No new complaints Remains on room air Sinus rhythm Pending viability study results. Dialysis per renal. Patient will be discussed in the high risk conference next week. 07/17/23 Patient resting comfortable, No complaints. Remains sinus rhythm. on room air. Viability study completed EF 28% Dialysis as per renal Medical management as per cardiology Patient will be discussed in high risk conference next week. 07/18/23 Patient resting comfortable Denies chest pains On room air Dialysis planned for today Remains sinus rhythm Anemia managed per nephrology Patient will be discussed in the high risk cardiology conference Further recommendations to follow 07/19/23 Patient resting comfortable Denies chest pains Complains of heel pains On room air Sinus rhythm Patient was seen and examined with Dr. Lyon. Patient is high risk for surgical intervention. Dr. Lyon will discuss with cardiology and patient will be discussed in the high risk cardiology conference this week. 07/20/23 Patient resting comfortable No new complaints On room air Sinus rhythm Bilateral heel ulcers. Vascular following Patient will be discussed in the high risk cardiology conference on Tuesday Patient seen and examined with Dr. Lyon Consultants: cardiology, nephrology at 1717 at 7973 RPT #:[id number] END OF REPORT [facility] 2023-07-20 14:55:00 [facility] ([facility] Nephrology Progress Note REPORT#:[id number] REPORT STATUS: Signed DATE:07/20/23 TIME: 1455 PATIENT: JOSEPH ROWLEY UNIT #: [id number] ROOM/BED: [place] [id number] : 57 AGE: 68 SEX: F ATTEND: Tanvir Prasad MD ADM AUTHOR: Winnie Noyola MD * ALL edits or amendments must be made on the electronic/computer document * Subjective Chief complaint: follow up of ESRD Comments: On dialysis, no complaint Objective General VS/I O: Vital Signs: Date Time Temp Pulse Resp B/P B/P Pulse O2 O2 Flow FiO2 Mean Ox Delivery Rate 07/20 1300 97.5 65 16 109/55 100 Room air 07/20 1137 97.3 73 20 118/72 87.3 98 07/20 0759 97.7 69 19 121/58 0.0 94 07/20 0431 98.4 65 18 121/71 87.5 97 07/20 0000 99.1 71 17 103/67 78.8 96 07/19 2153 94 Room air 07/19 2117 67 07/19 2100 68 / 2000 67 07/19 1956 99.0 69 18 95/64 74.1 90 07/19 1834 65 24 97 09/05 1759 67 29 105/56 78 97 07/19 1745 68 32 99 07/19 1705 97.7 71 12 109/55 0.0 99 Room air 07/19 1659 71 11 109/55 79 99 07/19 1645 71 20 97 07/19 1545 69 24 99 24 hour I O ending at 0700: 07/20 0700 07/19 1900 Intake Total 240 Output Total Balance 240 Intake, Oral 240 Number Voids 1 2 PATIENT WEIGHT: Weight (lb): 141 Weight (oz): 8.59 Weight (kg): 64.200 Medications Active Meds + DC'd Last 24 Hrs Dorzolamide HCl (TRUSOPT 10 ML OPHTH SOLN) [...] 0.9%) 250 ML ASDIR PRN IV Physical Exam General appearance: alert, awake, oriented Head/eyes: atraumatic, normocephalic, PERRLA ENT: moist mucous membranes Neck: no JVD, no lymphadenopathy, no masses or swelling Cardiovascular: normal heart sounds, regular rate and rhythm, no murmur, no rub Respiratory: aerating well, clear to auscultation, normal breath sounds, no distress Abdomen: non-tender, normal bowel sounds, soft, no rebound Genitourinary: no bladder distention, no flank pain, no urinary catheter Extremities: no edema, no gangrene Neuro/DEMURRAGE AGENT: alert, oriented X 3, CN II-XII intact, normal speech Ulcer: Type/cause: diabetic (right heel ulcer), arterial Diagnosis, Assessment Plan Free Text A P: 1. ESRD continue with dialysis Tuesday. Currently HD today, tolerating well with 2.5 L UF 2. Hypotension on midodrine 3. Coronary disease needs CABG, CT surgery on case. Await decision regarding the surgery 4. Diabetes type 1 per primary team 5. Anemia of CKD on MATT as hemoglobin less than 10, 10,000 unit 3 times a week 6. hyponatremia Repeat lab in the morning. P.o. fluid restriction 1.2 L/day at 0809 RPT #:[id number] END OF REPORT [facility] 2023-07-20 12:57:00 [facility] Cardiology Progress Note REPORT#:[id number] REPORT STATUS: Signed DATE:07/20/23 TIME: 1257 PATIENT: JOSEPH ROWLEY UNIT #: [id number] ROOM/BED: [place] [address] : 57 AGE: 68 SEX: F ATTEND: Tanvir Prasad MD ADM AUTHOR: Yue Barragan AGACNP * ALL edits or amendments must be made on the electronic/computer document * Yue Barragan 07/20/23 1257: Subjective Nursing reports: No: chest pain, dizziness, palpitations. Objective General VS/I O: 24 hour I O ending at 0700: [...] air 07/19 2117 67 07/19 2100 68 07/19 2000 67 07/19 1956 37.2 69 18 95/64 74.1 90 / 1834 65 24 97 / 1759 67 29 105/56 78 97 / 1745 68 32 99 / 1705 36.5 71 12 109/55 0.0 99 Room air 07/19 1659 71 11 109/55 79 99 / 1645 71 20 97 / 1545 69 24 99 / 1445 72 33 96 / 1358 73 32 100/52 73 97 / 1345 72 31 100 PATIENT WEIGHT: Weight (lb): 141 Weight (oz): 8.59 Weight (kg): 64.200 Medications: Active Meds + DC'd Last 24 Hrs Dorzolamide HCl (TRUSOPT 10 ML OPHTH SOLN) [...] 0.9%) 250 ML ASDIR PRN IV Physical Exam General appearance: alert, awake, oriented, conversational Neck: non-tender, no JVD Cardiovascular: CV assessment: regular rate and rhythm Murmur assessment: heart murmur Respiratory: clear to auscultation, no distress Abdomen: soft, non-tender, normal bowel sounds, no distention Genitourinary: no flank pain, no urinary catheter Lower extremity: LE assessment: abnormal pedal pulse, abnormal peripheral pulse Musculoskeletal: normal inspection Neuro/DEMURRAGE AGENT: alert, oriented X 3, normal speech Skin: right heel ulcer Ulcer: Type/cause: diabetic (right heel ulcer), arterial Psychiatry: normal affect, normal mood Results Results: no new labs, rhythm personally rev'd Telemetry Interpretation: Sinus rhythm Diagnosis, Assessment Plan Plan discussed with: patient, family, admitting physician, collaborating MD, nurse Free Text DxA P Notes Free Text DxA P Notes: 68 YO female with MHx of IDDM on insulin pump, nonhealing foot ulcers, ESRD on HD MWF, recent diagnosis of severe cardiomyopathy, HFrEF with LVEF of 25% as well as severe MR. She had elective coronary and peripheral angiogram today, which revealed multivessel CAD and severe bilateral PAD. 1. Multivessel CAD * Aspirin, statin * extremely elevated STS risk score about 50% * nuclear viability study reviewed- scar at apex otherwise viable * CTA head, neck, abdomen, pelvis, subclavian artery, carotid arteries, mesenteric arteries reviewed. 2. Severe PAD with nonhealing foot ulcers * Vascular surgery recommendation noted 3. Mitral regurgitation * moderate to severe MR on TTE with contrast * JULIA reviewed 4. Severe ischemic cardiomyopathy - LVEF 25% * volume management per HD * on midodrine d/t chronic hypotension * no ACEI or ARB d/t chronic hypotension requiring midodrine * LifeVest ordered 5. ESRD - on HD * nephrology following 6. IDDM * per primary team Patient will be presented in the conference on Tuesday to decide on high risk revascularization (likely PCI) vs medical therapy. MDM by Dr. Pak. Kimberly Pak 07/21/230: Attestations Physician Attestation Agree w/findings plan: I have seen and examined the pt, I Agree with the findings and plan as documented by Yue Barragan. I discussed the case with the patient primary research epidemiologist and with CT surgery will plan likely for PCI of the left main, LAD and left circumflex tomorrow with Impella support through axillary access that would be obtained by CT surgery. at 1303 at 0721 RPT #:[id number] END OF REPORT [facility] 2023-07-20 10:57:00 [facility] ([facility]) Hospitalist Progress Note REPORT#:[id number] REPORT STATUS: Signed DATE:07/20/23 TIME: 105 PATIENT: JOSEPH ROWLEY UNIT #: [id number] ROOM/BED: [place] [id number] : 57 AGE: 68 SEX: F ATTEND: Tanvir Prasad MD ADM AUTHOR: Violetta Davis MD * ALL edits or amendments must be made on the electronic/computer document * Subjective Chief complaint: she sit on the chair . no complaint HPI: Patient had a fever spike yesterday was started on empiric antibiotics with UA abnormal system of UTI she is less confused and more alert per patient/family at bedside Review of Systems Constitutional: Reports: generalized weakness. All systems rev neg: except as noted Objective General VS/I O: Vital Signs: Date Time Temp Pulse Resp B/P B/P Pulse O2 O2 Flow FiO2 Mean Ox Delivery Rate 07/20 0759 36.5 69 19 121/58 0.0 94 07/20 0431 36.9 65 18 121/71 87.5 97 07/20 0000 37.3 71 17 103/67 78.8 96 / 2153 94 Room air 07/19 2117 67 / 2100 68 / 2000 67 / 1956 37.2 69 18 95/64 74.1 90 / 1834 65 24 97 / 1759 67 29 105/56 78 97 / 1745 68 32 99 /05 1705 36.5 71 12 109/55 0.0 99 Room air 07/19 1659 71 11 109/55 79 99 /05 1645 71 20 97 /05 1545 69 24 99 /05 1445 72 33 96 /05 1358 73 32 100/52 73 97 /05 1345 72 31 100 09/05 1245 72 27 96 /05 1145 73 30 99 24 hour I O ending at 0700: 07/20 0700 07/19 1900 Intake Total 240 Output Total Balance 240 Intake, Oral 240 Number Voids 1 2 PATIENT WEIGHT: Weight (lb): 141 Weight (oz): 8.59 Weight (kg): 64.200 Medications: Active Meds + DC'd Last 24 Hrs Dorzolamide HCl (TRUSOPT 10 ML OPHTH SOLN) [...] 0.9%) 250 ML ASDIR PRN IV Physical Exam General appearance: alert, awake, oriented Head/Eyes: atraumatic, normal conjunctiva/sclera, normal eyelids/periorb. Neck: full range of motion Cardiovascular: normal capillary refill, normal heart sounds, regular rate rhythm Respiratory: aerating well, clear to auscultation, symmetric expansion, no distress Abdomen: non-tender, normal bowel sounds, soft, no distention Extremities: no edema Neuro/DEMURRAGE AGENT: alert, oriented X 3 Ulcer: Type/cause: diabetic (right heel ulcer), arterial Psychiatry: depressed Diagnosis, Assessment Plan Consultants: cardiology, nephrology Free Text DxA P Notes Free text DxA P notes: 68-year-old female with a past medical history of type 1 diabetes from the age of 46 years old, end-stage renal disease, on dialysis since July 2022, hypertension who presented to her research epidemiologist for evaluation of bilateral nonhealing ulcerations of her bilateral heels for the past 3 months, and shortness of breath with exertion. Left heart catheterization showed significant for severe three-vessel coronary artery disease with severe bilateral occluded SFAs of the lower extremity. Issues as below. Suspected urinary tract infection Severe three-vessel CAD Severe peripheral vascular disease Diabetes mellitus End-stage renal failure on hemodialysis Nonhealing bilateral heel ulcerations Hypertension Hyperlipidemia CHF Mitral valve regurgitation Plan and recommendations Patient admitted into medicine Vital signs every 4 Patient Antiplatelets and statin per cardiology Seen by vascular surgery" CT surgery. Nephrology for hemodialysis. Will do basic lab work include CBC BMP now. Patient is not having significant hypoxia at this time DVT prophylaxis Restart home medications Discussed management plan in detail with patient's family. 07/13/[address] surgery and vascular surgery plans Hemodialysis was done yesterday Hemodialysis per nephrology Monitor renal function Blood sugar control with insulin pump. 07/14/2023 Fever spike last night blood cultures on empiric antibiotics for possible UTI Antibiotics changed Follow-up on cultures Follow-up on cardiothoracic surgery and oncology recommendations plan to have discussion tomorrow Blood sugars controlled Lab work otherwise stable DVT prophylaxis Hemodialysis per nephrology 07/15- take over care from [...] to heels, increase midodrine to 10 mg 3 times daily in view of persistent hypotension. 07/18 [...] tuesday conference continue medical treatment at 1612 RPT #:[id number] END OF REPORT [facility] 2023-07-19 11:10:00 [facility] ([facility]) Hospitalist Progress Note REPORT#:[id number] REPORT STATUS: Signed DATE:07/19/23 TIME: 1110 PATIENT: JOSEPH ROWLEY UNIT #: [id number] ROOM/BED: [place] [id number] : 57 AGE: 68 SEX: F ATTEND: Tanvir Prasad MD ADM AUTHOR: Violetta Davis MD * ALL edits or amendments must be made on the electronic/computer document * Subjective Chief complaint: No cp, no sob HPI: Patient had a fever spike yesterday was started on empiric antibiotics with UA abnormal system of UTI she is less confused and more alert per patient/family at bedside Review of Systems All systems rev neg: except as noted Objective General VS/I O: Vital Signs: Date Time Temp Pulse Resp B/P B/P Pulse O2 O2 Flow FiO2 Mean Ox Delivery Rate 07/19 0930 36.6 70 20 98/52 0.0 100 Room air 09/05 0718 37.0 68 19 92/53 65.7 100 09/05 0634 74 09/05 0448 37.2 74 14 98/54 0.0 95 Room air 09/05 0445 75 98/54 73 95 09/05 0400 21 09/05 0200 75 25 109/54 78 98 09/05 0000 79 23 101/52 73 94 09/04 2357 79 25 98/50 71 96 09/04 2357 37.0 78 14 98/50 0.0 97 Room air 09/04 2200 72 22 88/52 68 93 09/04 2118 76 35 90/50 67 94 09/04 1857 36.6 91 14 102/55 0.0 94 Room air 09/04 1812 36.8 85 22 102/55 98 Room air 09/04 1804 86 09/04 1800 86 26 102/55 76 99 09/04 1745 83 28 107/58 79 97 09/04 1730 77 26 106/55 77 98 09/04 1715 81 32 108/56 79 98 09/04 1712 82 32 126/58 83 97 09/04 1613 36.7 80 14 113/58 0.0 100 Room air 09/04 1612 80 23 113/58 84 98 07/18 1600 81 17 111/53 77 100 07/18 1545 80 32 105/55 78 99 / 1530 77 33 119/56 80 87 07/18 1515 79 30 111/54 78 98 /04 1500 73 26 108/53 76 99 / 1445 74 22 112/57 77 91 / 1439 36.8 68 22 109/54 98 Room air 07/18 1430 71 26 105/59 76 100 07/18 1415 68 25 106/59 79 70 /04 1403 68 26 109/54 76 88 / 1229 69 25 106/54 78 98 24 hour I O ending at 0700: 07/19 0700 07/18 1900 Intake Total 200 400 Output Total 240 2350 Balance -40 -1950 Intake, Oral 200 400 Output, 2000 Hemodialysis Output, Urine 240 350 Patient 64.2 kg Weight Weight Bed scale Measurement Method PATIENT WEIGHT: Weight (lb): 141 Weight (oz): 8.59 Weight (kg): 64.200 Medications: Active Meds + DC'd Last 24 Hrs Midodrine (PROAMATINE) 7.5 MG 0800,1200,1600 PO Epoetin Tanner-epbx (RETACRIT) 10,000 UNIT TuThSa@2100 IV Loperamide HCl (IMODIUM CAPSULE) 2 MG QID PRN PRN PO Ceftriaxone Sodium (ROCEPHIN 1000MG VIAL) 1,000 MG Q24H IV (DC) Sodium Chloride (SODIUM CHLORIDE) 10 ML Aspirin (ASPIRIN) 81 MG DAILY PO Acetaminophen [...] 0.9%) 250 ML ASDIR PRN IV Physical Exam General appearance: alert, awake, oriented Head/Eyes: atraumatic, normal conjunctiva/sclera, normal eyelids/periorb. Neck: full range of motion Cardiovascular: normal capillary refill, normal heart sounds, regular rate rhythm Respiratory: aerating well, clear to auscultation, symmetric expansion, no distress Abdomen: non-tender, normal bowel sounds, soft, no distention Extremities: no edema Neuro/DEMURRAGE AGENT: alert, oriented X 3 Ulcer: Type/cause: diabetic (right heel ulcer), arterial Psychiatry: depressed Results Findings/Data: Laboratory Tests 07/18 1610 Chemistry POC Glucose (70 - 110 MG/DL) 96 Diagnosis, Assessment Plan Consultants: cardiology, nephrology Free Text DxA P Notes Free text DxA P notes: 68-year-old female with a past medical history of type 1 diabetes from the age of 46 years old, end-stage renal disease, on dialysis since July 2022, hypertension who presented to her research epidemiologist for evaluation of bilateral nonhealing ulcerations of her bilateral heels for the past 3 months, and shortness of breath with exertion. Left heart catheterization showed significant for severe three-vessel coronary artery disease with severe bilateral occluded SFAs of the lower extremity. Issues as below. Suspected urinary tract infection Severe three-vessel CAD Severe peripheral vascular disease Diabetes mellitus End-stage renal failure on hemodialysis Nonhealing bilateral heel ulcerations Hypertension Hyperlipidemia CHF Mitral valve regurgitation Plan and recommendations Patient admitted into medicine Vital signs every 4 Patient Antiplatelets and statin per cardiology Seen by vascular surgery" CT surgery. Nephrology for hemodialysis. Will do basic lab work include CBC BMP now. Patient is not having significant hypoxia at this time DVT prophylaxis Restart home medications Discussed management plan in detail with patient's family. 07/13/[address] surgery and vascular surgery plans Hemodialysis was done yesterday Hemodialysis per nephrology Monitor renal function Blood sugar control with insulin pump. 07/14/2023 Fever spike last night blood cultures on empiric antibiotics for possible UTI Antibiotics changed Follow-up on cultures Follow-up on cardiothoracic surgery and oncology recommendations plan to have discussion tomorrow Blood sugars controlled Lab work otherwise stable DVT prophylaxis Hemodialysis per nephrology 07/15- take over care from [...] to heels, increase midodrine to 10 mg 3 times daily in view of persistent hypotension. 07/18 hyponatremic with sodium of 128, on hemodialysis, blood pressure has improved on midodrine, revascularization decision in a.m., daughter is at bedside, wound care. 07/19- no cp no sob -- family are in the room -- conference decision -pending -- continue current management at 1541 RPT #:[id number] END OF REPORT [facility] 2023-07-19 09:46:00 [facility] Nephrology Progress Note REPORT#:[id number] REPORT STATUS: Signed DATE:07/19/23 TIME: 945 PATIENT: JOSEPH ROWLEY UNIT #: [id number] ROOM/BED: [place] [id number] : 57 AGE: 68 SEX: F ATTEND: Tanvir Prasad MD ADM AUTHOR: Winnie Noyola MD * ALL edits or amendments must be made on the electronic/computer document * Subjective Chief complaint: follow up of ESRD Comments: No complaint Objective General VS/I O: Vital Signs: Date Time Temp Pulse Resp B/P B/P Pulse O2 O2 Flow FiO2 Mean Ox Delivery Rate 07/19 930 97.9 70 20 98/52 0.0 100 Room air 07/19 0718 98.6 68 19 92/53 65.7 100 07/19 0634 74 / 0448 99.0 74 14 98/54 0.0 95 Room air 07/19 0445 75 98/54 73 95 / 0400 21 07/19 0200 75 25 109/54 78 98 /05 0000 79 23 101/52 73 94 07/18 2357 79 25 98/50 71 96 09/04 [...] 24 hour I O ending at 0700: 09/05 0700 09/04 1900 Intake Total 200 400 Output Total 240 2350 Balance -40 -1950 Intake, Oral 200 400 Output, 2000 Hemodialysis Output, Urine 240 350 Patient 64.2 kg Weight Weight Bed scale Measurement Method PATIENT WEIGHT: Weight (lb): 141 Weight (oz): 8.59 Weight (kg): 64.200 Medications Active Meds + DC'd Last 24 Hrs Midodrine (PROAMATINE) 7.5 MG 0800,1200,1600 PO Epoetin Tanner-epbx (RETACRIT) 10,000 UNIT TuThSa@2100 IV Loperamide HCl (IMODIUM CAPSULE) 2 MG QID PRN PRN PO Ceftriaxone Sodium (ROCEPHIN 1000MG VIAL) 1,000 MG Q24H IV (DC) Sodium Chloride (SODIUM CHLORIDE) 10 ML Aspirin (ASPIRIN) 81 MG DAILY PO Acetaminophen [...] 0.9%) 250 ML ASDIR PRN IV Physical Exam General appearance: alert, awake, oriented Head/eyes: atraumatic, normocephalic, PERRLA ENT: moist mucous membranes Neck: no JVD, no lymphadenopathy, no masses or swelling Cardiovascular: normal heart sounds, regular rate and rhythm, no murmur, no rub Respiratory: aerating well, clear to auscultation, normal breath sounds, no distress Abdomen: non-tender, normal bowel sounds, soft, no rebound Genitourinary: no bladder distention, no flank pain, no urinary catheter Extremities: no edema, no gangrene Neuro/DEMURRAGE AGENT: alert, oriented X 3, CN II-XII intact, normal speech Ulcer: Type/cause: diabetic (right heel ulcer), arterial Results Findings/Data: Laboratory Tests 07/18 07/18 1610 1128 Chemistry Sodium [...] (Auto) (14.0 - 32.0 %) 9.2 L [place] % (Auto) (4.8 - 9.0 %) 11.8 H Eos % (Auto) (0.3 - 3.7 %) 1.7 Baso % (Auto) (0.0 - 2.0 %) 0.4 Neut # (Auto) (2.0 - 7.6 x10 3/uL) 9.87 H Lymph # (Auto) (1.0 - 3.8 x10 3/uL) 1.20 [place] # (Auto) (0.1 - 0.8 x10 3/uL) [...] - 0.1 x10 3/uL) 0.05 Diagnosis, Assessment Plan Free Text A P: 1. ESRD continue with dialysis Tuesday. HD in a.m. 2. Hypotension on midodrine [...] and niece at bedside at 1455 RPT #:[id number] END OF REPORT [facility] 2023-07-19 09:18:00 [facility] ([facility]) Cardiology Progress Note REPORT#:[id number] REPORT STATUS: Signed DATE:07/19/23 TIME: 917 PATIENT: JOSEPH ROWLEY UNIT #: [id number] ROOM/BED: [place] [id number] : 57 AGE: 68 SEX: F ATTEND: Tanvir Prasad MD ADM AUTHOR: Yue Barragan AGACNP * ALL edits or amendments must be made on the electronic/computer document * Yue Barragan 07/19/23 0918: Subjective Comments: No CP or SOB. Objective General VS/I O: 24 hour I O ending at 0700: 07/19 0700 07/18 1900 Intake Total 200 400 Output Total 240 2350 Balance -40 -1950 Intake, Oral 200 400 Output, 2000 Hemodialysis Output, Urine 240 350 Patient 64.2 kg Weight Weight Bed scale Measurement Method Vital Signs Date Temp Pulse Resp B/P B/P Mean Pulse Ox FiO2 07/18-07/19 36.6-37.2 68-91 14-35 88-126/50-59 0.0-84 70-100 PATIENT WEIGHT: Weight (lb): 141 Weight (oz): 8.59 Weight (kg): 64.200 Medications: Active Meds + DC'd Last 24 Hrs Midodrine (PROAMATINE) 7.5 MG 0800,1200,1600 PO Epoetin Tanner-epbx (RETACRIT) 10,000 UNIT TuThSa@2100 IV Loperamide HCl (IMODIUM CAPSULE) 2 MG QID PRN PRN PO Ceftriaxone Sodium (ROCEPHIN 1000MG VIAL) 1,000 MG Q24H IV (DC) Sodium Chloride (SODIUM CHLORIDE) 10 ML Aspirin (ASPIRIN) 81 MG DAILY PO Acetaminophen [...] 0.9%) 250 ML ASDIR PRN IV Physical Exam General appearance: alert, awake, oriented, no acute distress, pleasant Neck: non-tender, no JVD Cardiovascular: CV assessment: regular rate and rhythm Murmur assessment: heart murmur Respiratory: clear to auscultation, no distress Abdomen: soft, non-tender, normal bowel sounds, no distention Genitourinary: no flank pain, no urinary catheter Lower extremity: LE assessment: abnormal pedal pulse, abnormal peripheral pulse Musculoskeletal: normal inspection Neuro/DEMURRAGE AGENT: alert, oriented X 3, normal speech Skin: right heel ulcer Ulcer: Type/cause: diabetic (right heel ulcer), arterial Psychiatry: normal affect, normal mood Results Findings/Data: Laboratory Tests 07/18 07/18 1610 1128 Chemistry Sodium [...] (Auto) (14.0 - 32.0 %) 9.2 L [place] % (Auto) (4.8 - 9.0 %) 11.8 H Eos % (Auto) (0.3 - 3.7 %) 1.7 Baso % (Auto) (0.0 - 2.0 %) 0.4 Neut # (Auto) (2.0 - 7.6 x10 3/uL) 9.87 H Lymph # (Auto) (1.0 - 3.8 x10 3/uL) 1.20 [place] # (Auto) (0.1 - 0.8 x10 3/uL) [...] labs reviewed, vital signs reviewed, rhythm personally rev'd Telemetry Interpretation: sinus rhythm Diagnosis, Assessment Plan Plan discussed with: patient, spouse/partner, healthcare power of atty, collaborating MD, nurse Free Text DxA P Notes Free Text DxA P Notes: 68 YO female with MHx of IDDM on [...] niece who is the MPOA. 1. Multivessel CAD * Aspirin, statin * extremely elevated STS risk score about 50% * nuclear viability study reviewed- scar at apex otherwise viable * CTA head, neck, abdomen, pelvis, subclavian artery, carotid arteries, mesenteric arteries reviewed. 2. Severe PAD with nonhealing foot ulcers * Vascular surgery recommendation noted 3. Mitral regurgitation * moderate to severe MR on TTE with contrast * JULIA reviewed 4. Ischemic cardiomyopathy/HFrEF * volume management per HD * on midodrine d/t chronic hypotension * no ACEI or ARB d/t chronic hypotension requiring midodrine 5. ESRD - on HD * nephrology following 6. IDDM * per primary team Patient will be presented in the conference today to decide on high risk revascularization (likely PCI) vs medical therapy. MDM by Dr. Pak. Kimberly Pak 07/21/23 2136: Attestations Physician Attestation Agree w/findings plan: I have seen and examined the pt, I Agree with the findings and plan as documented by Yue Barragan. at 1148 at 2131 [facility] #:[id number] END OF REPORT [facility] 2023-07-19 06:41:00 [facility] ([facility]) Cardiothoracic Surgery Prog REPORT#:[id number] REPORT STATUS: Signed DATE:07/19/23 TIME: 640 PATIENT: JOSEPH ROWLEY UNIT #: [id number] ROOM/BED: [place] [id number] : 57 AGE: 68 SEX: F ATTEND: Tanvir Prasad MD ADM AUTHOR: Trudy Colindres Physic * ALL edits or amendments must be made on the electronic/computer document * Subjective Chief complaint: CAD, eval for CABG PVD nonhealing lower extremity ulcers Patient resting comfortable. Denies chest pain Review of Systems Constitutional: Denies: fever, generalized weakness. Skin: Denies: rash, swelling. Allergy/Immun: Denies: itching, rhinorrhea. Eyes: Denies: itching, diplopia. Respiratory: Denies: VICENTE (dyspnea on exertion), hemoptysis. Cardiovascular: Denies: VICENTE (dyspnea on exertion), edema. GI: Denies: constipation, diarrhea. : Denies: dysuria, hematuria. Musculoskeletal: Denies: joint pain, joint swelling. Heme: Denies: bleeding, bruising. Endocrine: Denies: polydipsia, polyuria. Neuro: Denies: confusion, dizziness. All systems rev neg: except as marked Objective Physical Exam General appearance: alert, awake, oriented HEENT: anicteric, mucosal membranes moist Cardiovascular: BP/pulses equal bilat., regular rate rhythm Respiratory: aerating well, clear to auscultation Abdomen: soft, non-tender Extremities: dry, moves all Musculoskeletal: full range of motion, painless range of motion Neuro/DEMURRAGE AGENT: alert, oriented X 3 Skin: dry, intact Ulcer: Type/cause: diabetic (right heel ulcer), arterial Diagnosis, Assessment Plan Hospital course to date: This is a very pleasant 68-year-old female with a past medical history of type 1 diabetes from the age of 46 years old, end-stage renal disease, on dialysis since July 2022, hypertension who presented to her research epidemiologist for evaluation of bilateral nonhealing ulcerations of her bilateral heels for the past 3 months, and shortness of breath with exertion. Her last echocardiogram was completed with her research epidemiologist showing an EF 20-25% with mild LVH, severe global hypokinesis, mildly dilated left atrium with moderate aortic sclerosis without stenosis, mitral valve leaflets mildly thickened with severe MR, mild to moderate TR, moderate pulmonary hypertension with an RV systolic pressure 62 mmHg. Patient underwent left heart catheterization today and was found to have severe three-vessel coronary artery disease, with severe bilateral occluded SFAs of the lower extremity. CV surgery consulted for evaluation for coronary artery bypass graft surgery Assessment/plan 1. Severe three-vessel CAD 2. Type I diabetic 3. Severe peripheral vascular disease 4. Nonhealing bilateral heel ulcerations 5. Hypertension 6. Hyperlipidemia 7. CHF Documented EF 20-25% in the outpatient setting 04/05 8. Mitral valve regurgitation Noted to be severe [...] atrial pressure. Average global longitudinal strain is -5.7. 2. Right ventricle: Systolic function is mildly to moderately reduced. Systolic pressure is severely increased. 3. Left atrium: The atrium is dilated. The end-systolic volume index (A-L) is 50 ml/m 2. 4. Mitral valve: The annulus is calcified. Prolapse cannot be excluded. There is moderate to severe regurgitation, directed posteriorly and along the left atrial wall. The effective regurgitant orifice (PISA) is 0.39 cm 2. The regurgitant volume (PISA) is 46 ml. 5. Tricuspid valve: Estimated right ventricular systolic pressure is 76 mmHg. There is moderate-severe regurgitation directed toward the septum. 6. Pericardium, extracardiac: There is a large left pleural effusion. 7. Inferior vena cava: The vessel is dilated. The respirophasic diameter changes are blunted (< 50%). Inferior vena cava diameter measures 2.2 cm. 07/13/23 Pat[place] resting comfortable, Denies any new complaints. On room air. Sinus rhythm. AAO x 3 Cardiac workup still underway. CTA head, abdomena nd pelvis ordered by cardiology. Patient will be presented in the high risk cardiology conference. Further recs to follow. 07/14/23 Patient resting comfortable, Denies chest pains Complains of bilateral heel ulcerations Sinus rhythm On room air Carotid Doppler showed no carotid artery stenosis Patient is considered high risk due to multiple comorbidities, ESRD, CHF, DM Patient will be discussed in the high risk conference Further recommendations to Patient was seen with Dr. Sousa 07/15/23 Patient resting comfortable Denies complaints, denies chest pains Remains on room air Sinus rhythm Patient underwent viability study today. Pending results On dialysis, followed by renal Patient STS score estimated at 50% Further recommendations to follow 07/16/23 Patient resting comfortable, denies chest pain No new complaints Remains on room air Sinus rhythm Pending viability study results. Dialysis per renal. Patient will be discussed in the high risk conference next week. 07/17/23 Patient resting comfortable, No complaints. Remains sinus rhythm. on room air. Viability study completed EF 28% Dialysis as per renal Medical management as per cardiology Patient will be discussed in high risk conference next week. 07/18/23 Patient resting comfortable Denies chest pains On room air Dialysis planned for today Remains sinus rhythm Anemia managed per nephrology Patient will be discussed in the high risk cardiology conference Further recommendations to follow 07/19/23 Patient resting comfortable. Denies chest pains. AAO x 3 on room air. Dialysis yesterday. Free Text A P: This is a very pleasant 68-year-old female with a past medical history of type 1 diabetes from the age of 46 years old, end-stage renal disease, on dialysis since July 2022, hypertension who presented to her research epidemiologist for evaluation of bilateral nonhealing ulcerations of her bilateral heels for the past 3 months, and shortness of breath with exertion. Her last echocardiogram was completed with her research epidemiologist showing an EF 20-25% with mild LVH, severe global hypokinesis, mildly dilated left atrium with moderate aortic sclerosis without stenosis, mitral valve leaflets mildly thickened with severe MR, mild to moderate TR, moderate pulmonary hypertension with an RV systolic pressure 62 mmHg. Patient underwent left heart catheterization today and was found to have severe three-vessel coronary artery disease, with severe bilateral occluded SFAs of the lower extremity. CV surgery consulted for evaluation for coronary artery bypass graft surgery Assessment/plan 1. Severe three-vessel CAD 2. Type I diabetic 3. Severe peripheral vascular disease 4. Nonhealing bilateral heel ulcerations 5. Hypertension 6. Hyperlipidemia 7. CHF Documented EF 20-25% in the outpatient setting 04/05 8. Mitral valve regurgitation Noted to be severe [...] atrial pressure. Average global longitudinal strain is -5.7. 2. Right ventricle: Systolic function is mildly to moderately reduced. Systolic pressure is severely increased. 3. Left atrium: The atrium is dilated. The end-systolic volume index (A-L) is 50 ml/m 2. 4. Mitral valve: The annulus is calcified. Prolapse cannot be excluded. There is moderate to severe regurgitation, directed posteriorly and along the left atrial wall. The effective regurgitant orifice (PISA) is 0.39 cm 2. The regurgitant volume (PISA) is 46 ml. 5. Tricuspid valve: Estimated right ventricular systolic pressure is 76 mmHg. There is moderate-severe regurgitation directed toward the septum. 6. Pericardium, extracardiac: There is a large left pleural effusion. 7. Inferior vena cava: The vessel is dilated. The respirophasic diameter changes are blunted (< 50%). Inferior vena cava diameter measures 2.2 cm. 07/13/23 [place] resting comfortable, Denies any new complaints. On room air. Sinus rhythm. AAO x 3 Cardiac workup still underway. CTA head, abdomena nd pelvis ordered by cardiology. Patient will be presented in the high risk cardiology conference. Further recs to follow. 07/14/23 Patient resting comfortable, Denies chest pains Complains of bilateral heel ulcerations Sinus rhythm On room air Carotid Doppler showed no carotid artery stenosis Patient is considered high risk due to multiple comorbidities, ESRD, CHF, DM Patient will be discussed in the high risk conference Further recommendations to Patient was seen with Dr. Sousa 07/15/23 Patient resting comfortable Denies complaints, denies chest pains Remains on room air Sinus rhythm Patient underwent viability study today. Pending results On dialysis, followed by renal Patient STS score estimated at 50% Further recommendations to follow 07/16/23 Patient resting comfortable, denies chest pain No new complaints Remains on room air Sinus rhythm Pending viability study results. Dialysis per renal. Patient will be discussed in the high risk conference next week. 07/17/23 Patient resting comfortable, No complaints. Remains sinus rhythm. on room air. Viability study completed EF 28% Dialysis as per renal Medical management as per cardiology Patient will be discussed in high risk conference next week. 07/18/23 Patient resting comfortable Denies chest pains On room air Dialysis planned for today Remains sinus rhythm Anemia managed per nephrology Patient will be discussed in the high risk cardiology conference Further recommendations to follow 07/19/23 Patient resting comfortable Denies chest pains Complains of heel pains On room air Sinus rhythm Patient was seen and examined with Dr. Lyon. Patient is high risk for surgical intervention. Dr. Lyon will discuss with cardiology and patient will be discussed in the high risk cardiology conference this week. Consultants: cardiology, nephrology at 1545 at 0509 RPT #:[id number] END OF REPORT [facility] 2023-07-18 18:27:00 [facility] Hospitalist Progress Note REPORT#:[id number] REPORT STATUS: Signed DATE:07/18/23 TIME: 1826 PATIENT: JOSEPH ROWLEY UNIT #: [id number] ROOM/BED: [place] [id number] : 57 AGE: 68 SEX: F ATTEND: Tanvir Prasad MD ADM AUTHOR: Tanvir Prasad MD * ALL edits or amendments must be made on the electronic/computer document * Subjective Chief complaint: No cp, no sob HPI: Patient had a fever spike yesterday was started on empiric antibiotics with UA abnormal system of UTI she is less confused and more alert per patient/family at bedside Review of Systems Constitutional: Reports: generalized weakness. Psych: Reports: depression. All systems rev neg: except as noted Objective General VS/I O: Vital Signs: Date Time Temp Pulse Resp B/P B/P Pulse O2 O2 Flow FiO2 Mean Ox Delivery Rate 07/18 1857 97.9 91 14 102/55 0.0 94 Room air 07/18 1812 98.2 85 22 102/55 98 Room air 07/18 1804 86 07/18 1800 86 26 102/55 76 99 07/18 1745 83 28 107/58 79 97 07/18 1730 77 26 106/55 77 98 07/18 1715 81 32 108/56 79 98 09/04 [...] 77 14 96/56 0.0 95 Room air / 2047 96 Room air 24 hour I O ending at 0700: 07/18 0700 07/17 1900 Intake Total 240 Output Total Balance 240 Intake, Oral 240 Number Voids 1 Output, Emesis Patient 63.9 kg Weight Weight Bed scale Measurement Method PATIENT WEIGHT: Weight (lb): 140 Weight (oz): 14.01 Weight (kg): 63.900 Medications: Active Meds + DC'd Last 24 Hrs Midodrine (PROAMATINE) 7.5 MG 0800,1200,1600 PO Epoetin Tanner-epbx (RETACRIT) 10,000 UNIT TuThSa@2100 IV Loperamide HCl (IMODIUM CAPSULE) 2 MG QID PRN PRN PO Ceftriaxone Sodium (ROCEPHIN 1000MG VIAL) 1,000 MG Q24H IV Sodium Chloride (SODIUM CHLORIDE) 10 ML Aspirin (ASPIRIN) 81 MG DAILY PO Midodrine [...] 0.9%) 250 ML ASDIR PRN IV Physical Exam General appearance: alert, awake, oriented Head/Eyes: atraumatic, normal conjunctiva/sclera, normal eyelids/periorb. Neck: full range of motion Cardiovascular: normal capillary refill, normal heart sounds, regular rate rhythm Respiratory: aerating well, clear to auscultation, symmetric expansion, no distress Abdomen: non-tender, normal bowel sounds, soft, no distention Extremities: no edema Neuro/DEMURRAGE AGENT: alert, oriented X 3 Ulcer: Type/cause: diabetic (right heel ulcer), arterial Psychiatry: depressed Results Findings/Data: Laboratory Tests 07/18 07/18 1610 1128 Chemistry Sodium [...] (Auto) (14.0 - 32.0 %) 9.2 L [place] % (Auto) (4.8 - 9.0 %) 11.8 H Eos % (Auto) (0.3 - 3.7 %) 1.7 Baso % (Auto) (0.0 - 2.0 %) 0.4 Neut # (Auto) (2.0 - 7.6 x10 3/uL) 9.87 H Lymph # (Auto) (1.0 - 3.8 x10 3/uL) 1.20 [place] # (Auto) (0.1 - 0.8 x10 3/uL) [...] - 0.1 x10 3/uL) 0.05 Diagnosis, Assessment Plan Consultants: cardiology, nephrology Free Text DxA P Notes Free text DxA P notes: 68-year-old female with a past medical history of type 1 diabetes from the age of 46 years old, end-stage renal disease, on dialysis since July 2022, hypertension who presented to her research epidemiologist for evaluation of bilateral nonhealing ulcerations of her bilateral heels for the past 3 months, and shortness of breath with exertion. Left heart catheterization showed significant for severe three-vessel coronary artery disease with severe bilateral occluded SFAs of the lower extremity. Issues as below. Suspected urinary tract infection Severe three-vessel CAD Severe peripheral vascular disease Diabetes mellitus End-stage renal failure on hemodialysis Nonhealing bilateral heel ulcerations Hypertension Hyperlipidemia CHF Mitral valve regurgitation Plan and recommendations Patient admitted into medicine Vital signs every 4 Patient Antiplatelets and statin per cardiology Seen by vascular surgery" CT surgery. Nephrology for hemodialysis. Will do basic lab work include CBC BMP now. Patient is not having significant hypoxia at this time DVT prophylaxis Restart home medications Discussed management plan in detail with patient's family. 07/13/[address] surgery and vascular surgery plans Hemodialysis was done yesterday Hemodialysis per nephrology Monitor renal function Blood sugar control with insulin pump. 07/14/2023 Fever spike last night blood cultures on empiric antibiotics for possible UTI Antibiotics changed Follow-up on cultures Follow-up on cardiothoracic surgery and oncology recommendations plan to have discussion tomorrow Blood sugars controlled Lab work otherwise stable DVT prophylaxis Hemodialysis per nephrology 07/15- take over care from [...] to heels, increase midodrine to 10 mg 3 times daily in view of persistent hypotension. 07/18 hyponatremic with sodium of 128, on hemodialysis, blood pressure has improved on midodrine, revascularization decision in a.m., daughter is at bedside, wound care. at 2048 RPT #:[id number] END OF REPORT [facility] 2023-07-18 11:48:00 [facility] [place]) Cardiothoracic Surgery Prog REPORT#:[id number] REPORT STATUS: Signed DATE:07/18/23 TIME: 1148 PATIENT: JOSEPH ROWLEY UNIT #: [id number] ROOM/BED: [place] [id number] : 57 AGE: 68 SEX: F ATTEND: Tanvir Prasad MD ADM AUTHOR: Trudy Colindres Physic * ALL edits or amendments must be made on the electronic/computer document * Subjective Chief complaint: CAD, eval for CABG PVD nonhealing lower extremity ulcers Patient resting comfortable. Denies chest pain Review of Systems Constitutional: Denies: fever, generalized weakness. Skin: Denies: rash, swelling. Allergy/Immun: Denies: itching, rhinorrhea. Eyes: Denies: itching, diplopia. Respiratory: Denies: VICENTE (dyspnea on exertion), hemoptysis. Cardiovascular: Denies: VICENTE (dyspnea on exertion), edema. GI: Denies: constipation, diarrhea. : Denies: dysuria, hematuria. Musculoskeletal: Denies: joint pain, joint swelling. Heme: Denies: bleeding, bruising. Endocrine: Denies: polydipsia, polyuria. Neuro: Denies: confusion, dizziness. All systems rev neg: except as marked Objective General VS/I O Last Documented: Result Date Time Pulse Ox 95 [...] scale Measurement Method PATIENT WEIGHT: Weight (lb): 140 Weight (oz): 14.01 Weight (kg): 63.900 Physical Exam General appearance: alert, awake, oriented HEENT: anicteric, mucosal membranes moist Cardiovascular: BP/pulses equal bilat., regular rate rhythm Respiratory: aerating well, clear to auscultation Abdomen: soft, non-tender Extremities: dry, moves all Musculoskeletal: full range of motion, painless range of motion Neuro/DEMURRAGE AGENT: alert, oriented X 3 Skin: dry, intact Ulcer: Type/cause: diabetic (right heel ulcer), arterial Diagnosis, Assessment Plan Hospital course to date: This is a very pleasant 68-year-old female with a past medical history of type 1 diabetes from the age of 46 years old, end-stage renal disease, on dialysis since July 2022, hypertension who presented to her research epidemiologist for evaluation of bilateral nonhealing ulcerations of her bilateral heels for the past 3 months, and shortness of breath with exertion. Her last echocardiogram was completed with her research epidemiologist showing an EF 20-25% with mild LVH, severe global hypokinesis, mildly dilated left atrium with moderate aortic sclerosis without stenosis, mitral valve leaflets mildly thickened with severe MR, mild to moderate TR, moderate pulmonary hypertension with an RV systolic pressure 62 mmHg. Patient underwent left heart catheterization today and was found to have severe three-vessel coronary artery disease, with severe bilateral occluded SFAs of the lower extremity. CV surgery consulted for evaluation for coronary artery bypass graft surgery Assessment/plan 1. Severe three-vessel CAD 2. Type I diabetic 3. Severe peripheral vascular disease 4. Nonhealing bilateral heel ulcerations 5. Hypertension 6. Hyperlipidemia 7. CHF Documented EF 20-25% in the outpatient setting 04/05 8. Mitral valve regurgitation Noted to be severe [...] atrial pressure. Average global longitudinal strain is -5.7. 2. Right ventricle: Systolic function is mildly to moderately reduced. Systolic pressure is severely increased. 3. Left atrium: The atrium is dilated. The end-systolic volume index (A-L) is 50 ml/m 2. 4. Mitral valve: The annulus is calcified. Prolapse cannot be excluded. There is moderate to severe regurgitation, directed posteriorly and along the left atrial wall. The effective regurgitant orifice (PISA) is 0.39 cm 2. The regurgitant volume (PISA) is 46 ml. 5. Tricuspid valve: Estimated right ventricular systolic pressure is 76 mmHg. There is moderate-severe regurgitation directed toward the septum. 6. Pericardium, extracardiac: There is a large left pleural effusion. 7. Inferior vena cava: The vessel is dilated. The respirophasic diameter changes are blunted (< 50%). Inferior vena cava diameter measures 2.2 cm. 07/13/23 Patinet resting comfortable, Denies any new complaints. On room air. Sinus rhythm. AAO x 3 Cardiac workup still underway. CTA head, abdomena nd pelvis ordered by cardiology. Patient will be presented in the high risk cardiology conference. Further recs to follow. 07/14/23 Patient resting comfortable, Denies chest pains Complains of bilateral heel ulcerations Sinus rhythm On room air Carotid Doppler showed no carotid artery stenosis Patient is considered high risk due to multiple comorbidities, ESRD, CHF, DM Patient will be discussed in the high risk conference Further recommendations to Patient was seen with Dr. Sousa 07/15/23 Patient resting comfortable Denies complaints, denies chest pains Remains on room air Sinus rhythm Patient underwent viability study today. Pending results On dialysis, followed by renal Patient STS score estimated at 50% Further recommendations to follow 07/16/23 Patient resting comfortable, denies chest pain No new complaints Remains on room air Sinus rhythm Pending viability study results. Dialysis per renal. Patient will be discussed in the high risk conference next week. 07/17/23 Patient resting comfortable, No complaints. Remains sinus rhythm. on room air. Viability study completed EF 28% Dialysis as per renal Medical management as per cardiology Patient will be discussed in high risk conference next week. 07/18/23 Patient resting comfortable Denies chest pains On room air Dialysis planned for today Remains sinus rhythm Anemia managed per nephrology Patient will be discussed in the high risk cardiology conference Further recommendations to follow Consultants: cardiology, nephrology at 1150 at 1604 RPT #:[id number] END OF REPORT [facility] 2023-07-18 10:20:00 [facility] ([facility] Nephrology Progress Note REPORT#:[id number] REPORT STATUS: Signed DATE:07/18/23 TIME: 1020 PATIENT: JOSEPH ROWLEY UNIT #: [id number] ROOM/BED: [place] [id number] : 57 AGE: 68 SEX: F ATTEND: Tanvir Prasad MD ADM AUTHOR: Winnie Noyola MD * ALL edits or amendments must be made on the electronic/computer document * Subjective Comments: On dialysis, tolerating it well Objective General VS/I O: Vital Signs: Date Time Temp Pulse Resp B/P B/P Pulse O2 O2 Flow FiO2 Mean Ox Delivery Rate 07/18 626 98.6 76 15 96/60 72.1 95 Room air 07/18 0441 98.6 78 14 103/53 0.0 94 Room air 07/17 2349 98.4 77 14 96/56 0.0 95 Room air / 2047 96 Room air 07/17 1927 97.3 72 14 97/54 0.0 97 Room air / 1846 71 19 97 09/03 1800 71 [...] scale Measurement Method PATIENT WEIGHT: Weight (lb): 140 Weight (oz): 14.01 Weight (kg): 63.900 Medications Active Meds + DC'd Last 24 Hrs Midodrine (PROAMATINE) 7.5 MG 0800,1200,1600 PO Epoetin Tanner-epbx (RETACRIT) 10,000 UNIT TuThSa@2100 IV Sterile Water (WATER FOR INJECTION) 2.2 ML ASDIR PRN IV (DC) Sterile Water (WATER FOR INJECTION) 2.2 ML ASDIR PRN IV (DC) Loperamide HCl (IMODIUM CAPSULE) 2 MG QID PRN PRN PO Ceftriaxone Sodium (ROCEPHIN 1000MG VIAL) 1,000 MG Q24H IV Sodium Chloride (SODIUM CHLORIDE) 10 ML Aspirin (ASPIRIN) 81 MG DAILY PO Midodrine [...] 0.9%) 250 ML ASDIR PRN IV Physical Exam General appearance: alert, awake, oriented Head/eyes: atraumatic, normocephalic, PERRLA ENT: moist mucous membranes Neck: no JVD, no lymphadenopathy, no masses or swelling Cardiovascular: normal heart sounds, regular rate and rhythm, no murmur, no rub Respiratory: aerating well, clear to auscultation, normal breath sounds, no distress Abdomen: non-tender, normal bowel sounds, soft, no rebound Genitourinary: no bladder distention, no flank pain, no urinary catheter Extremities: no edema, no gangrene Neuro/DEMURRAGE AGENT: alert, oriented X 3, CN II-XII intact, normal speech Ulcer: Type/cause: diabetic (right heel ulcer), arterial Results Findings/Data: Laboratory Tests 07/17 07/17 07/17 1930 1737 1219 Chemistry POC Glucose (70 - 110 MG/DL) 91 45 L 163 H Diagnosis, Assessment Plan Free Text A P: 1. ESRD continue with dialysis Tuesday. Currently on hemodialysis, tolerating it well 2. Hypotension on midodrine 3. Coronary disease needs CABG, CT surgery on case 4. Diabetes type 1 per primary team 5. Anemia of CKD on MATT as hemoglobin less than 10, increase to 10,000 unit 3 times a week Consultants: cardiology, nephrology at 1609 RPT #:[id number] END OF REPORT [facility] 2023-07-18 08:12:00 [facility] ([facility]) Cardiology Progress Note REPORT#:[id number] REPORT STATUS: Signed DATE:07/18/23 TIME: 811 PATIENT: JOSEPH ROWLEY UNIT #: [id number] [place] [facility] : [place] AGE: 68 SEX: F ATTEND: Tanvir Prasad MD ADM AUTHOR: Karmen Byrne NP * ALL edits or amendments must be made on the electronic/computer document * Subjective Chief complaint: stable Objective General VS/I O: Laboratory Tests 07/18/23 1128: [Embedded Image Not Available] 07/17/23 0410: [Embedded Image Not Available] 07/17/23 0409: [Embedded Image Not Available] Current Medications Sig/Stephan Start time Last Medication Dose [...] 0859 0857 Midodrine 5 MG 0800,1200,1600 07/13 08 DC 07/17 PO 08/12 0759 1730 Acetaminophen [...] Flow FiO2 Mean Ox Delivery Rate 07/18 0626 37.0 76 15 96/60 72.1 95 Room air 07/18 0441 37.0 78 14 103/53 0.0 94 Room air 07/17 2349 36.9 77 14 96/56 0.0 95 Room air 07/17 2047 96 Room air 07/17 1927 36.3 72 14 97/54 0.0 97 Room air / 1846 71 19 97 09/03 1800 71 22 100 09/ 1743 36.3 15 99/55 0.0 99 / 1735 70 20 99/55 74 97 /03 1700 70 24 98 /03 1600 65 21 96 09/03 1500 70 27 98 09/03 1400 71 19 98 PATIENT WEIGHT: Weight (lb): 140 Weight (oz): 14.01 Weight (kg): 63.900 Physical Exam General appearance: alert, awake, oriented, no acute distress, pleasant Neck: non-tender, no JVD Cardiovascular: CV assessment: regular rate and rhythm Murmur assessment: heart murmur Respiratory: clear to auscultation, no distress Abdomen: soft, non-tender, normal bowel sounds, no distention Genitourinary: no flank pain, no urinary catheter Lower extremity: LE assessment: abnormal pedal pulse, abnormal peripheral pulse Musculoskeletal: normal inspection Neuro/DEMURRAGE AGENT: alert, oriented X 3, normal speech Skin: right heel ulcer Ulcer: Type/cause: diabetic (right heel ulcer), arterial Psychiatry: normal affect, normal mood Diagnosis, Assessment Plan Problem List/A P: 1. HFrEF (heart failure with reduced ejection fraction) 2. Coronary artery disease 3. ESRD (end stage renal disease) on dialysis 4. Mitral regurgitation 5. PAD (peripheral artery disease) Consultants: cardiology, nephrology Free Text DxA P Notes Free Text DxA P Notes: 68 YO female with MHx of IDDM on [...] king who is the MPOA. 1. Multivessel CAD * Aspirin, statin * extremely elevated STS risk score about 50% * nuclear viability study reviewed- acar at apex otherwise viable * CTA head, neck, abdomen, pelvis to evaluate subclavian artery, carotid arteries, mesenteric arteries reviewed 2. Severe PAD with nonhealing foot ulcers * Vascular surgery recommendation noted 3. Mitral regurgitation * moderate to severe MR on TTE with contrast * JULIA reviewed 4. Ischemic cardiomyopathy/HFrEF * volume management per HD * on midodrine d/t chronic hypotension * no ACEI or ARB d/t chronic hypotension requiring midodrine 5. ESRD - on HD * nephrology following 6. IDDM * per primary team Patient will be presented in the conference on Tuesday to decide on high risk revascularization (likely PCI) vs medical therapy continue medical therapy on RA, vs stable MDM by Dr. Scott at 1302 at 1873 RPT #:[id number] END OF REPORT [facility] 2023-07-17 21:24:00 [facility] Hospitalist Progress Note REPORT#:[id number] REPORT STATUS: Signed DATE:07/17/23 TIME: 2123 PATIENT: JOSEPH ROWLEY UNIT #: [id number] ROOM/BED: 3356-1 : 57 AGE: 68 SEX: F ATTEND: Tanvir Prasad MD ADM AUTHOR: Tanvir Prasad MD * ALL edits or amendments must be made on the electronic/computer document * Subjective Chief complaint: No cp, no sob HPI: Patient had a fever spike yesterday was started on empiric antibiotics with UA abnormal system of UTI she is less confused and more alert per patient/family at bedside Review of Systems Constitutional: Reports: generalized weakness. All systems rev neg: except as noted Free Text ROS Notes Free Text ROS Notes: All 14 systems reviewed positive findings indicated above rest of the review systems negative Objective General VS/I O: Vital Signs: Date Time Temp Pulse Resp B/P B/P Pulse O2 O2 Flow FiO2 Mean Ox Delivery Rate 07/17 1927 97.3 72 14 97/54 0.0 97 Room air 07/17 1846 71 19 97 09/ 1800 71 22 100 09/03 1743 97.3 [...] Output, 1200 Hemodialysis PATIENT WEIGHT: Weight (lb): 131 Weight (oz): 6.33 Weight (kg): 59.600 Medications: Active Meds + DC'd Last 24 Hrs Epoetin Tanner-epbx (RETACRIT) 10,000 UNIT TuThSa@2100 IV Sterile Water (WATER FOR INJECTION) 2.2 ML ASDIR PRN IV (DC) Sterile Water (WATER FOR INJECTION) 2.2 ML ASDIR PRN IV (DC) Loperamide HCl (IMODIUM CAPSULE) 2 MG QID PRN PRN PO Ceftriaxone Sodium (ROCEPHIN 1000MG VIAL) 1,000 MG Q24H IV Sodium Chloride (SODIUM CHLORIDE) 10 ML Aspirin (ASPIRIN) 81 MG DAILY PO Midodrine [...] 0.9%) 250 ML ASDIR PRN IV Physical Exam General appearance: alert, awake, oriented Head/Eyes: atraumatic, normal conjunctiva/sclera, normal eyelids/periorb. Neck: full range of motion Cardiovascular: normal capillary refill, normal heart sounds, regular rate rhythm Respiratory: aerating well, clear to auscultation, symmetric expansion, no distress Abdomen: non-tender, normal bowel sounds, soft, no distention Extremities: no edema Neuro/DEMURRAGE AGENT: alert, oriented X 3 Ulcer: Type/cause: diabetic (right heel ulcer), arterial Results Findings/Data: Laboratory Tests 07/17 07/17 07/17 07/17 07/17 1930 1737 1219 0410 0410 Chemistry POC Glucose (70 - 110 MG/DL) 91 45 L 163 H Hemoglobin A1c (4.8 - 6.0 %A1C) 7.5 H B-Natriuretic Peptide (0 - 100 > 5000.0 H PG/ML) 07/17 0409 Chemistry Sodium (134 - 147 [...] (Auto) (14.0 - 32.0 %) 11.4 L [place] % (Auto) (4.8 - 9.0 %) 9.5 H Eos % (Auto) (0.3 - 3.7 %) 0.3 Baso % (Auto) (0.0 - 2.0 %) 0.2 Neut # (Auto) (2.0 - 7.6 x10 3/uL) 9.07 H Lymph # (Auto) (1.0 - 3.8 x10 3/uL) 1.32 [place] # (Auto) (0.1 - 0.8 x10 3/uL) [...] - 0.1 x10 3/uL) 0.00 Diagnosis, Assessment Plan Consultants: cardiology, nephrology Free Text DxA P Notes Free text DxA P notes: 68-year-old female with a past medical history of type 1 diabetes from the age of 46 years old, end-stage renal disease, on dialysis since July 2022, hypertension who presented to her research epidemiologist for evaluation of bilateral nonhealing ulcerations of her bilateral heels for the past 3 months, and shortness of breath with exertion. Left heart catheterization showed significant for severe three-vessel coronary artery disease with severe bilateral occluded SFAs of the lower extremity. Issues as below. Suspected urinary tract infection Severe three-vessel CAD Severe peripheral vascular disease Diabetes mellitus End-stage renal failure on hemodialysis Nonhealing bilateral heel ulcerations Hypertension Hyperlipidemia CHF Mitral valve regurgitation Plan and recommendations Patient admitted into medicine Vital signs every 4 Patient Antiplatelets and statin per cardiology Seen by vascular surgery" CT surgery. Nephrology for hemodialysis. Will do basic lab work include CBC BMP now. Patient is not having significant hypoxia at this time DVT prophylaxis Restart home medications Discussed management plan in detail with patient's family. 07/13/[address] surgery and vascular surgery plans Hemodialysis was done yesterday Hemodialysis per nephrology Monitor renal function Blood sugar control with insulin pump. 07/14/2023 Fever spike last night blood cultures on empiric antibiotics for possible UTI Antibiotics changed Follow-up on cultures Follow-up on cardiothoracic surgery and oncology recommendations plan to have discussion tomorrow Blood sugars controlled Lab work otherwise stable DVT prophylaxis Hemodialysis per nephrology 07/15- take over care from [...] to heels, increase midodrine to 10 mg 3 times daily in view of persistent hypotension. at 2129 RPT #:[id number] END OF REPORT [facility] 2023-07-17 19:28:00 [facility] Nephrology Progress Note REPORT#:[id number] REPORT STATUS: Signed DATE:07/17/23 TIME: 1927 PATIENT: JOSEPH ROWLEY UNIT #: [id number] ROOM/BED: [place] [address] : 57 AGE: 68 SEX: F ATTEND: Tanvir Prasad MD ADM AUTHOR: Tomasa Feng MD * ALL edits or amendments must be made on the electronic/computer document * Subjective Chief complaint: follow up of ESRD Review of Systems Constitutional: Reports: generalized weakness. All systems rev neg: except as marked Objective General VS/I O: Vital Signs: Date Time Temp Pulse Resp B/P B/P Pulse O2 O2 Flow FiO2 Mean Ox Delivery Rate 07/17 1927 97.3 72 14 97/54 0.0 97 Room air 07/17 1846 71 19 97 / 1800 71 22 100 07/17 1743 97.3 15 99/55 0.0 99 07/17 1735 70 20 99/55 74 97 / 1700 70 24 98 / 1600 65 21 96 / 1500 70 27 98 / 1400 71 19 98 / 1222 85 98 07/17 1221 97.5 81 16 96/61 72.9 98 / 1200 84 97 07/17 1100 85 30 100 07/17 0917 93 97 07/17 0900 85 15 96 07/17 0833 98.2 82 14 97/60 72.7 95 07/17 0800 82 21 92 07/17 0700 84 27 97 07/17 0550 82 95/52 66 94 07/17 0300 93 14 82/46 61 96 / 0230 88 23 92/54 68 94 07/16 [...] Output, 1200 Hemodialysis PATIENT WEIGHT: Weight (lb): 131 Weight (oz): 6.33 Weight (kg): 59.600 Medications Active Meds + DC'd Last 24 Hrs Epoetin Tanner-epbx (RETACRIT) 10,000 UNIT TuThSa@2100 IV Sterile Water (WATER FOR INJECTION) 2.2 ML ASDIR PRN IV (DC) Sterile Water (WATER FOR INJECTION) 2.2 ML ASDIR PRN IV (DC) Loperamide HCl (IMODIUM CAPSULE) 2 MG QID PRN PRN PO Ceftriaxone Sodium (ROCEPHIN 1000MG VIAL) 1,000 MG Q24H IV Sodium Chloride (SODIUM CHLORIDE) 10 ML Aspirin (ASPIRIN) 81 MG DAILY PO Midodrine [...] 0.9%) 250 ML ASDIR PRN IV Physical Exam General appearance: alert, awake, oriented Head/eyes: atraumatic, normocephalic, PERRLA ENT: moist mucous membranes Neck: no JVD, no lymphadenopathy, no masses or swelling Cardiovascular: normal heart sounds, regular rate and rhythm, no murmur, no rub Respiratory: aerating well, clear to auscultation, normal breath sounds, no distress Abdomen: non-tender, normal bowel sounds, soft, no rebound Genitourinary: no bladder distention, no flank pain, no urinary catheter Extremities: no edema, no gangrene Neuro/DEMURRAGE AGENT: alert, oriented X 3, CN II-XII intact, normal speech Ulcer: Type/cause: diabetic (right heel ulcer), arterial Results Findings/Data: Laboratory Tests 07/17 07/17 07/17 07/17 07/17 1737 1219 0410 0410 0409 Chemistry Sodium (134 - 147 mEq/L) [...] 122 LDL Cholesterol Measurd (0 - 100 77.0 mg/dL) HDL Cholesterol (40 - 60 MG/DL) 23.0 L Cholesterol/HDL Ratio (3.27 - 4.44 5.30 H RATIO) Laboratory Tests 07/17 0410 Hematology WBC (4.5 [...] (Auto) (14.0 - 32.0 %) 11.4 L [place] % (Auto) (4.8 - 9.0 %) 9.5 H Eos % (Auto) (0.3 - 3.7 %) 0.3 Baso % (Auto) (0.0 - 2.0 %) 0.2 Neut # (Auto) (2.0 - 7.6 x10 3/uL) 9.07 H Lymph # (Auto) (1.0 - 3.8 x10 3/uL) 1.32 [place] # (Auto) (0.1 - 0.8 x10 3/uL) [...] - 0.1 x10 3/uL) 0.00 Diagnosis, Assessment Plan Free Text A P: 1. ESRD continue with TTS dialysis this week [...] week Consultants: cardiology, nephrology at 1930 RPT #:[id number] END OF REPORT [facility] 2023-07-17 10:44:00 [facility] ([facility]) Cardiology Progress Note REPORT#:[id number] REPORT STATUS: Signed DATE:07/17/23 TIME: 1044 PATIENT: JOSEPH ROWLEY UNIT #: [id number] ROOM/BED: [place] [address] : 57 AGE: 68 SEX: F ATTEND: Tanvir Prasad MD ADM AUTHOR: Karmen Byrne NP * ALL edits or amendments must be made on the electronic/computer document * Subjective Chief complaint: visiting with family Objective General VS/I O: Laboratory Tests 07/17/23 0410: [Embedded Image Not Available] 07/17/23 0409: [Embedded Image Not Available] Current Medications Sig/Stephan Start time Last Medication Dose Route Stop Time Status Admin Epoetin Tanner-epbx 10,000 UNIT TuTtoan@2100 07/16 2100 AC 07/16 IV 08/13 205 2157 Alteplase, 2 MG ONCE ONE 07/16 1515 [...] 0842 Ceftriaxone Sodium 1,000 MG Q24H 07/14 900 AC 07/17 Sodium Chloride 10 ML IV 07/19 0859 0842 Aspirin 81 MG DAILY 07/13 900 AC 07/17 PO 08/12 0859 0842 Midodrine [...] 0833 36.8 82 14 97/60 72.7 95 / 0550 82 95/52 66 94 / 0300 93 14 82/46 61 96 / 0230 88 23 92/54 68 94 07/16 2330 103 30 113/62 80 99 07/165 96 31 107/56 80 97 07/16 2100 96 23 112/61 81 99 07/16 2045 104 23 110/55 77 100 07/16 2038 107 19 115/56 81 100 07/16 2015 90 24 86/48 62 98 07/16 2015 36.3 92 21 96/58 98 Room air 07/16 2000 88 27 97/51 70 96 09/02 1845 [...] 82 29 99 PATIENT WEIGHT: Weight (lb): 131 Weight (oz): 6.33 Weight (kg): 59.600 Physical Exam General appearance: alert, awake, oriented, no acute distress, pleasant Neck: non-tender, no JVD Cardiovascular: CV assessment: regular rate and rhythm Murmur assessment: heart murmur Respiratory: clear to auscultation, no distress Abdomen: soft, non-tender, normal bowel sounds, no distention Genitourinary: no flank pain, no urinary catheter Lower extremity: LE assessment: abnormal pedal pulse, abnormal peripheral pulse Musculoskeletal: normal inspection Neuro/DEMURRAGE AGENT: alert, oriented X 3, normal speech Skin: right heel ulcer Ulcer: Type/cause: diabetic (right heel ulcer), arterial Psychiatry: normal affect, normal mood Diagnosis, Assessment Plan Problem List/A P: 1. HFrEF (heart failure with reduced ejection fraction) 2. Coronary artery disease 3. ESRD (end stage renal disease) on dialysis 4. Mitral regurgitation 5. PAD (peripheral artery disease) Consultants: cardiology, nephrology Free Text DxA P Notes Free Text DxA P Notes: 68 YO female with MHx of IDDM on [...] niece who is the MPOA. 1. Multivessel CAD * Aspirin, statin * extremely elevated STS risk score about 50% * nuclear viability study reviewed- acar at apex otherwise viable * CTA head, neck, abdomen, pelvis to evaluate subclavian artery, carotid arteries, mesenteric arteries reviewed 2. Severe PAD with nonhealing foot ulcers * Vascular surgery recommendation noted 3. Mitral regurgitation * moderate to severe MR on TTE with contrast * JULIA reviewed 4. Ischemic cardiomyopathy/HFrEF * volume management per HD * on midodrine d/t chronic hypotension * no ACEI or ARB d/t chronic hypotension requiring midodrine 5. ESRD - on HD * nephrology following 6. IDDM * per primary team Patient will be presented in the conference on Tuesday to decide on high risk revascularization (likely PCI) vs medical therapy continue medical therapy on RA, vs stable MDM by Dr. Scott at 1240 at 1891 RPT #:[id number] END OF REPORT [facility] 2023-07-17 09:19:00 [facility] Cardiothoracic Surgery Prog REPORT#:[id number] REPORT STATUS: Signed DATE:07/17/23 TIME: 918 PATIENT: JOSEPH ROWLEY UNIT #: [id number] ROOM/BED: [facility] [place] : 57 AGE: 68 SEX: F ATTEND: Tanvir Prasad MD ADM AUTHOR: Trudy Colindres Physic * ALL edits or amendments must be made on the electronic/computer document * Subjective Chief complaint: CAD, eval for CABG PVD nonhealing lower extremity ulcers Patient resting comfortable. Review of Systems Constitutional: Denies: fever, generalized weakness. Skin: Denies: rash, swelling. Allergy/Immun: Denies: itching, rhinorrhea. Eyes: Denies: itching, diplopia. Respiratory: Denies: VICENTE (dyspnea on exertion), hemoptysis. Cardiovascular: Denies: VICENTE (dyspnea on exertion), edema. GI: Denies: constipation, diarrhea. : Denies: dysuria, hematuria. Musculoskeletal: Denies: joint pain, joint swelling. Heme: Denies: bleeding, bruising. Endocrine: Denies: polydipsia, polyuria. Neuro: Denies: confusion, dizziness. All systems rev neg: except as marked Objective Physical Exam General appearance: alert, awake, oriented HEENT: anicteric, mucosal membranes moist Cardiovascular: BP/pulses equal bilat., regular rate rhythm Respiratory: aerating well, clear to auscultation Abdomen: soft, non-tender Extremities: dry, moves all Musculoskeletal: full range of motion, painless range of motion Neuro/DEMURRAGE AGENT: alert, oriented X 3 Skin: dry, intact Ulcer: Type/cause: diabetic (right heel ulcer), arterial Diagnosis, Assessment Plan Hospital course to date: This is a very pleasant 68-year-old female with a past medical history of type 1 diabetes from the age of 46 years old, end-stage renal disease, on dialysis since July 2022, hypertension who presented to her research epidemiologist for evaluation of bilateral nonhealing ulcerations of her bilateral heels for the past 3 months, and shortness of breath with exertion. Her last echocardiogram was completed with her research epidemiologist showing an EF 20-25% with mild LVH, severe global hypokinesis, mildly dilated left atrium with moderate aortic sclerosis without stenosis, mitral valve leaflets mildly thickened with severe MR, mild to moderate TR, moderate pulmonary hypertension with an RV systolic pressure 62 mmHg. Patient underwent left heart catheterization today and was found to have severe three-vessel coronary artery disease, with severe bilateral occluded SFAs of the lower extremity. CV surgery consulted for evaluation for coronary artery bypass graft surgery Assessment/plan 1. Severe three-vessel CAD 2. Type I diabetic 3. Severe peripheral vascular disease 4. Nonhealing bilateral heel ulcerations 5. Hypertension 6. Hyperlipidemia 7. CHF Documented EF 20-25% in the outpatient setting 04/05 8. Mitral valve regurgitation Noted to be severe [...] atrial pressure. Average global longitudinal strain is -5.7. 2. Right ventricle: Systolic function is mildly to moderately reduced. Systolic pressure is severely increased. 3. Left atrium: The atrium is dilated. The end-systolic volume index (A-L) is 50 ml/m 2. 4. Mitral valve: The annulus is calcified. Prolapse cannot be excluded. There is moderate to severe regurgitation, directed posteriorly and along the left atrial wall. The effective regurgitant orifice (PISA) is 0.39 cm 2. The regurgitant volume (PISA) is 46 ml. 5. Tricuspid valve: Estimated right ventricular systolic pressure is 76 mmHg. There is moderate-severe regurgitation directed toward the septum. 6. Pericardium, extracardiac: There is a large left pleural effusion. 7. Inferior vena cava: The vessel is dilated. The respirophasic diameter changes are blunted (< 50%). Inferior vena cava diameter measures 2.2 cm. 07/13/23 Patinet resting comfortable, Denies any new complaints. On room air. Sinus rhythm. AAO x 3 Cardiac workup still underway. CTA head, abdomena nd pelvis ordered by cardiology. Patient will be presented in the high risk cardiology conference. Further recs to follow. 07/14/23 Patient resting comfortable, Denies chest pains Complains of bilateral heel ulcerations Sinus rhythm On room air Carotid Doppler showed no carotid artery stenosis Patient is considered high risk due to multiple comorbidities, ESRD, CHF, DM Patient will be discussed in the high risk conference Further recommendations to Patient was seen with Dr. Sousa 07/15/23 Patient resting comfortable Denies complaints, denies chest pains Remains on room air Sinus rhythm Patient underwent viability study today. Pending results On dialysis, followed by renal Patient STS score estimated at 50% Further recommendations to follow 07/16/23 Patient resting comfortable, denies chest pain No new complaints Remains on room air Sinus rhythm Pending viability study results. Dialysis per renal. Patient will be discussed in the high risk conference next week. 07/17/23 Patient resting comfortable, No complaints. Remains sinus rhythm. on room air. Viability study completed EF 28% Dialysis as per renal Medical management as per cardiology Patient will be discussed in high risk conference next week. Consultants: cardiology, nephrology at 0922 at 1604 RPT #:[id number] END OF REPORT [facility] 2023-07-16 19:07:00 [facility] ([facility]) Nephrology Progress Note REPORT#:[id number] REPORT STATUS: Signed DATE:07/16/23 TIME: 1906 PATIENT: JOSEPH ROWLEY UNIT #: [id number] ROOM/BED: [place] [id number] : 57 AGE: 68 SEX: F ATTEND: Tanvir Prasad MD ADM AUTHOR: Tomasa Feng MD * ALL edits or amendments must be made on the electronic/computer document * Subjective Chief complaint: follow up of ESRD Review of Systems Constitutional: Reports: generalized weakness. All systems rev neg: except as marked Objective General VS/I O: Vital Signs: Date Time Temp Pulse Resp [...] 75 14 104/52 0.0 97 Room air 09/ 1125 75 20 104/52 75 98 09/02 1100 74 20 95 09/02 1000 77 19 95 09/02 0929 99 Room air 09/ 0900 80 28 100 09/02 0800 77 26 99 09/02 0709 97.9 76 14 104/55 0.0 99 Room air 09/ 0708 76 26 104/55 77 99 09/02 0700 77 28 97 09/02 0512 97.7 84 13 116/57 76.9 98 Room air 09/ 0000 76 20 101/52 73 98 09/ 2339 98.1 77 13 101/51 0.0 99 Room air / 2200 74 19 107/54 77 100 09 2014 72 111/51 74 100 07/15 24 hour I O ending at 0700: 07/16 0700 07/15 1900 Intake Total Output Total Balance Number 3 Bowel Movements Number Voids 1 Patient 59.6 kg 57.606 kg Weight PATIENT WEIGHT: Weight (lb): 131 Weight (oz): 6.33 Weight (kg): 59.600 Medications Active Meds + DC'd Last 24 Hrs Epoetin Tanner-epbx (RETACRIT) 10,000 UNIT TuTa@2100 IV Alteplase, Recombinant (CATHFLO ACTIVASE) 2 MG ONCE ONE IV-CATH (DC) Alteplase, Recombinant (CATHFLO ACTIVASE) 2 MG ONCE ONE IV-CATH (DC) Sterile Water (WATER FOR INJECTION) 2.2 ML ASDIR PRN IV Sterile Water (WATER FOR INJECTION) 2.2 ML ASDIR PRN IV Loperamide HCl (IMODIUM CAPSULE) 2 MG QID PRN PRN PO Benzocaine/Butamben/Tetracaine HCl (CETACAINE) 1 APPLIC ASDIR PRN MM (DC ) Fentanyl Citrate (SUBLIMAZE) 100 MCG ASDIR PRN IV (DC) Flumazenil (ROMAZICON) 0.2 MG ASDIR PRN IV (DC) Midazolam HCl (VERSED) 2 MG ASDIR PRN IV (DC) Naloxone HCl (NARCAN) 0.4 MG ASDIR PRN IV (DC) Epoetin Tanner-epbx (RETACRIT) 4,000 UNIT TuThSa@2100 IV (DC) Ceftriaxone Sodium (ROCEPHIN 1000MG VIAL) 1,000 MG Q24H IV Sodium Chloride (SODIUM CHLORIDE) 10 ML Aspirin (ASPIRIN) 81 MG DAILY PO Midodrine [...] 0.9%) 250 ML ASDIR PRN IV Physical Exam General appearance: alert, awake, oriented Head/eyes: atraumatic, normocephalic, PERRLA ENT: moist mucous membranes Neck: no JVD, no lymphadenopathy, no masses or swelling Cardiovascular: normal heart sounds, regular rate and rhythm, no murmur, no rub Respiratory: aerating well, clear to auscultation, normal breath sounds, no distress Abdomen: non-tender, normal bowel sounds, soft, no rebound Genitourinary: no bladder distention, no flank pain, no urinary catheter Extremities: no edema, no gangrene Neuro/DEMURRAGE AGENT: alert, oriented X 3, CN II-XII intact, normal speech Ulcer: Type/cause: diabetic (right heel ulcer), arterial Results Findings/Data: Laboratory Tests 07/16 0819 Chemistry POC Glucose (70 - 110 MG/DL) 226 H Microbiology Date/Time Procedure - Status Source Growth 07/16 044 MSSA Surveillance Screen - COMP NASAL Diagnosis, Assessment Plan Free Text A P: 1. ESRD continue with TTS dialysis this week and then switch her back to Tuesday next week. getting Hd today catheter did not work initially, had to [...] week Consultants: cardiology, nephrology at 1908 RPT #:[id number] END OF REPORT [facility] 2023-07-16 15:25:00 [facility] ([facility] Hospitalist Progress Note REPORT#:[id number] REPORT STATUS: Signed DATE:07/16/23 TIME: 1525 PATIENT: JOSEPH ROWLEY UNIT #: [id number] ROOM/BED: [place] [address] : 57 AGE: 68 SEX: F ATTEND: Tanvir Prasad MD ADM AUTHOR: Tanvir Prasad MD * ALL edits or amendments must be made on the electronic/computer document * Subjective Chief complaint: she is seen in the stress lab .no cp no sob HPI: Patient had a fever spike yesterday was started on empiric antibiotics with UA abnormal system of UTI she is less confused and more alert per patient/family at bedside Review of Systems Free Text ROS Notes Free Text ROS Notes: All 14 systems reviewed positive findings indicated above rest of the review systems negative Objective Physical Exam Head/Eyes: atraumatic, normal conjunctiva/sclera, normal eyelids/periorb. Neck: full range of motion Cardiovascular: normal capillary refill, normal heart sounds, regular rate rhythm Respiratory: aerating well, clear to auscultation, symmetric expansion, no distress Abdomen: non-tender, normal bowel sounds, soft, no distention Neuro/DEMURRAGE AGENT: alert, oriented X 3 Ulcer: Type/cause: diabetic (right heel ulcer), arterial Diagnosis, Assessment Plan Consultants: cardiology, nephrology Free Text DxA P Notes Free text DxA P notes: 68-year-old female with a past medical history of type 1 diabetes from the age of 46 years old, end-stage renal disease, on dialysis since July 2022, hypertension who presented to her research epidemiologist for evaluation of bilateral nonhealing ulcerations of her bilateral heels for the past 3 months, and shortness of breath with exertion. Left heart catheterization showed significant for severe three-vessel coronary artery disease with severe bilateral occluded SFAs of the lower extremity. Issues as below. Suspected urinary tract infection Severe three-vessel CAD Severe peripheral vascular disease Diabetes mellitus End-stage renal failure on hemodialysis Nonhealing bilateral heel ulcerations Hypertension Hyperlipidemia CHF Mitral valve regurgitation Plan and recommendations Patient admitted into medicine Vital signs every 4 Patient Antiplatelets and statin per cardiology Seen by vascular surgery" CT surgery. Nephrology for hemodialysis. Will do basic lab work include CBC BMP now. Patient is not having significant hypoxia at this time DVT prophylaxis Restart home medications Discussed management plan in detail with patient's family. 07/13/[address] surgery and vascular surgery plans Hemodialysis was done yesterday Hemodialysis per nephrology Monitor renal function Blood sugar control with insulin pump. 07/14/2023 Fever spike last night blood cultures on empiric antibiotics for possible UTI Antibiotics changed Follow-up on cultures Follow-up on cardiothoracic surgery and oncology recommendations plan to have discussion tomorrow Blood sugars controlled Lab work otherwise stable DVT prophylaxis Hemodialysis per nephrology 07/15- take over care from [...] heel ulcers, mitral valve regurgitation. at 1821 [facility] #:[id number] END OF REPORT [facility] 2023-07-16 11:48:00 [facility] Cardiology Progress Note REPORT#:[id number] REPORT STATUS: Signed DATE:07/16/23 TIME: 1148 PATIENT: JOSEPH ROWLEY UNIT #: [id number] ROOM/BED: [place] [address] : 57 AGE: 68 SEX: F ATTEND: Tanvir Prasad MD ADM AUTHOR: Karmen Byrne NP * ALL edits or amendments must be made on the electronic/computer document * Subjective Chief complaint: sleeping vs stable Objective General VS/I O: Laboratory Tests 07/15/23 0352: [Embedded Image Not Available] 07/15/23 0351: [Embedded Image Not Available] Current Medications Sig/Stephan Start time Last Medication Dose Route Stop Time Status Admin Epoetin Tanner-epbx 10,000 UNIT TuTa@07/16 AC IV 08/13 2059 Loperamide HCl 2 MG QID PRN PRN 07/15 2315 AC 07/16 PO 08/14 2314 0701 Benzocaine/Butamben/ 0 .STK-MED ONE 07/15 1541 DC Tetracaine HCl MM Etomidate 0 .STK-MED ONE 07/15 152 DC IV Lidocaine HCl 0 .STK-MED ONE 07/15 1526 DC .ROUTE Propofol 20 ML .STK-MED ONE 07/15 1526 DC IV Iopamidol 100 ML .STK-MED ONE 07/15 1310 DC 07/15 IV 07/15 1311 1310 Iopamidol 100 ML .STK-MED ONE 07/15 1308 DC 07/15 IV 07/15 1309 1308 Benzocaine/Butamben/ 1 APPLIC ASDIR PRN 07/15 930 DC Tetracaine HCl MM 07/16 0921 Fentanyl Citrate 100 MCG ASDIR PRN 07/15 0930 DC IV 07/16 0921 Flumazenil 0.2 MG ASDIR PRN 07/15 0930 DC IV 07/16 0921 Midazolam HCl 2 MG ASDIR PRN 07/15 0930 DC IV 07/16 0921 Naloxone HCl 0.4 MG ASDIR PRN 07/15 0930 DC IV 07/16 0921 Epoetin Tanner-epbx 4,000 UNIT TuTa@07/14 2100 DC 07/14 IV 07/16 Ceftriaxone Sodium 1,000 MG Q24H 07/14 900 AC 07/16 Sodium Chloride 10 ML IV 07/19 859 0850 Aspirin 81 MG DAILY 07/13 900 AC 07/16 PO 08/12 0859 0850 Midodrine 5 MG 0800,1200,1600 07/13 800 AC 07/16 PO 08/12 0759 0700 Acetaminophen [...] 112/53 76 99 PATIENT WEIGHT: Weight (lb): 131 Weight (oz): 6.33 Weight (kg): 59.600 Physical Exam General appearance: sleeping comfortably Neck: non-tender, no JVD Cardiovascular: CV assessment: regular rate and rhythm Murmur assessment: heart murmur Respiratory: clear to auscultation, no distress Abdomen: soft, non-tender, normal bowel sounds, no distention Genitourinary: no flank pain, no urinary catheter Lower extremity: LE assessment: abnormal pedal pulse, abnormal peripheral pulse Musculoskeletal: normal inspection Neuro/DEMURRAGE AGENT: alert, oriented X 3, normal speech Skin: right heel ulcer Ulcer: Type/cause: diabetic (right heel ulcer), arterial Psychiatry: normal affect, normal mood Results Radiology data: Recent Impressions: CAT SCAN - CTA ABD PEL W CONT 07/15 1156 Report Impression - Status: SIGNED Entered: 07/15/20232200 IMPRESSION: 1. No evidence of aneurysm or dissection involving the thoracic or abdominal aorta. 2. No evidence of carotid or subclavian stenosis. 3. 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 4. Cholelithiasis. Impression By: Neelam Mitchell M.D. CAT SCAN - CT ANGIO CHEST 07/15 1156 Report Impression - Status: SIGNED Entered: 07/15/20232200 IMPRESSION: 1. No evidence of aneurysm or dissection involving the thoracic or abdominal aorta. 2. No evidence of carotid or subclavian stenosis. 3. 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 4. Cholelithiasis. Impression By: Neelam Mitchell M.D. CAT SCAN - CTA HEAD 07/15 1157 Report Impression - Status: SIGNED Entered: 07/15/20232058 IMPRESSION: 1. Multiple filling defects in the right M1 segment suspicious for thrombus. These are of uncertain chronicity. Correlate with symptoms and consider further evaluation with conventional angiogram and MRI of the brain. 2. No evidence of carotid stenosis. Impression By: Neelam Mitchell M.D. CAT SCAN - CT ANGIO NECK 07/15 1157 Report Impression - Status: SIGNED Entered: 07/15/20232058 IMPRESSION: 1. Multiple filling defects in the right M1 segment suspicious for thrombus. These are of uncertain chronicity. Correlate with symptoms and consider further evaluation with conventional angiogram and MRI of the brain. 2. No evidence of carotid stenosis. Impression By: Neelam Mitchell M.D. Diagnosis, Assessment Plan Problem List/A P: 1. HFrEF (heart failure with reduced ejection fraction) 2. Coronary artery disease 3. ESRD (end stage renal disease) on dialysis 4. Mitral regurgitation 5. PAD (peripheral artery disease) Consultants: cardiology, nephrology Free Text DxA P Notes Free Text DxA P Notes: 68 YO female with MHx of IDDM on [...] niece who is the MPOA. 1. Multivessel CAD * Aspirin, statin * extremely elevated STS risk score about 50% * nuclear viability study reviewed- acar at apex otherwise viable * CTA head, neck, abdomen, pelvis to evaluate subclavian artery, carotid arteries, mesenteric arteries reviewed 2. Severe PAD with nonhealing foot ulcers * Vascular surgery recommendation noted 3. Mitral regurgitation * moderate to severe MR on TTE with contrast * JULIA reviewed 4. Ischemic cardiomyopathy/HFrEF * volume management per HD * on midodrine d/t chronic hypotension * no ACEI or ARB d/t chronic hypotension requiring midodrine 5. ESRD - on HD * nephrology following 6. IDDM * per primary team Patient will be presented in the conference on Tuesday to decide on high risk revascularization (likely PCI) vs medical therapy continue medical therapy MDM by Dr. Scott at 1340 at 9735 RPT #:[id number] END OF REPORT [facility] 2023-07-16 09:49:00 [facility] Cardiothoracic Surgery Prog REPORT#:[id number] REPORT STATUS: Signed DATE:07/16/23 TIME: 948 PATIENT: JOSEPH ROWLEY UNIT #: [id number] [place] [facility] [place] [place] AGE: 68 SEX: F ATTEND: Tanvir Prasad MD ADM AUTHOR: Trudy Colindres Physic * ALL edits or amendments must be made on the electronic/computer document * Subjective Chief complaint: CAD, eval for CABG PVD nonhealing lower extremity ulcers Patient resting comfortable. Review of Systems Constitutional: Denies: fever, generalized weakness. Skin: Denies: rash, swelling. Allergy/Immun: Denies: itching, rhinorrhea. Eyes: Denies: itching, diplopia. Respiratory: Denies: VICENTE (dyspnea on exertion), hemoptysis. Cardiovascular: Denies: VICENTE (dyspnea on exertion), edema. GI: Denies: constipation, diarrhea. : Denies: dysuria, hematuria. Musculoskeletal: Denies: joint pain, joint swelling. Heme: Denies: bleeding, bruising. Endocrine: Denies: polydipsia, polyuria. Neuro: Denies: confusion, dizziness. All systems rev neg: except as marked Objective General VS/I O Last Documented: Result Date Time Pulse Ox 99 07/16 0709 B/P 104/55 07/16 0709 B/P Mean 0.0 07/16 0709 O2 Delivery Room air 07/16 0709 Temp 97.9 07/16 0709 Pulse 76 07/16 0709 Resp 14 07/16 0709 O2 Flow Rate 5 07/15 1635 24 hour I O ending at 0700: 07/16 0700 07/15 1900 Intake Total Output Total Balance Number 3 Bowel Movements Number Voids 1 Patient 59.6 kg 57.606 kg Weight PATIENT WEIGHT: Weight (lb): 131 Weight (oz): 6.33 Weight (kg): 59.600 Physical Exam General appearance: alert, awake, oriented HEENT: anicteric, mucosal membranes moist Cardiovascular: BP/pulses equal bilat., regular rate rhythm Respiratory: aerating well, clear to auscultation Abdomen: soft, non-tender Extremities: dry, moves all Musculoskeletal: full range of motion, painless range of motion Neuro/DEMURRAGE AGENT: alert, oriented X 3 Skin: dry, intact Ulcer: Type/cause: diabetic (right heel ulcer), arterial Diagnosis, Assessment Plan Hospital course to date: This is a very pleasant 68-year-old female with a past medical history of type 1 diabetes from the age of 46 years old, end-stage renal disease, on dialysis since July 2022, hypertension who presented to her research epidemiologist for evaluation of bilateral nonhealing ulcerations of her bilateral heels for the past 3 months, and shortness of breath with exertion. Her last echocardiogram was completed with her research epidemiologist showing an EF 20-25% with mild LVH, severe global hypokinesis, mildly dilated left atrium with moderate aortic sclerosis without stenosis, mitral valve leaflets mildly thickened with severe MR, mild to moderate TR, moderate pulmonary hypertension with an RV systolic pressure 62 mmHg. Patient underwent left heart catheterization today and was found to have severe three-vessel coronary artery disease, with severe bilateral occluded SFAs of the lower extremity. CV surgery consulted for evaluation for coronary artery bypass graft surgery Assessment/plan 1. Severe three-vessel CAD 2. Type I diabetic 3. Severe peripheral vascular disease 4. Nonhealing bilateral heel ulcerations 5. Hypertension 6. Hyperlipidemia 7. CHF Documented EF 20-25% in the outpatient setting 04/05 8. Mitral valve regurgitation Noted to be severe [...] atrial pressure. Average global longitudinal strain is -5.7. 2. Right ventricle: Systolic function is mildly to moderately reduced. Systolic pressure is severely increased. 3. Left atrium: The atrium is dilated. The end-systolic volume index (A-L) is 50 ml/m 2. 4. Mitral valve: The annulus is calcified. Prolapse cannot be excluded. There is moderate to severe regurgitation, directed posteriorly and along the left atrial wall. The effective regurgitant orifice (PISA) is 0.39 cm 2. The regurgitant volume (PISA) is 46 ml. 5. Tricuspid valve: Estimated right ventricular systolic pressure is 76 mmHg. There is moderate-severe regurgitation directed toward the septum. 6. Pericardium, extracardiac: There is a large left pleural effusion. 7. Inferior vena cava: The vessel is dilated. The respirophasic diameter changes are blunted (< 50%). Inferior vena cava diameter measures 2.2 cm. 07/13/23 Patinet resting comfortable, Denies any new complaints. On room air. Sinus rhythm. AAO x 3 Cardiac workup still underway. CTA head, abdomena nd pelvis ordered by cardiology. Patient will be presented in the high risk cardiology conference. Further recs to follow. 07/14/23 Patient resting comfortable, Denies chest pains Complains of bilateral heel ulcerations Sinus rhythm On room air Carotid Doppler showed no carotid artery stenosis Patient is considered high risk due to multiple comorbidities, ESRD, CHF, DM Patient will be discussed in the high risk conference Further recommendations to Patient was seen with Dr. Sousa 07/15/23 Patient resting comfortable Denies complaints, denies chest pains Remains on room air Sinus rhythm Patient underwent viability study today. Pending results On dialysis, followed by renal Patient STS score estimated at 50% Further recommendations to follow 07/16/23 Patient resting comfortable, denies chest pain No new complaints Remains on room air Sinus rhythm Pending viability study results. Dialysis per renal. Patient will be discussed in the high risk conference next week. Consultants: cardiology, nephrology at 0951 at 1604 RPT #:[id number] END OF REPORT [facility] 2023-07-16 07:37:00 [id number] [place] [address] PATIENT NAME: JOSEPH ROWLEY ADMIT DATE: 07/12/23 ACCOUNT NO: [id number] [place] [facility] [place]: 68 REPORT TYPE: eNUCLEAR CARDIOLOGY REPORT SEX: F ADMITTING PHYSICIAN:Tanvir Prasad MD ATTENDING PHYSICIAN:Tanvir Prasad MD *[facility] [address] [place] [address], [place] [address] Myocardial Viability Imaging Viability Nitroglycerin Imaging Patient: Joseph Rowley Study Date: 07/15/2023 Height: / URN: Weight: / : 1955 Location: [facility] BMI/BSA: Age: 68 Gender: F Account#: *Interpreting Physician: Kimberly Shin MD Indications: CHF. Conclusions Summary: Absent uptake at the apix consistent with scar otherwise viable myocardium. Study data: Nuclear components: Viability Nitroglycerin Imaging. Consent: The risks, benefits, and alternatives to the procedure were explained to the patient and informed consent was obtained. Procedure data: Initial setup. The patient was brought to the laboratory. A baseline ECG was recorded. Intravenous access was obtained. ECG and blood pressure measurements were monitored. Nitroglygerin 0.8 mg IV given for Viability study Isotope administration: PATIENT NAME: JOSEPH ROWLEY + + + *Stage *Rest * + + + *Agent *Tc-99m * + + + *Injected dose *30 mCi * + + + *Date *07/15/2023* + + + *Injection time*09:59 AM * + + + *Route *IV * + + + *Imaging time *10:02 AM * + + + Image properties: Gated imaging was performed. Myocardial perfusion imaging: The summed perfusion score measured 11 at rest. Rest: LV regional perfusion: Moderately reduced perfusion of the apical anterior, apical inferior, mid inferolateral, apical lateral, and apical myocardium; mildly reduced perfusion of the basal inferolateral myocardium. Perfusion score: 11. Vascular region quantitation: +----+ + +-- --------+ + * *LAD extent*LCx extent*RCA extent*Total extent* +----+ + +-- --------+ + *Rest*34 *50 *6 *31 * +----+ + +-- --------+ + Gated SPECT: The left ventricular end-diastolic volume is 129 ml. The left ventricular end-systolic volume is 93 ml. The cardiac output is 2.8 L/min. The calculated left ventricular ejection fraction is 28%. The calculated resting left ventricular ejection fraction is 28 %. Prepared and electronically signed by: Kimberly Pak MD 07/16/2023 07:37 at 0737 PATIENT NAME: JOSEPH ROWLEY [facility] 2023-07-16 07:35:00 [id number] [place] [address] PATIENT NAME: JOSEPH ROWLEY ADMIT DATE: 07/12/23 ACCOUNT NO: [id number] [place] [facility] [place] 68 REPORT TYPE: eTRANSESOPHAGEAL ECHO REPORT SEX: F ADMITTING PHYSICIAN:Tanvir Prasad MD ATTENDING PHYSICIAN:Tanvir Prasad MD *[place] [address] Transesophageal Echocardiogram Patient: Joseph Rowley Study Date: 07/15/2023 BP: 117 / 58 Location: [facility] URN: [id number] : 1955 Age: 68 Height: 56 in / 142.2 cm Gender: F Weight: 126.7 lb / 57.6 kg BMI/BSA: 28.5 kg/m 2 / 1.46 m 2 *Ordering Physician: * Kimberly Pak MD *Interpreting Physician: * Kimberly Pak MD *Results Technician: * Sulma Parada Indications: MR, TR. Study data: Consent: The risks, benefits, and alternatives to the procedure were explained to the patient and informed consent was obtained. Procedure: Initial setup: The patient was brought to the laboratory in the fasting state.Intravenous access was obtained. Surface ECG leads and pulse oximetric signals were monitored. Sedation. Moderate sedation was administered by cardiology staff. Transesophageal echocardiography was performed. Topical anesthesia was obtained using benzocaine spray. A transesophageal probe (SN: [id number]) was inserted by the attending research epidemiologist without difficulty. Patient status: Inpatient. Patient room number: CVPREP 11. Study status: Routine. Study completion: The patient tolerated the procedure well. There were no complications. Findings PATIENT NAME: JOSEPH ROWLEY Left ventricle: The cavity size is normal. Wall thickness is normal. Systolic function is severely reduced. The estimated ejection fraction is <20%. Severe diffuse hypokinesis. Right ventricle: The cavity size is normal. Systolic function is mildly to moderately reduced. Systolic pressure is severely increased. Estimated TAPSE is 1.1 cm. Left atrium: The atrium is dilated. Right atrium: The atrium is severely dilated. Aorta: Aortic root: The aortic root is normal in size. Aortic valve: The valve is structurally normal. The valve is trileaflet. There is no evidence of stenosis. There is no regurgitation. Mitral valve: The annulus is calcified. There is no evidence of stenosis. There is moderate to severe regurgitation, directed posteriorly and along the left atrial wall. Likely underestimated as blood pressure was low 70s systolic and very low ejection fraction. Tricuspid valve: The valve is structurally normal. Estimated right ventricular systolic pressure is 76 mmHg. There is wide-open regurgitation directed toward the septum. Pulmonic valve: The valve is structurally normal. There is no regurgitation. Pericardium: There is no pericardial effusion. Measurements Mitral valve Value 07/13/2023 MR peak v 3.19 m/sec 4.54 ERO, PISA 0.24 cm 2 0.39 MR vol, PISA 23 ml 46 Conclusions Summary: 1. Left ventricle: The cavity size is normal. Wall thickness is normal. Systolic function is severely reduced. The estimated ejection fraction is <20%. Severe diffuse hypokinesis. 2. Right ventricle: Systolic function is mildly to moderately reduced. Systolic pressure is severely increased. 3. Left atrium: The atrium is dilated. 4. Right atrium: The atrium is severely dilated. 5. Mitral valve: The annulus is calcified. There is moderate to severe regurgitation, directed posteriorly and along the left atrial wall. Likely underestimated as blood pressure was low 70s systolic and very low ejection fraction. 6. Tricuspid valve: There is wide-open regurgitation directed toward the septum. Prepared and electronically signed by PATIENT NAME: JOSEPH ROWLEY Kimberly Pak MD 07/16/2023 07:34 at 0735 PATIENT NAME: JOSEPH ROWLEY [facility] 2023-07-15 14:56:00 [facility] Nephrology Progress Note REPORT#:[id number] REPORT STATUS: Signed DATE:07/15/23 TIME: 1456 PATIENT: JOSEPH ROWLEY UNIT #: [id number] ROOM/BED: [place] [address] : [birth year] AGE: 68 SEX: F ATTEND: Tanvir Prasad MD ADM AUTHOR: Winnie Noyola MD * ALL edits or amendments must be made on the electronic/computer document * Subjective Comments: JULIA today Objective General VS/I O: Vital Signs: Date Time Temp Pulse Resp [...] 07/15 0300 81 24 122/58 83 98 / 0200 79 21 137/63 90 97 07/15 0100 76 22 122/59 85 98 09/ 0000 73 22 121/60 86 97 07/14 [...] Oral 600 Number 0 Bowel Movements Output, 1999 Hemodialysis Output, Urine 350 Patient 57.8 kg Weight PATIENT WEIGHT: Weight (lb): 127 Weight (oz): 6.83 Weight (kg): 57.606 Medications Active Meds + DC'd Last 24 Hrs Iopamidol (ISOVUE-300 100ML) 100 ML .STK-MED ONE IV (DC) Iopamidol (ISOVUE-370 100ML) 100 ML .STK-MED ONE IV (DC) Benzocaine/Butamben/Tetracaine HCl (CETACAINE) 1 APPLIC ASDIR PRN MM ( CKD) Fentanyl Citrate (SUBLIMAZE) 100 MCG ASDIR PRN IV Flumazenil (ROMAZICON) 0.2 MG ASDIR PRN IV Midazolam HCl (VERSED) 2 MG ASDIR PRN IV Naloxone HCl (NARCAN) 0.4 MG ASDIR PRN IV Nitroglycerin (NITROSTAT) 0 .STK-MED ONE SL (DC) Epoetin Tanner-epbx (RETACRIT) 4,000 UNIT TuThSa@2100 IV Ceftriaxone Sodium (ROCEPHIN 1000MG VIAL) 1,000 MG Q24H IV Sodium Chloride (SODIUM CHLORIDE) 10 ML Aspirin (ASPIRIN) 81 MG DAILY PO Midodrine [...] 0.9%) 250 ML ASDIR PRN IV Physical Exam General appearance: alert, awake Head/eyes: atraumatic, normocephalic, PERRLA Neck: no JVD, no lymphadenopathy, no masses or swelling Cardiovascular: normal heart sounds, regular rate and rhythm, no murmur, no rub Respiratory: aerating well, clear to auscultation, normal breath sounds, no distress Abdomen: non-tender, normal bowel sounds, soft, no rebound Genitourinary: no bladder distention, no flank pain, no urinary catheter Extremities: no edema, no gangrene Neuro/DEMURRAGE AGENT: alert, oriented X 3, CN II-XII intact, normal speech Ulcer: Type/cause: diabetic (right heel ulcer), arterial Results Findings/Data: Laboratory Tests 07/15 352 Chemistry Sodium (134 - [...] (Auto) (14.0 - 32.0 %) 13.7 L [place] % (Auto) (4.8 - 9.0 %) 13.4 H Eos % (Auto) (0.3 - 3.7 %) 0.5 Baso % (Auto) (0.0 - 2.0 %) 0.2 Neut # (Auto) (2.0 - 7.6 x10 3/uL) 7.79 H Lymph # (Auto) (1.0 - 3.8 x10 3/uL) 1.48 [place] # (Auto) (0.1 - 0.8 x10 3/uL) [...] - 0.1 x10 3/uL) 0.00 Diagnosis, Assessment Plan Free Text A P: 1. ESRD continue with TTS dialysis this week [...] Discussed with at bedside at 1823 RPT #:[id number] END OF REPORT [facility] 2023-07-15 14:51:00 [facility] ([facility]) Nephrology Progress Note REPORT#:[id number] REPORT STATUS: Signed DATE:07/15/23 TIME: 1451 PATIENT: JOSEPH ROWLEY UNIT #: [id number] ROOM/BED: [facility] : 57 AGE: 68 SEX: F ATTEND: Tanvir Prasad MD ADM AUTHOR: Winnie Noyola MD * ALL edits or amendments must be made on the electronic/computer document * See Addendum Objective General VS/I O: Vital Signs: Date Time Temp Pulse Resp [...] 57.8 kg Weight PATIENT WEIGHT: Weight (lb): 127 Weight (oz): 6.83 Weight (kg): 57.606 Medications Active Meds + DC'd Last 24 Hrs Iopamidol (ISOVUE-300 100ML) 100 ML .STK-MED ONE IV (DC) Iopamidol (ISOVUE-370 100ML) 100 ML .STK-MED ONE IV (DC) Benzocaine/Butamben/Tetracaine HCl (CETACAINE) 1 APPLIC ASDIR PRN MM ( CKD) Fentanyl Citrate (SUBLIMAZE) 100 MCG ASDIR PRN IV Flumazenil (ROMAZICON) 0.2 MG ASDIR PRN IV Midazolam HCl (VERSED) 2 MG ASDIR PRN IV Naloxone HCl (NARCAN) 0.4 MG ASDIR PRN IV Nitroglycerin (NITROSTAT) 0 .STK-MED ONE SL (DC) Epoetin Tanner-epbx (RETACRIT) 4,000 UNIT TuThSa@2100 IV Ceftriaxone Sodium (ROCEPHIN 1000MG VIAL) 1,000 MG Q24H IV Sodium Chloride (SODIUM CHLORIDE) 10 ML Aspirin (ASPIRIN) 81 MG DAILY PO Midodrine [...] 0.9%) 250 ML ASDIR PRN IV Physical Exam Head/eyes: atraumatic, normocephalic, PERRLA Neck: no JVD, no lymphadenopathy, no masses or swelling Cardiovascular: normal heart sounds, regular rate and rhythm, no murmur, no rub Respiratory: aerating well, clear to auscultation, normal breath sounds, no distress Abdomen: non-tender, normal bowel sounds, soft, no rebound Genitourinary: no bladder distention, no flank pain, no urinary catheter Extremities: pitting edema, no gangrene Neuro/DEMURRAGE AGENT: alert, oriented X 3, CN II-XII intact, normal speech Ulcer: Type/cause: diabetic (right heel ulcer), arterial Results Findings/Data: Laboratory Tests 07/15 352 Chemistry Sodium (134 - [...] (Auto) (14.0 - 32.0 %) 13.7 L [place] % (Auto) (4.8 - 9.0 %) 13.4 H Eos % (Auto) (0.3 - 3.7 %) 0.5 Baso % (Auto) (0.0 - 2.0 %) 0.2 Neut # (Auto) (2.0 - 7.6 x10 3/uL) 7.79 H Lymph # (Auto) (1.0 - 3.8 x10 3/uL) 1.48 [place] # (Auto) (0.1 - 0.8 x10 3/uL) [...] - 0.1 x10 3/uL) 0.00 Diagnosis, Assessment Plan Free Text A P: 1. ESRD continue with TTS dialysis this week and then switch her back to Tuesday next week. HD today 2. Hypotension restart midodrine tonight 3. Coronary disease needs CABG, CT surgery consulted 4. Diabetes type 1 per primary team 5. Anemia of CKD check lab and on ESAas hemoglobin less than 10 6. Hyponatremia UF with HD as tolerated Discussed with at bedside at 1455 Addendum 1: 07/15/23 1455 by Winnie Noyola MD at 1455 Addendum 2: 07/15/23 1455 by Winnie Noyola MD pls disregard this note at 1455 RPT #:[id number] END OF REPORT [facility] 2023-07-15 12:01:00 [facility] ([facility]) Cardiothoracic Surgery Prog REPORT#:[id number] REPORT STATUS: Signed DATE:07/15/23 TIME: 1201 PATIENT: JOSEPH ROWLEY UNIT #: [id number] ROOM[address]: [address] : [birth year] AGE: 68 SEX: F ATTEND: Tanvir Prasad MD ADM AUTHOR: Trudy Colindres Physic * ALL edits or amendments must be made on the electronic/computer document * Subjective Chief complaint: CAD, PVD nonhealing lower extremity ulcers Patient resting comfortable. Review of Systems Constitutional: Denies: fever, generalized weakness. Skin: Denies: rash, swelling. Allergy/Immun: Denies: itching, rhinorrhea. Eyes: Denies: itching, diplopia. Respiratory: Denies: VICENTE (dyspnea on exertion), hemoptysis. Cardiovascular: Denies: VICENTE (dyspnea on exertion), edema. GI: Denies: constipation, diarrhea. : Denies: dysuria, hematuria. Musculoskeletal: Denies: joint pain, joint swelling. Heme: Denies: bleeding, bruising. Endocrine: Denies: polydipsia, polyuria. Neuro: Denies: confusion, dizziness. All systems rev neg: except as marked Objective General VS/I O Last Documented: Result Date Time Pulse Ox 95 [...] 57.8 kg Weight PATIENT WEIGHT: Weight (lb): 127 Weight (oz): 6.83 Weight (kg): 57.800 Physical Exam General appearance: alert, awake, oriented HEENT: anicteric, mucosal membranes moist Cardiovascular: BP/pulses equal bilat., regular rate rhythm Respiratory: aerating well, clear to auscultation Abdomen: soft, non-tender Extremities: dry, moves all Musculoskeletal: full range of motion, painless range of motion Neuro/DEMURRAGE AGENT: alert, oriented X 3 Skin: dry, intact Ulcer: Type/cause: diabetic (right heel ulcer), arterial Diagnosis, Assessment Plan Hospital course to date: This is a very pleasant 68-year-old female with a past medical history of type 1 diabetes from the age of 46 years old, end-stage renal disease, on dialysis since July 2022, hypertension who presented to her research epidemiologist for evaluation of bilateral nonhealing ulcerations of her bilateral heels for the past 3 months, and shortness of breath with exertion. Her last echocardiogram was completed with her research epidemiologist showing an EF 20-25% with mild LVH, severe global hypokinesis, mildly dilated left atrium with moderate aortic sclerosis without stenosis, mitral valve leaflets mildly thickened with severe MR, mild to moderate TR, moderate pulmonary hypertension with an RV systolic pressure 62 mmHg. Patient underwent left heart catheterization today and was found to have severe three-vessel coronary artery disease, with severe bilateral occluded SFAs of the lower extremity. CV surgery consulted for evaluation for coronary artery bypass graft surgery Assessment/plan 1. Severe three-vessel CAD 2. Type I diabetic 3. Severe peripheral vascular disease 4. Nonhealing bilateral heel ulcerations 5. Hypertension 6. Hyperlipidemia 7. CHF Documented EF 20-25% in the outpatient setting 04/05 8. Mitral valve regurgitation Noted to be severe [...] atrial pressure. Average global longitudinal strain is -5.7. 2. Right ventricle: Systolic function is mildly to moderately reduced. Systolic pressure is severely increased. 3. Left atrium: The atrium is dilated. The end-systolic volume index (A-L) is 50 ml/m 2. 4. Mitral valve: The annulus is calcified. Prolapse cannot be excluded. There is moderate to severe regurgitation, directed posteriorly and along the left atrial wall. The effective regurgitant orifice (PISA) is 0.39 cm 2. The regurgitant volume (PISA) is 46 ml. 5. Tricuspid valve: Estimated right ventricular systolic pressure is 76 mmHg. There is moderate-severe regurgitation directed toward the septum. 6. Pericardium, extracardiac: There is a large left pleural effusion. 7. Inferior vena cava: The vessel is dilated. The respirophasic diameter changes are blunted (< 50%). Inferior vena cava diameter measures 2.2 cm. 07/13/23 Pat[place] resting comfortable, Denies any new complaints. On room air. Sinus rhythm. AAO x 3 Cardiac workup still underway. CTA head, abdomena nd pelvis ordered by cardiology. Patient will be presented in the high risk cardiology conference. Further recs to follow. 07/14/23 Patient resting comfortable, Denies chest pains Complains of bilateral heel ulcerations Sinus rhythm On room air Carotid Doppler showed no carotid artery stenosis Patient is considered high risk due to multiple comorbidities, ESRD, CHF, DM Patient will be discussed in the high risk conference Further recommendations to Patient was seen with Dr. Sousa 07/15/23 Patient resting comfortable Denies complaints, denies chest pains Remains on room air Sinus rhythm Patient underwent viability study today. Pending results On dialysis, followed by renal Patient STS score estimated at 50% Further recommendations to follow at 1204 at 1603 RPT #:[id number] END OF REPORT [facility] 2023-07-15 11:49:00 [facility] Hospitalist Progress Note REPORT#:[id number] REPORT STATUS: Signed DATE:07/15/23 TIME: 1149 PATIENT: JOSEPH ROWLEY UNIT #: [id number] ROOM/BED: [place] [address] : 57 AGE: 68 SEX: F ATTEND: Tanvir Prasad MD ADM AUTHOR: Violetta Davis MD * ALL edits or amendments must be made on the electronic/computer document * Subjective Chief complaint: she is seen in the stress lab .no cp no sob HPI: Patient had a fever spike yesterday was started on empiric antibiotics with UA abnormal system of UTI she is less confused and more alert per patient/family at bedside Review of Systems Constitutional: Reports: fever, generalized weakness. All systems rev neg: except as noted Free Text ROS Notes Free Text ROS Notes: All 14 systems reviewed positive findings indicated above rest of the review systems negative Objective General VS/I O: Vital Signs: Date Time Temp Pulse Resp B/P B/P Pulse O2 O2 Flow FiO2 Mean Ox Delivery Rate 07/15 713 91 26 109/59 79 95 07/15 713 36.9 91 14 109/59 0.0 95 Room air 09/01 0458 36.8 79 13 114/57 0.0 97 [...] 57.8 kg Weight PATIENT WEIGHT: Weight (lb): 127 Weight (oz): 6.83 Weight (kg): 57.800 Medications: Active Meds + DC'd Last 24 Hrs Benzocaine/Butamben/Tetracaine HCl (CETACAINE) 1 APPLIC ASDIR PRN MM ( CKD) Fentanyl Citrate (SUBLIMAZE) 100 MCG ASDIR PRN IV Flumazenil (ROMAZICON) 0.2 MG ASDIR PRN IV Midazolam HCl (VERSED) 2 MG ASDIR PRN IV Naloxone HCl (NARCAN) 0.4 MG ASDIR PRN IV Nitroglycerin (NITROSTAT) 0 .STK-MED ONE SL (DC) Epoetin Tanner-epbx (RETACRIT) 4,000 UNIT TuThSa@2100 IV Ceftriaxone Sodium (ROCEPHIN 1000MG VIAL) 1,000 MG Q24H IV Sodium Chloride (SODIUM CHLORIDE) 10 ML Aspirin (ASPIRIN) 81 MG DAILY PO Midodrine [...] 0.9%) 250 ML ASDIR PRN IV Physical Exam General appearance: alert, awake, oriented Head/Eyes: atraumatic, normal conjunctiva/sclera, normal eyelids/periorb. Neck: full range of motion Cardiovascular: normal capillary refill, normal heart sounds, regular rate rhythm Respiratory: aerating well, clear to auscultation, symmetric expansion, no distress Abdomen: non-tender, normal bowel sounds, soft, no distention Neuro/DEMURRAGE AGENT: alert, oriented X 3 Ulcer: Type/cause: diabetic (right heel ulcer), arterial Results Findings/Data: Laboratory Tests 07/15 352 Chemistry Sodium (134 - [...] (Auto) (14.0 - 32.0 %) 13.7 L [place] % (Auto) (4.8 - 9.0 %) 13.4 H Eos % (Auto) (0.3 - 3.7 %) 0.5 Baso % (Auto) (0.0 - 2.0 %) 0.2 Neut # (Auto) (2.0 - 7.6 x10 3/uL) 7.79 H Lymph # (Auto) (1.0 - 3.8 x10 3/uL) 1.48 [place] # (Auto) (0.1 - 0.8 x10 3/uL) [...] - 0.1 x10 3/uL) 0.00 Diagnosis, Assessment Plan Consultants: cardiology, nephrology Free Text DxA P Notes Free text DxA P notes: 68-year-old female with a past medical history of type 1 diabetes from the age of 46 years old, end-stage renal disease, on dialysis since July 2022, hypertension who presented to her research epidemiologist for evaluation of bilateral nonhealing ulcerations of her bilateral heels for the past 3 months, and shortness of breath with exertion. Left heart catheterization showed significant for severe three-vessel coronary artery disease with severe bilateral occluded SFAs of the lower extremity. Issues as below. Suspected urinary tract infection Severe three-vessel CAD Severe peripheral vascular disease Diabetes mellitus End-stage renal failure on hemodialysis Nonhealing bilateral heel ulcerations Hypertension Hyperlipidemia CHF Mitral valve regurgitation Plan plan and recommendations Patient admitted into medicine Vital signs every 4 Patient Antiplatelets and statin per cardiology Seen by vascular surgery" CT surgery. Nephrology for hemodialysis. Will do basic lab work include CBC BMP now. Patient is not having significant hypoxia at this time DVT prophylaxis Restart home medications Discussed management plan in detail with patient's family. 07/13/[address] surgery and vascular surgery plans Hemodialysis was done yesterday Hemodialysis per nephrology Monitor renal function Blood sugar control with insulin pump. 07/14/2023 Fever spike last night blood cultures on empiric antibiotics for possible UTI Antibiotics changed Follow-up on cultures Follow-up on cardiothoracic surgery and oncology recommendations plan to have discussion tomorrow Blood sugars controlled Lab work otherwise stable DVT prophylaxis Hemodialysis per nephrology 07/15- take over care from another group -- review all lab and image -- she is seen in the stress test lab . no cp no sob -- urine culture --positive continue rocephin iv -- blood culture -- no grow -- stress test -- pending --continue HD as schedule at 1622 RPT #:[id number] END OF REPORT [facility] 2023-07-15 09:57:00 [facility] Cardiology Progress Note REPORT#:[id number] REPORT STATUS: Signed DATE:07/15/23 TIME: 956 PATIENT: JOSEPH ROWLEY UNIT #: [id number] ROOM/BED: [place] [address] : 57 AGE: 68 SEX: F ATTEND: Tanvir Prasad MD ADM AUTHOR: Yue Barragan AGACNP * ALL edits or amendments must be made on the electronic/computer document * Yue Barragan 07/15/23 0957: Subjective Patient reports: No: complaints. Objective General VS/I O: 24 hour I O ending at 0700: 07/15 0700 07/14 1900 Intake Total 630.00 Output Total 2350 Balance -1720.00 Intake, IV 30.00 Intake, Oral 600 Number 0 Bowel Movements Output, 1999 Hemodialysis Output, Urine 350 Patient 57.8 kg [...] 100 Room air PATIENT WEIGHT: Weight (lb): 127 Weight (oz): 6.83 Weight (kg): 57.800 Medications: Active Meds + DC'd Last 24 Hrs Benzocaine/Butamben/Tetracaine HCl (CETACAINE) 1 APPLIC ASDIR PRN MM ( CKD) Fentanyl Citrate (SUBLIMAZE) 100 MCG ASDIR PRN IV Flumazenil (ROMAZICON) 0.2 MG ASDIR PRN IV Midazolam HCl (VERSED) 2 MG ASDIR PRN IV Naloxone HCl (NARCAN) 0.4 MG ASDIR PRN IV Nitroglycerin (NITROSTAT) 0 .STK-MED ONE SL (DC) Epoetin Tanner-epbx (RETACRIT) 4,000 UNIT TuThSa@2100 IV Ceftriaxone Sodium (ROCEPHIN 1000MG VIAL) 1,000 MG Q24H IV Sodium Chloride (SODIUM CHLORIDE) 10 ML Aspirin (ASPIRIN) 81 MG DAILY PO Midodrine [...] 0.9%) 250 ML ASDIR PRN IV Physical Exam General appearance: alert, awake, oriented, no acute distress, pleasant Neck: non-tender, no JVD Cardiovascular: CV assessment: regular rate and rhythm Murmur assessment: heart murmur Respiratory: clear to auscultation, no distress Abdomen: soft, non-tender, normal bowel sounds, no distention Genitourinary: no flank pain, no urinary catheter Lower extremity: LE assessment: abnormal pedal pulse, abnormal peripheral pulse Musculoskeletal: normal inspection Neuro/DEMURRAGE AGENT: alert, oriented X 3, normal speech Skin: right heel ulcer Ulcer: Type/cause: diabetic (right heel ulcer), arterial Psychiatry: normal affect, normal mood Results Findings/Data: Laboratory Tests 07/15 352 Chemistry Sodium (134 - [...] (Auto) (14.0 - 32.0 %) 13.7 L [place] % (Auto) (4.8 - 9.0 %) 13.4 H Eos % (Auto) (0.3 - 3.7 %) 0.5 Baso % (Auto) (0.0 - 2.0 %) 0.2 Neut # (Auto) (2.0 - 7.6 x10 3/uL) 7.79 H Lymph # (Auto) (1.0 - 3.8 x10 3/uL) 1.48 [place] # (Auto) (0.1 - 0.8 x10 3/uL) [...] labs reviewed, vital signs reviewed, rhythm personally rev'd Telemetry Interpretation: sinus rhythm Echo results: Summary: 1. Left ventricle: The cavity size is normal. Wall thickness is normal. Systolic function is severely reduced. The estimated ejection fraction is 30-34%. Severe diffuse hypokinesis. Doppler parameters are consistent with restrictive physiology, indicative of decreased left ventricular diastolic compliance and/or increased left atrial pressure. Average global longitudinal strain is -5.7. 2. Right ventricle: Systolic function is mildly to moderately reduced. Systolic pressure is severely increased. 3. Left atrium: The atrium is dilated. The end-systolic volume index (A-L) is 50 ml/m 2. 4. Mitral valve: The annulus is calcified. Prolapse cannot be excluded. There is moderate to severe regurgitation, directed posteriorly and along the left atrial wall. The effective regurgitant orifice (PISA) is 0.39 cm 2. The regurgitant volume (PISA) is 46 ml. 5. Tricuspid valve: Estimated right ventricular systolic pressure is 76 mmHg. There is moderate-severe regurgitation directed toward the septum. 6. Pericardium, extracardiac: There is a large left pleural effusion. 7. Inferior vena cava: The vessel is dilated. The respirophasic diameter changes are blunted (< 50%). Inferior vena cava diameter measures 2.2 cm. Diagnosis, Assessment Plan Plan discussed with: patient, collaborating , nurse Free Text DxA P Notes Free Text DxA P Notes: 68 YO female with MHx of IDDM on [...] niece who is the MPOA. 1. Multivessel CAD * CTS workup onging for possible CABG plus MVR * Aspirin, statin * extremely elevated STS risk score about 50% * nuclear viability study today * CTA head, neck, abdomen, pelvis to evaluate subclavian artery, carotid arteries, mesenteric arteries pending 2. Severe PAD with nonhealing foot ulcers * Vascular surgery recommendation noted 3. Mitral regurgitation * moderate to severe MR on TTE with contrast * JULIA today * keep NPO 4. Ischemic cardiomyopathy/HFrEF * volume management per HD * on midodrine d/t chronic hypotension * no ACEI or ARB d/t chronic hypotension requiring midodrine 5. ESRD - on HD * nephrology following 6. IDDM * per primary team Workup ongoing for CABG with MVR which is unlikely vs high risk PCI. MDM by Dr. Pak. Kimberly Pak 07/15/23 1704: Attestations Physician Attestation Agree w/findings plan: I have seen and examined the pt, I [...] severe carotid disease severely reduced ejection fraction. Patient not a good candidate surgically and high risk for PCI. We will discuss the case on Tuesday morning and decide for high risk revascularization likely PCI versus medical therapy. Medical therapy is not ideal as the patient has 3 admissions over the last 9 months with very poor functional status at home. at 1148 at 1706 RPT #:[id number] END OF REPORT [facility] 2023-07-14 14:01:00 [facility] Cardiothoracic Surgery Prog REPORT#:[id number] REPORT STATUS: Signed DATE:07/14/23 TIME: 1401 PATIENT: JOSEPH ROWLEY UNIT #: [id number] ROOM/BED: [place] [id number] : 57 AGE: 68 SEX: F ATTEND: Tanvir Prasad MD ADM AUTHOR: Trudy Colindres Physic * ALL edits or amendments must be made on the electronic/computer document * Subjective Chief complaint: CAD, PVD nonhealing lower extremity ulcers Patient resting comfortable. Review of Systems Constitutional: Denies: fever, generalized weakness. Skin: Denies: rash, swelling. Allergy/Immun: Denies: itching, rhinorrhea. Eyes: Denies: itching, diplopia. Respiratory: Denies: VICENTE (dyspnea on exertion), hemoptysis. Cardiovascular: Denies: VICENTE (dyspnea on exertion), edema. GI: Denies: constipation, diarrhea. : Denies: dysuria, hematuria. Musculoskeletal: Denies: joint pain, joint swelling. Heme: Denies: bleeding, bruising. Endocrine: Denies: polydipsia, polyuria. Neuro: Denies: confusion, dizziness. All systems rev neg: except as marked Objective General VS/I O Last Documented: Result Date Time Pulse Ox 100 07/14 124 B/P 117/53 07/14 124 B/P Mean 0.0 07/14 124 O2 Delivery Room air 07/14 1247 Temp 98.2 07/14 124 Pulse 92 07/14 1247 Resp 19 07/14 124 24 hour I O ending at 0700: 07/14 0700 07/13 1900 Intake Total 740.00 Output Total 200 280 Balance -200 460.00 Intake, IV 140.00 Intake, Oral 600 Number 0 Bowel Movements Number Voids 3 Output, Urine 200 280 Patient 58.1 kg Weight Weight Standing scale Measurement Method PATIENT WEIGHT: Weight (lb): 128 Weight (oz): 1.42 Weight (kg): 58.100 Physical Exam General appearance: alert, awake, oriented HEENT: anicteric, mucosal membranes moist Cardiovascular: BP/pulses equal bilat., regular rate rhythm Respiratory: aerating well, clear to auscultation Abdomen: soft, non-tender Extremities: dry, moves all Musculoskeletal: full range of motion, painless range of motion Neuro/DEMURRAGE AGENT: alert, oriented X 3 Skin: dry, intact Ulcer: Type/cause: diabetic (right heel ulcer), arterial Diagnosis, Assessment Plan Hospital course to date: This is a very pleasant 68-year-old female with a past medical history of type 1 diabetes from the age of 46 years old, end-stage renal disease, on dialysis since July 2022, hypertension who presented to her research epidemiologist for evaluation of bilateral nonhealing ulcerations of her bilateral heels for the past 3 months, and shortness of breath with exertion. Her last echocardiogram was completed with her research epidemiologist showing an EF 20-25% with mild LVH, severe global hypokinesis, mildly dilated left atrium with moderate aortic sclerosis without stenosis, mitral valve leaflets mildly thickened with severe MR, mild to moderate TR, moderate pulmonary hypertension with an RV systolic pressure 62 mmHg. Patient underwent left heart catheterization today and was found to have severe three-vessel coronary artery disease, with severe bilateral occluded SFAs of the lower extremity. CV surgery consulted for evaluation for coronary artery bypass graft surgery Assessment/plan 1. Severe three-vessel CAD 2. Type I diabetic 3. Severe peripheral vascular disease 4. Nonhealing bilateral heel ulcerations 5. Hypertension 6. Hyperlipidemia 7. CHF Documented EF 20-25% in the outpatient setting 04/05 8. Mitral valve regurgitation Noted to be severe [...] atrial pressure. Average global longitudinal strain is -5.7. 2. Right ventricle: Systolic function is mildly to moderately reduced. Systolic pressure is severely increased. 3. Left atrium: The atrium is dilated. The end-systolic volume index (A-L) is 50 ml/m 2. 4. Mitral valve: The annulus is calcified. Prolapse cannot be excluded. There is moderate to severe regurgitation, directed posteriorly and along the left atrial wall. The effective regurgitant orifice (PISA) is 0.39 cm 2. The regurgitant volume (PISA) is 46 ml. 5. Tricuspid valve: Estimated right ventricular systolic pressure is 76 mmHg. There is moderate-severe regurgitation directed toward the septum. 6. Pericardium, extracardiac: There is a large left pleural effusion. 7. Inferior vena cava: The vessel is dilated. The respirophasic diameter changes are blunted (< 50%). Inferior vena cava diameter measures 2.2 cm. 07/13/23 Patinet resting comfortable, Denies any new complaints. On room air. Sinus rhythm. AAO x 3 Cardiac workup still underway. CTA head, abdomena nd pelvis ordered by cardiology. Patient will be presented in the high risk cardiology conference. Further recs to follow. 07/14/23 Patient resting comfortable, Denies chest pains Complains of bilateral heel ulcerations Sinus rhythm On room air Carotid Doppler showed no carotid artery stenosis Patient is considered high risk due to multiple comorbidities, ESRD, CHF, DM Patient will be discussed in the high risk conference Further recommendations to Patient was seen with Dr. Sousa at 1403 at 1603 RPT #:[id number] END OF REPORT [facility] 2023-07-14 10:11:00 [facility] ([facility]) Hospitalist Progress Note REPORT#:[id number] REPORT STATUS: Signed DATE:07/14/23 TIME: 1011 PATIENT: JOSEPH ROWLEY UNIT #: [id number] ROOM/BED: [place] [address] : 57 AGE: 68 SEX: F ATTEND: Cinthya Leiva MD ADM AUTHOR: Cinthya Leiva MD * ALL edits or amendments must be made on the electronic/computer document * Subjective Chief complaint: CAD HPI: Patient had a fever spike yesterday was started on empiric antibiotics with UA abnormal system of UTI she is less confused and more alert per patient/family at bedside Review of Systems All systems rev neg: except as noted Free Text ROS Notes Free Text ROS Notes: All 14 systems reviewed positive findings indicated above rest of the review systems negative Objective General VS/I O: Vital Signs: Date Time Temp Pulse Resp [...] scale Measurement Method PATIENT WEIGHT: Weight (lb): 128 Weight (oz): 1.42 Weight (kg): 58.100 Medications: Active Meds + DC'd Last 24 Hrs Epoetin Tanner-epbx (RETACRIT) 4,000 UNIT TuThSa@2100 IV Ceftriaxone Sodium (ROCEPHIN 1000MG VIAL) 1,000 MG Q24H IV Sodium Chloride (SODIUM CHLORIDE) 10 ML Perflutren Lipid Microsphere (Definity) 0 .STK-MED ONE [...] 0.1MG/ML SYR) 0.5 MG ASDIR PRN IV (DC ) Sodium Chloride (SODIUM CHLORIDE 0.9%) 500 ML ASDIR PRN IV (DC) Physical Exam Neck: full range of motion Cardiovascular: normal capillary refill, normal heart sounds, regular rate rhythm Respiratory: aerating well, clear to auscultation, symmetric expansion, no distress Abdomen: non-tender, normal bowel sounds, soft, no distention Neuro/DEMURRAGE AGENT: alert, oriented X 3 Ulcer: Type/cause: diabetic (right heel ulcer), arterial Results Findings/Data: Laboratory Tests 07/14 0356 Chemistry Sodium (134 - 147 mEq/L) 130 [...] - 2.6 mg/dL) 2.09 Laboratory Tests 07/14 0356 Hematology WBC (4.5 - 11.0 x10 3/uL) [...] (Auto) (14.0 - 32.0 %) 11.4 L [place] % (Auto) (4.8 - 9.0 %) 9.2 H Eos % (Auto) (0.3 - 3.7 %) 0.1 L Baso % (Auto) (0.0 - 2.0 %) 0.2 Neut # (Auto) (2.0 - 7.6 x10 3/uL) 10.40 H Lymph # (Auto) (1.0 - 3.8 x10 3/uL) 1.51 [place] # (Auto) (0.1 - 0.8 x10 3/uL) [...] (0.0 - 0.1 x10 3/uL) 0.00 Radiology data: Recent Impressions: CAT SCAN - CT CHEST W/O CONTRAST 07/13 1446 Report Impression - Status: SIGNED Entered: 07/13/2023 2379 IMPRESSION: 1. Right upper lobe inflammatory changes. 2. Nonspecific 3 mm right upper lobe pulmonary nodule for patients at low risk (minimal or absent history of smoking and of other known risk factors), no routine follow-up is indicated. For patients at high risk (history of smoking or of other known risk factors), consider optional CT Chest at 12 months. (Reference: Tony) 3. Atherosclerotic disease. 4. Bilateral small pleural effusions. REFERENCES: Tony Angel, et al. Guidelines for Management of Incidental Pulmonary Nodules Detected on CT Images: From the Fleischner Society 2017. Radiology. 2017;284(1):228-243. Impression By: [id number] - Francesca Meyer M.D. Diagnosis, Assessment Plan Free Text DxA P Notes Free text DxA P notes: 68-year-old female with a past medical history of type 1 diabetes from the age of 46 years old, end-stage renal disease, on dialysis since July 2022, hypertension who presented to her research epidemiologist for evaluation of bilateral nonhealing ulcerations of her bilateral heels for the past 3 months, and shortness of breath with exertion. Left heart catheterization showed significant for severe three-vessel coronary artery disease with severe bilateral occluded SFAs of the lower extremity. Issues as below. Suspected urinary tract infection Severe three-vessel CAD Severe peripheral vascular disease Diabetes mellitus End-stage renal failure on hemodialysis Nonhealing bilateral heel ulcerations Hypertension Hyperlipidemia CHF Mitral valve regurgitation Plan plan and recommendations Patient admitted into medicine Vital signs every 4 Patient Antiplatelets and statin per cardiology Seen by vascular surgery" CT surgery. Nephrology for hemodialysis. Will do basic lab work include CBC BMP now. Patient is not having significant hypoxia at this time DVT prophylaxis Restart home medications Discussed management plan in detail with patient's family. 07/13/[address] surgery and vascular surgery plans Hemodialysis was done yesterday Hemodialysis per nephrology Monitor renal function Blood sugar control with insulin pump. 07/14/2023 Fever spike last night blood cultures on empiric antibiotics for possible UTI Antibiotics changed Follow-up on cultures Follow-up on cardiothoracic surgery and oncology recommendations plan to have discussion tomorrow Blood sugars controlled Lab work otherwise stable DVT prophylaxis Hemodialysis per nephrology at 1013 RPT #:[id number] END OF REPORT [facility] 2023-07-14 09:29:00 [facility] ([facility]) Nephrology Progress Note REPORT#:[id number] REPORT STATUS: Signed DATE:07/14/23 TIME: 928 PATIENT: JOSEPH ROWLEY UNIT #: [id number] ROOM/BED: [place] [address] : 57 AGE: 68 SEX: F ATTEND: Tanvir Prasad MD ADM AUTHOR: Winnie Noyola MD * ALL edits or amendments must be made on the electronic/computer document * Subjective Comments: HD today Objective General VS/I O: Vital Signs: Date Time Temp Pulse Resp B/P B/P Pulse O2 O2 Flow FiO2 Mean Ox Delivery Rate 07/14 0916 98.6 74 18 82/45 57.5 97 Room air 07/14 0432 98.4 81 14 112/53 0.0 97 Room air 07/14 0038 99.3 82 14 126/47 0.0 98 Room air 07/13 2200 80 24 121/58 84 96 07/13 2053 83 24 128/59 85 99 07/134 86 24 134/60 87 97 07/13 1938 [...] scale Measurement Method PATIENT WEIGHT: Weight (lb): 128 Weight (oz): 1.42 Weight (kg): 58.100 Medications Active Meds + DC'd Last 24 Hrs Epoetin Tanner-epbx (RETACRIT) 4,000 UNIT TuThSa@2100 IV Ceftriaxone Sodium (ROCEPHIN 1000MG VIAL) 1,000 MG Q24H IV Sodium Chloride (SODIUM CHLORIDE) 10 ML Perflutren Lipid Microsphere (Definity) 0 .STK-MED ONE [...] 0.1MG/ML SYR) 0.5 MG ASDIR PRN IV (DC ) Sodium Chloride (SODIUM CHLORIDE 0.9%) 500 ML ASDIR PRN IV (DC) Physical Exam General appearance: alert, awake, oriented Head/eyes: atraumatic, normocephalic, PERRLA Neck: no JVD, no lymphadenopathy, no masses or swelling Cardiovascular: normal heart sounds, regular rate and rhythm, no murmur, no rub Respiratory: aerating well, clear to auscultation, normal breath sounds, no distress Abdomen: non-tender, normal bowel sounds, soft, no rebound Genitourinary: no bladder distention, no flank pain, no urinary catheter Extremities: pitting edema, no gangrene Neuro/DEMURRAGE AGENT: alert, oriented X 3, CN II-XII intact, normal speech Ulcer: Type/cause: diabetic (right heel ulcer), arterial Results Findings/Data: Laboratory Tests 07/14 356 Chemistry Sodium (134 - [...] (Auto) (14.0 - 32.0 %) 11.4 L [place] % (Auto) (4.8 - 9.0 %) 9.2 H Eos % (Auto) (0.3 - 3.7 %) 0.1 L Baso % (Auto) (0.0 - 2.0 %) 0.2 Neut # (Auto) (2.0 - 7.6 x10 3/uL) 10.40 H Lymph # (Auto) (1.0 - 3.8 x10 3/uL) 1.51 [place] # (Auto) (0.1 - 0.8 x10 3/uL) [...] (0.0 - 0.1 x10 3/uL) 0.00 Radiology data: Recent Impressions: CAT SCAN - CT CHEST W/O CONTRAST 07/13 1446 Report Impression - Status: SIGNED Entered: 07/13/2023 4734 IMPRESSION: 1. Right upper lobe inflammatory changes. 2. Nonspecific 3 mm right upper lobe pulmonary nodule for patients at low risk (minimal or absent history of smoking and of other known risk factors), no routine follow-up is indicated. For patients at high risk (history of smoking or of other known risk factors), consider optional CT Chest at 12 months. (Reference: Tony) 3. Atherosclerotic disease. 4. Bilateral small pleural effusions. REFERENCES: Danahorin H, et al. Guidelines for Management of Incidental Pulmonary Nodules Detected on CT Images: From the Fleischner Society 2017. Radiology. 2017;284(1):228-243. Impression By: [id number] - Francesca Meyer M.D. Diagnosis, Assessment Plan Free Text A P: 1. ESRD continue with TTS dialysis this week and then switch her back to Tuesday next week. HD today 2. Hypotension restart midodrine tonight 3. Coronary disease needs CABG, CT surgery consulted 4. Diabetes type 1 per primary team 5. Anemia of CKD check lab and on ESAas hemoglobin less than 10 6. Hyponatremia UF with HD as tolerated Discussed with at bedside at 1456 RPT #:[id number] END OF REPORT [facility] 2023-07-14 07:38:00 [facility] ([facility]) Cardiology Progress Note REPORT#:[id number] REPORT STATUS: Signed DATE:07/14/23 TIME: 737 PATIENT: JOSEPH ROWLEY UNIT #: [id number] ROOM/BED: [place] [address] : 57 AGE: 68 SEX: F ATTEND: Tanvir Prasad MD ADM AUTHOR: Yue Barragan AGACNP * ALL edits or amendments must be made on the electronic/computer document * Yue Barragan 07/14/23737: Subjective Comments: No CP or SOB. Resting comfortably. Objective General VS/I O: 24 hour I O ending at 0700: [...] 105/55 71 100 PATIENT WEIGHT: Weight (lb): 128 Weight (oz): 1.42 Weight (kg): 58.100 Medications: Active Meds + DC'd Last 24 Hrs Epoetin Tanner-epbx (RETACRIT) 4,000 UNIT TuThSa@2100 IV Perflutren [...] 0.1MG/ML SYR) 0.5 MG ASDIR PRN IV (DC ) Sodium Chloride (SODIUM CHLORIDE 0.9%) 500 ML ASDIR PRN IV (DC) Physical Exam General appearance: frail, alert, awake Neck: non-tender, no JVD Cardiovascular: CV assessment: regular rate and rhythm Murmur assessment: heart murmur Respiratory: clear to auscultation, no distress Abdomen: soft, non-tender, normal bowel sounds, no distention Genitourinary: no flank pain, no urinary catheter Lower extremity: LE assessment: abnormal pedal pulse, abnormal peripheral pulse Musculoskeletal: normal inspection Neuro/DEMURRAGE AGENT: alert, oriented X 3, normal speech Skin: right heel ulcer Ulcer: Type/cause: diabetic (right heel ulcer), arterial Psychiatry: normal affect, normal mood Results Findings/Data: Laboratory Tests 07/14 0356 Chemistry Sodium (134 - 147 mEq/L) 130 [...] - 2.6 mg/dL) 2.09 Laboratory Tests 07/14 0356 Hematology WBC (4.5 - 11.0 x10 3/uL) [...] (Auto) (14.0 - 32.0 %) 11.4 L [place] % (Auto) (4.8 - 9.0 %) 9.2 H Eos % (Auto) (0.3 - 3.7 %) 0.1 L Baso % (Auto) (0.0 - 2.0 %) 0.2 Neut # (Auto) (2.0 - 7.6 x10 3/uL) 10.40 H Lymph # (Auto) (1.0 - 3.8 x10 3/uL) 1.51 [place] # (Auto) (0.1 - 0.8 x10 3/uL) [...] Magnesium (1.6 - 2.6 mg/dL) 2.09 Radiology data: Recent Impressions: CAT SCAN - CT CHEST W/O CONTRAST 07/13 1446 Report Impression - Status: SIGNED Entered: 07/13/2023 3808 IMPRESSION: 1. Right upper lobe inflammatory changes. 2. Nonspecific 3 mm right upper lobe pulmonary nodule for patients at low risk (minimal or absent history of smoking and of other known risk factors), no routine follow-up is indicated. For patients at high risk (history of smoking or of other known risk factors), consider optional CT Chest at 12 months. (Reference: Tony) 3. Atherosclerotic disease. 4. Bilateral small pleural effusions. REFERENCES: Tony Angel, et al. Guidelines for Management of Incidental Pulmonary Nodules Detected on CT Images: From the Fleischner Society 2017. Radiology. 2017;284(1):228-243. Impression By: [id number] - Francesca Meyer M.D. Results: labs reviewed, vital signs reviewed, rhythm personally rev'd Telemetry Interpretation: sinus rhythm Diagnosis, Assessment Plan Plan discussed with: patient, collaborating MD Free Text DxA P Notes Free Text DxA P Notes: 68 YO female with MHx of IDDM on insulin pump, nonhealing foot ulcers, ESRD on HD MWF, recent diagnosis of severe cardiomyopathy, HFrEF with LVEF of 25% as well as severe MR. She had elective coronary and peripheral angiogram today, which revealed multivessel CAD and severe bilateral PAD. Vascular surgery and cardiothoracic surgery has been consulted. History provided by the patient and supplemented by nichau who is the MPOA. 1. Multivessel CAD * CTS workup onging for CABG plus MVR * Aspirin, statin * extremely elevated STS risk score about 50% * nuclear viability study * CTA head, neck, abdomen, pelvis to evaluate subclavian artery, carotid arteries, mesenteric arteries * case will be presented at the CV high risk conference tomorrow 2. Severe PAD with nonhealing foot ulcers * Vascular surgery recommendation noted 3. Mitral regurgitation * CTS eval for MVR * repeat echo with contrast 4. Ischemic cardiomyopathy/HFrEF * volume management per HD * on midodrine d/t chronic hypotension * no ACEI or ARB d/t chronic hypotension requiring midodrine 5. ESRD - on HD * nephrology following 6. IDDM * per primary team MDM by Dr. Pak. Kimberly Pak 07/15/23 1712: Attestations Physician Attestation Agree w/findings plan: I have seen and examined the pt, I Agree with the findings and plan as documented by Yue Barragan. at 1354 at 1712 RPT #:[id number] END OF REPORT [facility] 2023-07-13 18:26:00 [facility] Cardiothoracic Surgery Prog REPORT#:[id number] REPORT STATUS: Signed DATE:07/13/23 TIME: 1825 PATIENT: JOSEPH ROWLEY UNIT #: [id number] ROOM/BED: [place] [address] : 57 AGE: 68 SEX: F ATTEND: Tanvir Prasad MD ADM AUTHOR: Trudy Colindres Physic * ALL edits or amendments must be made on the electronic/computer document * Subjective Chief complaint: CAD, PVD nonhealing lower extremity ulcers Patient resting comfortable. Review of Systems Constitutional: Denies: fever, generalized weakness. Skin: Denies: rash, swelling. Allergy/Immun: Denies: itching, rhinorrhea. Eyes: Denies: itching, diplopia. Respiratory: Denies: VICENTE (dyspnea on exertion), hemoptysis. Cardiovascular: Denies: VICENTE (dyspnea on exertion), edema. GI: Denies: constipation, diarrhea. : Denies: dysuria, hematuria. Musculoskeletal: Denies: joint pain, joint swelling. Heme: Denies: bleeding, bruising. Endocrine: Denies: polydipsia, polyuria. Neuro: Denies: confusion, dizziness. All systems rev neg: except as marked Objective General VS/I O Last Documented: Result Date Time Temp 99.3 07/13 [...] scale Measurement Method PATIENT WEIGHT: Weight (lb): 125 Weight (oz): 14.14 Weight (kg): 57.100 Physical Exam General appearance: alert, awake, oriented HEENT: anicteric, mucosal membranes moist Cardiovascular: BP/pulses equal bilat., regular rate rhythm Respiratory: aerating well, clear to auscultation Abdomen: soft, non-tender Extremities: dry, moves all Musculoskeletal: full range of motion, painless range of motion Neuro/DEMURRAGE AGENT: alert, oriented X 3 Skin: dry, intact Ulcer: Type/cause: diabetic (right heel ulcer), arterial Diagnosis, Assessment Plan Hospital course to date: This is a very pleasant 68-year-old female with a past medical history of type 1 diabetes from the age of 46 years old, end-stage renal disease, on dialysis since July 2022, hypertension who presented to her research epidemiologist for evaluation of bilateral nonhealing ulcerations of her bilateral heels for the past 3 months, and shortness of breath with exertion. Her last echocardiogram was completed with her research epidemiologist showing an EF 20-25% with mild LVH, severe global hypokinesis, mildly dilated left atrium with moderate aortic sclerosis without stenosis, mitral valve leaflets mildly thickened with severe MR, mild to moderate TR, moderate pulmonary hypertension with an RV systolic pressure 62 mmHg. Patient underwent left heart catheterization today and was found to have severe three-vessel coronary artery disease, with severe bilateral occluded SFAs of the lower extremity. CV surgery consulted for evaluation for coronary artery bypass graft surgery Assessment/plan 1. Severe three-vessel CAD 2. Type I diabetic 3. Severe peripheral vascular disease 4. Nonhealing bilateral heel ulcerations 5. Hypertension 6. Hyperlipidemia 7. CHF Documented EF 20-25% in the outpatient setting 04/05 8. Mitral valve regurgitation Noted to be severe [...] atrial pressure. Average global longitudinal strain is -5.7. 2. Right ventricle: Systolic function is mildly to moderately reduced. Systolic pressure is severely increased. 3. Left atrium: The atrium is dilated. The end-systolic volume index (A-L) is 50 ml/m 2. 4. Mitral valve: The annulus is calcified. Prolapse cannot be excluded. There is moderate to severe regurgitation, directed posteriorly and along the left atrial wall. The effective regurgitant orifice (PISA) is 0.39 cm 2. The regurgitant volume (PISA) is 46 ml. 5. Tricuspid valve: Estimated right ventricular systolic pressure is 76 mmHg. There is moderate-severe regurgitation directed toward the septum. 6. Pericardium, extracardiac: There is a large left pleural effusion. 7. Inferior vena cava: The vessel is dilated. The respirophasic diameter changes are blunted (< 50%). Inferior vena cava diameter measures 2.2 cm. 07/13/23 Patinet resting comfortable, Denies any new complaints. On room air. Sinus rhythm. AAO x 3 Cardiac workup still underway. CTA head, abdomena nd pelvis ordered by cardiology. Patient will be presented in the high risk cardiology conference. Further recs to follow. at 1831 at 1600 [facility] #:[id number] END OF REPORT [facility] 2023-07-13 15:16:00 [id number] [address] PATIENT NAME: JOSEPH ROWLEY ADMIT DATE: 07/12/23 ACCOUNT NO: [id number] ROOM NO: [id number] AGE: 68 REPORT TYPE: eECHOCARDIOGRAM REPORT SEX: F ADMITTING PHYSICIAN:Tanvir Prasad MD ATTENDING PHYSICIAN:Cinthya Leiva MD *[address] [address] Transthoracic Echocardiogram Patient: Joseph Rowley Study Date: 07/13/2023 BP: 105 / 55 Location: [facility] URN: [id number] : 1955 Age: 68 Height: 57 in / 144.8 cm Gender: F Weight: 124.7 lb / 56.7 kg BMI/BSA: 27 kg/m 2 / 1.47 m 2 *Ordering Physician: * Kimberly Pak MD *Interpreting Physician: * Kimberly Pak MD *Results Technician: * Ana Laura Boone Indications: Severe MR, assess ejection fraction. Study data: Transthoracic echocardiogram. Procedure: Transthoracic echocardiography was performed. Image quality was adequate. Intravenous contrast (Definity) was administered. Complete 2D, complete spectral Doppler, and color Doppler. Location: Bedside. Patient status: Inpatient. Patient room number: 3356. Study status: Routine. Rhythm: Normal sinus rhythm. Findings Left ventricle: The cavity size is normal. Wall thickness is normal. Systolic function is severely reduced. The estimated ejection fraction is 30-34%. Severe diffuse hypokinesis. Average global longitudinal strain is -5.7. Doppler parameters are consistent with restrictive physiology, indicative of decreased left ventricular diastolic PATIENT NAME: JOSEPH ROWLEY compliance and/or increased left atrial pressure. Right ventricle: Estimated TAPSE is 1.1 cm. The cavity size is normal. Systolic function is mildly to moderately reduced. Systolic pressure is severely increased. Left atrium: The atrium is dilated. Right atrium: The atrium is normal in size. Aorta: Aortic root: The aortic root is normal in size. Aortic valve: The valve is structurally normal. The valve is trileaflet. There is no evidence of stenosis. There is no regurgitation. Mitral valve: The annulus is calcified. Prolapse cannot be excluded. There is no evidence of stenosis. There is moderate to severe regurgitation, directed posteriorly and along the left atrial wall. Tricuspid valve: Estimated right ventricular systolic pressure is 76 mmHg. The valve is structurally normal. There is moderate-severe regurgitation directed toward the septum. Pulmonic valve: The valve is structurally normal. There is no regurgitation. Pericardium: There is no pericardial effusion. There is a large left pleural effusion. Pulmonary arteries: The main pulmonary artery is normal-sized. Systemic veins: Inferior vena cava: The vessel is dilated. The respirophasic diameter changes are blunted (< 50%). Inferior vena cava diameter measures 2.2 cm. Measurements Left ventricle Value Ref GLS, 2D [...] cm/sec >=10.0 TDI E/e', lat emilee, 13 --------- PATIENT NAME: JOSEPH ROWLEY TDI E', med emilee, [...] 3.1 A4C Vol, ES, A/L 40 ml --------- PATIENT NAME: JOSEPH ROWLEY Vol, ES, 1-p 40 [...] % --------- PISA Pulmonic valve Value Ref NC v, ED 0.88 m/sec --------- Tricuspid valve Value Ref TR peak v 3.82 m/sec <=2.8 Peak RV-RA 58 mm Hg --------- grad, S ERO, PISA 0.23 cm 2 --------- Aortic root Value Ref Root diam, ED 2.62 cm --------- MM PATIENT NAME: JOSEPH ROWLEY Conclusions Summary: 1. Left ventricle: The cavity size is normal. Wall thickness is normal. Systolic function is severely reduced. The estimated ejection fraction is 30-34%. Severe diffuse hypokinesis. Doppler parameters are consistent with restrictive physiology, indicative of decreased left ventricular diastolic compliance and/or increased left atrial pressure. Average global longitudinal strain is -5.7. 2. Right ventricle: Systolic function is mildly to moderately reduced. Systolic pressure is severely increased. 3. Left atrium: The atrium is dilated. The end-systolic volume index (A-L) is 50 ml/m 2. 4. Mitral valve: The annulus is calcified. Prolapse cannot be excluded. There is moderate to severe regurgitation, directed posteriorly and along the left atrial wall. The effective regurgitant orifice (PISA) is 0.39 cm 2. The regurgitant volume (PISA) is 46 ml. 5. Tricuspid valve: Estimated right ventricular systolic pressure is 76 mmHg. There is moderate-severe regurgitation directed toward the septum. 6. Pericardium, extracardiac: There is a large left pleural effusion. 7. Inferior vena cava: The vessel is dilated. The respirophasic diameter changes are blunted (< 50%). Inferior vena cava diameter measures 2.2 cm. Prepared and electronically signed by Kimberly Pak MD 07/13/2023 15:16 at 1516 PATIENT NAME: JOSEPH ROWLEY [facility] 2023-07-13 14:31:00 [facility] Nephrology Progress Note REPORT#:[id number] REPORT STATUS: Signed DATE:07/13/23 TIME: 1431 PATIENT: JOSEPH ROWLEY UNIT #: [id number] ROOM[address]BED[address] : [address] AGE: 68 SEX: F ATTEND: Cinthya Leiva MD ADM AUTHOR: Winnie Noyola MD * ALL edits or amendments must be made on the electronic/computer document * Subjective Comments: No complaint Objective General VS/I O: Vital Signs: Date Time Temp Pulse Resp [...] 07/12 2100 90 21 143/64 92 99 07/12 2045 89 19 148/60 87 100 07/12 2032 [...] scale Measurement Method PATIENT WEIGHT: Weight (lb): 125 Weight (oz): 14.14 Weight (kg): 57.100 Medications Active Meds + DC'd Last 24 Hrs Aspirin (ASPIRIN) 81 MG DAILY PO Midodrine [...] 0.1MG/ML SYR) 0.5 MG ASDIR PRN IV (DC ) Sodium Chloride (SODIUM CHLORIDE 0.9%) 1,000 ML .[id number] IV (DC) Sodium Chloride (SODIUM CHLORIDE 0.9%) 500 ML ASDIR PRN IV (DC) Physical Exam General appearance: alert, awake, oriented Head/eyes: atraumatic, normocephalic, PERRLA Neck: no JVD, no lymphadenopathy, no masses or swelling Cardiovascular: normal heart sounds, regular rate and rhythm, no murmur, no rub Respiratory: aerating well, clear to auscultation, normal breath sounds, no distress Abdomen: non-tender, normal bowel sounds, soft, no rebound Genitourinary: no bladder distention, no flank pain, no urinary catheter Extremities: pitting edema, no gangrene Neuro/DEMURRAGE AGENT: alert, oriented X 3, CN II-XII intact, normal speech Results Findings/Data: Laboratory Tests 07/12 1802 Chemistry Sodium (134 - [...] (Auto) (14.0 - 32.0 %) 9.0 L [place] % (Auto) (4.8 - 9.0 %) 8.5 Eos % (Auto) (0.3 - 3.7 %) 0.1 L Baso % (Auto) (0.0 - 2.0 %) 0.1 Neut # (Auto) (2.0 - 7.6 x10 3/uL) 11.07 H Lymph # (Auto) (1.0 - 3.8 x10 3/uL) 1.22 [place] # (Auto) (0.1 - 0.8 x10 3/uL) [...] pH (5.0 - 7.0) 6.0 Ur Specific [place] (1.005 - 1.030) 1.010 Urine Protein (NEGATIVE) [...] Urine Bacteria (NONE SEEN /HPF) TRACE Radiology data: Recent Impressions: ULTRASOUND - DUP VEIN SHEKHAR 07/13 0656 Report Impression - Status: SIGNED Entered: 07/13/2023 0719 IMPRESSION: Greater saphenous vein is patent. Vein mapping as described. Impression By: [email or web address] - Leonardo Martell M.D. ULTRASOUND - DUP EXTRACRANIAL SHEKHAR 07/13 0656 Report Impression - Status: SIGNED Entered: 07/13/2023 0948 IMPRESSION: 1. No ultrasound evidence for hemodynamically significant stenosis to either carotid artery. Consensus panel Doppler US criteria for diagnosis of ICA stenosis: Stenosis (%) ICA PSV (cm/sec) ICA/CCA ratio ----- <50 <180 <2.0 50-69 180-230 2.0-4.0 >70 but less than >230 >4.0 near occlusion Near occlusion High, low, or Variable undetectable Impression By: [email or web address] Ozzy Liao M.D. Diagnosis, Assessment Plan Free Text A P: 1. ESRD continue with TTS dialysis this week and then switch her back to Tuesday next week. HD 2. Hypotension restart midodrine tonight 3. Coronary disease needs CABG, CT surgery consulted 4. Diabetes type 1 prior primary team 5. Anemia of CKD check lab and start ESAas hemoglobin less than 10 Discussed with at bedside at 1730 RPT #:[id number] END OF REPORT [facility] 2023-07-13 10:44:00 [facility] Hospitalist Progress Note REPORT#:[id number] REPORT STATUS: Signed DATE:07/13/23 TIME: 1044 PATIENT: JOSEPH ROWLEY UNIT #: [id number] ROOM/BED: [place] [id number] : 57 AGE: 68 SEX: F ATTEND: Cinthya Leiva MD ADM AUTHOR: Cinthya Leiva MD * ALL edits or amendments must be made on the electronic/computer document * Subjective Chief complaint: CAD HPI: She is feeling well Review of Systems All systems rev neg: except as noted Objective General VS/I O: Vital Signs: Date Time Temp Pulse Resp [...] 98 07/120 97 20 117/57 82 98 07/125 99 [...] scale Measurement Method PATIENT WEIGHT: Weight (lb): 125 Weight (oz): 14.14 Weight (kg): 57.100 Medications: Active Meds + DC'd Last 24 Hrs Aspirin (ASPIRIN) 81 MG DAILY PO Midodrine [...] Sodium Chloride (SODIUM CHLORIDE 0.9%) 1,000 ML .[id number] IV (DC) Sodium Chloride (SODIUM CHLORIDE 0.9%) 500 ML ASDIR PRN IV Heparin Sodium/Sodium Chloride (HEPARIN 1,000 UNITS/NS 500ML) 500 ML .STK- MED ONE IV (DC) Lidocaine HCl (LIDOCAINE HCL/PF) [...] (ISOPTIN) 0 .STK-MED ONE IV (DC) Physical Exam Neck: full range of motion Cardiovascular: normal capillary refill, normal heart sounds, regular rate rhythm Respiratory: aerating well, clear to auscultation, symmetric expansion, no distress Abdomen: non-tender, normal bowel sounds, soft, no distention Neuro/DEMURRAGE AGENT: alert, oriented X 3 Ulcer: Type/cause: diabetic (right heel ulcer), arterial Results Findings/Data: Laboratory Tests 07/12 1802 Chemistry Sodium (134 - [...] (Auto) (14.0 - 32.0 %) 9.0 L [place] % (Auto) (4.8 - 9.0 %) 8.5 Eos % (Auto) (0.3 - 3.7 %) 0.1 L Baso % (Auto) (0.0 - 2.0 %) 0.1 Neut # (Auto) (2.0 - 7.6 x10 3/uL) 11.07 H Lymph # (Auto) (1.0 - 3.8 x10 3/uL) 1.22 [place] # (Auto) (0.1 - 0.8 x10 3/uL) [...] pH (5.0 - 7.0) 6.0 Ur Specific [place] (1.005 - 1.030) 1.010 Urine Protein (NEGATIVE) [...] Urine Bacteria (NONE SEEN /HPF) TRACE Radiology data: Recent Impressions: ULTRASOUND - DUP VEIN SHEKHAR 07/13 0656 Report Impression - Status: SIGNED Entered: 07/13/202347 IMPRESSION: Greater saphenous vein is patent. Vein mapping as described. Impression By: [email or web address] - Leonardo Martell M.D. ULTRASOUND - DUP EXTRACRANIAL SHEKHAR 07/13 0656 Report Impression - Status: SIGNED Entered: 07/13/2023 0948 IMPRESSION: 1. No ultrasound evidence for hemodynamically significant stenosis to either carotid artery. Consensus panel Doppler US criteria for diagnosis of ICA stenosis: Stenosis (%) ICA PSV (cm/sec) ICA/CCA ratio ----- <50 <180 <2.0 50-69 180-230 2.0-4.0 >70 but less than >230 >4.0 near occlusion Near occlusion High, low, or Variable undetectable Impression By: [email or web address] - David Liao M.D. Diagnosis, Assessment Plan Free Text DxA P Notes Free text DxA P notes: 68-year-old female with a past medical history of type 1 diabetes from the age of 46 years old, end-stage renal disease, on dialysis since July 2022, hypertension who presented to her research epidemiologist for evaluation of bilateral nonhealing ulcerations of her bilateral heels for the past 3 months, and shortness of breath with exertion. Left heart catheterization showed significant for severe three-vessel coronary artery disease with severe bilateral occluded SFAs of the lower extremity. Issues as below. Severe three-vessel CAD Severe peripheral vascular disease Diabetes mellitus End-stage renal failure on hemodialysis Nonhealing bilateral heel ulcerations Hypertension Hyperlipidemia CHF Documented EF 20-25% in the outpatient setting 04/05 8. Mitral valve regurgitation Noted to be severe on echocardiogram from March 2023 in the outpatient setting Plan plan and recommendations Patient admitted into medicine Vital signs every 4 Patient Antiplatelets and statin per cardiology Seen by vascular surgery" CT surgery. Nephrology for hemodialysis. Will do basic lab work include CBC BMP now. Patient is not having significant hypoxia at this time DVT prophylaxis Restart home medications Discussed management plan in detail with patient's family. 07/13/[address] surgery and vascular surgery plans Hemodialysis was done yesterday Hemodialysis per nephrology Monitor renal function Blood sugar control with insulin pump. at 1044 RPT #:[id number] END OF REPORT [facility] 2023-07-13 07:38:00 [facility] ([facility]) Cardiology Progress Note REPORT#:[id number] REPORT STATUS: Signed DATE:07/13/23 TIME: 737 PATIENT: JOSEPH ROWLEY UNIT #: [id number] ROOM/BED: [place] [address] : 57 AGE: 68 SEX: F ATTEND: Tanvir Prasad MD ADM AUTHOR: Yue Barragan AGACNP * ALL edits or amendments must be made on the electronic/computer document * Yue Barragan 07/13/23 0738: Subjective Patient reports: No: complaints. Review of Systems Respiratory: Denies: SOB. Cardiovascular: Denies: chest pain. Objective General VS/I O: 24 hour I O ending at 0700: 07/13 0700 07/12 1900 Intake Total Output Total 2600 Balance -2600 Number 2 Bowel Movements Output, 2500 Hemodialysis Output, Urine 100 Patient 57.1 kg Weight Weight Standing scale Measurement Method Vital Signs Date Temp Pulse Resp B/P B/P Mean Pulse Ox FiO2 07/12-07/13 36.0-38.7 72-99 14-31 91-152/41-71 0.0-97 96-100 PATIENT WEIGHT: Weight (lb): 125 Weight (oz): 14.14 Weight (kg): 57.100 Medications: Active Meds + DC'd Last 24 Hrs Aspirin (ASPIRIN) 81 MG DAILY PO Midodrine [...] Sodium Chloride (SODIUM CHLORIDE 0.9%) 1,000 ML .[id number] IV (DC) Sodium Chloride (SODIUM CHLORIDE 0.9%) 500 ML ASDIR PRN IV Heparin Sodium/Sodium Chloride (HEPARIN 1,000 UNITS/NS 500ML) 500 ML .STK- MED ONE IV (DC) Lidocaine HCl (LIDOCAINE HCL/PF) [...] (ISOPTIN) 0 .STK-MED ONE IV (DC) Physical Exam General appearance: alert, awake, oriented Neck: non-tender, no JVD Cardiovascular: CV assessment: regular rate and rhythm Murmur assessment: heart murmur Respiratory: clear to auscultation, no distress Abdomen: soft, non-tender, normal bowel sounds, no distention Genitourinary: no flank pain, no urinary catheter Lower extremity: LE assessment: abnormal pedal pulse, abnormal peripheral pulse Musculoskeletal: normal inspection Neuro/DEMURRAGE AGENT: alert, oriented X 3, normal speech Skin: right heel ulcer Ulcer: Type/cause: diabetic (right heel ulcer), arterial Psychiatry: normal affect, normal mood Results Findings/Data: Laboratory Tests 07/12 07/12 1802 0834 Chemistry Sodium [...] (Auto) (14.0 - 32.0 %) 9.0 L [place] % (Auto) (4.8 - 9.0 %) 8.5 Eos % (Auto) (0.3 - 3.7 %) 0.1 L Baso % (Auto) (0.0 - 2.0 %) 0.1 Neut # (Auto) (2.0 - 7.6 x10 3/uL) 11.07 H Lymph # (Auto) (1.0 - 3.8 x10 3/uL) 1.22 [place] # (Auto) (0.1 - 0.8 x10 3/uL) [...] pH (5.0 - 7.0) 6.0 Ur Specific [place] (1.005 - 1.030) 1.010 Urine Protein (NEGATIVE) [...] Urine Bacteria (NONE SEEN /HPF) TRACE Radiology data: Recent Impressions: ULTRASOUND - DUP VEIN SHEKHAR 07/13 0656 Report Impression - Status: SIGNED Entered: 07/13/2023 8782 IMPRESSION: Greater saphenous vein is patent. Vein mapping as described. Impression By: Elpidio - Leonardo Martell M.D. Telemetry Interpretation: sinus rhythm Diagnosis, Assessment Plan Plan discussed with: patient, healthcare power of atty, family, admitting physician, collaborating MD, consultants Free Text DxA P Notes Free Text DxA P Notes: 68 YO female with MHx of IDDM on [...] and supplemented [facility]. 1. Multivessel CAD * CTS workup onging for CABG plus MVR * Aspirin, statin * extremely elevated STS risk score about 50% * CTA head, neck, abdomen, pelvis to evaluate subclavian artery, carotid arteries, mesenteric arteries * case will be presented at the CV high risk conference on Tuesday 2. Severe PAD with nonhealing foot ulcers * Vascular surgery recommendation noted 3. Mitral regurgitation * CTS eval for MVR * repeat echo with contrast 4. Ischemic cardiomyopathy/HFrEF * volume management per HD * on midodrine d/t chronic hypotension * no ACEI or ARB d/t chronic hypotension requiring midodrine 5. ESRD - on HD * nephrology following 6. IDDM * per primary team Case discussed in depth with patient, niece (MPOA), spouse. MDM by Dr. Pak. Kimberly Pak 07/15/23 1706: Attestations Physician Attestation Agree w/findings plan: I have seen and examined the pt, I Agree with the findings and plan as documented by Yue Barragan. Patient with diabetes type 1 for 60 years, end-stage renal disease on hemodialysis for about 9 months, extensive peripheral arterial disease including occluded iliac arteries and common femoral arteries, severely reduced ejection fraction with moderate to severe MR. Patient STS is very high and she is extreme high risk/prohibitive risk for surgery. We will need to check viability , will do JULIA for persistent MR severity and discussed in the complex coronary conference for revascularization options. at 1417 at 1719 [facility] #:[id number] END OF REPORT [facility] 2023-07-12 17:23:00 [facility] ([facility]) Nephrology Consultation Note REPORT#:[id number] REPORT STATUS: Signed DATE:07/12/23 TIME: 1722 PATIENT: JOSEPH ROWLEY UNIT #: [id number] ROOM/BED: [facility] : 57 AGE: 68 SEX: F ATTEND: Cinthya eLiva MD ADM AUTHOR: Winnie Noyola MD * ALL edits or amendments must be made on the electronic/computer document * History of Present Illness Reason for consult: ESRD HPI: Patient is a 68-year-old female with past medical history of ESRD on hemodialysis Tuesday, diabetes type 1 since she was 6 years old, hypotension was admitted after coronary angiogram as needing CABG. Last dialysis was Tuesday. Denies having any complaint. History - Adult longitudinal Additional medical history: type 1 diabetes from the age of 46 years old, end-stage renal disease, on dialysis since July 2022, hypertension Family history: Denies: CAD < 40 yrs old. Additional family history: reviewed and is noncontributory. Alcohol use: Denies EtOH use Drug use: Denies recreational drugs Smoking status for patients 13 years old or older: Never Smoker Allergies: Coded Allergies: Sulfa (Sulfonamide Antibiotics) (Severe, rash 07/11/23) codeine (Intermediate, NAUSEA 07/11/23) Review of Systems Constitutional: Denies: chills, fatigue, fever, generalized weakness, lethargy, malaise, recent wt loss, other. Skin: Denies: abrasion, bruising, contusion, diaphoresis, ecchymosis, itching, laceration, rash, swelling, other. Eyes: Denies: redness, discharge, visual loss/blurred, itching, diplopia, eye pain, photophobia, swelling, other. ENT: Denies: ear drainage, ear ringing, earache, hearing loss, mouth pain, nasal congestion, nose bleeding, sinus problem, sore throat, throat pain, throat swelling, tongue pain, tongue swelling, toothache, voice change, other. Respiratory: Denies: VICENTE (dyspnea on exertion), hemoptysis, non productive cough, parox nocturnal dyspnea, pleurisy, pleuritic pain, pneumonia, productive cough (sputum ), SOB, wheezing, other. Cardiovascular: Denies: chest pain, VICENTE (dyspnea on exertion), edema, orthopnea, palpitations, parox nocturnal dyspnea, other. GI: Denies: abdominal pain, anorexia, constipation, diarrhea, dysphagia, GERD, hematemesis, hematochezia, hiatal hernia, melena, nausea, rectal pain, vomiting, other. : Denies: dysuria, flank pain, frequency, hematuria, nocturia, pelvic pain, , urgency, urinary retention, vaginal bleeding, vaginal discharge, other. Endocrine: Denies: cold intolerance, heat intolerance, polydipsia, polyphagia, polyuria, weight gain, weight loss, other. Neuro: Denies: bladder dysfunction, bowel dysfunction, change in LOC, confusion, dizziness, focal weakness, gait problem, headache, lightheaded, numbness, seizure, slurred speech, spinning sensation, syncope, unable to speak, vision change, weakness, other. Objective General VS/I O: Vital Signs: Date Time Temp Pulse Resp [...] scale Measurement Method PATIENT WEIGHT: Weight (lb): 126 Weight (oz): 4.25 Weight (kg): 57.273 Medications: Active Meds + DC'd Last 24 Hrs Aspirin (ASPIRIN) 81 MG DAILY PO Midodrine [...] Sodium Chloride (SODIUM CHLORIDE 0.9%) 1,000 ML .[id number] IV Sodium Chloride (SODIUM CHLORIDE 0.9%) 500 ML ASDIR PRN IV Heparin Sodium/Sodium Chloride (HEPARIN 1,000 UNITS/NS 500ML) 500 ML .STK- MED ONE IV (DC) Lidocaine HCl (LIDOCAINE HCL/PF) [...] (ISOPTIN) 0 .STK-MED ONE IV (DC) Physical Exam General appearance: alert, awake, oriented Head/eyes: atraumatic, normocephalic, PERRLA Neck: no JVD, no lymphadenopathy Cardiovascular: normal heart sounds, regular rate and rhythm, no murmur, no rub Respiratory: aerating well, clear to auscultation, normal breath sounds, symmetric expansion, no distress Abdomen: non-tender, normal bowel sounds, soft, no rebound Extremities: pitting edema, no gangrene Neuro/DEMURRAGE AGENT: alert, oriented X 3, CN II-XII intact, normal speech Results Findings/Data: Laboratory Tests 07/12 0834 Chemistry POC Glucose (70 - 110 MG/DL) 164 H Laboratory Tests 07/12 07/12 1356 1232 Coagulation Activated Coag Time (74 - 137 SEC) 119 161 H Diagnosis, Assessment Plan Free Text DxA P Notes Free text DxA P notes: 1. ESRD continue with TTS dialysis this week [...] you for the consult at 1728 RPT #:[id number] END OF REPORT [facility] 2023-07-12 15:21:00 [facility] ([facility]) Vascular Surgery Consult Note REPORT#:[id number] REPORT STATUS: Signed DATE:07/12/23 TIME: 1521 PATIENT: JOSEPH ROWLEY UNIT #: [id number] ROOM/BED: [place] [address] : 57 AGE: 68 SEX: F ATTEND: Cinthya Leiva MD ADM AUTHOR: Luis Carlos Huggins MD * ALL edits or amendments must be made on the electronic/computer document * History of Present Illness Requesting Clinician: Dr. Grover Reason for consult: Severe bilateral aortolilic and peripheral arterial disease, bilateral heel ulcers Chief complaint: shortness of breath, vicente, heel ulcers HPI: 68-year-old female with a past medical history of type 1 diabetes from the age of 46 years old, end-stage renal disease, on dialysis since July 2022, hypertension, mitral valve regurgitation, presented to her research epidemiologist for evaluation of nonhealing ulcerations of her bilateral heels for the past 3 months, and shortness of breath with exertion. Her last echocardiogram was completed with her research epidemiologist showing an EF 20-25% with mild LVH, severe global hypokinesis, mildly dilated [...] and bilateral superficial femoral artery occlusions of the lower extremity. CV surgery consulted for evaluation for coronary artery bypass graft surgery History - Adult longitudinal Smoking status for patients 13 years old or older: Never Smoker Medications: Home Medications: Medication Dose/Rte/Freq Days Qty Entered Last [...] [INSULIN PUMP] 07/11/23 Strength: 1152 Current Hospital Medications: Autonomic Drugs Sig/Stephan Start time Last Medication Dose [...] PO 08/11 1659 Sodium Chloride 1,000 ML .[id number] 07/12 1215 AC (SODIUM CHLORIDE IV 07/13 0134 0.9%) Sodium Chloride 500 ML ASDIR PRN 07/12 1215 AC (SODIUM CHLORIDE IV 07/13 1206 0.9%) Gastrointestinal Drugs Sig/Stephan Start time Last Medication Dose Route Stop Time Status Admin Famotidine 40 MG BEDTIME 07/12 2100 DC (PEPCID) PO 08/11 2059 Famotidine 40 MG BEDTIME 07/12 2100 CAN (PEPCID) PO 08/11 2059 Review of Systems: Constitutional: Negative for fever, chills, weight loss Skin positive for bilateral heel ulcers HEENT: Denies hearing loss denies any ear ringing denies any earache denies any sore throat denies any throat pain Respiratory: Positive for shortness of breath with exertion Cardiac: Denies chest pain, denies palpitations denies orthopnea GI: Denies constipation denies diarrhea : Denies hematuria denies dysuria denies flank pain Musculoskeletal: Denies any joint pain denies any joint swelling denies any myalgia Hematologic: Denies any easy bruising, denies any bleeding Endocrine: Positive for type 1 diabetes since the age of 6 Neurologic: Denies any lightheaded denies any headache denies any confusion denies any dizziness Allergies: Coded Allergies: Sulfa (Sulfonamide Antibiotics) (Severe, rash 07/11/23) codeine (Intermediate, NAUSEA 07/11/23) Objective VS/I O: Last Documented: Result Date Time Pulse Ox 100 07/11 1111 B/P 127/58 07/11 1111 Temp 97.5 07/11 1111 Pulse 72 07/11 1111 24 hour I O ending at 0700: 07/12 0700 07/11 1900 Intake Total Output Total Balance Patient 57.273 kg Weight Weight Standing scale Measurement Method PATIENT WEIGHT: Weight (lb): 126 Weight (oz): 4.25 Weight (kg): 57.273 General: well nourished, well groomed, no acute distress. HEENT: conjunctiva clear, extraocular movement intact, PE, EOMI Neck: no, JVD, trachea midline, no, lymphadenopathy, neck supple, normal ROM. Respiratory: Symmetrical chest rise, no distress. Cardiovascular: regular rate and rhythm, S1, S2, Abdomen: Soft, non tender. non distention Extremities: Bilateral heel dressing in place Musculoskeletal: Full range of motion, no CVA tenderness, no muscle spasm Skin: warm, dry, no, lesions, rash. Neurologic: Alert and oriented x3. Psychiatric: affect and demeanor normal Findings/Data: Laboratory Tests 07/12 0834 Chemistry POC Glucose (70 - 110 MG/DL) 164 H Laboratory Tests 07/12 07/12 1356 1232 Coagulation Activated Coag Time (74 - 137 SEC) 119 161 H Diagnosis, Assessment Plan Problem List/A P: 1. PAD (peripheral artery disease) 2. ESRD (end stage renal disease) on dialysis 3. Coronary artery disease 4. Mitral regurgitation 5. HFrEF (heart failure with reduced ejection fraction) Free Text A P: Patient is a poor endovascualr candidate with bilateral common femoral artery occlusion. [place] treatment would be aorto-bifemoral bypass with bilateral common femoral endarterectomies with possible popliteal bypass versus stent placement, however the patient has severe CAD and MVR making her high risk for anesthesia required. Her heel ulcers and ESRD increase morbifdity of CABG with cardiothoracic surgery on board for evaulation and management/recommendations. Consider bilateral bka as least morbid/mortal life-saving measure. Otherwise can attempt bilateral common femoral endarterectomy under local with sedation with retrograde aorto-ilic stent if possible and antegrade femoral stents for limb salvage with significant mortality risk. at 1601 RPT #:[id number] END OF REPORT [facility] 2023-07-12 14:46:00 [facility] ([facility] Hospitalist History Physical REPORT#:[id number] REPORT STATUS: Signed DATE:07/12/23 TIME: 1446 PATIENT: JOSEPH ROWLEY UNIT #: [id number] ROOM/BED: [place] [address] : 57 AGE: 68 SEX: F ATTEND: Cinthya Leiva MD ADM AUTHOR: Cinthya Leiva MD * ALL edits or amendments must be made on the electronic/computer document * History of Present Illness HPI Chief complaint: CAD HPI: 68-year-old female with a past medical history of type 1 diabetes from the age of 46 years old, end-stage renal disease, on dialysis since July 2022, hypertension who presented to her research epidemiologist for evaluation of bilateral nonhealing ulcerations of her bilateral heels for the past 3 months, and shortness of breath with exertion. Her last echocardiogram was completed with her research epidemiologist showing an EF 20-25% with mild LVH, severe global hypokinesis, mildly dilated left atrium with moderate aortic sclerosis without stenosis, mitral valve leaflets mildly thickened with severe MR, mild to moderate TR, moderate pulmonary hypertension with an RV systolic pressure 62 mmHg. Patient underwent left heart catheterization today and was found to have severe three-vessel coronary artery disease, with severe bilateral occluded SFAs of the lower extremity. History Past Medical Surgical Hx Additional medical history: type 1 diabetes from the age of 46 years old, end-stage renal disease, on dialysis since July 2022, hypertension Family History Additional family history: reviewed and is noncontributory. Social History Smoking status for patients 13 years old or older: Never Smoker Medication/Allergy-Vaccine Hx Allergies: Coded Allergies: Sulfa (Sulfonamide Antibiotics) (Severe, rash 07/11/23) codeine (Intermediate, NAUSEA 07/11/23) Review of Systems All systems rev neg: except as noted OBJECTIVE VS/I O: Last Documented: Result Date Time Pulse Ox 100 07/11 1111 B/P 127/58 07/11 1111 Temp 36.4 07/11 1111 Pulse 72 07/11 1111 24 hour I O ending at 0700: 07/12 0700 07/11 1900 Intake Total Output Total Balance Patient 57.273 kg Weight Weight Standing scale Measurement Method Patient Weight and BMI Weight (kg): 57.273 BMI: 28.3 Medications: Active Meds + DC'd Last 24 Hrs Aspirin (ASPIRIN) 81 MG DAILY PO Midodrine [...] Sodium Chloride (SODIUM CHLORIDE 0.9%) 1,000 ML .[id number] IV Sodium Chloride (SODIUM CHLORIDE 0.9%) 500 ML ASDIR PRN IV Heparin Sodium/Sodium Chloride (HEPARIN 1,000 UNITS/NS 500ML) 500 ML .STK- MED ONE IV (DC) Lidocaine HCl (LIDOCAINE HCL/PF) [...] .STK-MED ONE IV (DC) General appearance: alert, awake Neck: full range of motion Cardiovascular: normal capillary refill, normal heart sounds, regular rate rhythm Respiratory: aerating well, clear to auscultation, symmetric expansion, no distress Abdomen: non-tender, normal bowel sounds, soft, no distention Neuro/DEMURRAGE AGENT: alert, oriented X 3 Results Findings/Data: Laboratory Tests: 07/12 07/12 07/12 1356 1232 0834 Chemistry POC Glucose (70 - 110 MG/DL) 164 H Coagulation Activated Coag Time (74 - 137 SEC) 119 161 H Diagnosis, Assessment Plan Free Text A P: 68-year-old female with a past medical history of type 1 diabetes from the age of 46 years old, end-stage renal disease, on dialysis since July 2022, hypertension who presented to her research epidemiologist for evaluation of bilateral nonhealing ulcerations of her bilateral heels for the past 3 months, and shortness of breath with exertion. Left heart catheterization showed significant for severe three-vessel coronary artery disease with severe bilateral occluded SFAs of the lower extremity. Issues as below. Severe three-vessel CAD Severe peripheral vascular disease Diabetes mellitus End-stage renal failure on hemodialysis Nonhealing bilateral heel ulcerations Hypertension Hyperlipidemia CHF Documented EF 20-25% in the outpatient setting 04/05 8. Mitral valve regurgitation Noted to be severe on echocardiogram from March 2023 in the outpatient setting Plan plan and recommendations Patient admitted into medicine Vital signs every 4 Patient Antiplatelets and statin per cardiology Seen by vascular surgery" CT surgery. Nephrology for hemodialysis. Will do basic lab work include CBC BMP now. Patient is not having significant hypoxia at this time DVT prophylaxis Restart home medications Discussed management plan in detail with patient's family. at 1609 RPT #:[id number] END OF REPORT [facility] 2023-07-12 13:43:00 [facility] ([facility]) Cardiology Consultation REPORT#:[id number] REPORT STATUS: Signed DATE:07/12/23 TIME: 1343 PATIENT: JOSEPH ROWLEY UNIT #: [id number] ROOM/BED: [place] [address] : 57 AGE: 68 SEX: F ATTEND: Tanvir Prasad MD ADM AUTHOR: Yue Barragan AGACNP * ALL edits or amendments must be made on the electronic/computer document * Yue Barragan 07/12/23 1343: History of Present Illness HPI Requesting Clinician: Dr. Grover Reason for consult: CAD, PAD, CHF Chief complaint: Generalized weaknessa and nonhealing left foot ulcer PCP: PCP: Benito Nugent MD HPI: 68 YO female with MHx of IDDM on [...] supplemented by niece who is the MPOA. Hx Obtained From Patient, Family (MPOA - niece) History - Adult longitudinal Additional medical history: 1. IDDM - on insulin pump 2. Hypertension 3. ESRD on HD 4. Nonhealing foot ulcers 5. Severe cardiomyopathy 6. Severe MR Family history: Denies: CAD < 40 yrs old. Alcohol use: Denies EtOH use Drug use: Denies recreational drugs Smoking status for patients 13 years old or older: Former Smoker Home medications: Home Medications: BUMETANIDE (BUMEX) 2 MG PO BID ASPIRIN EC (ECOTRIN) 81 MG PO DAILY MIDODRINE (PROAMATINE) 5 MG PO TID ATORVASTATIN (LIPITOR) 40 MG PO BEDTIME FAMOTIDINE (PEPCID) 40 MG PO BEDTIME [INSULIN PUMP] Allergies: Coded Allergies: Sulfa (Sulfonamide Antibiotics) (Severe, rash 07/11/23) codeine (Intermediate, NAUSEA 07/11/23) Review of Systems Constitutional: generalized weakness. Respiratory: Denies: SOB. Cardiovascular: Denies: chest pain. GI: Denies: abdominal pain, nausea, vomiting. : Denies: dysuria. Musculoskeletal: extremity pain. Neuro: Denies: dizziness. Objective General VS/I O: 24 hour I O ending at 0700: 07/12 0700 07/11 1900 Intake Total Output Total Balance Patient 57.273 kg Weight Weight Standing scale Measurement Method PATIENT WEIGHT: Weight (lb): 126 Weight (oz): 4.25 Weight (kg): 57.273 Medications: Active Meds + DC'd Last 24 Hrs Aspirin (ASPIRIN) 81 MG DAILY PO Midodrine [...] Sodium Chloride (SODIUM CHLORIDE 0.9%) 1,000 ML .[id number] IV Sodium Chloride (SODIUM CHLORIDE 0.9%) 500 ML ASDIR PRN IV Heparin Sodium/Sodium Chloride (HEPARIN 1,000 UNITS/NS 500ML) 500 ML .STK- MED ONE IV (DC) Lidocaine HCl (LIDOCAINE HCL/PF) [...] (ISOPTIN) 0 .STK-MED ONE IV (DC) Physical Exam General appearance: alert, awake, oriented, no acute distress, pleasant, conversational Neck: non-tender, no JVD Cardiovascular: CV assessment: regular rate and rhythm Murmur assessment: heart murmur Respiratory: clear to auscultation, no distress Abdomen: soft, non-tender, normal bowel sounds, no distention Genitourinary: no flank pain, no urinary catheter Lower extremity: LE assessment: abnormal pedal pulse, abnormal peripheral pulse Musculoskeletal: normal inspection Neuro/DEMURRAGE AGENT: alert, oriented X 3, normal speech Skin: right heel ulcer Ulcer: Type/cause: diabetic (right heel ulcer), arterial Psychiatry: normal affect, normal mood Results Findings/Data: Laboratory Tests 07/12 0834 Chemistry POC Glucose (70 - 110 MG/DL) 164 H Laboratory Tests 07/12 07/12 1356 1232 Coagulation Activated Coag Time (74 - 137 SEC) 119 161 H Results: labs reviewed, vital signs reviewed, rhythm personally rev'd Telemetry Interpretation: sinus rhythm Diagnosis, Assessment Plan Problem List/A P: 1. HFrEF (heart failure with reduced ejection fraction) 2. Coronary artery disease 3. ESRD (end stage renal disease) on dialysis 4. Mitral regurgitation 5. PAD (peripheral artery disease) Plan discussed with: patient, spouse/partner, healthcare power of atty, collaborating MD, consultants (nephrology), nurse Free Text DxA P Notes Free Text DxA P Notes: 68 YO female with MHx of IDDM on [...] niece who is the MPOA. 1. Multivessel CAD * CTS consult for CABG plus MVR * Aspirin, statin 2. Severe PAD with nonhealing foot ulcer * Vascular surgery consultation 3. Mitral regurgitation * CTS eval for MVR 4. Ischemic cardiomyopathy/HFrEF * does not appear volume overloaded on exam * volume management per HD * on midodrine d/t chronic hypotension * will add ACEi or ARB, and BB if BP can handle it 5. ESRD - on HD * nephrology consult 6. IDDM * per primary team Appreciate the referral. MDM by Dr. Pak. Kimberly Pak 07/15/23 1706: Attestations Physician Attestation Agree w/findings plan: I have seen and examined the pt, I Agree with the findings and plan as documented by Yue Barragan. at 1528 at 1706 RPT #:[id number] END OF REPORT [facility] 2023-07-12 12:54:00 [facility] ([facility] Cardiothoracic Surgery Consult REPORT#:[id number] REPORT STATUS: Signed DATE:07/12/23 TIME: 1254 PATIENT: JOSEPH ROWLEY UNIT #: [id number] ROOM/BED: [place] [address] : 57 AGE: 68 SEX: F ATTEND: Tanvir Prasad MD ADM AUTHOR: Trudy Colindres Physic * ALL edits or amendments must be made on the electronic/computer document * History of Present Illness HPI Chief complaint: CAD, PVD nonhealing lower extremity ulcers Shortness of breath, fatigue Requesting Clinician Dr Grover HPI: This is a very pleasant 68-year-old female with a past medical history of type 1 diabetes from the age of 46 years old, end-stage renal disease, on dialysis since July 2022, hypertension who presented to her research epidemiologist for evaluation of bilateral nonhealing ulcerations of her bilateral heels for the past 3 months, and shortness of breath with exertion. Her last echocardiogram was completed with her research epidemiologist showing an EF 20-25% with mild LVH, severe global hypokinesis, mildly dilated left atrium with moderate aortic sclerosis without stenosis, mitral valve leaflets mildly thickened with severe MR, mild to moderate TR, moderate pulmonary hypertension with an RV systolic pressure 62 mmHg. Patient underwent left heart catheterization today and was found to have severe three-vessel coronary artery disease, with severe bilateral occluded SFAs of the lower extremity. CV surgery consulted for evaluation for coronary artery bypass graft surgery History Smoking status for patients 13 years old or older: Never Smoker Allergies: Coded Allergies: Sulfa (Sulfonamide Antibiotics) (Severe, rash 07/11/23) codeine (Intermediate, NAUSEA 07/11/23) Review of Systems Free Text ROS Notes Free Text ROS Notes: Constitutional: Negative for fever, chills, weight loss Skin positive for bilateral heel ulcers HEENT: Denies hearing loss denies any ear ringing denies any earache denies any sore throat denies any throat pain Respiratory: Positive for shortness of breath with exertion Cardiac: Denies chest pain, denies palpitations denies orthopnea GI: Denies constipation denies diarrhea : Denies hematuria denies dysuria denies flank pain Musculoskeletal: Denies any joint pain denies any joint swelling denies any myalgia Hematologic: Denies any easy bruising, denies any bleeding Endocrine: Positive for type 1 diabetes since the age of 6 Neurologic: Denies any lightheaded denies any headache denies any confusion denies any dizziness Objective Physical Exam VS/I O: Last Documented: Result Date Time Pulse Ox 100 07/11 1111 B/P 127/58 07/11 1111 Temp 97.5 07/11 1111 Pulse 72 07/11 1111 24 hour I O ending at 0700: 07/12 0700 07/11 1900 Intake Total Output Total Balance Patient 57.273 kg Weight Weight Standing scale Measurement Method PATIENT WEIGHT: Weight (lb): 126 Weight (oz): 4.25 Weight (kg): 57.273 General: well nourished, well groomed, no acute distress. HEENT: conjunctiva clear, extraocular movement intact, PERRLA, Neck: no, JVD, trachea midline, no, lymphadenopathy, neck supple, normal ROM. Respiratory: Clear to auscultation, no distress. Cardiovascular: regular rate and rhythm, S1, S2, Abdomen: Soft, non tender. No rebound. No guarding Extremities: Bilateral heel dressing in place Musculoskeletal: Full range of motion, no CVA tenderness, no muscle spasm Skin: warm, dry, no, lesions, rash. Neurologic: Alert and oriented x3. Psychiatric: affect and demeanor normal Diagnosis, Assessment Plan Free Text A P: This is a very pleasant 68-year-old female with a past medical history of type 1 diabetes from the age of 46 years old, end-stage renal disease, on dialysis since July 2022, hypertension who presented to her research epidemiologist for evaluation of bilateral nonhealing ulcerations of her bilateral heels for the past 3 months, and shortness of breath with exertion. Her last echocardiogram was completed with her research epidemiologist showing an EF 20-25% with mild LVH, severe global hypokinesis, mildly dilated left atrium with moderate aortic sclerosis without stenosis, mitral valve leaflets mildly thickened with severe MR, mild to moderate TR, moderate pulmonary hypertension with an RV systolic pressure 62 mmHg. Patient underwent left heart catheterization today and was found to have severe three-vessel coronary artery disease, with severe bilateral occluded SFAs of the lower extremity. CV surgery consulted for evaluation for coronary artery bypass graft surgery Assessment/plan 1. Severe three-vessel CAD 2. Type I diabetic 3. Severe peripheral vascular disease 4. Nonhealing bilateral heel ulcerations 5. Hypertension 6. Hyperlipidemia 7. CHF Documented EF 20-25% in the outpatient setting 04/05 8. Mitral valve regurgitation Noted to be severe on echocardiogram from March 2023 in the outpatient setting Patient with severe multivessel CAD. Patient will be worked up for CAD, Further recs to follow. Thank you for this consult. at [phone] at [phone] RPT #:[id number] END OF REPORT [facility] 2023-07-11 11:12:00 [id number] [place] [address] PATIENT NAME: JOSEPH ROWLEY ADMIT DATE: 07/12/23 ACCOUNT NO: [id number] ROOM NO: [facility] AGE: 68 REPORT TYPE: eELECTROCARDIOGRAM REPORT SEX: F ADMITTING PHYSICIAN:Tanvir Prasad MD ATTENDING PHYSICIAN:Tanvir Prasad MD Order: [id number] Test Reason : PRE OP Test Date/Time Stamp: TueJul 11 2023 11:12:24 Blood Pressure : / mmHG Vent. Rate : 078 BPM Atrial Rate : 078 BPM P-R Int : 136 ms QRS Dur : 084 ms QT Int : 348 ms P-R-T Axes : 072 073 240 degrees QTc Int : 396 ms Normal sinus rhythm Septal infarct , age undetermined ST and T wave abnormality, consider inferolateral ischemia Abnormal ECG No previous ECGs available Confirmed by FAREED HEARN MD ([id number]) on 07/12/2023 1:45:28 PM Referred By: Jaxson Grover Confirmed by:FAREED HEARN MD at 7516 PATIENT NAME: JOSEPH ROWLEY [facility]
--- NOTE | 2024-07-09 11:59 | RAD REPORT ---
EXAM DESCRIPTION: CT - Head Brain Wo Cont - 07/09/2024 11:23 am CLINICAL HISTORY: MENTAL STATUS CHANGE COMPARISON: Head C Spine Cap Wo Con dated 03/26/2024 TECHNIQUE: Noncontrast head CT images were obtained without IV contrast. Multiplanar reformats were generated and reviewed. All CT scans are performed using dose optimization technique as appropriate and may include automated exposure control or mA/KV adjustment according to patient size. FINDINGS: No intracranial hemorrhage, mass, or edema. Midline structures are unremarkable. Mild diffuse parenchymal volume loss, with stable ventricular caliber. Cormier-white matter differentiation is preserved, without evidence of acute infarct. No abnormal extra- axial fluid collections. Mastoid air cells are well aerated. Right Maxillary sinus near complete opacification, stable No acute bony findings. IMPRESSION: No evidence of an acute intracranial process.
[2024-07-09 12:31] LABS: Absolute Basophils 0.1 K/uL (0-0.5); Absolute Lymphocytes (CBC) 1.9 K/uL (0.7-4.9); Absolute Monocytes 1.2 K/uL (0.1-1.3); Absolute Neutrophil 12.5 K/uL (1.8-8.0); Basophils % 0.6 % (0-1.3); Eosinophils % 0.3 % (0-4.4); Hematocrit 31.2 % (36.0-45.0); Hemoglobin 9.5 g/dL (12.0-15.0); Lymphocytes % 11.8 % (15.3-44.8); MCH 31.4 pg (27.0-35.0); MCHC 30.4 g/dL (32.0-36.0); MCV 103.4 fL (80-100); MPV 8.7 fL (7.6-11.3); Monocytes % 7.5 % (3.3-12.3); Neutrophils % 79.8 % (41.7-73.7); Platelets 512 thou/uL (152-406); RBC Red Blood Cell Count 3.02 M/uL (3.86-4.86); Red Cell Distribution Width 17.1 % (12.1-15.2)
--- NOTE | 2024-07-09 12:32 | RAD REPORT ---
EXAM DESCRIPTION: RADChest Single View07/09/2024 12:23 pm CLINICAL HISTORY: COUGH COMPARISON: Chest Pa And Lat (2 Views) dated 06/21/2023; Chest Single View dated 02/13/2023; Chest Singl e View dated 02/11/2023; Chest Single View dated 02/09/2023 TECHNIQUE: Portable AP view of the chest. FINDINGS: Right IJ dialysis catheter unchanged in position. Left subclavian stent present. Bibasilar mild atelectasis. Developing small patchy right supradiaphragmatic opacity. No pneumothorax or effu mayda. The cardiomediastinal contours are unremarkable. IMPRESSION: Developing patchy right basilar airspace opacity, may reflect early pneumonia.
[2024-07-09 12:44] LABS: Specific Gravity 1.014 (1.005-1.030); Urine Bacteria 20-50 /HPF (<20); Urine Bilirubin NEGATIVE (Negative); Urine Blood Trace (Negative); Urine Clarity Extremely Turbid (Clear); Urine Color Yellow (Yellow); Urine Culture Reflex Order REFLEXED; Urine Glucose NEGATIVE (Negative); Urine Ketones NEGATIVE (Negative); Urine Microscopic Reflex YN ORDER UMIC; Urine Mucus Slight /HPF (None Seen); Urine Nitrite NEGATIVE (Negative); Urine Protein TRACE (Negative); Urine Urobilinogen 1+ (Normal); Urine WBC >50 /HPF (<5); Urine pH 5.5 (5.0-7.0)
[2024-07-09 12:45] LABS: PT Prothrombin Time 21.3 SECONDS (9.4-12.5); PTT, Activated Partial Thromb 35.5 SECONDS (24.3-36.9); Protime INR 1.94
[2024-07-09 12:55] LABS: Albumin 2.2 g/dL (3.4-5.0); Albumin/Globulin Ratio 0.5 (1.1-1.8); Alkaline Phosphatase 197 U/L (45-117); Anion Gap 12.2 mEq/L (5.0-15.0); BUN Blood Urea Nitrogen 52 mg/dL (7-18); Bicarbonate 24 mEq/L (21-32); Bilirubin Total 0.7 mg/dL (0.2-1.0); Globulin 4.2 g/dL (2.3-3.5); Glomerular Filtration Rate 8 ml/min (=/>90); Glucose Level 63 mg/dL (74-106); Potassium 4.2 mEq/L (3.5-5.1); Protein, Total 6.4 g/dL (6.4-8.2); Sodium Level 136 mEq/L (136-145); Troponin High Sensitivity 42.4 pg/mL (<58.9)
[2024-07-09 12:57] LABS: ALT/SGPT < 14 U/L (13-56); AST/SGOT < 10 U/L (15-37)
[2024-07-09 13:12] LABS: SARS-CoV-2 Antigen CONTROL BLUE LINE VIS/BG OK; SARS-CoV-2 Antigen Rapid Res Negative (Negative)
--- NOTE | 2024-07-09 13:24 | ER ---
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 Coronavirus screen: At this time, the client does not indicate any symptoms associated with coronavirus-19. Ebola Screen: No symptoms or risks identified at this time. Initial Sepsis Screen: Does the patient meet any 2 criteria? No. Patient's initial sepsis screen is negative. Does the patient have a suspected source of infection? No. Patient's initial sepsis screen is negative. Risk Assessment: Do you want to hurt yourself or someone else? Patient reports no desire to harm self or others. Onset of symptoms was July 02, 2024. 10:36 Method Of Arrival: Wheelchair iw 10:36 Acuity: DAVID 3 iw Historical: - Allergies: 10:38 Codeine; iw 10:38 Sulfa (Sulfonamide Antibiotics); iw - PMHx: 10:38 diabetes mellitus; End stage renal disease; Hypercholesterolemia; Hypertensive disorder;iw 10:38 dialysis; iw - PSHx: 10:38 cardiac stent; stents in legs; fistula left arm; iw - Immunization history:: Adult Immunizations up to date. - Infectious Disease History:: Denies. - Social history:: Smoking status: Patient/guardian denies using tobacco, but has a distant history of tobacco abuse. Screenin:25 [facility] ED Fall Risk Assessment (Adult) History of falling in the last 3 months, kj2 including since admission No falls in past 3 months (0 pts) Confusion or Disorientation Yes (5 pts) Intoxicated or Sedated No (0 pts) Impaired Gait Yes (1 pt) Mobility Assist Device Used Yes (1 pt) Altered Elimination Yes (1 pt) Score/Fall Risk Level 3 or more points = High Risk Maintained a safe environment, Educated pt \T\ family on fall prevention, incl call for assistance when getting out of bed, Hourly rounding (assess needs \T\ fall precautionary measures) done, Utilized family, sitter, or virtual training associate as indicated. Abuse screen: Denies threats or abuse. Denies injuries from another. Nutritional screening: No deficits noted. Tuberculosis screening: No symptoms or risk factors identified. Assessment: 11:04 General: Appears in no apparent distress. Behavior is calm. Pain: Complains of pain in kj2 generalized Pain currently is 4 out of 10 on a pain scale. Neuro: Level of Consciousness is awake, patient does not respond to most questions asked by nurse. Cardiovascular: Patient's skin is warm and dry. Respiratory: Airway is patent Respiratory effort is even, unlabored. GI: No deficits noted. : Reports patient is on hemodialysis. Derm: patient has a pressure ulcer on each heel. 11:23 Reassessment: patient taken to [facility]. [facility] 11:55 Reassessment: patient refuses RN to perform EKG, IV or assist with putting on hospital kj2 gown. SABRINA Pinedo notified and visit with patient and to educate on the importance of interventions. Patient continues to refuse care at this time. 13:17 Reassessment: Patient appears in no apparent distress at this time. Patient and/or 2 family updated on plan of care and expected duration. Pain level reassessed. Patient is alert, oriented x 3, equal unlabored respirations, skin warm/dry/pink. patient continues to refuse cardiac monitoring and vital signs. 14:08 Reassessment: Patient appears in no apparent distress at this time. No changes from [facility] previously documented assessment. Patient is alert, oriented x 3, equal unlabored respirations, skin warm/dry/pink. 14:10 Reassessment: RN notified SABRINA Pinedo only 1 set of blood cultures collected due to kj2 patient is a hard stick. No new orders at this time. 17:14 Reassessment: RN called report, unit secetry said to call back in 10 minutes the nurse perla is in a rapid response. 18:41 Reassessment: Pt's BGL noted be 39. Pt medicated per MAR and given food. Pt awake and cm10 alert and speaking with on phone. Vital Signs: 10:36 BP 100 / 51; Pulse 89; Resp 14; Temp 97(TE); Pulse Ox 97% on R/A; Weight 64.41 kg; iw Height 4 ft. 8 in. ; 14:03 BP 111 / 58; Pulse 84; Resp 15; Pulse Ox 100% on R/A; Weight 61.23 kg; Height 4 ft. 8 kj2 in. ; 15:10 BP 106 / 56; Pulse 76; Resp 20; Pulse Ox 100% on R/A; kj2 16:10 BP 96 / 56; Pulse 72; Resp 18; Pulse Ox 100% on R/A; kj2 17:16 BP 103 / 53; Pulse 75; Resp 18; Pulse Ox 100% on R/A; kj2 18:00 BP 108 / 70; Pulse 78; Resp 19; Pulse Ox 100% on R/A; kj2 14:03 Body Mass Index 30.27 (61.23 kg, 142.24 cm) kj2 ED Course: 10:15 Patient arrived in ED. im 10:17 Mj Coley PA is PHCP. cp 10:17 Robin Ellis MD is Attending Physician. cp 10:38 Triage completed. iw 10:38 Arm band placed on. iw 11:03 Sonam Maki, EMMA is Primary Nurse. kj2 11:25 CT Head Brain wo Cont In Process Unspecified. EDMS 11:26 Patient has correct armband on for positive identification. Bed in low position. Call kj2 light in reach. Adult w/ patient. Provided Education on: call light, fall precautions. 12:15 Initial lab(s) drawn, by me, sent to lab. First set of blood cultures drawn by me. cm10 12:18 Inserted saline lock: 22 gauge in right antecubital area, using aseptic technique. cm10 Blood collected. Flushed with 10 mL NS. 12:25 Chest Single View XRAY In Process Unspecified. EDMS 13:21 Juan Luis Nugent MD is Private Physician. cp 13:22 Juan Luis Nugent MD is Hospitalizing Provider. cp 14:04 No provider procedures requiring assistance completed. kj2 14:08 Repositioned patient. kj2 15:26 UPPER EXTREMITY VENOUS UNILATE In Process Unspecified. EDMS 15:[address] [facility]. bd 16:59 pt accepted in transfer to [facility] rm [address] Hasan, admin approval given by penny Cormier RN. 17:57 pt to be transported by [facility]. bd 18:41 Report given to Wade with [facility]. cm10 18:48 Patient transferred, IV remains in place. kj2 Administered Medications: 14:02 Drug: D10 in Water IVP 250 ml IVP once Route: IVP; Site: right antecubital; kj2 15:03 Follow up: Response: No adverse reaction kj2 14:25 Drug: Zithromax IVPB 500 mg IVPB once over 1 hrs; mix in 250 mL NS Route: IVPB; Infused kj2 Over: 1 hrs; Site: right antecubital; 15:30 Follow up: Response: No adverse reaction; IV Status: Completed infusion; IV Intake: cm10 250ml 15:50 Drug: Rocephin IV 1 grams IV at calculated rate once; Given slow IV push per pharmacy cm10 instructions Route: IV; Rate: calculated rate; Site: right antecubital; 15:57 Follow up: Response: No adverse reaction; IV Status: Completed infusion; IV Intake: [id number] 15:54 Drug: vancoMYCIN IVPB 1 grams IVPB once over 2 hrs Route: IVPB; Infused Over: 2 hrs; kj2 Site: right antecubital; 18:40 Follow up: Response: No adverse reaction; IV Status: Completed infusion; IV Intake: cm10 250ml 18:40 Drug: D10 in Water IVP 250 ml IVP once Route: IVP; Site: right antecubital; cm10 18:48 Follow up: Response: No adverse reaction kj2 Medication: 11:26 VIS not applicable for this client. kj2 Intake: 15:30 IV: 250ml; Total: 250ml. cm10 15:57 IV: 10ml; Total: 260ml. cm10 18:40 IV: 250ml; Total: 510ml. cm10 Outcome: 13:23 Decision to Hospitalize by Provider. cp 14:30 ER care complete, transfer ordered by . cp 18:49 Transferred by ground EMS [facility]. kj2 18:49 Condition: good 18:49 Instructed on the need for transfer, 18:49 Patient left the ED. kj2 Addendum: 07/15/2024 07:25 Addendum: Culture Results: Positive urine culture. Positive blood culture. [facility]ed [facility] at [phone]. Signatures: Dispatcher [employer] EDMS Kacy Rod Irene, RN RN iw Mj Coley PA PA cp Botello, Elizabeth eb Mendoza, Itzel im Martinez, Clarissa, RN RN cm10 Sonam Maki RN RN kj2 Corrections: (The following items were deleted from the chart) 07/09 10:41 10:36 BP 100 / 51; Pulse 89bpm; Resp 14bpm; Pulse Ox 97% RA; 64.41 kg; Height 4 ft. 8 iw in.; BMI: 31.8; iw 15:12 14:58 Zithromax IVPB 500 mg IVPB in right antecubital over 1 hrs kj2 kj2 15:13 15:12 Rocephin IV 1 grams IV at calculated rate in right antecubital kj2 kj2 18:44 18:41 Reassessment: Pt's BGL noted be 39. Pt medicated per JAN and given food. cm10 cm10
--- NOTE | 2024-07-09 13:24 | EDPHYS ---
Physician Documentation [facility] Name: Josselin Rowley Age: 69 yrs Sex: Female : 1955 Arrival Date: 07/09/2024 Time: 10:13 Bed 5 Private MD: Juan Luis Nugent C ED Physician Robin Ellis HPI: 07/09 10:45 This 69 yrs old Female presents to ER via Wheelchair with complaints of Altered Mental cp Status. 10:45 The patient presents with decreased mental status. Onset: The symptoms/episode cp began/occurred gradually, 2 week(s) ago, and became worse today. 10:45 Associated signs and symptoms: Pertinent positives: confusion, Pertinent negatives: cp abdominal pain, chest pain, diarrhea, headache, vomiting. 10:45 Patient's baseline: Neuro: alert and fully oriented, Motor: no deficits, Speech: normal.cp Historical: - Allergies: 10:38 Codeine; iw 10:38 Sulfa (Sulfonamide Antibiotics); iw - PMHx: 10:38 diabetes mellitus; End stage renal disease; Hypercholesterolemia; Hypertensive disorder;iw 10:38 dialysis; iw - PSHx: 10:38 cardiac stent; stents in legs; fistula left arm; iw - Immunization history:: Adult Immunizations up to date. - Infectious Disease History:: Denies. - Social history:: Smoking status: Patient/guardian denies using tobacco, but has a distant history of tobacco abuse. ROS: 10:50 Constitutional: Positive for poor PO intake, Negative for body aches, chills, fever, cp 10:50 Cardiovascular: Negative for chest pain, cp 10:50 Respiratory: Positive for cough, 10:50 Abdomen/GI: Negative for abdominal pain, vomiting, diarrhea, constipation, 10:50 Neuro: Positive for altered mental status, 10:50 Eyes: Negative for injury, pain, redness, and discharge, cp 10:50 ENT: Negative for drainage from ear(s), ear pain, sore throat, difficulty swallowing, cp difficulty handling secretions, 10:50 All other systems are negative, Exam: 10:55 Constitutional: The patient appears in no acute distress, non-diaphoretic, non-toxic, cp well developed, well nourished, lethargic, 10:55 Head/Face: Normocephalic, atraumatic. cp 10:55 Eyes: Periorbital structures: appear normal, Pupils: equal, round, and reactive to light and accomodation, Extraocular movements: intact throughout, Conjunctiva: normal, no exudate, no injection, Sclera: no appreciated abnormality, Lids and lashes: appear normal, bilaterally, 10:55 ENT: External ear(s): are unremarkable, Nose: is normal, Mouth: Lips: dry, Oral mucosa: moist, Posterior pharynx: Airway: no evidence of obstruction, patent, 10:55 Neck: ROM/movement: is normal, is supple, without pain, no range of motions limitations, no meningismus, no nuchal rigidity, 10:55 Chest/axilla: Inspection: normal, 10:55 Cardiovascular: Rate: normal, Rhythm: regular, Edema: ankle edema, JVD: is not appreciated, 10:55 Respiratory: the patient does not display signs of respiratory distress, Respirations: normal, no use of accessory muscles, no retractions, labored breathing, is not present, Breath sounds: decreased breath sounds, that are mild, throughout, stridor, is not appreciated, wheezing: is not appreciated, 10:55 Abdomen/GI: Inspection: abdomen appears normal, Palpation: abdomen is soft and non-tender, in all quadrants, 10:55 Back: pain, is absent, ROM is normal, 10:55 Musculoskeletal/extremity: dialysis fistula noted left upper arm with mild dark, bloody drainage, mild erythema of skin. 10:55 Neuro: Orientation: to person, situation, Mentation: able to follow commands, slow to respond, Motor: moves all fours, Sensation: no obvious gross deficits, 12:37 ECG was reviewed by the Attending Physician. cp Vital Signs: 10:36 BP 100 / 51; Pulse 89; Resp 14; Temp 97(TE); Pulse Ox 97% on R/A; Weight 64.41 kg; iw Height 4 ft. 8 in. ; 14:03 BP 111 / 58; Pulse 84; Resp 15; Pulse Ox 100% on R/A; Weight 61.23 kg; Height 4 ft. 8 kj2 in. ; 15:10 BP 106 / 56; Pulse 76; Resp 20; Pulse Ox 100% on R/A; kj2 16:10 BP 96 / 56; Pulse 72; Resp 18; Pulse Ox 100% on R/A; kj2 17:16 BP 103 / 53; Pulse 75; Resp 18; Pulse Ox 100% on R/A; kj2 18:00 BP 108 / 70; Pulse 78; Resp 19; Pulse Ox 100% on R/A; kj2 14:03 Body Mass Index 30.27 (61.23 kg, 142.24 cm) kj2 MDM: 10:44 Patient medically screened. cp 12:00 Differential Diagnosis: CVA, electrolyte abnormality, hypoglycemia, intracranial bleed, cp meningitis, pneumonia, sepsis. 14:40 Data reviewed: vital signs, nurses notes, lab test result(s), EKG, radiologic studies, cp CT scan, plain films. 14:40 Management of patient was discussed with the following: Dental Assistant: DR Grisel Solano, cp independent freight agent, sees patient in ED and requests surgical consult for concern of infected fistula. 14:40 Management of patient was discussed with the following: Dental Assistant: DR Cagle who cp recommends transfer for vascular consult. 07/09 10:47 Order name: Blood Culture Adult (2) 07/09 10:47 Order name: CBC with Diff; Complete Time: 13:17 07/09 13:17 Interpretation: Normal except: WBC 15.70; RBC 3.02; HGB 9.5; HCT 31.2; MCV 103.4; MCHC cp 30.4; PLT 512; RDW 17.1; MICH% 79.8; LYM% 11.8; NEUT A 12.5. 07/09 10:47 Order name: CMP; Complete Time: 13:17 07/09 13:17 Interpretation: Normal except: GLUC 63; BUN 52; CRE 5.44; GFR 8; AST < 10; ALK 197; ALB cp 2.2; GLOB 4.2; A/G 0.5. 07/09 10:47 Order name: Lactate w/ 2H reflex if indic.; Complete Time: 13:17 07/09 10:47 Order name: Protime (+inr); Complete Time: 13:17 07/09 10:47 Order name: Ptt, Activated; Complete Time: 13:17 07/09 10:47 Order name: Urinalysis w/ reflexes; Complete Time: 13:17 07/09 16:07 Interpretation: Normal except: [facility] Extremely Turbid; UBLD Trace; UPROT TRACE; UUROB cp 1+; UESTR 500; UWBC >50. 07/09 10:47 Order name: SARS RAPID; Complete Time: 13:17 07/09 10:47 Order name: Influenza Screen (a \T\ B); Complete Time: 13:17 07/09 10:47 Order name: Troponin High Sensitivity; Complete Time: 13:17 07/09 12:48 Order name: Urine Culture EDLA 07/09 17:02 Order name: Glucose, Ancillary Testing EDLA 07/09 10:47 Order name: Chest Single View XRAY; Complete Time: 13:17 07/09 10:47 Order name: CT Head Brain wo Cont; Complete Time: 12:01 07/09 12:01 Interpretation: Report reviewed. 07/09 14:44 Order name: UPPER EXTREMITY VENOUS UNILATE; Complete Time: 16:05 EDLA 07/09 10:47 Order name: Accucheck 07/09 10:47 Order name: Cardiac monitoring; Complete Time: 14:05 07/09 10:47 Order name: EKG - Nurse/Tech; Complete Time: 14:05 07/09 10:47 Order name: IV Saline Lock - Large Bore; Complete Time: 13:16 07/09 10:47 Order name: Labs collected and sent; Complete Time: 13:16 07/09 10:47 Order name: O2 Per Protocol 07/09 10:47 Order name: O2 Sat Monitoring; Complete Time: 14:05 07/09 10:47 Order name: Vital Signs; Complete Time: 14:05 cp EC:37 Rate is 85 beats/min. Rhythm is regular. CO interval is normal. QRS interval is normal. cp QT interval is normal. T waves are Inverted in lead I. Interpreted by me. Reviewed by me. Administered Medications: 14:02 Drug: D10 in Water IVP 250 ml IVP once Route: IVP; Site: right antecubital; kj2 15:03 Follow up: Response: No adverse reaction kj2 14:25 Drug: Zithromax IVPB 500 mg IVPB once over 1 hrs; mix in 250 mL NS Route: IVPB; Infused kj2 Over: 1 hrs; Site: right antecubital; 15:30 Follow up: Response: No adverse reaction; IV Status: Completed infusion; IV Intake: cm10 250ml 15:50 Drug: Rocephin IV 1 grams IV at calculated rate once; Given slow IV push per pharmacy cm10 instructions Route: IV; Rate: calculated rate; Site: right antecubital; 15:57 Follow up: Response: No adverse reaction; IV Status: Completed infusion; IV Intake: [id number] 15:54 Drug: vancoMYCIN IVPB 1 grams IVPB once over 2 hrs Route: IVPB; Infused Over: 2 hrs; kj2 Site: right antecubital; 18:40 Follow up: Response: No adverse reaction; IV Status: Completed infusion; IV Intake: cm10 250ml 18:40 Drug: D10 in Water IVP 250 ml IVP once Route: IVP; Site: right antecubital; cm10 18:48 Follow up: Response: No adverse reaction kj2 Disposition Summary: 07/09/24 14:30 Transfer Ordered Notes: Transfer Location: Other Acute Care Facility cp Reason: Higher level of care cp Condition: Stable(07/09/24 14:30) cp Problem: new(07/09/24 14:30) cp Symptoms: have improved(07/09/24 14:30) cp Accepting Physician: DR Grover(07/09/24 18:49) kj2 Diagnosis - Sepsis, unspecified organism cp - Pneumonia, unspecified organism(07/09/24 15:54) cp - UTI/ Urinary tract infection, site not specified(07/09/24 15:54) cp - 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 I did not e c2 personally see the patient or discuss the patient with the CLAYTON. . Signatures: Dispatcher [employer] EDMS Kacy Rod Irene, RN RN iw Page, Corey, PA PA cp Martinez, Clarissa, RN RN cm10 Robin Ellis MD MD ec2 Sonam Maki RN RN kj2 Corrections: (The following items were deleted from the chart) 07/09 10:48 10:48 Chest Single View+RAD.RAD.BRZ ordered. EDMS EDMS 10:48 10:48 Head Brain Wo Cont+CT.RAD.BRZ ordered. EDMS EDMS 14:20 13:23 Telemetry/MedSurg (Inpatient) cp bd 14:20 13:23 cp bd 14:29 13:23 Inpatient Admission cp cp 14:29 13:23 Nugent, A cp cp 14:29 13:23 Stable cp cp 14:29 13:23 new cp cp 14:29 13:23 have improved cp cp 14:29 13:23 Standard cp cp 14:29 13:23 Pneumonia, unspecified organism cp cp 14:29 13:23 UTI/ Urinary tract infection, site not specified cp cp 14:29 14:20 [facility] ER HOLD bd cp 14:29 14:20 ERHOLD- bd cp 14:44 14:38 Extrmty Nonvasular Limited+US.RAD.BRZ ordered. EDMS EDMS 15:54 14:30 Doctor cp cp 16:10 15:54 Doctor cp cp 18:49 16:10 DR Grover cp kj2 07/10 16:16 07/09 10:45 Onset: The symptoms/episode began/occurred gradually, 2 week(s) ago, cp cp
[2024-07-09] MEDS ORDERED: CEFTRIAXONE 1000 MG/VIAL ONE (13:37)
[2024-07-09] MEDS ORDERED: AZITHROMYCIN 500 MG INJ IVPB ONE (13:37)
[2024-07-09] MEDS ORDERED: NA CHLORIDE 0.9% 250 ML ONE ×2 (13:38→15:06)
[2024-07-09] MEDS ORDERED: D10W 250 ML IV ONE ×2 (13:38→18:37)
[2024-07-09] MEDS ORDERED: VANCOMYCIN 1 GM/VIAL ONE (15:05)
--- NOTE | 2024-07-09 15:32 | RAD REPORT ---
EXAM DESCRIPTION: US - UPPER EXTREMITY VENOUS UNILATE - 07/09/2024 3:25 pm CLINICAL HISTORY: left arm swelling. COMPARISON: None. FINDINGS: A fistula is present within the upper arm. It is completely thrombosed with no flow. The visualized arterial flow to the graft patent Grayscale, color and spectral analysis performed on all vessels IMPRESSION: Occlusive thrombus within left arm fistula
[2024-07-09 19:51] VITALS: TEMP 97
[2024-07-09 19:53] VITALS: O2SAT 100
[2024-07-09 19:58] VITALS: BP 108/70
--- NOTE | 2024-07-10 04:05 | CON ---
Date of Consultation: 07/09/2024 Chief Complaint: Altered mental status. History Of Present Illness: The patient has multiple medical problems including history of end-stage renal disease, diabetes mellitus, diabetic kidney disease, peripheral vascular disease, hypertensive heart and kidney disease, anemia and CKD. Recently, the patient underwent IV access placement in th e left upper extremity. She was seen by cardiovascular team outpatient and procedure was done outpat ient. The patient was referred to emergency room from dialysis because on presentation to dialysis [facility] for routine treatment the patient was confused, lethargic, and had altered mental status. She w as referred to the hospital for further evaluation and treatment. The patient underwent workup for s epsis and she was found to have pneumonia as well as urinary tract infection. The left upper extremi ty AV fistula, which was recently placed was evaluated with a Doppler, which visualized clotted throm bosed AV fistula and surgical wound was inflamed and there was subcutaneous hematoma present with deh iscence of the surgical wound. The patient was complaining of generalized weakness. She denied feve r or chills. Denied cough or hemoptysis. Review of Systems: General: Denies fever, chills. Eyes: Denies new vision changes. Ears, Nose, Mouth, and Throat: Denies sore throat, earaches. Respiratory: Has some shortness of breath. Denies cough. Cardiovascular: Denies syncope. Denies chest pain, palpitations, irregular heartbeat. GI: Denies nausea, vomiting. : Denies dysuria, hematuria. All other systems reviewed and all are negative. Past Medical History: Diabetes mellitus, end-stage renal disease, hypercholesterolemia, hypertensive heart and kidney disease dialysis 3 times per week on Tuesday, Tuesday, Tuesday; anemia and CKD, freya al osteodystrophy. Allergies: CODEINE, SULFA MEDICATION. Past Surgical History: Creation of the AV fistula, left arm; stent in the legs; cardiac stent, hemod ialysis catheter, tunneled dialysis catheter in the right jugular vein. Social History: Denies tobacco, alcohol, illicit drugs. Family History: Diabetes mellitus and hypertension. Physical Examination: General: The patient is awake, alert, follows commands. Eyes: Anicteric. Sclerae EOMI. Ears, Nose, Mouth And Throat: Oral mucosa moist. No pallor. Neck: Supple. No bruits. Lungs: Diminished breath sounds at the bases. Heart: S1, S2. Abdomen: Soft, benign. Extremities: Left upper extremity dressing in place. There is some old blood present at the surgica l wound. There is no active oozing or drainage. Impression And Plan: 1.Sepsis likely related to infected AV fistula, possible pneumonia and urinary tract infection. The patient received antibiotics and she is on Zithromax, Rocephin, and vancomycin for broad coverage. Blood cultures and urine cultures were obtained and pending anemia. Monitor hemoglobin level. Dieudonne nue MATT. 2.Renal osteodystrophy. Monitor phosphorus level and adjust binders as needed. 3.Urinary tract infection pending urine culture. The patient may need CAT scan to rule out kidney s tone and obstructive uropathy. 4.The patient will continue dialysis as soon as she is cleared by cardiovascular team, although at t his point, we will continue to use a dialysis catheter and dialysis is arranged as soon as possible. Continue dialysis 3 times per week. MARCI/NAN Voice ID: [id number] Report ID: [id number]
--- NOTE | 2024-07-10 12:42 | EKG ---
Test Date: 2024-07-09 Test Time: 12:28:57 Rim Turning Finisher: JOHN MEASUREMENT RESULTS: Intervals: Rate: 85 PA: 128 QRSD: 78 QT: 360 QTc: 428 Grand Cane: P: 54 PA: 128 QRS: 54 T: 159 INTERPRETIVE STATEMENTS: Sinus rhythm with premature supraventricular complexes Otherwise normal ECG Compared to ECG 06/21/2023 11:55:40 Atrial premature complex(es) now present ST (T wave) deviation no longer present Possible ischemia no longer present Electronically Signed On 07-10-24 12:38:52 CDT by Jorgito Baker
== END 2024-07-09 18:49 ==
LOC: ER 10:13
DX: J18.9 Pneumonia, unspecified organism (principal); A41.9 Sepsis, unspecified organism; N39.0 Urinary tract infection, site not specified; T82.868A Thrombosis due to vascular prosthetic devices, implants and grafts, initial encounter; E11.22 Type 2 diabetes mellitus with diabetic chronic kidney disease; I12.0 Hypertensive chronic kidney disease with stage 5 chronic kidney disease or end stage renal disease; N18.6 End stage renal disease; Z99.2 Dependence on renal dialysis; Z95.818 Presence of other cardiac implants and grafts; Z11.52 Encounter for screening for COVID-19
CPT/HCPCS: 93005; 87088; 85025; 81001; 87086; 36415; 85610; 82947 ×2; 83605; 85730; 84484; 80053; 87804 ×2; 70450; 71045; 93971; 87811; J7050 ×2; J0696; 87040; 87077; 87186; 87205; 96365; 96366; 96367; 96375; 99285